=== PATIENT | female | born 1965 | race Caucasian/White ===

== ENCOUNTER 2017-05-04 21:43 | Emergency (ER) | payer OTHER ==
[~2017-05-04] VITALS: Ht 160 cm; Wt 85.3 kg
--- OUTSIDE RECORDS SUMMARY | ~2017-05-04 | XMS | Encounter Summary ---
Demographics + + + | Address | [address] | | | [place] [address] | + + + | Home Phone | | + + + | Preferred Language | Unknown | + + + | Marital Status | | + + + | Quaker Affiliation | NON | + + + | Race | White | + + + | Ethnic Group | Not or | + + + Author + + + | Author | [facility] | + + + | Organization | [facility] | + + + | Address | Unknown | + + + | Phone | Unavailable | + + + Support +------+ +---------+ + | Name | Relationship | Address | Phone | +------+ +---------+ + ECON | Unknown | | +------+ +---------+ + ECON | Unknown | | +------+ +---------+ + ECON | Unknown | | +------+ +---------+ + Care Team Providers + +------+-------+ | Care Home Security Professional Name | Role | Phone | + +------+-------+ | Saurav De Los Santos NP | PCP | tel | + +------+-------+ Reason for Visit + + + | Reason | Comments | + + + | Prior Authorization | | | Request | | + + + Encounter Details +--------+ + + + + | Date | Type | Department | Care Team | Description | +--------+ + + + + | 03/06/ | Telephone | Outpatient [facility] | [facility] | Prior Authorization | | 2017 | | [facility] | [address] | Request | | | | [address] | [facility], | | | | | [facility] | [place] [address] | | | | | [place], [place] | | | | | | [address] | | | +--------+ + + + [...]
--- OUTSIDE RECORDS SUMMARY | ~2017-05-04 | XMS | Encounter Summary ---
Demographics + + + | Address | [address] | | | [place] [address] | + + + | Home Phone | | + + + | Preferred Language | Unknown | + + + | Marital Status | | + + + | Evangelical Affiliation | NON | + + + | Race | White | + + + | Ethnic Group | Not or | + + + Author + + + | Author | [facility] | + + + | Organization | [facility] | + + + | Address | [...] Care Team Providers + +------+-------+ | Care Electro Mechanical Assembler Name | Role | Phone | + +------+-------+ | Saurav De Los Santos NP | PCP | tel | + +------+-------+ Reason for Visit + + + | Reason | Comments | + + + | AML - Acute myeloid | | | leukemia | | + + + AUTH/CERT +--------+--------+ + + + + | Status | Reason | Specialty | Diagnoses / | Referred By | Referred To | | | | | Procedures | Contact | Contact | +--------+--------+ + + + + | | | | | | | +--------+--------+ + + + + Encounter Details +--------+ + + + + | Date | Type | Department | Care Team | Description | +--------+ + + + + | 03/02/ | Hospital | [facility] [address] | Danie Parra V, | | | 2017 - | Encounter | [address] | Angela Johnson, | | | | | Road Mailcode: | MD Quinn Higgins | | | 04/01/ | | [id number] | [address] | | | 2017 | | [place], | [place], [place] | | | | | [place] [address] | [address] | | | | | [phone] | [phone] | | | | | | | | | | | | Kay Duarte MD | | | | | | [address] | | | | | | [address] [place], | | | | | | [place] [address] | | | | | | [phone] | | | | | | | | | | | | Naresh Moe, | | | | | | MD [address] | | | | | | [address] | | | | | | [place], [place] | | | | | | [address] | | | | | | [phone] | | | | | | | | | | | | Renea Bell MD | | | | | | Kar Aggarwal, | | | | | | [address] | | | | | | [place], [place] | | | | | | [address] | | | | | | [phone] | | | | | | | | +--------+ + + + [...] + + + as of this encounter Last Filed Vital Signs + + + + | Vital Sign | Reading | Time Taken | + + + + | Blood Pressure | 154/93 | 04/01/2017 2:36 PM PST | + + + + | Pulse | 91 | 04/01/2017 2:36 PM PST | + + + + | Temperature | 36.7 C (98.1 F) | 04/01/2017 2:36 PM PST | + + + + | Respiratory Rate | 16 | 04/01/2017 2:36 PM PST | + + + + | Oxygen Saturation | 95% | 04/01/2017 2:36 PM PST | + + + + | Inhaled Oxygen | - | - | | Concentration | | | + + + + | Weight | 84.2 kg (185 lb 10 | 04/01/2017 4:17 AM PST | | | oz) | | + + + + | Height | 160 cm (5' 3") | 03/02/2017 6:38 PM PDT | + + + + | Body Mass Index | 32.88 | 04/01/2017 4:17 AM PST | + + + + in this encounter Functional Status + + + [...] + + + as of this encounter Discharge Summaries Clarke Aguirre FNP - 04/01/2017 3:08 PM PSTFormatting of this note may be different fro m the original. 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 difficile colitis COPD (chronic obstructive pulmonary disease) Anxiety and depression SUMMARY OF PATIENT'S HOSPITALIZATION Hospital Course: Rhea Hutchison is a 51 yo F with relapsed AML, admitted for FLAG-Arlette + Midostaurin re-inductio n chemotherapy. Her hospital course was complicated by: pancytopenia, fever with pneumonia noted on ID work up, cellulitis, and mild chemotherapy induced nausea. Her counts are recov ering from recent chemotherapy, with an ANC of 490 of day of DC. She will continue daily Fi lgrastim through 04/02/17 and has been scheduled for a recovery BM Bx under sedation on and follow up visit with Dr. Goldberg on 04/09/17. 24 Hour Events/Current Daily Plan: -Relapsed AML: adm for FLAG-Arlette + Midostaurin re-induction, currently day 28. -Pancytopenia d/t chemo: WBC/ANC are recovering. Continue daily Filgrastim through 04/02 (p t to self administer at home). Standard transfusion parameters. Transfused 1 unit ppH today . -Non-Neutropenic Fever/Pneumonia: febrile on 03/02-03/04. Bld cxs negative, but CT chest 03/04 notable for extensive PNA. Received broadsectrum abx, last dose of Zosyn was 03/31. -SWAPNIL: mostly occurs in the morning. Conts Compazine qam. Other antiemetics available PRN -Lytes: standard repletion parameters. HypoK replacements required today. History of Present Illness: Rhea Hutchison is a 51 year old woman with history of COPD, depression, bladder spasms, hypoth yroidism and AML s/p induction 7+3+dasatinib and MiDAC consolidation (Apr 2016) who present s with AML recurrence. She is here with her and reports that she has had increasing diffuse body pains for approximately the past month. She was seen in her oncology clinic on 03/01 where she was noted to have a WBC 103K, up from her previously normal 5K in November. She reports that she has had increasing fatigue, nausea, vomiting, headache and now a sore at t he base of her inferior incisors in her mouth that occasionally bleed. She has also develop ed petechiae across her abdomen. She was admitted to [facility] where CXR was consistent with pulmonary leukostasis. Per Ca reEverywhere he labs were: WBC of 103,6000 (92% blasts) hgb 13.8 Hct 41.8%, Platelet count o f 10,000, Ldh 4427 U/L (ULN 215 U/L), Bun 14 mg/dL, Scr 0.82 mg/dL. She received fluids,hydroxyurea 2g q4hrs, 3L O2 per minute and a platelet transfusion prior to transfer. She reported no fevers but was febrile upon arrival at [facility]. Oncology History (adapted from prior heme/onc notes) Last seen at [facility] Apr 2016 for consolidation therapy but per OSH notes, she has had the fol lowing events: Jan 2016 emergent bone marrow bx: bone marrow biopsy and aspiration at [facility] on February 15, 2016 confirmed acute myelogenous leukemia, diploid, positive for FLT-3 tyrosine kinase domai n mutation (also positive for NPM1, DNMT3A, NRAS, NPM1 and TET2 mutations). Induction chemotherapy with conventional 7+3 cytarabine/idarubicin February 16, 2016 with co ntinuous daily dasatinib (Sprycel) complicated by fungal pneumonia, neutropenic fever, hidra denitis suppurativa, and Clostridium Difficile colitis. Repeat bone marrow biopsy on 2015 (day 28); First complete remission. 1. Cycle#3 MiDaC (1200 mg/m Cytarabine) consolidation at [facility] on May 28, 2016. 2. Cycle#4 MiDaC (1000 mg/m Cytarabine ) consolidation at [facility] on June 25, 2016. 3. Bone Marrow Biopsy and Aspiration July 23, 2016 at the [facility] in [place], [place] specimen # [id number] demonstrated ongoing complete remissio n. Molecular analysis was negative for any residual NPM1 mutation positive cells and negativ e for any FLT-3 mutation positive cells (sensitivity is 1 in 20,000). 4. CBC on December 25, 2016; WBC 5,000, Hgb 14.6 gm/dl, Hct 42.7, Platelet 138,000. 5. MRI of right hip on January 25, 2017 in anticipation of right hip replacement; numerou s subcentimeter round marrow repacing lesions within the visualized lower lumbar spine, pelv is, and femurs. 6. CT Chest/Abdomen/Pelvis on February 06, 2017; 3 cm left thyroid mass, no other suggestion of primary neoplasm. 7. Bone scan February 08, 2017; Normal. 8. PET/CT scan on February 27, 2017; diffuse uptake about the spleen and bone marrow. 9. CBC on March 01, 2017; WBC 103,5000 (92% blasts) Hgb 13.8, Hct 41.8%, Platelet count 1 0,000. [id number] U/L, BUN 14 mg/dL, Scr 0.82 mg/dL. Hospitalization History: Hematology: #Relapsed AML Pertinent Diagnostics: -BM Bx: no BM Bx done on admission as she had many peripheral blasts and requires sedation for biopsies -Peripheral blood flow sent 03/03/17: WBC>100K with ~90% blasts on presentation -Results: Acute myeloid leukemia, see comment -Immunophenotype: variable CD7, CD13, CD33, partial CD34, CD38, CD58, CD117, CD123 and HLA- DR -Leukocytosis with 78% blasts, normocytic anemia, and thrombocytopenia -Comment: Immunophenotypic shift is noted from the prior leukemic blast population. -Cytogenetics: 46,X,t(X;7)(q21;q32)[20] -Genetrails: FLT3 ITD 90%, DNMT3A 46%, and NPM1 44% -Scheduled for a recovery BM Bx under sedation on 04/04/17 Treatment: -Hydrea (03/02-03/05) for leukocytosis -Chemotherapy regimen: received , Flag-Arlette + Midostaurin, started 03/05/17 -Fludarabine 30mg/m2 (60mg) Daily, Days 1-5 -Idarubicin 8mg/m2 (16mg) Daily, Days 1-3 -Cytarabine 2000mg/m2 (4200mg) Daily, Days 1-5 -Midostaurin 50mg twice daily on Days 8-21 -Chemo Day: 28 Transplant: Indicated for transplant with diagnosis of relapsed AML however there may be psychosocial barriers to stem cell transplant. Plan to type sibs in meantime. #Pancytopenia d/t chemo -Antimicrobials as below -See supportive care #Bleeding: epistaxis and bleeding from LUE PICC insertion site (noted on 03/04), likely d/t profound thrombocytopenia: Resolved 03/07 with platelet transfusions, Vit K, and Tranexamic A rocky #Supportive Care: Growth factor: Daily Filgrastim as above per FLAG-Arlette protocol, last dose scheduled for 04/02/17 (pt to self administer) Labs: Continue to check CBC with diff 1-2 times a week Transfusion parameters: -Transfuse PRBCs for HCT <21% if asymptomatic -Transfuse PPH for platelet count <10,000 or sooner PRN s/s active bleeding Cardiovascular: TTE completed 03/04 with EF=70%. #HTN -Norvasc 10 mg daily -Lisinopril 5 mg daily, started 03/21 -Hydralazine PRN #Prolonged QTc: 563 on 03/02/17 -Monitor electrolytes and QTc prolonging medications closely Pulmonary: #Extensive PNA: see ID section below for details #COPD -Spiriva 18 mcg daily -Albuterol PRN GI: #SWAPNIL: mostly in AM -Compazine 5 mg qam #Hemorrhoid Pain -Hydrocortisone 2.5% cream TID PRN #GERD -Prilosec 20 mg qam : #Overactive Bladder: -Oxybutynin CR 15 mg daily Derm: #Rash: diffuse maculopapular rash noted ~03/21, likely d/t Cefepime. Resolved 03/30 after C efepime stopped and Hydrocortisone, Kenalog cream administered Neuro/Psych: #Depression/Anxiety -Cymbalta 30 mg BID, decreased d/t prolonged QTc -Lorazepam PRN for anxiety Endocrine: #Hypothyroidism: TSH 03/27 = 0.38, Free T4 = 1.4 -Synthroid 37.5 mcg daily, decreased 03/27 -Will need repeat TSH with reflex free T4 ~06/19/17 Infectious Disease: #Non-Neutropenic Fever/Pneumonia: febrile on 03/02-03/04. Bld cxs negative, but CT chest 03/04 notable for extensive PNA. Received broadsectrum abx, last dose of Zosyn was 03/31. -Cefepime (03/02-03/21), switched to Zosyn due to drug rash -Zosyn (03/21-03/31) #LUE PICC Cellulitis: (noted ~03/10): Resolved. Received Doxycycline (03/10-03/12) -> Vanco (03/12-03/22). PICC pulled 03/14 #Prophylaxis: Bacterial: As above Fungal: Posaconazole; (03/14/17) trough adequate @ 1.3 Viral: Acyclovir PCP: Pentamidine, last given 03/09/17 Fluid/Nutrition/Lytes: #Nutrition: Regular diet, No Madeline's yogurt or Kefir #Fluid: 1L NS bolus O/N for po intake <2L/day #Lytes: Continue to check chemistries 1-2 times a week. Replace per supportive care protoco l. DAY OF DISCHARGE Subjective: Continues to feel very well overall, ready for discharge. Objective: Last Vitals: BP 154/93 | Pulse 91 | Temp 36.7 C (98.1 F) | RR 16 | Ht 1.6 m (5' 3") | W t 84.2 kg (185 lb 10 oz) | SpO2 95% | BMI 32.88 kg/(m^2) 24 Hour Vital Min/Max: Systolic (24hrs), Av , Min:109 , Max:154 Diastolic (24hrs), Av, Min:65, Max:93 Pulse Min: 84 Max: 101 Temp Min: 36.5 C (97.7 F) Max: 37.9 C (100.2 F) Resp Min: 16 Max: 17 SpO2 Min: 92 % Max: 98 % Intake/Output Summary (Last 24 hours) at 04/01/17 1508 Last data filed at 04/01/17 1436 Gross per 24 hour Intake 1469 ml Output 3900 ml Net -2431 ml Physical Exam: General: This is a female in NAD. Ambulating in room. HEENT: PERRL. Mucosa pink and moist without erythema or exudate. Skin: No rash noted. Chest: Lungs clear to auscultation bilaterally. CV: RRR, no murmurs. Abdomen: S/NT/ND with NABS. No HSM appreciated. Extremities: Pulses strong and equal bilaterally. No c/c/e. Neuro/Psych: Alert and oriented x 3. Grossly nonfocal exam. CVC: Central line is a PICC catheter w/o induration or inflammation. Laboratory Results: Recent Labs 03/29/17235203/30/17233803/31/17 2301 NA 141 141 139 K 3.7 3.5 3.4 CL 105 106 103 BICARB 27 27 29 BUN 13 9 11 CR 0.65 0.76 0.74 GLU 106* 107* 113* CA 8.4* 8.3* 8.9 AST 20 24 21 ALT 40 45 47 AP 164* 160* 162* TBILI 0.4 0.5 0.5 TP 6.5 6.4 6.5 ALB 3.2* 3.1* 3.3* Recent Labs 03/06/17219903/29/17235203/30/17233803/31/17 2301 WBC 0.54* < > 0.29* 0.40* 0.59* RBC 2.21* < > 2.49* 2.44* 2.70* HB 7.1* < > 7.6* 7.4* 8.1* HCT 21.1* < > 21.4* 20.9* 22.7* PLT 23* < > 20* 13* 11* NEUTROPERC 38.7* -- -- 86.1* 83.3* LYMPHPERC 12.6* -- -- 7.8* 13.1* MONOPERC 1.8* -- -- 5.2 3.6 BASOPERC 0.0 -- -- 0.0 0.0 EOSPERC 0.0* -- -- 0.0* 0.0* < > = values in this interval not displayed. Discharge Medications: Medication List START taking these medications amLODIPine 10 mg Tab Commonly known as: NORVASC Take 1 tablet by mouth once daily. Indications: hypertension filgrastim-sndz 300 mcg/0.5 mL Syrg Commonly known as: ZARXIO Inject 0.5mL under the skin (SUBC) once for 1 dose. Inject once subcutaneously on 04/02/17 Indications: Neutropenia Secondary to AML Treatment lisinopril 5 mg Tab Commonly known as: PRINIVIL Take 1 tablet by mouth once daily. Indications: hypertension NOXAFIL 100 mg Tbec Generic drug: posaconazole DR DO NOT START UNTIL AFTER YOUR NEXT CYCLE OF CHEMO. When instructed, take 3 tablets by mouth twice a day for 2 doses. Then take 3 tablets once daily thereafter. Indications: Prevention of fungal infection while neutropenic prochlorperazine 5 mg Tab Commonly known as: COMPAZINE Take 1-2 tablets by mouth four times daily as needed for nausea/vomiting. Max dose 40 mg/da y. Indications: Cancer Chemotherapy-Induced Nausea and Vomiting PROCTOSOL HC 2.5 % Crpe Generic drug: hydrocortisone Apply to affected area three times daily as needed (hemorrhoid pain) Wash and dry the recta l area, gently massage a small amount into the affected area. Replaces: hydrocortisone 1 % Crpe RYDAPT 25 mg Cap Generic drug: midostaurin Take 2 capsules (50 mg) by mouth twice daily with meals. HOLD UNTIL YOUR NEXT CYCLE OF CHEM O. Take only on days 8-21 of each chemo cycle. Indications: acute myeloid leukemia with FLT3 mutation CHANGE how you take these medications acyclovir 800 mg Tab Commonly known as: ZOVIRAX Take 1 tablet by mouth once daily. Indications: viral infection prevention What changed: how much to take when to take this DULoxetine 30 mg Cpdr Commonly known as: CYMBALTA Take 1 capsule by mouth two times daily Indications: major depressive disorder What changed: how much to take when to take this levothyroxine 75 mcg Tab Take 0.5 tablets by mouth before breakfast. Indications: hypothyroidism What changed: medication strength how much to take when to take this oxybutynin CR 15 mg Tr24 Commonly known as: DITROPAN-XL What changed: how much to take how to take this when to take this Another medication with the same name was removed. Continue taking this medication, and follow the directions you see here. oxyCODONE (immediate release) 5 mg Tab Commonly known as: ROXICODONE Take 1 to 2 tablets by mouth every six hours as needed for moderate pain. What changed: how much to take traZODone 50 mg Tab Commonly known as: DESYREL Take 0.5-1 tablets by mouth once daily at bedtime as needed. Indications: insomnia associat ed with depression What changed: medication strength how much to take when to take this reasons to take this CONTINUE taking these medications LORazepam 0.5 mg Tab Commonly known as: ATIVAN Take 1 tablet by mouth every eight hours as needed for Nausea/Vomiting. omeprazole 20 mg Cpdr Commonly known as: PRILOSEC ondansetron 4 mg Tab Commonly known as: ZOFRAN Take 1 to 2 tablets by mouth every twelve hours as needed for nausea/vomiting. tiotropium 18 mcg Cpdv Commonly known as: SPIRIVA VENTOLIN HFA 90 mcg/actuation Hfaa Generic drug: albuterol Inhale 1 puff by mouth every six hours as needed (shortness of breath, wheezing). Indicatio ns: ACUTE ASTHMA ATTACK STOP taking these medications CALCIUM ANTACID 200 mg elemental (500 mg total salt) Chew Generic drug: calcium carbonate chewable dronabinol 10 mg Cap Commonly known as: MARINOL hydrocortisone 1 % Crpe Commonly known as: PROCTOCORT Replaced by: PROCTOSOL HC 2.5 % Crpe nystatin 100,000 unit/mL Susp Commonly known as: MYCOSTATIN prednisoLONE acetate 1 % Drps Commonly known as: PRED FORTE salmeterol 50 mcg/dose Dsdv Commonly known as: SEREVENT Allergies: Allergies Allergen Reactions Morphine Rash and Facial Swelling Rash and facial swelling Opioids - Morphine Analogues Confusion Cefepime Rash Code Status: Full POLST completed: no Additional Instructions: Activity Activity restrictions: - Avoid large crowds and people that are obviously ill. - Practice good hand washing hygiene. - Wear a mask when you are coming in and out of clinic or in a crowded or poorly ventilated place. You do not need to wear a mask around family/friends, in a well-ventilated public ar ea or outside unless you are in a construction area that may have dust/dirt particles in the air. - No driving when using narcotics or sedating medications. - Careful with physical activity when your platelets are low to prevent bleeding.Toothbrush is okay to use when Neutrophils are >1500 and platelets are >50,000. Flossing is okay with neutrophils are greater than 1500 and platelets are > 100,000. - Contact with pets (but not feces) is safe with the exception of reptiles, amphibians, and birds. - Skin Care: Sun block with >15 SPF should be worn at all times of sun exposure. Skin is more sensitive to sun exposure after radiation or chemotherapy. OTHER DISCHARGE ORDERS & INSTRUCTIONS Call the BMT clinic ([phone]) or BMT person on-call ([phone]) for: Any temp > 100.4 Nausea/vomiting unresponsive to anti-nausea medications Significant diarrhea despite Imodium Inability to drink at least 2 liters of fluid daily You develop a rash Bleeding Over the counter Medication- use as needed: __ Benadryl (Diphenhydramine) 25 mg by mouth every 6 hours as needed for sleep, itching, na usea or restlessness. __ Antacids - One ounce or one tablet every 2-4 hours as needed for heartburn. Call your d octor if heartburn persists or isn't relieved with this medication. __ Anusol Cream - Apply a small amount to external rectal area as needed for hemorrhoidal d iscomfort. Do not apply internally. Call your doctor for persistent discomfort, bleeding o r pain. __ Lubriderm lotion - apply to skin twice a day as needed to treat dry skin __ Eucerin Cream - apply to skin twice a day as needed to treat dry skin. __ Sunscreen - as needed SPF 15 or greater. Apply to sun-exposed skin before exposure to direct sunlight or outside activities. Follow Up: Future Appointments Provider Department Dept Phone Center 04/04/2017 9:00 AM [facility] FAST TRACK Center for H[facility]ologic Malignancies at [facility] [phone] C enter for H 04/04/2017 10:00 AM PCU ROOM 08 Procedural Care Unit at [facility] [phone] PC 04/04/2017 11:00 AM Monica Flor [facility] at [facility] [phone] Center for H 04/09/2017 1:00 PM [facility] INFUSION NURSE; [facility] INFUSION Center for H[facility]ologic Malignancies at [facility] [phone] Center for H 04/09/2017 3:05 PM Angela Goldberg; [facility] MA SUPPORT Center for Hematologic Malignancies at [facility] [phone] Center for H ISIDRO Root [facility] Mailcode: [id number] [place] [address] I spent >30 minutes in discharge planning, meds, and follow-up in this encounter Discharge Instructions Reji Daugherty RN - 04/01/2017Check your oral temperature twice a day and whenever you feel like you may have chills or a fever. Drink at least 2 Liters of fluids per day to prevent dehydration. Create a food and fluids journal to track your intake and bring it with you to your clinic appointments. Shower daily and WASH YOUR HANDS frequently. Avoid the use of potentially irritating skin products (perfume, cologne, scented lotions, e tc.) Rinse out your mouth with normal saline or salt water at least 4x/day. Make sure to brush your teeth at least 2x/day and as needed after meals (if your platelets are <50K, use a soft toothbrush and do not floss). Cover your central line when showering/bathing (avoid swimming pools, hot tubs, saunas, and whirlpools until your CVC is removed). Refrain from prolonged periods of time in the sun and make sure you ALWAYS wear sunscreen w hen outdoors. Clean surfaces with antibacterial wipes. No plants or cavazos until approved by provider. Wear a mask when around large groups of people. NO SICK CONTACTS! If this cannot be avoided and you suspect someone may be even mildly ill, have them wear a mask or wear one yourself. Stay active! Perform short periods of activity, then make sure to take time for rest. Call if you have any questions! [facility] ([facility]) during clinic hours (M-F 8:30-4:30): [phone] [facility] CL[facility]IC ([facility]) at all other times: [phone] 14KPV: [phone] How was your stay with us? Is there anything we could have done differently to improve your time here on 14K?in this e ncounter Medications at Time of Discharge + + + +---------+ + + | Medication | Sig. | Disp. | Refills | Start | End Date | | | | | | Date | | + + + +---------+ + + | filgrastim-sndz | Inject 0.5mL under | 0.5 mL | 0 | 04/01/20 | | | (ZARXIO) 300 mcg/0.5 | the skin (SUBC) once | | | 17 | 7 | | mL injection | for 1 dose. Inject | | | | | | syringeIndications: | once subcutaneously | | | | | | Neutropenia | on 04/02/17 | | | | | | Secondary to AML | Indications: | | | | | | Treatment | Neutropenia | | | | | | | Secondary to AML | | | | | | | Treatment | | | | | + + + +---------+ + + as of this encounter Progress Notes Kar Aggarwal MD - 04/01/2017 10:07 AM PSTFormatting of this note may be different fro m the original. Hematologic Malignancies/Blood and marrow Transplant Attending Note I have personally seen and examined Mrs. Gotti with the NICOLE today and I agree with the findi ngs and plans as outlined in her note today. Patients Hospital Problem List: Active Hospital Problems 1) *Acute myeloid leukemia not having achieved remission (HCC) 2) COPD (chronic obstructive pulmonary disease) (HCC) 3) Anxiety and depression 4) Learning disability 5) Neutropenic fever (HCC) 6) Abnormal CXR 7) Local infection due to PICC (peripherally inserted central catheter) 8) poor dentition 9) Hypoalbuminemia 10) immunocompromised host Subjective: Feels great Objective: Last Vitals: BP 145/92 | Pulse 99 | Temp 37.9 C (100.2 F) | RR 16 | Ht 1.6 m (5' 3") | Wt 84.2 kg (185 lb 10 oz) | SpO2 94% | BMI 32.88 kg/(m^2) 24 Hour Vital Min/Max: Systolic (24hrs), Av , Min:109 , Max:157 Diastolic (24hrs), Av, Min:65, Max:92 Pulse Min: 86 Max: 101 Temp Min: 36.5 C (97.7 F) Max: 37.9 C (100.2 F) Resp Min: 16 Max: 17 SpO2 Min: 92 % Max: 98 % Intake/Output Summary (Last 24 hours) at 04/01/17 1007 Last data filed at 04/01/17 0922 Gross per 24 hour Intake 905 ml Output 3400 ml Net -2495 ml ANC 490 plt 11 Brief assessment/plan: The major issues that I am directly managing that require continued hospital admission incl ude: Relapsed AML: s/p FLAG-ARLETTE + Mido (through day 21) Counts recovering nicely. Is stable for DC home. Has follow up marrow planned for . I spent < 30 minutes on the DC of this patient. KAR AGGARWAL MD mechanical systems design engineer [facility] Center for Hematologic Malignancies [facility] [place] [email or web address] [phone] Kar Aggarwal MD - 03/31/2017 11:02 AM PSTFormatting of this note may be different fro m the original. Hematologic Malignancies/Blood and marrow Transplant Attending Note I have personally seen and examined Mrs. Gotti with the NICOLE today and I agree with the findi ngs and plans as outlined in her note today. Patients Hospital Problem List: Active Hospital Problems 1) *Acute myeloid leukemia not having achieved remission (HCC) 2) COPD (chronic obstructive pulmonary disease) (HCC) 3) Anxiety and depression 4) Learning disability 5) Neutropenic fever (HCC) 6) Abnormal CXR 7) Local infection due to PICC (peripherally inserted central catheter) 8) poor dentition 9) Hypoalbuminemia 10) immunocompromised host Subjective: doing well. Mild nausea. Objective: Last Vitals: BP 133/88 | Pulse 94 | Temp 36.6 C (97.9 F) | RR 16 | Ht 1.6 m (5' 3") | W t 85.5 kg (188 lb 7.9 oz) | SpO2 95% | BMI 33.39 kg/(m^2) 24 Hour Vital Min/Max: Systolic (24hrs), Av , Min:129 , Max:154 Diastolic (24hrs), Av, Min:65, Max:94 Pulse Min: 84 Max: 100 Temp Min: 36.5 C (97.7 F) Max: 36.7 C (98.1 F) Resp Min: 16 Max: 16 SpO2 Min: 93 % Max: 97 % Intake/Output Summary (Last 24 hours) at 03/31/17 1103 Last data filed at 03/31/17 0900 Gross per 24 hour Intake 3440 ml Output 3400 ml Net 40 ml Brief assessment/plan: The major issues that I am directly managing that require continued hospital admission incl ude: 1. Relapsed AML: s/p FLAG-ARLETTE + Mido (through day 21) -Day 27. ANC in 300s contiues on neupogen 2. Neutropenic fever : DC Zosyn as ANC recovering -prophylactic antimicrobials 3. Multifocal pna-improved 4. Nausea: well controlled-Continue anti-emetics. 5. Possible D/C tomorrow continue supportive Care as outlined in our orders and NICOLE note KAR AGGARWAL MD mechanical systems design engineer [facility] Center for Hematologic Malignancies [facility] [place] [email or web address] [phone] Leah Villareal [facility] - 03/31/2017 10:43 AM PSTFormatting of this note may be differe nt from the original. Daily NICOLE Note - Hematologic Malignancies/Chemo Admit [facility]ign[facility] Attending: Kar Aggarwal MD [facility] [place] MD: Angela Goldberg MD Local Oncologist: Dr. Patterson PCP: Saurav De Los Santos NP Date of Admission: 03/02/17 Hematologic Malignancy: AML ID: 51yo woman with relapsed AML admitted for treatment. PMH includes COPD, depression/anxi ety, learning disability, bladder spasms and hypothyroidism. 24 Hour Events/Current Daily Plan: -Relapsed AML: Adm for FLAG-Arlette + Midostaurin reinduction. Now awaiting count recovery. -Pancytopenia d/t chemo: ANC 340 today. Standard transfusion parameters. Transfused 1 unit PRBCs today -Non-Neutropenic Fever (noted 03/02-03/04), possibly d/t disease vs Extensive PNA (confirmed on 03/04 CT): OK to STOP Zosyn today as pt received Cefepime + Zosyn for PNA and counts recov ering. -SWAPNIL: Mostly occurs in the morning. Conts Compazine qam. Haldol, Ativan, Zofran, Compazine PRN -Lytes: standard repletion parameters. No replacements today -Dispo: Plan to DC home tomorrow (may need PPH prior to DC as next infusion appt not until , 04/04). Will need to touch base with SW re: getting a ride to her car at Dr. Yony weber's office. -Scheduled for recovery BMBx under conscious sedation on 04/04 -F/U with Dr. Goldberg on 04/09 Subjective: Feeling well overall but continues to have occasional nausea. Excited about dis charge tomorrow. Objective: Last Vitals: BP 133/88 | Pulse 94 | Temp 36.6 C (97.9 F) | RR 16 | Ht 1.6 m (5' 3") | W t 85.5 kg (188 lb 7.9 oz) | SpO2 95% | BMI 33.39 kg/(m^2) 24 Hour Vital Min/Max: Systolic (24hrs), Av , Min:129 , Max:154 Diastolic (24hrs), Av, Min:65, Max:94 Pulse Min: 84 Max: 100 Temp Min: 36.5 C (97.7 F) Max: 36.7 C (98.1 F) Resp Min: 16 Max: 16 SpO2 Min: 93 % Max: 97 % Intake/Output Summary (Last 24 hours) at 03/31/17 1043 Last data filed at 03/31/17 0900 Gross per 24 hour Intake 3440 ml Output 3400 ml Net 40 ml Physical Exam: General: This is a female in [place]. HEENT: PERRL. Scleral hemorrhages bilaterally. Mucosa pink and moist without erythema or exudate. Skin: No rash noted. Round, erythematous patches x2 on LLE (first noted ~03/28/17) Chest: CTA bilaterally CV: RRR, no murmurs. Abdomen: S/NT/ND with NABS. No HSM appreciated. Extremities: Pulses strong and equal bilaterally. No c/c/e. NeuroPsych: Alert and oriented x 3. Grossly nonfocal exam. CVC: Left arm erythema with firm nodule at prior PICC insertion site. Right PICC CDI Recent Labs 03/28/17232703/29/17235203/30/17 2339 NA 140 141 141 K 3.7 3.7 3.5 CL 105 105 106 BICARB 27 27 27 BUN 13 13 9 CR 0.70 0.65 0.76 GLU 109* 106* 107* CA 8.8 8.4* 8.3* AST 21 20 24 ALT 41 40 45 AP 159* 164* 160* TBILI 0.5 0.4 0.5 TP 6.6 6.5 6.4 ALB 3.3* 3.2* 3.1* Recent Labs 03/06/1722603/06/17219903/28/17232703/29/17235203/30/17 2339 WBC 3.38* < > 0.54* < > 0.27* 0.29* 0.40* RBC 2.66* < > 2.21* < > 2.62* 2.49* 2.44* HB 8.6* < > 7.1* < > 8.0* 7.6* 7.4* HCT 25.0* < > 21.1* < > 22.4* 21.4* 20.9* PLT 26* < > 23* < > 7* 20* 13* NEUTROPERC 36.2* -- 38.7* -- -- -- 86.1* LYMPHPERC 18.4 -- 12.6* -- -- -- 7.8* MONOPERC 3.3* -- 1.8* -- -- -- 5.2 BASOPERC 0.0 -- 0.0 -- -- -- 0.0 EOSPERC 0.0* -- 0.0* -- -- -- 0.0* < > = values in this interval not displayed. Meds: Reviewed on rounds, see current MAR for medication list SUMMARY OF PATIENT'S HOSPITALIZATION Past Medical History: Rhea Hutchison is a 50 year old woman with history of COPD, depression, bladder spasms, hypoth yroidism and AML s/p induction 7+3+dasatinib and MiDAC consolidation (Apr 2016) who present s with AML recurrence. She is here with her and reports that she has had increasing diffuse body pains for approximately the past month. She was seen in her oncology clinic on 03/01 where she was noted to have a WBC 103K, up from her previously normal 5K in November. She reports that she has had increasing fatigue, nausea, vomiting, headache and now a sore at t he base of her inferior incisors in her mouth that occasionally bleed. She has also develop ed petechiae across her abdomen. She was admitted to [facility] where CXR was consistent with pulmonary leukostasis. Per Ca reEverywhere he labs were: WBC of 103,6000 (92% blasts) hgb 13.8 Hct 41.8%, Platelet count o f 10,000, Ldh 4427 U/L (ULN 215 U/L), Bun 14 mg/dL, Scr 0.82 mg/dL. She received fluids,hydroxyurea 2g q4hrs, 3L O2 per minute and a platelet transfusion prior to transfer. She reported no fevers but was febrile upon arrival at [facility]. Review of Systems: Positive for fatigue, night sweats, intermittent non-productive cough, d ecreased appetite, constipation, rash on abdomen, bleeding in mouth Oncology History (adapted from prior heme/onc notes) Last seen at [facility] Apr 2016 for consolidation therapy but per OSH notes, she has had the fol lowing events: Jan 2016 emergent bone marrow bx: bone marrow biopsy and aspiration at [facility] on February 15, 2016 confirmed acute myelogenous leukemia, diploid, positive for FLT-3 tyrosine kinase domai n mutation (also positive for NPM1, DNMT3A, NRAS, NPM1 and TET2 mutations). Induction chemotherapy with conventional 7+3 cytarabine/idarubicin February 16, 2016 with co ntinuous daily dasatinib (Sprycel) complicated by fungal pneumonia, neutropenic fever, hidra denitis suppurativa, and Clostridium Difficile colitis. Repeat bone marrow biopsy on 2015 (day 28); First complete remission. 1. Cycle#3 MiDaC (1200 mg/m Cytarabine) consolidation at [facility] on May 28, 2016. 2. Cycle#4 MiDaC (1000 mg/m Cytarabine ) consolidation at [facility] on June 25, 2016. 3. Bone Marrow Biopsy and Aspiration July 23, 2016 at the [facility] in [place], [place] specimen # [id number] demonstrated ongoing complete remissio n. Molecular analysis was negative for any residual NPM1 mutation positive cells and negativ e for any FLT-3 mutation positive cells (sensitivity is 1 in 20,000). 4. CBC on December 25, 2016; WBC 5,000, Hgb 14.6 gm/dl, Hct 42.7, Platelet 138,000. 5. MRI of right hip on January 25, 2017 in anticipation of right hip replacement; numerou s subcentimeter round marrow repacing lesions within the visualized lower lumbar spine, pelv is, and femurs. 6. CT Chest/Abdomen/Pelvis on February 06, 2017; 3 cm left thyroid mass, no other suggestion of primary neoplasm. 7. Bone scan February 08, 2017; Normal. 8. PET/CT scan on February 27, 2017; diffuse uptake about the spleen and bone marrow. 9. CBC on March 01, 2017; WBC 103,5000 (92% blasts) Hgb 13.8, Hct 41.8%, Platelet count 1 0,000. [id number] U/L, BUN 14 mg/dL, Scr 0.82 mg/dL. Hospitalization History: Hematology: #Relapsed AML Pertinent Diagnostics: BM Bx: No BMBx done on admission as she has many peripheral blasts and requires gener al anesthesia for biopsies Peripheral blood flow: sent 03/03/17, WBC>100K with ~90% blasts on presentation -Results: Acute myeloid leukemia, see comment -Immunophenotype: variable CD7, CD13, CD33, partial CD34, CD38, CD58, CD117, CD123 and H LA-DR -Leukocytosis with 78% blasts, normocytic anemia, and thrombocytopenia -Comment: Immunophenotypic shift is noted from the prior leukemic blast population. -Cytogenetics: 46,X,t(X;7)(q21;q32)[20] -Genetrails: FLT3 ITD 90%, DNMT3A 46%, and NPM1 44% Treatment: -Hydrea (03/02-03/05) for leukocytosis -Chemotherapy regimen: received , Flag-Arlette + Midostaurin, started 03/05/17 -Fludarabine 30mg/m2 (60mg) Daily, Days 1-5 -Idarubicin 8mg/m2 (16mg) Daily, Days 1-3 -Cytarabine 2000mg/m2 (4200mg) Daily, Days 1-5 -Midostaurin 50mg twice daily on Days 8-21 Chemo Day: 27 Transplant: Indicated for transplant with diagnosis of relapsed AML however there may be psychosocial barriers to stem cell transplant. Plan to type sibs in meantime. #Pancytopenia d/t chemo -Antimicrobials as below -See supportive care #Supportive Care: Growth factor: Daily Filgrastim as above per FLAG-Arlette protocol Labs: Continue to check CBC with diff daily Transfusion parameters: -Transfuse PRBCs for HCT <21% if asymptomatic -Transfuse PPH for platelet count <10,000 or sooner PRN s/s active bleeding #Epistaxis, Bleeding from LUE PICC insertion site (noted on 03/04), likely d/t Profound Thro mbocytopenia: Resolved 03/07 with PPH, Vit K, and Tranexamic Acid Cardiovascular: TTE completed 03/04 with EF=70%. #HTN -Norvasc 10 mg daily -Lisinopril 5 mg daily, started 03/21 -Hydralazine PRN #Prolonged QTc (563 on 03/02/17) -Will monitor electrolytes and QTc prolonging medications closely Pulmonary: #Extensive PNA (confirmed on 03/04 CT): See ID section #COPD -Spiriva 18 mcg daily -Albuterol PRN GI: #SWAPNIL: Mostly in AM -Compazine 5 mg qam #Hemorrhoid Pain -Hydrocortisone 2.5% cream TID PRN #GERD -Prilosec 20 mg qam : #OAB -Oxybutynin CR 15 mg daily Derm: #Diffuse Maculopapular Rash (noted ~03/21), likely d/t Cefepime: Resolved 03/30 after Cefepi me stopped and Hydrocortisone, Kenalog cream administered Neuro/Psych: #Depression/Anxiety -Cymbalta 30 mg BID, decreased d/t prolonged QTc -Social work following -Lorazepam PRN anxiety Endocrine: #Hypothyroidism: (03/27) TSH = 0.38, Free T4 = 1.4 -Synthroid 37.5 mcg daily, decreased 03/27 -Will need repeat TSH with reflex free T4 ~06/19/17 Infectious Disease: #Non-Neutropenic Fever (noted 03/02-03/04), possibly d/t disease vs Extensive PNA (confirmed on 03/04 CT): Resolved. Received Cefepime (03/02-03/21; switched to Zosyn d/t drug rash) -> Zo syn (03/21-03/31) #LUE PICC Cellulitis (noted ~03/10): Resolved. Received Doxycycline (03/10-03/12) -> Vanco (03/12-03/22). PICC pulled 03/14 #Prophylaxis: Bacterial: As above Fungal: Posaconazole; (03/14/17) trough adequate @ 1.3 Viral: Acyclovir PCP: Pentamidine given 03/09/17 Fluid/Nutrition/Lytes: #Nutrition: Regular diet, No Madeline's yogurt or Kefir #Fluid: 1L NS bolus O/N for po intake <2L/day #Lytes: Continue to check chemistries daily. Replace per supportive care protocol. ISIDRO Davies [address] Mailcode: [place] [address] Leah Villareal FNP - 03/30/2017 2:56 PM PSTFormatting of this note may be differe nt from the original. Daily NICOLE Note - Hematologic Malignancies/Chemo Admit Center for Hematologic Malignancies Attending: Kar Aggarwal MD [facility] [place] MD: Angela Goldberg MD PCP: Saurav De Los Santos NP Date of Admission: 03/02/17 Hematologic Malignancy: AML ID: 51yo woman with relapsed AML admitted for treatment. PMH includes COPD, depression/anxi ety, learning disability, bladder spasms and hypothyroidism. 24 Hour Events/Current Daily Plan: -Relapsed AML: Adm for FLAG-Arlette + Midostaurin reinduction. Now awaiting count recovery. -Pancytopenia d/t chemo: Standard transfusion parameters. No transfusions indicated today. -Non-Neutropenic Fever (noted 03/02-03/04), possibly d/t disease vs Extensive PNA (confirmed on 03/04 CT): Conts Zosyn (03/21- ) -Skin Rash, likely d/t Cefepime: Resolved. DC Hydrocortisone 1% cream and switch Kenalog cr eam to PRN. -Hemorrhoid Pain: Will make Hydrocortisone 2.5% cream available PRN -SWAPNIL: Mostly occurs in the morning. Conts Compazine qam. Haldol, Ativan, Zofran, Compazine PRN -Lytes: standard repletion parameters. No replacements today Subjective: Feeling well overall but continues to have morning nausea, no longer with a jose miguel h. Objective: Last Vitals: BP 144/94 | Pulse 84 | Temp 36.5 C (97.7 F) | RR 16 | Ht 1.6 m (5' 3") | W t 84.6 kg (186 lb 8.2 oz) | SpO2 97% | BMI 33.04 kg/(m^2) 24 Hour Vital Min/Max: Systolic (24hrs), Av , Min:127 , Max:161 Diastolic (24hrs), Av, Min:67, Max:94 Pulse Min: 84 Max: 92 Temp Min: 36.5 C (97.7 F) Max: 36.8 C (98.2 F) Resp Min: 16 Max: 16 SpO2 Min: 91 % Max: 97 % Intake/Output Summary (Last 24 hours) at 03/30/17 1456 Last data filed at 03/30/17 1000 Gross per 24 hour Intake 4650 ml Output 2425 ml Net 2225 ml Physical Exam: General: This is a female in [facility]. HEENT: PERRL. Scleral hemorrhages bilaterally. Mucosa pink and moist without erythema or exudate. Skin: No rash noted. Round, erythematous patches x2 on LLE (first noted ~03/28/17) Chest: CTA bilaterally CV: RRR, no murmurs. Abdomen: S/NT/ND with NABS. No HSM appreciated. Extremities: Pulses strong and equal bilaterally. No c/c/e. NeuroPsych: Alert and oriented x 3. Grossly nonfocal exam. CVC: Left arm erythema with firm nodule at prior PICC insertion site. Right PICC CDI Recent Labs 03/27/17 2314 03/28/17 2328 03/29/17 2353 NA 141 140 141 K 3.9 3.7 3.7 CL 105 105 105 BICARB 28 27 27 BUN 12 13 13 CR 0.68 0.70 0.65 GLU 103* 109* 106* CA 8.9 8.8 8.4* AST 21 21 20 ALT 41 41 40 AP 159* 159* 164* TBILI 0.6 0.5 0.4 TP 6.7 6.6 6.5 ALB 3.4* 3.3* 3.2* Recent Labs 03/04/17 2330 03/06/17 0227 03/06/17 2200 03/27/17 2314 03/28/17 2328 03/29/17 2353 WBC 7.66 < > 3.38* < > 0.54* < > 0.16* 0.27* 0.29* RBC 2.72* < > 2.66* < > 2.21* < > 2.64* 2.62* 2.49* HB 8.5* < > 8.6* < > 7.1* < > 8.2* 8.0* 7.6* HCT 25.6* < > 25.0* < > 21.1* < > 22.9* 22.4* 21.4* PLT 5* < > 26* < > 23* < > 12* 7* 20* NEUTROPERC 10.5* -- 36.2* -- 38.7* -- -- -- -- LYMPHPERC 14.9* -- 18.4 -- 12.6* -- -- -- -- MONOPERC 7.0 -- 3.3* -- 1.8* -- -- -- -- BASOPERC 0.0 -- 0.0 -- 0.0 -- -- -- -- EOSPERC 0.0* -- 0.0* -- 0.0* -- -- -- -- < > = values in this interval not displayed. Meds: Reviewed on rounds, see current MAR for medication list SUMMARY OF PATIENT'S HOSPITALIZATION Past Medical History: Rhea Hutchison is a 50 year old woman with history of COPD, depression, bladder spasms, hypoth yroidism and AML s/p induction 7+3+dasatinib and MiDAC consolidation (Apr 2016) who present s with AML recurrence. She is here with her and reports that she has had increasing diffuse body pains for approximately the past month. She was seen in her oncology clinic on 03/01 where she was noted to have a WBC 103K, up from her previously normal 5K in November. She reports that she has had increasing fatigue, nausea, vomiting, headache and now a sore at t he base of her inferior incisors in her mouth that occasionally bleed. She has also develop ed petechiae across her abdomen. She was admitted to [facility] where CXR was consistent with pulmonary leukostasis. Per Ca reEverywhere he labs were: WBC of 103,6000 (92% blasts) hgb 13.8 Hct 41.8%, Platelet count o f 10,000, Ldh 4427 U/L (ULN 215 U/L), Bun 14 mg/dL, Scr 0.82 mg/dL. She received fluids,hydroxyurea 2g q4hrs, 3L O2 per minute and a platelet transfusion prior to transfer. She reported no fevers but was febrile upon arrival at [facility]. Review of Systems: Positive for fatigue, night sweats, intermittent non-productive cough, d ecreased appetite, constipation, rash on abdomen, bleeding in mouth Oncology History (adapted from prior heme/onc notes) Last seen at [facility] Apr 2016 for consolidation therapy but per OSH notes, she has had the fol lowing events: Jan 2016 emergent bone marrow bx: bone marrow biopsy and aspiration at [facility] on February 15, 2016 confirmed acute myelogenous leukemia, diploid, positive for FLT-3 tyrosine kinase domai n mutation (also positive for NPM1, DNMT3A, NRAS, NPM1 and TET2 mutations). Induction chemotherapy with conventional 7+3 cytarabine/idarubicin February 16, 2016 with co ntinuous daily dasatinib (Sprycel) complicated by fungal pneumonia, neutropenic fever, hidra denitis suppurativa, and Clostridium Difficile colitis. Repeat bone marrow biopsy on 2015 (day 28); First complete remission. 1. Cycle#3 MiDaC (1200 mg/m Cytarabine) consolidation at [facility] on May 28, 2016. 2. Cycle#4 MiDaC (1000 mg/m Cytarabine ) consolidation at [facility] on June 25, 2016. 3. Bone Marrow Biopsy and Aspiration July 23, 2016 at the [facility] in [place], [place] specimen # [id number] demonstrated ongoing complete remissio n. Molecular analysis was negative for any residual NPM1 mutation positive cells and negativ e for any FLT-3 mutation positive cells (sensitivity is 1 in 20,000). 4. CBC on December 25, 2016; WBC 5,000, Hgb 14.6 gm/dl, Hct 42.7, Platelet 138,000. 5. MRI of right hip on January 25, 2017 in anticipation of right hip replacement; numerou s subcentimeter round marrow repacing lesions within the visualized lower lumbar spine, pelv is, and femurs. 6. CT Chest/Abdomen/Pelvis on February 06, 2017; 3 cm left thyroid mass, no other suggestion of primary neoplasm. 7. Bone scan February 08, 2017; Normal. 8. PET/CT scan on February 27, 2017; diffuse uptake about the spleen and bone marrow. 9. CBC on March 01, 2017; WBC 103,5000 (92% blasts) Hgb 13.8, Hct 41.8%, Platelet count 1 0,000. [id number] U/L, BUN 14 mg/dL, Scr 0.82 mg/dL. Hospitalization History: Hematology: #Relapsed AML Pertinent Diagnostics: BM Bx: No BMBx done on admission as she has many peripheral blasts and requires gener al anesthesia for biopsies Peripheral blood flow: sent 03/03/17, WBC>100K with ~90% blasts on presentation -Results: Acute myeloid leukemia, see comment -Immunophenotype: variable CD7, CD13, CD33, partial CD34, CD38, CD58, CD117, CD123 and H LA-DR -Leukocytosis with 78% blasts, normocytic anemia, and thrombocytopenia -Comment: Immunophenotypic shift is noted from the prior leukemic blast population. -Cytogenetics: 46,X,t(X;7)(q21;q32)[20] -Genetrails: FLT3 ITD 90%, DNMT3A 46%, and NPM1 44% Treatment: -Hydrea (03/02-03/05) for leukocytosis -Chemotherapy regimen: received , Flag-Arlette + Midostaurin, started 03/05/17 -Fludarabine 30mg/m2 (60mg) Daily, Days 1-5 -Idarubicin 8mg/m2 (16mg) Daily, Days 1-3 -Cytarabine 2000mg/m2 (4200mg) Daily, Days 1-5 -Midostaurin 50mg twice daily on Days 8-21 Chemo Day: 26 Transplant: Indicated for transplant with diagnosis of relapsed AML however there may be psychosocial barriers to stem cell transplant. Plan to type sibs in meantime. #Pancytopenia d/t chemo -Antimicrobials as below -See supportive care #Supportive Care: Growth factor: Daily Filgrastim as above per FLAG-Arlette protocol Labs: Continue to check CBC with diff daily Transfusion parameters: -Transfuse PRBCs for HCT <21% if asymptomatic -Transfuse PPH for platelet count <10,000 or sooner PRN s/s active bleeding #Epistaxis, Bleeding from LUE PICC insertion site (noted on 03/04), likely d/t Profound Thro mbocytopenia: Resolved 03/07 with PPH, Vit K, and Tranexamic Acid Cardiovascular: TTE completed 03/04 with EF=70%. #HTN -Norvasc 10 mg daily -Lisinopril 5 mg daily, started 03/21 -Hydralazine PRN #Prolonged QTc (563 on 03/02/17) -Will monitor electrolytes and QTc prolonging medications closely Pulmonary: #Extensive PNA (confirmed on 03/04 CT): See ID section #COPD -Spiriva 18 mcg daily -Albuterol PRN GI: #SWAPNIL: Mostly in AM -Compazine 5 mg qam #Hemorrhoid Pain -Hydrocortisone 2.5% cream TID PRN #GERD -Prilosec 20 mg qam : #OAB -Oxybutynin CR 15 mg daily Derm: #Diffuse Maculopapular Rash (noted ~03/21), likely d/t Cefepime: Resolved 03/30 after Cefepi me stopped and Hydrocortisone, Kenalog cream administered Neuro/Psych: #Depression/Anxiety -Cymbalta 30 mg BID -Social work following -Lorazepam PRN anxiety Endocrine: #Hypothyroidism: (03/27) TSH = 0.38, Free T4 = 1.4 -Synthroid 37.5 mcg daily, decreased 03/27 -Will need repeat TSH with reflex free T4 ~06/19/17 Infectious Disease: #Non-Neutropenic Fever (noted 03/02-03/04), possibly d/t disease vs Extensive PNA (confirmed on 03/04 CT): -Zosyn (03/21- ) -Cefepime (03/02-03/21), switched to Zosyn d/t drug rash #LUE PICC Cellulitis (noted ~03/10): Resolved. Received Doxycycline (03/10-03/12) -> Vanco (03/12-03/22). PICC pulled 03/14 #Prophylaxis: Bacterial: As above Fungal: Posaconazole; (03/14/17) trough adequate @ 1.3 Viral: Acyclovir PCP: Pentamidine given 03/09/17 Fluid/Nutrition/Lytes: #Nutrition: Regular diet, No Madeline's yogurt or Kefir #Fluid: 1L NS bolus O/N for po intake <2L/day #Lytes: Continue to check chemistries daily. Replace per supportive care protocol. Disposition: Admitted for further work-up and treatment for relapsed AML. Anticipate 3-[address] [facility] admission. Requested recovery BMBx for 04/[address] Goldberg on 04/09. Leah Villareal, [address] [facility] Mailcode: [id number] [place] [address] Kar Aggarwal MD - 03/30/2017 9:39 AM PSTFormatting of this note may be different fro m the original. Hematologic Malignancies/Blood and marrow Transplant Attending Note I have personally seen and examined Mrs. Gotti with the NICOLE today and I agree with the findi ngs and plans as outlined in her note today. Patients Hospital Problem List: Active Hospital Problems 1) *Acute myeloid leukemia not having achieved remission (HCC) 2) COPD (chronic obstructive pulmonary disease) (HCC) 3) Anxiety and depression 4) Learning disability 5) Neutropenic fever (HCC) 6) Abnormal CXR 7) Local infection due to PICC (peripherally inserted central catheter) 8) poor dentition 9) Hypoalbuminemia 10) immunocompromised host Subjective: No complaints. Had mild nausea yesterday. Walking the halls and in good spirits . Objective: Last Vitals: BP 143/81 | Pulse 86 | Temp 36.6 C (97.9 F) | RR 16 | Ht 1.6 m (5' 3") | W t 84.6 kg (186 lb 8.2 oz) | SpO2 95% | BMI 33.04 kg/(m^2) 24 Hour Vital Min/Max: Systolic (24hrs), Av , Min:127 , Max:161 Diastolic (24hrs), Av, Min:67, Max:91 Pulse Min: 85 Max: 93 Temp Min: 36.5 C (97.7 F) Max: 36.8 C (98.2 F) Resp Min: 16 Max: 16 SpO2 Min: 91 % Max: 97 % Intake/Output Summary (Last 24 hours) at 03/30/17 0933 Last data filed at 03/30/17 0803 Gross per 24 hour Intake 4750 ml Output 2175 ml Net 2575 ml Plaque on left العلي unchanged Remainder of exam unremarkable CBC with diff last 72 hours (or 3 results) Recent Labs 03/27/17 2314 03/28/17 2328 03/29/17 2353 WBC 0.16* 0.27* 0.29* HB 8.2* 8.0* 7.6* HCT 22.9* 22.4* 21.4* PLT 12* 7* 20* Brief assessment/plan: The major issues that I am directly managing that require continued hospital admission incl ude: 1. Relapsed AML: s/p FLAG-ARLETTE + Mido-Day 26. Counts showing slow signs of recovery. Continu e G-CSF 2. Neutropenic fever : Continue Zosyn until ANC recovering -prophylactic antimicrobials 3. Nausea: well controlled-Continue anti-emetics. 4. Possible D/C next week-will need transportation assistance and BM bx under sedation as o utpt. continue supportive Care as outlined in our orders and NICOLE note KAR AGGARWAL MD mechanical systems design engineer [facility] Center for Hematologic Malignancies [facility] [place] [email or web address] [phone] Kay Duarte MD - 03/29/2017 10:27 PM PSTFormatting of this note may be different from th olivia original. 03/29/2017 Hematologic Malignancies/Blood and marrow Transplant Attending Note I have reviewed and agree with the previously summarized HPI, PMH, FH, and SH as documented in the admission note I also performed a history and physical examination of the patient myself Subjective: Overall the patient is doing well. Objective: On exam, I note + erythematous patch on L العلي, patient is in no distress, RRR, lungs are c lear, abdomen is benign, and neuro is unremarkable. Brief assessment/plan: The major issues that I am directly managing that require continued hospital admission incl ude: 1. Relapsed AML: s/p FLAG-ARLETTE + Mido-Day 25. Counts show s/s of recovery. Continue G-CSF an d F/U. 2. Neutropenic fever : Continue Zosyn until ANC >500. 3. Nausea: Continue anti-emetics. 4. Possible D/C next week-will need transportation assistance and BM bx under sedation as o utpt. Today, we will continue the current level of support. Kay Duarte MD M.S. [facility] Attending physician s total time is 35 minutes, >50% spent counseling and coordination of care. [facility] DEPARTMENT: [id number] - [facility] [place] [facility] Place of Service: - Inpatient Date of Service: 03/29/2017 Modifiers: None Suggested CPT: 38597 - Subsequent, Detailed/High complex 35 min ######################################################### Vitals: Systolic (24hrs), Av , Min:127 , Max:161 Diastolic (24hrs), Av, Min:67, Max:91 Pulse Av.3 Min: 86 Max: 97 Temp Av.7 C (98.1 F) Min: 36.5 C (97.7 F) Max: 36.9 C (98.4 F) Resp Av Min: 16 Max: 16 SpO2 Av.5 % Min: 92 % Max: 97 % Intake/Output Summary (Last 24 hours) at 03/29/179 Last data filed at 03/29/172014 Gross per 24 hour Intake 3448 ml Output 1725 ml Net 1723 ml Current medications: Current Facility-Administered Medications Medication Dose Route Frequency Last Rate acyclovir (ZOVIRAX) tablet 800 mg 800 mg oral DAILY amLODIPine (NORVASC) tablet 10 mg 10 mg oral DAILY DULoxetine (CYMBALTA) capsule 30 mg 30 mg oral BID filgrastim-sndz (ZARXIO) injection 300 mcg 300 mcg subcutaneous QPM AT 1700 hydrocortisone 1 % cream topical BID levothyroxine tablet 37.5 mcg 37.5 mcg oral BEFORE BREAKFAST lisinopril (PRINIVIL) tablet 5 mg 5 mg oral DAILY omeprazole (PRILOSEC) capsule 20 mg 20 mg oral BEFORE BREAKFAST oxybutynin CR (DITROPAN-XL) tablet 15 mg 15 mg oral DAILY pentamidine (PENTAM) IV 300 mg 300 mg intravenous Q4W Stopped (03/09/17 1230) piperacillin-tazobactam (ZOSYN) IV (minibag+) 4.5 g 4.5 g intravenous Q6H posaconazole DR (NOXAFIL) tablet 300 mg 300 mg oral DAILY prochlorperazine (COMPAZINE) tablet 5-10 mg 5-10 mg oral DAILY tiotropium (SPIRIVA) inhalation 18 mcg 18 mcg inhalation DAILY triamcinolone acetonide (KENALOG) 0.1 % ointment topical BID Allergies: Allergies Allergen Reactions Morphine Rash and Facial Swelling Rash and facial swelling Opioids - Morphine Analogues Confusion Cefepime Rash Laboratory or other studies: Recent Labs 03/26/17230503/27/17 2314 03/28/17 2328 WBC 0.11* 0.16* 0.27* HB 7.2* 8.2* 8.0* HCT 20.4* 22.9* 22.4* PLT 8* 12* 7* Recent Labs 03/26/17 23003/27/17 2314 03/28/17 2328 NA 139 141 140 K 3.3* 3.9 3.7 CL 105 105 105 BICARB 29 28 27 BUN 10 12 13 CR 0.66 0.68 0.70 CA 8.8 8.9 8.8 MG 2.0 2.2 2.3 PO4 3.4 3.4 3.5 AST 18 21 21 ALT 38 41 41 TBILI 0.5 0.6 0.5 AP 158* 159* 159* ALB 3.2* 3.4* 3.3* TP 6.4 6.7 6.6 URINE CULTURE [facility] (no units) Date Value 03/05/2016 No growth (<1000 cfu/mL) after 24 hours CULTURE RESULT (no units) Date Value 03/12/2017 Final Report:No Bacteria or Yeast isolated at 5 days. Lab Results Component Value Date APTT 32.0 03/28/2017 FIBRINOGEN 488 (H) 03/28/2017 Emily Galdamez PA-C - 03/28/2017 12:11 PM PSTFormatting of this note may be different from the original. Daily NICOLE Note - Hematologic Malignancies/Chemo Admit [facility] Attending: MD KALA Ulrich MD: Angela Goldberg MD PCP: Saurav De Los Santos NP Date of Admission: 03/02/17 Hematologic Malignancy: AML ID: 51yo woman with relapsed AML admitted for treatment. PMH includes COPD, depression/anxi ety, learning disability, bladder spasms and hypothyroidism. 24 Hour Events/Current Daily Plan: -AML, relapsed: Currently Day 24 of reinduction with Flag-Arlette + Midostaurin (days 8-21) -Pancytopenia due to disease: standard transfusion protocol. One unit of PRBCs and one unit of platelets today -Non-neutropenic fever: present on admission and continued x3 days. Disease vs PNA (initial CXray consistent with possible PNA). Cultures NGTD. Zosyn (03/21- ) -CINV: PRN antiemetics -HTN: continue with amlodipine and lisinopril with PRN hydralazine -Hypothyroidism: 03/27 TSH 0.38 with free T4 1.4. Decreased levothyroxine to 37.5mcg -Hx MDD: teary with difficulty coping with relapsed disease and being away from family. Soc ial work following. Continue Cymbalta 30 mg BID. -Lytes: standard repletion parameters. No replacements today Subjective: Patient walking the halls prior to rounds. States she is feeling well today. Objective: Last Vitals: BP 146/90 | Pulse 83 | Temp 36.6 C (97.9 F) | RR 16 | Ht 1.6 m (5' 3") | W t 82.3 kg (181 lb 7 oz) | SpO2 96% | BMI 32.14 kg/(m^2) 24 Hour Vital Min/Max: Systolic (24hrs), Av , Min:134 , Max:154 Diastolic (24hrs), Av, Min:77, Max:90 Pulse Min: 83 Max: 97 Temp Min: 36.6 C (97.9 F) Max: 37 C (98.6 F) Resp Min: 16 Max: 16 SpO2 Min: 92 % Max: 99 % Intake/Output Summary (Last 24 hours) at 03/28/17 1211 Last data filed at 03/28/17 1109 Gross per 24 hour Intake 3310 ml Output 4400 ml Net -1090 ml Physical Exam: General: This is a female in NAD. Sitting upright in chair. at bedside. HEENT: PERRL. Scleral hemorrhages bilaterally. Mucosa pink and moist without erythema or exudate. Skin: Erythematous maculopapular rash to back and arms-improving Chest: CTA bilaterally CV: RRR, no murmurs. Abdomen: S/NT/ND with NABS. No HSM appreciated. Extremities: Pulses strong and equal bilaterally. No c/c/e. NeuroPsych: Alert and oriented x 3. Grossly nonfocal exam. CVC: Left arm erythema improved, but stamping mill tender and firm. Right PICC CDI Recent Labs 03/26/17203/26/17230503/27/17 2314 NA 140 139 141 K 3.5 3.3* 3.9 CL 104 105 105 BICARB 30 29 28 BUN 10 10 12 CR 0.62 0.66 0.68 GLU 105* 122* 103* CA 8.6 8.8 8.9 AST 20 18 21 ALT 35 38 41 AP 157* 158* 159* TBILI 0.5 0.5 0.6 TP 6.4 6.4 6.7 ALB 3.2* 3.2* 3.4* Recent Labs 03/04/17 2330 03/06/17 0227 03/06/17 22003/26/17203/26/17 2306 03/27/17 2314 WBC 7.66 < > 3.38* < > 0.54* < > 0.10* 0.11* 0.16* RBC 2.72* < > 2.66* < > 2.21* < > 2.52* 2.39* 2.64* HB 8.5* < > 8.6* < > 7.1* < > 7.6* 7.2* 8.2* HCT 25.6* < > 25.0* < > 21.1* < > 21.7* 20.4* 22.9* PLT 5* < > 26* < > 23* < > 12* 8* 12* NEUTROPERC 10.5* -- 36.2* -- 38.7* -- -- -- -- LYMPHPERC 14.9* -- 18.4 -- 12.6* -- -- -- -- MONOPERC 7.0 -- 3.3* -- 1.8* -- -- -- -- BASOPERC 0.0 -- 0.0 -- 0.0 -- -- -- -- EOSPERC 0.0* -- 0.0* -- 0.0* -- -- -- -- < > = values in this interval not displayed. Meds: Reviewed on rounds, see current MAR for medication list SUMMARY OF PATIENT'S HOSPITALIZATION Past Medical History: Rhea Hutchison is a 50 year old woman with history of COPD, depression, bladder spasms, hypoth yroidism and AML s/p induction 7+3+dasatinib and MiDAC consolidation (Apr 2016) who present s with AML recurrence. She is here with her and reports that she has had increasing diffuse body pains for approximately the past month. She was seen in her oncology clinic on 03/01 where she was noted to have a WBC 103K, up from her previously normal 5K in November. She reports that she has had increasing fatigue, nausea, vomiting, headache and now a sore at t he base of her inferior incisors in her mouth that occasionally bleed. She has also develop ed petechiae across her abdomen. She was admitted to [facility] where CXR was consistent with pulmonary leukostasis. Per Ca reEverywhere he labs were: WBC of 103,6000 (92% blasts) hgb 13.8 Hct 41.8%, Platelet count o f 10,000, Ldh 4427 U/L (ULN 215 U/L), Bun 14 mg/dL, Scr 0.82 mg/dL. She received fluids,hydroxyurea 2g q4hrs, 3L O2 per minute and a platelet transfusion prior to transfer. She reported no fevers but was febrile upon arrival at [facility]. Review of Systems: Positive for fatigue, night sweats, intermittent non-productive cough, d ecreased appetite, constipation, rash on abdomen, bleeding in mouth Oncology History (adapted from prior heme/onc notes) Last seen at [facility] Apr 2016 for consolidation therapy but per OSH notes, she has had the fol lowing events: Jan 2016 emergent bone marrow bx: bone marrow biopsy and aspiration at [facility] on February 15, 2016 confirmed acute myelogenous leukemia, diploid, positive for FLT-3 tyrosine kinase domai n mutation (also positive for NPM1, DNMT3A, NRAS, NPM1 and TET2 mutations). Induction chemotherapy with conventional 7+3 cytarabine/idarubicin February 16, 2016 with co ntinuous daily dasatinib (Sprycel) complicated by fungal pneumonia, neutropenic fever, hidra denitis suppurativa, and Clostridium Difficile colitis. Repeat bone marrow biopsy on 2015 (day 28); First complete remission. 1. Cycle#3 MiDaC (1200 mg/m Cytarabine) consolidation at [facility] on May 28, 2016. 2. Cycle#4 MiDaC (1000 mg/m Cytarabine ) consolidation at [facility] on June 25, 2016. 3. Bone Marrow Biopsy and Aspiration July 23, 2016 at the [facility] in [place], [place] specimen # [id number] demonstrated ongoing complete remissio n. Molecular analysis was negative for any residual NPM1 mutation positive cells and negativ e for any FLT-3 mutation positive cells (sensitivity is 1 in 20,000). 4. CBC on December 25, 2016; WBC 5,000, Hgb 14.6 gm/dl, Hct 42.7, Platelet 138,000. 5. MRI of right hip on January 25, 2017 in anticipation of right hip replacement; numerou s subcentimeter round marrow repacing lesions within the visualized lower lumbar spine, pelv is, and femurs. 6. CT Chest/Abdomen/Pelvis on February 06, 2017; 3 cm left thyroid mass, no other suggestion of primary neoplasm. 7. Bone scan February 08, 2017; Normal. 8. PET/CT scan on February 27, 2017; diffuse uptake about the spleen and bone marrow. 9. CBC on March 01, 2017; WBC 103,5000 (92% blasts) Hgb 13.8, Hct 41.8%, Platelet count 1 0,000. [id number] U/L, BUN 14 mg/dL, Scr 0.82 mg/dL. 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 -Cytogenetics: 46,X,t(X;7)(q21;q32)[20] -Genetrails: FLT3 ITD 90%, DNMT3A 46%, and NPM1 44% Treatment: Chemotherapy regimen: received hydrea 03/02-or leukocytosis, then started Flag-Alrette + Midostaurin (Day 1= 03/05/17) -Fludarabine 30mg/m2 (60mg) Daily, Days 1-5 -Idarubicin 8mg/m2 (16mg) Daily, Days 1-3 -Cytarabine 2000mg/m2 (4200mg) Daily, Days 1-5 -Midostaurin 50mg twice daily on Days 8-21 Chemo Day: 24 Transplant: Indicated for transplant with diagnosis of relapsed AML however there may be psychosocial barriers to stem cell transplant. Plan to type sibs in meantime #Pancytopenia secondary to relapsed disease and chemo: -See supportive care #Supportive Care: Growth factor: daily filgrastim per FLAG-Arlette protocol Labs: Continue to check CBC with diff daily Transfusion parameters: -Transfuse PRBCs for HCT <21% if asymptomatic -Transfuse PPH for platelet count <10,000 #Bleeding, noted epistaxis and bleeding from PICC site, noted 03/04. Likely due to decreased platelet production and not DIC. Required enhanced platelet transfusions and tranexamic aci d TID stopped 03/07 with improved bleeding and corrected INR. Received Vitamin K x3 days. RES OLVED Cardiovascular: TTE completed 03/04 with EF=70%. #HTN: -Continue amlodipine -Lisinopril 5 mg daily, started 03/21 -Hydralazine PRN #Prolonged QTc: QTc 563 on EKG, was not prolonged on previous admissions -Will monitor electrolytes and QTc prolonging medications closely Derm: #Rash: likely drug rash d/t cefepime. Cefepime dc'd on 03/21 with improvement noted. Resol luis -Cefepime added to allergies -Continue triamcinolone cream BID Pulmonary: #Ground glass opacity: noted on CXR (03/05) and CT Chest (03/05) show extensive bilateral jorge und glass and consolidative opacities are new compared to 03/02/2017, possibly r/t leukostasi s vs. DAH vs. infection. Lactate 03/04= 0.8. -Treat leukemia as above -Antibiotics as above -Supplemental O2 PRN #COPD: Home inhalers ordered GI: #Hemorrhoidal pain: -PRN proctocort -Stool softereners Neuro/Psych: #Diffuse pain: Likely due to hematologic malignancy. Morphine allergy but per patient other opioids OK. RESOLVED - Tylenol - Oxycodone PRN #Depression/Anxiety: -Continue home duloxetine, dose reduced as above -Social work following -Lorazepam PRN for anxiety Endocrine: #Hypothyroidism: -03/27 TSH 0.38 with free T4 1.4 -03/27 decreased levothyroxine to 37.5mcg -Will need repeat TSH with reflex free T4 around 06/19 Infectious Disease: #Non-neutropenic fever: present on admission and continued x 3 days, possibly disease vs PN A as CXR consistent with possible PNA. Initial work up negative now with possible line infec tion. Initially on cefepime (03/02-03/21) stopped due to possible drug rash. -Zosyn (03/21- ) #Possible line infection: resolved. PICC pulled 03/14 -S/p vanco (03/12-03/22) and doxycycline (03/10-03/12) #Prophylaxis: Bacterial: As above Fungal: Posaconazole, level on 03/14 therapeutic at 1.3 Viral: Acyclovir PCP: Pentam given 03/09/17 Fluid/Nutrition/Lytes: #Nutrition: Regular diet, No Madeline's yogurt or Kefir #Fluid: 1L NS bolus O/N for po intake <2L/day #Lytes: Continue to check chemistries daily. Replace per supportive care protocol. Disposition: Admitted for further work-up and treatment for relapsed AML. Anticipate 3-[address] [facility] admission. Requested recovery BMBx for 04/[address] Goldberg on 04/09 Emily Galdamez PA-C [facility] [id number] [facility] Mailcode: [email or web address] [place] [address] Kay Duarte MD - 03/28/2017 10:42 AM PSTFormatting of this note may be different from [facility] original. 03/28/2017 Hematologic Malignancies/Blood and marrow Transplant Attending Note I have reviewed and agree with the previously summarized HPI, PMH, FH, SH, and ROS as docum ented in the detailed note of NICOLE provider. I also performed a history and physical examination of the patient myself and agree with [facility] documented findings and plan of care. Subjective: Overall the patients is doing well. Continues to walk laps frequently. Rest of ROS negative . Objective: VSS. PE: +resolving sub conjunctival hemorrhage, +L UE erythema improving. Rest of exam non-foca l. Labs were reviewed and discussed with the patient. Brief assessment/plan: The major issues that I am directly managing that require continued hospital admission incl ude: 1. Relapsed AML: s/p FLAG-ARLETTE + midostaurin, day 24. Counts recovering slowly. Anticipate d ischarge later next week and recovery marrow as outpatient. 2. Pancytopenia 2/2 chemotherapy: Continue supportive care with transfusions. 3. Neutropenic fever: Continue Zosyn until count recovery. Today, we will continue the current level of support. Please refer to the NICOLE's note dated today for additional details on the specific plan and orders for today. Kay Duarte MD, MS [facility] Mal[facility] Attending physician s total time is 35 minutes, >50% spent counseling and coordination of care. [facility] DEPARTMENT: [id number] - [facility] [place] [facility] Place of Service: - Inpatient Date of Service: 03/28/2017 Modifiers: None Suggested CPT: 32623 - Subsequent, Detailed/High complex 35 min ######################################################### Vitals: Systolic (24hrs), Av , Min:134 , Max:154 Diastolic (24hrs), Av, Min:77, Max:88 Pulse Av.6 Min: 79 Max: 97 Temp Av.7 C (98 F) Min: 36.6 C (97.9 F) Max: 37 C (98.6 F) Resp Av Min: 16 Max: 16 SpO2 Av.8 % Min: 92 % Max: 99 % Intake/Output Summary (Last 24 hours) at 03/28/17 1043 Last data filed at 03/28/17 0900 Gross per 24 hour Intake 3780 ml Output 4950 ml Net -1170 ml Current medications: Current Facility-Administered Medications Medication Dose Route Frequency Last Rate acyclovir (ZOVIRAX) tablet 800 mg 800 mg oral DAILY amLODIPine (NORVASC) tablet 10 mg 10 mg oral DAILY DULoxetine (CYMBALTA) capsule 30 mg 30 mg oral BID filgrastim-sndz (ZARXIO) injection 300 mcg 300 mcg subcutaneous QPM AT 1700 hydrocortisone 1 % cream topical BID levothyroxine tablet 37.5 mcg 37.5 mcg oral BEFORE BREAKFAST lisinopril (PRINIVIL) tablet 5 mg 5 mg oral DAILY omeprazole (PRILOSEC) capsule 20 mg 20 mg oral BEFORE BREAKFAST oxybutynin CR (DITROPAN-XL) tablet 15 mg 15 mg oral DAILY pentamidine (PENTAM) IV 300 mg 300 mg intravenous Q4W Stopped (03/09/17 1230) piperacillin-tazobactam (ZOSYN) IV (minibag+) 4.5 g 4.5 g intravenous Q6H posaconazole DR (NOXAFIL) tablet 300 mg 300 mg oral DAILY prochlorperazine (COMPAZINE) tablet 5-10 mg 5-10 mg oral DAILY tiotropium (SPIRIVA) inhalation 18 mcg 18 mcg inhalation DAILY triamcinolone acetonide (KENALOG) 0.1 % ointment topical BID Allergies: Allergies Allergen Reactions Morphine Rash and Facial Swelling Rash and facial swelling Opioids - Morphine Analogues Confusion Cefepime Rash Laboratory or other studies: Recent Labs 03/26/17 0003 03/26/17 2306 03/27/17 2314 WBC 0.10* 0.11* 0.16* HB 7.6* 7.2* 8.2* HCT 21.7* 20.4* 22.9* PLT 12* 8* 12* Recent Labs 03/26/17 0003 03/26/17 2306 03/27/17 2314 NA 140 139 141 K 3.5 3.3* 3.9 CL 104 105 105 BICARB 30 29 28 BUN 10 10 12 CR 0.62 0.66 0.68 CA 8.6 8.8 8.9 MG 2.0 2.0 2.2 PO4 4.0 3.4 3.4 AST 20 18 21 ALT 35 38 41 TBILI 0.5 0.5 0.6 AP 157* 158* 159* ALB 3.2* 3.2* 3.4* TP 6.4 6.4 6.7 URINE CULTURE [facility] (no units) Date Value 03/05/2016 No growth (<1000 cfu/mL) after 24 hours CULTURE RESULT (no units) Date Value 03/12/2017 Final Report:No Bacteria or Yeast isolated at 5 days. Lab Results Component Value Date APTT 31.4 03/27/2017 FIBRINOGEN 505 (H) 03/27/2017 Emily Galdamez PA-C - 03/27/2017 4:15 PM PSTFormatting of this note may be different from the original. Daily NICOLE Note - Hematologic Malignancies/Chemo Admit Center for Hematologic Malignancies Attending: Kay Duarte MD [facility] MD: Angela Goldberg MD PCP: Saurav De Los Santos NP Date of Admission: 03/02/17 Hematologic Malignancy: AML ID: 51yo woman with relapsed AML admitted for treatment. PMH includes COPD, depression/anxi ety, learning disability, bladder spasms and hypothyroidism. 24 Hour Events/Current Daily Plan: -AML, relapsed: Currently Day 23 of reinduction with Flag-Arlette + Midostaurin (days 8-21) -Pancytopenia due to disease: standard transfusion protocol. One unit of PRBCs and one unit of platelets today -Non-neutropenic fever: present on admission and continued x3 days. Disease vs PNA (initial CXray consistent with possible PNA). Cultures NGTD. Zosyn (03/21- ) -CINV: PRN antiemetics -HTN: continue with amlodipine and lisinopril with PRN hydralazine -Hypothyroidism 03/27 TSH 0.38 with free T4 1.4. Decreased levothyroxine 37.5mcg -Hx MDD: teary with difficulty coping with relapsed disease and being away from family. Soc ial work following. Continue Cymbalta 30 mg BID. -Lytes: standard repletion parameters. No replacements today Subjective: States she is feeling better today. Objective: Last Vitals: BP 144/80 | Pulse 87 | Temp 36.7 C (98.1 F) | RR 16 | Ht 1.6 m (5' 3") | W t 83.5 kg (184 lb 1.4 oz) | SpO2 95% | BMI 32.61 kg/(m^2) 24 Hour Vital Min/Max: Systolic (24hrs), Av , Min:115 , Max:144 Diastolic (24hrs), Av, Min:63, Max:88 Pulse Min: 69 Max: 90 Temp Min: 36.3 C (97.3 F) Max: 36.8 C (98.2 F) Resp Min: 16 Max: 20 SpO2 Min: 94 % Max: 98 % Intake/Output Summary (Last 24 hours) at 03/27/17 1615 Last data filed at 03/27/17 1214 Gross per 24 hour Intake 3241 ml Output 3175 ml Net 66 ml Physical Exam: General: This is a female in NAD. Sitting upright in chair. at bedside. HEENT: PERRL. Scleral hemorrhages bilaterally. Mucosa pink and moist without erythema or exudate. Skin: Erythematous maculopapular rash to back and arms-improving Chest: CTA bilaterally CV: RRR, no murmurs. Abdomen: S/NT/ND with NABS. No HSM appreciated. Extremities: Pulses strong and equal bilaterally. No c/c/e. NeuroPsych: Alert and oriented x 3. Grossly nonfocal exam. CVC: Left arm erythema improved, but stamping mill tender and firm. Right PICC CDI Recent Labs 03/24/17 2312 03/26/17 0003 03/26/17 2306 NA 142 140 139 K 3.6 3.5 3.3* CL 105 104 105 BICARB 30 30 29 BUN 11 10 10 CR 0.60 0.62 0.66 GLU 108* 105* 122* CA 8.7 8.6 8.8 AST 18 20 18 ALT 33 35 38 AP 153* 157* 158* TBILI 0.6 0.5 0.5 TP 6.5 6.4 6.4 ALB 3.1* 3.2* 3.2* Recent Labs 03/04/17 2330 03/06/17 0227 03/06/17 2200 03/24/17 2312 03/26/17 0003 03/26/17 2306 WBC 7.66 < > 3.38* < > 0.54* < > <0.10* 0.10* 0.11* RBC 2.72* < > 2.66* < > 2.21* < > 2.59* 2.52* 2.39* HB 8.5* < > 8.6* < > 7.1* < > 7.9* 7.6* 7.2* HCT 25.6* < > 25.0* < > 21.1* < > 22.3* 21.7* 20.4* PLT 5* < > 26* < > 23* < > 9* 12* 8* NEUTROPERC 10.5* -- 36.2* -- 38.7* -- -- -- -- LYMPHPERC 14.9* -- 18.4 -- 12.6* -- -- -- -- MONOPERC 7.0 -- 3.3* -- 1.8* -- -- -- -- BASOPERC 0.0 -- 0.0 -- 0.0 -- -- -- -- EOSPERC 0.0* -- 0.0* -- 0.0* -- -- -- -- < > = values in this interval not displayed. Meds: Reviewed on rounds, see current MAR for medication list SUMMARY OF PATIENT'S HOSPITALIZATION Past Medical History: Rhea Hutchison is a 50 year old woman with history of COPD, depression, bladder spasms, hypoth yroidism and AML s/p induction 7+3+dasatinib and MiDAC consolidation (Apr 2016) who present s with AML recurrence. She is here with her and reports that she has had increasing diffuse body pains for approximately the past month. She was seen in her oncology clinic on 11/3 where she was noted to have a WBC 103K, up from her previously normal 5K in November. She reports that she has had increasing fatigue, nausea, vomiting, headache and now a sore at t he base of her inferior incisors in her mouth that occasionally bleed. She has also develop ed petechiae across her abdomen. She was admitted to [facility] where CXR was consistent with pulmonary leukostasis. Per Ca reEverywhere he labs were: WBC of 103,6000 (92% blasts) hgb 13.8 Hct 41.8%, Platelet count o f 10,000, Ldh 4427 U/L (ULN 215 U/L), Bun 14 mg/dL, Scr 0.82 mg/dL. She received fluids,hydroxyurea 2g q4hrs, 3L O2 per minute and a platelet transfusion prior to transfer. She reported no fevers but was febrile upon arrival at [facility]. Review of Systems: Positive for fatigue, night sweats, intermittent non-productive cough, d ecreased appetite, constipation, rash on abdomen, bleeding in mouth Oncology History (adapted from prior heme/onc notes) Last seen at [facility] Apr 2016 for consolidation therapy but per OSH notes, she has had the fol lowing events: Jan 2016 emergent bone marrow bx: bone marrow biopsy and aspiration at [facility] on February 15, 2016 confirmed acute myelogenous leukemia, diploid, positive for FLT-3 tyrosine kinase domai n mutation (also positive for NPM1, DNMT3A, NRAS, NPM1 and TET2 mutations). Induction chemotherapy with conventional 7+3 cytarabine/idarubicin February 16, 2016 with co ntinuous daily dasatinib (Sprycel) complicated by fungal pneumonia, neutropenic fever, hidra denitis suppurativa, and Clostridium Difficile colitis. Repeat bone marrow biopsy on 2015 (day 28); First complete remission. 1. Cycle#3 MiDaC (1200 mg/m Cytarabine) consolidation at [facility] on May 28, 2016. 2. Cycle#4 MiDaC (1000 mg/m Cytarabine ) consolidation at [facility] on June 25, 2016. 3. Bone Marrow Biopsy and Aspiration July 23, 2016 at the [facility] in [place], [place] specimen # [id number] demonstrated ongoing complete remissio n. Molecular analysis was negative for any residual NPM1 mutation positive cells and negativ e for any FLT-3 mutation positive cells (sensitivity is 1 in 20,000). 4. CBC on December 25, 2016; WBC 5,000, Hgb 14.6 gm/dl, Hct 42.7, Platelet 138,000. 5. MRI of right hip on January 25, 2017 in anticipation of right hip replacement; numerou s subcentimeter round marrow repacing lesions within the visualized lower lumbar spine, pelv is, and femurs. 6. CT Chest/Abdomen/Pelvis on February 06, 2017; 3 cm left thyroid mass, no other suggestion of primary neoplasm. 7. Bone scan February 08, 2017; Normal. 8. PET/CT scan on February 27, 2017; diffuse uptake about the spleen and bone marrow. 9. CBC on March 01, 2017; WBC 103,5000 (92% blasts) Hgb 13.8, Hct 41.8%, Platelet count 1 0,000. [id number] U/L, BUN 14 mg/dL, Scr 0.82 mg/dL. 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 -Cytogenetics: 46,X,t(X;7)(q21;q32)[20] -Genetrails: FLT3 ITD 90%, DNMT3A 46%, and NPM1 44% Treatment: Chemotherapy regimen: received hydrea 03/02-or leukocytosis, then started Flag-Arlette + Midostaurin (Day 1= 03/05/17) -Fludarabine 30mg/m2 (60mg) Daily, Days 1-5 -Idarubicin 8mg/m2 (16mg) Daily, Days 1-3 -Cytarabine 2000mg/m2 (4200mg) Daily, Days 1-5 -Midostaurin 50mg twice daily on Days 8-21 Chemo Day: 23 Transplant: Indicated for transplant with diagnosis of relapsed AML however there may be psychosocial barriers to stem cell transplant. Plan to type sibs in meantime #Pancytopenia secondary to relapsed disease and chemo: -See supportive care #Supportive Care: Growth factor: daily filgrastim per FLAG-Arlette protocol Labs: Continue to check CBC with diff daily Transfusion parameters: -Transfuse PRBCs for HCT <21% if asymptomatic -Transfuse PPH for platelet count <10,000 #Bleeding, noted epistaxis and bleeding from PICC site, noted 03/04. Likely due to decreased platelet production and not DIC. Required enhanced platelet transfusions and tranexamic aci d TID stopped 03/07 with improved bleeding and corrected INR. Received Vitamin K x3 days. RES OLVED Cardiovascular: TTE completed 03/04 with EF=70%. #HTN: -Continue amlodipine -Lisinopril 5 mg daily, started 03/21 -Hydralazine PRN #Prolonged QTc: QTc 563 on EKG, was not prolonged on previous admissions -Will monitor electrolytes and QTc prolonging medications closely Derm: #Rash: likely drug rash d/t cefepime. Cefepime dc'd on 03/21 with improvement noted. Resol luis -Cefepime added to allergies -Continue triamcinolone cream BID Pulmonary: #Ground glass opacity: noted on CXR (03/05) and CT Chest (03/05) show extensive bilateral jorge und glass and consolidative opacities are new compared to 03/02/2017, possibly r/t leukostasi s vs. DAH vs. infection. Lactate 03/04= 0.8. -Treat leukemia as above -Antibiotics as above -Supplemental O2 PRN #COPD: Home inhalers ordered GI: #Hemorrhoidal pain: -PRN proctocort -Stool softereners Neuro/Psych: #Diffuse pain: Likely due to hematologic malignancy. Morphine allergy but per patient other opioids OK. RESOLVED - Tylenol - Oxycodone PRN #Depression/Anxiety: -Continue home duloxetine, dose reduced as above -Social work following -Lorazepam PRN for anxiety Endocrine: #Hypothyroidism: -Continue home synthroid Infectious Disease: #Non-neutropenic fever: present on admission and continued x 3 days, possibly disease vs PN A as CXR consistent with possible PNA. Initial work up negative now with possible line infec tion. Initially on cefepime (03/02-03/21) stopped due to possible drug rash. -Zosyn (03/21-) #Possible line infection: resolved. PICC pulled 03/14 -S/p vanco (03/12-03/22) and doxycycline (03/10-03/12) #Prophylaxis: Bacterial: As above Fungal: Posaconazole, level on 03/14 therapeutic at 1.3 Viral: Acyclovir PCP: Pentam given 03/09/17 Fluid/Nutrition/Lytes: #Nutrition: Regular diet, No Madeline's yogurt or Kefir #Fluid: 1L NS bolus O/N for po intake <2L/day #Lytes: Continue to check chemistries daily. Replace per supportive care protocol. Disposition: Admitted for further work-up and treatment for relapsed AML. Anticipate 3-[address] [facility] admission. Emily Galdamez PA-C [facility] [id number] [facility] Mailcode: [id number] [place] [address] Kay Duarte MD - 03/27/2017 11:16 AM PSTFormatting of this note may be different from [facility] original. 03/27/2017 Hematologic Malignancies/Blood and marrow Transplant Attending Note I have reviewed and agree with the previously summarized HPI, PMH, FH, SH, and ROS as docum ented in the detailed note of NICOLE provider. I also performed a history and physical examination of the patient myself and agree with [facility] documented findings and plan of care. Subjective: Feels good today, slept great. Rest of ROS negative. Objective: VSS. PE: +facial petechia, +resolving sub conjunctival hemorrhage. Rest of exam non-focal. Labs were reviewed and discussed with the patient. Brief assessment/plan: The major issues that I am directly managing that require continued hospital admission incl ude: 1. Relapsed AML: s/p FLAG-ARLETTE + midostaurin, day 23. Beginning of count recovery. 2. Pancytopenia 2/2 chemotherapy: Continue supportive care with transfusions. 3. Neutropenic fever: Continue Zosyn until count recovery. 4. CINV: Controlled with antiemetics prn. Today, we will continue the current level of support. Please refer to the NICOLE's note dated today for additional details on the specific plan and orders for today. Kay Duarte MD, MS [facility] Attending physician s total time is 35 minutes, >50% spent counseling and coordination of care. [facility] DEPARTMENT: [id number] - [facility] [place] [facility] Place of Service: - Inpatient Date of Service: 03/27/2017 Modifiers: None Suggested CPT: 95613 - Subsequent, Detailed/High complex 35 min ######################################################### Vitals: Systolic (24hrs), Av , Min:115 , Max:138 Diastolic (24hrs), Av, Min:63, Max:88 Pulse Av.7 Min: 69 Max: 90 Temp Av.4 C (97.6 F) Min: 36.3 C (97.3 F) Max: 36.8 C (98.2 F) Resp Av.4 Min: 16 Max: 20 SpO2 Av.8 % Min: 94 % Max: 97 % Intake/Output Summary (Last 24 hours) at 03/27/17 1116 Last data filed at 03/27/17 0900 Gross per 24 hour Intake 3181 ml Output 4175 ml Net -994 ml Current medications: Current Facility-Administered Medications Medication Dose Route Frequency Last Rate acyclovir (ZOVIRAX) tablet 800 mg 800 mg oral DAILY amLODIPine (NORVASC) tablet 10 mg 10 mg oral DAILY DULoxetine (CYMBALTA) capsule 30 mg 30 mg oral BID filgrastim-sndz (ZARXIO) injection 300 mcg 300 mcg subcutaneous QPM AT 1700 hydrocortisone (PROCTOCORT) 1 % rectal cream rectal TID hydrocortisone 1 % cream topical BID levothyroxine tablet 50 mcg 50 mcg oral DAILY lisinopril (PRINIVIL) tablet 5 mg 5 mg oral DAILY omeprazole (PRILOSEC) capsule 20 mg 20 mg oral BEFORE BREAKFAST oxybutynin CR (DITROPAN-XL) tablet 15 mg 15 mg oral DAILY pentamidine (PENTAM) IV 300 mg 300 mg intravenous Q4W Stopped (03/09/17 1230) piperacillin-tazobactam (ZOSYN) IV (minibag+) 4.5 g 4.5 g intravenous Q6H posaconazole DR (NOXAFIL) tablet 300 mg 300 mg oral DAILY prochlorperazine (COMPAZINE) tablet 5-10 mg 5-10 mg oral DAILY tiotropium (SPIRIVA) inhalation 18 mcg 18 mcg inhalation DAILY triamcinolone acetonide (KENALOG) 0.1 % ointment topical BID Allergies: Allergies Allergen Reactions Morphine Rash and Facial Swelling Rash and facial swelling Opioids - Morphine Analogues Confusion Cefepime Rash Laboratory or other studies: Recent Labs 03/24/17231103/26/17203/26/172305 WBC <0.10* 0.10* 0.11* HB 7.9* 7.6* 7.2* HCT 22.3* 21.7* 20.4* PLT 9* 12* 8* Recent Labs 03/24/17231103/26/17203/26/172305 NA 142 140 139 K 3.6 3.5 3.3* CL 105 104 105 BICARB 30 30 29 BUN 11 10 10 CR 0.60 0.62 0.66 CA 8.7 8.6 8.8 MG 2.1 2.0 2.0 PO4 3.6 4.0 3.4 AST 18 20 18 ALT 33 35 38 TBILI 0.6 0.5 0.5 AP 153* 157* 158* ALB 3.1* 3.2* 3.2* TP 6.5 6.4 6.4 URINE CULTURE [facility] (no units) Date Value 03/05/2016 No growth (<1000 cfu/mL) after 24 hours CULTURE RESULT (no units) Date Value 03/12/2017 Final Report:No Bacteria or Yeast isolated at 5 days. Lab Results Component Value Date APTT 31.3 03/26/2017 FIBRINOGEN 472 (H) 03/26/2017 Kay Duarte MD - 03/26/2017 11:44 AM PSTFormatting of this note may be different from th e original. 03/26/2017 Hematologic Malignancies/Blood and marrow Transplant Attending Note I have reviewed and agree with the previously summarized HPI, PMH, FH, SH, and ROS as docum ented in the detailed note of the NICOLE provider. I also performed a history and physical examination of the patient myself and agree with th e documented findings and plan of care. Subjective: Lots of vomiting after eating a large meal last night. Feeling better today. Rest of ROS ne gative. Objective: VSS. Pe: +subconjunctival hemorrhages and facial petechia. Rest of exam non-focal. Labs were reviewed and discussed with the patient. Brief assessment/plan: The major issues that I am directly managing that require continued hospital admission incl ude: 1. Relapsed AML: s/p FLAG-ARLETTE + midostaurin, day 22. WBCc detectable at 0.10. 2. Pancytopenia 2/2 chemotherapy: Continue supportive care with transfusions. 3. Neutropenic fever: Continue Zosyn until count recovery. 4. CINV: Control with prn antiemetics. Today, we will continue the current level of support. Please refer to the NICOLE's note dated today for additional details on the specific plan and orders for today. Kay Duarte MD, [facility] Attending physician s total time is 35 minutes, >50% spent counseling and coordination of care. [facility] DEPARTMENT: [id number] - [facility] [place] [facility] Place of Service: - Inpatient Date of Service: 03/26/2017 Modifiers: None Suggested CPT: 27140 - Subsequent, Detailed/High complex 35 min ######################################################### Vitals: Systolic (24hrs), Av , Min:128 , Max:150 Diastolic (24hrs), Av, Min:76, Max:95 Pulse Av.4 Min: 83 Max: 92 Temp Av.6 C (97.8 F) Min: 36.5 C (97.7 F) Max: 36.7 C (98.1 F) Resp Av.2 Min: 16 Max: 17 SpO2 Av.2 % Min: 92 % Max: 96 % Intake/Output Summary (Last 24 hours) at 03/26/17 1144 Last data filed at 03/26/17 0850 Gross per 24 hour Intake 3375 ml Output 3025 ml Net 350 ml Current medications: Current Facility-Administered Medications Medication Dose Route Frequency Last Rate acyclovir (ZOVIRAX) tablet 800 mg 800 mg oral DAILY amLODIPine (NORVASC) tablet 10 mg 10 mg oral DAILY DULoxetine (CYMBALTA) capsule 30 mg 30 mg oral BID filgrastim-sndz (ZARXIO) injection 300 mcg 300 mcg subcutaneous QPM AT 1700 hydrocortisone (PROCTOCORT) 1 % rectal cream rectal TID hydrocortisone 1 % cream topical BID levothyroxine tablet 50 mcg 50 mcg oral DAILY lisinopril (PRINIVIL) tablet 5 mg 5 mg oral DAILY omeprazole (PRILOSEC) capsule 20 mg 20 mg oral BEFORE BREAKFAST oxybutynin CR (DITROPAN-XL) tablet 15 mg 15 mg oral DAILY pentamidine (PENTAM) IV 300 mg 300 mg intravenous Q4W Stopped (03/09/17 1230) piperacillin-tazobactam (ZOSYN) IV (minibag+) 4.5 g 4.5 g intravenous Q6H posaconazole DR (NOXAFIL) tablet 300 mg 300 mg oral DAILY prochlorperazine (COMPAZINE) tablet 5-10 mg 5-10 mg oral DAILY tiotropium (SPIRIVA) inhalation 18 mcg 18 mcg inhalation DAILY triamcinolone acetonide (KENALOG) 0.1 % ointment topical BID Allergies: Allergies Allergen Reactions Morphine Rash and Facial Swelling Rash and facial swelling Opioids - Morphine Analogues Confusion Cefepime Rash Laboratory or other studies: Recent Labs 03/23/17230703/24/17231103/26/17 0003 WBC <0.10* <0.10* 0.10* HB 8.0* 7.9* 7.6* HCT 23.3* 22.3* 21.7* PLT 14* 9* 12* Recent Labs 03/23/17230703/24/17231103/26/17 0003 NA 141 142 140 K 3.6 3.6 3.5 CL 103 105 104 BICARB 32 30 30 BUN 11 11 10 CR 0.62 0.60 0.62 CA 9.1 8.7 8.6 MG 2.1 2.1 2.0 PO4 3.7 3.6 4.0 AST 21 18 20 ALT 33 33 35 TBILI 0.5 0.6 0.5 AP 160* 153* 157* ALB 3.2* 3.1* 3.2* TP 6.5 6.5 6.4 URINE CULTURE [facility] (no units) Date Value 03/05/2016 No growth (<1000 cfu/mL) after 24 hours CULTURE RESULT (no units) Date Value 03/12/2017 Final Report:No Bacteria or Yeast isolated at 5 days. Lab Results Component Value Date APTT 31.7 03/26/2017 FIBRINOGEN 472 (H) 03/26/2017 Raghavendra Bone, JOSEFA,MPAS - 03/26/2017 9:28 AM PSTFormatting of this note may be different f rom the original. Daily NPP Note - Hematologic Malignancies/[facility] Attending: MD KALA Huffman MD: Angela Goldberg MD PCP: Saurav De Los Santos NP Date of Admission: 03/02/17 Hematologic Malignancy: AML ID: 51yo woman with relapsed AML admitted for treatment. PMH includes COPD, depression/anxi ety, learning disability, bladder spasms and hypothyroidism. 24 Hour Events/Current Daily Plan: -AML, relapsed: Currently Day 22 of reinduction with Flag-Arlette + Midostaurin (days 8-21) -Pancytopenia: r/t relapsed disease. Standard transfusion protocol. None today. -Non-neutropenic fever: present on admission and continued x 3 days, possibly disease vs PN A (initial CXray consistent with possible PNA). CX NGTD. Then line became erythematous/painf ul 03/10 with possible line infection and received course of vancomycin. Continue Zosyn. -Possible line infection: Added Doxycycline 03/10 d/t PICC erythema/tenderness. Line site w orsened so changed to Vanco 03/12 and left PICC pulled 03/14, replaced 03/15. Vanco dc'd wit h in 03/22 with improvement noted. -CINV: significant vomiting overnight 03/25; resolved with PRN meds - thinks it might have been a migraine headache -developed subconjunctival hemorrhages and facial petechia from vomiting. monitor -HTN: despite antihypertensives. Continue amlodipine, added lisinopril on 03/21 and continu e hydralazine PRN -Rash: likely drug rash d/t cefepime. Cefepime dc'd on 03/21 with improvement noted. Now on zosyn. Continue triamcinolone cream BID. -Hx MDD: Teary with difficulty coping with relapsed disease and being away from family. Soc ial work following. Continue Cymbalta 30 mg BID. -Lytes; Standard repletion parameters. None needed today. Subjective: had a rough night - severe vomiting overnight after eating dinner Objective: Last Vitals: BP 128/79 | Pulse 84 | Temp 36.5 C (97.7 F) | RR 16 | Ht 1.6 m (5' 3") | W t 83.2 kg (183 lb 6.8 oz) | SpO2 96% | BMI 32.49 kg/(m^2) 24 Hour Vital Min/Max: Systolic (24hrs), Av , Min:128 , Max:150 Diastolic (24hrs), Av, Min:76, Max:95 Pulse Min: 83 Max: 92 Temp Min: 36.5 C (97.7 F) Max: 36.7 C (98.1 F) Resp Min: 16 Max: 17 SpO2 Min: 92 % Max: 96 % Intake/Output Summary (Last 24 hours) at 03/26/17 0928 Last data filed at 03/26/17 0629 Gross per 24 hour Intake 2885 ml Output 3025 ml Net -140 ml Physical Exam: General: This is a female in NAD. Sitting upright in chair. at bedside. HEENT: PERRL. Scleral hemorrhages bilaterally. Mucosa pink and moist without erythema or exudate. Skin: Erythematous maculopapular rash to back and arms-improving Chest: CTA bilaterally CV: RRR, no murmurs. Abdomen: S/NT/ND with NABS. No HSM appreciated. Extremities: Pulses strong and equal bilaterally. No c/c/e. NeuroPsych: Alert and oriented x 3. Grossly nonfocal exam. CVC: Left arm erythema improved, but stamping mill tender and firm. Right PICC CDI Recent Labs 03/23/17 2308 03/24/17 2312 03/26/17 0003 NA 141 142 140 K 3.6 3.6 3.5 CL 103 105 104 BICARB 32 30 30 BUN 11 11 10 CR 0.62 0.60 0.62 GLU 98 108* 105* CA 9.1 8.7 8.6 AST 21 18 20 ALT 33 33 35 AP 160* 153* 157* TBILI 0.5 0.6 0.5 TP 6.5 6.5 6.4 ALB 3.2* 3.1* 3.2* Recent Labs 03/04/17 2330 03/06/17 0227 03/06/17 2200 03/23/17 2308 03/24/17 2312 03/26/17 0003 WBC 7.66 < > 3.38* < > 0.54* < > <0.10* <0.10* 0.10* RBC 2.72* < > 2.66* < > 2.21* < > 2.64* 2.59* 2.52* HB 8.5* < > 8.6* < > 7.1* < > 8.0* 7.9* 7.6* HCT 25.6* < > 25.0* < > 21.1* < > 23.3* 22.3* 21.7* PLT 5* < > 26* < > 23* < > 14* 9* 12* NEUTROPERC 10.5* -- 36.2* -- 38.7* -- -- -- -- LYMPHPERC 14.9* -- 18.4 -- 12.6* -- -- -- -- MONOPERC 7.0 -- 3.3* -- 1.8* -- -- -- -- BASOPERC 0.0 -- 0.0 -- 0.0 -- -- -- -- EOSPERC 0.0* -- 0.0* -- 0.0* -- -- -- -- < > = values in this interval not displayed. Meds: Reviewed on rounds, see current MAR for medication list SUMMARY OF PATIENT'S HOSPITALIZATION Past Medical History: Rhea Hutchison is a 50 year old woman with history of COPD, depression, bladder spasms, hypoth yroidism and AML s/p induction 7+3+dasatinib and MiDAC consolidation (Apr 2016) who present s with AML recurrence. She is here with her and reports that she has had increasing diffuse body pains for approximately the past month. She was seen in her oncology clinic on 03/01 where she was noted to have a WBC 103K, up from her previously normal 5K in November. She reports that she has had increasing fatigue, nausea, vomiting, headache and now a sore at t he base of her inferior incisors in her mouth that occasionally bleed. She has also develop ed petechiae across her abdomen. She was admitted to [facility] where CXR was consistent with pulmonary leukostasis. Per Ca reEverywhere he labs were: WBC of 103,6000 (92% blasts) hgb 13.8 Hct 41.8%, Platelet count o f 10,000, Ldh 4427 U/L (ULN 215 U/L), Bun 14 mg/dL, Scr 0.82 mg/dL. She received fluids,hydroxyurea 2g q4hrs, 3L O2 per minute and a platelet transfusion prior to transfer. She reported no fevers but was febrile upon arrival at [facility]. Review of Systems: Positive for fatigue, night sweats, intermittent non-productive cough, d ecreased appetite, constipation, rash on abdomen, bleeding in mouth Oncology History (adapted from prior heme/onc notes) Last seen at [facility] Apr 2016 for consolidation therapy but per OSH notes, she has had the fol lowing events: Jan 2016 emergent bone marrow bx: bone marrow biopsy and aspiration at [facility] on February 15, 2016 confirmed acute myelogenous leukemia, diploid, positive for FLT-3 tyrosine kinase domai n mutation (also positive for NPM1, DNMT3A, NRAS, NPM1 and TET2 mutations). Induction chemotherapy with conventional 7+3 cytarabine/idarubicin February 16, 2016 with co ntinuous daily dasatinib (Sprycel) complicated by fungal pneumonia, neutropenic fever, hidra denitis suppurativa, and Clostridium Difficile colitis. Repeat bone marrow biopsy on 2015 (day 28); First complete remission. 1. Cycle#3 MiDaC (1200 mg/m Cytarabine) consolidation at [facility] on May 28, 2016. 2. Cycle#4 MiDaC (1000 mg/m Cytarabine ) consolidation at [facility] on June 25, 2016. 3. Bone Marrow Biopsy and Aspiration July 23, 2016 at the [facility] in [place], [place] specimen # [id number] demonstrated ongoing complete remissio n. Molecular analysis was negative for any residual NPM1 mutation positive cells and negativ e for any FLT-3 mutation positive cells (sensitivity is 1 in 20,000). 4. CBC on December 25, 2016; WBC 5,000, Hgb 14.6 gm/dl, Hct 42.7, Platelet 138,000. 5. MRI of right hip on January 25, 2017 in anticipation of right hip replacement; numerou s subcentimeter round marrow repacing lesions within the visualized lower lumbar spine, pelv is, and femurs. 6. CT Chest/Abdomen/Pelvis on February 06, 2017; 3 cm left thyroid mass, no other suggestion of primary neoplasm. 7. Bone scan February 08, 2017; Normal. 8. PET/CT scan on February 27, 2017; diffuse uptake about the spleen and bone marrow. 9. CBC on March 01, 2017; WBC 103,5000 (92% blasts) Hgb 13.8, Hct 41.8%, Platelet count 1 0,000. [id number] U/L, BUN 14 mg/dL, Scr 0.82 mg/dL. 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 -Cytogenetics: 46,X,t(X;7)(q21;q32)[20] -Genetrails: PENDING, preliminary report + FLT3 ITD at 90% allele frequency Treatment: Chemotherapy regimen: received hydrea 03/02-or leukocytosis, then started Flag-Arlette + Midostaurin (Day 1= 03/05/17) -Fludarabine 30mg/m2 (60mg) Daily, Days 1-5 -Idarubicin 8mg/m2 (16mg) Daily, Days 1-3 -Cytarabine 2000mg/m2 (4200mg) Daily, Days 1-5 -Midostaurin 50mg twice daily on Days 8-21 Chemo Day: 22 Transplant: Indicated for transplant with diagnosis of relapsed AML however there may be psychosocial barriers to stem cell transplant. Plan to type sibs in meantime #Pancytopenia d/t relapsed disease and chemo: -See supportive care #Supportive Care: Growth factor: daily filgrastim per FLAG-Arlette protocol. Labs: Continue to check CBC with diff daily Transfusion parameters: -Transfuse PRBCs for HCT <21% if asymptomatic -Transfuse PPH for platelet count <10,000 #Bleeding, noted epistaxis and bleeding from PICC site, noted 03/04. Likely due to decreased platelet production and not DIC. Required enhanced platelet transfusions and tranexamic aci d TID stopped 03/07 with improved bleeding and corrected INR. Received Vitamin K x3 days. RES OLVED Cardiovascular: TTE completed 03/04 with EF=70%. #HTN: despite antihypertensives. -Continue amlodipine -lisinopril 5 mg daily, started 03/21 -hydralazine PRN #Prolonged QTc: QTc 563 on EKG, was not prolonged on previous admissions. -Will monitor electrolytes and QTc prolonging medications closely. Derm: #Rash: likely drug rash d/t cefepime. Cefepime dc'd on 03/21 with improvement noted. Now on zosyn. -Cefepime added to allergies -Continue triamcinolone cream BID. Pulmonary: #GGO; noted on CXR (03/05) and CT Chest (03/05) show extensive bilateral ground glass and con solidative opacities are new compared to 03/02/2017, possibly r/t leukostasis vs. DAH vs. inf ection. Lactate 03/04= 0.8. -Treat leukemia as above -Abx as above -Keep platelets >20K -Supplemental O2 PRN #COPD: Home inhalers ordered #FVO r/t MIVF: -Decreased MIVF -Diurese PRN GI: #Hemorrhoidal pain: -prn proctocort -Stool softereners Neuro/Psych: #Diffuse pain: Likely due to hematologic malignancy. Morphine allergy but per patient other opioids OK. RESOLVED - Tylenol - Oxycodone PRN #Depression/Anxiety: -Continue home duloxetine, dose reduced as above -Social work following -Lorazepam PRN for anxiety Endocrine: #Hypothyroidism: -Continue home synthroid Infectious Disease: #Non-neutropenic fever: present on admission and continued x 3 days, possibly disease vs PN A as CXra consistent wit possible PNA. Initial work up negative now with possible line infec tion. Initially on cefepime (03/02-03/21) stopped due to possible drug rash. -Zosyn (03/21-) #Possible line infection: Added Doxycycline 03/10 d/t PICC erythema/tenderness. Changed to Vanco on 03/12 as site worsened despite doxy and left PICC pulled 03/14, replaced 03/15. -Vancomycin (03/12-03/22), dc'd with resolution of infection #Prophylaxis: Bacterial: As above Fungal: Posaconazole, level on 03/14 therapeutic at 1.3 Viral: Acyclovir PCP: Pentam given 03/09/17 Fluid/Nutrition/Lytes: #Nutrition: Regular diet, No Madeline's yogurt or Kefir #Fluid: 1L NS bolus O/N for po intake <2L/day #Lytes; Continue to check chemistries daily. Replace per supportive care protocol. Disposition: Admitted for further work-up and treatment for relapsed AML. Anticipate 3-[address] [facility] admission. Raghavendra Bone PA-C, [facility] [address] [facility] Mailcode: [id number] [place] [address] Kay Duarte MD - 03/25/2017 12:01 PM PSTFormatting of this note may be different from jl baker original. 03/25/2017 Hematologic Malignancies/Blood and marrow Transplant Attending Note I have reviewed and agree with the previously summarized HPI, PMH, FH, SH, and ROS as docum ented in the detailed note of NICOLE provider. I also performed a history and physical examination of the patient myself and agree with jl baker documented findings and plan of care. Subjective: Pt is tired today. Still able to walk laps this morning. Rest of ROS negative. Objective: VSS. PE: sub conjunctival hemorrhage improving, rest of exam non-focal. Labs reviewed and discussed with patient. Brief assessment/plan: The major issues that I am directly managing that require continued hospital admission incl ude: 1. Relapsed AML: s/p FLAG-ARLETTE + midostaurin, day 21. Counts at [facility]. 2. Pancytopenia 2/2 chemotherapy: Continue supportive care with transfusions. 3. Neutropenic fever: Continue Zosyn until count recovery. Today, we will continue the current level of support. Please refer to the NICOLE's note dated today for additional details on the specific plan and orders for today. Kay Duarte MD, MS [facility] Attending physician s total time is 35 minutes, >50% spent counseling and coordination of care. [facility] DEPARTMENT: [id number] - [facility] [place] [facility] Place of Service: - Inpatient Date of Service: 03/25/2017 Modifiers: None Suggested CPT: 09356 - Subsequent, Detailed/High complex 35 min ######################################################### Vitals: Systolic (24hrs), Av , Min:134 , Max:168 Diastolic (24hrs), Av, Min:62, Max:95 Pulse Av.3 Min: 83 Max: 100 Temp Av.7 C (98 F) Min: 36.5 C (97.7 F) Max: 36.8 C (98.2 F) Resp Av Min: 16 Max: 16 SpO2 Av.9 % Min: 90 % Max: 96 % Intake/Output Summary (Last 24 hours) at 03/25/17 1201 Last data filed at 03/25/17 1137 Gross per 24 hour Intake 2581 ml Output 4300 ml Net -1719 ml Current medications: Current Facility-Administered Medications Medication Dose Route Frequency Last Rate acyclovir (ZOVIRAX) tablet 800 mg 800 mg oral DAILY amLODIPine (NORVASC) tablet 10 mg 10 mg oral DAILY DULoxetine (CYMBALTA) capsule 30 mg 30 mg oral BID filgrastim-sndz (ZARXIO) injection 300 mcg 300 mcg subcutaneous QPM AT 1700 hydrocortisone (PROCTOCORT) 1 % rectal cream rectal TID hydrocortisone 1 % cream topical BID levothyroxine tablet 50 mcg 50 mcg oral DAILY lisinopril (PRINIVIL) tablet 5 mg 5 mg oral DAILY midostaurin (RYDAPT) cap 50 mg 50 mg oral QLUNCH omeprazole (PRILOSEC) capsule 20 mg 20 mg oral BEFORE BREAKFAST oxybutynin CR (DITROPAN-XL) tablet 15 mg 15 mg oral DAILY pentamidine (PENTAM) IV 300 mg 300 mg intravenous Q4W Stopped (03/09/17 1230) piperacillin-tazobactam (ZOSYN) IV (minibag+) 4.5 g 4.5 g intravenous Q6H posaconazole DR (NOXAFIL) tablet 300 mg 300 mg oral DAILY prochlorperazine (COMPAZINE) tablet 5-10 mg 5-10 mg oral DAILY tiotropium (SPIRIVA) inhalation 18 mcg 18 mcg inhalation DAILY triamcinolone acetonide (KENALOG) 0.1 % ointment topical BID Allergies: Allergies Allergen Reactions Morphine Rash and Facial Swelling Rash and facial swelling Opioids - Morphine Analogues Confusion Cefepime Rash Laboratory or other studies: Recent Labs 03/22/17233803/23/17230703/24/17 2312 WBC <0.10* <0.10* <0.10* HB 6.8* 8.0* 7.9* HCT 19.6* 23.3* 22.3* PLT 5* 14* 9* Recent Labs 03/22/17233803/23/17230703/24/17 2312 NA 144 141 142 K 3.7 3.6 3.6 CL 105 103 105 BICARB 31 32 30 BUN 10 11 11 CR 0.69 0.62 0.60 CA 8.6 9.1 8.7 MG 2.2 2.1 2.1 PO4 4.1 3.7 3.6 AST 18 21 18 ALT 30 33 33 TBILI 0.5 0.5 0.6 AP 146* 160* 153* ALB 3.0* 3.2* 3.1* TP 6.2* 6.5 6.5 URINE CULTURE [facility] (no units) Date Value 03/05/2016 No growth (<1000 cfu/mL) after 24 hours CULTURE RESULT (no units) Date Value 03/12/2017 Final Report:No Bacteria or Yeast isolated at 5 days. Lab Results Component Value Date APTT 31.7 03/24/2017 FIBRINOGEN 480 (H) 03/24/2017 Raghavendra Bone PA-C,MPAS - 03/25/2017 9:22 AM PSTFormatting of this note may be different f rom the original. Daily NPP Note - Hematologic Malignancies/[facility] Attending: MD KALA Huffman MD: Angela Goldberg MD PCP: Saurav De Los Santos NP Date of Admission: 03/02/17 Hematologic Malignancy: AML ID: 51yo woman with relapsed AML admitted for treatment. PMH includes COPD, depression/anxi ety, learning disability, bladder spasms and hypothyroidism. 24 Hour Events/Current Daily Plan: -AML, relapsed: Currently Day 21 of reinduction with Flag-Arlette + Midostaurin (days 8-21) -Pancytopenia: r/t relapsed disease. Standard transfusion protocol. PPH x 1. -Non-neutropenic fever: present on admission and continued x 3 days, possibly disease vs PN A (initial CXray consistent with possible PNA). CX NGTD. Then line became erythematous/painf ul 03/10 with possible line infection and received course of vancomycin. Continue Zosyn. -Possible line infection: Added Doxycycline 03/10 d/t PICC erythema/tenderness. Line site w orsened so changed to Vanco 03/12 and left PICC pulled 03/14, replaced 03/15. Vanco dc'd wit h in 03/22 with improvement noted. -HTN: despite antihypertensives. Continue amlodipine, added lisinopril on 03/21 and continu e hydralazine PRN -Rash: likely drug rash d/t cefepime. Cefepime dc'd on 03/21 with improvement noted. Now on zosyn. Continue triamcinolone cream BID. -Hx MDD: Teary with difficulty coping with relapsed disease and being away from family. Soc ial work following. Continue Cymbalta 30 mg BID. -Lytes; Standard repletion parameters. None needed today. Subjective: doing well - no major changes -feeling fatigued today Objective: Last Vitals: BP 159/93 | Pulse 100 | Temp 36.6 C (97.9 F) | RR 16 | Ht 1.6 m (5' 3") | Wt 84.7 kg (186 lb 11.7 oz) | SpO2 93% | BMI 33.08 kg/(m^2) 24 Hour Vital Min/Max: Systolic (24hrs), Av , Min:134 , Max:168 Diastolic (24hrs), Av, Min:62, Max:95 Pulse Min: 83 Max: 100 Temp Min: 36.5 C (97.7 F) Max: 36.8 C (98.2 F) Resp Min: 16 Max: 16 SpO2 Min: 90 % Max: 96 % Intake/Output Summary (Last 24 hours) at 03/25/17 0987 Last data filed at 03/25/17 0640 Gross per 24 hour Intake 2851 ml Output 3500 ml Net -649 ml Physical Exam: General: This is a female in NAD. Sitting upright in chair. at bedside. HEENT: PERRL. Scleral hemorrhages bilaterally. Mucosa pink and moist without erythema or exudate. Skin: Erythematous maculopapular rash to back and arms-improving Chest: CTA bilaterally CV: RRR, no murmurs. Abdomen: S/NT/ND with NABS. No HSM appreciated. Extremities: Pulses strong and equal bilaterally. No c/c/e. NeuroPsych: Alert and oriented x 3. Grossly nonfocal exam. CVC: Left arm erythema improved, but stamping mill tender and firm. Right PICC CDI Recent Labs 03/22/17233803/23/17230703/24/17 2312 NA 144 141 142 K 3.7 3.6 3.6 CL 105 103 105 BICARB 31 32 30 BUN 10 11 11 CR 0.69 0.62 0.60 GLU 101* 98 108* CA 8.6 9.1 8.7 AST 18 21 18 ALT 30 33 33 AP 146* 160* 153* TBILI 0.5 0.5 0.6 TP 6.2* 6.5 6.5 ALB 3.0* 3.2* 3.1* Recent Labs 03/04/17 23303/06/1722603/06/17219903/22/17233803/23/17230703/24/17 2312 WBC 7.66 < > 3.38* < > 0.54* < > <0.10* <0.10* <0.10* RBC 2.72* < > 2.66* < > 2.21* < > 2.21* 2.64* 2.59* HB 8.5* < > 8.6* < > 7.1* < > 6.8* 8.0* 7.9* HCT 25.6* < > 25.0* < > 21.1* < > 19.6* 23.3* 22.3* PLT 5* < > 26* < > 23* < > 5* 14* 9* NEUTROPERC 10.5* -- 36.2* -- 38.7* -- -- -- -- LYMPHPERC 14.9* -- 18.4 -- 12.6* -- -- -- -- MONOPERC 7.0 -- 3.3* -- 1.8* -- -- -- -- BASOPERC 0.0 -- 0.0 -- 0.0 -- -- -- -- EOSPERC 0.0* -- 0.0* -- 0.0* -- -- -- -- < > = values in this interval not displayed. Meds: Reviewed on rounds, see current MAR for medication list SUMMARY OF PATIENT'S HOSPITALIZATION Past Medical History: Rhea Hutchison is a 50 year old woman with history of COPD, depression, bladder spasms, hypoth yroidism and AML s/p induction 7+3+dasatinib and MiDAC consolidation (Apr 2016) who present s with AML recurrence. She is here with her and reports that she has had increasing diffuse body pains for approximately the past month. She was seen in her oncology clinic on 03/01 where she was noted to have a WBC 103K, up from her previously normal 5K in November. She reports that she has had increasing fatigue, nausea, vomiting, headache and now a sore at t he base of her inferior incisors in her mouth that occasionally bleed. She has also develop ed petechiae across her abdomen. She was admitted to [facility] where CXR was consistent with pulmonary leukostasis. Per Ca reEverywhere he labs were: WBC of 103,6000 (92% blasts) hgb 13.8 Hct 41.8%, Platelet count o f 10,000, Ldh 4427 U/L (ULN 215 U/L), Bun 14 mg/dL, Scr 0.82 mg/dL. She received fluids,hydroxyurea 2g q4hrs, 3L O2 per minute and a platelet transfusion prior to transfer. She reported no fevers but was febrile upon arrival at [facility]. Review of Systems: Positive for fatigue, night sweats, intermittent non-productive cough, d ecreased appetite, constipation, rash on abdomen, bleeding in mouth Oncology History (adapted from prior heme/onc notes) Last seen at [facility] Apr 2016 for consolidation therapy but per OSH notes, she has had the fol lowing events: Jan 2016 emergent bone marrow bx: bone marrow biopsy and aspiration at [facility] on February 15, 2016 confirmed acute myelogenous leukemia, diploid, positive for FLT-3 tyrosine kinase domai n mutation (also positive for NPM1, DNMT3A, NRAS, NPM1 and TET2 mutations). Induction chemotherapy with conventional 7+3 cytarabine/idarubicin February 16, 2016 with co ntinuous daily dasatinib (Sprycel) complicated by fungal pneumonia, neutropenic fever, hidra denitis suppurativa, and Clostridium Difficile colitis. Repeat bone marrow biopsy on 2015 (day 28); First complete remission. 1. Cycle#3 MiDaC (1200 mg/m Cytarabine) consolidation at [facility] on May 28, 2016. 2. Cycle#4 MiDaC (1000 mg/m Cytarabine ) consolidation at [facility] on June 25, 2016. 3. Bone Marrow Biopsy and Aspiration July 23, 2016 at the [facility] in [place], [place] specimen # [id number] demonstrated ongoing complete remissio n. Molecular analysis was negative for any residual NPM1 mutation positive cells and negativ e for any FLT-3 mutation positive cells (sensitivity is 1 in 20,000). 4. CBC on December 25, 2016; WBC 5,000, Hgb 14.6 gm/dl, Hct 42.7, Platelet 138,000. 5. MRI of right hip on January 25, 2017 in anticipation of right hip replacement; numerou s subcentimeter round marrow repacing lesions within the visualized lower lumbar spine, pelv is, and femurs. 6. CT Chest/Abdomen/Pelvis on February 06, 2017; 3 cm left thyroid mass, no other suggestion of primary neoplasm. 7. Bone scan February 08, 2017; Normal. 8. PET/CT scan on February 27, 2017; diffuse uptake about the spleen and bone marrow. 9. CBC on March 01, 2017; WBC 103,5000 (92% blasts) Hgb 13.8, Hct 41.8%, Platelet count 1 0,000. [id number] U/L, BUN 14 mg/dL, Scr 0.82 mg/dL. 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 -Cytogenetics: 46,X,t(X;7)(q21;q32)[20] -Genetrails: PENDING, preliminary report + FLT3 ITD at 90% allele frequency Treatment: Chemotherapy regimen: received hydrea 03/02-or leukocytosis, then started Flag-Arlette + Midostaurin (Day 1= 03/05/17) -Fludarabine 30mg/m2 (60mg) Daily, Days 1-5 -Idarubicin 8mg/m2 (16mg) Daily, Days 1-3 -Cytarabine 2000mg/m2 (4200mg) Daily, Days 1-5 -Midostaurin 50mg twice daily on Days 8-21 Chemo Day: 21 Transplant: Indicated for transplant with diagnosis of relapsed AML however there may be psychosocial barriers to stem cell transplant. Plan to type sibs in meantime #Pancytopenia d/t relapsed disease and chemo: -See supportive care #Supportive Care: Growth factor: daily filgrastim per FLAG-Arlette protocol. Labs: Continue to check CBC with diff daily Transfusion parameters: -Transfuse PRBCs for HCT <21% if asymptomatic -Transfuse PPH for platelet count <10,000 #Bleeding, noted epistaxis and bleeding from PICC site, noted 03/04. Likely due to decreased platelet production and not DIC. Required enhanced platelet transfusions and tranexamic aci d TID stopped 03/07 with improved bleeding and corrected INR. Received Vitamin K x3 days. RES OLVED Cardiovascular: TTE completed 03/04 with EF=70%. #HTN: despite antihypertensives. -Continue amlodipine -lisinopril 5 mg daily, started 03/21 -hydralazine PRN #Prolonged QTc: QTc 563 on EKG, was not prolonged on previous admissions. -Will monitor electrolytes and QTc prolonging medications closely. Derm: #Rash: likely drug rash d/t cefepime. Cefepime dc'd on 03/21 with improvement noted. Now on zosyn. -Cefepime added to allergies -Continue triamcinolone cream BID. Pulmonary: #GGO; noted on CXR (03/05) and CT Chest (03/05) show extensive bilateral ground glass and con solidative opacities are new compared to 03/02/2017, possibly r/t leukostasis vs. DAH vs. inf ection. Lactate 03/04= 0.8. -Treat leukemia as above -Abx as above -Keep platelets >20K -Supplemental O2 PRN #COPD: Home inhalers ordered #FVO r/t MIVF: -Decreased MIVF -Diurese PRN GI: #Hemorrhoidal pain: -prn proctocort -Stool softereners Neuro/Psych: #Diffuse pain: Likely due to hematologic malignancy. Morphine allergy but per patient other opioids OK. RESOLVED - Tylenol - Oxycodone PRN #Depression/Anxiety: -Continue home duloxetine, dose reduced as above -Social work following -Lorazepam PRN for anxiety Endocrine: #Hypothyroidism: -Continue home synthroid Infectious Disease: #Non-neutropenic fever: present on admission and continued x 3 days, possibly disease vs PN A as CXra consistent wit possible PNA. Initial work up negative now with possible line infec tion. Initially on cefepime (03/02-03/21) stopped due to possible drug rash. -Zosyn (03/21-) #Possible line infection: Added Doxycycline 03/10 d/t PICC erythema/tenderness. Changed to Vanco on 03/12 as site worsened despite doxy and left PICC pulled 03/14, replaced 03/15. -Vancomycin (03/12-03/22), dc'd with resolution of infection #Prophylaxis: Bacterial: As above Fungal: Posaconazole, level on 03/14 therapeutic at 1.3 Viral: Acyclovir PCP: Pentam given 03/09/17 Fluid/Nutrition/Lytes: #Nutrition: Regular diet, No Madeline's yogurt or Kefir #Fluid: 1L NS bolus O/N for po intake <2L/day #Lytes; Continue to check chemistries daily. Replace per supportive care protocol. Disposition: Admitted for further work-up and treatment for relapsed AML. Anticipate 3-[address] [facility] admission. Raghavendra Bone PA-C, NA[facility] [address] [facility] Mailcode: [facility] [place] [address] Raghavendra Bone PA-C,NAOMY - 03/24/2017 9:27 AM PSTFormatting of this note may be different f rom the original. Daily NPP Note - Hematologic Malignancies/Chemo Admit [facility] for Hematologic Malignancies Attending: MD KALA Huffman MD: Angela Goldberg MD PCP: Saurav De Los Santos NP Date of Admission: 03/02/17 Hematologic Malignancy: AML ID: 51yo woman with relapsed AML admitted for treatment. PMH includes COPD, depression/anxi ety, learning disability, bladder spasms and hypothyroidism. 24 Hour Events/Current Daily Plan: -AML, relapsed: Currently Day 20 of reinduction with Flag-Arlette + Midostaurin (days 8-21) -Pancytopenia: r/t relapsed disease. Standard transfusion protocol. None today. -Non-neutropenic fever: present on admission and continued x 3 days, possibly disease vs PN A (initial CXray consistent with possible PNA). CX NGTD. Then line became erythematous/painf ul 03/10 with possible line infection and received course of vancomycin. Continue Zosyn. -Possible line infection: Added Doxycycline 03/10 d/t PICC erythema/tenderness. Line site w orsened so changed to Vanco 03/12 and left PICC pulled 03/14, replaced 03/15. Vanco dc'd wit h in 03/22 with improvement noted. -HTN: despite antihypertensives. Continue amlodipine, added lisinopril on 03/21 and continu e hydralazine PRN -Rash: likely drug rash d/t cefepime. Cefepime dc'd on 03/21 with improvement noted. Now on zosyn. Continue triamcinolone cream BID. -Hx MDD: Teary with difficulty coping with relapsed disease and being away from family. Soc ial work following. Continue Cymbalta 30 mg BID. -Lytes; Standard repletion parameters. None needed today. Subjective: doing well - no major changes - walking frequently Objective: Last Vitals: BP 144/88 | Pulse 81 | Temp 36.5 C (97.7 F) | RR 16 | Ht 1.6 m (5' 3") | W t 83.9 kg (185 lb) | SpO2 97% | BMI 32.77 kg/(m^2) 24 Hour Vital Min/Max: Systolic (24hrs), Av , Min:130 , Max:153 Diastolic (24hrs), Av, Min:69, Max:91 Pulse Min: 79 Max: 102 Temp Min: 36.5 C (97.7 F) Max: 36.8 C (98.2 F) Resp Min: 15 Max: 16 SpO2 Min: 90 % Max: 98 % Intake/Output Summary (Last 24 hours) at 03/24/17 0927 Last data filed at 03/24/17 0756 Gross per 24 hour Intake 4360 ml Output 4525 ml Net -165 ml Physical Exam: General: This is a female in NAD. Sitting upright in chair. at bedside. HEENT: PERRL. Scleral hemorrhages bilaterally. Mucosa pink and moist without erythema or exudate. Skin: Erythematous maculopapular rash to back and arms-improving Chest: CTA bilaterally CV: RRR, no murmurs. Abdomen: S/NT/ND with NABS. No HSM appreciated. Extremities: Pulses strong and equal bilaterally. No c/c/e. NeuroPsych: Alert and oriented x 3. Grossly nonfocal exam. CVC: Left arm erythema improved, but stamping mill tender and firm. Right PICC CDI Recent Labs 03/21/17 2308 03/22/17 2339 03/23/17 2308 NA 139 144 141 K 3.5 3.7 3.6 CL 103 105 103 BICARB 29 31 32 BUN 11 10 11 CR 0.66 0.69 0.62 GLU 116* 101* 98 CA 8.6 8.6 9.1 AST 15 18 21 ALT 32 30 33 AP 156* 146* 160* TBILI 0.6 0.5 0.5 TP 6.4 6.2* 6.5 ALB 3.1* 3.0* 3.2* Recent Labs 03/04/17 2330 03/06/1722603/06/17219903/21/17230703/22/17233803/23/172307 WBC 7.66 < > 3.38* < > 0.54* < > <0.10* <0.10* <0.10* RBC 2.72* < > 2.66* < > 2.21* < > 2.40* 2.21* 2.64* HB 8.5* < > 8.6* < > 7.1* < > 7.3* 6.8* 8.0* HCT 25.6* < > 25.0* < > 21.1* < > 21.6* 19.6* 23.3* PLT 5* < > 26* < > 23* < > 12* 5* 14* NEUTROPERC 10.5* -- 36.2* -- 38.7* -- -- -- -- LYMPHPERC 14.9* -- 18.4 -- 12.6* -- -- -- -- MONOPERC 7.0 -- 3.3* -- 1.8* -- -- -- -- BASOPERC 0.0 -- 0.0 -- 0.0 -- -- -- -- EOSPERC 0.0* -- 0.0* -- 0.0* -- -- -- -- < > = values in this interval not displayed. Meds: Reviewed on rounds, see current MAR for medication list SUMMARY OF PATIENT'S HOSPITALIZATION Past Medical History: Rhea Hutchison is a 50 year old woman with history of COPD, depression, bladder spasms, hypoth yroidism and AML s/p induction 7+3+dasatinib and MiDAC consolidation (Apr 2016) who present s with AML recurrence. She is here with her and reports that she has had increasing diffuse body pains for approximately the past month. She was seen in her oncology clinic on 03/01 where she was noted to have a WBC 103K, up from her previously normal 5K in November. She reports that she has had increasing fatigue, nausea, vomiting, headache and now a sore at t he base of her inferior incisors in her mouth that occasionally bleed. She has also develop ed petechiae across her abdomen. She was admitted to [facility] where CXR was consistent with pulmonary leukostasis. Per Ca reEverywhere he labs were: WBC of 103,6000 (92% blasts) hgb 13.8 Hct 41.8%, Platelet count o f 10,000, Ldh 4427 U/L (ULN 215 U/L), Bun 14 mg/dL, Scr 0.82 mg/dL. She received fluids,hydroxyurea 2g q4hrs, 3L O2 per minute and a platelet transfusion prior to transfer. She reported no fevers but was febrile upon arrival at [facility]. Review of Systems: Positive for fatigue, night sweats, intermittent non-productive cough, d ecreased appetite, constipation, rash on abdomen, bleeding in mouth Oncology History (adapted from prior heme/onc notes) Last seen at [facility] Apr 2016 for consolidation therapy but per OSH notes, she has had the fol lowing events: Jan 2016 emergent bone marrow bx: bone marrow biopsy and aspiration at [facility] on February 15, 2016 confirmed acute myelogenous leukemia, diploid, positive for FLT-3 tyrosine kinase domai n mutation (also positive for NPM1, DNMT3A, NRAS, NPM1 and TET2 mutations). Induction chemotherapy with conventional 7+3 cytarabine/idarubicin February 16, 2016 with co ntinuous daily dasatinib (Sprycel) complicated by fungal pneumonia, neutropenic fever, hidra denitis suppurativa, and Clostridium Difficile colitis. Repeat bone marrow biopsy on 2015 (day 28); First complete remission. 1. Cycle#3 MiDaC (1200 mg/m Cytarabine) consolidation at [facility] on May 28, 2016. 2. Cycle#4 MiDaC (1000 mg/m Cytarabine ) consolidation at [facility] on June 25, 2016. 3. Bone Marrow Biopsy and Aspiration July 23, 2016 at the [facility] in [place], [place] specimen # [id number] demonstrated ongoing complete remissio n. Molecular analysis was negative for any residual NPM1 mutation positive cells and negativ e for any FLT-3 mutation positive cells (sensitivity is 1 in 20,000). 4. CBC on December 25, 2016; WBC 5,000, Hgb 14.6 gm/dl, Hct 42.7, Platelet 138,000. 5. MRI of right hip on January 25, 2017 in anticipation of right hip replacement; numerou s subcentimeter round marrow repacing lesions within the visualized lower lumbar spine, pelv is, and femurs. 6. CT Chest/Abdomen/Pelvis on February 06, 2017; 3 cm left thyroid mass, no other suggestion of primary neoplasm. 7. Bone scan February 08, 2017; Normal. 8. PET/CT scan on February 27, 2017; diffuse uptake about the spleen and bone marrow. 9. CBC on March 01, 2017; WBC 103,5000 (92% blasts) Hgb 13.8, Hct 41.8%, Platelet count 1 0,000. [id number] U/L, BUN 14 mg/dL, Scr 0.82 mg/dL. 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 -Cytogenetics: 46,X,t(X;7)(q21;q32)[20] -Genetrails: PENDING, preliminary report + FLT3 ITD at 90% allele frequency Treatment: Chemotherapy regimen: received hydrea 03/02-or leukocytosis, then started Flag-Arlette + Midostaurin (Day 1= 03/05/17) -Fludarabine 30mg/m2 (60mg) Daily, Days 1-5 -Idarubicin 8mg/m2 (16mg) Daily, Days 1-3 -Cytarabine 2000mg/m2 (4200mg) Daily, Days 1-5 -Midostaurin 50mg twice daily on Days 8-21 Chemo Day: 20 Transplant: Indicated for transplant with diagnosis of relapsed AML however there may be psychosocial barriers to stem cell transplant. Plan to type sibs in meantime #Pancytopenia d/t relapsed disease and chemo: -See supportive care #Supportive Care: Growth factor: daily filgrastim per FLAG-Arlette protocol. Labs: Continue to check CBC with diff daily Transfusion parameters: -Transfuse PRBCs for HCT <21% if asymptomatic -Transfuse PPH for platelet count <10,000 #Bleeding, noted epistaxis and bleeding from PICC site, noted 03/04. Likely due to decreased platelet production and not DIC. Required enhanced platelet transfusions and tranexamic aci d TID stopped 03/07 with improved bleeding and corrected INR. Received Vitamin K x3 days. RES OLVED Cardiovascular: TTE completed 03/04 with EF=70%. #HTN: despite antihypertensives. -Continue amlodipine -lisinopril 5 mg daily, started 03/21 -hydralazine PRN #Prolonged QTc: QTc 563 on EKG, was not prolonged on previous admissions. -Will monitor electrolytes and QTc prolonging medications closely. Derm: #Rash: likely drug rash d/t cefepime. Cefepime dc'd on 03/21 with improvement noted. Now on zosyn. -Cefepime added to allergies -Continue triamcinolone cream BID. Pulmonary: #GGO; noted on CXR (03/05) and CT Chest (03/05) show extensive bilateral ground glass and con solidative opacities are new compared to 03/02/2017, possibly r/t leukostasis vs. DAH vs. inf ection. Lactate 03/04= 0.8. -Treat leukemia as above -Abx as above -Keep platelets >20K -Supplemental O2 PRN #COPD: Home inhalers ordered #FVO r/t MIVF: -Decreased MIVF -Diurese PRN GI: #Hemorrhoidal pain: -prn proctocort -Stool softereners Neuro/Psych: #Diffuse pain: Likely due to hematologic malignancy. Morphine allergy but per patient other opioids OK. RESOLVED - Tylenol - Oxycodone PRN #Depression/Anxiety: -Continue home duloxetine, dose reduced as above -Social work following -Lorazepam PRN for anxiety Endocrine: #Hypothyroidism: -Continue home synthroid Infectious Disease: #Non-neutropenic fever: present on admission and continued x 3 days, possibly disease vs PN A as CXra consistent wit possible PNA. Initial work up negative now with possible line infec tion. Initially on cefepime (03/02-03/21) stopped due to possible drug rash. -Zosyn (03/21-) #Possible line infection: Added Doxycycline 03/10 d/t PICC erythema/tenderness. Changed to Vanco on 03/12 as site worsened despite doxy and left PICC pulled 03/14, replaced 03/15. -Vancomycin (03/12-03/22), dc'd with resolution of infection #Prophylaxis: Bacterial: As above Fungal: Posaconazole, level on 03/14 therapeutic at 1.3 Viral: Acyclovir PCP: Pentam given 03/09/17 Fluid/Nutrition/Lytes: #Nutrition: Regular diet, No Madeline's yogurt or Kefir #Fluid: 1L NS bolus O/N for po intake <2L/day #Lytes; Continue to check chemistries daily. Replace per supportive care protocol. Disposition: Admitted for further work-up and treatment for relapsed AML. Anticipate 3-[address] [facility] admission. Raghavendra Bone PA-C, MPAS [facility] [address] [facility] Mailcode: [facility] [place] [address] Associated attestation - Kay Duarte MD - 03/24/2017 12:34 PM PSTFormatting of this note may be different from the original. 03/24/2017 Hematologic Malignancies/Blood and marrow Transplant Attending Note I have reviewed and agree with the previously summarized HPI, PMH, FH, SH, and ROS as docum ented in the detailed note of NICOLE provider . I also performed a history and physical examination of the patient myself and agree with jl baker documented findings and plan of care. Pt says she feels better. Rest of ROS is negative. VSS PE: Resolving sub conjunctival hemorrhage, rest of exam no-focal. Ext: No edema, no CT. Labs reviewed and discussed with pt. Brief assessment/plan: The major issues that I am directly managing that require continued hospital admission incl ude: 1. Relapsed AML: s/p FLAG-ARLETTE -counts at [place]. 2. Pancytopenia sec chemotherapy: Continue supportive transfusions. 3. Neutropenic fever: Continue IV antibiotics until WBC recovery Today, we will continue the current level of support. Please refer to the NICOLE's note dated today for additional details on the specific plan and orders for today. Kay Duarte MD, M.S. [facility] Attending physician s total time is 35 minutes, >50% spent counseling and coordination of care. [facility] DEPARTMENT: [id number] - [facility] [place] [facility] Place of Service: - Inpatient Date of Service: 03/24/2017 Modifiers: None Suggested CPT: 30887 - Subsequent, Detailed/High complex 35 min ######################################################### Vitals: Systolic (24hrs), Av , Min:130 , Max:153 Diastolic (24hrs), Av, Min:69, Max:91 Pulse Av.4 Min: 81 Max: 102 Temp Av.6 C (97.9 F) Min: 36.5 C (97.7 F) Max: 36.8 C (98.2 F) Resp Av.7 Min: 15 Max: 16 SpO2 Av.7 % Min: 90 % Max: 97 % Intake/Output Summary (Last 24 hours) at 03/24/17 1222 Last data filed at 03/24/17 1203 Gross per 24 hour Intake 4450 ml Output 3725 ml Net 725 ml Current medications: Current Facility-Administered Medications Medication Dose Route Frequency Last Rate acyclovir (ZOVIRAX) tablet 800 mg 800 mg oral DAILY amLODIPine (NORVASC) tablet 10 mg 10 mg oral DAILY DULoxetine (CYMBALTA) capsule 30 mg 30 mg oral BID filgrastim-sndz (ZARXIO) injection 300 mcg 300 mcg subcutaneous QPM AT 1700 hydrocortisone (PROCTOCORT) 1 % rectal cream rectal TID hydrocortisone 1 % cream topical BID levothyroxine tablet 50 mcg 50 mcg oral DAILY lisinopril (PRINIVIL) tablet 5 mg 5 mg oral DAILY midostaurin (RYDAPT) cap 50 mg 50 mg oral QLUNCH omeprazole (PRILOSEC) capsule 20 mg 20 mg oral BEFORE BREAKFAST oxybutynin CR (DITROPAN-XL) tablet 15 mg 15 mg oral DAILY pentamidine (PENTAM) IV 300 mg 300 mg intravenous Q4W Stopped (03/09/17 1230) piperacillin-tazobactam (ZOSYN) IV (minibag+) 4.5 g 4.5 g intravenous Q6H posaconazole DR (NOXAFIL) tablet 300 mg 300 mg oral DAILY prochlorperazine (COMPAZINE) tablet 5-10 mg 5-10 mg oral DAILY tiotropium (SPIRIVA) inhalation 18 mcg 18 mcg inhalation DAILY triamcinolone acetonide (KENALOG) 0.1 % ointment topical BID Allergies: Allergies Allergen Reactions Morphine Rash and Facial Swelling Rash and facial swelling Opioids - Morphine Analogues Confusion Cefepime Rash Laboratory or other studies: Recent Labs 03/21/17230703/22/17233803/23/172307 WBC <0.10* <0.10* <0.10* HB 7.3* 6.8* 8.0* HCT 21.6* 19.6* 23.3* PLT 12* 5* 14* Recent Labs 03/21/17230703/22/17233803/23/172307 NA 139 144 141 K 3.5 3.7 3.6 CL 103 105 103 BICARB 29 31 32 BUN 11 10 11 CR 0.66 0.69 0.62 CA 8.6 8.6 9.1 MG 1.9 2.2 2.1 PO4 4.1 4.1 3.7 AST 15 18 21 ALT 32 30 33 TBILI 0.6 0.5 0.5 AP 156* 146* 160* ALB 3.1* 3.0* 3.2* TP 6.4 6.2* 6.5 URINE CULTURE [facility] (no units) Date Value 03/05/2016 No growth (<1000 cfu/mL) after 24 hours CULTURE RESULT (no units) Date Value 03/12/2017 Final Report:No Bacteria or Yeast isolated at 5 days. Lab Results Component Value Date APTT 30.3 03/23/2017 FIBRINOGEN 450 03/23/2017 Conor Carreon, LUANA - 03/23/2017 11:01 PM PSTI have relinquished care of this patient.Sukhwinder Bone PA-C,RUSTS - 03/23/2017 9:20 AM PSTFormatting of this note may be different from the o riginal. Daily NPP Note - Hematologic Malignancies/[facility] Attending: MD KALA Huffman MD: Angela Goldberg MD PCP: Saurav De Los Santos NP Date of Admission: 03/02/17 Hematologic Malignancy: AML ID: 51yo woman with relapsed AML admitted for treatment. PMH includes COPD, depression/anxi ety, learning disability, bladder spasms and hypothyroidism. 24 Hour Events/Current Daily Plan: -AML, relapsed: Currently Day 19 of reinduction with Flag-Arlette + Midostaurin (days 8-21) -Pancytopenia: r/t relapsed disease. Standard transfusion protocol. PRBCs and PPH x 1. -Non-neutropenic fever: present on admission and continued x 3 days, possibly disease vs PN A (initial CXray consistent with possible PNA). CX NGTD. Then line became erythematous/painf ul 03/10 with possible line infection and received course of vancomycin. Continue Zosyn. -Possible line infection: Added Doxycycline 03/10 d/t PICC erythema/tenderness. Line site w orsened so changed to Vanco 03/12 and left PICC pulled 03/14, replaced 03/15. Vanco dc'd wit h in 03/22 with improvement noted. -HTN: despite antihypertensives. Continue amlodipine, added lisinopril on 03/21 and continu e hydralazine PRN -Rash: likely drug rash d/t cefepime. Cefepime dc'd on 03/21 with improvement noted. Now on zosyn. Continue triamcinolone cream BID. -Hx MDD: Teary with difficulty coping with relapsed disease and being away from family. Soc ial work following. Continue Cymbalta 30 mg BID. -Lytes; Standard repletion parameters. None needed today. Subjective: Rash improved - overall feeling well - nursing reports tearful and having troub le coping with details of possible transplant Objective: Last Vitals: BP 138/81 | Pulse 99 | Temp 36.8 C (98.2 F) | RR 16 | Ht 1.6 m (5' 3") | W t 87.1 kg (192 lb 0.3 oz) | SpO2 90% | BMI 34.01 kg/(m^2) 24 Hour Vital Min/Max: Systolic (24hrs), Av , Min:129 , Max:148 Diastolic (24hrs), Av, Min:63, Max:85 Pulse Min: 83 Max: 99 Temp Min: 36.5 C (97.7 F) Max: 36.9 C (98.4 F) Resp Min: 16 Max: 18 SpO2 Min: 90 % Max: 96 % Intake/Output Summary (Last 24 hours) at 03/23/17 0920 Last data filed at 03/23/17 0700 Gross per 24 hour Intake 4266 ml Output 3025 ml Net 1241 ml Physical Exam: General: This is a female in NAD. Sitting upright in chair. at bedside. HEENT: PERRL. Scleral hemorrhages bilaterally. Mucosa pink and moist without erythema or exudate. Skin: Erythematous maculopapular rash to back and arms-improving Chest: CTA bilaterally CV: RRR, no murmurs. Abdomen: S/NT/ND with NABS. No HSM appreciated. Extremities: Pulses strong and equal bilaterally. No c/c/e. NeuroPsych: Alert and oriented x 3. Grossly nonfocal exam. CVC: Left arm erythema improved, but stamping mill tender and firm. Right PICC CDI Recent Labs 03/21/173303/21/17230703/22/17 2339 NA 140 139 144 K 3.5 3.5 3.7 CL 101 103 105 BICARB 31 29 31 BUN 12 11 10 CR 0.51* 0.66 0.69 GLU 94 116* 101* CA 8.8 8.6 8.6 AST 14 15 18 ALT 33 32 30 AP 161* 156* 146* TBILI 0.5 0.6 0.5 TP 6.4 6.4 6.2* ALB 3.2* 3.1* 3.0* Recent Labs 03/04/17 2330 03/06/17 0227 03/06/17 2200 03/21/17 0034 03/21/17 2308 03/22/17 2339 WBC 7.66 < > 3.38* < > 0.54* < > <0.10* <0.10* <0.10* RBC 2.72* < > 2.66* < > 2.21* < > 2.38* 2.40* 2.21* HB 8.5* < > 8.6* < > 7.1* < > 7.5* 7.3* 6.8* HCT 25.6* < > 25.0* < > 21.1* < > 21.4* 21.6* 19.6* PLT 5* < > 26* < > 23* < > 16* 12* 5* NEUTROPERC 10.5* -- 36.2* -- 38.7* -- -- -- -- LYMPHPERC 14.9* -- 18.4 -- 12.6* -- -- -- -- MONOPERC 7.0 -- 3.3* -- 1.8* -- -- -- -- BASOPERC 0.0 -- 0.0 -- 0.0 -- -- -- -- EOSPERC 0.0* -- 0.0* -- 0.0* -- -- -- -- < > = values in this interval not displayed. Meds: Reviewed on rounds, see current MAR for medication list SUMMARY OF PATIENT'S HOSPITALIZATION Past Medical History: Rhea Hutchison is a 50 year old woman with history of COPD, depression, bladder spasms, hypoth yroidism and AML s/p induction 7+3+dasatinib and MiDAC consolidation (Apr 2016) who present s with AML recurrence. She is here with her and reports that she has had increasing diffuse body pains for approximately the past month. She was seen in her oncology clinic on 03/01 where she was noted to have a WBC 103K, up from her previously normal 5K in November. She reports that she has had increasing fatigue, nausea, vomiting, headache and now a sore at t he base of her inferior incisors in her mouth that occasionally bleed. She has also develop ed petechiae across her abdomen. She was admitted to [facility] where CXR was consistent with pulmonary leukostasis. Per Ca reEverywhere he labs were: WBC of 103,6000 (92% blasts) hgb 13.8 Hct 41.8%, Platelet count o f 10,000, Ldh 4427 U/L (ULN 215 U/L), Bun 14 mg/dL, Scr 0.82 mg/dL. She received fluids,hydroxyurea 2g q4hrs, 3L O2 per minute and a platelet transfusion prior to transfer. She reported no fevers but was febrile upon arrival at [facility]. Review of Systems: Positive for fatigue, night sweats, intermittent non-productive cough, d ecreased appetite, constipation, rash on abdomen, bleeding in mouth Oncology History (adapted from prior heme/onc notes) Last seen at [facility] Apr 2016 for consolidation therapy but per OSH notes, she has had the fol lowing events: Jan 2016 emergent bone marrow bx: bone marrow biopsy and aspiration at [facility] on February 15, 2016 confirmed acute myelogenous leukemia, diploid, positive for FLT-3 tyrosine kinase domai n mutation (also positive for NPM1, DNMT3A, NRAS, NPM1 and TET2 mutations). Induction chemotherapy with conventional 7+3 cytarabine/idarubicin February 16, 2016 with co ntinuous daily dasatinib (Sprycel) complicated by fungal pneumonia, neutropenic fever, hidra denitis suppurativa, and Clostridium Difficile colitis. Repeat bone marrow biopsy on 2015 (day 28); First complete remission. 1. Cycle#3 MiDaC (1200 mg/m Cytarabine) consolidation at [facility] on May 28, 2016. 2. Cycle#4 MiDaC (1000 mg/m Cytarabine ) consolidation at [facility] on June 25, 2016. 3. Bone Marrow Biopsy and Aspiration July 23, 2016 at the [facility] in [place], [place] specimen # [id number] demonstrated ongoing complete remissio n. Molecular analysis was negative for any residual NPM1 mutation positive cells and negativ e for any FLT-3 mutation positive cells (sensitivity is 1 in 20,000). 4. CBC on December 25, 2016; WBC 5,000, Hgb 14.6 gm/dl, Hct 42.7, Platelet 138,000. 5. MRI of right hip on January 25, 2017 in anticipation of right hip replacement; numerou s subcentimeter round marrow repacing lesions within the visualized lower lumbar spine, pelv is, and femurs. 6. CT Chest/Abdomen/Pelvis on February 06, 2017; 3 cm left thyroid mass, no other suggestion of primary neoplasm. 7. Bone scan February 08, 2017; Normal. 8. PET/CT scan on February 27, 2017; diffuse uptake about the spleen and bone marrow. 9. CBC on March 01, 2017; WBC 103,5000 (92% blasts) Hgb 13.8, Hct 41.8%, Platelet count 1 0,000. [id number] U/L, BUN 14 mg/dL, Scr 0.82 mg/dL. 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 -Cytogenetics: 46,X,t(X;7)(q21;q32)[20] -Genetrails: PENDING, preliminary report + FLT3 ITD at 90% allele frequency Treatment: Chemotherapy regimen: received hydrea 03/02-or leukocytosis, then started Flag-Arlette + Midostaurin (Day 1= 03/05/17) -Fludarabine 30mg/m2 (60mg) Daily, Days 1-5 -Idarubicin 8mg/m2 (16mg) Daily, Days 1-3 -Cytarabine 2000mg/m2 (4200mg) Daily, Days 1-5 -Midostaurin 50mg twice daily on Days 8-21 Chemo Day: 19 Transplant: Indicated for transplant with diagnosis of relapsed AML however there may be psychosocial barriers to stem cell transplant. Plan to type sibs in meantime #Pancytopenia d/t relapsed disease and chemo: -See supportive care #Supportive Care: Growth factor: daily filgrastim per FLAG-Arlette protocol. Labs: Continue to check CBC with diff daily Transfusion parameters: -Transfuse PRBCs for HCT <21% if asymptomatic -Transfuse PPH for platelet count <10,000 #Bleeding, noted epistaxis and bleeding from PICC site, noted 03/04. Likely due to decreased platelet production and not DIC. Required enhanced platelet transfusions and tranexamic aci d TID stopped 03/07 with improved bleeding and corrected INR. Received Vitamin K x3 days. RES OLVED Cardiovascular: TTE completed 03/04 with EF=70%. #HTN: despite antihypertensives. -Continue amlodipine -lisinopril 5 mg daily, started 03/21 -hydralazine PRN #Prolonged QTc: QTc 563 on EKG, was not prolonged on previous admissions. -Will monitor electrolytes and QTc prolonging medications closely. Derm: #Rash: likely drug rash d/t cefepime. Cefepime dc'd on 03/21 with improvement noted. Now on zosyn. -Cefepime added to allergies -Continue triamcinolone cream BID. Pulmonary: #GGO; noted on CXR (03/05) and CT Chest (03/05) show extensive bilateral ground glass and con solidative opacities are new compared to 03/02/2017, possibly r/t leukostasis vs. DAH vs. inf ection. Lactate 03/04= 0.8. -Treat leukemia as above -Abx as above -Keep platelets >20K -Supplemental O2 PRN #COPD: Home inhalers ordered #FVO r/t MIVF: -Decreased MIVF -Diurese PRN GI: #Hemorrhoidal pain: -prn proctocort -Stool softereners Neuro/Psych: #Diffuse pain: Likely due to hematologic malignancy. Morphine allergy but per patient other opioids OK. RESOLVED - Tylenol - Oxycodone PRN #Depression/Anxiety: -Continue home duloxetine, dose reduced as above -Social work following -Lorazepam PRN for anxiety Endocrine: #Hypothyroidism: -Continue home synthroid Infectious Disease: #Non-neutropenic fever: present on admission and continued x 3 days, possibly disease vs PN A as CXra consistent wit possible PNA. Initial work up negative now with possible line infec tion. Initially on cefepime (03/02-03/21) stopped due to possible drug rash. -Zosyn (03/21-) #Possible line infection: Added Doxycycline 03/10 d/t PICC erythema/tenderness. Changed to Vanco on 03/12 as site worsened despite doxy and left PICC pulled 03/14, replaced 03/15. -Vancomycin (03/12-03/22), dc'd with resolution of infection #Prophylaxis: Bacterial: As above Fungal: Posaconazole, level on 03/14 therapeutic at 1.3 Viral: Acyclovir PCP: Pentam given 03/09/17 Fluid/Nutrition/Lytes: #Nutrition: Regular diet, No Madeline's yogurt or Kefir #Fluid: 1L NS bolus O/N for po intake <2L/day #Lytes; Continue to check chemistries daily. Replace per supportive care protocol. Disposition: Admitted for further work-up and treatment for relapsed AML. Anticipate 3-[address] [facility] admission. Raghavendra Bone PA-C, MPAS [facility] [address] [facility] Mailcode: [facility] [place] [address] Associated attestation - Kay Duarte MD - 03/23/2017 12:17 PM PSTFormatting of this note may be different from the original. 03/23/2017 Hematologic Malignancies/Blood and marrow Transplant Attending Note I have reviewed and agree with the previously summarized HPI, PMH, FH, SH, and ROS as docum ented in the detailed note of NICOLE provider . I also performed a history and physical examination of the patient myself and agree with th e documented findings and plan of care. Pt has a slight headache. Rest of ROS is negative. VSS PE : + resolving sub conjunctival hemorrhages, rest of exam non-focal. Labs reviewed with pt. A and P: 1.Relapsed AML: s/p FLAG-ARLETTE/Mido for FLT3 pos disease. Continue to F/U counts 2. Neutropenic fever: Continue IV antibiotics until count recovery. 3. Pancytopenia sec chemotherapy: Continue supportive transfusions. Today, we will continue the current level of support. Please refer to the NICOLE's note dated today for additional details on the specific plan and orders for today. Kay Duarte MD, M.S. [facility] Attending physician s total time is 35 minutes, >50% spent counseling and coordination of care. [facility] DEPARTMENT: [id number] - [facility] [place] Place of Service: - Inpatient Date of Service: 03/23/2017 Modifiers: None Suggested CPT: 79018 - Subsequent, Detailed/High complex 35 min ######################################################### Vitals: Systolic (24hrs), Av , Min:129 , Max:148 Diastolic (24hrs), Av, Min:63, Max:85 Pulse Av Min: 83 Max: 99 Temp Av.7 C (98.1 F) Min: 36.5 C (97.7 F) Max: 36.9 C (98.4 F) Resp Av.3 Min: 16 Max: 18 SpO2 Av.9 % Min: 90 % Max: 96 % Intake/Output Summary (Last 24 hours) at 03/23/17 1213 Last data filed at 03/23/17 0700 Gross per 24 hour Intake 3646 ml Output 2575 ml Net 1071 ml Current medications: Current Facility-Administered Medications Medication Dose Route Frequency Last Rate acyclovir (ZOVIRAX) tablet 800 mg 800 mg oral DAILY amLODIPine (NORVASC) tablet 10 mg 10 mg oral DAILY DULoxetine (CYMBALTA) capsule 30 mg 30 mg oral BID filgrastim-sndz (ZARXIO) injection 300 mcg 300 mcg subcutaneous QPM AT 1700 hydrocortisone (PROCTOCORT) 1 % rectal cream rectal TID hydrocortisone 1 % cream topical BID levothyroxine tablet 50 mcg 50 mcg oral DAILY lisinopril (PRINIVIL) tablet 5 mg 5 mg oral DAILY midostaurin (RYDAPT) cap 50 mg 50 mg oral QLUNCH omeprazole (PRILOSEC) capsule 20 mg 20 mg oral BEFORE BREAKFAST oxybutynin CR (DITROPAN-XL) tablet 15 mg 15 mg oral DAILY pentamidine (PENTAM) IV 300 mg 300 mg intravenous Q4W Stopped (03/09/17 1230) piperacillin-tazobactam (ZOSYN) IV (minibag+) 4.5 g 4.5 g intravenous Q6H posaconazole DR (NOXAFIL) tablet 300 mg 300 mg oral DAILY prochlorperazine (COMPAZINE) tablet 5-10 mg 5-10 mg oral DAILY tiotropium (SPIRIVA) inhalation 18 mcg 18 mcg inhalation DAILY triamcinolone acetonide (KENALOG) 0.1 % ointment topical BID Allergies: Allergies Allergen Reactions Morphine Rash and Facial Swelling Rash and facial swelling Opioids - Morphine Analogues Confusion Cefepime Rash Laboratory or other studies: Recent Labs 03/21/173303/21/17230703/22/17 2339 WBC <0.10* <0.10* <0.10* HB 7.5* 7.3* 6.8* HCT 21.4* 21.6* 19.6* PLT 16* 12* 5* Recent Labs 03/21/173303/21/17230703/22/17 2339 NA 140 139 144 K 3.5 3.5 3.7 CL 101 103 105 BICARB 31 29 31 BUN 12 11 10 CR 0.51* 0.66 0.69 CA 8.8 8.6 8.6 MG 1.9 1.9 2.2 PO4 3.8 4.1 4.1 AST 14 15 18 ALT 33 32 30 TBILI 0.5 0.6 0.5 AP 161* 156* 146* ALB 3.2* 3.1* 3.0* TP 6.4 6.4 6.2* URINE CULTURE [facility] (no units) Date Value 03/05/2016 No growth (<1000 cfu/mL) after 24 hours CULTURE RESULT (no units) Date Value 03/12/2017 Final Report:No Bacteria or Yeast isolated at 5 days. Lab Results Component Value Date APTT 32.2 03/22/2017 FIBRINOGEN 457 (H) 03/22/2017 Renea Bell MD - 03/22/2017 8:34 PM PSTFormatting of this note may be different from t kelly original. 03/22/2017 Hematologic Malignancies/Blood and marrow Transplant Attending Note I have reviewed and agree with the previously summarized HPI, PMH, FH, SH, and ROS as docum ented in the detailed note of NICOLE provider Shayna Gardiner. I also performed a history and physical examination of the patient myself and agree with jl baker documented findings and plan of care. Identification: Pt is a 51 year old female with relapsed AML, FLT3-ITD+ admitted for FLAG-Arlette reinduction, currently day 18. Subjective/24 hour events: Feeling ok today - no nausea/vomiting. Feeling distressed about discussions around SCT and whether this is something that she can/should do. No fevers/chills. Objective: On exam, well appearing, non-toxic. Oral cavity without lesions. Heart regular without mu rmurs. Lungs clear throughout. Abdomen soft, NT, ND, NABS. Extremities without swelling. Skin without rashes or lesions. Line site without erythema or induration. Brief assessment/plan: The major issues that I am directly managing that require continued hospital admission incl ude: Relapsed AML -day 18 FLAG-Arlette + Midostaurin (days 8-21) -continue GCSF -repeat marrow with count recovery -HLA typing of pt and sibs in process, unclear whether there is adequate social support to consider SCT at this time. Evaluations are ongoing. Reviewed transplant process, risks for complications, that this is not a mandatory procedur e, it is another approach with higher cure rate, but higher risks and requires a significant family/financial commitment (relocating to [place], complicated medication management, ful l time caregiver, etc) in addition to medical risks. Will proceed with typing and plan for further discussion in outpatient setting next month. FEN -replete electrolytes per protocol -eating well Immunocompromised host -acyclovir -cefepime/vancomycin for NF and line site infection -posaconazole for fungal prophy -will need pentam prior to d/c for PJP prophy HTN -amlodipine increased to 10 mg -prn hydralazine Disposition -anticipate appx 7-10 days further hospitalization Today, we will continue the current level of support. Please refer to the NICOLE's note dated today for additional details on the specific plan and orders for today. Patients Hospital Problem List: Active Hospital Problems 1) *Acute myeloid leukemia not having achieved remission (HCC) 2) COPD (chronic obstructive pulmonary disease) (HCC) 3) Anxiety and depression 4) Learning disability 5) Neutropenic fever (HCC) 6) Abnormal CXR 7) Local infection due to PICC (peripherally inserted central catheter) Renea Bell MD, M.S. [facility] Attending physician s total time is 35 minutes, >50% spent counseling and coordination of care. Today, as part of my counseling and coordination of care, I reviewed data, reviewed today's plan, and discussed role of transplant in FLT-3 ITD+ AML, time to count recovery and discharge to home. [facility] DEPARTMENT: [id number] - [facility] [place] [facility] Place of Service: [id number] - Inpatient Date of Service: 03/22/2017 Modifiers: None Suggested CPT: 68797 - Subsequent, Detailed/High complex 35 min ######################################################### Vitals: Systolic (24hrs), Av , Min:98 , Max:161 Diastolic (24hrs), Av, Min:63, Max:83 Pulse Av.1 Min: 81 Max: 102 Temp Av.6 C (97.9 F) Min: 36.5 C (97.7 F) Max: 36.8 C (98.2 F) Resp Av.6 Min: 16 Max: 18 SpO2 Av.6 % Min: 94 % Max: 97 % Intake/Output Summary (Last 24 hours) at 03/22/172033 Last data filed at 03/22/172017 Gross per 24 hour Intake 4690 ml Output 3375 ml Net 1315 ml Current medications: Current Facility-Administered Medications Medication Dose Route Frequency Last Rate acyclovir (ZOVIRAX) tablet 800 mg 800 mg oral DAILY amLODIPine (NORVASC) tablet 10 mg 10 mg oral DAILY DULoxetine (CYMBALTA) capsule 30 mg 30 mg oral BID filgrastim-sndz (ZARXIO) injection 300 mcg 300 mcg subcutaneous QPM AT 1700 hydrocortisone (PROCTOCORT) 1 % rectal cream rectal TID hydrocortisone 1 % cream topical BID levothyroxine tablet 50 mcg 50 mcg oral DAILY lisinopril (PRINIVIL) tablet 5 mg 5 mg oral DAILY midostaurin (RYDAPT) cap 50 mg 50 mg oral QLUNCH omeprazole (PRILOSEC) capsule 20 mg 20 mg oral BEFORE BREAKFAST oxybutynin CR (DITROPAN-XL) tablet 15 mg 15 mg oral DAILY pentamidine (PENTAM) IV 300 mg 300 mg intravenous Q4W Stopped (03/09/17 1230) piperacillin-tazobactam (ZOSYN) IV (minibag+) 4.5 g 4.5 g intravenous Q6H posaconazole DR (NOXAFIL) tablet 300 mg 300 mg oral DAILY prochlorperazine (COMPAZINE) tablet 5-10 mg 5-10 mg oral DAILY tiotropium (SPIRIVA) inhalation 18 mcg 18 mcg inhalation DAILY triamcinolone acetonide (KENALOG) 0.1 % ointment topical BID Allergies: Allergies Allergen Reactions Morphine Rash and Facial Swelling Rash and facial swelling Opioids - Morphine Analogues Confusion Cefepime Rash Laboratory or other studies: Recent Labs 03/20/173 03/21/17 0034 03/21/17 2308 WBC <0.10* <0.10* <0.10* HB 7.4* 7.5* 7.3* HCT 21.6* 21.4* 21.6* PLT 22* 16* 12* Recent Labs 03/20/174203/21/173303/21/17 2308 NA 142 140 139 K 3.8 3.5 3.5 CL 105 101 103 BICARB 31 31 29 BUN 10 12 11 CR 0.41* 0.51* 0.66 CA 8.6 8.8 8.6 MG 2.1 1.9 1.9 PO4 4.4 3.8 4.1 AST 16 14 15 ALT 34 33 32 TBILI 0.5 0.5 0.6 AP 152* 161* 156* ALB 2.9* 3.2* 3.1* TP 6.2* 6.4 6.4 URINE CULTURE [facility] (no units) Date Value 03/05/2016 No growth (<1000 cfu/mL) after 24 hours CULTURE RESULT (no units) Date Value 03/12/2017 Final Report:No Bacteria or Yeast isolated at 5 days. Lab Results Component Value Date APTT 31.7 03/21/2017 FIBRINOGEN 472 (H) 03/21/2017 Shayna Gardiner, PA - 03/22/2017 1:52 PM PSTFormatting of this note may be different fro m the original. Daily NPP Note - Hematologic Malignancies/[facility] Attending: Renea ARMENDARIZ MD: Angela Goldberg MD PCP: Saurav De Los Santos NP Date of Admission: 03/02/17 Hematologic Malignancy: AML ID: 51yo woman with relapsed AML admitted for treatment. PMH includes COPD, depression/anxi ety, learning disability, bladder spasms and hypothyroidism. 24 Hour Events/Current Daily Plan: -AML, relapsed: Currently Day 18 of reinduction with Flag-Arlette + Midostaurin (days 8-21) -Pancytopenia: r/t relapsed disease. Standard transfusion protocol. None today. -Non-neutropenic fever: present on admission and continued x 3 days, possibly disease vs PN A (initial CXray consistent with possible PNA). CX NGTD. Then line became erythematous/painf ul 03/10 with possible line infection and received course of vancomycin. Continue Zosyn. -Possible line infection: Added Doxycycline 03/10 d/t PICC erythema/tenderness. Line site w orsened so changed to Vanco 03/12 and left PICC pulled 03/14, replaced 03/15. Vanco dc'd wit h in 03/22 with improvement noted. -HTN: despite antihypertensives. Continue amlodipine, added lisinopril on 03/21 and continu e hydralazine PRN -Rash: likely drug rash d/t cefepime. Cefepime dc'd on 03/21 with improvement noted. Now on zosyn. Continue triamcinolone cream BID. -Hx MDD: Teary with difficulty coping with relapsed disease and being away from family. Soc ial work following. Continue Cymbalta 30 mg BID. -Lytes; Standard repletion parameters. None needed today. Subjective: Rash improving. Had some vaginal itching last now, now resolved. Otherwise do ing well. Objective: Last Vitals: BP 149/83 | Pulse 81 | Temp 36.6 C (97.9 F) | RR 18 | Ht 1.6 m (5' 3") | W t 86.9 kg (191 lb 9.3 oz) | SpO2 97% | BMI 33.94 kg/(m^2) 24 Hour Vital Min/Max: Systolic (24hrs), Av , Min:98 , Max:161 Diastolic (24hrs), Av, Min:71, Max:95 Pulse Min: 81 Max: 102 Temp Min: 36.6 C (97.9 F) Max: 36.9 C (98.4 F) Resp Min: 17 Max: 18 SpO2 Min: 94 % Max: 97 % Intake/Output Summary (Last 24 hours) at 11/24/17 1352 Last data filed at 03/22/17 1100 Gross per 24 hour Intake 4415 ml Output 3900 ml Net 515 ml Physical Exam: General: This is a female in NAD. Sitting upright in chair. at bedside. HEENT: PERRL. Scleral hemorrhages bilaterally. Mucosa pink and moist without erythema or exudate. Skin: Erythematous maculopapular rash to back and arms-improving Chest: CTA bilaterally CV: RRR, no murmurs. Abdomen: S/NT/ND with NABS. No HSM appreciated. Extremities: Pulses strong and equal bilaterally. No c/c/e. NeuroPsych: Alert and oriented x 3. Grossly nonfocal exam. CVC: Left arm erythema improved, but stamping mill tender and firm. Right PICC CDI Recent Labs 03/20/17 0043 03/21/17 0034 03/21/17 2308 NA 142 140 139 K 3.8 3.5 3.5 CL 105 101 103 BICARB 31 31 29 BUN 10 12 11 CR 0.41* 0.51* 0.66 GLU 102* 94 116* CA 8.6 8.8 8.6 AST 16 14 15 ALT 34 33 32 AP 152* 161* 156* TBILI 0.5 0.5 0.6 TP 6.2* 6.4 6.4 ALB 2.9* 3.2* 3.1* Recent Labs 03/04/17 2330 03/06/17 0227 03/06/17 2200 03/20/17 0043 03/21/17 0034 03/21/17 2308 WBC 7.66 < > 3.38* < > 0.54* < > <0.10* <0.10* <0.10* RBC 2.72* < > 2.66* < > 2.21* < > 2.39* 2.38* 2.40* HB 8.5* < > 8.6* < > 7.1* < > 7.4* 7.5* 7.3* HCT 25.6* < > 25.0* < > 21.1* < > 21.6* 21.4* 21.6* PLT 5* < > 26* < > 23* < > 22* 16* 12* NEUTROPERC 10.5* -- 36.2* -- 38.7* -- -- -- -- LYMPHPERC 14.9* -- 18.4 -- 12.6* -- -- -- -- MONOPERC 7.0 -- 3.3* -- 1.8* -- -- -- -- BASOPERC 0.0 -- 0.0 -- 0.0 -- -- -- -- EOSPERC 0.0* -- 0.0* -- 0.0* -- -- -- -- < > = values in this interval not displayed. Meds: Reviewed on rounds, see current MAR for medication list SUMMARY OF PATIENT'S HOSPITALIZATION Past Medical History: Rhea Hutchison is a 50 year old woman with history of COPD, depression, bladder spasms, hypoth yroidism and AML s/p induction 7+3+dasatinib and MiDAC consolidation (Apr 2016) who present s with AML recurrence. She is here with her and reports that she has had increasing diffuse body pains for approximately the past month. She was seen in her oncology clinic on 03/01 where she was noted to have a WBC 103K, up from her previously normal 5K in November. She reports that she has had increasing fatigue, nausea, vomiting, headache and now a sore at t he base of her inferior incisors in her mouth that occasionally bleed. She has also develop ed petechiae across her abdomen. She was admitted to [facility] where CXR was consistent with pulmonary leukostasis. Per Ca reEverywhere he labs were: WBC of 103,6000 (92% blasts) hgb 13.8 Hct 41.8%, Platelet count o f 10,000, Ldh 4427 U/L (ULN 215 U/L), Bun 14 mg/dL, Scr 0.82 mg/dL. She received fluids,hydroxyurea 2g q4hrs, 3L O2 per minute and a platelet transfusion prior to transfer. She reported no fevers but was febrile upon arrival at [facility]. Review of Systems: Positive for fatigue, night sweats, intermittent non-productive cough, d ecreased appetite, constipation, rash on abdomen, bleeding in mouth Oncology History (adapted from prior heme/onc notes) Last seen at [facility] Apr 2016 for consolidation therapy but per OSH notes, she has had the fol lowing events: Jan 2016 emergent bone marrow bx: bone marrow biopsy and aspiration at [facility] on February 15, 2016 confirmed acute myelogenous leukemia, diploid, positive for FLT-3 tyrosine kinase domai n mutation (also positive for NPM1, DNMT3A, NRAS, NPM1 and TET2 mutations). Induction chemotherapy with conventional 7+3 cytarabine/idarubicin February 16, 2016 with co ntinuous daily dasatinib (Sprycel) complicated by fungal pneumonia, neutropenic fever, hidra denitis suppurativa, and Clostridium Difficile colitis. Repeat bone marrow biopsy on 2015 (day 28); First complete remission. 1. Cycle#3 MiDaC (1200 mg/m Cytarabine) consolidation at [facility] on May 28, 2016. 2. Cycle#4 MiDaC (1000 mg/m Cytarabine ) consolidation at [facility] on June 25, 2016. 3. Bone Marrow Biopsy and Aspiration July 23, 2016 at the [facility] in [place], [place] specimen # [id number] demonstrated ongoing complete remissio n. Molecular analysis was negative for any residual NPM1 mutation positive cells and negativ e for any FLT-3 mutation positive cells (sensitivity is 1 in 20,000). 4. CBC on December 25, 2016; WBC 5,000, Hgb 14.6 gm/dl, Hct 42.7, Platelet 138,000. 5. MRI of right hip on January 25, 2017 in anticipation of right hip replacement; numerou s subcentimeter round marrow repacing lesions within the visualized lower lumbar spine, pelv is, and femurs. 6. CT Chest/Abdomen/Pelvis on February 06, 2017; 3 cm left thyroid mass, no other suggestion of primary neoplasm. 7. Bone scan February 08, 2017; Normal. 8. PET/CT scan on February 27, 2017; diffuse uptake about the spleen and bone marrow. 9. CBC on March 01, 2017; WBC 103,5000 (92% blasts) Hgb 13.8, Hct 41.8%, Platelet count 1 0,000. [id number] U/L, BUN 14 mg/dL, Scr 0.82 mg/dL. 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 -Cytogenetics: 46,X,t(X;7)(q21;q32)[20] -Genetrails: PENDING, preliminary report + FLT3 ITD at 90% allele frequency Treatment: Chemotherapy regimen: received hydrea 03/02-or leukocytosis, then started Flag-Arlette + Midostaurin (Day 1= 03/05/17) -Fludarabine 30mg/m2 (60mg) Daily, Days 1-5 -Idarubicin 8mg/m2 (16mg) Daily, Days 1-3 -Cytarabine 2000mg/m2 (4200mg) Daily, Days 1-5 -Midostaurin 50mg twice daily on Days 8-21 Chemo Day: 18 Transplant: Indicated for transplant with diagnosis of relapsed AML however there may be psychosocial barriers to stem cell transplant. Plan to type sibs in meantime #Pancytopenia d/t relapsed disease and chemo: -See supportive care #Supportive Care: Growth factor: daily filgrastim per FLAG-Arlette protocol. Labs: Continue to check CBC with diff daily Transfusion parameters: -Transfuse PRBCs for HCT <21% if asymptomatic -Transfuse PPH for platelet count <10,000 #Bleeding, noted epistaxis and bleeding from PICC site, noted 03/04. Likely due to decreased platelet production and not DIC. Required enhanced platelet transfusions and tranexamic aci d TID stopped 03/07 with improved bleeding and corrected INR. Received Vitamin K x3 days. RES OLVED Cardiovascular: TTE completed 03/04 with EF=70%. #HTN: despite antihypertensives. -Continue amlodipine -lisinopril 5 mg daily, started 03/21 -hydralazine PRN #Prolonged QTc: QTc 563 on EKG, was not prolonged on previous admissions. -Will monitor electrolytes and QTc prolonging medications closely. Derm: #Rash: likely drug rash d/t cefepime. Cefepime dc'd on 03/21 with improvement noted. Now on zosyn. -Cefepime added to allergies -Continue triamcinolone cream BID. Pulmonary: #GGO; noted on CXR (03/05) and CT Chest (03/05) show extensive bilateral ground glass and con solidative opacities are new compared to 03/02/2017, possibly r/t leukostasis vs. DAH vs. inf ection. Lactate 03/04= 0.8. -Treat leukemia as above -Abx as above -Keep platelets >20K -Supplemental O2 PRN #COPD: Home inhalers ordered #FVO r/t MIVF: -Decreased MIVF -Diurese PRN GI: #Hemorrhoidal pain: -prn proctocort -Stool softereners Neuro/Psych: #Diffuse pain: Likely due to hematologic malignancy. Morphine allergy but per patient other opioids OK. RESOLVED - Tylenol - Oxycodone PRN #Depression/Anxiety: -Continue home duloxetine, dose reduced as above -Social work following -Lorazepam PRN for anxiety Endocrine: #Hypothyroidism: -Continue home synthroid Infectious Disease: #Non-neutropenic fever: present on admission and continued x 3 days, possibly disease vs PN A as CXra consistent wit possible PNA. Initial work up negative now with possible line infec tion. Initially on cefepime (03/02-03/21) stopped due to possible drug rash. -Zosyn (03/21-) #Possible line infection: Added Doxycycline 03/10 d/t PICC erythema/tenderness. Changed to Vanco on 03/12 as site worsened despite doxy and left PICC pulled 03/14, replaced 03/15. -Vancomycin (03/12-03/22), dc'd with resolution of infection #Prophylaxis: Bacterial: As above Fungal: Posaconazole, level on 03/14 therapeutic at 1.3 Viral: Acyclovir PCP: Pentam given 03/09/17 Fluid/Nutrition/Lytes: #Nutrition: Regular diet, No Madeline's yogurt or Kefir #Fluid: 1L NS bolus O/N for po intake <2L/day #Lytes; Continue to check chemistries daily. Replace per supportive care protocol. Disposition: Admitted for further work-up and treatment for relapsed AML. Anticipate 3-[address] [facility] admission. LUKASZ Montalvo [facility] [address] [facility] Mailcode: [id number] [place] [address] Malean FosterVESTA - 03/21/2017 10:25 AM PSTFormatting of this note may be different from the original. Daily NPP Note - Hematologic Malignancies/Chemo Admit [facility] Attending: Renea ARMENDARIZ MD: Angela Goldberg MD PCP: Saurav De Los Santos NP Date of Admission: 03/02/17 Hematologic Malignancy: AML ID: 51yo woman with relapsed AML admitted for treatment. PMH includes COPD, depression/anxi ety, learning disability, bladder spasms and hypothyroidism. 24 Hour Events/Current Daily Plan: -AML, relapsed: Currently Day 17 of reinduction with Flag-Arlette + Midostaurin (days 8-21) -Pancytopenia: r/t relapsed disease. Standard transfusion protocol. None today. -Non-neutropenic fever: present on admission and continued x 3 days, possibly disease vs PN A (initial CXray consistent with possible PNA). CX NGTD. Then line became erythematous/painf ul 03/10 with possible line infection. Continue Zosyn and Vancomycin. -Possible line infection: Added Doxycycline 03/10 d/t PICC erythema/tenderness. Line site w orsened so changed to Vanco 03/12 and left PICC pulled 03/14, replaced 03/15. Continue vanco , consider DC vanco when left arm erythema is improved possibly tomorrow. -HTN: despite antihypertensives. Continue amlodipine, added lisinopril today and continue h ydralazine PRN -Rash; erythematous macules noted to chest, abdomen and lower back looks consistent with dr rodríguez rash. Changed cefepime to zosyn 03/21 and started triam ointment. -Hx MDD: Teary with difficulty coping with relapsed disease and being away from family. Soc ial work following. Continue Cymbalta 30 mg BID. -Lytes; Standard repletions Subjective: Teary today because she misses her family. Itchy rash noted to chest, back. Objective: Last Vitals: BP 153/88 | Pulse 97 | Temp 37 C (98.6 F) | RR 16 | Ht 1.6 m (5' 3") | Wt 86.9 kg (191 lb 9.3 oz) | SpO2 96% | BMI 33.94 kg/(m^2) 24 Hour Vital Min/Max: Systolic (24hrs), Av , Min:127 , Max:164 Diastolic (24hrs), Av, Min:77, Max:94 Pulse Min: 85 Max: 101 Temp Min: 36.6 C (97.9 F) Max: 37 C (98.6 F) Resp Min: 16 Max: 17 SpO2 Min: 91 % Max: 98 % Intake/Output Summary (Last 24 hours) at 03/21/17 1025 Last data filed at 03/21/17 0800 Gross per 24 hour Intake 5370 ml Output 6100 ml Net -730 ml Physical Exam: General: This is a female in NAD. Sitting upright in chair. at bedside. HEENT: PERRL. Scleral hemorrhages bilaterally. Mucosa pink and moist without erythema or exudate. Skin: Erythematous macules to chest and papules to back and lower abd. Chest: CTA bilaterally CV: RRR, no murmurs. Abdomen: S/NT/ND with NABS. No HSM appreciated. Extremities: Pulses strong and equal bilaterally. No c/c/e. NeuroPsych: Alert and oriented x 3. Grossly nonfocal exam. CVC: Left arm erythema improved, but stamping mill tender and firm. Right PICC CDI Recent Labs 03/19/17 0033 03/20/17 0043 03/21/17 0034 NA 141 142 140 K 3.8 3.8 3.5 CL 104 105 101 BICARB 30 31 31 BUN 11 10 12 CR 0.49* 0.41* 0.51* GLU 106* 102* 94 CA 8.5* 8.6 8.8 AST 16 16 14 ALT 33 34 33 AP 156* 152* 161* TBILI 0.5 0.5 0.5 TP 5.9* 6.2* 6.4 ALB 2.8* 2.9* 3.2* Recent Labs 03/04/17 2330 03/06/17 0227 03/06/17 2200 03/19/17 0033 03/20/17 0043 03/21/17 0034 WBC 7.66 < > 3.38* < > 0.54* < > <0.10* <0.10* <0.10* RBC 2.72* < > 2.66* < > 2.21* < > 2.45* 2.39* 2.38* HB 8.5* < > 8.6* < > 7.1* < > 7.7* 7.4* 7.5* HCT 25.6* < > 25.0* < > 21.1* < > 21.9* 21.6* 21.4* PLT 5* < > 26* < > 23* < > 8* 22* 16* NEUTROPERC 10.5* -- 36.2* -- 38.7* -- -- -- -- LYMPHPERC 14.9* -- 18.4 -- 12.6* -- -- -- -- MONOPERC 7.0 -- 3.3* -- 1.8* -- -- -- -- BASOPERC 0.0 -- 0.0 -- 0.0 -- -- -- -- EOSPERC 0.0* -- 0.0* -- 0.0* -- -- -- -- < > = values in this interval not displayed. Meds: Reviewed on rounds, see current MAR for medication list SUMMARY OF PATIENT'S HOSPITALIZATION Past Medical History: Rhea Hutchison is a 50 year old woman with history of COPD, depression, bladder spasms, hypoth yroidism and AML s/p induction 7+3+dasatinib and MiDAC consolidation (Apr 2016) who present s with AML recurrence. She is here with her and reports that she has had increasing diffuse body pains for approximately the past month. She was seen in her oncology clinic on 03/01 where she was noted to have a WBC 103K, up from her previously normal 5K in November. She reports that she has had increasing fatigue, nausea, vomiting, headache and now a sore at t he base of her inferior incisors in her mouth that occasionally bleed. She has also develop ed petechiae across her abdomen. She was admitted to [facility] where CXR was consistent with pulmonary leukostasis. Per Ca reEverywhere he labs were: WBC of 103,6000 (92% blasts) hgb 13.8 Hct 41.8%, Platelet count o f 10,000, Ldh 4427 U/L (ULN 215 U/L), Bun 14 mg/dL, Scr 0.82 mg/dL. She received fluids,hydroxyurea 2g q4hrs, 3L O2 per minute and a platelet transfusion prior to transfer. She reported no fevers but was febrile upon arrival at [facility]. Review of Systems: Positive for fatigue, night sweats, intermittent non-productive cough, d ecreased appetite, constipation, rash on abdomen, bleeding in mouth Oncology History (adapted from prior heme/onc notes) Last seen at [facility] Apr 2016 for consolidation therapy but per OSH notes, she has had the fol lowing events: Jan 2016 emergent bone marrow bx: bone marrow biopsy and aspiration at [facility] on February 15, 2016 confirmed acute myelogenous leukemia, diploid, positive for FLT-3 tyrosine kinase domai n mutation (also positive for NPM1, DNMT3A, NRAS, NPM1 and TET2 mutations). Induction chemotherapy with conventional 7+3 cytarabine/idarubicin February 16, 2016 with co ntinuous daily dasatinib (Sprycel) complicated by fungal pneumonia, neutropenic fever, hidra denitis suppurativa, and Clostridium Difficile colitis. Repeat bone marrow biopsy on 2015 (day 28); First complete remission. 1. Cycle#3 MiDaC (1200 mg/m Cytarabine) consolidation at [facility] on May 28, 2016. 2. Cycle#4 MiDaC (1000 mg/m Cytarabine ) consolidation at [facility] on June 25, 2016. 3. Bone Marrow Biopsy and Aspiration July 23, 2016 at the [facility] in [place], [place] specimen # [id number] demonstrated ongoing complete remissio n. Molecular analysis was negative for any residual NPM1 mutation positive cells and negativ e for any FLT-3 mutation positive cells (sensitivity is 1 in 20,000). 4. CBC on December 25, 2016; WBC 5,000, Hgb 14.6 gm/dl, Hct 42.7, Platelet 138,000. 5. MRI of right hip on January 25, 2017 in anticipation of right hip replacement; numerou s subcentimeter round marrow repacing lesions within the visualized lower lumbar spine, pelv is, and femurs. 6. CT Chest/Abdomen/Pelvis on February 06, 2017; 3 cm left thyroid mass, no other suggestion of primary neoplasm. 7. Bone scan February 08, 2017; Normal. 8. PET/CT scan on February 27, 2017; diffuse uptake about the spleen and bone marrow. 9. CBC on March 01, 2017; WBC 103,5000 (92% blasts) Hgb 13.8, Hct 41.8%, Platelet count 1 0,000. [id number] U/L, BUN 14 mg/dL, Scr 0.82 mg/dL. 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 -Cytogenetics: 46,X,t(X;7)(q21;q32)[20] -Genetrails: PENDING, preliminary report + FLT3 ITD at 90% allele frequency Treatment: Chemotherapy regimen: received hydrea 03/02-or leukocytosis, then started Flag-Arlette + Midostaurin (Day 1= 03/05/17) -Fludarabine 30mg/m2 (60mg) Daily, Days 1-5 -Idarubicin 8mg/m2 (16mg) Daily, Days 1-3 -Cytarabine 2000mg/m2 (4200mg) Daily, Days 1-5 -Midostaurin 50mg twice daily on Days 8-21 Chemo Day: 17 Transplant: Indicated for transplant with diagnosis of relapsed AML however there may be psychosocial barriers to stem cell transplant. Plan to type sibs in meantime #Pancytopenia d/t relapsed disease and chemo: -See supportive care #Supportive Care: Growth factor: daily filgrastim per FLAG-Arlette protocol. Labs: Continue to check CBC with diff daily Transfusion parameters: -Transfuse PRBCs for HCT <21% if asymptomatic -Transfuse PPH for platelet count <10,000 #Bleeding, noted epistaxis and bleeding from PICC site, noted 03/04. Likely due to decreased platelet production and not DIC. Required enhanced platelet transfusions and tranexamic aci d TID stopped 03/07 with improved bleeding and corrected INR. Received Vitamin K x3 days. RES OLVED Cardiovascular: TTE completed 03/04 with EF=70%. #HTN: despite antihypertensives. -Continue amlodipine -lisinopril -hydralazine PRN #Prolonged QTc: QTc 563 on EKG, was not prolonged on previous admissions. -Will monitor electrolytes and QTc prolonging medications closely. Derm: #Rash; erythematous macules noted to chest, abdomen and lower back looks consistent with dr anne hylton. Changed cefepime to zosyn 03/21 -Continue triam ointment. Pulmonary: #GGO; noted on CXR (03/05) and CT Chest (03/05) show extensive bilateral ground glass and con solidative opacities are new compared to 03/02/2017, possibly r/t leukostasis vs. DAH vs. inf ection. Lactate 03/04= 0.8. -Treat leukemia as above -Abx as above -Keep platelets >20K -Supplemental O2 PRN #COPD: Home inhalers ordered #FVO r/t MIVF: -Decreased MIVF -Diurese PRN GI: #Hemorrhoidal pain: -prn proctocort -Stool softereners Neuro/Psych: #Diffuse pain: Likely due to hematologic malignancy. Morphine allergy but per patient other opioids OK. RESOLVED - Tylenol - Oxycodone PRN #Depression/Anxiety: -Continue home duloxetine, dose reduced as above -Social work following -Lorazepam PRN for anxiety Endocrine: #Hypothyroidism: -Continue home synthroid Infectious Disease: #Non-neutropenic fever: present on admission and continued x 3 days, possibly disease vs PN A as CXra consistent wit possible PNA. Initial work up negative now with possible line infec tion. Initially on cefepime (03/02-03/21) stopped due to possible drug rash. -Continue Zosyn (03/21-) #Possible line infection: Added Doxycycline 03/10 d/t PICC erythema/tenderness. Changed to Vanco on 03/12 as site worsened despite doxy and left PICC pulled 03/14, replaced 03/15. -C ontinue vanco, consider DC vanco when left arm erythema is improved. #Prophylaxis: Bacterial: As above Fungal: Posaconazole Viral: Acyclovir PCP: Pentam given 03/09/17 Fluid/Nutrition/Lytes: #Nutrition: Regular diet, No Madeline's yogurt or Kefir #Fluid: 1L NS bolus O/N for po intake <2L/day #Lytes; Continue to check chemistries daily. Replace per supportive care protocol. Disposition: Admitted for further work-up and treatment for relapsed AML. Anticipate 3-[address] [facility] admission. Malena Foster, VESTA Foster, VESTA WAARMANDO [address] [facility] Mailcode: [id number] [place] [address] Renea Bell MD - 03/20/2017 6:36 PM PSTFormatting of this note may be different from t kelly original. 03/20/2017 Hematologic Malignancies/Blood and marrow Transplant Attending Note I have reviewed and agree with the previously summarized HPI, PMH, FH, SH, and ROS as docum ented in the detailed note of NICOLE provider Raghavendra Bone. I also performed a history and physical examination of the patient myself and agree with th olivia documented findings and plan of care. Identification: Pt is a 51 year old female with relapsed AML, FLT3-ITD+ admitted for FLAG-Arletet reinduction, currently day 16. Subjective/24 hour events: Feeling well overall, no real complaints to speak of. Eating and drinking well, walking la ps. Minimal nausea. No rashes/skin issues. No diarrhea. Objective: On exam, well appearing, non-toxic. Oral cavity without lesions. Heart regular without mu rmurs. Lungs clear throughout. Abdomen soft, NT, ND, NABS. Extremities without swelling. Skin without rashes or lesions. Line site without erythema or induration. Brief assessment/plan: The major issues that I am directly managing that require continued hospital admission incl ude: Relapsed AML -day 16 FLAG-Arlette + Midostaurin (days 8-21) -continue GCSF -repeat marrow with count recovery -HLA typing of pt and sibs in process, unclear whether there is adequate social support to consider SCT at this time. Evaluations are ongoing. FEN -replete electrolytes per protocol -eating well Immunocompromised host -acyclovir -cefepime/vancomycin for NF and line site infection -posaconazole for fungal prophy -will need pentam prior to d/c for PJP prophy HTN -amlodipine increased to 10 mg -prn hydralazine Disposition -anticipate appx 7-10 days further hospitalization Today, we will continue the current level of support. Please refer to the NICOLE's note dated today for additional details on the specific plan and orders for today. Patients Hospital Problem List: Active Hospital Problems 1) *Acute myeloid leukemia not having achieved remission (HCC) 2) COPD (chronic obstructive pulmonary disease) (HCC) 3) Anxiety and depression 4) Learning disability 5) Neutropenic fever (HCC) 6) Abnormal CXR 7) Local infection due to PICC (peripherally inserted central catheter) Renea Bell MD, M.S. [facility] Attending physician s total time is 35 minutes, >50% spent counseling and coordination of care. Today, as part of my counseling and coordination of care, I reviewed data, reviewed today's plan, and discussed management of blood pressure, cytopenias, and midostaurin to pre vent leukemic recurrence. [facility] DEPARTMENT: [id number] - [facility] [place] FACULTY M[facility] Place of Service: - Inpatient Date of Service: 03/20/2017 Modifiers: None Suggested CPT: 61453 - Subsequent, Detailed/High complex 35 min ######################################################### Vitals: Systolic (24hrs), Av , Min:138 , Max:164 Diastolic (24hrs), Av, Min:76, Max:98 Pulse Av.7 Min: 81 Max: 101 Temp Av.6 C (97.9 F) Min: 36.4 C (97.5 F) Max: 36.7 C (98.1 F) Resp Av Min: 16 Max: 16 SpO2 Av.5 % Min: 89 % Max: 98 % Intake/Output Summary (Last 24 hours) at 03/20/17 1836 Last data filed at 03/20/17 1633 Gross per 24 hour Intake 2860 ml Output 4455 ml Net -1595 ml Current medications: Current Facility-Administered Medications Medication Dose Route Frequency Last Rate acyclovir (ZOVIRAX) tablet 800 mg 800 mg oral DAILY amLODIPine (NORVASC) tablet 10 mg 10 mg oral DAILY ceFEPIme (MAXIPIME) injection 2 g 2 g intravenous Q8H DULoxetine (CYMBALTA) capsule 30 mg 30 mg oral BID filgrastim-sndz (ZARXIO) injection 300 mcg 300 mcg subcutaneous QPM AT 1700 hydrocortisone (PROCTOCORT) 1 % rectal cream rectal TID hydrocortisone 1 % cream topical BID levothyroxine tablet 50 mcg 50 mcg oral DAILY midostaurin (RYDAPT) cap 50 mg 50 mg oral QLUNCH omeprazole (PRILOSEC) capsule 20 mg 20 mg oral BEFORE BREAKFAST ondansetron (ZOFRAN) tablet 8 mg 8 mg oral BID oxybutynin CR (DITROPAN-XL) tablet 15 mg 15 mg oral DAILY pentamidine (PENTAM) IV 300 mg 300 mg intravenous Q4W Stopped (03/09/17 1230) posaconazole DR (NOXAFIL) tablet 300 mg 300 mg oral DAILY prochlorperazine (COMPAZINE) tablet 5-10 mg 5-10 mg oral DAILY tiotropium (SPIRIVA) inhalation 18 mcg 18 mcg inhalation DAILY vancomycin (VANCOCIN) IV 1,500 mg 1,500 mg intravenous Q12H Stopped (03/20/17 1833) Allergies: Allergies Allergen Reactions Morphine Rash and Facial Swelling Rash and facial swelling Opioids - Morphine Analogues Confusion Laboratory or other studies: Recent Labs 03/17/17233803/19/173 03/20/17 0043 WBC <0.10* <0.10* <0.10* HB 7.5* 7.7* 7.4* HCT 21.4* 21.9* 21.6* PLT 16* 8* 22* Recent Labs 03/17/17233803/19/173 03/20/17 0043 NA 141 141 142 K 3.5 3.8 3.8 CL 104 104 105 BICARB 30 30 31 BUN 10 11 10 CR 0.46* 0.49* 0.41* CA 8.4* 8.5* 8.6 MG 1.8 2.0 2.1 PO4 3.4 4.1 4.4 AST 17 16 16 ALT 33 33 34 TBILI 0.6 0.5 0.5 AP 150* 156* 152* ALB 2.8* 2.8* 2.9* TP 5.7* 5.9* 6.2* URINE CULTURE [facility] (no units) Date Value 03/05/2016 No growth (<1000 cfu/mL) after 24 hours CULTURE RESULT (no units) Date Value 03/12/2017 Final Report:No Bacteria or Yeast isolated at 5 days. Lab Results Component Value Date APTT 30.6 03/20/2017 FIBRINOGEN 444 03/20/2017 Raghavendra Bone, JOSEFA,MPAS - 03/20/2017 12:20 PM PSTFormatting of this note may be different f rom the original. Daily NPP Note - Hematologic Malignancies/Chemo Admit [facility] Attending: Krzysztof Fernández MD [facility] [place] MD: Angela Goldberg MD PCP: Saurav De Los Santos NP Date of Admission: 03/02/17 Hematologic Malignancy: AML Reason for admission: Relapsed AML, admitted for w/u and treatment ID: 51yo woman with relapsed AML admitted for treatment. PMH includes COPD, depression/anxi ety, learning disability, bladder spasms and hypothyroidism. 24 Hour Events/Current Daily Plan: -AML, relapsed post induction and consolidation for favorable risk AML (+NPM1, +FLT3-TKD) a dmitted with WBC >100K. -Day 16 of reinduction with Flag-Arlette + Midostaurin (days 8-21) -Pancytopenia r/t relapsed disease: Standard transfusion protocol. PPH x 1. -Non-neutropenic fever: present on admission and continued x 3 days, possibly disease relat ed fevers vs PNA. Blood cx 03/03 negative. UA clear. CXR as below. -Continue Cefepime (03/02- ) -Added Doxycycline 03/10 d/t PICC erythema/tenderness. Erythema/tenderness worsened 03/12- - stopped doxycycline changed to Vanco on 03/12. -Blood cultures drawn prior to initiation of vancomycin NGTD. -Left arm picc pulled 03/14 due to erythema and tenderness; PICC replaced in right arm -consider DC vanco when left arm erythema is improved. -HTN: amlodipine 5mg daily started 03/13; increased to 10mg starting 03/19 -N/V: primarily in the morning. Scheduled zofran BID and compazine every morning before shelby akfast. -Diarrhea: improved. C.diff negative 03/14. -Psychosocial: Hx MDD. Continue Cymbalta 30 mg BID. Difficulty coping with relapsed disease . Social work following. Subjective: Feeling well today - no acute changes - no new symptoms Objective: Last Vitals: BP 163/98 | Pulse 92 | Temp 36.6 C (97.9 F) | RR 16 | Ht 1.6 m (5' 3") | W t 88.5 kg (195 lb 1.7 oz) | SpO2 98% | BMI 34.56 kg/(m^2) 24 Hour Vital Min/Max: Systolic (24hrs), Av , Min:138 , Max:163 Diastolic (24hrs), Av, Min:76, Max:98 Pulse Min: 81 Max: 98 Temp Min: 36.2 C (97.2 F) Max: 36.7 C (98.1 F) Resp Min: 16 Max: 16 SpO2 Min: 89 % Max: 98 % Intake/Output Summary (Last 24 hours) at 03/20/17 1220 Last data filed at 03/20/17 1200 Gross per 24 hour Intake 3260 ml Output 2730 ml Net 530 ml Physical Exam: General: This is a female in NAD. Sitting upright in chair. at bedside. HEENT: PERRL. Scleral hemorrhages bilaterally. Mucosa pink and moist without erythema or exudate. Skin: No rash, lesions noted. Scattered ecchymoses on BUE & petechiae on BLE. Chest: Lungs mildly diminished to auscultation bilat. Normal work of breath on room air. CV: RRR, no murmurs. Abdomen: S/NT/ND with NABS. No HSM appreciated. Extremities: Pulses strong and equal bilaterally. No c/c/e. NeuroPsych: Alert and oriented x 3. Grossly nonfocal exam. CVC: Left arm erythema improved, but stamping mill tender and firm. Recent Labs 03/17/17 2339 03/19/17 0033 03/20/17 0043 NA 141 141 142 K 3.5 3.8 3.8 CL 104 104 105 BICARB 30 30 31 BUN 10 11 10 CR 0.46* 0.49* 0.41* GLU 97 106* 102* CA 8.4* 8.5* 8.6 AST 17 16 16 ALT 33 33 34 AP 150* 156* 152* TBILI 0.6 0.5 0.5 TP 5.7* 5.9* 6.2* ALB 2.8* 2.8* 2.9* Recent Labs 03/04/17 2330 03/06/17 0227 03/06/17 2200 03/17/17 2339 03/19/17 0033 03/20/17 0043 WBC 7.66 < > 3.38* < > 0.54* < > <0.10* <0.10* <0.10* RBC 2.72* < > 2.66* < > 2.21* < > 2.40* 2.45* 2.39* HB 8.5* < > 8.6* < > 7.1* < > 7.5* 7.7* 7.4* HCT 25.6* < > 25.0* < > 21.1* < > 21.4* 21.9* 21.6* PLT 5* < > 26* < > 23* < > 16* 8* 22* NEUTROPERC 10.5* -- 36.2* -- 38.7* -- -- -- -- LYMPHPERC 14.9* -- 18.4 -- 12.6* -- -- -- -- MONOPERC 7.0 -- 3.3* -- 1.8* -- -- -- -- BASOPERC 0.0 -- 0.0 -- 0.0 -- -- -- -- EOSPERC 0.0* -- 0.0* -- 0.0* -- -- -- -- < > = values in this interval not displayed. Meds: Reviewed on rounds, see current MAR for medication list SUMMARY OF PATIENT'S HOSPITALIZATION Past Medical History: Rhea Hutchison is a 50 year old woman with history of COPD, depression, bladder spasms, hypoth yroidism and AML s/p induction 7+3+dasatinib and MiDAC consolidation (Apr 2016) who present s with AML recurrence. She is here with her and reports that she has had increasing diffuse body pains for approximately the past month. She was seen in her oncology clinic on 03/01 where she was noted to have a WBC 103K, up from her previously normal 5K in November. She reports that she has had increasing fatigue, nausea, vomiting, headache and now a sore at t he base of her inferior incisors in her mouth that occasionally bleed. She has also develop ed petechiae across her abdomen. She was admitted to [facility] where CXR was consistent with pulmonary leukostasis. Per Ca reEverywhere he labs were: WBC of 103,6000 (92% blasts) hgb 13.8 Hct 41.8%, Platelet count o f 10,000, Ldh 4427 U/L (ULN 215 U/L), Bun 14 mg/dL, Scr 0.82 mg/dL. She received fluids,hydroxyurea 2g q4hrs, 3L O2 per minute and a platelet transfusion prior to transfer. She reported no fevers but was febrile upon arrival at [facility]. Review of Systems: Positive for fatigue, night sweats, intermittent non-productive cough, d ecreased appetite, constipation, rash on abdomen, bleeding in mouth Oncology History (adapted from prior heme/onc notes) Last seen at [facility] Apr 2016 for consolidation therapy but per OSH notes, she has had the fol lowing events: Jan 2016 emergent bone marrow bx: bone marrow biopsy and aspiration at [facility] on February 15, 2016 confirmed acute myelogenous leukemia, diploid, positive for FLT-3 tyrosine kinase domai n mutation (also positive for NPM1, DNMT3A, NRAS, NPM1 and TET2 mutations). Induction chemotherapy with conventional 7+3 cytarabine/idarubicin February 16, 2016 with co ntinuous daily dasatinib (Sprycel) complicated by fungal pneumonia, neutropenic fever, hidra denitis suppurativa, and Clostridium Difficile colitis. Repeat bone marrow biopsy on 2015 (day 28); First complete remission. 1. Cycle#3 MiDaC (1200 mg/m Cytarabine) consolidation at [facility] on May 28, 2016. 2. Cycle#4 MiDaC (1000 mg/m Cytarabine ) consolidation at [facility] on June 25, 2016. 3. Bone Marrow Biopsy and Aspiration July 23, 2016 at the [facility] in [place], [place] specimen # [id number] demonstrated ongoing complete remissio n. Molecular analysis was negative for any residual NPM1 mutation positive cells and negativ e for any FLT-3 mutation positive cells (sensitivity is 1 in 20,000). 4. CBC on December 25, 2016; WBC 5,000, Hgb 14.6 gm/dl, Hct 42.7, Platelet 138,000. 5. MRI of right hip on January 25, 2017 in anticipation of right hip replacement; numerou s subcentimeter round marrow repacing lesions within the visualized lower lumbar spine, pelv is, and femurs. 6. CT Chest/Abdomen/Pelvis on February 06, 2017; 3 cm left thyroid mass, no other suggestion of primary neoplasm. 7. Bone scan February 08, 2017; Normal. 8. PET/CT scan on February 27, 2017; diffuse uptake about the spleen and bone marrow. 9. CBC on March 01, 2017; WBC 103,5000 (92% blasts) Hgb 13.8, Hct 41.8%, Platelet count 1 0,000. [id number] U/L, BUN 14 mg/dL, Scr 0.82 mg/dL. 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 -Cytogenetics: 46,X,t(X;7)(q21;q32)[20] -Genetrails: PENDING, preliminary report + FLT3 ITD at 90% allele frequency Treatment: -Chemotherapy regimen: received hydrea 03/02-or leukocytosis, then started Flag-Arlette + Midostaurin (Day 1= 03/05/17) -Fludarabine 30mg/m2 (60mg) Daily, Days 1-5 -Idarubicin 8mg/m2 (16mg) Daily, Days 1-3 -Cytarabine 2000mg/m2 (4200mg) Daily, Days 1-5 -Midostaurin 50mg twice daily on Days 8-21 -Chemo Day: 16 -Pt is indicated for transplant with diagnosis of relapsed AML. They may be psychosocial b arriers to stem cell transplant, however will type sibs in meantime while plan is determined . #Pancytopenia d/t relapsed disease and chemo: -See supportive care #Supportive Care: Growth factor: daily filgrastim per FLAG-Arlette protocol. Labs: Continue to check CBC with diff daily Transfusion parameters: -Transfuse PRBCs for HCT <21% if asymptomatic OR <24% if symptomatic -Transfuse PPH for platelet count <10,000 #Bleeding, likely due to decreased platelet production and not DIC: Epistaxis and bleeding from PICC site, noted 03/04. -Kept platelets >20K until 03/14 back to 10K with improvement. -Tranexamic acid TID- stopped 03/07 with improved bleeding and corrected INR. -received Vitamin K x3 days Cardiovascular: TTE completed 03/04 with EF=70%. #Sinus tachycardia with hypertension: -Likely multifactorial: tumor lysis, fever, pain, volume depletion, ? Sepsis. No evidence of cardiac ischemia -Not on rate control medications. May be needed if no improvement. #Prolonged QTc: QTc 563 on EKG, was not prolonged on previous admissions. -Will monitor electrolytes and QTc prolonging medications closely. Pulmonary: #Abnormal CXR (03/05) bilateral groundglass opacities predominantly in the perihilar regions , Follow up CT Chest (03/05) with extensive bilateral ground glass and consolidative opacitie s are new compared to 03/02/2017, possibly r/t leukostasis vs. DAH vs. infection. Lactate 03/04= 0.8. -Treat leukemia as above -Abx as above -Keep platelets >20K -Supplemental O2 PRN #COPD: Home inhalers ordered #FVO r/t MIVF: -Decreased MIVF -Diurese PRN, last given 40mg Lasix 03/11. GI: #Hemorrhoidal pain: -prn proctocort -Stool softereners Renal: #Risk for TLS, no signs of TLS at this time: -TLS labs daily. -Allopurinol daily stopped 03/08 with leukopenia . -MIVF Neuro/Psych: #Diffuse pain: Likely due to hematologic malignancy. Morphine allergy but per patient other opioids OK. - Tylenol - Oxycodone PRN #Depression/Anxiety: -Continue home duloxetine, dose reduced as above -Social work following -Lorazepam PRN for anxiety Endocrine: #Hypothyroidism: -Continue home synthroid Infectious Disease: #Non-neutropenic fevers, possibly disease related fevers. BCx 03/03 NGTD, UA clear. CXR with consolidation (see pulm section) possibly from leukostasis vs infection vs DAH. -Continue Cefepime (03/02- ) -Added Doxycycline 03/10 d/t PICC site redness. Plan had been for 5 day course, but stopped 03/12 d/t worsening erythema and tenderness. PICC pulled 03/14. -Vancomycin (03/12 - ) -03/12 cultures negative. -left arm picc removed 03/14 and replaced in right arm 03/15. #Prophylaxis: Bacterial: As above Fungal: Posaconazole Viral: Acyclovir PCP: Pentam given 03/09/17 Fluid/Nutrition/Lytes: #Nutrition: Regular diet, No Madeline's yogurt or Kefir #Fluid: 1L NS bolus O/N for po intake <2L/day #Lytes; Continue to check chemistries daily. Replace per supportive care protocol. Disposition: Admitted for further work-up and treatment for relapsed AML. Anticipate 3-[address] [facility] admission. Raghavendra Bone PA-C, NAOMY [facility] [address] [facility] Mailcode: [facility] [place] [address] Raghavendra Bone PA-C,NAOMY - 03/19/2017 4:58 PM PSTFormatting of this note may be different f rom the original. Daily NPP Note - Hematologic Malignancies/Chemo Admit [facility] Attending: Krzysztof Fernández MD [facility] [place] MD: Angela Goldberg MD PCP: Saurav De Los Santos NP Date of Admission: 03/02/17 Hematologic Malignancy: AML Reason for admission: Relapsed AML, admitted for w/u and treatment ID: 51yo woman with relapsed AML admitted for treatment. PMH includes COPD, depression/anxi ety, learning disability, bladder spasms and hypothyroidism. 24 Hour Events/Current Daily Plan: -AML, relapsed post induction and consolidation for favorable risk AML (+NPM1, +FLT3-TKD) a dmitted with WBC >100K. -Day 15 of reinduction with Flag-Arlette + Midostaurin (days 8-21) -Pancytopenia r/t relapsed disease: Standard transfusion protocol. PPH x 1. -Non-neutropenic fever: present on admission and continued x 3 days, possibly disease relat ed fevers vs PNA. Blood cx 03/03 negative. UA clear. CXR as below. -Continue Cefepime (03/02- ) -Added Doxycycline 03/10 d/t PICC erythema/tenderness. Erythema/tenderness worsened 03/12- - stopped doxycycline changed to Vanco on 03/12. -Blood cultures drawn prior to initiation of vancomycin NGTD. -Left arm picc pulled 03/14 due to erythema and tenderness; PICC replaced in right arm -consider DC vanco when left arm erythema is improved. -HTN: amlodipine 5mg daily started 03/13; increased to 10mg starting 03/19 -N/V: primarily in the morning. Scheduled zofran BID and compazine every morning before shelby akfast. -Diarrhea: improved. C.diff negative 03/14. -Psychosocial: Hx MDD. Continue Cymbalta 30 mg BID. Difficulty coping with relapsed disease . Social work following. Subjective: Feeling well today - no acute changes - no new symptoms Objective: Last Vitals: BP 142/76 | Pulse 95 | Temp 36.2 C (97.2 F) | RR 16 | Ht 1.6 m (5' 3") | W t 88.5 kg (195 lb 1.7 oz) | SpO2 92% | BMI 34.56 kg/(m^2) 24 Hour Vital Min/Max: Systolic (24hrs), Av , Min:142 , Max:157 Diastolic (24hrs), Av, Min:71, Max:94 Pulse Min: 84 Max: 103 Temp Min: 36.2 C (97.2 F) Max: 37.1 C (98.8 F) Resp Min: 16 Max: 17 SpO2 Min: 90 % Max: 95 % Intake/Output Summary (Last 24 hours) at 03/19/17 1658 Last data filed at 03/19/17 1600 Gross per 24 hour Intake 1895 ml Output 1861 ml Net 34 ml Physical Exam: General: This is a female in NAD. Sitting upright in chair. at bedside. HEENT: PERRL. Scleral hemorrhages bilaterally. Mucosa pink and moist without erythema or exudate. Skin: No rash, lesions noted. Scattered ecchymoses on BUE & petechiae on BLE. Chest: Lungs mildly diminished to auscultation bilat. Normal work of breath on room air. CV: RRR, no murmurs. Abdomen: S/NT/ND with NABS. No HSM appreciated. Extremities: Pulses strong and equal bilaterally. No c/c/e. NeuroPsych: Alert and oriented x 3. Grossly nonfocal exam. CVC: Left arm erythema improved, but stamping mill tender and firm. Recent Labs 03/16/17230303/17/17233803/19/17 0033 NA 141 141 141 K 3.3* 3.5 3.8 CL 105 104 104 BICARB 30 30 30 BUN 8 10 11 CR 0.45* 0.46* 0.49* GLU 107* 97 106* CA 8.2* 8.4* 8.5* AST 18 17 16 ALT 33 33 33 AP 158* 150* 156* TBILI 0.6 0.6 0.5 TP 5.8* 5.7* 5.9* ALB 2.8* 2.8* 2.8* Recent Labs 03/04/17 2330 03/06/1722603/06/17219903/16/17 23003/17/17233803/19/17 0033 WBC 7.66 < > 3.38* < > 0.54* < > <0.10* <0.10* <0.10* RBC 2.72* < > 2.66* < > 2.21* < > 2.37* 2.40* 2.45* HB 8.5* < > 8.6* < > 7.1* < > 7.5* 7.5* 7.7* HCT 25.6* < > 25.0* < > 21.1* < > 20.9* 21.4* 21.9* PLT 5* < > 26* < > 23* < > 8* 16* 8* NEUTROPERC 10.5* -- 36.2* -- 38.7* -- -- -- -- LYMPHPERC 14.9* -- 18.4 -- 12.6* -- -- -- -- MONOPERC 7.0 -- 3.3* -- 1.8* -- -- -- -- BASOPERC 0.0 -- 0.0 -- 0.0 -- -- -- -- EOSPERC 0.0* -- 0.0* -- 0.0* -- -- -- -- < > = values in this interval not displayed. Meds: Reviewed on rounds, see current MAR for medication list SUMMARY OF PATIENT'S HOSPITALIZATION Past Medical History: Rhea Hutchison is a 50 year old woman with history of COPD, depression, bladder spasms, hypoth yroidism and AML s/p induction 7+3+dasatinib and MiDAC consolidation (Apr 2016) who present s with AML recurrence. She is here with her and reports that she has had increasing diffuse body pains for approximately the past month. She was seen in her oncology clinic on 03/01 where she was noted to have a WBC 103K, up from her previously normal 5K in November. She reports that she has had increasing fatigue, nausea, vomiting, headache and now a sore at t he base of her inferior incisors in her mouth that occasionally bleed. She has also develop ed petechiae across her abdomen. She was admitted to [facility] where CXR was consistent with pulmonary leukostasis. Per Ca reEverywhere he labs were: WBC of 103,6000 (92% blasts) hgb 13.8 Hct 41.8%, Platelet count o f 10,000, Ldh 4427 U/L (ULN 215 U/L), Bun 14 mg/dL, Scr 0.82 mg/dL. She received fluids,hydroxyurea 2g q4hrs, 3L O2 per minute and a platelet transfusion prior to transfer. She reported no fevers but was febrile upon arrival at [facility]. Review of Systems: Positive for fatigue, night sweats, intermittent non-productive cough, d ecreased appetite, constipation, rash on abdomen, bleeding in mouth Oncology History (adapted from prior heme/onc notes) Last seen at [facility] Apr 2016 for consolidation therapy but per OSH notes, she has had the fol lowing events: Jan 2016 emergent bone marrow bx: bone marrow biopsy and aspiration at [facility] on February 15, 2016 confirmed acute myelogenous leukemia, diploid, positive for FLT-3 tyrosine kinase domai n mutation (also positive for NPM1, DNMT3A, NRAS, NPM1 and TET2 mutations). Induction chemotherapy with conventional 7+3 cytarabine/idarubicin February 16, 2016 with co ntinuous daily dasatinib (Sprycel) complicated by fungal pneumonia, neutropenic fever, hidra denitis suppurativa, and Clostridium Difficile colitis. Repeat bone marrow biopsy on 2015 (day 28); First complete remission. 1. Cycle#3 MiDaC (1200 mg/m Cytarabine) consolidation at [facility] on May 28, 2016. 2. Cycle#4 MiDaC (1000 mg/m Cytarabine ) consolidation at [facility] on June 25, 2016. 3. Bone Marrow Biopsy and Aspiration July 23, 2016 at the [facility] in [place], [place] specimen # [id number] demonstrated ongoing complete remissio n. Molecular analysis was negative for any residual NPM1 mutation positive cells and negativ e for any FLT-3 mutation positive cells (sensitivity is 1 in 20,000). 4. CBC on December 25, 2016; WBC 5,000, Hgb 14.6 gm/dl, Hct 42.7, Platelet 138,000. 5. MRI of right hip on January 25, 2017 in anticipation of right hip replacement; numerou s subcentimeter round marrow repacing lesions within the visualized lower lumbar spine, pelv is, and femurs. 6. CT Chest/Abdomen/Pelvis on February 06, 2017; 3 cm left thyroid mass, no other suggestion of primary neoplasm. 7. Bone scan February 08, 2017; Normal. 8. PET/CT scan on February 27, 2017; diffuse uptake about the spleen and bone marrow. 9. CBC on March 01, 2017; WBC 103,5000 (92% blasts) Hgb 13.8, Hct 41.8%, Platelet count 1 0,000. [id number] U/L, BUN 14 mg/dL, Scr 0.82 mg/dL. 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 -Cytogenetics: 46,X,t(X;7)(q21;q32)[20] -Genetrails: PENDING, preliminary report + FLT3 ITD at 90% allele frequency Treatment: -Chemotherapy regimen: received hydrea 03/02-or leukocytosis, then started Flag-Arlette + Midostaurin (Day 1= 03/05/17) -Fludarabine 30mg/m2 (60mg) Daily, Days 1-5 -Idarubicin 8mg/m2 (16mg) Daily, Days 1-3 -Cytarabine 2000mg/m2 (4200mg) Daily, Days 1-5 -Midostaurin 50mg twice daily on Days 8-21 -Chemo Day: 15 -Pt is indicated for transplant with diagnosis of relapsed AML. They may be psychosocial b arriers to stem cell transplant, however will type sibs in meantime while plan is determined . #Pancytopenia d/t relapsed disease and chemo: -See supportive care #Supportive Care: Growth factor: daily filgrastim per FLAG-Arlette protocol. Labs: Continue to check CBC with diff daily Transfusion parameters: -Transfuse PRBCs for HCT <21% if asymptomatic OR <24% if symptomatic -Transfuse PPH for platelet count <10,000 #Bleeding, likely due to decreased platelet production and not DIC: Epistaxis and bleeding from PICC site, noted 03/04. -Kept platelets >20K until 03/14 back to 10K with improvement. -Tranexamic acid TID- stopped 03/07 with improved bleeding and corrected INR. -received Vitamin K x3 days Cardiovascular: TTE completed 03/04 with EF=70%. #Sinus tachycardia with hypertension: -Likely multifactorial: tumor lysis, fever, pain, volume depletion, ? Sepsis. No evidence of cardiac ischemia -Not on rate control medications. May be needed if no improvement. #Prolonged QTc: QTc 563 on EKG, was not prolonged on previous admissions. -Will monitor electrolytes and QTc prolonging medications closely. Pulmonary: #Abnormal CXR (03/05) bilateral groundglass opacities predominantly in the perihilar regions , Follow up CT Chest (03/05) with extensive bilateral ground glass and consolidative opacitie s are new compared to 03/02/2017, possibly r/t leukostasis vs. DAH vs. infection. Lactate 03/04= 0.8. -Treat leukemia as above -Abx as above -Keep platelets >20K -Supplemental O2 PRN #COPD: Home inhalers ordered #FVO r/t MIVF: -Decreased MIVF -Diurese PRN, last given 40mg Lasix 03/11. GI: #Hemorrhoidal pain: -prn proctocort -Stool softereners Renal: #Risk for TLS, no signs of TLS at this time: -TLS labs daily. -Allopurinol daily stopped 03/08 with leukopenia . -MIVF Neuro/Psych: #Diffuse pain: Likely due to hematologic malignancy. Morphine allergy but per patient other opioids OK. - Tylenol - Oxycodone PRN #Depression/Anxiety: -Continue home duloxetine, dose reduced as above -Social work following -Lorazepam PRN for anxiety Endocrine: #Hypothyroidism: -Continue home synthroid Infectious Disease: #Non-neutropenic fevers, possibly disease related fevers. BCx 03/03 NGTD, UA clear. CXR with consolidation (see pulm section) possibly from leukostasis vs infection vs DAH. -Continue Cefepime (03/02- ) -Added Doxycycline 03/10 d/t PICC site redness. Plan had been for 5 day course, but stopped 03/12 d/t worsening erythema and tenderness. PICC pulled 03/14. -Vancomycin (03/12 - ) -03/12 cultures negative. -left arm picc removed 03/14 and replaced in right arm 03/15. #Prophylaxis: Bacterial: As above Fungal: Posaconazole Viral: Acyclovir PCP: Pentam given 03/09/17 Fluid/Nutrition/Lytes: #Nutrition: Regular diet, No Madeline's yogurt or Kefir #Fluid: 1L NS bolus O/N for po intake <2L/day #Lytes; Continue to check chemistries daily. Replace per supportive care protocol. Disposition: Admitted for further work-up and treatment for relapsed AML. Anticipate 3-[address] [facility] admission. Raghavendra Bone PA-C, NAOMY [facility] [id number] [facility] Mailcode: [id number] [place] [address] Raghavendra Bone PA-C,NAOMY - 03/18/2017 12:03 PM PSTFormatting of this note may be different f rom the original. Daily NPP Note - Hematologic Malignancies/Chemo [facility] Attending: MD KALA Torres MD: Angela Goldberg MD PCP: Saurav De Los Santos NP Date of Admission: 03/02/17 Hematologic Malignancy: AML Reason for admission: Relapsed AML, admitted for w/u and treatment ID: 51yo woman with relapsed AML admitted for treatment. PMH includes COPD, depression/anxi ety, learning disability, bladder spasms and hypothyroidism. 24 Hour Events/Current Daily Plan: -AML, relapsed post induction and consolidation for favorable risk AML (+NPM1, +FLT3-TKD) a dmitted with WBC >100K. -Day 14 of reinduction with Flag-Arlette + Midostaurin (days 8-21) -Pancytopenia r/t relapsed disease: Standard transfusion protocol -Non-neutropenic fever: present on admission and continued x 3 days, possibly disease relat ed fevers vs PNA. Blood cx 03/03 negative. UA clear. CXR as below. -Continue Cefepime (03/02- ) -Added Doxycycline 03/10 d/t PICC erythema/tenderness. Erythema/tenderness worsened 03/12- - stopped doxycycline changed to Vanco on 03/12. -Blood cultures drawn prior to initiation of vancomycin NGTD. -Left arm picc pulled 03/14 due to erythema and tenderness; PICC replaced in right arm -consider DC vanco when left arm erythema is improved. -HTN: amlodipine 5mg daily started 03/13 -N/V: primarily in the morning. Scheduled zofran BID and compazine every morning before shelby akfast. -Diarrhea: improved. C.diff negative 03/14. -Psychosocial: Hx MDD. Continue Cymbalta 30 mg BID. Difficulty coping with relapsed disease . Social work following. Subjective: Feeling well today - no acute changes - no new symptoms Objective: Last Vitals: BP 153/87 | Pulse 94 | Temp 36.8 C (98.2 F) | RR 16 | Ht 1.6 m (5' 3") | W t 88.9 kg (195 lb 15.8 oz) | SpO2 92% | BMI 34.72 kg/(m^2) 24 Hour Vital Min/Max: Systolic (24hrs), Av , Min:139 , Max:176 Diastolic (24hrs), Av, Min:76, Max:88 Pulse Min: 84 Max: 112 Temp Min: 36.4 C (97.5 F) Max: 36.8 C (98.2 F) Resp Min: 16 Max: 16 SpO2 Min: 91 % Max: 95 % Intake/Output Summary (Last 24 hours) at 03/18/17 1203 Last data filed at 03/18/17 1000 Gross per 24 hour Intake 1643 ml Output 2450 ml Net -807 ml Physical Exam: General: This is a female in NAD. Sitting upright in chair. at bedside. HEENT: PERRL. Scleral hemorrhages bilaterally. Mucosa pink and moist without erythema or exudate. Skin: No rash, lesions noted. Scattered ecchymoses on BUE & petechiae on BLE. Chest: Lungs mildly diminished to auscultation bilat. Normal work of breath on room air. CV: RRR, no murmurs. Abdomen: S/NT/ND with NABS. No HSM appreciated. Extremities: Pulses strong and equal bilaterally. No c/c/e. NeuroPsych: Alert and oriented x 3. Grossly nonfocal exam. CVC: Left arm erythema improved, but stamping mill tender and firm. Recent Labs 03/15/17 2349 03/16/17 2304 03/17/17 2339 NA 139 141 141 K 3.3* 3.3* 3.5 CL 104 105 104 BICARB 28 30 30 BUN 10 8 10 CR 0.47* 0.45* 0.46* GLU 107* 107* 97 CA 8.2* 8.2* 8.4* AST 20 18 17 ALT 35 33 33 AP 156* 158* 150* TBILI 0.7 0.6 0.6 TP 5.8* 5.8* 5.7* ALB 2.8* 2.8* 2.8* Recent Labs 03/04/17 2330 03/06/17 0227 03/06/17 2200 03/15/17 2349 03/16/17 2304 03/17/17 2339 WBC 7.66 < > 3.38* < > 0.54* < > <0.10* <0.10* <0.10* RBC 2.72* < > 2.66* < > 2.21* < > 2.54* 2.37* 2.40* HB 8.5* < > 8.6* < > 7.1* < > 8.0* 7.5* 7.5* HCT 25.6* < > 25.0* < > 21.1* < > 22.2* 20.9* 21.4* PLT 5* < > 26* < > 23* < > 14* 8* 16* NEUTROPERC 10.5* -- 36.2* -- 38.7* -- -- -- -- LYMPHPERC 14.9* -- 18.4 -- 12.6* -- -- -- -- MONOPERC 7.0 -- 3.3* -- 1.8* -- -- -- -- BASOPERC 0.0 -- 0.0 -- 0.0 -- -- -- -- EOSPERC 0.0* -- 0.0* -- 0.0* -- -- -- -- < > = values in this interval not displayed. Meds: Reviewed on rounds, see current MAR for medication list SUMMARY OF PATIENT'S HOSPITALIZATION Past Medical History: Rhea Hutchison is a 50 year old woman with history of COPD, depression, bladder spasms, hypoth yroidism and AML s/p induction 7+3+dasatinib and MiDAC consolidation (Apr 2016) who present s with AML recurrence. She is here with her and reports that she has had increasing diffuse body pains for approximately the past month. She was seen in her oncology clinic on 03/01 where she was noted to have a WBC 103K, up from her previously normal 5K in November. She reports that she has had increasing fatigue, nausea, vomiting, headache and now a sore at t he base of her inferior incisors in her mouth that occasionally bleed. She has also develop ed petechiae across her abdomen. She was admitted to [facility] where CXR was consistent with pulmonary leukostasis. Per Ca reEverywhere he labs were: WBC of 103,6000 (92% blasts) hgb 13.8 Hct 41.8%, Platelet count o f 10,000, Ldh 4427 U/L (ULN 215 U/L), Bun 14 mg/dL, Scr 0.82 mg/dL. She received fluids,hydroxyurea 2g q4hrs, 3L O2 per minute and a platelet transfusion prior to transfer. She reported no fevers but was febrile upon arrival at [facility]. Review of Systems: Positive for fatigue, night sweats, intermittent non-productive cough, d ecreased appetite, constipation, rash on abdomen, bleeding in mouth Oncology History (adapted from prior heme/onc notes) Last seen at [facility] Apr 2016 for consolidation therapy but per OSH notes, she has had the fol lowing events: Jan 2016 emergent bone marrow bx: bone marrow biopsy and aspiration at [facility] on February 15, 2016 confirmed acute myelogenous leukemia, diploid, positive for FLT-3 tyrosine kinase domai n mutation (also positive for NPM1, DNMT3A, NRAS, NPM1 and TET2 mutations). Induction chemotherapy with conventional 7+3 cytarabine/idarubicin February 16, 2016 with co ntinuous daily dasatinib (Sprycel) complicated by fungal pneumonia, neutropenic fever, hidra denitis suppurativa, and Clostridium Difficile colitis. Repeat bone marrow biopsy on 2015 (day 28); First complete remission. 1. Cycle#3 MiDaC (1200 mg/m Cytarabine) consolidation at [facility] on May 28, 2016. 2. Cycle#4 MiDaC (1000 mg/m Cytarabine ) consolidation at [facility] on June 25, 2016. 3. Bone Marrow Biopsy and Aspiration July 23, 2016 at the [facility] in [place], [place] specimen # [id number] demonstrated ongoing complete remissio n. Molecular analysis was negative for any residual NPM1 mutation positive cells and negativ e for any FLT-3 mutation positive cells (sensitivity is 1 in 20,000). 4. CBC on December 25, 2016; WBC 5,000, Hgb 14.6 gm/dl, Hct 42.7, Platelet 138,000. 5. MRI of right hip on January 25, 2017 in anticipation of right hip replacement; numerou s subcentimeter round marrow repacing lesions within the visualized lower lumbar spine, pelv is, and femurs. 6. CT Chest/Abdomen/Pelvis on February 06, 2017; 3 cm left thyroid mass, no other suggestion of primary neoplasm. 7. Bone scan February 08, 2017; Normal. 8. PET/CT scan on February 27, 2017; diffuse uptake about the spleen and bone marrow. 9. CBC on March 01, 2017; WBC 103,5000 (92% blasts) Hgb 13.8, Hct 41.8%, Platelet count 1 0,000. [id number] U/L, BUN 14 mg/dL, Scr 0.82 mg/dL. 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 -Cytogenetics: 46,X,t(X;7)(q21;q32)[20] -Genetrails: PENDING, preliminary report + FLT3 ITD at 90% allele frequency Treatment: -Chemotherapy regimen: received hydrea 03/02-or leukocytosis, then started Flag-Arlette + Midostaurin (Day 1= 03/05/17) -Fludarabine 30mg/m2 (60mg) Daily, Days 1-5 -Idarubicin 8mg/m2 (16mg) Daily, Days 1-3 -Cytarabine 2000mg/m2 (4200mg) Daily, Days 1-5 -Midostaurin 50mg twice daily on Days 8-21 -Chemo Day: 14 -Pt is indicated for transplant with diagnosis of relapsed AML. They may be psychosocial b arriers to stem cell transplant, however will type sibs in meantime while plan is determined . #Pancytopenia d/t relapsed disease and chemo: -See supportive care #Supportive Care: Growth factor: daily filgrastim per FLAG-Arlette protocol. Labs: Continue to check CBC with diff daily Transfusion parameters: -Transfuse PRBCs for HCT <21% if asymptomatic OR <24% if symptomatic -Transfuse PPH for platelet count <10,000 #Bleeding, likely due to decreased platelet production and not DIC: Epistaxis and bleeding from PICC site, noted 03/04. -Kept platelets >20K until 03/14 back to 10K with improvement. -Tranexamic acid TID- stopped 03/07 with improved bleeding and corrected INR. -received Vitamin K x3 days Cardiovascular: TTE completed 03/04 with EF=70%. #Sinus tachycardia with hypertension: -Likely multifactorial: tumor lysis, fever, pain, volume depletion, ? Sepsis. No evidence of cardiac ischemia -Not on rate control medications. May be needed if no improvement. #Prolonged QTc: QTc 563 on EKG, was not prolonged on previous admissions. -Will monitor electrolytes and QTc prolonging medications closely. Pulmonary: #Abnormal CXR (03/05) bilateral groundglass opacities predominantly in the perihilar regions , Follow up CT Chest (03/05) with extensive bilateral ground glass and consolidative opacitie s are new compared to 03/02/2017, possibly r/t leukostasis vs. DAH vs. infection. Lactate 03/04= 0.8. -Treat leukemia as above -Abx as above -Keep platelets >20K -Supplemental O2 PRN #COPD: Home inhalers ordered #FVO r/t MIVF: -Decreased MIVF -Diurese PRN, last given 40mg Lasix 03/11. GI: #Hemorrhoidal pain: -prn proctocort -Stool softereners Renal: #Risk for TLS, no signs of TLS at this time: -TLS labs daily. -Allopurinol daily stopped 03/08 with leukopenia . -MIVF Neuro/Psych: #Diffuse pain: Likely due to hematologic malignancy. Morphine allergy but per patient other opioids OK. - Tylenol - Oxycodone PRN #Depression/Anxiety: -Continue home duloxetine, dose reduced as above -Social work following -Lorazepam PRN for anxiety Endocrine: #Hypothyroidism: -Continue home synthroid Infectious Disease: #Non-neutropenic fevers, possibly disease related fevers. BCx 03/03 NGTD, UA clear. CXR with consolidation (see pulm section) possibly from leukostasis vs infection vs DAH. -Continue Cefepime (03/02- ) -Added Doxycycline 03/10 d/t PICC site redness. Plan had been for 5 day course, but stopped 03/12 d/t worsening erythema and tenderness. PICC pulled 03/14. -Vancomycin (03/12 - ) -03/12 cultures negative. -left arm picc removed 03/14 and replaced in right arm 03/15. #Prophylaxis: Bacterial: As above Fungal: Posaconazole Viral: Acyclovir PCP: Pentam given 03/09/17 Fluid/Nutrition/Lytes: #Nutrition: Regular diet, No Madeline's yogurt or Kefir #Fluid: 1L NS bolus O/N for po intake <2L/day #Lytes; Continue to check chemistries daily. Replace per supportive care protocol. Disposition: Admitted for further work-up and treatment for relapsed AML. Anticipate 3-[address] [facility] [facility] admission. Raghavendra Bone PA-C, [facility] [address] [facility] Mailcode: [id number] [place] [address] Krzysztof Gallagher MD - 03/18/2017 10:33 AM PSTHematologic Malignancies/Bone Marrow Tra nsplant Inpatient Attending Progress Note: 03/18/2017 I rounded today in conjunction with the Advanced Practice Provider. I saw the patient, reviewed the history and relevant studies, and developed an assessment a nd plan. Subjective: No complaints. Walked 10 laps. Objective: Scleral hemorrhages. Poor dentition. Please see the Advanced Practice Provider documentation from today for the details regardin g assessment and plan. The patient is Day 14, FLAG-Arlette + midostaurin re-induction Rhea Hutchison is a 51 y.o. female with the following hospitalization problem list: Patients Hospital Problem List: Active Hospital Problems 1) *Acute myeloid leukemia not having achieved remission (HCC) 2) COPD (chronic obstructive pulmonary disease) (HCC) 3) Anxiety and depression 4) Learning disability 5) Neutropenic fever (HCC) 6) Abnormal CXR 7) Local infection due to PICC (peripherally inserted central catheter) Plans today include: -G-CSF -transfusion supports -empiric cefepime 03/02- -vancomycin 03/12- -antiemetics Krzysztof Moe MD [facility] [address] [facility] Mailcode: [id number] [place] [address] Raghavendra Bone PA-C,[facility] - 03/17/2017 2:56 PM PSTFormatting of this note may be different f rom the original. Daily NPP Note - Hematologic Malignancies/Chemo Admit [facility] Attending: Krzysztof Fernández MD [facility] [place] MD: Angela Goldberg MD PCP: Saurav De Los Santos NP Date of Admission: 03/02/17 Hematologic Malignancy: AML Reason for admission: Relapsed AML, admitted for w/u and treatment ID: 51yo woman with relapsed AML admitted for treatment. PMH includes COPD, depression/anxi ety, learning disability, bladder spasms and hypothyroidism. 24 Hour Events/Current Daily Plan: -AML, relapsed post induction and consolidation for favorable risk AML (+NPM1, +FLT3-TKD) a dmitted with WBC >100K. -Day 13 of reinduction with Flag-Arlette + Midostaurin (days 8-21) -Pancytopenia r/t relapsed disease: Standard transfusion protocol -Non-neutropenic fever: present on admission and continued x 3 days, possibly disease relat ed fevers vs PNA. Blood cx 03/03 negative. UA clear. CXR as below. -Continue Cefepime (03/02- ) -Added Doxycycline 03/10 d/t PICC erythema/tenderness. Erythema/tenderness worsened 03/12- - stopped doxycycline changed to Vanco on 03/12. -Blood cultures drawn prior to initiation of vancomycin NGTD. -Left arm picc pulled 03/14 due to erythema and tenderness; PICC replaced in right arm -consider DC vanco when left arm erythema is improved. -HTN: amlodipine 5mg daily started 03/13 -N/V: primarily in the morning. Scheduled zofran BID and compazine every morning before shel[place] akfast. -Diarrhea: improved. C.diff negative 03/14. -Psychosocial: Hx MDD. Continue Cymbalta 30 mg BID. Difficulty coping with relapsed disease . Social work following. Subjective: Feeling well today - no acute changes - walking laps and playing cards Objective: Last Vitals: BP 160/86 | Pulse 84 | Temp 36.6 C (97.9 F) | RR 16 | Ht 1.6 m (5' 3") | W t 86.6 kg (191 lb) | SpO2 95% | BMI 33.83 kg/(m^2) 24 Hour Vital Min/Max: Systolic (24hrs), Av , Min:139 , Max:177 Diastolic (24hrs), Av, Min:72, Max:98 Pulse Min: 75 Max: 101 Temp Min: 36.4 C (97.5 F) Max: 36.8 C (98.2 F) Resp Min: 16 Max: 18 SpO2 Min: 92 % Max: 97 % Intake/Output Summary (Last 24 hours) at 03/17/17 1456 Last data filed at 03/17/17 1330 Gross per 24 hour Intake 3415 ml Output 2875 ml Net 540 ml Physical Exam: General: This is a female in NAD. Sitting upright in chair. at bedside. HEENT: PERRL. Scleral hemorrhages bilaterally. Mucosa pink and moist without erythema or exudate. Skin: No rash, lesions noted. Scattered ecchymoses on BUE & petechiae on BLE. Chest: Lungs mildly diminished to auscultation bilat. Normal work of breath on room air. CV: RRR, no murmurs. Abdomen: S/NT/ND with NABS. No HSM appreciated. Extremities: Pulses strong and equal bilaterally. No c/c/e. NeuroPsych: Alert and oriented x 3. Grossly nonfocal exam. CVC: Left arm erythema improved, but stamping mill tender and firm. Recent Labs 03/14/17 2325 03/15/17 1243 03/15/17 2349 03/16/17 2304 NA 141 138 139 141 K 2.8* 3.1* 3.3* 3.3* CL 103 103 104 105 BICARB 28 27 28 30 BUN 7 8 10 8 CR 0.40* 0.38* 0.47* 0.45* GLU 115* 113* 107* 107* CA 7.6* 8.2* 8.2* 8.2* AST 19 -- 20 18 ALT 35 -- 35 33 AP 145* -- 156* 158* TBILI 0.5 -- 0.7 0.6 TP 5.2* -- 5.8* 5.8* ALB 2.4* -- 2.8* 2.8* Recent Labs 03/04/17 2330 03/06/17 0227 03/06/17 2200 03/14/17 2325 03/15/17 2349 03/16/17 2304 WBC 7.66 < > 3.38* < > 0.54* < > <0.10* <0.10* <0.10* RBC 2.72* < > 2.66* < > 2.21* < > 2.26* 2.54* 2.37* HB 8.5* < > 8.6* < > 7.1* < > 7.1* 8.0* 7.5* HCT 25.6* < > 25.0* < > 21.1* < > 19.9* 22.2* 20.9* PLT 5* < > 26* < > 23* < > 20* 14* 8* NEUTROPERC 10.5* -- 36.2* -- 38.7* -- -- -- -- LYMPHPERC 14.9* -- 18.4 -- 12.6* -- -- -- -- MONOPERC 7.0 -- 3.3* -- 1.8* -- -- -- -- BASOPERC 0.0 -- 0.0 -- 0.0 -- -- -- -- EOSPERC 0.0* -- 0.0* -- 0.0* -- -- -- -- < > = values in this interval not displayed. Meds: Reviewed on rounds, see current MAR for medication list SUMMARY OF PATIENT'S HOSPITALIZATION Past Medical History: Rhea Hutchison is a 50 year old woman with history of COPD, depression, bladder spasms, hypoth yroidism and AML s/p induction 7+3+dasatinib and MiDAC consolidation (Apr 2016) who present s with AML recurrence. She is here with her and reports that she has had increasing diffuse body pains for approximately the past month. She was seen in her oncology clinic on 03/01 where she was noted to have a WBC 103K, up from her previously normal 5K in November. She reports that she has had increasing fatigue, nausea, vomiting, headache and now a sore at t he base of her inferior incisors in her mouth that occasionally bleed. She has also develop ed petechiae across her abdomen. She was admitted to [facility] where CXR was consistent with pulmonary leukostasis. Per Ca reEverywhere he labs were: WBC of 103,6000 (92% blasts) hgb 13.8 Hct 41.8%, Platelet count o f 10,000, Ldh 4427 U/L (ULN 215 U/L), Bun 14 mg/dL, Scr 0.82 mg/dL. She received fluids,hydroxyurea 2g q4hrs, 3L O2 per minute and a platelet transfusion prior to transfer. She reported no fevers but was febrile upon arrival at [facility]. Review of Systems: Positive for fatigue, night sweats, intermittent non-productive cough, d ecreased appetite, constipation, rash on abdomen, bleeding in mouth Oncology History (adapted from prior heme/onc notes) Last seen at [facility] Apr 2016 for consolidation therapy but per OSH notes, she has had the fol lowing events: Jan 2016 emergent bone marrow bx: bone marrow biopsy and aspiration at [facility] on February 15, 2016 confirmed acute myelogenous leukemia, diploid, positive for FLT-3 tyrosine kinase domai n mutation (also positive for NPM1, DNMT3A, NRAS, NPM1 and TET2 mutations). Induction chemotherapy with conventional 7+3 cytarabine/idarubicin February 16, 2016 with co ntinuous daily dasatinib (Sprycel) complicated by fungal pneumonia, neutropenic fever, hidra denitis suppurativa, and Clostridium Difficile colitis. Repeat bone marrow biopsy on 2015 (day 28); First complete remission. 1. Cycle#3 MiDaC (1200 mg/m Cytarabine) consolidation at [facility] on May 28, 2016. 2. Cycle#4 MiDaC (1000 mg/m Cytarabine ) consolidation at [facility] on June 25, 2016. 3. Bone Marrow Biopsy and Aspiration July 23, 2016 at the [facility] in [place], [place] specimen # [id number] demonstrated ongoing complete remissio n. Molecular analysis was negative for any residual NPM1 mutation positive cells and negativ e for any FLT-3 mutation positive cells (sensitivity is 1 in 20,000). 4. CBC on December 25, 2016; WBC 5,000, Hgb 14.6 gm/dl, Hct 42.7, Platelet 138,000. 5. MRI of right hip on January 25, 2017 in anticipation of right hip replacement; numerou s subcentimeter round marrow repacing lesions within the visualized lower lumbar spine, pelv is, and femurs. 6. CT Chest/Abdomen/Pelvis on February 06, 2017; 3 cm left thyroid mass, no other suggestion of primary neoplasm. 7. Bone scan February 08, 2017; Normal. 8. PET/CT scan on February 27, 2017; diffuse uptake about the spleen and bone marrow. 9. CBC on March 01, 2017; WBC 103,5000 (92% blasts) Hgb 13.8, Hct 41.8%, Platelet count 1 0,000. [id number] U/L, BUN 14 mg/dL, Scr 0.82 mg/dL. 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 -Cytogenetics: 46,X,t(X;7)(q21;q32)[20] -Genetrails: PENDING, preliminary report + FLT3 ITD at 90% allele frequency Treatment: -Chemotherapy regimen: received hydrea 03/02-or leukocytosis, then started Flag-Arlette + Midostaurin (Day 1= 03/05/17) -Fludarabine 30mg/m2 (60mg) Daily, Days 1-5 -Idarubicin 8mg/m2 (16mg) Daily, Days 1-3 -Cytarabine 2000mg/m2 (4200mg) Daily, Days 1-5 -Midostaurin 50mg twice daily on Days 8-21 -Chemo Day: 13 -Pt is indicated for transplant with diagnosis of relapsed AML. They may be psychosocial b arriers to stem cell transplant, however will type sibs in meantime while plan is determined . #Pancytopenia d/t relapsed disease and chemo: -See supportive care #Supportive Care: Growth factor: daily filgrastim per FLAG-Arlette protocol. Labs: Continue to check CBC with diff daily Transfusion parameters: -Transfuse PRBCs for HCT <21% if asymptomatic OR <24% if symptomatic -Transfuse PPH for platelet count <10,000 #Bleeding, likely due to decreased platelet production and not DIC: Epistaxis and bleeding from PICC site, noted 03/04. -Kept platelets >20K until 03/14 back to 10K with improvement. -Tranexamic acid TID- stopped 03/07 with improved bleeding and corrected INR. -received Vitamin K x3 days Cardiovascular: TTE completed 03/04 with EF=70%. #Sinus tachycardia with hypertension: -Likely multifactorial: tumor lysis, fever, pain, volume depletion, ? Sepsis. No evidence of cardiac ischemia -Not on rate control medications. May be needed if no improvement. #Prolonged QTc: QTc 563 on EKG, was not prolonged on previous admissions. -Will monitor electrolytes and QTc prolonging medications closely. Pulmonary: #Abnormal CXR (03/05) bilateral groundglass opacities predominantly in the perihilar regions , Follow up CT Chest (03/05) with extensive bilateral ground glass and consolidative opacitie s are new compared to 03/02/2017, possibly r/t leukostasis vs. DAH vs. infection. Lactate 03/04= 0.8. -Treat leukemia as above -Abx as above -Keep platelets >20K -Supplemental O2 PRN #COPD: Home inhalers ordered #FVO r/t MIVF: -Decreased MIVF -Diurese PRN, last given 40mg Lasix 03/11. GI: #Hemorrhoidal pain: -prn proctocort -Stool softereners Renal: #Risk for TLS, no signs of TLS at this time: -TLS labs daily. -Allopurinol daily stopped 03/08 with leukopenia . -MIVF Neuro/Psych: #Diffuse pain: Likely due to hematologic malignancy. Morphine allergy but per patient other opioids OK. - Tylenol - Oxycodone PRN #Depression/Anxiety: -Continue home duloxetine, dose reduced as above -Social work following -Lorazepam PRN for anxiety Endocrine: #Hypothyroidism: -Continue home synthroid Infectious Disease: #Non-neutropenic fevers, possibly disease related fevers. BCx 03/03 NGTD, UA clear. CXR with consolidation (see pulm section) possibly from leukostasis vs infection vs DAH. -Continue Cefepime (03/02- ) -Added Doxycycline 03/10 d/t PICC site redness. Plan had been for 5 day course, but stopped 03/12 d/t worsening erythema and tenderness. PICC pulled 03/14. -Vancomycin (03/12 - ) -03/12 cultures negative. -left arm picc removed 03/14 and replaced in right arm 03/15. #Prophylaxis: Bacterial: As above Fungal: Posaconazole Viral: Acyclovir PCP: Pentam given 03/09/17 Fluid/Nutrition/Lytes: #Nutrition: Regular diet, No Madeline's yogurt or Kefir #Fluid: 1L NS bolus O/N for po intake <2L/day #Lytes; Continue to check chemistries daily. Replace per supportive care protocol. Disposition: Admitted for further work-up and treatment for relapsed AML. Anticipate 3-[address] [facility] admission. Raghavendra Bone PA-C, RUSTS [facility] [address] [facility] Mailcode: [id number] [place] [address] Krzysztof Gallagher MD - 03/17/2017 11:20 AM PSTHematologic Malignancies/Bone Marrow Tra nsplant Inpatient Attending Progress Note: 03/17/2017 I rounded today in conjunction with the Advanced Practice Provider. I saw the patient, reviewed the history and relevant studies, and developed an assessment a nd plan. Subjective: Feeling well. Walking. Objective: Scleral hemorrhages. Poor dentition. Please see the Advanced Practice Provider documentation from today for the details regardin g assessment and plan. The patient is Day 13, FLAG-Arlette + midostaurin re-induction Rhea Hutchison is a 51 y.o. female with the following hospitalization problem list: Patients Hospital Problem List: Active Hospital Problems 1) *Acute myeloid leukemia not having achieved remission (HCC) 2) COPD (chronic obstructive pulmonary disease) (HCC) 3) Anxiety and depression 4) Learning disability 5) Neutropenic fever (HCC) 6) Abnormal CXR 7) Local infection due to PICC (peripherally inserted central catheter) Plans today include: -G-CSF -transfusion supports -empiric cefepime 03/02- -vancomycin 03/12- -antiemetics Krzysztof Moe MD [facility] [address] [facility] Mailcode: [id number] [place] [address] Raghavendra Bone PA-C,RUSTS - 03/16/2017 11:24 AM PSTFormatting of this note may be different f rom the original. Daily NPP Note - Hematologic Malignancies/Chemo Admit [facility] Attending: Krzysztof Fernández MD [facility] [place] MD: Angela Goldberg MD PCP: Saurav De Los Santos NP Date of Admission: 03/02/17 Hematologic Malignancy: AML Reason for admission: Relapsed AML, admitted for w/u and treatment ID: 51yo woman with relapsed AML admitted for treatment. PMH includes COPD, depression/anxi ety, learning disability, bladder spasms and hypothyroidism. 24 Hour Events/Current Daily Plan: -AML, relapsed post induction and consolidation for favorable risk AML (+NPM1, +FLT3-TKD) a dmitted with WBC >100K. -Day 12 of reinduction with Flag-Arlette + Midostaurin (days 8-21) -Pancytopenia r/t relapsed disease: Standard transfusion protocol -Non-neutropenic fever: present on admission and continued x 3 days, possibly disease relat ed fevers vs PNA. Blood cx 03/03 negative. UA clear. CXR as below. -Continue Cefepime (03/02- ) -Added Doxycycline 03/10 d/t PICC erythema/tenderness. Erythema and tenderness worsened -- stopped doxycycline changed to Vanco on 03/12. -Blood cultures drawn prior to initia tion of vancomycin NGTD. -Left arm picc pulled 03/14 due to erythema and tenderness; PICC replaced in right arm -consider DC vanco when left arm erythema is improved. -HTN: amlodipine 5mg daily started 03/13 -N/V: primarily in the morning. Scheduled zofran BID and compazine every morning before shelby akfast. -Diarrhea: improved. C.diff negative 03/14. -Psychosocial: Hx MDD. Continue Cymbalta 30 mg BID. Difficulty coping with relapsed disease . Social work following. Subjective: Feeling well today - no acute changes Objective: Last Vitals: BP 155/88 | Pulse 94 | Temp 36.7 C (98.1 F) | RR 16 | Ht 1.6 m (5' 3") | W t 91.2 kg (201 lb 1 oz) | SpO2 94% | BMI 35.62 kg/(m^2) 24 Hour Vital Min/Max: Systolic (24hrs), Av , Min:155 , Max:167 Diastolic (24hrs), Av, Min:82, Max:89 Pulse Min: 80 Max: 94 Temp Min: 36.6 C (97.9 F) Max: 36.7 C (98.1 F) Resp Min: 16 Max: 16 SpO2 Min: 94 % Max: 96 % Intake/Output Summary (Last 24 hours) at 03/16/17 1124 Last data filed at 03/16/17 0841 Gross per 24 hour Intake 3030 ml Output 1975 ml Net 1055 ml Physical Exam: General: This is a female in NAD. Sitting upright in chair. at bedside. HEENT: PERRL. Scleral hemorrhages bilaterally. Mucosa pink and moist without erythema or exudate. Skin: No rash, lesions noted. Scattered ecchymoses on BUE & petechiae on BLE. Chest: Lungs mildly diminished to auscultation bilat. Normal work of breath on room air. CV: RRR, no murmurs. Abdomen: S/NT/ND with NABS. No HSM appreciated. Extremities: Pulses strong and equal bilaterally. No c/c/e. NeuroPsych: Alert and oriented x 3. Grossly nonfocal exam. CVC: Left arm erythema improved, but stamping mill tender and firm. Recent Labs 03/13/17 2355 03/14/17 2325 03/15/17 1243 03/15/17 2349 NA 139 141 138 139 K 3.3* 2.8* 3.1* 3.3* CL 104 103 103 104 BICARB 27 28 27 28 BUN 10 7 8 10 CR 0.34* 0.40* 0.38* 0.47* GLU 103* 115* 113* 107* CA 7.6* 7.6* 8.2* 8.2* AST 20 19 -- 20 ALT 35 35 -- 35 AP 136* 145* -- 156* TBILI 0.6 0.5 -- 0.7 TP 5.2* 5.2* -- 5.8* ALB 2.5* 2.4* -- 2.8* Recent Labs 03/04/17 2330 03/06/17 0227 03/06/17 2200 03/13/17 2355 03/14/17 2325 03/15/17 2349 WBC 7.66 < > 3.38* < > 0.54* < > <0.10* <0.10* <0.10* RBC 2.72* < > 2.66* < > 2.21* < > 2.38* 2.26* 2.54* HB 8.5* < > 8.6* < > 7.1* < > 7.4* 7.1* 8.0* HCT 25.6* < > 25.0* < > 21.1* < > 21.3* 19.9* 22.2* PLT 5* < > 26* < > 23* < > 18* 20* 14* NEUTROPERC 10.5* -- 36.2* -- 38.7* -- -- -- -- LYMPHPERC 14.9* -- 18.4 -- 12.6* -- -- -- -- MONOPERC 7.0 -- 3.3* -- 1.8* -- -- -- -- BASOPERC 0.0 -- 0.0 -- 0.0 -- -- -- -- EOSPERC 0.0* -- 0.0* -- 0.0* -- -- -- -- < > = values in this interval not displayed. Meds: Reviewed on rounds, see current MAR for medication list SUMMARY OF PATIENT'S HOSPITALIZATION Past Medical History: Rhea Hutchison is a 50 year old woman with history of COPD, depression, bladder spasms, hypoth yroidism and AML s/p induction 7+3+dasatinib and MiDAC consolidation (Apr 2016) who present s with AML recurrence. She is here with her and reports that she has had increasing diffuse body pains for approximately the past month. She was seen in her oncology clinic on 03/01 where she was noted to have a WBC 103K, up from her previously normal 5K in November. She reports that she has had increasing fatigue, nausea, vomiting, headache and now a sore at t he base of her inferior incisors in her mouth that occasionally bleed. She has also develop ed petechiae across her abdomen. She was admitted to [facility] where CXR was consistent with pulmonary leukostasis. Per Ca reEverywhere he labs were: WBC of 103,6000 (92% blasts) hgb 13.8 Hct 41.8%, Platelet count o f 10,000, Ldh 4427 U/L (ULN 215 U/L), Bun 14 mg/dL, Scr 0.82 mg/dL. She received fluids,hydroxyurea 2g q4hrs, 3L O2 per minute and a platelet transfusion prior to transfer. She reported no fevers but was febrile upon arrival at [facility]. Review of Systems: Positive for fatigue, night sweats, intermittent non-productive cough, d ecreased appetite, constipation, rash on abdomen, bleeding in mouth Oncology History (adapted from prior heme/onc notes) Last seen at [facility] Apr 2016 for consolidation therapy but per OSH notes, she has had the fol lowing events: Jan 2016 emergent bone marrow bx: bone marrow biopsy and aspiration at [facility] on February 15, 2016 confirmed acute myelogenous leukemia, diploid, positive for FLT-3 tyrosine kinase domai n mutation (also positive for NPM1, DNMT3A, NRAS, NPM1 and TET2 mutations). Induction chemotherapy with conventional 7+3 cytarabine/idarubicin February 16, 2016 with co ntinuous daily dasatinib (Sprycel) complicated by fungal pneumonia, neutropenic fever, hidra denitis suppurativa, and Clostridium Difficile colitis. Repeat bone marrow biopsy on 2015 (day 28); First complete remission. 1. Cycle#3 MiDaC (1200 mg/m Cytarabine) consolidation at [facility] on May 28, 2016. 2. Cycle#4 MiDaC (1000 mg/m Cytarabine ) consolidation at [facility] on June 25, 2016. 3. Bone Marrow Biopsy and Aspiration July 23, 2016 at the [facility] in [place], [place] specimen # [id number] demonstrated ongoing complete remissio n. Molecular analysis was negative for any residual NPM1 mutation positive cells and negativ e for any FLT-3 mutation positive cells (sensitivity is 1 in 20,000). 4. CBC on December 25, 2016; WBC 5,000, Hgb 14.6 gm/dl, Hct 42.7, Platelet 138,000. 5. MRI of right hip on January 25, 2017 in anticipation of right hip replacement; numerou s subcentimeter round marrow repacing lesions within the visualized lower lumbar spine, pelv is, and femurs. 6. CT Chest/Abdomen/Pelvis on February 06, 2017; 3 cm left thyroid mass, no other suggestion of primary neoplasm. 7. Bone scan February 08, 2017; Normal. 8. PET/CT scan on February 27, 2017; diffuse uptake about the spleen and bone marrow. 9. CBC on March 01, 2017; WBC 103,5000 (92% blasts) Hgb 13.8, Hct 41.8%, Platelet count 1 0,000. [id number] U/L, BUN 14 mg/dL, Scr 0.82 mg/dL. 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 -Cytogenetics: 46,X,t(X;7)(q21;q32)[20] -Genetrails: PENDING, preliminary report + FLT3 ITD at 90% allele frequency Treatment: -Chemotherapy regimen: received hydrea 03/02-or leukocytosis, then started Flag-Arlette + Midostaurin (Day 1= 03/05/17) -Fludarabine 30mg/m2 (60mg) Daily, Days 1-5 -Idarubicin 8mg/m2 (16mg) Daily, Days 1-3 -Cytarabine 2000mg/m2 (4200mg) Daily, Days 1-5 -Midostaurin 50mg twice daily on Days 8-21 -Chemo Day: 12 -Pt is indicated for transplant with diagnosis of relapsed AML. They may be psychosocial b arriers to stem cell transplant, however will type sibs in meantime while plan is determined . #Pancytopenia d/t relapsed disease and chemo: -See supportive care #Supportive Care: Growth factor: daily filgrastim per FLAG-Arlette protocol. Labs: Continue to check CBC with diff daily Transfusion parameters: -Transfuse PRBCs for HCT <21% if asymptomatic OR <24% if symptomatic -Transfuse PPH for platelet count <10,000 #Bleeding, likely due to decreased platelet production and not DIC: Epistaxis and bleeding from PICC site, noted 03/04. -Kept platelets >20K until 03/14 back to 10K with improvement. -Tranexamic acid TID- stopped 03/07 with improved bleeding and corrected INR. -received Vitamin K x3 days Cardiovascular: TTE completed 03/04 with EF=70%. #Sinus tachycardia with hypertension: -Likely multifactorial: tumor lysis, fever, pain, volume depletion, ? Sepsis. No evidence of cardiac ischemia -Not on rate control medications. May be needed if no improvement. #Prolonged QTc: QTc 563 on EKG, was not prolonged on previous admissions. -Will monitor electrolytes and QTc prolonging medications closely. Pulmonary: #Abnormal CXR (03/05) bilateral groundglass opacities predominantly in the perihilar regions , Follow up CT Chest (03/05) with extensive bilateral ground glass and consolidative opacitie s are new compared to 03/02/2017, possibly r/t leukostasis vs. DAH vs. infection. Lactate 03/04= 0.8. -Treat leukemia as above -Abx as above -Keep platelets >20K -Supplemental O2 PRN #COPD: Home inhalers ordered #FVO r/t MIVF: -Decreased MIVF -Diurese PRN, last given 40mg Lasix 03/11. GI: #Hemorrhoidal pain: -prn proctocort -Stool softereners Renal: #Risk for TLS, no signs of TLS at this time: -TLS labs daily. -Allopurinol daily stopped 03/08 with leukopenia . -MIVF Neuro/Psych: #Diffuse pain: Likely due to hematologic malignancy. Morphine allergy but per patient other opioids OK. - Tylenol - Oxycodone PRN #Depression/Anxiety: -Continue home duloxetine, dose reduced as above -Social work following -Lorazepam PRN for anxiety Endocrine: #Hypothyroidism: -Continue home synthroid Infectious Disease: #Non-neutropenic fevers, possibly disease related fevers. BCx 03/03 NGTD, UA clear. CXR with consolidation (see pulm section) possibly from leukostasis vs infection vs DAH. -Continue Cefepime (03/02- ) -Added Doxycycline 03/10 d/t PICC site redness. Plan had been for 5 day course, but stopped 03/12 d/t worsening erythema and tenderness. PICC pulled 03/14. -Vancomycin (03/12 - ) -03/12 cultures negative. -left arm picc removed 03/14 and replaced in right arm 03/15. #Prophylaxis: Bacterial: As above Fungal: Posaconazole Viral: Acyclovir PCP: Pentam given 03/09/17 Fluid/Nutrition/Lytes: #Nutrition: Regular diet, No Madeline's yogurt or Kefir #Fluid: 1L NS bolus O/N for po intake <2L/day #Lytes; Continue to check chemistries daily. Replace per supportive care protocol. Disposition: Admitted for further work-up and treatment for relapsed AML. Anticipate 3-[address] [facility] admission. Raghavendra Bone PA-C, R[facility] [address] [facility] Mailcode: [facility] [place] [address] Krzysztof Gallagher MD - 03/16/2017 9:00 AM PSTHematologic Malignancies/Bone Marrow Tra nsplant Inpatient Attending Progress Note: 03/16/2017 I rounded today in conjunction with the Advanced Practice Provider. I saw the patient, reviewed the history and relevant studies, and developed an assessment a nd plan. Subjective: Feeling well Objective: Scleral hemorrhages. Poor dentition. Please see the Advanced Practice Provider documentation from today for the details regardin g assessment and plan. The patient is Day 12, FLAG-Arlette + midostaurin re-induction Rhea Hutchison is a 51 y.o. female with the following hospitalization problem list: Patients Hospital Problem List: Active Hospital Problems 1) *Acute myeloid leukemia not having achieved remission (HCC) 2) COPD (chronic obstructive pulmonary disease) (HCC) 3) Anxiety and depression 4) Learning disability 5) Neutropenic fever (HCC) 6) Abnormal CXR 7) Local infection due to PICC (peripherally inserted central catheter) Plans today include: -G-CSF -transfusion supports -empiric cefepime 03/02- -vancomycin 03/12- -antiemetics Krzysztof Moe MD [address] Mailcode: [id number] [place] [address] Krzysztof Gallagher MD - 03/15/2017 7:57 PM PSTHematologic Malignancies/Bone Marrow Tra nsplant Inpatient Attending Progress Note: 03/15/2017 I rounded today in conjunction with the Advanced Practice Provider. I saw the patient, reviewed the history and relevant studies, and developed an assessment a nd plan. Subjective: No complaints. Found walking in fu with her . Objective: New PICC in place. Poor dentition. Please see the Advanced Practice Provider documentation from today for the details regardin g assessment and plan. The patient is Day 11, FLAG-Arlette + midostaurin re-induction Rhea Hutchison is a 51 y.o. female with the following hospitalization problem list: Patients Hospital Problem List: Active Hospital Problems 1) COPD (chronic obstructive pulmonary disease) (HCC) 2) Anxiety and depression 3) AML (acute myeloid leukemia) (HCC) 4) Learning disability 5) Neutropenic fever (HCC) 6) Abnormal CXR 7) Local infection due to PICC (peripherally inserted central catheter) Plans today include: -G-CSF -transfusion supports -empiric cefepime 03/02- -vancomycin 03/12- -PICC replaced today -antiemetics Krzysztof Moe MD [address] Mailcode: [id number] [place] [address] Cierra Flowers PA - 03/15/2017 4:43 PM PSTFormatting of this note may be differen t from the original. Daily NPP Note - Hematologic Malignancies/Chemo Admit [facility] for Hematologic Malignancies Attending: MD KALA Ulrich MD: Angela Goldberg MD PCP: Saurav De Los Santos NP Date of Admission: 03/02/17 Hematologic Malignancy: AML Reason for admission: Relapsed AML, admitted for w/u and treatment ID: 51yo woman with relapsed AML admitted for treatment. PMH includes COPD, depression/anxi ety, learning disability, bladder spasms and hypothyroidism. 24 Hour Events/Current Daily Plan: -AML, relapsed post induction and consolidation for favorable risk AML (+NPM1, +FLT3-TKD) a dmitted with WBC >100K. -Day 11 of reinduction with Flag-Arlette + Midostaurin (days 8-21) -Pancytopenia r/t relapsed disease: Standard transfusion protocol -Non-neutropenic fever: present on admission and continued x 3 days, possibly disease relat ed fevers vs PNA. Blood cx 03/03 negative. UA clear. CXR as below. -Continue Cefepime (03/02- ) -Added Doxycycline 03/10 d/t PICC erythema/tenderness. Erythema and tenderness worsened -- stopped doxycycline and started Vanco on 03/12. Blood cultures drawn prior to initiati on of vancomycin NGTD. -Left arm picc pulled 03/14 due to erythema and tenderness. -consider DC vanco when left arm erythema is improved. -PICC replaced in right arm today. -HTN: amlodipine 5mg daily started 03/13 -N/V: primarily in the morning. Scheduled zofran BID and compazine every morning before shelby akfast. -Diarrhea: improved. C.diff negative 03/14. -Psychosocial: Hx MDD. Continue Cymbalta 30 mg BID. Difficulty coping with relapsed disease . Social work following. Subjective: Feels better today. No complaints. Objective: Last Vitals: BP 160/84 | Pulse 83 | Temp 36.7 C (98.1 F) | RR 16 | Ht 1.6 m (5' 3") | W t 91.5 kg (201 lb 11.5 oz) | SpO2 96% | BMI 35.73 kg/(m^2) 24 Hour Vital Min/Max: Systolic (24hrs), Av , Min:136 , Max:167 Diastolic (24hrs), Av, Min:61, Max:89 Pulse Min: 77 Max: 105 Temp Min: 36.6 C (97.9 F) Max: 36.8 C (98.2 F) Resp Min: 16 Max: 18 SpO2 Min: 91 % Max: 96 % Intake/Output Summary (Last 24 hours) at 03/15/17 1643 Last data filed at 03/15/17 1538 Gross per 24 hour Intake 2930 ml Output 4525 ml Net -1595 ml Physical Exam: General: This is a female in NAD. Sitting upright in chair. at bedside. HEENT: PERRL. Scleral hemorrhages bilaterally. Mucosa pink and moist without erythema or exudate. Skin: No rash, lesions noted. Scattered ecchymoses on BUE & petechiae on BLE. Chest: Lungs mildly diminished to auscultation bilat. Normal work of breath on room air. CV: RRR, no murmurs. Abdomen: S/NT/ND with NABS. No HSM appreciated. Extremities: Pulses strong and equal bilaterally. No c/c/e. NeuroPsych: Alert and oriented x 3. Grossly nonfocal exam. CVC: Left arm erythema improved, but stamping mill tender and firm. Recent Labs 03/12/17232003/13/17235403/14/17232403/15/17 1243 NA 141 139 141 138 K 3.6 3.3* 2.8* 3.1* CL 107 104 103 103 BICARB 27 27 28 27 BUN 15 10 7 8 CR 0.47* 0.34* 0.40* 0.38* GLU 100* 103* 115* 113* CA 7.8* 7.6* 7.6* 8.2* AST 26 20 19 -- ALT 40 35 35 -- AP 145* 136* 145* -- TBILI 0.7 0.6 0.5 -- TP 5.5* 5.2* 5.2* -- ALB 2.6* 2.5* 2.4* -- Recent Labs 03/04/17 2330 03/06/177 03/06/17 22003/12/17232003/13/17235403/14/172324 WBC 7.66 < > 3.38* < > 0.54* < > <0.10* <0.10* <0.10* RBC 2.72* < > 2.66* < > 2.21* < > 2.56* 2.38* 2.26* HB 8.5* < > 8.6* < > 7.1* < > 7.9* 7.4* 7.1* HCT 25.6* < > 25.0* < > 21.1* < > 23.1* 21.3* 19.9* PLT 5* < > 26* < > 23* < > 13* 18* 20* NEUTROPERC 10.5* -- 36.2* -- 38.7* -- -- -- -- LYMPHPERC 14.9* -- 18.4 -- 12.6* -- -- -- -- MONOPERC 7.0 -- 3.3* -- 1.8* -- -- -- -- BASOPERC 0.0 -- 0.0 -- 0.0 -- -- -- -- EOSPERC 0.0* -- 0.0* -- 0.0* -- -- -- -- < > = values in this interval not displayed. Meds: Reviewed on rounds, see current MAR for medication list SUMMARY OF PATIENT'S HOSPITALIZATION Past Medical History: Rhea Hutchison is a 50 year old woman with history of COPD, depression, bladder spasms, hypoth yroidism and AML s/p induction 7+3+dasatinib and MiDAC consolidation (Apr 2016) who present s with AML recurrence. She is here with her and reports that she has had increasing diffuse body pains for approximately the past month. She was seen in her oncology clinic on 03/01 where she was noted to have a WBC 103K, up from her previously normal 5K in November. She reports that she has had increasing fatigue, nausea, vomiting, headache and now a sore at t he base of her inferior incisors in her mouth that occasionally bleed. She has also develop ed petechiae across her abdomen. She was admitted to [facility] where CXR was consistent with pulmonary leukostasis. Per Ca reEverywhere he labs were: WBC of 103,6000 (92% blasts) hgb 13.8 Hct 41.8%, Platelet count o f 10,000, Ldh 4427 U/L (ULN 215 U/L), Bun 14 mg/dL, Scr 0.82 mg/dL. She received fluids,hydroxyurea 2g q4hrs, 3L O2 per minute and a platelet transfusion prior to transfer. She reported no fevers but was febrile upon arrival at [facility]. Review of Systems: Positive for fatigue, night sweats, intermittent non-productive cough, d ecreased appetite, constipation, rash on abdomen, bleeding in mouth Oncology History (adapted from prior heme/onc notes) Last seen at [facility] Apr 2016 for consolidation therapy but per OSH notes, she has had the fol lowing events: Jan 2016 emergent bone marrow bx: bone marrow biopsy and aspiration at [facility] on February 15, 2016 confirmed acute myelogenous leukemia, diploid, positive for FLT-3 tyrosine kinase domai n mutation (also positive for NPM1, DNMT3A, NRAS, NPM1 and TET2 mutations). Induction chemotherapy with conventional 7+3 cytarabine/idarubicin February 16, 2016 with co ntinuous daily dasatinib (Sprycel) complicated by fungal pneumonia, neutropenic fever, hidra denitis suppurativa, and Clostridium Difficile colitis. Repeat bone marrow biopsy on 2015 (day 28); First complete remission. 1. Cycle#3 MiDaC (1200 mg/m Cytarabine) consolidation at [facility] on May 28, 2016. 2. Cycle#4 MiDaC (1000 mg/m Cytarabine ) consolidation at [facility] on June 25, 2016. 3. Bone Marrow Biopsy and Aspiration July 23, 2016 at the [facility] in [place], [place] specimen # [id number] demonstrated ongoing complete remissio n. Molecular analysis was negative for any residual NPM1 mutation positive cells and negativ e for any FLT-3 mutation positive cells (sensitivity is 1 in 20,000). 4. CBC on December 25, 2016; WBC 5,000, Hgb 14.6 gm/dl, Hct 42.7, Platelet 138,000. 5. MRI of right hip on January 25, 2017 in anticipation of right hip replacement; numerou s subcentimeter round marrow repacing lesions within the visualized lower lumbar spine, pelv is, and femurs. 6. CT Chest/Abdomen/Pelvis on February 06, 2017; 3 cm left thyroid mass, no other suggestion of primary neoplasm. 7. Bone scan February 08, 2017; Normal. 8. PET/CT scan on February 27, 2017; diffuse uptake about the spleen and bone marrow. 9. CBC on March 01, 2017; WBC 103,5000 (92% blasts) Hgb 13.8, Hct 41.8%, Platelet count 1 0,000. [id number] U/L, BUN 14 mg/dL, Scr 0.82 mg/dL. 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 -Cytogenetics: 46,X,t(X;7)(q21;q32)[20] -Genetrails: PENDING, preliminary report + FLT3 ITD at 90% allele frequency Treatment: -Chemotherapy regimen: received hydrea 03/02-or leukocytosis, then started Flag-Arlette + Midostaurin (Day 1= 03/05/17) -Fludarabine 30mg/m2 (60mg) Daily, Days 1-5 -Idarubicin 8mg/m2 (16mg) Daily, Days 1-3 -Cytarabine 2000mg/m2 (4200mg) Daily, Days 1-5 -Midostaurin 50mg twice daily on Days 8-21 -Chemo Day: 11 -Pt is indicated for transplant with diagnosis of relapsed AML. They may be psychosocial b arriers to stem cell transplant, however will type sibs in meantime while plan is determined . #Pancytopenia d/t relapsed disease and chemo: -See supportive care #Supportive Care: Growth factor: daily filgrastim per FLAG-Arlette protocol. Labs: Continue to check CBC with diff daily Transfusion parameters: -Transfuse PRBCs for HCT <21% if asymptomatic OR <24% if symptomatic -Transfuse PPH for platelet count <10,000 #Bleeding, likely due to decreased platelet production and not DIC: Epistaxis and bleeding from PICC site, noted 03/04. -Kept platelets >20K until 03/14 back to 10K with improvement. -Tranexamic acid TID- stopped 03/07 with improved bleeding and corrected INR. -received Vitamin K x3 days Cardiovascular: TTE completed 03/04 with EF=70%. #Sinus tachycardia with hypertension: -Likely multifactorial: tumor lysis, fever, pain, volume depletion, ? Sepsis. No evidence of cardiac ischemia -Not on rate control medications. May be needed if no improvement. #Prolonged QTc: QTc 563 on EKG, was not prolonged on previous admissions. -Will monitor electrolytes and QTc prolonging medications closely. Pulmonary: #Abnormal CXR (03/05) bilateral groundglass opacities predominantly in the perihilar regions , Follow up CT Chest (03/05) with extensive bilateral ground glass and consolidative opacitie s are new compared to 03/02/2017, possibly r/t leukostasis vs. DAH vs. infection. Lactate 03/04= 0.8. -Treat leukemia as above -Abx as above -Keep platelets >20K -Supplemental O2 PRN #COPD: Home inhalers ordered #FVO r/t MIVF: -Decreased MIVF -Diurese PRN, last given 40mg Lasix 03/11. GI: #Hemorrhoidal pain: -prn proctocort -Stool softereners Renal: #Risk for TLS, no signs of TLS at this time: -TLS labs daily. -Allopurinol daily stopped 03/08 with leukopenia . -MIVF Neuro/Psych: #Diffuse pain: Likely due to hematologic malignancy. Morphine allergy but per patient other opioids OK. - Tylenol - Oxycodone PRN #Depression/Anxiety: -Continue home duloxetine, dose reduced as above -Social work following -Lorazepam PRN for anxiety Endocrine: #Hypothyroidism: -Continue home synthroid Infectious Disease: #Non-neutropenic fevers, possibly disease related fevers. BCx 03/03 NGTD, UA clear. CXR with consolidation (see pulm section) possibly from leukostasis vs infection vs DAH. -Continue Cefepime (03/02- ) -Added Doxycycline 03/10 d/t PICC site redness. Plan had been for 5 day course, but stopped 03/12 d/t worsening erythema and tenderness. PICC pulled 03/14. -Vancomycin (03/12 - ) -03/12 cultures negative. -left arm picc removed 03/14 and replaced in right arm 03/15. #Prophylaxis: Bacterial: As above Fungal: Posaconazole Viral: Acyclovir PCP: Pentam given 03/09/17 Fluid/Nutrition/Lytes: #Nutrition: Regular diet, No Madeline's yogurt or Kefir #Fluid: 1L NS bolus O/N for po intake <2L/day #Lytes; Continue to check chemistries daily. Replace per supportive care protocol. Disposition: Admitted for further work-up and treatment for relapsed AML. Anticipate 3-[address] [facility] admission. Cierra Flowers PA-C [facility] [id number] [facility] Mailcode: [id number] [facility] [id number] Kay Duarte MD - 03/14/2017 1:42 PM PSTFormatting of this note may be different from th e original. 03/14/2017 Hematologic Malignancies Attending Inpatient Progress Note: I was present and rounded today in conjunction with the PA, Cierra Flowers. I examined the patient, reviewed the relevant history and studies, and formulated a plan. Please see the NICOLE documentation from today for details. It is noted that patient reports: Threw up after breakfast again today. Pain is better afte r PICC removal. Denies nausea/vomiting/diarrhea/constipation. Vitals: Systolic (24hrs), Av , Min:132 , Max:167 Diastolic (24hrs), Av, Min:64, Max:83 Pulse Av Min: 83 Max: 103 Temp Av.7 C (98.1 F) Min: 36.6 C (97.9 F) Max: 37 C (98.6 F) Resp Av.4 Min: 16 Max: 20 SpO2 Av % Min: 90 % Max: 95 % Intake/Output Summary (Last 24 hours) at 03/14/17 1342 Last data filed at 03/14/17 1138 Gross per 24 hour Intake 2905 ml Output 2685 ml Net 220 ml Current medications: Current Facility-Administered Medications Medication Dose Route Frequency Last Rate acyclovir (ZOVIRAX) tablet 800 mg 800 mg oral DAILY amLODIPine (NORVASC) tablet 5 mg 5 mg oral DAILY ceFEPIme (MAXIPIME) injection 2 g 2 g intravenous Q8H DULoxetine (CYMBALTA) capsule 30 mg 30 mg oral BID filgrastim-sndz (ZARXIO) injection 300 mcg 300 mcg subcutaneous QPM AT 1700 hydrocortisone (PROCTOCORT) 1 % rectal cream rectal TID levothyroxine tablet 50 mcg 50 mcg oral DAILY midostaurin (RYDAPT) cap 50 mg 50 mg oral QLUNCH omeprazole (PRILOSEC) capsule 20 mg 20 mg oral BEFORE BREAKFAST ondansetron (ZOFRAN) tablet 8 mg 8 mg oral BID oxybutynin CR (DITROPAN-XL) tablet 15 mg 15 mg oral DAILY pentamidine (PENTAM) IV 300 mg 300 mg intravenous Q4W Stopped (03/09/17 1230) posaconazole DR (NOXAFIL) tablet 300 mg 300 mg oral DAILY [START ON 03/15/2017] prochlorperazine (COMPAZINE) tablet 5-10 mg 5-10 mg oral DAILY tiotropium (SPIRIVA) inhalation 18 mcg 18 mcg inhalation DAILY vancomycin (VANCOCIN) IV 1,500 mg 1,500 mg intravenous Q12H Allergies: Allergies Allergen Reactions Morphine Rash and Facial Swelling Rash and facial swelling Opioids - Morphine Analogues Confusion Laboratory or other studies: Recent Labs 03/11/17230103/12/17232003/13/17 2355 WBC <0.10* <0.10* <0.10* HB 8.4* 7.9* 7.4* HCT 24.1* 23.1* 21.3* PLT 17* 13* 18* Recent Labs 03/11/17230103/12/17232003/13/17 2355 NA 137 141 139 K 3.7 3.6 3.3* CL 103 107 104 BICARB 28 27 27 BUN 19 15 10 CR 0.48* 0.47* 0.34* CA 7.6* 7.8* 7.6* MG 2.2 2.4 2.1 PO4 1.7* 2.5 2.1* AST 36 26 20 ALT 47 40 35 TBILI 0.7 0.7 0.6 AP 164* 145* 136* ALB 3.0* 2.6* 2.5* TP 6.0* 5.5* 5.2* URINE CULTURE [facility] (no units) Date Value 03/05/2016 No growth (<1000 cfu/mL) after 24 hours CULTURE RESULT (no units) Date Value 03/12/2017 No growth to date. 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 B/L scleral hemorrhages. No oral lesions or mucositis. Lungs clear to auscultation . RRR, no murmurs. Abdomen is benign. Extremities are normal. Localized erythema at site of LUE PICC and bruising on R forearm. Otherwise skin is without suspicious lesions or rash. Rhea Hutchison is a 51 y.o. female with the following hospitalization problem list: The patient is Day 10of FLAG-Arlette + midostaurin (days 8-21) for relapsed AML Plans include: 1. 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 Relapsed s/p induction and consolidation. Admitted for FLAG-Arlette + midostaurin given on days 8-21. Now day 10 of FLAG-Arlette and day 3 of midostaurin. -Pancytopenia r/t treatment: counts remain at jacquelin. Continue standard transfusion paramete rs. 2. Non-neutropenic fevers: present at admit and continued for 3 days after. Blood cx and UA on 03/03 negative. Continues on Cefepime. 3. LUE PICC: +erythema and tenderness. US neg for DVT, concern for possible localized cellu litis. Blood cx drawn on 03/12 prior to starting vancomycin negative. -PICC pulled today d/t continued concern for possible infection. Continue vancomycin. 4. CINV: noted and occurring after AM meals. Continue scheduled compazine qAM. Andreeaan ramos ed to BID. 5. Loose stools: likely r/t treatment. Improved. C Diff on 03/14 neg. 6. HTN: likely r/t treatment. Continue amlodipine 5mg daily. Kay Duarte MD, MS [facility] [id number] [facility] Mailcode: [id number] [place], [place] [id number] [facility] DEPARTMENT: [id number]- [facility] M[facility] Place of Service:- Inpatient Date of Service: 03/14/2017 Cierra Flowers PA - 03/14/2017 1:22 PM PSTFormatting of this note may be differen t from the original. Daily NPP Note - Hematologic Malignancies/Chemo Admit [facility] Attending: Kay Duarte MD [facility] MD: Angela Goldberg MD PCP: Saurav De Los Santos NP Date of Admission: 03/02/17 Hematologic Malignancy: AML Reason for admission: Relapsed AML, admitted for w/u and treatment ID: 51yo woman with relapsed AML admitted for treatment. PMH includes COPD, depression/anxi ety, learning disability, bladder spasms and hypothyroidism. 24 Hour Events/Current Daily Plan: -AML, relapsed post induction and consolidation for favorable risk AML (+NPM1, +FLT3-TKD) a dmitted with WBC >100K. -Day 10 of reinduction with Flag-Arlette + Midostaurin (days 8-21) -Pancytopenia r/t relapsed disease: Standard transfusion protocol -Non-neutropenic fever: present on admission and continued x 3 days, possibly disease relat ed fevers vs PNA. Blood cx 03/03 negative. UA clear. CXR as below. -Continue Cefepime (03/02- ) -Added Doxycycline 03/10 d/t PICC erythema/tenderness. Erythema and tenderness worsened -- stopped doxycycline and started Vanco on 03/12. Blood cultures drawn prior to initiati on of vancomycin NGTD. -picc pulled 03/14 due to erythema and tenderness. -HTN: amlodipine 5mg daily started 03/13 -N/V: primarily in the morning. Scheduled zofran BID and compazine every morning before shelby akfast. -Diarrhea: improved today. C.diff negative 03/14. -Psychosocial: Hx MDD. Continue Cymbalta 30 mg BID. Difficulty coping with relapsed disease . Social work following. Subjective: had nausea and vomited breakfast again today, diarrhea is better. PICC site is sore. Objective: Last Vitals: BP 132/64 | Pulse 83 | Temp 36.6 C (97.9 F) | RR 16 | Ht 1.6 m (5' 3") | W t 93.7 kg (206 lb 9.1 oz) | SpO2 95% | BMI 36.59 kg/(m^2) 24 Hour Vital Min/Max: Systolic (24hrs), Av , Min:132 , Max:167 Diastolic (24hrs), Av, Min:64, Max:83 Pulse Min: 83 Max: 103 Temp Min: 36.6 C (97.9 F) Max: 37 C (98.6 F) Resp Min: 16 Max: 20 SpO2 Min: 90 % Max: 95 % Intake/Output Summary (Last 24 hours) at 03/14/17 1322 Last data filed at 03/14/17 1138 Gross per 24 hour Intake 2905 ml Output 2835 ml Net 70 ml Physical Exam: General: This is a female in NAD. Sitting upright in chair. at bedside. HEENT: PERRL. Scleral hemorrhages bilaterally. Mucosa pink and moist without erythema or exudate. Skin: No rash, lesions noted. Scattered ecchymoses on BUE & petechiae on BLE. Chest: Lungs mildly diminished to auscultation bilat. Normal work of breath on room air. CV: RRR, no murmurs. Abdomen: S/NT/ND with NABS. No HSM appreciated. Extremities: Pulses strong and equal bilaterally. No c/c/e. NeuroPsych: Alert and oriented x 3. Grossly nonfocal exam. CVC: PICC line with erythema around insertion site. Recent Labs 03/11/17230103/12/17232003/13/17 2355 NA 137 141 139 K 3.7 3.6 3.3* CL 103 107 104 BICARB 28 27 27 BUN 19 15 10 CR 0.48* 0.47* 0.34* GLU 127* 100* 103* CA 7.6* 7.8* 7.6* AST 36 26 20 ALT 47 40 35 AP 164* 145* 136* TBILI 0.7 0.7 0.6 TP 6.0* 5.5* 5.2* ALB 3.0* 2.6* 2.5* Recent Labs 03/04/17 2330 03/06/17 0227 03/06/17 2200 03/11/17 23003/12/17232003/13/17 2355 WBC 7.66 < > 3.38* < > 0.54* < > <0.10* <0.10* <0.10* RBC 2.72* < > 2.66* < > 2.21* < > 2.71* 2.56* 2.38* HB 8.5* < > 8.6* < > 7.1* < > 8.4* 7.9* 7.4* HCT 25.6* < > 25.0* < > 21.1* < > 24.1* 23.1* 21.3* PLT 5* < > 26* < > 23* < > 17* 13* 18* NEUTROPERC 10.5* -- 36.2* -- 38.7* -- -- -- -- LYMPHPERC 14.9* -- 18.4 -- 12.6* -- -- -- -- MONOPERC 7.0 -- 3.3* -- 1.8* -- -- -- -- BASOPERC 0.0 -- 0.0 -- 0.0 -- -- -- -- EOSPERC 0.0* -- 0.0* -- 0.0* -- -- -- -- < > = values in this interval not displayed. Meds: Reviewed on rounds, see current MAR for medication list SUMMARY OF PATIENT'S HOSPITALIZATION Past Medical History: Rhea Hutchison is a 50 year old woman with history of COPD, depression, bladder spasms, hypoth yroidism and AML s/p induction 7+3+dasatinib and MiDAC consolidation (Apr 2016) who present s with AML recurrence. She is here with her and reports that she has had increasing diffuse body pains for approximately the past month. She was seen in her oncology clinic on 03/01 where she was noted to have a WBC 103K, up from her previously normal 5K in November. She reports that she has had increasing fatigue, nausea, vomiting, headache and now a sore at t he base of her inferior incisors in her mouth that occasionally bleed. She has also develop ed petechiae across her abdomen. She was admitted to [facility] where CXR was consistent with pulmonary leukostasis. Per Ca reEverywhere he labs were: WBC of 103,6000 (92% blasts) hgb 13.8 Hct 41.8%, Platelet count o f 10,000, Ldh 4427 U/L (ULN 215 U/L), Bun 14 mg/dL, Scr 0.82 mg/dL. She received fluids,hydroxyurea 2g q4hrs, 3L O2 per minute and a platelet transfusion prior to transfer. She reported no fevers but was febrile upon arrival at [facility]. Review of Systems: Positive for fatigue, night sweats, intermittent non-productive cough, d ecreased appetite, constipation, rash on abdomen, bleeding in mouth Oncology History (adapted from prior heme/onc notes) Last seen at [facility] Apr 2016 for consolidation therapy but per OSH notes, she has had the fol lowing events: Jan 2016 emergent bone marrow bx: bone marrow biopsy and aspiration at [facility] on February 15, 2016 confirmed acute myelogenous leukemia, diploid, positive for FLT-3 tyrosine kinase domai n mutation (also positive for NPM1, DNMT3A, NRAS, NPM1 and TET2 mutations). Induction chemotherapy with conventional 7+3 cytarabine/idarubicin February 16, 2016 with co ntinuous daily dasatinib (Sprycel) complicated by fungal pneumonia, neutropenic fever, hidra denitis suppurativa, and Clostridium Difficile colitis. Repeat bone marrow biopsy on 2015 (day 28); First complete remission. 1. Cycle#3 MiDaC (1200 mg/m Cytarabine) consolidation at [facility] on May 28, 2016. 2. Cycle#4 MiDaC (1000 mg/m Cytarabine ) consolidation at [facility] on June 25, 2016. 3. Bone Marrow Biopsy and Aspiration July 23, 2016 at the [facility] in [place], [place] specimen # [id number] demonstrated ongoing complete remissio n. Molecular analysis was negative for any residual NPM1 mutation positive cells and negativ e for any FLT-3 mutation positive cells (sensitivity is 1 in 20,000). 4. CBC on December 25, 2016; WBC 5,000, Hgb 14.6 gm/dl, Hct 42.7, Platelet 138,000. 5. MRI of right hip on January 25, 2017 in anticipation of right hip replacement; numerou s subcentimeter round marrow repacing lesions within the visualized lower lumbar spine, pelv is, and femurs. 6. CT Chest/Abdomen/Pelvis on February 06, 2017; 3 cm left thyroid mass, no other suggestion of primary neoplasm. 7. Bone scan February 08, 2017; Normal. 8. PET/CT scan on February 27, 2017; diffuse uptake about the spleen and bone marrow. 9. CBC on March 01, 2017; WBC 103,5000 (92% blasts) Hgb 13.8, Hct 41.8%, Platelet count 1 0,000. [id number] U/L, BUN 14 mg/dL, Scr 0.82 mg/dL. 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 -Cytogenetics: PENDING -Genetrails: PENDING, preliminary report + FLT3 ITD at 90% allele frequency Treatment: -Chemotherapy regimen: received hydrea 03/02-or leukocytosis, then started Flag-Arlette + Midostaurin (Day 1= 03/05/17) -Fludarabine 30mg/m2 (60mg) Daily, Days 1-5 -Idarubicin 8mg/m2 (16mg) Daily, Days 1-3 -Cytarabine 2000mg/m2 (4200mg) Daily, Days 1-5 -Midostaurin 50mg twice daily on Days 8-21 -Chemo Day: 10 -Pt is indicated for transplant with diagnosis of relapsed AML. They may be psychosocial b arriers to stem cell transplant, however will type sibs in meantime while plan is determined . #Pancytopenia d/t relapsed disease and chemo: -See supportive care #Supportive Care: Growth factor: daily filgrastim per FLAG-Arlette protocol. Labs: Continue to check CBC with diff daily Transfusion parameters: -Transfuse PRBCs for HCT <21% if asymptomatic OR <24% if symptomatic -Transfuse PPH for platelet count <10,000 #Bleeding, likely due to decreased platelet production and not DIC: Epistaxis and bleeding from PICC site, noted 03/04. -Kept platelets >20K until 03/14 back to 10K with improvement. -Tranexamic acid TID- stopped 03/07 with improved bleeding and corrected INR. -received Vitamin K x3 days Cardiovascular: TTE completed 03/04 with EF=70%. #Sinus tachycardia with hypertension: -Likely multifactorial: tumor lysis, fever, pain, volume depletion, ? Sepsis. No evidence of cardiac ischemia -Not on rate control medications. May be needed if no improvement. #Prolonged QTc: QTc 563 on EKG, was not prolonged on previous admissions. -Will monitor electrolytes and QTc prolonging medications closely. Pulmonary: #Abnormal CXR (03/05) bilateral groundglass opacities predominantly in the perihilar regions , Follow up CT Chest (03/05) with extensive bilateral ground glass and consolidative opacitie s are new compared to 03/02/2017, possibly r/t leukostasis vs. DAH vs. infection. Lactate 03/04= 0.8. -Treat leukemia as above -Abx as above -Keep platelets >20K -Supplemental O2 PRN #COPD: Home inhalers ordered #FVO r/t MIVF: -Decreased MIVF -Diurese PRN, last given 40mg Lasix 03/11. GI: #Hemorrhoidal pain: -prn proctocort -Stool softereners Renal: #Risk for TLS, no signs of TLS at this time: -TLS labs daily. -Allopurinol daily stopped 03/08 with leukopenia . -MIVF Neuro/Psych: #Diffuse pain: Likely due to hematologic malignancy. Morphine allergy but per patient other opioids OK. - Tylenol - Oxycodone PRN #Depression/Anxiety: -Continue home duloxetine, dose reduced as above -Social work following -Lorazepam PRN for anxiety Endocrine: #Hypothyroidism: -Continue home synthroid Infectious Disease: #Non-neutropenic fevers, possibly disease related fevers. BCx 03/03 NGTD, UA clear. CXR with consolidation (see pulm section) possibly from leukostasis vs infection vs DAH. -Continue Cefepime (03/02- ) -Added Doxycycline 03/10 d/t PICC site redness. Plan had been for 5 day course, but stopped 03/12 d/t worsening erythema and tenderness. PICC pulled 03/14. -Vancomycin (03/12 - ) -F/u repeat cx, drawn prior to initiation vanco #Prophylaxis: Bacterial: As above Fungal: Posaconazole Viral: Acyclovir PCP: Pentam given 03/09/17 Fluid/Nutrition/Lytes: #Nutrition: Regular diet, No Madeline's yogurt or Kefir #Fluid: 1L NS bolus O/N for po intake <2L/day #Lytes; Continue to check chemistries daily. Replace per supportive care protocol. Disposition: Admitted for further work-up and treatment for relapsed AML. Anticipate 3-[address] [facility] admission. Cierra Flowers PA-C [facility] [facility] Mailcode: [id number] [facility] [id number] Cierra Flowers PA - 03/13/2017 4:51 PM PSTFormatting of this note may be differen t from the original. Daily NPP Note - Hematologic Malignancies/Chemo Admit [facility] Attending: Kay Duarte MD [facility] [place] MD: Angela Glodberg MD PCP: Saurav De Los Santos NP Date of Admission: 03/02/17 Hematologic Malignancy: AML Reason for admission: Relapsed AML, admitted for w/u and treatment ID: 51yo woman with relapsed AML admitted for treatment. PMH includes COPD, depression/anxi ety, learning disability, bladder spasms and hypothyroidism. 24 Hour Events/Current Daily Plan: -AML, relapsed post induction and consolidation for favorable risk AML (+NPM1, +FLT3-TKD) a dmitted with WBC >100K. -Day 9 of reinduction with Flag-Arlette + Midostaurin (days 8-21) -Pancytopenia r/t relapsed disease: Standard Hct transfusion protocol. Keep platelets >20K d/t epistaxis, scleral hemarrohage and PICC site bleeding. Received platelets today. -Non-neutropenic fever: present on admission and continued x 3 days, possibly disease relat ed fevers vs PNA. Blood cx 03/03 negative. UA clear. CXR as below. -Continue Cefepime (03/02- ) -Added Doxycycline 03/10 d/t PICC erythema/tenderness. Erythema and tenderness worsened -- stopped doxycycline and started Vanco on 03/12. Blood cultures drawn prior to initiati on of vancomycin pending. -GGO and consolidative opacities in lungs: Abnormal CXR (03/05) bilateral GGO predominantly in the perihilar regions, Follow up CT Chest (03/05) with extensive bilateral GG and consolid ative opacities new compared to 03/02/2017, possibly r/t leukostasis vs. DAH vs. infection. L actate 03/04= 0.8. -Treating leukemia as above -Abx as above -HTN: start amlodipine today. -Diarrhea; with cramping today. Send C.diff today. -Psychosocial: Hx MDD. Continue Cymbalta, dose reduced d/t bleeding (30 mg BID, home dose 9 0 mg daily). Difficulty coping with relapsed disease. Social work following. Subjective: Feeling okay. Having some diarrhea with cramping. Objective: Last Vitals: BP 147/67 | Pulse 84 | Temp 36.6 C (97.9 F) | RR 18 | Ht 1.6 m (5' 3") | W t 94.3 kg (207 lb 14.3 oz) | SpO2 95% | BMI 36.83 kg/(m^2) 24 Hour Vital Min/Max: Systolic (24hrs), Av , Min:138 , Max:171 Diastolic (24hrs), Av, Min:67, Max:86 Pulse Min: 79 Max: 93 Temp Min: 36.3 C (97.3 F) Max: 36.8 C (98.2 F) Resp Min: 15 Max: 18 SpO2 Min: 90 % Max: 95 % Intake/Output Summary (Last 24 hours) at 03/13/17 1652 Last data filed at 03/13/17 1324 Gross per 24 hour Intake 1275 ml Output 1706 ml Net -431 ml Physical Exam: General: This is a female in NAD. Sitting upright in chair. at bedside. HEENT: PERRL. Scleral hemorrhages bilaterally. Mucosa pink and moist without erythema or exudate. Skin: No rash, lesions noted. Scattered ecchymoses on BUE & petechiae on BLE. Chest: Lungs mildly diminished to auscultation bilat. Normal work of breath on room air. CV: RRR, no murmurs. Abdomen: S/NT/ND with NABS. No HSM appreciated. Extremities: Pulses strong and equal bilaterally. No c/c/e. NeuroPsych: Alert and oriented x 3. Grossly nonfocal exam. CVC: PICC line with erythema around insertion site. Tenderness to palpation improved. Recent Labs 03/10/17232903/11/17230103/12/171 NA 138 137 141 K 3.5 3.7 3.6 CL 102 103 107 BICARB 28 28 27 BUN 19 19 15 CR 0.46* 0.48* 0.47* GLU 171* 127* 100* CA 7.5* 7.6* 7.8* AST 44* 36 26 ALT 47 47 40 AP 177* 164* 145* TBILI 0.8 0.7 0.7 TP 5.9* 6.0* 5.5* ALB 2.9* 3.0* 2.6* Recent Labs 03/04/17232903/06/1722603/06/17219903/10/17232903/11/17230103/12/17 2321 WBC 7.66 < > 3.38* < > 0.54* < > <0.10* <0.10* <0.10* RBC 2.72* < > 2.66* < > 2.21* < > 2.65* 2.71* 2.56* HB 8.5* < > 8.6* < > 7.1* < > 8.3* 8.4* 7.9* HCT 25.6* < > 25.0* < > 21.1* < > 23.4* 24.1* 23.1* PLT 5* < > 26* < > 23* < > 15* 17* 13* NEUTROPERC 10.5* -- 36.2* -- 38.7* -- -- -- -- LYMPHPERC 14.9* -- 18.4 -- 12.6* -- -- -- -- MONOPERC 7.0 -- 3.3* -- 1.8* -- -- -- -- BASOPERC 0.0 -- 0.0 -- 0.0 -- -- -- -- EOSPERC 0.0* -- 0.0* -- 0.0* -- -- -- -- < > = values in this interval not displayed. Meds: Reviewed on rounds, see current MAR for medication list SUMMARY OF PATIENT'S HOSPITALIZATION Past Medical History: Rhea Hutchison is a 50 year old woman with history of COPD, depression, bladder spasms, hypoth yroidism and AML s/p induction 7+3+dasatinib and MiDAC consolidation (Apr 2016) who present s with AML recurrence. She is here with her and reports that she has had increasing diffuse body pains for approximately the past month. She was seen in her oncology clinic on 03/01 where she was noted to have a WBC 103K, up from her previously normal 5K in November. She reports that she has had increasing fatigue, nausea, vomiting, headache and now a sore at t he base of her inferior incisors in her mouth that occasionally bleed. She has also develop ed petechiae across her abdomen. She was admitted to [facility] where CXR was consistent with pulmonary leukostasis. Per Ca reEverywhere he labs were: WBC of 103,6000 (92% blasts) hgb 13.8 Hct 41.8%, Platelet count o f 10,000, Ldh 4427 U/L (ULN 215 U/L), Bun 14 mg/dL, Scr 0.82 mg/dL. She received fluids,hydroxyurea 2g q4hrs, 3L O2 per minute and a platelet transfusion prior to transfer. She reported no fevers but was febrile upon arrival at [facility]. Review of Systems: Positive for fatigue, night sweats, intermittent non-productive cough, d ecreased appetite, constipation, rash on abdomen, bleeding in mouth Oncology History (adapted from prior heme/onc notes) Last seen at [facility] Apr 2016 for consolidation therapy but per OSH notes, she has had the fol lowing events: Jan 2016 emergent bone marrow bx: bone marrow biopsy and aspiration at [facility] on February 15, 2016 confirmed acute myelogenous leukemia, diploid, positive for FLT-3 tyrosine kinase domai n mutation (also positive for NPM1, DNMT3A, NRAS, NPM1 and TET2 mutations). Induction chemotherapy with conventional 7+3 cytarabine/idarubicin February 16, 2016 with co ntinuous daily dasatinib (Sprycel) complicated by fungal pneumonia, neutropenic fever, hidra denitis suppurativa, and Clostridium Difficile colitis. Repeat bone marrow biopsy on 2015 (day 28); First complete remission. 1. Cycle#3 MiDaC (1200 mg/m Cytarabine) consolidation at [facility] on May 28, 2016. 2. Cycle#4 MiDaC (1000 mg/m Cytarabine ) consolidation at [facility] on June 25, 2016. 3. Bone Marrow Biopsy and Aspiration July 23, 2016 at the [facility] in [place], [place] specimen # [id number] demonstrated ongoing complete remissio n. Molecular analysis was negative for any residual NPM1 mutation positive cells and negativ e for any FLT-3 mutation positive cells (sensitivity is 1 in 20,000). 4. CBC on December 25, 2016; WBC 5,000, Hgb 14.6 gm/dl, Hct 42.7, Platelet 138,000. 5. MRI of right hip on January 25, 2017 in anticipation of right hip replacement; numerou s subcentimeter round marrow repacing lesions within the visualized lower lumbar spine, pelv is, and femurs. 6. CT Chest/Abdomen/Pelvis on February 06, 2017; 3 cm left thyroid mass, no other suggestion of primary neoplasm. 7. Bone scan February 08, 2017; Normal. 8. PET/CT scan on February 27, 2017; diffuse uptake about the spleen and bone marrow. 9. CBC on March 01, 2017; WBC 103,5000 (92% blasts) Hgb 13.8, Hct 41.8%, Platelet count 1 0,000. UTX3123 U/L, BUN 14 mg/dL, Scr 0.82 mg/dL. 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 -Cytogenetics: PENDING -Genetrails: PENDING, preliminary report + FLT3 ITD at 90% allele frequency Treatment: -Chemotherapy regimen: received hydrea 03/02-7for leukocytosis, then started Flag-Arlette + Midostaurin (Day 1= 03/05/17) -Fludarabine 30mg/m2 (60mg) Daily, Days 1-5 -Idarubicin 8mg/m2 (16mg) Daily, Days 1-3 -Cytarabine 2000mg/m2 (4200mg) Daily, Days 1-5 -Midostaurin 50mg twice daily on Days 8-21 -Chemo Day: 9 -Pt is indicated for transplant with diagnosis of relapsed AML. They may be psychosocial b arriers to stem cell transplant, however will type sibs in meantime while plan is to be dete rmined. #Pancytopenia d/t relapsed disease and chemo: -See supportive care #Supportive Care: Growth factor: daily filgrastim per FLAG-Arlette protocol. Labs: Continue to check CBC with diff daily Transfusion parameters: -Transfuse PRBCs for HCT <21% if asymptomatic OR <24% if symptomatic -Transfuse PPH for platelet count <20,000 d/t epistaxis and CVC site bleeding #Bleeding, likely due to decreased platelet production and not DIC: Epistaxis and bleeding from PICC site, noted 03/04. -Keep platelets >20K -Tranexamic acid TID- stopped 03/07 with improved bleeding and corrected INR. -Vitamin K x3 days -Monitor Coags daily Cardiovascular: TTE completed 03/04 with EF=70%. #Sinus tachycardia with hypertension: -Likely multifactorial: tumor lysis, fever, pain, volume depletion, ? Sepsis. No evidence of cardiac ischemia -Not on rate control medications. May be needed if no improvement. #Prolonged QTc: QTc 563 on EKG, was not prolonged on previous admissions. -Will monitor electrolytes and QTc prolonging medications closely. Pulmonary: #Abnormal CXR (03/05) bilateral groundglass opacities predominantly in the perihilar regions , Follow up CT Chest (03/05) with extensive bilateral ground glass and consolidative opacitie s are new compared to 03/02/2017, possibly r/t leukostasis vs. DAH vs. infection. Lactate 03/04= 0.8. -Treat leukemia as above -Abx as above -Keep platelets >20K -Supplemental O2 PRN #COPD: Home inhalers ordered #FVO r/t MIVF: -Decreased MIVF -Diurese PRN, last given 40mg Lasix 03/11. GI: #Hemorrhoidal pain: -prn proctocort -Stool softereners Renal: #Risk for TLS, no signs of TLS at this time: -TLS labs daily. -Allopurinol daily stopped 03/08 with leukopenia . -MIVF Neuro/Psych: #Diffuse pain: Likely due to hematologic malignancy. Morphine allergy but per patient other opioids OK. - Tylenol - Oxycodone PRN #Depression/Anxiety: -Continue home duloxetine, dose reduced as above -Social work following -Lorazepam PRN for anxiety Endocrine: #Hypothyroidism: -Continue home synthroid Infectious Disease: #Non-neutropenic fevers, possibly disease related fevers. BCx 03/03 NGTD, UA clear. CXR with consolidation (see pulm section) possibly from leukostasis vs infection vs DAH. -Continue Cefepime (03/02- ) -Added Doxycycline 03/10 d/t PICC site redness. Plan had been for 5 day course, but stopped 03/12 d/t worsening erythema and tenderness -Vancomycin (03/12 - ) -F/u repeat cx, drawn prior to initiation vanco #Prophylaxis: Bacterial: As above Fungal: Posaconazole Viral: Acyclovir PCP: Pentam given 03/09/17 Fluid/Nutrition/Lytes: #Nutrition: Regular diet, No Madeline's yogurt or Kefir #Fluid: 1L NS bolus O/N for po intake <2L/day #Lytes; Continue to check chemistries daily. Replace per supportive care protocol. Disposition: Admitted for further work-up and treatment for relapsed AML. Anticipate 3-[address] [facility] admission. LAURA LaiC [facility] [address] [facility] Mailcode: [id number] [facility] [id number] Kay Duarte MD - 03/13/2017 12:12 PM PSTFormatting of this note may be different from jl baker original. 03/13/2017 Hematologic Malignancies Attending Inpatient Progress Note: I was present and rounded today in conjunction with the PA, Cierra Flowers. I examined the patient, reviewed the relevant history and studies, and formulated a plan. Please see the PA documentation from today for details. It is noted that patient reports: Feeling weaker today. Vomited after eating breakfast this morning and having loose stools. PICC pain slightly improved. Denies nausea/vomiting/abdomi nal pain/diarrhea/constipation. Vitals: Systolic (24hrs), Av , Min:138 , Max:171 Diastolic (24hrs), Av, Min:72, Max:90 Pulse Av.5 Min: 79 Max: 93 Temp Av.6 C (97.8 F) Min: 36.3 C (97.3 F) Max: 36.8 C (98.2 F) Resp Av.4 Min: 15 Max: 18 SpO2 Av.3 % Min: 90 % Max: 96 % Intake/Output Summary (Last 24 hours) at 03/13/17 1212 Last data filed at 03/13/17 1016 Gross per 24 hour Intake 1610 ml Output 1556 ml Net 54 ml Current medications: Current Facility-Administered Medications Medication Dose Route Frequency Last Rate acyclovir (ZOVIRAX) tablet 800 mg 800 mg oral DAILY amLODIPine (NORVASC) tablet 5 mg 5 mg oral DAILY ceFEPIme (MAXIPIME) injection 2 g 2 g intravenous Q8H DULoxetine (CYMBALTA) capsule 30 mg 30 mg oral BID filgrastim-sndz (ZARXIO) injection 300 mcg 300 mcg subcutaneous QPM AT 1700 hydrocortisone (PROCTOCORT) 1 % rectal cream rectal TID levothyroxine tablet 50 mcg 50 mcg oral DAILY midostaurin (RYDAPT) cap 50 mg 50 mg oral QLUNCH omeprazole (PRILOSEC) capsule 20 mg 20 mg oral BEFORE BREAKFAST ondansetron (ZOFRAN) tablet 4 mg 4 mg oral Q24H oxybutynin CR (DITROPAN-XL) tablet 15 mg 15 mg oral DAILY pentamidine (PENTAM) IV 300 mg 300 mg intravenous Q4W Stopped (03/09/17 1230) posaconazole DR (NOXAFIL) tablet 300 mg 300 mg oral DAILY prednisoLONE acetate (PRED FORTE) 1 % ophthalmic drops, suspension 2 drop 2 drop Both Eyes Q6H [START ON 03/14/2017] prochlorperazine (COMPAZINE) tablet 5-10 mg 5-10 mg oral QAM tiotropium (SPIRIVA) inhalation 18 mcg 18 mcg inhalation DAILY vancomycin (VANCOCIN) IV 1,500 mg 15 mg/kg intravenous Q12H Stopped (03/13/17 0430) Allergies: Allergies Allergen Reactions Morphine Rash and Facial Swelling Rash and facial swelling Opioids - Morphine Analogues Confusion Laboratory or other studies: Recent Labs 03/10/170 03/11/172 03/12/17 2321 WBC <0.10* <0.10* <0.10* HB 8.3* 8.4* 7.9* HCT 23.4* 24.1* 23.1* PLT 15* 17* 13* Recent Labs 03/10/17 2330 03/11/17 2302 03/12/17 2321 NA 138 137 141 K 3.5 3.7 3.6 CL 102 103 107 BICARB 28 28 27 BUN 19 19 15 CR 0.46* 0.48* 0.47* CA 7.5* 7.6* 7.8* MG 2.2 2.2 2.4 PO4 2.2* 1.7* 2.5 AST 44* 36 26 ALT 47 47 40 TBILI 0.8 0.7 0.7 AP 177* 164* 145* ALB 2.9* 3.0* 2.6* TP 5.9* 6.0* 5.5* URINE CULTURE [facility] (no units) Date Value 03/05/2016 No growth (<1000 cfu/mL) after 24 hours CULTURE RESULT (no units) Date Value 03/04/2017 Final Report:No Bacteria or Yeast isolated at 5 days. 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 B/L scleral hemorrhages. Erythema without oral lesions or mucositis. Chest clear t o auscultation. RRR, no murmurs. Abdomen is benign. Extremities are normal. Localized erythe ma and tenderness at site of LUE PICC - improving. Otherwise skin is without suspicious lesi ons or rash. Rhea Hutchison is a 51 y.o. female with the following hospitalization problem list: The patient is Day 9 of FLAG-Arlette + midostaurin (days 8-21) for relapsed AML Plans include: 1. 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 Relapsed s/p induction and consolidation. Admitted for FLAG-Arlette + midostaurin given on days 8-21. Now day 9 of FLAG-Arlette and day 2 of midostaurin. -Pancytopenia r/t treatment: counts are at jacquelin. Continue standard transfusion parameters. 2. Non-neutropenic fevers: present at admit and continued for 3 days after. Blood cx and UA on 03/03 negative. Continues on Cefepime. 3. LUE PICC: +erythema and tenderness. US neg for DVT, now with concern for possible locali zed cellulitis. Improved after starting vanco. Continue vancomycin. Continue Cefepime as abo ve and prophylactic abx. 4. CINV: noted and occurring after AM meals. Will schedule Compazine qAM. Continue Zofran d aily. 5. Loose stools: likely r/t treatment. Reports cramping as well. Plan for C Diff testing to day. 6. HTN: likely r/t treatment. Denies previously having been on high BP meds. Start amlodipi ne 5mg daily. Kay Duarte MD, MS [facility] [id number] [facility] Mailcode: [id number] [place] [address] [facility] DEPARTMENT: [id number]- [facility] [place] [facility]AC[facility] M[facility] Place of Service:- Inpatient Date of Service: 03/13/2017 Katie Combs, VESTA - 03/12/2017 5:51 PM PSTFormatting of this note may be different fro m the original. Daily NPP Note - Hematologic Malignancies/Chemo Admit [facility] Attending: aKy Duarte MD [facility] [place] MD: Angela Goldberg MD PCP: Saurav De Los Santos NP Date of Admission: 03/02/17 Hematologic Malignancy: AML Reason for admission: Relapsed AML, admitted for w/u and treatment ID: 51yo woman with relapsed AML admitted for treatment. PMH includes COPD, depression/anxi ety, learning disability, bladder spasms and hypothyroidism. 24 Hour Events/Current Daily Plan: -AML, relapsed post induction and consolidation for favorable risk AML (+NPM1, +FLT3-TKD) a dmitted with WBC >100K. -Day 8 of reinduction with Flag-Arlette + Midostaurin (days 8-21) -Pancytopenia r/t relapsed disease: Standard Hct transfusion protocol. Keep platelets >20K d/t epistaxis, scleral hemarrohage and PICC site bleeding. Received platelets today. -Non-neutropenic fever: present on admission and continued x 3 days, possibly disease relat ed fevers vs PNA. Blood cx 03/03 negative. UA clear. CXR as below. -Continue Cefepime (03/02- ) -Added Doxycycline 03/10 d/t PICC erythema/tenderness. Erythema and tenderness worsening t mayra -- stop doxycycline and start Vanco. Blood cultures drawn prior to initiation of vancom ycin. -GGO and consolidative opacities in lungs: Abnormal CXR (03/05) bilateral GGO predominantly in the perihilar regions, Follow up CT Chest (03/05) with extensive bilateral GG and consolid ative opacities new compared to 03/02/2017, possibly r/t leukostasis vs. DAH vs. infection. L actate 03/04= 0.8. -Treating leukemia as above -Abx as above -HTN: Likely 2/2 FVO, diurese prn, last given lasix 40mg IV x 1 on 03/11. Repeat PRN as ind icated. -Psychosocial: Hx MDD. Continue Cymbalta, dose reduced d/t bleeding (30 mg BID, home dose 9 0 mg daily). Difficulty coping with relapsed disease. Social work following. Subjective: Overall, feeling well today, more energy and walking in the halls. However, inc reased tenderness to PICC site. Objective: Last Vitals: BP 150/77 | Pulse 84 | Temp 36.5 C (97.7 F) | RR 18 | Ht 1.6 m (5' 3") | W t 94.3 kg (207 lb 14.3 oz) | SpO2 93% | BMI 36.83 kg/(m^2) 24 Hour Vital Min/Max: Systolic (24hrs), Av , Min:136 , Max:165 Diastolic (24hrs), Av, Min:69, Max:90 Pulse Min: 77 Max: 88 Temp Min: 36.3 C (97.3 F) Max: 36.7 C (98.1 F) Resp Min: 16 Max: 18 SpO2 Min: 93 % Max: 96 % Intake/Output Summary (Last 24 hours) at 03/12/17 1751 Last data filed at 03/12/17 1520 Gross per 24 hour Intake 2533 ml Output 1700 ml Net 833 ml Physical Exam: General: This is a female in NAD. Sitting upright in chair. at bedside. HEENT: PERRL. Scleral hemorrhages bilaterally. Mucosa pink and moist without erythema or exudate. Skin: No rash, lesions noted. Scattered ecchymoses on BUE & petechiae on BLE. Chest: Lungs mildly diminished to auscultation bilat. Normal work of breath on room air. CV: RRR, no murmurs. Abdomen: S/NT/ND with NABS. No HSM appreciated. Extremities: Pulses strong and equal bilaterally. No c/c/e. NeuroPsych: Alert and oriented x 3. Grossly nonfocal exam. CVC: PICC line with erythema around insertion site. Tenderness to palpation improved. Recent Labs 03/09/17232903/10/17232903/11/17 2302 NA 140 138 137 K 4.3 3.5 3.7 CL 105 102 103 BICARB 25 28 28 BUN 19 19 19 CR 0.44* 0.46* 0.48* GLU 149* 171* 127* CA 7.8* 7.5* 7.6* AST 43* 44* 36 ALT 45 47 47 AP 184* 177* 164* TBILI 0.9 0.8 0.7 TP 5.8* 5.9* 6.0* ALB 2.9* 2.9* 3.0* Recent Labs 03/04/17 23303/06/177 03/06/17219903/09/17232903/10/17232903/11/17 2302 WBC 7.66 < > 3.38* < > 0.54* < > <0.10* <0.10* <0.10* RBC 2.72* < > 2.66* < > 2.21* < > 2.25* 2.65* 2.71* HB 8.5* < > 8.6* < > 7.1* < > 7.1* 8.3* 8.4* HCT 25.6* < > 25.0* < > 21.1* < > 20.6* 23.4* 24.1* PLT 5* < > 26* < > 23* < > 16* 15* 17* NEUTROPERC 10.5* -- 36.2* -- 38.7* -- -- -- -- LYMPHPERC 14.9* -- 18.4 -- 12.6* -- -- -- -- MONOPERC 7.0 -- 3.3* -- 1.8* -- -- -- -- BASOPERC 0.0 -- 0.0 -- 0.0 -- -- -- -- EOSPERC 0.0* -- 0.0* -- 0.0* -- -- -- -- < > = values in this interval not displayed. Meds: Reviewed on rounds, see current MAR for medication list SUMMARY OF PATIENT'S HOSPITALIZATION Past Medical History: Rhea Hutchison is a 50 year old woman with history of COPD, depression, bladder spasms, hypoth yroidism and AML s/p induction 7+3+dasatinib and MiDAC consolidation (Apr 2016) who present s with AML recurrence. She is here with her and reports that she has had increasing diffuse body pains for approximately the past month. She was seen in her oncology clinic on 03/01 where she was noted to have a WBC 103K, up from her previously normal 5K in November. She reports that she has had increasing fatigue, nausea, vomiting, headache and now a sore at t he base of her inferior incisors in her mouth that occasionally bleed. She has also develop ed petechiae across her abdomen. She was admitted to [facility] where CXR was consistent with pulmonary leukostasis. Per Ca reEverywhere he labs were: WBC of 103,6000 (92% blasts) hgb 13.8 Hct 41.8%, Platelet count o f 10,000, Ldh 4427 U/L (ULN 215 U/L), Bun 14 mg/dL, Scr 0.82 mg/dL. She received fluids,hydroxyurea 2g q4hrs, 3L O2 per minute and a platelet transfusion prior to transfer. She reported no fevers but was febrile upon arrival at [facility]. Review of Systems: Positive for fatigue, night sweats, intermittent non-productive cough, d ecreased appetite, constipation, rash on abdomen, bleeding in mouth Oncology History (adapted from prior heme/onc notes) Last seen at [facility] Apr 2016 for consolidation therapy but per OSH notes, she has had the fol lowing events: Jan 2016 emergent bone marrow bx: bone marrow biopsy and aspiration at [facility] on February 15, 2016 confirmed acute myelogenous leukemia, diploid, positive for FLT-3 tyrosine kinase domai n mutation (also positive for NPM1, DNMT3A, NRAS, NPM1 and TET2 mutations). Induction chemotherapy with conventional 7+3 cytarabine/idarubicin February 16, 2016 with co ntinuous daily dasatinib (Sprycel) complicated by fungal pneumonia, neutropenic fever, hidra denitis suppurativa, and Clostridium Difficile colitis. Repeat bone marrow biopsy on 2015 (day 28); First complete remission. 1. Cycle#3 MiDaC (1200 mg/m Cytarabine) consolidation at [facility] on May 28, 2016. 2. Cycle#4 MiDaC (1000 mg/m Cytarabine ) consolidation at [facility] on June 25, 2016. 3. Bone Marrow Biopsy and Aspiration July 23, 2016 at the [facility] in [place], [place] specimen # [id number] demonstrated ongoing complete remissio n. Molecular analysis was negative for any residual NPM1 mutation positive cells and negativ e for any FLT-3 mutation positive cells (sensitivity is 1 in 20,000). 4. CBC on December 25, 2016; WBC 5,000, Hgb 14.6 gm/dl, Hct 42.7, Platelet 138,000. 5. MRI of right hip on January 25, 2017 in anticipation of right hip replacement; numerou s subcentimeter round marrow repacing lesions within the visualized lower lumbar spine, pelv is, and femurs. 6. CT Chest/Abdomen/Pelvis on February 06, 2017; 3 cm left thyroid mass, no other suggestion of primary neoplasm. 7. Bone scan February 08, 2017; Normal. 8. PET/CT scan on February 27, 2017; diffuse uptake about the spleen and bone marrow. 9. CBC on March 01, 2017; WBC 103,5000 (92% blasts) Hgb 13.8, Hct 41.8%, Platelet count 1 0,000. [id number] U/L, BUN 14 mg/dL, Scr 0.82 mg/dL. 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 -Cytogenetics: PENDING -Genetrails: PENDING, preliminary report + FLT3 ITD at 90% allele frequency Treatment: -Chemotherapy regimen: received hydrea 03/02-or leukocytosis, then started Flag-Arlette + Midostaurin (Day 1= 03/05/17) -Fludarabine 30mg/m2 (60mg) Daily, Days 1-5 -Idarubicin 8mg/m2 (16mg) Daily, Days 1-3 -Cytarabine 2000mg/m2 (4200mg) Daily, Days 1-5 -Midostaurin 50mg twice daily on Days 8-21 -Chemo Day: 8 -Pt is indicated for transplant with diagnosis of relapsed AML. They may be psychosocial b arriers to stem cell transplant, however will type sibs in meantime while plan is to be dete rmined. #Pancytopenia d/t relapsed disease and chemo: -See supportive care #Supportive Care: Growth factor: daily filgrastim per FLAG-Arlette protocol. Labs: Continue to check CBC with diff daily Transfusion parameters: -Transfuse PRBCs for HCT <21% if asymptomatic OR <24% if symptomatic -Transfuse PPH for platelet count <20,000 d/t epistaxis and CVC site bleeding #Bleeding, likely due to decreased platelet production and not DIC: Epistaxis and bleeding from PICC site, noted 03/04. -Keep platelets >20K -Tranexamic acid TID- stopped 03/07 with improved bleeding and corrected INR. -Vitamin K x3 days -Monitor Coags daily Cardiovascular: TTE completed 03/04 with EF=70%. #Sinus tachycardia with hypertension: -Likely multifactorial: tumor lysis, fever, pain, volume depletion, ? Sepsis. No evidence of cardiac ischemia -Not on rate control medications. May be needed if no improvement. #Prolonged QTc: QTc 563 on EKG, was not prolonged on previous admissions. -Will monitor electrolytes and QTc prolonging medications closely. Pulmonary: #Abnormal CXR (03/05) bilateral groundglass opacities predominantly in the perihilar regions , Follow up CT Chest (03/05) with extensive bilateral ground glass and consolidative opacitie s are new compared to 03/02/2017, possibly r/t leukostasis vs. DAH vs. infection. Lactate 03/04= 0.8. -Treat leukemia as above -Abx as above -Keep platelets >20K -Supplemental O2 PRN #COPD: Home inhalers ordered #FVO r/t MIVF: -Decreased MIVF -Diurese PRN, last given 40mg Lasix 03/11. GI: #Hemorrhoidal pain: -prn proctocort -Stool softereners Renal: #Risk for TLS, no signs of TLS at this time: -TLS labs daily. -Allopurinol daily stopped 03/08 with leukopenia . -MIVF Neuro/Psych: #Diffuse pain: Likely due to hematologic malignancy. Morphine allergy but per patient other opioids OK. - Tylenol - Oxycodone PRN #Depression/Anxiety: -Continue home duloxetine, dose reduced as above -Social work following -Lorazepam PRN for anxiety Endocrine: #Hypothyroidism: -Continue home synthroid Infectious Disease: #Non-neutropenic fevers, possibly disease related fevers. BCx 03/03 NGTD, UA clear. CXR with consolidation (see pulm section) possibly from leukostasis vs infection vs DAH. -Continue Cefepime (03/02- ) -Added Doxycycline 03/10 d/t PICC site redness. Plan had been for 5 day course, but stopped 03/12 d/t worsening erythema and tenderness -Vancomycin (03/12 - ) -F/u repeat cx, drawn prior to initiation vanco #Prophylaxis: Bacterial: As above Fungal: Posaconazole Viral: Acyclovir PCP: Pentam given 03/09/17 Fluid/Nutrition/Lytes: #Nutrition: Regular diet, No Madeline's yogurt or Kefir #Fluid: 1L NS bolus O/N for po intake <2L/day #Lytes; Continue to check chemistries daily. Replace per supportive care protocol. Disposition: Admitted for further work-up and treatment for relapsed AML. Anticipate 3-[address] [facility] admission. VESTA Delgado [facility] [address] [facility] Mailcode: [id number] [place] [address] Kay Duarte MD - 03/12/2017 1:45 PM PSTFormatting of this note may be different from jl baker original. 03/12/2017 Hematologic Malignancies Attending Inpatient Progress Note: I was present and rounded today in conjunction with the ANP, Katie Combs. I examined the patient, reviewed the relevant history and studies, and formulated a plan. Please see the ANP documentation from today for details. It is noted that patient reports: Vomited this morning after eating and is having increased soft stools. Left PICC continues to be painful. Is enjoying walking the halls. Denies light headedness/dizziness/diarrhea/constipation. Vitals: Systolic (24hrs), Av , Min:136 , Max:165 Diastolic (24hrs), Av, Min:69, Max:84 Pulse Av.9 Min: 76 Max: 88 Temp Av.5 C (97.7 F) Min: 36.4 C (97.5 F) Max: 36.7 C (98.1 F) Resp Av.7 Min: 16 Max: 18 SpO2 Av.8 % Min: 94 % Max: 96 % Intake/Output Summary (Last 24 hours) at 03/12/17 1345 Last data filed at 03/12/17 1210 Gross per 24 hour Intake 1868 ml Output 1900 ml Net -32 ml Current medications: Current Facility-Administered Medications Medication Dose Route Frequency Last Rate acyclovir (ZOVIRAX) tablet 800 mg 800 mg oral DAILY ceFEPIme (MAXIPIME) injection 2 g 2 g intravenous Q8H DULoxetine (CYMBALTA) capsule 30 mg 30 mg oral BID filgrastim-sndz (ZARXIO) injection 300 mcg 300 mcg subcutaneous QPM AT 1700 hydrocortisone (PROCTOCORT) 1 % rectal cream rectal TID levothyroxine tablet 50 mcg 50 mcg oral DAILY midostaurin (RYDAPT) cap 50 mg 50 mg oral QLUNCH omeprazole (PRILOSEC) capsule 20 mg 20 mg oral BEFORE BREAKFAST ondansetron (ZOFRAN) tablet 4 mg 4 mg oral Q24H oxybutynin CR (DITROPAN-XL) tablet 15 mg 15 mg oral DAILY pentamidine (PENTAM) IV 300 mg 300 mg intravenous Q4W Stopped (03/09/17 1230) posaconazole DR (NOXAFIL) tablet 300 mg 300 mg oral DAILY prednisoLONE acetate (PRED FORTE) 1 % ophthalmic drops, suspension 2 drop 2 drop Both Eyes Q6H tiotropium (SPIRIVA) inhalation 18 mcg 18 mcg inhalation DAILY vancomycin (VANCOCIN) IV 1,500 mg 15 mg/kg intravenous Q12H Allergies: Allergies Allergen Reactions Morphine Rash and Facial Swelling Rash and facial swelling Opioids - Morphine Analogues Confusion Laboratory or other studies: Recent Labs 03/09/17 23303/10/17 23303/11/17 2302 WBC <0.10* <0.10* <0.10* HB 7.1* 8.3* 8.4* HCT 20.6* 23.4* 24.1* PLT 16* 15* 17* Recent Labs 03/09/17 23303/10/17 2330 03/11/17 2302 NA 140 138 137 K 4.3 3.5 3.7 CL 105 102 103 BICARB 25 28 28 BUN 19 19 19 CR 0.44* 0.46* 0.48* CA 7.8* 7.5* 7.6* MG 2.3 2.2 2.2 PO4 2.8 2.2* 1.7* AST 43* 44* 36 ALT 45 47 47 TBILI 0.9 0.8 0.7 AP 184* 177* 164* ALB 2.9* 2.9* 3.0* TP 5.8* 5.9* 6.0* URINE CULTURE [facility] (no units) Date Value 03/05/2016 No growth (<1000 cfu/mL) after 24 hours CULTURE RESULT (no units) Date Value 03/04/2017 Final Report:No Bacteria or Yeast isolated at 5 days. Lab Results Component Value Date APTT 24.5 (L) 03/11/2017 FIBRINOGEN 258 03/11/2017 The physical exam is notable for: Alert and oriented x 3 - sitting in chair. B/L scleral he morrhages. No oral lesions or mucositis. Chest clear to auscultation. RRR, no murmurs. Abdom en is benign. Extremities are normal. Localized erythema and tenderness at site of LUE PICC - worse today. Otherwise, skin is without suspicious lesions. Rhea Hutchison is a 51 y.o. female with the following hospitalization problem list: The patient is Day 8 of FLAG-Arlette + midostaurin (days 8-21) for relapsed AML Plans include: 1. 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 Relapsed s/p induction and consolidation. Admitted for FLAG-Arlette + midostaurin given on days 8-21. Will st art PO midostaurin today. -Pancytopenia r/t treatment: counts are at jacquelin. Continue standard transfusion parameters. -Patient is a transplant candidate and will consider HLA-typing. 2. Non-neutropenic fevers: present at admit and continued for 3 days after. Blood cx and UA on 03/03 negative. Continues on Cefepime. 3. LUE PICC: +erythema and tenderness, worse today. US neg for DVT, now with concern for po ssible localized cellulitis. Remains on Cefepime + abx prophylaxis. Discontinue doxycycline. Plan for repeat blood cx and consider staringt IV vancomycin today. 4. CINV: noted. Continue prn antiemetics. -schedule around meals. Kay Duarte MD, MS [facility] [address] [facility] Mailcode: [id number] [place] [address] [facility] DEPARTMENT: [phone]- [facility] FACULTY [facility] Place of Service:- Inpatient Date of Service: 03/12/2017 Oralia Perry RN - 03/12/2017 1:16 PM PSTVAT: 1300: Was Called to assess Left Ar m Double lumen Power PICC Line. Hematoma on the PICC site noted . Java warm to touch and lukasz lama complained of soreness on the site. Advised to elevate left arm above heart with two p illows when laying down. Apply hot and cold compress alternatingly. Patient verbalized unde rstanding and bedside also at the bedside and made a comment that team is aware of it. Oralia Perry RN,BSN,VATBoyle, Madeline Castaneda, COURT INTERPRETER - 03/11/2017 4:21 PM PSTName:Rhea Hutchison Date: td : 1965 Problem Identified: Social security Met with Rhea and her today and discussed the above problems. Rhea was due to have a hearing for an appeal on her Social Security Disability this Saturday. 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 Contacted Ms. Rodriguez and left her a message inquiring as to the specifics needed for this letter. Plan/Intervention: Coordination of resources Social work will plan to be available for support and assistance as needed. Madelineadilene Castillo, COURT INTERPRETER, [facility] [address] [facility] Mailcode: [address] [place], [place] [phone] Kay Duarte MD - 03/11/2017 1:47 PM PSTFormatting of this note may be different from th e original. 03/11/2017 Hematologic Malignancies Attending Inpatient Progress Note: I was present and rounded today in conjunction with the ANP, Katie Combs. I examined the patient, reviewed the relevant history and studies, and formulated a plan. Please see the ANP documentation from today for details. It is noted that patient reports: Slept very well last night and feels she is in better spi rits. Pain at site of PICC has not worsened. Denies nausea/vomiting/diarrhea/constipation. Vitals: Systolic (24hrs), Av , Min:134 , Max:149 Diastolic (24hrs), Av, Min:67, Max:106 Pulse Av.9 Min: 76 Max: 89 Temp Av.5 C (97.7 F) Min: 36.4 C (97.5 F) Max: 36.6 C (97.9 F) Resp Av Min: 18 Max: 18 SpO2 Av.4 % Min: 93 % Max: 97 % Intake/Output Summary (Last 24 hours) at 03/11/17 1347 Last data filed at 03/11/17 1219 Gross per 24 hour Intake 2445 ml Output 3000 ml Net -555 ml Current medications: Current Facility-Administered Medications Medication Dose Route Frequency Last Rate acyclovir (ZOVIRAX) tablet 800 mg 800 mg oral DAILY ceFEPIme (MAXIPIME) injection 2 g 2 g intravenous Q8H doxycycline monohydrate (MONODOX) capsule 100 mg 100 mg oral BID DULoxetine (CYMBALTA) capsule 30 mg 30 mg oral BID filgrastim-sndz (ZARXIO) injection 300 mcg 300 mcg subcutaneous QPM AT 1700 hydrocortisone (PROCTOCORT) 1 % rectal cream rectal TID levothyroxine tablet 50 mcg 50 mcg oral DAILY omeprazole (PRILOSEC) capsule 20 mg 20 mg oral BEFORE BREAKFAST oxybutynin CR (DITROPAN-XL) tablet 15 mg 15 mg oral DAILY pentamidine (PENTAM) IV 300 mg 300 mg intravenous Q4W Stopped (03/09/17 1230) posaconazole DR (NOXAFIL) tablet 300 mg 300 mg oral DAILY prednisoLONE acetate (PRED FORTE) 1 % ophthalmic drops, suspension 2 drop 2 drop Both Eyes Q6H senna-docusate (SENOKOT S) 8.6-50 mg 1-2 tablet 1-2 tablet oral BID tiotropium (SPIRIVA) inhalation 18 mcg 18 mcg inhalation DAILY Allergies: Allergies Allergen Reactions Morphine Rash and Facial Swelling Rash and facial swelling Opioids - Morphine Analogues Confusion Laboratory or other studies: Recent Labs 03/08/17235503/09/17232903/10/172329 WBC <0.10* <0.10* <0.10* HB 7.6* 7.1* 8.3* HCT 21.6* 20.6* 23.4* PLT 20* 16* 15* Recent Labs 03/08/17235503/09/17232903/10/17 233 NA 141 140 138 K 4.1 4.3 3.5 CL 106 105 102 BICARB 26 25 28 BUN 21* 19 19 CR 0.43* 0.44* 0.46* CA 7.8* 7.8* 7.5* MG 2.4 2.3 2.2 PO4 2.8 2.8 2.2* AST 51* 43* 44* ALT 47 45 47 TBILI 1.0 0.9 0.8 AP 207* 184* 177* ALB 2.8* 2.9* 2.9* TP 5.9* 5.8* 5.9* URINE CULTURE [facility] (no units) Date Value 03/05/2016 No growth (<1000 cfu/mL) after 24 hours CULTURE RESULT (no units) Date Value 03/04/2017 Final Report:No Bacteria or Yeast isolated at 5 days. Lab Results Component Value Date APTT 25.6 (L) 03/10/2017 FIBRINOGEN 241 03/10/2017 The physical exam is notable for: Alert and oriented x 3 - sitting in chair. B/L scleral he morrhages. No oral lesions or mucositis. Chest clear to auscultation. RRR, no murmurs. Abdom en is benign. Mild B/L LE edema. Localized erythema and tenderness at site of LUE PICC. Othe rwise, skin is without suspicious lesions. Rhea Hutchison is a 51 y.o. female with the following hospitalization problem list: The patient is Day 7 of FLAG-Arlette + midostaurin (days 8-21) for relapsed AML Plans include: 1. 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 Relapsed s/p induction and consolidation. Admitted for FLAG-Arlette + midostaurin given on days 8-21. -Pancytopenia r/t treatment: counts are at jacquelin. Continue standard transfusion parameters. -Patient is a transplant candidate and will consider HLA-typing. 2. Non-neutropenic fevers: present at admit and continued for 3 days after. Blood cx and UA on 03/03 negative. Continues on Cefepime. 3. LUE PICC: +erythema and tenderness. US neg for DVT, now with concern for possible locali zed cellulitis. Added doxycycline 100 mg BID x 5 days (03/10- ). Remains on Cefepime + abx p rophylaxis. Will consider adding vancomycin if worsens. 4: HTN: likely secondary to FVO. Continue Lasix prn. Kay Duarte MD, MS [facility] [address] [facility] Mailcode: [address] [place] [address] [facility] DEPARTMENT: [phone]- [facility] Place of Service:- Inpatient Date of Service: 03/11/2017 Katie Combs, ANP - 03/11/2017 1:15 PM PSTFormatting of this note may be different fro m the original. Daily NPP Note - Hematologic Malignancies/Chemo Admit [facility] Attending: Kay Duarte MD [facility] MD: Angela Goldberg MD PCP: Saurav De Los Santos NP Date of Admission: 03/02/17 Hematologic Malignancy: AML Reason for admission: Relapsed AML, admitted for w/u and treatment ID: 51yo woman with relapsed AML admitted for treatment. PMH includes COPD, depression/anxi ety, learning disability, bladder spasms and hypothyroidism. 24 Hour Events/Current Daily Plan: -AML, relapsed post induction and consolidation for favorable risk AML (+NPM1, +FLT3-TKD) a dmitted with WBC >100K. -Day 7 of reinduction with Flag-Arlette + Midostaurin (days 8-21) -Pancytopenia r/t relapsed disease: Standard Hct transfusion protocol. Keep platelets >20K d/t epistaxis, scleral hemarrohage and PICC site bleeding. Received platelets today. -Non-neutropenic fever: present on admission and continued x 3 days, possibly disease relat ed fevers vs PNA. Blood cx 03/03 negative. UA clear. CXR as below. -Continue Cefepime (03/02- ) -Added Doxycycline 100 mg PO BID x 5 days (03/10- ) d/t PICC site erythema/tenderness. Er ythema stable, tenderness improved. If worsening, consider adding Vanco. -GGO and consolidative opacities in lungs: Abnormal CXR (03/05) bilateral GGO predominantly in the perihilar regions, Follow up CT Chest (03/05) with extensive bilateral GG and consolid ative opacities new compared to 03/02/2017, possibly r/t leukostasis vs. DAH vs. infection. L actate 03/04= 0.8. -Treating leukemia as above -Abx as above -HTN: Likely 2/2 FVO, diurese prn, last given lasix 40mg IV x 1 on 03/11. Repeat PRN as ind icated. -Psychosocial: Hx MDD. Continue Cymbalta, dose reduced d/t bleeding (30 mg BID, home dose 9 0 mg daily). Difficulty coping with relapsed disease. Social work following. Subjective: Feels well today after getting good sleep last night. Tenderness to PICC site has improved. Objective: Last Vitals: BP 149/89 | Pulse 85 | Temp 36.4 C (97.52 F) | RR 18 | Ht 1.6 m (5' 3") | Wt 97.5 kg (214 lb 15.2 oz) | SpO2 94% | BMI 38.08 kg/(m^2) 24 Hour Vital Min/Max: Systolic (24hrs), Av , Min:134 , Max:149 Diastolic (24hrs), Av, Min:67, Max:106 Pulse Min: 76 Max: 89 Temp Min: 36.4 C (97.5 F) Max: 36.6 C (97.9 F) Resp Min: 18 Max: 18 SpO2 Min: 93 % Max: 97 % Intake/Output Summary (Last 24 hours) at 03/11/17 1315 Last data filed at 03/11/17 1219 Gross per 24 hour Intake 2445 ml Output 3000 ml Net -555 ml Physical Exam: General: This is a female in NAD. Sitting upright in chair. HEENT: PERRL. Scleral hemorrhages bilaterally. Mucosa pink and moist without erythema or exudate. Skin: No rash, lesions noted. Scattered ecchymoses on BUE & petechiae on BLE. Chest: Lungs mildly diminished to auscultation bilat. Normal work of breath on room air. CV: RRR, no murmurs. Abdomen: S/NT/ND with NABS. No HSM appreciated. Extremities: Pulses strong and equal bilaterally. No c/c/e. NeuroPsych: Alert and oriented x 3. Grossly nonfocal exam. CVC: PICC line with mild erythema around insertion site. Tenderness to palpation improved. Recent Labs 03/08/17 2356 03/09/17 2330 03/10/17 2330 NA 141 140 138 K 4.1 4.3 3.5 CL 106 105 102 BICARB 26 25 28 BUN 21* 19 19 CR 0.43* 0.44* 0.46* GLU 143* 149* 171* CA 7.8* 7.8* 7.5* AST 51* 43* 44* ALT 47 45 47 AP 207* 184* 177* TBILI 1.0 0.9 0.8 TP 5.9* 5.8* 5.9* ALB 2.8* 2.9* 2.9* Recent Labs 03/04/17 2330 03/06/17 0227 03/06/17 2200 03/08/17 2356 03/09/17 2330 03/10/17 2330 WBC 7.66 < > 3.38* < > 0.54* < > <0.10* <0.10* <0.10* RBC 2.72* < > 2.66* < > 2.21* < > 2.36* 2.25* 2.65* HB 8.5* < > 8.6* < > 7.1* < > 7.6* 7.1* 8.3* HCT 25.6* < > 25.0* < > 21.1* < > 21.6* 20.6* 23.4* PLT 5* < > 26* < > 23* < > 20* 16* 15* NEUTROPERC 10.5* -- 36.2* -- 38.7* -- -- -- -- LYMPHPERC 14.9* -- 18.4 -- 12.6* -- -- -- -- MONOPERC 7.0 -- 3.3* -- 1.8* -- -- -- -- BASOPERC 0.0 -- 0.0 -- 0.0 -- -- -- -- EOSPERC 0.0* -- 0.0* -- 0.0* -- -- -- -- < > = values in this interval not displayed. Meds: Reviewed on rounds, see current MAR for medication list SUMMARY OF PATIENT'S HOSPITALIZATION Past Medical History: Rhea Hutchison is a 50 year old woman with history of COPD, depression, bladder spasms, hypoth yroidism and AML s/p induction 7+3+dasatinib and MiDAC consolidation (Apr 2016) who present s with AML recurrence. She is here with her and reports that she has had increasing diffuse body pains for approximately the past month. She was seen in her oncology clinic on 03/01 where she was noted to have a WBC 103K, up from her previously normal 5K in November. She reports that she has had increasing fatigue, nausea, vomiting, headache and now a sore at t he base of her inferior incisors in her mouth that occasionally bleed. She has also develop ed petechiae across her abdomen. She was admitted to [facility] where CXR was consistent with pulmonary leukostasis. Per Ca reEverywhere he labs were: WBC of 103,6000 (92% blasts) hgb 13.8 Hct 41.8%, Platelet count o f 10,000, Ldh 4427 U/L (ULN 215 U/L), Bun 14 mg/dL, Scr 0.82 mg/dL. She received fluids,hydroxyurea 2g q4hrs, 3L O2 per minute and a platelet transfusion prior to transfer. She reported no fevers but was febrile upon arrival at [facility]. Review of Systems: Positive for fatigue, night sweats, intermittent non-productive cough, d ecreased appetite, constipation, rash on abdomen, bleeding in mouth Oncology History (adapted from prior heme/onc notes) Last seen at [facility] Apr 2016 for consolidation therapy but per OSH notes, she has had the fol lowing events: Jan 2016 emergent bone marrow bx: bone marrow biopsy and aspiration at [facility] on February 15, 2016 confirmed acute myelogenous leukemia, diploid, positive for FLT-3 tyrosine kinase domai n mutation (also positive for NPM1, DNMT3A, NRAS, NPM1 and TET2 mutations). Induction chemotherapy with conventional 7+3 cytarabine/idarubicin February 16, 2016 with co ntinuous daily dasatinib (Sprycel) complicated by fungal pneumonia, neutropenic fever, hidra denitis suppurativa, and Clostridium Difficile colitis. Repeat bone marrow biopsy on 2015 (day 28); First complete remission. 1. Cycle#3 MiDaC (1200 mg/m Cytarabine) consolidation at [facility] on May 28, 2016. 2. Cycle#4 MiDaC (1000 mg/m Cytarabine ) consolidation at [facility] on June 25, 2016. 3. Bone Marrow Biopsy and Aspiration July 23, 2016 at the [facility] in [place], [place] specimen # [id number] demonstrated ongoing complete remissio n. Molecular analysis was negative for any residual NPM1 mutation positive cells and negativ e for any FLT-3 mutation positive cells (sensitivity is 1 in 20,000). 4. CBC on December 25, 2016; WBC 5,000, Hgb 14.6 gm/dl, Hct 42.7, Platelet 138,000. 5. MRI of right hip on January 25, 2017 in anticipation of right hip replacement; numerou s subcentimeter round marrow repacing lesions within the visualized lower lumbar spine, pelv is, and femurs. 6. CT Chest/Abdomen/Pelvis on February 06, 2017; 3 cm left thyroid mass, no other suggestion of primary neoplasm. 7. Bone scan February 08, 2017; Normal. 8. PET/CT scan on February 27, 2017; diffuse uptake about the spleen and bone marrow. 9. CBC on March 01, 2017; WBC 103,5000 (92% blasts) Hgb 13.8, Hct 41.8%, Platelet count 1 0,000. [id number] U/L, BUN 14 mg/dL, Scr 0.82 mg/dL. 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 -Cytogenetics: PENDING -Genetrails: PENDING, preliminary report + FLT3 ITD at 90% allele frequency Treatment: -Chemotherapy regimen: received hydrea 03/02-or leukocytosis, then started Flag-Arlette + Midostaurin (Day 1= 03/05/17) -Fludarabine 30mg/m2 (60mg) Daily, Days 1-5 -Idarubicin 8mg/m2 (16mg) Daily, Days 1-3 -Cytarabine 2000mg/m2 (4200mg) Daily, Days 1-5 -Midostaurin 50mg twice daily on Days 8-21 -Chemo Day: 7 -Pt is indicated for transplant with diagnosis of relapsed AML. They may be psychosocial b arriers to stem cell transplant, however will type sibs in meantime while plan is to be dete rmined. #Pancytopenia d/t relapsed disease and chemo: -See supportive care #Supportive Care: Growth factor: daily filgrastim per FLAG-Arlette protocol. Labs: Continue to check CBC with diff daily Transfusion parameters: -Transfuse PRBCs for HCT <21% if asymptomatic OR <24% if symptomatic -Transfuse PPH for platelet count <20,000 d/t epistaxis and CVC site bleeding #Bleeding, likely due to decreased platelet production and not DIC: Epistaxis and bleeding from PICC site, noted 03/04. -Keep platelets >20K -Tranexamic acid TID- stopped 03/07 with improved bleeding and corrected INR. -Vitamin K x3 days -Monitor Coags daily Cardiovascular: TTE completed 03/04 with EF=70%. #Sinus tachycardia with hypertension: -Likely multifactorial: tumor lysis, fever, pain, volume depletion, ? Sepsis. No evidence of cardiac ischemia -Not on rate control medications. May be needed if no improvement. #Prolonged QTc: QTc 563 on EKG, was not prolonged on previous admissions. -Will monitor electrolytes and QTc prolonging medications closely. Pulmonary: #Abnormal CXR (03/05) bilateral groundglass opacities predominantly in the perihilar regions , Follow up CT Chest (03/05) with extensive bilateral ground glass and consolidative opacitie s are new compared to 03/02/2017, possibly r/t leukostasis vs. DAH vs. infection. Lactate 03/04= 0.8. -Treat leukemia as above -Abx as above -Keep platelets >20K -Supplemental O2 PRN #COPD: Home inhalers ordered #FVO r/t MIVF: -Decreased MIVF -Diurese PRN, last given 40mg Lasix 03/11. GI: #Hemorrhoidal pain: -prn proctocort -Stool softereners Renal: #Risk for TLS, no signs of TLS at this time: -TLS labs daily. -Allopurinol daily stopped 03/08 with leukopenia . -MIVF Neuro/Psych: #Diffuse pain: Likely due to hematologic malignancy. Morphine allergy but per patient other opioids OK. - Tylenol - Oxycodone PRN #Depression/Anxiety: -Continue home duloxetine, dose reduced as above -Social work following -Lorazepam PRN for anxiety Endocrine: #Hypothyroidism: -Continue home synthroid Infectious Disease: #Non-neutropenic fevers, possibly disease related fevers. BCx 03/03 NGTD, UA clear. CXR with consolidation (see pulm section) possibly from leukostasis vs infection vs DAH. -Continue Cefepime (03/02- ) -Added Doxycycline (03/10- ) for PICC site redness, plan to continue through 03/14 to comp lete 5 day course. Consider adding vancomycin if site worsens #Prophylaxis: Bacterial: As above Fungal: Posaconazole Viral: Acyclovir PCP: Pentam given 03/09/17 Fluid/Nutrition/Lytes: #Nutrition: Regular diet, No Madeline's yogurt or Kefir #Fluid: 1L NS bolus O/N for po intake <2L/day #Lytes; Continue to check chemistries daily. Replace per supportive care protocol. Disposition: Admitted for further work-up and treatment for relapsed AML. Anticipate 3-[address] [facility] admission. Katie Combs, VESTA [address] [facility] Mailcode: [facility] [place] [address] Sarah Katz, [facility] - 03/10/2017 1:47 PM PSTFormatting of this note may be different from the original. Daily NPP Note - Hematologic Malignancies/Chemo [facility]mit [facility] Attending: Kay Duarte MD [facility] [place] MD: Angela Goldberg MD PCP: Saurav De Los Santos NP Date of Admission: 03/02/17 Hematologic Malignancy: AML Reason for admission: Relapsed AML, admitted for w/u and treatment ID: 51yo woman with relapsed AML admitted for treatment. PMH includes COPD, depression/anxi ety, learning disability, bladder spasms and hypothyroidism. 24 Hour Events/Current Daily Plan: -AML, relapsed post induction and consolidation for favorable risk AML (+NPM1, +FLT3-TKD) a dmitted with WBC >100K. -Day 6 of reinduction with Flag-Arlette + Midostaurin (days 8-21) -Pancytopenia r/t relapsed disease: Standard Hct transfusion protocol. Keep platelets >20K d/t epistaxis, scleral hemarrohage and PICC site bleeding. 1 unit PRBCs & PPH today. -Bleeding (epistaxis and PICC oozing) likely due to decreased platelet production and likel y DIC: IMPROVED. Stopped tranexamic acid 03/07. INR improved s/p vitamin K, Keep platelets >2 0K -Non-neutropenic fever: present on admission and continued x 3 days, possibly disease relat ed fevers vs PNA. Blood cx 03/03 negative. UA clear. CXR as below. -Continue Cefepime (03/02- ) -Added Doxycycline 100 mg PO BID x 5 days (03/10- ) d/t PICC site erythema/tenderness. -GGO and consolidative opacities in lungs: Abnormal CXR (03/05) bilateral GGO predominantly in the perihilar regions, Follow up CT Chest (03/05) with extensive bilateral GG and consolid ative opacities new compared to 03/02/2017, possibly r/t leukostasis vs. DAH vs. infection. L actate 03/04= 0.8. -Treating leukemia as above -Abx as above -HTN: Likely 2/2 FVO, diurese prn, last given lasix 40mg IV x 1 on 03/10. MIVF switched to prn. -Psychosocial: Hx MDD. Continue Cymbalta, dose reduced d/t bleeding (30 mg BID, home dose 9 0 mg daily). Difficulty coping with relapsed disease. Social work following. Subjective: Feels well today. Sitting up in chair. Pain at PICC site stable. Also has some hemorrhoidal pain. Denies constipation or diarrhea. Has been walking the hallways. Objective: Last Vitals: BP 154/87 | Pulse 74 | Temp 36.7 C (98.1 F) | RR 18 | Ht 1.6 m (5' 3") | W t 97.2 kg (214 lb 4.6 oz) | SpO2 94% | BMI 37.96 kg/(m^2) 24 Hour Vital Min/Max: Systolic (24hrs), Av , Min:143 , Max:172 Diastolic (24hrs), Av, Min:73, Max:99 Pulse Min: 72 Max: 121 Temp Min: 36.4 C (97.5 F) Max: 36.8 C (98.2 F) Resp Min: 18 Max: 21 SpO2 Min: 92 % Max: 100 % Intake/Output Summary (Last 24 hours) at 03/10/17 1347 Last data filed at 03/10/17 1200 Gross per 24 hour Intake 2568.57 ml Output 4650 ml Net -2081.43 ml Physical Exam: General: This is a female in NAD. Sitting up in recliner. Good eye contact. HEENT: PERRL. Scleral hemorrhages bilaterally. Mucosa pink and moist without erythema or exudate. Skin: No rash, lesions noted. Scattered ecchymoses on BUE & petechiae on BLE Chest: Lungs mildly diminished to auscultation bilat. CV: RRR, no murmurs. Abdomen: S/NT/ND with NABS. No HSM appreciated. Extremities: Pulses strong and equal bilaterally. No c/c/e. NeuroPsych: Alert and oriented x 3. Grossly nonfocal exam. CVC: PICC line with mild erythema around insertion site. Tenderness noted. Recent Labs 03/07/17231403/08/17235503/09/17 2330 NA 140 141 140 K 4.1 4.1 4.3 CL 107 106 105 BICARB 26 26 25 BUN 22* 21* 19 CR 0.43* 0.43* 0.44* GLU 166* 143* 149* CA 7.4* 7.8* 7.8* AST 42* 51* 43* ALT 38 47 45 AP 221* 207* 184* TBILI 0.7 1.0 0.9 TP 5.5* 5.9* 5.8* ALB 2.6* 2.8* 2.9* Recent Labs 03/04/17 2330 03/06/17 0227 03/06/17 22003/07/17231403/08/17 23503/09/17 2330 WBC 7.66 < > 3.38* < > 0.54* < > 0.16* <0.10* <0.10* RBC 2.72* < > 2.66* < > 2.21* < > 2.15* 2.36* 2.25* HB 8.5* < > 8.6* < > 7.1* < > 6.8* 7.6* 7.1* HCT 25.6* < > 25.0* < > 21.1* < > 19.8* 21.6* 20.6* PLT 5* < > 26* < > 23* < > 17* 20* 16* NEUTROPERC 10.5* -- 36.2* -- 38.7* -- -- -- -- LYMPHPERC 14.9* -- 18.4 -- 12.6* -- -- -- -- MONOPERC 7.0 -- 3.3* -- 1.8* -- -- -- -- BASOPERC 0.0 -- 0.0 -- 0.0 -- -- -- -- EOSPERC 0.0* -- 0.0* -- 0.0* -- -- -- -- < > = values in this interval not displayed. Meds: Reviewed on rounds, see current MAR for medication list SUMMARY OF PATIENT'S HOSPITALIZATION Past Medical History: Rhea Hutchison is a 50 year old woman with history of COPD, depression, bladder spasms, hypoth yroidism and AML s/p induction 7+3+dasatinib and MiDAC consolidation (Apr 2016) who present s with AML recurrence. She is here with her and reports that she has had increasing diffuse body pains for approximately the past month. She was seen in her oncology clinic on 03/01 where she was noted to have a WBC 103K, up from her previously normal 5K in November. She reports that she has had increasing fatigue, nausea, vomiting, headache and now a sore at t he base of her inferior incisors in her mouth that occasionally bleed. She has also develop ed petechiae across her abdomen. She was admitted to [facility] where CXR was consistent with pulmonary leukostasis. Per Ca reEverywhere he labs were: WBC of 103,6000 (92% blasts) hgb 13.8 Hct 41.8%, Platelet count o f 10,000, Ldh 4427 U/L (ULN 215 U/L), Bun 14 mg/dL, Scr 0.82 mg/dL. She received fluids,hydroxyurea 2g q4hrs, 3L O2 per minute and a platelet transfusion prior to transfer. She reported no fevers but was febrile upon arrival at [facility]. Review of Systems: Positive for fatigue, night sweats, intermittent non-productive cough, d ecreased appetite, constipation, rash on abdomen, bleeding in mouth Oncology History (adapted from prior heme/onc notes) Last seen at [facility] Apr 2016 for consolidation therapy but per OSH notes, she has had the fol lowing events: Jan 2016 emergent bone marrow bx: bone marrow biopsy and aspiration at [facility] on February 15, 2016 confirmed acute myelogenous leukemia, diploid, positive for FLT-3 tyrosine kinase domai n mutation (also positive for NPM1, DNMT3A, NRAS, NPM1 and TET2 mutations). Induction chemotherapy with conventional 7+3 cytarabine/idarubicin February 16, 2016 with co ntinuous daily dasatinib (Sprycel) complicated by fungal pneumonia, neutropenic fever, hidra denitis suppurativa, and Clostridium Difficile colitis. Repeat bone marrow biopsy on 2015 (day 28); First complete remission. 1. Cycle#3 MiDaC (1200 mg/m Cytarabine) consolidation at [facility] on May 28, 2016. 2. Cycle#4 MiDaC (1000 mg/m Cytarabine ) consolidation at [facility] on June 25, 2016. 3. Bone Marrow Biopsy and Aspiration July 23, 2016 at the [facility] in [place], [place] specimen # [id number] demonstrated ongoing complete remissio n. Molecular analysis was negative for any residual NPM1 mutation positive cells and negativ e for any FLT-3 mutation positive cells (sensitivity is 1 in 20,000). 4. CBC on December 25, 2016; WBC 5,000, Hgb 14.6 gm/dl, Hct 42.7, Platelet 138,000. 5. MRI of right hip on January 25, 2017 in anticipation of right hip replacement; numerou s subcentimeter round marrow repacing lesions within the visualized lower lumbar spine, pelv is, and femurs. 6. CT Chest/Abdomen/Pelvis on February 06, 2017; 3 cm left thyroid mass, no other suggestion of primary neoplasm. 7. Bone scan February 08, 2017; Normal. 8. PET/CT scan on February 27, 2017; diffuse uptake about the spleen and bone marrow. 9. CBC on March 01, 2017; WBC 103,5000 (92% blasts) Hgb 13.8, Hct 41.8%, Platelet count 1 0,000. [id number] U/L, BUN 14 mg/dL, Scr 0.82 mg/dL. 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 -Cytogenetics: PENDING -Genetrails: PENDING, preliminary report + FLT3 ITD at 90% allele frequency Treatment: -Chemotherapy regimen: received hydrea 03/02-or leukocytosis, then started Flag-Alrette + Midostaurin (Day 1= 03/05/17) -Fludarabine 30mg/m2 (60mg) Daily, Days 1-5 -Idarubicin 8mg/m2 (16mg) Daily, Days 1-3 -Cytarabine 2000mg/m2 (4200mg) Daily, Days 1-5 -Midostaurin 50mg twice daily on Days 8-21 -Chemo Day: 6 -Pt is indicated for transplant with diagnosis of relapsed AML. They may be psychosocial b arriers to stem cell transplant, however will type sibs in meantime while plan is to be dete rmined. #Pancytopenia d/t relapsed disease and chemo: -See supportive care #Supportive Care: Growth factor: daily filgrastim per FLAG-Arlette protocol. Labs: Continue to check CBC with diff daily Transfusion parameters: -Transfuse PRBCs for HCT <21% if asymptomatic OR <24% if symptomatic -Transfuse PPH for platelet count <20,000 d/t epistaxis and CVC site bleeding #Bleeding, likely due to decreased platelet production and not DIC: Epistaxis and bleeding from PICC site, noted 03/04. -Keep platelets >20K -Tranexamic acid TID- stopped 03/07 with improved bleeding and corrected INR. -Vitamin K x3 days -Monitor Coags daily Cardiovascular: TTE completed 03/04 with EF=70%. #Sinus tachycardia with hypertension: -Likely multifactorial: tumor lysis, fever, pain, volume depletion, ? Sepsis. No evidence of cardiac ischemia -Not on rate control medications. May be needed if no improvement. #Prolonged QTc: QTc 563 on EKG, was not prolonged on previous admissions. -Will monitor electrolytes and QTc prolonging medications closely. Pulmonary: #Abnormal CXR (03/05) bilateral groundglass opacities predominantly in the perihilar regions , Follow up CT Chest (03/05) with extensive bilateral ground glass and consolidative opacitie s are new compared to 03/02/2017, possibly r/t leukostasis vs. DAH vs. infection. Lactate 03/04= 0.8. -Treat leukemia as above -Abx as above -Keep platelets >20K -Supplemental O2 PRN #COPD: Home inhalers ordered #FVO r/t MIVF: -Decreased MIVF -Diurese PRN, last given 40mg Lasix 03/10. GI: #Hemorrhoidal pain: -prn proctocort -Stool softereners Renal: #Risk for TLS, no signs of TLS at this time: -TLS labs daily. -Allopurinol daily stopped 03/08 with leukopenia . -MIVF Neuro/Psych: #Diffuse pain: Likely due to hematologic malignancy. Morphine allergy but per patient other opioids OK. - Tylenol - Oxycodone PRN #Depression/Anxiety: -Continue home duloxetine, dose reduced as above -Social work following -Lorazepam PRN for anxiety Endocrine: #Hypothyroidism: -Continue home synthroid Infectious Disease: #Non-neutropenic fevers, possibly disease related fevers. BCx 03/03 NGTD, UA clear. CXR with consolidation (see pulm section) possibly from leukostasis vs infection vs DAH. -Continue Cefepime (03/02- ) -Added Doxycycline (03/10- ) for PICC site redness, plan to continue through 03/14 to comp lete 5 day course #Prophylaxis: Bacterial: As above Fungal: Posaconazole Viral: Acyclovir PCP: Pentam given 03/09/17 Fluid/Nutrition/Lytes: #Nutrition: Regular diet, No Madeline's yogurt or Kefir #Fluid: 1L NS bolus O/N for po intake <2L/day #Lytes; Continue to check chemistries daily. Replace per supportive care protocol. Disposition: Admitted for further work-up and treatment for relapsed AML. Anticipate 3-[address] [facility] admission. Sarah Katz, ISIDRO [facility] [id number] [facility] Mailcode: [email or web address] [place] [address] Kay Duarte MD - 03/10/2017 7:24 AM PSTFormatting of this note may be different from jl baker original. 03/10/2017 Hematologic Malignancies Attending Inpatient Progress Note: I was present and rounded today in conjunction with the CERTIFIED OPHTHALMIC TECHNOLOGIST, Sarah Katz. I examined the patient, reviewed the relevant history and studies, and formulated a plan. Please see the CERTIFIED OPHTHALMIC TECHNOLOGIST documentation from today for details. It is noted that patient reports: Feels well. Pain at site of L PICC is stable. Denies naus ea/vomiting/diarrhea/constipation. Vitals: Systolic (24hrs), Av , Min:138 , Max:150 Diastolic (24hrs), Av, Min:72, Max:90 Pulse Av.3 Min: 79 Max: 93 Temp Av.6 C (97.8 F) Min: 36.3 C (97.3 F) Max: 36.8 C (98.2 F) Resp Av.5 Min: 15 Max: 18 SpO2 Av % Min: 90 % Max: 96 % Intake/Output Summary (Last 24 hours) at 03/13/17 0724 Last data filed at 03/13/17 0433 Gross per 24 hour Intake 1890 ml Output 1106 ml Net 784 ml Current medications: Current Facility-Administered Medications Medication Dose Route Frequency Last Rate acyclovir (ZOVIRAX) tablet 800 mg 800 mg oral DAILY ceFEPIme (MAXIPIME) injection 2 g 2 g intravenous Q8H DULoxetine (CYMBALTA) capsule 30 mg 30 mg oral BID filgrastim-sndz (ZARXIO) injection 300 mcg 300 mcg subcutaneous QPM AT 1700 hydrocortisone (PROCTOCORT) 1 % rectal cream rectal TID levothyroxine tablet 50 mcg 50 mcg oral DAILY midostaurin (RYDAPT) cap 50 mg 50 mg oral QLUNCH omeprazole (PRILOSEC) capsule 20 mg 20 mg oral BEFORE BREAKFAST ondansetron (ZOFRAN) tablet 4 mg 4 mg oral Q24H oxybutynin CR (DITROPAN-XL) tablet 15 mg 15 mg oral DAILY pentamidine (PENTAM) IV 300 mg 300 mg intravenous Q4W Stopped (03/09/17 1230) posaconazole DR (NOXAFIL) tablet 300 mg 300 mg oral DAILY prednisoLONE acetate (PRED FORTE) 1 % ophthalmic drops, suspension 2 drop 2 drop Both Eyes Q6H tiotropium (SPIRIVA) inhalation 18 mcg 18 mcg inhalation DAILY vancomycin (VANCOCIN) IV 1,500 mg 15 mg/kg intravenous Q12H Stopped (03/13/17 0430) Allergies: Allergies Allergen Reactions Morphine Rash and Facial Swelling Rash and facial swelling Opioids - Morphine Analogues Confusion Laboratory or other studies: Recent Labs 03/10/17232903/11/17 23003/12/17 2321 WBC <0.10* <0.10* <0.10* HB 8.3* 8.4* 7.9* HCT 23.4* 24.1* 23.1* PLT 15* 17* 13* Recent Labs 03/10/17232903/11/17230103/12/17 2321 NA 138 137 141 K 3.5 3.7 3.6 CL 102 103 107 BICARB 28 28 27 BUN 19 19 15 CR 0.46* 0.48* 0.47* CA 7.5* 7.6* 7.8* MG 2.2 2.2 2.4 PO4 2.2* 1.7* 2.5 AST 44* 36 26 ALT 47 47 40 TBILI 0.8 0.7 0.7 AP 177* 164* 145* ALB 2.9* 3.0* 2.6* TP 5.9* 6.0* 5.5* URINE CULTURE [facility] (no units) Date Value 03/05/2016 No growth (<1000 cfu/mL) after 24 hours CULTURE RESULT (no units) Date Value 03/04/2017 Final Report:No Bacteria or Yeast isolated at 5 days. Lab Results Component Value Date APTT 25.9 (L) 03/12/2017 FIBRINOGEN 267 03/12/2017 The physical exam is notable for: Alert and oriented x 3 -sitting in chair. B/L scleral hem orrhages. No oral lesions or mucositis. Lungs mildly diminished to auscultation, improving. RRR, no murmurs. Abdomen is benign. Extremities normal. +erythema around L PICC site. Otherw ise skin is normal without suspicious lesions or rash. Rhea Hutchison is a 51 y.o. female with the following hospitalization problem list: The patient is Day 6 of FLAG-Arlette + midostaurin (days 8-21) re-induction Plans include: 1. 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 Relapsed s/p induction and consolidation. Admitted for FLAG-Arlette + midostaurin given on days 8-21. -Pancytopenia r/t chemotherapy: Keep plts>20k d/t hx of bleeding. Standard Hct transfusion parameters. 2. Bleeding: epistaxis and PICC oozing r/t decreased plt production. Improved. 3. Non-neutropenic fevers: present at admit and continued for 3 days after. Blood cx and UA on 03/03 negative. Continue Cefepime. Doxycycline x 5 days added today for PICC erythema/te nderness - US to r/o DVT pending. Kay Duarte MD, MS [facility] [id number] [facility] Mailcode: [email or web address] [place] [address] [facility] DEPARTMENT: [id number]- [facility] [place] [facility]ACULT[facility] Place of Service:- Inpatient Date of Service: 03/10/2017 Sarha Katz, [facility] - 03/09/2017 1:37 PM PSTFormatting of this note may be different from the original. Daily NPP Note - Hematologic Malignancies/Chemo Admit [facility] Attending: Angela Goldberg MD PCP: Saurav De Los Santos NP Date of Admission: 03/02/17 Hematologic Malignancy: AML Reason for admission: Relapsed AML, admitted for w/u and treatment ID: 51yo woman with relapsed AML admitted for treatment. PMH includes COPD, depression/anxi ety, learning disability, bladder spasms and hypothyroidism. 24 Hour Events/Current Daily Plan: -AML, relapsed post induction and consolidation for favorable risk AML (+NPM1, +FLT3-TKD) a dmitted with WBC >100K. -Day 5 of reinduction with Flag-Arlette + Midostaurin (days 8-21) -Pancytopenia r/t relapsed disease: Standard Hct transfusion protocol. Keep platelets >20K d/t epistaxis, scleral hemarrohage and PICC site bleeding. 1 unit PPH today. -Bleeding (epistaxis and PICC oozing) likely due to decreased platelet production and likel y DIC: now improved. Stopped tranexamic acid 03/07. INR improved s/p vitamin K, Keep platelet s >20K -Non-neutropenic fever: present on admission and continued x 3 days, possibly disease relat ed fevers vs PNA. Blood cx 03/03 negative. UA clear. CXR as below. -Continue Cefepime (03/02- ) -GGO and consolidative opacities in lungs: Abnormal CXR (03/05) bilateral GGO predominantly in the perihilar regions, Follow up CT Chest (03/05) with extensive bilateral GG and consolid ative opacities new compared to 03/02/2017, possibly r/t leukostasis vs. DAH vs. infection. L actate 03/04= 0.8. -Treating leukemia as above -Abx as above -Risk for TLS, no signs of TLS at this time. Stop allopurinol today. MIVF at 50ml/hr. Labs now daily only. -FVO r/t MIVF: decreased IVF today, last given lasix 40mg IV x 1 on 03/08. -Psychosocial: Difficulty coping with relapsed disease. Social work following. Subjective: Sitting up in chair, feels overwhelmed about disease/treatment plans. Has pain at PICC site improving with ice packs. Objective: Last Vitals: BP 160/86 | Pulse 80 | Temp 36.6 C (97.9 F) | RR 18 | Ht 1.6 m (5' 3") | W t 97.2 kg (214 lb 4.6 oz) | SpO2 96% | BMI 37.96 kg/(m^2) 24 Hour Vital Min/Max: Systolic (24hrs), Av , Min:129 , Max:160 Diastolic (24hrs), Av, Min:59, Max:86 Pulse Min: 73 Max: 91 Temp Min: 36.3 C (97.3 F) Max: 36.9 C (98.4 F) Resp Min: 15 Max: 18 SpO2 Min: 92 % Max: 96 % Intake/Output Summary (Last 24 hours) at 03/09/17 1337 Last data filed at 03/09/17 1127 Gross per 24 hour Intake 3665.23 ml Output 4075 ml Net -409.77 ml Physical Exam: General: This is a female in NAD. Sitting up in recliner. HEENT: PERRL. Scleral hemorrhages bilaterally. Mucosa pink and moist without erythema or exudate. Skin: No rash, lesions noted. Scattered ecchymoses on BUE & petechiae on BLE Chest: Lungs mildly diminished to auscultation bilat. CV: RRR, no murmurs. Abdomen: S/NT/ND with NABS. No HSM appreciated. Extremities: Pulses strong and equal bilaterally. No c/c/e. NeuroPsych: Alert and oriented x 3. Grossly nonfocal exam. CVC: PICC line with bruising around insertion site. Tenderness noted. Recent Labs 03/06/17219903/07/17 0600 03/07/175 03/08/17 2356 NA 141 | 141 142 140 141 K 3.7 | 3.7 4.1 4.1 4.1 CL 109* | 109* 109* 107 106 BICARB 26 | 26 25 26 26 BUN 20 | 20 20 22* 21* CR 0.49* | 0.49* 0.54* 0.43* 0.43* GLU 153* | 153* 171* 166* 143* CA 6.9* | 6.9* 7.6* 7.4* 7.8* AST 65* -- 42* 51* ALT 33 -- 38 47 AP 238* -- 221* 207* TBILI 0.6 -- 0.7 1.0 TP 5.2* -- 5.5* 5.9* ALB 2.2* -- 2.6* 2.8* Recent Labs 03/04/17 2330 03/06/17 0227 03/06/17 2200 03/07/17 0600 03/07/17 2315 03/08/17 2356 WBC 7.66 < > 3.38* < > 0.54* 0.36* 0.16* <0.10* RBC 2.72* < > 2.66* < > 2.21* 2.34* 2.15* 2.36* HB 8.5* < > 8.6* < > 7.1* 7.3* 6.8* 7.6* HCT 25.6* < > 25.0* < > 21.1* 22.4* 19.8* 21.6* PLT 5* < > 26* < > 23* 16* 17* 20* NEUTROPERC 10.5* -- 36.2* -- 38.7* -- -- -- LYMPHPERC 14.9* -- 18.4 -- 12.6* -- -- -- MONOPERC 7.0 -- 3.3* -- 1.8* -- -- -- BASOPERC 0.0 -- 0.0 -- 0.0 -- -- -- EOSPERC 0.0* -- 0.0* -- 0.0* -- -- -- < > = values in this interval not displayed. Meds: Reviewed on rounds, see current MAR for medication list SUMMARY OF PATIENT'S HOSPITALIZATION Past Medical History: Rhea Hutchison is a 50 year old woman with history of COPD, depression, bladder spasms, hypoth yroidism and AML s/p induction 7+3+dasatinib and MiDAC consolidation (Apr 2016) who present s with AML recurrence. She is here with her and reports that she has had increasing diffuse body pains for approximately the past month. She was seen in her oncology clinic on 03/01 where she was noted to have a WBC 103K, up from her previously normal 5K in November. She reports that she has had increasing fatigue, nausea, vomiting, headache and now a sore at t he base of her inferior incisors in her mouth that occasionally bleed. She has also develop ed petechiae across her abdomen. She was admitted to [facility] where CXR was consistent with pulmonary leukostasis. Per Ca reEverywhere he labs were: WBC of 103,6000 (92% blasts) hgb 13.8 Hct 41.8%, Platelet count o f 10,000, Ldh 4427 U/L (ULN 215 U/L), Bun 14 mg/dL, Scr 0.82 mg/dL. She received fluids,hydroxyurea 2g q4hrs, 3L O2 per minute and a platelet transfusion prior to transfer. She reported no fevers but was febrile upon arrival at [facility]. Review of Systems: Positive for fatigue, night sweats, intermittent non-productive cough, d ecreased appetite, constipation, rash on abdomen, bleeding in mouth Oncology History (adapted from prior heme/onc notes) Last seen at [facility] Apr 2016 for consolidation therapy but per OSH notes, she has had the fol lowing events: Jan 2016 emergent bone marrow bx: bone marrow biopsy and aspiration at [facility] on February 15, 2016 confirmed acute myelogenous leukemia, diploid, positive for FLT-3 tyrosine kinase domai n mutation (also positive for NPM1, DNMT3A, NRAS, NPM1 and TET2 mutations). Induction chemotherapy with conventional 7+3 cytarabine/idarubicin February 16, 2016 with co ntinuous daily dasatinib (Sprycel) complicated by fungal pneumonia, neutropenic fever, hidra denitis suppurativa, and Clostridium Difficile colitis. Repeat bone marrow biopsy on 2015 (day 28); First complete remission. 1. Cycle#3 MiDaC (1200 mg/m Cytarabine) consolidation at [facility] on May 28, 2016. 2. Cycle#4 MiDaC (1000 mg/m Cytarabine ) consolidation at [facility] on June 25, 2016. 3. Bone Marrow Biopsy and Aspiration July 23, 2016 at the [facility] in [place], [place] specimen # [id number] demonstrated ongoing complete remissio n. Molecular analysis was negative for any residual NPM1 mutation positive cells and negativ e for any FLT-3 mutation positive cells (sensitivity is 1 in 20,000). 4. CBC on December 25, 2016; WBC 5,000, Hgb 14.6 gm/dl, Hct 42.7, Platelet 138,000. 5. MRI of right hip on January 25, 2017 in anticipation of right hip replacement; numerou s subcentimeter round marrow repacing lesions within the visualized lower lumbar spine, pelv is, and femurs. 6. CT Chest/Abdomen/Pelvis on February 06, 2017; 3 cm left thyroid mass, no other suggestion of primary neoplasm. 7. Bone scan February 08, 2017; Normal. 8. PET/CT scan on February 27, 2017; diffuse uptake about the spleen and bone marrow. 9. CBC on March 01, 2017; WBC 103,5000 (92% blasts) Hgb 13.8, Hct 41.8%, Platelet count 1 0,000. [id number] U/L, BUN 14 mg/dL, Scr 0.82 mg/dL. 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 -Cytogenetics: PENDING -Genetrails: PENDING, preliminary report + FLT3 ITD at 90% allele frequency Treatment: -Chemotherapy regimen: received hydrea 03/02-or leukocytosis, then started Flag-Arlette + Midostaurin (Day 1= 03/05/17) -Fludarabine 30mg/m2 (60mg) Daily, Days 1-5 -Idarubicin 8mg/m2 (16mg) Daily, Days 1-3 -Cytarabine 2000mg/m2 (4200mg) Daily, Days 1-5 -Midostaurin 50mg twice daily on Days 8-21 -Chemo Day: 5 -Pt is indicated for transplant with diagnosis of relapsed AML. They may be psychosocial b arriers to stem cell transplant, however will type sibs in meantime while plan is to be dete rmined. #Pancytopenia d/t relapsed disease and chemo: -See supportive care #Supportive Care: Growth factor: daily filgrastim per FLAG-Arlette protocol. Labs: Continue to check CBC with diff daily Transfusion parameters: -Transfuse PRBCs for HCT <21% if asymptomatic OR <24% if symptomatic -Transfuse PPH for platelet count <20,000 d/t epistaxis and CVC site bleeding #Bleeding, likely due to decreased platelet production and not DIC: Epistaxis and bleeding from PICC site, noted 03/04. -Keep platelets >20K -Tranexamic acid TID- stopped 03/07 with improved bleeding and corrected INR. -Vitamin K x3 days -Monitor Coags daily Cardiovascular: TTE completed 03/04 with EF=70%. #Sinus tachycardia with hypertension: -Likely multifactorial: tumor lysis, fever, pain, volume depletion, ? Sepsis. No evidence of cardiac ischemia -Not on rate control medications. May be needed if no improvement. #Prolonged QTc: QTc 563 on EKG, was not prolonged on previous admissions. -Will monitor electrolytes and QTc prolonging medications closely. Pulmonary: #Abnormal CXR (03/05) bilateral groundglass opacities predominantly in the perihilar regions , Follow up CT Chest (03/05) with extensive bilateral ground glass and consolidative opacitie s are new compared to 03/02/2017, possibly r/t leukostasis vs. DAH vs. infection. Lactate 03/04= 0.8. -Treat leukemia as above -Abx as above -Keep platelets >20K -Supplemental O2 PRN #COPD: Home inhalers ordered #FVO r/t MIVF: -Decreased MIVF -Diurese PRN, last given 40mg Lasix 03/08. GI: No acute issues Renal: #Risk for TLS, no signs of TLS at this time: -TLS labs daily. -Allopurinol daily stopped 03/08 with leukopenia . -MIVF Neuro/Psych: #Diffuse pain: Likely due to hematologic malignancy. Morphine allergy but per patient other opioids OK. - Tylenol - Oxycodone PRN #Depression/Anxiety: -Continue home duloxetine -Social work following -Lorazepam PRN for anxiety Endocrine: #Hypothyroidism: -Continue home synthroid Infectious Disease: #Non-neutropenic fevers, possibly disease related fevers. BCx 03/03 NGTD, UA clear. CXR with consolidation (see pulm section) possibly from leukostasis vs infection vs DAH. -Continue Cefepime (03/02- ) #Prophylaxis: Bacterial: As above Fungal: Posaconazole Viral: Acyclovir PCP: Pentam 03/09/17 Fluid/Nutrition/Lytes: #Nutrition: Regular diet, No Madeline's yogurt or Kefir #Fluid: NS at 50 mL/hr #Lytes; Continue to check chemistries daily. Replace per supportive care protocol. Disposition: Admitted for further work-up and treatment for relapsed AML. Anticipate 3-[address] [facility] [facility] admission. Cierra Flowers PA-C [facility] [id number] [facility] Mailcode: [id number] [place] [id number] Kay Duarte MD - 03/09/2017 12:33 PM PSTFormatting of this note may be different from jl baker original. 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 Starting FLAG-Arlette on 03/05/17 I rounded today, 03/08/17, in conjunction with the Advanced Practice Provider. I saw the patient, reviewed the history and relevant studies and developed an assessment an d plan. Subjective/Objective: Feeling better with chemo. Very anxious and scared. Has a lot of pain around PICC line site waylon at night ROS otherwise negative -bleeding has stopped Summary of day's events and plan: day 5 of FLAG-Arlette - breathing improved - afebrile on cefepime - bleeding resolved, slowly reduce plt parameters - previous FLT3 TKD and now ITD -> add midostaurin days 8-21 - acyclovir and posa ppx - monitor closely at jacquelin - US of UE with PICC to R/O DVT. Please see the Advanced Practice Provider documentation from today for the details regardin g the assessment and plan. Active Problems: Patients Hospital Problem List: Active Hospital Problems 1) COPD (chronic obstructive pulmonary disease) (HCC) 2) Anxiety and depression 3) AML (acute myeloid leukemia) (HCC) 4) Learning disability 5) Neutropenic fever (HCC) 6) Abnormal CXR Ht 1.6 m (5' 3"), Wt 97.2 kg (214 lb 4.6 oz), BP 160/86, Pulse 80, Temperature 36.6 C (97 .9 F), RR 18, SpO2 96%, BMI 37.96 kg/(m^2). Focused Exam: NAD, + B/L conjunctival hemorrhages, op clear, cta b, rrr no m/r/g, soft abd, 1+ edema , + PICC line site bruising /erythema Intake/Output Summary (Last 24 hours) at 03/08/17 0933 Last data filed at 03/08/17 0800 Gross per 24 hour Intake 3787.17 ml Output 3350 ml Net 437.17 ml Recent Labs 03/06/17219903/07/17 0603/07/17231403/08/17 2356 NA 141 | 141 142 140 141 K 3.7 | 3.7 4.1 4.1 4.1 CL 109* | 109* 109* 107 106 BICARB 26 | 26 25 26 26 BUN 20 | 20 20 22* 21* CR 0.49* | 0.49* 0.54* 0.43* 0.43* GLU 153* | 153* 171* 166* 143* CA 6.9* | 6.9* 7.6* 7.4* 7.8* AST 65* -- 42* 51* ALT 33 -- 38 47 AP 238* -- 221* 207* TBILI 0.6 -- 0.7 1.0 TP 5.2* -- 5.5* 5.9* ALB 2.2* -- 2.6* 2.8* Recent Labs 03/04/17 2330 03/06/1722603/06/17219903/07/17 0603/07/17231403/08/17 2356 WBC 7.66 < > 3.38* < > 0.54* 0.36* 0.16* <0.10* RBC 2.72* < > 2.66* < > 2.21* 2.34* 2.15* 2.36* HB 8.5* < > 8.6* < > 7.1* 7.3* 6.8* 7.6* HCT 25.6* < > 25.0* < > 21.1* 22.4* 19.8* 21.6* PLT 5* < > 26* < > 23* 16* 17* 20* NEUTROPERC 10.5* -- 36.2* -- 38.7* -- -- -- LYMPHPERC 14.9* -- 18.4 -- 12.6* -- -- -- MONOPERC 7.0 -- 3.3* -- 1.8* -- -- -- BASOPERC 0.0 -- 0.0 -- 0.0 -- -- -- EOSPERC 0.0* -- 0.0* -- 0.0* -- -- -- < > = values in this interval not displayed. I spent 35 minutes including chart review and discussion with the NICOLE. Greater than >50% of time spent in direct counseling and coordination of care including discussion of chemo, juan a e effects, infx risk, fluids, bleeding and monitoring. Madeline Kevin MD, MSW - 03/08/2017 4:03 PM PSTName:Rhea Hutchison Date: td : 1965 Problem Identified: Anxiety/depression and financial issues Met with Rhea today and discussed the above problems. Rhea is experiencing difficulty in this area due to relapse and a limited income. Patient states that she got up and walked today and this helps her feel better and less anxious. Provided a cafeteria card and an appl ication for the [employer] Travel Aid Program. Plan/Intervention: Coordination of resources and emotional support. Social work will plan to be available for support and assistance as needed. Madeline Castillo, COURT INTERPRETER,IT APPLICATION ADMINISTRATOR [place] [id number] [facility] Mailcode: [id number] [place] [address] Cierra Flowers PA - 03/08/2017 2:26 PM PSTFormatting of this note may be differen t from the original. Daily NPP Note - Hematologic Malignancies/Chemo Admit [facility] Attending: Angela Goldberg MD PCP: Saurav De Los Santos NP Date of Admission: 03/02/17 Hematologic Malignancy: AML Reason for admission: Relapsed AML, admitted for w/u and treatment ID: 51yo woman with relapsed AML admitted for treatment. PMH includes COPD, depression/anxi ety, learning disability, bladder spasms and hypothyroidism. 24 Hour Events/Current Daily Plan: -AML, relapsed post induction and consolidation for favorable risk AML (+NPM1, +FLT3-TKD) a dmitted with WBC >100K. -Day 4 of reinduction with Flag-Arlette + Midostaurin (days 8-21) -Pancytopenia r/t relapsed disease: Standard Hct transfusion protocol. Keep platelets >20K d/t epistaxis, scleral hemarrohage and PICC site bleeding. -Bleeding (epistaxis and PICC oozing) likely due to decreased platelet production and likel y DIC: now improved. Stopped tranexamic acid 03/07. INR improved s/p vitamin K, Keep platelet s >20K -Non-neutropenic fever: present on admission and continued x 3 days, possibly disease relat ed fevers vs PNA. Blood cx 03/03 negative. UA clear. CXR as below. -Continue Cefepime (03/02- ) -GGO and consolidative opacities in lungs: Abnormal CXR (03/05) bilateral GGO predominantly in the perihilar regions, Follow up CT Chest (03/05) with extensive bilateral GG and consolid ative opacities new compared to 03/02/2017, possibly r/t leukostasis vs. DAH vs. infection. L actate 03/04= 0.8. -Treating leukemia as above -Abx as above -Risk for TLS, no signs of TLS at this time. Stop allopurinol today. MIVF at 50ml/hr. Labs now daily only. -FVO r/t MIVF: decreased IVF today and give lasix 20mg IV x 1 today. -Psychosocial: Difficulty coping with relapsed disease. Social work following. Subjective: Feeling more energetic today. Sitting up in chair and feels like she can walk i n the fu today. Objective: Last Vitals: BP 158/75 | Pulse 68 | Temp 36.5 C (97.7 F) | RR 16 | Ht 1.6 m (5' 3") | W t 97.2 kg (214 lb 4.6 oz) | SpO2 98% | BMI 37.96 kg/(m^2) 24 Hour Vital Min/Max: Systolic (24hrs), Av , Min:129 , Max:173 Diastolic (24hrs), Av, Min:69, Max:89 Pulse Min: 68 Max: 83 Temp Min: 36.2 C (97.2 F) Max: 36.6 C (97.9 F) Resp Min: 16 Max: 16 SpO2 Min: 89 % Max: 99 % Intake/Output Summary (Last 24 hours) at 03/08/17 1426 Last data filed at 03/08/17 1400 Gross per 24 hour Intake 4073 ml Output 3500 ml Net 573 ml Physical Exam: General: This is a female in NAD. Lying in bed. HEENT: PERRL. Lateral scleral hemorrhages bilaterally. Mucosa pink and moist without eryt kita or exudate. Skin: No rash, lesions noted. Scattered ecchymoses on BUE & petechiae on BLE Chest: Lungs mildly diminished with rhonchi to auscultation bilat. CV: RRR, no murmurs. Abdomen: S/NT/ND with NABS. No HSM appreciated. Extremities: Pulses strong and equal bilaterally. No c/c/e. NeuroPsych: Alert and oriented x 3. Grossly nonfocal exam. CVC: PICC line with pressure dressing on due to bleeding at site. Gauze wrap around dressi ng with scant dry blood Recent Labs 03/06/1722603/06/17219903/07/1759903/07/17 2315 NA 139 | 139 < > 141 | 141 142 140 K 4.6 | 4.6 < > 3.7 | 3.7 4.1 4.1 CL 102 | 102 < > 109* | 109* 109* 107 BICARB 29 | 29 < > 26 | 26 25 26 BUN 14 | 14 < > 20 | 20 20 22* CR 0.49* | 0.49* < > 0.49* | 0.49* 0.54* 0.43* GLU 150* | 150* < > 153* | 153* 171* 166* CA 8.0* | 8.0* < > 6.9* | 6.9* 7.6* 7.4* AST 82* -- 65* -- 42* ALT 41 -- 33 -- 38 AP 301* -- 238* -- 221* TBILI 0.6 -- 0.6 -- 0.7 TP 5.9* -- 5.2* -- 5.5* ALB 2.5* -- 2.2* -- 2.6* < > = values in this interval not displayed. Recent Labs 03/04/17 2330 03/06/1722603/06/17219903/07/17 0603/07/17 2315 WBC 7.66 < > 3.38* < > 0.54* 0.36* 0.16* RBC 2.72* < > 2.66* < > 2.21* 2.34* 2.15* HB 8.5* < > 8.6* < > 7.1* 7.3* 6.8* HCT 25.6* < > 25.0* < > 21.1* 22.4* 19.8* PLT 5* < > 26* < > 23* 16* 17* NEUTROPERC 10.5* -- 36.2* -- 38.7* -- -- LYMPHPERC 14.9* -- 18.4 -- 12.6* -- -- MONOPERC 7.0 -- 3.3* -- 1.8* -- -- BASOPERC 0.0 -- 0.0 -- 0.0 -- -- EOSPERC 0.0* -- 0.0* -- 0.0* -- -- < > = values in this interval not displayed. Meds: Reviewed on rounds, see current MAR for medication list SUMMARY OF PATIENT'S HOSPITALIZATION Past Medical History: Rhea Hutchison is a 50 year old woman with history of COPD, depression, bladder spasms, hypoth yroidism and AML s/p induction 7+3+dasatinib and MiDAC consolidation (Apr 2016) who present s with AML recurrence. She is here with her and reports that she has had increasing diffuse body pains for approximately the past month. She was seen in her oncology clinic on 03/01 where she was noted to have a WBC 103K, up from her previously normal 5K in November. She reports that she has had increasing fatigue, nausea, vomiting, headache and now a sore at t he base of her inferior incisors in her mouth that occasionally bleed. She has also develop ed petechiae across her abdomen. She was admitted to [facility] where CXR was consistent with pulmonary leukostasis. Per Ca reEverywhere he labs were: WBC of 103,6000 (92% blasts) hgb 13.8 Hct 41.8%, Platelet count o f 10,000, Ldh 4427 U/L (ULN 215 U/L), Bun 14 mg/dL, Scr 0.82 mg/dL. She received fluids,hydroxyurea 2g q4hrs, 3L O2 per minute and a platelet transfusion prior to transfer. She reported no fevers but was febrile upon arrival at [facility]. Review of Systems: Positive for fatigue, night sweats, intermittent non-productive cough, d ecreased appetite, constipation, rash on abdomen, bleeding in mouth Oncology History (adapted from prior heme/onc notes) Last seen at [facility] Apr 2016 for consolidation therapy but per OSH notes, she has had the fol lowing events: Jan 2016 emergent bone marrow bx: bone marrow biopsy and aspiration at [facility] on February 15, 2016 confirmed acute myelogenous leukemia, diploid, positive for FLT-3 tyrosine kinase domai n mutation (also positive for NPM1, DNMT3A, NRAS, NPM1 and TET2 mutations). Induction chemotherapy with conventional 7+3 cytarabine/idarubicin February 16, 2016 with co ntinuous daily dasatinib (Sprycel) complicated by fungal pneumonia, neutropenic fever, hidra denitis suppurativa, and Clostridium Difficile colitis. Repeat bone marrow biopsy on 2015 (day 28); First complete remission. 1. Cycle#3 MiDaC (1200 mg/m Cytarabine) consolidation at [facility] on May 28, 2016. 2. Cycle#4 MiDaC (1000 mg/m Cytarabine ) consolidation at [facility] on June 25, 2016. 3. Bone Marrow Biopsy and Aspiration July 23, 2016 at the [facility] in [place], [place] specimen # [id number] demonstrated ongoing complete remissio n. Molecular analysis was negative for any residual NPM1 mutation positive cells and negativ e for any FLT-3 mutation positive cells (sensitivity is 1 in 20,000). 4. CBC on December 25, 2016; WBC 5,000, Hgb 14.6 gm/dl, Hct 42.7, Platelet 138,000. 5. MRI of right hip on January 25, 2017 in anticipation of right hip replacement; numerou s subcentimeter round marrow repacing lesions within the visualized lower lumbar spine, pelv is, and femurs. 6. CT Chest/Abdomen/Pelvis on February 06, 2017; 3 cm left thyroid mass, no other suggestion of primary neoplasm. 7. Bone scan February 08, 2017; Normal. 8. PET/CT scan on February 27, 2017; diffuse uptake about the spleen and bone marrow. 9. CBC on March 01, 2017; WBC 103,5000 (92% blasts) Hgb 13.8, Hct 41.8%, Platelet count 1 0,000. [id number] U/L, BUN 14 mg/dL, Scr 0.82 mg/dL. 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 -Cytogenetics: PENDING -Genetrails: PENDING, preliminary report + FLT3 ITD at 90% allele frequency Treatment: -Chemotherapy regimen: received hydrea 03/02-or leukocytosis, then started Flag-Arlette + Midostaurin (Day 1= 03/05/17) -Fludarabine 30mg/m2 (60mg) Daily, Days 1-5 -Idarubicin 8mg/m2 (16mg) Daily, Days 1-3 -Cytarabine 2000mg/m2 (4200mg) Daily, Days 1-5 -Midostaurin 50mg twice daily on Days 8-21 -Chemo Day: 4 -Pt is indicated for transplant with diagnosis of relapsed AML. They may be psychosocial b arriers to stem cell transplant, however will type sibs in meantime while plan is to be dete rmined. #Leukopenia, Anemia, Thrombocytopenia d/t relapsed disease and chemo: -See supportive care #Supportive Care: Growth factor: daily filgrastim per FLAG-Arlette protocol. Labs: Continue to check CBC with diff daily Transfusion parameters: -Transfuse PRBCs for HCT <21% if asymptomatic OR <24% if symptomatic -Transfuse PPH for platelet count <30,000 d/t epistaxis and CVC site bleeding #Bleeding, likely due to decreased platelet production and not DIC: Epistaxis and bleeding from PICC site, noted 03/04. -Keep platelets >30K -Tranexamic acid TID- stopped 03/07 with improved bleeding and corrected INR. -Vitamin K x3 days -Monitor Coags daily Cardiovascular: TTE completed 03/04 with EF=70%. #Sinus tachycardia with hypertension: -Likely multifactorial: tumor lysis, fever, pain, volume depletion, ? Sepsis. No evidence of cardiac ischemia -Not on rate control medications. May be needed if no improvement. #Prolonged QTc: QTc 563 on EKG, was not prolonged on previous admissions. -Will monitor electrolytes and QTc prolonging medications closely. Pulmonary: #Abnormal CXR (03/05) bilateral groundglass opacities predominantly in the perihilar regions , Follow up CT Chest (03/05) with extensive bilateral ground glass and consolidative opacitie s are new compared to 03/02/2017, possibly r/t leukostasis vs. DAH vs. infection. Lactate 03/04= 0.8. -Treat leukemia as above -Abx as above -Keep platelets >20K -Supplemental O2 PRN #COPD: Home inhalers ordered #FVO r/t MIVF: -Decreased MIVF -Diurese PRN, last given 20mg Lasix 03/07. GI: No acute issues Renal: #Risk for TLS, no signs of TLS at this time: -TLS labs daily. -Allopurinol daily stopped 03/08 with leukopenia . -MIVF Neuro/Psych: #Diffuse pain: Likely due to hematologic malignancy. Morphine allergy but per patient other opioids OK. - Tylenol - Oxycodone PRN #Depression/Anxiety: -Continue home duloxetine -Social work following -Lorazepam PRN for anxiety Endocrine: #Hypothyroidism: -Continue home synthroid Infectious Disease: #Non-neutropenic fevers, possibly disease related fevers. BCx 03/03 NGTD, UA clear. CXR with consolidation (see pulm section) possibly from leukostasis vs infection vs DAH. -Continue Cefepime (03/02- ) #Prophylaxis: Bacterial: As above Fungal: Posaconazole Viral: Acyclovir PCP: Not indicated at this time Fluid/Nutrition/Lytes: #Nutrition: Regular diet, No Madeline's yogurt or Kefir #Fluid: NS at 50 mL/hr #Lytes; Continue to check chemistries daily. Replace per supportive care protocol. Disposition: Admitted for further work-up and treatment for relapsed AML. Anticipate 3-[address] [facility] admission. Cierra Flowers PA-C [facility] [address] [facility] Mailcode: [id number] [facility] [place] [id number] Angela Goldberg MD - 03/08/2017 9:33 AM PSTFormatting of this note may be different from th e original. 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 Starting FLAG-Arlette on 03/05/17 I rounded today, 03/08/17, in conjunction with the Advanced Practice Provider. I saw the patient, reviewed the history and relevant studies and developed an assessment an d plan. Subjective/Objective: feeling better with chemo. Appetite increased and wants to walk more ROS otherwise negative Summary of day's events and plan: day 4 of FLAG-Arlette - fluids at 50 -> lasix today and monitor - breathing improved - afebrile on cefepime - bleeding resolved, slowly reduce plt parameters - previous FLT3 TKD and now ITD -> add midostaurin days 8-21 - acyclovir and posa ppx - monitor closely at jacquelin Please see the Advanced Practice Provider documentation from today for the details regardin g the assessment and plan. Active Problems: Patients Hospital Problem List: Active Hospital Problems 1) COPD (chronic obstructive pulmonary disease) ([facility]) 2) Anxiety and depression 3) AML (acute myeloid leukemia) ([facility]) 4) Learning disability 5) Neutropenic fever ([facility]) 6) Abnormal CXR Ht 1.6 m (5' 3"), Wt 97.2 kg (214 lb 4.6 oz), BP 158/75, Pulse 68, Temperature 36.5 C (97 .7 F), RR 16, SpO2 98%, BMI 37.96 kg/(m^2). Focused Exam: nad, conjunctival hemorrhage, op clear, cta b, rrr no m/r/g, soft abd, 1+ joselyn ma Intake/Output Summary (Last 24 hours) at 03/08/17 0933 Last data filed at 03/08/17 0800 Gross per 24 hour Intake 3787.17 ml Output 3350 ml Net 437.17 ml Recent Labs 03/06/17 0227 03/06/17 2200 03/07/17 0600 03/07/17 2315 NA 139 | 139 < > 141 | 141 142 140 K 4.6 | 4.6 < > 3.7 | 3.7 4.1 4.1 CL 102 | 102 < > 109* | 109* 109* 107 BICARB 29 | 29 < > 26 | 26 25 26 BUN 14 | 14 < > 20 | 20 20 22* CR 0.49* | 0.49* < > 0.49* | 0.49* 0.54* 0.43* GLU 150* | 150* < > 153* | 153* 171* 166* CA 8.0* | 8.0* < > 6.9* | 6.9* 7.6* 7.4* AST 82* -- 65* -- 42* ALT 41 -- 33 -- 38 AP 301* -- 238* -- 221* TBILI 0.6 -- 0.6 -- 0.7 TP 5.9* -- 5.2* -- 5.5* ALB 2.5* -- 2.2* -- 2.6* < > = values in this interval not displayed. Recent Labs 03/04/17 2330 03/06/17 0227 03/06/17 2200 03/07/17 0600 03/07/17 2315 WBC 7.66 < > 3.38* < > 0.54* 0.36* 0.16* RBC 2.72* < > 2.66* < > 2.21* 2.34* 2.15* HB 8.5* < > 8.6* < > 7.1* 7.3* 6.8* HCT 25.6* < > 25.0* < > 21.1* 22.4* 19.8* PLT 5* < > 26* < > 23* 16* 17* NEUTROPERC 10.5* -- 36.2* -- 38.7* -- -- LYMPHPERC 14.9* -- 18.4 -- 12.6* -- -- MONOPERC 7.0 -- 3.3* -- 1.8* -- -- BASOPERC 0.0 -- 0.0 -- 0.0 -- -- EOSPERC 0.0* -- 0.0* -- 0.0* -- -- < > = values in this interval not displayed. I spent 35 minutes including chart review and discussion with the NICOLE. Greater than >50% of time spent in direct counseling and coordination of care including discussion of chemo, juan a e effects, infx risk, fluids, bleeding and monitoring. Cierra Flowers PA - 03/07/2017 2:24 PM PSTFormatting of this note may be differen t from the original. Daily NPP Note - Hematologic Malignancies/[facility]o [facility] Attending: Angela Goldberg MD PCP: Saurav De Los Santos NP Date of Admission: 03/02/17 Hematologic Malignancy: AML Reason for admission: Relapsed AML, admitted for w/u and treatment ID: 51yo woman with relapsed AML admitted for treatment. PMH includes COPD, depression/anxi ety, learning disability, bladder spasms and hypothyroidism. 24 Hour Events/Current Daily Plan: -AML, relapsed post induction and consolidation for favorable risk AML (+NPM1, +FLT3-TKD) a dmitted with WBC >100K. -Day 3 of reinduction with Flag-Arlette + Midostaurin (days 8-21) -Pancytopenia r/t relapsed disease: Standard Hct transfusion protocol. Keep platelets >30K d/t epistaxis, scleral hemarrohage and PICC site bleeding. -Bleeding (epistaxis and PICC oozing) likely due to decreased platelet production and likel y DIC: improved as of today. Stop tranexamic acid. INR improved s/p vitamin K. -Keep platelets >30K -Non-neutropenic fever: present on admission and continued x 3 days, possibly disease relat ed fevers vs PNA. Blood cx 03/03 negative. UA clear. CXR as below. -Continue Cefepime (03/02- ) -GGO and consolidative opacities in lungs: Abnormal CXR (03/05) bilateral GGO predominantly in the perihilar regions, Follow up CT Chest (03/05) with extensive bilateral GG and consolid ative opacities new compared to 03/02/2017, possibly r/t leukostasis vs. DAH vs. infection. L actate 03/04= 0.8. -Treat leukemia as above -Abx as above -Supplemental O2 PRN -Risk for TLS, no signs of TLS at this time. Continue allopurinol daily. MIVF at 75ml/hr. L abs now daily only. -FVO r/t MIVF: decreased IVF today and give lasix 20mg IV x 1 today. -Psychosocial: Difficulty coping with relapsed disease. Social work following. Subjective: no further nose bleeding. Feels very wiped out and tired but better since yeste rday. Objective: Last Vitals: BP 139/77 | Pulse 76 | Temp 36.3 C (97.3 F) | RR 16 | Ht 1.6 m (5' 3") | W t 97.2 kg (214 lb 4.6 oz) | SpO2 97% | BMI 37.96 kg/(m^2) 24 Hour Vital Min/Max: Systolic (24hrs), Av , Min:128 , Max:139 Diastolic (24hrs), Av, Min:68, Max:86 Pulse Min: 72 Max: 93 Temp Min: 36.3 C (97.3 F) Max: 36.7 C (98.1 F) Resp Min: 16 Max: 18 SpO2 Min: 94 % Max: 98 % Intake/Output Summary (Last 24 hours) at 03/07/17 1424 Last data filed at 03/07/17 1300 Gross per 24 hour Intake 4611.75 ml Output 1050 ml Net 3561.75 ml Physical Exam: General: This is a female in NAD. Lying in bed. HEENT: PERRL. Lateral scleral hemorrhages bilaterally. Mucosa pink and moist without eryt kita or exudate. Skin: No rash, lesions noted. Scattered ecchymoses on BUE & petechiae on BLE Chest: Lungs mildly diminished to auscultation bilat. CV: RRR, no murmurs. Abdomen: S/NT/ND with NABS. No HSM appreciated. Extremities: Pulses strong and equal bilaterally. No c/c/e. NeuroPsych: Alert and oriented x 3. Grossly nonfocal exam. CVC: PICC line with pressure dressing on due to bleeding at site. Gauze wrap around dressi ng with scant dry blood Recent Labs 03/04/17 2330 03/05/17 0635 03/06/17 0227 03/06/17 1431 03/06/17 2200 03/07/17 0600 NA 136 | 136 138 < > 139 | 139 < > 139 141 | 141 142 K 3.7 | 3.7 3.6 < > 4.6 | 4.6 < > 3.6 3.7 | 3.7 4.1 CL 100 | 100 103 < > 102 | 102 < > 105 109* | 109* 109* BICARB 26 | 26 27 < > 29 | 29 < > 26 26 | 26 25 BUN 9 | 9 8 < > 14 | 14 < > 21* 20 | 20 20 CR 0.43* | 0.43* 0.47* < > 0.49* | 0.49* < > 0.48* 0.49* | 0.49* 0.54* GLU 117* | 117* 120* < > 150* | 150* < > 159* 153* | 153* 171* CA 7.6* | 7.6* 8.2* < > 8.0* | 8.0* < > 7.8* 6.9* | 6.9* 7.6* AST 99* -- -- 82* -- -- 65* -- ALT 40 -- -- 41 -- -- 33 -- AP 335* -- -- 301* -- -- 238* -- TBILI 0.8 -- -- 0.6 -- -- 0.6 -- TP 5.5* -- -- 5.9* -- -- 5.2* -- ALB 2.3* | 2.3* 2.5* -- 2.5* -- -- 2.2* -- < > = values in this interval not displayed. Recent Labs 03/04/17 2330 03/06/17 0227 03/06/17 1127 03/06/17 2200 03/07/17 0600 WBC 7.66 < > 3.38* < > 1.49* 0.54* 0.36* RBC 2.72* < > 2.66* < > 2.55* 2.21* 2.34* HB 8.5* < > 8.6* < > 8.0* 7.1* 7.3* HCT 25.6* < > 25.0* < > 23.6* 21.1* 22.4* PLT 5* < > 26* < > 31* 23* 16* NEUTROPERC 10.5* -- 36.2* -- -- 38.7* -- LYMPHPERC 14.9* -- 18.4 -- -- 12.6* -- MONOPERC 7.0 -- 3.3* -- -- 1.8* -- BASOPERC 0.0 -- 0.0 -- -- 0.0 -- EOSPERC 0.0* -- 0.0* -- -- 0.0* -- < > = values in this interval not displayed. Meds: Reviewed on rounds, see current MAR for medication list SUMMARY OF PATIENT'S HOSPITALIZATION Past Medical History: Rhea Hutchison is a 50 year old woman with history of COPD, depression, bladder spasms, hypoth yroidism and AML s/p induction 7+3+dasatinib and MiDAC consolidation (Apr 2016) who present s with AML recurrence. She is here with her and reports that she has had increasing diffuse body pains for approximately the past month. She was seen in her oncology clinic on 03/01 where she was noted to have a WBC 103K, up from her previously normal 5K in November. She reports that she has had increasing fatigue, nausea, vomiting, headache and now a sore at t he base of her inferior incisors in her mouth that occasionally bleed. She has also develop ed petechiae across her abdomen. She was admitted to [facility] where CXR was consistent with pulmonary leukostasis. Per Ca reEverywhere he labs were: WBC of 103,6000 (92% blasts) hgb 13.8 Hct 41.8%, Platelet count o f 10,000, Ldh 4427 U/L (ULN 215 U/L), Bun 14 mg/dL, Scr 0.82 mg/dL. She received fluids,hydroxyurea 2g q4hrs, 3L O2 per minute and a platelet transfusion prior to transfer. She reported no fevers but was febrile upon arrival at [facility]. Review of Systems: Positive for fatigue, night sweats, intermittent non-productive cough, d ecreased appetite, constipation, rash on abdomen, bleeding in mouth Oncology History (adapted from prior heme/onc notes) Last seen at [facility] Apr 2016 for consolidation therapy but per OSH notes, she has had the fol lowing events: Jan 2016 emergent bone marrow bx: bone marrow biopsy and aspiration at [facility] on February 15, 2016 confirmed acute myelogenous leukemia, diploid, positive for FLT-3 tyrosine kinase domai n mutation (also positive for NPM1, DNMT3A, NRAS, NPM1 and TET2 mutations). Induction chemotherapy with conventional 7+3 cytarabine/idarubicin February 16, 2016 with co ntinuous daily dasatinib (Sprycel) complicated by fungal pneumonia, neutropenic fever, hidra denitis suppurativa, and Clostridium Difficile colitis. Repeat bone marrow biopsy on 2015 (day 28); First complete remission. 1. Cycle#3 MiDaC (1200 mg/m Cytarabine) consolidation at [facility] on May 28, 2016. 2. Cycle#4 MiDaC (1000 mg/m Cytarabine ) consolidation at [facility] on June 25, 2016. 3. Bone Marrow Biopsy and Aspiration July 23, 2016 at the [facility] in [place], [place] specimen # [id number] demonstrated ongoing complete remissio n. Molecular analysis was negative for any residual NPM1 mutation positive cells and negativ e for any FLT-3 mutation positive cells (sensitivity is 1 in 20,000). 4. CBC on December 25, 2016; WBC 5,000, Hgb 14.6 gm/dl, Hct 42.7, Platelet 138,000. 5. MRI of right hip on January 25, 2017 in anticipation of right hip replacement; numerou s subcentimeter round marrow repacing lesions within the visualized lower lumbar spine, pelv is, and femurs. 6. CT Chest/Abdomen/Pelvis on February 06, 2017; 3 cm left thyroid mass, no other suggestion of primary neoplasm. 7. Bone scan February 08, 2017; Normal. 8. PET/CT scan on February 27, 2017; diffuse uptake about the spleen and bone marrow. 9. CBC on March 01, 2017; WBC 103,5000 (92% blasts) Hgb 13.8, Hct 41.8%, Platelet count 1 0,000. [id number] U/L, BUN 14 mg/dL, Scr 0.82 mg/dL. 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 -Cytogenetics: PENDING -Genetrails: PENDING Treatment: -Chemotherapy regimen: received hydrea 03/02-or leukocytosis, then started Flag-Arlette + Midostaurin (Day 1= 03/05/17) -Fludarabine 30mg/m2 (60mg) Daily, Days 1-5 -Idarubicin 8mg/m2 (16mg) Daily, Days 1-3 -Cytarabine 2000mg/m2 (4200mg) Daily, Days 1-5 -Midostaurin 50mg twice daily on Days 8-21 -Chemo Day: 3 #Leukopenia, Anemia, Thrombocytopenia d/t relapsed disease and chemo: -See supportive care #Supportive Care: Growth factor: daily filgrasti per FLAG-Arlette protocol. Labs: Continue to check CBC with diff daily Transfusion parameters: -Transfuse PRBCs for HCT <21% if asymptomatic OR <24% if symptomatic -Transfuse PPH for platelet count <30,000 d/t epistaxis and CVC site bleeding #Bleeding, likely due to decreased platelet production and not DIC: Epistaxis and bleeding from PICC site, noted 03/04. -Keep platelets >30K -Tranexamic acid TID- stopped 03/07 with improved bleeding and corrected INR. -Vitamin K x3 days -Monitor Coags daily Cardiovascular: TTE completed 03/04 with EF=70%. #Sinus tachycardia with hypertension: -Likely multifactorial: tumor lysis, fever, pain, volume depletion, ? Sepsis. No evidence of cardiac ischemia -Not on rate control medications. May be needed if no improvement. #Prolonged QTc: QTc 563 on EKG, was not prolonged on previous admissions. -Will monitor electrolytes and QTc prolonging medications closely. Pulmonary: #Abnormal CXR (03/05) bilateral groundglass opacities predominantly in the perihilar regions , Follow up CT Chest (03/05) with extensive bilateral ground glass and consolidative opacitie s are new compared to 03/02/2017, possibly r/t leukostasis vs. DAH vs. infection. Lactate 03/04= 0.8. -Treat leukemia as above -Abx as above -Keep platelets >30K -Supplemental O2 PRN #COPD: Home inhalers ordered #FVO r/t MIVF: -Decreased MIVF -Diurese PRN, last given 20mg Lasix 03/07. GI: No acute issues Renal: #Risk for TLS, no signs of TLS at this time: -TLS labs daily. -Allopurinol daily -MIVF Neuro/Psych: #Diffuse pain: Likely due to hematologic malignancy. Morphine allergy but per patient other opioids OK. - Tylenol - Oxycodone PRN #Depression/Anxiety: -Continue home duloxetine -Social work following -Lorazepam PRN for anxiety Endocrine: #Hypothyroidism: -Continue home synthroid Infectious Disease: #Non-neutropenic fevers, possibly disease related fevers. BCx 03/03 NGTD, UA clear. CXR with consolidation (see pulm section) -Continue Cefepime (03/02- ) #Prophylaxis: Bacterial: As above Fungal: Not indicated at this time Viral: Acyclovir PCP: Not indicated at this time Fluid/Nutrition/Lytes: #Nutrition: Regular diet, No Madeline's yogurt or Kefir #Fluid: NS at 50 mL/hr #Lytes; Continue to check chemistries daily. Replace per supportive care protocol. Disposition: Admitted for further work-up and treatment for relapsed AML. Anticipate 3-[address] [facility] admission. Cierra Flowers PA-C [facility] [facility] Mailcode: [id number] [facility] [id number] Angela Goldberg MD - 03/07/2017 10:40 AM PSTFormatting of this note may be different from th e original. 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 Starting FLAG-Arlette on 03/05/17 I rounded today, 03/07/17, in conjunction with the Advanced Practice Provider. I saw the patient, reviewed the history and relevant studies and developed an assessment an d plan. Subjective/Objective: feeling better. Appetite improving. Breathing improved. No further ep istaxis. PICC line okay. ROS otherwise negative Summary of day's events and plan: day 3 of FLAG-Arlette - WBC coming down - bleeding appears to be resolving -> stop tranexamic acid -> cont platelets - PT/INR improving on vit K - previous FLT3 TKD -> will add midostaurin on days 8-21 - lungs improving -> monitor oxygen - cefepime for fevers - acylovir and posa (once Arlette complete) ppx - monitor fluids - cont to monitor closely Please see the Advanced Practice Provider documentation from today for the details regardin g the assessment and plan. Active Problems: Patients Hospital Problem List: Active Hospital Problems 1) COPD (chronic obstructive pulmonary disease) ([facility]) 2) Anxiety and depression 3) AML (acute myeloid leukemia) ([facility]) 4) Learning disability 5) Neutropenic fever ([facility]) 6) Abnormal CXR Ht 1.6 m (5' 3"), Wt 97.2 kg (214 lb 4.6 oz), BP 135/79, Pulse 79, Temperature 36.4 C (97 .5 F), RR 16, SpO2 95%, BMI 37.96 kg/(m^2). Focused Exam: appears improved, conjunctival hemorrhage, OP clear, no epistaxis, crackles a t bases B improved, RRR no M/R/G, abd soft, tr edema Intake/Output Summary (Last 24 hours) at 03/07/17 1041 Last data filed at 03/07/17 0900 Gross per 24 hour Intake 4942.75 ml Output 1400 ml Net 3542.75 ml Recent Labs 03/04/17 2330 03/05/17 0635 03/06/17 0227 03/06/17 1431 03/06/17 2200 03/07/17 0600 NA 136 | 136 138 < > 139 | 139 < > 139 141 | 141 142 K 3.7 | 3.7 3.6 < > 4.6 | 4.6 < > 3.6 3.7 | 3.7 4.1 CL 100 | 100 103 < > 102 | 102 < > 105 109* | 109* 109* BICARB 26 | 26 27 < > 29 | 29 < > 26 26 | 26 25 BUN 9 | 9 8 < > 14 | 14 < > 21* 20 | 20 20 CR 0.43* | 0.43* 0.47* < > 0.49* | 0.49* < > 0.48* 0.49* | 0.49* 0.54* GLU 117* | 117* 120* < > 150* | 150* < > 159* 153* | 153* 171* CA 7.6* | 7.6* 8.2* < > 8.0* | 8.0* < > 7.8* 6.9* | 6.9* 7.6* AST 99* -- -- 82* -- -- 65* -- ALT 40 -- -- 41 -- -- 33 -- AP 335* -- -- 301* -- -- 238* -- TBILI 0.8 -- -- 0.6 -- -- 0.6 -- TP 5.5* -- -- 5.9* -- -- 5.2* -- ALB 2.3* | 2.3* 2.5* -- 2.5* -- -- 2.2* -- < > = values in this interval not displayed. Recent Labs 03/04/17 2330 03/06/17 0227 03/06/17 1127 03/06/17 2200 03/07/17 0600 WBC 7.66 < > 3.38* < > 1.49* 0.54* 0.36* RBC 2.72* < > 2.66* < > 2.55* 2.21* 2.34* HB 8.5* < > 8.6* < > 8.0* 7.1* 7.3* HCT 25.6* < > 25.0* < > 23.6* 21.1* 22.4* PLT 5* < > 26* < > 31* 23* 16* NEUTROPERC 10.5* -- 36.2* -- -- 38.7* -- LYMPHPERC 14.9* -- 18.4 -- -- 12.6* -- MONOPERC 7.0 -- 3.3* -- -- 1.8* -- BASOPERC 0.0 -- 0.0 -- -- 0.0 -- EOSPERC 0.0* -- 0.0* -- -- 0.0* -- < > = values in this interval not displayed. I spent 35 minutes including chart review and discussion with the NICOLE. Greater than >50% of time spent in direct counseling and coordination of care including discussion of chemo, juan a e effects, fluids, fevers, abx, midostaurin and plan. Sarah Katz, CERTIFIED OPHTHALMIC TECHNOLOGIST - 03/06/2017 1:11 PM PSTFormatting of this note may be different from the original. Daily NPP Note - Hematologic Malignancies/Chemo Admit [facility] Attending: Angela Goldberg MD PCP: Saurav De Los Santos NP Date of Admission: 03/02/17 Hematologic Malignancy: AML Reason for admission: Relapsed AML, admitted for w/u and treatment ID: 51yo woman with relapsed AML and PMH includes COPD, depression/anxiety, learning disabi lity, bladder spasms and hypothyroidism. 24 Hour Events/Current Daily Plan: -AML, relapsed post induction and consolidation for favorable risk AML (+NPM1, +FLT3-TKD) A dmitted for work-up and treatment. -PB flow, cytogenetics, genetrails (03/03) PENDING. -Hold on BMBx at this time as she has peripheral blasts and requires general anesthesia fo r biopsies -Flag-Arlette + Midostaurin (days 8-21) currently Day 2 -Leukocytosis, with WBC >100K on presentation: s/p Hydrea (03/02-03/05) discontinued as WBC < 10K and initiated chemotherapy -Pancytopenia r/t relapsed disease: Standard Hct transfusion protocol. Keep platelets >30K d/t epistaxis, scleral hemarrohage and PICC site bleeding. -Bleeding, likely due to decreased platelet production and likely DIC: Epistaxis and bleedi ng from PICC site, noted 03/04. -Keep platelets >30K -Tranexamic acid TID -Vitamin K x3 days, switched to IV 03/06 d/t coagulopathy. -Monitor Coags q8h -Non-neutropenic fevers, possibly disease related fevers. BCx NGTD/PENDING, UA clear. CXR a s below. -Continue Cefepime (03/02- ) -Abnormal CXR (03/05) bilateral GGO predominantly in the perihilar regions, Follow up CT [place] [address] (03/05) with extensive bilateral ground glass and consolidative opacities which are new co mpared to 03/02/2017, possibly r/t leukostasis vs. DAH vs. infection. Lactate 03/04= 0.8. -Treat leukemia as above -Abx as above -Keep platelets >30K -Supplemental O2 PRN -Risk for TLS, no signs of TLS at this time. Continue allopurinol daily. MIVF at 75ml/hr. L abs every 8 hours -FVO r/t MIVF: decreased IVF and diurese PRN, last given Lasix 20 mg IV on 03/05. -Psychosocial: Difficulty coping with relapsed disease. Social work following. Subjective: Less tearful today. Feels better about the support from her family. States she will eat more & walk the hallways today. Discussed about ongoing treatment, plan of care. Objective: Last Vitals: BP 141/82 | Pulse 91 | Temp 36.5 C (97.7 F) | RR 18 | Ht 1.6 m (5' 3") | W t 94.3 kg (207 lb 14.3 oz) | SpO2 96% | BMI 36.83 kg/(m^2) 24 Hour Vital Min/Max: Systolic (24hrs), Av , Min:138 , Max:152 Diastolic (24hrs), Av, Min:79, Max:92 Pulse Min: 91 Max: 113 Temp Min: 36.1 C (97 F) Max: 36.8 C (98.2 F) Resp Min: 18 Max: 28 SpO2 Min: 89 % Max: 98 % Intake/Output Summary (Last 24 hours) at 03/06/17 1311 Last data filed at 03/06/17 1232 Gross per 24 hour Intake 4689.65 ml Output 3900 ml Net 789.65 ml Physical Exam: General: This is a female in NAD. Lying in bed. HEENT: PERRL. Lateral scleral hemorrhages bilaterally. Mucosa pink and moist without eryt kita or exudate. Skin: No rash, lesions noted. Scattered ecchymoses on BUE & petechiae on BLE Chest: Lungs mildly diminished to auscultation bilat. CV: RRR, no murmurs. Abdomen: S/NT/ND with NABS. No HSM appreciated. Extremities: Pulses strong and equal bilaterally. No c/c/e. NeuroPsych: Alert and oriented x 3. Grossly nonfocal exam. CVC: PICC line with pressure dressing on due to bleeding at site. Gauze wrap around dressi ng with scant dry blood Recent Labs 03/03/17221603/04/17 2330 03/05/17 0635 03/05/17 1805 03/06/17 0227 03/06/17 0655 NA 135* | 135* < > 136 | 136 138 < > 137 139 | 139 137 K 3.6 | 3.6 < > 3.7 | 3.7 3.6 < > 3.6 4.6 | 4.6 4.3 CL 101 | 101 < > 100 | 100 103 < > 98 102 | 102 103 BICARB 29 | 29 < > 26 | 26 27 < > 30 29 | 29 28 BUN 12 | 12 < > 9 | 9 8 < > 8 14 | 14 18 CR 0.62 | 0.62 < > 0.43* | 0.43* 0.47* < > 0.43* 0.49* | 0.49* 0.50* GLU 99 | 99 < > 117* | 117* 120* < > 110* 150* | 150* 142* CA 7.4* | 7.4* < > 7.6* | 7.6* 8.2* < > 8.4* 8.0* | 8.0* 8.0* AST 146* -- 99* -- -- -- 82* -- ALT 43 -- 40 -- -- -- 41 -- AP 295* -- 335* -- -- -- 301* -- TBILI 0.8 -- 0.8 -- -- -- 0.6 -- TP 5.3* -- 5.5* -- -- -- 5.9* -- ALB 2.4* | 2.4* < > 2.3* | 2.3* 2.5* -- -- 2.5* -- < > = values in this interval not displayed. Recent Labs 03/03/17221603/04/17 2330 03/06/17 0227 03/06/17 0655 03/06/17 1127 WBC 26.27* < > 7.66 < > 3.38* 2.76* 1.49* RBC 2.88* < > 2.72* < > 2.66* 2.53* 2.55* HB 9.2* < > 8.5* < > 8.6* 7.9* 8.0* HCT 27.2* < > 25.6* < > 25.0* 23.8* 23.6* PLT 12* < > 5* < > 26* 22* 31* NEUTROPERC 7.8* -- 10.5* -- 36.2* -- -- LYMPHPERC 8.7* -- 14.9* -- 18.4 -- -- MONOPERC 11.3* -- 7.0 -- 3.3* -- -- BASOPERC 0.0 -- 0.0 -- 0.0 -- -- EOSPERC 0.0* -- 0.0* -- 0.0* -- -- < > = values in this interval not displayed. Meds: Reviewed on rounds, see current MAR for medication list SUMMARY OF PATIENT'S HOSPITALIZATION Past Medical History: Rhea Hutchison is a 50 year old woman with history of COPD, depression, bladder spasms, hypot hyroidism and AML s/p induction 7+3+dasatinib and MiDAC consolidation (Apr 2016) who presen ts with AML recurrence. She is here with her and reports that she has had increasing diffuse body pains for approximately the past month. She was seen in her oncology clinic on 03/01 where she was noted to have a WBC 103K, up from her previously normal 5K in November. e reports that she has had increasing fatigue, nausea, vomiting, headache and now a sore at the base of her inferior incisors in her mouth that occasionally bleed. She has also develo ped petechiae across her abdomen. She was admitted to [facility] where CXR was consistent with pulmonary leukostasis. Per Ca reEverywhere he labs were: WBC of 103,6000 (92% blasts) hgb 13.8 Hct 41.8%, Platelet count o f 10,000, Ldh 4427 U/L (ULN 215 U/L), Bun 14 mg/dL, Scr 0.82 mg/dL. She received fluids,hydroxyurea 2g q4hrs, 3L O2 per minute and a platelet transfusion prior to transfer. She reported no fevers but was febrile upon arrival at [facility]. Review of Systems: Gen: Positive for fatigue, night sweats CV: No chest pain or history of [place] Resp: Positive for intermittent non-productive cough GI: Positive for decreased appetite. No blood in stools. POsitive for const ipation. : No dysuria Skin: Positive for rash on abdomen Heme: Positive for bleeding in mouth Msk: No recent trauma Endo: No history of diabetes. Positive history of hypothyroidism with known goi ter. All other systems negative. Oncology History (adapted from prior heme/onc notes) Last seen at [facility] Apr 2016 for consolidation therapy but per OSH notes, she has had the fol lowing events: Jan 2016 emergent bone marrow bx: bone marrow biopsy and aspiration at [facility] on February 15, 2016 confirmed acute myelogenous leukemia, diploid, positive for FLT-3 tyrosine kinase domai n mutation (also positive for NPM1, DNMT3A, NRAS, NPM1 and TET2 mutations). Induction chemotherapy with conventional 7+3 cytarabine/idarubicin February 16, 2016 with co ntinuous daily dasatinib (Sprycel) complicated by fungal pneumonia, neutropenic fever, hidra denitis suppurativa, and Clostridium Difficile colitis. Repeat bone marrow biopsy on 2015 (day 28); First complete remission. 1. Cycle#3 MiDaC (1200 mg/m Cytarabine) consolidation at [facility] on May 28, 2016. 2. Cycle#4 MiDaC (1000 mg/m Cytarabine ) consolidation at [facility] on June 25, 2016. 3. Bone Marrow Biopsy and Aspiration July 23, 2016 at the [facility] in [place], [place] specimen # [id number] demonstrated ongoing complete remissio n. Molecular analysis was negative for any residual NPM1 mutation positive cells and negativ e for any FLT-3 mutation positive cells (sensitivity is 1 in 20,000). 4. CBC on December 25, 2016; WBC 5,000, Hgb 14.6 gm/dl, Hct 42.7, Platelet 138,000. 5. MRI of right hip on January 25, 2017 in anticipation of right hip replacement; numerou s subcentimeter round marrow repacing lesions within the visualized lower lumbar spine, pelv is, and femurs. 6. CT Chest/Abdomen/Pelvis on February 06, 2017; 3 cm left thyroid mass, no other suggestion of primary neoplasm. 7. Bone scan February 08, 2017; Normal. 8. PET/CT scan on February 27, 2017; diffuse uptake about the spleen and bone marrow. 9. CBC on March 01, 2017; WBC 103,5000 (92% blasts) Hgb 13.8, Hct 41.8%, Platelet count 1 0,000. [id number] U/L, BUN 14 mg/dL, Scr 0.82 mg/dL. 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) Pertinent Diagnostics: -Peripheral blood flow 03/03/17, WBC>100K with ~90% blasts on presentation -Results: PENDING -Cytogenetics: PENDING -Genetrails: PENDING Treatment: -Chemotherapy regimen: Flag-Arlette + Midostaurin (Day 1= 03/05/17) -Fludarabine 30mg/m2 (60mg) Daily, Days 1-5 -Idarubicin 8mg/m2 (16mg) Daily, Days 1-3 -Cytarabine 2000mg/m2 (4200mg) Daily, Days 1-5 -Midostaurin 50mg twice daily on Days 8-21 -Chemo Day: 2 #Leukocytosis r/t relapsed disease: -s/p Hydroxyurea (03/02-03/05) #Anemia, Thrombocytopenia d/t relapsed disease: -See supportive care #Supportive Care: Growth factor: no growth factors required at this time Labs: Continue to check CBC with diff daily Transfusion parameters: -Transfuse PRBCs for HCT <21% if asymptomatic OR <24% if symptomatic -Transfuse PPH for platelet count <30,000 d/t epistaxis and CVC site bleeding #Bleeding, likely due to decreased platelet production and not DIC: Epistaxis and bleeding from PICC site, noted 03/04. -Keep platelets >30K -Tranexamic acid TID -Vitamin K x3 days -Monitor Coags daily Cardiovascular: TTE completed 03/04 with EF=70%. #Sinus tachycardia with hypertension: -Likely multifactorial: tumor lysis, fever, pain, volume depletion, ? Sepsis. No evidence of cardiac ischemia -Not on rate control medications. May be needed if no improvement. #Prolonged QTc: QTc 563 on EKG, was not prolonged on previous admissions. -Will monitor electrolytes and QTc prolonging medications closely. Pulmonary: #Abnormal CXR (03/05) bilateral groundglass opacities predominantly in the perihilar regions , Follow up CT Chest (03/05) with extensive bilateral ground glass and consolidative opacitie s are new compared to 03/02/2017, possibly r/t leukostasis vs. DAH vs. infection. Lactate 03/04= 0.8. -Treat leukemia as above -Abx as above -Keep platelets >30K -Supplemental O2 PRN #COPD: -Home inhalers ordered #FVO r/t MIVF: -Decreased MIVF -Diurese PRN, last given 20mg Lasix 03/05. GI: No acute issues Renal: #Risk for TLS, no signs of TLS at this time: -TLS labs q8h -Allopurinol daily -MIVF Neuro/Psych: #Diffuse pain: Likely due to hematologic malignancy. Morphine allergy but per patient other opioids OK. - Tylenol - Oxycodone PRN #Depression/Anxiety: -Continue home duloxetine -Social work following -Lorazepam PRN for anxiety Endocrine: #Hypothyroidism: -Continue home synthroid Infectious Disease: #Non-neutropenic fevers, possibly disease related fevers. BCx PENDING, UA clear. CXR with c onsolidation (see pulm section) -Continue Cefepime (03/02- ) #Prophylaxis: Bacterial: As above Fungal: Not indicated at this time Viral: Acyclovir PCP: Not indicated at this time Fluid/Nutrition/Lytes: #Nutrition: Regular diet, No Madeline's yogurt or Kefir #Fluid: NS at 75 mL/hr #Lytes: -Continue to check chemistries daily -Replace per supportive care protocol. Disposition: Admitted for further work-up and treatment for relapsed AML. Anticipate 3-[address] [facility] admission. ISIDRO Rod [facility] [id number] [facility] Mailcode: [facility] [place] [address] Angela Goldberg MD - 03/06/2017 9:55 AM PSTFormatting of this note may be different from th e original. 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 Starting FLAG-Arlette on 03/05/17 I rounded today, 03/06/17, in conjunction with the Advanced Practice Provider. I saw the patient, reviewed the history and relevant studies and developed an assessment an d plan. Subjective/Objective: feeling a little better today. Less tearful. Breathing better. Bleedi ng seems to be better ROS otherwise negative Summary of day's events and plan: day 2 of FLAG-Arlette - responding to increase plt transfusions -> plts>30 - PT/INR rising -> IV vit K - tranexamic acid given oozing - tolerated first dose chemo okay - flow cytometry c/w relapsed AML - previous FLT3 TKD -> will add midostaurin on days 8-21 - lungs improving -> monitor oxygen - reduce cymbalta since may have effect on plts (serotonin) Please see the Advanced Practice Provider documentation from today for the details regardin g the assessment and plan. Active Problems: Patients Hospital Problem List: Active Hospital Problems 1) COPD (chronic obstructive pulmonary disease) (HCC) 2) Anxiety and depression 3) AML (acute myeloid leukemia) (HCC) 4) Learning disability 5) Neutropenic fever (HCC) 6) Abnormal CXR Ht 1.6 m (5' 3"), Wt 94.3 kg (207 lb 14.3 oz), BP 145/80, Pulse 96, Temperature 36.3 C (9 7.3 F), RR 18, SpO2 98%, BMI 36.83 kg/(m^2). Focused Exam: less tearful today, OP clear, no epistaxis, few crackles at base of lungs, RR R no M/r/g, abd soft, 1+ edema Intake/Output Summary (Last 24 hours) at 03/06/17 0955 Last data filed at 03/06/17 0744 Gross per 24 hour Intake 4283.15 ml Output 3850 ml Net 433.15 ml Recent Labs 03/03/17 2217 03/04/17 2330 03/05/17 0635 03/05/17180403/06/1722603/06/1755 NA 135* | 135* < > 136 | 136 138 < > 137 139 | 139 137 K 3.6 | 3.6 < > 3.7 | 3.7 3.6 < > 3.6 4.6 | 4.6 4.3 CL 101 | 101 < > 100 | 100 103 < > 98 102 | 102 103 BICARB 29 | 29 < > 26 | 26 27 < > 30 29 | 29 28 BUN 12 | 12 < > 9 | 9 8 < > 8 14 | 14 18 CR 0.62 | 0.62 < > 0.43* | 0.43* 0.47* < > 0.43* 0.49* | 0.49* 0.50* GLU 99 | 99 < > 117* | 117* 120* < > 110* 150* | 150* 142* CA 7.4* | 7.4* < > 7.6* | 7.6* 8.2* < > 8.4* 8.0* | 8.0* 8.0* AST 146* -- 99* -- -- -- 82* -- ALT 43 -- 40 -- -- -- 41 -- AP 295* -- 335* -- -- -- 301* -- TBILI 0.8 -- 0.8 -- -- -- 0.6 -- TP 5.3* -- 5.5* -- -- -- 5.9* -- ALB 2.4* | 2.4* < > 2.3* | 2.3* 2.5* -- -- 2.5* -- < > = values in this interval not displayed. Recent Labs 03/03/17221603/04/17 2330 03/05/17 18003/06/1722603/06/1755 WBC 26.27* < > 7.66 < > 4.41 3.38* 2.76* RBC 2.88* < > 2.72* < > 2.74* 2.66* 2.53* HB 9.2* < > 8.5* < > 8.6* 8.6* 7.9* HCT 27.2* < > 25.6* < > 25.5* 25.0* 23.8* PLT 12* < > 5* < > 26* 26* 22* NEUTROPERC 7.8* -- 10.5* -- -- 36.2* -- LYMPHPERC 8.7* -- 14.9* -- -- 18.4 -- MONOPERC 11.3* -- 7.0 -- -- 3.3* -- BASOPERC 0.0 -- 0.0 -- -- 0.0 -- EOSPERC 0.0* -- 0.0* -- -- 0.0* -- < > = values in this interval not displayed. I spent 35 minutes including chart review and discussion with the NICOLE. Greater than >50% of time spent in direct counseling and coordination of care including discussion of chemo, WBC , plts, bleeding, and plan. Angela Goldberg MD - 03/05/2017 9:11 PM PSTFormatting of this note may be different from jl cary. 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 Starting FLAG-Arlette on 03/05/17 I rounded today, 03/05/17, in conjunction with the Advanced Practice Provider. I saw the patient, reviewed the history and relevant studies and developed an assessment an d plan. Subjective/Objective: still very upset. Worried about what kids will think. ROS otherwise negative Summary of day's events and plan: relapsed AML -> starting FLAG-Arlette today - increased bleeding overnight -> plts today, oral vit K - TTE with EF 70-75% - PICC line placed - WBC down -> stopped hydrea - flow cytometry c/w relapsed AML per verbal report - genetics and flow from peripheral blood pending (difficult to aspirate) - start FLAG-Arlette today - add midostauring for FLT3 TKD - lungs stable -> suspect leukostasis vs infx -> cont to monitor - monitor closely Please see the Advanced Practice Provider documentation from today for the details regardin g the assessment and plan. Active Problems: Patients Hospital Problem List: Active Hospital Problems 1) COPD (chronic obstructive pulmonary disease) (HCC) 2) Anxiety and depression 3) AML (acute myeloid leukemia) (HCC) 4) Learning disability 5) Neutropenic fever (HCC) 6) Abnormal CXR Ht 1.6 m (5' 3"), Wt 94.3 kg (207 lb 14.3 oz), BP 138/83, Pulse 109, Temperature 36.8 C ( 98.2 F), RR 28, SpO2 94%, BMI 36.83 kg/(m^2). Focused Exam: NAD, OP with blood, CTA with few crackles at bases, RRR no M/R/G, abd soft, b ruises, 1+ edema Intake/Output Summary (Last 24 hours) at 03/05/17 2111 Last data filed at 03/05/17 1800 Gross per 24 hour Intake 4835.9 ml Output 2950 ml Net 1885.9 ml Recent Labs 03/03/17 0029 03/03/17 2217 03/04/17 1441 03/04/17 2330 03/05/17 0635 03/05/17 1305 03/05/17 1805 NA 137 | 137 < > 135* | 135* < > 139 136 | 136 138 137 137 K 3.6 | 3.6 < > 3.6 | 3.6 < > 3.6 3.7 | 3.7 3.6 3.7 3.6 CL 101 | 101 < > 101 | 101 < > 106 100 | 100 103 101 98 BICARB 27 | 27 < > 29 | 29 < > 26 26 | 26 27 30 30 BUN 12 | 12 < > 12 | 12 < > 11 9 | 9 8 7 8 CR 0.58* | 0.58* < > 0.62 | 0.62 < > 0.41* 0.43* | 0.43* 0.47* 0.45* 0.43* GLU 112* | 112* < > 99 | 99 < > 94 117* | 117* 120* 95 110* CA 7.6* | 7.6* < > 7.4* | 7.4* < > 7.4* 7.6* | 7.6* 8.2* 8.1* 8.4* AST 132* -- 146* -- -- 99* -- -- -- ALT 45 -- 43 -- -- 40 -- -- -- AP 272* -- 295* -- -- 335* -- -- -- TBILI 0.5 -- 0.8 -- -- 0.8 -- -- -- TP 5.4* -- 5.3* -- -- 5.5* -- -- -- ALB 2.5* | 2.5* < > 2.4* | 2.4* < > 2.2* 2.3* | 2.3* 2.5* -- -- < > = values in this interval not displayed. Recent Labs 03/03/17 0029 03/03/17 2217 03/04/17 2330 03/05/17 0635 03/05/17 1305 03/05/17 1805 WBC 56.58* < > 26.27* < > 7.66 7.47 6.32 4.41 RBC 3.41* < > 2.88* < > 2.72* 2.88* 2.57* 2.74* HB 10.7* < > 9.2* < > 8.5* 9.2* 8.1* 8.6* HCT 32.0* < > 27.2* < > 25.6* 27.2* 24.0* 25.5* PLT 8* < > 12* < > 5* 14* 13* 26* NEUTROPERC 1.9* -- 7.8* -- 10.5* -- -- -- LYMPHPERC 2.9* -- 8.7* -- 14.9* -- -- -- MONOPERC 10.5* -- 11.3* -- 7.0 -- -- -- BASOPERC 0.0 -- 0.0 -- 0.0 -- -- -- EOSPERC 0.0* -- 0.0* -- 0.0* -- -- -- < > = values in this interval not displayed. I spent 35 minutes including chart review and discussion with the NICOLE. Greater than >50% of time spent in direct counseling and coordination of care including discussion of chemo, juan a e effects, bleeding, fluids, infx, abx, plts, monitoring and plan. Leatha Gilmore [employer] - 03/05/2017 3:49 PM PSTFormatting of this note may be different f rom the original. Daily NPP Note - Hematologic Malignancies/Chemo [facility] Attending: Angela Goldberg MD PCP: Saurav De Los Santos NP Date of Admission: 03/02/17 Hematologic Malignancy: AML Reason for admission: Relapsed AML, admitted for w/u and treatment ID: 51yo woman with relapsed AML and PMH includes COPD, depression/anxiety, learning disabi lity, bladder spasms and hypothyroidism. 24 Hour Events/Current Daily Plan: -AML, relapsed post induction and consolidation for favorable risk AML (+NPM1, +FLT3-TKD) A dmitted for work-up and treatment. -PB flow, cytogenetics, genetrails (03/03) PENDING. -Hold on BMBx at this time as she has peripheral blasts and requires general anesthesia fo r biopsies -Flag-Arlette + Midostaurin (days 8-21) currently Day 1 -Leukocytosis, with WBC >100K on presentation: s/p Hydrea (03/02-03/05) discontinued as WBC < 10K and initiating chemotherapy today -Anemia, thrombocytopenia r/t relapsed disease: Standard Hct transfusion protocol. Keep joaquín telets >30K d/t epistaxis and PICC site bleeding. -Bleeding, likely due to decreased platelet production and not DIC: Epistaxis and bleeding from PICC site, noted 03/04. -Keep platelets >30K -Tranexamic acid TID -Vitamin K x3 days -Monitor Coags daily -Non-neutropenic fevers, possibly disease related fevers. BCx PENDING, UA clear. CXR as bel ow. -Continue Cefepime (03/02- ) -Abnormal CXR (03/05) bilateral groundglass opacities predominantly in the perihilar regions , Follow up CT Chest (03/05) with extensive bilateral ground glass and consolidative opacitie s are new compared to 03/02/2017, possibly r/t leukostasis vs. DAH vs. infection. Lactate 03/04= 0.8. -Treat leukemia as above -Abx as above -Keep platelets >30K -Supplemental O2 PRN -Risk for TLS, no signs of TLS at this time. Continue allopurinol daily. MIVF at 75ml/hr. L abs every 8 hours -FVO r/t MIVF: decreased IVF and diurese PRN, last given 20mg Lasix 03/05. -Psychosocial: Difficulty coping with relapsed disease. Social work following. Subjective: Very tearful again this morning. Nervous about her treatment and being in the h ospital. Asked for the team to contact her brother. Objective: Last Vitals: BP 151/92 | Pulse 113 | Temp 36.3 C (97.3 F) | RR 32 | Ht 1.6 m (5' 3") | Wt 94.3 kg (207 lb 14.3 oz) | SpO2 95% | BMI 36.83 kg/(m^2) 24 Hour Vital Min/Max: Systolic (24hrs), Av , Min:120 , Max:157 Diastolic (24hrs), Av, Min:67, Max:102 Pulse Min: 107 Max: 128 Temp Min: 36.3 C (97.3 F) Max: 39.1 C (102.4 F) Resp Min: 16 Max: 38 SpO2 Min: 94 % Max: 98 % Intake/Output Summary (Last 24 hours) at 03/05/17 1549 Last data filed at 03/05/17 1526 Gross per 24 hour Intake 4361.25 ml Output 1600 ml Net 2761.25 ml Physical Exam: General: This is a female, tearful and dyspneic. Sitting up in recliner. HEENT: PERRL. Scleral hemorrhages. Mucosa pink and moist without erythema or exudate. Skin: No rash, lesions noted. Generalized patchy erythema. Chest: Lungs clear to auscultation bilat. CV: RRR, no murmurs. Abdomen: S/NT/ND with NABS. No HSM appreciated. Extremities: Pulses strong and equal bilaterally. No c/c/e. NeuroPsych: Alert and oriented x 3. Grossly nonfocal exam. CVC: PICC line with pressure dressing on due to bleeding at site. Recent Labs 03/03/17 0029 03/03/17 2217 03/04/17 1441 03/04/17 2330 03/05/17 0635 03/05/17 1305 NA 137 | 137 < > 135* | 135* < > 139 136 | 136 138 137 K 3.6 | 3.6 < > 3.6 | 3.6 < > 3.6 3.7 | 3.7 3.6 3.7 CL 101 | 101 < > 101 | 101 < > 106 100 | 100 103 101 BICARB 27 | 27 < > 29 | 29 < > 26 26 | 26 27 30 BUN 12 | 12 < > 12 | 12 < > 11 9 | 9 8 7 CR 0.58* | 0.58* < > 0.62 | 0.62 < > 0.41* 0.43* | 0.43* 0.47* 0.45* GLU 112* | 112* < > 99 | 99 < > 94 117* | 117* 120* 95 CA 7.6* | 7.6* < > 7.4* | 7.4* < > 7.4* 7.6* | 7.6* 8.2* 8.1* AST 132* -- 146* -- -- 99* -- -- ALT 45 -- 43 -- -- 40 -- -- AP 272* -- 295* -- -- 335* -- -- TBILI 0.5 -- 0.8 -- -- 0.8 -- -- TP 5.4* -- 5.3* -- -- 5.5* -- -- ALB 2.5* | 2.5* < > 2.4* | 2.4* < > 2.2* 2.3* | 2.3* 2.5* -- < > = values in this interval not displayed. Recent Labs 03/03/17 0029 03/03/17 2217 03/04/17 2330 03/05/17 0635 03/05/17 1305 WBC 56.58* < > 26.27* < > 7.66 7.47 6.32 RBC 3.41* < > 2.88* < > 2.72* 2.88* 2.57* HB 10.7* < > 9.2* < > 8.5* 9.2* 8.1* HCT 32.0* < > 27.2* < > 25.6* 27.2* 24.0* PLT 8* < > 12* < > 5* 14* 13* NEUTROPERC 1.9* -- 7.8* -- 10.5* -- -- LYMPHPERC 2.9* -- 8.7* -- 14.9* -- -- MONOPERC 10.5* -- 11.3* -- 7.0 -- -- BASOPERC 0.0 -- 0.0 -- 0.0 -- -- EOSPERC 0.0* -- 0.0* -- 0.0* -- -- < > = values in this interval not displayed. Meds: Reviewed on rounds, see current MAR for medication list SUMMARY OF PATIENT'S HOSPITALIZATION Past Medical History: Rhea Hutchison is a 50 year old woman with history of COPD, depression, bladder spasms, hypot hyroidism and AML s/p induction 7+3+dasatinib and MiDAC consolidation (Apr 2016) who presen with AML recurrence. She is here with her and reports that she has had increasing diffuse body pains for approximately the past month. She was seen in her oncology clinic on 03/01 where she was noted to have a WBC 103K, up from her previously normal 5K in November. e reports that she has had increasing fatigue, nausea, vomiting, headache and now a sore at the base of her inferior incisors in her mouth that occasionally bleed. She has also develo ped petechiae across her abdomen. She was admitted to [facility] where CXR was consistent with pulmonary leukostasis. Per Ca reEverywhere he labs were: WBC of 103,6000 (92% blasts) hgb 13.8 Hct 41.8%, Platelet count o f 10,000, Ldh 4427 U/L (ULN 215 U/L), Bun 14 mg/dL, Scr 0.82 mg/dL. She received fluids,hydroxyurea 2g q4hrs, 3L O2 per minute and a platelet transfusion prior to transfer. She reported no fevers but was febrile upon arrival at [facility]. Review of Systems: Gen: Positive for fatigue, night sweats CV: No chest pain or history of [place] Resp: Positive for intermittent non-productive cough GI: Positive for decreased appetite. No blood in stools. POsitive for const ipation. : No dysuria Skin: Positive for rash on abdomen Heme: Positive for bleeding in mouth Msk: No recent trauma Endo: No history of diabetes. Positive history of hypothyroidism with known goi ter. All other systems negative. Oncology History (adapted from prior heme/onc notes) Last seen at [facility] Apr 2016 for consolidation therapy but per OSH notes, she has had the fol lowing events: Jan 2016 emergent bone marrow bx: bone marrow biopsy and aspiration at [facility] on February 15, 2016 confirmed acute myelogenous leukemia, diploid, positive for FLT-3 tyrosine kinase domai n mutation (also positive for NPM1, DNMT3A, NRAS, NPM1 and TET2 mutations). Induction chemotherapy with conventional 7+3 cytarabine/idarubicin February 16, 2016 with co ntinuous daily dasatinib (Sprycel) complicated by fungal pneumonia, neutropenic fever, hidra denitis suppurativa, and Clostridium Difficile colitis. Repeat bone marrow biopsy on 2015 (day 28); First complete remission. 1. Cycle#3 MiDaC (1200 mg/m Cytarabine) consolidation at [facility] on May 28, 2016. 2. Cycle#4 MiDaC (1000 mg/m Cytarabine ) consolidation at [facility] on June 25, 2016. 3. Bone Marrow Biopsy and Aspiration July 23, 2016 at the [facility] in [place], [place] specimen # [id number] demonstrated ongoing complete remissio n. Molecular analysis was negative for any residual NPM1 mutation positive cells and negativ e for any FLT-3 mutation positive cells (sensitivity is 1 in 20,000). 4. CBC on December 25, 2016; WBC 5,000, Hgb 14.6 gm/dl, Hct 42.7, Platelet 138,000. 5. MRI of right hip on January 25, 2017 in anticipation of right hip replacement; numerou s subcentimeter round marrow repacing lesions within the visualized lower lumbar spine, pelv is, and femurs. 6. CT Chest/Abdomen/Pelvis on February 06, 2017; 3 cm left thyroid mass, no other suggestion of primary neoplasm. 7. Bone scan February 08, 2017; Normal. 8. PET/CT scan on February 27, 2017; diffuse uptake about the spleen and bone marrow. 9. CBC on March 01, 2017; WBC 103,5000 (92% blasts) Hgb 13.8, Hct 41.8%, Platelet count 1 0,000. [id number] U/L, BUN 14 mg/dL, Scr 0.82 mg/dL. 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) Pertinent Diagnostics: -Peripheral blood flow 03/03/17, WBC>100K with ~90% blasts on presentation -Results: PENDING -Cytogenetics: PENDING -Genetrails: PENDING Treatment: -Chemotherapy regimen: Flag-Arlette + Midostaurin (Day 1= 03/05/17) -Fludarabine 30mg/m2 (60mg) Daily, Days 1-5 -Idarubicin 8mg/m2 (16mg) Daily, Days 1-3 -Cytarabine 2000mg/m2 (4200mg) Daily, Days 1-5 -Midostaurin 50mg twice daily on Days 8-21 -Chemo Day: 1 #Leukocytosis r/t relapsed disease: -s/p Hydroxyurea (03/02-03/05) #Anemia, Thrombocytopenia d/t relapsed disease: -See supportive care #Supportive Care: Growth factor: no growth factors required at this time Labs: Continue to check CBC with diff daily Transfusion parameters: -Transfuse PRBCs for HCT <21% if asymptomatic OR <24% if symptomatic -Transfuse PPH for platelet count <30,000 d/t epistaxis and CVC site bleeding #Bleeding, likely due to decreased platelet production and not DIC: Epistaxis and bleeding from PICC site, noted 03/04. -Keep platelets >30K -Tranexamic acid TID -Vitamin K x3 days -Monitor Coags daily Cardiovascular: TTE completed 03/04 with EF=70%. #Sinus tachycardia with hypertension: -Likely multifactorial: tumor lysis, fever, pain, volume depletion, ? Sepsis. No evidence of cardiac ischemia -Not on rate control medications. May be needed if no improvement. #Prolonged QTc: QTc 563 on EKG, was not prolonged on previous admissions. -Will monitor electrolytes and QTc prolonging medications closely. Pulmonary: #Abnormal CXR (03/05) bilateral groundglass opacities predominantly in the perihilar regions , Follow up CT Chest (03/05) with extensive bilateral ground glass and consolidative opacitie s are new compared to 03/02/2017, possibly r/t leukostasis vs. DAH vs. infection. Lactate 03/04= 0.8. -Treat leukemia as above -Abx as above -Keep platelets >30K -Supplemental O2 PRN #COPD: -Home inhalers ordered #FVO r/t MIVF: -Decreased MIVF -Diurese PRN, last given 20mg Lasix 03/05. GI: No acute issues Renal: #Risk for TLS, no signs of TLS at this time: -TLS labs every 8 hours -Allopurinol daily -MIVF Neuro/Psych: #Diffuse pain: Likely due to hematologic malignancy. Morphine allergy but per patient other opioids OK. - Tylenol - Oxycodone PRN #Depression/Anxiety: -Continue home duloxetine -Social work following -Lorazepam PRN for anxiety Endocrine: #Hypothyroidism: -Continue home synthroid Infectious Disease: #Non-neutropenic fevers, possibly disease related fevers. BCx PENDING, UA clear. CXR with c onsolidation (see pulm section) -Continue Cefepime (03/02- ) #Prophylaxis: Bacterial: As above Fungal: Not indicated at this time Viral: Acyclovir PCP: Not indicated at this time Fluid/Nutrition/Lytes: #Nutrition: Regular diet, No Madeline's yogurt or Kefir #Fluid: NS at 75 mL/hr #Lytes: -Continue to check chemistries daily -Replace per supportive care protocol. Disposition: Admitted for further work-up and treatment for relapsed AML. Anticipate 3-[address] [facility] admission. Leatha Gilmore NP [address] Mailcode: [place] [address] Madeline Castillo, [facility] [place] 03/05/2017 3:00 PM PSTName:Rhea Hutchison Date: td : 1965 Reason for Referral: Relapsed leukemia, referral from RN on 13k, as pt was crying today in the room and wanted emotional support. Current Living Situation: Resides in [place] with , Charles, of 9 years. Current Social Supports: Supports include pt's , 2 adult children (daughter, Magalis , who is 26 yo, and son 21yo) who live in [place] and her 3 grandchildren (ages 3, 4, and 6 yo). Patient's is staying with her, but is not in the room during our visit. Mental Health History: Pt has a diagnosis previously of anxiety and depression per her repo rt. She has been taken off the Cymbalta due to a adverse affect on her counts. She sees her counselor and psychiatrist every two weeks. She finds counseling and support very helpful. T mayra she is very teary with her primary concerns of dying and not being able to see her danny cabral. Spirituality: Patient states that she has a strong jensen, however she is questioning God du e to her relapse. She is agreeable to a Supervisor Felling Bucking visit. Plan/Intervention: Counseling Social work will plan to be available for support and assistance as needed. Madeline Castillo, COURT INTERPRETER, IT APPLICATION ADMINISTRATOR [facility] [address] [facility] Mailcode: [address] [place] [address] Angela Goldberg MD - 03/04/2017 4:06 PM PSTFormatting of this note may be different from jl baker original. 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 I rounded today, 03/04/17, in conjunction with the Advanced Practice Provider. I saw the patient, reviewed the history and relevant studies and developed an assessment an d plan. Subjective/Objective: tearful today, not feeling good. Doesn't want to be in hospital. ROS otherwise negative Summary of day's events and plan: relapsed AML - PICC line today - fevers -> cefepime - hydrea 2gm Q12 -> WBC down and stable - TTE today - anticipate starting FLAG-Arlette -> G tonight - sending flow and genetics on peripheral blood due to very difficult marrows - add midostaurin after chemo for FLT3 TKD - review results and anticipate chemo tomorrow if pt still willing to receive - CT chest given opacities on CXR Please see the Advanced Practice Provider documentation from today for the details regardin g the assessment and plan. Ht 1.6 m (5' 3"), Wt 94.1 kg (207 lb 6.4 oz), BP 133/76, Pulse 105, Temperature 36.9 C (9 8.4 F), RR 24, SpO2 98%, BMI 36.74 kg/(m^2). Focused Exam: tearful, NAD, OP clear, few crackles at bases, RRR no M//r/g, abd soft, tr ed penny Intake/Output Summary (Last 24 hours) at 03/04/17 1606 Last data filed at 03/04/17 1517 Gross per 24 hour Intake 5150.93 ml Output 3675 ml Net 1475.93 ml Recent Labs 03/02/17 18003/03/172803/03/17221603/04/17 0836 03/04/17 1441 NA 134* 137 | 137 < > 135* | 135* 134* 139 K 3.9 3.6 | 3.6 < > 3.6 | 3.6 4.1 3.6 CL 96* 101 | 101 < > 101 | 101 101 106 BICARB 30 27 | 27 < > 29 | 29 25 26 BUN 13 12 | 12 < > 12 | 12 12 11 CR 0.63 0.58* | 0.58* < > 0.62 | 0.62 0.43* 0.41* GLU 108* 112* | 112* < > 99 | 99 92 94 CA 7.5* 7.6* | 7.6* < > 7.4* | 7.4* 7.6* 7.4* AST 158* 132* -- 146* -- -- ALT 47 45 -- 43 -- -- AP 289* 272* -- 295* -- -- TBILI 0.6 0.5 -- 0.8 -- -- TP 5.8* 5.4* -- 5.3* -- -- ALB 2.7* 2.5* | 2.5* < > 2.4* | 2.4* 2.3* 2.2* < > = values in this interval not displayed. Recent Labs 03/02/17180103/03/172803/03/17221603/04/17 0836 03/04/17 1441 WBC 85.72* 56.58* < > 26.27* 15.36* 10.59 RBC 3.59* 3.41* < > 2.88* 2.89* 2.57* HB 11.3* 10.7* < > 9.2* 9.3* 8.2* HCT 33.5* 32.0* < > 27.2* 27.1* 24.6* PLT 11* 8* < > 12* 4* 11* NEUTROPERC 2.6* 1.9* -- 7.8* -- -- LYMPHPERC 5.2* 2.9* -- 8.7* -- -- MONOPERC 12.2* 10.5* -- 11.3* -- -- BASOPERC 0.0 0.0 -- 0.0 -- -- EOSPERC 0.0* 0.0* -- 0.0* -- -- < > = values in this interval not displayed. I spent 35 minutes including chart review and discussion with the NICOLE. Greater than >50% of time spent in direct counseling and coordination of care including discussion of AML, chemo , PICC, treatment options and plan. Edy Peter - 03/04/2017 10:34 AM PSTTransthoracic echocardiogram completed. Final report to follow. Leatha Gilmore NP - 03/04/2017 8:13 AM PSTFormatting of this note may be different f rom the original. Daily NPP Note - Hematologic Malignancies/Chemo [facility] Attending: Angela Goldberg MD PCP: Saurav De Los Santos NP Date of Admission: 03/02/17 Hematologic Malignancy: AML Reason for admission: Relapsed AML, admitted for w/u and treatment ID: 51yo woman with relapsed AML and PMH includes COPD, depression/anxiety, learning disabi lity, bladder spasms and hypothyroidism. 24 Hour Events/Current Daily Plan: -AML, relapsed post induction and consolidation for favorable risk AML (+NPM1, +FLT3-TKD) A dmitted for work-up and treatment. PB flow, cytogenetics, genetrails (03/03) PENDING. -Hold on BMBx at this time as she has peripheral blasts and requires general anesthesia fo r biopsies -Treatment TBD, likely re-induction (Flag-Arlette + Midostaurin) chemotherapy followed by allo transplant vs palliative chemotherapy -Leukocytosis, with WBC >100K on presentation: Continue Hydrea 2g [id number]. -Anemia, thrombocytopenia r/t relapsed disease: Standard transfusion protocol. -Non-neutropenic fevers, possibly disease related fevers. BCx PENDING, UA clear. CXR with i ncreased extensive bilateral groundglass opacities predominantly in the perihilar regions (c oncern for infection vs. DAH vs. Pulmonary leukostasis) -Chest CT 03/04 PENDING -Continue Cefepime (03/02- ) -Risk for TLS, no signs of TLS at this time. Continue allopurinol daily. MIVF at 75ml/hr. L abs every 8 hours -Psychosocial: Difficulty coping with relapsed disease. Social work following. Subjective: Very upset and afraid this morning. She is unsure if she wants to continue wit h chemotherapy. Very tearful and states, "I was doing so well". Objective: Last Vitals: BP 122/59 | Pulse 116 | Temp 37.1 C (98.8 F) | RR 22 | Ht 1.6 m (5' 3") | Wt 94.1 kg (207 lb 6.4 oz) | SpO2 94% | BMI 36.74 kg/(m^2) 24 Hour Vital Min/Max: Systolic (24hrs), Av , Min:116 , Max:165 Diastolic (24hrs), Av, Min:59, Max:81 Pulse Min: 110 Max: 130 Temp Min: 36.3 C (97.3 F) Max: 38.9 C (102 F) Resp Min: 20 Max: 28 SpO2 Min: 94 % Max: 96 % Intake/Output Summary (Last 24 hours) at 03/04/17 0814 Last data filed at 03/04/17 0806 Gross per 24 hour Intake 5391.68 ml Output 3475 ml Net 1916.68 ml Physical Exam: General: This is a female, tearful and dyspneic. Lying in bed. HEENT: PERRL. Sclerae anicteric. Mucosa pink and moist without erythema or exudate. Skin: No rash, lesions noted. Chest: Lungs clear to auscultation bilat. CV: RRR, no murmurs. Abdomen: S/NT/ND with NABS. No HSM appreciated. Extremities: Pulses strong and equal bilaterally. No c/c/e. NeuroPsych: Alert and oriented x 3. Grossly nonfocal exam. CVC: PIVs in place. Recent Labs 03/02/17 1802 03/03/17 0029 03/03/17 1016 03/03/17 1518 03/03/17 2217 NA 134* 137 | 137 < > 136 132* 135* | 135* K 3.9 3.6 | 3.6 < > 3.7 4.3 3.6 | 3.6 CL 96* 101 | 101 < > 101 99 101 | 101 BICARB 30 27 | 27 < > 29 28 29 | 29 BUN 13 12 | 12 < > 15 14 12 | 12 CR 0.63 0.58* | 0.58* < > 0.60 0.62 0.62 | 0.62 GLU 108* 112* | 112* < > 114* 105* 99 | 99 CA 7.5* 7.6* | 7.6* < > 7.3* 7.3* 7.4* | 7.4* AST 158* 132* -- -- -- 146* ALT 47 45 -- -- -- 43 AP 289* 272* -- -- -- 295* TBILI 0.6 0.5 -- -- -- 0.8 TP 5.8* 5.4* -- -- -- 5.3* ALB 2.7* 2.5* | 2.5* < > 2.4* 2.4* 2.4* | 2.4* < > = values in this interval not displayed. Recent Labs 03/02/17 1802 03/03/17 0029 03/03/17 1016 03/03/17 1518 03/03/17 2217 WBC 85.72* 56.58* 35.04* 32.93* 26.27* RBC 3.59* 3.41* 3.04* 3.07* 2.88* HB 11.3* 10.7* 9.7* 9.7* 9.2* HCT 33.5* 32.0* 28.6* 28.9* 27.2* PLT 11* 8* 75* 12* 12* NEUTROPERC 2.6* 1.9* -- -- 7.8* LYMPHPERC 5.2* 2.9* -- -- 8.7* MONOPERC 12.2* 10.5* -- -- 11.3* BASOPERC 0.0 0.0 -- -- 0.0 EOSPERC 0.0* 0.0* -- -- 0.0* Meds: Reviewed on rounds, see current MAR for medication list SUMMARY OF PATIENT'S HOSPITALIZATION Past Medical History: Rhea Hutchison is a 50 year old woman with history of COPD, depression, bladder spasms, hypot hyroidism and AML s/p induction 7+3+dasatinib and MiDAC consolidation (Apr 2016) who presen ts with AML recurrence. She is here with her and reports that she has had increasing diffuse body pains for approximately the past month. She was seen in her oncology clinic on 03/01 where she was noted to have a WBC 103K, up from her previously normal 5K in November. e reports that she has had increasing fatigue, nausea, vomiting, headache and now a sore at the base of her inferior incisors in her mouth that occasionally bleed. She has also develo ped petechiae across her abdomen. She was admitted to [facility] where CXR was consistent with pulmonary leukostasis. Per Ca reEverywhere he labs were: WBC of 103,6000 (92% blasts) hgb 13.8 Hct 41.8%, Platelet count o f 10,000, Ldh 4427 U/L (ULN 215 U/L), Bun 14 mg/dL, Scr 0.82 mg/dL. She received fluids,hydroxyurea 2g q4hrs, 3L O2 per minute and a platelet transfusion prior to transfer. She reported no fevers but was febrile upon arrival at [facility]. Review of Systems: Gen: Positive for fatigue, night sweats CV: No chest pain or history of [place] Resp: Positive for intermittent non-productive cough GI: Positive for decreased appetite. No blood in stools. POsitive for const ipation. : No dysuria Skin: Positive for rash on abdomen Heme: Positive for bleeding in mouth Msk: No recent trauma Endo: No history of diabetes. Positive history of hypothyroidism with known goi ter. All other systems negative. Oncology History (adapted from prior heme/onc notes) Last seen at [facility] Apr 2016 for consolidation therapy but per OSH notes, she has had the fol lowing events: Jan 2016 emergent bone marrow bx: bone marrow biopsy and aspiration at [facility] on February 15, 2016 confirmed acute myelogenous leukemia, diploid, positive for FLT-3 tyrosine kinase domai n mutation (also positive for NPM1, DNMT3A, NRAS, NPM1 and TET2 mutations). Induction chemotherapy with conventional 7+3 cytarabine/idarubicin February 16, 2016 with co ntinuous daily dasatinib (Sprycel) complicated by fungal pneumonia, neutropenic fever, hidra denitis suppurativa, and Clostridium Difficile colitis. Repeat bone marrow biopsy on 2015 (day 28); First complete remission. 1. Cycle#3 MiDaC (1200 mg/m Cytarabine) consolidation at [facility] on May 28, 2016. 2. Cycle#4 MiDaC (1000 mg/m Cytarabine ) consolidation at [facility] on June 25, 2016. 3. Bone Marrow Biopsy and Aspiration July 23, 2016 at the [facility] in [place], [place] specimen # [id number] demonstrated ongoing complete remissio n. Molecular analysis was negative for any residual NPM1 mutation positive cells and negativ e for any FLT-3 mutation positive cells (sensitivity is 1 in 20,000). 4. CBC on December 25, 2016; WBC 5,000, Hgb 14.6 gm/dl, Hct 42.7, Platelet 138,000. 5. MRI of right hip on January 25, 2017 in anticipation of right hip replacement; numerou s subcentimeter round marrow repacing lesions within the visualized lower lumbar spine, pelv is, and femurs. 6. CT Chest/Abdomen/Pelvis on February 06, 2017; 3 cm left thyroid mass, no other suggestion of primary neoplasm. 7. Bone scan February 08, 2017; Normal. 8. PET/CT scan on February 27, 2017; diffuse uptake about the spleen and bone marrow. 9. CBC on March 01, 2017; WBC 103,5000 (92% blasts) Hgb 13.8, Hct 41.8%, Platelet count 1 0,000. [id number] U/L, BUN 14 mg/dL, Scr 0.82 mg/dL. 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) Pertinent Diagnostics: -Peripheral blood flow 03/03/17, WBC>100K with ~90% blasts on presentation -Results: PENDING -Cytogenetics: PENDING -Genetrails: PENDING Treatment: -Chemotherapy regimen: TBD, likely re-induction (Flag-Areltte + Midostaurin) chemotherapy foll owed by allo transplant vs palliative chemotherapy -Chemo Day: TBD #Leukocytosis r/t relapsed disease: -Hydroxyurea 2g BID (03/02- ) #Anemia, Thrombocytopenia: -See supportive care #Supportive Care: Growth factor: no growth factors required at this time Labs: Continue to check CBC with diff daily Transfusion parameters: -Transfuse PRBCs for HCT <21% if asymptomatic OR <24% if symptomatic -Transfuse PPH for platelet count <10,000 or sooner PRN s/s bleeding. Cardiovascular: #Sinus tachycardia with hypertension: -Likely multifactorial: tumor lysis, fever, pain, volume depletion, ? Sepsis. No evidence of cardiac ischemia -Not on rate control medications. May be needed if no improvement. #Prolonged QTc: QTc 563 on EKG, was not prolonged on previous admissions. -Will monitor electrolytes and QTc prolonging medications closely. -Discussed with pharmacy and holding zofran and home trazodone although risk is low. Pulmonary: #Pulmonary Leukostasis: CXR with increased extensive bilateral groundglass opacities predom inantly in the perihilar regions (concern for infection vs. DAH) -O2 PRN to maintain SpO2 >88 -CT Chest 03/04 PENDING #COPD: -Home inhalers ordered GI: No acute issues Renal: #Risk for TLS, no signs of TLS at this time: -TLS labs every 8 hours -Allopurinol daily -MIVF Neuro/Psych: #Diffuse pain: Likely due to hematologic malignancy. Morphine allergy but per patient other opioids OK. - Tylenol - Oxycodone PRN #Depression/Anxiety: -Continue home duloxetine -Social work following -Lorazepam PRN for anxiety Endocrine: #Hypothyroidism: -Continue home synthroid Infectious Disease: #Non-neutropenic fevers, possibly disease related fevers. BCx PENDING, UA clear. CXR with i ncreased extensive bilateral groundglass opacities predominantly in the perihilar regions (c oncern for infection vs. DAH vs. Pulmonary leukostasis) -Chest CT 03/04 PENDING -Continue Cefepime (03/02- ) #Prophylaxis: Bacterial: As above Fungal: Not indicated at this time Viral: Acyclovir PCP: Not indicated at this time Fluid/Nutrition/Lytes: #Nutrition: Regular diet, No Madeline's yogurt or Kefir #Fluid: NS at 75 mL/hr #Lytes: -Continue to check chemistries daily -Replace per supportive care protocol. Disposition: Admitted for further work-up and treatment for relapsed AML. Anticipate 3-[address] [facility] admission. Leatha Darline BILLY Gilmore [facility] [address] [facility] Mailcode: [id number] [place] [phone] in this encounter Plan of Treatment Not on fileas of this encounter Results PRODUCT - PLATELET PHERESIS LEUKOREDUCED (04/01/2017 8:04 AM) + + + + | Component | Value | Ref Range | + + + + | PRODUCT DESCRIPTION | PLATELETS PHERESIS, LEUKOCYTES | | | | REDUCED,IRRADIATED | | + + + + | PRODUCT UNIT # | [id number] | | + + + + | UNIT ABO | O | | + + + + | UNIT RH | POS | | + + + + | STATUS OF UNIT | Presumed Transfused | | + + + + | EXPIRATION DATE | [id number] | | + + + + | BLOOD TYPE BARCODE | 5100 | | + + + + | BLOOD PRODUCT CODE | [id number] | | + + + + + + + | Specimen | Performing Laboratory | + + + | | [facility], TRANSFUSION MEDICINE [address] [facility] | | | [place] [address] | + + + RBC MORPHOLOGY (03/31/2017 11:01 PM) + +---------+ + | Component | Value | Ref Range | + +---------+ + | DOHLE BODIES | Present | | + +---------+ + | TOXIC GRANULATION | Present | | + +---------+ + | MICKEY MCDONNELL | Present | | | NEUTROPHILS | | | + +---------+ + + + + | Specimen | Performing Laboratory | + + + | Blood | [facility], [address] [facility] | | | [place], [place] [address] | + + + MANUAL DIFFERENTIAL (03/31/2017 11:01 PM) + + + + | Component | Value | Ref Range | + + + + | NEUTROPHIL % | 83.3 (H) | 50.0 - 70.0 % | + + + + | LYMPHOCYTE % | 13.1 (L) | 18.0 - 42.0 % | + + + + | MONOCYTE % | 3.6 | 3.5 - 9.0 % | + + + + | EOSINOPHIL % | 0.0 (L) | 1.0 - 3.0 % | + + + + | BASOPHIL % | 0.0 | 0.0 - 2.0 % | + + + + | IMMATURE | 0.0Comment: Immature Granulocytes (IG) | 0.0 - 0.6 % | | GRANULOCYTE% | include metamyelocytes, myelocytes and | | | | promyelocytes. Bands are not included in | | | | the IG count. Bands are included in the | | | | neutrophil count. | | + + + + | NEUTROPHIL # | 0.49 (L) | 1.80 - 7.70 K/cu mm | + + + + | LYMPHOCYTE # | 0.08 (L) | 1.00 - 4.80 K/cu mm | + + + + | MONOCYTE # | 0.02 (L) | 0.10 - 0.90 K/cu mm | + + + + | EOSINOPHIL # | 0.00 | 0.00 - 0.50 K/cu mm | + + + + | BASOPHIL # | 0.00 | 0.00 - 0.10 K/cu mm | + + + + | IMMATURE | 0.00 | 0.00 - 0.03 K/cu mm | | GRANULOCYTE# | | | + + + + + + + | Specimen | Performing Laboratory | + + + | Blood | [facility], [address] [facility] | | | [place] [address] | + + + + + | Narrative | + + | Immature Granulocytes (IG) include metamyelocytes, myelocytes and | | promyelocytes. Bands are not included in the IG count. Bands are included in the | | neutrophil count. | + + CBC AND AUTO DIFF (03/31/2017 11:01 PM) + + + + | Component | Value | Ref Range | + + + + | WHITE CELL COUNT | 0.59 (L) | 3.50 - 10.80 K/cu mm | + + + + | RED CELL COUNT | 2.70 (L) | 4.00 - 5.20 M/cu mm | + + + + | HEMOGLOBIN | 8.1 (L) | 12.0 - 16.0 g/dL | + + + + | HEMATOCRIT | 22.7 (L) | 36.0 - 46.0 % | + + + + | MCV | 84.1 | 80.0 - 96.0 fL | + + + + | MCHC | 35.7 | 33.0 - 35.5 g/dL | + + + + | RDW SD | 41.1 | 35.1 - 46.3 fL | + + + + | PLATELET COUNT | 11 (L) | 150 - 400 K/cu mm | + + + + | MPV | 10.2 | 9.7 - 12.3 fL | + + + + | NRBC% | 0.0 | 0.0 - 0.3 % | + + + + | NRBC# | 0.00 | 0.00 - 0.02 K/cu mm | + + + + + + + | Specimen | Performing Laboratory | + + + | Blood | [facility], [address] [facility] | | | [place] [address] | + + + PHOSPHORUS, PLASMA (03/31/2017 11:01 PM) + +-------+ + | Component | Value | Ref Range | + +-------+ + | PHOSPHORUS, PLASMA | 3.0 | 2.4 - 4.7 mg/dL | | (LAB) | | | + +-------+ + + + + | Specimen | Performing Laboratory | + + + | Blood | [facility], [address] [place] [address] | | | [place] [address] | + + + LDH TOTAL, PLASMA (03/31/2017 11:01 PM) + +---------+ + | Component | Value | Ref Range | + +---------+ + | LD TOTAL, PLASMA | 186 | <=250 U/L | + +---------+ + | LD CMNT | No Hemo | | + +---------+ + + + + | Specimen | Performing Laboratory | + + + | Blood | [facility], [address] [facility] | | | [place] [address] | + + + MAGNESIUM, PLASMA (03/31/2017 11:01 PM) + +-------+ + | Component | Value | Ref Range | + +-------+ + | MAGNESIUM,PLASMA | 2.0 | 1.6 - 2.6 mg/dL | + +-------+ + + + + | Specimen | Performing Laboratory | + + + | Blood | [facility], [address] [facility] | | | [place] [address] | + + + + + | Narrative | + + | Reference range change effective 15/17. | + + COMPLETE METABOLIC SET (NA,K,CL,CO2,BUN,CREAT,GLUC,CA,AST,ALT,BILI TOTAL,ALK PHOS,ALB,PROT TOTAL) (03/31/2017 11:01 PM) + +---------+ + | Component | Value | Ref Range | + +---------+ + | GLUCOSE, PLASMA | 113 (H) | 70 - 99 mg/dL | | (LAB) | | | + +---------+ + | BUN, PLASMA (LAB) | 11 | 6 - 20 mg/dL | + +---------+ + | CREATININE PLASMA | 0.74 | 0.60 - 1.10 mg/dL | | (LAB) | | | + +---------+ + | EGFR - | >60 | >60 mL/min | | UKRAINIAN | | | + +---------+ + | EGFR NON | >60 | >60 mL/min | | -UKRAINIAN | | | + +---------+ + | SODIUM, PLASMA (LAB) | 139 | 136 - 145 mmol/L | + +---------+ + | POTASSIUM, PLASMA | 3.4 | 3.4 - 5.0 mmol/L | | (LAB) | | | + +---------+ + | CHLORIDE, PLASMA | 103 | 97 - 108 mmol/L | | (LAB) | | | + +---------+ + | TOTAL CO2, PLASMA | 29 | 21 - 32 mmol/L | | (LAB) | | | + +---------+ + | CALCIUM, PLASMA | 8.9 | 8.6 - 10.2 mg/dL | | (LAB) | | | + +---------+ + | CALCIUM(ALB | 9.5 | 8.6 - 10.2 mg/dL | | CORRECTED) | | | + +---------+ + | BILIRUBIN TOTAL | 0.5 | 0.3 - 1.2 mg/dL | + +---------+ + | TOTAL PROTEIN, | 6.5 | 6.4 - 8.2 g/dL | | PLASMA (LAB) | | | + +---------+ + | ALBUMIN, PLASMA | 3.3 (L) | 3.5 - 4.7 g/dL | | (LAB) | | | + +---------+ + | ALK PHOS | 162 (H) | 42 - 98 U/L | + +---------+ + | AST(SGOT) | 21 | <=41 U/L | + +---------+ + | ALT (SGPT) | 47 | <=60 U/L | + +---------+ + | ANION GAP | 7 | mmol/L | + +---------+ + | ANION GAP(ALB | 8 | 4 - 11 mmol/L | | CORRECTED) | | | + +---------+ + | POTASSIUM CMNT | No Hemo | | + +---------+ + | BILI T CMNT | No Hemo | | + +---------+ + | AST CMNT | No Hemo | | + +---------+ + + + + | Specimen | Performing Laboratory | + + + | Blood | [facility] [place] [address] | | | [place] [address] | + + + + + | Narrative | + + | Adult glucose reference range change effective 7-17. GFR is estimated using the | | MDRD equation recommended by the National Kidney Disease Education Program. | | Estimated GFR Interpretive Information: <60 mL/min/1.73 sq | | m Chronic Kidney Disease <15 mL/min/1.73 sq | | m Kidney Failure Estimated GFR greater that 60 mL/min/1.73 | | sq m is of limited clinical value. The MDRD equation is not valid in the following | | situations: - Patients under 18 years of age - Severe malnutrition or obesity - | | Vegetarian diet - Rapidly changing kidney function | + + COAGULOPATHY PANEL (INR,APTT,FIBRINOGEN) (03/31/2017 11:01 PM) + +---------+ + | Component | Value | Ref Range | + +---------+ + | INR | 1.03 | 0.90 - 1.20 INR | + +---------+ + | APTT | 31.5 | 26.0 - 36.0 seconds | + +---------+ + | FIBRINOGEN LEVEL | 496 (H) | 200 - 450 mg/dL | + +---------+ + + + + | Specimen | Performing Laboratory | + + + | Blood | [facility], [address] [address] [facility] | | | [place] [address] | + + + + + | Narrative | + + | INR Therapeutic ranges for full anticoagulation: INR for Venous | | Thromboembolism (2.0 - 3.0) INR INR for most patients with | | mech. valves (2.5 - 3.5) INR APTT Therapeutic | | Range: (75 - 120) sec Heparin levels | | of 0.35 - 0.7 U/mL | + + CBC, WITH DIFFERENTIAL (03/31/2017 11:01 PM) + + + | Specimen | Performing Laboratory | + + + | Blood | | + + + + + | Narrative | + + | The following orders were created for panel order CBC, WITH DIFFERENTIAL. | | Procedure | | Abnormality Status | | --------- | | ------ CBC AND AUTO | | DIFF[[id number]] Abnormal Final | | result MANUAL | | DIFFERENTIAL[[id number]] Abnormal Final | | result RBC MORPHOLOGY[[id number]] | | Normal Final result Please view | | results for these tests on the individual orders. | + + ANTIBODY SCREEN (03/31/2017 1:12 AM) + + + + | Component | Value | Ref Range | + + + + | Antibody Screen | Negative | | + + + + + + + | Specimen | Performing Laboratory | + + + | Blood | [facility], TRANSFUSION MEDICINE [address] [place] [address] | | | [place] [address] | + + + ABO & RH TYPE (03/31/2017 1:12 AM) + + + + | Component | Value | Ref Range | + + + + | ABO Group | O | | + + + + | Rh Type | Positive | | + + + + + + + | Specimen | Performing Laboratory | + + + | Blood | [facility], TRANSF[facility]ION MEDICINE [address] [place] [address] | | | [place] [address] | + + + TYPE AND SCREEN (03/31/2017 1:12 AM) + + + | Specimen | Performing Laboratory | + + + | Blood | | + + + + + | Narrative | + + | The following orders were created for panel order TYPE AND SCREEN. | | Procedure | | Abnormality Status | | --------- | | ------ ABO & RH | | TYPE[[id number]] F | | inal result ANTIBODY | | SCREEN[[id number]] Fin | | al result Please view results for these tests on the | | individual orders. | + + PRODUCT - RED CELLS LEUKOREDUCED (03/31/2017 1:11 AM) + + + + | Component | Value | Ref Range | + + + + | PRODUCT DESCRIPTION | -1 RED BLOOD CELLS ADENINE-SALINE ADDED | | | | LEUKOCYT | | + + + + | PRODUCT UNIT # | [id number] | | + + + + | UNIT ABO | O | | + + + + | UNIT RH | POS | | + + + + | STATUS OF UNIT | Presumed Transfused | | + + + + | EXPIRATION DATE | [id number] | | + + + + | BLOOD TYPE BARCODE | 5100 | | + + + + | BLOOD PRODUCT CODE | [id number] | | + + + + + + + | Specimen | Performing Laboratory | + + + | | [facility], TRANSFUSION MEDICINE [address] [facility] | | | [place] [address] | + + + RBC MORPHOLOGY (03/30/2017 11:39 PM) + + + + | Component | Value | Ref Range | + + + + | DOHLE BODIES | Present | | + + + + | TOXIC GRANULATION | Present | | + + + + | VACUOLATED NEUTS | Present | | + + + + | ANISOCYTOSIS | 1+(10-25cells/HPF) | | + + + + | MICROCYTOSIS | 1+(10-25cells/HPF) | | + + + + | OVALOCYTES | 1+(10-25cells/HPF) | | + + + + | TEAR DROP CELLS | 1+ (<1-2cells/HPF) | | + + + + + + + | Specimen | Performing Laboratory | + + + | Blood | [facility], CORE [address] [place] [address] | | | [place] [address] | + + + MANUAL DIFFERENTIAL (03/30/2017 11:39 PM) + + + + | Component | Value | Ref Range | + + + + | NEUTROPHIL % | 86.1 (H) | 50.0 - 70.0 % | + + + + | LYMPHOCYTE % | 7.8 (L) | 18.0 - 42.0 % | + + + + | MONOCYTE % | 5.2 | 3.5 - 9.0 % | + + + + | EOSINOPHIL % | 0.0 (L) | 1.0 - 3.0 % | + + + + | BASOPHIL % | 0.0 | 0.0 - 2.0 % | + + + + | IMMATURE | 0.9 (H)Comment: Immature Granulocytes (IG) | 0.0 - 0.6 % | | GRANULOCYTE% | include metamyelocytes, myelocytes and | | | | promyelocytes. Bands are not included in | | | | the IG count. Bands are included in the | | | | neutrophil count. | | + + + + | NEUTROPHIL # | 0.34 (L) | 1.80 - 7.70 K/cu mm | + + + + | LYMPHOCYTE # | 0.03 (L) | 1.00 - 4.80 K/cu mm | + + + + | MONOCYTE # | 0.02 (L) | 0.10 - 0.90 K/cu mm | + + + + | EOSINOPHIL # | 0.00 | 0.00 - 0.50 K/cu mm | + + + + | BASOPHIL # | 0.00 | 0.00 - 0.10 K/cu mm | + + + + | IMMATURE | 0.00 | 0.00 - 0.03 K/cu mm | | GRANULOCYTE# | | | + + + + + + + | Specimen | Performing Laboratory | + + + | Blood | [facility], CORE [address] [facility] | | | [place] [address] | + + + + + | Narrative | + + | Immature Granulocytes (IG) include metamyelocytes, myelocytes and | | promyelocytes. Bands are not included in the IG count. Bands are included in the | | neutrophil count. | + + CBC AND AUTO DIFF (03/30/2017 11:39 PM) + + + + | Component | Value | Ref Range | + + + + | WHITE CELL COUNT | 0.40 (L) | 3.50 - 10.80 K/cu mm | + + + + | RED CELL COUNT | 2.44 (L) | 4.00 - 5.20 M/cu mm | + + + + | HEMOGLOBIN | 7.4 (L) | 12.0 - 16.0 g/dL | + + + + | HEMATOCRIT | 20.9 (L) | 36.0 - 46.0 % | + + + + | MCV | 85.7 | 80.0 - 96.0 fL | + + + + | MCHC | 35.4 | 33.0 - 35.5 g/dL | + + + + | RDW SD | 38.2 | 35.1 - 46.3 fL | + + + + | PLATELET COUNT | 13 (L)Comment: Macro platelets present. | 150 - 400 K/cu mm | + + + + | MPV | 10.2 | 9.7 - 12.3 fL | + + + + | NRBC% | 0.0 | 0.0 - 0.3 % | + + + + | NRBC# | 0.00 | 0.00 - 0.02 K/cu mm | + + + + + + + | Specimen | Performing Laboratory | + + + | Blood | [facility], CORE [address] [facility] | | | [place] [address] | + + + PHOSPHORUS, PLASMA (03/30/2017 11:39 PM) + +-------+ + | Component | Value | Ref Range | + +-------+ + | PHOSPHORUS, PLASMA | 3.2 | 2.4 - 4.7 mg/dL | | (LAB) | | | + +-------+ + + + + | Specimen | Performing Laboratory | + + + | Blood | [facility], [facility]ORE [address] | | | [place] [address] | + + + MAGNESIUM, PLASMA (03/30/2017 11:39 PM) + +-------+ + | Component | Value | Ref Range | + +-------+ + | MAGNESIUM,PLASMA | 2.1 | 1.6 - 2.6 mg/dL | + +-------+ + + + + | Specimen | Performing Laboratory | + + + | Blood | [facility], [address] [facility] | | | [place] [address] | + + + + + | Narrative | + + | Reference range change effective 12/11/16. | + + COMPLETE METABOLIC SET (NA,K,CL,CO2,BUN,CREAT,GLUC,CA,AST,ALT,BILI TOTAL,ALK PHOS,ALB,PROT TOTAL) (03/30/2017 11:39 PM) + +---------+ + | Component | Value | Ref Range | + +---------+ + | GLUCOSE, PLASMA | 107 (H) | 70 - 99 mg/dL | | (LAB) | | | + +---------+ + | BUN, PLASMA (LAB) | 9 | 6 - 20 mg/dL | + +---------+ + | CREATININE PLASMA | 0.76 | 0.60 - 1.10 mg/dL | | (LAB) | | | + +---------+ + | EGFR - | >60 | >60 mL/min | | UKRAINIAN | | | + +---------+ + | EGFR NON | >60 | >60 mL/min | | -UKRAINIAN | | | + +---------+ + | SODIUM, PLASMA (LAB) | 141 | 136 - 145 mmol/L | + +---------+ + | POTASSIUM, PLASMA | 3.5 | 3.4 - 5.0 mmol/L | | (LAB) | | | + +---------+ + | CHLORIDE, PLASMA | 106 | 97 - 108 mmol/L | | (LAB) | | | + +---------+ + | TOTAL CO2, PLASMA | 27 | 21 - 32 mmol/L | | (LAB) | | | + +---------+ + | CALCIUM, PLASMA | 8.3 (L) | 8.6 - 10.2 mg/dL | | (LAB) | | | + +---------+ + | CALCIUM(ALB | 9.0 | 8.6 - 10.2 mg/dL | | CORRECTED) | | | + +---------+ + | BILIRUBIN TOTAL | 0.5 | 0.3 - 1.2 mg/dL | + +---------+ + | TOTAL PROTEIN, | 6.4 | 6.4 - 8.2 g/dL | | PLASMA (LAB) | | | + +---------+ + | ALBUMIN, PLASMA | 3.1 (L) | 3.5 - 4.7 g/dL | | (LAB) | | | + +---------+ + | ALK PHOS | 160 (H) | 42 - 98 U/L | + +---------+ + | AST(SGOT) | 24 | <=41 U/L | + +---------+ + | ALT (SGPT) | 45 | <=60 U/L | + +---------+ + | ANION GAP | 8 | mmol/L | + +---------+ + | ANION GAP(ALB | 10 | 4 - 11 mmol/L | | CORRECTED) | | | + +---------+ + | POTASSIUM CMNT | No Hemo | | + +---------+ + | BILI T CMNT | No Hemo | | + +---------+ + | AST CMNT | No Hemo | | + +---------+ + + + + | Specimen | Performing Laboratory | + + + | Blood | [facility], [address]ORE [address] [facility] | | | [place] [address] | + + + + + | Narrative | + + | Adult glucose reference range change effective 7-12-17. GFR is estimated using the | | MDRD equation recommended by the National Kidney Disease Education Program. | | Estimated GFR Interpretive Information: <60 mL/min/1.73 sq | | m Chronic Kidney Disease <15 mL/min/1.73 sq | | m Kidney Failure Estimated GFR greater that 60 mL/min/1.73 | | sq m is of limited clinical value. The MDRD equation is not valid in the following | | situations: - Patients under 18 years of age - Severe malnutrition or obesity - | | Vegetarian diet - Rapidly changing kidney function | + + COAGULOPATHY PANEL (INR,APTT,FIBRINOGEN) (03/30/2017 11:39 PM) + +---------+ + | Component | Value | Ref Range | + +---------+ + | INR | 1.03 | 0.90 - 1.20 INR | + +---------+ + | APTT | 30.0 | 26.0 - 36.0 seconds | + +---------+ + | FIBRINOGEN LEVEL | 480 (H) | 200 - 450 mg/dL | + +---------+ + + + + | Specimen | Performing Laboratory | + + + | Blood | [facility], CORE [address] [facility] | | | [place] [address] | + + + + + | Narrative | + + | INR Therapeutic ranges for full anticoagulation: INR for Venous | | Thromboembolism (2.0 - 3.0) INR INR for most patients with | | mech. valves (2.5 - 3.5) INR APTT Therapeutic | | Range: (75 - 120) sec Heparin levels | | of 0.35 - 0.7 U/mL | + + CBC, WITH DIFFERENTIAL (03/30/2017 11:39 PM) + + + | Specimen | Performing Laboratory | + + + | Blood | | + + + + + | Narrative | + + | The following orders were created for panel order CBC, WITH DIFFERENTIAL. | | Procedure | | Abnormality Status | | --------- | | ------ CBC AND AUTO | | DIFF[[id number]] Abnormal Final | | result MANUAL | | DIFFERENTIAL[[id number]] Abnormal Final | | result RBC MORPHOLOGY[[id number]] | | Normal Final result Please view | | results for these tests on the individual orders. | + + CBC AND AUTO DIFF (03/29/2017 11:53 PM) + + + + | Component | Value | Ref Range | + + + + | WHITE CELL COUNT | 0.29 (L) | 3.50 - 10.80 K/cu mm | + + + + | RED CELL COUNT | 2.49 (L) | 4.00 - 5.20 M/cu mm | + + + + | HEMOGLOBIN | 7.6 (L) | 12.0 - 16.0 g/dL | + + + + | HEMATOCRIT | 21.4 (L) | 36.0 - 46.0 % | + + + + | MCV | 85.9 | 80.0 - 96.0 fL | + + + + | MCHC | 35.5 | 33.0 - 35.5 g/dL | + + + + | RDW SD | 37.8 | 35.1 - 46.3 fL | + + + + | PLATELET COUNT | 20 (L) | 150 - 400 K/cu mm | + + + + | MPV | 8.7 (L) | 9.7 - 12.3 fL | + + + + | NRBC% | 0.0 | 0.0 - 0.3 % | + + + + | NRBC# | 0.00 | 0.00 - 0.02 K/cu mm | + + + + | NEUTROPHIL % | Comment: WBC <300; differential not | 50.0 - 70.0 % | | | performed. | | + + + + | LYMPHOCYTE % | Comment: WBC <300; differential not | 18.0 - 42.0 % | | | performed. | | + + + + | MONOCYTE % | Comment: WBC <300; differential not | 3.5 - 9.0 % | | | performed. | | + + + + | EOS % | Comment: WBC <300; differential not | 1.0 - 3.0 % | | | performed. | | + + + + | BASO % | Comment: WBC <300; differential not | 0.0 - 2.0 % | | | performed. | | + + + + | IMMATURE | Comment: WBC <300; differential not | 0.0 - 0.6 % | | GRANULOCYTE% | performed. | | + + + + | NEUTROPHIL # | Comment: WBC <300; differential not | 1.80 - 7.70 K/cu mm | | | performed. | | + + + + | LYMPHOCYTE # | Comment: WBC <300; differential not | 1.00 - 4.80 K/cu mm | | | performed. | | + + + + | MONOCYTE # | Comment: WBC <300; differential not | 0.10 - 0.90 K/cu mm | | | performed. | | + + + + | EOS # | Comment: WBC <300; differential not | 0.00 - 0.50 K/cu mm | | | performed. | | + + + + | BASO # | Comment: WBC <300; differential not | 0.00 - 0.10 K/cu mm | | | performed. | | + + + + | IMMATURE | Comment: WBC <300; differential not | 0.00 - 0.03 K/cu mm | | GRANULOCYTE# | performed. | | + + + + + + + | Specimen | Performing Laboratory | + + + | Blood | [facility], CORE [address] | | | [place] [address] | + + + + + | Narrative | + + | Immature Granulocytes (IG) include metamyelocytes, myelocytes and | | promyelocytes. Bands are not included in the IG count. Bands are included in the | | neutrophil count. | + + PHOSPHORUS, PLASMA (03/29/2017 11:53 PM) + +-------+ + | Component | Value | Ref Range | + +-------+ + | PHOSPHORUS, PLASMA | 3.4 | 2.4 - 4.7 mg/dL | | (LAB) | | | + +-------+ + + + + | Specimen | Performing Laboratory | + + + | Blood | [facility], CORE [address] [facility] | | | [place] [address] | + + + MAGNESIUM, PLASMA (03/29/2017 11:53 PM) + +-------+ + | Component | Value | Ref Range | + +-------+ + | MAGNESIUM,PLASMA | 2.1 | 1.6 - 2.6 mg/dL | + +-------+ + + + + | Specimen | Performing Laboratory | + + + | Blood | [facility], CORE [address] [facility] | | | [place] [address] | + + + + + | Narrative | + + | Reference range change effective 12/11/16. | + + COMPLETE METABOLIC SET (NA,K,CL,CO2,BUN,CREAT,GLUC,CA,AST,ALT,BILI TOTAL,ALK PHOS,ALB,PROT TOTAL) (03/29/2017 11:53 PM) + +---------+ + | Component | Value | Ref Range | + +---------+ + | GLUCOSE, PLASMA | 106 (H) | 70 - 99 mg/dL | | (LAB) | | | + +---------+ + | BUN, PLASMA (LAB) | 13 | 6 - 20 mg/dL | + +---------+ + | CREATININE PLASMA | 0.65 | 0.60 - 1.10 mg/dL | | (LAB) | | | + +---------+ + | EGFR - | >60 | >60 mL/min | | UKRAINIAN | | | + +---------+ + | EGFR NON | >60 | >60 mL/min | | -UKRAINIAN | | | + +---------+ + | SODIUM, PLASMA (LAB) | 141 | 136 - 145 mmol/L | + +---------+ + | POTASSIUM, PLASMA | 3.7 | 3.4 - 5.0 mmol/L | | (LAB) | | | + +---------+ + | CHLORIDE, PLASMA | 105 | 97 - 108 mmol/L | | (LAB) | | | + +---------+ + | TOTAL CO2, PLASMA | 27 | 21 - 32 mmol/L | | (LAB) | | | + +---------+ + | CALCIUM, PLASMA | 8.4 (L) | 8.6 - 10.2 mg/dL | | (LAB) | | | + +---------+ + | CALCIUM(ALB | 9.0 | 8.6 - 10.2 mg/dL | | CORRECTED) | | | + +---------+ + | BILIRUBIN TOTAL | 0.4 | 0.3 - 1.2 mg/dL | + +---------+ + | TOTAL PROTEIN, | 6.5 | 6.4 - 8.2 g/dL | | PLASMA (LAB) | | | + +---------+ + | ALBUMIN, PLASMA | 3.2 (L) | 3.5 - 4.7 g/dL | | (LAB) | | | + +---------+ + | ALK PHOS | 164 (H) | 42 - 98 U/L | + +---------+ + | AST(SGOT) | 20 | <=41 U/L | + +---------+ + | ALT (SGPT) | 40 | <=60 U/L | + +---------+ + | ANION GAP | 9 | mmol/L | + +---------+ + | ANION GAP(ALB | 11 | 4 - 11 mmol/L | | CORRECTED) | | | + +---------+ + | POTASSIUM CMNT | No Hemo | | + +---------+ + | BILI T CMNT | No Hemo | | + +---------+ + | AST CMNT | No Hemo | | + +---------+ + + + + | Specimen | Performing Laboratory | + + + | Blood | [facility] [address] [facility] | | | [place] [address] | + + + + + | Narrative | + + | Adult glucose reference range change effective 7-17. GFR is estimated using the | | MDRD equation recommended by the National Kidney Disease Education Program. | | Estimated GFR Interpretive Information: <60 mL/min/1.73 sq | | m Chronic Kidney Disease <15 mL/min/1.73 sq | | m Kidney Failure Estimated GFR greater that 60 mL/min/1.73 | | sq m is of limited clinical value. The MDRD equation is not valid in the following | | situations: - Patients under 18 years of age - Severe malnutrition or obesity - | | Vegetarian diet - Rapidly changing kidney function | + + COAGULOPATHY PANEL (INR,APTT,FIBRINOGEN) (03/29/2017 11:53 PM) + +---------+ + | Component | Value | Ref Range | + +---------+ + | INR | 0.98 | 0.90 - 1.20 INR | + +---------+ + | APTT | 31.3 | 26.0 - 36.0 seconds | + +---------+ + | FIBRINOGEN LEVEL | 488 (H) | 200 - 450 mg/dL | + +---------+ + + + + | Specimen | Performing Laboratory | + + + | Blood | [facility], CORE [address] [facility] [address] | | | [place] [address] | + + + + + | Narrative | + + | INR Therapeutic ranges for full anticoagulation: INR for Venous | | Thromboembolism (2.0 - 3.0) INR INR for most patients with | | mech. valves (2.5 - 3.5) INR APTT Therapeutic | | Range: (75 - 120) sec Heparin levels | | of 0.35 - 0.7 U/mL | + + CBC, WITH DIFFERENTIAL (03/29/2017 11:53 PM) + + + | Specimen | Performing Laboratory | + + + | Blood | | + + + + + | Narrative | + + | The following orders were created for panel order CBC, WITH DIFFERENTIAL. | | Procedure | | Abnormality Status | | --------- | | ------ CBC AND AUTO | | DIFF[[id number]] Abnormal Final | | result Please view results for these tests on the | | individual orders. | + + PRODUCT - PLATELET PHERESIS LEUKOREDUCED (03/29/2017 2:13 AM) + + + + | Component | Value | Ref Range | + + + + | PRODUCT DESCRIPTION | PLATELETS PHERESIS, LEUKOCYTE REDUCED, | | | | IRRADIATED | | + + + + | PRODUCT UNIT # | [id number] | | + + + + | UNIT ABO | O | | + + + + | UNIT RH | POS | | + + + + | STATUS OF UNIT | Presumed Transfused | | + + + + | EXPIRATION DATE | [id number] | | + + + + | BLOOD TYPE BARCODE | 5100 | | + + + + | BLOOD PRODUCT CODE | [id number] | | + + + + + + + | Specimen | Performing Laboratory | + + + | | [facility], TRANSFUSION MEDICINE [address] | | | [place] [address] | + + + CBC AND AUTO DIFF (03/28/2017 11:28 PM) + + + + | Component | Value | Ref Range | + + + + | WHITE CELL COUNT | 0.27 (L) | 3.50 - 10.80 K/cu mm | + + + + | RED CELL COUNT | 2.62 (L) | 4.00 - 5.20 M/cu mm | + + + + | HEMOGLOBIN | 8.0 (L) | 12.0 - 16.0 g/dL | + + + + | HEMATOCRIT | 22.4 (L) | 36.0 - 46.0 % | + + + + | MCV | 85.5 | 80.0 - 96.0 fL | + + + + | MCHC | 35.7 | 33.0 - 35.5 g/dL | + + + + | RDW SD | 38.1 | 35.1 - 46.3 fL | + + + + | PLATELET COUNT | 7 (LL) | 150 - 400 K/cu mm | + + + + | MPV | 10.0 | 9.7 - 12.3 fL | + + + + | NRBC% | 0.0 | 0.0 - 0.3 % | + + + + | NRBC# | 0.00 | 0.00 - 0.02 K/cu mm | + + + + | NEUTROPHIL % | Comment: WBC <300; differential not | 50.0 - 70.0 % | | | performed. | | + + + + | LYMPHOCYTE % | Comment: WBC <300; differential not | 18.0 - 42.0 % | | | performed. | | + + + + | MONOCYTE % | Comment: WBC <300; differential not | 3.5 - 9.0 % | | | performed. | | + + + + | EOS % | Comment: WBC <300; differential not | 1.0 - 3.0 % | | | performed. | | + + + + | BASO % | Comment: WBC <300; differential not | 0.0 - 2.0 % | | | performed. | | + + + + | IMMATURE | Comment: WBC <300; differential not | 0.0 - 0.6 % | | GRANULOCYTE% | performed. | | + + + + | NEUTROPHIL # | Comment: WBC <300; differential not | 1.80 - 7.70 K/cu mm | | | performed. | | + + + + | LYMPHOCYTE # | Comment: WBC <300; differential not | 1.00 - 4.80 K/cu mm | | | performed. | | + + + + | MONOCYTE # | Comment: WBC <300; differential not | 0.10 - 0.90 K/cu mm | | | performed. | | + + + + | EOS # | Comment: WBC <300; differential not | 0.00 - 0.50 K/cu mm | | | performed. | | + + + + | BASO # | Comment: WBC <300; differential not | 0.00 - 0.10 K/cu mm | | | performed. | | + + + + | IMMATURE | Comment: WBC <300; differential not | 0.00 - 0.03 K/cu mm | | GRANULOCYTE# | performed. | | + + + + + + + | Specimen | Performing Laboratory | + + + | Blood | [facility] [address] [facility] | | | [place] [address] | + + + + + | Narrative | + + | Immature Granulocytes (IG) include metamyelocytes, myelocytes and | | promyelocytes. Bands are not included in the IG count. Bands are included in the | | neutrophil count. | + + PHOSPHORUS, PLASMA (03/28/2017 11:28 PM) + +-------+ + | Component | Value | Ref Range | + +-------+ + | PHOSPHORUS, PLASMA | 3.5 | 2.4 - 4.7 mg/dL | | (LAB) | | | + +-------+ + + + + | Specimen | Performing Laboratory | + + + | Blood | [facility], CORE [address] | | | [place] [address] | + + + MAGNESIUM, PLASMA (03/28/2017 11:28 PM) + +-------+ + | Component | Value | Ref Range | + +-------+ + | MAGNESIUM,PLASMA | 2.3 | 1.6 - 2.6 mg/dL | + +-------+ + + + + | Specimen | Performing Laboratory | + + + | Blood | [facility], CORE [address] | | | [place] [address] | + + + + + | Narrative | + + | Reference range change effective 12/11/16. | + + COMPLETE METABOLIC SET (NA,K,CL,CO2,BUN,CREAT,GLUC,CA,AST,ALT,BILI TOTAL,ALK PHOS,ALB,PROT TOTAL) (03/28/2017 11:28 PM) + +---------+ + | Component | Value | Ref Range | + +---------+ + | GLUCOSE, PLASMA | 109 (H) | 70 - 99 mg/dL | | (LAB) | | | + +---------+ + | BUN, PLASMA (LAB) | 13 | 6 - 20 mg/dL | + +---------+ + | CREATININE PLASMA | 0.70 | 0.60 - 1.10 mg/dL | | (LAB) | | | + +---------+ + | EGFR - | >60 | >60 mL/min | | UKRAINIAN | | | + +---------+ + | EGFR NON | >60 | >60 mL/min | | -UKRAINIAN | | | + +---------+ + | SODIUM, PLASMA (LAB) | 140 | 136 - 145 mmol/L | + +---------+ + | POTASSIUM, PLASMA | 3.7 | 3.4 - 5.0 mmol/L | | (LAB) | | | + +---------+ + | CHLORIDE, PLASMA | 105 | 97 - 108 mmol/L | | (LAB) | | | + +---------+ + | TOTAL CO2, PLASMA | 27 | 21 - 32 mmol/L | | (LAB) | | | + +---------+ + | CALCIUM, PLASMA | 8.8 | 8.6 - 10.2 mg/dL | | (LAB) | | | + +---------+ + | CALCIUM(ALB | 9.4 | 8.6 - 10.2 mg/dL | | CORRECTED) | | | + +---------+ + | BILIRUBIN TOTAL | 0.5 | 0.3 - 1.2 mg/dL | + +---------+ + | TOTAL PROTEIN, | 6.6 | 6.4 - 8.2 g/dL | | PLASMA (LAB) | | | + +---------+ + | ALBUMIN, PLASMA | 3.3 (L) | 3.5 - 4.7 g/dL | | (LAB) | | | + +---------+ + | ALK PHOS | 159 (H) | 42 - 98 U/L | + +---------+ + | AST(SGOT) | 21 | <=41 U/L | + +---------+ + | ALT (SGPT) | 41 | <=60 U/L | + +---------+ + | ANION GAP | 8 | mmol/L | + +---------+ + | ANION GAP(ALB | 9 | 4 - 11 mmol/L | | CORRECTED) | | | + +---------+ + | POTASSIUM CMNT | No Hemo | | + +---------+ + | BILI T CMNT | No Hemo | | + +---------+ + | AST CMNT | No Hemo | | + +---------+ + + + + | Specimen | Performing Laboratory | + + + | Blood | [facility], CORE [address] [facility] | | | [place] [address] | + + + + + | Narrative | + + | Adult glucose reference range change effective 712-17. GFR is estimated using the | | MDRD equation recommended by the National Kidney Disease Education Program. | | Estimated GFR Interpretive Information: <60 mL/min/1.73 sq | | m Chronic Kidney Disease <15 mL/min/1.73 sq | | m Kidney Failure Estimated GFR greater that 60 mL/min/1.73 | | sq m is of limited clinical value. The MDRD equation is not valid in the following | | situations: - Patients under 18 years of age - Severe malnutrition or obesity - | | Vegetarian diet - Rapidly changing kidney function | + + COAGULOPATHY PANEL (INR,APTT,FIBRINOGEN) (03/28/2017 11:28 PM) + +---------+ + | Component | Value | Ref Range | + +---------+ + | INR | 1.02 | 0.90 - 1.20 INR | + +---------+ + | APTT | 32.0 | 26.0 - 36.0 seconds | + +---------+ + | FIBRINOGEN LEVEL | 488 (H) | 200 - 450 mg/dL | + +---------+ + + + + | Specimen | Performing Laboratory | + + + | Blood | [facility], [facility] [address] | | | [place] [address] | + + + + + | Narrative | + + | INR Therapeutic ranges for full anticoagulation: INR for Venous | | Thromboembolism (2.0 - 3.0) INR INR for most patients with | | mech. valves (2.5 - 3.5) INR APTT Therapeutic | | Range: (75 - 120) sec Heparin levels | | of 0.35 - 0.7 U/mL | + + CBC, WITH DIFFERENTIAL (03/28/2017 11:28 PM) + + + | Specimen | Performing Laboratory | + + + | Blood | | + + + + + | Narrative | + + | The following orders were created for panel order CBC, WITH DIFFERENTIAL. | | Procedure | | Abnormality Status | | --------- | | ------ CBC AND AUTO | | DIFF[[id number]] Abnormal Final | | result Please view results for these tests on the | | individual orders. | + + CBC AND AUTO DIFF (03/27/2017 11:14 PM) + + + + | Component | Value | Ref Range | + + + + | WHITE CELL COUNT | 0.16 (L) | 3.50 - 10.80 K/cu mm | + + + + | RED CELL COUNT | 2.64 (L) | 4.00 - 5.20 M/cu mm | + + + + | HEMOGLOBIN | 8.2 (L) | 12.0 - 16.0 g/dL | + + + + | HEMATOCRIT | 22.9 (L) | 36.0 - 46.0 % | + + + + | MCV | 86.7 | 80.0 - 96.0 fL | + + + + | MCHC | 35.8 | 33.0 - 35.5 g/dL | + + + + | RDW SD | 38.5 | 35.1 - 46.3 fL | + + + + | PLATELET COUNT | 12 (L) | 150 - 400 K/cu mm | + + + + | MPV | 11.8 | 9.7 - 12.3 fL | + + + + | NRBC% | 0.0 | 0.0 - 0.3 % | + + + + | NRBC# | 0.00 | 0.00 - 0.02 K/cu mm | + + + + | NEUTROPHIL % | Comment: WBC <300; differential not | 50.0 - 70.0 % | | | performed. | | + + + + | LYMPHOCYTE % | Comment: WBC <300; differential not | 18.0 - 42.0 % | | | performed. | | + + + + | MONOCYTE % | Comment: WBC <300; differential not | 3.5 - 9.0 % | | | performed. | | + + + + | EOS % | Comment: WBC <300; differential not | 1.0 - 3.0 % | | | performed. | | + + + + | BASO % | Comment: WBC <300; differential not | 0.0 - 2.0 % | | | performed. | | + + + + | IMMATURE | Comment: WBC <300; differential not | 0.0 - 0.6 % | | GRANULOCYTE% | performed. | | + + + + | NEUTROPHIL # | Comment: WBC <300; differential not | 1.80 - 7.70 K/cu mm | | | performed. | | + + + + | LYMPHOCYTE # | Comment: WBC <300; differential not | 1.00 - 4.80 K/cu mm | | | performed. | | + + + + | MONOCYTE # | Comment: WBC <300; differential not | 0.10 - 0.90 K/cu mm | | | performed. | | + + + + | EOS # | Comment: WBC <300; differential not | 0.00 - 0.50 K/cu mm | | | performed. | | + + + + | BASO # | Comment: WBC <300; differential not | 0.00 - 0.10 K/cu mm | | | performed. | | + + + + | IMMATURE | Comment: WBC <300; differential not | 0.00 - 0.03 K/cu mm | | GRANULOCYTE# | performed. | | + + + + + + + | Specimen | Performing Laboratory | + + + | Blood | [facility], [facility] [address] | | | [place] [address] | + + + + + | Narrative | + + | Immature Granulocytes (IG) include metamyelocytes, myelocytes and | | promyelocytes. Bands are not included in the IG count. Bands are included in the | | neutrophil count. | + + PHOSPHORUS, PLASMA (03/27/2017 11:14 PM) + +-------+ + | Component | Value | Ref Range | + +-------+ + | PHOSPHORUS, PLASMA | 3.4 | 2.4 - 4.7 mg/dL | | (LAB) | | | + +-------+ + + + + | Specimen | Performing Laboratory | + + + | Blood | [facility], [facility] [address] [facility] | | | [place] [address] | + + + LDH TOTAL, PLASMA (03/27/2017 11:14 PM) + +---------+ + | Component | Value | Ref Range | + +---------+ + | LD TOTAL, PLASMA | 202 | <=250 U/L | + +---------+ + | LD CMNT | No Hemo | | + +---------+ + + + + | Specimen | Performing Laboratory | + + + | Blood | [facility], CORE [address] [facility] | | | [place] [address] | + + + MAGNESIUM, PLASMA (03/27/2017 11:14 PM) + +-------+ + | Component | Value | Ref Range | + +-------+ + | MAGNESIUM,PLASMA | 2.2 | 1.6 - 2.6 mg/dL | + +-------+ + + + + | Specimen | Performing Laboratory | + + + | Blood | [facility], CORE [address] [facility] | | | [place] [address] | + + + + + | Narrative | + + | Reference range change effective 12/11/16. | + + COMPLETE METABOLIC SET (NA,K,CL,CO2,BUN,CREAT,GLUC,CA,AST,ALT,BILI TOTAL,ALK PHOS,ALB,PROT TOTAL) (03/27/2017 11:14 PM) + +---------+ + | Component | Value | Ref Range | + +---------+ + | GLUCOSE, PLASMA | 103 (H) | 70 - 99 mg/dL | | (LAB) | | | + +---------+ + | BUN, PLASMA (LAB) | 12 | 6 - 20 mg/dL | + +---------+ + | CREATININE PLASMA | 0.68 | 0.60 - 1.10 mg/dL | | (LAB) | | | + +---------+ + | EGFR - | >60 | >60 mL/min | | UKRAINIAN | | | + +---------+ + | EGFR NON | >60 | >60 mL/min | | -UKRAINIAN | | | + +---------+ + | SODIUM, PLASMA (LAB) | 141 | 136 - 145 mmol/L | + +---------+ + | POTASSIUM, PLASMA | 3.9 | 3.4 - 5.0 mmol/L | | (LAB) | | | + +---------+ + | CHLORIDE, PLASMA | 105 | 97 - 108 mmol/L | | (LAB) | | | + +---------+ + | TOTAL CO2, PLASMA | 28 | 21 - 32 mmol/L | | (LAB) | | | + +---------+ + | CALCIUM, PLASMA | 8.9 | 8.6 - 10.2 mg/dL | | (LAB) | | | + +---------+ + | CALCIUM(ALB | 9.4 | 8.6 - 10.2 mg/dL | | CORRECTED) | | | + +---------+ + | BILIRUBIN TOTAL | 0.6 | 0.3 - 1.2 mg/dL | + +---------+ + | TOTAL PROTEIN, | 6.7 | 6.4 - 8.2 g/dL | | PLASMA (LAB) | | | + +---------+ + | ALBUMIN, PLASMA | 3.4 (L) | 3.5 - 4.7 g/dL | | (LAB) | | | + +---------+ + | ALK PHOS | 159 (H) | 42 - 98 U/L | + +---------+ + | AST(SGOT) | 21 | <=41 U/L | + +---------+ + | ALT (SGPT) | 41 | <=60 U/L | + +---------+ + | ANION GAP | 8 | mmol/L | + +---------+ + | ANION GAP(ALB | 9 | 4 - 11 mmol/L | | CORRECTED) | | | + +---------+ + | POTASSIUM CMNT | No Hemo | | + +---------+ + | BILI T CMNT | No Hemo | | + +---------+ + | AST CMNT | No Hemo | | + +---------+ + + + + | Specimen | Performing Laboratory | + + + | Blood | [facility] [address] | | | [place] [address] | + + + + + | Narrative | + + | Adult glucose reference range change effective 7-17. GFR is estimated using the | | MDRD equation recommended by the National Kidney Disease Education Program. | | Estimated GFR Interpretive Information: <60 mL/min/1.73 sq | | m Chronic Kidney Disease <15 mL/min/1.73 sq | | m Kidney Failure Estimated GFR greater that 60 mL/min/1.73 | | sq m is of limited clinical value. The MDRD equation is not valid in the following | | situations: - Patients under 18 years of age - Severe malnutrition or obesity - | | Vegetarian diet - Rapidly changing kidney function | + + COAGULOPATHY PANEL (INR,APTT,FIBRINOGEN) (03/27/2017 11:14 PM) + +---------+ + | Component | Value | Ref Range | + +---------+ + | INR | 1.01 | 0.90 - 1.20 INR | + +---------+ + | APTT | 31.4 | 26.0 - 36.0 seconds | + +---------+ + | FIBRINOGEN LEVEL | 505 (H) | 200 - 450 mg/dL | + +---------+ + + + + | Specimen | Performing Laboratory | + + + | Blood | [facility], CORE [address] [facility] | | | [place] [address] | + + + + + | Narrative | + + | INR Therapeutic ranges for full anticoagulation: INR for Venous | | Thromboembolism (2.0 - 3.0) INR INR for most patients with | | mech. valves (2.5 - 3.5) INR APTT Therapeutic | | Range: (75 - 120) sec Heparin levels | | of 0.35 - 0.7 U/mL | + + CBC, WITH DIFFERENTIAL (03/27/2017 11:14 PM) + + + | Specimen | Performing Laboratory | + + + | Blood | | + + + + + | Narrative | + + | The following orders were created for panel order CBC, WITH DIFFERENTIAL. | | Procedure | | Abnormality Status | | --------- | | ------ CBC AND AUTO | | DIFF[[id number]] Abnormal Final | | result Please view results for these tests on the | | individual orders. | + + PRODUCT - PLATELET PHERESIS LEUKOREDUCED (03/27/2017 1:59 AM) + + + + | Component | Value | Ref Range | + + + + | PRODUCT DESCRIPTION | PLATELETS PHERESIS, LEUKOCYTE REDUCED, | | | | IRRADIATED | | + + + + | PRODUCT UNIT # | [id number] | | + + + + | UNIT ABO | O | | + + + + | UNIT RH | POS | | + + + + | STATUS OF UNIT | Presumed Transfused | | + + + + | EXPIRATION DATE | [id number] | | + + + + | BLOOD TYPE BARCODE | 5100 | | + + + + | BLOOD PRODUCT CODE | [id number] | | + + + + + + + | Specimen | Performing Laboratory | + + + | | [facility], [facility] MEDICINE [address] [facility] | | | [place] [address] | + + + PRODUCT - RED CELLS LEUKOREDUCED (03/27/2017 1:59 AM) + + + + | Component | Value | Ref Range | + + + + | PRODUCT DESCRIPTION | -1 RED BLOOD CELLS ADENINE-SALINE ADDED | | | | LEUKOCYT | | + + + + | PRODUCT UNIT # | [id number] | | + + + + | UNIT ABO | O | | + + + + | UNIT RH | POS | | + + + + | STATUS OF UNIT | Presumed Transfused | | + + + + | EXPIRATION DATE | [id number] | | + + + + | BLOOD TYPE BARCODE | 5100 | | + + + + | BLOOD PRODUCT CODE | [id number] | | + + + + + + + | Specimen | Performing Laboratory | + + + | | [facility], [facility]SF[facility]ICINE [address] [facility] | | | [place] [address] | + + + ANTIBODY SCREEN (03/27/2017 1:59 AM) + + + + | Component | Value | Ref Range | + + + + | Antibody Screen | Negative | | + + + + + + + | Specimen | Performing Laboratory | + + + | Blood | [facility], [facility]SF[facility]ION MEDICINE [address] | | | [place] [address] | + + + ABO & RH TYPE (03/27/2017 1:59 AM) + + + + | Component | Value | Ref Range | + + + + | ABO Group | O | | + + + + | Rh Type | Positive | | + + + + + + + | Specimen | Performing Laboratory | + + + | Blood | [facility], [facility]SF[facility]ION MEDICINE [address] | | | [place] [address] | + + + TYPE AND SCREEN (03/27/2017 1:59 AM) + + + | Specimen | Performing Laboratory | + + + | Blood | | + + + + + | Narrative | + + | The following orders were created for panel order TYPE AND SCREEN. | | Procedure | | Abnormality Status | | --------- | | ------ ABO & RH | | TYPE[[id number]] F | | inal result ANTIBODY | | SCREEN[[id number]] Fin | | al result Please view results for these tests on the | | individual orders. | + + FREE T4 (03/26/2017 11:06 PM) + +---------+ + | Component | Value | Ref Range | + +---------+ + | FREE T4 | 1.4 (H) | 0.6 - 1.2 ng/dL | + +---------+ + + + + | Specimen | Performing Laboratory | + + + | Blood | [facility], CORE [address] [place] [address] | | [facility] [address] | + + + TSH W/REFLEX TO FREE T4(IF ABNORMAL) (03/26/2017 11:06 PM) + + + + | Component | Value | Ref Range | + + + + | TSH | 0.38 (L) | 0.50 - 5.07 mIU/L | + + + + + + + | Specimen | Performing Laboratory | + + + | Blood | [facility], [facility] [address] | | | [place] [address] | + + + + + | Narrative | + + | TSH reference ranges are influenced by a variety of environmental influences, age, | | gender and ethnicity. The supplied reference limits are based on published values | | utilizing a similar TSH assay, and should be interpreted with caution. | + + CBC AND AUTO DIFF (03/26/2017 11:06 PM) + + + + | Component | Value | Ref Range | + + + + | WHITE CELL COUNT | 0.11 (L) | 3.50 - 10.80 K/cu mm | + + + + | RED CELL COUNT | 2.39 (L) | 4.00 - 5.20 M/cu mm | + + + + | HEMOGLOBIN | 7.2 (L) | 12.0 - 16.0 g/dL | + + + + | HEMATOCRIT | 20.4 (L) | 36.0 - 46.0 % | + + + + | MCV | 85.4 | 80.0 - 96.0 fL | + + + + | MCHC | 35.3 | 33.0 - 35.5 g/dL | + + + + | RDW SD | 37.2 | 35.1 - 46.3 fL | + + + + | PLATELET COUNT | 8 (LL) | 150 - 400 K/cu mm | + + + + | MPV | 8.6 (L) | 9.7 - 12.3 fL | + + + + | NRBC% | 0.0 | 0.0 - 0.3 % | + + + + | NRBC# | 0.00 | 0.00 - 0.02 K/cu mm | + + + + | NEUTROPHIL % | Comment: WBC <300; differential not | 50.0 - 70.0 % | | | performed. | | + + + + | LYMPHOCYTE % | Comment: WBC <300; differential not | 18.0 - 42.0 % | | | performed. | | + + + + | MONOCYTE % | Comment: WBC <300; differential not | 3.5 - 9.0 % | | | performed. | | + + + + | EOS % | Comment: WBC <300; differential not | 1.0 - 3.0 % | | | performed. | | + + + + | BASO % | Comment: WBC <300; differential not | 0.0 - 2.0 % | | | performed. | | + + + + | IMMATURE | Comment: WBC <300; differential not | 0.0 - 0.6 % | | GRANULOCYTE% | performed. | | + + + + | NEUTROPHIL # | Comment: WBC <300; differential not | 1.80 - 7.70 K/cu mm | | | performed. | | + + + + | LYMPHOCYTE # | Comment: WBC <300; differential not | 1.00 - 4.80 K/cu mm | | | performed. | | + + + + | MONOCYTE # | Comment: WBC <300; differential not | 0.10 - 0.90 K/cu mm | | | performed. | | + + + + | EOS # | Comment: WBC <300; differential not | 0.00 - 0.50 K/cu mm | | | performed. | | + + + + | BASO # | Comment: WBC <300; differential not | 0.00 - 0.10 K/cu mm | | | performed. | | + + + + | IMMATURE | Comment: WBC <300; differential not | 0.00 - 0.03 K/cu mm | | GRANULOCYTE# | performed. | | + + + + + + + | Specimen | Performing Laboratory | + + + | Blood | [facility], CORE [address] | | | [place] [address] | + + + + + | Narrative | + + | Immature Granulocytes (IG) include metamyelocytes, myelocytes and | | promyelocytes. Bands are not included in the IG count. Bands are included in the | | neutrophil count. | + + PHOSPHORUS, PLASMA (03/26/2017 11:06 PM) + +-------+ + | Component | Value | Ref Range | + +-------+ + | PHOSPHORUS, PLASMA | 3.4 | 2.4 - 4.7 mg/dL | | (LAB) | | | + +-------+ + + + + | Specimen | Performing Laboratory | + + + | Blood | [facility], CORE [address] [facility] | | | [place] [address] | + + + MAGNESIUM, PLASMA (03/26/2017 11:06 PM) + +-------+ + | Component | Value | Ref Range | + +-------+ + | MAGNESIUM,PLASMA | 2.0 | 1.6 - 2.6 mg/dL | + +-------+ + + + + | Specimen | Performing Laboratory | + + + | Blood | [facility], CORE [address] [facility] | | | [place], [place] [address] | + + + + + | Narrative | + + | Reference range change effective 12/11/16. | + + COMPLETE METABOLIC SET (NA,K,CL,CO2,BUN,CREAT,GLUC,CA,AST,ALT,BILI TOTAL,ALK PHOS,ALB,PROT TOTAL) (03/26/2017 11:06 PM) + +---------+ + | Component | Value | Ref Range | + +---------+ + | GLUCOSE, PLASMA | 122 (H) | 70 - 99 mg/dL | | (LAB) | | | + +---------+ + | BUN, PLASMA (LAB) | 10 | 6 - 20 mg/dL | + +---------+ + | CREATININE PLASMA | 0.66 | 0.60 - 1.10 mg/dL | | (LAB) | | | + +---------+ + | EGFR - | >60 | >60 mL/min | | UKRAINIAN | | | + +---------+ + | EGFR NON | >60 | >60 mL/min | | -UKRAINIAN | | | + +---------+ + | SODIUM, PLASMA (LAB) | 139 | 136 - 145 mmol/L | + +---------+ + | POTASSIUM, PLASMA | 3.3 (L) | 3.4 - 5.0 mmol/L | | (LAB) | | | + +---------+ + | CHLORIDE, PLASMA | 105 | 97 - 108 mmol/L | | (LAB) | | | + +---------+ + | TOTAL CO2, PLASMA | 29 | 21 - 32 mmol/L | | (LAB) | | | + +---------+ + | CALCIUM, PLASMA | 8.8 | 8.6 - 10.2 mg/dL | | (LAB) | | | + +---------+ + | CALCIUM(ALB | 9.4 | 8.6 - 10.2 mg/dL | | CORRECTED) | | | + +---------+ + | BILIRUBIN TOTAL | 0.5 | 0.3 - 1.2 mg/dL | + +---------+ + | TOTAL PROTEIN, | 6.4 | 6.4 - 8.2 g/dL | | PLASMA (LAB) | | | + +---------+ + | ALBUMIN, PLASMA | 3.2 (L) | 3.5 - 4.7 g/dL | | (LAB) | | | + +---------+ + | ALK PHOS | 158 (H) | 42 - 98 U/L | + +---------+ + | AST(SGOT) | 18 | <=41 U/L | + +---------+ + | ALT (SGPT) | 38 | <=60 U/L | + +---------+ + | ANION GAP | 5 | mmol/L | + +---------+ + | ANION GAP(ALB | 7 | 4 - 11 mmol/L | | CORRECTED) | | | + +---------+ + | POTASSIUM CMNT | No Hemo | | + +---------+ + | BILI T CMNT | No Hemo | | + +---------+ + | AST CMNT | No Hemo | | + +---------+ + + + + | Specimen | Performing Laboratory | + + + | Blood | [facility], CORE [address] [facility] [address] | | | [place] [address] | + + + + + | Narrative | + + | Adult glucose reference range change effective 7-12-17. GFR is estimated using the | | MDRD equation recommended by the National Kidney Disease Education Program. | | Estimated GFR Interpretive Information: <60 mL/min/1.73 sq | | m Chronic Kidney Disease <15 mL/min/1.73 sq | | m Kidney Failure Estimated GFR greater that 60 mL/min/1.73 | | sq m is of limited clinical value. The MDRD equation is not valid in the following | | situations: - Patients under 18 years of age - Severe malnutrition or obesity - | | Vegetarian diet - Rapidly changing kidney function | + + COAGULOPATHY PANEL (INR,APTT,FIBRINOGEN) (03/26/2017 11:06 PM) + +---------+ + | Component | Value | Ref Range | + +---------+ + | INR | 1.05 | 0.90 - 1.20 INR | + +---------+ + | APTT | 31.3 | 26.0 - 36.0 seconds | + +---------+ + | FIBRINOGEN LEVEL | 472 (H) | 200 - 450 mg/dL | + +---------+ + + + + | Specimen | Performing Laboratory | + + + | Blood | [facility], [facility] [address] [place] [address] | | | [place] [address] | + + + + + | Narrative | + + | INR Therapeutic ranges for full anticoagulation: INR for Venous | | Thromboembolism (2.0 - 3.0) INR INR for most patients with | | mech. valves (2.5 - 3.5) INR APTT Therapeutic | | Range: (75 - 120) sec Heparin levels | | of 0.35 - 0.7 U/mL | + + CBC, WITH DIFFERENTIAL (03/26/2017 11:06 PM) + + + | Specimen | Performing Laboratory | + + + | Blood | | + + + + + | Narrative | + + | The following orders were created for panel order CBC, WITH DIFFERENTIAL. | | Procedure | | Abnormality Status | | --------- | | ------ CBC AND AUTO | | DIFF[[id number]] Abnormal Final | | result Please view results for these tests on the | | individual orders. | + + CBC AND AUTO DIFF (03/26/2017 12:03 AM) + + + + | Component | Value | Ref Range | + + + + | WHITE CELL COUNT | 0.10 (L) | 3.50 - 10.80 K/cu mm | + + + + | RED CELL COUNT | 2.52 (L) | 4.00 - 5.20 M/cu mm | + + + + | HEMOGLOBIN | 7.6 (L) | 12.0 - 16.0 g/dL | + + + + | HEMATOCRIT | 21.7 (L) | 36.0 - 46.0 % | + + + + | MCV | 86.1 | 80.0 - 96.0 fL | + + + + | MCHC | 35.0 | 33.0 - 35.5 g/dL | + + + + | RDW SD | 38.5 | 35.1 - 46.3 fL | + + + + | PLATELET COUNT | 12 (L) | 150 - 400 K/cu mm | + + + + | MPV | 8.9 (L) | 9.7 - 12.3 fL | + + + + | NRBC% | 20.0 (H) | 0.0 - 0.3 % | + + + + | NRBC# | 0.02 | 0.00 - 0.02 K/cu mm | + + + + | NEUTROPHIL % | Comment: WBC <300; differential not | 50.0 - 70.0 % | | | performed. | | + + + + | LYMPHOCYTE % | Comment: WBC <300; differential not | 18.0 - 42.0 % | | | performed. | | + + + + | MONOCYTE % | Comment: WBC <300; differential not | 3.5 - 9.0 % | | | performed. | | + + + + | EOS % | Comment: WBC <300; differential not | 1.0 - 3.0 % | | | performed. | | + + + + | BASO % | Comment: WBC <300; differential not | 0.0 - 2.0 % | | | performed. | | + + + + | IMMATURE | Comment: WBC <300; differential not | 0.0 - 0.6 % | | GRANULOCYTE% | performed. | | + + + + | NEUTROPHIL # | Comment: WBC <300; differential not | 1.80 - 7.70 K/cu mm | | | performed. | | + + + + | LYMPHOCYTE # | Comment: WBC <300; differential not | 1.00 - 4.80 K/cu mm | | | performed. | | + + + + | MONOCYTE # | Comment: WBC <300; differential not | 0.10 - 0.90 K/cu mm | | | performed. | | + + + + | EOS # | Comment: WBC <300; differential not | 0.00 - 0.50 K/cu mm | | | performed. | | + + + + | BASO # | Comment: WBC <300; differential not | 0.00 - 0.10 K/cu mm | | | performed. | | + + + + | IMMATURE | Comment: WBC <300; differential not | 0.00 - 0.03 K/cu mm | | GRANULOCYTE# | performed. | | + + + + + + + | Specimen | Performing Laboratory | + + + | Blood | [facility], CORE [address] [facility] | | | [place] [address] | + + + PHOSPHORUS, PLASMA (03/26/2017 12:03 AM) + +-------+ + | Component | Value | Ref Range | + +-------+ + | PHOSPHORUS, PLASMA | 4.0 | 2.4 - 4.7 mg/dL | | (LAB) | | | + +-------+ + + + + | Specimen | Performing Laboratory | + + + | Blood | [facility], CORE [address] [facility] | | | [place] [address] | + + + MAGNESIUM, PLASMA (03/26/2017 12:03 AM) + +-------+ + | Component | Value | Ref Range | + +-------+ + | MAGNESIUM,PLASMA | 2.0 | 1.6 - 2.6 mg/dL | + +-------+ + + + + | Specimen | Performing Laboratory | + + + | Blood | [facility], CORE [address] [facility] | | | [place] [address] | + + + + + | Narrative | + + | Reference range change effective 12/11/16. | + + COMPLETE METABOLIC SET (NA,K,CL,CO2,BUN,CREAT,GLUC,CA,AST,ALT,BILI TOTAL,ALK PHOS,ALB,PROT TOTAL) (03/26/2017 12:03 AM) + +---------+ + | Component | Value | Ref Range | + +---------+ + | GLUCOSE, PLASMA | 105 (H) | 70 - 99 mg/dL | | (LAB) | | | + +---------+ + | BUN, PLASMA (LAB) | 10 | 6 - 20 mg/dL | + +---------+ + | CREATININE PLASMA | 0.62 | 0.60 - 1.10 mg/dL | | (LAB) | | | + +---------+ + | EGFR - | >60 | >60 mL/min | | UKRAINIAN | | | + +---------+ + | EGFR NON | >60 | >60 mL/min | | -UKRAINIAN | | | + +---------+ + | SODIUM, PLASMA (LAB) | 140 | 136 - 145 mmol/L | + +---------+ + | POTASSIUM, PLASMA | 3.5 | 3.4 - 5.0 mmol/L | | (LAB) | | | + +---------+ + | CHLORIDE, PLASMA | 104 | 97 - 108 mmol/L | | (LAB) | | | + +---------+ + | TOTAL CO2, PLASMA | 30 | 21 - 32 mmol/L | | (LAB) | | | + +---------+ + | CALCIUM, PLASMA | 8.6 | 8.6 - 10.2 mg/dL | | (LAB) | | | + +---------+ + | CALCIUM(ALB | 9.2 | 8.6 - 10.2 mg/dL | | CORRECTED) | | | + +---------+ + | BILIRUBIN TOTAL | 0.5 | 0.3 - 1.2 mg/dL | + +---------+ + | TOTAL PROTEIN, | 6.4 | 6.4 - 8.2 g/dL | | PLASMA (LAB) | | | + +---------+ + | ALBUMIN, PLASMA | 3.2 (L) | 3.5 - 4.7 g/dL | | (LAB) | | | + +---------+ + | ALK PHOS | 157 (H) | 42 - 98 U/L | + +---------+ + | AST(SGOT) | 20 | <=41 U/L | + +---------+ + | ALT (SGPT) | 35 | <=60 U/L | + +---------+ + | ANION GAP | 6 | mmol/L | + +---------+ + | ANION GAP(ALB | 8 | 4 - 11 mmol/L | | CORRECTED) | | | + +---------+ + | POTASSIUM CMNT | No Hemo | | + +---------+ + | BILI T CMNT | No Hemo | | + +---------+ + | AST CMNT | No Hemo | | + +---------+ + + + + | Specimen | Performing Laboratory | + + + | Blood | [facility], [facility] [address] [facility] [address] | | | [place] [address] | + + + + + | Narrative | + + | Adult glucose reference range change effective 7-17. GFR is estimated using the | | MDRD equation recommended by the National Kidney Disease Education Program. | | Estimated GFR Interpretive Information: <60 mL/min/1.73 sq | | m Chronic Kidney Disease <15 mL/min/1.73 sq | | m Kidney Failure Estimated GFR greater that 60 mL/min/1.73 | | sq m is of limited clinical value. The MDRD equation is not valid in the following | | situations: - Patients under 18 years of age - Severe malnutrition or obesity - | | Vegetarian diet - Rapidly changing kidney function | + + COAGULOPATHY PANEL (INR,APTT,FIBRINOGEN) (03/26/2017 12:03 AM) + +---------+ + | Component | Value | Ref Range | + +---------+ + | INR | 1.02 | 0.90 - 1.20 INR | + +---------+ + | APTT | 31.7 | 26.0 - 36.0 seconds | + +---------+ + | FIBRINOGEN LEVEL | 472 (H) | 200 - 450 mg/dL | + +---------+ + + + + | Specimen | Performing Laboratory | + + + | Blood | [facility], CORE [address] [facility] [address] | | | [place] [address] | + + + + + | Narrative | + + | INR Therapeutic ranges for full anticoagulation: INR for Venous | | Thromboembolism (2.0 - 3.0) INR INR for most patients with | | mech. valves (2.5 - 3.5) INR APTT Therapeutic | | Range: (75 - 120) sec Heparin levels | | of 0.35 - 0.7 U/mL | + + CBC, WITH DIFFERENTIAL (03/26/2017 12:03 AM) + + + | Specimen | Performing Laboratory | + + + | Blood | | + + + + + | Narrative | + + | The following orders were created for panel order CBC, WITH DIFFERENTIAL. | | Procedure | | Abnormality Status | | --------- | | ------ CBC AND AUTO | | DIFF[[id number]] Abnormal Final | | result Please view results for these tests on the | | individual orders. | + + PRODUCT - PLATELET PHERESIS LEUKOREDUCED (03/25/2017 3:32 AM) + + + + | Component | Value | Ref Range | + + + + | PRODUCT DESCRIPTION | PLATELETS PHERESIS, LEUKOCYTE REDUCED, | | | | IRRADIATED | | + + + + | PRODUCT UNIT # | [id number] | | + + + + | UNIT ABO | O | | + + + + | UNIT RH | POS | | + + + + | STATUS OF UNIT | Presumed Transfused | | + + + + | EXPIRATION DATE | [id number] | | + + + + | BLOOD TYPE BARCODE | 5100 | | + + + + | BLOOD PRODUCT CODE | [id number] | | + + + + + + + | Specimen | Performing Laboratory | + + + | | [facility], TRANSFUSION MEDICINE [address] | | | [place] [address] | + + + PRODUCT - PLATELET PHERESIS LEUKOREDUCED (03/25/2017 2:04 AM) + + + + | Component | Value | Ref Range | + + + + | PRODUCT DESCRIPTION | PLATELETS PHERESIS, LEUKOCYTE REDUCED, | | | | IRRADIATED | | + + + + | PRODUCT UNIT # | [id number] | | + + + + | UNIT ABO | O | | + + + + | UNIT RH | POS | | + + + + | STATUS OF UNIT | Returned to Blood Bank | | + + + + | EXPIRATION DATE | [id number] | | + + + + | BLOOD TYPE BARCODE | 5100 | | + + + + | BLOOD PRODUCT CODE | [id number] | | + + + + + + + | Specimen | Performing Laboratory | + + + | | [facility], TRANSFUSION MEDICINE [address] [facility] | | | [place] [address] | + + + CBC AND AUTO DIFF (03/24/2017 11:12 PM) + + + + | Component | Value | Ref Range | + + + + | WHITE CELL COUNT | <0.10 (L) | 3.50 - 10.80 K/cu mm | + + + + | RED CELL COUNT | 2.59 (L) | 4.00 - 5.20 M/cu mm | + + + + | HEMOGLOBIN | 7.9 (L) | 12.0 - 16.0 g/dL | + + + + | HEMATOCRIT | 22.3 (L) | 36.0 - 46.0 % | + + + + | MCV | 86.1 | 80.0 - 96.0 fL | + + + + | MCHC | 35.4 | 33.0 - 35.5 g/dL | + + + + | RDW SD | 38.8 | 35.1 - 46.3 fL | + + + + | PLATELET COUNT | 9 (LL) | 150 - 400 K/cu mm | + + + + | MPV | 10.2 | 9.7 - 12.3 fL | + + + + | NRBC% | 0.0 | 0.0 - 0.3 % | + + + + | NRBC# | 0.00 | 0.00 - 0.02 K/cu mm | + + + + | NEUTROPHIL % | Comment: WBC <300; differential not | 50.0 - 70.0 % | | | performed. | | + + + + | LYMPHOCYTE % | Comment: WBC <300; differential not | 18.0 - 42.0 % | | | performed. | | + + + + | MONOCYTE % | Comment: WBC <300; differential not | 3.5 - 9.0 % | | | performed. | | + + + + | EOS % | Comment: WBC <300; differential not | 1.0 - 3.0 % | | | performed. | | + + + + | BASO % | Comment: WBC <300; differential not | 0.0 - 2.0 % | | | performed. | | + + + + | IMMATURE | Comment: WBC <300; differential not | 0.0 - 0.6 % | | GRANULOCYTE% | performed. | | + + + + | NEUTROPHIL # | Comment: WBC <300; differential not | 1.80 - 7.70 K/cu mm | | | performed. | | + + + + | LYMPHOCYTE # | Comment: WBC <300; differential not | 1.00 - 4.80 K/cu mm | | | performed. | | + + + + | MONOCYTE # | Comment: WBC <300; differential not | 0.10 - 0.90 K/cu mm | | | performed. | | + + + + | EOS # | Comment: WBC <300; differential not | 0.00 - 0.50 K/cu mm | | | performed. | | + + + + | BASO # | Comment: WBC <300; differential not | 0.00 - 0.10 K/cu mm | | | performed. | | + + + + | IMMATURE | Comment: WBC <300; differential not | 0.00 - 0.03 K/cu mm | | GRANULOCYTE# | performed. | | + + + + + + + | Specimen | Performing Laboratory | + + + | Blood | [facility], [facility] [address] | | | [place] [address] | + + + PHOSPHORUS, PLASMA (03/24/2017 11:12 PM) + +-------+ + | Component | Value | Ref Range | + +-------+ + | PHOSPHORUS, PLASMA | 3.6 | 2.4 - 4.7 mg/dL | | (LAB) | | | + +-------+ + + + + | Specimen | Performing Laboratory | + + + | Blood | [facility], [facility] [address] | | | [place] [address] | + + + LDH TOTAL, PLASMA (03/24/2017 11:12 PM) + +---------+ + | Component | Value | Ref Range | + +---------+ + | LD TOTAL, PLASMA | 200 | <=250 U/L | + +---------+ + | LD CMNT | No Hemo | | + +---------+ + + + + | Specimen | Performing Laboratory | + + + | Blood | [facility], [facility] [address] [facility] | | | [place] [address] | + + + MAGNESIUM, PLASMA (03/24/2017 11:12 PM) + +-------+ + | Component | Value | Ref Range | + +-------+ + | MAGNESIUM,PLASMA | 2.1 | 1.6 - 2.6 mg/dL | + +-------+ + + + + | Specimen | Performing Laboratory | + + + | Blood | [facility], [facility] [address] | | | [place] [address] | + + + + + | Narrative | + + | Reference range change effective 12/11/16. | + + COMPLETE METABOLIC SET (NA,K,CL,CO2,BUN,CREAT,GLUC,CA,AST,ALT,BILI TOTAL,ALK PHOS,ALB,PROT TOTAL) (03/24/2017 11:12 PM) + +---------+ + | Component | Value | Ref Range | + +---------+ + | GLUCOSE, PLASMA | 108 (H) | 70 - 99 mg/dL | | (LAB) | | | + +---------+ + | BUN, PLASMA (LAB) | 11 | 6 - 20 mg/dL | + +---------+ + | CREATININE PLASMA | 0.60 | 0.60 - 1.10 mg/dL | | (LAB) | | | + +---------+ + | EGFR - | >60 | >60 mL/min | | UKRAINIAN | | | + +---------+ + | EGFR NON | >60 | >60 mL/min | | -UKRAINIAN | | | + +---------+ + | SODIUM, PLASMA (LAB) | 142 | 136 - 145 mmol/L | + +---------+ + | POTASSIUM, PLASMA | 3.6 | 3.4 - 5.0 mmol/L | | (LAB) | | | + +---------+ + | CHLORIDE, PLASMA | 105 | 97 - 108 mmol/L | | (LAB) | | | + +---------+ + | TOTAL CO2, PLASMA | 30 | 21 - 32 mmol/L | | (LAB) | | | + +---------+ + | CALCIUM, PLASMA | 8.7 | 8.6 - 10.2 mg/dL | | (LAB) | | | + +---------+ + | CALCIUM(ALB | 9.4 | 8.6 - 10.2 mg/dL | | CORRECTED) | | | + +---------+ + | BILIRUBIN TOTAL | 0.6 | 0.3 - 1.2 mg/dL | + +---------+ + | TOTAL PROTEIN, | 6.5 | 6.4 - 8.2 g/dL | | PLASMA (LAB) | | | + +---------+ + | ALBUMIN, PLASMA | 3.1 (L) | 3.5 - 4.7 g/dL | | (LAB) | | | + +---------+ + | ALK PHOS | 153 (H) | 42 - 98 U/L | + +---------+ + | AST(SGOT) | 18 | <=41 U/L | + +---------+ + | ALT (SGPT) | 33 | <=60 U/L | + +---------+ + | ANION GAP | 7 | mmol/L | + +---------+ + | ANION GAP(ALB | 9 | 4 - 11 mmol/L | | CORRECTED) | | | + +---------+ + | POTASSIUM CMNT | No Hemo | | + +---------+ + | BILI T CMNT | No Hemo | | + +---------+ + | AST CMNT | No Hemo | | + +---------+ + + + + | Specimen | Performing Laboratory | + + + | Blood | [facility], [facility] [address] [facility] | | | [place] [address] | + + + + + | Narrative | + + | Adult glucose reference range change effective 7-12-17. GFR is estimated using the | | MDRD equation recommended by the National Kidney Disease Education Program. | | Estimated GFR Interpretive Information: <60 mL/min/1.73 sq | | m Chronic Kidney Disease <15 mL/min/1.73 sq | | m Kidney Failure Estimated GFR greater that 60 mL/min/1.73 | | sq m is of limited clinical value. The MDRD equation is not valid in the following | | situations: - Patients under 18 years of age - Severe malnutrition or obesity - | | Vegetarian diet - Rapidly changing kidney function | + + COAGULOPATHY PANEL (INR,APTT,FIBRINOGEN) (03/24/2017 11:12 PM) + +---------+ + | Component | Value | Ref Range | + +---------+ + | INR | 1.02 | 0.90 - 1.20 INR | + +---------+ + | APTT | 31.7 | 26.0 - 36.0 seconds | + +---------+ + | FIBRINOGEN LEVEL | 480 (H) | 200 - 450 mg/dL | + +---------+ + + + + | Specimen | Performing Laboratory | + + + | Blood | [facility], C[facility] [address] | | | [place] [address] | + + + + + | Narrative | + + | INR Therapeutic ranges for full anticoagulation: INR for Venous | | Thromboembolism (2.0 - 3.0) INR INR for most patients with | | mech. valves (2.5 - 3.5) INR APTT Therapeutic | | Range: (75 - 120) sec Heparin levels | | of 0.35 - 0.7 U/mL | + + CBC, WITH DIFFERENTIAL (03/24/2017 11:12 PM) + + + | Specimen | Performing Laboratory | + + + | Blood | | + + + + + | Narrative | + + | The following orders were created for panel order CBC, WITH DIFFERENTIAL. | | Procedure | | Abnormality Status | | --------- | | ------ CBC AND AUTO | | DIFF[[id number]] Abnormal Final | | result Please view results for these tests on the | | individual orders. | + + VRE (FRANCISCO) BY PCR (03/24/2017 4:15 PM) + + + + | Component | Value | Ref Range | + + + + | VRE BY PCR | Negative for van A gene | Negative for van A | | | | gene | + + + + + + + | Specimen | Performing Laboratory | + + + | Swab - Rectum | [facility], [facility] [address] | | | [place] [address] | + + + CBC AND AUTO DIFF (03/23/2017 11:08 PM) + + + + | Component | Value | Ref Range | + + + + | WHITE CELL COUNT | <0.10 (L) | 3.50 - 10.80 K/cu mm | + + + + | RED CELL COUNT | 2.64 (L) | 4.00 - 5.20 M/cu mm | + + + + | HEMOGLOBIN | 8.0 (L) | 12.0 - 16.0 g/dL | + + + + | HEMATOCRIT | 23.3 (L) | 36.0 - 46.0 % | + + + + | MCV | 88.3 | 80.0 - 96.0 fL | + + + + | MCHC | 34.3 | 33.0 - 35.5 g/dL | + + + + | RDW SD | 41.1 | 35.1 - 46.3 fL | + + + + | PLATELET COUNT | 14 (L) | 150 - 400 K/cu mm | + + + + | MPV | 10.2 | 9.7 - 12.3 fL | + + + + | NRBC% | 0.0 | 0.0 - 0.3 % | + + + + | NRBC# | 0.00 | 0.00 - 0.02 K/cu mm | + + + + | NEUTROPHIL % | Comment: WBC <300; differential not | 50.0 - 70.0 % | | | performed. | | + + + + | LYMPHOCYTE % | Comment: WBC <300; differential not | 18.0 - 42.0 % | | | performed. | | + + + + | MONOCYTE % | Comment: WBC <300; differential not | 3.5 - 9.0 % | | | performed. | | + + + + | EOS % | Comment: WBC <300; differential not | 1.0 - 3.0 % | | | performed. | | + + + + | BASO % | Comment: WBC <300; differential not | 0.0 - 2.0 % | | | performed. | | + + + + | IMMATURE | Comment: WBC <300; differential not | 0.0 - 0.6 % | | GRANULOCYTE% | performed. | | + + + + | NEUTROPHIL # | Comment: WBC <300; differential not | 1.80 - 7.70 K/cu mm | | | performed. | | + + + + | LYMPHOCYTE # | Comment: WBC <300; differential not | 1.00 - 4.80 K/cu mm | | | performed. | | + + + + | MONOCYTE # | Comment: WBC <300; differential not | 0.10 - 0.90 K/cu mm | | | performed. | | + + + + | EOS # | Comment: WBC <300; differential not | 0.00 - 0.50 K/cu mm | | | performed. | | + + + + | BASO # | Comment: WBC <300; differential not | 0.00 - 0.10 K/cu mm | | | performed. | | + + + + | IMMATURE | Comment: WBC <300; differential not | 0.00 - 0.03 K/cu mm | | GRANULOCYTE# | performed. | | + + + + + + + | Specimen | Performing Laboratory | + + + | Blood | [facility], [facility] [address] [facility] [address] | | | [place] [address] | + + + PHOSPHORUS, PLASMA (03/23/2017 11:08 PM) + +-------+ + | Component | Value | Ref Range | + +-------+ + | PHOSPHORUS, PLASMA | 3.7 | 2.4 - 4.7 mg/dL | | (LAB) | | | + +-------+ + + + + | Specimen | Performing Laboratory | + + + | Blood | [facility], [facility] [address] [facility] | | | [place] [address] | + + + MAGNESIUM, PLASMA (03/23/2017 11:08 PM) + +-------+ + | Component | Value | Ref Range | + +-------+ + | MAGNESIUM,PLASMA | 2.1 | 1.6 - 2.6 mg/dL | + +-------+ + + + + | Specimen | Performing Laboratory | + + + | Blood | [facility], [facility] [address] [facility] | | | [place], [place] [address] | + + + + + | Narrative | + + | Reference range change effective 8/15/17. | + + COMPLETE METABOLIC SET (NA,K,CL,CO2,BUN,CREAT,GLUC,CA,AST,ALT,BILI TOTAL,ALK PHOS,ALB,PROT TOTAL) (03/23/2017 11:08 PM) + +---------+ + | Component | Value | Ref Range | + +---------+ + | GLUCOSE, PLASMA | 98 | 70 - 99 mg/dL | | (LAB) | | | + +---------+ + | BUN, PLASMA (LAB) | 11 | 6 - 20 mg/dL | + +---------+ + | CREATININE PLASMA | 0.62 | 0.60 - 1.10 mg/dL | | (LAB) | | | + +---------+ + | EGFR - | >60 | >60 mL/min | | UKRAINIAN | | | + +---------+ + | EGFR NON | >60 | >60 mL/min | | -UKRAINIAN | | | + +---------+ + | SODIUM, PLASMA (LAB) | 141 | 136 - 145 mmol/L | + +---------+ + | POTASSIUM, PLASMA | 3.6 | 3.4 - 5.0 mmol/L | | (LAB) | | | + +---------+ + | CHLORIDE, PLASMA | 103 | 97 - 108 mmol/L | | (LAB) | | | + +---------+ + | TOTAL CO2, PLASMA | 32 | 21 - 32 mmol/L | | (LAB) | | | + +---------+ + | CALCIUM, PLASMA | 9.1 | 8.6 - 10.2 mg/dL | | (LAB) | | | + +---------+ + | CALCIUM(ALB | 9.7 | 8.6 - 10.2 mg/dL | | CORRECTED) | | | + +---------+ + | BILIRUBIN TOTAL | 0.5 | 0.3 - 1.2 mg/dL | + +---------+ + | TOTAL PROTEIN, | 6.5 | 6.4 - 8.2 g/dL | | PLASMA (LAB) | | | + +---------+ + | ALBUMIN, PLASMA | 3.2 (L) | 3.5 - 4.7 g/dL | | (LAB) | | | + +---------+ + | ALK PHOS | 160 (H) | 42 - 98 U/L | + +---------+ + | AST(SGOT) | 21 | <=41 U/L | + +---------+ + | ALT (SGPT) | 33 | <=60 U/L | + +---------+ + | ANION GAP | 6 | mmol/L | + +---------+ + | ANION GAP(ALB | 8 | 4 - 11 mmol/L | | CORRECTED) | | | + +---------+ + | POTASSIUM CMNT | No Hemo | | + +---------+ + | BILI T CMNT | No Hemo | | + +---------+ + | AST CMNT | No Hemo | | + +---------+ + + + + | Specimen | Performing Laboratory | + + + | Blood | [facility], [facility] [address] | | | [place] [address] | + + + + + | Narrative | + + | Adult glucose reference range change effective 712-17. GFR is estimated using the | | MDRD equation recommended by the National Kidney Disease Education Program. | | Estimated GFR Interpretive Information: <60 mL/min/1.73 sq | | m Chronic Kidney Disease <15 mL/min/1.73 sq | | m Kidney Failure Estimated GFR greater that 60 mL/min/1.73 | | sq m is of limited clinical value. The MDRD equation is not valid in the following | | situations: - Patients under 18 years of age - Severe malnutrition or obesity - | | Vegetarian diet - Rapidly changing kidney function | + + COAGULOPATHY PANEL (INR,APTT,FIBRINOGEN) (03/23/2017 11:08 PM) + +-------+ + | Component | Value | Ref Range | + +-------+ + | INR | 1.01 | 0.90 - 1.20 INR | + +-------+ + | APTT | 30.3 | 26.0 - 36.0 seconds | + +-------+ + | FIBRINOGEN LEVEL | 450 | 200 - 450 mg/dL | + +-------+ + + + + | Specimen | Performing Laboratory | + + + | Blood | [facility], [facility] [address] [facility] | | | [place] [address] | + + + + + | Narrative | + + | INR Therapeutic ranges for full anticoagulation: INR for Venous | | Thromboembolism (2.0 - 3.0) INR INR for most patients with | | mech. valves (2.5 - 3.5) INR APTT Therapeutic | | Range: (75 - 120) sec Heparin levels | | of 0.35 - 0.7 U/mL | + + CBC, WITH DIFFERENTIAL (03/23/2017 11:08 PM) + + + | Specimen | Performing Laboratory | + + + | Blood | | + + + + + | Narrative | + + | The following orders were created for panel order CBC, WITH DIFFERENTIAL. | | Procedure | | Abnormality Status | | --------- | | ------ CBC AND AUTO | | DIFF[[id number]] Abnormal Final | | result Please view results for these tests on the | | individual orders. | + + PRODUCT - PLATELET PHERESIS LEUKOREDUCED (03/23/2017 12:45 AM) + + + + | Component | Value | Ref Range | + + + + | PRODUCT DESCRIPTION | APHERESIS | | | | PLATELETS,PAS,LEUKOREDUCED,IRRADIATED | | + + + + | PRODUCT UNIT # | [id number] | | + + + + | UNIT ABO | O | | + + + + | UNIT RH | POS | | + + + + | STATUS OF UNIT | Presumed Transfused | | + + + + | EXPIRATION DATE | [id number] | | + + + + | BLOOD TYPE BARCODE | 5100 | | + + + + | BLOOD PRODUCT CODE | [id number] | | + + + + + + + | Specimen | Performing Laboratory | + + + | | [facility], [facility] [address] | | | [place] [address] | + + + PRODUCT - RED CELLS LEUKOREDUCED (03/23/2017 12:45 AM) + + + + | Component | Value | Ref Range | + + + + | PRODUCT DESCRIPTION | -1 RED BLOOD CELLS ADENINE-SALINE ADDED | | | | LEUKOCYT | | + + + + | PRODUCT UNIT # | [id number] | | + + + + | UNIT ABO | O | | + + + + | UNIT RH | POS | | + + + + | STATUS OF UNIT | Presumed Transfused | | + + + + | EXPIRATION DATE | [id number] | | + + + + | BLOOD TYPE BARCODE | 5100 | | + + + + | BLOOD PRODUCT CODE | [id number] | | + + + + + + + | Specimen | Performing Laboratory | + + + | | [facility], [facility] [address] [place] [address] | | | [place] [address] | + + + ANTIBODY SCREEN (03/23/2017 12:45 AM) + + + + | Component | Value | Ref Range | + + + + | Antibody Screen | Negative | | + + + + + + + | Specimen | Performing Laboratory | + + + | Blood | [facility], [facility] [address] [facility] | | | [place] [address] | + + + ABO & RH TYPE (03/23/2017 12:45 AM) + + + + | Component | Value | Ref Range | + + + + | ABO Group | O | | + + + + | Rh Type | Positive | | + + + + + + + | Specimen | Performing Laboratory | + + + | Blood | [facility], [facility] [address] [facility] | | | [place] [address] | + + + TYPE AND SCREEN (03/23/2017 12:45 AM) + + + | Specimen | Performing Laboratory | + + + | Blood | | + + + + + | Narrative | + + | The following orders were created for panel order TYPE AND SCREEN. | | Procedure | | Abnormality Status | | --------- | | ------ ABO & RH | | TYPE[[id number]] F | | inal result ANTIBODY | | SCREEN[[id number]] Fin | | al result Please view results for these tests on the | | individual orders. | + + CBC AND AUTO DIFF (03/22/2017 11:39 PM) + + + + | Component | Value | Ref Range | + + + + | WHITE CELL COUNT | <0.10 (L) | 3.50 - 10.80 K/cu mm | + + + + | RED CELL COUNT | 2.21 (L) | 4.00 - 5.20 M/cu mm | + + + + | HEMOGLOBIN | 6.8 (L) | 12.0 - 16.0 g/dL | + + + + | HEMATOCRIT | 19.6 (L) | 36.0 - 46.0 % | + + + + | MCV | 88.7 | 80.0 - 96.0 fL | + + + + | MCHC | 34.7 | 33.0 - 35.5 g/dL | + + + + | RDW SD | 38.2 | 35.1 - 46.3 fL | + + + + | PLATELET COUNT | 5 (LL) | 150 - 400 K/cu mm | + + + + | MPV | 8.2 (L) | 9.7 - 12.3 fL | + + + + | NRBC% | 0.0 | 0.0 - 0.3 % | + + + + | NRBC# | 0.00 | 0.00 - 0.02 K/cu mm | + + + + | NEUTROPHIL % | Comment: WBC <300; differential not | 50.0 - 70.0 % | | | performed. | | + + + + | LYMPHOCYTE % | Comment: WBC <300; differential not | 18.0 - 42.0 % | | | performed. | | + + + + | MONOCYTE % | Comment: WBC <300; differential not | 3.5 - 9.0 % | | | performed. | | + + + + | EOS % | Comment: WBC <300; differential not | 1.0 - 3.0 % | | | performed. | | + + + + | BASO % | Comment: WBC <300; differential not | 0.0 - 2.0 % | | | performed. | | + + + + | IMMATURE | Comment: WBC <300; differential not | 0.0 - 0.6 % | | GRANULOCYTE% | performed. | | + + + + | NEUTROPHIL # | Comment: WBC <300; differential not | 1.80 - 7.70 K/cu mm | | | performed. | | + + + + | LYMPHOCYTE # | Comment: WBC <300; differential not | 1.00 - 4.80 K/cu mm | | | performed. | | + + + + | MONOCYTE # | Comment: WBC <300; differential not | 0.10 - 0.90 K/cu mm | | | performed. | | + + + + | EOS # | Comment: WBC <300; differential not | 0.00 - 0.50 K/cu mm | | | performed. | | + + + + | BASO # | Comment: WBC <300; differential not | 0.00 - 0.10 K/cu mm | | | performed. | | + + + + | IMMATURE | Comment: WBC <300; differential not | 0.00 - 0.03 K/cu mm | | GRANULOCYTE# | performed. | | + + + + + + + | Specimen | Performing Laboratory | + + + | Blood | [facility], [facility] [address] | | | [place] [address] | + + + PHOSPHORUS, PLASMA (03/22/2017 11:39 PM) + +-------+ + | Component | Value | Ref Range | + +-------+ + | PHOSPHORUS, PLASMA | 4.1 | 2.4 - 4.7 mg/dL | | (LAB) | | | + +-------+ + + + + | Specimen | Performing Laboratory | + + + | Blood | [facility], [facility] [address] [facility] | | | [place] [address] | + + + MAGNESIUM, PLASMA (03/22/2017 11:39 PM) + +-------+ + | Component | Value | Ref Range | + +-------+ + | MAGNESIUM,PLASMA | 2.2 | 1.6 - 2.6 mg/dL | + +-------+ + + + + | Specimen | Performing Laboratory | + + + | Blood | [facility], [facility] [address] [facility] [address] | | | [place] [address] | + + + + + | Narrative | + + | Reference range change effective 12/11/16. | + + COMPLETE METABOLIC SET (NA,K,CL,CO2,BUN,CREAT,GLUC,CA,AST,ALT,BILI TOTAL,ALK PHOS,ALB,PROT TOTAL) (03/22/2017 11:39 PM) + +---------+ + | Component | Value | Ref Range | + +---------+ + | GLUCOSE, PLASMA | 101 (H) | 70 - 99 mg/dL | | (LAB) | | | + +---------+ + | BUN, PLASMA (LAB) | 10 | 6 - 20 mg/dL | + +---------+ + | CREATININE PLASMA | 0.69 | 0.60 - 1.10 mg/dL | | (LAB) | | | + +---------+ + | EGFR - | >60 | >60 mL/min | | UKRAINIAN | | | + +---------+ + | EGFR NON | >60 | >60 mL/min | | -UKRAINIAN | | | + +---------+ + | SODIUM, PLASMA (LAB) | 144 | 136 - 145 mmol/L | + +---------+ + | POTASSIUM, PLASMA | 3.7 | 3.4 - 5.0 mmol/L | | (LAB) | | | + +---------+ + | CHLORIDE, PLASMA | 105 | 97 - 108 mmol/L | | (LAB) | | | + +---------+ + | TOTAL CO2, PLASMA | 31 | 21 - 32 mmol/L | | (LAB) | | | + +---------+ + | CALCIUM, PLASMA | 8.6 | 8.6 - 10.2 mg/dL | | (LAB) | | | + +---------+ + | CALCIUM(ALB | 9.4 | 8.6 - 10.2 mg/dL | | CORRECTED) | | | + +---------+ + | BILIRUBIN TOTAL | 0.5 | 0.3 - 1.2 mg/dL | + +---------+ + | TOTAL PROTEIN, | 6.2 (L) | 6.4 - 8.2 g/dL | | PLASMA (LAB) | | | + +---------+ + | ALBUMIN, PLASMA | 3.0 (L) | 3.5 - 4.7 g/dL | | (LAB) | | | + +---------+ + | ALK PHOS | 146 (H) | 42 - 98 U/L | + +---------+ + | AST(SGOT) | 18 | <=41 U/L | + +---------+ + | ALT (SGPT) | 30 | <=60 U/L | + +---------+ + | ANION GAP | 8 | mmol/L | + +---------+ + | ANION GAP(ALB | 10 | 4 - 11 mmol/L | | CORRECTED) | | | + +---------+ + | POTASSIUM CMNT | No Hemo | | + +---------+ + | BILI T CMNT | No Hemo | | + +---------+ + | AST CMNT | No Hemo | | + +---------+ + + + + | Specimen | Performing Laboratory | + + + | Blood | [facility], [facility] [address] [facility] | | | [place] [address] | + + + + + | Narrative | + + | Adult glucose reference range change effective 7-12-17. GFR is estimated using the | | MDRD equation recommended by the National Kidney Disease Education Program. | | Estimated GFR Interpretive Information: <60 mL/min/1.73 sq | | m Chronic Kidney Disease <15 mL/min/1.73 sq | | m Kidney Failure Estimated GFR greater that 60 mL/min/1.73 | | sq m is of limited clinical value. The MDRD equation is not valid in the following | | situations: - Patients under 18 years of age - Severe malnutrition or obesity - | | Vegetarian diet - Rapidly changing kidney function | + + COAGULOPATHY PANEL (INR,APTT,FIBRINOGEN) (03/22/2017 11:39 PM) + +---------+ + | Component | Value | Ref Range | + +---------+ + | INR | 1.02 | 0.90 - 1.20 INR | + +---------+ + | APTT | 32.2 | 26.0 - 36.0 seconds | + +---------+ + | FIBRINOGEN LEVEL | 457 (H) | 200 - 450 mg/dL | + +---------+ + + + + | Specimen | Performing Laboratory | + + + | Blood | [facility], C[facility] [address] | | | [place] [address] | + + + + + | Narrative | + + | INR Therapeutic ranges for full anticoagulation: INR for Venous | | Thromboembolism (2.0 - 3.0) INR INR for most patients with | | mech. valves (2.5 - 3.5) INR APTT Therapeutic | | Range: (75 - 120) sec Heparin levels | | of 0.35 - 0.7 U/mL | + + CBC, WITH DIFFERENTIAL (03/22/2017 11:39 PM) + + + | Specimen | Performing Laboratory | + + + | Blood | | + + + + + | Narrative | + + | The following orders were created for panel order CBC, WITH DIFFERENTIAL. | | Procedure | | Abnormality Status | | --------- | | ------ CBC AND AUTO | | DIFF[[id number]] Abnormal Final | | result Please view results for these tests on the | | individual orders. | + + VANCOMYCIN, TROUGH (03/22/2017 4:37 AM) + +-------+ + | Component | Value | Ref Range | + +-------+ + | VANCOMYCIN, TROUGH | 17.2 | 10.0 - 20.0 ug/mL | + +-------+ + + + + | Specimen | Performing Laboratory | + + + | Blood | [facility], [facility] [address] [facility] [address] | | | [place] [address] | + + + + + | Narrative | + + | Draw prior to AM dose Reference range change effective 01/21/2017. | + + CBC AND AUTO DIFF (03/21/2017 11:08 PM) + + + + | Component | Value | Ref Range | + + + + | WHITE CELL COUNT | <0.10 (L) | 3.50 - 10.80 K/cu mm | + + + + | RED CELL COUNT | 2.40 (L) | 4.00 - 5.20 M/cu mm | + + + + | HEMOGLOBIN | 7.3 (L) | 12.0 - 16.0 g/dL | + + + + | HEMATOCRIT | 21.6 (L) | 36.0 - 46.0 % | + + + + | MCV | 90.0 | 80.0 - 96.0 fL | + + + + | MCHC | 33.8 | 33.0 - 35.5 g/dL | + + + + | RDW SD | 38.8 | 35.1 - 46.3 fL | + + + + | PLATELET COUNT | 12 (L) | 150 - 400 K/cu mm | + + + + | MPV | 9.6 (L) | 9.7 - 12.3 fL | + + + + | NRBC% | 0.0 | 0.0 - 0.3 % | + + + + | NRBC# | 0.00 | 0.00 - 0.02 K/cu mm | + + + + | NEUTROPHIL % | Comment: WBC <300; differential not | 50.0 - 70.0 % | | | performed. | | + + + + | LYMPHOCYTE % | Comment: WBC <300; differential not | 18.0 - 42.0 % | | | performed. | | + + + + | MONOCYTE % | Comment: WBC <300; differential not | 3.5 - 9.0 % | | | performed. | | + + + + | EOS % | Comment: WBC <300; differential not | 1.0 - 3.0 % | | | performed. | | + + + + | BASO % | Comment: WBC <300; differential not | 0.0 - 2.0 % | | | performed. | | + + + + | IMMATURE | Comment: WBC <300; differential not | 0.0 - 0.6 % | | GRANULOCYTE% | performed. | | + + + + | NEUTROPHIL # | Comment: WBC <300; differential not | 1.80 - 7.70 K/cu mm | | | performed. | | + + + + | LYMPHOCYTE # | Comment: WBC <300; differential not | 1.00 - 4.80 K/cu mm | | | performed. | | + + + + | MONOCYTE # | Comment: WBC <300; differential not | 0.10 - 0.90 K/cu mm | | | performed. | | + + + + | EOS # | Comment: WBC <300; differential not | 0.00 - 0.50 K/cu mm | | | performed. | | + + + + | BASO # | Comment: WBC <300; differential not | 0.00 - 0.10 K/cu mm | | | performed. | | + + + + | IMMATURE | Comment: WBC <300; differential not | 0.00 - 0.03 K/cu mm | | GRANULOCYTE# | performed. | | + + + + + + + | Specimen | Performing Laboratory | + + + | Blood | [facility], [facility] [address] | | | [facility] [address] | + + + PHOSPHORUS, PLASMA (03/21/2017 11:08 PM) + +-------+ + | Component | Value | Ref Range | + +-------+ + | PHOSPHORUS, PLASMA | 4.1 | 2.4 - 4.7 mg/dL | | (LAB) | | | + +-------+ + + + + | Specimen | Performing Laboratory | + + + | Blood | [facility], [place] [address] | | | [place] [address] | + + + MAGNESIUM, PLASMA (03/21/2017 11:08 PM) + +-------+ + | Component | Value | Ref Range | + +-------+ + | MAGNESIUM,PLASMA | 1.9 | 1.6 - 2.6 mg/dL | + +-------+ + + + + | Specimen | Performing Laboratory | + + + | Blood | [facility], [facility] [address] [facility] [address] | | | [place] [address] | + + + + + | Narrative | + + | Reference range change effective 12/11/16. | + + COMPLETE METABOLIC SET (NA,K,CL,CO2,BUN,CREAT,GLUC,CA,AST,ALT,BILI TOTAL,ALK PHOS,ALB,PROT TOTAL) (03/21/2017 11:08 PM) + +---------+ + | Component | Value | Ref Range | + +---------+ + | GLUCOSE, PLASMA | 116 (H) | 70 - 99 mg/dL | | (LAB) | | | + +---------+ + | BUN, PLASMA (LAB) | 11 | 6 - 20 mg/dL | + +---------+ + | CREATININE PLASMA | 0.66 | 0.60 - 1.10 mg/dL | | (LAB) | | | + +---------+ + | EGFR - | >60 | >60 mL/min | | UKRAINIAN | | | + +---------+ + | EGFR NON | >60 | >60 mL/min | | -UKRAINIAN | | | + +---------+ + | SODIUM, PLASMA (LAB) | 139 | 136 - 145 mmol/L | + +---------+ + | POTASSIUM, PLASMA | 3.5 | 3.4 - 5.0 mmol/L | | (LAB) | | | + +---------+ + | CHLORIDE, PLASMA | 103 | 97 - 108 mmol/L | | (LAB) | | | + +---------+ + | TOTAL CO2, PLASMA | 29 | 21 - 32 mmol/L | | (LAB) | | | + +---------+ + | CALCIUM, PLASMA | 8.6 | 8.6 - 10.2 mg/dL | | (LAB) | | | + +---------+ + | CALCIUM(ALB | 9.3 | 8.6 - 10.2 mg/dL | | CORRECTED) | | | + +---------+ + | BILIRUBIN TOTAL | 0.6 | 0.3 - 1.2 mg/dL | + +---------+ + | TOTAL PROTEIN, | 6.4 | 6.4 - 8.2 g/dL | | PLASMA (LAB) | | | + +---------+ + | ALBUMIN, PLASMA | 3.1 (L) | 3.5 - 4.7 g/dL | | (LAB) | | | + +---------+ + | ALK PHOS | 156 (H) | 42 - 98 U/L | + +---------+ + | AST(SGOT) | 15 | <=41 U/L | + +---------+ + | ALT (SGPT) | 32 | <=60 U/L | + +---------+ + | ANION GAP | 7 | mmol/L | + +---------+ + | ANION GAP(ALB | 9 | 4 - 11 mmol/L | | CORRECTED) | | | + +---------+ + | POTASSIUM CMNT | No Hemo | | + +---------+ + | BILI T CMNT | No Hemo | | + +---------+ + | AST CMNT | No Hemo | | + +---------+ + + + + | Specimen | Performing Laboratory | + + + | Blood | [facility], [address] [facility] | | | [place], [place] [address] | + + + + + | Narrative | + + | Adult glucose reference range change effective 7--17. GFR is estimated using the | | MDRD equation recommended by the National Kidney Disease Education Program. | | Estimated GFR Interpretive Information: <60 mL/min/1.73 sq | | m Chronic Kidney Disease <15 mL/min/1.73 sq | | m Kidney Failure Estimated GFR greater that 60 mL/min/1.73 | | sq m is of limited clinical value. The MDRD equation is not valid in the following | | situations: - Patients under 18 years of age - Severe malnutrition or obesity - | | Vegetarian diet - Rapidly changing kidney function | + + COAGULOPATHY PANEL (INR,APTT,FIBRINOGEN) (03/21/2017 11:08 PM) + +---------+ + | Component | Value | Ref Range | + +---------+ + | INR | 1.08 | 0.90 - 1.20 INR | + +---------+ + | APTT | 31.7 | 26.0 - 36.0 seconds | + +---------+ + | FIBRINOGEN LEVEL | 472 (H) | 200 - 450 mg/dL | + +---------+ + + + + | Specimen | Performing Laboratory | + + + | Blood | [facility], [address] [facility] | | | [place] [address] | + + + + + | Narrative | + + | INR Therapeutic ranges for full anticoagulation: INR for Venous | | Thromboembolism (2.0 - 3.0) INR INR for most patients with | | mech. valves (2.5 - 3.5) INR APTT Therapeutic | | Range: (75 - 120) sec Heparin levels | | of 0.35 - 0.7 U/mL | + + CBC, WITH DIFFERENTIAL (03/21/2017 11:08 PM) + + + | Specimen | Performing Laboratory | + + + | Blood | | + + + + + | Narrative | + + | The following orders were created for panel order CBC, WITH DIFFERENTIAL. | | Procedure | | Abnormality Status | | --------- | | ------ CBC AND AUTO | | DIFF[[id number]] Abnormal Final | | result Please view results for these tests on the | | individual orders. | + + CBC AND AUTO DIFF (03/21/2017 12:34 AM) + + + + | Component | Value | Ref Range | + + + + | WHITE CELL COUNT | <0.10 (L) | 3.50 - 10.80 K/cu mm | + + + + | RED CELL COUNT | 2.38 (L) | 4.00 - 5.20 M/cu mm | + + + + | HEMOGLOBIN | 7.5 (L) | 12.0 - 16.0 g/dL | + + + + | HEMATOCRIT | 21.4 (L) | 36.0 - 46.0 % | + + + + | MCV | 89.9 | 80.0 - 96.0 fL | + + + + | MCHC | 35.0 | 33.0 - 35.5 g/dL | + + + + | RDW SD | 39.8 | 35.1 - 46.3 fL | + + + + | PLATELET COUNT | 16 (L) | 150 - 400 K/cu mm | + + + + | MPV | 8.6 (L) | 9.7 - 12.3 fL | + + + + | NRBC% | 0.0 | 0.0 - 0.3 % | + + + + | NRBC# | 0.00 | 0.00 - 0.02 K/cu mm | + + + + | NEUTROPHIL % | Comment: WBC <300; differential not | 50.0 - 70.0 % | | | performed. | | + + + + | LYMPHOCYTE % | Comment: WBC <300; differential not | 18.0 - 42.0 % | | | performed. | | + + + + | MONOCYTE % | Comment: WBC <300; differential not | 3.5 - 9.0 % | | | performed. | | + + + + | EOS % | Comment: WBC <300; differential not | 1.0 - 3.0 % | | | performed. | | + + + + | BASO % | Comment: WBC <300; differential not | 0.0 - 2.0 % | | | performed. | | + + + + | IMMATURE | Comment: WBC <300; differential not | 0.0 - 0.6 % | | GRANULOCYTE% | performed. | | + + + + | NEUTROPHIL # | Comment: WBC <300; differential not | 1.80 - 7.70 K/cu mm | | | performed. | | + + + + | LYMPHOCYTE # | Comment: WBC <300; differential not | 1.00 - 4.80 K/cu mm | | | performed. | | + + + + | MONOCYTE # | Comment: WBC <300; differential not | 0.10 - 0.90 K/cu mm | | | performed. | | + + + + | EOS # | Comment: WBC <300; differential not | 0.00 - 0.50 K/cu mm | | | performed. | | + + + + | BASO # | Comment: WBC <300; differential not | 0.00 - 0.10 K/cu mm | | | performed. | | + + + + | IMMATURE | Comment: WBC <300; differential not | 0.00 - 0.03 K/cu mm | | GRANULOCYTE# | performed. | | + + + + + + + | Specimen | Performing Laboratory | + + + | Blood | [facility], [address] [facility] | | | [place] [address] | + + + PHOSPHORUS, PLASMA (03/21/2017 12:34 AM) + +-------+ + | Component | Value | Ref Range | + +-------+ + | PHOSPHORUS, PLASMA | 3.8 | 2.4 - 4.7 mg/dL | | (LAB) | | | + +-------+ + + + + | Specimen | Performing Laboratory | + + + | Blood | [facility], [facility] [address] [facility] | | | [place] [address] | + + + LDH TOTAL, PLASMA (03/21/2017 12:34 AM) + +---------+ + | Component | Value | Ref Range | + +---------+ + | LD TOTAL, PLASMA | 268 (H) | <=250 U/L | + +---------+ + | LD CMNT | No Hemo | | + +---------+ + + + + | Specimen | Performing Laboratory | + + + | Blood | [facility], [address] [facility] [address] | | | [place] [address] | + + + MAGNESIUM, PLASMA (03/21/2017 12:34 AM) + +-------+ + | Component | Value | Ref Range | + +-------+ + | MAGNESIUM,PLASMA | 1.9 | 1.6 - 2.6 mg/dL | + +-------+ + + + + | Specimen | Performing Laboratory | + + + | Blood | [facility], [address] [facility] | | | [place] [address] | + + + + + | Narrative | + + | Reference range change effective 12/11/16. | + + COMPLETE METABOLIC SET (NA,K,CL,CO2,BUN,CREAT,GLUC,CA,AST,ALT,BILI TOTAL,ALK PHOS,ALB,PROT TOTAL) (03/21/2017 12:34 AM) + + + + | Component | Value | Ref Range | + + + + | GLUCOSE, PLASMA | 94 | 70 - 99 mg/dL | | (LAB) | | | + + + + | BUN, PLASMA (LAB) | 12 | 6 - 20 mg/dL | + + + + | CREATININE PLASMA | 0.51 (L) | 0.60 - 1.10 mg/dL | | (LAB) | | | + + + + | EGFR - | >60 | >60 mL/min | | UKRAINIAN | | | + + + + | EGFR NON | >60 | >60 mL/min | | -UKRAINIAN | | | + + + + | SODIUM, PLASMA (LAB) | 140 | 136 - 145 mmol/L | + + + + | POTASSIUM, PLASMA | 3.5 | 3.4 - 5.0 mmol/L | | (LAB) | | | + + + + | CHLORIDE, PLASMA | 101 | 97 - 108 mmol/L | | (LAB) | | | + + + + | TOTAL CO2, PLASMA | 31 | 21 - 32 mmol/L | | (LAB) | | | + + + + | CALCIUM, PLASMA | 8.8 | 8.6 - 10.2 mg/dL | | (LAB) | | | + + + + | CALCIUM(ALB | 9.4 | 8.6 - 10.2 mg/dL | | CORRECTED) | | | + + + + | BILIRUBIN TOTAL | 0.5 | 0.3 - 1.2 mg/dL | + + + + | TOTAL PROTEIN, | 6.4 | 6.4 - 8.2 g/dL | | PLASMA (LAB) | | | + + + + | ALBUMIN, PLASMA | 3.2 (L) | 3.5 - 4.7 g/dL | | (LAB) | | | + + + + | ALK PHOS | 161 (H) | 42 - 98 U/L | + + + + | AST(SGOT) | 14 | <=41 U/L | + + + + | ALT (SGPT) | 33 | <=60 U/L | + + + + | ANION GAP | 8 | mmol/L | + + + + | ANION GAP(ALB | 10 | 4 - 11 mmol/L | | CORRECTED) | | | + + + + | POTASSIUM CMNT | No Hemo | | + + + + | BILI T CMNT | No Hemo | | + + + + | AST CMNT | No Hemo | | + + + + + + + | Specimen | Performing Laboratory | + + + | Blood | [facility], [address] | | | [place] [address] | + + + + + | Narrative | + + | Adult glucose reference range change effective 7-12-17. GFR is estimated using the | | MDRD equation recommended by the National Kidney Disease Education Program. | | Estimated GFR Interpretive Information: <60 mL/min/1.73 sq | | m Chronic Kidney Disease <15 mL/min/1.73 sq | | m Kidney Failure Estimated GFR greater that 60 mL/min/1.73 | | sq m is of limited clinical value. The MDRD equation is not valid in the following | | situations: - Patients under 18 years of age - Severe malnutrition or obesity - | | Vegetarian diet - Rapidly changing kidney function | + + COAGULOPATHY PANEL (INR,APTT,FIBRINOGEN) (03/21/2017 12:34 AM) + +---------+ + | Component | Value | Ref Range | + +---------+ + | INR | 1.07 | 0.90 - 1.20 INR | + +---------+ + | APTT | 33.0 | 26.0 - 36.0 seconds | + +---------+ + | FIBRINOGEN LEVEL | 505 (H) | 200 - 450 mg/dL | + +---------+ + + + + | Specimen | Performing Laboratory | + + + | Blood | [facility], [address] [facility] | | | [place] [address] | + + + + + | Narrative | + + | INR Therapeutic ranges for full anticoagulation: INR for Venous | | Thromboembolism (2.0 - 3.0) INR INR for most patients with | | mech. valves (2.5 - 3.5) INR APTT Therapeutic | | Range: (75 - 120) sec Heparin levels | | of 0.35 - 0.7 U/mL | + + CBC, WITH DIFFERENTIAL (03/21/2017 12:34 AM) + + + | Specimen | Performing Laboratory | + + + | Blood | | + + + + + | Narrative | + + | The following orders were created for panel order CBC, WITH DIFFERENTIAL. | | Procedure | | Abnormality Status | | --------- | | ------ CBC AND AUTO | | DIFF[[id number]] Abnormal Final | | result Please view results for these tests on the | | individual orders. | + + CBC AND AUTO DIFF (03/20/2017 12:43 AM) + + + + | Component | Value | Ref Range | + + + + | WHITE CELL COUNT | <0.10 (L) | 3.50 - 10.80 K/cu mm | + + + + | RED CELL COUNT | 2.39 (L) | 4.00 - 5.20 M/cu mm | + + + + | HEMOGLOBIN | 7.4 (L) | 12.0 - 16.0 g/dL | + + + + | HEMATOCRIT | 21.6 (L) | 36.0 - 46.0 % | + + + + | MCV | 90.4 | 80.0 - 96.0 fL | + + + + | MCHC | 34.3 | 33.0 - 35.5 g/dL | + + + + | RDW SD | 40.5 | 35.1 - 46.3 fL | + + + + | PLATELET COUNT | 22 (L) | 150 - 400 K/cu mm | + + + + | MPV | 9.1 (L) | 9.7 - 12.3 fL | + + + + | NRBC% | 0.0 | 0.0 - 0.3 % | + + + + | NRBC# | 0.00 | 0.00 - 0.02 K/cu mm | + + + + | NEUTROPHIL % | Comment: WBC <300; differential not | 50.0 - 70.0 % | | | performed. | | + + + + | LYMPHOCYTE % | Comment: WBC <300; differential not | 18.0 - 42.0 % | | | performed. | | + + + + | MONOCYTE % | Comment: WBC <300; differential not | 3.5 - 9.0 % | | | performed. | | + + + + | EOS % | Comment: WBC <300; differential not | 1.0 - 3.0 % | | | performed. | | + + + + | BASO % | Comment: WBC <300; differential not | 0.0 - 2.0 % | | | performed. | | + + + + | IMMATURE | Comment: WBC <300; differential not | 0.0 - 0.6 % | | GRANULOCYTE% | performed. | | + + + + | NEUTROPHIL # | Comment: WBC <300; differential not | 1.80 - 7.70 K/cu mm | | | performed. | | + + + + | LYMPHOCYTE # | Comment: WBC <300; differential not | 1.00 - 4.80 K/cu mm | | | performed. | | + + + + | MONOCYTE # | Comment: WBC <300; differential not | 0.10 - 0.90 K/cu mm | | | performed. | | + + + + | EOS # | Comment: WBC <300; differential not | 0.00 - 0.50 K/cu mm | | | performed. | | + + + + | BASO # | Comment: WBC <300; differential not | 0.00 - 0.10 K/cu mm | | | performed. | | + + + + | IMMATURE | Comment: WBC <300; differential not | 0.00 - 0.03 K/cu mm | | GRANULOCYTE# | performed. | | + + + + + + + | Specimen | Performing Laboratory | + + + | Blood | [facility], [address] [facility] | | | [place] [address] | + + + PHOSPHORUS, PLASMA (03/20/2017 12:43 AM) + +-------+ + | Component | Value | Ref Range | + +-------+ + | PHOSPHORUS, PLASMA | 4.4 | 2.4 - 4.7 mg/dL | | (LAB) | | | + +-------+ + + + + | Specimen | Performing Laboratory | + + + | Blood | [facility], [address] [place] [address] | | | [place] [address] | + + + MAGNESIUM, PLASMA (03/20/2017 12:43 AM) + +-------+ + | Component | Value | Ref Range | + +-------+ + | MAGNESIUM,PLASMA | 2.1 | 1.6 - 2.6 mg/dL | + +-------+ + + + + | Specimen | Performing Laboratory | + + + | Blood | [facility], [address] [place] [address] | | | [place] [address] | + + + + + | Narrative | + + | Reference range change effective 15/17. | + + COMPLETE METABOLIC SET (NA,K,CL,CO2,BUN,CREAT,GLUC,CA,AST,ALT,BILI TOTAL,ALK PHOS,ALB,PROT TOTAL) (03/20/2017 12:43 AM) + + + + | Component | Value | Ref Range | + + + + | GLUCOSE, PLASMA | 102 (H) | 70 - 99 mg/dL | | (LAB) | | | + + + + | BUN, PLASMA (LAB) | 10 | 6 - 20 mg/dL | + + + + | CREATININE PLASMA | 0.41 (L) | 0.60 - 1.10 mg/dL | | (LAB) | | | + + + + | EGFR - | >60 | >60 mL/min | | UKRAINIAN | | | + + + + | EGFR NON | >60 | >60 mL/min | | -UKRAINIAN | | | + + + + | SODIUM, PLASMA (LAB) | 142 | 136 - 145 mmol/L | + + + + | POTASSIUM, PLASMA | 3.8 | 3.4 - 5.0 mmol/L | | (LAB) | | | + + + + | CHLORIDE, PLASMA | 105 | 97 - 108 mmol/L | | (LAB) | | | + + + + | TOTAL CO2, PLASMA | 31 | 21 - 32 mmol/L | | (LAB) | | | + + + + | CALCIUM, PLASMA | 8.6 | 8.6 - 10.2 mg/dL | | (LAB) | | | + + + + | CALCIUM(ALB | 9.5 | 8.6 - 10.2 mg/dL | | CORRECTED) | | | + + + + | BILIRUBIN TOTAL | 0.5 | 0.3 - 1.2 mg/dL | + + + + | TOTAL PROTEIN, | 6.2 (L) | 6.4 - 8.2 g/dL | | PLASMA (LAB) | | | + + + + | ALBUMIN, PLASMA | 2.9 (L) | 3.5 - 4.7 g/dL | | (LAB) | | | + + + + | ALK PHOS | 152 (H) | 42 - 98 U/L | + + + + | AST(SGOT) | 16 | <=41 U/L | + + + + | ALT (SGPT) | 34 | <=60 U/L | + + + + | ANION GAP | 6 | mmol/L | + + + + | ANION GAP(ALB | 8 | 4 - 11 mmol/L | | CORRECTED) | | | + + + + | POTASSIUM CMNT | No Hemo | | + + + + | BILI T CMNT | No Hemo | | + + + + | AST CMNT | No Hemo | | + + + + + + + | Specimen | Performing Laboratory | + + + | Blood | [facility], [address] | | | [place] [address] | + + + + + | Narrative | + + | Adult glucose reference range change effective 7-12-17. GFR is estimated using the | | MDRD equation recommended by the National Kidney Disease Education Program. | | Estimated GFR Interpretive Information: <60 mL/min/1.73 sq | | m Chronic Kidney Disease <15 mL/min/1.73 sq | | m Kidney Failure Estimated GFR greater that 60 mL/min/1.73 | | sq m is of limited clinical value. The MDRD equation is not valid in the following | | situations: - Patients under 18 years of age - Severe malnutrition or obesity - | | Vegetarian diet - Rapidly changing kidney function | + + COAGULOPATHY PANEL (INR,APTT,FIBRINOGEN) (03/20/2017 12:43 AM) + +-------+ + | Component | Value | Ref Range | + +-------+ + | INR | 1.05 | 0.90 - 1.20 INR | + +-------+ + | APTT | 30.6 | 26.0 - 36.0 seconds | + +-------+ + | FIBRINOGEN LEVEL | 444 | 200 - 450 mg/dL | + +-------+ + + + + | Specimen | Performing Laboratory | + + + | Blood | [facility], [facility] [address] [place] [address] | | | [place] [address] | + + + + + | Narrative | + + | INR Therapeutic ranges for full anticoagulation: INR for Venous | | Thromboembolism (2.0 - 3.0) INR INR for most patients with | | mech. valves (2.5 - 3.5) INR APTT Therapeutic | | Range: (75 - 120) sec Heparin levels | | of 0.35 - 0.7 U/mL | + + CBC, WITH DIFFERENTIAL (03/20/2017 12:43 AM) + + + | Specimen | Performing Laboratory | + + + | Blood | | + + + + + | Narrative | + + | The following orders were created for panel order CBC, WITH DIFFERENTIAL. | | Procedure | | Abnormality Status | | --------- | | ------ CBC AND AUTO | | DIFF[[id number]] Abnormal Final | | result Please view results for these tests on the | | individual orders. | + + VANCOMYCIN, TROUGH (03/19/2017 3:44 AM) + +-------+ + | Component | Value | Ref Range | + +-------+ + | VANCOMYCIN, TROUGH | 13.0 | 10.0 - 20.0 ug/mL | + +-------+ + + + + | Specimen | Performing Laboratory | + + + | Blood | [facility], [address] [facility] | | | [place] [address] | + + + + + | Narrative | + + | Please draw a vancomycin trough prior to the 0500 dose on 03/18/17. Thank you | | Reference range change effective 01/21/2017. | + + PRODUCT - PLATELET PHERESIS LEUKOREDUCED (03/19/2017 1:34 AM) + + + + | Component | Value | Ref Range | + + + + | PRODUCT DESCRIPTION | PLATELETS PHERESIS, LEUKOCYTE REDUCED, | | | | IRRADIATED | | + + + + | PRODUCT UNIT # | [id number] | | + + + + | UNIT ABO | O | | + + + + | UNIT RH | POS | | + + + + | STATUS OF UNIT | Presumed Transfused | | + + + + | EXPIRATION DATE | [id number] | | + + + + | BLOOD TYPE BARCODE | 5100 | | + + + + | BLOOD PRODUCT CODE | [id number] | | + + + + + + + | Specimen | Performing Laboratory | + + + | | [facility], [facility] [address] [place] [address] | | | [place] [address] | + + + CBC AND AUTO DIFF (03/19/2017 12:33 AM) + + + + | Component | Value | Ref Range | + + + + | WHITE CELL COUNT | <0.10 (L) | 3.50 - 10.80 K/cu mm | + + + + | RED CELL COUNT | 2.45 (L) | 4.00 - 5.20 M/cu mm | + + + + | HEMOGLOBIN | 7.7 (L) | 12.0 - 16.0 g/dL | + + + + | HEMATOCRIT | 21.9 (L) | 36.0 - 46.0 % | + + + + | MCV | 89.4 | 80.0 - 96.0 fL | + + + + | MCHC | 35.2 | 33.0 - 35.5 g/dL | + + + + | RDW SD | 41.0 | 35.1 - 46.3 fL | + + + + | PLATELET COUNT | 8 (LL) | 150 - 400 K/cu mm | + + + + | MPV | 8.5 (L) | 9.7 - 12.3 fL | + + + + | NRBC% | 0.0 | 0.0 - 0.3 % | + + + + | NRBC# | 0.00 | 0.00 - 0.02 K/cu mm | + + + + | NEUTROPHIL % | Comment: WBC <300; differential not | 50.0 - 70.0 % | | | performed. | | + + + + | LYMPHOCYTE % | Comment: WBC <300; differential not | 18.0 - 42.0 % | | | performed. | | + + + + | MONOCYTE % | Comment: WBC <300; differential not | 3.5 - 9.0 % | | | performed. | | + + + + | EOS % | Comment: WBC <300; differential not | 1.0 - 3.0 % | | | performed. | | + + + + | BASO % | Comment: WBC <300; differential not | 0.0 - 2.0 % | | | performed. | | + + + + | IMMATURE | Comment: WBC <300; differential not | 0.0 - 0.6 % | | GRANULOCYTE% | performed. | | + + + + | NEUTROPHIL # | Comment: WBC <300; differential not | 1.80 - 7.70 K/cu mm | | | performed. | | + + + + | LYMPHOCYTE # | Comment: WBC <300; differential not | 1.00 - 4.80 K/cu mm | | | performed. | | + + + + | MONOCYTE # | Comment: WBC <300; differential not | 0.10 - 0.90 K/cu mm | | | performed. | | + + + + | EOS # | Comment: WBC <300; differential not | 0.00 - 0.50 K/cu mm | | | performed. | | + + + + | BASO # | Comment: WBC <300; differential not | 0.00 - 0.10 K/cu mm | | | performed. | | + + + + | IMMATURE | Comment: WBC <300; differential not | 0.00 - 0.03 K/cu mm | | GRANULOCYTE# | performed. | | + + + + + + + | Specimen | Performing Laboratory | + + + | Blood | [facility], [address] [facility] | | | [place] [address] | + + + PHOSPHORUS, PLASMA (03/19/2017 12:33 AM) + +-------+ + | Component | Value | Ref Range | + +-------+ + | PHOSPHORUS, PLASMA | 4.1 | 2.4 - 4.7 mg/dL | | (LAB) | | | + +-------+ + + + + | Specimen | Performing Laboratory | + + + | Blood | [facility], [address] [place] [address] | | | [place] [address] | + + + MAGNESIUM, PLASMA (03/19/2017 12:33 AM) + +-------+ + | Component | Value | Ref Range | + +-------+ + | MAGNESIUM,PLASMA | 2.0 | 1.6 - 2.6 mg/dL | + +-------+ + + + + | Specimen | Performing Laboratory | + + + | Blood | [facility], [address] [facility] | | | [place] [address] | + + + + + | Narrative | + + | Reference range change effective 12/11/16. | + + COMPLETE METABOLIC SET (NA,K,CL,CO2,BUN,CREAT,GLUC,CA,AST,ALT,BILI TOTAL,ALK PHOS,ALB,PROT TOTAL) (03/19/2017 12:33 AM) + + + + | Component | Value | Ref Range | + + + + | GLUCOSE, PLASMA | 106 (H) | 70 - 99 mg/dL | | (LAB) | | | + + + + | BUN, PLASMA (LAB) | 11 | 6 - 20 mg/dL | + + + + | CREATININE PLASMA | 0.49 (L) | 0.60 - 1.10 mg/dL | | (LAB) | | | + + + + | EGFR - | >60 | >60 mL/min | | UKRAINIAN | | | + + + + | EGFR NON | >60 | >60 mL/min | | -UKRAINIAN | | | + + + + | SODIUM, PLASMA (LAB) | 141 | 136 - 145 mmol/L | + + + + | POTASSIUM, PLASMA | 3.8 | 3.4 - 5.0 mmol/L | | (LAB) | | | + + + + | CHLORIDE, PLASMA | 104 | 97 - 108 mmol/L | | (LAB) | | | + + + + | TOTAL CO2, PLASMA | 30 | 21 - 32 mmol/L | | (LAB) | | | + + + + | CALCIUM, PLASMA | 8.5 (L) | 8.6 - 10.2 mg/dL | | (LAB) | | | + + + + | CALCIUM(ALB | 9.5 | 8.6 - 10.2 mg/dL | | CORRECTED) | | | + + + + | BILIRUBIN TOTAL | 0.5 | 0.3 - 1.2 mg/dL | + + + + | TOTAL PROTEIN, | 5.9 (L) | 6.4 - 8.2 g/dL | | PLASMA (LAB) | | | + + + + | ALBUMIN, PLASMA | 2.8 (L) | 3.5 - 4.7 g/dL | | (LAB) | | | + + + + | ALK PHOS | 156 (H) | 42 - 98 U/L | + + + + | AST(SGOT) | 16 | <=41 U/L | + + + + | ALT (SGPT) | 33 | <=60 U/L | + + + + | ANION GAP | 7 | mmol/L | + + + + | ANION GAP(ALB | 10 | 4 - 11 mmol/L | | CORRECTED) | | | + + + + | POTASSIUM CMNT | No Hemo | | + + + + | BILI T CMNT | No Hemo | | + + + + | AST CMNT | No Hemo | | + + + + + + + | Specimen | Performing Laboratory | + + + | Blood | [facility], [address] | | | [place] [id number] | + + + + + | Narrative | + + | Adult glucose reference range change effective 7-12-17. GFR is estimated using the | | MDRD equation recommended by the National Kidney Disease Education Program. | | Estimated GFR Interpretive Information: <60 mL/min/1.73 sq | | m Chronic Kidney Disease <15 mL/min/1.73 sq | | m Kidney Failure Estimated GFR greater that 60 mL/min/1.73 | | sq m is of limited clinical value. The MDRD equation is not valid in the following | | situations: - Patients under 18 years of age - Severe malnutrition or obesity - | | Vegetarian diet - Rapidly changing kidney function | + + COAGULOPATHY PANEL (INR,APTT,FIBRINOGEN) (03/19/2017 12:33 AM) + +-------+ + | Component | Value | Ref Range | + +-------+ + | INR | 1.06 | 0.90 - 1.20 INR | + +-------+ + | APTT | 31.7 | 26.0 - 36.0 seconds | + +-------+ + | FIBRINOGEN LEVEL | 450 | 200 - 450 mg/dL | + +-------+ + + + + | Specimen | Performing Laboratory | + + + | Blood | [facility], [address] [facility] [address] | | | [place] [id number] | + + + + + | Narrative | + + | INR Therapeutic ranges for full anticoagulation: INR for Venous | | Thromboembolism (2.0 - 3.0) INR INR for most patients with | | mech. valves (2.5 - 3.5) INR APTT Therapeutic | | Range: (75 - 120) sec Heparin levels | | of 0.35 - 0.7 U/mL | + + CBC, WITH DIFFERENTIAL (03/19/2017 12:33 AM) + + + | Specimen | Performing Laboratory | + + + | Blood | | + + + + + | Narrative | + + | The following orders were created for panel order CBC, WITH DIFFERENTIAL. | | Procedure | | Abnormality Status | | --------- | | ------ CBC AND AUTO | | DIFF[[id number]] Abnormal Final | | result Please view results for these tests on the | | individual orders. | + + VRE (FRANCISCO) BY PCR (03/18/2017 12:42 PM) + + + + | Component | Value | Ref Range | + + + + | VRE BY PCR | Negative for van A gene | Negative for van A | | | | gene | + + + + + + + | Specimen | Performing Laboratory | + + + | Swab - Rectum | [facility], [address] | | | [place] [id number] | + + + CBC AND AUTO DIFF (03/17/2017 11:39 PM) + + + + | Component | Value | Ref Range | + + + + | WHITE CELL COUNT | <0.10 (L) | 3.50 - 10.80 K/cu mm | + + + + | RED CELL COUNT | 2.40 (L) | 4.00 - 5.20 M/cu mm | + + + + | HEMOGLOBIN | 7.5 (L) | 12.0 - 16.0 g/dL | + + + + | HEMATOCRIT | 21.4 (L) | 36.0 - 46.0 % | + + + + | MCV | 89.2 | 80.0 - 96.0 fL | + + + + | MCHC | 35.0 | 33.0 - 35.5 g/dL | + + + + | RDW SD | 41.6 | 35.1 - 46.3 fL | + + + + | PLATELET COUNT | 16 (L) | 150 - 400 K/cu mm | + + + + | MPV | 9.3 (L) | 9.7 - 12.3 fL | + + + + | NRBC% | 0.0 | 0.0 - 0.3 % | + + + + | NRBC# | 0.00 | 0.00 - 0.02 K/cu mm | + + + + | NEUTROPHIL % | Comment: WBC <300; differential not | 50.0 - 70.0 % | | | performed. | | + + + + | LYMPHOCYTE % | Comment: WBC <300; differential not | 18.0 - 42.0 % | | | performed. | | + + + + | MONOCYTE % | Comment: WBC <300; differential not | 3.5 - 9.0 % | | | performed. | | + + + + | EOS % | Comment: WBC <300; differential not | 1.0 - 3.0 % | | | performed. | | + + + + | BASO % | Comment: WBC <300; differential not | 0.0 - 2.0 % | | | performed. | | + + + + | IMMATURE | Comment: WBC <300; differential not | 0.0 - 0.6 % | | GRANULOCYTE% | performed. | | + + + + | NEUTROPHIL # | Comment: WBC <300; differential not | 1.80 - 7.70 K/cu mm | | | performed. | | + + + + | LYMPHOCYTE # | Comment: WBC <300; differential not | 1.00 - 4.80 K/cu mm | | | performed. | | + + + + | MONOCYTE # | Comment: WBC <300; differential not | 0.10 - 0.90 K/cu mm | | | performed. | | + + + + | EOS # | Comment: WBC <300; differential not | 0.00 - 0.50 K/cu mm | | | performed. | | + + + + | BASO # | Comment: WBC <300; differential not | 0.00 - 0.10 K/cu mm | | | performed. | | + + + + | IMMATURE | Comment: WBC <300; differential not | 0.00 - 0.03 K/cu mm | | GRANULOCYTE# | performed. | | + + + + + + + | Specimen | Performing Laboratory | + + + | Blood | [facility], [address] [facility] | | | [place] [address] | + + + PHOSPHORUS, PLASMA (03/17/2017 11:39 PM) + +-------+ + | Component | Value | Ref Range | + +-------+ + | PHOSPHORUS, PLASMA | 3.4 | 2.4 - 4.7 mg/dL | | (LAB) | | | + +-------+ + + + + | Specimen | Performing Laboratory | + + + | Blood | [facility], [address] [address] | | | [place] [address] | + + + LDH TOTAL, PLASMA (03/17/2017 11:39 PM) + +---------+ + | Component | Value | Ref Range | + +---------+ + | LD TOTAL, PLASMA | 328 (H) | <=250 U/L | + +---------+ + | LD CMNT | No Hemo | | + +---------+ + + + + | Specimen | Performing Laboratory | + + + | Blood | [facility], [address] | | | [place] [address] | + + + MAGNESIUM, PLASMA (03/17/2017 11:39 PM) + +-------+ + | Component | Value | Ref Range | + +-------+ + | MAGNESIUM,PLASMA | 1.8 | 1.6 - 2.6 mg/dL | + +-------+ + + + + | Specimen | Performing Laboratory | + + + | Blood | [facility], [address] | | | [place] [address] | + + + + + | Narrative | + + | Reference range change effective 12/11/16. | + + COMPLETE METABOLIC SET (NA,K,CL,CO2,BUN,CREAT,GLUC,CA,AST,ALT,BILI TOTAL,ALK PHOS,ALB,PROT TOTAL) (03/17/2017 11:39 PM) + + + + | Component | Value | Ref Range | + + + + | GLUCOSE, PLASMA | 97 | 70 - 99 mg/dL | | (LAB) | | | + + + + | BUN, PLASMA (LAB) | 10 | 6 - 20 mg/dL | + + + + | CREATININE PLASMA | 0.46 (L) | 0.60 - 1.10 mg/dL | | (LAB) | | | + + + + | EGFR - | >60 | >60 mL/min | | UKRAINIAN | | | + + + + | EGFR NON | >60 | >60 mL/min | | -UKRAINIAN | | | + + + + | SODIUM, PLASMA (LAB) | 141 | 136 - 145 mmol/L | + + + + | POTASSIUM, PLASMA | 3.5 | 3.4 - 5.0 mmol/L | | (LAB) | | | + + + + | CHLORIDE, PLASMA | 104 | 97 - 108 mmol/L | | (LAB) | | | + + + + | TOTAL CO2, PLASMA | 30 | 21 - 32 mmol/L | | (LAB) | | | + + + + | CALCIUM, PLASMA | 8.4 (L) | 8.6 - 10.2 mg/dL | | (LAB) | | | + + + + | CALCIUM(ALB | 9.4 | 8.6 - 10.2 mg/dL | | CORRECTED) | | | + + + + | BILIRUBIN TOTAL | 0.6 | 0.3 - 1.2 mg/dL | + + + + | TOTAL PROTEIN, | 5.7 (L) | 6.4 - 8.2 g/dL | | PLASMA (LAB) | | | + + + + | ALBUMIN, PLASMA | 2.8 (L) | 3.5 - 4.7 g/dL | | (LAB) | | | + + + + | ALK PHOS | 150 (H) | 42 - 98 U/L | + + + + | AST(SGOT) | 17 | <=41 U/L | + + + + | ALT (SGPT) | 33 | <=60 U/L | + + + + | ANION GAP | 7 | mmol/L | + + + + | ANION GAP(ALB | 10 | 4 - 11 mmol/L | | CORRECTED) | | | + + + + | POTASSIUM CMNT | No Hemo | | + + + + | BILI T CMNT | No Hemo | | + + + + | AST CMNT | No Hemo | | + + + + + + + | Specimen | Performing Laboratory | + + + | Blood | [facility] [address] [facility] [address] | | | [place] [address] | + + + + + | Narrative | + + | Adult glucose reference range change effective 712-17. GFR is estimated using the | | MDRD equation recommended by the National Kidney Disease Education Program. | | Estimated GFR Interpretive Information: <60 mL/min/1.73 sq | | m Chronic Kidney Disease <15 mL/min/1.73 sq | | m Kidney Failure Estimated GFR greater that 60 mL/min/1.73 | | sq m is of limited clinical value. The MDRD equation is not valid in the following | | situations: - Patients under 18 years of age - Severe malnutrition or obesity - | | Vegetarian diet - Rapidly changing kidney function | + + COAGULOPATHY PANEL (INR,APTT,FIBRINOGEN) (03/17/2017 11:39 PM) + +-------+ + | Component | Value | Ref Range | + +-------+ + | INR | 1.03 | 0.90 - 1.20 INR | + +-------+ + | APTT | 31.2 | 26.0 - 36.0 seconds | + +-------+ + | FIBRINOGEN LEVEL | 407 | 200 - 450 mg/dL | + +-------+ + + + + | Specimen | Performing Laboratory | + + + | Blood | [facility], [facility] [address] [facility] [address] | | | [facility] [address] | + + + + + | Narrative | + + | INR Therapeutic ranges for full anticoagulation: INR for Venous | | Thromboembolism (2.0 - 3.0) INR INR for most patients with | | mech. valves (2.5 - 3.5) INR APTT Therapeutic | | Range: (75 - 120) sec Heparin levels | | of 0.35 - 0.7 U/mL | + + CBC, WITH DIFFERENTIAL (03/17/2017 11:39 PM) + + + | Specimen | Performing Laboratory | + + + | Blood | | + + + + + | Narrative | + + | The following orders were created for panel order CBC, WITH DIFFERENTIAL. | | Procedure | | Abnormality Status | | --------- | | ------ CBC AND AUTO | | DIFF[[id number]] Abnormal Final | | result Please view results for these tests on the | | individual orders. | + + PRODUCT - PLATELET PHERESIS LEUKOREDUCED (03/17/2017 12:43 AM) + + + + | Component | Value | Ref Range | + + + + | PRODUCT DESCRIPTION | PLATELETS PHERESIS, LEUKOCYTE REDUCED, | | | | IRRADIATED | | + + + + | PRODUCT UNIT # | [id number] | | + + + + | UNIT ABO | O | | + + + + | UNIT RH | POS | | + + + + | STATUS OF UNIT | Presumed Transfused | | + + + + | EXPIRATION DATE | [id number] | | + + + + | BLOOD TYPE BARCODE | 5100 | | + + + + | BLOOD PRODUCT CODE | [id number] | | + + + + + + + | Specimen | Performing Laboratory | + + + | | [facility] [address] [facility] | | | [place] [address] | + + + PRODUCT - RED CELLS LEUKOREDUCED (03/17/2017 12:43 AM) + + + + | Component | Value | Ref Range | + + + + | PRODUCT DESCRIPTION | -1 RED BLOOD CELLS ADENINE-SALINE ADDED | | | | LEUKOCYT | | + + + + | PRODUCT UNIT # | [id number] | | + + + + | UNIT ABO | O | | + + + + | UNIT RH | POS | | + + + + | STATUS OF UNIT | Presumed Transfused | | + + + + | EXPIRATION DATE | [id number] | | + + + + | BLOOD TYPE BARCODE | 5100 | | + + + + | BLOOD PRODUCT CODE | [id number] | | + + + + + + + | Specimen | Performing Laboratory | + + + | | [facility], [facility] [address] | | | [address] [place] [address] | + + + CBC AND AUTO DIFF (03/16/2017 11:04 PM) + + + + | Component | Value | Ref Range | + + + + | WHITE CELL COUNT | <0.10 (L) | 3.50 - 10.80 K/cu mm | + + + + | RED CELL COUNT | 2.37 (L) | 4.00 - 5.20 M/cu mm | + + + + | HEMOGLOBIN | 7.5 (L) | 12.0 - 16.0 g/dL | + + + + | HEMATOCRIT | 20.9 (L) | 36.0 - 46.0 % | + + + + | MCV | 88.2 | 80.0 - 96.0 fL | + + + + | MCHC | 35.9 | 33.0 - 35.5 g/dL | + + + + | RDW SD | 40.3 | 35.1 - 46.3 fL | + + + + | PLATELET COUNT | 8 (LL) | 150 - 400 K/cu mm | + + + + | MPV | 8.2 (L) | 9.7 - 12.3 fL | + + + + | NRBC% | 0.0 | 0.0 - 0.3 % | + + + + | NRBC# | 0.00 | 0.00 - 0.02 K/cu mm | + + + + | NEUTROPHIL % | Comment: WBC <300; differential not | 50.0 - 70.0 % | | | performed. | | + + + + | LYMPHOCYTE % | Comment: WBC <300; differential not | 18.0 - 42.0 % | | | performed. | | + + + + | MONOCYTE % | Comment: WBC <300; differential not | 3.5 - 9.0 % | | | performed. | | + + + + | EOS % | Comment: WBC <300; differential not | 1.0 - 3.0 % | | | performed. | | + + + + | BASO % | Comment: WBC <300; differential not | 0.0 - 2.0 % | | | performed. | | + + + + | IMMATURE | Comment: WBC <300; differential not | 0.0 - 0.6 % | | GRANULOCYTE% | performed. | | + + + + | NEUTROPHIL # | Comment: WBC <300; differential not | 1.80 - 7.70 K/cu mm | | | performed. | | + + + + | LYMPHOCYTE # | Comment: WBC <300; differential not | 1.00 - 4.80 K/cu mm | | | performed. | | + + + + | MONOCYTE # | Comment: WBC <300; differential not | 0.10 - 0.90 K/cu mm | | | performed. | | + + + + | EOS # | Comment: WBC <300; differential not | 0.00 - 0.50 K/cu mm | | | performed. | | + + + + | BASO # | Comment: WBC <300; differential not | 0.00 - 0.10 K/cu mm | | | performed. | | + + + + | IMMATURE | Comment: WBC <300; differential not | 0.00 - 0.03 K/cu mm | | GRANULOCYTE# | performed. | | + + + + + + + | Specimen | Performing Laboratory | + + + | Blood | [facility], [address] [address] [facility] | | | [place] [address] | + + + PHOSPHORUS, PLASMA (03/16/2017 11:04 PM) + +-------+ + | Component | Value | Ref Range | + +-------+ + | PHOSPHORUS, PLASMA | 2.8 | 2.4 - 4.7 mg/dL | | (LAB) | | | + +-------+ + + + + | Specimen | Performing Laboratory | + + + | Blood | [facility], [address] [place] [address] | | | [place] [address] | + + + MAGNESIUM, PLASMA (03/16/2017 11:04 PM) + +-------+ + | Component | Value | Ref Range | + +-------+ + | MAGNESIUM,PLASMA | 1.8 | 1.6 - 2.6 mg/dL | + +-------+ + + + + | Specimen | Performing Laboratory | + + + | Blood | [facility], [address] [address] [place] [address] | | | [place] [address] | + + + + + | Narrative | + + | Reference range change effective 15/17. | + + COMPLETE METABOLIC SET (NA,K,CL,CO2,BUN,CREAT,GLUC,CA,AST,ALT,BILI TOTAL,ALK PHOS,ALB,PROT TOTAL) (03/16/2017 11:04 PM) + + + + | Component | Value | Ref Range | + + + + | GLUCOSE, PLASMA | 107 (H) | 70 - 99 mg/dL | | (LAB) | | | + + + + | BUN, PLASMA (LAB) | 8 | 6 - 20 mg/dL | + + + + | CREATININE PLASMA | 0.45 (L) | 0.60 - 1.10 mg/dL | | (LAB) | | | + + + + | EGFR - | >60 | >60 mL/min | | UKRAINIAN | | | + + + + | EGFR NON | >60 | >60 mL/min | | -UKRAINIAN | | | + + + + | SODIUM, PLASMA (LAB) | 141 | 136 - 145 mmol/L | + + + + | POTASSIUM, PLASMA | 3.3 (L) | 3.4 - 5.0 mmol/L | | (LAB) | | | + + + + | CHLORIDE, PLASMA | 105 | 97 - 108 mmol/L | | (LAB) | | | + + + + | TOTAL CO2, PLASMA | 30 | 21 - 32 mmol/L | | (LAB) | | | + + + + | CALCIUM, PLASMA | 8.2 (L) | 8.6 - 10.2 mg/dL | | (LAB) | | | + + + + | CALCIUM(ALB | 9.2 | 8.6 - 10.2 mg/dL | | CORRECTED) | | | + + + + | BILIRUBIN TOTAL | 0.6 | 0.3 - 1.2 mg/dL | + + + + | TOTAL PROTEIN, | 5.8 (L) | 6.4 - 8.2 g/dL | | PLASMA (LAB) | | | + + + + | ALBUMIN, PLASMA | 2.8 (L) | 3.5 - 4.7 g/dL | | (LAB) | | | + + + + | ALK PHOS | 158 (H) | 42 - 98 U/L | + + + + | AST(SGOT) | 18 | <=41 U/L | + + + + | ALT (SGPT) | 33 | <=60 U/L | + + + + | ANION GAP | 6 | mmol/L | + + + + | ANION GAP(ALB | 9 | 4 - 11 mmol/L | | CORRECTED) | | | + + + + | POTASSIUM CMNT | No Hemo | | + + + + | BILI T CMNT | No Hemo | | + + + + | AST CMNT | No Hemo | | + + + + + + + | Specimen | Performing Laboratory | + + + | Blood | [facility], [facility] [address] [facility] | | | [place] [address] | + + + + + | Narrative | + + | Adult glucose reference range change effective 7-17. GFR is estimated using the | | MDRD equation recommended by the National Kidney Disease Education Program. | | Estimated GFR Interpretive Information: <60 mL/min/1.73 sq | | m Chronic Kidney Disease <15 mL/min/1.73 sq | | m Kidney Failure Estimated GFR greater that 60 mL/min/1.73 | | sq m is of limited clinical value. The MDRD equation is not valid in the following | | situations: - Patients under 18 years of age - Severe malnutrition or obesity - | | Vegetarian diet - Rapidly changing kidney function | + + COAGULOPATHY PANEL (INR,APTT,FIBRINOGEN) (03/16/2017 11:04 PM) + +-------+ + | Component | Value | Ref Range | + +-------+ + | INR | 1.06 | 0.90 - 1.20 INR | + +-------+ + | APTT | 30.8 | 26.0 - 36.0 seconds | + +-------+ + | FIBRINOGEN LEVEL | 437 | 200 - 450 mg/dL | + +-------+ + + + + | Specimen | Performing Laboratory | + + + | Blood | [facility], [address] | | | [place] [address] | + + + + + | Narrative | + + | INR Therapeutic ranges for full anticoagulation: INR for Venous | | Thromboembolism (2.0 - 3.0) INR INR for most patients with | | mech. valves (2.5 - 3.5) INR APTT Therapeutic | | Range: (75 - 120) sec Heparin levels | | of 0.35 - 0.7 U/mL | + + CBC, WITH DIFFERENTIAL (03/16/2017 11:04 PM) + + + | Specimen | Performing Laboratory | + + + | Blood | | + + + + + | Narrative | + + | The following orders were created for panel order CBC, WITH DIFFERENTIAL. | | Procedure | | Abnormality Status | | --------- | | ------ CBC AND AUTO | | DIFF[[id number]] Abnormal Final | | result Please view results for these tests on the | | individual orders. | + + CBC AND AUTO DIFF (03/15/2017 11:49 PM) + + + + | Component | Value | Ref Range | + + + + | WHITE CELL COUNT | <0.10 (L) | 3.50 - 10.80 K/cu mm | + + + + | RED CELL COUNT | 2.54 (L) | 4.00 - 5.20 M/cu mm | + + + + | HEMOGLOBIN | 8.0 (L) | 12.0 - 16.0 g/dL | + + + + | HEMATOCRIT | 22.2 (L) | 36.0 - 46.0 % | + + + + | MCV | 87.4 | 80.0 - 96.0 fL | + + + + | MCHC | 36.0 | 33.0 - 35.5 g/dL | + + + + | RDW SD | 40.0 | 35.1 - 46.3 fL | + + + + | PLATELET COUNT | 14 (L) | 150 - 400 K/cu mm | + + + + | MPV | 9.5 (L) | 9.7 - 12.3 fL | + + + + | NRBC% | 0.0 | 0.0 - 0.3 % | + + + + | NRBC# | 0.00 | 0.00 - 0.02 K/cu mm | + + + + | NEUTROPHIL % | Comment: WBC <300; differential not | 50.0 - 70.0 % | | | performed. | | + + + + | LYMPHOCYTE % | Comment: WBC <300; differential not | 18.0 - 42.0 % | | | performed. | | + + + + | MONOCYTE % | Comment: WBC <300; differential not | 3.5 - 9.0 % | | | performed. | | + + + + | EOS % | Comment: WBC <300; differential not | 1.0 - 3.0 % | | | performed. | | + + + + | BASO % | Comment: WBC <300; differential not | 0.0 - 2.0 % | | | performed. | | + + + + | IMMATURE | Comment: WBC <300; differential not | 0.0 - 0.6 % | | GRANULOCYTE% | performed. | | + + + + | NEUTROPHIL # | Comment: WBC <300; differential not | 1.80 - 7.70 K/cu mm | | | performed. | | + + + + | LYMPHOCYTE # | Comment: WBC <300; differential not | 1.00 - 4.80 K/cu mm | | | performed. | | + + + + | MONOCYTE # | Comment: WBC <300; differential not | 0.10 - 0.90 K/cu mm | | | performed. | | + + + + | EOS # | Comment: WBC <300; differential not | 0.00 - 0.50 K/cu mm | | | performed. | | + + + + | BASO # | Comment: WBC <300; differential not | 0.00 - 0.10 K/cu mm | | | performed. | | + + + + | IMMATURE | Comment: WBC <300; differential not | 0.00 - 0.03 K/cu mm | | GRANULOCYTE# | performed. | | + + + + + + + | Specimen | Performing Laboratory | + + + | Blood | [facility], [address] [address] [facility] | | | [place] [address] | + + + PHOSPHORUS, PLASMA (03/15/2017 11:49 PM) + +---------+ + | Component | Value | Ref Range | + +---------+ + | PHOSPHORUS, PLASMA | 2.3 (L) | 2.4 - 4.7 mg/dL | | (LAB) | | | + +---------+ + + + + | Specimen | Performing Laboratory | + + + | Blood | [facility], [address] [place] [address] | | | [place] [address] | + + + MAGNESIUM, PLASMA (03/15/2017 11:49 PM) + +-------+ + | Component | Value | Ref Range | + +-------+ + | MAGNESIUM,PLASMA | 1.9 | 1.6 - 2.6 mg/dL | + +-------+ + + + + | Specimen | Performing Laboratory | + + + | Blood | [facility], [address] [address] [facility] | | | [place] [address] | + + + + + | Narrative | + + | Reference range change effective 12/11/16. | + + COMPLETE METABOLIC SET (NA,K,CL,CO2,BUN,CREAT,GLUC,CA,AST,ALT,BILI TOTAL,ALK PHOS,ALB,PROT TOTAL) (03/15/2017 11:49 PM) + + + + | Component | Value | Ref Range | + + + + | GLUCOSE, PLASMA | 107 (H) | 70 - 99 mg/dL | | (LAB) | | | + + + + | BUN, PLASMA (LAB) | 10 | 6 - 20 mg/dL | + + + + | CREATININE PLASMA | 0.47 (L) | 0.60 - 1.10 mg/dL | | (LAB) | | | + + + + | EGFR - | >60 | >60 mL/min | | UKRAINIAN | | | + + + + | EGFR NON | >60 | >60 mL/min | | -UKRAINIAN | | | + + + + | SODIUM, PLASMA (LAB) | 139 | 136 - 145 mmol/L | + + + + | POTASSIUM, PLASMA | 3.3 (L) | 3.4 - 5.0 mmol/L | | (LAB) | | | + + + + | CHLORIDE, PLASMA | 104 | 97 - 108 mmol/L | | (LAB) | | | + + + + | TOTAL CO2, PLASMA | 28 | 21 - 32 mmol/L | | (LAB) | | | + + + + | CALCIUM, PLASMA | 8.2 (L) | 8.6 - 10.2 mg/dL | | (LAB) | | | + + + + | CALCIUM(ALB | 9.2 | 8.6 - 10.2 mg/dL | | CORRECTED) | | | + + + + | BILIRUBIN TOTAL | 0.7 | 0.3 - 1.2 mg/dL | + + + + | TOTAL PROTEIN, | 5.8 (L) | 6.4 - 8.2 g/dL | | PLASMA (LAB) | | | + + + + | ALBUMIN, PLASMA | 2.8 (L) | 3.5 - 4.7 g/dL | | (LAB) | | | + + + + | ALK PHOS | 156 (H) | 42 - 98 U/L | + + + + | AST(SGOT) | 20 | <=41 U/L | + + + + | ALT (SGPT) | 35 | <=60 U/L | + + + + | ANION GAP | 7 | mmol/L | + + + + | ANION GAP(ALB | 10 | 4 - 11 mmol/L | | CORRECTED) | | | + + + + | POTASSIUM CMNT | No Hemo | | + + + + | BILI T CMNT | No Hemo | | + + + + | AST CMNT | No Hemo | | + + + + + + + | Specimen | Performing Laboratory | + + + | Blood | [facility], [place] [address] | | | [place] [address] | + + + + + | Narrative | + + | Adult glucose reference range change effective 7-17. GFR is estimated using the | | MDRD equation recommended by the National Kidney Disease Education Program. | | Estimated GFR Interpretive Information: <60 mL/min/1.73 sq | | m Chronic Kidney Disease <15 mL/min/1.73 sq | | m Kidney Failure Estimated GFR greater that 60 mL/min/1.73 | | sq m is of limited clinical value. The MDRD equation is not valid in the following | | situations: - Patients under 18 years of age - Severe malnutrition or obesity - | | Vegetarian diet - Rapidly changing kidney function | + + COAGULOPATHY PANEL (INR,APTT,FIBRINOGEN) (03/15/2017 11:49 PM) + +-------+ + | Component | Value | Ref Range | + +-------+ + | INR | 1.05 | 0.90 - 1.20 INR | + +-------+ + | APTT | 28.1 | 26.0 - 36.0 seconds | + +-------+ + | FIBRINOGEN LEVEL | 418 | 200 - 450 mg/dL | + +-------+ + + + + | Specimen | Performing Laboratory | + + + | Blood | [facility], [address] | | | [place] [address] | + + + + + | Narrative | + + | INR Therapeutic ranges for full anticoagulation: INR for Venous | | Thromboembolism (2.0 - 3.0) INR INR for most patients with | | mech. valves (2.5 - 3.5) INR APTT Therapeutic | | Range: (75 - 120) sec Heparin levels | | of 0.35 - 0.7 U/mL | + + CBC, WITH DIFFERENTIAL (03/15/2017 11:49 PM) + + + | Specimen | Performing Laboratory | + + + | Blood | | + + + + + | Narrative | + + | The following orders were created for panel order CBC, WITH DIFFERENTIAL. | | Procedure | | Abnormality Status | | --------- | | ------ CBC AND AUTO | | DIFF[[id number]] Abnormal Final | | result Please view results for these tests on the | | individual orders. | + + TROY PEREZ (03/15/2017 2:48 PM) + + | Narrative | + + | Taylor Shankar RN 03/15/2017 2:51 PM PICC LINE Performed by: TAYLOR SHANKAR | | Authorized by: KRZYSZTOF GALLAGHER PICC/Midline Insertion Procedure Note | | Indications:Chemo Procedure location: Unit:14k Room: Providers: Attending name: | | Attending physically present: No PICC Nurse name: Taylor Shankar RN Assisted by Alexandra Collins | | RN Pre-Procedure Consent: written consent obtained Consent given by: Patient | | Patient identity confirmed per protocol: Yes Team Pause: Immediatly prior to the | | procedure a pause per protocol was called. A pause verifies correct patient, | | procedure, equipment, geophysical support specialist and site/side marked as required. CLABSI | | Prevention Bundle: Skin preparation: Chloraprep Protective barrier: | | Cap, Mask, Hand scrub, Gown, Gloves and Full body drape. Cap and mask worn by | | assistive personnel.Sterile Ultrasound techniques (sterile gel, and sterile probe | | cover) used Dressing: Dressing applied prior of | | removal of full barrier drape and hemostatic agent applied Procedure Details | | Patient was placed in appropriate position The vascular anatomy was identified by | | Ultrasound Guidance.wire through the needle, introducer over the wire, then catheter | | through the introducer Tip was placed using TLS (Tip Locating System) and TPS (Tip | | Positioning System). . A non-tunneled PICC Double lumen 4 Fr was placed in the | | Right Arm area Basilic vein. Catheter lot number: [id number] with a length of 55 cm | | was selected and trimmed 10 to a remaining length of 45 flushed with saline | | Power-injectable line: yes Attempts 1 attempt(s) were made Complications None | | PICC catheter tip location Chest radiograph ordered to verify placement and Line | | verified by radiograph Adjustments made after chest film obtained: no External | | measurement of catheter exposed: 5 cm. PICC catheter tip location: Cavo-Atrial | | Junction Estimated blood loss: <10mL | + + X-RAY PORTABLE CHEST 1 VIEW (03/15/2017 2:47 PM) + + + | Specimen | Performing Laboratory | + + + | | [facility] RADIOLOGY VOICE RECOGNITION | + + + + + | Narrative | + + | STUDY: NE CHEST 1 VIEW 04/29/99 00:00:00 HISTORY: Line placement COMPARISON: | | 03/02/17 FINDINGS: Right sided PICC line has been introduced with its tip in the | | distal SVC at the cavoatrial junction. There is no pleural effusion, pneumothorax, | | focal consolidation or pulmonary edema. The cardiac and mediastinal borders are normal. | | No osseous abnormality is seen. IMPRESSION: Right PICC line with tip in distal | | superior vena cava. Clear lungs. I have personally reviewed the images and, | | if necessary, edited the report. I agree with the report as now presented. | + + + + | Procedure Note | + + | Service Account, Avegant Res In Interface - 03/15/2017 2:48 PM PST STUDY: NE CHEST 1 | | VIEW 04/29/99 00:00:00HISTORY: Line placementCOMPARISON: 03/02/17FINDINGS: Right sided | | PICC line has been introduced with its tip in the distal SVC at the cavoatrial junction. | | There is no pleural effusion, pneumothorax, focal consolidation or pulmonary edema. The | | cardiac and mediastinal borders are normal. No osseous abnormality is seen.IMPRESSION: | | Right PICC line with tip in distal superior vena cava.Clear lungs.I have personally | | reviewed the images and, if necessary, edited the report. I agree with the report as | | now presented. | |Right sided PICC line has been introduced with its tip in the distal SVC at the cavoatrial junction. There is no pleural effusion, pneumothorax, focal consolidation or pulmonary edema . The cardiac and mediastinal | |borders are normal. No osseous abnormality is seen. | | | |IMPRESSION: | | | |Right PICC line with tip in distal superior vena cava. | | | |Clear lungs. | | | | | |I have personally reviewed the images and, if necessary, edited the report. I agree with t he report as now presented. | + + VAT: PICC INSERTION W/US (03/15/2017 1:43 PM) + + | Narrative | + + | See procedure note. | + + BASIC METABOLIC SET (NA, K, CL, TCO2, BUN, CR, GLU, CA) (03/15/2017 12:43 PM) + + + + | Component | Value | Ref Range | + + + + | GLUCOSE, PLASMA | 113 (H) | 70 - 99 mg/dL | | (LAB) | | | + + + + | BUN, PLASMA (LAB) | 8 | 6 - 20 mg/dL | + + + + | CREATININE PLASMA | 0.38 (L) | 0.60 - 1.10 mg/dL | | (LAB) | | | + + + + | EGFR - | >60 | >60 mL/min | | [place]RA[place]IAN | | | + + + + | EGFR NON | >60 | >60 mL/min | | -[place]RA[place] | | | + + + + | SODIUM, PLASMA (LAB) | 138 | 136 - 145 mmol/L | + + + + | POTASSIUM, PLASMA | 3.1 (L) | 3.4 - 5.0 mmol/L | | (LAB) | | | + + + + | CHLORIDE, PLASMA | 103 | 97 - 108 mmol/L | | (LAB) | | | + + + + | TOTAL CO2, PLASMA | 27 | 21 - 32 mmol/L | | (LAB) | | | + + + + | CALCIUM, PLASMA | 8.2 (L) | 8.6 - 10.2 mg/dL | | (LAB) | | | + + + + | ANION GAP | 8 | mmol/L | + + + + | POTASSIUM CMNT | No Hemo | | + + + + + + + | Specimen | Performing Laboratory | + + + | Blood | [facility], CORE [address] [facility] | | | [place] [address] | + + + + + | Narrative | + + | Adult glucose reference range change effective 11-07-. GFR is estimated using the | | MDRD equation recommended by the National Kidney Disease Education Program. | | Estimated GFR Interpretive Information: <60 mL/min/1.73 sq | | m Chronic Kidney Disease <15 mL/min/1.73 sq | | m Kidney Failure Estimated GFR greater that 60 mL/min/1.73 | | sq m is of limited clinical value. The MDRD equation is not valid in the following | | situations: - Patients under 18 years of age - Severe malnutrition or obesity - | | Vegetarian diet - Rapidly changing kidney function | + + ANTIBODY SCREEN (03/15/2017 4:06 AM) + + + + | Component | Value | Ref Range | + + + + | Antibody Screen | Negative | | + + + + + + + | Specimen | Performing Laboratory | + + + | Blood | [facility], TRANSFUSION MEDICINE [address] [facility] | | | [place] [address] | + + + ABO & RH TYPE (03/15/2017 4:06 AM) + + + + | Component | Value | Ref Range | + + + + | ABO Group | O | | + + + + | Rh Type | Positive | | + + + + + + + | Specimen | Performing Laboratory | + + + | Blood | [facility], [facility]SF[facility]ION MEDICINE [address] [facility] | | | [place] [address] | + + + TYPE AND SCREEN (03/15/2017 4:06 AM) + + + | Specimen | Performing Laboratory | + + + | Blood | | + + + + + | Narrative | + + | The following orders were created for panel order TYPE AND SCREEN. | | Procedure | | Abnormality Status | | --------- | | ------ ABO & RH | | TYPE[[id number]] F | | inal result ANTIBODY | | SCREEN[[id number]] Fin | | al result Please view results for these tests on the | | individual orders. | + + PRODUCT - RED CELLS LEUKOREDUCED (03/15/2017 4:05 AM) + + + + | Component | Value | Ref Range | + + + + | PRODUCT DESCRIPTION | -1 RED BLOOD CELLS ADENINE-SALINE ADDED | | | | LEUKOCYT | | + + + + | PRODUCT UNIT # | [id number] | | + + + + | UNIT ABO | O | | + + + + | UNIT RH | POS | | + + + + | STATUS OF UNIT | Presumed Transfused | | + + + + | EXPIRATION DATE | [id number] | | + + + + | BLOOD TYPE BARCODE | 5100 | | + + + + | BLOOD PRODUCT CODE | [id number] | | + + + + + + + | Specimen | Performing Laboratory | + + + | | [facility], TRANSFUSION MEDICINE [address] | | | [place] [address] | + + + CBC AND AUTO DIFF (03/14/2017 11:25 PM) + + + + | Component | Value | Ref Range | + + + + | WHITE CELL COUNT | <0.10 (L) | 3.50 - 10.80 K/cu mm | + + + + | RED CELL COUNT | 2.26 (L) | 4.00 - 5.20 M/cu mm | + + + + | HEMOGLOBIN | 7.1 (L) | 12.0 - 16.0 g/dL | + + + + | HEMATOCRIT | 19.9 (L) | 36.0 - 46.0 % | + + + + | MCV | 88.1 | 80.0 - 96.0 fL | + + + + | MCHC | 35.7 | 33.0 - 35.5 g/dL | + + + + | RDW SD | 40.0 | 35.1 - 46.3 fL | + + + + | PLATELET COUNT | 20 (L) | 150 - 400 K/cu mm | + + + + | MPV | 9.9 | 9.7 - 12.3 fL | + + + + | NRBC% | 0.0 | 0.0 - 0.3 % | + + + + | NRBC# | 0.00 | 0.00 - 0.02 K/cu mm | + + + + | NEUTROPHIL % | Comment: WBC <300; differential not | 50.0 - 70.0 % | | | performed. | | + + + + | LYMPHOCYTE % | Comment: WBC <300; differential not | 18.0 - 42.0 % | | | performed. | | + + + + | MONOCYTE % | Comment: WBC <300; differential not | 3.5 - 9.0 % | | | performed. | | + + + + | EOS % | Comment: WBC <300; differential not | 1.0 - 3.0 % | | | performed. | | + + + + | BASO % | Comment: WBC <300; differential not | 0.0 - 2.0 % | | | performed. | | + + + + | IMMATURE | Comment: WBC <300; differential not | 0.0 - 0.6 % | | GRANULOCYTE% | performed. | | + + + + | NEUTROPHIL # | Comment: WBC <300; differential not | 1.80 - 7.70 K/cu mm | | | performed. | | + + + + | LYMPHOCYTE # | Comment: WBC <300; differential not | 1.00 - 4.80 K/cu mm | | | performed. | | + + + + | MONOCYTE # | Comment: WBC <300; differential not | 0.10 - 0.90 K/cu mm | | | performed. | | + + + + | EOS # | Comment: WBC <300; differential not | 0.00 - 0.50 K/cu mm | | | performed. | | + + + + | BASO # | Comment: WBC <300; differential not | 0.00 - 0.10 K/cu mm | | | performed. | | + + + + | IMMATURE | Comment: WBC <300; differential not | 0.00 - 0.03 K/cu mm | | GRANULOCYTE# | performed. | | + + + + + + + | Specimen | Performing Laboratory | + + + | Blood | [facility], CORE [address] [facility] | | | [place], [place] [address] | + + + PHOSPHORUS, PLASMA (03/14/2017 11:25 PM) + +---------+ + | Component | Value | Ref Range | + +---------+ + | PHOSPHORUS, PLASMA | 2.3 (L) | 2.4 - 4.7 mg/dL | | (LAB) | | | + +---------+ + + + + | Specimen | Performing Laboratory | + + + | Blood | [facility], CORE [address] [place] [address] | | | [place] [address] | + + + MAGNESIUM, PLASMA (03/14/2017 11:25 PM) + +-------+ + | Component | Value | Ref Range | + +-------+ + | MAGNESIUM,PLASMA | 2.0 | 1.6 - 2.6 mg/dL | + +-------+ + + + + | Specimen | Performing Laboratory | + + + | Blood | [facility], CORE [address] [place] [address] | | | [place] [address] | + + + + + | Narrative | + + | Reference range change effective 12/11/16. | + + COMPLETE METABOLIC SET (NA,K,CL,CO2,BUN,CREAT,GLUC,CA,AST,ALT,BILI TOTAL,ALK PHOS,ALB,PROT TOTAL) (03/14/2017 11:25 PM) + + + + | Component | Value | Ref Range | + + + + | GLUCOSE, PLASMA | 115 (H) | 70 - 99 mg/dL | | (LAB) | | | + + + + | BUN, PLASMA (LAB) | 7 | 6 - 20 mg/dL | + + + + | CREATININE PLASMA | 0.40 (L) | 0.60 - 1.10 mg/dL | | (LAB) | | | + + + + | EGFR - | >60 | >60 mL/min | | UKRAINIAN | | | + + + + | EGFR NON | >60 | >60 mL/min | | -UKRAINIAN | | | + + + + | SODIUM, PLASMA (LAB) | 141 | 136 - 145 mmol/L | + + + + | POTASSIUM, PLASMA | 2.8 (L) | 3.4 - 5.0 mmol/L | | (LAB) | | | + + + + | CHLORIDE, PLASMA | 103 | 97 - 108 mmol/L | | (LAB) | | | + + + + | TOTAL CO2, PLASMA | 28 | 21 - 32 mmol/L | | (LAB) | | | + + + + | CALCIUM, PLASMA | 7.6 (L) | 8.6 - 10.2 mg/dL | | (LAB) | | | + + + + | CALCIUM(ALB | 8.9 | 8.6 - 10.2 mg/dL | | CORRECTED) | | | + + + + | BILIRUBIN TOTAL | 0.5 | 0.3 - 1.2 mg/dL | + + + + | TOTAL PROTEIN, | 5.2 (L) | 6.4 - 8.2 g/dL | | PLASMA (LAB) | | | + + + + | ALBUMIN, PLASMA | 2.4 (L) | 3.5 - 4.7 g/dL | | (LAB) | | | + + + + | ALK PHOS | 145 (H) | 42 - 98 U/L | + + + + | AST(SGOT) | 19 | <=41 U/L | + + + + | ALT (SGPT) | 35 | <=60 U/L | + + + + | ANION GAP | 10 | mmol/L | + + + + | ANION GAP(ALB | 14 (H) | 4 - 11 mmol/L | | CORRECTED) | | | + + + + | POTASSIUM CMNT | No Hemo | | + + + + | BILI T CMNT | No Hemo | | + + + + | AST CMNT | No Hemo | | + + + + + + + | Specimen | Performing Laboratory | + + + | Blood | [facility], [place] [address] [facility] [address] | | | [place] [facility] | + + + + + | Narrative | + + | Adult glucose reference range change effective 7-12-17. GFR is estimated using the | | MDRD equation recommended by the National Kidney Disease Education Program. | | Estimated GFR Interpretive Information: <60 mL/min/1.73 sq | | m Chronic Kidney Disease <15 mL/min/1.73 sq | | m Kidney Failure Estimated GFR greater that 60 mL/min/1.73 | | sq m is of limited clinical value. The MDRD equation is not valid in the following | | situations: - Patients under 18 years of age - Severe malnutrition or obesity - | | Vegetarian diet - Rapidly changing kidney function | + + COAGULOPATHY PANEL (INR,APTT,FIBRINOGEN) (03/14/2017 11:25 PM) + + + + | Component | Value | Ref Range | + + + + | INR | 1.10 | 0.90 - 1.20 INR | + + + + | APTT | 22.4 (L) | 26.0 - 36.0 seconds | + + + + | FIBRINOGEN LEVEL | 92 (L) | 200 - 450 mg/dL | + + + + + + + | Specimen | Performing Laboratory | + + + | Blood | [facility], CORE [address] | | | [place], [place] [address] | + + + + + | Narrative | + + | INR Therapeutic ranges for full anticoagulation: INR for Venous | | Thromboembolism (2.0 - 3.0) INR INR for most patients with | | mech. valves (2.5 - 3.5) INR APTT Therapeutic | | Range: (75 - 120) sec Heparin levels | | of 0.35 - 0.7 U/mL | + + CBC, WITH DIFFERENTIAL (03/14/2017 11:25 PM) + + + | Specimen | Performing Laboratory | + + + | Blood | | + + + + + | Narrative | + + | The following orders were created for panel order CBC, WITH DIFFERENTIAL. | | Procedure | | Abnormality Status | | --------- | | ------ CBC AND AUTO | | DIFF[[id number]] Abnormal Final | | result Please view results for these tests on the | | individual orders. | + + VANCOMYCIN, TROUGH (03/14/2017 12:33 PM) + +-------+ + | Component | Value | Ref Range | + +-------+ + | VANCOMYCIN, TROUGH | 10.2 | 10.0 - 20.0 ug/mL | + +-------+ + + + + | Specimen | Performing Laboratory | + + + | Blood | [facility], CORE [address] [facility] | | | [place] [address] | + + + + + | Narrative | + + | Draw trough prior to 1300 dose on 03/14 Reference range change effective | | 01/21/2017. | + + POSACONAZOLE, QUANT (03/14/2017 8:05 AM) + + + + | Component | Value | Ref Range | + + + + | POSACONAZOLE, | 1.3Comment: INTERPRETIVE INFORMATION: | >=0.8 ug/mL | | QUANTITATION | Posaconazole, Quantitative | | | | | | | | by LC-MS/MS Therapeutic Range | | | | (trough): Greater than 0.7 ug/mL Adverse | | | | effects may include fever, nausea, | | | | vomiting, diarrhea, cardiac arrhythmias and | | | | liver toxicity. Test developed and | | | | characteristics determined by [facility] | | | | Laboratories. See Compliance Statement B: | | | | [employer]/CSP[facility]formed by [facility] | | | | [facility],[address] [place], [place] [address]sam [place]án[place] [address] | | | | [phone].[employer], Kelton Banks, | | | | Olive ANTUNEZ. Director | | | |[email or web address].[employer], Kelton Banks MD, Lab. Director | | + + + + + + + | Specimen | Performing Laboratory | + + + | Blood | [facility] [address] [facility] | | | [place] [address] | + + + PRODUCT - PLATELET PHERESIS LEUKOREDUCED (03/14/2017 1:28 AM) + + + + | Component | Value | Ref Range | + + + + | PRODUCT DESCRIPTION | APHERESIS | | | | PLATELETS,PAS,LEUKOREDUCED,IRRADIATED | | + + + + | PRODUCT UNIT # | [id number] | | + + + + | UNIT ABO | O | | + + + + | UNIT RH | POS | | + + + + | STATUS OF UNIT | Presumed Transfused | | + + + + | EXPIRATION DATE | [id number] | | + + + + | BLOOD TYPE BARCODE | 5100 | | + + + + | BLOOD PRODUCT CODE | [id number] | | + + + + + + + | Specimen | Performing Laboratory | + + + | | [facility], TRANSFUSION MEDICINE [address] [facility] | | | [place] [address] [id number] | + + + CBC AND AUTO DIFF (03/13/2017 11:55 PM) + + + + | Component | Value | Ref Range | + + + + | WHITE CELL COUNT | <0.10 (L) | 3.50 - 10.80 K/cu mm | + + + + | RED CELL COUNT | 2.38 (L) | 4.00 - 5.20 M/cu mm | + + + + | HEMOGLOBIN | 7.4 (L) | 12.0 - 16.0 g/dL | + + + + | HEMATOCRIT | 21.3 (L) | 36.0 - 46.0 % | + + + + | MCV | 89.5 | 80.0 - 96.0 fL | + + + + | MCHC | 34.7 | 33.0 - 35.5 g/dL | + + + + | RDW SD | 40.2 | 35.1 - 46.3 fL | + + + + | PLATELET COUNT | 18 (L) | 150 - 400 K/cu mm | + + + + | MPV | 9.9 | 9.7 - 12.3 fL | + + + + | NRBC% | 0.0 | 0.0 - 0.3 % | + + + + | NRBC# | 0.00 | 0.00 - 0.02 K/cu mm | + + + + | NEUTROPHIL % | Comment: WBC <300; differential not | 50.0 - 70.0 % | | | performed. | | + + + + | LYMPHOCYTE % | Comment: WBC <300; differential not | 18.0 - 42.0 % | | | performed. | | + + + + | MONOCYTE % | Comment: WBC <300; differential not | 3.5 - 9.0 % | | | performed. | | + + + + | EOS % | Comment: WBC <300; differential not | 1.0 - 3.0 % | | | performed. | | + + + + | BASO % | Comment: WBC <300; differential not | 0.0 - 2.0 % | | | performed. | | + + + + | IMMATURE | Comment: WBC <300; differential not | 0.0 - 0.6 % | | GRANULOCYTE% | performed. | | + + + + | NEUTROPHIL # | Comment: WBC <300; differential not | 1.80 - 7.70 K/cu mm | | | performed. | | + + + + | LYMPHOCYTE # | Comment: WBC <300; differential not | 1.00 - 4.80 K/cu mm | | | performed. | | + + + + | MONOCYTE # | Comment: WBC <300; differential not | 0.10 - 0.90 K/cu mm | | | performed. | | + + + + | EOS # | Comment: WBC <300; differential not | 0.00 - 0.50 K/cu mm | | | performed. | | + + + + | BASO # | Comment: WBC <300; differential not | 0.00 - 0.10 K/cu mm | | | performed. | | + + + + | IMMATURE | Comment: WBC <300; differential not | 0.00 - 0.03 K/cu mm | | GRANULOCYTE# | performed. | | + + + + + + + | Specimen | Performing Laboratory | + + + | Blood | [facility], CORE [address] [facility] [address] | | | [place] [address] | + + + PHOSPHORUS, PLASMA (03/13/2017 11:55 PM) + +---------+ + | Component | Value | Ref Range | + +---------+ + | PHOSPHORUS, PLASMA | 2.1 (L) | 2.4 - 4.7 mg/dL | | (LAB) | | | + +---------+ + + + + | Specimen | Performing Laboratory | + + + | Blood | [facility], CORE [address] [facility] | | | [place] [address] | + + + LDH TOTAL, PLASMA (03/13/2017 11:55 PM) + +---------+ + | Component | Value | Ref Range | + +---------+ + | LD TOTAL, PLASMA | 508 (H) | <=250 U/L | + +---------+ + | LD CMNT | No Hemo | | + +---------+ + + + + | Specimen | Performing Laboratory | + + + | Blood | [facility], CORE [address] [facility] | | | [place], [place] [address] | + + + MAGNESIUM, PLASMA (03/13/2017 11:55 PM) + +-------+ + | Component | Value | Ref Range | + +-------+ + | MAGNESIUM,PLASMA | 2.1 | 1.6 - 2.6 mg/dL | + +-------+ + + + + | Specimen | Performing Laboratory | + + + | Blood | [facility], CORE [address] [facility] | | | [place] [address] | + + + + + | Narrative | + + | Reference range change effective 12/11/16. | + + COMPLETE METABOLIC SET (NA,K,CL,CO2,BUN,CREAT,GLUC,CA,AST,ALT,BILI TOTAL,ALK PHOS,ALB,PROT TOTAL) (03/13/2017 11:55 PM) + + + + | Component | Value | Ref Range | + + + + | GLUCOSE, PLASMA | 103 (H) | 70 - 99 mg/dL | | (LAB) | | | + + + + | BUN, PLASMA (LAB) | 10 | 6 - 20 mg/dL | + + + + | CREATININE PLASMA | 0.34 (L) | 0.60 - 1.10 mg/dL | | (LAB) | | | + + + + | EGFR - | >60 | >60 mL/min | | UKRAINIAN | | | + + + + | EGFR NON | >60 | >60 mL/min | | -UKRAINIAN | | | + + + + | SODIUM, PLASMA (LAB) | 139 | 136 - 145 mmol/L | + + + + | POTASSIUM, PLASMA | 3.3 (L) | 3.4 - 5.0 mmol/L | | (LAB) | | | + + + + | CHLORIDE, PLASMA | 104 | 97 - 108 mmol/L | | (LAB) | | | + + + + | TOTAL CO2, PLASMA | 27 | 21 - 32 mmol/L | | (LAB) | | | + + + + | CALCIUM, PLASMA | 7.6 (L) | 8.6 - 10.2 mg/dL | | (LAB) | | | + + + + | CALCIUM(ALB | 8.8 | 8.6 - 10.2 mg/dL | | CORRECTED) | | | + + + + | BILIRUBIN TOTAL | 0.6 | 0.3 - 1.2 mg/dL | + + + + | TOTAL PROTEIN, | 5.2 (L) | 6.4 - 8.2 g/dL | | PLASMA (LAB) | | | + + + + | ALBUMIN, PLASMA | 2.5 (L) | 3.5 - 4.7 g/dL | | (LAB) | | | + + + + | ALK PHOS | 136 (H) | 42 - 98 U/L | + + + + | AST(SGOT) | 20 | <=41 U/L | + + + + | ALT (SGPT) | 35 | <=60 U/L | + + + + | ANION GAP | 8 | mmol/L | + + + + | ANION GAP(ALB | 11 | 4 - 11 mmol/L | | CORRECTED) | | | + + + + | POTASSIUM CMNT | No Hemo | | + + + + | BILI T CMNT | No Hemo | | + + + + | AST CMNT | No Hemo | | + + + + + + + | Specimen | Performing Laboratory | + + + | Blood | [facility], CORE [address] [facility] | | | [place] [address] | + + + + + | Narrative | + + | Adult glucose reference range change effective 11-07-17. GFR is estimated using the | | MDRD equation recommended by the National Kidney Disease Education Program. | | Estimated GFR Interpretive Information: <60 mL/min/1.73 sq | | m Chronic Kidney Disease <15 mL/min/1.73 sq | | m Kidney Failure Estimated GFR greater that 60 mL/min/1.73 | | sq m is of limited clinical value. The MDRD equation is not valid in the following | | situations: - Patients under 18 years of age - Severe malnutrition or obesity - | | Vegetarian diet - Rapidly changing kidney function | + + COAGULOPATHY PANEL (INR,APTT,FIBRINOGEN) (03/13/2017 11:55 PM) + +-------+ + | Component | Value | Ref Range | + +-------+ + | INR | 1.08 | 0.90 - 1.20 INR | + +-------+ + | APTT | 28.4 | 26.0 - 36.0 seconds | + +-------+ + | FIBRINOGEN LEVEL | 337 | 200 - 450 mg/dL | + +-------+ + + + + | Specimen | Performing Laboratory | + + + | Blood | [facility], CORE [address] [facility] | | | [place] [address] | + + + + + | Narrative | + + | INR Therapeutic ranges for full anticoagulation: INR for Venous | | Thromboembolism (2.0 - 3.0) INR INR for most patients with | | mech. valves (2.5 - 3.5) INR APTT Therapeutic | | Range: (75 - 120) sec Heparin levels | | of 0.35 - 0.7 U/mL | + + CBC, WITH DIFFERENTIAL (03/13/2017 11:55 PM) + + + | Specimen | Performing Laboratory | + + + | Blood | | + + + + + | Narrative | + + | The following orders were created for panel order CBC, WITH DIFFERENTIAL. | | Procedure | | Abnormality Status | | --------- | | ------ CBC AND AUTO | | DIFF[[id number]] Abnormal Final | | result Please view results for these tests on the | | individual orders. | + + C. DIFFICILE TOXIN, W/REFLEX CONFIRMATION IF INDETERMINATE RESULTS (03/13/2017 1:09 PM) + + + + | Component | Value | Ref Range | + + + + | C.DIFFICILE TOXIN | Negative | Negative | + + + + + + + | Specimen | Performing Laboratory | + + + | Stool - Rectum | [facility], CORE [address] [place] [address] | | | [place] [address] | + + + PRODUCT - PLATELET PHERESIS LEUKOREDUCED (03/13/2017 3:35 AM) + + + + | Component | Value | Ref Range | + + + + | PRODUCT DESCRIPTION | PLATELETS PHERESIS, LEUKOCYTE REDUCED, | | | | IRRADIATED | | + + + + | PRODUCT UNIT # | [id number] | | + + + + | UNIT ABO | O | | + + + + | UNIT RH | POS | | + + + + | STATUS OF UNIT | Presumed Transfused | | + + + + | EXPIRATION DATE | [id number] | | + + + + | BLOOD TYPE BARCODE | 5100 | | + + + + | BLOOD PRODUCT CODE | [id number] | | + + + + + + + | Specimen | Performing Laboratory | + + + | | [facility], TRANSFUSION MEDICINE [address] [facility] | | | [place] [address] | + + + CBC AND AUTO DIFF (03/12/2017 11:21 PM) + + + + | Component | Value | Ref Range | + + + + | WHITE CELL COUNT | <0.10 (L) | 3.50 - 10.80 K/cu mm | + + + + | RED CELL COUNT | 2.56 (L) | 4.00 - 5.20 M/cu mm | + + + + | HEMOGLOBIN | 7.9 (L) | 12.0 - 16.0 g/dL | + + + + | HEMATOCRIT | 23.1 (L) | 36.0 - 46.0 % | + + + + | MCV | 90.2 | 80.0 - 96.0 fL | + + + + | MCHC | 34.2 | 33.0 - 35.5 g/dL | + + + + | RDW SD | 41.1 | 35.1 - 46.3 fL | + + + + | PLATELET COUNT | 13 (L) | 150 - 400 K/cu mm | + + + + | MPV | 10.3 | 9.7 - 12.3 fL | + + + + | NRBC% | 0.0 | 0.0 - 0.3 % | + + + + | NRBC# | 0.00 | 0.00 - 0.02 K/cu mm | + + + + | NEUTROPHIL % | Comment: WBC <300; differential not | 50.0 - 70.0 % | | | performed. | | + + + + | LYMPHOCYTE % | Comment: WBC <300; differential not | 18.0 - 42.0 % | | | performed. | | + + + + | MONOCYTE % | Comment: WBC <300; differential not | 3.5 - 9.0 % | | | performed. | | + + + + | EOS % | Comment: WBC <300; differential not | 1.0 - 3.0 % | | | performed. | | + + + + | BASO % | Comment: WBC <300; differential not | 0.0 - 2.0 % | | | performed. | | + + + + | IMMATURE | Comment: WBC <300; differential not | 0.0 - 0.6 % | | GRANULOCYTE% | performed. | | + + + + | NEUTROPHIL # | Comment: WBC <300; differential not | 1.80 - 7.70 K/cu mm | | | performed. | | + + + + | LYMPHOCYTE # | Comment: WBC <300; differential not | 1.00 - 4.80 K/cu mm | | | performed. | | + + + + | MONOCYTE # | Comment: WBC <300; differential not | 0.10 - 0.90 K/cu mm | | | performed. | | + + + + | EOS # | Comment: WBC <300; differential not | 0.00 - 0.50 K/cu mm | | | performed. | | + + + + | BASO # | Comment: WBC <300; differential not | 0.00 - 0.10 K/cu mm | | | performed. | | + + + + | IMMATURE | Comment: WBC <300; differential not | 0.00 - 0.03 K/cu mm | | GRANULOCYTE# | performed. | | + + + + + + + | Specimen | Performing Laboratory | + + + | Blood | [facility], [address] | | | [place] [address] | + + + PHOSPHORUS, PLASMA (03/12/2017 11:21 PM) + +-------+ + | Component | Value | Ref Range | + +-------+ + | PHOSPHORUS, PLASMA | 2.5 | 2.4 - 4.7 mg/dL | | (LAB) | | | + +-------+ + + + + | Specimen | Performing Laboratory | + + + | Blood | [facility], [address] | | | [place] [address] | + + + MAGNESIUM, PLASMA (03/12/2017 11:21 PM) + +-------+ + | Component | Value | Ref Range | + +-------+ + | MAGNESIUM,PLASMA | 2.4 | 1.6 - 2.6 mg/dL | + +-------+ + + + + | Specimen | Performing Laboratory | + + + | Blood | [facility], [address] | | | [place] [address] | + + + + + | Narrative | + + | Reference range change effective 12/11/16. | + + COMPLETE METABOLIC SET (NA,K,CL,CO2,BUN,CREAT,GLUC,CA,AST,ALT,BILI TOTAL,ALK PHOS,ALB,PROT TOTAL) (03/12/2017 11:21 PM) + + + + | Component | Value | Ref Range | + + + + | GLUCOSE, PLASMA | 100 (H) | 70 - 99 mg/dL | | (LAB) | | | + + + + | BUN, PLASMA (LAB) | 15 | 6 - 20 mg/dL | + + + + | CREATININE PLASMA | 0.47 (L) | 0.60 - 1.10 mg/dL | | (LAB) | | | + + + + | EGFR - | >60 | >60 mL/min | | UKRAINIAN | | | + + + + | EGFR NON | >60 | >60 mL/min | | -UKRAINIAN | | | + + + + | SODIUM, PLASMA (LAB) | 141 | 136 - 145 mmol/L | + + + + | POTASSIUM, PLASMA | 3.6 | 3.4 - 5.0 mmol/L | | (LAB) | | | + + + + | CHLORIDE, PLASMA | 107 | 97 - 108 mmol/L | | (LAB) | | | + + + + | TOTAL CO2, PLASMA | 27 | 21 - 32 mmol/L | | (LAB) | | | + + + + | CALCIUM, PLASMA | 7.8 (L) | 8.6 - 10.2 mg/dL | | (LAB) | | | + + + + | CALCIUM(ALB | 8.9 | 8.6 - 10.2 mg/dL | | CORRECTED) | | | + + + + | BILIRUBIN TOTAL | 0.7 | 0.3 - 1.2 mg/dL | + + + + | TOTAL PROTEIN, | 5.5 (L) | 6.4 - 8.2 g/dL | | PLASMA (LAB) | | | + + + + | ALBUMIN, PLASMA | 2.6 (L) | 3.5 - 4.7 g/dL | | (LAB) | | | + + + + | ALK PHOS | 145 (H) | 42 - 98 U/L | + + + + | AST(SGOT) | 26 | <=41 U/L | + + + + | ALT (SGPT) | 40 | <=60 U/L | + + + + | ANION GAP | 7 | mmol/L | + + + + | ANION GAP(ALB | 10 | 4 - 11 mmol/L | | CORRECTED) | | | + + + + | POTASSIUM CMNT | No Hemo | | + + + + | LYSSAI T CMNT | No Hemo | | + + + + | AST CMNT | No Hemo | | + + + + + + + | Specimen | Performing Laboratory | + + + | Blood | [facility], [address] | | | [place] [address] | + + + + + | Narrative | + + | Adult glucose reference range change effective 7-17. GFR is estimated using the | | MDRD equation recommended by the National Kidney Disease Education Program. | | Estimated GFR Interpretive Information: <60 mL/min/1.73 sq | | m Chronic Kidney Disease <15 mL/min/1.73 sq | | m Kidney Failure Estimated GFR greater that 60 mL/min/1.73 | | sq m is of limited clinical value. The MDRD equation is not valid in the following | | situations: - Patients under 18 years of age - Severe malnutrition or obesity - | | Vegetarian diet - Rapidly changing kidney function | + + COAGULOPATHY PANEL (INR,APTT,FIBRINOGEN) (03/12/2017 11:21 PM) + + + + | Component | Value | Ref Range | + + + + | INR | 1.13 | 0.90 - 1.20 INR | + + + + | APTT | 25.9 (L) | 26.0 - 36.0 seconds | + + + + | FIBRINOGEN LEVEL | 267 | 200 - 450 mg/dL | + + + + + + + | Specimen | Performing Laboratory | + + + | Blood | [facility], [place] [address] [place] [address] | | | [place] [address] | + + + + + | Narrative | + + | INR Therapeutic ranges for full anticoagulation: INR for Venous | | Thromboembolism (2.0 - 3.0) INR INR for most patients with | | mech. valves (2.5 - 3.5) INR APTT Therapeutic | | Range: (75 - 120) sec Heparin levels | | of 0.35 - 0.7 U/mL | + + CBC, WITH DIFFERENTIAL (03/12/2017 11:21 PM) + + + | Specimen | Performing Laboratory | + + + | Blood | | + + + + + | Narrative | + + | The following orders were created for panel order CBC, WITH DIFFERENTIAL. | | Procedure | | Abnormality Status | | --------- | | ------ CBC AND AUTO | | DIFF[[id number]] Abnormal Final | | result Please view results for these tests on the | | individual orders. | + + CULTURE, BLOOD BACTI & YEAST [place] (03/12/2017 11:22 AM) + + + + | Component | Value | Ref Range | + + + + | CULTURE RESULT | Final Report:No Bacteria or Yeast isolated | | | | at 5 days. | | + + + + + + + | Specimen | Performing Laboratory | + + + | Blood - Red port | [facility], [address] | | lumen | [place] [address] | + + + CULTURE, BLOOD BACTI & YEAST (03/12/2017 11:22 AM) + + + | Specimen | Performing Laboratory | + + + | Blood - Red port | | | lumen | | + + + + + | Narrative | + + | The following orders were created for panel order CULTURE, BLOOD BACTI & YEAST. | | Procedure | | Abnormality Status | | --------- | | ------ CULTURE, BLOOD | | BACTI & Y...[[id number]] Final | | result Please view results for these tests on the | | individual orders. | + + PRODUCT - PLATELET PHERESIS LEUKOREDUCED (03/12/2017 1:34 AM) + + + + | Component | Value | Ref Range | + + + + | PRODUCT DESCRIPTION | PLATELETS PHERESIS, LEUKOCYTE REDUCED, | | | | IRRADIATED | | + + + + | PRODUCT UNIT # | [id number] | | + + + + | UNIT ABO | O | | + + + + | UNIT RH | POS | | + + + + | STATUS OF UNIT | Presumed Transfused | | + + + + | EXPIRATION DATE | [id number] | | + + + + | BLOOD TYPE BARCODE | 5100 | | + + + + | BLOOD PRODUCT CODE | [id number] | | + + + + + + + | Specimen | Performing Laboratory | + + + | | [facility], TRANSFUSION MEDICINE [address] [facility] | | | [place] [address] | + + + CBC AND AUTO DIFF (03/11/2017 11:02 PM) + + + + | Component | Value | Ref Range | + + + + | WHITE CELL COUNT | <0.10 (L) | 3.50 - 10.80 K/cu mm | + + + + | RED CELL COUNT | 2.71 (L) | 4.00 - 5.20 M/cu mm | + + + + | HEMOGLOBIN | 8.4 (L) | 12.0 - 16.0 g/dL | + + + + | HEMATOCRIT | 24.1 (L) | 36.0 - 46.0 % | + + + + | MCV | 88.9 | 80.0 - 96.0 fL | + + + + | MCHC | 34.9 | 33.0 - 35.5 g/dL | + + + + | RDW SD | 40.4 | 35.1 - 46.3 fL | + + + + | PLATELET COUNT | 17 (L) | 150 - 400 K/cu mm | + + + + | MPV | 10.7 | 9.7 - 12.3 fL | + + + + | NRBC% | 0.0 | 0.0 - 0.3 % | + + + + | NRBC# | 0.00 | 0.00 - 0.02 K/cu mm | + + + + | NEUTROPHIL % | Comment: WBC <300; differential not | 50.0 - 70.0 % | | | performed. | | + + + + | LYMPHOCYTE % | Comment: WBC <300; differential not | 18.0 - 42.0 % | | | performed. | | + + + + | MONOCYTE % | Comment: WBC <300; differential not | 3.5 - 9.0 % | | | performed. | | + + + + | EOS % | Comment: WBC <300; differential not | 1.0 - 3.0 % | | | performed. | | + + + + | BASO % | Comment: WBC <300; differential not | 0.0 - 2.0 % | | | performed. | | + + + + | IMMATURE | Comment: WBC <300; differential not | 0.0 - 0.6 % | | GRANULOCYTE% | performed. | | + + + + | NEUTROPHIL # | Comment: WBC <300; differential not | 1.80 - 7.70 K/cu mm | | | performed. | | + + + + | LYMPHOCYTE # | Comment: WBC <300; differential not | 1.00 - 4.80 K/cu mm | | | performed. | | + + + + | MONOCYTE # | Comment: WBC <300; differential not | 0.10 - 0.90 K/cu mm | | | performed. | | + + + + | EOS # | Comment: WBC <300; differential not | 0.00 - 0.50 K/cu mm | | | performed. | | + + + + | BASO # | Comment: WBC <300; differential not | 0.00 - 0.10 K/cu mm | | | performed. | | + + + + | IMMATURE | Comment: WBC <300; differential not | 0.00 - 0.03 K/cu mm | | GRANULOCYTE# | performed. | | + + + + + + + | Specimen | Performing Laboratory | + + + | Blood | [facility], [address] [address] [facility] | | | [place] [address] | + + + PHOSPHORUS, PLASMA (03/11/2017 11:02 PM) + +---------+ + | Component | Value | Ref Range | + +---------+ + | PHOSPHORUS, PLASMA | 1.7 (L) | 2.4 - 4.7 mg/dL | | (LAB) | | | + +---------+ + + + + | Specimen | Performing Laboratory | + + + | Blood | [facility], [address] [place] [address] | | | [place] [address] | + + + COAGULOPATHY PANEL (INR,APTT,FIBRINOGEN) (03/11/2017 11:02 PM) + + + + | Component | Value | Ref Range | + + + + | INR | 1.14 | 0.90 - 1.20 INR | + + + + | APTT | 24.5 (L) | 26.0 - 36.0 seconds | + + + + | FIBRINOGEN LEVEL | 258 | 200 - 450 mg/dL | + + + + + + + | Specimen | Performing Laboratory | + + + | Blood | [facility], [address] [facility] | | | [place] [address] | + + + + + | Narrative | + + | INR Therapeutic ranges for full anticoagulation: INR for Venous | | Thromboembolism (2.0 - 3.0) INR INR for most patients with | | mech. valves (2.5 - 3.5) INR APTT Therapeutic | | Range: (75 - 120) sec Heparin levels | | of 0.35 - 0.7 U/mL | + + CBC, WITH DIFFERENTIAL (03/11/2017 11:02 PM) + + + | Specimen | Performing Laboratory | + + + | Blood | | + + + + + | Narrative | + + | The following orders were created for panel order CBC, WITH DIFFERENTIAL. | | Procedure | | Abnormality Status | | --------- | | ------ CBC AND AUTO | | DIFF[[id number]] Abnormal Final | | result Please view results for these tests on the | | individual orders. | + + MAGNESIUM, PLASMA (03/11/2017 11:02 PM) + +-------+ + | Component | Value | Ref Range | + +-------+ + | MAGNESIUM,PLASMA | 2.2 | 1.6 - 2.6 mg/dL | + +-------+ + + + + | Specimen | Performing Laboratory | + + + | Blood | [facility], [address] [facility] | | | [place] [address] | + + + + + | Narrative | + + | Reference range change effective 12/11/16. | + + COMPLETE METABOLIC SET (NA,K,CL,CO2,BUN,CREAT,GLUC,CA,AST,ALT,BILI TOTAL,ALK PHOS,ALB,PROT TOTAL) (03/11/2017 11:02 PM) + + + + | Component | Value | Ref Range | + + + + | GLUCOSE, PLASMA | 127 (H) | 70 - 99 mg/dL | | (LAB) | | | + + + + | BUN, PLASMA (LAB) | 19 | 6 - 20 mg/dL | + + + + | CREATININE PLASMA | 0.48 (L) | 0.60 - 1.10 mg/dL | | (LAB) | | | + + + + | EGFR - | >60 | >60 mL/min | | UKRAINIAN | | | + + + + | EGFR NON | >60 | >60 mL/min | | -UKRAINIAN | | | + + + + | SODIUM, PLASMA (LAB) | 137 | 136 - 145 mmol/L | + + + + | POTASSIUM, PLASMA | 3.7 | 3.4 - 5.0 mmol/L | | (LAB) | | | + + + + | CHLORIDE, PLASMA | 103 | 97 - 108 mmol/L | | (LAB) | | | + + + + | TOTAL CO2, PLASMA | 28 | 21 - 32 mmol/L | | (LAB) | | | + + + + | CALCIUM, PLASMA | 7.6 (L) | 8.6 - 10.2 mg/dL | | (LAB) | | | + + + + | CALCIUM(ALB | 8.4 (L) | 8.6 - 10.2 mg/dL | | CORRECTED) | | | + + + + | BILIRUBIN TOTAL | 0.7 | 0.3 - 1.2 mg/dL | + + + + | TOTAL PROTEIN, | 6.0 (L) | 6.4 - 8.2 g/dL | | PLASMA (LAB) | | | + + + + | ALBUMIN, PLASMA | 3.0 (L) | 3.5 - 4.7 g/dL | | (LAB) | | | + + + + | ALK PHOS | 164 (H) | 42 - 98 U/L | + + + + | AST(SGOT) | 36 | <=41 U/L | + + + + | ALT (SGPT) | 47 | <=60 U/L | + + + + | ANION GAP | 6 | mmol/L | + + + + | ANION GAP(ALB | 8 | 4 - 11 mmol/L | | CORRECTED) | | | + + + + | POTASSIUM CMNT | No Hemo | | + + + + | BILI T CMNT | No Hemo | | + + + + | AST CMNT | No Hemo | | + + + + + + + | Specimen | Performing Laboratory | + + + | Blood | [facility], [address] [address] [facility] [address] | | | [place] [address] | + + + + + | Narrative | + + | Adult glucose reference range change effective 7-17. GFR is estimated using the | | MDRD equation recommended by the National Kidney Disease Education Program. | | Estimated GFR Interpretive Information: <60 mL/min/1.73 sq | | m Chronic Kidney Disease <15 mL/min/1.73 sq | | m Kidney Failure Estimated GFR greater that 60 mL/min/1.73 | | sq m is of limited clinical value. The MDRD equation is not valid in the following | | situations: - Patients under 18 years of age - Severe malnutrition or obesity - | | Vegetarian diet - Rapidly changing kidney function | + + PRODUCT - PLATELET PHERESIS LEUKOREDUCED (03/11/2017 1:17 AM) + + + + | Component | Value | Ref Range | + + + + | PRODUCT DESCRIPTION | PLATELETS PHERESIS, LEUKOCYTE REDUCED, | | | | IRRADIATED | | + + + + | PRODUCT UNIT # | [id number] | | + + + + | UNIT ABO | O | | + + + + | UNIT RH | POS | | + + + + | STATUS OF UNIT | Presumed Transfused | | + + + + | EXPIRATION DATE | [id number] | | + + + + | BLOOD TYPE BARCODE | 5100 | | + + + + | BLOOD PRODUCT CODE | [id number] | | + + + + + + + | Specimen | Performing Laboratory | + + + | | [facility], TRANSFUSION MEDICINE [address] | | | [place] [address] | + + + LDH TOTAL, PLASMA (03/10/2017 11:30 PM) + +---------+ + | Component | Value | Ref Range | + +---------+ + | LD TOTAL, PLASMA | 960 (H) | <=250 U/L | + +---------+ + + + + | Specimen | Performing Laboratory | + + + | Blood | [facility], [address] [facility] | | | [place] [address] | + + + CBC AND AUTO DIFF (03/10/2017 11:30 PM) + + + + | Component | Value | Ref Range | + + + + | WHITE CELL COUNT | <0.10 (L) | 3.50 - 10.80 K/cu mm | + + + + | RED CELL COUNT | 2.65 (L) | 4.00 - 5.20 M/cu mm | + + + + | HEMOGLOBIN | 8.3 (L) | 12.0 - 16.0 g/dL | + + + + | HEMATOCRIT | 23.4 (L) | 36.0 - 46.0 % | + + + + | MCV | 88.3 | 80.0 - 96.0 fL | + + + + | MCHC | 35.5 | 33.0 - 35.5 g/dL | + + + + | RDW SD | 40.9 | 35.1 - 46.3 fL | + + + + | PLATELET COUNT | 15 (L) | 150 - 400 K/cu mm | + + + + | MPV | 9.5 (L) | 9.7 - 12.3 fL | + + + + | NRBC% | 0.0 | 0.0 - 0.3 % | + + + + | NRBC# | 0.00 | 0.00 - 0.02 K/cu mm | + + + + | NEUTROPHIL % | Comment: WBC <300; differential not | 50.0 - 70.0 % | | | performed. | | + + + + | LYMPHOCYTE % | Comment: WBC <300; differential not | 18.0 - 42.0 % | | | performed. | | + + + + | MONOCYTE % | Comment: WBC <300; differential not | 3.5 - 9.0 % | | | performed. | | + + + + | EOS % | Comment: WBC <300; differential not | 1.0 - 3.0 % | | | performed. | | + + + + | BASO % | Comment: WBC <300; differential not | 0.0 - 2.0 % | | | performed. | | + + + + | IMMATURE | Comment: WBC <300; differential not | 0.0 - 0.6 % | | GRANULOCYTE% | performed. | | + + + + | NEUTROPHIL # | Comment: WBC <300; differential not | 1.80 - 7.70 K/cu mm | | | performed. | | + + + + | LYMPHOCYTE # | Comment: WBC <300; differential not | 1.00 - 4.80 K/cu mm | | | performed. | | + + + + | MONOCYTE # | Comment: WBC <300; differential not | 0.10 - 0.90 K/cu mm | | | performed. | | + + + + | EOS # | Comment: WBC <300; differential not | 0.00 - 0.50 K/cu mm | | | performed. | | + + + + | BASO # | Comment: WBC <300; differential not | 0.00 - 0.10 K/cu mm | | | performed. | | + + + + | IMMATURE | Comment: WBC <300; differential not | 0.00 - 0.03 K/cu mm | | GRANULOCYTE# | performed. | | + + + + + + + | Specimen | Performing Laboratory | + + + | Blood | [facility], [address] [place] [address] | | | [place] [address] | + + + PHOSPHORUS, PLASMA (03/10/2017 11:30 PM) + +---------+ + | Component | Value | Ref Range | + +---------+ + | PHOSPHORUS, PLASMA | 2.2 (L) | 2.4 - 4.7 mg/dL | | (LAB) | | | + +---------+ + + + + | Specimen | Performing Laboratory | + + + | Blood | [facility], [address] [place] [address] | | | [place] [address] | + + + COAGULOPATHY PANEL (INR,APTT,FIBRINOGEN) (03/10/2017 11:30 PM) + + + + | Component | Value | Ref Range | + + + + | INR | 1.11 | 0.90 - 1.20 INR | + + + + | APTT | 25.6 (L) | 26.0 - 36.0 seconds | + + + + | FIBRINOGEN LEVEL | 241 | 200 - 450 mg/dL | + + + + + + + | Specimen | Performing Laboratory | + + + | Blood | [facility], [address] [address] [facility] | | | [facility] [address] | + + + + + | Narrative | + + | INR Therapeutic ranges for full anticoagulation: INR for Venous | | Thromboembolism (2.0 - 3.0) INR INR for most patients with | | mech. valves (2.5 - 3.5) INR APTT Therapeutic | | Range: (75 - 120) sec Heparin levels | | of 0.35 - 0.7 U/mL | + + CBC, WITH DIFFERENTIAL (03/10/2017 11:30 PM) + + + | Specimen | Performing Laboratory | + + + | Blood | | + + + + + | Narrative | + + | The following orders were created for panel order CBC, WITH DIFFERENTIAL. | | Procedure | | Abnormality Status | | --------- | | ------ CBC AND AUTO | | DIFF[[id number]] Abnormal Final | | result Please view results for these tests on the | | individual orders. | + + MAGNESIUM, PLASMA (03/10/2017 11:30 PM) + +-------+ + | Component | Value | Ref Range | + +-------+ + | MAGNESIUM,PLASMA | 2.2 | 1.6 - 2.6 mg/dL | + +-------+ + + + + | Specimen | Performing Laboratory | + + + | Blood | [facility], [address] | | | [place] [address] | + + + + + | Narrative | + + | Reference range change effective 12/11/16. | + + COMPLETE METABOLIC SET (NA,K,CL,CO2,BUN,CREAT,GLUC,CA,AST,ALT,BILI TOTAL,ALK PHOS,ALB,PROT TOTAL) (03/10/2017 11:30 PM) + + + + | Component | Value | Ref Range | + + + + | GLUCOSE, PLASMA | 171 (H) | 70 - 99 mg/dL | | (LAB) | | | + + + + | BUN, PLASMA (LAB) | 19 | 6 - 20 mg/dL | + + + + | CREATININE PLASMA | 0.46 (L) | 0.60 - 1.10 mg/dL | | (LAB) | | | + + + + | EGFR - | >60 | >60 mL/min | | UKRAINIAN | | | + + + + | EGFR NON | >60 | >60 mL/min | | -UKRAINIAN | | | + + + + | SODIUM, PLASMA (LAB) | 138 | 136 - 145 mmol/L | + + + + | POTASSIUM, PLASMA | 3.5 | 3.4 - 5.0 mmol/L | | (LAB) | | | + + + + | CHLORIDE, PLASMA | 102 | 97 - 108 mmol/L | | (LAB) | | | + + + + | TOTAL CO2, PLASMA | 28 | 21 - 32 mmol/L | | (LAB) | | | + + + + | CALCIUM, PLASMA | 7.5 (L) | 8.6 - 10.2 mg/dL | | (LAB) | | | + + + + | CALCIUM(ALB | 8.4 (L) | 8.6 - 10.2 mg/dL | | CORRECTED) | | | + + + + | BILIRUBIN TOTAL | 0.8 | 0.3 - 1.2 mg/dL | + + + + | TOTAL PROTEIN, | 5.9 (L) | 6.4 - 8.2 g/dL | | PLASMA (LAB) | | | + + + + | ALBUMIN, PLASMA | 2.9 (L) | 3.5 - 4.7 g/dL | | (LAB) | | | + + + + | ALK PHOS | 177 (H) | 42 - 98 U/L | + + + + | AST(SGOT) | 44 (H) | <=41 U/L | + + + + | ALT (SGPT) | 47 | <=60 U/L | + + + + | ANION GAP | 8 | mmol/L | + + + + | ANION GAP(ALB | 10 | 4 - 11 mmol/L | | CORRECTED) | | | + + + + | POTASSIUM CMNT | No Hemo | | + + + + | BILI T CMNT | No Hemo | | + + + + | AST CMNT | No Hemo | | + + + + + + + | Specimen | Performing Laboratory | + + + | Blood | [facility], [address] [facility] | | | [place] [address] | + + + + + | Narrative | + + | Adult glucose reference range change effective 7-12-17. GFR is estimated using the | | MDRD equation recommended by the National Kidney Disease Education Program. | | Estimated GFR Interpretive Information: <60 mL/min/1.73 sq | | m Chronic Kidney Disease <15 mL/min/1.73 sq | | m Kidney Failure Estimated GFR greater that 60 mL/min/1.73 | | sq m is of limited clinical value. The MDRD equation is not valid in the following | | situations: - Patients under 18 years of age - Severe malnutrition or obesity - | | Vegetarian diet - Rapidly changing kidney function | + + VRE (FRANCISCO) BY PCR (03/10/2017 6:00 PM) + + + + | Component | Value | Ref Range | + + + + | VRE BY PCR | Negative for van A gene | Negative for van A | | | | gene | + + + + + + + | Specimen | Performing Laboratory | + + + | Swab - Rectum | [facility], [address] [facility] | | | [place] [address] | + + + PRODUCT - PLATELET PHERESIS LEUKOREDUCED (03/10/2017 12:10 AM) + + + + | Component | Value | Ref Range | + + + + | PRODUCT DESCRIPTION | APHERESIS | | | | PLATELETS,PAS,LEUKOREDUCED,IRRADIATED | | + + + + | PRODUCT UNIT # | [id number] | | + + + + | UNIT ABO | O | | + + + + | UNIT RH | POS | | + + + + | STATUS OF UNIT | Presumed Transfused | | + + + + | EXPIRATION DATE | [id number] | | + + + + | BLOOD TYPE BARCODE | 5100 | | + + + + | BLOOD PRODUCT CODE | [id number] | | + + + + + + + | Specimen | Performing Laboratory | + + + | | [facility], TRANSFUSION MEDICINE [address] [facility] | | | [place] [address] | + + + PRODUCT - RED CELLS LEUKOREDUCED (03/10/2017 12:10 AM) + + + + | Component | Value | Ref Range | + + + + | PRODUCT DESCRIPTION | -1 RED BLOOD CELLS ADENINE-SALINE ADDED | | | | LEUKOCYT | | + + + + | PRODUCT UNIT # | [id number] | | + + + + | UNIT ABO | O | | + + + + | UNIT RH | POS | | + + + + | STATUS OF UNIT | Presumed Transfused | | + + + + | EXPIRATION DATE | [id number] | | + + + + | BLOOD TYPE BARCODE | 5100 | | + + + + | BLOOD PRODUCT CODE | [id number] | | + + + + + + + | Specimen | Performing Laboratory | + + + | | [facility], TRANSFUSION MEDICINE [address] [facility] | | | [place] [address] | + + + ANTIBODY SCREEN (03/10/2017 12:06 AM) + + + + | Component | Value | Ref Range | + + + + | Antibody Screen | Negative | | + + + + + + + | Specimen | Performing Laboratory | + + + | Blood | [facility], TRANSFUSION MEDICINE [address] | | | [facility] [place] [address] | + + + ABO & RH TYPE (03/10/2017 12:06 AM) + + + + | Component | Value | Ref Range | + + + + | ABO Group | O | | + + + + | Rh Type | Positive | | + + + + + + + | Specimen | Performing Laboratory | + + + | Blood | [facility], TRANSFUSION MEDICINE [address] | | | [place] [address] | + + + TYPE AND SCREEN (03/10/2017 12:06 AM) + + + | Specimen | Performing Laboratory | + + + | Blood | | + + + + + | Narrative | + + | The following orders were created for panel order TYPE AND SCREEN. | | Procedure | | Abnormality Status | | --------- | | ------ ABO & RH | | TYPE[[id number]] F | | inal result ANTIBODY | | SCREEN[[id number]] Fin | | al result Please view results for these tests on the | | individual orders. | + + CBC AND AUTO DIFF (03/09/2017 11:30 PM) + + + + | Component | Value | Ref Range | + + + + | WHITE CELL COUNT | <0.10 (L) | 3.50 - 10.80 K/cu mm | + + + + | RED CELL COUNT | 2.25 (L) | 4.00 - 5.20 M/cu mm | + + + + | HEMOGLOBIN | 7.1 (L) | 12.0 - 16.0 g/dL | + + + + | HEMATOCRIT | 20.6 (L) | 36.0 - 46.0 % | + + + + | MCV | 91.6 | 80.0 - 96.0 fL | + + + + | MCHC | 34.5 | 33.0 - 35.5 g/dL | + + + + | RDW SD | 41.1 | 35.1 - 46.3 fL | + + + + | PLATELET COUNT | 16 (L) | 150 - 400 K/cu mm | + + + + | MPV | 8.7 (L) | 9.7 - 12.3 fL | + + + + | NRBC% | 0.0 | 0.0 - 0.3 % | + + + + | NRBC# | 0.00 | 0.00 - 0.02 K/cu mm | + + + + | NEUTROPHIL % | Comment: WBC <300; differential not | 50.0 - 70.0 % | | | performed. | | + + + + | LYMPHOCYTE % | Comment: WBC <300; differential not | 18.0 - 42.0 % | | | performed. | | + + + + | MONOCYTE % | Comment: WBC <300; differential not | 3.5 - 9.0 % | | | performed. | | + + + + | EOS % | Comment: WBC <300; differential not | 1.0 - 3.0 % | | | performed. | | + + + + | BASO % | Comment: WBC <300; differential not | 0.0 - 2.0 % | | | performed. | | + + + + | IMMATURE | Comment: WBC <300; differential not | 0.0 - 0.6 % | | GRANULOCYTE% | performed. | | + + + + | NEUTROPHIL # | Comment: WBC <300; differential not | 1.80 - 7.70 K/cu mm | | | performed. | | + + + + | LYMPHOCYTE # | Comment: WBC <300; differential not | 1.00 - 4.80 K/cu mm | | | performed. | | + + + + | MONOCYTE # | Comment: WBC <300; differential not | 0.10 - 0.90 K/cu mm | | | performed. | | + + + + | EOS # | Comment: WBC <300; differential not | 0.00 - 0.50 K/cu mm | | | performed. | | + + + + | BASO # | Comment: WBC <300; differential not | 0.00 - 0.10 K/cu mm | | | performed. | | + + + + | IMMATURE | Comment: WBC <300; differential not | 0.00 - 0.03 K/cu mm | | GRANULOCYTE# | performed. | | + + + + + + + | Specimen | Performing Laboratory | + + + | Blood | [facility], [address] [facility] | | | [place] [address] | + + + PHOSPHORUS, PLASMA (03/09/2017 11:30 PM) + +-------+ + | Component | Value | Ref Range | + +-------+ + | PHOSPHORUS, PLASMA | 2.8 | 2.4 - 4.7 mg/dL | | (LAB) | | | + +-------+ + + + + | Specimen | Performing Laboratory | + + + | Blood | [facility], [address] [place] [address] | | | [place] [address] | + + + COAGULOPATHY PANEL (INR,APTT,FIBRINOGEN) (03/09/2017 11:30 PM) + + + + | Component | Value | Ref Range | + + + + | INR | 1.23 (H) | 0.90 - 1.20 INR | + + + + | APTT | 25.1 (L) | 26.0 - 36.0 seconds | + + + + | FIBRINOGEN LEVEL | 175 (L) | 200 - 450 mg/dL | + + + + + + + | Specimen | Performing Laboratory | + + + | Blood | [facility], [address] [facility] [place] | | | [place] [address] | + + + + + | Narrative | + + | INR Therapeutic ranges for full anticoagulation: INR for Venous | | Thromboembolism (2.0 - 3.0) INR INR for most patients with | | mech. valves (2.5 - 3.5) INR APTT Therapeutic | | Range: (75 - 120) sec Heparin levels | | of 0.35 - 0.7 U/mL | + + CBC, WITH DIFFERENTIAL (03/09/2017 11:30 PM) + + + | Specimen | Performing Laboratory | + + + | Blood | | + + + + + | Narrative | + + | The following orders were created for panel order CBC, WITH DIFFERENTIAL. | | Procedure | | Abnormality Status | | --------- | | ------ CBC AND AUTO | | DIFF[[id number]] Abnormal Final | | result Please view results for these tests on the | | individual orders. | + + MAGNESIUM, PLASMA (03/09/2017 11:30 PM) + +-------+ + | Component | Value | Ref Range | + +-------+ + | MAGNESIUM,PLASMA | 2.3 | 1.6 - 2.6 mg/dL | + +-------+ + + + + | Specimen | Performing Laboratory | + + + | Blood | [facility], [address] [facility] | | | [place] [address] | + + + + + | Narrative | + + | Reference range change effective 12/11/16. | + + COMPLETE METABOLIC SET (NA,K,CL,CO2,BUN,CREAT,GLUC,CA,AST,ALT,BILI TOTAL,ALK PHOS,ALB,PROT TOTAL) (03/09/2017 11:30 PM) + + + + | Component | Value | Ref Range | + + + + | GLUCOSE, PLASMA | 149 (H) | 70 - 99 mg/dL | | (LAB) | | | + + + + | BUN, PLASMA (LAB) | 19 | 6 - 20 mg/dL | + + + + | CREATININE PLASMA | 0.44 (L) | 0.60 - 1.10 mg/dL | | (LAB) | | | + + + + | EGFR - | >60 | >60 mL/min | | UKRAINIAN | | | + + + + | EGFR NON | >60 | >60 mL/min | | -UKRAINIAN | | | + + + + | SODIUM, PLASMA (LAB) | 140 | 136 - 145 mmol/L | + + + + | POTASSIUM, PLASMA | 4.3 | 3.4 - 5.0 mmol/L | | (LAB) | | | + + + + | CHLORIDE, PLASMA | 105 | 97 - 108 mmol/L | | (LAB) | | | + + + + | TOTAL CO2, PLASMA | 25 | 21 - 32 mmol/L | | (LAB) | | | + + + + | CALCIUM, PLASMA | 7.8 (L) | 8.6 - 10.2 mg/dL | | (LAB) | | | + + + + | CALCIUM(ALB | 8.7 | 8.6 - 10.2 mg/dL | | CORRECTED) | | | + + + + | BILIRUBIN TOTAL | 0.9 | 0.3 - 1.2 mg/dL | + + + + | TOTAL PROTEIN, | 5.8 (L) | 6.4 - 8.2 g/dL | | PLASMA (LAB) | | | + + + + | ALBUMIN, PLASMA | 2.9 (L) | 3.5 - 4.7 g/dL | | (LAB) | | | + + + + | ALK PHOS | 184 (H) | 42 - 98 U/L | + + + + | AST(SGOT) | 43 (H) | <=41 U/L | + + + + | ALT (SGPT) | 45 | <=60 U/L | + + + + | ANION GAP | 10 | mmol/L | + + + + | ANION GAP(ALB | 12 (H) | 4 - 11 mmol/L | | CORRECTED) | | | + + + + | POTASSIUM CMNT | No Hemo | | + + + + | BILI T CMNT | No Hemo | | + + + + | AST CMNT | No Hemo | | + + + + + + + | Specimen | Performing Laboratory | + + + | Blood | [facility], [facility] [address] [facility] | | | [place] [address] | + + + + + | Narrative | + + | Adult glucose reference range change effective 7-12-17. GFR is estimated using the | | MDRD equation recommended by the National Kidney Disease Education Program. | | Estimated GFR Interpretive Information: <60 mL/min/1.73 sq | | m Chronic Kidney Disease <15 mL/min/1.73 sq | | m Kidney Failure Estimated GFR greater that 60 mL/min/1.73 | | sq m is of limited clinical value. The MDRD equation is not valid in the following | | situations: - Patients under 18 years of age - Severe malnutrition or obesity - | | Vegetarian diet - Rapidly changing kidney function | + + VASC LAB VENOUS DUPLEX UPPER EXTREMITY LT (03/09/2017 11:52 AM) + + + | Specimen | Performing Laboratory | + + + | | [facility] | + + + + + | Narrative | + + | Left: The duplex scanner was used to examine the internal jugular, subclavian, | | axillary, brachial, cephalic and basilic veins on the left side. Left: The | | distal brachial, basilic and cephalic veins were not visualized due to the presence of a | | PICC line and overlying bandages. All other veins are patent with normal flow and | | responses to augmentation and compression maneuvers and there is no thrombus noted. The | | right subclavian vein has normal flow. Conclusions: A venous examination of | | the left upper extremity with no venous thrombosis detected. The right arm was not | | examined. I have personally reviewed the images and, if necessary, edited | | the report. I agree with the report as now presented. | + + + + | Procedure Note | + + | Service Account, Third Age In Interface - 03/09/2017 12:07 PM PST Left: The duplex | | scanner was used to examine the internal jugular, subclavian, axillary, brachial, | | cephalic and basilic veins on the left side. Left: The distal brachial, basilic and | | cephalic veins were not visualized due to the presence of a PICC line and overlying | | bandages. All other veins are patent with normal flow and responses to augmentation and | | compression maneuvers and there is no thrombus noted.The right subclavian vein has | | normal flow. Conclusions: A venous examination of the left upper extremity with no | | venous thrombosis detected. The right arm was not examined.I have personally reviewed | | the images and, if necessary, edited the report. I agree with the report as now | | presented. | | | | | |I have personally reviewed the images and, if necessary, edited the report. I agree with t he report as now presented. | + + PRODUCT - PLATELET PHERESIS LEUKOREDUCED (03/09/2017 1:11 AM) + + + + | Component | Value | Ref Range | + + + + | PRODUCT DESCRIPTION | PLATELETS PHERESIS, LEUKOCYTES | | | | REDUCED,IRRADIATED | | + + + + | PRODUCT UNIT # | [id number] | | + + + + | UNIT ABO | O | | + + + + | UNIT RH | POS | | + + + + | STATUS OF UNIT | Presumed Transfused | | + + + + | EXPIRATION DATE | [id number] | | + + + + | BLOOD TYPE BARCODE | 5100 | | + + + + | BLOOD PRODUCT CODE | [id number] | | + + + + + + + | Specimen | Performing Laboratory | + + + | | [facility], [facility] [address] [place] [address] | | | [place] [address] | + + + CBC AND AUTO DIFF (03/08/2017 11:56 PM) + + + + | Component | Value | Ref Range | + + + + | WHITE CELL COUNT | <0.10 (L) | 3.50 - 10.80 K/cu mm | + + + + | RED CELL COUNT | 2.36 (L) | 4.00 - 5.20 M/cu mm | + + + + | HEMOGLOBIN | 7.6 (L) | 12.0 - 16.0 g/dL | + + + + | HEMATOCRIT | 21.6 (L) | 36.0 - 46.0 % | + + + + | MCV | 91.5 | 80.0 - 96.0 fL | + + + + | MCHC | 35.2 | 33.0 - 35.5 g/dL | + + + + | RDW SD | 42.8 | 35.1 - 46.3 fL | + + + + | PLATELET COUNT | 20 (L) | 150 - 400 K/cu mm | + + + + | MPV | 9.9 | 9.7 - 12.3 fL | + + + + | NRBC% | 0.0 | 0.0 - 0.3 % | + + + + | NRBC# | 0.00 | 0.00 - 0.02 K/cu mm | + + + + | NEUTROPHIL % | Comment: WBC <300; differential not | 50.0 - 70.0 % | | | performed. | | + + + + | LYMPHOCYTE % | Comment: WBC <300; differential not | 18.0 - 42.0 % | | | performed. | | + + + + | MONOCYTE % | Comment: WBC <300; differential not | 3.5 - 9.0 % | | | performed. | | + + + + | EOS % | Comment: WBC <300; differential not | 1.0 - 3.0 % | | | performed. | | + + + + | BASO % | Comment: WBC <300; differential not | 0.0 - 2.0 % | | | performed. | | + + + + | IMMATURE | Comment: WBC <300; differential not | 0.0 - 0.6 % | | GRANULOCYTE% | performed. | | + + + + | NEUTROPHIL # | Comment: WBC <300; differential not | 1.80 - 7.70 K/cu mm | | | performed. | | + + + + | LYMPHOCYTE # | Comment: WBC <300; differential not | 1.00 - 4.80 K/cu mm | | | performed. | | + + + + | MONOCYTE # | Comment: WBC <300; differential not | 0.10 - 0.90 K/cu mm | | | performed. | | + + + + | EOS # | Comment: WBC <300; differential not | 0.00 - 0.50 K/cu mm | | | performed. | | + + + + | BASO # | Comment: WBC <300; differential not | 0.00 - 0.10 K/cu mm | | | performed. | | + + + + | IMMATURE | Comment: WBC <300; differential not | 0.00 - 0.03 K/cu mm | | GRANULOCYTE# | performed. | | + + + + + + + | Specimen | Performing Laboratory | + + + | Blood | [facility], [facility] [address] | | | [place] [address] | + + + PHOSPHORUS, PLASMA (03/08/2017 11:56 PM) + +-------+ + | Component | Value | Ref Range | + +-------+ + | PHOSPHORUS, PLASMA | 2.8 | 2.4 - 4.7 mg/dL | | (LAB) | | | + +-------+ + + + + | Specimen | Performing Laboratory | + + + | Blood | [facility], [facility] [address] | | | [place] [address] | + + + COAGULOPATHY PANEL (INR,APTT,FIBRINOGEN) (03/08/2017 11:56 PM) + +---------+ + | Component | Value | Ref Range | + +---------+ + | INR | 1.19 | 0.90 - 1.20 INR | + +---------+ + | APTT | 26.2 | 26.0 - 36.0 seconds | + +---------+ + | FIBRINOGEN LEVEL | 167 (L) | 200 - 450 mg/dL | + +---------+ + + + + | Specimen | Performing Laboratory | + + + | Blood | [facility], [address]ORE [address] | | | [place] [address] | + + + + + | Narrative | + + | INR Therapeutic ranges for full anticoagulation: INR for Venous | | Thromboembolism (2.0 - 3.0) INR INR for most patients with | | mech. valves (2.5 - 3.5) INR APTT Therapeutic | | Range: (75 - 120) sec Heparin levels | | of 0.35 - 0.7 U/mL | + + CBC, WITH DIFFERENTIAL (03/08/2017 11:56 PM) + + + | Specimen | Performing Laboratory | + + + | Blood | | + + + + + | Narrative | + + | The following orders were created for panel order CBC, WITH DIFFERENTIAL. | | Procedure | | Abnormality Status | | --------- | | ------ CBC AND AUTO | | DIFF[[id number]] Abnormal Final | | result Please view results for these tests on the | | individual orders. | + + MAGNESIUM, PLASMA (03/08/2017 11:56 PM) + +-------+ + | Component | Value | Ref Range | + +-------+ + | MAGNESIUM,PLASMA | 2.4 | 1.6 - 2.6 mg/dL | + +-------+ + + + + | Specimen | Performing Laboratory | + + + | Blood | [facility], [address] [place] [address] [place] | | | [place] [address] | + + + + + | Narrative | + + | Reference range change effective 12/11/16. | + + COMPLETE METABOLIC SET (NA,K,CL,CO2,BUN,CREAT,GLUC,CA,AST,ALT,BILI TOTAL,ALK PHOS,ALB,PROT TOTAL) (03/08/2017 11:56 PM) + + + + | Component | Value | Ref Range | + + + + | GLUCOSE, PLASMA | 143 (H) | 70 - 99 mg/dL | | (LAB) | | | + + + + | BUN, PLASMA (LAB) | 21 (H) | 6 - 20 mg/dL | + + + + | CREATININE PLASMA | 0.43 (L) | 0.60 - 1.10 mg/dL | | (LAB) | | | + + + + | EGFR - | >60 | >60 mL/min | | UKRAINIAN | | | + + + + | EGFR NON | >60 | >60 mL/min | | -UKRAINIAN | | | + + + + | SODIUM, PLASMA (LAB) | 141 | 136 - 145 mmol/L | + + + + | POTASSIUM, PLASMA | 4.1 | 3.4 - 5.0 mmol/L | | (LAB) | | | + + + + | CHLORIDE, PLASMA | 106 | 97 - 108 mmol/L | | (LAB) | | | + + + + | TOTAL CO2, PLASMA | 26 | 21 - 32 mmol/L | | (LAB) | | | + + + + | CALCIUM, PLASMA | 7.8 (L) | 8.6 - 10.2 mg/dL | | (LAB) | | | + + + + | CALCIUM(ALB | 8.8 | 8.6 - 10.2 mg/dL | | CORRECTED) | | | + + + + | BILIRUBIN TOTAL | 1.0 | 0.3 - 1.2 mg/dL | + + + + | TOTAL PROTEIN, | 5.9 (L) | 6.4 - 8.2 g/dL | | PLASMA (LAB) | | | + + + + | ALBUMIN, PLASMA | 2.8 (L) | 3.5 - 4.7 g/dL | | (LAB) | | | + + + + | ALK PHOS | 207 (H) | 42 - 98 U/L | + + + + | AST(SGOT) | 51 (H) | <=41 U/L | + + + + | ALT (SGPT) | 47 | <=60 U/L | + + + + | ANION GAP | 9 | mmol/L | + + + + | ANION GAP(ALB | 12 (H) | 4 - 11 mmol/L | | CORRECTED) | | | + + + + | POTASSIUM CMNT | No Hemo | | + + + + | BILI T CMNT | No Hemo | | + + + + | AST CMNT | No Hemo | | + + + + + + + | Specimen | Performing Laboratory | + + + | Blood | [facility], [address] [place] [address] | | | [place] [address] | + + + + + | Narrative | + + | Adult glucose reference range change effective 7-12-17. GFR is estimated using the | | MDRD equation recommended by the National Kidney Disease Education Program. | | Estimated GFR Interpretive Information: <60 mL/min/1.73 sq | | m Chronic Kidney Disease <15 mL/min/1.73 sq | | m Kidney Failure Estimated GFR greater that 60 mL/min/1.73 | | sq m is of limited clinical value. The MDRD equation is not valid in the following | | situations: - Patients under 18 years of age - Severe malnutrition or obesity - | | Vegetarian diet - Rapidly changing kidney function | + + PRODUCT - PLATELET PHERESIS LEUKOREDUCED (03/08/2017 1:15 AM) + + + + | Component | Value | Ref Range | + + + + | PRODUCT DESCRIPTION | PLATELETS PHERESIS, LEUKOCYTE REDUCED, | | | | IRRADIATED | | + + + + | PRODUCT UNIT # | [id number] | | + + + + | UNIT ABO | O | | + + + + | UNIT RH | POS | | + + + + | STATUS OF UNIT | Presumed Transfused | | + + + + | EXPIRATION DATE | [id number] | | + + + + | BLOOD TYPE BARCODE | 5100 | | + + + + | BLOOD PRODUCT CODE | [id number] | | + + + + + + + | Specimen | Performing Laboratory | + + + | | [facility], [facility] [address] [facility] | | | [place] [address] | + + + PRODUCT - RED CELLS LEUKOREDUCED (03/08/2017 1:14 AM) + + + + | Component | Value | Ref Range | + + + + | PRODUCT DESCRIPTION | -1 RED BLOOD CELLS ADENINE-SALINE ADDED | | | | LEUKOCYT | | + + + + | PRODUCT UNIT # | [id number] | | + + + + | UNIT ABO | O | | + + + + | UNIT RH | POS | | + + + + | STATUS OF UNIT | Presumed Transfused | | + + + + | EXPIRATION DATE | [id number] | | + + + + | BLOOD TYPE BARCODE | 5100 | | + + + + | BLOOD PRODUCT CODE | [id number] | | + + + + + + + | Specimen | Performing Laboratory | + + + | | [facility], [facility] [address] [facility] | | | [place] [address] | + + + CBC AND AUTO DIFF (03/07/2017 11:15 PM) + + + + | Component | Value | Ref Range | + + + + | WHITE CELL COUNT | 0.16 (L) | 3.50 - 10.80 K/cu mm | + + + + | RED CELL COUNT | 2.15 (L) | 4.00 - 5.20 M/cu mm | + + + + | HEMOGLOBIN | 6.8 (L) | 12.0 - 16.0 g/dL | + + + + | HEMATOCRIT | 19.8 (L) | 36.0 - 46.0 % | + + + + | MCV | 92.1 | 80.0 - 96.0 fL | + + + + | MCHC | 34.3 | 33.0 - 35.5 g/dL | + + + + | RDW SD | 43.2 | 35.1 - 46.3 fL | + + + + | PLATELET COUNT | 17 (L) | 150 - 400 K/cu mm | + + + + | MPV | 10.3 | 9.7 - 12.3 fL | + + + + | NRBC% | 0.0 | 0.0 - 0.3 % | + + + + | NRBC# | 0.00 | 0.00 - 0.02 K/cu mm | + + + + | NEUTROPHIL % | Comment: WBC <300; differential not | 50.0 - 70.0 % | | | performed. | | + + + + | LYMPHOCYTE % | Comment: WBC <300; differential not | 18.0 - 42.0 % | | | performed. | | + + + + | MONOCYTE % | Comment: WBC <300; differential not | 3.5 - 9.0 % | | | performed. | | + + + + | EOS % | Comment: WBC <300; differential not | 1.0 - 3.0 % | | | performed. | | + + + + | BASO % | Comment: WBC <300; differential not | 0.0 - 2.0 % | | | performed. | | + + + + | IMMATURE | Comment: WBC <300; differential not | 0.0 - 0.6 % | | GRANULOCYTE% | performed. | | + + + + | NEUTROPHIL # | Comment: WBC <300; differential not | 1.80 - 7.70 K/cu mm | | | performed. | | + + + + | LYMPHOCYTE # | Comment: WBC <300; differential not | 1.00 - 4.80 K/cu mm | | | performed. | | + + + + | MONOCYTE # | Comment: WBC <300; differential not | 0.10 - 0.90 K/cu mm | | | performed. | | + + + + | EOS # | Comment: WBC <300; differential not | 0.00 - 0.50 K/cu mm | | | performed. | | + + + + | BASO # | Comment: WBC <300; differential not | 0.00 - 0.10 K/cu mm | | | performed. | | + + + + | IMMATURE | Comment: WBC <300; differential not | 0.00 - 0.03 K/cu mm | | GRANULOCYTE# | performed. | | + + + + + + + | Specimen | Performing Laboratory | + + + | Blood | [facility], [facility] [address] [facility] [address] | | | [place] [address] | + + + + + | Narrative | + + | Immature Granulocytes (IG) include metamyelocytes, myelocytes and | | promyelocytes. Bands are not included in the IG count. Bands are included in the | | neutrophil count. | + + PHOSPHORUS, PLASMA (03/07/2017 11:15 PM) + +-------+ + | Component | Value | Ref Range | + +-------+ + | PHOSPHORUS, PLASMA | 3.3 | 2.4 - 4.7 mg/dL | | (LAB) | | | + +-------+ + + + + | Specimen | Performing Laboratory | + + + | Blood | [facility], [facility] [address] [facility] | | | [place] [address] | + + + COAGULOPATHY PANEL (INR,APTT,FIBRINOGEN) (03/07/2017 11:15 PM) + + + + | Component | Value | Ref Range | + + + + | INR | 1.24 (H) | 0.90 - 1.20 INR | + + + + | APTT | 28.3 | 26.0 - 36.0 seconds | + + + + | FIBRINOGEN LEVEL | 190 (L) | 200 - 450 mg/dL | + + + + + + + | Specimen | Performing Laboratory | + + + | Blood | [facility], [address] [address] [facility] | | | [place] [address] | + + + + + | Narrative | + + | INR Therapeutic ranges for full anticoagulation: INR for Venous | | Thromboembolism (2.0 - 3.0) INR INR for most patients with | | mech. valves (2.5 - 3.5) INR APTT Therapeutic | | Range: (75 - 120) sec Heparin levels | | of 0.35 - 0.7 U/mL | + + CBC, WITH DIFFERENTIAL (03/07/2017 11:15 PM) + + + | Specimen | Performing Laboratory | + + + | Blood | | + + + + + | Narrative | + + | The following orders were created for panel order CBC, WITH DIFFERENTIAL. | | Procedure | | Abnormality Status | | --------- | | ------ CBC AND AUTO | | DIFF[[id number]] Abnormal Final | | result Please view results for these tests on the | | individual orders. | + + MAGNESIUM, PLASMA (03/07/2017 11:15 PM) + +-------+ + | Component | Value | Ref Range | + +-------+ + | MAGNESIUM,PLASMA | 2.6 | 1.6 - 2.6 mg/dL | + +-------+ + + + + | Specimen | Performing Laboratory | + + + | Blood | [facility], [facility] [address] [facility] | | | [place] [address] | + + + + + | Narrative | + + | Reference range change effective 12/11/16. | + + COMPLETE METABOLIC SET (NA,K,CL,CO2,BUN,CREAT,GLUC,CA,AST,ALT,BILI TOTAL,ALK PHOS,ALB,PROT TOTAL) (03/07/2017 11:15 PM) + + + + | Component | Value | Ref Range | + + + + | GLUCOSE, PLASMA | 166 (H) | 70 - 99 mg/dL | | (LAB) | | | + + + + | BUN, PLASMA (LAB) | 22 (H) | 6 - 20 mg/dL | + + + + | CREATININE PLASMA | 0.43 (L) | 0.60 - 1.10 mg/dL | | (LAB) | | | + + + + | EGFR - | >60 | >60 mL/min | | UKRAINIAN | | | + + + + | EGFR NON | >60 | >60 mL/min | | -UKRAINIAN | | | + + + + | SODIUM, PLASMA (LAB) | 140 | 136 - 145 mmol/L | + + + + | POTASSIUM, PLASMA | 4.1 | 3.4 - 5.0 mmol/L | | (LAB) | | | + + + + | CHLORIDE, PLASMA | 107 | 97 - 108 mmol/L | | (LAB) | | | + + + + | TOTAL CO2, PLASMA | 26 | 21 - 32 mmol/L | | (LAB) | | | + + + + | CALCIUM, PLASMA | 7.4 (L) | 8.6 - 10.2 mg/dL | | (LAB) | | | + + + + | CALCIUM(ALB | 8.5 (L) | 8.6 - 10.2 mg/dL | | CORRECTED) | | | + + + + | BILIRUBIN TOTAL | 0.7 | 0.3 - 1.2 mg/dL | + + + + | TOTAL PROTEIN, | 5.5 (L) | 6.4 - 8.2 g/dL | | PLASMA (LAB) | | | + + + + | ALBUMIN, PLASMA | 2.6 (L) | 3.5 - 4.7 g/dL | | (LAB) | | | + + + + | ALK PHOS | 221 (H) | 42 - 98 U/L | + + + + | AST(SGOT) | 42 (H) | <=41 U/L | + + + + | ALT (SGPT) | 38 | <=60 U/L | + + + + | ANION GAP | 7 | mmol/L | + + + + | ANION GAP(ALB | 10 | 4 - 11 mmol/L | | CORRECTED) | | | + + + + | POTASSIUM CMNT | No Hemo | | + + + + | BILI T CMNT | No Hemo | | + + + + | AST CMNT | No Hemo | | + + + + + + + | Specimen | Performing Laboratory | + + + | Blood | [facility], [facility] [address] [facility] | | | [place] [address] | + + + + + | Narrative | + + | Adult glucose reference range change effective 7-12-17. GFR is estimated using the | | MDRD equation recommended by the National Kidney Disease Education Program. | | Estimated GFR Interpretive Information: <60 mL/min/1.73 sq | | m Chronic Kidney Disease <15 mL/min/1.73 sq | | m Kidney Failure Estimated GFR greater that 60 mL/min/1.73 | | sq m is of limited clinical value. The MDRD equation is not valid in the following | | situations: - Patients under 18 years of age - Severe malnutrition or obesity - | | Vegetarian diet - Rapidly changing kidney function | + + CBC (HEMOGRAM) ONLY (03/07/2017 6:00 AM) + + + + | Component | Value | Ref Range | + + + + | WHITE CELL COUNT | 0.36 (L) | 3.50 - 10.80 K/cu mm | + + + + | RED CELL COUNT | 2.34 (L) | 4.00 - 5.20 M/cu mm | + + + + | HEMOGLOBIN | 7.3 (L) | 12.0 - 16.0 g/dL | + + + + | HEMATOCRIT | 22.4 (L) | 36.0 - 46.0 % | + + + + | MCV | 95.7 | 80.0 - 96.0 fL | + + + + | MCHC | 32.6 | 33.0 - 35.5 g/dL | + + + + | RDW SD | 46.2 | 35.1 - 46.3 fL | + + + + | PLATELET COUNT | 16 (L) | 150 - 400 K/cu mm | + + + + | MPV | 9.8 | 9.7 - 12.3 fL | + + + + | NRBC% | 0.0 | 0.0 - 0.3 % | + + + + | NRBC# | 0.00 | 0.00 - 0.02 K/cu mm | + + + + + + + | Specimen | Performing Laboratory | + + + | Blood | [facility], [facility] [address] [facility] | | | [place] [address] | + + + LDH TOTAL, PLASMA (03/07/2017 6:00 AM) + + + + | Component | Value | Ref Range | + + + + | LD TOTAL, PLASMA | 2,266 (H) | <=250 U/L | + + + + | LD CMNT | No Hemo | | + + + + + + + | Specimen | Performing Laboratory | + + + | Blood | [facility], [facility] [address] | | | [place] [address] | + + + BASIC METABOLIC SET (NA, K, CL, TCO2, BUN, CR, GLU, CA) (03/07/2017 6:00 AM) + + + + | Component | Value | Ref Range | + + + + | GLUCOSE, PLASMA | 171 (H) | 70 - 99 mg/dL | | (LAB) | | | + + + + | BUN, PLASMA (LAB) | 20 | 6 - 20 mg/dL | + + + + | CREATININE PLASMA | 0.54 (L) | 0.60 - 1.10 mg/dL | | (LAB) | | | + + + + | EGFR - | >60 | >60 mL/min | | UKRAINIAN | | | + + + + | EGFR NON | >60 | >60 mL/min | | -UKRAINIAN | | | + + + + | SODIUM, PLASMA (LAB) | 142 | 136 - 145 mmol/L | + + + + | POTASSIUM, PLASMA | 4.1 | 3.4 - 5.0 mmol/L | | (LAB) | | | + + + + | CHLORIDE, PLASMA | 109 (H) | 97 - 108 mmol/L | | (LAB) | | | + + + + | TOTAL CO2, PLASMA | 25 | 21 - 32 mmol/L | | (LAB) | | | + + + + | CALCIUM, PLASMA | 7.6 (L) | 8.6 - 10.2 mg/dL | | (LAB) | | | + + + + | ANION GAP | 8 | mmol/L | + + + + | POTASSIUM CMNT | No Hemo | | + + + + + + + | Specimen | Performing Laboratory | + + + | Blood | [facility], [facility] [address] [facility] | | | [place] [address] | + + + + + | Narrative | + + | Adult glucose reference range change effective 7-12-17. GFR is estimated using the | | MDRD equation recommended by the National Kidney Disease Education Program. | | Estimated GFR Interpretive Information: <60 mL/min/1.73 sq | | m Chronic Kidney Disease <15 mL/min/1.73 sq | | m Kidney Failure Estimated GFR greater that 60 mL/min/1.73 | | sq m is of limited clinical value. The MDRD equation is not valid in the following | | situations: - Patients under 18 years of age - Severe malnutrition or obesity - | | Vegetarian diet - Rapidly changing kidney function | + + URIC ACID, PLASMA (03/07/2017 6:00 AM) + +-------+ + | Component | Value | Ref Range | + +-------+ + | URIC ACID, PLASMA | 4.4 | 2.5 - 6.2 mg/dL | | (LAB) | | | + +-------+ + + + + | Specimen | Performing Laboratory | + + + | Blood | [facility], CORE [address] | | | [place] [address] | + + + PHOSPHORUS, PLASMA (03/07/2017 6:00 AM) + +-------+ + | Component | Value | Ref Range | + +-------+ + | PHOSPHORUS, PLASMA | 4.0 | 2.4 - 4.7 mg/dL | | (LAB) | | | + +-------+ + + + + | Specimen | Performing Laboratory | + + + | Blood | [facility], [facility] [address] | | | [place] [address] | + + + CBC ONLY (03/07/2017 6:00 AM) + + + | Specimen | Performing Laboratory | + + + | Blood | | + + + + + | Narrative | + + | The following orders were created for panel order CBC ONLY. | | Procedure | | Abnormality Status | | --------- | | ------ CBC (HEMOGRAM) | | ONLY[[id number]] Abnormal Final | | result Please view results for these tests on the | | individual orders. | + + COAGULOPATHY PANEL (INR,APTT,FIBRINOGEN) (03/07/2017 6:00 AM) + + + + | Component | Value | Ref Range | + + + + | INR | 1.26 (H) | 0.90 - 1.20 INR | + + + + | APTT | 35.1 | 26.0 - 36.0 seconds | + + + + | FIBRINOGEN LEVEL | 239 | 200 - 450 mg/dL | + + + + + + + | Specimen | Performing Laboratory | + + + | Blood | [facility], [address] [facility] | | | [place] [address] | + + + + + | Narrative | + + | INR Therapeutic ranges for full anticoagulation: INR for Venous | | Thromboembolism (2.0 - 3.0) INR INR for most patients with | | mech. valves (2.5 - 3.5) INR APTT Therapeutic | | Range: (75 - 120) sec Heparin levels | | of 0.35 - 0.7 U/mL | + + PRODUCT - PLATELET PHERESIS LEUKOREDUCED (03/06/2017 11:45 PM) + + + + | Component | Value | Ref Range | + + + + | PRODUCT DESCRIPTION | PLATELETS PHERESIS, LEUKOCYTE REDUCED, | | | | IRRADIATED | | + + + + | PRODUCT UNIT # | [id number] | | + + + + | UNIT ABO | O | | + + + + | UNIT RH | POS | | + + + + | STATUS OF UNIT | Presumed Transfused | | + + + + | EXPIRATION DATE | [id number] | | + + + + | BLOOD TYPE BARCODE | 5100 | | + + + + | BLOOD PRODUCT CODE | [id number] | | + + + + + + + | Specimen | Performing Laboratory | + + + | | [facility] [address] [facility] | | | [place] [address] | + + + MANUAL DIFFERENTIAL (03/06/2017 10:00 PM) + + + + | Component | Value | Ref Range | + + + + | NEUTROPHIL % | 38.7 (L) | 50.0 - 70.0 % | + + + + | LYMPHOCYTE % | 12.6 (L) | 18.0 - 42.0 % | + + + + | MONOCYTE % | 1.8 (L) | 3.5 - 9.0 % | + + + + | EOSINOPHIL % | 0.0 (L) | 1.0 - 3.0 % | + + + + | BASOPHIL % | 0.0 | 0.0 - 2.0 % | + + + + | ATYPICAL CELL % | 46.9 (HH)Comment: Atypical cells with fine | 0.0 % | | | chromatin, high N/C ratio, prominent | | | | nucleoli; | | + + + + | NEUTROPHIL # | 0.21 (L) | 1.80 - 7.70 K/cu mm | + + + + | LYMPHOCYTE # | 0.07 (L) | 1.00 - 4.80 K/cu mm | + + + + | MONOCYTE # | 0.01 (L) | 0.10 - 0.90 K/cu mm | + + + + | EOSINOPHIL # | 0.00 | 0.00 - 0.50 K/cu mm | + + + + | BASOPHIL # | 0.00 | 0.00 - 0.10 K/cu mm | + + + + | ATYPICAL CELLS # | 0.25 | K/cu mm | + + + + + + + | Specimen | Performing Laboratory | + + + | Blood | [facility], [address] [facility] | | | [place] [address] | + + + CBC AND AUTO DIFF (03/06/2017 10:00 PM) + + + + | Component | Value | Ref Range | + + + + | WHITE CELL COUNT | 0.54 (L) | 3.50 - 10.80 K/cu mm | + + + + | RED CELL COUNT | 2.21 (L) | 4.00 - 5.20 M/cu mm | + + + + | HEMOGLOBIN | 7.1 (L) | 12.0 - 16.0 g/dL | + + + + | HEMATOCRIT | 21.1 (L) | 36.0 - 46.0 % | + + + + | MCV | 95.5 | 80.0 - 96.0 fL | + + + + | MCHC | 33.6 | 33.0 - 35.5 g/dL | + + + + | RDW SD | 46.3 | 35.1 - 46.3 fL | + + + + | PLATELET COUNT | 23 (L) | 150 - 400 K/cu mm | + + + + | MPV | 10.7 | 9.7 - 12.3 fL | + + + + | NRBC% | 0.0 | 0.0 - 0.3 % | + + + + | NRBC# | 0.00 | 0.00 - 0.02 K/cu mm | + + + + + + + | Specimen | Performing Laboratory | + + + | Blood | [facility], [address] [facility] | | | [facility] [address] | + + + BASIC METABOLIC SET (NA, K, CL, TCO2, BUN, CR, GLU, CA) (03/06/2017 10:00 PM) + + + + | Component | Value | Ref Range | + + + + | GLUCOSE, PLASMA | 153 (H) | 70 - 99 mg/dL | | (LAB) | | | + + + + | BUN, PLASMA (LAB) | 20 | 6 - 20 mg/dL | + + + + | CREATININE PLASMA | 0.49 (L) | 0.60 - 1.10 mg/dL | | (LAB) | | | + + + + | EGFR - | >60 | >60 mL/min | | UKRAINIAN | | | + + + + | EGFR NON | >60 | >60 mL/min | | -UKRAINIAN | | | + + + + | SODIUM, PLASMA (LAB) | 141 | 136 - 145 mmol/L | + + + + | POTASSIUM, PLASMA | 3.7 | 3.4 - 5.0 mmol/L | | (LAB) | | | + + + + | CHLORIDE, PLASMA | 109 (H) | 97 - 108 mmol/L | | (LAB) | | | + + + + | TOTAL CO2, PLASMA | 26 | 21 - 32 mmol/L | | (LAB) | | | + + + + | CALCIUM, PLASMA | 6.9 (L) | 8.6 - 10.2 mg/dL | | (LAB) | | | + + + + | ANION GAP | 6 | mmol/L | + + + + | POTASSIUM CMNT | No Hemo | | + + + + + + + | Specimen | Performing Laboratory | + + + | Blood | [facility], [address] | | | [place] [address] | + + + + + | Narrative | + + | Adult glucose reference range change effective 7--17. GFR is estimated using the | | MDRD equation recommended by the National Kidney Disease Education Program. | | Estimated GFR Interpretive Information: <60 mL/min/1.73 sq | | m Chronic Kidney Disease <15 mL/min/1.73 sq | | m Kidney Failure Estimated GFR greater that 60 mL/min/1.73 | | sq m is of limited clinical value. The MDRD equation is not valid in the following | | situations: - Patients under 18 years of age - Severe malnutrition or obesity - | | Vegetarian diet - Rapidly changing kidney function | + + URIC ACID, PLASMA (03/06/2017 10:00 PM) + +-------+ + | Component | Value | Ref Range | + +-------+ + | URIC ACID, PLASMA | 3.8 | 2.5 - 6.2 mg/dL | | (LAB) | | | + +-------+ + + + + | Specimen | Performing Laboratory | + + + | Blood | [facility], [place] [address] [place] [address] | | | [place] [address] | + + + PHOSPHORUS, PLASMA (03/06/2017 10:00 PM) + +-------+ + | Component | Value | Ref Range | + +-------+ + | PHOSPHORUS, PLASMA | 3.2 | 2.4 - 4.7 mg/dL | | (LAB) | | | + +-------+ + + + + | Specimen | Performing Laboratory | + + + | Blood | [facility], [place] [place] [address] | | | [place] [address] | + + + COAGULOPATHY PANEL (INR,APTT,FIBRINOGEN) (03/06/2017 10:00 PM) + + + + | Component | Value | Ref Range | + + + + | INR | 1.33 (H) | 0.90 - 1.20 INR | + + + + | APTT | 38.3 (H) | 26.0 - 36.0 seconds | + + + + | FIBRINOGEN LEVEL | 277 | 200 - 450 mg/dL | + + + + + + + | Specimen | Performing Laboratory | + + + | Blood | [facility], [address] | | | [place] [address] | + + + + + | Narrative | + + | INR Therapeutic ranges for full anticoagulation: INR for Venous | | Thromboembolism (2.0 - 3.0) INR INR for most patients with | | mech. valves (2.5 - 3.5) INR APTT Therapeutic | | Range: (75 - 120) sec Heparin levels | | of 0.35 - 0.7 U/mL | + + CBC, WITH DIFFERENTIAL (03/06/2017 10:00 PM) + + + | Specimen | Performing Laboratory | + + + | Blood | | + + + + + | Narrative | + + | The following orders were created for panel order CBC, WITH DIFFERENTIAL. | | Procedure | | Abnormality Status | | --------- | | ------ CBC AND AUTO | | DIFF[[id number]] Abnormal Final | | result MANUAL | | DIFFERENTIAL[[id number]] Abnormal Final | | result Please view results for these tests on the | | individual orders. | + + MAGNESIUM, PLASMA (03/06/2017 10:00 PM) + +-------+ + | Component | Value | Ref Range | + +-------+ + | MAGNESIUM,PLASMA | 2.5 | 1.6 - 2.6 mg/dL | + +-------+ + + + + | Specimen | Performing Laboratory | + + + | Blood | [facility], [address] [facility] | | | [place] [address] | + + + + + | Narrative | + + | Reference range change effective 12/11/16. | + + COMPLETE METABOLIC SET (NA,K,CL,CO2,BUN,CREAT,GLUC,CA,AST,ALT,BILI TOTAL,ALK PHOS,ALB,PROT TOTAL) (03/06/2017 10:00 PM) + + + + | Component | Value | Ref Range | + + + + | GLUCOSE, PLASMA | 153 (H) | 70 - 99 mg/dL | | (LAB) | | | + + + + | BUN, PLASMA (LAB) | 20 | 6 - 20 mg/dL | + + + + | CREATININE PLASMA | 0.49 (L) | 0.60 - 1.10 mg/dL | | (LAB) | | | + + + + | EGFR - | >60 | >60 mL/min | | UKRAINIAN | | | + + + + | EGFR NON | >60 | >60 mL/min | | -UKRAINIAN | | | + + + + | SODIUM, PLASMA (LAB) | 141 | 136 - 145 mmol/L | + + + + | POTASSIUM, PLASMA | 3.7 | 3.4 - 5.0 mmol/L | | (LAB) | | | + + + + | CHLORIDE, PLASMA | 109 (H) | 97 - 108 mmol/L | | (LAB) | | | + + + + | TOTAL CO2, PLASMA | 26 | 21 - 32 mmol/L | | (LAB) | | | + + + + | CALCIUM, PLASMA | 6.9 (L) | 8.6 - 10.2 mg/dL | | (LAB) | | | + + + + | CALCIUM(ALB | 8.3 (L) | 8.6 - 10.2 mg/dL | | CORRECTED) | | | + + + + | BILIRUBIN TOTAL | 0.6 | 0.3 - 1.2 mg/dL | + + + + | TOTAL PROTEIN, | 5.2 (L) | 6.4 - 8.2 g/dL | | PLASMA (LAB) | | | + + + + | ALBUMIN, PLASMA | 2.2 (L) | 3.5 - 4.7 g/dL | | (LAB) | | | + + + + | ALK PHOS | 238 (H) | 42 - 98 U/L | + + + + | AST(SGOT) | 65 (H) | <=41 U/L | + + + + | ALT (SGPT) | 33 | <=60 U/L | + + + + | ANION GAP | 6 | mmol/L | + + + + | ANION GAP(ALB | 10 | 4 - 11 mmol/L | | CORRECTED) | | | + + + + | POTASSIUM CMNT | No Hemo | | + + + + | LYSSAI T CMNT | No Hemo | | + + + + | AST CMNT | No Hemo | | + + + + + + + | Specimen | Performing Laboratory | + + + | Blood | [facility], [place] [address] | | | [place] [address] | + + + + + | Narrative | + + | Adult glucose reference range change effective 7-12-17. GFR is estimated using the | | MDRD equation recommended by the National Kidney Disease Education Program. | | Estimated GFR Interpretive Information: <60 mL/min/1.73 sq | | m Chronic Kidney Disease <15 mL/min/1.73 sq | | m Kidney Failure Estimated GFR greater that 60 mL/min/1.73 | | sq m is of limited clinical value. The MDRD equation is not valid in the following | | situations: - Patients under 18 years of age - Severe malnutrition or obesity - | | Vegetarian diet - Rapidly changing kidney function | + + D-DIMER, (PE OR DIC) (03/06/2017 10:00 PM) + + + + | Component | Value | Ref Range | + + + + | D-DIMER (PE OR DIC) | >4.00 (H) | <0.50 ug/mLFEU | + + + + + + + | Specimen | Performing Laboratory | + + + | Blood | [facility], [address] [facility] | | | [place] [address] | + + + + + | Narrative | + + | D-Dimer Interpretation: <0.5 PE very unlikely 0.50-4.0 Seen in | | ill patients but not diagnostic of thrombosis. >4.0 Compatible with DIC but | | not diagnostic. If clinically indicated request titration of | | d-dimer. Values >8.0 are strongly suggestive of DIC. | + + BASIC METABOLIC SET (NA, K, CL, TCO2, BUN, CR, GLU, CA) (03/06/2017 2:31 PM) + + + + | Component | Value | Ref Range | + + + + | GLUCOSE, PLASMA | 159 (H) | 70 - 99 mg/dL | | (LAB) | | | + + + + | BUN, PLASMA (LAB) | 21 (H) | 6 - 20 mg/dL | + + + + | CREATININE PLASMA | 0.48 (L) | 0.60 - 1.10 mg/dL | | (LAB) | | | + + + + | EGFR - | >60 | >60 mL/min | | UKRAINIAN | | | + + + + | EGFR NON | >60 | >60 mL/min | | -UKRAINIAN | | | + + + + | SODIUM, PLASMA (LAB) | 139 | 136 - 145 mmol/L | + + + + | POTASSIUM, PLASMA | 3.6 | 3.4 - 5.0 mmol/L | | (LAB) | | | + + + + | CHLORIDE, PLASMA | 105 | 97 - 108 mmol/L | | (LAB) | | | + + + + | TOTAL CO2, PLASMA | 26 | 21 - 32 mmol/L | | (LAB) | | | + + + + | CALCIUM, PLASMA | 7.8 (L) | 8.6 - 10.2 mg/dL | | (LAB) | | | + + + + | ANION GAP | 8 | mmol/L | + + + + | POTASSIUM CMNT | No Hemo | | + + + + + + + | Specimen | Performing Laboratory | + + + | Blood | [facility], [address] [facility] | | | [place] [address] | + + + + + | Narrative | + + | Adult glucose reference range change effective 11-07-17. GFR is estimated using the | | MDRD equation recommended by the National Kidney Disease Education Program. | | Estimated GFR Interpretive Information: <60 mL/min/1.73 sq | | m Chronic Kidney Disease <15 mL/min/1.73 sq | | m Kidney Failure Estimated GFR greater that 60 mL/min/1.73 | | sq m is of limited clinical value. The MDRD equation is not valid in the following | | situations: - Patients under 18 years of age - Severe malnutrition or obesity - | | Vegetarian diet - Rapidly changing kidney function | + + PHOSPHORUS, PLASMA (03/06/2017 2:31 PM) + +-------+ + | Component | Value | Ref Range | + +-------+ + | PHOSPHORUS, PLASMA | 3.1 | 2.4 - 4.7 mg/dL | | (LAB) | | | + +-------+ + + + + | Specimen | Performing Laboratory | + + + | Blood | [facility], [address] [facility] | | | [facility] [place] [address] | + + + URIC ACID, PLASMA (03/06/2017 2:31 PM) + +-------+ + | Component | Value | Ref Range | + +-------+ + | URIC ACID, PLASMA | 5.5 | 2.5 - 6.2 mg/dL | | (LAB) | | | + +-------+ + + + + | Specimen | Performing Laboratory | + + + | Blood | [facility], [address] [place] [address] | | | [place] [address] | + + + COAGULOPATHY PANEL (INR,APTT,FIBRINOGEN) (03/06/2017 2:31 PM) + + + + | Component | Value | Ref Range | + + + + | INR | 1.36 (H) | 0.90 - 1.20 INR | + + + + | APTT | 37.9 (H) | 26.0 - 36.0 seconds | + + + + | FIBRINOGEN LEVEL | 353 | 200 - 450 mg/dL | + + + + + + + | Specimen | Performing Laboratory | + + + | Blood | [facility], [address] [address] | | | [place] [address] | + + + + + | Narrative | + + | INR Therapeutic ranges for full anticoagulation: INR for Venous | | Thromboembolism (2.0 - 3.0) INR INR for most patients with | | mech. valves (2.5 - 3.5) INR APTT Therapeutic | | Range: (75 - 120) sec Heparin levels | | of 0.35 - 0.7 U/mL | + + D-DIMER, (PE OR DIC) (03/06/2017 2:29 PM) + + + + | Component | Value | Ref Range | + + + + | D-DIMER (PE OR DIC) | >4.00 (H) | <0.50 ug/mLFEU | + + + + + + + | Specimen | Performing Laboratory | + + + | Blood | [facility], [address] [facility] | | | [place] [address] | + + + + + | Narrative | + + | D-Dimer Interpretation: <0.5 PE very unlikely 0.50-4.0 Seen in | | ill patients but not diagnostic of thrombosis. >4.0 Compatible with DIC but | | not diagnostic. If clinically indicated request titration of | | d-dimer. Values >8.0 are strongly suggestive of DIC. | + + CBC (HEMOGRAM) ONLY (03/06/2017 11:27 AM) + + + + | Component | Value | Ref Range | + + + + | WHITE CELL COUNT | 1.49 (L) | 3.50 - 10.80 K/cu mm | + + + + | RED CELL COUNT | 2.55 (L) | 4.00 - 5.20 M/cu mm | + + + + | HEMOGLOBIN | 8.0 (L) | 12.0 - 16.0 g/dL | + + + + | HEMATOCRIT | 23.6 (L) | 36.0 - 46.0 % | + + + + | MCV | 92.5 | 80.0 - 96.0 fL | + + + + | MCHC | 33.9 | 33.0 - 35.5 g/dL | + + + + | RDW SD | 45.0 | 35.1 - 46.3 fL | + + + + | PLATELET COUNT | 31 (L) | 150 - 400 K/cu mm | + + + + | MPV | 9.2 (L) | 9.7 - 12.3 fL | + + + + | NRBC% | 0.0 | 0.0 - 0.3 % | + + + + | NRBC# | 0.00 | 0.00 - 0.02 K/cu mm | + + + + + + + | Specimen | Performing Laboratory | + + + | Blood | [facility], [address] [place] [address] | | | [place] [address] | + + + CBC ONLY (03/06/2017 11:27 AM) + + + | Specimen | Performing Laboratory | + + + | Blood | | + + + + + | Narrative | + + | The following orders were created for panel order CBC ONLY. | | Procedure | | Abnormality Status | | --------- | | ------ CBC (HEMOGRAM) | | ONLY[[id number]] Abnormal Final | | result Please view results for these tests on the | | individual orders. | + + PRODUCT - PLATELET PHERESIS LEUKOREDUCED (03/06/2017 10:09 AM) + + + + | Component | Value | Ref Range | + + + + | PRODUCT DESCRIPTION | PLATELETS PHERESIS, LEUKOCYTE REDUCED, | | | | IRRADIATED | | + + + + | PRODUCT UNIT # | [id number] | | + + + + | UNIT ABO | A | | + + + + | UNIT RH | POS | | + + + + | STATUS OF UNIT | Returned to Blood Bank | | + + + + | EXPIRATION DATE | [id number] | | + + + + | BLOOD TYPE BARCODE | 6200 | | + + + + | BLOOD PRODUCT CODE | [id number] | | + + + + + + + | Specimen | Performing Laboratory | + + + | | [facility], [facility]SF[facility]ION MEDICINE [address] | | | [place] [address] | + + + CBC (HEMOGRAM) ONLY (03/06/2017 6:55 AM) + + + + | Component | Value | Ref Range | + + + + | WHITE CELL COUNT | 2.76 (L) | 3.50 - 10.80 K/cu mm | + + + + | RED CELL COUNT | 2.53 (L) | 4.00 - 5.20 M/cu mm | + + + + | HEMOGLOBIN | 7.9 (L) | 12.0 - 16.0 g/dL | + + + + | HEMATOCRIT | 23.8 (L) | 36.0 - 46.0 % | + + + + | MCV | 94.1 | 80.0 - 96.0 fL | + + + + | MCHC | 33.2 | 33.0 - 35.5 g/dL | + + + + | RDW SD | 46.3 | 35.1 - 46.3 fL | + + + + | PLATELET COUNT | 22 (L) | 150 - 400 K/cu mm | + + + + | MPV | 10.7 | 9.7 - 12.3 fL | + + + + | NRBC% | 0.0 | 0.0 - 0.3 % | + + + + | NRBC# | 0.00 | 0.00 - 0.02 K/cu mm | + + + + + + + | Specimen | Performing Laboratory | + + + | Blood | [facility], [address] [facility] | | | [place] [address] | + + + CBC ONLY (03/06/2017 6:55 AM) + + + | Specimen | Performing Laboratory | + + + | Blood | | + + + + + | Narrative | + + | The following orders were created for panel order CBC ONLY. | | Procedure | | Abnormality Status | | --------- | | ------ CBC (HEMOGRAM) | | ONLY[[id number]] Abnormal Final | | result Please view results for these tests on the | | individual orders. | + + COAGULOPATHY PANEL (INR,APTT,FIBRINOGEN) (03/06/2017 6:55 AM) + + + + | Component | Value | Ref Range | + + + + | INR | 1.49 (H) | 0.90 - 1.20 INR | + + + + | APTT | 44.5 (H) | 26.0 - 36.0 seconds | + + + + | FIBRINOGEN LEVEL | 407 | 200 - 450 mg/dL | + + + + + + + | Specimen | Performing Laboratory | + + + | Blood | [facility], [address] [facility] | | | [place] [address] | + + + + + | Narrative | + + | INR Therapeutic ranges for full anticoagulation: INR for Venous | | Thromboembolism (2.0 - 3.0) INR INR for most patients with | | mech. valves (2.5 - 3.5) INR APTT Therapeutic | | Range: (75 - 120) sec Heparin levels | | of 0.35 - 0.7 U/mL | + + PHOSPHORUS, PLASMA (03/06/2017 6:55 AM) + +-------+ + | Component | Value | Ref Range | + +-------+ + | PHOSPHORUS, PLASMA | 4.3 | 2.4 - 4.7 mg/dL | | (LAB) | | | + +-------+ + + + + | Specimen | Performing Laboratory | + + + | Blood | [facility], [address] | | | [place] [address] | + + + URIC ACID, PLASMA (03/06/2017 6:55 AM) + +-------+ + | Component | Value | Ref Range | + +-------+ + | URIC ACID, PLASMA | 5.1 | 2.5 - 6.2 mg/dL | | (LAB) | | | + +-------+ + + + + | Specimen | Performing Laboratory | + + + | Blood | [facility], [address] | | | [place] [address] | + + + BASIC METABOLIC SET (NA, K, CL, TCO2, BUN, CR, GLU, CA) (03/06/2017 6:55 AM) + + + + | Component | Value | Ref Range | + + + + | GLUCOSE, PLASMA | 142 (H) | 70 - 99 mg/dL | | (LAB) | | | + + + + | BUN, PLASMA (LAB) | 18 | 6 - 20 mg/dL | + + + + | CREATININE PLASMA | 0.50 (L) | 0.60 - 1.10 mg/dL | | (LAB) | | | + + + + | EGFR - | >60 | >60 mL/min | | UKRAINIAN | | | + + + + | EGFR NON | >60 | >60 mL/min | | -UKRAINIAN | | | + + + + | SODIUM, PLASMA (LAB) | 137 | 136 - 145 mmol/L | + + + + | POTASSIUM, PLASMA | 4.3 | 3.4 - 5.0 mmol/L | | (LAB) | | | + + + + | CHLORIDE, PLASMA | 103 | 97 - 108 mmol/L | | (LAB) | | | + + + + | TOTAL CO2, PLASMA | 28 | 21 - 32 mmol/L | | (LAB) | | | + + + + | CALCIUM, PLASMA | 8.0 (L) | 8.6 - 10.2 mg/dL | | (LAB) | | | + + + + | ANION GAP | 6 | mmol/L | + + + + | POTASSIUM CMNT | No Hemo | | + + + + + + + | Specimen | Performing Laboratory | + + + | Blood | [facility] [address] | | | [place] [address] | + + + + + | Narrative | + + | Adult glucose reference range change effective 7-12-17. GFR is estimated using the | | MDRD equation recommended by the National Kidney Disease Education Program. | | Estimated GFR Interpretive Information: <60 mL/min/1.73 sq | | m Chronic Kidney Disease <15 mL/min/1.73 sq | | m Kidney Failure Estimated GFR greater that 60 mL/min/1.73 | | sq m is of limited clinical value. The MDRD equation is not valid in the following | | situations: - Patients under 18 years of age - Severe malnutrition or obesity - | | Vegetarian diet - Rapidly changing kidney function | + + PRODUCT - PLATELET PHERESIS LEUKOREDUCED (03/06/2017 4:02 AM) + + + + | Component | Value | Ref Range | + + + + | PRODUCT DESCRIPTION | APHERESIS | | | | PLATELETS,PAS,LEUKOREDUCED,IRRADIATED | | + + + + | PRODUCT UNIT # | [id number] | | + + + + | UNIT ABO | O | | + + + + | UNIT RH | POS | | + + + + | STATUS OF UNIT | Returned to Blood Bank | | + + + + | EXPIRATION DATE | [id number] | | + + + + | BLOOD TYPE BARCODE | 5100 | | + + + + | BLOOD PRODUCT CODE | [id number] | | + + + + + + + | Specimen | Performing Laboratory | + + + | | [facility], [facility]ICINE [address] | | | [address] [facility] [place] [address] | + + + PRODUCT - PLATELET PHERESIS LEUKOREDUCED (03/06/2017 4:02 AM) + + + + | Component | Value | Ref Range | + + + + | PRODUCT DESCRIPTION | APHERESIS | | | | PLATELETS,PAS,LEUKOREDUCED,IRRADIATED | | + + + + | PRODUCT UNIT # | [id number] | | + + + + | UNIT ABO | O | | + + + + | UNIT RH | POS | | + + + + | STATUS OF UNIT | Presumed Transfused | | + + + + | EXPIRATION DATE | [id number] | | + + + + | BLOOD TYPE BARCODE | 5100 | | + + + + | BLOOD PRODUCT CODE | [id number] | | + + + + + + + | Specimen | Performing Laboratory | + + + | | [facility], [facility]ICINE [address] [facility] | | | [place] [address] | + + + ANTIBODY SCREEN (03/06/2017 2:28 AM) + + + + | Component | Value | Ref Range | + + + + | Antibody Screen | Negative | | + + + + + + + | Specimen | Performing Laboratory | + + + | Blood | [facility], [facility] [address] | | | [place] [address] | + + + ABO & RH TYPE (03/06/2017 2:28 AM) + + + + | Component | Value | Ref Range | + + + + | ABO Group | O | | + + + + | Rh Type | Positive | | + + + + + + + | Specimen | Performing Laboratory | + + + | Blood | [facility], [facility]ICINE [address] | | | [address] [place] [address] | + + + TYPE AND SCREEN (03/06/2017 2:28 AM) + + + | Specimen | Performing Laboratory | + + + | Blood | | + + + + + | Narrative | + + | The following orders were created for panel order TYPE AND SCREEN. | | Procedure | | Abnormality Status | | --------- | | ------ ABO & RH | | TYPE[[id number]] F | | inal result ANTIBODY | | SCREEN[[id number]] Fin | | al result Please view results for these tests on the | | individual orders. | + + RBC MORPHOLOGY (03/06/2017 2:27 AM) + + + | Specimen | Performing Laboratory | + + + | Blood | [facility], [place] [address] [place] [address] | | | [place] [address] | + + + MANUAL DIFFERENTIAL (03/06/2017 2:27 AM) + + + + | Component | Value | Ref Range | + + + + | NEUTROPHIL % | 36.2 (L) | 50.0 - 70.0 % | + + + + | LYMPHOCYTE % | 18.4 | 18.0 - 42.0 % | + + + + | MONOCYTE % | 3.3 (L) | 3.5 - 9.0 % | + + + + | EOSINOPHIL % | 0.0 (L) | 1.0 - 3.0 % | + + + + | BASOPHIL % | 0.0 | 0.0 - 2.0 % | + + + + | IMMATURE | 0.0Comment: Immature Granulocytes (IG) | 0.0 - 0.6 % | | GRANULOCYTE% | include metamyelocytes, myelocytes and | | | | promyelocytes. Bands are not included in | | | | the IG count. Bands are included in the | | | | neutrophil count. | | + + + + | ATYPICAL CELL % | 42.1 ()Comment: Atypical Cells with fine | 0.0 % | | | chromatin, high N-C ratio, prominent | | | | nucleoli and dark blue cytoplasm., Some | | | | Monocytes appear immature on scan., | | | | Atypical Cells with fine chromatin, high | | | | N-C ratio, prominent nucleoli and dark blue | | | | cytoplasm., Some Monocytes appear immature | | | | on scan. | | + + + + | NEUTROPHIL # | 1.22 (L) | 1.80 - 7.70 K/cu mm | + + + + | LYMPHOCYTE # | 0.62 (L) | 1.00 - 4.80 K/cu mm | + + + + | MONOCYTE # | 0.11 | 0.10 - 0.90 K/cu mm | + + + + | EOSINOPHIL # | 0.00 | 0.00 - 0.50 K/cu mm | + + + + | BASOPHIL # | 0.00 | 0.00 - 0.10 K/cu mm | + + + + | IMMATURE | 0.00 | 0.00 - 0.03 K/cu mm | | GRANULOCYTE# | | | + + + + | ATYPICAL CELLS # | 1.42 | K/cu mm | + + + + + + + | Specimen | Performing Laboratory | + + + | Blood | [facility], [address] [facility] | | | [place] [address] | + + + + + | Narrative | + + | Immature Granulocytes (IG) include metamyelocytes, myelocytes and | | promyelocytes. Bands are not included in the IG count. Bands are included in the | | neutrophil count. | + + CBC AND AUTO DIFF (03/06/2017 2:27 AM) + + + + | Component | Value | Ref Range | + + + + | WHITE CELL COUNT | 3.38 (L) | 3.50 - 10.80 K/cu mm | + + + + | RED CELL COUNT | 2.66 (L) | 4.00 - 5.20 M/cu mm | + + + + | HEMOGLOBIN | 8.6 (L) | 12.0 - 16.0 g/dL | + + + + | HEMATOCRIT | 25.0 (L) | 36.0 - 46.0 % | + + + + | MCV | 94.0 | 80.0 - 96.0 fL | + + + + | MCHC | 34.4 | 33.0 - 35.5 g/dL | + + + + | RDW SD | 46.6 (H) | 35.1 - 46.3 fL | + + + + | PLATELET COUNT | 26 (L) | 150 - 400 K/cu mm | + + + + | MPV | 10.4 | 9.7 - 12.3 fL | + + + + | NRBC% | 0.0 | 0.0 - 0.3 % | + + + + | NRBC# | 0.00 | 0.00 - 0.02 K/cu mm | + + + + + + + | Specimen | Performing Laboratory | + + + | Blood | [facility], [address] [facility] | | | [place] [address] | + + + COAGULOPATHY PANEL (INR,APTT,FIBRINOGEN) (03/06/2017 2:27 AM) + + + + | Component | Value | Ref Range | + + + + | INR | 1.46 (H) | 0.90 - 1.20 INR | + + + + | APTT | 43.0 (H) | 26.0 - 36.0 seconds | + + + + | FIBRINOGEN LEVEL | 480 (H) | 200 - 450 mg/dL | + + + + + + + | Specimen | Performing Laboratory | + + + | Blood | [facility], [facility] [address] [place] [address] | | | [place] [address] | + + + + + | Narrative | + + | INR Therapeutic ranges for full anticoagulation: INR for Venous | | Thromboembolism (2.0 - 3.0) INR INR for most patients with | | mech. valves (2.5 - 3.5) INR APTT Therapeutic | | Range: (75 - 120) sec Heparin levels | | of 0.35 - 0.7 U/mL | + + URIC ACID, PLASMA (03/06/2017 2:27 AM) + +-------+ + | Component | Value | Ref Range | + +-------+ + | URIC ACID, PLASMA | 3.7 | 2.5 - 6.2 mg/dL | | (LAB) | | | + +-------+ + + + + | Specimen | Performing Laboratory | + + + | Blood | [facility], [address] [place] [address] | | | [place] [address] | + + + BASIC METABOLIC SET (NA, K, CL, TCO2, BUN, CR, GLU, CA) (03/06/2017 2:27 AM) + + + + | Component | Value | Ref Range | + + + + | GLUCOSE, PLASMA | 150 (H) | 70 - 99 mg/dL | | (LAB) | | | + + + + | BUN, PLASMA (LAB) | 14 | 6 - 20 mg/dL | + + + + | CREATININE PLASMA | 0.49 (L) | 0.60 - 1.10 mg/dL | | (LAB) | | | + + + + | EGFR - | >60 | >60 mL/min | | UKRA[place]IAN | | | + + + + | EGFR NON | >60 | >60 mL/min | | -UKRAINIAN | | | + + + + | SODIUM, PLASMA (LAB) | 139 | 136 - 145 mmol/L | + + + + | POTASSIUM, PLASMA | 4.6 | 3.4 - 5.0 mmol/L | | (LAB) | | | + + + + | CHLORIDE, PLASMA | 102 | 97 - 108 mmol/L | | (LAB) | | | + + + + | TOTAL CO2, PLASMA | 29 | 21 - 32 mmol/L | | (LAB) | | | + + + + | CALCIUM, PLASMA | 8.0 (L) | 8.6 - 10.2 mg/dL | | (LAB) | | | + + + + | ANION GAP | 8 | mmol/L | + + + + | POTASSIUM CMNT | No Hemo | | + + + + + + + | Specimen | Performing Laboratory | + + + | Blood | [facility], [address] [facility] | | | [place] [address] | + + + + + | Narrative | + + | Adult glucose reference range change effective 7-12-17. GFR is estimated using the | | MDRD equation recommended by the National Kidney Disease Education Program. | | Estimated GFR Interpretive Information: <60 mL/min/1.73 sq | | m Chronic Kidney Disease <15 mL/min/1.73 sq | | m Kidney Failure Estimated GFR greater that 60 mL/min/1.73 | | sq m is of limited clinical value. The MDRD equation is not valid in the following | | situations: - Patients under 18 years of age - Severe malnutrition or obesity - | | Vegetarian diet - Rapidly changing kidney function | + + CBC, WITH DIFFERENTIAL (03/06/2017 2:27 AM) + + + | Specimen | Performing Laboratory | + + + | Blood | | + + + + + | Narrative | + + | The following orders were created for panel order CBC, WITH DIFFERENTIAL. | | Procedure | | Abnormality Status | | --------- | | ------ CBC AND AUTO | | DIFF[[id number]] Abnormal Final | | result MANUAL | | DIFFERENTIAL[[id number]] Abnormal Final | | result RBC | | MORPHOLOGY[[id number]] | | Final result Please view results for these tests on the | | individual orders. | + + PHOSPHORUS, PLASMA (03/06/2017 2:27 AM) + +-------+ + | Component | Value | Ref Range | + +-------+ + | PHOSPHORUS, PLASMA | 4.2 | 2.4 - 4.7 mg/dL | | (LAB) | | | + +-------+ + + + + | Specimen | Performing Laboratory | + + + | Blood | [facility], [address] [address] [facility] | | | [place] [address] | + + + MAGNESIUM, PLASMA (03/06/2017 2:27 AM) + +-------+ + | Component | Value | Ref Range | + +-------+ + | MAGNESIUM,PLASMA | 2.3 | 1.6 - 2.6 mg/dL | + +-------+ + + + + | Specimen | Performing Laboratory | + + + | Blood | [facility], [address] | | | [place] [address] | + + + + + | Narrative | + + | Reference range change effective 12/11/16. | + + COMPLETE METABOLIC SET (NA,K,CL,CO2,BUN,CREAT,GLUC,CA,AST,ALT,BILI TOTAL,ALK PHOS,ALB,PROT TOTAL) (03/06/2017 2:27 AM) + + + + | Component | Value | Ref Range | + + + + | GLUCOSE, PLASMA | 150 (H) | 70 - 99 mg/dL | | (LAB) | | | + + + + | BUN, PLASMA (LAB) | 14 | 6 - 20 mg/dL | + + + + | CREATININE PLASMA | 0.49 (L) | 0.60 - 1.10 mg/dL | | (LAB) | | | + + + + | EGFR - | >60 | >60 mL/min | | UKRAINIAN | | | + + + + | EGFR NON | >60 | >60 mL/min | | -UKRAINIAN | | | + + + + | SODIUM, PLASMA (LAB) | 139 | 136 - 145 mmol/L | + + + + | POTASSIUM, PLASMA | 4.6 | 3.4 - 5.0 mmol/L | | (LAB) | | | + + + + | CHLORIDE, PLASMA | 102 | 97 - 108 mmol/L | | (LAB) | | | + + + + | TOTAL CO2, PLASMA | 29 | 21 - 32 mmol/L | | (LAB) | | | + + + + | CALCIUM, PLASMA | 8.0 (L) | 8.6 - 10.2 mg/dL | | (LAB) | | | + + + + | CALCIUM(ALB | 9.2 | 8.6 - 10.2 mg/dL | | CORRECTED) | | | + + + + | BILIRUBIN TOTAL | 0.6 | 0.3 - 1.2 mg/dL | + + + + | TOTAL PROTEIN, | 5.9 (L) | 6.4 - 8.2 g/dL | | PLASMA (LAB) | | | + + + + | ALBUMIN, PLASMA | 2.5 (L) | 3.5 - 4.7 g/dL | | (LAB) | | | + + + + | ALK PHOS | 301 (H) | 42 - 98 U/L | + + + + | AST(SGOT) | 82 (H) | <=41 U/L | + + + + | ALT (SGPT) | 41 | <=60 U/L | + + + + | ANION GAP | 8 | mmol/L | + + + + | ANION GAP(ALB | 11 | 4 - 11 mmol/L | | CORRECTED) | | | + + + + | POTASSIUM CMNT | No Hemo | | + + + + | BILI T CMNT | No Hemo | | + + + + | AST CMNT | No Hemo | | + + + + + + + | Specimen | Performing Laboratory | + + + | Blood | [facility], [address] [address] [facility] | | | [place] [address] | + + + + + | Narrative | + + | Adult glucose reference range change effective 11-07-. GFR is estimated using the | | MDRD equation recommended by the National Kidney Disease Education Program. | | Estimated GFR Interpretive Information: <60 mL/min/1.73 sq | | m Chronic Kidney Disease <15 mL/min/1.73 sq | | m Kidney Failure Estimated GFR greater that 60 mL/min/1.73 | | sq m is of limited clinical value. The MDRD equation is not valid in the following | | situations: - Patients under 18 years of age - Severe malnutrition or obesity - | | Vegetarian diet - Rapidly changing kidney function | + + D-DIMER, (PE OR DIC) (03/06/2017 2:27 AM) + + + + | Component | Value | Ref Range | + + + + | D-DIMER (PE OR DIC) | >4.00 (H) | <0.50 ug/mLFEU | + + + + + + + | Specimen | Performing Laboratory | + + + | Blood | [facility], [address] [address] [facility] | | | [place] [address] | + + + + + | Narrative | + + | D-Dimer Interpretation: <0.5 PE very unlikely 0.50-4.0 Seen in | | ill patients but not diagnostic of thrombosis. >4.0 Compatible with DIC but | | not diagnostic. If clinically indicated request titration of | | d-dimer. Values >8.0 are strongly suggestive of DIC. | + + PRODUCT - PLATELET PHERESIS LEUKOREDUCED (03/05/2017 6:41 PM) + + + + | Component | Value | Ref Range | + + + + | PRODUCT DESCRIPTION | APHERESIS | | | | PLATELETS,PAS,LEUKOREDUCED,IRRADIATED | | + + + + | PRODUCT UNIT # | [id number] | | + + + + | UNIT ABO | O | | + + + + | UNIT RH | POS | | + + + + | STATUS OF UNIT | Presumed Transfused | | + + + + | EXPIRATION DATE | [id number] | | + + + + | BLOOD TYPE BARCODE | 5100 | | + + + + | BLOOD PRODUCT CODE | [id number] | | + + + + + + + | Specimen | Performing Laboratory | + + + | | [facility], TRANSFUSION MEDICINE [address] [facility] | | | [place] [address] | + + + CBC (HEMOGRAM) ONLY (03/05/2017 6:05 PM) + + + + | Component | Value | Ref Range | + + + + | WHITE CELL COUNT | 4.41 | 3.50 - 10.80 K/cu mm | + + + + | RED CELL COUNT | 2.74 (L) | 4.00 - 5.20 M/cu mm | + + + + | HEMOGLOBIN | 8.6 (L) | 12.0 - 16.0 g/dL | + + + + | HEMATOCRIT | 25.5 (L) | 36.0 - 46.0 % | + + + + | MCV | 93.1 | 80.0 - 96.0 fL | + + + + | MCHC | 33.7 | 33.0 - 35.5 g/dL | + + + + | RDW SD | 46.5 (H) | 35.1 - 46.3 fL | + + + + | PLATELET COUNT | 26 (L) | 150 - 400 K/cu mm | + + + + | MPV | 10.4 | 9.7 - 12.3 fL | + + + + | NRBC% | 0.0 | 0.0 - 0.3 % | + + + + | NRBC# | 0.00 | 0.00 - 0.02 K/cu mm | + + + + + + + | Specimen | Performing Laboratory | + + + | Blood | [facility] [address] [place] [address] | | | [place] [address] | + + + CBC ONLY (03/05/2017 6:05 PM) + + + | Specimen | Performing Laboratory | + + + | Blood | | + + + + + | Narrative | + + | The following orders were created for panel order CBC ONLY. | | Procedure | | Abnormality Status | | --------- | | ------ CBC (HEMOGRAM) | | ONLY[[id number]] Abnormal Final | | result Please view results for these tests on the | | individual orders. | + + COAGULOPATHY PANEL (INR,APTT,FIBRINOGEN) (03/05/2017 6:05 PM) + + + + | Component | Value | Ref Range | + + + + | INR | 1.11 | 0.90 - 1.20 INR | + + + + | APTT | 38.6 (H) | 26.0 - 36.0 seconds | + + + + | FIBRINOGEN LEVEL | 574 (H) | 200 - 450 mg/dL | + + + + + + + | Specimen | Performing Laboratory | + + + | Blood | [facility], [address] | | | [place] [address] | + + + + + | Narrative | + + | INR Therapeutic ranges for full anticoagulation: INR for Venous | | Thromboembolism (2.0 - 3.0) INR INR for most patients with | | mech. valves (2.5 - 3.5) INR APTT Therapeutic | | Range: (75 - 120) sec Heparin levels | | of 0.35 - 0.7 U/mL | + + PHOSPHORUS, PLASMA (03/05/2017 6:05 PM) + +-------+ + | Component | Value | Ref Range | + +-------+ + | PHOSPHORUS, PLASMA | 2.4 | 2.4 - 4.7 mg/dL | | (LAB) | | | + +-------+ + + + + | Specimen | Performing Laboratory | + + + | Blood | [facility], [address] [address] [place] [address] | | | [place] [address] | + + + URIC ACID, PLASMA (03/05/2017 6:05 PM) + +-------+ + | Component | Value | Ref Range | + +-------+ + | URIC ACID, PLASMA | 2.9 | 2.5 - 6.2 mg/dL | | (LAB) | | | + +-------+ + + + + | Specimen | Performing Laboratory | + + + | Blood | [facility], [address] [place] [address] | | | [place] [address] | + + + BASIC METABOLIC SET (NA, K, CL, TCO2, BUN, CR, GLU, CA) (03/05/2017 6:05 PM) + + + + | Component | Value | Ref Range | + + + + | GLUCOSE, PLASMA | 110 (H) | 70 - 99 mg/dL | | (LAB) | | | + + + + | BUN, PLASMA (LAB) | 8 | 6 - 20 mg/dL | + + + + | CREATININE PLASMA | 0.43 (L) | 0.60 - 1.10 mg/dL | | (LAB) | | | + + + + | EGFR - | >60 | >60 mL/min | | UKRAINIAN | | | + + + + | EGFR NON | >60 | >60 mL/min | | -UKRAINIAN | | | + + + + | SODIUM, PLASMA (LAB) | 137 | 136 - 145 mmol/L | + + + + | POTASSIUM, PLASMA | 3.6 | 3.4 - 5.0 mmol/L | | (LAB) | | | + + + + | CHLORIDE, PLASMA | 98 | 97 - 108 mmol/L | | (LAB) | | | + + + + | TOTAL CO2, PLASMA | 30 | 21 - 32 mmol/L | | (LAB) | | | + + + + | CALCIUM, PLASMA | 8.4 (L) | 8.6 - 10.2 mg/dL | | (LAB) | | | + + + + | ANION GAP | 9 | mmol/L | + + + + | POTASSIUM CMNT | No Hemo | | + + + + + + + | Specimen | Performing Laboratory | + + + | Blood | [facility], [facility] [address] [facility] | | | [place] [address] | + + + + + | Narrative | + + | Adult glucose reference range change effective 7-12-17. GFR is estimated using the | | MDRD equation recommended by the National Kidney Disease Education Program. | | Estimated GFR Interpretive Information: <60 mL/min/1.73 sq | | m Chronic Kidney Disease <15 mL/min/1.73 sq | | m Kidney Failure Estimated GFR greater that 60 mL/min/1.73 | | sq m is of limited clinical value. The MDRD equation is not valid in the following | | situations: - Patients under 18 years of age - Severe malnutrition or obesity - | | Vegetarian diet - Rapidly changing kidney function | + + PRODUCT - PLATELET PHERESIS LEUKOREDUCED (03/05/2017 3:01 PM) + + + + | Component | Value | Ref Range | + + + + | PRODUCT DESCRIPTION | PLATELETS PHERESIS,LEUKOCYTES REDUCED, | | | | IRRADIATED | | + + + + | PRODUCT UNIT # | [id number] | | + + + + | UNIT ABO | O | | + + + + | UNIT RH | POS | | + + + + | STATUS OF UNIT | Presumed Transfused | | + + + + | EXPIRATION DATE | [id number] | | + + + + | BLOOD TYPE BARCODE | 5100 | | + + + + | BLOOD PRODUCT CODE | [id number] | | + + + + + + + | Specimen | Performing Laboratory | + + + | | [facility], TRANSF[facility]ION MEDICINE [address] [facility] | | | [place] [address] | + + + COAGULOPATHY PANEL (INR,APTT,FIBRINOGEN) (03/05/2017 1:05 PM) + + + + | Component | Value | Ref Range | + + + + | INR | 1.15 | 0.90 - 1.20 INR | + + + + | APTT | 40.5 (H) | 26.0 - 36.0 seconds | + + + + | FIBRINOGEN LEVEL | 542 (H) | 200 - 450 mg/dL | + + + + + + + | Specimen | Performing Laboratory | + + + | Blood | [facility], [address] [address] [place] [address] | | | [place] [address] | + + + + + | Narrative | + + | INR Therapeutic ranges for full anticoagulation: INR for Venous | | Thromboembolism (2.0 - 3.0) INR INR for most patients with | | mech. valves (2.5 - 3.5) INR APTT Therapeutic | | Range: (75 - 120) sec Heparin levels | | of 0.35 - 0.7 U/mL | + + PHOSPHORUS, PLASMA (03/05/2017 1:05 PM) + +-------+ + | Component | Value | Ref Range | + +-------+ + | PHOSPHORUS, PLASMA | 2.4 | 2.4 - 4.7 mg/dL | | (LAB) | | | + +-------+ + + + + | Specimen | Performing Laboratory | + + + | Blood | [facility], [facility] [address] | | | [place] [address] | + + + URIC ACID, PLASMA (03/05/2017 1:05 PM) + +-------+ + | Component | Value | Ref Range | + +-------+ + | URIC ACID, PLASMA | 2.6 | 2.5 - 6.2 mg/dL | | (LAB) | | | + +-------+ + + + + | Specimen | Performing Laboratory | + + + | Blood | [facility], [address] [address] [facility] | | | [place] [address] | + + + BASIC METABOLIC SET (NA, K, CL, TCO2, BUN, CR, GLU, CA) (03/05/2017 1:05 PM) + + + + | Component | Value | Ref Range | + + + + | GLUCOSE, PLASMA | 95 | 70 - 99 mg/dL | | (LAB) | | | + + + + | BUN, PLASMA (LAB) | 7 | 6 - 20 mg/dL | + + + + | CREATININE PLASMA | 0.45 (L) | 0.60 - 1.10 mg/dL | | (LAB) | | | + + + + | EGFR - | >60 | >60 mL/min | | UKRAINIAN | | | + + + + | EGFR NON | >60 | >60 mL/min | | -UKRAINIAN | | | + + + + | SODIUM, PLASMA (LAB) | 137 | 136 - 145 mmol/L | + + + + | POTASSIUM, PLASMA | 3.7 | 3.4 - 5.0 mmol/L | | (LAB) | | | + + + + | CHLORIDE, PLASMA | 101 | 97 - 108 mmol/L | | (LAB) | | | + + + + | TOTAL CO2, PLASMA | 30 | 21 - 32 mmol/L | | (LAB) | | | + + + + | CALCIUM, PLASMA | 8.1 (L) | 8.6 - 10.2 mg/dL | | (LAB) | | | + + + + | ANION GAP | 6 | mmol/L | + + + + | POTASSIUM CMNT | No Hemo | | + + + + + + + | Specimen | Performing Laboratory | + + + | Blood | [facility], [address] [address] | | | [place] [address] | + + + + + | Narrative | + + | Adult glucose reference range change effective 7-17. GFR is estimated using the | | MDRD equation recommended by the National Kidney Disease Education Program. | | Estimated GFR Interpretive Information: <60 mL/min/1.73 sq | | m Chronic Kidney Disease <15 mL/min/1.73 sq | | m Kidney Failure Estimated GFR greater that 60 mL/min/1.73 | | sq m is of limited clinical value. The MDRD equation is not valid in the following | | situations: - Patients under 18 years of age - Severe malnutrition or obesity - | | Vegetarian diet - Rapidly changing kidney function | + + D-DIMER, (PE OR DIC) (03/05/2017 1:05 PM) + + + + | Component | Value | Ref Range | + + + + | D-DIMER (PE OR DIC) | >4.00 (H) | <0.50 ug/mLFEU | + + + + + + + | Specimen | Performing Laboratory | + + + | Blood | [facility], [address] [place] [address] | | | [place] [address] | + + + + + | Narrative | + + | D-Dimer Interpretation: <0.5 PE very unlikely 0.50-4.0 Seen in | | ill patients but not diagnostic of thrombosis. >4.0 Compatible with DIC but | | not diagnostic. If clinically indicated request titration of | | d-dimer. Values >8.0 are strongly suggestive of DIC. | + + CBC (HEMOGRAM) ONLY (03/05/2017 1:05 PM) + + + + | Component | Value | Ref Range | + + + + | WHITE CELL COUNT | 6.32 | 3.50 - 10.80 K/cu mm | + + + + | RED CELL COUNT | 2.57 (L) | 4.00 - 5.20 M/cu mm | + + + + | HEMOGLOBIN | 8.1 (L) | 12.0 - 16.0 g/dL | + + + + | HEMATOCRIT | 24.0 (L) | 36.0 - 46.0 % | + + + + | MCV | 93.4 | 80.0 - 96.0 fL | + + + + | MCHC | 33.8 | 33.0 - 35.5 g/dL | + + + + | RDW SD | 47.2 (H) | 35.1 - 46.3 fL | + + + + | PLATELET COUNT | 13 (L) | 150 - 400 K/cu mm | + + + + | MPV | 10.6 | 9.7 - 12.3 fL | + + + + | NRBC% | 0.0 | 0.0 - 0.3 % | + + + + | NRBC# | 0.00 | 0.00 - 0.02 K/cu mm | + + + + + + + | Specimen | Performing Laboratory | + + + | Blood | [facility], [address] [address] [facility] | | | [place] [address] | + + + CBC ONLY (03/05/2017 1:05 PM) + + + | Specimen | Performing Laboratory | + + + | Blood | | + + + + + | Narrative | + + | The following orders were created for panel order CBC ONLY. | | Procedure | | Abnormality Status | | --------- | | ------ CBC (HEMOGRAM) | | ONLY[[id number]] Abnormal Edited Result - | | FINAL Please view results for these tests on the individual orders. | + + PRODUCT - PLATELET PHERESIS LEUKOREDUCED (03/05/2017 7:39 AM) + + + + | Component | Value | Ref Range | + + + + | PRODUCT DESCRIPTION | PLATELETS PHERESIS, LEUKOCYTE REDUCED, | | | | IRRADIATED | | + + + + | PRODUCT UNIT # | [id number] | | + + + + | UNIT ABO | B | | + + + + | UNIT RH | POS | | + + + + | STATUS OF UNIT | Presumed Transfused | | + + + + | EXPIRATION DATE | [id number] | | + + + + | BLOOD TYPE BARCODE | 7300 | | + + + + | BLOOD PRODUCT CODE | [id number] | | + + + + + + + | Specimen | Performing Laboratory | + + + | | [facility], TRANSF[facility]ION MEDICINE [address] [facility] | | | [place] [address] | + + + COAGULOPATHY PANEL (INR,APTT,FIBRINOGEN) (03/05/2017 6:59 AM) + + + + | Component | Value | Ref Range | + + + + | INR | 1.12 | 0.90 - 1.20 INR | + + + + | APTT | 39.4 (H) | 26.0 - 36.0 seconds | + + + + | FIBRINOGEN LEVEL | 542 (H) | 200 - 450 mg/dL | + + + + + + + | Specimen | Performing Laboratory | + + + | Blood | [facility], [address] | | | [place] [address] | + + + + + | Narrative | + + | INR Therapeutic ranges for full anticoagulation: INR for Venous | | Thromboembolism (2.0 - 3.0) INR INR for most patients with | | mech. valves (2.5 - 3.5) INR APTT Therapeutic | | Range: (75 - 120) sec Heparin levels | | of 0.35 - 0.7 U/mL | + + CBC (HEMOGRAM) ONLY (03/05/2017 6:35 AM) + + + + | Component | Value | Ref Range | + + + + | WHITE CELL COUNT | 7.47 | 3.50 - 10.80 K/cu mm | + + + + | RED CELL COUNT | 2.88 (L) | 4.00 - 5.20 M/cu mm | + + + + | HEMOGLOBIN | 9.2 (L) | 12.0 - 16.0 g/dL | + + + + | HEMATOCRIT | 27.2 (L) | 36.0 - 46.0 % | + + + + | MCV | 94.4 | 80.0 - 96.0 fL | + + + + | MCHC | 33.8 | 33.0 - 35.5 g/dL | + + + + | RDW SD | 47.8 (H) | 35.1 - 46.3 fL | + + + + | PLATELET COUNT | 14 (L) | 150 - 400 K/cu mm | + + + + | MPV | 9.8 | 9.7 - 12.3 fL | + + + + | NRBC% | 0.0 | 0.0 - 0.3 % | + + + + | NRBC# | 0.00 | 0.00 - 0.02 K/cu mm | + + + + + + + | Specimen | Performing Laboratory | + + + | Blood | [facility], [address] [place] [address] RD | | | [place] [address] | + + + URIC ACID, PLASMA (03/05/2017 6:35 AM) + +-------+ + | Component | Value | Ref Range | + +-------+ + | URIC ACID, PLASMA | 3.2 | 2.5 - 6.2 mg/dL | | (LAB) | | | + +-------+ + + + + | Specimen | Performing Laboratory | + + + | Blood | [facility], [facility] [address] | | | [place] [address] | + + + RENAL FUNCTION SET (NA,K,CL,CO2,BUN,CREAT,GLUC,CA,PHOS,ALB ) (03/05/2017 6:35 AM) + + + + | Component | Value | Ref Range | + + + + | GLUCOSE, PLASMA | 120 (H) | 70 - 99 mg/dL | | (LAB) | | | + + + + | BUN, PLASMA (LAB) | 8 | 6 - 20 mg/dL | + + + + | CREATININE PLASMA | 0.47 (L) | 0.60 - 1.10 mg/dL | | (LAB) | | | + + + + | EGFR - | >60 | >60 mL/min | | UKRAINIAN | | | + + + + | EGFR NON | >60 | >60 mL/min | | -UKRAINIAN | | | + + + + | SODIUM, PLASMA (LAB) | 138 | 136 - 145 mmol/L | + + + + | POTASSIUM, PLASMA | 3.6 | 3.4 - 5.0 mmol/L | | (LAB) | | | + + + + | CHLORIDE, PLASMA | 103 | 97 - 108 mmol/L | | (LAB) | | | + + + + | TOTAL CO2, PLASMA | 27 | 21 - 32 mmol/L | | (LAB) | | | + + + + | CALCIUM, PLASMA | 8.2 (L) | 8.6 - 10.2 mg/dL | | (LAB) | | | + + + + | CALCIUM(ALB | 9.4 | 8.6 - 10.2 mg/dL | | CORRECTED) | | | + + + + | ALBUMIN, PLASMA | 2.5 (L) | 3.5 - 4.7 g/dL | | (LAB) | | | + + + + | PHOSPHORUS, PLASMA | 2.5 | 2.4 - 4.7 mg/dL | | (LAB) | | | + + + + | POTASSIUM CMNT | No Hemo | | + + + + | ANION GAP | 8 | mmol/L | + + + + | ANION GAP(ALB | 11 | 4 - 11 mmol/L | | CORRECTED) | | | + + + + + + + | Specimen | Performing Laboratory | + + + | Blood | [facility], [address] [address] [facility] | | | [place] [address] | + + + + + | Narrative | + + | Adult glucose reference range change effective 7-12-17. GFR is estimated using the | | MDRD equation recommended by the National Kidney Disease Education Program. | | Estimated GFR Interpretive Information: <60 mL/min/1.73 sq | | m Chronic Kidney Disease <15 mL/min/1.73 sq | | m Kidney Failure Estimated GFR greater that 60 mL/min/1.73 | | sq m is of limited clinical value. The MDRD equation is not valid in the following | | situations: - Patients under 18 years of age - Severe malnutrition or obesity - | | Vegetarian diet - Rapidly changing kidney function | + + CBC ONLY (03/05/2017 6:35 AM) + + + | Specimen | Performing Laboratory | + + + | Blood | | + + + + + | Narrative | + + | The following orders were created for panel order CBC ONLY. | | Procedure | | Abnormality Status | | --------- | | ------ CBC (HEMOGRAM) | | ONLY[[id number]] Abnormal Final | | result Please view results for these tests on the | | individual orders. | + + PRODUCT - PLATELET PHERESIS LEUKOREDUCED (03/05/2017 1:43 AM) + + + + | Component | Value | Ref Range | + + + + | PRODUCT DESCRIPTION | PLATELETS PHERESIS, LEUKOCYTE REDUCED, | | | | IRRADIATED | | + + + + | PRODUCT UNIT # | [id number] | | + + + + | UNIT ABO | O | | + + + + | UNIT RH | POS | | + + + + | STATUS OF UNIT | Presumed Transfused | | + + + + | EXPIRATION DATE | [id number] | | + + + + | BLOOD TYPE BARCODE | 5100 | | + + + + | BLOOD PRODUCT CODE | [id number] | | + + + + + + + | Specimen | Performing Laboratory | + + + | | [facility] TRANSF[facility] MEDICINE [address] [place] [address] | | | [place] [address] | + + + MANUAL DIFFERENTIAL (03/04/2017 11:30 PM) + + + + | Component | Value | Ref Range | + + + + | NEUTROPHIL % | 10.5 (L) | 50.0 - 70.0 % | + + + + | LYMPHOCYTE % | 14.9 (L) | 18.0 - 42.0 % | + + + + | MONOCYTE % | 7.0 | 3.5 - 9.0 % | + + + + | EOSINOPHIL % | 0.0 (L) | 1.0 - 3.0 % | + + + + | BASOPHIL % | 0.0 | 0.0 - 2.0 % | + + + + | IMMATURE | 0.0Comment: Immature Granulocytes (IG) | 0.0 - 0.6 % | | GRANULOCYTE% | include metamyelocytes, myelocytes and | | | | promyelocytes. Bands are not included in | | | | the IG count. Bands are included in the | | | | neutrophil count. | | + + + + | ATYPICAL CELL % | 67.6 ()Comment: Atypical Cells with fine | 0.0 % | | | chromatin, high N-C ratio, prominent | | | | nucleoli and dark blue cytoplasm. | | + + + + | NEUTROPHIL # | 0.80 (L) | 1.80 - 7.70 K/cu mm | + + + + | LYMPHOCYTE # | 1.14 | 1.00 - 4.80 K/cu mm | + + + + | MONOCYTE # | 0.54 | 0.10 - 0.90 K/cu mm | + + + + | EOSINOPHIL # | 0.00 | 0.00 - 0.50 K/cu mm | + + + + | BASOPHIL # | 0.00 | 0.00 - 0.10 K/cu mm | + + + + | IMMATURE | 0.00 | 0.00 - 0.03 K/cu mm | | GRANULOCYTE# | | | + + + + | ATYPICAL CELLS # | 5.18 | K/cu mm | + + + + + + + | Specimen | Performing Laboratory | + + + | Blood | [facility], [address] [address] [place] [address] | | | [place] [address] | + + + + + | Narrative | + + | Immature Granulocytes (IG) include metamyelocytes, myelocytes and | | promyelocytes. Bands are not included in the IG count. Bands are included in the | | neutrophil count. | + + CBC AND AUTO DIFF (03/04/2017 11:30 PM) + + + + | Component | Value | Ref Range | + + + + | WHITE CELL COUNT | 7.66 | 3.50 - 10.80 K/cu mm | + + + + | RED CELL COUNT | 2.72 (L) | 4.00 - 5.20 M/cu mm | + + + + | HEMOGLOBIN | 8.5 (L) | 12.0 - 16.0 g/dL | + + + + | HEMATOCRIT | 25.6 (L) | 36.0 - 46.0 % | + + + + | MCV | 94.1 | 80.0 - 96.0 fL | + + + + | MCHC | 33.2 | 33.0 - 35.5 g/dL | + + + + | RDW SD | 44.7 | 35.1 - 46.3 fL | + + + + | PLATELET COUNT | 5 (LL) | 150 - 400 K/cu mm | + + + + | MPV | Comment: Not Measured | 9.7 - 12.3 fL | + + + + | NRBC% | 0.0 | 0.0 - 0.3 % | + + + + | NRBC# | 0.00 | 0.00 - 0.02 K/cu mm | + + + + + + + | Specimen | Performing Laboratory | + + + | Blood | [facility], [address] | | | [place] [address] | + + + URIC ACID, PLASMA (03/04/2017 11:30 PM) + +-------+ + | Component | Value | Ref Range | + +-------+ + | URIC ACID, PLASMA | 3.4 | 2.5 - 6.2 mg/dL | | (LAB) | | | + +-------+ + + + + | Specimen | Performing Laboratory | + + + | Blood | [facility], [address] [address] [facility] | | | [place] [address] | + + + RENAL FUNCTION SET (NA,K,CL,CO2,BUN,CREAT,GLUC,CA,PHOS,ALB ) (03/04/2017 11:30 PM) + + + + | Component | Value | Ref Range | + + + + | GLUCOSE, PLASMA | 117 (H) | 70 - 99 mg/dL | | (LAB) | | | + + + + | BUN, PLASMA (LAB) | 9 | 6 - 20 mg/dL | + + + + | CREATININE PLASMA | 0.43 (L) | 0.60 - 1.10 mg/dL | | (LAB) | | | + + + + | EGFR - | >60 | >60 mL/min | | UKRAINIAN | | | + + + + | EGFR NON | >60 | >60 mL/min | | -UKRAINIAN | | | + + + + | SODIUM, PLASMA (LAB) | 136 | 136 - 145 mmol/L | + + + + | POTASSIUM, PLASMA | 3.7 | 3.4 - 5.0 mmol/L | | (LAB) | | | + + + + | CHLORIDE, PLASMA | 100 | 97 - 108 mmol/L | | (LAB) | | | + + + + | TOTAL CO2, PLASMA | 26 | 21 - 32 mmol/L | | (LAB) | | | + + + + | CALCIUM, PLASMA | 7.6 (L) | 8.6 - 10.2 mg/dL | | (LAB) | | | + + + + | CALCIUM(ALB | 9.0 | 8.6 - 10.2 mg/dL | | CORRECTED) | | | + + + + | ALBUMIN, PLASMA | 2.3 (L) | 3.5 - 4.7 g/dL | | (LAB) | | | + + + + | PHOSPHORUS, PLASMA | 2.6 | 2.4 - 4.7 mg/dL | | (LAB) | | | + + + + | POTASSIUM CMNT | No Hemo | | + + + + | ANION GAP | 10 | mmol/L | + + + + | ANION GAP(ALB | 14 (H) | 4 - 11 mmol/L | | CORRECTED) | | | + + + + + + + | Specimen | Performing Laboratory | + + + | Blood | [facility], [address] [address] [facility] | | | [place] [address] | + + + + + | Narrative | + + | Adult glucose reference range change effective 712-17. GFR is estimated using the | | MDRD equation recommended by the National Kidney Disease Education Program. | | Estimated GFR Interpretive Information: <60 mL/min/1.73 sq | | m Chronic Kidney Disease <15 mL/min/1.73 sq | | m Kidney Failure Estimated GFR greater that 60 mL/min/1.73 | | sq m is of limited clinical value. The MDRD equation is not valid in the following | | situations: - Patients under 18 years of age - Severe malnutrition or obesity - | | Vegetarian diet - Rapidly changing kidney function | + + CBC, WITH DIFFERENTIAL (03/04/2017 11:30 PM) + + + | Specimen | Performing Laboratory | + + + | Blood | | + + + + + | Narrative | + + | The following orders were created for panel order CBC, WITH DIFFERENTIAL. | | Procedure | | Abnormality Status | | --------- | | ------ CBC AND AUTO | | DIFF[[id number]] Abnormal Final | | result MANUAL | | DIFFERENTIAL[[id number]] Abnormal Final | | result Please view results for these tests on the | | individual orders. | + + PHOSPHORUS, PLASMA (03/04/2017 11:30 PM) + +-------+ + | Component | Value | Ref Range | + +-------+ + | PHOSPHORUS, PLASMA | 2.6 | 2.4 - 4.7 mg/dL | | (LAB) | | | + +-------+ + + + + | Specimen | Performing Laboratory | + + + | Blood | [facility], [address] [facility] | | | [place] [address] | + + + MAGNESIUM, PLASMA (03/04/2017 11:30 PM) + +-------+ + | Component | Value | Ref Range | + +-------+ + | MAGNESIUM,PLASMA | 2.2 | 1.6 - 2.6 mg/dL | + +-------+ + + + + | Specimen | Performing Laboratory | + + + | Blood | [facility], [facility] [address] [facility] [address] | | | [place] [address] | + + + + + | Narrative | + + | Reference range change effective 12/11/16. | + + COMPLETE METABOLIC SET (NA,K,CL,CO2,BUN,CREAT,GLUC,CA,AST,ALT,BILI TOTAL,ALK PHOS,ALB,PROT TOTAL) (03/04/2017 11:30 PM) + + + + | Component | Value | Ref Range | + + + + | GLUCOSE, PLASMA | 117 (H) | 70 - 99 mg/dL | | (LAB) | | | + + + + | BUN, PLASMA (LAB) | 9 | 6 - 20 mg/dL | + + + + | CREATININE PLASMA | 0.43 (L) | 0.60 - 1.10 mg/dL | | (LAB) | | | + + + + | EGFR - | >60 | >60 mL/min | | UKRAINIAN | | | + + + + | EGFR NON | >60 | >60 mL/min | | -UKRAINIAN | | | + + + + | SODIUM, PLASMA (LAB) | 136 | 136 - 145 mmol/L | + + + + | POTASSIUM, PLASMA | 3.7 | 3.4 - 5.0 mmol/L | | (LAB) | | | + + + + | CHLORIDE, PLASMA | 100 | 97 - 108 mmol/L | | (LAB) | | | + + + + | TOTAL CO2, PLASMA | 26 | 21 - 32 mmol/L | | (LAB) | | | + + + + | CALCIUM, PLASMA | 7.6 (L) | 8.6 - 10.2 mg/dL | | (LAB) | | | + + + + | CALCIUM(ALB | 9.0 | 8.6 - 10.2 mg/dL | | CORRECTED) | | | + + + + | BILIRUBIN TOTAL | 0.8 | 0.3 - 1.2 mg/dL | + + + + | TOTAL PROTEIN, | 5.5 (L) | 6.4 - 8.2 g/dL | | PLASMA (LAB) | | | + + + + | ALBUMIN, PLASMA | 2.3 (L) | 3.5 - 4.7 g/dL | | (LAB) | | | + + + + | ALK PHOS | 335 (H) | 42 - 98 U/L | + + + + | AST(SGOT) | 99 (H) | <=41 U/L | + + + + | ALT (SGPT) | 40 | <=60 U/L | + + + + | ANION GAP | 10 | mmol/L | + + + + | ANION GAP(ALB | 14 (H) | 4 - 11 mmol/L | | CORRECTED) | | | + + + + | POTASSIUM CMNT | No Hemo | | + + + + | BILI T CMNT | No Hemo | | + + + + | AST CMNT | No Hemo | | + + + + + + + | Specimen | Performing Laboratory | + + + | Blood | [facility], [address] | | | [place] [address] | + + + + + | Narrative | + + | Adult glucose reference range change effective 7-12-17. GFR is estimated using the | | MDRD equation recommended by the National Kidney Disease Education Program. | | Estimated GFR Interpretive Information: <60 mL/min/1.73 sq | | m Chronic Kidney Disease <15 mL/min/1.73 sq | | m Kidney Failure Estimated GFR greater that 60 mL/min/1.73 | | sq m is of limited clinical value. The MDRD equation is not valid in the following | | situations: - Patients under 18 years of age - Severe malnutrition or obesity - | | Vegetarian diet - Rapidly changing kidney function | + + CULTURE, BLOOD BACTI & YEAST [place] (03/04/2017 9:56 PM) + + + + | Component | Value | Ref Range | + + + + | CULTURE RESULT | Final Report:No Bacteria or Yeast isolated | | | | at 5 days. | | + + + + + + + | Specimen | Performing Laboratory | + + + | Blood - PICC line | [facility], [address] [place] [address] | | | [place] [address] | + + + CULTURE, BLOOD BACTI & YEAST (03/04/2017 9:56 PM) + + + | Specimen | Performing Laboratory | + + + | Blood - PICC line | | + + + + + | Narrative | + + | The following orders were created for panel order CULTURE, BLOOD BACTI & YEAST. | | Procedure | | Abnormality Status | | --------- | | ------ CULTURE, BLOOD | | BACTI & Y...[[id number]] Final | | result Please view results for these tests on the | | individual orders. | + + LACTATE (03/04/2017 9:55 PM) + +-------+ + | Component | Value | Ref Range | + +-------+ + | LACTATE | 0.8 | mmol/L | + +-------+ + + + + | Specimen | Performing Laboratory | + + + | Blood | [facility], [address] [address] [facility] | | | [place] [address] | + + + + + | Narrative | + + | Reference Range: Venous blood:0.5 - 2.2 mmol/L Critical >= 4.0 mmol/L | | Arterial blood:0.5 - 1.6 mmol/L Critical >= 4.0 mmol/L | + + BLOOD GASES, VENOUS - LAB (03/04/2017 9:55 PM) + + + + | Component | Value | Ref Range | + + + + | PH VENOUS | 7.46 (H) | 7.35 - 7.45 | + + + + | PCO2 VENOUS | 38 | 35 - 50 mmHg | + + + + | PO2 VENOUS | 44 | 30 - 55 mmHg | + + + + | HCO3 VENOUS | 27 | 22 - 28 mmol/L | + + + + | BASE EXCESS VENOUS | 3.3 | mmol/L | + + + + | O2 SAT, VENOUS | 82.7 | No range has been | | | | established % | + + + + | TOTAL CO2 VENOUS | 28 | 23 - 29 mmol/L | + + + + + + + | Specimen | Performing Laboratory | + + + | Blood | [facility], [address] [address] [facility] | | | [place] [address] | + + + CT CHEST WO CONTRAST (03/04/2017 3:42 PM) + + + | Specimen | Performing Laboratory | + + + | | [facility] VOICE RECOGNITION | + + + + + | Narrative | + + | EXAM: CT CHEST WO CONTRAST HISTORY: Evaluate new bilateral groundglass | | opacities. AML. Past history of presumed fungal pneumonia | | COMPARISON:03/04/2017, 03/02/2017 radiographs, 05/02/2016, 02/24/[address] | | TECHNIQUE: Helical scanning was obtained of the chest without intravenous contrast and | | reviewed in soft tissue and lung algorithm. Coronal and sagittal images were also | | generated. FINDINGS: Left upper extremity PICC terminates in the lower SVC. | | Stable heterogeneous enlargement of the left thyroid lobe is again noted. The heart | | and great vessels are unremarkable. No pericardial effusion. Scattered mediastinal | | lymph nodes are again seen, likely reactive. There are diffuse bilateral | | groundglass opacities with relative sparing of the lung periphery. There is mild | | confluent consolidation in the lower lobes, again with peripheral sparing. These | | findings are new compared with 03/02/2017. A trace left pleural effusion is | | present. No pneumothorax. The spleen is mildly enlarged with posterior peripheral | | wedge hypodensity likely representing prior infarct. The remainder of the visualized | | upper abdomen is unremarkable. No acute fracture or suspicious osseous lesion. | | IMPRESSION: Extensive bilateral ground glass and consolidative opacities are new | | compared to 03/02/2017. Primary differential considerations include opportunistic | | infection such as viral or pneumocystis, diffuse alveolar hemorrhage and acute pulmonary | | drug toxicity. I have personally reviewed the images and, if necessary, edited | | the report. I agree with the report as now presented. | + + + + | Procedure Note | + + | Service Account, Radiant Res In Interface - 03/04/2017 4:42 PM PST EXAM: CT CHEST WO | | CONTRAST HISTORY: Evaluate new bilateral groundglass opacities. AML. Past history of | | presumed fungal pneumoniaCOMPARISON:03/04/2017, 03/02/2017 radiographs, 05/02/2016, | | 02/24/2016 chest CTTECHNIQUE: Helical scanning was obtained of the chest without | | intravenous contrast and reviewed in soft tissue and lung algorithm. Coronal and | | sagittal images were also generated.FINDINGS:Left upper extremity PICC terminates in the | | lower SVC.Stable heterogeneous enlargement of the left thyroid lobe is again noted. | | The heart and great vessels are unremarkable. No pericardial effusion. Scattered | | mediastinal lymph nodes are again seen, likely reactive.There are diffuse bilateral | | groundglass opacities with relative sparing of the lung periphery. There is mild | | confluent consolidation in the lower lobes, again with peripheral sparing. These | | findings are new compared with 03/02/2017. A trace left pleural effusion is present. No | | pneumothorax.The spleen is mildly enlarged with posterior peripheral wedge hypodensity | | likely representing prior infarct. The remainder of the visualized upper abdomen is | | unremarkable.No acute fracture or suspicious osseous lesion.IMPRESSION:Extensive | | bilateral ground glass and consolidative opacities are new compared to 03/02/2017. | | Primary differential considerations include opportunistic infection such as viral or | | pneumocystis, diffuse alveolar hemorrhage and acute pulmonary drug toxicity.I have | | personally reviewed the images and, if necessary, edited the report. I agree with the | | report as now presented. | | | |IMPRESSION: | | | |Extensive bilateral ground glass and consolidative opacities are new compared to 03/02/2017. Primary differential considerations include opportunistic infection such as viral or pneum ocystis, diffuse alveolar | |hemorrhage and acute pulmonary drug toxicity. | | | | | |I have personally reviewed the images and, if necessary, edited the report. I agree with t he report as now presented. | + + CBC (HEMOGRAM) ONLY (03/04/2017 2:41 PM) + + + + | Component | Value | Ref Range | + + + + | WHITE CELL COUNT | 10.59 | 3.50 - 10.80 K/cu mm | + + + + | RED CELL COUNT | 2.57 (L) | 4.00 - 5.20 M/cu mm | + + + + | HEMOGLOBIN | 8.2 (L) | 12.0 - 16.0 g/dL | + + + + | HEMATOCRIT | 24.6 (L) | 36.0 - 46.0 % | + + + + | MCV | 95.7 | 80.0 - 96.0 fL | + + + + | MCHC | 33.3 | 33.0 - 35.5 g/dL | + + + + | RDW SD | 49.0 (H) | 35.1 - 46.3 fL | + + + + | PLATELET COUNT | 11 (L) | 150 - 400 K/cu mm | + + + + | MPV | 10.1 | 9.7 - 12.3 fL | + + + + | NRBC% | 0.0 | 0.0 - 0.3 % | + + + + | NRBC# | 0.00 | 0.00 - 0.02 K/cu mm | + + + + + + + | Specimen | Performing Laboratory | + + + | Blood | [facility], [address] [place] [address] | | | [place] [address] | + + + URIC ACID, PLASMA (03/04/2017 2:41 PM) + +-------+ + | Component | Value | Ref Range | + +-------+ + | URIC ACID, PLASMA | 3.2 | 2.5 - 6.2 mg/dL | | (LAB) | | | + +-------+ + + + + | Specimen | Performing Laboratory | + + + | Blood | [facility], [address] [address] [facility] | | | [place] [address] | + + + RENAL FUNCTION SET (NA,K,CL,CO2,BUN,CREAT,GLUC,CA,PHOS,ALB ) (03/04/2017 2:41 PM) + + + + | Component | Value | Ref Range | + + + + | GLUCOSE, PLASMA | 94 | 70 - 99 mg/dL | | (LAB) | | | + + + + | BUN, PLASMA (LAB) | 11 | 6 - 20 mg/dL | + + + + | CREATININE PLASMA | 0.41 (L) | 0.60 - 1.10 mg/dL | | (LAB) | | | + + + + | EGFR - | >60 | >60 mL/min | | UKRAINIAN | | | + + + + | EGFR NON | >60 | >60 mL/min | | -UKRAINIAN | | | + + + + | SODIUM, PLASMA (LAB) | 139 | 136 - 145 mmol/L | + + + + | POTASSIUM, PLASMA | 3.6 | 3.4 - 5.0 mmol/L | | (LAB) | | | + + + + | CHLORIDE, PLASMA | 106 | 97 - 108 mmol/L | | (LAB) | | | + + + + | TOTAL CO2, PLASMA | 26 | 21 - 32 mmol/L | | (LAB) | | | + + + + | CALCIUM, PLASMA | 7.4 (L) | 8.6 - 10.2 mg/dL | | (LAB) | | | + + + + | CALCIUM(ALB | 8.8 | 8.6 - 10.2 mg/dL | | CORRECTED) | | | + + + + | ALBUMIN, PLASMA | 2.2 (L) | 3.5 - 4.7 g/dL | | (LAB) | | | + + + + | PHOSPHORUS, PLASMA | 3.1 | 2.4 - 4.7 mg/dL | | (LAB) | | | + + + + | POTASSIUM CMNT | No Hemo | | + + + + | ANION GAP | 7 | mmol/L | + + + + | ANION GAP(ALB | 11 | 4 - 11 mmol/L | | CORRECTED) | | | + + + + + + + | Specimen | Performing Laboratory | + + + | Blood | [facility], [address] | | | [place] [address] | + + + + + | Narrative | + + | Adult glucose reference range change effective 712-17. GFR is estimated using the | | MDRD equation recommended by the National Kidney Disease Education Program. | | Estimated GFR Interpretive Information: <60 mL/min/1.73 sq | | m Chronic Kidney Disease <15 mL/min/1.73 sq | | m Kidney Failure Estimated GFR greater that 60 mL/min/1.73 | | sq m is of limited clinical value. The MDRD equation is not valid in the following | | situations: - Patients under 18 years of age - Severe malnutrition or obesity - | | Vegetarian diet - Rapidly changing kidney function | + + CBC ONLY (03/04/2017 2:41 PM) + + + | Specimen | Performing Laboratory | + + + | Blood | | + + + + + | Narrative | + + | The following orders were created for panel order CBC ONLY. | | Procedure | | Abnormality Status | | --------- | | ------ CBC (HEMOGRAM) | | ONLY[[id number]] Abnormal Final | | result Please view results for these tests on the | | individual orders. | + + TROY LINE (03/04/2017 12:13 PM) + + | Narrative | + + | Khris Whipple RN 03/04/2017 12:13 PM PICC LINE Performed by: KHRIS WHIPPLE | | Authorized by: ANGELA GOLDBERG PICC/Midline Insertion Procedure Note | | Indications:Chemo Procedure location: Unit:13 Room: 19 Providers: Attending name: | | Attending physically present: No PICC Nurse name: Tamela Whipple RN Assisted by Alexandra | | Dennis Pre-Procedure Consent: written consent obtained Consent given by: Patient | | Patient identity confirmed per protocol: Yes Team Pause: Immediatly prior to the | | procedure a pause per protocol was called. A pause verifies correct patient, | | procedure, equipment, geophysical support specialist and site/side marked as required. CLABSI | | Prevention Bundle: Skin preparation: Chloraprep Protective barrier: | | Cap, Mask, Hand scrub, Gown, Gloves and Full body drape. Cap and mask worn by | | assistive personnel.Sterile Ultrasound techniques (sterile gel, and sterile probe | | cover) used Dressing: Dressing applied prior of | | removal of full barrier drape and hemostatic agent applied Procedure Details | | Patient was placed in appropriate position The vascular anatomy was identified by | | Ultrasound Guidance.wire through the needle, introducer over the wire, then catheter | | through the introducer Tip was placed using TLS (Tip Locating System) and TPS (Tip | | Positioning System). . A non-tunneled PICC Double lumen 5 Fr was placed in the | | Left Arm area Basilic vein. Catheter lot number: [id number] with a length of 55 cm | | was selected and trimmed 6 to a remaining length of 49 cm All ports aspirated | | for blood and flushed with saline Power-injectable line: yes Attempts 1 | | attempt(s) were made Complications None PICC catheter tip location Chest | | radiograph ordered to verify placement and Line verified by radiograph Adjustments | | made after chest film obtained: none External measurement of catheter exposed: 1 cm. | | PICC catheter tip location: Distal SVC Estimated blood loss: <10mL | + + X-RAY PORTABLE CHEST 1 VIEW (03/04/2017 11:47 AM) + + + | Specimen | Performing Laboratory | + + + | | [facility] VOICE RECOGNITION | + + + + + | Narrative | + + | EXAM: NE CHEST 1 VIEW HISTORY: Evaluate PICC placement. AML. COMPARISON: | | 03/02/17 FINDINGS: Left sided PICC tip terminates in the lower superior vena cava | | approximately 1 cm above the cavoatrial junction. There are extensive bilateral | | ground glass opacities predominantly within the perihilar regions. Cardiomediastinal | | silhouette is stable. There is no pneumothorax. No definite pleural effusion. | | IMPRESSION: Left upper extremity PICC tip in the lower superior vena cava, | | approximately 1 cm above the cavoatrial junction. Increased extensive bilateral | | groundglass opacities predominantly in the perihilar regions. Given the significant | | change from prior, pulmonary edema should be considered. Opportunistic infection or | | diffuse alveolar hemorrhage could be considered in the appropriate clinical setting. | | I have personally reviewed the images and, if necessary, edited the report. I | | agree with the report as now presented. | + + + + | Procedure Note | + + | Service Account, Third Age In Interface - 03/04/2017 12:06 PM PST EXAM: NE CHEST 1 | | VIEW HISTORY: Evaluate PICC placement. AML.COMPARISON: 03/02/17FINDINGS: Left sided | | PICC tip terminates in the lower superior vena cava approximately 1 cm above the | | cavoatrial junction.There are extensive bilateral ground glass opacities predominantly | | within the perihilar regions. Cardiomediastinal silhouette is stable. There is no | | pneumothorax. No definite pleural effusion.IMPRESSION: Left upper extremity PICC tip in | | the lower superior vena cava, approximately 1 cm above the cavoatrial | | junction.Increased extensive bilateral groundglass opacities predominantly in the | | perihilar regions. Given the significant change from prior, pulmonary edema should be | | considered. Opportunistic infection or diffuse alveolar hemorrhage could be considered | | in the appropriate clinical setting.I have personally reviewed the images and, if | | necessary, edited the report. I agree with the report as now presented. | |IMPRESSION: | | | |Left upper extremity PICC tip in the lower superior vena cava, approximately 1 cm above the cavoatrial junction. | | | |Increased extensive bilateral groundglass opacities predominantly in the perihilar regions. Given the significant change from prior, pulmonary edema should be considered. Opportunis tic infection or diffuse alveolar | |hemorrhage could be considered in the appropriate clinical setting. | | | | | |I have personally reviewed the images and, if necessary, edited the report. I agree with t kelly report as now presented. | + + PRODUCT - PLATELET PHERESIS LEUKOREDUCED (03/04/2017 10:39 AM) + + + + | Component | Value | Ref Range | + + + + | PRODUCT DESCRIPTION | PLATELETS PHERESIS, LEUKOCYTE REDUCED, | | | | IRRADIATED | | + + + + | PRODUCT UNIT # | [id number] | | + + + + | UNIT ABO | O | | + + + + | UNIT RH | POS | | + + + + | STATUS OF UNIT | Presumed Transfused | | + + + + | EXPIRATION DATE | [id number] | | + + + + | BLOOD TYPE BARCODE | 5100 | | + + + + | BLOOD PRODUCT CODE | [id number] | | + + + + + + + | Specimen | Performing Laboratory | + + + | | [facility], TRANSF[facility]ION MEDICINE [address] [facility] | | | [place] [address] | + + + PRODUCT - PLATELET PHERESIS LEUKOREDUCED (03/04/2017 10:18 AM) + + + + | Component | Value | Ref Range | + + + + | PRODUCT DESCRIPTION | PLATELETS PHERESIS, LEUKOCYTE REDUCED, | | | | IRRADIATED | | + + + + | PRODUCT UNIT # | [id number] | | + + + + | UNIT ABO | AB | | + + + + | UNIT RH | POS | | + + + + | STATUS OF UNIT | Returned to Blood Bank | | + + + + | EXPIRATION DATE | [id number] | | + + + + | BLOOD TYPE BARCODE | 8400 | | + + + + | BLOOD PRODUCT CODE | [id number] | | + + + + + + + | Specimen | Performing Laboratory | + + + | | [facility], TRANSFUSION MEDICINE [address] | | | [place] [address] | + + + TRANSTHORACIC ECHOCARDIOGRAM WITH STRAIN - CARDIO MECHANICS, ADULT (03/04/2017 10:07 AM) + + + + | Component | Value | Ref Range | + + + + | BIPLANE, EF | 71 | | + + + + | EJECTION FRACTION | 70 to 75 | | + + + + | LVIDD | 4.6 | | + + + + | MV A VMAX | 1.4 | | + + + + | MV E? | 0.1 | | + + + + | MV E VMAX | 1.0 | | + + + + | RVSP | 25 | | + + + + | RV TAPSE | 2.8 | | + + + + | RV TDI S? | 17.0 | | + + + + | EJECTION FRACTION | 72.5 | % | | RANGE MEAN VALUE | | | + + + + + + + | Specimen | Performing Laboratory | + + + | | [facility] [address] [place] [address] | | | [place] [address] | + + + + + | Narrative | + + | [facility] Adult Echocardiography [facility] | | [facility] [place], [place] [address] Ph: | | Pt Name: RHEA HUTCHISON Study | | Date/Time 03/04/2017 / 10:07:17 AM | | Most recent prior: 02/16/2016 Acc #: [id number] No. previous | | echos: 1 : 1965 51 years Heart Rate: 117 bpm | | Height: 63.0 in Blood Pressure: 116/77 mm/Hg | | Weight: 203.0 lb Gender: F | | BSA: 1.95 m2 Order ID: [id number] | | Scale Clerk: Dago Peter RUST Referring Provider: Cierra Flowers Patient | | Location: 13K Modalities Performed: 2D, Color flow, Spectral Doppler. Study Quality: | | Good. 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 The left | | ventricular cavity size is | | normal. 2. The ejection | | fraction is | | normal. | | 3. Right ventricular size, thickness and function are | | normal. 4. Compared to the most recent exam dated, | | 02/16/2016, there are no significant | | changes. | | | | | | | | + + | | LV Function & Strain Data Table: + + +-------+ Study Date:LVEF | | (Biplane) GLS + + +-------+ 03/04/2017 70.6 | | % -19.3 % + + +-------+ + +------+-------+ | | 02/16/201674.8 %-24.0 % + +------+-------+ Description of Findings: | | Cardiac Rhythm: Tachycardia. Left Ventricle: The left ventricular cavity size is | | normal. Visually estimated left ventricular ejection fraction is 70 - 75%. The global | | longitudinal strain is -19.3 %. The ejection fraction is 70.6 % as measured by | | Delacruz's biplane method. The ejection fraction is normal. Left Ventricular Wall | | Motion: Left ventricular systolic thickening is normal in all segments. Atria: Left | | atrial size is mildly dilated. Normal right atrium. Right Ventricle: Right ventricular | | size, thickness and function are normal. TAPSE measures 2.8cm. The RV TDI s' velocity | | is 17cm/sec. Aortic Valve: The aortic valve is trileaflet and normal in structure and | | function. No indication of aortic valve regurgitation. Mitral Valve: The mitral valve | | is structurally normal. No evidence of mitral valve regurgitation. Tricuspid Valve: | | The tricuspid valve is structurally normal. Trace tricuspid regurgitation. The | | tricuspid regurgitant velocity is 2.37 m/s, and with an assumed right atrial pressure | | of 3 mmHg, the estimated right ventricular systolic pressure is normal at 25.5 mmHg. | | Pulmonic Valve: The pulmonic valve is structurally normal. Venous: Inferior vena cava | | is normal with normal inspiratory collapse. Pericardium: No pericardial effusion is | | seen. 2D Measurements Doppler | | Measurements 2D NL Values | | Aortic Mitral LVID(d) 4.59 | | cm (3.5-5.7cm) Max Duglas 2.25 m/s Peak E 1.00 m/s | | IVS(d) 1.14 cm (0.6-1.1cm) Mean grad 9.4 mmHg Peak A | | 1.38 m/s LVPW(d) 1.09 cm (0.6-1.1cm) LVOT Duglas 1.87 m/s E/A | | Ratio 0.72 LA vol A/L BP 70.7 | | ml (40-73ml) TDI (E/e') 9.1 LA vol | | A/L index 36.3 ml/m2 (16-34) LVOT Diam 2.00 cm MV mn gd LA vol MOD | | BP 67.9 ml (40-73ml) Tricuspid Pulmonic LA vol MOD | | index 34.9 ml/m2 (16-34) TR Vmax 2.37 m/s PV Vmax | | RA | | Press 3 mmHg RVOT VTI Biplane EF 70.6 | | % RVSP 25 mmHg PV mn gd GLS | | % -19.3 % | | Aorta: | | Index: Evaluation of chamber size and | | geometry is accomplished through the incorporation of linear, volumetric, and indexed | | values Report electronically signed by: [id number] Kar Connell MD (03/04/2017, | | 11:59:51 AM) Final (Updated) | + + + + | Procedure Note | + + | Interface, Ecg Results - 03/04/2017 12:00 PM [facility] | | [facility] Echocardiography Laboratory [address] [place] [address] | | [place], [place] [address] Pt Name: RHEA HUTCHISON | | Study Date/Time 03/04/2017 / 10:07:17 AMMRN: [id number] [facility] | | recent prior: 02/16/2016Acc #: [id number] No. previous echos: 1DOB: | | 1965 51 years Heart Rate: 117 bpmHeight: 63.0 in Blood | | Pressure: 116/77 mm/HgWeight: 203.0 lb Gender: FBSA: | | 1.95 m2 Order ID: [id number] Scale Clerk: Dago Peter RDCSReferring | | Provider: Cierra Moore Location: [id number] Performed: 2D, Color | | flow, Spectral Doppler.Study Quality: Good.Exam Indication: Cardiotoxic | | therapiesHistory: 50 year old woman with history of COPD, depression, bladder spasms, | | hypothyroidism and AML s/p induction 7+3+dasatinib and MiDAC consolidation (Apr 2016) | | who presents with AML recurrence Patient history has been obtained from the EHR | | Transthoracic Echocardiographic | | Report+ +Fi | | nal Impressions: | | | | 1. The left ventricular cavity | | size is normal. 2. The ejection fraction is normal. | | 3. Right ventricular size, thickness and function | | are normal. 4. Compared to the most recent exam dated, 02/16/2016, there | | are no significant changes. | | | | + + LV | | Function & Strain Data Table:+ + +-------+Study Date:LVEF | | (Biplane) GLS + + +-------+03/04/2017 70.6 % -19.3 | | %+ + +-------++ +------+-------+02/16/201674.8 %-24.0 | | %+ +------+-------+ Description of Findings: Cardiac Rhythm: Tachycardia.Left | | Ventricle: The left ventricular cavity size is normal. Visually estimated left | | ventricular ejection fraction is 70 - 75%. The global longitudinal strain is -19.3 %. | | The ejection fraction is 70.6 % as measured by Delacruz's biplane method. The ejection | | fraction is normal.Left Ventricular Wall Motion: Left ventricular systolic thickening is | | normal in all segments.Atria: Left atrial size is mildly dilated. Normal right | | atrium.Right Ventricle: Right ventricular size, thickness and function are normal. TAPSE | | measures 2.8cm. The RV TDI s' velocity is 17cm/sec.Aortic Valve: The aortic valve is | | trileaflet and normal in structure and function. No indication of aortic valve | | regurgitation.Mitral Valve: The mitral valve is structurally normal. No evidence of | | mitral valve regurgitation.Tricuspid Valve: The tricuspid valve is structurally normal. | | Trace tricuspid regurgitation. The tricuspid regurgitant velocity is 2.37 m/s, and with | | an assumed right atrial pressure of 3 mmHg, the estimated right ventricular systolic | | pressure is normal at 25.5 mmHg.Pulmonic Valve: The pulmonic valve is structurally | | normal.Venous: Inferior vena cava is normal with normal inspiratory | | collapse.Pericardium: No pericardial effusion is seen.2D Measurements | | Doppler Measurements 2D NL Values Aortic | | MitralLVID(d) 4.59 cm (3.5-5.7cm) Max Duglas 2.25 m/s Peak E 1.00 | | m/sIVS(d) 1.14 cm (0.6-1.1cm) Mean grad 9.4 mmHg Peak A 1.38 m/sLVPW(d) | | 1.09 cm (0.6-1.1cm) LVOT Duglas 1.87 m/s E/A Ratio 0.72LA vol A/L BP 70.7 | | ml (40-73ml) TDI (E/e') 9.1LA vol A/L index 36.3 ml/m2 (16-34) | | LVOT Diam 2.00 cm MV mn gdLA vol MOD BP 67.9 ml (40-73ml) Tricuspid | | PulmonicLA vol MOD index 34.9 ml/m2 (16-34) TR Vmax 2.37 m/s PV Vmax | | RA Press 3 mmHg RVOT VTIBiplane EF 70.6 % | | RVSP 25 mmHg PV mn gdGLS % -19.3 % | | Aorta: Index:Evaluation of chamber size and geometry is | | accomplished through the incorporation of linear, volumetric, and indexed values Report | | electronically signed by: [id number] Kar Connell MD (03/04/2017, 11:59:51 AM) | | Final (Updated) | |Left Ventricle: The left ventricular cavity size is normal. Visually estimated left | |ventricular ejection fraction is 70 - 75%. The global longitudinal strain is -19.3 %. | | The ejection fraction is 70.6 % as measured by Delacruz's biplane method. The | |ejection fraction is normal. | |Left Ventricular Wall Motion: Left ventricular systolic thickening is normal in all | |segments. | |Atria: Left atrial size is mildly dilated. Normal right atrium. | |Right Ventricle: Right ventricular size, thickness and function are normal. TAPSE | |measures 2.8cm. The RV TDI s' velocity is 17cm/sec. | |Aortic Valve: The aortic valve is trileaflet and normal in structure and function. No | | indication of aortic valve regurgitation. | |Mitral Valve: The mitral valve is structurally normal. No evidence of mitral valve | |regurgitation. | |Tricuspid Valve: The tricuspid valve is structurally normal. Trace tricuspid | |regurgitation. The tricuspid regurgitant velocity is 2.37 m/s, and with an assumed | |right atrial pressure of 3 mmHg, the estimated right ventricular systolic pressure is | | normal at 25.5 mmHg. | |Pulmonic Valve: The pulmonic valve is structurally normal. | |Venous: Inferior vena cava is normal with normal inspiratory collapse. | |Pericardium: No pericardial effusion is seen. | |2D Measurements Doppler Measurements | | | | 2D NL Values Aortic Mitral | |LVID(d) 4.59 cm (3.5-5.7cm) Max Duglas 2.25 m/s Peak E 1.00 m/s | |IVS(d) 1.14 cm (0.6-1.1cm) Mean grad 9.4 mmHg Peak A 1.38 m/s | |LVPW(d) 1.09 cm (0.6-1.1cm) LVOT Duglas 1.87 m/s E/A Ratio 0.72 | |LA vol A/L BP 70.7 ml (40-73ml) TDI (E/e') 9.1 | |LA vol A/L index 36.3 ml/m2 (16-34) LVOT Diam 2.00 cm MV mn gd | |LA vol MOD BP 67.9 ml (40-73ml) Tricuspid Pulmonic | |LA vol MOD index 34.9 ml/m2 (16-34) TR Vmax 2.37 m/s PV Vmax | | RA Press 3 mmHg RVOT VTI | |Biplane EF 70.6 % RVSP 25 mmHg PV mn gd | |GLS % -19.3 % | | Aorta: Index: | |Evaluation of chamber size and geometry is accomplished through the incorporation of | |linear, volumetric, and indexed values | | | |Report electronically signed by: [id number] Kar Connell MD (03/04/2017, 11:59:51 | |AM) | | | | | | | | Final (Updated) | + + VAT: PICC INSERTION W/US (03/04/2017 8:44 AM) + + | Narrative | + + | See procedure note. | + + CBC (HEMOGRAM) ONLY (03/04/2017 8:36 AM) + + + + | Component | Value | Ref Range | + + + + | WHITE CELL COUNT | 15.36 (H) | 3.50 - 10.80 K/cu mm | + + + + | RED CELL COUNT | 2.89 (L) | 4.00 - 5.20 M/cu mm | + + + + | HEMOGLOBIN | 9.3 (L) | 12.0 - 16.0 g/dL | + + + + | HEMATOCRIT | 27.1 (L) | 36.0 - 46.0 % | + + + + | MCV | 93.8 | 80.0 - 96.0 fL | + + + + | MCHC | 34.3 | 33.0 - 35.5 g/dL | + + + + | RDW SD | 48.1 (H) | 35.1 - 46.3 fL | + + + + | PLATELET COUNT | 4 (LL) | 150 - 400 K/cu mm | + + + + | MPV | 9.8 | 9.7 - 12.3 fL | + + + + | NRBC% | 0.0 | 0.0 - 0.3 % | + + + + | NRBC# | 0.00 | 0.00 - 0.02 K/cu mm | + + + + + + + | Specimen | Performing Laboratory | + + + | Blood | [facility], [place] [address] [place] [address] | | | [place] [address] | + + + URIC ACID, PLASMA (03/04/2017 8:36 AM) + +-------+ + | Component | Value | Ref Range | + +-------+ + | URIC ACID, PLASMA | 3.8 | 2.5 - 6.2 mg/dL | | (LAB) | | | + +-------+ + + + + | Specimen | Performing Laboratory | + + + | Blood | [facility], [place] [address] [place] [address] | | | [place] [address] | + + + RENAL FUNCTION SET (NA,K,CL,CO2,BUN,CREAT,GLUC,CA,PHOS,ALB ) (03/04/2017 8:36 AM) + + + + | Component | Value | Ref Range | + + + + | GLUCOSE, PLASMA | 92 | 70 - 99 mg/dL | | (LAB) | | | + + + + | BUN, PLASMA (LAB) | 12 | 6 - 20 mg/dL | + + + + | CREATININE PLASMA | 0.43 (L) | 0.60 - 1.10 mg/dL | | (LAB) | | | + + + + | EGFR - | >60 | >60 mL/min | | UKRAINIAN | | | + + + + | EGFR NON | >60 | >60 mL/min | | -UKRAINIAN | | | + + + + | SODIUM, PLASMA (LAB) | 134 (L) | 136 - 145 mmol/L | + + + + | POTASSIUM, PLASMA | 4.1 | 3.4 - 5.0 mmol/L | | (LAB) | | | + + + + | CHLORIDE, PLASMA | 101 | 97 - 108 mmol/L | | (LAB) | | | + + + + | TOTAL CO2, PLASMA | 25 | 21 - 32 mmol/L | | (LAB) | | | + + + + | CALCIUM, PLASMA | 7.6 (L) | 8.6 - 10.2 mg/dL | | (LAB) | | | + + + + | CALCIUM(ALB | 9.0 | 8.6 - 10.2 mg/dL | | CORRECTED) | | | + + + + | ALBUMIN, PLASMA | 2.3 (L) | 3.5 - 4.7 g/dL | | (LAB) | | | + + + + | PHOSPHORUS, PLASMA | 3.1 | 2.4 - 4.7 mg/dL | | (LAB) | | | + + + + | POTASSIUM CMNT | No Hemo | | + + + + | ANION GAP | 8 | mmol/L | + + + + | ANION GAP(ALB | 12 (H) | 4 - 11 mmol/L | | CORRECTED) | | | + + + + + + + | Specimen | Performing Laboratory | + + + | Blood | [facility], [address] [facility] | | | [place] [address] | + + + + + | Narrative | + + | Adult glucose reference range change effective 7-12-17. GFR is estimated using the | | MDRD equation recommended by the National Kidney Disease Education Program. | | Estimated GFR Interpretive Information: <60 mL/min/1.73 sq | | m Chronic Kidney Disease <15 mL/min/1.73 sq | | m Kidney Failure Estimated GFR greater that 60 mL/min/1.73 | | sq m is of limited clinical value. The MDRD equation is not valid in the following | | situations: - Patients under 18 years of age - Severe malnutrition or obesity - | | Vegetarian diet - Rapidly changing kidney function | + + CBC ONLY (03/04/2017 8:36 AM) + + + | Specimen | Performing Laboratory | + + + | Blood | | + + + + + | Narrative | + + | The following orders were created for panel order CBC ONLY. | | Procedure | | Abnormality Status | | --------- | | ------ CBC (HEMOGRAM) | | ONLY[[id number]] Abnormal Final | | result Please view results for these tests on the | | individual orders. | + + LDH TOTAL, PLASMA (03/04/2017 4:42 AM) + + + + | Component | Value | Ref Range | + + + + | LD TOTAL, PLASMA | 4,670 (H) | <=250 U/L | + + + + | LD CMNT | No Hemo | | + + + + + + + | Specimen | Performing Laboratory | + + + | Blood | [facility] [address] [place] [address] | | | [place] [address] | + + + URIC ACID, PLASMA (03/04/2017 4:42 AM) + +-------+ + | Component | Value | Ref Range | + +-------+ + | URIC ACID, PLASMA | 3.6 | 2.5 - 6.2 mg/dL | | (LAB) | | | + +-------+ + + + + | Specimen | Performing Laboratory | + + + | Blood | [facility], [place] [address] [facility] | | | [place], [place] [address] | + + + RBC MORPHOLOGY (03/03/2017 10:17 PM) + + + + | Component | Value | Ref Range | + + + + | SCHISTOCYTES | 1+ (<1-2cells/HPF) | | + + + + + + + | Specimen | Performing Laboratory | + + + | Blood | [facility], [place] [address] [place] [address] | | | [place] [address] | + + + MANUAL DIFFERENTIAL (03/03/2017 10:17 PM) + + + + | Component | Value | Ref Range | + + + + | NEUTROPHIL % | 7.8 (L) | 50.0 - 70.0 % | + + + + | LYMPHOCYTE % | 8.7 (L) | 18.0 - 42.0 % | + + + + | MONOCYTE % | 11.3 (H) | 3.5 - 9.0 % | + + + + | EOSINOPHIL % | 0.0 (L) | 1.0 - 3.0 % | + + + + | BASOPHIL % | 0.0 | 0.0 - 2.0 % | + + + + | IMMATURE | 0.9 (H)Comment: Immature Granulocytes (IG) | 0.0 - 0.6 % | | GRANULOCYTE% | include metamyelocytes, myelocytes and | | | | promyelocytes. Bands are not included in | | | | the IG count. Bands are included in the | | | | neutrophil count. | | + + + + | ATYPICAL CELL % | 71.3 ()Comment: Atypical Cells with fine | 0.0 % | | | chromatin, high N-C ratio, prominent | | | | nucleoli and dark blue cytoplasm. | | + + + + | NEUTROPHIL # | 2.05 | 1.80 - 7.70 K/cu mm | + + + + | LYMPHOCYTE # | 2.29 | 1.00 - 4.80 K/cu mm | + + + + | MONOCYTE # | 2.97 (H) | 0.10 - 0.90 K/cu mm | + + + + | EOSINOPHIL # | 0.00 | 0.00 - 0.50 K/cu mm | + + + + | BASOPHIL # | 0.00 | 0.00 - 0.10 K/cu mm | + + + + | IMMATURE | 0.24 (H) | 0.00 - 0.03 K/cu mm | | GRANULOCYTE# | | | + + + + | ATYPICAL CELLS # | 18.73 | K/cu mm | + + + + + + + | Specimen | Performing Laboratory | + + + | Blood | [facility], [address] [facility] | | | [place] [address] | + + + + + | Narrative | + + | Immature Granulocytes (IG) include metamyelocytes, myelocytes and | | promyelocytes. Bands are not included in the IG count. Bands are included in the | | neutrophil count. | + + CBC AND AUTO DIFF (03/03/2017 10:17 PM) + + + + | Component | Value | Ref Range | + + + + | WHITE CELL COUNT | 26.27 (H) | 3.50 - 10.80 K/cu mm | + + + + | RED CELL COUNT | 2.88 (L) | 4.00 - 5.20 M/cu mm | + + + + | HEMOGLOBIN | 9.2 (L) | 12.0 - 16.0 g/dL | + + + + | HEMATOCRIT | 27.2 (L) | 36.0 - 46.0 % | + + + + | MCV | 94.4 | 80.0 - 96.0 fL | + + + + | MCHC | 33.8 | 33.0 - 35.5 g/dL | + + + + | RDW SD | 47.8 (H) | 35.1 - 46.3 fL | + + + + | PLATELET COUNT | 12 (L) | 150 - 400 K/cu mm | + + + + | MPV | 13.4 (H) | 9.7 - 12.3 fL | + + + + | NRBC% | 0.1 | 0.0 - 0.3 % | + + + + | NRBC# | 0.02 | 0.00 - 0.02 K/cu mm | + + + + + + + | Specimen | Performing Laboratory | + + + | Blood | [facility], [address] [address] [facility] | | | [place] [address] | + + + CULTURE, BLOOD BACTI & YEAST [facility] (03/03/2017 10:17 PM) + + + + | Component | Value | Ref Range | + + + + | CULTURE RESULT | Final Report:No Bacteria or Yeast isolated | | | | at 5 days. | | + + + + + + + | Specimen | Performing Laboratory | + + + | Blood - Antecubital | [facility], [address] [facility] | | - left | [place] [address] | + + + URIC ACID, PLASMA (03/03/2017 10:17 PM) + +-------+ + | Component | Value | Ref Range | + +-------+ + | URIC ACID, PLASMA | 3.3 | 2.5 - 6.2 mg/dL | | (LAB) | | | + +-------+ + + + + | Specimen | Performing Laboratory | + + + | Blood | [facility], [address] [address] [place] [address] | | | [place] [address] | + + + RENAL FUNCTION SET (NA,K,CL,CO2,BUN,CREAT,GLUC,CA,PHOS,ALB ) (03/03/2017 10:17 PM) + +---------+ + | Component | Value | Ref Range | + +---------+ + | GLUCOSE, PLASMA | 99 | 70 - 99 mg/dL | | (LAB) | | | + +---------+ + | BUN, PLASMA (LAB) | 12 | 6 - 20 mg/dL | + +---------+ + | CREATININE PLASMA | 0.62 | 0.60 - 1.10 mg/dL | | (LAB) | | | + +---------+ + | EGFR - | >60 | >60 mL/min | | UKRAINIAN | | | + +---------+ + | EGFR NON | >60 | >60 mL/min | | -UKRAINIAN | | | + +---------+ + | SODIUM, PLASMA (LAB) | 135 (L) | 136 - 145 mmol/L | + +---------+ + | POTASSIUM, PLASMA | 3.6 | 3.4 - 5.0 mmol/L | | (LAB) | | | + +---------+ + | CHLORIDE, PLASMA | 101 | 97 - 108 mmol/L | | (LAB) | | | + +---------+ + | TOTAL CO2, PLASMA | 29 | 21 - 32 mmol/L | | (LAB) | | | + +---------+ + | CALCIUM, PLASMA | 7.4 (L) | 8.6 - 10.2 mg/dL | | (LAB) | | | + +---------+ + | CALCIUM(ALB | 8.7 | 8.6 - 10.2 mg/dL | | CORRECTED) | | | + +---------+ + | ALBUMIN, PLASMA | 2.4 (L) | 3.5 - 4.7 g/dL | | (LAB) | | | + +---------+ + | PHOSPHORUS, PLASMA | 3.2 | 2.4 - 4.7 mg/dL | | (LAB) | | | + +---------+ + | POTASSIUM CMNT | No Hemo | | + +---------+ + | ANION GAP | 5 | mmol/L | + +---------+ + | ANION GAP(ALB | 9 | 4 - 11 mmol/L | | CORRECTED) | | | + +---------+ + + + + | Specimen | Performing Laboratory | + + + | Blood | [facility], [address] | | | [place] [address] | + + + + + | Narrative | + + | Adult glucose reference range change effective 712-17. GFR is estimated using the | | MDRD equation recommended by the National Kidney Disease Education Program. | | Estimated GFR Interpretive Information: <60 mL/min/1.73 sq | | m Chronic Kidney Disease <15 mL/min/1.73 sq | | m Kidney Failure Estimated GFR greater that 60 mL/min/1.73 | | sq m is of limited clinical value. The MDRD equation is not valid in the following | | situations: - Patients under 18 years of age - Severe malnutrition or obesity - | | Vegetarian diet - Rapidly changing kidney function | + + CBC, WITH DIFFERENTIAL (03/03/2017 10:17 PM) + + + | Specimen | Performing Laboratory | + + + | Blood | | + + + + + | Narrative | + + | The following orders were created for panel order CBC, WITH DIFFERENTIAL. | | Procedure | | Abnormality Status | | --------- | | ------ CBC AND AUTO | | DIFF[[id number]] Abnormal Final | | result MANUAL | | DIFFERENTIAL[[id number]] Abnormal Final | | result RBC | | MORPHOLOGY[[id number]] | | Final result Please view results for these tests on the | | individual orders. | + + PHOSPHORUS, PLASMA (03/03/2017 10:17 PM) + +-------+ + | Component | Value | Ref Range | + +-------+ + | PHOSPHORUS, PLASMA | 3.2 | 2.4 - 4.7 mg/dL | | (LAB) | | | + +-------+ + + + + | Specimen | Performing Laboratory | + + + | Blood | [facility], [place] [address] [place] [address] | | | [place] [address] | + + + MAGNESIUM, PLASMA (03/03/2017 10:17 PM) + +-------+ + | Component | Value | Ref Range | + +-------+ + | MAGNESIUM,PLASMA | 2.4 | 1.6 - 2.6 mg/dL | + +-------+ + + + + | Specimen | Performing Laboratory | + + + | Blood | [facility], [address] [facility] | | | [place] [address] | + + + + + | Narrative | + + | Reference range change effective 12/11/16. | + + COMPLETE METABOLIC SET (NA,K,CL,CO2,BUN,CREAT,GLUC,CA,AST,ALT,BILI TOTAL,ALK PHOS,ALB,PROT TOTAL) (03/03/2017 10:17 PM) + +---------+ + | Component | Value | Ref Range | + +---------+ + | GLUCOSE, PLASMA | 99 | 70 - 99 mg/dL | | (LAB) | | | + +---------+ + | BUN, PLASMA (LAB) | 12 | 6 - 20 mg/dL | + +---------+ + | CREATININE PLASMA | 0.62 | 0.60 - 1.10 mg/dL | | (LAB) | | | + +---------+ + | EGFR - | >60 | >60 mL/min | | UKRAINIAN | | | + +---------+ + | EGFR NON | >60 | >60 mL/min | | -UKRAINIAN | | | + +---------+ + | SODIUM, PLASMA (LAB) | 135 (L) | 136 - 145 mmol/L | + +---------+ + | POTASSIUM, PLASMA | 3.6 | 3.4 - 5.0 mmol/L | | (LAB) | | | + +---------+ + | CHLORIDE, PLASMA | 101 | 97 - 108 mmol/L | | (LAB) | | | + +---------+ + | TOTAL CO2, PLASMA | 29 | 21 - 32 mmol/L | | (LAB) | | | + +---------+ + | CALCIUM, PLASMA | 7.4 (L) | 8.6 - 10.2 mg/dL | | (LAB) | | | + +---------+ + | CALCIUM(ALB | 8.7 | 8.6 - 10.2 mg/dL | | CORRECTED) | | | + +---------+ + | BILIRUBIN TOTAL | 0.8 | 0.3 - 1.2 mg/dL | + +---------+ + | TOTAL PROTEIN, | 5.3 (L) | 6.4 - 8.2 g/dL | | PLASMA (LAB) | | | + +---------+ + | ALBUMIN, PLASMA | 2.4 (L) | 3.5 - 4.7 g/dL | | (LAB) | | | + +---------+ + | ALK PHOS | 295 (H) | 42 - 98 U/L | + +---------+ + | AST(SGOT) | 146 (H) | <=41 U/L | + +---------+ + | ALT (SGPT) | 43 | <=60 U/L | + +---------+ + | ANION GAP | 5 | mmol/L | + +---------+ + | ANION GAP(ALB | 9 | 4 - 11 mmol/L | | CORRECTED) | | | + +---------+ + | POTASSIUM CMNT | No Hemo | | + +---------+ + | BILI T CMNT | No Hemo | | + +---------+ + | AST CMNT | No Hemo | | + +---------+ + + + + | Specimen | Performing Laboratory | + + + | Blood | [facility], [place] [address] | | | [place] [address] | + + + + + | Narrative | + + | Adult glucose reference range change effective 7-12-17. GFR is estimated using the | | MDRD equation recommended by the National Kidney Disease Education Program. | | Estimated GFR Interpretive Information: <60 mL/min/1.73 sq | | m Chronic Kidney Disease <15 mL/min/1.73 sq | | m Kidney Failure Estimated GFR greater that 60 mL/min/1.73 | | sq m is of limited clinical value. The MDRD equation is not valid in the following | | situations: - Patients under 18 years of age - Severe malnutrition or obesity - | | Vegetarian diet - Rapidly changing kidney function | + + CULTURE, BLOOD BACTI & YEAST (03/03/2017 10:17 PM) + + + | Specimen | Performing Laboratory | + + + | Blood | | + + + + + | Narrative | + + | The following orders were created for panel order CULTURE, BLOOD BACTI & YEAST. | | Procedure | | Abnormality Status | | --------- | | ------ CULTURE, BLOOD | | BACTI & Y...[[id number]] Final | | result Please view results for these tests on the | | individual orders. | + + URINE, MICROSCOPIC EXAM (03/03/2017 10:01 PM) + +---------+ + | Component | Value | Ref Range | + +---------+ + | RED CELLS | 2 | 0 - 3 /hpf | + +---------+ + | WHITE CELLS | <1 | 0 - 5 /hpf | + +---------+ + | BACTERIA | None | None /hpf | + +---------+ + | YEAST (LAB) | None | None /hpf | + +---------+ + | SQUAMOUS EPITHELIAL | Few (A) | None /hpf | + +---------+ + | MUCOUS | None | None /hpf | + +---------+ + | TRICHOMONAS | None | None /hpf | + +---------+ + | NON-SQUAMOUS EPITH | None | None /hpf | + +---------+ + | HYALINE CASTS | 0 | 0 - 2 /lpf | + +---------+ + | GRANULAR CASTS | 0 | 0 - 2 /lpf | + +---------+ + | CELLULAR CASTS | 0 | <=0 /lpf | + +---------+ + | TRIPLE P04 CRYSTALS | None | None /hpf | + +---------+ + | CALCIUM OXALATE REJI | None | None /hpf | + +---------+ + | URIC ACID CRYSTALS | None | None /hpf | + +---------+ + | AMORPHOUS CRYSTALS | None | None /hpf | + +---------+ + + + + | Specimen | Performing Laboratory | + + + | Urine | [facility], [address] [place] [address] RD | | | [place] [address] | + + + CBC (HEMOGRAM) ONLY (03/03/2017 3:18 PM) + + + + | Component | Value | Ref Range | + + + + | WHITE CELL COUNT | 32.93 (H) | 3.50 - 10.80 K/cu mm | + + + + | RED CELL COUNT | 3.07 (L) | 4.00 - 5.20 M/cu mm | + + + + | HEMOGLOBIN | 9.7 (L) | 12.0 - 16.0 g/dL | + + + + | HEMATOCRIT | 28.9 (L) | 36.0 - 46.0 % | + + + + | MCV | 94.1 | 80.0 - 96.0 fL | + + + + | MCHC | 33.6 | 33.0 - 35.5 g/dL | + + + + | RDW SD | 47.7 (H) | 35.1 - 46.3 fL | + + + + | PLATELET COUNT | 12 (L) | 150 - 400 K/cu mm | + + + + | MPV | 11.9 | 9.7 - 12.3 fL | + + + + | NRBC% | 0.1 | 0.0 - 0.3 % | + + + + | NRBC# | 0.02 | 0.00 - 0.02 K/cu mm | + + + + + + + | Specimen | Performing Laboratory | + + + | Blood | [facility], [address] [facility] | | | [place] [address] | + + + LEUKEMIA/LYMPHOMA MARKER - BLOOD (LABEL) (03/03/2017 3:18 PM) + + + | Specimen | Performing Laboratory | + + + | Blood | [facility], [facility] [address] [facility] | | | [place] [address] | + + + GENETRAILS AML/MDS GENE MUTATION PANEL, BLOOD (LABEL) (03/03/2017 3:18 PM) + + + + | Component | Value | Ref Range | + + + + | LABEL ONLY - [facility] | Please see lab report for result. | | + + + + + + + | Specimen | Performing Laboratory | + + + | Blood | [facility] [place] [address] | | | [address] [place] [address] | + + + CYTOGENETICS HEM/ONC BLOOD CHROMOSOME ANALYSIS (W/FISH) (LABEL) (03/03/2017 3:18 PM) + + + + | Component | Value | Ref Range | + + + + | LABEL ONLY - [facility] | Please see lab report for result. | | + + + + + + + | Specimen | Performing Laboratory | + + + | Blood | [facility] [employer] [facility] [address] | | | [address] [place] [address] | + + + URIC ACID, PLASMA (03/03/2017 3:18 PM) + +-------+ + | Component | Value | Ref Range | + +-------+ + | URIC ACID, PLASMA | 3.2 | 2.5 - 6.2 mg/dL | | (LAB) | | | + +-------+ + + + + | Specimen | Performing Laboratory | + + + | Blood | [facility], [address] [place] [address] | | | [place] [address] | + + + RENAL FUNCTION SET (NA,K,CL,CO2,BUN,CREAT,GLUC,CA,PHOS,ALB ) (03/03/2017 3:18 PM) + +---------+ + | Component | Value | Ref Range | + +---------+ + | GLUCOSE, PLASMA | 105 (H) | 70 - 99 mg/dL | | (LAB) | | | + +---------+ + | BUN, PLASMA (LAB) | 14 | 6 - 20 mg/dL | + +---------+ + | CREATININE PLASMA | 0.62 | 0.60 - 1.10 mg/dL | | (LAB) | | | + +---------+ + | EGFR - | >60 | >60 mL/min | | UKRAINIAN | | | + +---------+ + | EGFR NON | >60 | >60 mL/min | | -UKRAINIAN | | | + +---------+ + | SODIUM, PLASMA (LAB) | 132 (L) | 136 - 145 mmol/L | + +---------+ + | POTASSIUM, PLASMA | 4.3 | 3.4 - 5.0 mmol/L | | (LAB) | | | + +---------+ + | CHLORIDE, PLASMA | 99 | 97 - 108 mmol/L | | (LAB) | | | + +---------+ + | TOTAL CO2, PLASMA | 28 | 21 - 32 mmol/L | | (LAB) | | | + +---------+ + | CALCIUM, PLASMA | 7.3 (L) | 8.6 - 10.2 mg/dL | | (LAB) | | | + +---------+ + | CALCIUM(ALB | 8.6 | 8.6 - 10.2 mg/dL | | CORRECTED) | | | + +---------+ + | ALBUMIN, PLASMA | 2.4 (L) | 3.5 - 4.7 g/dL | | (LAB) | | | + +---------+ + | PHOSPHORUS, PLASMA | 3.6 | 2.4 - 4.7 mg/dL | | (LAB) | | | + +---------+ + | POTASSIUM CMNT | No Hemo | | + +---------+ + | ANION GAP | 5 | mmol/L | + +---------+ + | ANION GAP(ALB | 9 | 4 - 11 mmol/L | | CORRECTED) | | | + +---------+ + + + + | Specimen | Performing Laboratory | + + + | Blood | [facility], [address] [facility] | | | [place] [address] | + + + + + | Narrative | + + | Adult glucose reference range change effective 7-12-17. GFR is estimated using the | | MDRD equation recommended by the National Kidney Disease Education Program. | | Estimated GFR Interpretive Information: <60 mL/min/1.73 sq | | m Chronic Kidney Disease <15 mL/min/1.73 sq | | m Kidney Failure Estimated GFR greater that 60 mL/min/1.73 | | sq m is of limited clinical value. The MDRD equation is not valid in the following | | situations: - Patients under 18 years of age - Severe malnutrition or obesity - | | Vegetarian diet - Rapidly changing kidney function | + + CBC ONLY (03/03/2017 3:18 PM) + + + | Specimen | Performing Laboratory | + + + | Blood | | + + + + + | Narrative | + + | The following orders were created for panel order CBC ONLY. | | Procedure | | Abnormality Status | | --------- | | ------ CBC (HEMOGRAM) | | ONLY[[id number]] Abnormal Final | | result Please view results for these tests on the | | individual orders. | + + CBC (HEMOGRAM) ONLY (03/03/2017 10:16 AM) + + + + | Component | Value | Ref Range | + + + + | WHITE CELL COUNT | 35.04 (H) | 3.50 - 10.80 K/cu mm | + + + + | RED CELL COUNT | 3.04 (L) | 4.00 - 5.20 M/cu mm | + + + + | HEMOGLOBIN | 9.7 (L) | 12.0 - 16.0 g/dL | + + + + | HEMATOCRIT | 28.6 (L) | 36.0 - 46.0 % | + + + + | MCV | 94.1 | 80.0 - 96.0 fL | + + + + | MCHC | 33.9 | 33.0 - 35.5 g/dL | + + + + | RDW SD | 47.5 (H) | 35.1 - 46.3 fL | + + + + | PLATELET COUNT | 75 (L) | 150 - 400 K/cu mm | + + + + | MPV | 11.5 | 9.7 - 12.3 fL | + + + + | NRBC% | 0.1 | 0.0 - 0.3 % | + + + + | NRBC# | 0.02 | 0.00 - 0.02 K/cu mm | + + + + + + + | Specimen | Performing Laboratory | + + + | Blood | [facility], [facility] [address] | | | [place] [address] | + + + URIC ACID, PLASMA (03/03/2017 10:16 AM) + +-------+ + | Component | Value | Ref Range | + +-------+ + | URIC ACID, PLASMA | 4.1 | 2.5 - 6.2 mg/dL | | (LAB) | | | + +-------+ + + + + | Specimen | Performing Laboratory | + + + | Blood | [facility], [facility] [address] [facility] | | | [place] [address] | + + + RENAL FUNCTION SET (NA,K,CL,CO2,BUN,CREAT,GLUC,CA,PHOS,ALB ) (03/03/2017 10:16 AM) + +---------+ + | Component | Value | Ref Range | + +---------+ + | GLUCOSE, PLASMA | 114 (H) | 70 - 99 mg/dL | | (LAB) | | | + +---------+ + | BUN, PLASMA (LAB) | 15 | 6 - 20 mg/dL | + +---------+ + | CREATININE PLASMA | 0.60 | 0.60 - 1.10 mg/dL | | (LAB) | | | + +---------+ + | EGFR - | >60 | >60 mL/min | | UKRAINIAN | | | + +---------+ + | EGFR NON | >60 | >60 mL/min | | -UKRAINIAN | | | + +---------+ + | SODIUM, PLASMA (LAB) | 136 | 136 - 145 mmol/L | + +---------+ + | POTASSIUM, PLASMA | 3.7 | 3.4 - 5.0 mmol/L | | (LAB) | | | + +---------+ + | CHLORIDE, PLASMA | 101 | 97 - 108 mmol/L | | (LAB) | | | + +---------+ + | TOTAL CO2, PLASMA | 29 | 21 - 32 mmol/L | | (LAB) | | | + +---------+ + | CALCIUM, PLASMA | 7.3 (L) | 8.6 - 10.2 mg/dL | | (LAB) | | | + +---------+ + | CALCIUM(ALB | 8.6 | 8.6 - 10.2 mg/dL | | CORRECTED) | | | + +---------+ + | ALBUMIN, PLASMA | 2.4 (L) | 3.5 - 4.7 g/dL | | (LAB) | | | + +---------+ + | PHOSPHORUS, PLASMA | 4.1 | 2.4 - 4.7 mg/dL | | (LAB) | | | + +---------+ + | POTASSIUM CMNT | No Hemo | | + +---------+ + | ANION GAP | 6 | mmol/L | + +---------+ + | ANION GAP(ALB | 10 | 4 - 11 mmol/L | | CORRECTED) | | | + +---------+ + + + + | Specimen | Performing Laboratory | + + + | Blood | [facility], [address] [address] [facility] | | | [place] [address] | + + + + + | Narrative | + + | Adult glucose reference range change effective 11-07-17. GFR is estimated using the | | MDRD equation recommended by the National Kidney Disease Education Program. | | Estimated GFR Interpretive Information: <60 mL/min/1.73 sq | | m Chronic Kidney Disease <15 mL/min/1.73 sq | | m Kidney Failure Estimated GFR greater that 60 mL/min/1.73 | | sq m is of limited clinical value. The MDRD equation is not valid in the following | | situations: - Patients under 18 years of age - Severe malnutrition or obesity - | | Vegetarian diet - Rapidly changing kidney function | + + CBC ONLY (03/03/2017 10:16 AM) + + + | Specimen | Performing Laboratory | + + + | Blood | | + + + + + | Narrative | + + | The following orders were created for panel order CBC ONLY. | | Procedure | | Abnormality Status | | --------- | | ------ CBC (HEMOGRAM) | | ONLY[[id number]] Abnormal Final | | result Please view results for these tests on the | | individual orders. | + + VRE (FRANCISCO) BY PCR (03/03/2017 8:16 AM) + + + + | Component | Value | Ref Range | + + + + | VRE BY PCR | Negative for van A gene | Negative for van A | | | | gene | + + + + + + + | Specimen | Performing Laboratory | + + + | Swab - Rectum | [facility], [address] | | | [place] [address] | + + + URIC ACID, PLASMA (03/03/2017 5:18 AM) + +-------+ + | Component | Value | Ref Range | + +-------+ + | URIC ACID, PLASMA | 3.9 | 2.5 - 6.2 mg/dL | | (LAB) | | | + +-------+ + + + + | Specimen | Performing Laboratory | + + + | Blood | [facility], [address] [place] [address] | | | [place] [address] | + + + RENAL FUNCTION SET (NA,K,CL,CO2,BUN,CREAT,GLUC,CA,PHOS,ALB ) (03/03/2017 5:18 AM) + +---------+ + | Component | Value | Ref Range | + +---------+ + | GLUCOSE, PLASMA | 116 (H) | 70 - 99 mg/dL | | (LAB) | | | + +---------+ + | BUN, PLASMA (LAB) | 14 | 6 - 20 mg/dL | + +---------+ + | CREATININE PLASMA | 0.60 | 0.60 - 1.10 mg/dL | | (LAB) | | | + +---------+ + | EGFR - | >60 | >60 mL/min | | UKRAINIAN | | | + +---------+ + | EGFR NON | >60 | >60 mL/min | | -UKRAINIAN | | | + +---------+ + | SODIUM, PLASMA (LAB) | 136 | 136 - 145 mmol/L | + +---------+ + | POTASSIUM, PLASMA | 4.3 | 3.4 - 5.0 mmol/L | | (LAB) | | | + +---------+ + | CHLORIDE, PLASMA | 101 | 97 - 108 mmol/L | | (LAB) | | | + +---------+ + | TOTAL CO2, PLASMA | 28 | 21 - 32 mmol/L | | (LAB) | | | + +---------+ + | CALCIUM, PLASMA | 7.4 (L) | 8.6 - 10.2 mg/dL | | (LAB) | | | + +---------+ + | CALCIUM(ALB | 8.7 | 8.6 - 10.2 mg/dL | | CORRECTED) | | | + +---------+ + | ALBUMIN, PLASMA | 2.4 (L) | 3.5 - 4.7 g/dL | | (LAB) | | | + +---------+ + | PHOSPHORUS, PLASMA | 4.2 | 2.4 - 4.7 mg/dL | | (LAB) | | | + +---------+ + | POTASSIUM CMNT | No Hemo | | + +---------+ + | ANION GAP | 7 | mmol/L | + +---------+ + | ANION GAP(ALB | 11 | 4 - 11 mmol/L | | CORRECTED) | | | + +---------+ + + + + | Specimen | Performing Laboratory | + + + | Blood | [facility], [address] [address] [facility] | | | [place] [address] | + + + + + | Narrative | + + | Adult glucose reference range change effective 7-17. GFR is estimated using the | | MDRD equation recommended by the National Kidney Disease Education Program. | | Estimated GFR Interpretive Information: <60 mL/min/1.73 sq | | m Chronic Kidney Disease <15 mL/min/1.73 sq | | m Kidney Failure Estimated GFR greater that 60 mL/min/1.73 | | sq m is of limited clinical value. The MDRD equation is not valid in the following | | situations: - Patients under 18 years of age - Severe malnutrition or obesity - | | Vegetarian diet - Rapidly changing kidney function | + + PRODUCT - PLATELET PHERESIS LEUKOREDUCED (03/03/2017 1:01 AM) + + + + | Component | Value | Ref Range | + + + + | PRODUCT DESCRIPTION | PLATELETS PHERESIS, LEUKOCYTE REDUCED, | | | | IRRADIATED | | + + + + | PRODUCT UNIT # | [id number] | | + + + + | UNIT ABO | O | | + + + + | UNIT RH | POS | | + + + + | STATUS OF UNIT | Presumed Transfused | | + + + + | EXPIRATION DATE | [id number] | | + + + + | BLOOD TYPE BARCODE | 5100 | | + + + + | BLOOD PRODUCT CODE | [id number] | | + + + + + + + | Specimen | Performing Laboratory | + + + | | [facility], [facility] [address] [place] [address] | | | [address] [place] [address] | + + + RBC MORPHOLOGY (03/03/2017 12:29 AM) + + + | Specimen | Performing Laboratory | + + + | Blood | [facility], [facility] [address] [facility] [address] | | | [facility] [address] | + + + MANUAL DIFFERENTIAL (03/03/2017 12:29 AM) + + + + | Component | Value | Ref Range | + + + + | NEUTROPHIL % | 1.9 (L) | 50.0 - 70.0 % | + + + + | LYMPHOCYTE % | 2.9 (L) | 18.0 - 42.0 % | + + + + | MONOCYTE % | 10.5 (H) | 3.5 - 9.0 % | + + + + | EOSINOPHIL % | 0.0 (L) | 1.0 - 3.0 % | + + + + | BASOPHIL % | 0.0 | 0.0 - 2.0 % | + + + + | IMMATURE | 0.9 (H) | 0.0 - 0.6 % | | GRANULOCYTE% | | | + + + + | ATYPICAL CELL % | 83.8 ()Comment: Atypical Cells with fine | 0.0 % | | | chromatin, high N-C ratio, prominent | | | | nucleoli and dark blue cytoplasm. | | + + + + | NEUTROPHIL # | 1.08 (L) | 1.80 - 7.70 K/cu mm | + + + + | LYMPHOCYTE # | 1.64 | 1.00 - 4.80 K/cu mm | + + + + | MONOCYTE # | 5.94 (H) | 0.10 - 0.90 K/cu mm | + + + + | EOSINOPHIL # | 0.00 | 0.00 - 0.50 K/cu mm | + + + + | BASOPHIL # | 0.00 | 0.00 - 0.10 K/cu mm | + + + + | IMMATURE | 0.51 (H) | 0.00 - 0.03 K/cu mm | | GRANULOCYTE# | | | + + + + | ATYPICAL CELLS # | 47.41 | K/cu mm | + + + + + + + | Specimen | Performing Laboratory | + + + | Blood | [facility], [address] | | | [place] [address] | + + + + + | Narrative | + + | Immature Granulocytes (IG) include metamyelocytes, myelocytes and | | promyelocytes. Bands are not included in the IG count. Bands are included in the | | neutrophil count. | + + CBC AND AUTO DIFF (03/03/2017 12:29 AM) + + + + | Component | Value | Ref Range | + + + + | WHITE CELL COUNT | 56.58 (H) | 3.50 - 10.80 K/cu mm | + + + + | RED CELL COUNT | 3.41 (L) | 4.00 - 5.20 M/cu mm | + + + + | HEMOGLOBIN | 10.7 (L) | 12.0 - 16.0 g/dL | + + + + | HEMATOCRIT | 32.0 (L) | 36.0 - 46.0 % | + + + + | MCV | 93.8 | 80.0 - 96.0 fL | + + + + | MCHC | 33.4 | 33.0 - 35.5 g/dL | + + + + | RDW SD | 47.7 (H) | 35.1 - 46.3 fL | + + + + | PLATELET COUNT | 8 (LL) | 150 - 400 K/cu mm | + + + + | MPV | Comment: Not Measured | 9.7 - 12.3 fL | + + + + | NRBC% | 0.0 | 0.0 - 0.3 % | + + + + | NRBC# | 0.02 | 0.00 - 0.02 K/cu mm | + + + + + + + | Specimen | Performing Laboratory | + + + | Blood | [facility], [address] [facility] | | | [place] [address] | + + + CBC, WITH DIFFERENTIAL (03/03/2017 12:29 AM) + + + | Specimen | Performing Laboratory | + + + | Blood | | + + + + + | Narrative | + + | The following orders were created for panel order CBC, WITH DIFFERENTIAL. | | Procedure | | Abnormality Status | | --------- | | ------ CBC AND AUTO | | DIFF[[id number]] Abnormal Final | | result MANUAL | | DIFFERENTIAL[[id number]] Abnormal Final | | result RBC | | MORPHOLOGY[[id number]] | | Final result Please view results for these tests on the | | individual orders. | + + MAGNESIUM, PLASMA (03/03/2017 12:29 AM) + +-------+ + | Component | Value | Ref Range | + +-------+ + | MAGNESIUM,PLASMA | 2.3 | 1.6 - 2.6 mg/dL | + +-------+ + + + + | Specimen | Performing Laboratory | + + + | Blood | [facility], [facility] [address] [facility] | | | [facility] [address] | + + + + + | Narrative | + + | Reference range change effective 12/11/16. | + + COMPLETE METABOLIC SET (NA,K,CL,CO2,BUN,CREAT,GLUC,CA,AST,ALT,BILI TOTAL,ALK PHOS,ALB,PROT TOTAL) (03/03/2017 12:29 AM) + + + + | Component | Value | Ref Range | + + + + | GLUCOSE, PLASMA | 112 (H) | 70 - 99 mg/dL | | (LAB) | | | + + + + | BUN, PLASMA (LAB) | 12 | 6 - 20 mg/dL | + + + + | CREATININE PLASMA | 0.58 (L) | 0.60 - 1.10 mg/dL | | (LAB) | | | + + + + | EGFR - | >60 | >60 mL/min | | UKRAINIAN | | | + + + + | EGFR NON | >60 | >60 mL/min | | -UKRAINIAN | | | + + + + | SODIUM, PLASMA (LAB) | 137 | 136 - 145 mmol/L | + + + + | POTASSIUM, PLASMA | 3.6 | 3.4 - 5.0 mmol/L | | (LAB) | | | + + + + | CHLORIDE, PLASMA | 101 | 97 - 108 mmol/L | | (LAB) | | | + + + + | TOTAL CO2, PLASMA | 27 | 21 - 32 mmol/L | | (LAB) | | | + + + + | CALCIUM, PLASMA | 7.6 (L) | 8.6 - 10.2 mg/dL | | (LAB) | | | + + + + | CALCIUM(ALB | 8.8 | 8.6 - 10.2 mg/dL | | CORRECTED) | | | + + + + | BILIRUBIN TOTAL | 0.5 | 0.3 - 1.2 mg/dL | + + + + | TOTAL PROTEIN, | 5.4 (L) | 6.4 - 8.2 g/dL | | PLASMA (LAB) | | | + + + + | ALBUMIN, PLASMA | 2.5 (L) | 3.5 - 4.7 g/dL | | (LAB) | | | + + + + | ALK PHOS | 272 (H) | 42 - 98 U/L | + + + + | AST(SGOT) | 132 (H) | <=41 U/L | + + + + | ALT (SGPT) | 45 | <=60 U/L | + + + + | ANION GAP | 9 | mmol/L | + + + + | ANION GAP(ALB | 12 (H) | 4 - 11 mmol/L | | CORRECTED) | | | + + + + | POTASSIUM CMNT | No Hemo | | + + + + | BILI T CMNT | No Hemo | | + + + + | AST CMNT | No Hemo | | + + + + + + + | Specimen | Performing Laboratory | + + + | Blood | [facility] [address] [facility] | | | [place] [address] | + + + + + | Narrative | + + | Adult glucose reference range change effective 7-17. GFR is estimated using the | | MDRD equation recommended by the National Kidney Disease Education Program. | | Estimated GFR Interpretive Information: <60 mL/min/1.73 sq | | m Chronic Kidney Disease <15 mL/min/1.73 sq | | m Kidney Failure Estimated GFR greater that 60 mL/min/1.73 | | sq m is of limited clinical value. The MDRD equation is not valid in the following | | situations: - Patients under 18 years of age - Severe malnutrition or obesity - | | Vegetarian diet - Rapidly changing kidney function | + + URIC ACID, PLASMA (03/03/2017 12:29 AM) + +-------+ + | Component | Value | Ref Range | + +-------+ + | URIC ACID, PLASMA | 4.8 | 2.5 - 6.2 mg/dL | | (LAB) | | | + +-------+ + + + + | Specimen | Performing Laboratory | + + + | Blood | [facility], [address] [place] [address] | | | [place] [address] | + + + RENAL FUNCTION SET (NA,K,CL,CO2,BUN,CREAT,GLUC,CA,PHOS,ALB ) (03/03/2017 12:29 AM) + + + + | Component | Value | Ref Range | + + + + | GLUCOSE, PLASMA | 112 (H) | 70 - 99 mg/dL | | (LAB) | | | + + + + | BUN, PLASMA (LAB) | 12 | 6 - 20 mg/dL | + + + + | CREATININE PLASMA | 0.58 (L) | 0.60 - 1.10 mg/dL | | (LAB) | | | + + + + | EGFR - | >60 | >60 mL/min | | UKRAINIAN | | | + + + + | EGFR NON | >60 | >60 mL/min | | -UKRAINIAN | | | + + + + | SODIUM, PLASMA (LAB) | 137 | 136 - 145 mmol/L | + + + + | POTASSIUM, PLASMA | 3.6 | 3.4 - 5.0 mmol/L | | (LAB) | | | + + + + | CHLORIDE, PLASMA | 101 | 97 - 108 mmol/L | | (LAB) | | | + + + + | TOTAL CO2, PLASMA | 27 | 21 - 32 mmol/L | | (LAB) | | | + + + + | CALCIUM, PLASMA | 7.6 (L) | 8.6 - 10.2 mg/dL | | (LAB) | | | + + + + | CALCIUM(ALB | 8.8 | 8.6 - 10.2 mg/dL | | CORRECTED) | | | + + + + | ALBUMIN, PLASMA | 2.5 (L) | 3.5 - 4.7 g/dL | | (LAB) | | | + + + + | PHOSPHORUS, PLASMA | 4.1 | 2.4 - 4.7 mg/dL | | (LAB) | | | + + + + | POTASSIUM CMNT | No Hemo | | + + + + | ANION GAP | 9 | mmol/L | + + + + | ANION GAP(ALB | 12 (H) | 4 - 11 mmol/L | | CORRECTED) | | | + + + + + + + | Specimen | Performing Laboratory | + + + | Blood | [facility], [facility] [address] [facility] | | | [place] [address] | + + + + + | Narrative | + + | Adult glucose reference range change effective 7-12-17. GFR is estimated using the | | MDRD equation recommended by the National Kidney Disease Education Program. | | Estimated GFR Interpretive Information: <60 mL/min/1.73 sq | | m Chronic Kidney Disease <15 mL/min/1.73 sq | | m Kidney Failure Estimated GFR greater that 60 mL/min/1.73 | | sq m is of limited clinical value. 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 Final Pathologic | | | | Diagnosis:Peripheral blood: - Acute | | | | myeloid leukemia, see comment- | | | | Immunophenotype: variable CD7, CD13, CD33, | | | | partial CD34, CD38, CD58,CD117, CD123 and | | | | HLA-DR - Leukocytosis | | | | with 78% blasts, normocytic anemia, | | | | andthrombocytopenia Comment: | | | | Immunophenotypic shift is noted from the | | | | prior leukemic | | | | blastpopulation. Correlation with | | | | concurrent cytogenetic/FISH and | | | | molecularstudies is recommended. | | | | Case seen by:Reina Donald, | | | | M.D./Hematopathology FellowDaniel Sebastian, | | | | M.D., Ph.D./Hematopathologist [place] | | | | Description:A Alarcon-stained peripheral | | | | blood smear and a cytospin of the | | | | cellsuspension were prepared for | | | | morphologic correlation with the | | | | flowcytometry results. PERIPHERAL | | | | BLOOD MORPHOLOGY:WBC: Increased blasts that | | | | are large in size with moderate blue | | | | cytoplasmwith occasional granules and | | | | vacuoles, round to convoluted nuclei, | | | | finechromatin and multiple prominent | | | | nucleoli. Neutrophils show normal | | | | nuclearlobation and cytoplasmic | | | | granularity. Monocytes are mature. The | | | | lymphocytesare heterogeneous.RBC: Mild | | | | anisopoikilocytosis. Nucleated red blood | | | | cells | | | | present.Platelets: Sophie | | | | l granularity with occasional large forms | | | | seen. FLOW CYTOMETRIC | | | | ANALYSIS:Blasts: 78% of | | | | total CD45+ cellsMonocytes: 4% | | | | of total CD45+ cellsLymphocytes: 3% of | | | | total CD45+ cellsB-cells: 19% | | | | of lymphocytes, | | | | polyclonalT-cells: 68% of | | | | lymphocytes, no aberrant antigen expression | | | | (CD4:[id number] | | | | 1.2:1)NK-cells: 13% of | | | | lymphocytesSummary: Increased | | | | myeloid blast population (78% of total | | | | white bloodcells) with the following | | | | immunophenotype: variable CD7, CD13, | | | | CD33,partial CD34, CD38, CD58, CD117, CD123 | | | | and HLA-DR positive. ANTIBODIES | | | | TESTED: CD2 sCD3 | | | | CD4 CD5 CD7 CD8 CD10 [id number] | | | | CD14 CD15 CD16 CD19 CD20 CD33 [id number] CD45 | | | | CD56 CD58 CD64 CD71 CD117 | | | | [id number] sLambda | | | | HLA-DR (Analyte specific reagents | | | | are used in many laboratory tests necessary | | | | [facility]. This test was | | | | developed and its | | | | performancecharacteristics determined by | | | | [facility] [employer]. It has not been | | | | clearedor approved by the US Food and Drug | | | | Administration (FDA). FDA does | | | | notrequire this test to go through | | | | premarket FDA review. This test is | | | | usedfor clinical purposes. It should not | | | | be regarded as investigational or | | | | forresearch. This laboratory is | | | | certified under the Clinical | | | | LaboratoryImprovement Amendments (CLIA) as | | | | qualified to perform high | | | | complexityclinical laboratory | | | | testing.) Laboratory Data:03/03/17 | | | | 10:17 PM | | | | Ref Range & Units Value WHITE | | | | CELL COUNT 3.50 - 10.80 K/cu | | | | mm 26.27 (H)RED CELL COUNT 4.00 - | | | | 5.20 M/cu mm 2.88 (L)HEMOGLOBIN | | | | 12.0 - 16.0 g/dL 9.2 | | | | (L)HEMATOCRIT 36.0 - 46.0 % 27.2 | | | | (L)MCV 80.0 - 96.0 fL 94.4MCHC 33.0 - | | | | 35.5 g/dL 33.8RDW SD 35.1 - | | | | 46.3 fL 47.8 (H)PLATELET COUNT 150 - 400 | | | | K/cu mm 12 (L)MPV 9.7 - 12.3 | | | | fL 13.4 (H)NRBC% 0.0 - 0.3 | | | | % 0.1NRBC# 0.00 - 0.02 K/cu | | | | mm 0.02NEUTROPHIL % 50.0 - 70.0 | | | | % 7.8 (L)LYMPHOCYTE % 18.0 - 42.0 | | | | % 8.7 (L)MONOCYTE % 3.5 - 9.0 | | | | % 11.3 (H)EOSINOPHIL % 1.0 - 3.0 | | | | % 0.0 (L)BASOPHIL % 0.0 - | | | | 2.0 % 0.0IMMATURE | | | | GRANULOCYTE% 0.0 - 0.6 % 0.9 | | | | (H) ATYPICAL CELL % 0.0 | | | | % 71.3 (HH) NEUTROPHIL | | | | # 1.80 - 7.70 K/cu mm 2.05LYMPHOCYTE | | | | # 1.00 - 4.80 K/cu mm 2.29MONOCYTE | | | | # 0.10 - 0.90 K/cu mm 2.97 | | | | (H)EOSINOPHIL # 0.00 - 0.50 K/cu mm | | | | 0.00BASOPHIL # 0.00 - 0.10 K/cu mm | | | | 0.00IMMATURE GRANULOCYTE# 0.00 - | | | | 0.03 K/cu mm 0.24 (H)ATYPICAL CELLS | | | | # K/cu mm 18.73 My | | | | electronic signature indicates that I have | | | | personally reviewed alldiagnostic slides, | | | | the gross and/or microscopic portion of | | | | thisreport and formulated the final | | | | diagnosis. Electronically signed | | | | by: Daniel Sebastian M.D., | | | | Ph.D.PathologistDate Completed: | | | | 03/06/2017 4:57PM | | + + + + + + + | Specimen | Performing Laboratory | + + + | Blood | [facility] DEPARTMENT OF PATHOLOGY [address] [place] [address] RD | | | [place] Wu [address] | + + + [facility] AML/MDS GENE MUTATION PANEL, BLOOD (PP) (03/03/2017) + + + + | Component | Value | Ref Range | + + + + | [facility] AML/MDS | THIS IS AN AMENDED REPORT A [facility] | | | GENE MUTATION PANEL, | AML/MDS Gene Mutation Panel BloodSpecimen | | | BLOOD | Type: EDTA BloodSupplemental indications: | | | | Relapsed acute myeloid leukemia | | | | Patient Results: This report was | | | | amended on 03/18/17 to include the results | | | | of nextgeneration sequencing of the entire | | | | panel. Those results are | | | | reportedbelow. Sample tested: | | | | Blood [facility] AML/ MDS | | | | Panel: Mutation Screening by | | | | Next-GenerationSequencing: The | | | | previously detected DNMT3A and NPM1 gene | | | | mutations are present in thecurrent | | | | sample. 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 The previously detected | | | | TET2, NRAS, FLT3 N841K and FLT3 [id number] | | | | mutations arenot detected in the current | | | | sample (limit of detection ~0.5%). | | | | | | | | Gene: [id number]: | | | | internal tandem duplication (ITD) in FLT3 | | | | juxtamembranedomain (~42 bp | | | | insertion)Mutant Allele | | | | frequency: ~90% Common mutations | | | | in FLT3 map to the juxtamembrane domain | | | | (ITD's in 20-30%of normal karyotype AML's) | | | | or tyrosine kinase domain (at codons 835 or | | | | 836;seen in ~7% of normal karyotype | | | | AML's). Approximately 20-30% of AMLpatients | | | | carry an internal tandem duplication | | | | mutation in the juxtamembranedomain of | | | | FLT3. AML patients with normal cytogenetics | | | | and with a FLT3 ITDmutation have a | | | | significantly poorer prognosis with | | | | increased relapse riskand decreased overall | | | | survival. More aggressive therapy is thus | | | | oftenconsidered in these high-risk | | | | patients. Recently the completion of | | | | theRATIFY clinical trial (CALGB 91159) has | | | | led to the FDA approval in July2016 of the | | | | multitargeted kinase inhibitor midostaurin | | | | for the treatment ofadult patients with | | | | newly diagnosed AML harboring either the | | | | FLT3-ITD orFLT3-TKD mutation (Shade Prado, | | | | Blood, 2017, 129:7922-2182). The FLT3 | | | | kinaseis also a specific target of several | | | | other tyrosine kinase inhibitors thatmay be | | | | recruiting patients for clinical | | | | trials. | | | | Gene: [id number]: | | | | p.R882C (Pathogenic)Mutant Allele | | | | frequency: 46% (Detected at 14% on | | | | 03/14/16)Variant ID: [id number], | | | | [id number] | | | | Gene: OVD4Mfrbdmhz: | | | | p.W288fs*12 (Pathogenic)Mutant Allele | | | | frequency: 44% (Undetected on | | | | 03/14/16)Variant ID: | | | | [id number] Average# of DNA | | | | sequence reads (ie, depth of coverage) for | | | | each of thefollowing | | | | genes: 1503 Each of | | | | the genes listed below contained no | | | | detectable mutation, unlessotherwise stated | | | | above. Gene % | | | | ObservedCoverage Gene % | | | | ObservedCoverage* Gene % | | | | ObservedCoverageABL1 100% GATA2 | | | | 100% NPM1 100%ASXL1 100% HRAS 100% | | | | NRAS 100%BCOR 100% IDH1 100% PAX5 | | | | 100%CBL 100% IDH2 100% | | | | PTPN11 100%CBLB 85% IKZF1 | | | | 100% RUNX1 94%CEBPA | | | | 86% IL7R 100% SF3B1 | | | | 100%CREBBP 100% JAK1 100% | | | | SRSF2 100%CSF3R 100% JAK2 | | | | 100% STAT3 | | | | 100%DNMT3A 98% JAK3 | | | | 90% SUZ12 93%ETV6 100% | | | | KDM6A 97% TET2 (exon3) | | | | 100%EZH2 96% KIT 100% TP53 | | | | 100%FBXW7 96% KRAS 100% | | | | U2AF1 100%FLT3 100% MPL 100% | | | | WT1 81%GATA1 100% | | | | NOTCH1 93% ZRSR2 | | | | 100% *Percent of gene covered by a | | | | minimum of 100 sequence reads, as | | | | comparedwith expected coverage based on | | | | data from 10 normal DNA samples. A list | | | | ofgene segments with less than 100 sequence | | | | reads in this sample is availableupon | | | | request. Assay Information: This | | | | test is designed to detect alterations in | | | | theabove panel of genes, many of which are | | | | known to play a role in | | | | leukemiapathogenesis, prognosis or response | | | | to therapy. Genomic DNA is extractedand | | | | purified from blood or bone marrow. | | | | Mutations are screened by massivelyparallel | | | | sequencing (next-generation sequencing) | | | | using a combination ofmultiplexed PCR | | | | (AmpliSeq primers) and emulsion PCR, | | | | followed bysemiconductor-based sequencing | | | | on an [employer] PGM. The panel | | | | targets selected exons (with reported | | | | hotspot mutations) of thegenes listed | | | | above. The actual sequence coverage varies | | | | for each sample andis summarized (by gene) | | | | in the table above. The gene segments that | | | | are notconsistently well-covered by | | | | massively parallel sequencing have | | | | beenalternatively sequenced by routine | | | | Bates dideoxy sequencing methods. Alist of | | | | the gene segments that are incompletely | | | | covered by the combinationof massively | | | | parallel and Bates sequencing are | | | | available upon request. For this | | | | assay, the minimum detectable mutant allele | | | | ratio ranges between5% and 15%, depending | | | | on the sequence read depth. The minimum | | | | requiredsequencing coverage is 100 reads | | | | per gene segment (to yield a 15% | | | | alleleburden sensitivity). Gene segments | | | | with less than 100 reads could | | | | harbormutations that were missed by this | | | | analysis. Low read counts may | | | | reflectchanges in gene copy number or | | | | technical issues with the sample. | | | | With regard to insertions and deletions, | | | | this test is known to be biasedtoward | | | | detecting shorter alterations. Therefore, a | | | | supplementary usc-adcdoibmhu-fbexo assay | | | | is concomitantly run to ensure that | | | | internal tandemduplication insertions in | | | | FLT3 exon 14 are not missed. | | | | Additional details on mutations identified | | | | in this specimen: Gene | | | | Transcript cDNA | | | | [facility] Genome Chrom | | | | Start End Ref Jesica | | | | FLT3 | | | | [id number].[id number]T | | | | AATGAGTACTTCTACGTTGATTTC hg19 | | | | [id number] T TGAAA | | | | TCAACGTAGAAGTACTCATTATCTGAGGAGCCGGTCACDNMT3 | | | | A WSOR25633.1 c.2644C>T hg19 | | | | chr2 | | | | [id number] [id number] G A | | | | NPM1 ZWGG7905.1 | | | | c.859_860insTCTG hg19 chr5 [id number] | | | | [id number] CCTCTG Case | | | | reviewed by:Mckenna Friedman/Molecular | | | | TechnologistDaniel Sebastian MD, | | | | PhD/Hematopathologist (Analyte | | | | specific reagents are used in many | | | | laboratory tests necessary forstandard | | | | medical care and generally do not require | | | | FDA approval. This testwas developed and | | | | its performance characteristics determined | | | | [facility]; CLIA | | | | # [id number]. It has not been cleared | | | | orapproved by the U.S. Food and Drug | | | | Administration.): PRELIMINARY mutation | | | | analysis of FLT3-ITD: | | | | Gene: JEY2Bfstuzkb: | | | | internal tandem duplication (ITD) in | | | | FLT3 juxtamembranedomain (~42 bp | | | | insertion)Mutant Allele | | | | frequency: ~90% FLT3 is a | | | | receptor tyrosine kinase with important | | | | roles in hematopoieticstem cell | | | | proliferation and survival. Common | | | | mutations in FLT3 map to thejuxtamembrane | | | | domain (ITD's in 20-30% of normal karyotype | | | | AML's) ortyrosine kinase domain (at codons | | | | 835 or 836; seen in ~7% of normalkaryotype | | | | AML's). Approximately 20-30% of AML | | | | patients carry an internaltandem | | | | duplication mutation in the juxtamembrane | | | | domain of FLT3. AMLpatients with normal | | | | cytogenetics and with a FLT3 ITD mutation | | | | have asignificantly poorer prognosis with | | | | increased relapse risk and decreasedoverall | | | | survival. More aggressive therapy is thus | | | | often considered in thesehigh-risk | | | | patients. Recently the completion of the | | | | RATIY clinical trial(CALGB 40854) has led | | | | to the FDA approval in July 2016 of | | | | themultitargeted kinase inhibitor | | | | midostaurin for the treatment of | | | | adultpatients with newly diagnosed AML | | | | harboring either the FLT3-ITD or | | | | FLT3-TKDmutation (Shdae Prado, Blood, 2017, | | | | 129:7064-0345). The FLT3 kinase is alsoa | | | | specific target of several other tyrosine | | | | kinase inhibitors that may berecruiting | | | | patients for clinical trials. | | | | Comment: For the purposes of improved | | | | patient care, the findings forFLT3-ITD gene | | | | mutation analysis are issued in this | | | | preliminary report. Nextgeneration | | | | sequencing analysis is pending. A | | | | comprehensive interpretationof all 42 genes | | | | analyzed in this case will be reported as | | | | an amendment uponcompletion of the | | | | remaining tests. Case | | | | reviewed by:Dora Church/Molecular | | | | TechnologistLibra Randhawa MD, | | | | PhD/Hematopathologist This test was | | | | developed and its performance | | | | characteristics determined bythe [facility] | | | | [facility] | | | | [facility]. Ithas not been | | | | cleared or approved by the Food and Drug | | | | Administration. FDAapproval is not | | | | required for the clinical use of the test, | | | | and thereforevalidation was done as | | | | required under the requirements of the | | | | ClinicalLaboratory Improvement Act of | | | | 1987. The [facility] | | | | DiagnosticsLaboratories are fully licensed | | | | by the [facility] under CLIA and | | | | areaccredited by [employer] | | | | Pathologists (CAP). | | | | Electronically signed by: Libra Randhawa | | | | Go,Ph.D.HematopathologistDate Completed: | | | | 03/07/2017 5:26PMElectronically signed | | | | by: Daniel Sebastian M.D., | | | | Ph.D.PathologistDate Completed: | | | | 03/18/2017 9:08AM | | + + + + + + + | Specimen | Performing Laboratory | + + + | Blood | [facility] [place] [address] | | [address] [place] [address] | + + + CYTOGENETICS HEM/ONC BLOOD CHROMOSOME ANALYSIS (W/FISH) (PP) (03/03/2017) + + + + | Component | Value | Ref Range | + + + + | CHROMOSOME REPORT | Hem/Onc Blood: Full Study/FISHSupplemental | | | | indications: Relapsed acute myeloid | | | | leukemia FISH | | | | Results:Normal Chromosome Results: | | | | AbnormalKARYOTYPE RESULTS: | | | | 46,X,t(X;7)(q21;q32)[20] | | | | IMPRESSIONS AND RECOMMENDATIONS:All twenty | | | | metaphase cells analyzed 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 Theclinical significance of | | | | this rearrangement is unclear as it has not | | | | beenreported as a recurring aberration in | | | | AML. Please interpret within thecontext | | | | of other clinical, molecular and | | | | pathological findings. Fluorescent | | | | in situ hybridization (FISH) was performed | | | | with an AML probepanel. Probe sets and | | | | number of cells scored are listed | | | | below. Allresults were within the | | | | normal limits established by our | | | | laboratory. Thank you very much for | | | | your referral. If you have any | | | | questions regardingthis report or future | | | | cytogenetic testing issues, please feel | | | | free tocontact us. CYTOGENETIC | | | | ANALYSIS SUMMARY:Number of Cells | | | | Analyzed: 20 Banding | | | | Level: ?550Number of Cells | | | | Counted: N/A Banding Method: | | | | GTWNumber of Cells Karyotyped: | | | | 3 FISH ANALYSIS SUMMARY: | | | | Cells Scored: 200 Probe(s): | | | | Metasystems PML (15q24) (SO) / | | | | MAURA(17q21.1-21.2) (SG)Cells | | | | Scored: 200 Probe(s): Rodriguez | | | | 5q EGR1 (5q31) (SO) / D5S23,F9X307 | | | | (5p15.2) (SG)Cells Scored: | | | | 200 Probe(s): Rodriguez J6H754 (7q31) (SO) | | | | / CEP 7 (SG) Cells | | | | Scored: 200 Probe(s): | | | | Metasystems BCR (22q11.2) (SG) / ABL(9q34) | | | | (SO) + ASS (9q34) (SA)Cells | | | | Scored: 200 Probe(s): Rodriguez | | | | AOAM3H6 (8q21.3) (SO) / RUNX1(21q22) (SG) | | | | t(8;21)Cells Scored: | | | | 200 Probe(s): Rodriguez CBFB inv(16) | | | | (16q22) break-apart Cells | | | | Scored: 200 Probe(s): | | | | Biocare MLL (11q23) break-apartCells | | | | Scored: 200 Probe(s): Rodriguez | | | | MECOM (3q26.2) (SO) / RPN1(3q21.3) (SG) | | | | dual fusionCells Scored: | | | | 200 Probe(s): MetaSystems DEK (6p22) | | | | (SG) / NUP 214(9q34) (SO) t(6;9) | | | | This test was developed and its performance | | | | determined by the [facility] | | | | Laboratory as required by the CLIA '88 | | | | regulations. It hasnot been cleared or | | | | approved for specific uses by the U.S. Food | | | | and DrugAdministration. The | | | | clinical interpretation was made by the | | | | clinical reverberatory skimmer. | | | | Electronically signed by: Monica Ko | | | | PhD, [facility] [place] [facility]TOONAClinical CytogeneticistDate | | | | Completed: | | | | 03/13/2017 1:48PMElectronically signed | | | | by: Monica Parrish MD, [facility] [place] | | | [facility] OF ALTOONAClinical GeneticistDate Completed: | | | | 03/13/2017 4:32PM | | + + + + + + + | Specimen | Performing Laboratory | + + + | Blood | [facility] [place] [address] | | [address] [place] [address] | + + + GENETRAILS AML/MDS GENE MUTATION PANEL, BLOOD (03/03/2017) + + + | Specimen | Performing Laboratory | + + + | Blood | | + + + + + | Narrative | + + | The following orders were created for panel order GENETRAILS AML/MDS GENE MUTATION | | PANEL, BLOOD. Procedure | | Abnormality Status | | --------- | | ------ GENETRAILS | | AML/MDS GENE ...[[id number]] Final | | result GENETRAILS AML/MDS GENE | | ...[[id number]] In | | process Please view results for these tests on the | | individual orders. | + + CYTOGENETICS HEM/ONC BLOOD CHROMOSOME ANALYSIS (W/FISH) (03/03/2017) + + + | Specimen | Performing Laboratory | + + + | Blood | | + + + + + | Narrative | + + | The following orders were created for panel order CYTOGENETICS HEM/ONC BLOOD | | CHROMOSOME ANALYSIS (W/FISH). | | Procedure | | Abnormality Status | | --------- | | ------ CYTOGENETICS | | HEM/ONC | | BLO...[[id number]] | | CYTOGENETICS HEM/ONC | | BLO...[[id number]] Final | | result Please view results for these tests on the | | individual orders. | + + LEUKEMIA/LYMPHOMA MARKER - BLOOD (03/03/2017) + + + | Specimen | Performing Laboratory | + + + | Blood | | + + + + + | Narrative | + + | The following orders were created for panel order LEUKEMIA/LYMPHOMA MARKER - BLOOD. | | Procedure | | Abnormality Status | | --------- | | ------ | | LEUKEMIA/LYMPHOMA MARKER...[[id number]] In | | process LEUKEMIA/LYMPHOMA | | MARKER...[[id number]] Final | | result Please view results for these tests on the | | individual orders. | + + LACTATE (03/02/2017 9:17 PM) + +-------+ + | Component | Value | Ref Range | + +-------+ + | LACTATE | 0.9 | mmol/L | + +-------+ + + + + | Specimen | Performing Laboratory | + + + | Blood | [facility] [place] [address] [facility] | | | [place] [address] | + + + + + | Narrative | + + | Reference Range: Venous blood:0.5 - 2.2 mmol/L Critical >= 4.0 mmol/L | | Arterial blood:0.5 - 1.6 mmol/L Critical >= 4.0 mmol/L | + + 12 LEAD ECG (03/02/2017 8:27 PM) + + + + | Component | Value | Ref Range | + + + + | VENTRICULAR RATE | 125 | bpm | + + + + | ATRIAL RATE | 125 | ms | + + + + | P-R INTERVAL | 50 | ms | + + + + | P AXIS | 38 | deg | + + + + | QRS DURATION | 91 | ms | + + + + | QT | 390 | ms | + + + + | QTCB | 563 | ms | + + + + | R AXIS | -66 | deg | + + + + | T AXIS | -46 | deg | + + + + | ECG IMPRESSION | Sinus tachycardia | | + + + + | ECG IMPRESSION | Borderline T wave abnormalities | | + + + + | ECG IMPRESSION | Prolonged QT interval- ABNORMAL ECG - | | + + + + | ECG IMPRESSION | Electronically signed by: VALDO RYAN | | | | 03-02-2017 20:51:59 | | + + + + + + + | Specimen | Performing Laboratory | + + + | | [facility] [address] [place] [address] | | | [place] [address] | + + + X-RAY CHEST 2 VIEW (03/02/2017 8:05 PM) + + + | Specimen | Performing Laboratory | + + + | | [facility] RADIOLOGY VOICE RECOGNITION | + + + + + | Narrative | + + | EXAM: CHEST 2 VIEWS HISTORY: Recurrence of AML. Evaluate for shortness of breath. | | COMPARISON: Chest radiograph 05/01/2016. Chest CT 03/27/2016. FINDINGS: The | | cardiomediastinal silhouette is stable. Perihilar and bibasilar subsegmental atelectasis | | noted. There is a trace left pleural effusion. No pulmonary edema. No pneumothorax. | | Calcific tendinosis of the right supraspinatus as before. The bones are intact. | | IMPRESSION: Perihilar and bibasilar atelectasis with trace left pleural effusion. | | I have personally reviewed the images and, if necessary, edited the report. I | | agree with the report as now presented. | + + + + | Procedure Note | + + | Service Account, Radiant Res In Interface - 03/03/2017 8:31 AM PST EXAM: CHEST 2 | | VIEWS HISTORY: Recurrence of AML. Evaluate for shortness of breath.COMPARISON: Chest | | radiograph 05/01/2016. Chest CT 03/27/2016.FINDINGS: The cardiomediastinal silhouette is | | stable. Perihilar and bibasilar subsegmental atelectasis noted. There is a trace left | | pleural effusion. No pulmonary edema. No pneumothorax. Calcific tendinosis of the right | | supraspinatus as before. The bones are intact.IMPRESSION: Perihilar and bibasilar | | atelectasis with trace left pleural effusion.I have personally reviewed the images and, | | if necessary, edited the report. I agree with the report as now presented. | |The cardiomediastinal silhouette is stable. Perihilar and bibasilar subsegmental atelectasi s noted. There is a trace left pleural effusion. No pulmonary edema. No pneumothorax. Calcif ic tendinosis of the right | |supraspinatus as before. The bones are intact. | | | |IMPRESSION: | | | |Perihilar and bibasilar atelectasis with trace left pleural effusion. | | | | | |I have personally reviewed the images and, if necessary, edited the report. I agree with t he report as now presented. | + + CULTURE, BLOOD BACTI & YEAST CARARMANDO (03/02/2017 7:51 PM) + + + + | Component | Value | Ref Range | + + + + | CULTURE RESULT | Final Report:No Bacteria or Yeast isolated | | | | at 5 days. | | + + + + + + + | Specimen | Performing Laboratory | + + + | Blood - Antecubital | [facility], [place] [address] [place] [address] | | - right | [place] [address] | + + + CULTURE, BLOOD BACTI & YEAST (03/02/2017 7:51 PM) + + + | Specimen | Performing Laboratory | + + + | Blood | | + + + + + | Narrative | + + | The following orders were created for panel order CULTURE, BLOOD BACTI & YEAST. | | Procedure | | Abnormality Status | | --------- | | ------ CULTURE, BLOOD | | BACTI & Y...[[id number]] Final | | result Please view results for these tests on the | | individual orders. | + + ANTIBODY SCREEN (03/02/2017 6:41 PM) + + + + | Component | Value | Ref Range | + + + + | Antibody Screen | Negative | | + + + + + + + | Specimen | Performing Laboratory | + + + | Blood | [facility], [facility] [address] [place] [address] | | | [place] [address] | + + + ABO & RH TYPE (03/02/2017 6:41 PM) + + + + | Component | Value | Ref Range | + + + + | ABO Group | O | | + + + + | Rh Type | Positive | | + + + + + + + | Specimen | Performing Laboratory | + + + | Blood | [facility], [facility] [address] [facility] | | | [place] [address] | + + + TYPE AND SCREEN (03/02/2017 6:41 PM) + + + | Specimen | Performing Laboratory | + + + | Blood | | + + + + + | Narrative | + + | The following orders were created for panel order TYPE AND SCREEN. | | Procedure | | Abnormality Status | | --------- | | ------ ABO & RH | | TYPE[[id number]] F | | inal result ANTIBODY | | SCREEN[[id number]] Fin | | al result Please view results for these tests on the | | individual orders. | + + MANUAL DIFFERENTIAL (03/02/2017 6:02 PM) + + + + | Component | Value | Ref Range | + + + + | NEUTROPHIL % | 2.6 (L) | 50.0 - 70.0 % | + + + + | LYMPHOCYTE % | 5.2 (L) | 18.0 - 42.0 % | + + + + | MONOCYTE % | 12.2 (H) | 3.5 - 9.0 % | + + + + | EOSINOPHIL % | 0.0 (L) | 1.0 - 3.0 % | + + + + | BASOPHIL % | 0.0 | 0.0 - 2.0 % | + + + + | IMMATURE | 0.0 | 0.0 - 0.6 % | | GRANULOCYTE% | | | + + + + | ATYPICAL CELL % | 80.0 (HH) | 0.0 % | + + + + | NEUTROPHIL # | 2.23 | 1.80 - 7.70 K/cu mm | + + + + | LYMPHOCYTE # | 4.46 | 1.00 - 4.80 K/cu mm | + + + + | MONOCYTE # | 10.46 (H) | 0.10 - 0.90 K/cu mm | + + + + | EOSINOPHIL # | 0.00 | 0.00 - 0.50 K/cu mm | + + + + | BASOPHIL # | 0.00 | 0.00 - 0.10 K/cu mm | + + + + | IMMATURE | 0.00 | 0.00 - 0.03 K/cu mm | | GRANULOCYTE# | | | + + + + | ATYPICAL CELLS # | 68.58 | K/cu mm | + + + + + + + | Specimen | Performing Laboratory | + + + | Blood | [facility], [place] [address] [facility] | | | [place] [address] | + + + + + | Narrative | + + | Immature Granulocytes (IG) include metamyelocytes, myelocytes and | | promyelocytes. Bands are not included in the IG count. Bands are included in the | | neutrophil count. | + + TROPONIN I, PLASMA (03/02/2017 6:02 PM) + +-------+ + | Component | Value | Ref Range | + +-------+ + | TROPONIN I | <0.02 | <0.80 ng/mL | + +-------+ + + + + | Specimen | Performing Laboratory | + + + | Blood | [facility] [place] [address] [facility] | | | [place] [address] | + + + CBC AND AUTO DIFF (03/02/2017 6:02 PM) + + + + | Component | Value | Ref Range | + + + + | WHITE CELL COUNT | 85.72 (H) | 3.50 - 10.80 K/cu mm | + + + + | RED CELL COUNT | 3.59 (L) | 4.00 - 5.20 M/cu mm | + + + + | HEMOGLOBIN | 11.3 (L) | 12.0 - 16.0 g/dL | + + + + | HEMATOCRIT | 33.5 (L) | 36.0 - 46.0 % | + + + + | MCV | 93.3 | 80.0 - 96.0 fL | + + + + | MCHC | 33.7 | 33.0 - 35.5 g/dL | + + + + | RDW SD | 46.4 (H) | 35.1 - 46.3 fL | + + + + | PLATELET COUNT | 11 (L) | 150 - 400 K/cu mm | + + + + | MPV | Comment: Not Measured | 9.7 - 12.3 fL | + + + + | NRBC% | 0.1 | 0.0 - 0.3 % | + + + + | NRBC# | 0.05 (H) | 0.00 - 0.02 K/cu mm | + + + + + + + | Specimen | Performing Laboratory | + + + | Blood | [facility], [place] [address] | | | [place] [address] | + + + INR (03/02/2017 6:02 PM) + +-------+ + | Component | Value | Ref Range | + +-------+ + | INR | 1.17 | 0.90 - 1.20 INR | + +-------+ + + + + | Specimen | Performing Laboratory | + + + | Blood | [facility], [place] [address] [facility] | | | [place] [address] | + + + + + | Narrative | + + | INR Therapeutic ranges for full anticoagulation: INR for Venous | | Thromboembolism (2.0 - 3.0) INR INR for most patients with | | mech. valves (2.5 - 3.5) INR | + + CBC, WITH DIFFERENTIAL (03/02/2017 6:02 PM) + + + | Specimen | Performing Laboratory | + + + | Blood | | + + + + + | Narrative | + + | The following orders were created for panel order CBC, WITH DIFFERENTIAL. | | Procedure | | Abnormality Status | | --------- | | ------ CBC AND AUTO | | DIFF[[id number]] Abnormal Final | | result MANUAL | | DIFFERENTIAL[[id number]] Abnormal Final | | result Please view results for these tests on the | | individual orders. | + + LDH TOTAL, PLASMA (03/02/2017 6:02 PM) + + + + | Component | Value | Ref Range | + + + + | LD TOTAL, PLASMA | 6,238 (H) | <=250 U/L | + + + + | LD CMNT | No Hemo | | + + + + + + + | Specimen | Performing Laboratory | + + + | Blood | [facility], [place] [address] [facility] | | | [place] [address] | + + + BILIRUBIN DIRECT (03/02/2017 6:02 PM) + +---------+ + | Component | Value | Ref Range | + +---------+ + | BILIRUBIN DIRECT | 0.3 | 0.0 - 0.3 mg/dL | + +---------+ + | BILI D CMNT | No Hemo | | + +---------+ + + + + | Specimen | Performing Laboratory | + + + | Blood | [facility], [place] [address] [facility] | | | [place], [place] [address] | + + + URIC ACID, PLASMA (03/02/2017 6:02 PM) + +-------+ + | Component | Value | Ref Range | + +-------+ + | URIC ACID, PLASMA | 5.4 | 2.5 - 6.2 mg/dL | | (LAB) | | | + +-------+ + + + + | Specimen | Performing Laboratory | + + + | Blood | [facility], [place] [address] [place] [id number] | | | [place] [address] | + + + PHOSPHORUS, PLASMA (03/02/2017 6:02 PM) + +-------+ + | Component | Value | Ref Range | + +-------+ + | PHOSPHORUS, PLASMA | 4.2 | 2.4 - 4.7 mg/dL | | (LAB) | | | + +-------+ + + + + | Specimen | Performing Laboratory | + + + | Blood | [facility], [place] [address] [place] [address] | | | [place] [address] | + + + MAGNESIUM, PLASMA (03/02/2017 6:02 PM) + +-------+ + | Component | Value | Ref Range | + +-------+ + | MAGNESIUM,PLASMA | 2.3 | 1.6 - 2.6 mg/dL | + +-------+ + + + + | Specimen | Performing Laboratory | + + + | Blood | [facility], [facility] [address] [facility] | | | [facility] [address] | + + + + + | Narrative | + + | Reference range change effective 12/11/16. | + + COMPLETE METABOLIC SET (NA,K,CL,CO2,BUN,CREAT,GLUC,CA,AST,ALT,BILI TOTAL,ALK PHOS,ALB,PROT TOTAL) (03/02/2017 6:02 PM) + +---------+ + | Component | Value | Ref Range | + +---------+ + | GLUCOSE, PLASMA | 108 (H) | 70 - 99 mg/dL | | (LAB) | | | + +---------+ + | BUN, PLASMA (LAB) | 13 | 6 - 20 mg/dL | + +---------+ + | CREATININE PLASMA | 0.63 | 0.60 - 1.10 mg/dL | | (LAB) | | | + +---------+ + | EGFR - | >60 | >60 mL/min | | UKRAINIAN | | | + +---------+ + | EGFR NON | >60 | >60 mL/min | | -UKRAINIAN | | | + +---------+ + | SODIUM, PLASMA (LAB) | 134 (L) | 136 - 145 mmol/L | + +---------+ + | POTASSIUM, PLASMA | 3.9 | 3.4 - 5.0 mmol/L | | (LAB) | | | + +---------+ + | CHLORIDE, PLASMA | 96 (L) | 97 - 108 mmol/L | | (LAB) | | | + +---------+ + | TOTAL CO2, PLASMA | 30 | 21 - 32 mmol/L | | (LAB) | | | + +---------+ + | CALCIUM, PLASMA | 7.5 (L) | 8.6 - 10.2 mg/dL | | (LAB) | | | + +---------+ + | CALCIUM(ALB | 8.5 (L) | 8.6 - 10.2 mg/dL | | CORRECTED) | | | + +---------+ + | BILIRUBIN TOTAL | 0.6 | 0.3 - 1.2 mg/dL | + +---------+ + | TOTAL PROTEIN, | 5.8 (L) | 6.4 - 8.2 g/dL | | PLASMA (LAB) | | | + +---------+ + | ALBUMIN, PLASMA | 2.7 (L) | 3.5 - 4.7 g/dL | | (LAB) | | | + +---------+ + | ALK PHOS | 289 (H) | 42 - 98 U/L | + +---------+ + | AST(SGOT) | 158 (H) | <=41 U/L | + +---------+ + | ALT (SGPT) | 47 | <=60 U/L | + +---------+ + | ANION GAP | 8 | mmol/L | + +---------+ + | ANION GAP(ALB | 11 | 4 - 11 mmol/L | | CORRECTED) | | | + +---------+ + | POTASSIUM CMNT | No Hemo | | + +---------+ + | BILI T CMNT | No Hemo | | + +---------+ + | AST CMNT | No Hemo | | + +---------+ + + + + | Specimen | Performing Laboratory | + + + | Blood | [facility], [place] [address] | | | [place] [address] | + + + + + | Narrative | + + | Adult glucose reference range change effective 712-17. GFR is estimated using the | | MDRD equation recommended by the National Kidney Disease Education Program. | | Estimated GFR Interpretive Information: <60 mL/min/1.73 sq | | m Chronic Kidney Disease <15 mL/min/1.73 sq | | m Kidney Failure Estimated GFR greater that 60 mL/min/1.73 | | sq m is of limited clinical value. 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) | + + | Acute myeloid leukemia, in relapse | + + | Anxiety and depression | + + | Dysthymic disorder | + + | Learning disability | + + | Other specific developmental learning difficulties | + + | Neutropenic fever (HCC) | + + | Neutropenia, unspecified | + + | Abnormal CXR | + + | Other nonspecific abnormal finding of lung field | + + | Local infection due to PICC (peripherally inserted central catheter) | + + | Local infection due to central venous catheter | + + Admitting Diagnoses + + | Diagnosis | + + | AML (acute myeloblastic leukemia) (HCC) [C92.00] | + + Administered Medications + +--------+ +--------+------+------+ | Medication Order | MAR | Action | Dose | Rate | Site | | | Action | Date | | | | + +--------+ +--------+------+------+ | acetaminophen (TYLENOL) tablet | Given | 03/26/20 | 325 mg | | | | 325-650 mg 325-650 mg, oral, | | 17 02:10 | | | | | EVERY 4 HOURS NEEDED, Starting | | PST | | | | | 03/02/17 at 1733, Until Mon | | | | | | | 04/01/17 at 2218, mild pain, | | | | | | | fever, blood product | | | | | | | premedication | | | | | | + +--------+ +--------+------+------+ +-------+ +--------+---+---+ | Given | | 650 mg | | | | | 7 17:09 | | | | | | PST | | | | +-------+ +--------+---+---+ | Given | | 650 mg | | | | | 7 15:39 | | | | | | PST | | | | +-------+ +--------+---+---+ +---+---+ | | | +---+---+ + +-------+ +--------+---+---+ | acyclovir (ZOVIRAX) tablet 800 | Given | | 800 mg | | | | mg 800 mg, oral, DAILY, First | | 7 08:51 | | | | | dose on 03/02/17 at 2000, | | PST | | | | | Until Discontinued | | | | | | + +-------+ +--------+---+---+ +-------+ +--------+---+---+ | Given | | 800 mg | | | | | 7 08:45 | | | | | | PST | | | | +-------+ +--------+---+---+ | Given | | 800 mg | | | | | 7 09:21 | | | | | | PST | | | | +-------+ +--------+---+---+ +---+---+ | | | +---+---+ + +-------+ +--------+---+---+ | albuterol (PROVENTIL, VENTOLIN) | Given | | 1 puff | | | | 90 mcg/actuation inhaler 1 puff | | 7 15:32 | | | | | 1 puff, inhalation, EVERY 6 | | PST | | | | | HOURS NEEDED, Starting Sat | | | | | | | 03/02/17 at 1808, Until Mon | | | | | | | 04/01/17 at 2218, shortness of | | | | | | | breath, wheezing | | | | | | + +-------+ +--------+---+---+ +-------+ +--------+---+---+ | Given | 03/08/20 | 1 puff | | | | | 17 13:05 | | | | | | PST | | | | +-------+ +--------+---+---+ +---+---+ | | | +---+---+ + +-------+ +--------+---+---+ | allopurinol (ZYLOPRIM) tablet | Given | | 300 mg | | | | 300 mg 300 mg, oral, DAILY, | | 7 08:51 | | | | | First dose on 03/02/17 at | | PST | | | | | 1930, Until Discontinued | | | | | | + +-------+ +--------+---+---+ +-------+ +--------+---+---+ | Given | | 300 mg | | | | | 7 12:21 | | | | | | PST | | | | +-------+ +--------+---+---+ | Given | | 300 mg | | | | | 7 10:35 | | | | | | PST | | | | +-------+ +--------+---+---+ +---+---+ | | | +---+---+ + + + +------+---+---+ | alteplase (CATHFLO ACTIVASE) | Line | 03/22/20 | 2 mg | | | | injection 2 mg 2 mg, | Lock | 17 04:32 | | | | | Intracatheter, NEEDED, | Instille | PST | | | | | Starting 03/02/17 at 1733, | d | | | | | | Until 04/01/17 at 2218, | | | | | | | central catheter sluggishness | | | | | | + + + +------+---+---+ + + +------+---+---+ | Line Lock Instilled | 03/27/20 | 2 mg | | | | | 17 02:13 | | | | | | PST | | | | + + +------+---+---+ | Line Lock Instilled | 03/27/20 | 2 mg | | | | | 17 02:14 | | | | | | PST | | | | + + +------+---+---+ +---+---+ | | | +---+---+ + +-------+ +-------+---+---+ | aluminum-magnesium | Given | 03/12/20 | 30 mL | | | | hydroxide-simethicone (MAALOX; | | 17 13:26 | | | | | MYLANTA) 200-200-20 mg/5 mL | | PST | | | | | suspension 30 mL 30 mL, oral, | | | | | | | EVERY 3 HOURS NEEDED, Starting | | | | | | | 03/02/17 at 1733, Until Mon | | | | | | | 04/01/17 at 2218, gastrointestinal | | | | | | | upset | | | | | | + +-------+ +-------+---+---+ +-------+ +-------+---+---+ | Given | 11/14/20 | 30 mL | | | | | 17 22:06 | | | | | | PST | | | | +-------+ +-------+---+---+ | Given | 03/26/20 | 30 mL | | | | | 17 16:26 | | | | | | PST | | | | +-------+ +-------+---+---+ +---+---+ | | | +---+---+ + +-------+ +-------+---+---+ | amLODIPine (NORVASC) tablet 10 | Given | | 10 mg | | | | mg 10 mg, oral, DAILY, First | | 7 08:51 | | | | | dose on Sat03/20/17 at 0900, | | PST | | | | | Until Discontinued | | | | | | + +-------+ +-------+---+---+ +-------+ +-------+---+---+ | Given | | 10 mg | | | | | 7 08:45 | | | | | | PST | | | | +-------+ +-------+---+---+ | Given | | 10 mg | | | | | 7 09:21 | | | | | | PST | | | | +-------+ +-------+---+---+ +---+---+ | | | +---+---+ + +-------+ +------+---+---+ | amLODIPine (NORVASC) tablet 5 | Given | 03/17/20 | 5 mg | | | | mg 5 mg, oral, DAILY, First dose | | 17 07:58 | | | | | on Sat03/13/17 at 1115, Until | | PST | | | | | Discontinued | | | | | | + +-------+ +------+---+---+ +-------+ +------+---+---+ | Given | 03/18/20 | 5 mg | | | | | 17 08:56 | | | | | | PST | | | | +-------+ +------+---+---+ | Given | 03/19/20 | 5 mg | | | | | 17 09:33 | | | | | | PST | | | | +-------+ +------+---+---+ +---+---+ | | | +---+---+ + +-------+ +------+---+---+ | amLODIPine (NORVASC) tablet 5 | Given | 03/19/20 | 5 mg | | | | mg 5 mg, oral, ONCE, 1 dose, Tue | | 17 12:10 | | | | | 03/19/17 at 1145 | | PST | | | | + +-------+ +------+---+---+ +---+---+ | | | +---+---+ + +-------+ +-----+---+---+ | ceFEPIme (MAXIPIME) injection 2 | Given | 03/20/20 | 2 g | | | | g 2 g, intravenous, EVERY 8 | | 17 20:14 | | | | | HOURS, First dose on 03/02/17 | | PST | | | | | at 1945, Until Discontinued | | | | | | + +-------+ +-----+---+---+ +-------+ +-----+---+---+ | Given | 03/21/20 | 2 g | | | | | 17 04:33 | | | | | | PST | | | | +-------+ +-----+---+---+ | Given | 03/21/20 | 2 g | | | | | 17 12:23 | | | | | | PST | | | | +-------+ +-----+---+---+ +---+---+ | | | +---+---+ + +---------+ + +-------+---+ | cytarabine (CYTOSAR) 4,200 mg | New Bag | | 4,200 mg | 271 | | | in NaCl 0.9 % IV 4,200 mg | | 7 18:52 | | mL/hr | | | (rounded from 4,100 mg = 2,000 | | PST | | | | | mg/m2 | | | | | | | 2.05 m2 Treatment plan recorded | | | | | | | BSA), intravenous, Administer | | | | | | | over 2 Hours, EVERY 24 HOURS, 5 | | | | | | | doses, First dose on Sat03/05/17 | | | | | | | at 2000, Last dose on Sat | | | | | | | 03/09/17 at 1800, HIGH RISK | | | | | | | MEDICATION-CHEMOTHERAPY Start | | | | | | | infusion 4 hours after start of | | | | | | | Fludarabine each day. | | | | | | + +---------+ + +-------+---+ +---------+ + +-------+---+ | New Bag | 03/08/20 | 4,200 mg | 271 | | | | 17 18:35 | | mL/hr | | | | PST | | | | +---------+ + +-------+---+ | New Bag | 03/09/20 | 4,200 mg | 271 | | | | 17 18:20 | | mL/hr | | | | PST | | | | +---------+ + +-------+---+ +---+---+ | | | +---+---+ + +-------+ +-------+---+---+ | dexamethasone (DECADRON) tablet | Given | | 20 mg | | | | 20 mg 20 mg, oral, EVERY 24 | | 7 12:55 | | | | | HOURS, 5 doses, First dose on Sat | | PST | | | | | 03/05/17 at 1430, Last dose on | | | | | | | 03/09/17 at 1300 | | | | | | + +-------+ +-------+---+---+ +-------+ +-------+---+---+ | Given | 03/08/20 | 20 mg | | | | | 17 12:56 | | | | | | PST | | | | +-------+ +-------+---+---+ | Given | 03/09/20 | 20 mg | | | | | 17 14:08 | | | | | | PST | | | | +-------+ +-------+---+---+ +---+---+ | | | +---+---+ + +-------+ +-------+---+---+ | diphenhydrAMINE (BENADRYL) | Given | 03/23/20 | 25 mg | | | | capsule 25-50 mg 25-50 mg, oral, | | 17 12:15 | | | | | EVERY 4 HOURS NEEDED, | | PST | | | | | Starting 03/02/17 at 1741, | | | | | | | Until [place] 03/28/17 at 1042, blood | | | | | | | product premedication | | | | | | + +-------+ +-------+---+---+ +-------+ +-------+---+---+ | Given | 03/26/20 | 25 mg | | | | | 17 12:03 | | | | | | PST | | | | +-------+ +-------+---+---+ | Given | 03/27/20 | 25 mg | | | | | 17 21:41 | | | | | | PST | | | | +-------+ +-------+---+---+ +---+---+ | | | +---+---+ + +-------+ +-------+---+---+ | diphenhydrAMINE (BENADRYL) | Given | 03/28/20 | 25 mg | | | | capsule 25-50 mg 25-50 mg, oral, | | 17 22:05 | | | | | EVERY 4 HOURS NEEDED, | | PST | | | | | Starting [facility] 03/28/17 at 1042, | | | | | | | Until 04/01/17 at 2218, blood | | | | | | | product premedication or insomnia | | | | | | + +-------+ +-------+---+---+ +---+---+ | | | +---+---+ + +-------+ +-------+---+---+ | | Given | | 15 mL | | | | [id number]-qcxybdryf-NPIUTL | | 7 08:05 | | | | | (SPECIAL MOUTHWASH) suspension | | PST | | | | | (compound) 10-15 mL 10-15 mL, | | | | | | | oral, EVERY 1 HOUR NEEDED, | | | | | | | Starting 03/02/17 at 1733, | | | | | | | Until 04/01/17 at 2218, | | | | | | | oral/esophageal pain | | | | | | + +-------+ +-------+---+---+ +-------+ +-------+---+---+ | Given | | 15 mL | | | | | 7 14:10 | | | | | | PST | | | | +-------+ +-------+---+---+ | Given | | 15 mL | | | | | 7 19:42 | | | | | | PST | | | | +-------+ +-------+---+---+ +---+---+ | | | +---+---+ + +-------+ +--------+---+---+ | doxycycline monohydrate | Given | 03/11/20 | 100 mg | | | | (MONODOX) capsule 100 mg 100 mg, | | 17 08:18 | | | | | oral, TWICE DAILY, 10 doses, | | PST | | | | | First dose on 03/10/17 at | | | | | | | 1330, Last dose on [place] 03/14/17 | | | | | | | at 2100 | | | | | | + +-------+ +--------+---+---+ +-------+ +--------+---+---+ | Given | 03/11/20 | 100 mg | | | | | 17 20:26 | | | | | | PST | | | | +-------+ +--------+---+---+ | Given | 03/12/20 | 100 mg | | | | | 17 09:04 | | | | | | PST | | | | +-------+ +--------+---+---+ +---+---+ | | | +---+---+ + +-------+ +-------+---+---+ | DULoxetine (CYMBALTA) capsule | Given | | 30 mg | | | | 30 mg 30 mg, oral, TWICE DAILY, | | 7 08:45 | | | | | First dose on 03/10/17 at | | PST | | | | | 0900, Until Discontinued | | | | | | + +-------+ +-------+---+---+ +-------+ +-------+---+---+ | Given | | 30 mg | | | | | 7 21:13 | | | | | | PST | | | | +-------+ +-------+---+---+ | Given | | 30 mg | | | | | 7 09:21 | | | | | | PST | | | | +-------+ +-------+---+---+ +---+---+ | | | +---+---+ + +-------+ +-------+---+---+ | DULoxetine (CYMBALTA) capsule | Given | | 60 mg | | | | 60 mg 60 mg, oral, TWICE DAILY, | | 7 21:31 | | | | | First dose on 03/02/17 at | | PST | | | | | 2100, Until Discontinued | | | | | | + +-------+ +-------+---+---+ +-------+ +-------+---+---+ | Given | | 60 mg | | | | | 7 08:51 | | | | | | PST | | | | +-------+ +-------+---+---+ | Given | | 60 mg | | | | | 7 20:54 | | | | | | PST | | | | +-------+ +-------+---+---+ +---+---+ | | | +---+---+ + +-------+ +-------+---+---+ | DULoxetine (CYMBALTA) capsule | Given | | 60 mg | | | | 60 mg 60 mg, oral, DAILY, First | | 7 10:35 | | | | | dose on 03/06/17 at 1000, | | PST | | | | | Until Discontinued | | | | | | + +-------+ +-------+---+---+ +-------+ +-------+---+---+ | Given | 03/08/20 | 60 mg | | | | | 17 09:49 | | | | | | PST | | | | +-------+ +-------+---+---+ | Given | 03/09/20 | 60 mg | | | | | 17 08:36 | | | | | | PST | | | | +-------+ +-------+---+---+ +---+---+ | | | +---+---+ + +-------+ +-------+---+---+ | DULoxetine (CYMBALTA) capsule | Given | 03/09/20 | 60 mg | | | | 60 mg 60 mg, oral, TWICE DAILY, | | 17 21:24 | | | | | First dose on 03/09/17 at | | PST | | | | | 2100, Until Discontinued | | | | | | + +-------+ +-------+---+---+ +---+---+ | | | +---+---+ + +-------+ +---------+---+---------+ | filgrastim-sndz (OSMANYXIO) | Given | | 300 mcg | | Abdomen | | injection 300 mcg 300 mcg, | | 7 16:46 | | | | | subcutaneous, ONCE, 1 dose, Mon | | PST | | | | | 03/04/17 at 1500 | | | | | | + +-------+ +---------+---+---------+ +---+---+ | | | +---+---+ + +-------+ +---------+---+---------+ | filgrastim-dchristopher (VIOLETTA) | Given | | 300 mcg | | Abdomen | | injection 300 mcg 300 mcg, | | 7 17:24 | | | | | subcutaneous, EVERY EVENING AT | | PST | | | | | 1700, First dose on Sat03/05/17 | | | | | | | at 1700, Until Discontinued | | | | | | + +-------+ +---------+---+---------+ +-------+ +---------+---+---------+ | Given | | 300 mcg | | Abdomen | | | 7 17:04 | | | | | | PST | | | | +-------+ +---------+---+---------+ | Given | | 300 mcg | | Abdomen | | | 7 15:39 | | | | | | PST | | | | +-------+ +---------+---+---------+ +---+---+ | | | +---+---+ + +-------+ +---------+---+---------+ | filgrastim-sndz (ERICHO) | Given | | 300 mcg | | Abdomen | | injection 300 mcg 300 mcg, | | 7 13:50 | | | | | subcutaneous, ONCE, 1 dose, Mon | | PST | | | | | 04/01/17 at 1100 | | | | | | + +-------+ +---------+---+---------+ +---+---+ | | | +---+---+ + +---------+ +-------+--------+---+ | fludarabine (FLUDARA) 60 mg in | New Bag | | 60 mg | 204.8 | | | NaCl 0.9 % IV 60 mg (rounded | | 7 15:00 | | mL/hr | | | from 61.5 mg = 30 mg/m2 | | PST | | | | | 2.05 m2 Treatment plan recorded | | | | | | | BSA), intravenous, Administer | | | | | | | over 30 Minutes, EVERY 24 HOURS, | | | | | | | 5 doses, First dose on Tue | | | | | | | 03/05/17 at 1600, Last dose on Sat | | | | | | | 03/09/17 at 1400, Administer on | | | | | | | days 1 through 5 HIGH ALERT | | | | | | | MEDICATION-CHEMOTHERAPY | | | | | | + +---------+ +-------+--------+---+ +---------+ +-------+--------+---+ | New Bag | 03/08/20 | 60 mg | 204.8 | | | | 17 14:28 | | mL/hr | | | | PST | | | | +---------+ +-------+--------+---+ | New Bag | 03/09/20 | 60 mg | 204.8 | | | | 17 14:17 | | mL/hr | | | | PST | | | | +---------+ +-------+--------+---+ +---+---+ | | | +---+---+ + +-------+ +-------+---+---+ | furosemide (LASIX) injection 20 | Given | | 20 mg | | | | mg 20 mg, intravenous, ONCE, 1 | | 7 16:28 | | | | | dose, 03/05/17 at 1630 | | PST | | | | + +-------+ +-------+---+---+ +---+---+ | | | +---+---+ + +-------+ +-------+---+---+ | furosemide (LASIX) injection 20 | Given | | 20 mg | | | | mg 20 mg, intravenous, ONCE, 1 | | 7 12:56 | | | | | dose, [facility] 03/07/17 at 1230 | | PST | | | | + +-------+ +-------+---+---+ +---+---+ | | | +---+---+ + +-------+ +-------+---+---+ | furosemide (LASIX) injection 40 | Given | 03/08/20 | 40 mg | | | | mg 40 mg, intravenous, ONCE, | | 17 16:27 | | | | | dose, [place] 03/08/17 at 1445 | | PST | | | | + +-------+ +-------+---+---+ +---+---+ | | | +---+---+ + +-------+ +-------+---+---+ | furosemide (LASIX) injection 40 | Given | 03/10/20 | 40 mg | | | | mg 40 mg, intravenous, ONCE, 09:59 | | | | | dose, [place] 03/10/17 at 0815 | | PST | | | | + +-------+ +-------+---+---+ +---+---+ | | | +---+---+ + +-------+ +-------+---+---+ | furosemide (LASIX) injection 40 | Given | 03/11/20 | 40 mg | | | | mg 40 mg, intravenous, ONCE, 11:19 | | | | | dose, [facility] 03/11/17 at 1030 | | PST | | | | + +-------+ +-------+---+---+ +---+---+ | | | +---+---+ + +-------+ +-------+---+---+ | furosemide (LASIX) injection 40 | Given | 03/20/20 | 40 mg | | | | mg 40 mg, intravenous, ONCE, 1 | | 17 14:32 | | | | | dose, 03/20/17 at 1415 | | PST | | | | + +-------+ +-------+---+---+ +---+---+ | | | +---+---+ + +-------+ +-------+---+---+ | hydrALAZINE (APRESOLINE) tablet | Given | 03/17/20 | 25 mg | | | | 25 mg 25 mg, oral, THREE TIMES | | 17 10:42 | | | | | DAILY NEEDED, Starting Sun | | PST | | | | | 03/17/17 at 1021, Until Sun | | | | | | | 03/17/17 at 1552, For SBP>160 or | | | | | | | DBP>100 | | | | | | + +-------+ +-------+---+---+ +---+---+ | | | +---+---+ + +-------+ +-------+---+---+ | hydrALAZINE (APRESOLINE) tablet | Given | 03/17/20 | 50 mg | | | | 50 mg 50 mg, oral, THREE TIMES | | 17 16:57 | | | | | DAILY NEEDED, Starting Sun | | PST | | | | | 03/17/17 at 1552, Until Mon | | | | | | | 04/01/17 at 2218, For SBP>160 or | | | | | | | DBP>100 | | | | | | + +-------+ +-------+---+---+ +-------+ +-------+---+---+ | Given | 03/20/20 | 50 mg | | | | | 17 08:21 | | | | | | PST | | | | +-------+ +-------+---+---+ | Given | 03/20/20 | 50 mg | | | | | 17 14:09 | | | | | | PST | | | | +-------+ +-------+---+---+ +---+---+ | | | +---+---+ + + + +---+---+---+ | hydrocortisone (PROCTOCORT) 1 % | Pt | 03/26/20 | | | | | rectal cream rectal, THREE | Administ | 17 11:00 | | | | | TIMES DAILY, First dose on Sun | ered | PST | | | | | 03/10/17 at 1600, Until | | | | | | | Discontinued | | | | | | + + + +---+---+---+ + + +---+---+---+ | Pt Administered | 03/26/20 | | | | | | 17 16:27 | | | | | | PST | | | | + + +---+---+---+ | Pt Administered | 03/27/20 | | | | | | 17 09:10 | | | | | | PST | | | | + + +---+---+---+ +---+---+ | | | +---+---+ + +-------+ +---+---+---+ | hydrocortisone 1 % cream | Given | 03/28/20 | | | | | topical, TWICE DAILY, First dose | | 17 21:48 | | | | | on 03/17/17 at 2100, Until | | PST | | | | | Discontinued | | | | | | + +-------+ +---+---+---+ +-------+ +---+---+---+ | Given | | | | | | | 7 08:26 | | | | | | PST | | | | +-------+ +---+---+---+ | Given | | | | | | | 7 08:52 | | | | | | PST | | | | +-------+ +---+---+---+ +---+---+ | | | +---+---+ + +-------+ +--------+---+---+ | HYDROmorphone (DILAUDID) | Given | 03/26/20 | 0.2 mg | | | | injection 0.2-0.6 mg 0.2-0.6 mg, | | 17 02:28 | | | | | intravenous, EVERY 2 HOURS | | PST | | | | | NEEDED, Starting 03/02/17 at | | | | | | | 1744, Until 04/01/17 at 2218, | | | | | | | severe pain | | | | | | + +-------+ +--------+---+---+ +---+---+ | | | +---+---+ + +-------+ + +---+---+ | hydroxyurea (HYDREA) capsule | Given | | 1,000 mg | | | | 1,000 mg 1,000 mg, oral, EVERY | | 7 21:30 | | | | | 12 HOURS, First dose on Mon | | PST | | | | | 03/04/17 at 2100, Until | | | | | | | Discontinued | | | | | | + +-------+ + +---+---+ +-------+ + +---+---+ | Given | | 1,000 mg | | | | | 7 08:52 | | | | | | PST | | | | +-------+ + +---+---+ +---+---+ | | | +---+---+ + +-------+ + +---+---+ | hydroxyurea (HYDREA) capsule | Given | | 2,000 mg | | | | 2,000 mg 2,000 mg, oral, EVERY 4 | | 7 21:56 | | | | | HOURS, First dose on 03/02/17 | | PDT | | | | | at 2130, Until Discontinued | | | | | | + +-------+ + +---+---+ +-------+ + +---+---+ | Given | | 2,000 mg | | | | | 7 00:03 | | | | | | PDT | | | | +-------+ + +---+---+ | Given | | 2,000 mg | | | | | 7 03:55 | | | | | | PST | | | | +-------+ + +---+---+ +---+---+ | | | +---+---+ + +-------+ + +---+---+ | hydroxyurea (HYDREA) capsule | Given | | 2,000 mg | | | | 2,000 mg 2,000 mg, oral, EVERY 6 | | 7 09:44 | | | | | HOURS, First dose on 03/03/17 | | PST | | | | | at 1000, Until Discontinued | | | | | | + +-------+ + +---+---+ +---+---+ | | | +---+---+ + +-------+ + +---+---+ | hydroxyurea (HYDREA) capsule | Given | | 2,000 mg | | | | 2,000 mg 2,000 mg, oral, EVERY | | 7 20:49 | | | | | 12 HOURS, First dose on Sun | | PST | | | | | 03/03/17 at 2100, Until | | | | | | | Discontinued | | | | | | + +-------+ + +---+---+ +-------+ + +---+---+ | Given | | 2,000 mg | | | | | 7 08:16 | | | | | | PST | | | | +-------+ + +---+---+ +---+---+ | | | +---+---+ + +---------+ +-------+-------+---+ | IDArubicin (IDAMYCIN) 16 mg in | New Bag | | 16 mg | 232 | | | dextrose 5 % IV 16 mg (rounded | | 7 17:00 | | mL/hr | | | from 16.4 mg = 8 mg/m2 | | PST | | | | | 2.05 m2 Treatment plan recorded | | | | | | | BSA), intravenous, Administer | | | | | | | over 30 Minutes, EVERY 24 HOURS, | | | | | | | 3 doses, First dose on Sat | | | | | | | 03/05/17 at 1700, Last dose on Sat | | | | | | | 03/07/17 at 1500, Days 1, 2 and | | | | | | | 3. HIGH ALERT | | | | | | | MEDICATION-CHEMOTHERAPY | | | | | | | Vesicant. Administer through | | | | | | | running IV line. Stop infusing if | | | | | | | pain at injection site. Protect | | | | | | | from light. | | | | | | + +---------+ +-------+-------+---+ +---------+ +-------+-------+---+ | New Bag | | 16 mg | 232 | | | | 7 16:04 | | mL/hr | | | | PST | | | | +---------+ +-------+-------+---+ | New Bag | | 16 mg | 232 | | | | 7 16:00 | | mL/hr | | | | PST | | | | +---------+ +-------+-------+---+ +---+---+ | | | +---+---+ + +---------+ +-------+-------+---+ | lactated Ringers IV 125 mL/hr, | New Bag | | 125 | 125 | | | intravenous, CONTINUOUS, | | 7 18:14 | mL/hr | mL/hr | | | Starting 03/02/17 at 1815, | | PDT | | | | | Until 03/03/17 at 0708 | | | | | | + +---------+ +-------+-------+---+ + + +-------+-------+---+ | New Bag | | 125 | 125 | | | | 7 20:31 | mL/hr | mL/hr | | | | PDT | | | | + + +-------+-------+---+ | Rate/Dose Verify | | 125 | 125 | | | | 7 00:00 | mL/hr | mL/hr | | | | PDT | | | | + + +-------+-------+---+ +---+---+ | | | +---+---+ + +---------+ + +---+---+ | lactated Ringers IV 1,000 mL, | New Bag | | 1,000 mL | | | | intravenous, ONCE, 1 dose, Sat | | 7 20:38 | | | | | 03/02/17 at 2015 | | PDT | | | | + +---------+ + +---+---+ +---+---+ | | | +---+---+ + +-------+ + +---+---+ | levothyroxine tablet 37.5 mcg | Given | | 37.5 mcg | | | | 37.5 mcg, oral, BEFORE BREAKFAST, | | 7 06:05 | | | | | First dose on [facility] 03/28/17 at | | PST | | | | | 0630, Until Discontinued | | | | | | + +-------+ + +---+---+ +-------+ + +---+---+ | Given | | 37.5 mcg | | | | | 7 06:54 | | | | | | PST | | | | +-------+ + +---+---+ | Given | | 37.5 mcg | | | | | 7 04:20 | | | | | | PST | | | | +-------+ + +---+---+ +---+---+ | | | +---+---+ + +-------+ +--------+---+---+ | levothyroxine tablet 50 mcg 50 | Given | 03/25/20 | 50 mcg | | | | mcg, oral, DAILY, First dose on | | 17 05:00 | | | | | 03/02/17 at 2000, Until | | PST | | | | | Discontinued | | | | | | + +-------+ +--------+---+---+ +-------+ +--------+---+---+ | Given | 03/26/20 | 50 mcg | | | | | 17 06:30 | | | | | | PST | | | | +-------+ +--------+---+---+ | Given | 03/27/20 | 50 mcg | | | | | 17 06:13 | | | | | | PST | | | | +-------+ +--------+---+---+ +---+---+ | | | +---+---+ + +-------+ +------+---+---+ | lisinopril (PRINIVIL) tablet 5 | Given | | 5 mg | | | | mg 5 mg, oral, DAILY, First dose | | 7 08:51 | | | | | on Sat03/21/17 at 1530, Until | | PST | | | | | Discontinued | | | | | | + +-------+ +------+---+---+ +-------+ +------+---+---+ | Given | | 5 mg | | | | | 7 08:45 | | | | | | PST | | | | +-------+ +------+---+---+ | Given | | 5 mg | | | | | 7 09:21 | | | | | | PST | | | | +-------+ +------+---+---+ +---+---+ | | | +---+---+ + +-------+ +------+---+---+ | loperamide (IMODIUM) capsule 2 | Given | 03/15/20 | 2 mg | | | | mg 2 mg, oral, NEEDED, | | 17 09:19 | | | | | Starting 03/02/17 at 1733, | | PST | | | | | Until 04/01/17 at 2218, after | | | | | | | each loose stool | | | | | | + +-------+ +------+---+---+ +-------+ +------+---+---+ | Given | 03/15/20 | 2 mg | | | | | 17 20:17 | | | | | | PST | | | | +-------+ +------+---+---+ | Given | 03/16/20 | 2 mg | | | | | 17 14:51 | | | | | | PST | | | | +-------+ +------+---+---+ +---+---+ | | | +---+---+ + +-------+ +--------+---+---+ | LORazepam (ATIVAN) tablet 0.5 | Given | | 0.5 mg | | | | mg 0.5 mg, oral, EVERY 8 HOURS | | 7 03:48 | | | | | NEEDED, Starting 03/02/17 | | PST | | | | | at 1807, Until 03/04/17 at | | | | | | | 0839, Nausea/Vomiting | | | | | | + +-------+ +--------+---+---+ +-------+ +--------+---+---+ | Given | | 0.5 mg | | | | | 7 05:01 | | | | | | PST | | | | +-------+ +--------+---+---+ +---+---+ | | | +---+---+ + +-------+ +--------+---+---+ | LORazepam (ATIVAN) tablet 0.5 | Given | 03/26/20 | 0.5 mg | | | | mg 0.5 mg, oral, EVERY 6 HOURS | | 17 23:08 | | | | | NEEDED, Starting 03/04/17 | | PST | | | | | at 0845, Until 04/01/17 at | | | | | | | 2218, anxiety, Nausea/Vomiting | | | | | | + +-------+ +--------+---+---+ +-------+ +--------+---+---+ | Given | | 0.5 mg | | | | | 7 21:13 | | | | | | PST | | | | +-------+ +--------+---+---+ | Given | | 0.5 mg | | | | | 7 06:47 | | | | | | PST | | | | +-------+ +--------+---+---+ +---+---+ | | | +---+---+ + +-------+ +-------+---+---+ | midostaurin (RYDAPT) cap 50 mg | Given | 03/23/20 | 50 mg | | | | 50 mg, oral, EVERY , 14 | | 17 12:14 | | | | | doses, First dose on Sat03/12/17 | | PST | | | | | at 1200, Last dose on Sat | | | | | | | 03/25/17 at 1200 | | | | | | + +-------+ +-------+---+---+ +-------+ +-------+---+---+ | Given | 03/24/20 | 50 mg | | | | | 17 12:03 | | | | | | PST | | | | +-------+ +-------+---+---+ | Given | 03/25/20 | 50 mg | | | | | 17 13:24 | | | | | | PST | | | | +-------+ +-------+---+---+ +---+---+ | | | +---+---+ + +-------+ +-------+---+---+ | omeprazole (PRILOSEC) capsule | Given | | 20 mg | | | | 20 mg 20 mg, oral, BEFORE | | 7 05:58 | | | | | BREAKFAST, First dose on Sun | | PST | | | | | 03/03/17 at 0630, Until | | | | | | | Discontinued | | | | | | + +-------+ +-------+---+---+ +-------+ +-------+---+---+ | Given | | 20 mg | | | | | 7 05:29 | | | | | | PST | | | | +-------+ +-------+---+---+ | Given | | 20 mg | | | | | 7 04:14 | | | | | | PST | | | | +-------+ +-------+---+---+ +---+---+ | | | +---+---+ + +-------+ +-------+---+---+ | ondansetron (ZOFRAN) tablet 24 | Given | | 24 mg | | | | mg 24 mg, oral, EVERY 24 HOURS, | | 7 12:55 | | | | | 5 doses, First dose on Tue | | PST | | | | | 03/05/17 at 1430, Last dose on Sat | | | | | | | 03/09/17 at 1300 | | | | | | + +-------+ +-------+---+---+ +-------+ +-------+---+---+ | Given | 03/08/20 | 24 mg | | | | | 17 12:56 | | | | | | PST | | | | +-------+ +-------+---+---+ | Given | 03/09/20 | 24 mg | | | | | 17 14:08 | | | | | | PST | | | | +-------+ +-------+---+---+ +---+---+ | | | +---+---+ + +-------+ +------+---+---+ | ondansetron (ZOFRAN) tablet 4 | Given | 03/12/20 | 4 mg | | | | mg 4 mg, oral, EVERY 24 HOURS, | | 17 11:03 | | | | | 14 doses, First dose on Sat | | PST | | | | | 03/12/17 at 1100, Last dose on | | | | | | | 03/25/17 at 1100 | | | | | | + +-------+ +------+---+---+ +-------+ +------+---+---+ | Given | 03/13/20 | 4 mg | | | | | 17 11:17 | | | | | | PST | | | | +-------+ +------+---+---+ +---+---+ | | | +---+---+ + +-------+ +------+---+---+ | ondansetron (ZOFRAN) tablet 8 | Given | 03/21/20 | 8 mg | | | | mg 8 mg, oral, TWICE DAILY, | | 17 08:24 | | | | | First dose on [facility] 03/14/17 at | | PST | | | | | 2100, Until Discontinued | | | | | | + +-------+ +------+---+---+ +-------+ +------+---+---+ | Given | 03/21/20 | 8 mg | | | | | 17 20:20 | | | | | | PST | | | | +-------+ +------+---+---+ | Given | 03/22/20 | 8 mg | | | | | 17 09:25 | | | | | | PST | | | | +-------+ +------+---+---+ +---+---+ | | | +---+---+ + +-------+ +------+---+---+ | ondansetron (ZOFRAN) tablet 8 | Given | | 8 mg | | | | mg 8 mg, oral, EVERY 12 HOURS | | 7 17:09 | | | | | NEEDED, Starting Sat03/22/17 at | | PST | | | | | 1000, Until Sat04/01/17 at 2218, | | | | | | | nausea/vomiting, first line | | | | | | + +-------+ +------+---+---+ +-------+ +------+---+---+ | Given | | 8 mg | | | | | 7 15:39 | | | | | | PST | | | | +-------+ +------+---+---+ +---+---+ | | | +---+---+ + +-------+ +-------+---+---+ | oxybutynin CR (DITROPAN-XL) | Given | | 15 mg | | | | tablet 15 mg 15 mg, oral, DAILY, | | 7 08:51 | | | | | First dose on 03/02/17 at | | PST | | | | | 2000, Until Discontinued | | | | | | + +-------+ +-------+---+---+ +-------+ +-------+---+---+ | Given | | 15 mg | | | | | 7 08:45 | | | | | | PST | | | | +-------+ +-------+---+---+ | Given | | 15 mg | | | | | 7 09:21 | | | | | | PST | | | | +-------+ +-------+---+---+ +---+---+ | | | +---+---+ + +-------+ +------+---+---+ | oxyCODONE (immediate release) | Given | | 5 mg | | | | (ROXICODONE) tablet 5-10 mg 5-10 | | 7 21:32 | | | | | mg, oral, EVERY 4 HOURS | | PST | | | | | NEEDED, Starting 03/02/17 at | | | | | | | 1741, Until 04/01/17 at 2218, | | | | | | | moderate pain | | | | | | + +-------+ +------+---+---+ +-------+ +-------+---+---+ | Given | | 5 mg | | | | | 7 05:30 | | | | | | PST | | | | +-------+ +-------+---+---+ | Given | | 10 mg | | | | | 7 06:12 | | | | | | PST | | | | +-------+ +-------+---+---+ +---+---+ | | | +---+---+ + +-------+ + +---+---+ | oxymetazoline (AFRIN) 0.05 % | Given | | 2 sprays | | | | nasal spray 2 spray 2 spray, | | 7 11:47 | | | | | both nostrils, TWICE DAILY, 2 | | PST | | | | | doses, First dose on Sat03/05/17 | | | | | | | at 0900, Last dose on Sat03/05/17 | | | | | | | at 2100 | | | | | | + +-------+ + +---+---+ +-------+ + +---+---+ | Given | | 2 sprays | | | | | 7 21:15 | | | | | | PST | | | | +-------+ + +---+---+ +---+---+ | | | +---+---+ + +---------+ +--------+---+---+ | pentamidine (PENTAM) IV 300 mg | New Bag | 03/09/20 | 300 mg | | | | 300 mg, intravenous, EVERY 4 | | 17 11:27 | | | | | WEEKS, First dose on Sat03/09/17 | | PST | | | | | at 0900, Until Discontinued | | | | | | + +---------+ +--------+---+---+ +---+---+ | | | +---+---+ + +---------+ +-------+---+---+ | phytonadione (vitamin K1) | New Bag | | 10 mg | | | | (VITAMIN K, MEPHYTON) IV 10 mg | | 7 12:32 | | | | | 10 mg, intravenous, DAILY, 3 | | PST | | | | | doses, First dose on Sat03/06/17 | | | | | | | at 1130, Last dose on Sat | | | | | | | 03/08/17 at 0900 | | | | | | + +---------+ +-------+---+---+ +---------+ +-------+ +---+ | New Bag | | 10 mg | 50 mL/hr | | | | 7 10:26 | | | | | | PST | | | | +---------+ +-------+ +---+ | New Bag | 03/08/20 | 10 mg | | | | | 17 09:49 | | | | | | PST | | | | +---------+ +-------+ +---+ +---+---+ | | | +---+---+ + +-------+ +-------+---+---+ | phytonadione (vitamin K1) | Given | | 10 mg | | | | (VITAMIN K, MEPHYTON) tablet 10 | | 7 14:34 | | | | | mg 10 mg, oral, DAILY, 3 doses, | | PST | | | | | First dose on Sat03/05/17 at | | | | | | | 1345, Last dose on Sat03/07/17 at | | | | | | | 0900 | | | | | | + +-------+ +-------+---+---+ +---+---+ | | | +---+---+ + +-------+ +-------+---+---+ | piperacillin-tazobactam (ZOSYN) | Given | | 4.5 g | | | | IV (minibag+) 4.5 g 4.5 g, | | 7 17:04 | | | | | intravenous, EVERY 6 HOURS, First | | PST | | | | | dose on Sat03/21/17 at 1415, | | | | | | | Until Discontinued | | | | | | + +-------+ +-------+---+---+ +-------+ +-------+---+---+ | Given | | 4.5 g | | | | | 7 23:54 | | | | | | PST | | | | +-------+ +-------+---+---+ | Given | | 4.5 g | | | | | 7 05:29 | | | | | | PST | | | | +-------+ +-------+---+---+ +---+---+ | | | +---+---+ + +-------+ +------+---+---+ | polyethylene glycol (MIRALAX) | Given | | 17 g | | | | packet 17 g 17 g, oral, DAILY | | 7 20:15 | | | | | NEEDED, Starting 03/03/17 at | | PST | | | | | 1207, Until 04/01/17 at 2218, | | | | | | | constipation refractory to senna | | | | | | + +-------+ +------+---+---+ +---+---+ | | | +---+---+ + +-------+ +--------+---+---+ | posaconazole DR (NOXAFIL) | Given | 03/08/20 | 300 mg | | | | tablet 300 mg 300 mg, oral, | | 17 09:57 | | | | | TWICE DAILY, 2 doses, First dose | | PST | | | | | on Sat03/08/17 at 1130, Last | | | | | | | dose on Sat03/08/17 at 2100 | | | | | | + +-------+ +--------+---+---+ +-------+ +--------+---+---+ | Given | 03/08/20 | 300 mg | | | | | 17 20:30 | | | | | | PST | | | | +-------+ +--------+---+---+ +---+---+ | | | +---+---+ + +-------+ +--------+---+---+ | posaconazole DR (NOXAFIL) | Given | 12/2/201 | 300 mg | | | | tablet 300 mg 300 mg, oral, | | 7 08:51 | | | | | DAILY, First dose on 03/09/17 | | PST | | | | | at 0900, Until Discontinued | | | | | | + +-------+ +--------+---+---+ +-------+ +--------+---+---+ | Given | | 300 mg | | | | | 7 08:45 | | | | | | PST | | | | +-------+ +--------+---+---+ | Given | | 300 mg | | | | | 7 09:20 | | | | | | PST | | | | +-------+ +--------+---+---+ +---+---+ | | | +---+---+ + +---------+ +--------+---+---+ | potassium chloride IV (central | New Bag | 03/16/20 | 40 mEq | | | | line) 40 mEq 40 mEq, | | 17 03:22 | | | | | intravenous, NEEDED, Starting | | PST | | | | | 03/15/17 at 2105, Until Mon | | | | | | | 04/01/17 at 2218, potassium level | | | | | | | of 3-3.4 mmol/L. Administer if | | | | | | | patient intolerant of oral | | | | | | | medications. | | | | | | + +---------+ +--------+---+---+ +---------+ +--------+---+---+ | New Bag | 03/27/20 | 40 mEq | | | | | 17 04:18 | | | | | | PST | | | | +---------+ +--------+---+---+ | New Bag | | 40 mEq | | | | | 7 04:14 | | | | | | PST | | | | +---------+ +--------+---+---+ +---+---+ | | | +---+---+ + +-------+ +--------+---+---+ | potassium chloride SR (K-DUR) | Given | 03/15/20 | 40 mEq | | | | tablet 40 mEq 40 mEq, oral, | | 17 04:59 | | | | | NEEDED, Starting 03/02/17 at | | PST | | | | | 1733, Until 04/01/17 at 2218, | | | | | | | potassium level 3-3.4 mmol/L | | | | | | + +-------+ +--------+---+---+ +-------+ +--------+---+---+ | Given | 03/15/20 | 40 mEq | | | | | 17 18:02 | | | | | | PST | | | | +-------+ +--------+---+---+ | Given | 03/17/20 | 40 mEq | | | | | 17 07:59 | | | | | | PST | | | | +-------+ +--------+---+---+ +---+---+ | | | +---+---+ + +-------+ +--------+---+---+ | potassium chloride SR (K-DUR) | Given | 03/11/20 | 40 mEq | | | | tablet 40 mEq 40 mEq, oral, | | 17 11:19 | | | | | ONCE, 1 dose, 03/11/17 at | | PST | | | | | 1145 | | | | | | + +-------+ +--------+---+---+ +---+---+ | | | +---+---+ + +-------+ +--------+---+---+ | potassium chloride SR (K-DUR) | Given | 03/15/20 | 40 mEq | | | | tablet 40 mEq 40 mEq, oral, | | 17 09:19 | | | | | ONCE, 1 dose, Sat03/15/17 at | | PST | | | | | 0845 | | | | | | + +-------+ +--------+---+---+ +---+---+ | | | +---+---+ + +-------+ +---------+---+---+ | prednisoLONE acetate (PRED | Given | 03/13/20 | 2 drops | | | | FORTE) 1 % ophthalmic drops, | | 17 04:21 | | | | | suspension 2 drop 2 drop, Both | | PST | | | | | Eyes, EVERY 6 HOURS, 32 doses, | | | | | | | First dose on Sat03/05/17 at | | | | | | | 1930, Last dose on Sat03/13/17 | | | | | | | at 1600 | | | | | | + +-------+ +---------+---+---+ +-------+ +---------+---+---+ | Given | 03/13/20 | 2 drops | | | | | 17 12:10 | | | | | | PST | | | | +-------+ +---------+---+---+ | Given | 03/13/20 | 2 drops | | | | | 17 18:21 | | | | | | PST | | | | +-------+ +---------+---+---+ +---+---+ | | | +---+---+ + +-------+ +-------+---+---+ | prochlorperazine (COMPAZINE) | Given | 03/18/20 | 10 mg | | | | injection 5-10 mg 5-10 mg, | | 17 15:43 | | | | | intravenous, EVERY 4 HOURS | | PST | | | | | NEEDED, Starting Sat03/05/17 at | | | | | | | 1303, Until Sat04/01/17 at 2218, | | | | | | | give as first line agent for | | | | | | | acute or delayed nausea/vomiting | | | | | | + +-------+ +-------+---+---+ +-------+ +-------+---+---+ | Given | 03/19/20 | 5 mg | | | | | 17 15:30 | | | | | | PST | | | | +-------+ +-------+---+---+ | Given | 03/26/20 | 10 mg | | | | | 17 02:32 | | | | | | PST | | | | +-------+ +-------+---+---+ +---+---+ | | | +---+---+ + +-------+ +------+---+---+ | prochlorperazine (COMPAZINE) | Given | | 5 mg | | | | tablet 5 mg 5 mg, oral, DAILY, | | 7 12:04 | | | | | First dose on 03/31/17 at | | PST | | | | | 1100, Until Discontinued | | | | | | + +-------+ +------+---+---+ +-------+ +------+---+---+ | Given | | 5 mg | | | | | 7 09:21 | | | | | | PST | | | | +-------+ +------+---+---+ +---+---+ | | | +---+---+ + +-------+ +------+---+---+ | prochlorperazine (COMPAZINE) | Given | | 5 mg | | | | tablet 5-10 mg 5-10 mg, oral, | | 7 09:08 | | | | | EVERY 4 HOURS NEEDED, Starting | | PST | | | | | 03/05/17 at 1303, Until Mon | | | | | | | 04/01/17 at 2218, give as first | | | | | | | line agent for acute or delayed | | | | | | | nausea/vomiting | | | | | | + +-------+ +------+---+---+ +-------+ +------+---+---+ | Given | | 5 mg | | | | | 7 14:05 | | | | | | PST | | | | +-------+ +------+---+---+ | Given | | 5 mg | | | | | 7 06:44 | | | | | | PST | | | | +-------+ +------+---+---+ +---+---+ | | | +---+---+ + +-------+ +------+---+---+ | prochlorperazine (COMPAZINE) | Given | 03/14/20 | 5 mg | | | | tablet 5-10 mg 5-10 mg, oral, | | 17 08:25 | | | | | EVERY MORNING, First dose on Sat | | PST | | | | | 03/14/17 at 0900, Until | | | | | | | Discontinued | | | | | | + +-------+ +------+---+---+ +---+---+ | | | +---+---+ + +-------+ +------+---+---+ | prochlorperazine (COMPAZINE) | Given | 03/17/20 | 5 mg | | | | tablet 5-10 mg 5-10 mg, oral, | | 17 07:58 | | | | | DAILY, First dose on Sat03/15/17 | | PST | | | | | at 0600, Until Discontinued | | | | | | + +-------+ +------+---+---+ +-------+ +------+---+---+ | Given | 03/18/20 | 5 mg | | | | | 17 09:05 | | | | | | PST | | | | +-------+ +------+---+---+ | Given | 03/19/20 | 5 mg | | | | | 17 05:42 | | | | | | PST | | | | +-------+ +------+---+---+ +---+---+ | | | +---+---+ + +-------+ +------+---+---+ | prochlorperazine (COMPAZINE) | Given | 03/27/20 | 5 mg | | | | tablet 5-10 mg 5-10 mg, oral, | | 17 12:18 | | | | | DAILY, First dose on Sat03/20/17 | | PST | | | | | at 1100, Until Discontinued | | | | | | + +-------+ +------+---+---+ +-------+ +------+---+---+ | Given | 03/28/20 | 5 mg | | | | | 17 11:09 | | | | | | PST | | | | +-------+ +------+---+---+ | Given | | 5 mg | | | | | 7 11:36 | | | | | | PST | | | | +-------+ +------+---+---+ +---+---+ | | | +---+---+ + +-------+ +------+---+---+ | ramelteon (ROZEREM) tablet 8 mg | Given | | 8 mg | | | | 8 mg, oral, AT BEDTIME | | 7 02:54 | | | | | NEEDED, Starting 03/06/17 at | | PST | | | | | 2315, Until Maribel 03/07/17 at 1210, | | | | | | | insomnia | | | | | | + +-------+ +------+---+---+ +---+---+ | | | +---+---+ + +-------+ + +---+---+ | senna-docusate (SENOKOT S) | Given | | 1 tablet | | | | 8.6-50 mg 1-2 tablet 1-2 tablet, | | 7 08:51 | | | | | oral, TWICE DAILY, First dose on | | PST | | | | | 03/03/17 at 1400, Until | | | | | | | Discontinued | | | | | | + +-------+ + +---+---+ +-------+ + +---+---+ | Given | | 2 | | | | | 7 20:56 | tablets | | | | | PST | | | | +-------+ + +---+---+ | Given | 03/08/20 | 1 tablet | | | | | 17 20:30 | | | | | | PST | | | | +-------+ + +---+---+ +---+---+ | | | +---+---+ + +-------+ +-------+---+---+ | simethicone chew (MYLICON) | Given | 03/08/20 | 80 mg | | | | tablet 80 mg 80 mg, oral, THREE | | 17 22:07 | | | | | TIMES DAILY NEEDED, Starting | | PST | | | | | 03/08/17 at 2149, Until Mon | | | | | | | 04/01/17 at 2218, bloating | | | | | | + +-------+ +-------+---+---+ +-------+ +-------+---+---+ | Given | 03/09/20 | 80 mg | | | | | 17 19:33 | | | | | | PST | | | | +-------+ +-------+---+---+ | Given | 03/10/20 | 80 mg | | | | | 17 23:24 | | | | | | PST | | | | +-------+ +-------+---+---+ +---+---+ | | | +---+---+ + +-------+ + +---+---+ | sodium chloride (OCEAN) 0.65 % | Given | 03/21/20 | 2 sprays | | | | nasal spray 2 spray 2 spray, | | 17 08:24 | | | | | both nostrils, NEEDED, | | PST | | | | | Starting Sat03/04/17 at 1119, | | | | | | | Until Sat04/01/17 at 2218, dry | | | | | | | nose | | | | | | + +-------+ + +---+---+ +---+---+ | | | +---+---+ + + + + + +---+ | sodium chloride 0.9% IV | Rate/Dos | | 75 mL/hr | 75 mL/hr | | | infusion 75 mL/hr, intravenous, | e Verify | 7 07:40 | | | | | CONTINUOUS, Starting 03/03/17 | | PST | | | | | at 0745, Until Tu03/05/17 at | | | | | | | 1307 | | | | | | + + + + + +---+ + + + + +---+ | Rate/Dose Verify | | 75 mL/hr | 75 mL/hr | | | | 7 09:00 | | | | | | PST | | | | + + + + +---+ | Rate/Dose Verify | | 75 mL/hr | 75 mL/hr | | | | 7 13:26 | | | | | | PST | | | | + + + + +---+ +---+---+ | | | +---+---+ + + + + + +---+ | sodium chloride 0.9% IV | Rate/Dos | 03/09/20 | 50 mL/hr | 50 mL/hr | | | infusion 50 mL/hr, intravenous, | e Verify | 17 05:49 | | | | | CONTINUOUS, Starting 03/05/17 | | PST | | | | | at 1315, Until 03/10/17 at | | | | | | | 0801 | | | | | | + + + + + +---+ + + + + +---+ | Restarted | 03/09/20 | 50 mL/hr | 50 mL/hr | | | | 17 11:25 | | | | | | PST | | | | + + + + +---+ | Restarted | 03/09/20 | 50 mL/hr | 50 mL/hr | | | | 17 17:30 | | | | | | PST | | | | + + + + +---+ +---+---+ | | | +---+---+ + + + + +-------+---+ | sodium chloride 0.9% IV | Rate/Dos | 03/14/20 | 1,000 mL | 125 | | | infusion 1,000 mL, intravenous, | e Verify | 17 06:00 | | mL/hr | | | NEEDED, Starting 03/10/17 | | PST | | | | | at 0815, Until 04/01/17 at | | | | | | | 2218, 1L NS bolus O/N for po | | | | | | | intake <2L/day | | | | | | + + + + +-------+---+ + + + +-------+---+ | New Bag | 03/15/20 | 1,000 mL | 125 | | | | 17 00:13 | | mL/hr | | | | PST | | | | + + + +-------+---+ | Rate/Dose Verify | 03/15/20 | 1,000 mL | | | | | 17 02:00 | | | | | | PST | | | | + + + +-------+---+ +---+---+ | | | +---+---+ + +---------+ +---------+---+---+ | sodium phosphate IV 30 mmol 30 | New Bag | 03/12/20 | 30 mmol | | | | mmol, intravenous, NEEDED, | | 17 04:03 | | | | | Starting 03/02/17 at 1733, | | PST | | | | | Until 04/01/17 at 2218, | | | | | | | phosphate level 1.6-2 mg/dL | | | | | | + +---------+ +---------+---+---+ +---+---+ | | | +---+---+ + +-------+ +--------+---+---+ | tiotropium (SPIRIVA) inhalation | Given | | 18 mcg | | | | 18 mcg 18 mcg, inhalation, | | 7 08:52 | | | | | DAILY, First dose on 03/02/17 | | PST | | | | | at 2000, Until Discontinued | | | | | | + +-------+ +--------+---+---+ +-------+ +--------+---+---+ | Given | | 18 mcg | | | | | 7 08:46 | | | | | | PST | | | | +-------+ +--------+---+---+ | Given | | 18 mcg | | | | | 7 09:21 | | | | | | PST | | | | +-------+ +--------+---+---+ +---+---+ | | | +---+---+ + +---------+ + +---+---+ | tranexamic acid (CYCLOKAPRON) | New Bag | | 1,000 mg | | | | IV 1,000 mg 1,000 mg, | | 7 15:14 | | | | | intravenous, EVERY 8 HOURS, First | | PST | | | | | dose on Sat03/05/17 at 0830, | | | | | | | Until Discontinued | | | | | | + +---------+ + +---+---+ +---------+ + +---+---+ | New Bag | | 1,000 mg | | | | | 7 22:04 | | | | | | PST | | | | +---------+ + +---+---+ | New Bag | | 1,000 mg | | | | | 7 06:35 | | | | | | PST | | | | +---------+ + +---+---+ +---+---+ | | | +---+---+ + +-------+ +-------+---+---+ | traZODone (DESYREL) dose 25-50 | Given | | 25 mg | | | | mg 25-50 mg, oral, AT BEDTIME | | 7 00:48 | | | | | NEEDED, Starting Maribel 03/07/17 at | | PST | | | | | 1630, Until 04/01/17 at 2218, | | | | | | | insomnia | | | | | | + +-------+ +-------+---+---+ +-------+ +-------+---+---+ | Given | | 25 mg | | | | | 7 21:32 | | | | | | PST | | | | +-------+ +-------+---+---+ | Given | | 25 mg | | | | | 7 21:38 | | | | | | PST | | | | +-------+ +-------+---+---+ +---+---+ | | | +---+---+ + +-------+ +---+---+---+ | triamcinolone acetonide | Given | 03/26/20 | | | | | (KENALOG) 0.1 % ointment | | 17 19:52 | | | | | topical, TWICE DAILY, First dose | | PST | | | | | on Maribel 03/21/17 at 2100, Until | | | | | | | Discontinued | | | | | | + +-------+ +---+---+---+ +-------+ +---+---+------+ | Given | 03/27/20 | | | | | | 17 09:10 | | | | | | PST | | | | +-------+ +---+---+------+ | Given | 03/27/20 | | | Back | | | 17 21:18 | | | | | | PST | | | | +-------+ +---+---+------+ +---+---+ | | | +---+---+ + +---------+ + +---------+---+ | vancomycin (VANCOCIN) IV 1,500 | New Bag | 03/13/20 | 1,500 mg | 5 mL/hr | | | mg 1,500 mg (rounded from | | 17 02:15 | | | | | 1,414.5 mg = 15 mg/kg | | PST | | | | | 94.3 kg), intravenous, EVERY 12 | | | | | | | HOURS, First dose on Sat03/12/17 | | | | | | | at 1300, Until Discontinued | | | | | | + +---------+ + +---------+---+ +---------+ + + +---+ | New Bag | 03/13/20 | 1,500 mg | | | | | 17 13:21 | | | | | | PST | | | | +---------+ + + +---+ | New Bag | 03/14/20 | 1,500 mg | 75 mL/hr | | | | 17 00:58 | | | | | | PST | | | | +---------+ + + +---+ +---+---+ | | | +---+---+ + +---------+ + +---+---+ | vancomycin (VANCOCIN) IV 1,500 | New Bag | 03/14/20 | 1,500 mg | | | | mg 1,500 mg, intravenous, EVERY | | 17 14:01 | | | | | 12 HOURS, First dose on Maribel | | PST | | | | | 03/14/17 at 1300, Until | | | | | | | Discontinued | | | | | | + +---------+ + +---+---+ +---------+ + +-------+---+ | New Bag | 03/15/20 | 1,500 mg | 150 | | | | 17 01:26 | | mL/hr | | | | PST | | | | +---------+ + +-------+---+ | New Bag | 03/15/20 | 1,500 mg | | | | | 17 14:00 | | | | | | PST | | | | +---------+ + +-------+---+ +---+---+ | | | +---+---+ + +---------+ + +---+---+ | vancomycin (VANCOCIN) IV 1,500 | New Bag | 03/21/20 | 1,500 mg | | | | mg 1,500 mg, intravenous, EVERY | | 17 04:33 | | | | | 12 HOURS, First dose on Sat | | PST | | | | | 03/16/17 at 0200, Until | | | | | | | Discontinued | | | | | | + +---------+ + +---+---+ +---------+ + +---+---+ | New Bag | 03/21/20 | 1,500 mg | | | | | 17 17:38 | | | | | | PST | | | | +---------+ + +---+---+ | New Bag | 03/22/20 | 1,500 mg | | | | | 17 04:39 | | | | | | PST | | | | +---------+ + +---+---+ +---+---+ | | | +---+---+ in this encounter
--- OUTSIDE RECORDS SUMMARY | ~2017-05-04 | XMS | Encounter Summary ---
Demographics + + + | Address | [address] | | | [place] [address] | + + + | Home Phone | | + + + | Preferred Language | Unknown | + + + | Marital Status | | + + + | Jainism Affiliation | NON | + + + | Race | White | + + + | Ethnic Group | Not or | + + + Author + + + | Author | [facility] | + + + | Organization | [facility] | + + + | [...] Care Team Providers + +------+-------+ | Care Power Transformer Repairer Name | Role | Phone | + +------+-------+ | Saurav De Los Santos NP | PCP | tel | + +------+-------+ Encounter Details +--------+ + + + + | Date | Type | Department | Care Team | Description | +--------+ + + + + | 04/01/ | Pharmacy | Specialty Pharmacy | | | | 2016 | Visit | Services [address] | | | | | [address] | | | | | | [place], [place] | | | | | | [address] | | | | | | [phone] | | | +--------+ + + + [...]
--- OUTSIDE RECORDS SUMMARY | ~2017-05-04 | XMS | Encounter Summary ---
Demographics + + + | Address | [address] | | | [place] [address] | + + + | Home Phone | | + + + | Preferred Language | Unknown | + + + | Marital Status | | + + + | Yarsani Affiliation | NON | + + + | Race | White | + + + | Ethnic Group | Not or | + + + Author + + + | Author | [facility] | + + + | Organization | [facility] | + + + | Address [...] Care Team Providers + +------+-------+ | Care Cosmetology Teacher Name | Role | Phone | + +------+-------+ | Saurav De Los Santos NP | PCP | tel | + +------+-------+ Reason for Visit Office Visit - E/M Services (Routine) + +--------+ + + + + | Status | Reason | Specialty | Diagnoses / | Referred By | Referred To | | | | | Procedures | Contact | Contact | + +--------+ + + + + | Authorized | | Hematology | Diagnoses | Partha, | Pepe Chavis | | | | Malignancy | Acute | Pepe Vail MD | MD [address] | | | | | myeloblastic | [address] [facility] | [facility] | | | | | leukemia, | [facility] | [facility] | | | | | not having | Rd | Rd [address], | | | | | achieved | [facility], [place] | [place] | | | | | remission | [address] | | | | | | Procedures | Phone: | Phone: | | | | | CT EST | [phone] | [phone] | | | | | PATIENT | Fax: | Fax: | | | | | LEVEL V | [phone] | [phone] | + +--------+ + + + + Encounter Details +--------+---------+ + + + | Date | Type | Department | Care Team | Description | +--------+---------+ + + + | 04/09/ | Office | Center for | Pepe Chavis MD | Acute myeloid | | 2017 | Visit | Hematologic | [address] | leukemia not having | | | | Malignancies at | [address] [facility], | achieved remission | | | | [place] | [place] | (HCC) | | | | [address] | [phone] | | | | | [address] | | | | | | Mailcode: [id number] | | | | | | [facility] | | | | | | [place], [place] | | | | | | [address] | | | | | | [phone] | | | +--------+---------+ + + + [...] + + + | Blood Pressure | 151/79 | 04/09/2017 1:51 PM PST | + + + + | Pulse | 83 | 04/09/2017 1:51 PM PST | + + + + | Temperature | 36.8 C (98.3 F) | 04/09/2017 1:51 PM PST | + + + + | Respiratory Rate | 16 | 04/09/2017 1:51 PM PST | + + + + | Oxygen Saturation | 97% | 04/09/2017 1:51 PM PST | + + + + | Inhaled Oxygen | - | - | | Concentration | | | + + + + | Weight | 86.9 kg (191 lb 9.3 | 04/09/2017 1:51 PM PST | | | oz) | | + + + + | Height | - | - | + + + + | Body Mass Index | 33.94 | 04/09/2017 1:51 PM PST | + + + + in [...] + + + as of this encounter Instructions Patient Instructions - Gloria Ramirez RN - 04/09/2017 3:05 PM PSTIt was nice to see you today. These are the things that were discussed in your appointment today: 1) Your blood counts are coming up and look good. Your platelets and red blood cells are st ill low, but should recover in the next week or so. 2) Your bone marrow biopsy results from 04/04/17 show no evidence of leukemia, however you w ill still need to continue treatment. We are working on setting up treatment with Dr. Osmani stahl. Dr. Chavis recommends that you start receiving Vidaza chemotherapy and continue with th e midostaurin at home. You do not need to start the next round of midostaurin until after th e completion of the 7 days of Vidaza that you will receive with Dr. Alarcon. You will lik shukri start this treatment after , dependent on the schedule that Dr. Alarcon dete rmines. 3) We will continue to look for potential stem cell donors for you. We will keep you posted about this and may set up another visit with one of our transplant doctors if appropriate i n the future. 4) We are giving you some hydration fluid and also changing your PICC dressing today. You w ill need to have your PICC dressing changed again next week on Saturday, 04/16. 5) We will get your medications switched over to be re-filled at the [facility] near your hous e. Gloria Ramirez, RN is Dr. Chavis's Nurse Coordinator. My direct line is [phone] or yo u may contact me through email via [employer]. Please note that I am off on Wednesdays. If you develop any symptoms or have any urgent medical questions, please call the Triage Nu rse at [phone] or [phone] (Saturday - Saturday 8:30-4:30). During after pino rs, please call [phone] and ask to have the BMT Person [employer]acker paged. If you have any questions about appointments or need to call to make a follow up appointmen t, please call the front office representative at [phone]. FOR PRESCRIPTIONS: please allow 48-72 hours for prescription refills. Please make sure no r efills remain prior to calling. If refills remain, please call the pharmacy for a refill. As your Oncology care team, we will care for your oncology specific health concerns. Other non-oncology health concerns will continue to be managed by your Primary Care Provider or ot her specialists involved in your care. Feedback: We value and appreciate your opinion and would like to learn from your experience at [facility]. Please complete the surveys that [facility] sends. Thank you! in this encounter Progress Notes Pepe Chavis MD - 04/09/2017 3:05 PM PSTFormatting of this note may be different from e original. 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 Her CBC showed WBC 78.8, then 117 the following day. She was admitted to [facility] on . 02/14/17 BMBx: - 90% cellularity with 51% blasts+promonocytes - Normal karyotype - GeneTrails showing NPM1, DNMT3A, NRAS, TET2, FLT3 TKD mutations Given genetics this was considered favorable risk with NPM1 mutation. Britton, FLT3 point mutat ions, and DNMT3A do not affect prognosis in NPM1, less data for TET2 but would not change ri sk due to this. She was enrolled on clinical protocol and started on 7+3+Dasatinib induction (day 1 = 02/16/2016). Day 14 BMBx - 5% cellularity, <1.5% blasts. Induction course was complicated by neutropenic fevers, C difficile infection, and new nodu lar LLL>RLL consolidations with surrounding GGO worrisome for invasive fungal infection v s other opportunistic infection emergent while on micafungin. Received empiric Ceftazidime ( 02/22-03/09) d/t Cefepime shortage + Vancomycin (03/06- 03/09) given for persistent fevers -- > Cefepime (02/27-03/12) and DC'd once ANC adequate Serum galactomannan was negative. Pulmono logy deferred bronchoscopy. Ultimately was treated with isavuconazole, and switched to voric onazole on discharge (to continue for ~12 weeks). Dasatinib was continued through day 28 (). Since discharge, had recovery BMBx on 03/14 which showed 60% cellularity with trilineage he matopoiesis, with no morphologic evidence of persistent acute monocytic leukemia. 03/14/2016 Bone Marrow Biopsy - Hypercellular marrow (60%) with trilineage hematopoiesis - No increase in blasts or promonocytes (see Comment) Comment: The original leukemic blast population showed phenotypic overlap with normal monocytes. There is no morphologic evidence of persistent acute monocytic leukemia and the flow cytometric analysis shows 11% CD14+ monocytic cells that are phenotypically within the normal spectrum. Butyrate esterase stains highlight <5% of total marrow cells and the majority of the BE+ cells are morphologically mature monocytes. However, there are occasional BE + cells that are larger and look less mature, so we cannot completely exclude low level persistent disease. Correlation with pending molecular and cytogenetic studies is recommended for final Interpretation. Cytogenetics normal GeneTrails : The previously reported DNMT3A mutation has been found in this bone marrow sample from a patient with a history of AML. The previously reported mutations in NPM1, FLT3, TET2 and NRAS are no longer detectable (to a limit of detection of 0.5%). Gene: DNMT3A Mutation: p.R882C (pathogenic) She admitted for cycle #1 on 03/27/16 with reduction in cytarabine dose to 1500mg/m2. She c ontinued voriconazole and CT scan appeared clear. The rest of her cytarabine cycles were giv en in [place] with Dr. Patterson. She completed consolidation and entered into remissi on. Her CBC was stable until February 2017 when she presented to local hospital with increasing diffuse body pains. She was seen in her oncology clinic on 03/01 where she was noted to have a WBC 103K, up from her previously normal 5K in November. She reports that she has had increa sing fatigue, nausea, vomiting, headache and now a sore at the base of her inferior incisors in her mouth that occasionally bleed. She had petechiae across her abdomen. She was admitted to [place] where CXR was consistent with pulmonary leukostasis. Per Ca reEverywhere he labs were: WBC of 103,6000 (92% blasts) hgb 13.8 Hct 41.8%, Platelet count o f 10,000, Ldh 4427 U/L (ULN 215 U/L), Bun 14 mg/dL, Scr 0.82 mg/dL. She received fluids,hydr oxyurea 2g q4hrs, 3L O2 per minute and a platelet transfusion prior to transfer. She reporte d no fevers but was febrile upon arrival at [facility]. 03/03/17 peripheral blood: -Immunophenotype: variable CD7, CD13, CD33, partial CD34, CD38, CD58, CD117, CD123 and HLA- DR -Leukocytosis with 78% blasts, normocytic anemia, and thrombocytopenia -Comment: Immunophenotypic shift is noted from the prior leukemic blast population. -Cytogenetics: 46,X,t(X;7)(q21;q32)[20] -Genetrails: FLT3 ITD 90%, DNMT3A 46%, and NPM1 44% She was started on FLAG-Arlette for relapsed disease and midostaurin added at day 8 with discov genie of FLT3 ITD. She had significant petechiae, bruising and oozing from lines during initia l chemo but this improved after a few days of chemotherapy and with drop in WBC. Induction w as also complicated by Pneumonia: febrile on 03/02-03/04. Bld cxs negative, but CT chest 03/04 notable for extensive PNA. Received broadsectrum abx, last dose of Zosyn was 03/31. She had BM biopsy scheduled under full anesthesia. CBC was not fully recovered but given th e difficulty with scheduling and travel, went ahead with BM biopsy. 04/04/17 BM biopsy after FLAG-Arlette salvage: - Hypocellular (10%) marrow with trilineage hematopoiesis - No evidence of acute myeloid leukemia Comment: Please correlate findings with concurrent cytogenetics/FISH and molecular studies. She presents to review results and discuss further therapy. S: Feeling pretty well. Starting to get more energy this past week and less fatigued. Was v genie happy to see her family and grandkids again. Getting ready to celebrate holidays. Not a great appetite however and still having a hard time eating. Trying to get up and walk during day. Not very active since weather is very cold. Denies fevers, chills, night sweats, dyspnea, cough, bruising, bleeding, lightheadedness, d izziness. ROS: 13 point ROS negative except as per HPI. Past Medical History: Diagnosis Date Bladder spasm Constipation COPD (chronic obstructive pulmonary disease) (HCC) Depression Disorder of thyroid Essential hypertension Insomnia Malignant neoplasm (HCC) PTSD (post-traumatic stress disorder) Allergies Allergen Reactions Morphine Rash and Facial Swelling Rash and facial swelling Opioids - Morphine Analogues Confusion Cefepime Rash Current Outpatient Prescriptions: acyclovir 800 mg oral tablet, Take 1 tablet by mouth once daily. Indications: viral infection prevention, Disp: 30 tablet, Rfl: 11 amLODIPine 10 mg oral tablet, Take 1 tablet by mouth once daily. Indications: hypertension, Disp: 30 tablet, Rfl: 5 DULoxetine 30 mg oral capsule,delayed release(DR/EC), Take 1 capsule by mouth two times nelsy ly. Indications: major depressive disorder, Disp: 60 capsule, Rfl: 5 hydrocortisone 2.5 % topical cream with perineal applicator, Apply topically 3x/day to the affected area. Wash and dry the rectal area first., Disp: 28.35 g, Rfl: 2 levothyroxine 75 mcg oral tablet, Take 0.5 tablets by mouth before breakfast. Indications: hypothyroidism, Disp: 15 tablet, Rfl: 2 lisinopril 5 mg oral tablet, Take 1 tablet by mouth once daily. Indications: hypertension, Disp: 30 tablet, Rfl: 3 LORazepam 0.5 mg oral tablet, Take 1 tablet by mouth every eight hours as needed for Nausea /Vomiting., Disp: 30 tablet, Rfl: 0 midostaurin 25 mg oral capsule, Take 50 mg by mouth 2x/day with meals.Take only on days 8-2 1 of each chemo cycle. Indications: acute myeloid leukemia with FLT3 mutation, Disp: 56 caps ule, Rfl: 3 omeprazole 20 mg oral capsule,delayed release(DR/EC), Take 1 capsule by mouth before breakf ast. Indications: gastroesophageal reflux disease, Disp: 30 capsule, Rfl: 2 ondansetron 4 mg oral tablet, Take 1 to 2 tablets by mouth every twelve hours as needed for nausea/vomiting., Disp: 30 tablet, Rfl: 5 oxybutynin CR 15 mg oral tablet extended release 24hr, Take 1 tablet by mouth once daily. I ndications: Bladder Hyperactivity, Disp: 30 tablet, Rfl: 2 oxyCODONE (immediate release) 5 mg oral tablet, Take 1 to 2 tablets by mouth every six hour s as needed for moderate pain., Disp: 60 tablet, Rfl: [address] 100 mg oral tablet,delayed release (DR/EC), When instructed, take 3 tabs by mouth 2x/day for 2 doses. Then take 3 tabs 1x/day., Disp: 93 tablet, Rfl: 5 prochlorperazine 5 mg oral tablet, Take 1-2 tablets by mouth four times daily as needed for nausea/vomiting. Max dose 40 mg/day. Indications: Cancer Chemotherapy-Induced Nausea and Vo miting, Disp: 60 tablet, Rfl: 3 tiotropium 18 mcg inhalation capsule, w/inhalation device, Inhale 1 capsule once daily. Ind ications: Bronchospasm Prevention with COPD, Disp: 30 capsule, Rfl: 5 traZODone 50 mg oral tablet, Take 0.5-1 tablets by mouth once daily at bedtime as needed. I ndications: insomnia associated with depression, Disp: 30 tablet, Rfl: 0 VENTOLIN HFA 90 mcg/actuation inhalation HFA aerosol inhaler, Inhale 1 puff by mouth every six hours as needed (shortness of breath, wheezing). Indications: Acute Asthma Attack, Disp: 1 Inhaler, Rfl: 5 Social History Social History Marital status: Spouse name: N/A Number of children: N/A Years of education: N/A Occupational History Not on file. Social History Main Topics Smoking status: Former Smoker Packs/day: 1.00 Years: 32.00 Types: Cigarettes Quit date: 02/08/2016 Smokeless tobacco: Never Used Alcohol use No Drug use: Comment: Marijuana Sexual activity: Not on file Other Topics Concern Not on file Social History Narrative No narrative on file Family History Problem Relation Colon Cancer Mother Physical Exam: Wt 86.9 kg (191 lb 9.3 oz), BP 151/79, Pulse 83, Temperature 36.8 C (98.3 F), Temperatu re source Oral, RR 16, SpO2 97%, BMI 33.94 kg/(m^2). ECO-2 General: Awake and alert, in no acute distress. HEENT: Edentulous in superior oropharynx. Oropharynx with moist mucus membranes without vis ible lesions, ulcerations, thrush, or petechiae. Lungs: Clear to auscultation bilaterally. Normal inspiratory effort. Heart: Normal rate and rhythm. No m/g/r appreciated Abdominal: Soft, non-distended. Normoactive bowel sounds. Non-tender to palpation. Extremities: no LAD and tr edema Neuro: a/o, fluent language, Moves all extremities spontaneously. Skin: No visible rashes or skin lesions. Psych: Normal affect. Data: Recent Labs 03/29/17 2353 03/30/17 2339 03/31/17 2301 04/04/17 0954 04/09/17 1405 NA 141 141 139 140 136 K 3.7 3.5 3.4 4.1 3.8 CL 105 106 103 103 100 BICARB 27 27 29 30* 30* BUN 13 9 11 8 8 CR 0.65 0.76 0.74 0.5* 0.6 GLU 106* 107* 113* 116* 103* CA 8.4* 8.3* 8.9 9.4 9.4 AST 20 24 21 -- -- ALT 40 45 47 -- -- AP 164* 160* 162* -- -- TBILI 0.4 0.5 0.5 -- -- TP 6.5 6.4 6.5 -- -- ALB 3.2* 3.1* 3.3* -- -- Recent Labs 03/30/17 2339 03/31/17 2301 04/04/17 0934 04/09/17 1404 WBC 0.40* 0.59* 0.75* 2.1* RBC 2.44* 2.70* 2.60* 2.73* HB 7.4* 8.1* 7.8* 8.2* HCT 20.9* 22.7* 22.5* 23.9* PLT 13* 11* 20* 39* NEUTROPERC 86.1* 83.3* 90.9* -- LYMPHPERC 7.8* 13.1* 3.8* -- MONOPERC 5.2 3.6 3.0* 8.5 BASOPERC 0.0 0.0 0.8 0.5 EOSPERC 0.0* 0.0* 0.0* 0.5* Lab Results Component Value Date APTT 31.5 03/31/2017 FIBRINOGEN 496 (H) 03/31/2017 Diagnostic GeneTrails Gene: NPM1 Mutation: p.W288fs*12 (Pathogenic) Mutant Allele frequency: 46% Variant ID: [id number] This NPM1 gene encodes a phosphoprotein which moves between the nucleus and the cytoplasm and is involved in diverse cellular processes such as ribosome biogenesis, centrosome duplication, protein chaperoning, histone assembly, and cell proliferation. The W288fs*12 NPM1 mutation is a very common frameshift mutation (insertion of 4 nucleotides) at the C-terminus of the nucleophosmin protein that creates a cytoplasmic (not nuclear) NPM1 protein. This type of NPM1 mutation is very common in AML (~10-20%) and in the absence of a concomitant FLT3 ITD conveys a relatively good prognosis. Currently, there are no targeted therapies for NPM1 mutations Gene: DNMT3A Mutation: p.R882C (Pathogenic) Mutant Allele frequency: 45% Variant ID: [id number], [id number] The DNMT3A gene encodes a DNA methyltransferase that functions as a catalyst in de rachel DNA methylation. DNMT3A mutations are seen in ~ 20% of AML cases and are associated with a relatively worse overall prognosis (Cristiana et al. N Engl J Med 363: 2424-33, 2010), particularly in the intermediate risk cytogenetic group. The R882 codon is overwhelmingly the most common site for DNMT3A mutations and is frequently reported in the COSMIC database in association with AML and MDS. These R882 mutants were reported to reduce DNA methylation activity of DNMT3A (Cordell et al., 2011). No specific targeted therapy has yet been reported for DNMT3A mutations. However, DNMT3A mutations may predict a better response to hypomethylating agents in MDS. Gene: NRAS Mutation: p.G12D (Pathogenic) Mutant Allele frequency: 17% Variant ID: [id number] The NRAS oncogene encodes a signaling protein with intrinsic GTP-ase activity that transmits signals between the cell membrane and the nucleus for a number of different pathways. NRAS activating mutations are very common in a variety of cancers, including 10% of AML. In some (but not all) studies, NRAS mutations have been found to confer a poor prognosis in newly diagnosed AML patients. Codons 12 and 13 are very common mutation hotspots for activating mutations in NRAS and would be predicted to constitutively activate downstream XMF-UIL-WPS-ERK signaling pathways. Several experimental and approved drugs currently exist that modulate the WJP-PSY-FUF-ERK signaling pathway. There is currently a pharmaceutical clinical trial that is recruiting adult patients with AML or highrisk MDS with documented BRITTON mutations ([id number]). Gene: FLT3 Mutation: p.D835A (Pathogenic; But low allele frequency) Mutant Allele frequency: 4% Variant ID: [id number] Mutation: p.N841K (Likely pathogenic; But low allele frequency) Mutant Allele frequency: 7% Variant ID: [id number] FLT 3 is a receptor tyrosine kinase with important roles in hematopoietic stem cell proliferation and survival. Common mutations in FLT3 map to the juxtamembrane domain (ITD's in 20-30% of normal karyotype AML's) or tyrosine kinase domain (at codons 835 or 836; seen in ~7% of normal karyotype AML's). The N841K missense mutation, which also maps to the tyrosine kinase domain, to-date has been reported only once in the COSMIC database in association with a case of AML. These two mutations are biallelic or less likely biclonal. The prognostic significance of FLT3 tyrosine kinase domain mutations is controversial in different papers. The FLT3 kinase is a specific target of several different tyrosine kinase inhibitors that may be recruiting patients for clinical trials. A phase III RATIY clinical trial (CALGB 42718) has recently shown that adding the FLT3 inhibitor midostaurin to standard chemotherapy improved survival compared with standard chemotherapy alone in newly diagnosed AML patients harboring FLT3 mutations (Romeo et al. 2015 [employer] Annual Meeting). Gene: TET2 Mutation: p.Q8466K (Likely pathogenic) Mutant Allele frequency: 31% Variant ID: [id number], [id number] TET2 encodes a methylcytosine dioxygenase protein that plays a role in DNA methylation and regulation of wagon driller. TET2 is involved in myelopoiesis, and loss of function mutations in this gene are commonly found in a diverse array of myeloid malignancies [AML (7-23%), MDS (20-25%), MPN (4-13%) and CMML (50-60%)]. Some reports seem to suggest that AMLs with a TET2 mutation may have a poorer prognosis than thosewith a wild type TET2 (Weissmann et al. Leukemia 2012), although other reports have not consistently validated this finding. The Z0169I missense mutation has been reported in the COSMIC database in association with myeloid neoplasms. Targeted therapy has not been reported for TET2 mutations. However, TET2 mutations may predict a better response to hypomethylating agents in MDS. Assessment: 50 yo woman with PMH of COPD, depression, and developmental delay who presented with favorable risk AML, NPM1+ without FLT3 ITD (other mutations do not change prognosis), and is now s/p induction with 7+3 with dasatinib. The dasatinib was added as part of a janell col which tested for in vitro sensitivity to kinase inhibitors. She tolerated induction well and achieved remission. She then received 4 cycles of cytarabine consolidation with curativ e intent. 3 cycles were completed with Dr. Patterson in [place]. She presented again in early Feb 2017 with fatigue and elevated WBC. Transferred to [facility] wi th WBC around 100K and started on salvage FLAG-Arlette. She was found to have FLT3 ITD at relaps e (not at diagnosis) and midostaurin was added to chemotherapy. She tolerated chemotherapy relatively well but had slow recovery of her CBC. She had repeat marrow on day 31 of FLAG-Arlette + midostaurin and although low CBC, there was no detectable di sease. We reviewed that allo SCT is only curative option and she was seen by transplant physician Dr. Bell during induction to discuss. Thus far, two of her sibs are not matches and we are a waiting further typing results. Transplant would be difficult since it would require moving to [place] for 3 months with a constant caregiver. Our social workers have been working wit h the family on this. In the interim, she will need more therapy for her AML. Given the slow recovery of her CBC after FLAG-Arlette and no clear donor option at this time, we discussed azacitidine + midostauri n in [place] with Dr. Patterson. I anticipate she could start in a couple of weeks to allow more time for marrow recovery. Plan was reviewed with pt and Dr. Patterson. Plan: 1. AML - relapsed with FLT3 ITD. S/p salvage with FLAG-Arlette + midostaurin - azacitidine + midostaurin as consolidation starting after [facility] - aza 75mg/m2 for 7 days - midostaurin 50mg BID days 8-21 (pt already has pills) - will review donor options in early Apr and need for further cycles 2. Heme - CBC recovering but WBC and plts still low - labs next week in [place] - transfuse for Hct>21 and plts>10 after aza if needed 3. ID - presumed fungal infx and treated with vori during induciton and clear by CT. PNA du ring salvage FLAG-Arlette chemo but completed IV abx course. No longer neutropenic - acyclovir ppx - off levaquin and posa ppx 4. CV - repeat TTE completed 03/04/17 with EF=70%. 5. Pulm - H/o COPD and on inhalers 6. GI - h/o C diff. Test if diarrhea or nausea increases 7. Renal - DIONI during induction but resolved - Cr and lytes stable 8. - oxybutinin for bladder spasms 9. Endo - Thyroid Dysfunction/Goiter: TSH 0.24 in setting of acute illness -Synthroid 50 mcg qAM 10. Neuro/Psych - developmental delay and depression - stable, continue medications - supportive family I spent 45 minutes with the patient and her . Greater than 50% of the time was spent in counseling and coordination of care including discussion of slavage chemo, midostaurin, infx risk with chemo, aza + mido, anticipated neutropenia, neutropenic fever risk, donor [facility], local follow up and plan. Pepe Chavis MD PhD [facility] [address] [facility] [address] in this encounter Plan of Treatment Not on fileas of this encounter Visit Diagnoses + + | Diagnosis | + + | Acute myeloid leukemia not having achieved remission (HCC) | + +"
--- OUTSIDE RECORDS SUMMARY | ~2017-05-04 | XMS | Encounter Summary ---
Demographics + + + | Address | [address] | | | [place] [address] | + + + | Home Phone | | + + + | Preferred Language | Unknown | + + + | Marital Status | | + + + | Orthodox Affiliation | NON | + + + | Race | White | + + + | Ethnic Group | Not or | + + + Author + + + | Author | [facility] | + + + | Organization | [facility] | + + + | Address [...] Care Team Providers + +------+-------+ | Care Managing Consultant Clinical Professor Name | Role | Phone | + +------+-------+ | Saurav De Los Santos NP | PCP | tel | + +------+-------+ Encounter Details +--------+ + + + + | Date | Type | Department | Care Team | Description | +--------+ + + + + | 03/15/ | Document-Sc | UNKNOWN DEPARTMENT | Unknown . | | | 2017 | anned | [address] [facility] | | | | | | [facility] | | | | | | [place], [place] | | | | | | [address] | | | +--------+ + + + [...]
--- OUTSIDE RECORDS SUMMARY | ~2017-05-04 | XMS | Encounter Summary ---
Demographics + + + | Address | [address] | | | [place] [address] | + + + | Home Phone [...] + + + | Author | [facility] | + + + | Organization | [facility] | + + + | [...] Care Team Providers + +------+-------+ | Care Hat Forming Machine Operator Name | Role | Phone | + +------+-------+ | Saurav De Los Santos NP | PCP | tel | + +------+-------+ Reason for Visit AUTH/CERT +--------+--------+ + + [...] | +--------+ + + + + | 04/04/ | Anesthesia | [facility] | [place]ued[place], | | | 2017 | | Hematologic | [address] | | | | | [facility] michael | Antione Gardner | | | | | [place] | [place], [place] | | | | | [address] | [address] | | | | | [facility] | [phone] | | | | | Mailcode: [id number] | | | | | | [place] | | | | | | [place], [place] | | | | | | [address] | | | | | | [phone] | | | +--------+ + + + + Anesthesia Record + + + + + | Procedure Name | Responsible | Anesthesia Start | Anesthesia Stop Time | | | Anesthesiologist | Time | | + + + + + | CHM BONE MARROW | | | | | BIOPSY | | | | + + + + + +----+---+ + + | Da | T | Event | Comment | | te | i | | | | | m | | | | | e | | | +----+---+ + + | 12 | 1 | Pt. Check | Prior to anesthesia start, pt. Identified, examined, chart | | /0 | 1 | | reviewed, PARQ held, anesthetic plan made or approved by | | 7/ | 2 | | attending anesthesiologist. NPO status confirmed as appropriate | | 20 | 1 | | for procedure Preoperative evaluation: unchanged | | 17 | | | | +----+---+ + + | | 1 | PACU Rpt | | | | 1 | Given | | | | 5 | | | | | 0 | | | +----+---+ + + +------+ | Meds | +------+ [...] +--------+ + +---------+ | PICC - | 03/15/17; 1400; Piero Mcguire RN; | 03/15/17 1400 by | | | | Valved; Right; Arm; Basilic; 5 | Alexandra Collins RN | | | Double | Fr; 1:Red; 2:Purple; Yes; | | | | Lumen | [id number] | | | +--------+ + +---------+ in [...]
--- OUTSIDE RECORDS SUMMARY | ~2017-05-04 | XMS | Encounter Summary ---
Demographics + + + | Address | [address] | | | [place] [address] | + + + | Home Phone | | + + + | Preferred Language | Unknown | + + + | Marital Status | | + + + | Yazdanism Affiliation | NON | + + + | Race | White | + + + | Ethnic Group | Not or | + + + Author + + + | Author | [facility] | + + + | Organization | [facility] | + + + | [...] Care Team Providers + +------+-------+ | Care Straightening Machine Feeder Name | Role | Phone | + +------+-------+ | Saurav De Los Santos ELECTRONICS TECHNOLOGY DEPARTMENT CHAIR | PCP | tel | + +------+-------+ Encounter Details +--------+ + + + + | Date | Type | Department | Care Team | Description | +--------+ + + + + | 04/01/ | Chair Inspector And Leveler | [facility] for | Clarke Aguirre, | Acute myeloid | | 2017 | | Hematologic | WOOD MILLING MACHINE TENDER [address] | leukemia not having | | | | Malignancies at | [facility] [facility] [address] | achieved remission | | | | [place] | [place], [place] | (HCC) (Primary Dx) | | | | [address] | [address] | | | | | [address]ra [address] | [phone] | | | | | Mailcode: [id number] | | | | | | [place] | | | | | | [place], [place] | | | | | | [address] | | | | | | [phone] | | | +--------+ + + + [...] Not on fileas of this encounter Results [facility], WITH DIFFERENTIAL (04/04/2017 9:34 AM) + + + | Specimen | Performing Laboratory | + + + | Blood | | + + + + + | Narrative | + + | The following orders were created for panel order CBC, WITH DIFFERENTIAL. | | Procedure | | Abnormality Status | | --------- | | ------ CBC AND AUTO | | DIFF[[id number]] Abnormal Final | | result MANUAL | | DIFFERENTIAL[[id number]] Abnormal Final | | result RBC MORPHOLOGY[[id number]] | | Normal Final result Please view | | results for these tests on the individual orders. | + + [facility] AML/MDS GENE MUTATION PANEL, BM (04/04/2017) + + + | Specimen | Performing Laboratory | + + + | Bone marrow | | + + + + + | Narrative | + + | The following orders were created for panel order [facility] AML/MDS GENE MUTATION | | PANEL, BM. Procedure | | Abnormality Status | | --------- | | ------ [facility] | | AML/MDS GENE ...[[id number]] Final | | result [facility] AML/MDS GENE | | ...[[id number]] In | | process Please view results for these tests on the | | individual orders. | + + CYTOGENETICS BONE MARROW CHROMOSOME ANALYSIS (W/FISH) (04/04/2017) + + + | Specimen | Performing Laboratory | + + + | Bone marrow | | + + + + + | Narrative | + + | The following orders were created for panel order CYTOGENETICS BONE MARROW CHROMOSOME | | ANALYSIS (W/FISH). | | Procedure | | Abnormality Status | | --------- | | ------ CYTOGENETICS | | BONE MARROW...[[id number]] In | | process CYTOGENETICS BONE | | MARROW...[[id number]] Final | | result Please view results for these tests on the | | individual orders. | + + LEUKEMIA/LYMPHOMA MARKERS - BONE MARROW (04/04/2017) + + + | Specimen | Performing Laboratory | + + + | Bone marrow | | + + + + + | Narrative | + + | The following orders were created for panel order LEUKEMIA/LYMPHOMA MARKERS - BONE | | MARROW. Procedure | | Abnormality Status | | --------- | | ------ | | LEUKEMIA/LYMPHOMA MARKER...[[id number]] In | | process LEUKEMIA/LYMPHOMA | | MARKER...[[id number]] Final | | result Please view results for these tests on the | | individual orders. | + + in this encounter Visit Diagnoses + + | Diagnosis | + + | Acute myeloid leukemia not having achieved remission (HCC) - Primary | + +"
--- OUTSIDE RECORDS SUMMARY | ~2017-05-04 | XMS | Encounter Summary ---
Demographics + + + | Address | [address] | | | [place] [address] | + + + | Home Phone | | + + + | Preferred Language | Unknown | + + + | Marital Status | | + + + | Evangelical Affiliation | NON | + + + | Race | White | + + + | Ethnic Group | Not or | + + + Author + + + | Author | [facility] | + + + | Organization | [facility] | + + + | Address [...] Care Team Providers + +------+-------+ | Care Shellfish Bed Worker Name | Role | Phone | + +------+-------+ | Saurav De Los Santos NP | PCP | tel | + +------+-------+ Encounter Details +--------+ + + + + | Date | Type | Department | Care Team | Description | +--------+ + + + + | 04/04/ | Production Boring Machine Operator | Center for | Gloria Ramirez | Acute myeloid | | 2017 | | Hematologic | Yared, RN [address] | leukemia not having | | | | Malignancies at | [facility] [address] | achieved remission | | | | [place] | [place], [place] | (HCC) (Primary Dx) | | | | [address] | [address] | | | | | [facility] | [phone] | | | | | Mailcode: [id number] | | | | | | [address] | | | | | | [place], [place] | | | | | | [address] | | | | | | [phone] | | | +--------+ + + + [...]
--- OUTSIDE RECORDS SUMMARY | ~2017-05-04 | XMS | Encounter Summary ---
Demographics + + + | Address | [address] | | | [place] [address] | + + + | Home Phone | | + + + | Preferred Language | Unknown | + + + | Marital Status | | + + + | Congregational Affiliation | NON | + + + | Race | White | + + + | Ethnic Group | Not or | + + + Author + + + | Author | [facility] | + + + | Organization | [facility] | + + + | [...] Care Team Providers + +------+-------+ | Care Adviser Sales Name | Role | Phone | + +------+-------+ | Saurav De Los Santos NP | PCP | tel | + +------+-------+ Reason for Visit + + + | Reason | Comments | + + + | Bone Marrow Biopsy | | + + + AUTH/CERT +--------+--------+ [...] Description | +--------+---------+ + + + | 04/04/ | Office | Center for | Monica Flor FNP | Acute myeloid | | 2017 | Visit | Hematologic | [address] [facility] | leukemia not having | | | | Malignancies at | [facility] | achieved remission | | | | [place] | [place], [place] | ([facility]) | | | | [address] [facility] [address] | [address] | | | | | [facility] | [phone] | | | | | Mailcode: [id number] | | | | | | [place] | Diego Rueda MD | | | | | [place], [place] | [address] [facility] [address] | | | | | [address] | [facility], | | | | | [phone] | [place] [address] | | | | | | [phone] | | | | | | | | | | | | Ti Rueda MD | | | | | | [address] | | | | | | [address] | | | | | | [place], [place] | | | | | | [address] | | | | | | [phone] | | | | | | | [...] + + + | Blood Pressure | 117/74 | 04/04/2017 11:49 AM PST | + + + + | Pulse | 88 | 04/04/2017 11:49 AM PST | + + + + | Temperature | 36.7 C (98.1 F) | 04/04/2017 11:49 AM PST | + + + + | Respiratory Rate | 20 | 04/04/2017 11:49 AM PST | + + + + | Oxygen Saturation | 100% | 04/04/2017 11:49 AM PST | + + + + | Inhaled Oxygen | - | - | | Concentration | | | + + + + | Weight | - | - | + + + + | Height | - | - | + + + + | Body Mass Index | - | - | + + + + in this [...] + as of this encounter Progress Notes Monica Flor FNP - 04/04/2017 11:00 AM PST04/04/2017 [facility] Procedure Note Procedure: Bone marrow aspirate and biopsy. 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 Currently day 31 of reinduction; evaluate disease status. Team Pause: At 1130, prior to the beginning of the procedure the team paused to verify the patient's identity, as well as the procedure to be performed and the correct side/site. Al l equipment required was ready and available. The patient was positioned appropriately. The following team members were present during the team pause: Ti Rueda MD; ISIDRO Bruce. Description: Written consent for bone marrow aspirate and biopsy was obtained from the precious ent following a brief discussion regarding the risks and benefits of the procedure. She was then placed in the prone position and conscious sedation was administered by anesthesiology. The skin over her right posterior iliac crest was cleansed with betadine and draped in a st erile manner. Lidocaine was used for local anesthesia. A scalpel was used to enlarge the ins ertion site and a Jamshidi was inserted. The first aspirate yielded sufficient spicules per Emilio Black; 1 mL was submitted for morphology studies. A second aspirate was obtained in a heparinized syringe and submitted for flow cytometry, cytogenetics, and FISH for prior abnl. A third aspirate was obtained in an unheparinized syringe and submitted for GeneTrails. A total of 10 mL of marrow was aspirated. The Jamshidi needle was then repositioned. A core biopsy measuring > 1 cm was obtained and submitted for morphology studies. Hemostasis was achieved and a pressure dressing was applied. The patient was placed in the supine position. She was observed post-procedure for signs of bleeding and discharged home into the care of her and medical transport once fully awake and able to tolerate po intake. Pt tolerated the procedure well without complications. The results of this procedure will take approximately 7 to 10 days for full analysis. Fraire waleska, preliminary results should be available within the next 24 to 48 hours. Monica Flor [facility] AT [address] Mailcode: [id number] [phone] in this encounter Plan of Treatment Not on fileas of this encounter Procedures + +--------+ + + + | Procedure Name | Priori | Date/Time | Associated Diagnosis | Comments | | | ty | | | | + +--------+ + + + | MA BONE MARROW ASP | Routin | 04/04/2017 | Acute myeloid | | | SAME DAY BIOPSY | e | 12:02 PM | leukemia not having | | | | | PST | achieved remission | | | | | | (HCC) | | + +--------+ + + + | MA BONE MARROW BX, | Routin | 04/04/2017 | Acute myeloid | | | NEEDLE/TROCAR | e | 12:02 PM | leukemia not having | | | | | PST | achieved remission | | | | | | (HCC) | | + +--------+ + + + | ANESTHESIA/SEDATION | | 04/04/2017 | | Results for this | | | | 12:00 AM | | procedure are in the | | | | PST | | results section. | + +--------+ + + + in this encounter Results [facility] AML/MDS GENE MUTATION PANEL, BM (LABEL) (04/04/2017 10:32 AM) + + + + | Component | Value | Ref Range | + + + + | LABEL ONLY - KDL | Please see lab report for result. | | + + + + + + + | Specimen | Performing Laboratory | + + + | Bone marrow | [facility] [address] | | | [address] [place] [address] | + + + CYTOGENETICS BONE MARROW CHROMOSOME ANALYSIS (W/FISH) (LABEL) (04/04/2017 10:32 AM) + + + + | Component | Value | Ref Range | + + + + | LABEL ONLY - KDL | Please see lab report for result. | | + + + + + + + | Specimen | Performing Laboratory | + + + | Bone marrow | [facility] [address] | | [address] [place] [address] | + + + LEUKEMIA/LYMPHOMA MARKERS - BONE MARROW (LABEL) (04/04/2017 10:32 AM) + + + | Specimen | Performing Laboratory | + + + | Bone marrow | [facility] [address] [facility] | | | [place] [address] | + + + ANESTHESIA/SEDATION (04/04/2017)GENETJENNIFER AML/MDS GENE MUTATION PANEL, BM (PP) (04/04/2017 ) + + + + | Component | Value | Ref Range | + + + + | GENETRAILS AML/MDS | A GeneTrails AML/MDS Gene Mutation Panel | | | GENE MUTATION PANEL, | Bone MarrowSpecimen Type: Bone Marrow | | | BM | (EDTA)Supplemental indications: Acute | | | | myeloid leukemia Patient | | | | Results: Sample tested: Bone Marrow | | | | Aspirate GeneTrailsTM AML/ MDS | | | | Panel: Mutation Screening by | | | | Next-GenerationSequencing: The | | | | following DNMT3A gene mutation persists in | | | | this post-treatment bonemarrow sample from | | | | a patient with a history of AML. The | | | | previouslydetected mutations [FLT3-ITD, | | | | FLT3 point mutations, NRAS, NPM1, and | | | | TET2]are not detected in this current | | | | sample (limit of detection 5% for FLT3 | | | | ITDand 0.5% for all others). | | | | | | | | Gene: DDYR8LDcdbhnsd: | | | | p.R882C (pathogenic)Mutant Allele | | | | frequency: 19%Variant ID: | | | | [id number], [id number] | | | | Average# of DNA sequence reads (ie, depth | | | | of coverage) for each of thefollowing | | | | genes: 1294 Each of | | | | the [...] IKZF1 | | | | 100% RUNX1 100%CEBPA | | | | 57% IL7R 100% SF3B1 | | | | 100%CREBBP 99% JAK1 100% | | | | SRSF2 84%CSF3R 100% JAK2 | | | | 100% STAT3 | | | | 100%DNMT3A 98% JAK3 | | | | 90% SUZ12 91%ETV6 100% | | | | KDM6A 97% TET2 (exon3) | | | | 100%EZH2 96% KIT 100% TP53 | | | | 100%FBXW7 96% KRAS 100% | | | | U2AF1 100%FLT3 100% | | | | MPL 75% WT1 81%GATA1 100% | | | | NOTCH1 80% ZRSR2 | | | | 100% *Percent [...] sequencing | | | | on an [employer] PGM. The panel | | | | [...] sequenced by routine | | | | [place] dideoxy sequencing methods. Alist of | | | | the gene segments that are incompletely | | | | covered by the combinationof massively | | | | parallel and [place] sequencing are | | | | available [...] Therefore, a | | | | supplementary pkd-tzaolxmyho-midoh assay | | | | is concomitantly [...] End Ref Jesica | | | | DNMT3A [id number] c.2644C>T | | | | hg19 chr2 | | | | [id number] G A | | | | Case reviewed by:Dora | | | | Ranjit/Molecular TechnologistDaniel Sebastian | | | | M.DDaniel, Ph.D./Hematopathologist | | | | (Analyte specific reagents are used in many | | | | laboratory tests necessary forstandard | | | | medical care and generally do not require | | | | FDA approval. This testwas developed and | | | | its performance characteristics determined | | | | by [facility]; CLIA | | | | # [id number]. It has not been cleared | | | | orapproved by the U.S. Food and Drug | | | | Administration.) This test was | | | | developed and its performance | | | | characteristics determined bythe [facility] | | | | [facility] | | | | [facility]. [...] Improvement Act of | | | | 1988. The [facility] | | | | DiagnosticsLaboratories are fully licensed | | | | by the [facility] under CLIA and | | | | areaccredited by [employer] | | | | Path[employer] (CAP). | | | | Electronically signed by: Daniel Aponte | | | | Romulo Stiles, Ph.D.PathologistDate Completed: | | | | 04/19/2017 10:58AM | | + + + + + + + | Specimen | Performing Laboratory | + + + | Bone marrow | [facility] [address] | | [address] [place] [address] | + + + CYTOGENETICS BONE MARROW CHROMOSOME ANALYSIS (W/FISH) (PP) (04/04/2017) + + + + | Component | Value | Ref Range | + + + + | CHROMOSOME REPORT | Bone Marrow: Full StudyReasons for | | | | Referral: Acute Myelogenous | | | | Leukemia Chromosome | | | | Results:NormalKARYOTYPE RESULTS: | | | | 46,XX[20] IMPRESSIONS AND | | | | RECOMMENDATIONS:All twenty metaphase cells | | | | analyzed appeared normal female. | | | | Thank you very much for your | | | | referral. If you have any questions | | | | regardingthis report or future cytogenetic | | | | testing issues, please feel free tocontact | | | | us. CYTOGENETIC ANALYSIS | | | | SUMMARY:Number of Cells Analyzed: | | | | 20 Banding | | | | Level: 450-500Number of Cells | | | | Counted: N/A Banding Method: | | | | GTWNumber of Cells Karyotyped: | | | | 3 The clinical interpretation was | | | | made by the clinical instrumentation fitter. | | | | Electronically signed by: Monica | | | | Stefani PhD, [facility] | | | | CytogeneticistDate Completed: | | | | 04/10/2017 1:01PMElectronically signed | | | | by: Monica Parrish MD, [facility] | | | | FACClinical GeneticistDate Completed: | | | | 04/10/2017 5:55PM | | | | | | + + + + + + + | Specimen | Performing Laboratory | + + + | Bone marrow | [facility] 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 Per [facility], the patient is | | | | Day31+ status post reduction with FLAG-SAL | | | | + Mido. Final Pathologic | | | | Diagnosis:Peripheral blood: - | | | | Pancytopenia Bone marrow aspirate, | | | | biopsy and clot: - Hypocellular | | | | (10%) marrow with trilineage | | | | hematopoiesis - No evidence of | | | | acute myeloid leukemia Comment: | | | | Please correlate findings with concurrent | | | | cytogenetics/FISH andmolecular | | | | studies. Case seen by:Reina Donald, | | | | M.D./Hematopathology FellowJacob Kaminski, | | | | M.D./Hematopathologist Gross | | | | Description:Peripheral blood, bone marrow | | | | aspirate, biopsy, touch preparation, and | | | | clotwere received and processed. Both clot | | | | and the core biopsy were fixed informalin | | | | and the core biopsy was decalcified. | | | | Alarcon-stained bone marrowaspirate and | | | | peripheral blood smears were prepared for | | | | morphologic review.Fresh bone marrow | | | | aspirate was lysed for flow cytometric | | | | analysis and aWright-stained cytoprep was | | | | prepared for morphologic correlation with | | | | theflow results.B: Bone marrow clot | | | | | | | | 1.7 x 0.8 x 0.2 cmC: Bone marrow biopsy | | | | | | | | 2.2 x 0.3 cm(AMJ) PERIPHERAL BLOOD | | | | MORPHOLOGY:WBC: Neutrophils show toxic | | | | granulation. There are occasional | | | | myeloidprecursors. Monocytes are mature. | | | | The lymphocytes are heterogeneous. Noblasts | | | | are identified.RBC: Mild | | | | anisocytosis.Platelets: | | | | Normal granularity with occasional large | | | | forms. BONE MARROW ASPIRATE | | | | SMEARS:Quality: Adequate | | | | particles; good | | | | quality.Blasts: Not | | | | increased.Myeloids: Left | | | | maturation. No dysplastic | | | | features.Erythroids: | | | | Complete maturation. Mild | | | | megaloblastic/dysplasticfeatures.Megakaryoc | | | | ytes: Present. No dysplastic | | | | features.Lymphocytes: Not | | | | increased.Plasma cells: Not | | | | increased. BONE MARROW | | | | DIFFERENTIAL:Preparation: As | | | | pirate | | | | smears.Myeloids: 60.5%Erythroids | | | | : | | | | 35.0%Blasts: 0.5%Lymphoc | | | | ytes: 4.0%Plasma | | | | cells: 0.0%M:E | | | | Ratio: 1.7:1Total cells | | | | counted: 200 BONE MARROW | | | | BIOPSY/CLOT SECTION:Quality: | | | | Adequate. 1.8 cm of evaluable marrow. Clot | | | | section | | | | containsparticles.Cellularity: | | | | Patchy, averages | | | | 10%.Myeloids: Decreased.Erythroi | | | | ds: | | | | Decreased.Megakaryocytes: | | | | Decreased.Infiltrate: No | | | | atypical lymphoid aggregates or sheets of | | | | blasts. FLOW CYTOMETRIC | | | | ANALYSIS:Blasts: | | | | <0.5% of total CD45+ | | | | cellsMonocytes: 1.5% | | | | of total CD45+ | | | | cellsLymphocytes: 2.0% | | | | of total CD45+ | | | | cellsB-cells: Essent | | | | ially absent.T-cells: 73.0% of | | | | lymphocytes, no aberrant antigen | | | | expression(CD4:CD8 ratio | | | | 3.5:1)NK-cells: 23.0% | | | | of lymphocytesSummary: No increase in | | | | blasts. No monoclonal B cell population. | | | | Normalpattern of myelomonocytic antigen | | | | expression. ANTIBODIES | | | | TESTED: CD2 sCD3 | | | | CD4 CD5 CD7 CD8 CD10 [id number] | | | | CD14 CD15 CD16 CD19 CD20 CD33 [id number] CD45 | | | | CD56 CD58 CD64 CD71 CD117 | | | | [id number] sLambda | | | | HLA-DR IMMUNOHISTOCHEMICAL | | | | STAINS: IHC stains were performed on the | | | | core biopsy.CD34 and CD117 are positive in | | | | rare scattered blasts that account for | | | | lessthan 1% of total cellularity. CD117 is | | | | also present in scatterednon-spindled mast | | | | cells. (Immunohistochemical | | | | analysis (IHC) allows assessment | | | | ofimmunoarchitecture, which is not supplied | | | | by flow cytometry, whereas flowcytometry | | | | enables better assessment of clonality and | | | | antigen aberrancy thanIHC). | | | | CYTOGENETIC AND FISH STUDIES: Performed, | | | | see separate report #[id number]. | | | | MOLECULAR STUDIES: Performed, see | | | | separate report #[id number]. | | | | Analyte specific reagents are used in many | | | | laboratory tests necessary forstandard | | | | medical care. This test was developed | | | | and its performancecharacteristics | | | | determined by [facility]. It has | | | | not been clearedor approved by the US Food | | | | and Drug Administration (FDA). FDA does | | | | notrequire this test to go through | | | | premarket FDA review. This test is used | | | | forclinical purposes. It should not be | | | | regarded as investigational or | | | | forresearch. This laboratory is | | | | certified under the Clinical | | | | LaboratoryImprovement Amendments (CLIA) as | | | | qualified to perform high | | | | complexityclinical laboratory | | | | testing. Laboratory Data:04/04/2017 | | | | 09:34AM Ref | | | | Range & Units ValueWHITE CELL | | | | COUNT 3.50 - 10.80 K/cu mm | | | | 0.75RED CELL COUNT 4.00 - 5.20 M/cu mm | | | | 2.60HEMOGLOBIN 12.0 - 16.0 | | | | g/dL 7.8HEMATOCRIT 36.0 - | | | | 46.0 % 22.5MCV 80.0 - 96.0 fL | | | | 86.5MCHC 33.0 - 35.5 g/dL 34.7RDW | | | | SD 35.1 - 46.3 fL 41.4PLATELET COUNT | | | | 150 - 400 K/cu mm 20MPV 9.7 - 12.3 | | | | fL NRBC% 0.0 - 0.3 | | | | % 0.0NRBC# 0.00 - 0.02 K/cu | | | | mm 0.00NEUTROPHIL % 50.0 - 70.0 | | | | % 90.9LYMPHOCYTE % 18.0 - 42.0 | | | | % 3.8MONOCYTE % 3.5 - 9.0 | | | | % 3.0EOSINOPHIL % 1.0 - 3.0 | | | | % 0.0BASOPHIL % 0.0 - 2.0 | | | | % 0.8IMMATURE | | | | GRANULOCYTE% 0.0 - 0.6 | | | | % 1.5 NEUTROPHIL # 1.80 | | | | - 7.70 K/cu mm 0.68LYMPHOCYTE # 1.00 - | | | | 4.80 K/cu mm 0.03MONOCYTE # 0.10 - | | | | 0.90 K/cu mm 0.02EOSINOPHIL # 0.00 - | | | | 0.50 K/cu mm 0.00BASOPHIL # 0.00 - | | | | 0.10 K/cu mm 0.01IMMATURE | | | | GRANULOCYTE# 0.00 - 0.03 K/cu mm | | | | 0.01 ValueTOXIC GRANULATION | | | | Present My electronic signature | | | | indicates that I have personally reviewed | | | | alldiagnostic slides, the gross and/or | | | | microscopic portion of thisreport and | | | | formulated the final diagnosis. | | | | Electronically signed by: Jacob Kaminski | | | | GoPathologistDate Completed: | | | | 04/05/2017 4:24PM | | + + + + + + + | Specimen | Performing Laboratory | + + + | Bone marrow | [facility] [address] | | | [place] [address] | + + + GENETRAILS AML/MDS GENE [...] | ------ GENETRAILS | | AML/MDS GENE ...[[id number]] Final | | result GENETRAILS AML/MDS GENE | | ...[[id number]] In | | process Please view results [...] | | ------ CYTOGENETICS | | BONE MARROW...[[id number]] In | | process CYTOGENETICS BONE | | MARROW...[[id number]] Final | | result Please view results [...] --------- | | ------ | | LEUKEMIA/LYMPHOMA MARKER...[[id number]] In | | process LEUKEMIA/LYMPHOMA | | MARKER...[[id number]] Final | | result Please view results for these tests on the | | individual orders. | + + in this encounter Visit Diagnoses + + | Diagnosis | + + | Acute myeloid leukemia not having achieved remission (HCC) | + +"
--- OUTSIDE RECORDS SUMMARY | ~2017-05-04 | XMS | Encounter Summary ---
Demographics + + + | Address | [address] | | | [place] [address] | + + + | Home Phone [...] Care Team Providers + +------+-------+ | Care Gm Video Name | Role | Phone | + +------+-------+ | Saurav De Los Santos NP | PCP | tel | + +------+-------+ Reason for Visit + + + | Reason | Comments | + + + | Refill Request | | + + + Encounter Details +--------+--------+ + + + | Date | Type | Department | Care Team | Description | +--------+--------+ + + + | 04/23/ | Refill | Center for | Pepe Chavis MD | Refill Request | | 2016 | | Hematologic | [address] | | | | | Malignancies at | [address] [place], | | | | | [place] | [place] [address] | | | | | [address] | [phone] | | | | | [address] | | | | | | Mailcode: [id number] | | | | | | [facility] | | | | | | [place], [place] | | | | | | [address] | | | | | | [phone] | | | +--------+--------+ + + + Social History + + [...]
--- OUTSIDE RECORDS SUMMARY | ~2017-05-04 | XMS | Encounter Summary ---
Demographics + + + | Address | [address] | | | [place] [address] | + + + | Home Phone | | + + + | Preferred Language | Unknown | + + + | Marital Status | | + + + | Hoahaoism Affiliation | NON | + + + [...] Care Team Providers + +------+-------+ | Care Framing Mill Supervisor Name | Role | Phone | + +------+-------+ | Saurav De [place] NP | PCP | tel | + +------+-------+ Encounter Details +--------+ + + + + | Date | Type | Department | Care Team | Description | +--------+ + + + + | 03/01/ | Emergency | [facility] Emergency | | | | 2017 - | | Department [address] | | | | | [address] | | | | 03/02/ | | [facility] | | | | 2017 | | [place] [address] | | | | | | [phone] | | | +--------+ + + + [...] +---------+ + + as of this encounter Plan of Treatment Not on fileas of this encounter Visit Diagnoses Not on filein this encounter"
--- OUTSIDE RECORDS SUMMARY | ~2017-05-04 | XMS | Encounter Summary ---
Demographics + + + | Address | [address] | | | [place] [address] | + + + | Home Phone | | + + + | Preferred Language | Unknown | + + + | Marital Status | | + + + | Mandaeism Affiliation | NON | + + + [...] Care Team Providers + +------+-------+ | Care Climate Change Risk Assessor Name | Role | Phone | + +------+-------+ | Saurav De [place] NP | PCP | tel | + +------+-------+ Encounter Details +--------+ + + + + | Date | Type | Department | Care Team | Description | +--------+ + + + + | 03/07/ | Pharmacy | Specialty Pharmacy | | | | 2016 | Visit | Services [address] | | | | [address] | | | | | | [place], [place] | | | | | | [address] | | | | | | [phone] | | | +--------+ + + + [...]
--- OUTSIDE RECORDS SUMMARY | ~2017-05-04 | XMS | Encounter Summary ---
Demographics + + + | Address | [address] | | | [place] [address] | + + + | Home Phone [...] Care Team Providers + +------+-------+ | Care Manager Employee Relations Name | Role | Phone | + +------+-------+ | Saurav De Los Santos NP | PCP | tel | + +------+-------+ Encounter Details +--------+ + + + + | Date | Type | Department | Care Team | Description | +--------+ + + + + | 03/31/ | Pharmacy | Outpatient Retail | | | | 2016 | Visit | [facility] | | | | | | [address] | | | | | | [employer] [facility] | | | | | | [place], [place] | | | | | | [address] | | | +--------+ + + + [...]
[~2017-05-04 21:43] MED LIST: 12 HOUR NASAL R15 ML NAS; ACYCLOVIR800 MG PO; AMOX TR-K CLV1 EAC1 PO; ANTACID ULTRA400 MG PO; ATIVAN0.5 MG PO; BENADRYL25 MG PO; BUPROPION XL150 MG PO; CALCIUM ANTACI200 MG PO; CHLORHEXIDINE473 ML PO; CYMBALTA20 MG PO; DICLOFENAC SODI75 MG PO; DITROPAN XL10 MG PO; DRONABINOL10 MG PO; DULOXETINE HCL30 MG PO; GABAPENTIN300 MG PO; HYDROCORTISONE1.5 GM TOP; HYDROMORPHONE HC4 MG PO; IBUPROFEN400 MG PO; LEVOFLOXACIN500 MG PO; LIDODERM700 MG TOP; LISINOPRIL5 MG PO; MELOXICAM15 MG PO; MIRALAX17 GM PO; NORCO 10-325 T1 EACH PO; NORCO 5-325 TA1 EACH PO; NORVASC10 MG PO; NOXAFIL100 MG PO; NYSTATIN1 EAC1 PO; NYSTATIN15 GM TOP; OMEPRAZOLE20 MG PO; ONDANSETRON ODT4 MG PO; OXYCODONE HCL5 MG PO; PROAIR RESPICL90 MCG; PROCHLORPERAZINE5 MG PO; PROCTOCORT28.35 GM PR; SEREVENT DISKU1 PUFF INH; SPIRIVA18 MCG INH; SYNTHROID75 MCG PO; TRAZODONE HCL100 MG PO; TRAZODONE HCL50 MG PO; VANCOMYCIN HCL125 MG PO; VENTOLIN HFA18 GM INH; VORICONAZOLE200 MG PO; XARELTO10 MG PO; ZANAFLEX4 M1 PO; ZANTAC150 MG PO; ZOFRAN ODT4 MG PO; ZOFRAN ODT8 MG SL; ZONEGRAN25 MG PO
[2017-05-04] MEDS ORDERED: [UNRECOGNIZED DRUG - OTHER] PO (22:13)
[2017-05-05] MEDS ORDERED: GENTAMICIN SULFA5 ML OD (00:06)
[2017-06-05] MEDS ORDERED: MULTI VITAMIN1 EACH PO (11:43)
[2017-08-14] MEDS ORDERED: LEVAQUIN500 MG PO (15:08)
[2017-08-14] MEDS ORDERED: CLARITIN10 M2 PO (15:10)
[2017-08-14] MEDS ORDERED: NEXAVAR200 MG PO (15:12)
[2017-08-14] MEDS ORDERED: KLOR-CON 1010 MEQ PO (15:12)
[2017-08-21] MEDS ORDERED: MEGACE ES625 MG/5 M PO (09:25)
== END 2017-05-05 00:10 | disposition home or self-care (01) ==
LOC: EDBD 21:43 → ED 21:43
DX: H10.9 Unspecified conjunctivitis (principal); E03.9 Hypothyroidism, unspecified; F32.9 Major depressive disorder, single episode, unspecified; J44.9 Chronic obstructive pulmonary disease, unspecified; F43.10 Post-traumatic stress disorder, unspecified; Z90.710 Acquired absence of both cervix and uterus; Z98.890 Other specified postprocedural states; Z96.651 Presence of right artificial knee joint; Z88.5 Allergy status to narcotic agent; Z79.899 Other long term (current) drug therapy
CPT/HCPCS: 99283

== ENCOUNTER 2017-06-21 10:33 | Day surgery (SDC) | payer OTHER ==
[~2017-06-21] VITALS: Ht 160 cm; Wt 88.0 kg
[~2017-06-21 10:33] MED LIST changes: +GENTAMICIN SULFA5 ML OD; +MULTI VITAMIN1 EACH PO; +[UNRECOGNIZED DRUG - OTHER] PO
--- NOTE | 2017-06-21 11:05 | NUR ---
ARRIVES AMB WITH USE OF CANES. HAS PICC IN R ARM, THIS USED FOR BLOOD DRAW AND IV FLUID.
--- NOTE | 2017-06-21 12:24 | NUR ---
06/21/17 1224 Bridgett Tadeo 1217-PATIENT ARRIVED TO PACU ON 3L NC O2 SAT 100% PATIENTS FACE REDDENED. LAYING LEFT LATERAL. BANDAID CDI.
[2017-08-14] MEDS ORDERED: LEVAQUIN500 MG PO (15:08)
[2017-08-14] MEDS ORDERED: CLARITIN10 M2 PO (15:10)
[2017-08-14] MEDS ORDERED: KLOR-CON 1010 MEQ PO (15:12)
[2017-08-14] MEDS ORDERED: NEXAVAR200 MG PO (15:12)
[2017-08-21] MEDS ORDERED: MEGACE ES625 MG/5 M PO (09:25)
== END 2017-06-21 13:00 | disposition home or self-care (01) ==
LOC: DS 10:33 → EDBD 10:33 → DS 12:00
PROVIDERS: Specialist
PROC: 07DR3ZX Extraction of Iliac Bone Marrow, Percutaneous Approach, Diagnostic (ICD-10-PCS; principal; 2017-06-21 12:00)
DX: C92.02 Acute myeloblastic leukemia, in relapse (principal); J44.9 Chronic obstructive pulmonary disease, unspecified; I10 Essential (primary) hypertension; F32.9 Major depressive disorder, single episode, unspecified; F41.9 Anxiety disorder, unspecified; F43.10 Post-traumatic stress disorder, unspecified; K52.9 Noninfective gastroenteritis and colitis, unspecified; G47.00 Insomnia, unspecified; D69.6 Thrombocytopenia, unspecified; D70.9 Neutropenia, unspecified; R50.81 Fever presenting with conditions classified elsewhere; G89.3 Neoplasm related pain (acute) (chronic); Z90.49 Acquired absence of other specified parts of digestive tract; Z96.651 Presence of right artificial knee joint; Z90.711 Acquired absence of uterus with remaining cervical stump; Z98.890 Other specified postprocedural states; Z87.891 Personal history of nicotine dependence; Z79.899 Other long term (current) drug therapy; Z88.5 Allergy status to narcotic agent
CPT/HCPCS: 80053; 83615; 85025; 99152; 99153; J2250; J3010

== ENCOUNTER 2017-08-27 00:55 | Observation (INO) | payer OTHER ==
[~2017-08-27] VITALS: Ht 160 cm; Wt 83.0 kg
--- OUTSIDE RECORDS SUMMARY | ~2017-08-27 | XMS | Encounter Summary ---
Demographics + + + | Address | [address] | | | [place] [address] | + + + | Home Phone | | + + + | Preferred Language | Unknown | + + + | Marital Status | | + + + | Orthodox Affiliation | NON | + + + | Race | White | + + + | Ethnic Group | Not or | + + + Author + + + | Author | [facility] | + + + | Organization | [facility] | + + + | Address | Unknown | + + + | Phone | Unavailable | + + + Support + + +---------+ + | Name | Relationship | Address | Phone | + + +---------+ + | Jhony Hutchison | ECON | Unknown | | + + +---------+ + | Magalis Bellamy | ECON | Unknown | | + + +---------+ + | Elmer Renee | ECON | Unknown | | + + +---------+ + | David | ECON | Unknown | | + + +---------+ + | Florin Pantoja | ECON | Unknown | | + + +---------+ + Care Team Providers + +------+ + | Care Truck Driver Supervisor Name | Role | Phone | + +------+ + | Saurav De Los Santos NP | PCP | | + +------+ + Encounter Details +--------+ + + + + | Date | Type | Department | Care Team | Description | +--------+ + + + + | 08/07/ | Pharmacy | Outpatient Retail | | | | 2017 | Visit | [facility]acy | | | | | | [address] | | | | | | [facility] | | | | | | [place], [place] | | | | | | [address] | | | +--------+ + + + + Social History + + + +--------+ + | Tobacco Use | Types | Packs/Day | Years | Date | | | | | Used | | + + + +--------+ + | Former Smoker | Cigarettes | 1 | 32 | Quit: 02/08/2016 | + + + +--------+ + + +---+---+---+ | Smokeless Tobacco: | | | | | Never Used | | | | + +---+---+---+ + + +---------+ + | Alcohol Use | Drinks/We | oz/Week | Comments | | | ek | | | + + +---------+ + | No | | | | + + +---------+ + + + + | Sex Assigned at | Date Recorded | | | | + + + | Not on file | | + + + as of this encounter Functional Status + + + + | Functional Status | Response | Date of Assessment | + + + + | Because of a physical, mental, or emotional | No | 07/09/2017 | | condition, do you have serious difficulty | | | | doing errands alone such as visiting the | | | | doctor? | | | + + + + + + + + | Cognitive Status | Response | Date of Assessment | + + + + | Because of a physical, mental, or emotional | No | 07/09/2017 | | condition, do you have serious difficulty | | | | concentrating, remembering, or making | | | | decisions? (5 years old or older) | | | + + + + as of this encounter Plan of Treatment Not on fileas of this encounter Visit Diagnoses Not on filein this encounter"
--- OUTSIDE RECORDS SUMMARY | ~2017-08-27 | XMS | Encounter Summary ---
Demographics + + + | Address | [address] | | | [place] [address] | + + + | Home Phone | | + + + | Preferred Language | Unknown | + + + | Marital Status | | + + + | Jainism Affiliation | NON | + + + | Race | White | + + + | Ethnic Group | Not or | + + + Author + + + | Author | [facility] | + + + | Organization | [facility] | + + + | Address | [...] Team Providers + +------+ + | Care Icing Maker Name | Role | Phone | + +------+ + | Saurav De Los Santos NP | PCP | | + +------+ + Encounter Details +--------+ + + + + | Date | Type | Department | Care Team | Description | +--------+ + + + + | 06/10/ | Hospital | UNLRELATED BMT | | | | 2017 | Encounter | PROGRAM [address] | | | | | | [address] [place], [place] | | | | | | [address] | | | +--------+ + + + [...] physical, mental, or emotional | No | 03/28/2017 | | condition, do you have serious difficulty | | | | doing errands alone such as visiting the | | | | doctor? | | | + + + + + + + + | Cognitive Status | Response | Date of Assessment | + + + + | Because of a physical, mental, or emotional | No | 03/28/2017 | | condition, do you have serious difficulty | | | | concentrating, remembering, or making | | | | decisions? (5 years old or older) | | | + + + + as of this encounter Medications at Time of Discharge + + +---------+---------+ + + | Medication | Sig. | Disp. | Refills | Start | End Date | | | | | | Date | | + + +---------+---------+ + + | acyclovir 800 mg | Take 1 tablet by | 30 | 11 | 04/09/20 | | | oral | mouth once daily. | tablet | | 17 | | | tabletIndications: | Indications: viral | | | | | | HSV, prophylaxis | infection prevention | | | | | + + +---------+---------+ + + | amLODIPine 10 mg | Take 1 tablet by | 30 | 5 | 04/09/20 | | | oral | mouth once daily. | tablet | | 17 | | | tabletIndications: | Indications: | | | | | | hypertension | hypertension | | | | | + + +---------+---------+ + + | levothyroxine 75 | Take 0.5 tablets by | 15 | 2 | 04/09/20 | | | mcg oral | mouth before | tablet | | 17 | | | tabletIndications: | breakfast. | | | | | | hypothyroidism | Indications: | | | | | | | hypothyroidism | | | | | + + +---------+---------+ + + | lisinopril 5 mg | Take 1 tablet by | 30 | 3 | 04/09/20 | | | oral | mouth once daily. | tablet | | 17 | | | tabletIndications: | Indications: | | | | | | hypertension | hypertension | | | | | + + +---------+---------+ + + | LORazepam 0.5 mg | Take 1 tablet by | 30 | 0 | 04/09/20 | | | oral | mouth every eight | tablet | | 17 | | | tabletIndications: | hours as needed for | | | | | | Acute myeloid | Nausea/Vomiting. | | | | | | leukemia not having | | | | | | | achieved remission | | | | | | | (HCC) | | | | | | + + +---------+---------+ + + | omeprazole 20 mg | Take 1 capsule by | 30 | 2 | 04/09/20 | | | oral capsule,delayed | mouth before | capsule | | 17 | | | | breakfast. | | | | | | release(DR/EC)Indica | Indications: | | | | | | tions: | gastroesophageal | | | | | | gastroesophageal | reflux disease | | | | | | reflux disease | | | | | | + + +---------+---------+ + + | ondansetron 4 mg | Take 1 to 2 tablets | 30 | 5 | 04/09/20 | | | oral tablet | by mouth every | tablet | | 17 | | | | twelve hours as | | | | | | | needed for | | | | | | | nausea/vomiting. | | | | | + + +---------+---------+ + + | oxybutynin CR 15 | Take 1 tablet by | 30 | 2 | 04/09/20 | | | mg oral tablet | mouth once daily. | tablet | | 17 | | | extended release | Indications: Bladder | | | | | | 24hrIndications: | Hyperactivity | | | | | | Bladder | | | | | | | Hyperactivity | | | | | | + + +---------+---------+ + + | oxyCODONE | Take 1 to 2 tablets | 60 | 0 | 04/09/20 | | | (immediate release) | by mouth every six | tablet | | 17 | | | 5 mg oral tablet | hours as needed for | | | | | | | moderate pain. | | | | | + + +---------+---------+ + + | prochlorperazine 5 | Take 1-2 tablets by | 60 | 3 | 04/09/20 | | | mg oral | mouth four times | tablet | | 17 | | | tabletIndications: | daily as needed for | | | | | | Cancer | nausea/vomiting. Max | | | | | | Chemotherapy-Induced | dose 40 mg/day. | | | | | | Nausea and Vomiting | Indications: Cancer | | | | | | | Chemotherapy-Induced | | | | | | | Nausea and Vomiting | | | | | + + +---------+---------+ + + | tiotropium 18 mcg | Inhale 1 capsule | 30 | 5 | 04/09/20 | | | inhalation capsule, | once daily. | capsule | | 17 | | | w/inhalation | Indications: | | | | | | deviceIndications: | Bronchospasm | | | | | | Bronchospasm | Prevention with COPD | | | | | | Prevention with COPD | | | | | | + + +---------+---------+ + + | traZODone 50 mg | Take 0.5-1 tablets | 30 | 0 | 04/09/20 | | | oral | by mouth once daily | tablet | | 17 | | | tabletIndications: | at bedtime as | | | | | | insomnia associated | needed. Indications: | | | | | | with depression | insomnia associated | | | | | | | with depression | | | | | + + +---------+---------+ + + | VENTOLIN HFA 90 | Inhale 1 puff by | 1 | 5 | 04/09/20 | | | mcg/actuation | mouth every six | Inhaler | | 17 | | | inhalation HFA | hours as needed | | | | | | aerosol | (shortness of | | | | | | inhalerIndications: | breath, wheezing). | | | | | | Acute Asthma Attack | Indications: Acute | | | | | | | Asthma Attack | | | | | + + +---------+---------+ + + as of this encounter Plan of Treatment Not on fileas of this encounter Visit Diagnoses Not on filein this encounter Admitting Diagnoses + + | Diagnosis | + + | Acute myeloblastic leukemia, not having achieved remission | + +"
--- OUTSIDE RECORDS SUMMARY | ~2017-08-27 | XMS | Encounter Summary ---
Demographics + + + | Address | [address] | | | [place] [address] | + + + | Home Phone | | + + + | Preferred Language | Unknown | + + + | Marital Status | | + + + | Evangelical Affiliation | NON | + + + | Race | White | + + + | Ethnic Group | Not or | + + + Author + + + | Author | [facility] | + + + | Organization | [facility] | + + + | Address [...] Team Providers + +------+ + | Care Business Functional Analyst Name | Role | Phone | + +------+ + | Saurav De Los Santos NP | PCP | | + +------+ + Reason for Visit + + + | Reason | Comments | + + + | Treatment Planning | | + + + Encounter Details +--------+ + + + + | Date | Type | Department | Care Team | Description | +--------+ + + + + | 06/25/ | Telephone | Center for | Gloria Ramirez | Treatment Planning | | 2017 | | Hematologic | Yared RN [address] | | | | | Malignancies at | [address] | | | | | [address] | [place], [place] | | | | | [address] | [address] | | | | | [facility] | [phone] | | | | | Mailcode: [id number] | | | | | | [address] | | | | | | [place], [place] | | | | | | [address] | | | | | | [phone] | | | +--------+ + + + [...]
--- OUTSIDE RECORDS SUMMARY | ~2017-08-27 | XMS | Encounter Summary ---
Demographics + + + | Address | [address] | | | [place] [address] | + + + | Home Phone | | + + + | Preferred Language | Unknown | + + + | Marital Status | | + + + | Jewish Affiliation | NON | + + + | Race | White | + + + | Ethnic Group | Not or | + + + Author + + + | Author | [facility] | + + + | Organization | [facility] | + + + | [...] Team Providers + +------+ + | Care Steel Post Installer Supervisor Name | Role | Phone | + +------+ + | Saurav De Los Santos NP | PCP | | + +------+ + Reason for Visit AUTH/CERT +--------+--------+ + + + + | Status | Reason | Specialty | Diagnoses / | Referred By | Referred To | | | | | Procedures | Contact | Contact | +--------+--------+ + + + + | | | | | | | +--------+--------+ + + + + Encounter Details +--------+---------+ + + + | Date | Type | Department | Care Team | Description | +--------+---------+ + + + | 08/01/ | Office | Center for | Leatha Gilmore | Acute myeloid | | 2018 | Visit | Hematologic | M, PARER [address] [facility] | leukemia not having | | | | Malignancies at | [facility] | achieved remission | | | | [facility] | [place], [place] | (HCC) (Primary Dx) | | | | [address] [facility] | [address] | | | | | [address] | [phone] | | | | | Mailcode: [id number] | | | | | | [facility] | Adrián Singer MD | | | | | [place], [place] | [address] [facility] | | | | | [address] | [address] [place], | | | | | [phone] | [place] [address] | | | | | | [phone] | | | | | | | | | | | | Glenna Shah, | | | | | | POLYETHYLENE COMBINER [address] [facility] | | | | | | [facility] | | | | | | [place], [place] | | | | | | [address] | | | | | | [phone] | | | | | | | | +--------+---------+ + + + Social History + + [...] + + + as of this encounter Progress Notes Leatha Gilmore NP - 08/01/2017 2:30 PM PDTSee procedure note for LUKASZ Oliver in th is encounter Plan of Treatment Not on fileas of this encounter Visit Diagnoses + + | Diagnosis | + + | Acute myeloid leukemia not having achieved remission (HCC) - Primary | + +"
--- OUTSIDE RECORDS SUMMARY | ~2017-08-27 | XMS | Encounter Summary ---
Demographics + + + | Address | [address] | | | [place] [address] | + + + | Home Phone | | + + + | Preferred Language | Unknown | + + + | Marital Status | | + + + | Zoroastrianism Affiliation | NON | + + + | Race | White | + + + | Ethnic Group | Not or | + + + Author + + + | Author | [facility] | + + + | Organization | [facility] | + + + | Address | [...] Team Providers + +------+ + | Care Electroneurodiagnostic Technician Name | Role | Phone | + +------+ + | Saurav De Los Santos NP | PCP | | + +------+ + Reason for Visit + + + | Reason | Comments | + + + | Transplant | LIT HLA Typing - Family Results | + + + Encounter Details +--------+ + + + + | Date | Type | Department | Care Team | Description | +--------+ + + + + | 06/14/ | Documentati | Kidney Transplant | Alexx Aguirre, | Transplant (LIT HLA | | 2018 | on | at [facility] [address] | [address] | Typing - Family | | | | [facility] | [facility] [address] | Results ) | | | | Mailcode: [id number] | [place], [place] | | | | | [facility] | [address] | | | | | [address] [place], | [phone] | | | | | [place] [address] | | | | | | [phone] | | | +--------+ + + + [...]
--- OUTSIDE RECORDS SUMMARY | ~2017-08-27 | XMS | Encounter Summary ---
Demographics + + + | Address | [address] | | | [place] [address] | + + + | Home Phone | | + + + | Preferred Language | Unknown | + + + | Marital Status | | + + + | Adventist Affiliation | NON | + + + [...] Team Providers + +------+ + | Care Bait Painter Name | Role | Phone | + +------+ + | Saurav De Los Santos NP | PCP | | + +------+ + Encounter Details +--------+ + + + + | Date | Type | Department | Care Team | Description | +--------+ + + + + | 08/06/ | Pharmacy | Specialty Pharmacy | | | | 2017 | Visit | Services [address] | | | | | | [address] | | | | | | [place], [place] | | | | | | [address] | | | | | | [phone] | | | +--------+ + + + [...]
--- OUTSIDE RECORDS SUMMARY | ~2017-08-27 | XMS | Encounter Summary ---
Demographics + + + | Address | [address] | | | [place] [address] | + + + | Home Phone | | + + + | Preferred Language | Unknown | + + + | Marital Status | | + + + | Temple Affiliation | NON | + + + | Race | White | + + + | Ethnic Group | Not or | + + + Author + + + | Author | [facility] | + + + | Organization | [facility] | + + + | Address [...] Team Providers + +------+ + | Care Incident Response Specialist Name | Role | Phone | + [...] [address] | | | | | | [facility] | | | | | | [place], [place] | | | | | | [address] | | | +--------+ + + + [...]
--- OUTSIDE RECORDS SUMMARY | ~2017-08-27 | XMS | Encounter Summary ---
Demographics + + + | Address | [address] | | | [place] [address] | + + + | Home Phone | | + + + | Preferred Language | Unknown | + + + | Marital Status | | + + + | Christian Affiliation | NON | + + + | Race | White | + + + | Ethnic Group | Not or | + + + Author + + + | Author | [facility] | + + + | Organization | [facility] | + + + | Address | [...] Team Providers + +------+ + | Care Ornithology Teacher Name | Role | Phone | + [...] | | | | Malignancies at | [address] | | | | | [address] | [place], [place] | | | | | [address] | [address] | | | | | [facility] | [phone] | | | | | Mailcode: [id number] | | | | | | [address] | | | | | | [place], [place] | | | | | | [address] | | | | | | [phone] | | | +--------+ + + + [...]
--- OUTSIDE RECORDS SUMMARY | ~2017-08-27 | XMS | Encounter Summary ---
Demographics + + + | Address | [address] | | | [place] [address] | + + + | Home Phone | | + + + | Preferred Language | Unknown | + + + | Marital Status | | + + + | Protestant Affiliation | NON | + + + | Race | White | + + + | Ethnic Group | Not or | + + + Author + + + | Author | [facility] | + + + | Organization | [facility] | + + + | Address | [...] Team Providers + +------+ + | Care Residential Housekeeper Name | Role | Phone | + +------+ + | Saurav De Los Santos NP | PCP | | + +------+ + Encounter Details +--------+ + + + + | Date | Type | Department | Care Team | Description | +--------+ + + + + | 08/06/ | Commercial Credit Officer | Center for | Shayna Gardiner, | Acute myeloid | | 2018 | | Hematologic | [place] [address] | leukemia not having | | | | Malignancies at | [address] | achieved remission | | | | [facility] | [place], [place] | (HCC) (Primary Dx) | | | | [address] | [address] | | | | | [facility] | [phone] | | | | | Mailcode: [id number] | | | | | | [facility] | | | | | | [place], [place] | | | | | | [address] | | | | | | [phone] | | | +--------+ + + + [...]
--- OUTSIDE RECORDS SUMMARY | ~2017-08-27 | XMS | Encounter Summary ---
Demographics + + + | Address | [address] | | | [place] [address] | + + + | Home Phone | | + + + | Preferred Language | Unknown | + + + | Marital Status | | + + + | Cheondoism Affiliation | Unknown | + + + | Race | Unknown | + + + | Ethnic Group | Unknown | + + + Author + + + | Author | [facility] | | | and [place] | + + + | Organization | [facility] | | | and [place] | + + + | Address | Unknown | + + + | Phone | Unavailable | + + + Support + + + + + | Name | Relationship | Address | Phone | + + + + + | Jhony Hutchison | ECON | [address] | | | | | [address] [place] | | | | | [address] | | + + + + + | Florin Pantoja | ECON | Unknown | | + + + + + Care Team Providers + +------+ + | Care Track Service Worker Name | Role | Phone | + +------+ + | Saurav De Los Santos NP | PCP | | + +------+ + Reason for Visit + + + | Reason | Comments | + + + | Medication Refill | | + + + Encounter Details +--------+--------+ + + + | Date | Type | Department | Care Team | Description | +--------+--------+ + + + | 06/03/ | Refill | [facility] | Leonardo, | Medication Refill | | 2018 | | [facility] | Daniel French MD [address] | | | | [address] | [facility] | | | | | [address] [facility] | [place] [address] | | | | | [place] [address] | [phone] | | | | | [phone] | | | +--------+--------+ + + + Social History + +-------+ +--------+ + | Tobacco Use | Types | Packs/Day | Years | Date | | | | | Used | | + +-------+ +--------+ + | Former Smoker | | 1.5 | 33 | 04/29/1980 - | | | | | | 01/28/2016 | + +-------+ +--------+ + + +---+---+---+ | Smokeless Tobacco: | | | | | Never Used | | | | + +---+---+---+ + + +---------+ + | Alcohol Use | Drinks/We | oz/Week | Comments | | | ek | | | + + +---------+ + | Yes | | | Social | + + +---------+ + + + + | Sex Assigned at | Date Recorded | | | | + + + | Not on file | | + + + as of this encounter Functional Status + + + + | Functional Status | Response | Date of Assessment | + + + + | Are you deaf or do you have serious | No | 06/25/2016 | | difficulty hearing? | | | + + + + | Are you blind or do you have serious | No | 06/25/2016 | | difficulty seeing, even when wearing | | | | glasses? | | | + + + + | Do you have serious difficulty walking or | Yes | 06/25/2016 | | climbing stairs? (5 years old or older) | | | + + + + | Do you have difficulty dressing or bathing? | No | 06/25/2016 | | (5 years old or older) | | | + + + + | Because of a physical, mental, or emotional | No | 06/25/2016 | | condition, do you have difficulty doing | | | | errands alone such as visiting a doctor's | | | | office or shopping? [15 years old or | | | | older)] | | | + + + + + + + + | Cognitive Status | Response | Date of Assessment | + + + + | Because of a physical, mental, or emotional | No | 06/25/2016 | | condition, do you have serious difficulty | | | | concentrating, remembering, or making | | | | decisions? (5 years old or older) | | | + + + + as of this encounter Plan of Treatment Not on fileas of this encounter Visit Diagnoses + + | Diagnosis | + + | Nausea | + + | Nausea alone | + +"
--- OUTSIDE RECORDS SUMMARY | ~2017-08-27 | XMS ---
Demographics + + + | Address | [address] | | | [address] | | | [place] [address] | + + + | Preferred Language | Unknown | + + + | Marital Status | Unknown | + + + | Mandaeism Affiliation | Unknown | + + + | Race | Unknown | + + + | Ethnic Group | Unknown | + + + Author + + + | Author | [facility] | + + + | Organization | [facility] | + + + | Address | [address] | | | [place] [address] | + + + | Phone | | + + + Care Team Providers + + + + | Care Head Tennis Professional Name | Role | Phone | + + + + Unavailable | Unavailable | + + + + PROBLEMS +---------+ + + +--------+ + + | Type | Condition | ICD9-CM | [id number] | Onset | Condition | SNOMED | | | | Code | Code | Dates | Status | Code | +---------+ + + +--------+ + + | Problem | Acute | C92.00 | | | Active | [id number] | | | myeloid | | | | | | | | leukemia | | | | | | +---------+ + + +--------+ + + | Problem | Weakness | | R53.1 | | Active | 61345697 | +---------+ + + +--------+ + + | Problem | Fall | | W19.XXXA | | Active | 5828672 | +---------+ + + +--------+ + + | Problem | SUICIDAL | V62.84 | | | Active | 0295090 | | | IDEATION | | | | | | +---------+ + + +--------+ + + | Problem | History of | V13.89 | | | Active | | | | lump of | | | | | | | | left | | | | | | | | breast | | | | | | +---------+ + + +--------+ + + | Problem | Acalculous | 575.10 | | | Active | 55551883 | | | | | | | | | | | cholecysti | | | | | | | | tis | | | | | | +---------+ + + +--------+ + + | Problem | Radiculopa | | M54.17 | | Active | 4154597 | | | thy, | | | | | | | | lumbosacra | | | | | | | | l region | | | | | | +---------+ + + +--------+ + + | Problem | Tobacco | V65.42 | | | Active | 439191736 | | | abuse | | | | | | | | counseling | | | | | | +---------+ + + +--------+ + + | Problem | 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 | | | | | | | | hip | | | | | | +---------+ + + +--------+ + + | Problem | Family | V16.0 | | | Active | [id number] | | | history of | | | | | | | | colon | | | | | | | | cancer | | | | | | | | requiring | | | | | | | | screening | | | | | | | | colonoscop | | | | | | | | y | | | | | | +---------+ + + +--------+ + + | Problem | Stress | | N39.3 | | Active | 49347022 | | | incontinen | | | | | | | | ce | | | | | | | | (female) | | | | | | | | (male) | | | | | | +---------+ + + +--------+ + + | Problem | Facet | M46.96 | | | Active | 036048769 | | | arthropath | | | | | | | | y, lumbar | | | | | | +---------+ + + +--------+ + + | Problem | Radiculopa | | M54.12 | | Active | 73535477 | | | thy, | | | | | | | | cervical | | | | | | | | region | | | | | | +---------+ + + +--------+ + + | Problem | At high | Z91.81 | | | Active | 940314085 | | | risk for | | | | | | | | falls | | | | | | +---------+ + + +--------+ + + | Problem | Mobility | Z74.09 | | | Active | 03715246 | | | impaired | | | | | | +---------+ + + +--------+ + + | Problem | 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 | | | | | | +---------+ + + +--------+ + + | Problem | Lump of | 611.72 | | | Active | 95289169 | | | left | | | | | | | | breast | | | | | | +---------+ + + +--------+ + + | Problem | History of | V12.29 | | | Active | 9370174 | | | goiter | | | | | | +---------+ + + +--------+ + + | Problem | Obesity | | E66.9 | | Active | 512174851 | +---------+ + + +--------+ + + | Problem | Tobacco | | Z72.0 | | Active | 451919814 | | | use | | | | | | +---------+ + + +--------+ + + | Problem | Status | Z96.651 | | | Active | 4493321697 | | | post total | | | | | 02 | | | knee | | | | | | | | replacemen | | | | | | | | t, right | | | | | | +---------+ + + +--------+ + + | Problem | Elevated | | D72.829 | | Active | 258821556 | | | white | | | | | | | | blood cell | | | | | | | | count, | | | | | | | | unspecifie | | | | | | | | d | | | | | | +---------+ + + +--------+ + + | Problem | Major | F33.9 | | | Active | 65291713 | | | depressive | | | | | | | | disorder, | | | | | | | | recurrent | | | | | | | | episode, | | | | | | | | unspecifie | | | | | | | | d severity | | | | | | +---------+ + + +--------+ + + | Problem | Other | G89.29 | | | Active | 70227978 | | | chronic | | | | | | | | pain | | | | | | +---------+ + + +--------+ + + | Problem | Radiculopa | | M54.16 | | Active | 914982506 | | | thy, | | | | | | | | lumbar | | | | | | | | region | | | | | | +---------+ + + +--------+ + + | Problem | COPD | | J44.9 | | Active | 01889183 | | | (chronic | | | | | | | | obstructiv | | | | | | | | e | | | | | | | | pulmonary | | | | | | | | disease) | | | | | | +---------+ + + +--------+ + + | Problem | Hypothyroi | | E03.9 | | Active | 05349161 | | | dism | | | | | | +---------+ + + +--------+ + + | Problem | Stress | N39.3 | | | Active | 32127282 | | | incontinen | | | | | | | | ce | | | | | | +---------+ + + +--------+ + + | Problem | Pain in | | M25.551 | | Active | 058003605 | | | right hip | | | | | | +---------+ + + +--------+ + + | Problem | Degenerati | M47.816 | | | Active | 75465656 | | | ve | | | | | | | | arthritis | | | | | | | | of lumbar | | | | | | | | spine | | | | | | +---------+ + + +--------+ + + ALLERGIES Unknown Allergies SOCIAL HISTORY No smoking Hx information available PLAN OF CARE VITAL SIGNS MEDICATIONS Unknown Medications RESULTS No Results PROCEDURES No Known procedures IMMUNIZATIONS No Known Immunizations"
--- OUTSIDE RECORDS SUMMARY | ~2017-08-27 | XMS | Encounter Summary ---
Demographics + + + | Address | [address] | | | [place] [address] | + + + | Home Phone | | + + + | Preferred Language | Unknown | + + + | Marital Status | | + + + | Temple Affiliation | NON | + + + | Race | White | + + + | Ethnic Group | Not or | + + + Author + + + | Author | [facility] | + + + | Organization | [facility] | + + + | Address [...] | + + +---------+ + | Florin Patnoja | ECON | Unknown | | + + +---------+ + Care Team Providers + +------+ + | Care Truckload Owner Operator Name | Role | Phone | + [...] | | | | | | Road [place], [place] | | | | | | [address] | | | +--------+ + + + [...]
--- OUTSIDE RECORDS SUMMARY | ~2017-08-27 | XMS | Encounter Summary ---
Demographics + + + | Address | [address] | | | [place] [address] | + + + | Home Phone | | + + + | Preferred Language | Unknown | + + + | Marital Status | | + + + | Presybeterian Affiliation | NON | + + + [...] Team Providers + +------+ + | Care Dip Unit Operator Name | Role | Phone | + +------+ + | Saurav De Los Santos NP | PCP | | + +------+ + Encounter Details +--------+ + + + + | Date | Type | Department | Care Team | Description | +--------+ + + + + | 05/31/ | Hospital | [facility] | | | | 2017 | Encounter | PROGRAM [id number] | | | | | [address] | | | | | | Road [place], [place] | | | | | | [address] | | | +--------+ + + + [...]
--- OUTSIDE RECORDS SUMMARY | ~2017-08-27 | XMS ---
Demographics + + + | Address | [address] | | | [address] | | | [place] [address] | + + + | Preferred Language | Unknown | + + + | Marital Status | Unknown | + + + | Jewish Affiliation | Unknown | + + + | Race | Unknown | + + + | Ethnic Group | Unknown | + + + Author + + + | Author | [facility] | + + + | Organization | [facility] | + + + | Address | [address] | | | [place] [address] | + + + | Phone | | + + + Care Team Providers + + + + | Care Bearing Press Machine Operator Name | Role | Phone | + + + + Unavailable | Unavailable | + + + + PROBLEMS +---------+ + + +--------+ + + | Type | Condition | ICD9-CM | [id number] | Onset | Condition | SNOMED | | | | Code | Code | Dates | Status | Code | +---------+ + + +--------+ + + | 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 | | | | | | +---------+ + + +--------+ + + | Problem | Weakness | | R53.1 | | Active | 34447261 | +---------+ + + +--------+ + + | Problem | Fall | | W19.XXXA | | Active | 1784205 | +---------+ + + +--------+ + + | Problem | SUICIDAL | V62.84 | | | Active | 4909188 | | | IDEATION | | | [...] | 575.10 | | | Active | 32468062 | | | | | | | | | | | cholecysti | | | | | | | | tis | | | | | | +---------+ + + +--------+ + + | Problem | Radiculopa | | M54.17 | | Active | 5310208 | | | thy, | | | | | | | | lumbosacra | | | | | | | | l region | | | | | | +---------+ + + +--------+ + + | Problem | Tobacco | V65.42 | | | Active | 790191613 | | | abuse | | | | | | | | counseling | | | | | | +---------+ + + +--------+ + + | 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 | | | | | | | | hip | | | | | | +---------+ + + +--------+ + + | Problem | Family | V16.0 | | | Active | 104635173 | | | history of | | [...] | | N39.3 | | Active | 20768558 | | | incontinen | | | | | | | | ce | | | | | | | | (female) | | | | | | | | (male) | | | | | | +---------+ + + +--------+ + + | Problem | Facet | M46.96 | | | Active | 678216694 | | | arthropath | | | | | | | | y, lumbar | | | | | | +---------+ + + +--------+ + + | Problem | Radiculopa | | M54.12 | | Active | 02210799 | | | thy, | | | | | | | | cervical | | | | | | | | region | | | | | | +---------+ + + +--------+ + + | Problem | At high | Z91.81 | | | Active | 921869154 | | | risk for | | | | | | | | falls | | | | | | +---------+ + + +--------+ + + | Problem | Mobility | Z74.09 | | | Active | 17150724 | | | impaired | | | | | | +---------+ + + +--------+ + + | Problem | 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 | | | | | | +---------+ + + +--------+ + + | Problem | Lump of | 611.72 | | | Active | 39731727 | | | left | | | | | | | | breast | | | | | | +---------+ + + +--------+ + + | Problem | History of | V12.29 | | | Active | 1624210227 | | | goiter | | | | | [address]97 | +---------+ + + +--------+ + + | Problem | Obesity | | E66.9 | | Active | 403744363 | +---------+ + + +--------+ + + | Problem | Tobacco | | Z72.0 | | Active | 855679413 | | | use | | | | | | +---------+ + + +--------+ + + | Problem | Status | Z96.651 | | | Active | 9904448230 | | | post total | | | | | 02 | | | knee | | | | | | | | replacemen | | | | | | | | t, right | | | | | | +---------+ + + +--------+ + + | Problem | Elevated | | D72.829 | | Active | 940580049 | | | white | | | [...] | F33.9 | | | Active | 04626958 | | | depressive | | | [...] | G89.29 | | | Active | 15487153 | | | chronic | | | | | | | | pain | | | | | | +---------+ + + +--------+ + + | Problem | Radiculopa | | M54.16 | | Active | 992560895 | | | thy, | | | | | | | | lumbar | | | | | | | | region | | | | | | +---------+ + + +--------+ + + | Problem | COPD | | J44.9 | | Active | 76019645 | | | (chronic | | | | | | | | obstructiv | | | | | | | | e | | | | | | | | pulmonary | | | | | | | | disease) | | | | | | +---------+ + + +--------+ + + | Problem | Hypothyroi | | E03.9 | | Active | 36613064 | | | dism | | | | | | +---------+ + + +--------+ + + | Problem | Stress | N39.3 | | | Active | 36302954 | | | incontinen | | | | | | | | ce | | | | | | +---------+ + + +--------+ + + | Problem | Pain in | | M25.551 | | Active | 500014984 | | | right hip | | | | | | +---------+ + + +--------+ + + | Problem | Degenerati | M47.816 | | | Active | 79302311 | | | ve | | | | | | | | arthritis | | | | | | | | of lumbar | | | | | | | | spine | | | | | | +---------+ + + +--------+ + + ALLERGIES + + + + +--------+ | Substance | Reaction | Event Type | Date | Status | + + + + +--------+ | Morphine | rash | Drug Allergy | 27 Oct, 2016 | Active | + + + + +--------+ SOCIAL HISTORY No smoking Hx information available PLAN OF CARE + +---------+ | Activity | Details | + +---------+ +---+ | | +---+ + + + | Follow Up | 3 Months Reason:null | + + + | Pending Test | Aerobic Bacterial Culture | + + + VITAL SIGNS + + + + | Height | 63 in | 2016-11-22 | + + + + | Weight | 193 lbs | 2016-11-22 | + + + + | BMI | 34.18 kg/m2 | 2016-11-22 | + + + + | Temperature | 97.8 degrees Fahrenheit | 2016-11-22 | + + + + | Heart Rate | 96 /min | 2016-11-22 | + + + + | Blood pressure systolic | 133 mm Hg | 2016-11-22 | + + + + | Blood pressure diastolic | 84 mm Hg | 2016-11-22 | + + + + MEDICATIONS + + + + + + + +--------+ | Medicati | Instruct | Dosage | Frequenc | Start | End Date | Duration | Status | | on | ions | | y | Date | | | | + + + + + + + +--------+ | Oxybutyn | Orally | 1 tablet | 24h | 14 Feb, | | 30 | Active | | in | Once a | | | 2017 | | | | | Chloride | day | | | | | | | | ER 10 | | | | | | | | | MG | | | | | | | | + + + + + + + +--------+ | Ondanset | Orally | 1 tablet | 12h | | | | Active | | ayesha 4 mg | every 12 | on the | | | | | | | | hrs | tongue | | | | | | | | | and | | | | | | | | | allow to | | | | | | | | | | | | | | | | | | dissolve | | | | | | + + + + + + + +--------+ | Tizanidi | Orally | 1 tablet | 8h | | | | Active | | ne HCl 4 | every 8 | as | | | | | | | MG | hrs | needed | | | | | | + + + + + + + +--------+ | Trazodon | Orally | 1-2 | 24h | | | | Active | | e 100 mg | Once a | tablet | | | | | | | | day | at | | | | | | | | | bedtime | | | | | | + + + + + + + +--------+ | Antacid | Orally | 1 tablet | 8h | | | | Active | | Calcium | Three | | | | | | | | 500 mg | times a | | | | | | | | | day | | | | | | | + + + + + + + +--------+ | Crutch | | as | | 08 Apr, | | | Active | | Strong | | directed | | 2016 | | | | | Arm type | | | | | | | | + + + + + + + +--------+ | Benadryl | Orally | 1 tablet | 8h | | | | Active | | Allergy | every 8 | as | | | | | | | 25 MG | hrs | needed | | | | | | + + + + + + + +--------+ | Acyclovi | Orally | 1 tablet | 24h | | | | Active | | r 800 MG | daily | | | | | | | + + + + + + + +--------+ | Lorazepa | Orally | 1 tablet | 8h | | | | Active | | m 0.5 MG | every 8 | as | | | | | | | | hrs | needed | | | | | | + + + + + + + +--------+ | Spiriva | | | | | | | Active | | HandiHal | | | | | | | | | er 18 | | | | | | | | | MCG | | | | | | | | + + + + + + + +--------+ | Spacer/A | | as | | 10 Jun, | | | Active | | ero | | directed | | 2014 | | | | | Chamber | | -to use | | | | | | | Mouthpie | | with | | | | | | | ce | | ventolin | | | | | | + + + + + + + +--------+ | Cymbalta | Orally | 1 | 24h | | | | Active | | 90 mg | Once a | capsule | | | | | | | | day | | | | | | | + + + + + + + +--------+ | Bactrim | Orally | 1 tablet | 12h | 27 Oct, | 10 Aug, | 14 days | Active | | DS | Twice a | | | 2016 | 2016 | | | | 800-160 | day | | | | | | | | MG | | | | | | | | + + + + + + + +--------+ | Docusate | Orally | 1 | 24h | | | | Active | | Sodium | Once a | capsule | | | | | | | 100 MG | day | as | | | | | | | | | needed | | | | | | + + + + + + + +--------+ | Support | | Full | | Feb, | Fe, | 99 | Active | | Stocking | | Length | | 2014 | 2023 | months | | | s | | Support | | | | | | | | | Hose to | | | | | | | | | fit | | | | | | + + + + + + + +--------+ RESULTS No Results PROCEDURES + + + + + | Procedure | Date Ordered | Related Diagnosis | Body Site | + + + + + | Est Level III | November 22, 2016 | | | | Intermediate | | | | + + + + + | DSCHRG MED/CURRENT | November 22, 2016 | | | | MED MERGE | | | | + + + + + | DOC MEDS VERIFIED | November 22, 2016 | | | | W/PT OR RE | | | | + + + + + IMMUNIZATIONS No Known Immunizations"
--- OUTSIDE RECORDS SUMMARY | ~2017-08-27 | XMS | Encounter Summary ---
Demographics + + + | Address | [address] | | | [place] [address] | + + + | Home Phone | | + + + | Preferred Language | Unknown | + + + | Marital Status | | + + + | Sabianism Affiliation | Unknown | + + + | Race | Unknown | + + + | Ethnic Group | Unknown | + + + Author + + + | Author | [facility] | | | and [place] | + + + | Organization | [facility] | | | and [place] | + + + | Address | Unknown | + + + | Phone | Unavailable | + + + Support + + + + + | Name | Relationship | Address | Phone | + + + + + | Jhony Hutchison | ECON | [address] [place] | | | | | [address] [place] | | | | | [address] | | + + + + + | Florin Pantoja | ECON | Unknown | | + + + + + Care Team Providers + +------+ + | Care Wire Bound Box Machine Operator Name | Role | Phone | + +------+ + | Saurav De Los Santos NP | PCP | | + +------+ + Encounter Details +--------+ + + + + | Date | Type | Department | Care Team | Description | +--------+ + + + + | 06/28/ | Telephone | [facility] | [place], | | | 2017 | | [facility] | Daniel French MD [address] | | | | [facility] [address] | | | | | [address] | [place] [address] | | | | | [place] [address] | [phone] | | | | | [phone] | | | +--------+ + + + + Social History + +-------+ [...]
--- OUTSIDE RECORDS SUMMARY | ~2017-08-27 | XMS | Encounter Summary ---
Demographics + + + | Address | [address] | | | [place] [address] | + + + | Home Phone | | + + + | Preferred Language | Unknown | + + + | Marital Status | | + + + | Buddhism Affiliation | NON | + + + | Race | White | + + + | Ethnic Group | Not or | + + + Author + + + | Author | [facility] | + + + | Organization | [facility] | + + + | Address [...] Team Providers + +------+ + | Care Town Marshal Name | Role | Phone | + +------+ + | Saurav Small NP | PCP | | + +------+ + Reason for Visit + + + | Reason | Comments | + + + | Leukemia | | + + + AUTH/CERT +--------+--------+ [...] + + + + | 06/28/ | Hospital | [facility] [address] [address] | [place], | | | 2018 - | Encounter | [address] | [address] | | | | | Road Mailcode: | Ave [place], [place] | | | 08/08/ | | [id number] | [address] | | | 2018 | | [facility] [place], | [phone] | | | | | [place] [address] | | | | | | [phone] | Pepe Chavis MD | | | | | | [address] | | | | | | [place], | | | | | | [place] [address] | | | | | | [phone] | | | | | | | | | | | | Kay Duarte MD | | | | | | [address] | | | | | | [place], | | | | | | [place] [address] | | | | | | [phone] | | | | | | | | | | | | Angelia Thompson, | | | | | | [address] | | | | | | [address] | | | | | | [place], [place] | | | | | | [address] | | | | | | [phone] | | | | | | | [...] + + + | Blood Pressure | 124/69 | 08/08/2017 9:07 AM PDT | + + + + | Pulse | 100 | 08/08/2017 9:07 AM PDT | + + + + | Temperature | 36.6 C (97.9 F) | 08/08/2017 9:07 AM PDT | + + + + | Respiratory Rate | 20 | 08/08/2017 9:07 AM PDT | + + + + | Oxygen Saturation | 94% | 08/08/2017 9:07 AM PDT | + + + + | Inhaled Oxygen | - | - | | Concentration | | | + + + + | Weight | 83.2 kg (183 lb 6.4 | 08/05/2017 12:24 PM PDT | | | oz) | | + + + + | Height | 159 cm (5' 2.6") | 06/28/2017 10:23 PM PST | + + + + | Body Mass Index | 32.91 | 08/05/2017 12:24 PM PDT | + + + + in this [...] + as of this encounter Discharge Summaries Noris Banegas ACNP - 08/08/2017 12:30 PM PDTFormatting of this note may be different from the original. [facility] Discharge Summary Discharging Provider: KIMMIE BOSE Discharging Attending Physician: Pepe Chavis MD Hospital Stay: 41 day(s) PCP: Saurav Small NP Admission Date: 06/28/2017 Discharge Date: 08/08/2017 Hospital Stay: 41 day(s) Reason for Admission: Admitted fr eval and treatment of relapsed AML Principal Final Diagnosis: AML refractory Additional Diagnoses: COPD (chronic obstructive pulmonary disease) Anxiety and depression Acute myeloid leukemia not having achieved remission Learning disability Rash of face Neutropenic fever Pancytopenia due to antineoplastic chemotherapy Transaminitis Hepatosplenomegaly Pleural effusion Proctitis Protein-calorie malnutrition, mild Immunocompromised state Chemotherapy induced diarrhea Procedures: Hospital Course: [facility] Physician: Pepe Chavis MD Local Oncologist: Daniel Patterson MD PCP: Saurav Small NP Brief hospital synopsis: Ms Hutchison is a 51 yo woman with second relapse AML, FLT3 ITD admitte d for reinduction therapy. She has an extensive history of several regimens tried in past, see H/P for complete details and her clinic notes. Was given Arlette + modified Maurizio-C. Unfortun ately she did not recovery counts at 4 weeks, so a bone marrow was done that showed poor ramiro lularity but 80% blasts. Lengthy discussions with patient and her family. We are trying to get Sorafanib approval from her [facility], but so far they have denied all appeals. The p urpose of the Sorafanib would be to try to extend her life. She understands that she no santiago pro has any other treatment options and is going home for follow up with Dr. Patterson. Toy baker wants to continue receiving blood product support until she no longer feels well and then will change to hospice. Her family is aware of the plan, and Dr. Chavis did speak with Dr. Rory allen immediately before discharge. Of note, she did have fevers within 24 hours of leaving. [place] to be most c/w disease fevers . Pt was asymptomatic. Cultures were drawn, will notify Dr. Patterson if positive results returned. Will dc on levaquin. COMPLETE SUMMARY OF PATIENT'S HOSPITALIZATION History of Present Illness: (from H&P) Rhea Hutchison is a 51-year-old woman with a history of COPD, depression, hypothyroidism, and AML diagnosed in late 2015 after she presented with pleuritic chest pain and shortness of br eath in addition to profound leukocytosis. Her disease was initially managed with 7+3+ Dasa tinib, course gated by neutropenic fevers, C. difficile, nodular groundglass opacities sudeep rning for invasive fungal infection (although galactomannan negative), treated with Isavucon azole -> Voriconazole. She was reinduced with Cytarabine and entered CR1. She subsequently relapsed in February 2017 started on FLAG-Arlette salvage-->CR2. Her course was subsequently c omplicated by bacterial pneumonia, otherwise recovered well Patient presents as a transfer from outside hospital ([facility]) where she pres ented with body aches and profound fatigue, anemic with new leukocytosis. Repeat bone marro w biopsy concerning for relapsed AML (blasts positive for CD 117, CD33). In the interim sin ce her initial admission, the patient endorses development of new new acute onset pleuritic left-sided chest pain. She states that this chest pain is stabbing, 5-6 out of 10 in intens ity. It is accompanied by a degree of resting dyspnea. Patient also endorses nagging cough productive of white/yellow sputum of approximately 1 week's duration. She denies constitut ional symptoms including fevers, chills, night sweats. She denies new palpitations. She de nies new oral lesions or odynophagia. She does endorse a degree of ongoing nausea but state s that that is baseline for her. She denies emesis. Endorses a degree of constipation. De nies deep new complaints. She does endorse a developing petechial rash over bilateral lo wer extremities, as well as her upper back. She denies new adenopathy. Hospitalization History: Hematology: #Relapsed Flt3 AML: Had salvage FLAG-Arlette + Midostaurin and Azacitidine bridge while awaitin g SCT now with relapse. Pertinent Diagnostics: -BM Bx 06/21/17 ([facility] [id number]): -Results: 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 myelogenous leukemia (60%); Blasts positive for CD117 and CD 33, negative for CD34, CD71, CD61, CD3 and PAX-5. -Cytogenetics: Normal -Genetrails: NPM1, DNMT3A, NRAS, TET2, FLT3 TKD mutations -06/30 peripheral blood flow: Recurrent acute myeloid leukemia (87% blasts) -08/01/17 BMBx: -Results: hypocellular marrow (5%) with 80% blasts -Cytogenetics: PENDING -Genetrails: PENDING Treatment -Chemotherapy regimen: Arlette + Maurizio-C, started 07/01/17 -Idarubicin 12 mg/m2 daily x 3 days -Cytarabine 1500 mg/m2 CI IV daily x 4 days. -Sorafenib authorization was denied, consider mylotarg for subsequent chemo cycles. -Chemo Day: 39 Patient is currently not a transplant candidate, but if it were to change, brother is a match Pt understands that without adequate control of her leukemia, that we cannot transpl ant her. Control of disease is critical for successful transplant course. #Pancytopenia secondary to chemotherapy: -See supportive care #Supportive Care: Growth factor: no growth factors required at this time Labs: Continue to check CBC daily- while in hospital Follow up CBC checks by Dr. Kemi ortega Transfusion parameters: -Transfuse PRBCs for HCT <21% if asymptomatic -Transfuse PPH for platelet count <10,000 sooner PRN s/s bleeding Cardiovascular: Prechemo TTE on 06/29/17 shows EF of 65-70% #Hx of Hypertension: continues on home anti-hypertensives -Amlodipine 10mg daily -Lisinopril 5mg daily Pulmonary: #COPD: continues on home inhalers -Spiriva 18mcg daily -Albuterol PRN #Multifocal PNA (see ID section) GI: #Abdominal pain: multifactorial, likely secondary to constipation, uncomplicated proctitis, and HSM. 06/29 CT AP showed uncomplicated proctitis, hepatosplenomegaly, and stool in rectum. Resolved. #Transaminitis with hyperbilirubinemia, possibly d/t idarubicin, AML with liver infiltrates or Zosyn. Monitor. #SWAPNIL, no emesis: controlled -Antiemetics PRN #GERD: worse on 07/23 -Maalox PRN -Omeprazole to 40mg daily #Diarrhea, likely due to chemotherapy: resolving. -Imodium PRN /Renal: #Overactive bladder: chronic issue -Oxybutynin CR 15mg daily Neuro/Psych: #Depression/anxiety -Cymbalta 90mg daily -Lorazepam PRN anxiety Endocrine: #Hypothyroidism: -Synthroid 37.5mcg daily Derm: #Rash: most consistent with drug rash. Derm consulted on 07/16 and diagnosed her with neutro philic eccrine hidradenitis most likely / to cytarabine. Rash resolved. -On face: triamcinolone 0.1% ointment BID x 3 days only. Then switch to hydrocortisone 2.5 % ointment BID, 07/17-07/23, 08/05- -On body: triamcinolone 0.1% ointment BID, 07/17-07/23 Infectious Disease: #Non-neutropenic fever, with septic picture 06/29 with tachycardia, tachypnea. Afebrile at th e time, however spiked a fever on 07/01. Localizing symptoms include pleuritic pain and abdomi nal pain. Bld cx NGTD. 06/29 CTA showed left pleural effusion and adjacent atelectasis, no PE or consolidations. 06/29 CT AP showed uncomplicated proctitis, HSM with scattered areas of li maria m AML infiltration, extramedullary hematopoiesis or microabscesses -s/p zosyn (06/29- 07/17) -s/p Levofloxacin (07/17-07/21) switched with neutropenic fevers/pseudomonas bacteremia #Neutropenic fever: noted on 07/20. Bld x 1 positive for pseudomonas. CXR neg. Replaced PI CC 07/25 -Zosyn (07/21- ), continue through discharge then transition back to levaquin #Pseudomonas bacteremia: bld cx x 1 from 07/20 positive. Resistant to cipro and meropenem b ut sensitive to zosyn. Repeat cx from 07/21 shows NGTD. PICC pulled 07/22 -ID following. -Has received full 14 day course of zosyn for bacteremia. #Multifocal PNA: With intermittent hypoxia, obtained CXR and then CT which shows ANGELLA and R LL PNA which has progressed rapidly compared to CXR on 07/25. Serum galactomannan negative. -Consulted ID and pulmonary and will have BAL on 07/31. -Continue zosyn and posaconazole funtiil time of dc, then changed to levaquin and posacona zole #Prophylaxis: Bacterial: as above Fungal: Posaconazole, level /=2.6 Viral: Acyclovir PCP: not indicated Fluid/Nutrition/Lytes: #Nutrition: Current diet -- Regular No Felisha's yogurt or Kefir. #Fluid: none with FVO and adequate PO intake #Lytes: -Continue to check chemistries daily- while in hospital -Replace per supportive care protocol Physical exam on day of discharge: Subjective: Happy she is getting to go home. Very appreciative of her care, appropriately sad. Objective: Last Vitals: BP 124/69 | Pulse 100 | Temp 36.6 C (97.9 F) | RR 20 | Ht 1.59 m (5' 2.6") | Wt 83.2 kg (183 lb 6.4 oz) | SpO2 94% | BMI 32.91 kg/(m^2) 24 Hour Vital Min/Max: Systolic (24hrs), Av , Min:111 , Max:127 Diastolic (24hrs), Av, Min:63, Max:74 Pulse Min: 89 Max: 111 Temp Min: 36.6 C (97.9 F) Max: 38.6 C (101.5 F) Resp Min: 14 Max: 26 SpO2 Min: 87 % Max: 96 % Intake/Output Summary (Last 24 hours) at 08/08/17 1434 Last data filed at 08/08/17 1133 Gross per 24 hour Intake 2571 ml Output 1205 ml Net 1366 ml Physical Exam: General: This is a female in no acute distress. Sitting up in chair. HEENT: PERRL. Sclerae anicteric. No lesions noted in mouth Skin: Erythema noted to face with edema. Chest: Clear to auscultation bilaterally. CV: RRR, no murmurs. Abdomen: S/NT/ND with NABS. No HSM appreciated. Extremities: Pulses strong and equal bilaterally. No c/c/2+ BLE edema NeuroPsych: Alert and oriented x 3. Grossly nonfocal exam. CVC: LUE PICC site without inflammation or induration. C/D/I Laboratory Results: Recent Labs 08/05/17235808/06/17232908/07/172356 NA 135* 135* 136 K 3.2* 3.4 3.7 CL 98 99 101 BICARB 30 30 25 BUN 4* 5* 5* CR 0.51* 0.54* 0.50* GLU 108* 100* 97 CA 8.2* 8.1* 8.1* AST 9 10 13 ALT 11 8 12 AP 145* 152* 162* TBILI 0.9 0.9 0.8 TP 5.6* 5.5* 5.5* ALB 2.1* 2.1* 2.1* Recent Labs 07/01/178 07/02/17233507/04/170 08/05/17235808/06/17232908/07/172356 WBC 17.35* < > 3.52 < > 0.55* < > <0.10* 0.13* 0.14* RBC 2.47* < > 2.09* < > 2.23* < > 2.60* 2.36* 2.85* HB 7.4* < > 6.4* < > 6.7* < > 7.4* 6.7* 8.3* HCT 22.8* < > 19.2* < > 19.9* < > 21.5* 19.6* 24.0* PLT 12* < > 16* < > 7* < > 27* 20* 12* NEUTROPERC 13.2* -- 25.7* -- 32.5* -- -- -- -- LYMPHPERC 6.1* -- 5.3* -- 5.0* -- -- -- -- MONOPERC 0.9* -- 0.9* -- 10.0* -- -- -- -- BASOPERC 0.0 -- 0.0 -- 0.0 -- -- -- -- EOSPERC 0.0* -- 0.0* -- 0.0* -- -- -- -- < > = values in this interval not displayed. Discharge Medications: Medication List START taking these medications hydrocortisone 2.5 % Oint Apply to rash on face two times daily. Replaces: hydrocortisone 2.5 % Crpe KLOR-CON M10 10 mEq Tbtq Generic drug: potassium chloride SR Take 2 tablets by mouth two times daily. levoFLOXacin 500 mg Tab Commonly known as: LEVAQUIN Take 1 tablet by mouth once daily. Indications: infection prevention NON-DROWSY ALLERGY 10 mg Tab Generic drug: loratadine Take 1 tablet by mouth once daily. posaconazole DR 100 mg Tbec Commonly known as: NOXAFIL Take 3 tablets by mouth once daily. Indications: ANTIFUNGAL PROPHY SORAfenib 200 mg Tab Commonly known as: NEXAVAR Take 2 tablets by mouth two times daily. CHANGE how you take these medications DULoxetine 30 mg Cpdr Commonly known as: CYMBALTA Take 3 capsules by mouth once daily. Indications: major depressive disorder What changed: how much to take when to take this CONTINUE taking these medications acyclovir 800 mg Tab Commonly known as: ZOVIRAX Take 1 tablet by mouth once daily. Indications: viral infection prevention amLODIPine 10 mg Tab Commonly known as: NORVASC Take 1 tablet by mouth once daily. Indications: hypertension levothyroxine 75 mcg Tab Take 0.5 tablets by mouth before breakfast. Indications: hypothyroidism lisinopril 5 mg Tab Commonly known as: PRINIVIL Take 1 tablet by mouth once daily. Indications: hypertension LORazepam 0.5 mg Tab Commonly known as: ATIVAN Take 1 tablet by mouth every eight hours as needed for Nausea/Vomiting. omeprazole 20 mg Cpdr Commonly known as: PRILOSEC Take 1 capsule by mouth before breakfast. Indications: gastroesophageal reflux disease ondansetron 4 mg Tab Commonly known as: ZOFRAN Take 1 to 2 tablets by mouth every twelve hours as needed for nausea/vomiting. oxybutynin CR 15 mg Tr24 Commonly known as: DITROPAN-XL Take 1 tablet by mouth once daily. Indications: Bladder Hyperactivity oxyCODONE (immediate release) 5 mg Tab Commonly known as: ROXICODONE Take 1 to 2 tablets by mouth every six hours as needed for moderate pain. prochlorperazine 5 mg Tab Commonly known as: COMPAZINE Take 1-2 tablets by mouth four times daily as needed for nausea/vomiting. Max dose 40 mg/da y. Indications: Cancer Chemotherapy-Induced Nausea and Vomiting tiotropium 18 mcg Cpdv Commonly known as: SPIRIVA Inhale 1 capsule once daily. Indications: Bronchospasm Prevention with COPD traZODone 50 mg Tab Commonly known as: DESYREL Take 0.5-1 tablets by mouth once daily at bedtime as needed. Indications: insomnia associat ed with depression VENTOLIN HFA 90 mcg/actuation Hfaa Generic drug: albuterol Inhale 1 puff by mouth every six hours as needed (shortness of breath, wheezing). Indicatio ns: Acute Asthma Attack STOP taking these medications hydrocortisone 2.5 % Crpe Commonly known as: PROCTOZONE Replaced by: hydrocortisone 2.5 % Oint midostaurin 25 mg Cap Commonly known as: RYDAPT Allergies: Allergies Allergen Reactions Morphine Rash and Facial Swelling Rash and facial swelling Opioids - Morphine Analogues Confusion Cefepime Rash Code Status: Full- pt wishes this until she feels poorly, but will need to be addressed aga in in future. POLST completed: no Additional Instructions: Condition on Discharge Stable Diet Regular Regular diet- There are no restrictions to your diet. You may eat or drink whatever you pr efer, though healthy food choices are recommended. Activity No activity restrictions Home Health Referral after Hospitalization Comments: I certify that this patient is under my care and that I, or Nurse Practitioner or Physician Counter Supply Worker working with me, had a face to face encounter with this patient on 08/06/2017 On behalf of Attending Physician: Pepe Chavis MD I am ordering and certify that the following services are medically necessary [facility] Evaluate and Treat I am ordering and certify that the following services are medically necessary [facility] Evaluate and Treat I certify that the patient is homebound based on the following clinical findings Post-hospi tyler weakness, decreased strength and endurance, and tires easily with minimal exertion Follow Up: Schedule the following appointment(s) when you get home Daniel Patterson MD. Go on 08/12/2017. Specialty: Hematology & Oncology Why: You have an appointment at 10:30am to see Dr. Patterson at [facility] . Further appointments will be arranged by you as necessary Contact information [facility] [address] [place] [address] SAURAV SMALL NP . Specialty: Nurse Practitioner Adult Health Contact information [facility] [address] [place] [address] Daniel Patterson MD . Specialty: Hematology & Oncology Contact information [facility] [address] [place] [address] Greater than 35 minutes spent arranging discharge, medications and follow up NORIS BANEGAS [address] [facility] Mailcode: [id number] [place], [place] [id number] in this encounter Discharge Instructions Cierra Adair RN - 08/05/2017in this encounter Medications at Time of Discharge [...] | + + +---------+---------+ + + | DULoxetine 30 mg | Take 3 capsules by | 90 | 2 | 08/07/19 | | | oral capsule,delayed | mouth once daily. | capsule | | 18 | | | | Indications: major | | | | | | release(DR/EC)Indica | depressive disorder | | | | | | tions: major | | | | | | | depressive disorder | | | | | | + + +---------+---------+ + + | hydrocortisone 2.5 | Apply to rash on | 20 g | 1 | 08/07/19 | | | % topical ointment | face two times | | | 18 | | | | daily. | | | | | + + +---------+---------+ + + | levoFLOXacin | Take 1 tablet by | 30 | 2 | 08/07/19 | | | (LEVAQUIN) 500 mg | mouth once daily. | tablet | | 18 | | | oral | Indications: | | | | | | tabletIndications: | infection prevention | | | | | | medical/surgical, | | | | | | | prophylaxis | | | | | | + [...] | + + +---------+---------+ + + | loratadine 10 mg | Take 1 tablet by | 30 | 2 | 08/07/19 | | | oral tablet | mouth once daily. | tablet | | 18 | | + + +---------+---------+ + + [...] | | | | | | | ([facility]) | | | | | | + [...] 2 tablets | 30 | 5 | 12/12/20 | | | oral tablet | by mouth every | tablet | | 17 | | | | twelve hours as | | | | | | | needed for | | | | | | | nausea/vomiting. | | | | | + + +---------+---------+ + + | oxybutynin CR 15 | Take 1 tablet by | 30 | 2 | 20 | | | mg oral tablet | [...] 2 tablets | 60 | 0 | //20 | | | (immediate release) | by mouth every six | tablet | | 17 | | | 5 mg oral tablet | hours as needed for | | | | | | | moderate pain. | | | | | + + +---------+---------+ + + | posaconazole DR | Take 3 tablets by | 90 | 0 | 08/07/19 | | | 100 mg oral | mouth once daily. | tablet | | 18 | | | tablet,delayed | Indications: | | | | | | release | ANTIFUNGAL PROPHY | | | | | | (DR/EC)Indications: | | | | | | | ANTIFUNGAL PROPHY | | | | | | + + +---------+---------+ + + | potassium chloride | Take 2 tablets by | 120 | 0 | 08/07/19 | | | SR 10 mEq oral | mouth two times | tablet | | 18 | | | tablet,ER | daily. | | | | | | particles/crystals | | | | | | + [...] | + + +---------+---------+ + + | SORAfenib 200 mg | Take 2 tablets by | 120 | 3 | 06/30/19 | | | oral tablet | mouth two times | tablet | | 18 | | | | daily. | | | | | + + [...] +---------+---------+ + + as of this encounter Progress Notes Pepe Chavis MD - 08/08/2017 12:30 PM PDTFormatting of this note may be different from jl cary. Hematologic Malignancies/Bone Marrow Transplant Inpatient Attending Progress Note: Hospital course summary: 51 yo woman with relapsed FLT3 ITD AML s/p arlette + cytarabine (intention to add sorafenib but denied). Course has been complicated by proctitis, high WBC, pseudomonas infx. Had BM biopsy after therapy. 08/01/17 Bone marrow aspirate, clot, core biopsy and peripheral blood: - Residual acute myeloid leukemia (80% blasts) involving a hypocell ular (5%) marrow - Pancytopenia We reviewed lack of response and inability to move to transplant with disease. Discussedw [place] SW and plan is to send home with home health and then have her transition to hospice so she can remain at home. I rounded today, 08/08/17, in conjunction with the Advanced Practice Provider. I saw the patient, reviewed the history and relevant studies and developed an assessment an d plan. Subjective/Objective: feeling pretty well. Had fevers last night but didn't know it. Was un deonna a number of blankets. Feels fine today. Ready to go home with brother. ROS otherwise negative Summary of day's events and plan: day 39 of arlette + cytarabine (intention to add sorafenib bu t denied) - Pseudomonas blood culture ->resistant to cipro and heber ->on zosyn x 2 weeks -ID feels Pseudomonas has been treated and can d/c on levaquin - BAL results negative for other etiology - WBC increased slightly - low grade fevers but clinically appears well - no further cytotoxic chemo for disease - tried to obtain palliative sorafenib but not approved - cont acyclovir and posa ppx at discharge - plan to send home with home healthand then transition to hospice - reviewed plan with local oncologist Dr. Patterson - d/c home today Please see the Advanced Practice Provider documentation from today for the details regardin g the assessment and plan. Active Problems: Patients Hospital Problem List: Active Hospital Problems 1) COPD (chronic obstructive pulmonary disease) (HCC) 2) Anxiety and depression 3) Acute myeloid leukemia not having achieved remission (HCC) 4) Learning disability 5) Rash of face 6) Neutropenic fever (HCC) 7) Pancytopenia due to antineoplastic chemotherapy (HCC) 8) Transaminitis 9) Hepatosplenomegaly 10) Pleural effusion 11) Proctitis 12) Protein-calorie malnutrition, mild (HCC) 13) Immunocompromised state (HCC) 14) Chemotherapy induced diarrhea Ht 1.59 m (5' 2.6"), Wt 83.2 kg (183 lb 6.4 oz), BP 124/69, Pulse 100, Temperature 36.6 C (97.9 F), RR 20, SpO2 94%, BMI 32.91 kg/(m^2). Focused Exam: nad, facial erythema at baseline, op clear, cta b, rrr no m/r/g, soft abd, tr edema Intake/Output Summary (Last 24 hours) at 08/08/17 1521 Last data filed at 08/08/17 1133 Gross per 24 hour Intake 2571 ml Output 1205 ml Net 1366 ml Recent Labs 08/05/17 2359 08/06/17 2330 08/07/17 2357 NA 135* 135* 136 K 3.2* 3.4 3.7 CL 98 99 101 BICARB 30 30 25 BUN 4* 5* 5* CR 0.51* 0.54* 0.50* GLU 108* 100* 97 CA 8.2* 8.1* 8.1* AST 9 10 13 ALT 11 8 12 AP 145* 152* 162* TBILI 0.9 0.9 0.8 TP 5.6* 5.5* 5.5* ALB 2.1* 2.1* 2.1* Recent Labs 07/01/17 2318 07/02/17 2336 07/04/17 0040 08/05/17235808/06/17232908/07/172356 WBC 17.35* < > 3.52 < > 0.55* < > <0.10* 0.13* 0.14* RBC 2.47* < > 2.09* < > 2.23* < > 2.60* 2.36* 2.85* HB 7.4* < > 6.4* < > 6.7* < > 7.4* 6.7* 8.3* HCT 22.8* < > 19.2* < > 19.9* < > 21.5* 19.6* 24.0* PLT 12* < > 16* < > 7* < > 27* 20* 12* NEUTROPERC 13.2* -- 25.7* -- 32.5* -- -- -- -- LYMPHPERC 6.1* -- 5.3* -- 5.0* -- -- -- -- MONOPERC 0.9* -- 0.9* -- 10.0* -- -- -- -- BASOPERC 0.0 -- 0.0 -- 0.0 -- -- -- -- EOSPERC 0.0* -- 0.0* -- 0.0* -- -- -- -- < > = values in this interval not displayed. I spent 35 minutes including chart review and discussion with the NICOLE. Greater than >50% of time spent in direct counseling and coordination of care including discussion of discharge, fevers, abx, monitoring, home health, and follow up locally. Noris Banegas ACNP - 08/07/2017 5:44 PM PDTFormatting of this note may be different from the original. Daily NICOLE Note - Chemotherapy Admit [facility] for Hematologic Malignancies Attending: Pepe Chavis MD [facility] Physician: Pepe Chavis MD Local Oncologist: Daniel Patterson MD PCP: Saurav Small NP Date of Admission: 06/28/17 Hematologic Malignancy: AML ID: 51 yo woman with second relapse AML, FLT3 ITD admitted for evaluation and treatment. Hx COPD, Depression/PTSD, Disorder of Thyroid, HTN, Insomnia 24 Hour Events/Current Daily Plan: -Relapsed AML, Flt3: currently Arlette + modified Maurizio-C, currently day 38. BMBX on 08/01 shows hy pocellular marrow (5%) with 80% blasts. -Not a candidate for additional aggressive chemo. -Compassionate use sorafenib application submitted on 08/05. -Plan to discharge home with HH and supportive care including transfusion support locally through Dr. Patterson's office in [place]. Dr. Chavis spoke with Dr. Patterson 08/07. -Pancytopenia secondary to chemotherapy: standard transfusion parameters. tx 1 PRBC today. -Neutropenic fever: noted on 07/20, restarted zosyn. Bld cx x 1 07/20 positive for pseudomon as (see below). -Pseudomonas bacteremia: bld cx x 1 from 07/20 positive. Cleared as of 07/21. Resistant to ci pro and meropenem. PICC pulled 07/22, replaced 07/25 with negative cultures. ID following. -Completed 14 day course of zosyn on 08/04 but plan to continue zosyn until discharge on 07/28 2 then plan to restart levaquin. -Multifocal PNA with ANGELLA and RML large consolidations: developing opacitis on CXR 07/25 and has since evolved. Serum galacto negative. Underwent BAL on 07/31, results neg with the except ion of broad range PCR which is pending. -Continue zosyn through discharge. -Supplemental O2 PRN, currently off oxygen most of the time. Will ambulate and see is sat drops. -Rash, facial: worsening, previously rash felt to be related to rosacea. Restarted hydroco rtisone cream BID. -FVO: face and leg edema noted. Slowly improving -Hypokalemia: Requires potassium repletion today. Continue KDur 20 mEq BID, increased on . Subjective: ready to leave tomorrow. Brother coming into town to take her home. Objective: Last Vitals: BP 126/67 | Pulse 93 | Temp 36.7 C (98.1 F) | RR 14 | Ht 1.59 m (5' 2.6") | Wt 83.2 kg (183 lb 6.4 oz) | SpO2 94% | BMI 32.91 kg/(m^2) 24 Hour Vital Min/Max: Systolic (24hrs), Av , Min:94 , Max:127 Diastolic (24hrs), Av, Min:50, Max:88 Pulse Min: 93 Max: 111 Temp Min: 36.7 C (98.1 F) Max: 37 C (98.6 F) Resp Min: 14 Max: 16 SpO2 Min: 89 % Max: 98 % Intake/Output Summary (Last 24 hours) at 08/07/17 1744 Last data filed at 08/07/17 1700 Gross per 24 hour Intake 2473.33 ml Output 1200 ml Net 1273.33 ml Physical Exam: General: This is a female in no acute distress. Sitting up in chair. HEENT: PERRL. Sclerae anicteric. No lesions noted in mouth Skin: Erythema noted to face with edema. Chest: Clear to auscultation bilaterally. CV: RRR, no murmurs. Abdomen: S/NT/ND with NABS. No HSM appreciated. Extremities: Pulses strong and equal bilaterally. No c/c/2+ BLE edema NeuroPsych: Alert and oriented x 3. Grossly nonfocal exam. CVC: LUE PICC site without inflammation or induration. C/D/I Laboratory Results: Recent Labs 08/04/17 2330 08/05/17 0655 08/05/17 2359 08/06/17 2330 NA 137 -- 135* 135* K 3.3* 3.7 3.2* 3.4 CL 100 -- 98 99 BICARB 29 -- 30 30 BUN 3* -- 4* 5* CR 0.47* -- 0.51* 0.54* GLU 103* -- 108* 100* CA 7.7* -- 8.2* 8.1* AST 10 -- 9 10 ALT 8 -- 11 8 AP 139* -- 145* 152* TBILI 0.9 -- 0.9 0.9 TP 5.3* -- 5.6* 5.5* ALB 2.0* -- 2.1* 2.1* Recent Labs 07/01/17 2318 07/02/17 2336 07/04/17 0040 08/04/17 2330 08/05/17 2359 08/06/17 2330 WBC 17.35* < > 3.52 < > 0.55* < > <0.10* <0.10* 0.13* RBC 2.47* < > 2.09* < > 2.23* < > 2.80* 2.60* 2.36* HB 7.4* < > 6.4* < > 6.7* < > 8.2* 7.4* 6.7* HCT 22.8* < > 19.2* < > 19.9* < > 23.0* 21.5* 19.6* PLT 12* < > 16* < > 7* < > 19* 27* 20* NEUTROPERC 13.2* -- 25.7* -- 32.5* -- -- -- -- LYMPHPERC 6.1* -- 5.3* -- 5.0* -- -- -- -- MONOPERC 0.9* -- 0.9* -- 10.0* -- -- -- -- BASOPERC 0.0 -- 0.0 -- 0.0 -- -- -- -- EOSPERC 0.0* -- 0.0* -- 0.0* -- -- -- -- < > = values in this interval not displayed. Meds: Reviewed on rounds, see current MAR for medication list SUMMARY OF PATIENT'S HOSPITALIZATION History of Present Illness: (from H&P) Rhea Hutchison is a 51-year-old woman with a history of COPD, depression, hypothyroidism, and AML diagnosed in late 2015 after she presented with pleuritic chest pain and shortness of br eath in addition to profound leukocytosis. Her disease was initially managed with 7+3+ Dasa tinib, course gated by neutropenic fevers, C. difficile, nodular groundglass opacities sudeep rning for invasive fungal infection (although galactomannan negative), treated with Isavucon azole -> Voriconazole. She was reinduced with Cytarabine and entered CR1. She subsequently relapsed in February 2017 started on FLAG-Arlette salvage-->CR2. Her course was subsequently c omplicated by bacterial pneumonia, otherwise recovered well Patient presents as a transfer from outside hospital ([facility]) where she pres ented with body aches and profound fatigue, anemic with new leukocytosis. Repeat bone marro w biopsy concerning for relapsed AML (blasts positive for CD 117, CD33). In the interim sin ce her initial admission, the patient endorses development of new new acute onset pleuritic left-sided chest pain. She states that this chest pain is stabbing, 5-6 out of 10 in intens ity. It is accompanied by a degree of resting dyspnea. Patient also endorses nagging cough productive of white/yellow sputum of approximately 1 week's duration. She denies constitut ional symptoms including fevers, chills, night sweats. She denies new palpitations. She de nies new oral lesions or odynophagia. She does endorse a degree of ongoing nausea but state s that that is baseline for her. She denies emesis. Endorses a degree of constipation. De nies deep new complaints. She does endorse a developing petechial rash over bilateral lo wer extremities, as well as her upper back. She denies new adenopathy. Hospitalization History: Hematology: #Relapsed Flt3 AML: Had salvage FLAG-Arlette + Midostaurin and Azacitidine bridge while awaitin g SCT now with relapse. Pertinent Diagnostics: -BM Bx 06/21/17 ([facility] [id number]): -Results: 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 myelogenous leukemia (60%); Blasts positive for CD117 and CD 33, negative for CD34, CD71, CD61, CD3 and PAX-5. -Cytogenetics: Normal -Genetrails: NPM1, DNMT3A, NRAS, TET2, FLT3 TKD mutations -06/30 peripheral blood flow: Recurrent acute myeloid leukemia (87% blasts) -08/01/17 BMBx: -Results: hypocellular marrow (5%) with 80% blasts -Cytogenetics: PENDING -Genetrails: PENDING Treatment -Chemotherapy regimen: Arlette + Maurizio-C, started 07/01/17 -Idarubicin 12 mg/m2 daily x 3 days -Cytarabine 1500 mg/m2 CI IV daily x 4 days. -Sorafenib authorization was denied, consider mylotarg for subsequent chemo cycles. -Chemo Day: 38 Patient is currently not a transplant candidate, but if it were to change, brother is a match #Pancytopenia secondary to chemotherapy: -See supportive care #Supportive Care: Growth factor: no growth factors required at this time Labs: Continue to check CBC daily Transfusion parameters: -Transfuse PRBCs for HCT <21% if asymptomatic -Transfuse PPH for platelet count <10,000 sooner PRN s/s bleeding Cardiovascular: Prechemo TTE on 06/29/17 shows EF of 65-70% #Hx of Hypertension: continues on home anti-hypertensives -Amlodipine 10mg daily -Lisinopril 5mg daily Pulmonary: #COPD: continues on home inhalers -Spiriva 18mcg daily -Albuterol PRN #Multifocal PNA (see ID section) GI: #Abdominal pain: multifactorial, likely secondary to constipation, uncomplicated proctitis, and HSM. 06/29 CT AP showed uncomplicated proctitis, hepatosplenomegaly, and stool in rectum. Resolved. #Transaminitis with hyperbilirubinemia, possibly d/t idarubicin, AML with liver infiltrates or Zosyn. Monitor. #SWAPNIL, no emesis: controlled -Antiemetics PRN #GERD: worse on 07/23 -Maalox PRN -Omeprazole to 40mg daily #Diarrhea, likely due to chemotherapy: resolving. -Imodium PRN /Renal: #Overactive bladder: chronic issue -Oxybutynin CR 15mg daily Neuro/Psych: #Depression/anxiety -Cymbalta 90mg daily -Lorazepam PRN anxiety Endocrine: #Hypothyroidism: -Synthroid 37.5mcg daily Derm: #Rash: most consistent with drug rash. 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 Rash resolved. -On face: triamcinolone 0.1% ointment BID x 3 days only. Then switch to hydrocortisone 2.5 % ointment BID, 07/17-07/23, 08/05- -On body: triamcinolone 0.1% ointment BID, 07/17-07/23 Infectious Disease: #Non-neutropenic fever, with septic picture 06/29 with tachycardia, tachypnea. Afebrile at th e time, however spiked a fever on 07/01. Localizing symptoms include pleuritic pain and abdomi nal pain. Bld cx NGTD. 06/29 CTA showed left pleural effusion and adjacent atelectasis, no PE or consolidations. 06/29 CT AP showed uncomplicated proctitis, HSM with scattered areas of li maria m AML infiltration, extramedullary hematopoiesis or microabscesses -s/p zosyn (06/29- 07/17) -s/p Levofloxacin (07/17-07/21) switched with neutropenic fevers/pseudomonas bacteremia #Neutropenic fever: noted on 07/20. Bld x 1 positive for pseudomonas. CXR neg. Replaced PI CC 07/25 -Zosyn (07/21- ), continue through discharge then transition back to levaquin -Plan to switch Zosyn to Zerbaxa + Ambisome, given lung lesions, if decompensates #Pseudomonas bacteremia: bld cx x 1 from 07/20 positive. Resistant to cipro and meropenem b ut sensitive to zosyn. Repeat cx from 07/21 shows NGTD. PICC pulled 07/22 -ID following. -Has received full 14 day course of zosyn for bacteremia. #Multifocal PNA: With intermittent hypoxia, obtained CXR and then CT which shows ANGELLA and R LL PNA which has progressed rapidly compared to CXR on 07/25. Serum galactomannan negative. -Consulted ID and pulmonary and will have BAL on 07/31. -Continue zosyn and posaconazole for now. #Prophylaxis: Bacterial: as above Fungal: Posaconazole, level 07/30=2.6 Viral: Acyclovir PCP: not indicated Fluid/Nutrition/Lytes: #Nutrition: Current diet -- Regular No Felisha's yogurt or Kefir. #Fluid: none with FVO and adequate PO intake #Lytes: -Continue to check chemistries daily -Replace per supportive care protocol Disposition: Anticipate discharge on Maribel 08/08 with supportive management locally. No furt her aggressive chemo will be offered. [facility] [id number] [facility] Mailcode: [email or web address] [place] [address] Pepe Chavis MD - 08/07/2017 12:57 PM PDTFormatting of this note may be different from e original. Hematologic Malignancies/Bone Marrow Transplant Inpatient Attending Progress Note: Hospital course summary: 51 yo woman with relapsed FLT3 ITD AML s/p arlette + cytarabine (intention to add sorafenib but denied). Course has been complicated by proctitis, high WBC, pseudomonas infx. Had BM biopsy after therapy. 08/01/17 Bone marrow aspirate, clot, core biopsy and peripheral blood: - Residual acute myeloid leukemia (80% blasts) involving a hypocell ular (5%) marrow - Pancytopenia We reviewed lack of response and inability to move to transplant with disease. Discussed wi and plan is to send home with home health and then have her transition to hospice so s he can remain at home. I rounded today, 08/07/17, in conjunction with the Advanced Practice Provider. I saw the patient, reviewed the history and relevant studies and developed an assessment an d plan. Subjective/Objective: feeling good today. No problems breathing. Legs less puffy today. ROS otherwise negative Summary of day's events and plan: day 38 of arlette + cytarabine (intention to add sorafenib bu t denied) - Pseudomonas from blood culture ->resistant to cipro and heber ->on zosyn ->ID feels this has been treated and can d/c on levaquin - concern for possible fungal PNA but no further fevers or issues -> BAL negative thus far -> PCR results negative as well - WBC increased slightly - no further cytotoxic chemo for disease - trying to obtain palliative sorafenib - cont acyclovir and posa ppx at discharge - plan to send home with home health and then transition to hospice - tentative discharge on Please see the Advanced Practice Provider documentation from today for the details regardin g the assessment and plan. Active Problems: Patients Hospital Problem List: Active Hospital Problems 1) COPD (chronic obstructive pulmonary disease) (HCC) 2) Anxiety and depression 3) Acute myeloid leukemia not having achieved remission (HCC) 4) Learning disability 5) Rash of face 6) Neutropenic fever (HCC) 7) Pancytopenia due to antineoplastic chemotherapy (HCC) 8) Transaminitis 9) Hepatosplenomegaly 10) Pleural effusion 11) Proctitis 12) Protein-calorie malnutrition, mild (HCC) 13) Immunocompromised state (HCC) 14) Chemotherapy induced diarrhea Ht 1.59 m (5' 2.6"), Wt 83.2 kg (183 lb 6.4 oz), BP 127/63, Pulse 102, Temperature 36.9 C (98.4 F), RR 16, SpO2 95%, BMI 32.91 kg/(m^2). Focused Exam: appears well, op clear, cta b, rrr no m/r/g, soft abd, tr edema Intake/Output Summary (Last 24 hours) at 08/07/17 1257 Last data filed at 08/07/17 0655 Gross per 24 hour Intake 1630 ml Output 2400 ml Net -770 ml Recent Labs 08/04/17232908/05/17 0655 08/05/17235808/06/172329 NA 137 -- 135* 135* K 3.3* 3.7 3.2* 3.4 CL 100 -- 98 99 BICARB 29 -- 30 30 BUN 3* -- 4* 5* CR 0.47* -- 0.51* 0.54* GLU 103* -- 108* 100* CA 7.7* -- 8.2* 8.1* AST 10 -- 9 10 ALT 8 -- 11 8 AP 139* -- 145* 152* TBILI 0.9 -- 0.9 0.9 TP 5.3* -- 5.6* 5.5* ALB 2.0* -- 2.1* 2.1* Recent Labs 07/01/17 2318 07/02/176 07/04/17 0040 08/04/17 23308/05/17235808/06/17 233 WBC 17.35* < > 3.52 < > 0.55* < > <0.10* <0.10* 0.13* RBC 2.47* < > 2.09* < > 2.23* < > 2.80* 2.60* 2.36* HB 7.4* < > 6.4* < > 6.7* < > 8.2* 7.4* 6.7* HCT 22.8* < > 19.2* < > 19.9* < > 23.0* 21.5* 19.6* PLT 12* < > 16* < > 7* < > 19* 27* 20* NEUTROPERC 13.2* -- 25.7* -- 32.5* -- -- -- -- LYMPHPERC 6.1* -- 5.3* -- 5.0* -- -- -- -- MONOPERC 0.9* -- 0.9* -- 10.0* -- -- -- -- BASOPERC 0.0 -- 0.0 -- 0.0 -- -- -- -- EOSPERC 0.0* -- 0.0* -- 0.0* -- -- -- -- < > = values in this interval not displayed. I spent 35 minutes including chart review and discussion with the NICOLE. Greater than >50% of time spent in direct counseling and coordination of care including discussion of chemo, joaquín telets, infx, abx, oxygen, walking, and discharge plan. Pepe Chavis MD - 08/06/2017 5:03 PM PDTFormatting of this note may be different from jl cary. Hematologic Malignancies/Bone Marrow Transplant Inpatient Attending Progress Note: Hospital course summary: 51 yo woman with relapsed FLT3 ITD AML s/p arlette + cytarabine (intention to add sorafenib but denied). Course has been complicated by proctitis, high WBC, pseudomonas infx. Had BM biopsy after therapy. 08/01/17 Bone marrow aspirate, clot, core biopsy and peripheral blood: - Residual acute myeloid leukemia (80% blasts) involving a hypocell ular (5%) marrow - Pancytopenia We reviewed lack of response and inability to move to transplant with disease. Discussed wi MARKUS and plan is to send home with home health and then have her transition to hospice so s he can remain at home. I rounded today, 08/06/17, in conjunction with the Advanced Practice Provider. I saw the patient, reviewed the history and relevant studies and developed an assessment an d plan. Subjective/Objective: feeling pretty good. No issues with breathing. Appetite pretty good. ROS otherwise negative Summary of day's events and plan: day 37 of arlette + cytarabine (intention to add sorafenib bu t denied) - Pseudomonas from blood culture ->resistant to cipro and heber ->on zosyn ->ID feels this has been treated and can d/c on levaquin - concern for possible fungal PNA but no further fevers or issues -> BAL negative thus far -> PCR results pending - no further chemo for disease - trying to obtain palliative sorafenib - acyclovir and posa ppx - edema -> more lasix today - plan to send home with home health and then transition to hospice - tentative discharge on Please see the Advanced Practice Provider documentation from today for the details regardin g the assessment and plan. Active Problems: Patients Hospital Problem List: Active Hospital Problems 1) COPD (chronic obstructive pulmonary disease) (HCC) 2) Anxiety and depression 3) Acute myeloid leukemia not having achieved remission (HCC) 4) Learning disability 5) Rash of face 6) Neutropenic fever (HCC) 7) Pancytopenia due to antineoplastic chemotherapy (HCC) 8) Transaminitis 9) Hepatosplenomegaly 10) Pleural effusion 11) Proctitis 12) Protein-calorie malnutrition, mild (HCC) 13) Immunocompromised state (HCC) 14) Chemotherapy induced diarrhea Ht 1.59 m (5' 2.6"), Wt 83.2 kg (183 lb 6.4 oz), BP 121/62, Pulse 94, Temperature 36.6 C (97.9 F), RR 16, SpO2 96%, BMI 32.91 kg/(m^2). Focused Exam: NAD, facial erythema at baseline, op clear, cta b, rrr no m/r/g, soft abd, 1+ LE edema Intake/Output Summary (Last 24 hours) at 08/06/17 1703 Last data filed at 08/06/17 1600 Gross per 24 hour Intake 2680 ml Output 1638 ml Net 1042 ml Recent Labs 08/03/17 2346 08/04/17 2330 08/05/17 0655 08/05/17 2359 NA 136 -- 137 -- 135* K 2.8* < > 3.3* 3.7 3.2* CL 97 -- 100 -- 98 BICARB 30 -- 29 -- 30 BUN 3* -- 3* -- 4* CR 0.48* -- 0.47* -- 0.51* GLU 113* -- 103* -- 108* CA 7.6* -- 7.7* -- 8.2* AST 9 -- 10 -- 9 ALT 9 -- 8 -- 11 AP 130* -- 139* -- 145* TBILI 0.8 -- 0.9 -- 0.9 TP 5.3* -- 5.3* -- 5.6* ALB 2.0* -- 2.0* -- 2.1* < > = values in this interval not displayed. Recent Labs 07/01/17 2318 07/02/17 2336 07/04/17 0040 08/03/17 2346 08/04/17 2330 08/05/17 2359 WBC 17.35* < > 3.52 < > 0.55* < > <0.10* <0.10* <0.10* RBC 2.47* < > 2.09* < > 2.23* < > 2.53* 2.80* 2.60* HB 7.4* < > 6.4* < > 6.7* < > 7.3* 8.2* 7.4* HCT 22.8* < > 19.2* < > 19.9* < > 20.4* 23.0* 21.5* PLT 12* < > 16* < > 7* < > 14* 19* 27* NEUTROPERC 13.2* -- 25.7* -- 32.5* -- -- -- -- LYMPHPERC 6.1* -- 5.3* -- 5.0* -- -- -- -- MONOPERC 0.9* -- 0.9* -- 10.0* -- -- -- -- BASOPERC 0.0 -- 0.0 -- 0.0 -- -- -- -- EOSPERC 0.0* -- 0.0* -- 0.0* -- -- -- -- < > = values in this interval not displayed. I spent 35 minutes including chart review and discussion with the NICOLE. Greater than >50% of time spent in direct counseling and coordination of care including discussion of home healt h, transfusions, plan for discharge, infx, abx, coordinating with family and plan. Shayna Gardiner PA - 08/06/2017 3:07 PM PDTFormatting of this note may be different fro m the original. Daily NICOLE Note - Chemotherapy Admit Center for Hematologic Malignancies Attending: Pepe Chavis MD [facility] Physician: Pepe Chavis MD Local Oncologist: Daniel Patterson MD PCP: Saurav Small NP Date of Admission: 06/28/17 Hematologic Malignancy: AML ID: 51 yo woman with second relapse AML, FLT3 ITD admitted for evaluation and treatment. Hx COPD, Depression/PTSD, Disorder of Thyroid, HTN, Insomnia 24 Hour Events/Current Daily Plan: -Relapsed AML, Flt3: currently Arlette + modified Maurizio-C, currently day 37. BMBX on 08/01 shows hy pocellular marrow (5%) with 80% blasts. -Not a candidate for additional aggressive chemo. -Compassionate use sorafenib application submitted on 08/05. -Plan to discharge home with HH and supportive care including transfusion support locally through Dr. Patterson's office in [place]. -Pancytopenia secondary to chemotherapy: standard transfusion parameters. There is no bloo d product support required at this time. -Neutropenic fever: noted on 07/20, restarted zosyn. Bld cx x 1 07/20 positive for pseudomon as (see below). -Pseudomonas bacteremia: bld cx x 1 from 07/20 positive. Cleared as of 07/21. Resistant to ci pro and meropenem. PICC pulled 07/22, replaced 07/25 with negative cultures. ID following. -Completed 14 day course of zosyn on 08/04 but plan to continue zosyn until discharge on 07/28 2 then plan to restart levaquin. -Multifocal PNA with ANGELLA and RML large consolidations: developing opacitis on CXR 07/25 and has since evolved. Serum galacto negative. Underwent BAL on 07/31, results neg with the except ion of broad range PCR which is pending. -Continue zosyn through discharge. -Supplemental O2 PRN, currently using 1.5L NC -Rash, facial: worsening, previously rash felt to be related to rosacea. Restarted hydroco rtisone cream BID. -FVO: face and leg edema noted. Give lasix 40 mg IV x 1 today (20 mg has been ineffective) . -Hypokalemia: Requires potassium repletion today. Continue KDur 20 mEq BID, increased on . Subjective: Feeling ok today. Would like more lasix today. Objective: Last Vitals: BP 124/64 | Pulse 100 | Temp 37 C (98.6 F) | RR 16 | Ht 1.59 m (5' 2.6") | Wt 83.2 kg (183 lb 6.4 oz) | SpO2 94% | BMI 32.91 kg/(m^2) 24 Hour Vital Min/Max: Systolic (24hrs), Av , Min:115 , Max:140 Diastolic (24hrs), Av, Min:54, Max:72 Pulse Min: 93 Max: 108 Temp Min: 36.7 C (98.1 F) Max: 37.1 C (98.8 F) Resp Min: 16 Max: 16 SpO2 Min: 90 % Max: 94 % Intake/Output Summary (Last 24 hours) at 08/06/17 1507 Last data filed at 08/06/17 1000 Gross per 24 hour Intake 1420 ml Output 630 ml Net 790 ml Physical Exam: General: This is a female in no acute distress. Sitting up in chair. HEENT: PERRL. Sclerae anicteric. No lesions noted in mouth Skin: Erythema noted to face with edema. Chest: Clear to auscultation bilaterally. CV: RRR, no murmurs. Abdomen: S/NT/ND with NABS. No HSM appreciated. Extremities: Pulses strong and equal bilaterally. No c/c/2+ BLE edema NeuroPsych: Alert and oriented x 3. Grossly nonfocal exam. CVC: LUE PICC site without inflammation or induration. C/D/I Laboratory Results: Recent Labs 08/03/17 2346 08/04/17 2330 08/05/17 0655 08/05/17 2359 NA 136 -- 137 -- 135* K 2.8* < > 3.3* 3.7 3.2* CL 97 -- 100 -- 98 BICARB 30 -- 29 -- 30 BUN 3* -- 3* -- 4* CR 0.48* -- 0.47* -- 0.51* GLU 113* -- 103* -- 108* CA 7.6* -- 7.7* -- 8.2* AST 9 -- 10 -- 9 ALT 9 -- 8 -- 11 AP 130* -- 139* -- 145* TBILI 0.8 -- 0.9 -- 0.9 TP 5.3* -- 5.3* -- 5.6* ALB 2.0* -- 2.0* -- 2.1* < > = values in this interval not displayed. Recent Labs 07/01/17 2318 07/02/17 2336 07/04/17 0040 08/03/17 2346 08/04/17 2330 08/05/17 2359 WBC 17.35* < > 3.52 < > 0.55* < > <0.10* <0.10* <0.10* RBC 2.47* < > 2.09* < > 2.23* < > 2.53* 2.80* 2.60* HB 7.4* < > 6.4* < > 6.7* < > 7.3* 8.2* 7.4* HCT 22.8* < > 19.2* < > 19.9* < > 20.4* 23.0* 21.5* PLT 12* < > 16* < > 7* < > 14* 19* 27* NEUTROPERC 13.2* -- 25.7* -- 32.5* -- -- -- -- LYMPHPERC 6.1* -- 5.3* -- 5.0* -- -- -- -- MONOPERC 0.9* -- 0.9* -- 10.0* -- -- -- -- BASOPERC 0.0 -- 0.0 -- 0.0 -- -- -- -- EOSPERC 0.0* -- 0.0* -- 0.0* -- -- -- -- < > = values in this interval not displayed. Meds: Reviewed on rounds, see current MAR for medication list SUMMARY OF PATIENT'S HOSPITALIZATION History of Present Illness: (from H&P) Rhea Hutchison is a 51-year-old woman with a history of COPD, depression, hypothyroidism, and AML diagnosed in late 2015 after she presented with pleuritic chest pain and shortness of br eath in addition to profound leukocytosis. Her disease was initially managed with 7+3+ Dasa tinib, course gated by neutropenic fevers, C. difficile, nodular groundglass opacities sudeep rning for invasive fungal infection (although galactomannan negative), treated with Isavucon azole -> Voriconazole. She was reinduced with Cytarabine and entered CR1. She subsequently relapsed in February 2017 started on FLAG-Arlette salvage-->CR2. Her course was subsequently c omplicated by bacterial pneumonia, otherwise recovered well Patient presents as a transfer from outside hospital ([facility]) where she pres ented with body aches and profound fatigue, anemic with new leukocytosis. Repeat bone marro w biopsy concerning for relapsed AML (blasts positive for CD 117, CD33). In the interim sin ce her initial admission, the patient endorses development of new new acute onset pleuritic left-sided chest pain. She states that this chest pain is stabbing, 5-6 out of 10 in intens ity. It is accompanied by a degree of resting dyspnea. Patient also endorses nagging cough productive of white/yellow sputum of approximately 1 week's duration. She denies constitut ional symptoms including fevers, chills, night sweats. She denies new palpitations. She de nies new oral lesions or odynophagia. She does endorse a degree of ongoing nausea but state s that that is baseline for her. She denies emesis. Endorses a degree of constipation. De nies deep new complaints. She does endorse a developing petechial rash over bilateral lo wer extremities, as well as her upper back. She denies new adenopathy. Hospitalization History: Hematology: #Relapsed Flt3 AML: Had salvage FLAG-Arlette + Midostaurin and Azacitidine bridge while awaitin g SCT now with relapse. Pertinent Diagnostics: -BM Bx 06/21/17 ([facility] [id number]): -Results: 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 myelogenous leukemia (60%); Blasts positive for CD117 and CD 33, negative for CD34, CD71, CD61, CD3 and PAX-5. -Cytogenetics: Normal -Genetrails: NPM1, DNMT3A, NRAS, TET2, FLT3 TKD mutations -06/30 peripheral blood flow: Recurrent acute myeloid leukemia (87% blasts) -08/01/17 BMBx: -Results: hypocellular marrow (5%) with 80% blasts -Cytogenetics: PENDING -Genetrails: PENDING Treatment -Chemotherapy regimen: Arlette + Maurizio-C, started 07/01/17 -Idarubicin 12 mg/m2 daily x 3 days -Cytarabine 1500 mg/m2 CI IV daily x 4 days. -Sorafenib authorization was denied, consider mylotarg for subsequent chemo cycles. -Chemo Day: 37 Patient is currently not a transplant candidate, but if it were to change, brother is a match #Pancytopenia secondary to chemotherapy: -See supportive care #Supportive Care: Growth factor: no growth factors required at this time Labs: Continue to check CBC daily Transfusion parameters: -Transfuse PRBCs for HCT <21% if asymptomatic -Transfuse PPH for platelet count <10,000 sooner PRN s/s bleeding Cardiovascular: Prechemo TTE on 06/29/17 shows EF of 65-70% #Hx of Hypertension: continues on home anti-hypertensives -Amlodipine 10mg daily -Lisinopril 5mg daily Pulmonary: #COPD: continues on home inhalers -Spiriva 18mcg daily -Albuterol PRN #Multifocal PNA (see ID section) GI: #Abdominal pain: multifactorial, likely secondary to constipation, uncomplicated proctitis, and HSM. 06/29 CT AP showed uncomplicated proctitis, hepatosplenomegaly, and stool in rectum. Resolved. #Transaminitis with hyperbilirubinemia, possibly d/t idarubicin, AML with liver infiltrates or Zosyn. Monitor. #SWAPNIL, no emesis: controlled -Antiemetics PRN #GERD: worse on 07/23 -Maalox PRN -Omeprazole to 40mg daily #Diarrhea, likely due to chemotherapy: resolving. -Imodium PRN /Renal: #Overactive bladder: chronic issue -Oxybutynin CR 15mg daily Neuro/Psych: #Depression/anxiety -Cymbalta 90mg daily -Lorazepam PRN anxiety Endocrine: #Hypothyroidism: -Synthroid 37.5mcg daily Derm: #Rash: most consistent with drug rash. 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 Rash resolved. -On face: triamcinolone 0.1% ointment BID x 3 days only. Then switch to hydrocortisone 2.5 % ointment BID, 07/17-07/23, 08/05- -On body: triamcinolone 0.1% ointment BID, 07/17-07/23 Infectious Disease: #Non-neutropenic fever, with septic picture 06/29 with tachycardia, tachypnea. Afebrile at th e time, however spiked a fever on 07/01. Localizing symptoms include pleuritic pain and abdomi nal pain. Bld cx NGTD. 06/29 CTA showed left pleural effusion and adjacent atelectasis, no PE or consolidations. 06/29 CT AP showed uncomplicated proctitis, HSM with scattered areas of li maria m AML infiltration, extramedullary hematopoiesis or microabscesses -s/p zosyn (06/29- 07/17) -s/p Levofloxacin (07/17-07/21) switched with neutropenic fevers/pseudomonas bacteremia #Neutropenic fever: noted on 07/20. Bld x 1 positive for pseudomonas. CXR neg. Replaced PI CC 07/25 -Zosyn (07/21- ), continue through discharge then transition back to levaquin -Plan to switch Zosyn to Zerbaxa + Ambisome, given lung lesions, if decompensates #Pseudomonas bacteremia: bld cx x 1 from 07/20 positive. Resistant to cipro and meropenem b ut sensitive to zosyn. Repeat cx from 07/21 shows NGTD. PICC pulled 07/22 -ID following. -Has received full 14 day course of zosyn for bacteremia. #Multifocal PNA: With intermittent hypoxia, obtained CXR and then CT which shows ANGELLA and R LL PNA which has progressed rapidly compared to CXR on 07/25. Serum galactomannan negative. -Consulted ID and pulmonary and will have BAL on 07/31. -Continue zosyn and posaconazole for now. #Prophylaxis: Bacterial: as above Fungal: Posaconazole, level 07/30=2.6 Viral: Acyclovir PCP: not indicated Fluid/Nutrition/Lytes: #Nutrition: Current diet -- Regular No Felisha's yogurt or Kefir. #Fluid: none with FVO and adequate PO intake #Lytes: -Continue to check chemistries daily -Replace per supportive care protocol Disposition: Anticipate discharge on Maribel 08/08 with supportive management locally. No furt her aggressive chemo will be offered. [facility] [id number] [id number] [facility] Mailcode: [email or web address] [place] [address] Pepe Chavis MD - 08/05/2017 10:04 PM PDTFormatting of this note may be different from jl cary. Hematologic Malignancies/Bone Marrow Transplant Inpatient Attending Progress Note: Hospital course summary: 51 yo woman with relapsed FLT3 ITD AML s/p arlette + cytarabine (intention to add sorafenib but denied). Course has been complicated by proctitis, high WBC, pseudomonas infx. Had BM biopsy after therapy. 08/01/17 Bone marrow aspirate, clot, core biopsy and peripheral blood: - Residual acute myeloid leukemia (80% blasts) involving a hypocell ular (5%) marrow - Pancytopenia We reviewed lack of response and inability to move to transplant with disease. Will discuss with palliative and SW next week how we can get her home. I rounded today, 08/05/17, in conjunction with the Advanced Practice Provider. I saw the patient, reviewed the history and relevant studies and developed an assessment an d plan. Subjective/Objective: feeling pretty good today. Swelling in legs about the same. No pain. Walking more. ROS otherwise negative Summary of day's events and plan: day 36 of arlette + cytarabine (intention to add sorafenib bu t denied) - Pseudomonas from blood culture ->resistant to cipro and heber ->on zosyn ->add zerba xa if further fevers - also concern for possible fungal PNA initially -> BAL and following cultures, anticipate PCR results soon - no further chemo for disease - trying to obtain palliative sorafenib - acyclovir and posa ppx - hemodynamically stable - still feels puffy and would like more lasix - will work on trying to get home with palliative care and then hope to transition to hospi ce - pt would like to at home Please see the Advanced Practice Provider documentation from today for the details regardin g the assessment and plan. Active Problems: Patients Hospital Problem List: Active Hospital Problems 1) COPD (chronic obstructive pulmonary disease) (HCC) 2) Anxiety and depression 3) Acute myeloid leukemia not having achieved remission (HCC) 4) Learning disability 5) Rash of face 6) Neutropenic fever (HCC) 7) Pancytopenia due to antineoplastic chemotherapy (HCC) 8) Transaminitis 9) Hepatosplenomegaly 10) Pleural effusion 11) Proctitis 12) Protein-calorie malnutrition, mild (HCC) 13) Immunocompromised state (HCC) 14) Chemotherapy induced diarrhea Ht 1.59 m (5' 2.6"), Wt 83.2 kg (183 lb 6.4 oz), BP 140/72, Pulse 108, Temperature 37 C ( 98.6 F), RR 16, SpO2 92%, BMI 32.91 kg/(m^2). Focused Exam: nad, op clear, cta b, rrr no m/r/g, soft abd, 1+ edema Intake/Output Summary (Last 24 hours) at 08/05/172203 Last data filed at 08/05/172054 Gross per 24 hour Intake 2679 ml Output 2436 ml Net 243 ml Recent Labs 08/03/17 0155 08/03/17 2346 08/04/17 1110 08/04/17 2330 08/05/17 0655 NA 135* 136 -- 137 -- K 3.2* 2.8* 3.4 3.3* 3.7 CL 99 97 -- 100 -- BICARB 28 30 -- 29 -- BUN 3* 3* -- 3* -- CR 0.46* 0.48* -- 0.47* -- GLU 117* 113* -- 103* -- CA 8.2* 7.6* -- 7.7* -- AST 10 9 -- 10 -- ALT 12 9 -- 8 -- AP 140* 130* -- 139* -- TBILI 1.0 0.8 -- 0.9 -- TP 5.5* 5.3* -- 5.3* -- ALB 2.1* 2.0* -- 2.0* -- Recent Labs 07/01/17 2318 07/02/17 2336 07/04/17 0040 08/03/17 0130 08/03/17 2346 08/04/17 233 WBC 17.35* < > 3.52 < > 0.55* < > <0.10* <0.10* <0.10* RBC 2.47* < > 2.09* < > 2.23* < > 2.78* 2.53* 2.80* HB 7.4* < > 6.4* < > 6.7* < > 8.1* 7.3* 8.2* HCT 22.8* < > 19.2* < > 19.9* < > 22.7* 20.4* 23.0* PLT 12* < > 16* < > 7* < > 22* 14* 19* NEUTROPERC 13.2* -- 25.7* -- 32.5* -- -- -- -- LYMPHPERC 6.1* -- 5.3* -- 5.0* -- -- -- -- MONOPERC 0.9* -- 0.9* -- 10.0* -- -- -- -- BASOPERC 0.0 -- 0.0 -- 0.0 -- -- -- -- EOSPERC 0.0* -- 0.0* -- 0.0* -- -- -- -- < > = values in this interval not displayed. I spent 35 minutes including chart review and discussion with the NICOLE. Greater than >50% of time spent in direct counseling and coordination of care including discussion of palliative care, hospice, transfusions, abx, infx, and plan. Shayna Gardiner, PA - 08/05/2017 2:52 PM PDTFormatting of this note may be different fro m the original. Daily NICOLE Note - Chemotherapy Ad[facility] Attending: Pepe Chavis MD [facility] Physician: Pepe Chavis MD Local Oncologist: Daniel Patterson MD PCP: Saurav Small NP Date of Admission: 06/28/17 Hematologic Malignancy: AML ID: 51 yo woman with second relapse AML, FLT3 ITD admitted for evaluation and treatment. Hx COPD, Depression/PTSD, Disorder of Thyroid, HTN, Insomnia 24 Hour Events/Current Daily Plan: -Relapsed AML, Flt3: currently Arlette + modified Maurizio-C, currently day 36. BMBX on 08/01 shows hy pocellular marrow (5%) with 80% blasts. -Not a candidate for additional aggressive chemo. -Will possibly pursue FLT3 inhibitors including sorafenib (previously denied by insurance in setting of concurrent use with chemo). -Plan to discuss hospice vs supportive care in coming days. -Pancytopenia secondary to chemotherapy: standard transfusion parameters. There is no bloo d product support required at this time. -Neutropenic fever: noted on 07/20, restarted zosyn. Bld cx x 1 07/20 positive for pseudomon as (see below). -Pseudomonas bacteremia: bld cx x 1 from 07/20 positive. Cleared as of 07/21. Resistant to ci pro and meropenem. PICC pulled 07/22, replaced 07/25 with negative cultures. ID following. -Continue zosyn as above and continue for 14 day course and until ANC recovery. -If decompensates, switch Zosyn to Zerbaxa + Ambisome (given lung lesions) if decompensate s -Multifocal PNA with ANGELLA and RML large consolidations: developing opacitis on CXR 07/25 and has since evolved. Serum galacto negative. Underwent BAL on 07/31, results neg with the except ion of broad range PCR which is pending. -Supplemental O2 PRN, currently using 1.5L NC -Rash, facial: worsening. Restart hydrocortisone cream BID.. -FVO: face and leg edema noted. Give lasix 20 mg IV x 1 again today. -Hypokalemia: Requires potassium repletion today. Started KDur 10 mEq TID on 08/04. Subjective: Feeling ok today. Still with swelling in legs. Objective: Last Vitals: BP 115/66 | Pulse 93 | Temp 36.6 C (97.9 F) | RR 16 | Ht 1.59 m (5' 2.6") | Wt 83.2 kg (183 lb 6.4 oz) | SpO2 90% | BMI 32.91 kg/(m^2) 24 Hour Vital Min/Max: Systolic (24hrs), Av , Min:110 , Max:138 Diastolic (24hrs), Av, Min:59, Max:69 Pulse Min: 88 Max: 106 Temp Min: 36.6 C (97.9 F) Max: 37.5 C (99.5 F) Resp Min: 14 Max: 18 SpO2 Min: 90 % Max: 97 % Intake/Output Summary (Last 24 hours) at 08/05/17 1452 Last data filed at 08/05/17 1439 Gross per 24 hour Intake 3434 ml Output 3386 ml Net 48 ml Physical Exam: General: This is a female in no acute distress. Sitting up in chair. HEENT: PERRL. Sclerae anicteric. No lesions noted in mouth Skin: Erythema noted to face with edema. Chest: Clear to auscultation bilaterally. CV: RRR, no murmurs. Abdomen: S/NT/ND with NABS. No HSM appreciated. Extremities: Pulses strong and equal bilaterally. No c/c/1+ BLE edema NeuroPsych: Alert and oriented x 3. Grossly nonfocal exam. CVC: LUE PICC site without inflammation or induration. C/D/I Laboratory Results: Recent Labs 08/03/17 0155 08/03/17 2346 08/04/17 1110 08/04/17 2330 08/05/17 0655 NA 135* 136 -- 137 -- K 3.2* 2.8* 3.4 3.3* 3.7 CL 99 97 -- 100 -- BICARB 28 30 -- 29 -- BUN 3* 3* -- 3* -- CR 0.46* 0.48* -- 0.47* -- GLU 117* 113* -- 103* -- CA 8.2* 7.6* -- 7.7* -- AST 10 9 -- 10 -- ALT 12 9 -- 8 -- AP 140* 130* -- 139* -- TBILI 1.0 0.8 -- 0.9 -- TP 5.5* 5.3* -- 5.3* -- ALB 2.1* 2.0* -- 2.0* -- Recent Labs 07/01/17 2318 07/02/17 2336 07/04/17 0040 08/03/17 0130 08/03/17 2346 08/04/17 2330 WBC 17.35* < > 3.52 < > 0.55* < > <0.10* <0.10* <0.10* RBC 2.47* < > 2.09* < > 2.23* < > 2.78* 2.53* 2.80* HB 7.4* < > 6.4* < > 6.7* < > 8.1* 7.3* 8.2* HCT 22.8* < > 19.2* < > 19.9* < > 22.7* 20.4* 23.0* PLT 12* < > 16* < > 7* < > 22* 14* 19* NEUTROPERC 13.2* -- 25.7* -- 32.5* -- -- -- -- LYMPHPERC 6.1* -- 5.3* -- 5.0* -- -- -- -- MONOPERC 0.9* -- 0.9* -- 10.0* -- -- -- -- BASOPERC 0.0 -- 0.0 -- 0.0 -- -- -- -- EOSPERC 0.0* -- 0.0* -- 0.0* -- -- -- -- < > = values in this interval not displayed. Meds: Reviewed on rounds, see current MAR for medication list SUMMARY OF PATIENT'S HOSPITALIZATION History of Present Illness: (from H&P) Rhea Hutchison is a 51-year-old woman with a history of COPD, depression, hypothyroidism, and AML diagnosed in late 2015 after she presented with pleuritic chest pain and shortness of br eath in addition to profound leukocytosis. Her disease was initially managed with 7+3+ Dasa tinib, course gated by neutropenic fevers, C. difficile, nodular groundglass opacities sudeep rning for invasive fungal infection (although galactomannan negative), treated with Isavucon azole -> Voriconazole. She was reinduced with Cytarabine and entered CR1. She subsequently relapsed in February 2017 started on FLAG-Arlette salvage-->CR2. Her course was subsequently c omplicated by bacterial pneumonia, otherwise recovered well Patient presents as a transfer from outside hospital ([facility]) where she pres ented with body aches and profound fatigue, anemic with new leukocytosis. Repeat bone marro w biopsy concerning for relapsed AML (blasts positive for CD 117, CD33). In the interim sin ce her initial admission, the patient endorses development of new new acute onset pleuritic left-sided chest pain. She states that this chest pain is stabbing, 5-6 out of 10 in intens ity. It is accompanied by a degree of resting dyspnea. Patient also endorses nagging cough productive of white/yellow sputum of approximately 1 week's duration. She denies constitut ional symptoms including fevers, chills, night sweats. She denies new palpitations. She de nies new oral lesions or odynophagia. She does endorse a degree of ongoing nausea but state s that that is baseline for her. She denies emesis. Endorses a degree of constipation. De nies deep new complaints. She does endorse a developing petechial rash over bilateral lo wer extremities, as well as her upper back. She denies new adenopathy. Hospitalization History: Hematology: #Relapsed Flt3 AML: Had salvage FLAG-Arlette + Midostaurin and Azacitidine bridge while awaitin g SCT now with relapse. Pertinent Diagnostics: -BM Bx 06/21/17 ([facility] [id number]): -Results: 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 myelogenous leukemia (60%); Blasts positive for CD117 and CD 33, negative for CD34, CD71, CD61, CD3 and PAX-5. -Cytogenetics: Normal -Genetrails: NPM1, DNMT3A, NRAS, TET2, FLT3 TKD mutations -06/30 peripheral blood flow: Recurrent acute myeloid leukemia (87% blasts) -08/01/17 BMBx: -Results: hypocellular marrow (5%) with 80% blasts -Cytogenetics: PENDING -Genetrails: PENDING Treatment -Chemotherapy regimen: Arlette + Maurizio-C, started 07/01/17 -Idarubicin 12 mg/m2 daily x 3 days -Cytarabine 1500 mg/m2 CI IV daily x 4 days. -Sorafenib authorization was denied, consider mylotarg for subsequent chemo cycles. -Chemo Day: 36 Patient is currently not a transplant candidate, but if it were to change, brother is a match #Pancytopenia secondary to chemotherapy: -See supportive care #Supportive Care: Growth factor: no growth factors required at this time Labs: Continue to check CBC daily Transfusion parameters: -Transfuse PRBCs for HCT <21% if asymptomatic -Transfuse PPH for platelet count <10,000 sooner PRN s/s bleeding Cardiovascular: Prechemo TTE on 06/29/17 shows EF of 65-70% #Hx of Hypertension: continues on home anti-hypertensives -Amlodipine 10mg daily -Lisinopril 5mg daily Pulmonary: #COPD: continues on home inhalers -Spiriva 18mcg daily -Albuterol PRN #Multifocal PNA (see ID section) GI: #Abdominal pain: multifactorial, likely secondary to constipation, uncomplicated proctitis, and HSM. 06/29 CT AP showed uncomplicated proctitis, hepatosplenomegaly, and stool in rectum. Resolved. #Transaminitis with hyperbilirubinemia, possibly d/t idarubicin, AML with liver infiltrates or Zosyn. Monitor. #SWAPNIL, no emesis: controlled -Antiemetics PRN #GERD: worse on 07/23 -Maalox PRN -Omeprazole to 40mg daily #Diarrhea, likely due to chemotherapy: resolving. -Imodium PRN /Renal: #Overactive bladder: chronic issue -Oxybutynin CR 15mg daily Neuro/Psych: #Depression/anxiety -Cymbalta 90mg daily -Lorazepam PRN anxiety Endocrine: #Hypothyroidism: -Synthroid 37.5mcg daily Derm: #Rash: most consistent with drug rash. Derm consulted on 07/16 and diagnosed her with neutro philic eccrine hidradenitis most likely / to cytarabine. Rash resolved. -On face: triamcinolone 0.1% ointment BID x 3 days only. Then switch to hydrocortisone 2.5 % ointment BID, 07/17-07/23 -On body: triamcinolone 0.1% ointment BID, 07/17-07/23 Infectious Disease: #Non-neutropenic fever, with septic picture 06/29 with tachycardia, tachypnea. Afebrile at th e time, however spiked a fever on 07/01. Localizing symptoms include pleuritic pain and abdomi nal pain. Bld cx NGTD. 06/29 CTA showed left pleural effusion and adjacent atelectasis, no PE or consolidations. 06/29 CT AP showed uncomplicated proctitis, HSM with scattered areas of li maria m AML infiltration, extramedullary hematopoiesis or microabscesses -s/p zosyn (06/29- 07/17) -s/p Levofloxacin (07/17-07/21) switched with neutropenic fevers/pseudomonas bacteremia #Neutropenic fever: noted on 07/20. Bld x 1 positive for pseudomonas. CXR neg. Replaced PI CC 07/25 -Zosyn (07/21- ) continue for 14 day course (08/03) and until ANC recovery -Plan to switch Zosyn to Zerbaxa + Ambisome, given lung lesions, if decompensates #Pseudomonas bacteremia: bld cx x 1 from 07/20 positive. Resistant to cipro and meropenem b ut sensitive to zosyn. Repeat cx from 07/21 shows NGTD. PICC pulled 07/22 -ID following. -Continue zosyn as above #Multifocal PNA: With intermittent hypoxia, obtained CXR and then CT which shows ANGELLA and R LL PNA which has progressed rapidly compared to CXR on 07/25. Serum galactomannan negative. -Consulted ID and pulmonary and will have BAL on 07/31. -Continue zosyn and posaconazole for now. #Prophylaxis: Bacterial: as above Fungal: Posaconazole, level 07/30=2.6 Viral: Acyclovir PCP: not indicated Fluid/Nutrition/Lytes: #Nutrition: Current diet -- Regular No Felisha's yogurt or Kefir. #Fluid: none with FVO #Lytes: -Continue to check chemistries daily -Replace per supportive care protocol Disposition: Anticipate discharge on Maribel 08/08 with supportive management locally. No furt her aggressive chemo will be offered. [facility] [id number] [facility] Mailcode: [email or web address] [place] [address] Pepe Chavis MD - 08/04/2017 12:26 PM PDTFormatting of this note may be different from e original. Hematologic Malignancies/Bone Marrow Transplant Inpatient Attending Progress Note: Hospital course summary: 51 yo woman with relapsed FLT3 ITD AML s/p arlette + cytarabine (intention to add sorafenib but denied). Course has been complicated by proctitis, high WBC, pseudomonas infx. Had BM biopsy after therapy. 08/01/17 Bone marrow aspirate, clot, core biopsy and peripheral blood: - Residual acute myeloid leukemia (80% blasts) involving a hypocell ular (5%) marrow - Pancytopenia We reviewed lack of response and inability to move to transplant with disease. Will discuss with palliative and SW next week how we can get her home. I rounded today, 08/04/17, in conjunction with the Advanced Practice Provider. I saw the patient, reviewed the history and relevant studies and developed an assessment an d plan. Subjective/Objective: had some heartburn and emesis yesterday after eating pizza and drinki ng orange juice. Improved after emesis. Now feels okay and had breakfast this AM. Slept well . ROS otherwise negative Summary of day's events and plan: day 35 of arlette + cytarabine (intention to add sorafenib bu t denied) - Pseudomonas from blood culture -> resistant to cipro and heber -> on zosyn -> add zerbaxa if further fevers - also concern for possible fungal PNA initially -> BAL and following cultures - reviewed presence of residual disease in marrow -> no further therapy given multiple rela pses - acyclovir and posa ppx - hemodynamically stable - remains pancytopenic -> may have some recovery soon but also with residual AML - try to find FLT3 inhibitor for palliative control of disease to allow her to go home - feels puffy and would like lasix Please see the Advanced Practice Provider documentation from today for the details regardin g the assessment and plan. Active Problems: Patients Hospital Problem List: Active Hospital Problems 1) COPD (chronic obstructive pulmonary disease) (HCC) 2) Anxiety and depression 3) Acute myeloid leukemia not having achieved remission (HCC) 4) Learning disability 5) Rash of face 6) Neutropenic fever (HCC) 7) Pancytopenia due to antineoplastic chemotherapy (HCC) 8) Transaminitis 9) Hepatosplenomegaly 10) Pleural effusion 11) Proctitis 12) Protein-calorie malnutrition, mild (HCC) 13) Immunocompromised state (HCC) 14) Chemotherapy induced diarrhea Ht 1.59 m (5' 2.6"), Wt 81.3 kg (179 lb 3.2 oz), BP 104/69, Pulse 90, Temperature 36.8 C (98.2 F), RR 16, SpO2 96%, BMI 32.15 kg/(m^2). Focused Exam: nad, facial erythema (baseline), op clear, cta b, rrr no m/r/g, soft abd, 1+ edema Intake/Output Summary (Last 24 hours) at 08/04/17 1226 Last data filed at 08/04/17 1100 Gross per 24 hour Intake 2981 ml Output 1450 ml Net 1531 ml Recent Labs 08/01/17 2355 08/03/17 0155 08/03/17 2346 08/04/17 1110 NA 136 -- 135* 136 -- K 2.6* < > 3.2* 2.8* 3.4 CL 98 -- 99 97 -- BICARB 27 -- 28 30 -- BUN 3* -- 3* 3* -- CR 0.41* -- 0.46* 0.48* -- GLU 92 -- 117* 113* -- CA 8.0* -- 8.2* 7.6* -- AST 13 -- 10 9 -- ALT 15 -- 12 9 -- AP 159* -- 140* 130* -- TBILI 0.8 -- 1.0 0.8 -- TP 5.5* -- 5.5* 5.3* -- ALB 2.2* -- 2.1* 2.0* -- < > = values in this interval not displayed. Recent Labs 07/01/17 23107/02/17233507/04/17 0040 08/01/17 2346 08/03/170 08/03/172345 WBC 17.35* < > 3.52 < > 0.55* < > <0.10* <0.10* <0.10* RBC 2.47* < > 2.09* < > 2.23* < > 2.63* 2.78* 2.53* HB 7.4* < > 6.4* < > 6.7* < > 7.6* 8.1* 7.3* HCT 22.8* < > 19.2* < > 19.9* < > 21.0* 22.7* 20.4* PLT 12* < > 16* < > 7* < > 15* 22* 14* NEUTROPERC 13.2* -- 25.7* -- 32.5* -- -- -- -- LYMPHPERC 6.1* -- 5.3* -- 5.0* -- -- -- -- MONOPERC 0.9* -- 0.9* -- 10.0* -- -- -- -- BASOPERC 0.0 -- 0.0 -- 0.0 -- -- -- -- EOSPERC 0.0* -- 0.0* -- 0.0* -- -- -- -- < > = values in this interval not displayed. I spent 35 minutes including chart review and discussion with the NICOLE. Greater than >50% of time spent in direct counseling and coordination of care including discussion of marrow, in fx, fluids, GERD, palliative care, and plan for next week. Shayna Gardiner PA - 08/04/2017 12:07 PM PDTFormatting of this note may be different fro m the original. Daily NICOLE Note - [facility]otherapy [facility] Attending: Pepe Chavis MD [facility] Physician: Pepe Chavis MD Local Oncologist: Daniel Patterson MD PCP: Saurav Small NP Date of Admission: 06/28/17 Hematologic Malignancy: AML ID: 51 yo woman with second relapse AML, FLT3 ITD admitted for evaluation and treatment. Hx COPD, Depression/PTSD, Disorder of Thyroid, HTN, Insomnia 24 Hour Events/Current Daily Plan: -Relapsed AML, Flt3: currently Arlette + modified Maurizio-C, currently day 35. BMBX on 08/01 shows hy pocellular marrow (5%) with 80% blasts. -Not a candidate for additional aggressive chemo. -Will possibly pursue FLT3 inhibitors including sorafenib (previously denied by insurance in setting of concurrent use with chemo). -Plan to discuss hospice vs supportive care in coming days. -Pancytopenia secondary to chemotherapy: standard transfusion parameters. 1U PRBCs today. -Neutropenic fever: noted on 07/20, restarted zosyn. Bld cx x 1 07/20 positive for pseudomon as (see below). -Pseudomonas bacteremia: bld cx x 1 from 07/20 positive. Cleared as of 07/21. Resistant to ci pro and meropenem. PICC pulled 07/22, replaced 07/25 with negative cultures. ID following. -Continue zosyn as above and continue for 14 day course and until ANC recovery. -If decompensates, switch Zosyn to Zerbaxa + Ambisome (given lung lesions) if decompensate s -Multifocal PNA with ANGELLA and RML large consolidations: developing opacitis on CXR 07/25 and has since evolved. Serum galacto negative. Underwent BAL on 07/31, results neg with the except ion of broad range PCR which is pending. -Supplemental O2 PRN, currently using 1.5L NC -FVO: face and leg edema noted. Give lasix 20 mg IV x 1 today. -Hypokalemia: Replace potassium today and recheck this afternoon. Subjective: Continues to have cough with sputum production which triggers emesis. Also wit h heartburn yesterday after eating pizza and drinking OJ. Feels very swollen in her feet. Objective: Last Vitals: BP 104/69 | Pulse 90 | Temp 36.8 C (98.2 F) | RR 16 | Ht 1.59 m (5' 2.6") | Wt 81.3 kg (179 lb 3.2 oz) | SpO2 96% | BMI 32.15 kg/(m^2) 24 Hour Vital Min/Max: Systolic (24hrs), Av , Min:101 , Max:138 Diastolic (24hrs), Av, Min:60, Max:88 Pulse Min: 50 Max: 105 Temp Min: 36.7 C (98.1 F) Max: 37.6 C (99.7 F) Resp Min: 16 Max: 20 SpO2 Min: 92 % Max: 98 % Intake/Output Summary (Last 24 hours) at 08/04/17 1207 Last data filed at 08/04/17 1100 Gross per 24 hour Intake 2981 ml Output 1450 ml Net 1531 ml Physical Exam: General: This is a female in no acute distress. Sitting up in chair. HEENT: PERRL. Sclerae anicteric. No lesions noted in mouth Skin: Faint erythema noted to face with edema. Chest: Clear to auscultation bilaterally. CV: RRR, no murmurs. Abdomen: S/NT/ND with NABS. No HSM appreciated. Extremities: Pulses strong and equal bilaterally. No c/c/1+ BLE edema NeuroPsych: Alert and oriented x 3. Grossly nonfocal exam. CVC: LUE PICC site without inflammation or induration. C/D/I Laboratory Results: Recent Labs 08/01/17 2355 08/03/17 0155 08/03/17 2346 08/04/17 1110 NA 136 -- 135* 136 -- K 2.6* < > 3.2* 2.8* 3.4 CL 98 -- 99 97 -- BICARB 27 -- 28 30 -- BUN 3* -- 3* 3* -- CR 0.41* -- 0.46* 0.48* -- GLU 92 -- 117* 113* -- CA 8.0* -- 8.2* 7.6* -- AST 13 -- 10 9 -- ALT 15 -- 12 9 -- AP 159* -- 140* 130* -- TBILI 0.8 -- 1.0 0.8 -- TP 5.5* -- 5.5* 5.3* -- ALB 2.2* -- 2.1* 2.0* -- < > = values in this interval not displayed. Recent Labs 07/01/17 2318 07/02/17 2336 07/04/17 0040 08/01/17 2346 08/03/17 0130 08/03/172345 WBC 17.35* < > 3.52 < > 0.55* < > <0.10* <0.10* <0.10* RBC 2.47* < > 2.09* < > 2.23* < > 2.63* 2.78* 2.53* HB 7.4* < > 6.4* < > 6.7* < > 7.6* 8.1* 7.3* HCT 22.8* < > 19.2* < > 19.9* < > 21.0* 22.7* 20.4* PLT 12* < > 16* < > 7* < > 15* 22* 14* NEUTROPERC 13.2* -- 25.7* -- 32.5* -- -- -- -- LYMPHPERC 6.1* -- 5.3* -- 5.0* -- -- -- -- MONOPERC 0.9* -- 0.9* -- 10.0* -- -- -- -- BASOPERC 0.0 -- 0.0 -- 0.0 -- -- -- -- EOSPERC 0.0* -- 0.0* -- 0.0* -- -- -- -- < > = values in this interval not displayed. Meds: Reviewed on rounds, see current MAR for medication list SUMMARY OF PATIENT'S HOSPITALIZATION History of Present Illness: (from H&P) Rhea Hutchison is a 51-year-old woman with a history of COPD, depression, hypothyroidism, and AML diagnosed in late 2015 after she presented with pleuritic chest pain and shortness of br eath in addition to profound leukocytosis. Her disease was initially managed with 7+3+ Dasa tinib, course gated by neutropenic fevers, C. difficile, nodular groundglass opacities sudeep rning for invasive fungal infection (although galactomannan negative), treated with Isavucon azole -> Voriconazole. She was reinduced with Cytarabine and entered CR1. She subsequently relapsed in February 2017 started on FLAG-Arlette salvage-->CR2. Her course was subsequently c omplicated by bacterial pneumonia, otherwise recovered well Patient presents as a transfer from outside hospital ([facility]) where she pres ented with body aches and profound fatigue, anemic with new leukocytosis. Repeat bone marro w biopsy concerning for relapsed AML (blasts positive for CD 117, CD33). In the interim sin ce her initial admission, the patient endorses development of new new acute onset pleuritic left-sided chest pain. She states that this chest pain is stabbing, 5-6 out of 10 in intens ity. It is accompanied by a degree of resting dyspnea. Patient also endorses nagging cough productive of white/yellow sputum of approximately 1 week's duration. She denies constitut ional symptoms including fevers, chills, night sweats. She denies new palpitations. She de nies new oral lesions or odynophagia. She does endorse a degree of ongoing nausea but state s that that is baseline for her. She denies emesis. Endorses a degree of constipation. De nies deep new complaints. She does endorse a developing petechial rash over bilateral lo wer extremities, as well as her upper back. She denies new adenopathy. Hospitalization History: Hematology: #Relapsed Flt3 AML: Had salvage FLAG-Arlette + Midostaurin and Azacitidine bridge while awaitin g SCT now with relapse. Pertinent Diagnostics: -BM Bx 06/21/17 ([id number]): -Results: 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 myelogenous leukemia (60%); Blasts positive for CD117 and CD 33, negative for CD34, CD71, CD61, CD3 and PAX-5. -Cytogenetics: Normal -Genetrails: NPM1, DNMT3A, NRAS, TET2, FLT3 TKD mutations -06/30 peripheral blood flow: Recurrent acute myeloid leukemia (87% blasts) -08/01/17 BMBx: -Results: hypocellular marrow (5%) with 80% blasts -Cytogenetics: PENDING -Genetrails: PENDING Treatment -Chemotherapy regimen: Arlette + Maurizio-C, started 07/01/17 -Idarubicin 12 mg/m2 daily x 3 days -Cytarabine 1500 mg/m2 CI IV daily x 4 days. -Sorafenib authorization was denied, consider mylotarg for subsequent chemo cycles. -Chemo Day: 35 Patient is currently not a transplant candidate, but if it were to change, brother is a match #Pancytopenia secondary to chemotherapy: -See supportive care #Supportive Care: Growth factor: no growth factors required at this time Labs: Continue to check CBC daily Transfusion parameters: -Transfuse PRBCs for HCT <21% if asymptomatic -Transfuse PPH for platelet count <10,000 sooner PRN s/s bleeding Cardiovascular: Prechemo TTE on 06/29/17 shows EF of 65-70% #Hx of Hypertension: continues on home anti-hypertensives -Amlodipine 10mg daily -Lisinopril 5mg daily Pulmonary: #COPD: continues on home inhalers -Spiriva 18mcg daily -Albuterol PRN #Multifocal PNA (see ID section) GI: #Abdominal pain: multifactorial, likely secondary to constipation, uncomplicated proctitis, and HSM. 06/29 CT AP showed uncomplicated proctitis, hepatosplenomegaly, and stool in rectum. Resolved. #Transaminitis with hyperbilirubinemia, possibly d/t idarubicin, AML with liver infiltrates or Zosyn. Monitor. #SWAPNIL, no emesis: controlled -Antiemetics PRN #GERD: worse on 07/23 -Maalox PRN -Omeprazole to 40mg daily #Diarrhea, likely due to chemotherapy: resolving. -Imodium PRN /Renal: #Overactive bladder: chronic issue -Oxybutynin CR 15mg daily Neuro/Psych: #Depression/anxiety -Cymbalta 90mg daily -Lorazepam PRN anxiety Endocrine: #Hypothyroidism: -Synthroid 37.5mcg daily Derm: #Rash: most consistent with drug rash. 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 Rash resolved. -On face: triamcinolone 0.1% ointment BID x 3 days only. Then switch to hydrocortisone 2.5 % ointment BID, 07/17-07/23 -On body: triamcinolone 0.1% ointment BID, 07/17-07/23 Infectious Disease: #Non-neutropenic fever, with septic picture 06/29 with tachycardia, tachypnea. Afebrile at th e time, however spiked a fever on 07/01. Localizing symptoms include pleuritic pain and abdomi nal pain. Bld cx NGTD. 06/29 CTA showed left pleural effusion and adjacent atelectasis, no PE or consolidations. 06/29 CT AP showed uncomplicated proctitis, HSM with scattered areas of li maria m AML infiltration, extramedullary hematopoiesis or microabscesses -s/p zosyn (06/29- 07/17) -s/p Levofloxacin (07/17-07/21) switched with neutropenic fevers/pseudomonas bacteremia #Neutropenic fever: noted on 07/20. Bld x 1 positive for pseudomonas. CXR neg. Replaced PI CC 07/25 -Zosyn (07/21- ) continue for 14 day course (08/03) and until ANC recovery -Plan to switch Zosyn to Zerbaxa + Ambisome, given lung lesions, if decompensates #Pseudomonas bacteremia: bld cx x 1 from 07/20 positive. Resistant to cipro and meropenem b ut sensitive to zosyn. Repeat cx from 07/21 shows NGTD. PICC pulled 07/22 -ID following. -Continue zosyn as above #Multifocal PNA: With intermittent hypoxia, obtained CXR and then CT which shows ANGELLA and R LL PNA which has progressed rapidly compared to CXR on 07/25. Serum galactomannan negative. -Consulted ID and pulmonary and will have BAL on 07/31. -Continue zosyn and posaconazole for now. #Prophylaxis: Bacterial: as above Fungal: Posaconazole, level 07/30=2.6 Viral: Acyclovir PCP: not indicated Fluid/Nutrition/Lytes: #Nutrition: Current diet -- Regular No Felisha's yogurt or Kefir. #Fluid: none with FVO #Lytes: -Continue to check chemistries daily -Replace per supportive care protocol Disposition: Anticipate discharge this week, either with hospice or ongoing supportive man agement locally. No further aggressive chemo will be offered. [facility] [address] [facility] Mailcode: [email or web address] [place], [place] [id number] Pepe Chavis MD - 08/03/2017 11:59 AM PDTFormatting of this note may be different from th e original. Hematologic Malignancies/Bone Marrow Transplant Inpatient Attending Progress Note: Hospital course summary: 51 yo woman with relapsed FLT3 ITD AML s/p arlette + cytarabine (intention to add sorafenib but denied). Course has been complicated by proctitis, high WBC, pseudomonas infx. Had BM biopsy after therapy. 08/01/17 Bone marrow aspirate, clot, core biopsy and peripheral blood: - Residual acute myeloid leukemia (80% blasts) involving a hypocellular (5%) ma rrow - Pancytopenia I rounded today, 08/03/17, in conjunction with the Advanced Practice Provider. I saw the patient, reviewed the history and relevant studies and developed an assessment an d plan. Subjective/Objective: feeling okay. Breathing stable. No further fevers. No pain. Eating/dr inking okay. ROS otherwise negative Summary of day's events and plan: day 34 of arlette + cytarabine (intention to add sorafenib bu t denied) - Pseudomonas from blood culture -> resistant to cipro and heber -> on zosyn -> add zerbaxa for further fevers - concern for possible fungal PNA initially -> BAL and following cultures - reviewed presence of residual disease in marrow -> no further therapy given multiple rela pses - acyclovir and posa ppx - hemodynamically stable - remains pancytopenic - try to find FLT3 inhibitor for palliative control of disease to allow her to go home Rhea was devastated with news about her marrow. We discussed that she does not have good treatment options at this point and can not go to transplant. She would like to go home and try to spend time with her family. Please see the Advanced Practice Provider documentation from today for the details regardin g the assessment and plan. Active Problems: Patients Hospital Problem List: Active Hospital Problems 1) COPD (chronic obstructive pulmonary disease) (HCC) 2) Anxiety and depression 3) Acute myeloid leukemia not having achieved remission (HCC) 4) Learning disability 5) Rash of face 6) Neutropenic fever (HCC) 7) Pancytopenia due to antineoplastic chemotherapy (HCC) 8) Transaminitis 9) Hepatosplenomegaly 10) Pleural effusion 11) Proctitis 12) Protein-calorie malnutrition, mild (HCC) 13) Immunocompromised state (HCC) 14) Chemotherapy induced diarrhea Ht 1.59 m (5' 2.6"), Wt 81.3 kg (179 lb 3.2 oz), BP 126/66, Pulse 106, Temperature 37.8 C (100 F), RR 24, SpO2 94%, BMI 32.15 kg/(m^2). Focused Exam: nad, op clear, soft abd and no pain, no edema, no rash, few petechiae Intake/Output Summary (Last 24 hours) at 08/03/17 1159 Last data filed at 08/03/17 0656 Gross per 24 hour Intake 2505 ml Output 3010 ml Net -505 ml Recent Labs 08/01/17 0015 08/01/17 2355 08/02/17 1400 08/03/17 0155 NA 137 136 -- 135* K 3.0* 2.6* 2.9* 3.2* CL 101 98 -- 99 BICARB 24 27 -- 28 BUN 4* 3* -- 3* CR 0.42* 0.41* -- 0.46* GLU 75 92 -- 117* CA 8.0* 8.0* -- 8.2* AST 12 13 -- 10 ALT 15 15 -- 12 AP 142* 159* -- 140* TBILI 1.0 0.8 -- 1.0 TP 5.4* 5.5* -- 5.5* ALB 2.1* 2.2* -- 2.1* Recent Labs 07/01/17 2318 07/02/17 2336 07/04/17 0040 08/01/17 0015 08/01/17 2346 08/03/17 0130 WBC 17.35* < > 3.52 < > 0.55* < > <0.10* <0.10* <0.10* RBC 2.47* < > 2.09* < > 2.23* < > 2.65* 2.63* 2.78* HB 7.4* < > 6.4* < > 6.7* < > 7.6* 7.6* 8.1* HCT 22.8* < > 19.2* < > 19.9* < > 21.6* 21.0* 22.7* PLT 12* < > 16* < > 7* < > 23* 15* 22* NEUTROPERC 13.2* -- 25.7* -- 32.5* -- -- -- -- LYMPHPERC 6.1* -- 5.3* -- 5.0* -- -- -- -- MONOPERC 0.9* -- 0.9* -- 10.0* -- -- -- -- BASOPERC 0.0 -- 0.0 -- 0.0 -- -- -- -- EOSPERC 0.0* -- 0.0* -- 0.0* -- -- -- -- < > = values in this interval not displayed. I spent 35 minutes including chart review and discussion with the NICOLE. Greater than >50% of time spent in direct counseling and coordination of care including discussion of marrow res ults, lack of good treatment options, infx, abx, palliative measures, trying to get her home , and plan. Shayna Gardiner PA - 08/03/2017 11:58 AM PDTFormatting of this note may be different fro m the original. Daily NICOLE Note - Chemotherapy Admit [facility] for Hematologic Malignancies Attending: Pepe Chavis MD [facility] Physician: Pepe Chavis MD Local Oncologist: Daniel Patterson MD PCP: Saurav Small NP Date of Admission: 06/28/17 Hematologic Malignancy: AML ID: 51 yo woman with second relapse AML, FLT3 ITD admitted for evaluation and treatment. Hx COPD, Depression/PTSD, Disorder of Thyroid, HTN, Insomnia 24 Hour Events/Current Daily Plan: -Relapsed AML, Flt3: currently Arlette + modified Maurizio-C, currently day 34. BMBX on 08/01 shows hy pocellular marrow (5%) with 80% blasts. -Not a candidate for additional aggressive chemo. -Will possibly pursue FLT3 inhibitors including sorafenib (previously denied by insurance in setting of concurrent use with chemo). -Plan to discuss hospice vs supportive care in coming days. -Pancytopenia secondary to chemotherapy: standard transfusion parameters. There is no bloo d product support required at this time. -Neutropenic fever: noted on 07/20, restarted zosyn. Bld cx x 1 07/20 positive for pseudomon as (see below). -Pseudomonas bacteremia: bld cx x 1 from 07/20 positive. Cleared as of 07/21. Resistant to ci pro and meropenem. PICC pulled 07/22, replaced 07/25 with negative cultures. ID following. -Continue zosyn as above and continue for 14 day course and until ANC recovery. -If decompensates, switch Zosyn to Zerbaxa + Ambisome (given lung lesions) if decompensate s -Multifocal PNA with ANGELLA and RML large consolidations: developing opacitis on CXR 07/25 and has since evolved. Serum galacto negative. Underwent BAL on 07/31, results neg or pending. -Supplemental O2 PRN, currently using 1.5L NC -Hypokalemia: Replace potassium today. -Hypophosphatemia: Replace phosphorus today. Subjective: Feeling well. Denies new complaints. Objective: Last Vitals: BP 126/66 | Pulse 106 | Temp 37.8 C (100 F) | RR 24 | Ht 1.59 m (5' 2.6") | Wt 81.3 kg (179 lb 3.2 oz) | SpO2 94% | BMI 32.15 kg/(m^2) 24 Hour Vital Min/Max: Systolic (24hrs), Av , Min:123 , Max:133 Diastolic (24hrs), Av, Min:66, Max:77 Pulse Min: 101 Max: 112 Temp Min: 37 C (98.6 F) Max: 37.8 C (100 F) Resp Min: 16 Max: 28 SpO2 Min: 90 % Max: 95 % Intake/Output Summary (Last 24 hours) at 08/03/17 1158 Last data filed at 08/03/17 0656 Gross per 24 hour Intake 2505 ml Output 3010 ml Net -505 ml Physical Exam: General: This is a female in no acute distress. Sitting up in chair. HEENT: PERRL. Sclerae anicteric. No lesions noted in mouth Skin: Faint erythema noted to face. Chest: Clear to auscultation bilaterally. CV: RRR, no murmurs. Abdomen: S/NT/ND with NABS. No HSM appreciated. Extremities: Pulses strong and equal bilaterally. No c/c/e NeuroPsych: Alert and oriented x 3. Grossly nonfocal exam. CVC: LUE PICC site without inflammation or induration. C/D/I Laboratory Results: Recent Labs 08/01/17 0015 08/01/17 2355 08/02/17 1400 08/03/17 0155 NA 137 136 -- 135* K 3.0* 2.6* 2.9* 3.2* CL 101 98 -- 99 BICARB 24 27 -- 28 BUN 4* 3* -- 3* CR 0.42* 0.41* -- 0.46* GLU 75 92 -- 117* CA 8.0* 8.0* -- 8.2* AST 12 13 -- 10 ALT 15 15 -- 12 AP 142* 159* -- 140* TBILI 1.0 0.8 -- 1.0 TP 5.4* 5.5* -- 5.5* ALB 2.1* 2.2* -- 2.1* Recent Labs 07/01/17 2318 07/02/17 2336 07/04/17 0040 08/01/17 0015 08/01/17 2346 08/03/17 0130 WBC 17.35* < > 3.52 < > 0.55* < > <0.10* <0.10* <0.10* RBC 2.47* < > 2.09* < > 2.23* < > 2.65* 2.63* 2.78* HB 7.4* < > 6.4* < > 6.7* < > 7.6* 7.6* 8.1* HCT 22.8* < > 19.2* < > 19.9* < > 21.6* 21.0* 22.7* PLT 12* < > 16* < > 7* < > 23* 15* 22* NEUTROPERC 13.2* -- 25.7* -- 32.5* -- -- -- -- LYMPHPERC 6.1* -- 5.3* -- 5.0* -- -- -- -- MONOPERC 0.9* -- 0.9* -- 10.0* -- -- -- -- BASOPERC 0.0 -- 0.0 -- 0.0 -- -- -- -- EOSPERC 0.0* -- 0.0* -- 0.0* -- -- -- -- < > = values in this interval not displayed. Meds: Reviewed on rounds, see current MAR for medication list SUMMARY OF PATIENT'S HOSPITALIZATION History of Present Illness: (from H&P) Rhea Hutchison is a 51-year-old woman with a history of COPD, depression, hypothyroidism, and AML diagnosed in late 2015 after she presented with pleuritic chest pain and shortness of br eath in addition to profound leukocytosis. Her disease was initially managed with 7+3+ Dasa tinib, course gated by neutropenic fevers, C. difficile, nodular groundglass opacities sudeep rning for invasive fungal infection (although galactomannan negative), treated with Isavucon azole -> Voriconazole. She was reinduced with Cytarabine and entered CR1. She subsequently relapsed in February 2017 started on FLAG-Arlette salvage-->CR2. Her course was subsequently c omplicated by bacterial pneumonia, otherwise recovered well Patient presents as a transfer from outside hospital ([facility]) where she pres ented with body aches and profound fatigue, anemic with new leukocytosis. Repeat bone marro w biopsy concerning for relapsed AML (blasts positive for CD 117, CD33). In the interim sin ce her initial admission, the patient endorses development of new new acute onset pleuritic left-sided chest pain. She states that this chest pain is stabbing, 5-6 out of 10 in intens ity. It is accompanied by a degree of resting dyspnea. Patient also endorses nagging cough productive of white/yellow sputum of approximately 1 week's duration. She denies constitut ional symptoms including fevers, chills, night sweats. She denies new palpitations. She de nies new oral lesions or odynophagia. She does endorse a degree of ongoing nausea but state s that that is baseline for her. She denies emesis. Endorses a degree of constipation. De nies deep new complaints. She does endorse a developing petechial rash over bilateral lo wer extremities, as well as her upper back. She denies new adenopathy. Hospitalization History: Hematology: #Relapsed Flt3 AML: Had salvage FLAG-Arlette + Midostaurin and Azacitidine bridge while awaitin g SCT now with relapse. Pertinent Diagnostics: -BM Bx 06/21/17 ([facility] [id number]): -Results: 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 myelogenous leukemia (60%); Blasts positive for CD117 and CD 33, negative for CD34, CD71, CD61, CD3 and PAX-5. -Cytogenetics: Normal -Genetrails: NPM1, DNMT3A, NRAS, TET2, FLT3 TKD mutations -06/30 peripheral blood flow: Recurrent acute myeloid leukemia (87% blasts) -08/01/17 BMBx: -Results: hypocellular marrow (5%) with 80% blasts -Cytogenetics: PENDING -Genetrails: PENDING Treatment -Chemotherapy regimen: Arlette + Maurizio-C, started 07/01/17 -Idarubicin 12 mg/m2 daily x 3 days -Cytarabine 1500 mg/m2 CI IV daily x 4 days. -Sorafenib authorization was denied, consider mylotarg for subsequent chemo cycles. -Chemo Day: 34 Patient is currently not a transplant candidate, but if it were to change, brother is a match #Pancytopenia secondary to chemotherapy: -See supportive care #Supportive Care: Growth factor: no growth factors required at this time Labs: Continue to check CBC daily Transfusion parameters: -Transfuse PRBCs for HCT <21% if asymptomatic -Transfuse PPH for platelet count <10,000 sooner PRN s/s bleeding Cardiovascular: Prechemo TTE on 06/29/17 shows EF of 65-70% #Hx of Hypertension: continues on home anti-hypertensives -Amlodipine 10mg daily -Lisinopril 5mg daily Pulmonary: #COPD: continues on home inhalers -Spiriva 18mcg daily -Albuterol PRN #Multifocal PNA (see ID section) GI: #Abdominal pain: multifactorial, likely secondary to constipation, uncomplicated proctitis, and HSM. 06/29 CT AP showed uncomplicated proctitis, hepatosplenomegaly, and stool in rectum. Resolved. #Transaminitis with hyperbilirubinemia, possibly d/t idarubicin, AML with liver infiltrates or Zosyn. Monitor. #SWAPNIL, no emesis: controlled -Antiemetics PRN #GERD: worse on 07/23 -Maalox PRN -Omeprazole to 40mg daily #Diarrhea, likely due to chemotherapy: resolving. -Imodium PRN /Renal: #Overactive bladder: chronic issue -Oxybutynin CR 15mg daily Neuro/Psych: #Depression/anxiety -Cymbalta 90mg daily -Lorazepam PRN anxiety Endocrine: #Hypothyroidism: -Synthroid 37.5mcg daily Derm: #Rash: most consistent with drug rash. Derm consulted on 07/16 and diagnosed her with neutro philic eccrine hidradenitis most likely 05/31 to cytarabine. Rash resolved. -On face: triamcinolone 0.1% ointment BID x 3 days only. Then switch to hydrocortisone 2.5 % ointment BID, 07/17-07/23 -On body: triamcinolone 0.1% ointment BID, 07/17-07/23 Infectious Disease: #Non-neutropenic fever, with septic picture 06/29 with tachycardia, tachypnea. Afebrile at th e time, however spiked a fever on 07/01. Localizing symptoms include pleuritic pain and abdomi nal pain. Bld cx NGTD. 06/29 CTA showed left pleural effusion and adjacent atelectasis, no PE or consolidations. 06/29 CT AP showed uncomplicated proctitis, HSM with scattered areas of li maria m AML infiltration, extramedullary hematopoiesis or microabscesses -s/p zosyn (06/29- 07/17) -s/p Levofloxacin (07/17-07/21) switched with neutropenic fevers/pseudomonas bacteremia #Neutropenic fever: noted on 07/20. Bld x 1 positive for pseudomonas. CXR neg. Replaced PI CC 07/25 -Zosyn (07/21- ) continue for 14 day course (08/03) and until ANC recovery -Plan to switch Zosyn to Zerbaxa + Ambisome, given lung lesions, if decompensates #Pseudomonas bacteremia: bld cx x 1 from 07/20 positive. Resistant to cipro and meropenem b ut sensitive to zosyn. Repeat cx from 07/21 shows NGTD. PICC pulled 07/22 -ID following. -Continue zosyn as above #Multifocal PNA: With intermittent hypoxia, obtained CXR and then CT which shows ANGELLA and R LL PNA which has progressed rapidly compared to CXR on 07/25. Serum galactomannan negative. -Consulted ID and pulmonary and will have BAL on 07/31. -Continue zosyn and posaconazole for now. #Prophylaxis: Bacterial: as above Fungal: Posaconazole, level 07/30=2.6 Viral: Acyclovir PCP: not indicated Fluid/Nutrition/Lytes: #Nutrition: Current diet -- Regular No Felihsa's yogurt or Kefir. #Fluid: 1L IVF PRN for PO intake <2L/day #Lytes: -Continue to check chemistries daily -Replace per supportive care protocol Disposition: Anticipate 4-6 week hospitalization. LUKASZ HOOD [facility] [id number] [facility] Mailcode: [email or web address] [place] [address] Kay Duarte MD - 08/02/2017 2:36 PM PDTFormatting of this note may be different from [facility] [place] original. Hematologic Malignancies/Blood and marrow Transplant Attending Note I have reviewed and agree with the previously summarized HPI, PMH, FH, SH, and ROS as docum ented in the detailed note of the NICOLE provider. I also performed a history and physical examination of the patient myself and agree with [facility] documented findings and plan of care. Subjective: Feels better today. Sitting up in bed-ate well, denies SOB or cough.Denies naus ea/vomiting/diarrhea/constipation. Objective: VSS On exam, I note no acute findings, patient is in no distress, tired but interactive, no ora l lesions or mucositis, RRR, +crackles at bilateral lower lobes, abdomen is benign, neuro is unremarkable, and +faint erythema on face, +small raised macular papular areas on bilateral LE. Labs and imaging reviewed and discussed with pt. Brief assessment/plan: The major issues that I am directly managing that require continued hospital admission incl ude: 1. Relapsed AML, FLT3+ : Day 33of modified Maurizio-C + Idarubicin. Still without count recove ry and BMBx planned for today. Will pursue possibility of appeal for sorafenib through [facility] a s palliative chemo option if residual disease in marrow. 2. Pancytopenia sec to chemotherapy: Standard transfusion parameters. Continue as needed. 3. Neutropenic fever secondary to Multifocal pneumonia: noted on 07/20, blood cx x1 pos for pseudomonas - cleared on 07/21. Remains afebrile. Continue Zosyn. If decompensation noted, sw itch to Zerbaxa + Ambisome given lung lesions (see below). Repeat CT imaging on 07/29 showing subpleural ANGELLA and RLL consolidations "rapidly progressed" since 07/25, with bilateral nodul es. Suspect fungal versus bacterial origin. ID and Pulm consulted. BAL performed 07/31 TRISTIN Sousa.Pt on posaconazole-level is therapeutic. Continue unless decompensation as mentioned above . 4. Goals of care: Discussed our concerns regarding infection and lack of count recovery on 07/30. Pt was tearful and expressed fear of dying. SW is following. Discussed today that we w ill know results of BM in 2-3 days. Today, we will continue the current level of support. Please refer to the NICOLE's note dated today for additional details on the specific plan and orders for today. Kay Duarte MD, MS [facility] Attending physician s total time is 35 minutes, >50% spent counseling and coordination of care. [facility] DEPARTMENT: [phone] - [facility]AC[facility] MPV Place of Service: [id number] - Inpatient Date of Service: 08/02/2017 Modifiers: None Suggested CPT: 73309 - Subsequent, Detailed/High complex 35 min ######################################################### Vitals: Systolic (24hrs), Av , Min:110 , Max:136 Diastolic (24hrs), Av, Min:60, Max:76 Pulse Av Min: 96 Max: 106 Temp Av.9 C (98.5 F) Min: 36.3 C (97.3 F) Max: 37.6 C (99.7 F) Resp Av.9 Min: 16 Max: 29 SpO2 Av.1 % Min: 85 % Max: 96 % Intake/Output Summary (Last 24 hours) at 08/01/17 1425 Last data filed at 08/01/17 1400 Gross per 24 hour Intake 1151.67 ml Output 1860 ml Net -708.33 ml Current medications: Current Facility-Administered Medications Medication Dose Route Frequency Last Rate acyclovir (ZOVIRAX) tablet 800 mg 800 mg oral DAILY amLODIPine (NORVASC) tablet 10 mg 10 mg oral DAILY DULoxetine (CYMBALTA) capsule 90 mg 90 mg oral DAILY levothyroxine tablet 37.5 mcg 37.5 mcg oral BEFORE BREAKFAST lisinopril (PRINIVIL) tablet 5 mg 5 mg oral DAILY loratadine (CLARITIN) tablet 10 mg 10 mg oral DAILY omeprazole (PRILOSEC) capsule 40 mg 40 mg oral BEFORE BREAKFAST oxybutynin CR (DITROPAN-XL) tablet 15 mg 15 mg oral DAILY piperacillin-tazobactam (ZOSYN) IV 4.5 g 4.5 g intravenous Q6H Stopped (08/02/17 1134) posaconazole DR (NOXAFIL) tablet 300 mg 300 mg oral DAILY tiotropium (SPIRIVA) inhalation 18 mcg 18 mcg inhalation DAILY Allergies: Allergies Allergen Reactions Morphine Rash and Facial Swelling Rash and facial swelling Opioids - Morphine Analogues Confusion Cefepime Rash Laboratory or other studies: Recent Labs 07/31/17 0014 07/31/17 0820 08/01/17 0015 WBC <0.10* <0.10* <0.10* HB 7.2* 9.1* 7.6* HCT 20.4* 25.8* 21.6* PLT 11* 38* 23* Recent Labs 07/30/17 0025 07/31/17 0014 08/01/17 0015 NA 136 134* 137 K 3.4 3.3* 3.0* CL 99 98 101 BICARB 30 28 24 BUN 5* 5* 4* CR 0.49* 0.45* 0.42* CA 8.4* 8.1* 8.0* MG 1.8 1.7 1.7 PO4 3.1 2.9 2.9 AST 15 11 12 ALT 19 18 15 TBILI 0.9 0.7 1.0 AP 157* 154* 142* ALB 2.4* 2.2* 2.1* TP 5.7* 5.5* 5.4* URINE CULTURE [facility] (no units) Date Value 07/01/2017 No growth (<1000 cfu/mL) after 24 hours CULTURE RESULT (no units) Date Value 07/30/2017 No growth to date. Lab Results Component Value Date APTT 38.2 (H) 08/01/2017 FIBRINOGEN 593 (H) 08/01/2017 Leatha Tapia NP - 08/02/2017 11:54 AM PDTFormatting of this note may be different f rom the original. Daily NICOLE Note - Chemotherapy Admit [facility] Attending: Kay Duarte MD [facility] Physician: Pepe Chavis MD Local Oncologist: Daniel Patterson MD PCP: Saurav Small NP Date of Admission: 06/28/17 Hematologic Malignancy: AML ID: 51 yo woman with second relapse AML, FLT3 ITD admitted for evaluation and treatment. Hx COPD, Depression/PTSD, Disorder of Thyroid, HTN, Insomnia 24 Hour Events/Current Daily Plan: -Relapsed AML, Flt3: currently Arlette + modified Maurizio-C, currently day 33. No Day 14 BMBx done as not a transplant candidate. -s/p BMBX on 08/01 in PCU, results PENDING -Sorafenib insurance authorization/appeal rejected. Consider mylotarg for subsequent chemo cycles. Currently not a transplant candidate. -Pancytopenia secondary to chemotherapy: standard transfusion parameters.Above transfusion threshold. -Neutropenic fever: noted on 07/20, restarted zosyn. Bld cx x 1 07/20 positive for pseudomon as (see below) -Pseudomonas bacteremia: bld cx x 1 from 07/20 positive. Cleared as of 07/21. Resistant to ci pro and meropenem. PICC pulled 07/22, replaced 07/25 with negative cultures. ID following. -Continue zosyn as above and continue for 14 day course and until ANC recovery. -If decompensates, switch Zosyn to Zerbaxa + Ambisome (given lung lesions) if decompensate s -Multifocal PNA with ANGELLA and RML large consolidations: developing opacitis on CXR 07/25 and has since evolved. Serum galacto negative. -Consulted ID and pulmonary, s/p BAL on 07/31, results PENDING -Supplemental O2 PRN, currently using 1.5L NC -Hypokalemia: Replace potassium today. Subjective: Feeling well this morning. Appetite is low. No new symptoms overnight. Objective: Last Vitals: BP 127/69 | Pulse 98 | Temp 37 C (98.6 F) | RR 18 | Ht 1.59 m (5' 2.6") | Wt 81.3 kg (179 lb 3.2 oz) | SpO2 92% | BMI 32.15 kg/(m^2) 24 Hour Vital Min/Max: Systolic (24hrs), Av , Min:110 , Max:136 Diastolic (24hrs), Av, Min:60, Max:85 Pulse Min: 91 Max: 111 Temp Min: 36.3 C (97.3 F) Max: 37.7 C (99.9 F) Resp Min: 16 Max: 29 SpO2 Min: 91 % Max: 99 % Intake/Output Summary (Last 24 hours) at 08/02/17 1154 Last data filed at 08/02/17 0946 Gross per 24 hour Intake 3381.67 ml Output 1983 ml Net 1398.67 ml Physical Exam: General: This is a female in no acute distress. Sitting upright in bed. HEENT: PERRL. Sclerae anicteric. No lesions noted in mouth Skin: Faint erythema noted to face. Chest: Lungs with fine crackles bilateral bases CV: RRR, no murmurs. Abdomen: S/NT/ND with NABS. No HSM appreciated. Extremities: Pulses strong and equal bilaterally. No c/c/e NeuroPsych: Alert and oriented x 3. Grossly nonfocal exam. CVC: LUE PICC site without inflammation or induration. C/D/I Laboratory Results: Recent Labs 07/31/17 0014 08/01/17 0015 08/01/17 2355 NA 134* 137 136 K 3.3* 3.0* 2.6* CL 98 101 98 BICARB 28 24 27 BUN 5* 4* 3* CR 0.45* 0.42* 0.41* GLU 114* 75 92 CA 8.1* 8.0* 8.0* AST 11 12 13 ALT 18 15 15 AP 154* 142* 159* TBILI 0.7 1.0 0.8 TP 5.5* 5.4* 5.5* ALB 2.2* 2.1* 2.2* Recent Labs 07/01/17 2318 07/02/17 2336 07/04/17 0040 07/31/17 0820 08/01/17 0015 08/01/17 2346 WBC 17.35* < > 3.52 < > 0.55* < > <0.10* <0.10* <0.10* RBC 2.47* < > 2.09* < > 2.23* < > 3.15* 2.65* 2.63* HB 7.4* < > 6.4* < > 6.7* < > 9.1* 7.6* 7.6* HCT 22.8* < > 19.2* < > 19.9* < > 25.8* 21.6* 21.0* PLT 12* < > 16* < > 7* < > 38* 23* 15* NEUTROPERC 13.2* -- 25.7* -- 32.5* -- -- -- -- LYMPHPERC 6.1* -- 5.3* -- 5.0* -- -- -- -- MONOPERC 0.9* -- 0.9* -- 10.0* -- -- -- -- BASOPERC 0.0 -- 0.0 -- 0.0 -- -- -- -- EOSPERC 0.0* -- 0.0* -- 0.0* -- -- -- -- < > = values in this interval not displayed. Meds: Reviewed on rounds, see current MAR for medication list SUMMARY OF PATIENT'S HOSPITALIZATION History of Present Illness: (from H&P) Rhea Hutchison is a 51-year-old woman with a history of COPD, depression, hypothyroidism, and AML diagnosed in late 2015 after she presented with pleuritic chest pain and shortness of br eath in addition to profound leukocytosis. Her disease was initially managed with 7+3+ Dasa tinib, course gated by neutropenic fevers, C. difficile, nodular groundglass opacities sudeep rning for invasive fungal infection (although galactomannan negative), treated with Isavucon azole -> Voriconazole. She was reinduced with Cytarabine and entered CR1. She subsequently relapsed in February 2017 started on FLAG-Arlette salvage-->CR2. Her course was subsequently c omplicated by bacterial pneumonia, otherwise recovered well Patient presents as a transfer from outside hospital ([facility]) where she pres ented with body aches and profound fatigue, anemic with new leukocytosis. Repeat bone marro w biopsy concerning for relapsed AML (blasts positive for CD 117, CD33). In the interim sin ce her initial admission, the patient endorses development of new new acute onset pleuritic left-sided chest pain. She states that this chest pain is stabbing, 5-6 out of 10 in intens ity. It is accompanied by a degree of resting dyspnea. Patient also endorses nagging cough productive of white/yellow sputum of approximately 1 week's duration. She denies constitut ional symptoms including fevers, chills, night sweats. She denies new palpitations. She de nies new oral lesions or odynophagia. She does endorse a degree of ongoing nausea but state s that that is baseline for her. She denies emesis. Endorses a degree of constipation. De nies deep new complaints. She does endorse a developing petechial rash over bilateral lo wer extremities, as well as her upper back. She denies new adenopathy. Hospitalization History: Hematology: #Relapsed Flt3 AML: Had salvage FLAG-Arlette + Midostaurin and Azacitidine bridge while awaitin g SCT now with relapse. Pertinent Diagnostics: -BM Bx 06/21/17 ([facility] [id number]): -Results: 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 myelogenous leukemia (60%); Blasts positive for CD117 and CD 33, negative for CD34, CD71, CD61, CD3 and PAX-5. -Cytogenetics: Normal -Genetrails: NPM1, DNMT3A, NRAS, TET2, FLT3 TKD mutations -06/30 peripheral blood flow: Recurrent acute myeloid leukemia (87% blasts) -08/01/17 BMBx: -Results: PENDING -Cytogenetics: PENDING -Genetrails: PENDING Treatment -Chemotherapy regimen: Arlette + Maurizio-C, started 07/01/17 -Idarubicin 12 mg/m2 daily x 3 days -Cytarabine 1500 mg/m2 CI IV daily x 4 days. -Sorafenib authorization was denied, consider mylotarg for subsequent chemo cycles. -Chemo Day: 33 Patient is currently not a transplant candidate, but if it were to change, brother is a match #Pancytopenia secondary to chemotherapy: -See supportive care #Supportive Care: Growth factor: no growth factors required at this time Labs: Continue to check CBC daily Transfusion parameters: -Transfuse PRBCs for HCT <21% if asymptomatic -Transfuse PPH for platelet count <10,000 sooner PRN s/s bleeding Cardiovascular: Prechemo TTE on 06/29/17 shows EF of 65-70% #Hx of Hypertension: continues on home anti-hypertensives -Amlodipine 10mg daily -Lisinopril 5mg daily Pulmonary: #COPD: continues on home inhalers -Spiriva 18mcg daily -Albuterol PRN #Multifocal PNA (see ID section) GI: #Abdominal pain: multifactorial, likely secondary to constipation, uncomplicated proctitis, and HSM. 06/29 CT AP showed uncomplicated proctitis, hepatosplenomegaly, and stool in rectum. Resolved. #Transaminitis with hyperbilirubinemia, possibly d/t idarubicin, AML with liver infiltrates or Zosyn. Monitor. #SWAPNIL, no emesis: controlled -Antiemetics PRN #GERD: worse on 07/23 -Maalox PRN -Omeprazole to 40mg daily #Diarrhea, likely due to chemotherapy: resolving. -Imodium PRN /Renal: #Overactive bladder: chronic issue -Oxybutynin CR 15mg daily Neuro/Psych: #Depression/anxiety -Cymbalta 90mg daily -Lorazepam PRN anxiety Endocrine: #Hypothyroidism: -Synthroid 37.5mcg daily Derm: #Rash: most consistent with drug rash. 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 Rash resolved. -On face: triamcinolone 0.1% ointment BID x 3 days only. Then switch to hydrocortisone 2.5 % ointment BID, 07/17-07/23 -On body: triamcinolone 0.1% ointment BID, 07/17-07/23 Infectious Disease: #Non-neutropenic fever, with septic picture 06/29 with tachycardia, tachypnea. Afebrile at th e time, however spiked a fever on 07/01. Localizing symptoms include pleuritic pain and abdomi nal pain. Bld cx NGTD. 3/3 CTA showed left pleural effusion and adjacent atelectasis, no PE or consolidations. 06/29 CT AP showed uncomplicated proctitis, HSM with scattered areas of li maria m AML infiltration, extramedullary hematopoiesis or microabscesses -s/p zosyn (06/29- 07/17) -s/p Levofloxacin (07/17-07/21) switched with neutropenic fevers/pseudomonas bacteremia #Neutropenic fever: noted on 07/20. Bld x 1 positive for pseudomonas. CXR neg. Replaced PI CC 07/25 -Zosyn (07/21- ) continue for 14 day course (08/03) and until ANC recovery -Plan to switch Zosyn to Zerbaxa + Ambisome, given lung lesions, if decompensates #Pseudomonas bacteremia: bld cx x 1 from 07/20 positive. Resistant to cipro and meropenem b ut sensitive to zosyn. Repeat cx from 07/21 shows NGTD. PICC pulled 07/22 -ID following. -Continue zosyn as above #Multifocal PNA: With intermittent hypoxia, obtained CXR and then CT which shows ANGELLA and R LL PNA which has progressed rapidly compared to CXR on 07/25. Serum galactomannan negative. -Consulted ID and pulmonary and will have BAL on 07/31. -Continue zosyn and posaconazole for now. #Prophylaxis: Bacterial: as above Fungal: Posaconazole, level 07/30=2.6 Viral: Acyclovir PCP: not indicated Fluid/Nutrition/Lytes: #Nutrition: Current diet -- Regular No Felisha's yogurt or Kefir. #Fluid: 1L IVF PRN for PO intake <2L/day #Lytes: -Continue to check chemistries daily -Replace per supportive care protocol Disposition: Anticipate 4-6 week hospitalization. LEATHA TAPIA NP [facility] [address] Mailcode: [email or web address] [place] [address] Kay Duarte MD - 08/01/2017 2:25 PM PDTFormatting of this note may be different from th e original. 08/01/2017 Hematologic Malignancies/Blood and marrow Transplant Attending Note I have reviewed and agree with the previously summarized HPI, PMH, FH, SH, and ROS as docum ented in the detailed note of the NICOLE provider. I also performed a history and physical examination of the patient myself and agree with th e documented findings and plan of care. Subjective: Very tired this AM. Coughing and feeling weak. Denies nausea/vomiting/diarrhea/ constipation. Objective: VSS On exam, I note no acute findings, patient is in no distress, tired but interactive, no ora l lesions or mucositis, RRR, +crackles at bilateral lower lobes, abdomen is benign, neuro is unremarkable, and +faint erythema on face, +small raised macular papular areas on bilateral LE. Labs reviewed and discussed with pt. Brief assessment/plan: The major issues that I am directly managing that require continued hospital admission incl ude: 1. Relapsed AML, FLT3+ : Day 32of modified Maurizio-C + Idarubicin. Still without count recove ry and BMBx planned for today. Will pursue possibility of appeal for sorafenib through [facility] a s palliative chemo option if residual disease in marrow. 2. Pancytopenia sec to chemotherapy: Standard transfusion parameters. Continue as needed. 3. Neutropenic fever: noted on 07/20, blood cx x1 pos for pseudomonas - cleared on 07/21. Rem ains afebrile. Continue Zosyn. If decompensation noted, switch to Zerbaxa + Ambisome given l jessika lesions (see below). 4. Multifocal pneumonia: Repeat CT imaging on 07/29 showing subpleural ANGELLA and RLL consolida tions "rapidly progressed" since 07/25, with bilateral nodules. Suspect fungal versus bacteri al origin. ID and Pulm consulted. BAL performed 07/31 PENDING.Pt on posaconazole-level is the rapeutic. Continue unless decompensation as mentioned above. 5. Goals of care: Discussed our concerns regarding infection and lack of count recovery on 07/30. Pt tearful and expressed fear of dying. SW is following. Today, we will continue the current level of support. Please refer to the NICOLE's note dated today for additional details on the specific plan and orders for today. Kay Duarte MD, MS [facility] Attending physician s total time is 35 minutes, >50% spent counseling and coordination of care. [facility] DEPARTMENT: [id number] - [facility] Place of Service: - Inpatient Date of Service: 08/01/2017 Modifiers: None Suggested CPT: 55040 - Subsequent, Detailed/High complex 35 min ######################################################### Vitals: Systolic (24hrs), Av , Min:117 , Max:142 Diastolic (24hrs), Av, Min:63, Max:85 Pulse Av Min: 96 Max: 106 Temp Av.9 C (98.5 F) Min: 36.3 C (97.3 F) Max: 37.6 C (99.7 F) Resp Av.9 Min: 16 Max: 29 SpO2 Av.1 % Min: 85 % Max: 96 % Intake/Output Summary (Last 24 hours) at 08/01/17 1425 Last data filed at 08/01/17 1400 Gross per 24 hour Intake 1151.67 ml Output 1860 ml Net -708.33 ml Current medications: Current Facility-Administered Medications Medication Dose Route Frequency Last Rate acyclovir (ZOVIRAX) tablet 800 mg 800 mg oral DAILY amLODIPine (NORVASC) tablet 10 mg 10 mg oral DAILY DULoxetine (CYMBALTA) capsule 90 mg 90 mg oral DAILY levothyroxine tablet 37.5 mcg 37.5 mcg oral BEFORE BREAKFAST lidocaine (XYLOCAINE) 4 % (40 mg/mL) mucosal solution 20 mL 20 mL Mouth/Throat INTRAPR OCEDURE ONCE lidocaine PF (XYLOCAINE MPF) 10 mg/mL (1 %) injection infiltration ONCE lisinopril (PRINIVIL) tablet 5 mg 5 mg oral DAILY loratadine (CLARITIN) tablet 10 mg 10 mg oral DAILY omeprazole (PRILOSEC) capsule 40 mg 40 mg oral BEFORE BREAKFAST oxybutynin CR (DITROPAN-XL) tablet 15 mg 15 mg oral DAILY piperacillin-tazobactam (ZOSYN) IV 4.5 g 4.5 g intravenous Q6H Stopped (08/01/17 1127) posaconazole DR (NOXAFIL) tablet 300 mg 300 mg oral DAILY tiotropium (SPIRIVA) inhalation 18 mcg 18 mcg inhalation DAILY Allergies: Allergies Allergen Reactions Morphine Rash and Facial Swelling Rash and facial swelling Opioids - Morphine Analogues Confusion Cefepime Rash Laboratory or other studies: Recent Labs 07/31/17 0014 07/31/17 0820 08/01/17 0015 WBC <0.10* <0.10* <0.10* HB 7.2* 9.1* 7.6* HCT 20.4* 25.8* 21.6* PLT 11* 38* 23* Recent Labs 07/30/17 0025 07/31/17 0014 08/01/17 0015 NA 136 134* 137 K 3.4 3.3* 3.0* CL 99 98 101 BICARB 30 28 24 BUN 5* 5* 4* CR 0.49* 0.45* 0.42* CA 8.4* 8.1* 8.0* MG 1.8 1.7 1.7 PO4 3.1 2.9 2.9 AST 15 11 12 ALT 19 18 15 TBILI 0.9 0.7 1.0 AP 157* 154* 142* ALB 2.4* 2.2* 2.1* TP 5.7* 5.5* 5.4* URINE CULTURE [facility] (no units) Date Value 07/01/2017 No growth (<1000 cfu/mL) after 24 hours CULTURE RESULT (no units) Date Value 07/30/2017 No growth to date. Lab Results Component Value Date APTT 38.2 (H) 08/01/2017 FIBRINOGEN 593 (H) 08/01/2017 Leatha Tapia NP - 08/01/2017 2:21 PM PDTFormatting of this note may be different f rom the original. Daily NICOLE Note - Chemotherapy Admit [facility] Attending: Kay Duarte MD [facility] Physician: Pepe Chavis MD Local Oncologist: Daniel Patterson MD PCP: Saurav Small NP Date of Admission: 06/28/17 Hematologic Malignancy: AML ID: 51 yo woman with second relapse AML, FLT3 ITD admitted for evaluation and treatment. Hx COPD, Depression/PTSD, Disorder of Thyroid, HTN, Insomnia 24 Hour Events/Current Daily Plan: -Relapsed AML, Flt3: currently Arlette + modified Maurizio-C, currently day 32. No Day 14 BMBx done as not a transplant candidate. -Given no count recovery and new infection, s/p BMBX on 08/01 in PCU, results PENDING -Sorafenib insurance authorization/appeal rejected. Consider ryderarg for subsequent chemo cycles. Currently not a transplant candidate. -Pancytopenia secondary to chemotherapy: standard transfusion parameters.Above transfusion threshold. -Neutropenic fever: noted on 07/20, restarted zosyn. Bld cx x 1 07/20 positive for pseudomon as (see below) -Pseudomonas bacteremia: bld cx x 1 from 07/20 positive. Cleared as of 07/21. Resistant to ci pro and meropenem. PICC pulled 07/22, replaced 07/25 with negative cultures. ID following. -Continue zosyn as above and continue for 14 day course and until ANC recovery. -If decompensates, switch Zosyn to Zerbaxa + Ambisome (given lung lesions) if decompensate s -Multifocal PNA: With intermittent hypoxia on 07/29, obtained CXR and then CT which shows ANJU L and RLL PNA which has progressed rapidly compared to CXR on 07/25. -Consulted ID and pulmonary, s/p BAL on 07/31, results PENDING -Serum galactomannan and posa level PENDING. -Supplemental O2 PRN, currently using 1.5L NC -Hypokalemia: Replace potassium today. Subjective: Feeling tired again today. Upset she is not able to eat until after the procedu re. Objective: Last Vitals: BP 130/70 | Pulse 97 | Temp 36.3 C (97.3 F) | RR 16 | Ht 1.59 m (5' 2.6") | Wt 81.3 kg (179 lb 3.2 oz) | SpO2 95% | BMI 32.15 kg/(m^2) 24 Hour Vital Min/Max: Systolic (24hrs), Av , Min:117 , Max:142 Diastolic (24hrs), Av, Min:63, Max:74 Pulse Min: 97 Max: 106 Temp Min: 36.3 C (97.3 F) Max: 37.6 C (99.7 F) Resp Min: 16 Max: 18 SpO2 Min: 85 % Max: 95 % Intake/Output Summary (Last 24 hours) at 08/01/17 1421 Last data filed at 08/01/17 1400 Gross per 24 hour Intake 1151.67 ml Output 1860 ml Net -708.33 ml Physical Exam: General: This is a female in no acute distress. Resting in bed. HEENT: PERRL. Sclerae anicteric. No lesions noted in mouth Skin: Faint erythema noted to face. Chest: Lungs with fine crackles bilateral bases CV: RRR, no murmurs. Abdomen: S/NT/ND with NABS. No HSM appreciated. Extremities: Pulses strong and equal bilaterally. No c/c/e NeuroPsych: Alert and oriented x 3. Grossly nonfocal exam. CVC: LUE PICC site without inflammation or induration. C/D/I Laboratory Results: Recent Labs 07/30/17 0025 07/31/17 0014 08/01/17 0015 NA 136 134* 137 K 3.4 3.3* 3.0* CL 99 98 101 BICARB 30 28 24 BUN 5* 5* 4* CR 0.49* 0.45* 0.42* GLU 105* 114* 75 CA 8.4* 8.1* 8.0* AST 15 11 12 ALT 19 18 15 AP 157* 154* 142* TBILI 0.9 0.7 1.0 TP 5.7* 5.5* 5.4* ALB 2.4* 2.2* 2.1* Recent Labs 07/01/17 2318 07/02/17 2336 07/04/17 0040 07/31/17 0014 07/31/17 0820 08/01/17 0015 WBC 17.35* < > 3.52 < > 0.55* < > <0.10* <0.10* <0.10* RBC 2.47* < > 2.09* < > 2.23* < > 2.48* 3.15* 2.65* HB 7.4* < > 6.4* < > 6.7* < > 7.2* 9.1* 7.6* HCT 22.8* < > 19.2* < > 19.9* < > 20.4* 25.8* 21.6* PLT 12* < > 16* < > 7* < > 11* 38* 23* NEUTROPERC 13.2* -- 25.7* -- 32.5* -- -- -- -- LYMPHPERC 6.1* -- 5.3* -- 5.0* -- -- -- -- MONOPERC 0.9* -- 0.9* -- 10.0* -- -- -- -- BASOPERC 0.0 -- 0.0 -- 0.0 -- -- -- -- EOSPERC 0.0* -- 0.0* -- 0.0* -- -- -- -- < > = values in this interval not displayed. Meds: Reviewed on rounds, see current MAR for medication list SUMMARY OF PATIENT'S HOSPITALIZATION History of Present Illness: (from H&P) Rhea Hutchison is a 51-year-old woman with a history of COPD, depression, hypothyroidism, and AML diagnosed in late 2015 after she presented with pleuritic chest pain and shortness of br eath in addition to profound leukocytosis. Her disease was initially managed with 7+3+ Dasa tinib, course gated by neutropenic fevers, C. difficile, nodular groundglass opacities sudeep rning for invasive fungal infection (although galactomannan negative), treated with Isavucon azole -> Voriconazole. She was reinduced with Cytarabine and entered CR1. She subsequently relapsed in February 2017 started on FLAG-Arlette salvage-->CR2. Her course was subsequently c omplicated by bacterial pneumonia, otherwise recovered well Patient presents as a transfer from outside hospital ([facility]) where she pres ented with body aches and profound fatigue, anemic with new leukocytosis. Repeat bone marro w biopsy concerning for relapsed AML (blasts positive for CD 117, CD33). In the interim sin ce her initial admission, the patient endorses development of new new acute onset pleuritic left-sided chest pain. She states that this chest pain is stabbing, 5-6 out of 10 in intens ity. It is accompanied by a degree of resting dyspnea. Patient also endorses nagging cough productive of white/yellow sputum of approximately 1 week's duration. She denies constitut ional symptoms including fevers, chills, night sweats. She denies new palpitations. She de nies new oral lesions or odynophagia. She does endorse a degree of ongoing nausea but state s that that is baseline for her. She denies emesis. Endorses a degree of constipation. De nies deep new complaints. She does endorse a developing petechial rash over bilateral lo wer extremities, as well as her upper back. She denies new adenopathy. Hospitalization History: Hematology: #Relapsed Flt3 AML: Had salvage FLAG-Arlette + Midostaurin and Azacitidine bridge while awaitin g SCT now with relapse. Pertinent Diagnostics: -BM Bx 06/21/17 ([facility] [id number]): -Results: 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 myelogenous leukemia (60%); Blasts positive for CD117 and CD 33, negative for CD34, CD71, CD61, CD3 and PAX-5. -Cytogenetics: Normal -Genetrails: NPM1, DNMT3A, NRAS, TET2, FLT3 TKD mutations -06/30 peripheral blood flow: Recurrent acute myeloid leukemia (87% blasts) -08/01/17 BMBx: -Results: PENDING -Cytogenetics: PENDING -Genetrails: PENDING Treatment -Chemotherapy regimen: Arlette + Maurizio-C, started 07/01/17 -Idarubicin 12 mg/m2 daily x 3 days -Cytarabine 1500 mg/m2 CI IV daily x 4 days. -Sorafenib authorization was denied, consider mylotarg for subsequent chemo cycles. -Chemo Day: 32 Patient is currently not a transplant candidate, but if it were to change, brother is a match #Pancytopenia secondary to chemotherapy: -See supportive care #Supportive Care: Growth factor: no growth factors required at this time Labs: Continue to check CBC daily Transfusion parameters: -Transfuse PRBCs for HCT <21% if asymptomatic -Transfuse PPH for platelet count <10,000 sooner PRN s/s bleeding Cardiovascular: Prechemo TTE on 06/29/17 shows EF of 65-70% #Hx of Hypertension: continues on home anti-hypertensives -Amlodipine 10mg daily -Lisinopril 5mg daily Pulmonary: #COPD: continues on home inhalers -Spiriva 18mcg daily -Albuterol PRN #Multifocal PNA: With intermittent hypoxia on 07/29, obtained CXR and then CT which shows ANJU L and RLL PNA which has progressed rapidly compared to CXR on 07/25. -Consulted ID and pulmonary and s/p BAL on 07/31, results PENDING -Serum galactomannan and posa level PENDING. -See ID section for abx management GI: #Abdominal pain: multifactorial, likely secondary to constipation, uncomplicated proctitis, and HSM. 06/29 CT AP showed uncomplicated proctitis, hepatosplenomegaly, and stool in rectum -Continue bowel regimen senna BID; MOM, Miralax, and Lactulose PRN -Fentanyl IV and oxycodone PO PRN pain #Transaminitis with hyperbilirubinemia, possibly d/t idarubicin, AML with liver infiltrates or Zosyn. Monitor. #SWAPNIL, no emesis: controlled -Antiemetics PRN #GERD: worse on 07/23 -Maalox PRN -Omeprazole to 40mg daily -Consider restarting carafate if heartburn persists #Diarrhea, likely due to chemotherapy: resolving. -Imodium PRN /Renal: #Overactive bladder: chronic issue -Oxybutynin CR 15mg daily Neuro/Psych: #Depression/anxiety -Cymbalta 90mg daily -Lorazepam PRN anxiety Endocrine: #Hypothyroidism: -Synthroid 37.5mcg daily Derm: #Rash: most consistent with drug rash. Derm consulted on 07/16 and diagnosed her with neutro philic eccrine hidradenitis most likely / to cytarabine. Rash resolved. -On face: triamcinolone 0.1% ointment BID x 3 days only. Then switch to hydrocortisone 2.5 % ointment BID, 07/17-07/23 -On body: triamcinolone 0.1% ointment BID, 07/17-07/23 Infectious Disease: #Non-neutropenic fever, with septic picture 06/29 with tachycardia, tachypnea. Afebrile at th e time, however spiked a fever on 07/01. Localizing symptoms include pleuritic pain and abdomi nal pain. Bld cx NGTD. 06/29 CTA showed left pleural effusion and adjacent atelectasis, no PE or consolidations. 06/29 CT AP showed uncomplicated proctitis, HSM with scattered areas of li maria m AML infiltration, extramedullary hematopoiesis or microabscesses -s/p zosyn (06/29- 07/17) -s/p Levofloxacin (07/17-07/21) switched with neutropenic fevers/pseudomonas bacteremia #Neutropenic fever: noted on 07/20. Bld x 1 positive for pseudomonas. CXR neg. Replaced PI CC 07/25 -Zosyn (07/21- ) continue for 14 day course (08/03) and until ANC recovery -Plan to switch Zosyn to Zerbaxa + Ambisome, given lung lesions, if decompensates #Pseudomonas bacteremia: bld cx x 1 from 07/20 positive. Resistant to cipro and meropenem b ut sensitive to zosyn. Repeat cx from 07/21 shows NGTD. PICC pulled 07/22 -ID following. -Continue zosyn as above #Multifocal PNA: With intermittent hypoxia, obtained CXR and then CT which shows ANGELLA and R LL PNA which has progressed rapidly compared to CXR on 07/25. -Consulted ID and pulmonary and will have BAL on 07/31. -Serum galactomannan and posa level PENDING. -Continue zosyn and posaconazole for now. #Prophylaxis: Bacterial: as above Fungal: Posaconazole, level 07/30=2.6 Viral: Acyclovir PCP: not indicated Fluid/Nutrition/Lytes: #Nutrition: Current diet -- Regular No Felisha's yogurt or Kefir. #Fluid: 1L IVF PRN for PO intake <2L/day #Lytes: -Continue to check chemistries daily -Replace per supportive care protocol Disposition: Anticipate 4-6 week hospitalization. LEATHA TAPIA NP [place] [id number] [place] [address] Mailcode: v13 [place] [address] Kay Duarte MD - 07/31/2017 2:40 PM PDTFormatting of this note may be different from [facility] original. 07/31/2017 Hematologic Malignancies/Blood and marrow Transplant Attending Note I have reviewed and agree with the previously summarized HPI, PMH, FH, SH, and ROS as docum ented in the detailed note of the NICOLE provider. I also performed a history and physical examination of the patient myself and agree with [facility] documented findings and plan of care. Subjective: Very tired after bronch early this AM. No new complaints. Objective: VSS On exam, I note no acute findings, patient is in no distress, sleeping but easily arousable , no oral lesions or mucositis, RRR, +crackles at bilateral lower lobes, abdomen is benign, neuro is unremarkable, and +faint erythema on face. Labs reviewed and discussed with pt. Brief assessment/plan: The major issues that I am directly managing that require continued hospital admission incl ude: 1. Relapsed AML, FLT3+ : Day 31of modified Maurizio-C + Idarubicin. Still without count recove ry. Will have BMBx tomorrow in PCU - NPO after midnight. 2. Pancytopenia sec to chemotherapy: Standard transfusion parameters. Continue as needed. 3. Neutropenic fever: noted on 07/20, blood cx x1 pos for pseudomonas - cleared on 07/21. Rem ains afebrile. Continue Zosyn. If decompensation noted, switch to Zerbaxa + Ambisome given l jessika lesions (see below). 4. Multifocal pneumonia: Repeat CT imaging on 07/29 showing subpleural ANGELLA and RLL consolida tions "rapidly progressed" since 07/25, with bilateral nodules. Suspect fungal versus bacteri al origin. ID and Pulm consulted. BAL performed 07/31 PENDING. 5. Goals of care: Discussed our concerns regarding infection and lack of count recovery on 07/30. Pt tearful and expressed fear of dying. SW is following. Today, we will continue the current level of support. Please refer to the NICOLE's note dated today for additional details on the specific plan and orders for today. Kay Duarte MD, [facility] for Hematologic Malignancies Attending physician s total time is 35 minutes, >50% spent counseling and coordination of care. [facility] DEPARTMENT: [id number] - [facility] FACULTY MPR[address] Place of Service: - Inpatient Date of Service: 07/31/2017 Modifiers: None Suggested CPT: 08042 - Subsequent, Detailed/High complex 35 min ######################################################### Vitals: Systolic (24hrs), Av , Min:107 , Max:135 Diastolic (24hrs), Av, Min:65, Max:81 Pulse Av.6 Min: 95 Max: 102 Temp Av.1 C (98.8 F) Min: 36.7 C (98.1 F) Max: 37.5 C (99.5 F) Resp Av.6 Min: 16 Max: 18 SpO2 Av.8 % Min: 90 % Max: 96 % Intake/Output Summary (Last 24 hours) at 07/31/17 1440 Last data filed at 07/31/17 0800 Gross per 24 hour Intake 1681 ml Output 830 ml Net 851 ml Current medications: Current Facility-Administered Medications Medication Dose Route Frequency Last Rate acyclovir (ZOVIRAX) tablet 800 mg 800 mg oral DAILY amLODIPine (NORVASC) tablet 10 mg 10 mg oral DAILY DULoxetine (CYMBALTA) capsule 90 mg 90 mg oral DAILY levothyroxine tablet 37.5 mcg 37.5 mcg oral BEFORE BREAKFAST lidocaine (XYLOCAINE) 4 % (40 mg/mL) mucosal solution 20 mL 20 mL Mouth/Throat INTRAPR OCEDURE ONCE lisinopril (PRINIVIL) tablet 5 mg 5 mg oral DAILY loratadine (CLARITIN) tablet 10 mg 10 mg oral DAILY omeprazole (PRILOSEC) capsule 40 mg 40 mg oral BEFORE BREAKFAST oxybutynin CR (DITROPAN-XL) tablet 15 mg 15 mg oral DAILY piperacillin-tazobactam (ZOSYN) IV 4.5 g 4.5 g intravenous Q6H Stopped (07/31/17 1140) posaconazole DR (NOXAFIL) tablet 300 mg 300 mg oral DAILY tiotropium (SPIRIVA) inhalation 18 mcg 18 mcg inhalation DAILY Allergies: Allergies Allergen Reactions Morphine Rash and Facial Swelling Rash and facial swelling Opioids - Morphine Analogues Confusion Cefepime Rash Laboratory or other studies: Recent Labs 07/30/17 0026 07/31/17 0014 07/31/17 0820 WBC <0.10* <0.10* <0.10* HB 7.9* 7.2* 9.1* HCT 22.3* 20.4* 25.8* PLT 20* 11* 38* Recent Labs 07/29/17 0110 07/30/17 0025 07/31/17 0014 NA 136 136 134* K 3.2* 3.4 3.3* CL 99 99 98 BICARB 30 30 28 BUN 5* 5* 5* CR 0.43* 0.49* 0.45* CA 8.4* 8.4* 8.1* MG 1.8 1.8 1.7 PO4 3.3 3.1 2.9 AST 14 15 11 ALT 20 19 18 TBILI 0.8 0.9 0.7 AP 150* 157* 154* ALB 2.3* 2.4* 2.2* TP 5.7* 5.7* 5.5* URINE CULTURE [facility] (no units) Date Value 07/01/2017 No growth (<1000 cfu/mL) after 24 hours CULTURE RESULT (no units) Date Value 07/21/2017 Final Report:No Bacteria or Yeast isolated at 5 days. Lab Results Component Value Date APTT 41.9 (H) 07/29/2017 FIBRINOGEN 631 (H) 07/29/2017 Leatha Tapia, EMPLOYEE RELATIONS ASSISTANT - 07/31/2017 12:28 PM PDTFormatting of this note may be different f rom the original. Daily NICOLE Note - Chemotherapy Admit Center for Hematologic Malignancies Attending: Kay Duarte MD [facility] Physician: Pepe Chavis MD Local Oncologist: Daniel Patterson MD PCP: Saurav Small NP Date of Admission: 06/28/17 Hematologic Malignancy: AML ID: 51 yo woman with second relapse AML, FLT3 ITD admitted for evaluation and treatment. Hx COPD, Depression/PTSD, Disorder of Thyroid, HTN, Insomnia 24 Hour Events/Current Daily Plan: -Relapsed AML, Flt3: currently Arlette + modified Maurizio-C, currently day 31. No Day 14 BMBx done as not a transplant candidate. -Given no count recovery and new infection, plan for BMBX on 08/01 in PCU at 2 PM, NPO after midnight. -Sorafenib insurance authorization/appeal rejected. Consider mylotarg for subsequent chemo cycles. Currently not a transplant candidate. -Pancytopenia secondary to chemotherapy: standard transfusion parameters. PRBCs transfused today. -Neutropenic fever: noted on 07/20, restarted zosyn. Bld cx x 1 07/20 positive for pseudomon as (see below) -Pseudomonas bacteremia: bld cx x 1 from 07/20 positive. Cleared as of 07/21. Resistant to ci pro and meropenem. PICC pulled 07/22, replaced 07/25 with negative cultures. ID following. -Continue zosyn as above and continue for 14 day course and until ANC recovery. -If decompensate switch Zosyn to Zerbaxa + Ambisome (given lung lesions) if decompensates -Multifocal PNA: With intermittent hypoxia on 07/29, obtained CXR and then CT which shows ANJU L and RLL PNA which has progressed rapidly compared to CXR on 07/25. -Consulted ID and pulmonary, s/p BAL on 07/31, results PENDING -Serum galactomannan and posa level PENDING. -Supplemental O2 PRN, currently using 1.5L NC -Hypokalemia: Replace potassium today. Subjective: Tired after bronch. Objective: Last Vitals: BP 118/65 | Pulse 98 | Temp 36.7 C (98.1 F) | RR 16 | Ht 1.59 m (5' 2.6") | Wt 81.6 kg (180 lb) | SpO2 95% | BMI 32.3 kg/(m^2) 24 Hour Vital Min/Max: Systolic (24hrs), Av , Min:107 , Max:135 Diastolic (24hrs), Av, Min:65, Max:81 Pulse Min: 95 Max: 102 Temp Min: 36.7 C (98.1 F) Max: 37.5 C (99.5 F) Resp Min: 16 Max: 18 SpO2 Min: 90 % Max: 96 % Intake/Output Summary (Last 24 hours) at 07/31/17 1228 Last data filed at 07/31/17 0800 Gross per 24 hour Intake 2661 ml Output 1010 ml Net 1651 ml Physical Exam: General: This is a female in no acute distress. Lying in bed. HEENT: PERRL. Sclerae anicteric. No lesions noted in mouth Skin: Faint erythema noted to face. Chest: Crackles at bilateral bases and faint crackles at RUL. CV: RRR, no murmurs. Abdomen: S/NT/ND with NABS. No HSM appreciated. Extremities: Pulses strong and equal bilaterally. No c/c/e NeuroPsych: Alert and oriented x 3. Grossly nonfocal exam. CVC: LUE PICC site without inflammation or induration. C/D/I Laboratory Results: Recent Labs 07/29/17 0110 07/30/17 0025 07/31/17 0014 NA 136 136 134* K 3.2* 3.4 3.3* CL 99 99 98 BICARB 30 30 28 BUN 5* 5* 5* CR 0.43* 0.49* 0.45* GLU 107* 105* 114* CA 8.4* 8.4* 8.1* AST 14 15 11 ALT 20 19 18 AP 150* 157* 154* TBILI 0.8 0.9 0.7 TP 5.7* 5.7* 5.5* ALB 2.3* 2.4* 2.2* Recent Labs 07/01/17 2318 07/02/17 2336 07/04/17 0040 07/30/17 0026 07/31/17 0014 07/31/17 0820 WBC 17.35* < > 3.52 < > 0.55* < > <0.10* <0.10* <0.10* RBC 2.47* < > 2.09* < > 2.23* < > 2.75* 2.48* 3.15* HB 7.4* < > 6.4* < > 6.7* < > 7.9* 7.2* 9.1* HCT 22.8* < > 19.2* < > 19.9* < > 22.3* 20.4* 25.8* PLT 12* < > 16* < > 7* < > 20* 11* 38* NEUTROPERC 13.2* -- 25.7* -- 32.5* -- -- -- -- LYMPHPERC 6.1* -- 5.3* -- 5.0* -- -- -- -- MONOPERC 0.9* -- 0.9* -- 10.0* -- -- -- -- BASOPERC 0.0 -- 0.0 -- 0.0 -- -- -- -- EOSPERC 0.0* -- 0.0* -- 0.0* -- -- -- -- < > = values in this interval not displayed. Meds: Reviewed on rounds, see current MAR for medication list SUMMARY OF PATIENT'S HOSPITALIZATION History of Present Illness: (from H&P) Rhea Hutchison is a 51-year-old woman with a history of COPD, depression, hypothyroidism, and AML diagnosed in late 2015 after she presented with pleuritic chest pain and shortness of br eath in addition to profound leukocytosis. Her disease was initially managed with 7+3+ Dasa tinib, course gated by neutropenic fevers, C. difficile, nodular groundglass opacities sudeep rning for invasive fungal infection (although galactomannan negative), treated with Isavucon azole -> Voriconazole. She was reinduced with Cytarabine and entered CR1. She subsequently relapsed in February 2017 started on FLAG-Arlette salvage-->CR2. Her course was subsequently c omplicated by bacterial pneumonia, otherwise recovered well Patient presents as a transfer from outside hospital ([facility]) where she pres ented with body aches and profound fatigue, anemic with new leukocytosis. Repeat bone marro w biopsy concerning for relapsed AML (blasts positive for CD 117, CD33). In the interim sin ce her initial admission, the patient endorses development of new new acute onset pleuritic left-sided chest pain. She states that this chest pain is stabbing, 5-6 out of 10 in intens ity. It is accompanied by a degree of resting dyspnea. Patient also endorses nagging cough productive of white/yellow sputum of approximately 1 week's duration. She denies constitut ional symptoms including fevers, chills, night sweats. She denies new palpitations. She de nies new oral lesions or odynophagia. She does endorse a degree of ongoing nausea but state s that that is baseline for her. She denies emesis. Endorses a degree of constipation. De nies deep new complaints. She does endorse a developing petechial rash over bilateral lo wer extremities, as well as her upper back. She denies new adenopathy. Hospitalization History: Hematology: #Relapsed Flt3 AML: Had salvage FLAG-Arlette + Midostaurin and Azacitidine bridge while awaitin g SCT now with relapse. Pertinent Diagnostics: -BM Bx 06/21/17 ([facility] [id number]): -Results: 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 myelogenous leukemia (60%); Blasts positive for CD117 and CD 33, negative for CD34, CD71, CD61, CD3 and PAX-5. -Cytogenetics: Normal -Genetrails: NPM1, DNMT3A, NRAS, TET2, FLT3 TKD mutations -06/30 peripheral blood flow and GeneTrails: -Flow: Recurrent acute myeloid leukemia (87% blasts) -GeneTrails not drawn Treatment -Chemotherapy regimen: Arlette + Maurizio-C, started 07/01/17 -Idarubicin 12 mg/m2 daily x 3 days -Cytarabine 1500 mg/m2 CI IV daily x 4 days. -Sorafenib authorization was denied, consider mylotarg for subsequent chemo cycles. -Chemo Day: 31 Patient is currently not a transplant candidate, but if it were to change, brother is a match #Pancytopenia secondary to chemotherapy: -See supportive care #Supportive Care: Growth factor: no growth factors required at this time Labs: Continue to check CBC daily Transfusion parameters: -Transfuse PRBCs for HCT <21% if asymptomatic -Transfuse PPH for platelet count <10,000 sooner PRN s/s bleeding Cardiovascular: Prechemo TTE on 06/29/17 shows EF of 65-70% #Hx of Hypertension: continues on home anti-hypertensives -Amlodipine 10mg daily -Lisinopril 5mg daily Pulmonary: #COPD: continues on home inhalers -Spiriva 18mcg daily -Albuterol PRN #Multifocal PNA: With intermittent hypoxia on 07/29, obtained CXR and then CT which shows ANJU L and RLL PNA which has progressed rapidly compared to CXR on 07/25. -Consulted ID and pulmonary and s/p BAL on 07/31, results PENDING -Serum galactomannan and posa level PENDING. -See ID section for abx management GI: #Abdominal pain: multifactorial, likely secondary to constipation, uncomplicated proctitis, and HSM. 06/29 CT AP showed uncomplicated proctitis, hepatosplenomegaly, and stool in rectum -Continue bowel regimen senna BID; MOM, Miralax, and Lactulose PRN -Fentanyl IV and oxycodone PO PRN pain #Transaminitis with hyperbilirubinemia, possibly d/t idarubicin, AML with liver infiltrates or Zosyn. Monitor. #SWAPNIL, no emesis: controlled -Antiemetics PRN #GERD: worse on 07/23 -Maalox PRN -Omeprazole to 40mg daily -Consider restarting carafate if heartburn persists #Diarrhea, likely due to chemotherapy: resolving. -Imodium PRN /Renal: #Overactive bladder: chronic issue -Oxybutynin CR 15mg daily Neuro/Psych: #Depression/anxiety -Cymbalta 90mg daily -Lorazepam PRN anxiety Endocrine: #Hypothyroidism: -Synthroid 37.5mcg daily Derm: #Rash: most consistent with drug rash. Derm consulted on 07/16 and diagnosed her with neutro philic eccrine hidradenitis most likely / to cytarabine. Rash resolved. -On face: triamcinolone 0.1% ointment BID x 3 days only. Then switch to hydrocortisone 2.5 % ointment BID, 07/17-07/23 -On body: triamcinolone 0.1% ointment BID, 07/17-07/23 Infectious Disease: #Non-neutropenic fever, with septic picture 06/29 with tachycardia, tachypnea. Afebrile at th e time, however spiked a fever on 07/01. Localizing symptoms include pleuritic pain and abdomi nal pain. Bld cx NGTD. 06/29 CTA showed left pleural effusion and adjacent atelectasis, no PE or consolidations. 06/29 CT AP showed uncomplicated proctitis, HSM with scattered areas of li maria m AML infiltration, extramedullary hematopoiesis or microabscesses -s/p zosyn (06/29- 07/17) -s/p Levofloxacin (07/17-07/21) switched with neutropenic fevers/pseudomonas bacteremia #Neutropenic fever: noted on 07/20. Bld x 1 positive for pseudomonas. CXR neg. Replaced PI CC 07/25 -Zosyn (07/21- ) continue for 14 day course (08/03) and until ANC recovery -Plan to switch Zosyn to Zerbaxa + Ambisome, given lung lesions, if decompensates #Pseudomonas bacteremia: bld cx x 1 from 07/20 positive. Resistant to cipro and meropenem b ut sensitive to zosyn. Repeat cx from 07/21 shows NGTD. PICC pulled 07/22 -ID following. -Continue zosyn as above #Multifocal PNA: With intermittent hypoxia, obtained CXR and then CT which shows ANGELLA and R LL PNA which has progressed rapidly compared to CXR on 07/25. -Consulted ID and pulmonary and will have BAL on 07/31. -Serum galactomannan and posa level PENDING. -Continue zosyn and posaconazole for now. #Prophylaxis: Bacterial: as above Fungal: Posaconazole, level 07/30-PENDING Viral: Acyclovir PCP: not indicated Fluid/Nutrition/Lytes: #Nutrition: Current diet -- Regular No Felisha's yogurt or Kefir. #Fluid: 1L IVF PRN for PO intake <2L/day #Lytes: -Continue to check chemistries daily -Replace per supportive care protocol Disposition: TBD. Anticipate 4-6 week hospitalization. LEATHA TAPIA NP [facility] [id number] [facility] Mailcode: [facility] [place] [address] Shayna Gardiner PA - 07/30/2017 3:59 PM PDTFormatting of this note may be different fro m the original. Daily NICOLE Note - Chemotherapy Admit Center for Hematologic Malignancies Attending: Kay Duarte MD [facility] Physician: Pepe Chavis MD Local Oncologist: Daniel Patterson MD PCP: Saurav Small NP Date of Admission: 06/28/17 Hematologic Malignancy: AML ID: 51 yo woman with second relapse AML, FLT3 ITD admitted for evaluation and treatment. Hx COPD, Depression/PTSD, Disorder of Thyroid, HTN, Insomnia 24 Hour Events/Current Daily Plan: -Relapsed AML, Flt3: currently Arlette + modified Maurizio-C, currently day 30. No Day 14 BMBx done as not a transplant candidate. Given no count recovery and new infection, plan for BMBX on 08/01 in PCU at 2 PM. -Sorafenib insurance authorization/appeal rejected. Consider mylotarg for subsequent chemo cycles. Currently not a transplant candidate. -Pancytopenia secondary to chemotherapy: standard transfusion parameters. There is no blood product support required at this time. -Neutropenic fever: noted on 07/20, restarted zosyn. Bld cx x 1 07/20 positive for pseudomon as. -Pseudomonas bacteremia: bld cx x 1 from 07/20 positive. Cleared as of 07/21. Resistant to ci pro and meropenem. PICC pulled 07/22, replaced 07/25 with negative cultures. ID following. Continue zosyn as above and continue for 14 day course and until ANC recovery. -Multifocal PNA: With intermittent hypoxia on 07/29, obtained CXR and then CT which shows ANJU L and RLL PNA which has progressed rapidly compared to CXR on 07/25. Consulted ID and pulmon yakelin and will have BAL on 07/31. Serum galactomannan and posa level PENDING. -Hypokalemia: Replace potassium today. Subjective: Feeling well but does have a cough which seems to be getting worse with some sp utum production overnight. Very upset that she has a new pneumonia. Objective: Last Vitals: BP 107/81 | Pulse 96 | Temp 36.7 C (98.1 F) | RR 18 | Ht 1.59 m (5' 2.6") | Wt 81.6 kg (180 lb) | SpO2 91% | BMI 32.3 kg/(m^2) 24 Hour Vital Min/Max: Systolic (24hrs), Av , Min:107 , Max:134 Diastolic (24hrs), Av, Min:69, Max:81 Pulse Min: 87 Max: 96 Temp Min: 36.4 C (97.5 F) Max: 37.1 C (98.8 F) Resp Min: 15 Max: 18 SpO2 Min: 89 % Max: 96 % Intake/Output Summary (Last 24 hours) at 07/30/17 1559 Last data filed at 07/30/17 1525 Gross per 24 hour Intake 2861 ml Output 1455 ml Net 1406 ml Physical Exam: General: This is a female in no acute distress. Sitting on edge of bed. HEENT: PERRL. Sclerae anicteric. No lesions noted in mouth Skin: Faint erythema noted to face. Chest: Crackles at R base, otherwise clear. CV: RRR, no murmurs. Abdomen: S/NT/ND with NABS. No HSM appreciated. Extremities: Pulses strong and equal bilaterally. No c/c/e NeuroPsych: Alert and oriented x 3. Grossly nonfocal exam. CVC: LUE PICC site without inflammation or induration. C/D/I Laboratory Results: Recent Labs 07/28/17 0014 07/29/17 0110 07/30/17 0025 NA 138 136 136 K 2.9* 3.2* 3.4 CL 100 99 99 BICARB 28 30 30 BUN 5* 5* 5* CR 0.46* 0.43* 0.49* GLU 103* 107* 105* CA 8.6 8.4* 8.4* AST 15 14 15 ALT 21 20 19 AP 150* 150* 157* TBILI 0.9 0.8 0.9 TP 5.8* 5.7* 5.7* ALB 2.4* 2.3* 2.4* Recent Labs 07/01/17 2318 07/02/17 2336 07/04/17 0040 07/28/17 0014 07/29/17 0110 07/30/17 0026 WBC 17.35* < > 3.52 < > 0.55* < > <0.10* <0.10* <0.10* RBC 2.47* < > 2.09* < > 2.23* < > 2.69* 2.43* 2.75* HB 7.4* < > 6.4* < > 6.7* < > 7.7* 7.1* 7.9* HCT 22.8* < > 19.2* < > 19.9* < > 21.5* 19.5* 22.3* PLT 12* < > 16* < > 7* < > 15* 7* 20* NEUTROPERC 13.2* -- 25.7* -- 32.5* -- -- -- -- LYMPHPERC 6.1* -- 5.3* -- 5.0* -- -- -- -- MONOPERC 0.9* -- 0.9* -- 10.0* -- -- -- -- BASOPERC 0.0 -- 0.0 -- 0.0 -- -- -- -- EOSPERC 0.0* -- 0.0* -- 0.0* -- -- -- -- < > = values in this interval not displayed. Meds: Reviewed on rounds, see current MAR for medication list SUMMARY OF PATIENT'S HOSPITALIZATION History of Present Illness: (from H&P) Rhea Hutchison is a 51-year-old woman with a history of COPD, depression, hypothyroidism, and AML diagnosed in late 2015 after she presented with pleuritic chest pain and shortness of br eath in addition to profound leukocytosis. Her disease was initially managed with 7+3+ Dasa tinib, course gated by neutropenic fevers, C. difficile, nodular groundglass opacities sudeep rning for invasive fungal infection (although galactomannan negative), treated with Isavucon azole -> Voriconazole. She was reinduced with Cytarabine and entered CR1. She subsequently relapsed in February 2017 started on FLAG-Arlette salvage-->CR2. Her course was subsequently c omplicated by bacterial pneumonia, otherwise recovered well Patient presents as a transfer from outside hospital ([facility]) where she pres ented with body aches and profound fatigue, anemic with new leukocytosis. Repeat bone marro w biopsy concerning for relapsed AML (blasts positive for CD 117, CD33). In the interim sin ce her initial admission, the patient endorses development of new new acute onset pleuritic left-sided chest pain. She states that this chest pain is stabbing, 5-6 out of 10 in intens ity. It is accompanied by a degree of resting dyspnea. Patient also endorses nagging cough productive of white/yellow sputum of approximately 1 week's duration. She denies constitut ional symptoms including fevers, chills, night sweats. She denies new palpitations. She de nies new oral lesions or odynophagia. She does endorse a degree of ongoing nausea but state s that that is baseline for her. She denies emesis. Endorses a degree of constipation. De nies deep new complaints. She does endorse a developing petechial rash over bilateral lo wer extremities, as well as her upper back. She denies new adenopathy. Hospitalization History: Hematology: #Relapsed Flt3 AML: Had salvage FLAG-Arlette + Midostaurin and Azacitidine bridge while awaitin g SCT now with relapse. Pertinent Diagnostics: -BM Bx 06/21/17 ([facility] [id number]): -Results: 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 myelogenous leukemia (60%); Blasts positive for CD117 and CD 33, negative for CD34, CD71, CD61, CD3 and PAX-5. -Cytogenetics: Normal -Genetrails: NPM1, DNMT3A, NRAS, TET2, FLT3 TKD mutations -3/4 peripheral blood flow and GeneTrails: -Flow: Recurrent acute myeloid leukemia (87% blasts) -GeneTrails not drawn Treatment -Chemotherapy regimen: Arlette + Maurizio-C, started 07/01/17 -Idarubicin 12 mg/m2 daily x 3 days -Cytarabine 1500 mg/m2 CI IV daily x 4 days. -Sorafenib authorization was denied -Chemo Day: 30 Patient is currently not a transplant candidate, but if it were to change, brother is a match #Pancytopenia secondary to chemotherapy: -See supportive care #Supportive Care: Growth factor: no growth factors required at this time Labs: Continue to check CBC daily Transfusion parameters: -Transfuse PRBCs for HCT <21% if asymptomatic -Transfuse PPH for platelet count <10,000 sooner PRN s/s bleeding Cardiovascular: Prechemo TTE on 06/29/17 shows EF of 65-70% #Hx of Hypertension: continues on home anti-hypertensives -Amlodipine 10mg daily -Lisinopril 5mg daily Pulmonary: #COPD: continues on home inhalers -Spiriva 18mcg daily -Albuterol PRN #Multifocal PNA: With intermittent hypoxia on 07/29, obtained CXR and then CT which shows ANJU L and RLL PNA which has progressed rapidly compared to CXR on 07/25. -Consulted ID and pulmonary and will have BAL on 07/31. -Serum galactomannan and posa leve l PENDING. -See ID section for abx management GI: #Abdominal pain: multifactorial, likely secondary to constipation, uncomplicated proctitis, and HSM. 06/29 CT AP showed uncomplicated proctitis, hepatosplenomegaly, and stool in rectum -Continue bowel regimen senna BID; MOM, Miralax, and Lactulose PRN -Fentanyl IV and oxycodone PO PRN pain #Transaminitis with hyperbilirubinemia, possibly d/t idarubicin, AML with liver infiltrates or Zosyn. Monitor. #SWAPNIL, no emesis: controlled -Antiemetics PRN #GERD: worse on 07/23 -Maalox PRN -Omeprazole to 40mg daily -Consider restarting carafate if heartburn persists #Diarrhea, likely due to chemotherapy: resolving. -Imodium PRN /Renal: #Overactive bladder: chronic issue -Oxybutynin CR 15mg daily Neuro/Psych: #Depression/anxiety -Cymbalta 90mg daily -Lorazepam PRN anxiety Endocrine: #Hypothyroidism: -Synthroid 37.5mcg daily Derm: #Rash: most consistent with drug rash. Derm consulted on 07/16 and diagnosed her with neutro philic eccrine hidradenitis most likely /2 to cytarabine. Rash resolved. -On face: triamcinolone 0.1% ointment BID x 3 days only. Then switch to hydrocortisone 2.5 % ointment BID, 07/17-07/23 -On body: triamcinolone 0.1% ointment BID, 07/17-07/23 Infectious Disease: #Non-neutropenic fever, with septic picture 06/29 with tachycardia, tachypnea. Afebrile at th e time, however spiked a fever on 07/01. Localizing symptoms include pleuritic pain and abdomi nal pain. Bld cx NGTD. 06/29 CTA showed left pleural effusion and adjacent atelectasis, no PE or consolidations. 06/29 CT AP showed uncomplicated proctitis, HSM with scattered areas of li maria m AML infiltration, extramedullary hematopoiesis or microabscesses -s/p zosyn (06/29- 07/17) -s/p Levofloxacin (07/17-07/21) switched with neutropenic fevers/pseudomonas bacteremia #Neutropenic fever: noted on 07/20. Bld x 1 positive for pseudomonas. CXR neg. Replaced PI CC 07/25 -Zosyn (07/21- ) continue for 14 day course (08/03) and until ANC recovery #Pseudomonas bacteremia: bld cx x 1 from 07/20 positive. Resistant to cipro and meropenem b ut sensitive to zosyn. Repeat cx from 07/21 shows NGTD. PICC pulled 07/22 -ID following. -Continue zosyn as above #Multifocal PNA: With intermittent hypoxia, obtained CXR and then CT which shows ANGELLA and R LL PNA which has progressed rapidly compared to CXR on 07/25. -Consulted ID and pulmonary and will have BAL on 07/31. -Serum galactomannan and posa level PENDING. -Continue zosyn and posaconazole for now. #Prophylaxis: Bacterial: as above Fungal: Posaconazole, level 07/30-PENDING Viral: Acyclovir PCP: not indicated Fluid/Nutrition/Lytes: #Nutrition: Current diet -- Regular No Felisha's yogurt or Kefir. #Fluid: 1L IVF PRN for PO intake <2L/day #Lytes: -Continue to check chemistries daily -Replace per supportive care protocol Disposition: TBD. Anticipate 4-6 week hospitalization. [facility] [id number] [facility] Mailcode: [email or web address] [place] [address] Kay Duarte MD - 07/30/2017 1:01 PM PDTFormatting of this note may be different from e original. 07/30/2017 Hematologic Malignancies/Blood and marrow Transplant Attending Note I have reviewed and agree with the previously summarized HPI, PMH, FH, SH, and ROS as docum ented in the detailed note of the NICOLE provider. I also performed a history and physical examination of the patient myself and agree with [facility] documented findings and plan of care. Subjective: Feeling okay today - didn't sleep very well. Now will productive cough overnight. Denies na usea/vomiting/diarrhea/constipation. Objective: VSS On exam, I note no acute findings, patient is in no distress, no oral lesions or mucositis, RRR, +crackles in LLL, abdomen is benign, neuro is unremarkable and faint erythema on face otherwise skin unremarkable. Labs reviewed and discussed with pt. Brief assessment/plan: The major issues that I am directly managing that require continued hospital admission incl ude: 1. Relapsed AML, FLT3+ : Day 30 of modified Maurizio-C + Idarubicin. Still without count recover y - tentative plan is for BMBx later this week. 2. Pancytopenia sec to chemotherapy: Standard transfusion parameters. Continue as needed. 3. Neutropenic fever: noted on 07/20, blood cx x1 pos for pseudomonas - cleared on 07/21. Rem ains afebrile. Continue Zosyn. 4. Pneumonia: Repeat CT imaging on 07/29 showing subpleural ANGELLA and RLL consolidations "rapi dly progressive" since 07/25, with bilateral nodules. Suspect fungal versus bacterial origin. Plan is for Pulm consult w/ BAL today or tomorrow - pt NPO. Will consult ID. Goals of care: Discussed with Rhea that we are very concerned about infection and her lac k of count recovery. She cried and said she was worried about dying.Offered support and merline ntact with MARKUS Britton to process her feelings. Today, we will continue the current level of support. Please refer to the NICOLE's note dated today for additional details on the specific plan and orders for today. Kay Duarte MD, MS [facility] Attending physician s total time is 35 minutes, >50% spent counseling and coordination of care. [facility] DEPARTMENT: [id number] - [facility]ACULT[facility] MPV Place of Service: - Inpatient Date of Service: 07/30/2017 Modifiers: None Suggested CPT: 12035 - Subsequent, Detailed/High complex 35 min ######################################################### Vitals: Systolic (24hrs), Av , Min:116 , Max:134 Diastolic (24hrs), Av, Min:69, Max:82 Pulse Av.5 Min: 91 Max: 97 Temp Av.9 C (98.4 F) Min: 36.8 C (98.2 F) Max: 37.1 C (98.8 F) Resp Av.2 Min: 15 Max: 18 SpO2 Av.3 % Min: 89 % Max: 97 % Intake/Output Summary (Last 24 hours) at 07/30/17 1301 Last data filed at 07/30/17 1000 Gross per 24 hour Intake 2871 ml Output 1480 ml Net 1391 ml Current medications: Current Facility-Administered Medications Medication Dose Route Frequency Last Rate acyclovir (ZOVIRAX) tablet 800 mg 800 mg oral DAILY amLODIPine (NORVASC) tablet 10 mg 10 mg oral DAILY DULoxetine (CYMBALTA) capsule 90 mg 90 mg oral DAILY levothyroxine tablet 37.5 mcg 37.5 mcg oral BEFORE BREAKFAST lisinopril (PRINIVIL) tablet 5 mg 5 mg oral DAILY loratadine (CLARITIN) tablet 10 mg 10 mg oral DAILY omeprazole (PRILOSEC) capsule 40 mg 40 mg oral BEFORE BREAKFAST oxybutynin CR (DITROPAN-XL) tablet 15 mg 15 mg oral DAILY piperacillin-tazobactam (ZOSYN) IV 4.5 g 4.5 g intravenous Q6H Stopped (07/30/17 0900) posaconazole DR (NOXAFIL) tablet 300 mg 300 mg oral DAILY tiotropium (SPIRIVA) inhalation 18 mcg 18 mcg inhalation DAILY Allergies: Allergies Allergen Reactions Morphine Rash and Facial Swelling Rash and facial swelling Opioids - Morphine Analogues Confusion Cefepime Rash Laboratory or other studies: Recent Labs 07/28/17 0014 07/29/17 0110 07/30/17 0026 WBC <0.10* <0.10* <0.10* HB 7.7* 7.1* 7.9* HCT 21.5* 19.5* 22.3* PLT 15* 7* 20* Recent Labs 07/28/17 0014 07/29/17 0110 07/30/17 0025 NA 138 136 136 K 2.9* 3.2* 3.4 CL 100 99 99 BICARB 28 30 30 BUN 5* 5* 5* CR 0.46* 0.43* 0.49* CA 8.6 8.4* 8.4* MG 1.8 1.8 1.8 PO4 3.4 3.3 3.1 AST 15 14 15 ALT 21 20 19 TBILI 0.9 0.8 0.9 AP 150* 150* 157* ALB 2.4* 2.3* 2.4* TP 5.8* 5.7* 5.7* URINE CULTURE [facility] (no units) Date Value 07/01/2017 No growth (<1000 cfu/mL) after 24 hours CULTURE RESULT (no units) Date Value 07/21/2017 Final Report:No Bacteria or Yeast isolated at 5 days. Lab Results Component Value Date APTT 41.9 (H) 07/29/2017 FIBRINOGEN 631 (H) 07/29/2017 Kay Duarte MD - 07/29/2017 12:51 PM PDTFormatting of this note may be different from th e original. 07/29/2017 Hematologic Malignancies/Blood and marrow Transplant Attending Note I have reviewed and agree with the previously summarized HPI, PMH, FH, SH, and ROS as docum ented in the detailed note of the NICOLE provider. I also performed a history and physical examination of the patient myself and agree with th e documented findings and plan of care. Subjective: Overall the patients is doing well. No new complaints. Denies nausea/vomiting/diarrhea/cons tipation. Objective: VSS On exam, I note no acute findings, patient is in no distress, no oral lesions or mucositis, RRR, lungs are clear, abdomen is benign, neuro is unremarkable and faint erythema on face o therwise skin unremarkable. Labs reviewed and discussed with pt. Brief assessment/plan: The major issues that I am directly managing that require continued hospital admission incl ude: 1. Relapsed AML, FLT3+ : Day 29 of modified Maurizio-C + Idarubicin. Still without count recover y, will discuss with Dr. Chavis with possible BMBx later this week. 2. Pancytopenia sec to chemotherapy: Standard transfusion parameters. Continue as needed. 3. Neutropenic fever: noted on 07/20, blood cx x1 pos for pseudomonas - cleared on 07/21. CXR neg. Continue Zosyn. Today, we will continue the current level of support. Please refer to the NICOLE's note dated today for additional details on the specific plan and orders for today. Kay Duarte MD, MS [facility] Attending physician s total time is 35 minutes, >50% spent counseling and coordination of care. [facility] DEPARTMENT: [phone] - [facility] M[facility] Place of Service: - Inpatient Date of Service: 07/29/2017 Modifiers: None Suggested CPT: 62285 - Subsequent, Detailed/High complex 35 min ######################################################### Vitals: Systolic (24hrs), Av , Min:112 , Max:130 Diastolic (24hrs), Av, Min:64, Max:82 Pulse Av.3 Min: 84 Max: 101 Temp Av.9 C (98.4 F) Min: 36.3 C (97.3 F) Max: 37.3 C (99.1 F) Resp Av.3 Min: 15 Max: 17 SpO2 Av.6 % Min: 84 % Max: 90 % Intake/Output Summary (Last 24 hours) at 07/29/17 1251 Last data filed at 07/29/17 1000 Gross per 24 hour Intake 2878 ml Output 3080 ml Net -202 ml Current medications: Current Facility-Administered Medications Medication Dose Route Frequency Last Rate acyclovir (ZOVIRAX) tablet 800 mg 800 mg oral DAILY amLODIPine (NORVASC) tablet 10 mg 10 mg oral DAILY DULoxetine (CYMBALTA) capsule 90 mg 90 mg oral DAILY levothyroxine tablet 37.5 mcg 37.5 mcg oral BEFORE BREAKFAST lisinopril (PRINIVIL) tablet 5 mg 5 mg oral DAILY loratadine (CLARITIN) tablet 10 mg 10 mg oral DAILY omeprazole (PRILOSEC) capsule 40 mg 40 mg oral BEFORE BREAKFAST oxybutynin CR (DITROPAN-XL) tablet 15 mg 15 mg oral DAILY piperacillin-tazobactam (ZOSYN) IV 4.5 g 4.5 g intravenous Q6H Stopped (07/29/17 0912) posaconazole DR (NOXAFIL) tablet 300 mg 300 mg oral DAILY tiotropium (SPIRIVA) inhalation 18 mcg 18 mcg inhalation DAILY Allergies: Allergies Allergen Reactions Morphine Rash and Facial Swelling Rash and facial swelling Opioids - Morphine Analogues Confusion Cefepime Rash Laboratory or other studies: Recent Labs 07/27/17 0019 07/28/17 0014 07/29/17 0110 WBC <0.10* <0.10* <0.10* HB 8.1* 7.7* 7.1* HCT 22.2* 21.5* 19.5* PLT 26* 15* 7* Recent Labs 07/27/17 0019 07/28/17 0014 07/29/17 0110 NA 141 138 136 K 3.2* 2.9* 3.2* CL 103 100 99 BICARB 30 28 30 BUN 6 5* 5* CR 0.46* 0.46* 0.43* CA 8.5* 8.6 8.4* MG 1.8 1.8 1.8 PO4 3.1 3.4 3.3 AST 16 15 14 ALT 20 21 20 TBILI 0.9 0.9 0.8 AP 148* 150* 150* ALB 2.4* 2.4* 2.3* TP 5.7* 5.8* 5.7* URINE CULTURE [facility] (no units) Date Value 07/01/2017 No growth (<1000 cfu/mL) after 24 hours CULTURE RESULT (no units) Date Value 07/21/2017 Final Report:No Bacteria or Yeast isolated at 5 days. Lab Results Component Value Date APTT 41.9 (H) 07/29/2017 FIBRINOGEN 631 (H) 07/29/2017 Shayna Gardiner PA - 07/29/2017 10:05 AM PDTFormatting of this note may be different fro m the original. Daily NICOLE Note - Chemotherapy Admit [facility] Attending: Kar Aggarwal MD [facility] Physician: Pepe Chavis MD Local Oncologist: Daniel Patterson MD PCP: Saurav Small NP Date of Admission: 06/28/17 Hematologic Malignancy: AML ID: 51 yo woman with second relapse AML, FLT3 ITD admitted for evaluation and treatment. Hx COPD, Depression/PTSD, Disorder of Thyroid, HTN, Insomnia 24 Hour Events/Current Daily Plan: -Relapsed AML, Flt3: currently Arlette + modified Maurizio-C, currently day 29. No Day 14 BMBx done as not a transplant candidate. -Sorafenib insurance authorization/appeal rejected. Consider mylotarg for subsequent chemo cycles. Currently not a transplant candidate. -Pancytopenia secondary to chemotherapy: standard transfusion parameters. 1U PRBCs and 1U P PH today. -Neutropenic fever: noted on 07/20, restarted zosyn. Bld cx x 1 07/20 positive for pseudomon as. CXR neg for consolidation. -Pseudomonas bacteremia: bld cx x 1 from 07/20 positive. Cleared as of 07/21. Resistant to ci pro and meropenem. PICC pulled 07/22, replaced 07/25 with negative cultures. ID following. Continue zosyn as above and continue for 14 day course and until ANC recovery -Nocturnal hypoxia noted 07/26, likely r/t COPD: Improved with deep breathing. CXR 07/25 with out abnormality. Continues on room air, monitor. -Hypokalemia: Replace potassium today. Subjective: Feeling well this morning. Denies new complaints. Objective: Last Vitals: BP 121/72 | Pulse 101 | Temp 37.3 C (99.1 F) | RR 17 | Ht 1.59 m (5' 2.6") | Wt 81.6 kg (180 lb) | SpO2 86% | BMI 32.3 kg/(m^2) 24 Hour Vital Min/Max: Systolic (24hrs), Av , Min:112 , Max:130 Diastolic (24hrs), Av, Min:64, Max:82 Pulse Min: 84 Max: 101 Temp Min: 36.3 C (97.3 F) Max: 37.3 C (99.1 F) Resp Min: 15 Max: 18 SpO2 Min: 84 % Max: 92 % Intake/Output Summary (Last 24 hours) at 07/29/17 1005 Last data filed at 07/29/17 0912 Gross per 24 hour Intake 3158 ml Output 2430 ml Net 728 ml Physical Exam: General: This is a female in no acute distress. Sitting on edge of bed. HEENT: PERRL. Sclerae anicteric. No lesions noted in mouth Skin: Faint erythema noted to face. Chest: Lungs clear to auscultation bilat. CV: RRR, no murmurs. Abdomen: S/NT/ND with NABS. No HSM appreciated. Extremities: Pulses strong and equal bilaterally. No c/c/e NeuroPsych: Alert and oriented x 3. Grossly nonfocal exam. CVC: RUE PICC site without inflammation or induration. C/D/I Laboratory Results: Recent Labs 07/27/17 0019 07/28/17 0014 07/29/17 0110 NA 141 138 136 K 3.2* 2.9* 3.2* CL 103 100 99 BICARB 30 28 30 BUN 6 5* 5* CR 0.46* 0.46* 0.43* GLU 110* 103* 107* CA 8.5* 8.6 8.4* AST 16 15 14 ALT 20 21 20 AP 148* 150* 150* TBILI 0.9 0.9 0.8 TP 5.7* 5.8* 5.7* ALB 2.4* 2.4* 2.3* Recent Labs 07/01/17 2318 07/02/17 2336 07/04/17 0040 07/27/17 0019 07/28/17 0014 07/29/17 0110 WBC 17.35* < > 3.52 < > 0.55* < > <0.10* <0.10* <0.10* RBC 2.47* < > 2.09* < > 2.23* < > 2.75* 2.69* 2.43* HB 7.4* < > 6.4* < > 6.7* < > 8.1* 7.7* 7.1* HCT 22.8* < > 19.2* < > 19.9* < > 22.2* 21.5* 19.5* PLT 12* < > 16* < > 7* < > 26* 15* 7* NEUTROPERC 13.2* -- 25.7* -- 32.5* -- -- -- -- LYMPHPERC 6.1* -- 5.3* -- 5.0* -- -- -- -- MONOPERC 0.9* -- 0.9* -- 10.0* -- -- -- -- BASOPERC 0.0 -- 0.0 -- 0.0 -- -- -- -- EOSPERC 0.0* -- 0.0* -- 0.0* -- -- -- -- < > = values in this interval not displayed. Meds: Reviewed on rounds, see current MAR for medication list SUMMARY OF PATIENT'S HOSPITALIZATION History of Present Illness: (from H&P) Rhea Hutchison is a 51-year-old woman with a history of COPD, depression, hypothyroidism, and AML diagnosed in late 2015 after she presented with pleuritic chest pain and shortness of br eath in addition to profound leukocytosis. Her disease was initially managed with 7+3+ Dasa tinib, course gated by neutropenic fevers, C. difficile, nodular groundglass opacities sudeep rning for invasive fungal infection (although galactomannan negative), treated with Isavucon azole -> Voriconazole. She was reinduced with Cytarabine and entered CR1. She subsequently relapsed in February 2017 started on FLAG-Arlette salvage-->CR2. Her course was subsequently c omplicated by bacterial pneumonia, otherwise recovered well Patient presents as a transfer from outside hospital ([facility]) where she pres ented with body aches and profound fatigue, anemic with new leukocytosis. Repeat bone marro w biopsy concerning for relapsed AML (blasts positive for CD 117, CD33). In the interim sin ce her initial admission, the patient endorses development of new new acute onset pleuritic left-sided chest pain. She states that this chest pain is stabbing, 5-6 out of 10 in intens ity. It is accompanied by a degree of resting dyspnea. Patient also endorses nagging cough productive of white/yellow sputum of approximately 1 week's duration. She denies constitut ional symptoms including fevers, chills, night sweats. She denies new palpitations. She de nies new oral lesions or odynophagia. She does endorse a degree of ongoing nausea but state s that that is baseline for her. She denies emesis. Endorses a degree of constipation. De nies deep new complaints. She does endorse a developing petechial rash over bilateral lo wer extremities, as well as her upper back. She denies new adenopathy. Hospitalization History: Hematology: #Relapsed Flt3 AML: Had salvage FLAG-Arlette + Midostaurin and Azacitidine bridge while awaitin g SCT now with relapse. Pertinent Diagnostics: -BM Bx 06/21/17 ([facility] [id number]): -Results: 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 myelogenous leukemia (60%); Blasts positive for CD117 and CD 33, negative for CD34, CD71, CD61, CD3 and PAX-5. -Cytogenetics: Normal -Genetrails: NPM1, DNMT3A, NRAS, TET2, FLT3 TKD mutations -3/ peripheral blood flow and GeneTrails: -Flow: Recurrent acute myeloid leukemia (87% blasts) -GeneTrails not drawn Treatment -Chemotherapy regimen: Arlette + Maurizio-C, started 07/01/17 -Idarubicin 12 mg/m2 daily x 3 days -Cytarabine 1500 mg/m2 CI IV daily x 4 days. -Sorafenib authorization was denied -Chemo Day: 29 Patient is currently not a transplant candidate, but if it were to change, brother is a match #Pancytopenia secondary to chemotherapy: -See supportive care #Supportive Care: Growth factor: no growth factors required at this time Labs: Continue to check CBC daily Transfusion parameters: -Transfuse PRBCs for HCT <21% if asymptomatic -Transfuse PPH for platelet count <10,000 sooner PRN s/s bleeding Cardiovascular: Prechemo TTE on 06/29/17 shows EF of 65-70% #Hx of Hypertension: continues on home anti-hypertensives -Amlodipine 10mg daily -Lisinopril 5mg daily Pulmonary: #COPD: continues on home inhalers -Spiriva 18mcg daily -Albuterol PRN GI: #Abdominal pain: multifactorial, likely secondary to constipation, uncomplicated proctitis, and HSM. 06/29 CT AP showed uncomplicated proctitis, hepatosplenomegaly, and stool in rectum -Continue bowel regimen senna BID; MOM, Miralax, and Lactulose PRN -Fentanyl IV and oxycodone PO PRN pain #Transaminitis with hyperbilirubinemia, possibly d/t idarubicin, AML with liver infiltrates or Zosyn. Monitor. #SWAPNIL, no emesis: controlled -Antiemetics PRN #GERD: worse on 07/23 -Maalox PRN -Omeprazole to 40mg daily -Consider restarting carafate if heartburn persists #Diarrhea, likely due to chemotherapy: resolving. -Imodium PRN /Renal: #Overactive bladder: chronic issue -Oxybutynin CR 15mg daily Neuro/Psych: #Depression/anxiety -Cymbalta 90mg daily -Lorazepam PRN anxiety Endocrine: #Hypothyroidism: -Synthroid 37.5mcg daily Derm: #Rash: most consistent with drug rash. 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 Rash resolved. -On face: triamcinolone 0.1% ointment BID x 3 days only. Then switch to hydrocortisone 2.5 % ointment BID, 07/17-07/23 -On body: triamcinolone 0.1% ointment BID, 07/17-07/23 Infectious Disease: #Non-neutropenic fever, with septic picture 06/29 with tachycardia, tachypnea. Afebrile at th e time, however spiked a fever on 07/01. Localizing symptoms include pleuritic pain and abdomi nal pain. Bld cx NGTD. 06/29 CTA showed left pleural effusion and adjacent atelectasis, no PE or consolidations. 06/29 CT AP showed uncomplicated proctitis, HSM with scattered areas of li maria m AML infiltration, extramedullary hematopoiesis or microabscesses -s/p zosyn (06/29- 07/17) -s/p Levofloxacin (07/17-07/21) switched with neutropenic fevers/pseudomonas bacteremia #Neutropenic fever: noted on 07/20. Bld x 1 positive for pseudomonas. CXR neg. Replaced PI CC 07/25 -Zosyn (07/21- ) continue for 14 day course (08/03) and until ANC recovery #Pseudomonas bacteremia: bld cx x 1 from 07/20 positive. Resistant to cipro and meropenem b ut sensitive to zosyn. Repeat cx from 07/21 shows NGTD. PICC pulled 07/22 -ID following. -Continue zosyn as above #Prophylaxis: Bacterial: as above Fungal: Posaconazole Viral: Acyclovir PCP: not indicated Fluid/Nutrition/Lytes: #Nutrition: Current diet -- Regular No Felisha's yogurt or Kefir. #Fluid: 1L IVF PRN for PO intake <2L/day #Lytes: -Continue to check chemistries daily -Replace per supportive care protocol Disposition: TBD. Anticipate 4-6 week hospitalization LUKASZ HOOD [facility] [id number] [facility] Mailcode: [email or web address] [place] [address] Leatha Tapia NP - 07/28/2017 2:45 PM PDTFormatting of this note may be different f rom the original. Daily NICOLE Note - Chemotherapy Admit [facility] Attending: Kar Aggarwal MD [facility] Physician: Pepe Chavis MD Local Oncologist: Daniel Patterson MD PCP: Saurav Small NP Date of Admission: 06/28/17 Hematologic Malignancy: AML ID: 51 yo woman with second relapse AML, FLT3 ITD admitted for evaluation and treatment. Hx COPD, Depression/PTSD, Disorder of Thyroid, HTN, Insomnia 24 Hour Events/Current Daily Plan: -Relapsed AML, Flt3: currently Arlette + modified Maurizio-C, currently day 28. No Day 14 BMBx done as not a transplant candidate -Sorafenib insurance authorization/appeal rejected. Consider mylotarg for subsequent chemo cycles. Currently not a transplant candidate. -Pancytopenia secondary to chemotherapy: standard transfusion parameters. No transfusions i ndicated today -Neutropenic fever: noted on 07/20, restarted zosyn. Bld cx x 1 07/20 positive for pseudomon as. CXR neg for consolidation. -Pseudomonas bacteremia: bld cx x 1 from 07/20 positive. Cleared as of 07/21. Resistant to ci pro and meropenem. PICC pulled 07/22, replaced 07/25 with negative cultures. ID following. Continue zosyn as above and continue for 14 day course and until ANC recovery -Nocturnal hypoxia noted 07/26, likely r/t COPD: Improved with deep breathing. CXR 07/25 with out abnormality. Continues on room air, monitor. -Hypokalemia: Replace potassium today. Subjective: Feeling well this morning. States yesterday she felt depressed, but her mood is improved today and she plans to stay active today. Objective: Last Vitals: BP 120/72 | Pulse 90 | Temp 36.8 C (98.2 F) | RR 18 | Ht 1.59 m (5' 2.6") | Wt 81.6 kg (180 lb) | SpO2 92% | BMI 32.3 kg/(m^2) 24 Hour Vital Min/Max: Systolic (24hrs), Av , Min:120 , Max:137 Diastolic (24hrs), Av, Min:65, Max:84 Pulse Min: 88 Max: 95 Temp Min: 36.7 C (98.1 F) Max: 37.1 C (98.8 F) Resp Min: 15 Max: 18 SpO2 Min: 89 % Max: 98 % Intake/Output Summary (Last 24 hours) at 07/28/17 1445 Last data filed at 07/28/17 1423 Gross per 24 hour Intake 3750 ml Output 1730 ml Net 2020 ml Physical Exam: General: This is a female in no acute distress. Sitting on edge of bed. HEENT: PERRL. Sclerae anicteric. No lesions noted in mouth Skin: Faint erythema noted to face. Chest: Lungs clear to auscultation bilat. CV: RRR, no murmurs. Abdomen: S/NT/ND with NABS. No HSM appreciated. Extremities: Pulses strong and equal bilaterally. No c/c/e NeuroPsych: Alert and oriented x 3. Grossly nonfocal exam. CVC: RUE PICC site without inflammation or induration. C/D/I Laboratory Results: Recent Labs 07/26/17 0040 07/27/17 0019 07/28/17 0014 NA 139 141 138 K 3.1* 3.2* 2.9* CL 101 103 100 BICARB 29 30 28 BUN 8 6 5* CR 0.49* 0.46* 0.46* GLU 119* 110* 103* CA 8.5* 8.5* 8.6 AST 13 16 15 ALT 18 20 21 AP 148* 148* 150* TBILI 0.7 0.9 0.9 TP 5.9* 5.7* 5.8* ALB 2.5* 2.4* 2.4* Recent Labs 07/01/17 2318 07/02/17 2336 07/04/17 0040 07/26/17 0040 07/27/17 0019 07/28/17 0014 WBC 17.35* < > 3.52 < > 0.55* < > <0.10* <0.10* <0.10* RBC 2.47* < > 2.09* < > 2.23* < > 2.53* 2.75* 2.69* HB 7.4* < > 6.4* < > 6.7* < > 7.3* 8.1* 7.7* HCT 22.8* < > 19.2* < > 19.9* < > 20.2* 22.2* 21.5* PLT 12* < > 16* < > 7* < > 3* 26* 15* NEUTROPERC 13.2* -- 25.7* -- 32.5* -- -- -- -- LYMPHPERC 6.1* -- 5.3* -- 5.0* -- -- -- -- MONOPERC 0.9* -- 0.9* -- 10.0* -- -- -- -- BASOPERC 0.0 -- 0.0 -- 0.0 -- -- -- -- EOSPERC 0.0* -- 0.0* -- 0.0* -- -- -- -- < > = values in this interval not displayed. Meds: Reviewed on rounds, see current MAR for medication list SUMMARY OF PATIENT'S HOSPITALIZATION History of Present Illness: (from H&P) Rhea Hutchison is a 51-year-old woman with a history of COPD, depression, hypothyroidism, and AML diagnosed in late 2015 after she presented with pleuritic chest pain and shortness of br eath in addition to profound leukocytosis. Her disease was initially managed with 7+3+ Dasa tinib, course gated by neutropenic fevers, C. difficile, nodular groundglass opacities sudeep rning for invasive fungal infection (although galactomannan negative), treated with Isavucon azole -> Voriconazole. She was reinduced with Cytarabine and entered CR1. She subsequently relapsed in February 2017 started on FLAG-Arlette salvage-->CR2. Her course was subsequently c omplicated by bacterial pneumonia, otherwise recovered well Patient presents as a transfer from outside hospital ([facility]) where she pres ented with body aches and profound fatigue, anemic with new leukocytosis. Repeat bone marro w biopsy concerning for relapsed AML (blasts positive for CD 117, CD33). In the interim sin ce her initial admission, the patient endorses development of new new acute onset pleuritic left-sided chest pain. She states that this chest pain is stabbing, 5-6 out of 10 in intens ity. It is accompanied by a degree of resting dyspnea. Patient also endorses nagging cough productive of white/yellow sputum of approximately 1 week's duration. She denies constitut ional symptoms including fevers, chills, night sweats. She denies new palpitations. She de nies new oral lesions or odynophagia. She does endorse a degree of ongoing nausea but state s that that is baseline for her. She denies emesis. Endorses a degree of constipation. De nies deep new complaints. She does endorse a developing petechial rash over bilateral lo wer extremities, as well as her upper back. She denies new adenopathy. Hospitalization History: Hematology: #Relapsed Flt3 AML: Had salvage FLAG-Arlette + Midostaurin and Azacitidine bridge while awaitin g SCT now with relapse. Pertinent Diagnostics: -BM Bx 06/21/17 ([facility] [id number]): -Results: 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 myelogenous leukemia (60%); Blasts positive for CD117 and CD 33, negative for CD34, CD71, CD61, CD3 and PAX-5. -Cytogenetics: Normal -Genetrails: NPM1, DNMT3A, NRAS, TET2, FLT3 TKD mutations -06/30 peripheral blood flow and GeneTrails: -Flow: Recurrent acute myeloid leukemia (87% blasts) -GeneTrails not drawn Treatment -Chemotherapy regimen: Arlette + Maurizio-C, started 07/01/17 -Idarubicin 12 mg/m2 daily x 3 days -Cytarabine 1500 mg/m2 CI IV daily x 4 days. -Sorafenib authorization was denied -Chemo Day: 28 Patient is currently not a transplant candidate, but if it were to change, brother is a match #Pancytopenia secondary to chemotherapy: -See supportive care #Supportive Care: Growth factor: no growth factors required at this time Labs: Continue to check CBC daily Transfusion parameters: -Transfuse PRBCs for HCT <21% if asymptomatic -Transfuse PPH for platelet count <10,000 sooner PRN s/s bleeding Cardiovascular: Prechemo TTE on 06/29/17 shows EF of 65-70% #Hx of Hypertension: continues on home anti-hypertensives -Amlodipine 10mg daily -Lisinopril 5mg daily Pulmonary: #COPD: continues on home inhalers -Spiriva 18mcg daily -Albuterol PRN GI: #Abdominal pain: multifactorial, likely secondary to constipation, uncomplicated proctitis, and HSM. 06/29 CT AP showed uncomplicated proctitis, hepatosplenomegaly, and stool in rectum -Continue bowel regimen senna BID; MOM, Miralax, and Lactulose PRN -Fentanyl IV and oxycodone PO PRN pain #Transaminitis with hyperbilirubinemia, possibly d/t idarubicin, AML with liver infiltrates or Zosyn. Monitor. #SWAPNIL, no emesis: controlled -Antiemetics PRN #GERD: worse on 07/23 -Maalox PRN -Omeprazole to 40mg daily -Consider restarting carafate if heartburn persists #Diarrhea, likely due to chemotherapy: resolving. -Imodium PRN /Renal: #Overactive bladder: chronic issue -Oxybutynin CR 15mg daily Neuro/Psych: #Depression/anxiety -Cymbalta 90mg daily -Lorazepam PRN anxiety Endocrine: #Hypothyroidism: -Synthroid 37.5mcg daily Derm: #Rash: most consistent with drug rash. Derm consulted on 07/16 and diagnosed her with neutro philic eccrine hidradenitis most likely / to cytarabine. Rash resolved. -On face: triamcinolone 0.1% ointment BID x 3 days only. Then switch to hydrocortisone 2.5 % ointment BID, 07/17-07/23 -On body: triamcinolone 0.1% ointment BID, 07/17-07/23 Infectious Disease: #Non-neutropenic fever, with septic picture 06/29 with tachycardia, tachypnea. Afebrile at th e time, however spiked a fever on 07/01. Localizing symptoms include pleuritic pain and abdomi nal pain. Bld cx NGTD. 06/29 CTA showed left pleural effusion and adjacent atelectasis, no PE or consolidations. 06/29 CT AP showed uncomplicated proctitis, HSM with scattered areas of li maria m AML infiltration, extramedullary hematopoiesis or microabscesses -s/p zosyn (06/29- 07/17) -s/p Levofloxacin (07/17-07/21) switched with neutropenic fevers/pseudomonas bacteremia #Neutropenic fever: noted on 07/20. Bld x 1 positive for pseudomonas. CXR neg. Replaced PI CC 07/25 -Zosyn (07/21- ) continue for 14 day course (08/03) and until ANC recovery #Pseudomonas bacteremia: bld cx x 1 from 07/20 positive. Resistant to cipro and meropenem b ut sensitive to zosyn. Repeat cx from 07/21 shows NGTD. PICC pulled 07/22 -ID following. -Continue zosyn as above #Prophylaxis: Bacterial: as above Fungal: Posaconazole Viral: Acyclovir PCP: not indicated Fluid/Nutrition/Lytes: #Nutrition: Current diet -- Regular No Felisha's yogurt or Kefir. #Fluid: 1L IVF PRN for PO intake <2L/day #Lytes: -Continue to check chemistries daily -Replace per supportive care protocol Disposition: TBD. Anticipate 4-6 week hospitalization LEATHA TAPIA NP [facility] [id number] Mailcode: [email or web address] [place] [address] Kar Aggarwal MD - 07/28/2017 10:00 AM PDTFormatting of this note may be different fro m the original. Leukemia/Lymphoma Inpatient Attending Progress Date: 07/28/2017 I have personally seen, examined, and discussed Rhea Hutchison with the NICOLE and I agree with t he findings and recommendations as documented in the NICOLE note today. I have also personally reviewed all relevant clinical hx and data and formulated the management plan. See NICOLE note for details. Hospital course summary: Rhea Hutchison is a 51 year old female with relapsed FLT3+ AML, admitted currently for re-briana ction with Idarubacin + Maurizio-C. She was diagnosed initially in January 2016 with favorable risk NPM1+ AML. A BMBx obtained 02/14/17 showed a hypercellular marrow with 51% blasts + p romonocytes. Cytogenetics 46 XX and genetrails with mutations in NPM1, DNMT3A, NRAS, TET2, and a FLT3 TKD mutation. She was enrolled on a clinical trial (7+3 PLUS) and underwent in duction with 7 + 3+ dasatinib. Her course was complicated by pneumonia concerning for inva sive fungal infection vs atypical pneumonia, received treatment with isavuconazole and then fluconazole for a total of 12 weeks. A post-induction BMBx was consistent with CR1, and sh olivia then completed consolidation with cytarabine given at 1500 mg/m2. She was well until Feb, when she presented with fevers and body pains. A CBC showed a WBC count of 103 k, hct 13.8 and plts 10k. 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 She underwent re-induction with FLAG-Arlette; midostaurin added at day +8. A BMBx obt ained after induction on 04/04/17 was consistent with CR2. She then begain maintenance ther apy with azacitadine + midostaurin, however in June of 2017 she presented with body aches a nd was found to again have relapsed disease. She is admitted now for re-induction with arlette rubacin + modofoed Maurizio-C. Course thus far complicated by proctitis, carbapenem resistant p seudomonal bacteremia and rash. S/Interval events: Doing fine. Awaiting count recovery. O Last Vitals: BP 137/84 | Pulse 94 | Temp 37 C (98.6 F) | RR 18 | Ht 1.59 m (5' 2.6") | Wt 82.7 kg (182 lb 5.1 oz) | SpO2 92% | BMI 32.71 kg/(m^2) 24 Hour Vital Min/Max: Systolic (24hrs), Av , Min:121 , Max:138 Diastolic (24hrs), Av, Min:76, Max:84 Pulse Min: 88 Max: 102 Temp Min: 36.7 C (98.1 F) Max: 37.1 C (98.8 F) Resp Min: 15 Max: 18 SpO2 Min: 89 % Max: 98 % Intake/Output Summary (Last 24 hours) at 07/28/17 1001 Last data filed at 07/28/17 0626 Gross per 24 hour Intake 3136 ml Output 2255 ml Net 881 ml Exam per nicole Lab Results Component Value Date WBC <0.10 (L) 07/28/2017 RBC 2.69 (L) 07/28/2017 HCT 21.5 (L) 07/28/2017 HB 7.7 (L) 07/28/2017 MCV 79.9 (L) 07/28/2017 MCH 30.0 04/09/2017 MCHC 35.8 07/28/2017 PLT 15 (L) 07/28/2017 NEUTROPERC 07/28/2017 Comment: WBC <300; differential not performed. LYMPHPERC 07/28/2017 Comment: WBC <300; differential not performed. MONOPERC 07/28/2017 Comment: WBC <300; differential not performed. EOSPERC 07/28/2017 Comment: WBC <300; differential not performed. BASOPERC 07/28/2017 Comment: WBC <300; differential not performed. NEUTROPHILCO 07/28/2017 Comment: WBC <300; differential not performed. GLU 103 (H) 07/28/2017 BUN 5 (L) 07/28/2017 CR 0.46 (L) 07/28/2017 TP 5.8 (L) 07/28/2017 ALB 2.4 (L) 07/28/2017 CA 8.6 07/28/2017 TBILI 0.9 07/28/2017 AP 150 (H) 07/28/2017 AST 15 07/28/2017 NA 138 07/28/2017 K 2.9 (L) 07/28/2017 CL 100 07/28/2017 BICARB 28 07/28/2017 ALT 21 07/28/2017 URINE CULTURE OH (no units) Date Value 07/01/2017 No growth (<1000 cfu/mL) after 24 hours CULTURE RESULT (no units) Date Value 07/21/2017 Final Report:No Bacteria or Yeast isolated at 5 days. A/P: Rhea Hutchison is a 51 y.o. With relapsed AML s/p arlette plus modified maurizio-C. Course complicated by pseudomonas bacteremia. I am actively managing the following: Patients Hospital Problem List: Active Hospital Problems 1) COPD (chronic obstructive pulmonary disease) (HCC) 2) Anxiety and depression 3) Acute myeloid leukemia not having achieved remission (HCC) 4) Learning disability 5) Rash of face 6) Neutropenic fever (HCC) 7) Pancytopenia due to antineoplastic chemotherapy (HCC) 8) Transaminitis 9) Hepatosplenomegaly 10) Pleural effusion 11) Proctitis 12) Protein-calorie malnutrition, mild (HCC) 13) Immunocompromised state (HCC) 14) Chemotherapy induced diarrhea 15) hypokalemia Now doing well and awaiting count recovery. No significant changes to plan today. Continues on Zosyn. See NICOLE documentation from today for complete details. Supportive care as outlined in NPP note and our orders from today including: -antiemetics -transfusion support- none needed -electrolyte replacement-potassium -prophylactic antimicrobials CODE: FULL KAR AGGARWAL MD hydraulic technician [facility] for [facility]ologic Malignancies [facility] [place] [email or web address] [phone] Kar Aggarwal MD - 07/27/2017 4:22 PM PDTLeukemia/Lymphoma Inpatient Attending Roly shelley Date: 07/27/17 I have personally seen, examined, and discussed Rhea Hutchison with the NICOLE and I agree with t he findings and recommendations as documented in the NICOLE note today. I have also personally reviewed all relevant clinical hx and data and formulated the management plan. See NICOLE note for details. S/Interval events: no acute events. O Looks well Afebrile Still no signs of count recovery A/P: Rhea Hutchison is a 51 y.o. With relapsed AML s/p arlette plus modified maurizio-C. Course complicated by pseudomonas bacteremia. I am actively managing the following: Patients Hospital Problem List: Active Hospital Problems 1) COPD (chronic obstructive pulmonary disease) (HCC) 2) Anxiety and depression 3) Acute myeloid leukemia not having achieved remission (HCC) 4) Learning disability 5) Rash of face 6) Neutropenic fever (HCC) 7) Pancytopenia due to antineoplastic chemotherapy (HCC) 8) Transaminitis 9) Hepatosplenomegaly 10) Pleural effusion 11) Proctitis 12) Protein-calorie malnutrition, mild (HCC) 13) Immunocompromised state (HCC) 14) Chemotherapy induced diarrhea 15) hypokalemia No changes to plan today. Continues to require current level of care and ongoing management. See NICOLE documentation from today for complete details. CODE: FULL KAR AGGARWAL MD hydraulic technician [facility] Center for Hematologic Malignancies [facility] [email or web address] [phone] Leatha Tapia NP - 07/27/2017 1:18 PM PDTFormatting of this note may be different f rom the original. Daily NICOLE Note - Chemotherapy Admit [facility]ignancies Attending: Kar Aggarwal MD [facility] Physician: Pepe Chavis MD Local Oncologist: Daniel Patterson MD PCP: Saurav Small NP Date of Admission: 06/28/17 Hematologic Malignancy: AML ID: 51 yo woman with second relapse AML, FLT3 ITD admitted for evaluation and treatment. Hx COPD, Depression/PTSD, Disorder of Thyroid, HTN, Insomnia 24 Hour Events/Current Daily Plan: -Relapsed AML, Flt3: currently Arlette + modified Maurizio-C, currently day 27. No Day 14 BMBx done as not a transplant candidate -Sorafenib insurance authorization/appeal rejected. Consider mylotarg for subsequent chemo cycles. Currently not a transplant candidate. -Pancytopenia secondary to chemotherapy: standard transfusion parameters. Transfuse PRBCs a nd platelets. -Neutropenic fever: noted on 07/20, restarted zosyn. Bld cx x 1 07/20 positive for pseudomon as. CXR neg for consolidation. -Pseudomonas bacteremia: bld cx x 1 from 07/20 positive. Cleared as of 07/21. Resistant to ci pro and meropenem. PICC pulled 07/22, replaced 07/25 with negative cultures. ID following. Continue zosyn as above and continue for 14 day course and until ANC recovery -Nocturnal hypoxia noted 07/26: Improved with deep breathing. CXR 07/25 without abnormality. Continues on room air, monitor. -Hypokalemia: Replace potassium today. Subjective: Disappointed she won't be home for [facility]. Slept in this morning. Feeling well with no new symptoms. Objective: Last Vitals: BP 138/81 | Pulse 102 | Temp 36.9 C (98.4 F) | RR 18 | Ht 1.59 m (5' 2.6") | Wt 81 kg (178 lb 9.2 oz) | SpO2 92% | BMI 32.04 kg/(m^2) 24 Hour Vital Min/Max: Systolic (24hrs), Av , Min:122 , Max:138 Diastolic (24hrs), Av, Min:59, Max:81 Pulse Min: 94 Max: 107 Temp Min: 36.8 C (98.2 F) Max: 37.7 C (99.9 F) Resp Min: 16 Max: 18 SpO2 Min: 88 % Max: 94 % Intake/Output Summary (Last 24 hours) at 07/27/17 1318 Last data filed at 07/27/17 1200 Gross per 24 hour Intake 2730 ml Output 3805 ml Net -1075 ml Physical Exam: General: This is a female in no acute distress. Lying in bed, at bedsid e. HEENT: PERRL. Sclerae anicteric. No lesions noted in mouth Skin: Faint erythema noted to face. Chest: Lungs clear to auscultation bilat. CV: RRR, no murmurs. Abdomen: S/NT/ND with NABS. No HSM appreciated. Extremities: Pulses strong and equal bilaterally. No c/c/e NeuroPsych: Alert and oriented x 3. Grossly nonfocal exam. CVC: RUE PICC site without inflammation or induration. C/D/I Laboratory Results: Recent Labs 07/24/17 2347 07/26/17 0040 07/27/17 0019 NA 136 139 141 K 4.0 3.1* 3.2* CL 101 101 103 BICARB 28 29 30 BUN 7 8 6 CR 0.46* 0.49* 0.46* GLU 115* 119* 110* CA 8.6 8.5* 8.5* AST 26 13 16 ALT 17 18 20 AP 150* 148* 148* TBILI 1.0 0.7 0.9 TP 6.1* 5.9* 5.7* ALB 2.4* 2.5* 2.4* Recent Labs 07/01/17 2318 07/02/17 2336 07/04/17 0040 07/24/17 2347 07/26/17 0040 07/27/17 0019 WBC 17.35* < > 3.52 < > 0.55* < > <0.10* <0.10* <0.10* RBC 2.47* < > 2.09* < > 2.23* < > 2.70* 2.53* 2.75* HB 7.4* < > 6.4* < > 6.7* < > 7.8* 7.3* 8.1* HCT 22.8* < > 19.2* < > 19.9* < > 21.3* 20.2* 22.2* PLT 12* < > 16* < > 7* < > 46* 3* 26* NEUTROPERC 13.2* -- 25.7* -- 32.5* -- -- -- -- LYMPHPERC 6.1* -- 5.3* -- 5.0* -- -- -- -- MONOPERC 0.9* -- 0.9* -- 10.0* -- -- -- -- BASOPERC 0.0 -- 0.0 -- 0.0 -- -- -- -- EOSPERC 0.0* -- 0.0* -- 0.0* -- -- -- -- < > = values in this interval not displayed. Meds: Reviewed on rounds, see current MAR for medication list SUMMARY OF PATIENT'S HOSPITALIZATION History of Present Illness: (from H&P) Rhea Hutchison is a 51-year-old woman with a history of COPD, depression, hypothyroidism, and AML diagnosed in late 2015 after she presented with pleuritic chest pain and shortness of br eath in addition to profound leukocytosis. Her disease was initially managed with 7+3+ Dasa tinib, course gated by neutropenic fevers, C. difficile, nodular groundglass opacities sudeep rning for invasive fungal infection (although galactomannan negative), treated with Isavucon azole -> Voriconazole. She was reinduced with Cytarabine and entered CR1. She subsequently relapsed in February 2017 started on FLAG-Arlette salvage-->CR2. Her course was subsequently c omplicated by bacterial pneumonia, otherwise recovered well Patient presents as a transfer from outside hospital ([facility]) where she pres ented with body aches and profound fatigue, anemic with new leukocytosis. Repeat bone marro w biopsy concerning for relapsed AML (blasts positive for CD 117, CD33). In the interim sin ce her initial admission, the patient endorses development of new new acute onset pleuritic left-sided chest pain. She states that this chest pain is stabbing, 5-6 out of 10 in intens ity. It is accompanied by a degree of resting dyspnea. Patient also endorses nagging cough productive of white/yellow sputum of approximately 1 week's duration. She denies constitut ional symptoms including fevers, chills, night sweats. She denies new palpitations. She de nies new oral lesions or odynophagia. She does endorse a degree of ongoing nausea but state s that that is baseline for her. She denies emesis. Endorses a degree of constipation. De nies deep new complaints. She does endorse a developing petechial rash over bilateral lo wer extremities, as well as her upper back. She denies new adenopathy. Hospitalization History: Hematology: #Relapsed Flt3 AML: Had salvage FLAG-Arlette + Midostaurin and Azacitidine bridge while awaitin g SCT now with relapse. Pertinent Diagnostics: -BM Bx 06/21/17 ([facility] [id number]): -Results: 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 myelogenous leukemia (60%); Blasts positive for CD117 and CD 33, negative for CD34, CD71, CD61, CD3 and PAX-5. -Cytogenetics: Normal -Genetrails: NPM1, DNMT3A, NRAS, TET2, FLT3 TKD mutations -3/4 peripheral blood flow and GeneTrails: -Flow: Recurrent acute myeloid leukemia (87% blasts) -GeneTrails not drawn Treatment -Chemotherapy regimen: Arlette + Maurizio-C, started 07/01/17 -Idarubicin 12 mg/m2 daily x 3 days -Cytarabine 1500 mg/m2 CI IV daily x 4 days. -Sorafenib authorization was denied -Chemo Day: 27 Patient is currently not a transplant candidate, but if it were to change, brother is a match #Pancytopenia secondary to chemotherapy: -See supportive care #Supportive Care: Growth factor: no growth factors required at this time Labs: Continue to check CBC daily Transfusion parameters: -Transfuse PRBCs for HCT <21% if asymptomatic -Transfuse PPH for platelet count <10,000 sooner PRN s/s bleeding Cardiovascular: Prechemo TTE on 06/29/17 shows EF of 65-70% #Hx of Hypertension: continues on home anti-hypertensives -Amlodipine 10mg daily -Lisinopril 5mg daily Pulmonary: #COPD: continues on home inhalers -Spiriva 18mcg daily -Albuterol PRN GI: #Abdominal pain: multifactorial, likely secondary to constipation, uncomplicated proctitis, and HSM. 06/29 CT AP showed uncomplicated proctitis, hepatosplenomegaly, and stool in rectum -Continue bowel regimen senna BID; MOM, Miralax, and Lactulose PRN -Fentanyl IV and oxycodone PO PRN pain #Transaminitis with hyperbilirubinemia, possibly d/t idarubicin, AML with liver infiltrates or Zosyn. Monitor. #SWAPNIL, no emesis: controlled -Antiemetics PRN #GERD: worse on 07/23 -Maalox PRN -Omeprazole to 40mg daily -Consider restarting carafate if heartburn persists #Diarrhea, likely due to chemotherapy: resolving. -Imodium PRN /Renal: #Overactive bladder: chronic issue -Oxybutynin CR 15mg daily Neuro/Psych: #Depression/anxiety -Cymbalta 90mg daily -Lorazepam PRN anxiety Endocrine: #Hypothyroidism: -Synthroid 37.5mcg daily Derm: #Rash: most consistent with drug rash. 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 Rash resolved. -On face: triamcinolone 0.1% ointment BID x 3 days only. Then switch to hydrocortisone 2.5 % ointment BID, 07/17-07/23 -On body: triamcinolone 0.1% ointment BID, 07/17-07/23 Infectious Disease: #Non-neutropenic fever, with septic picture 06/29 with tachycardia, tachypnea. Afebrile at th e time, however spiked a fever on 07/01. Localizing symptoms include pleuritic pain and abdomi nal pain. Bld cx NGTD. 06/29 CTA showed left pleural effusion and adjacent atelectasis, no PE or consolidations. 06/29 CT AP showed uncomplicated proctitis, HSM with scattered areas of li maria m AML infiltration, extramedullary hematopoiesis or microabscesses -s/p zosyn (06/29- 07/17) -s/p Levofloxacin (07/17-07/21) switched with neutropenic fevers/pseudomonas bacteremia #Neutropenic fever: noted on 07/20. Bld x 1 positive for pseudomonas. CXR neg. Replaced PI CC 07/25 -Zosyn (07/21- ) continue for 14 day course (08/03) and until ANC recovery #Pseudomonas bacteremia: bld cx x 1 from 07/20 positive. Resistant to cipro and meropenem b ut sensitive to zosyn. Repeat cx from 07/21 shows NGTD. PICC pulled 07/22 -ID following. -Continue zosyn as above #Prophylaxis: Bacterial: as above Fungal: Posaconazole Viral: Acyclovir PCP: not indicated Fluid/Nutrition/Lytes: #Nutrition: Current diet -- Regular No Felisha's yogurt or Kefir. #Fluid: 1L IVF PRN for PO intake <2L/day #Lytes: -Continue to check chemistries daily -Replace per supportive care protocol Disposition: TBD. Anticipate 4-6 week hospitalization LEATHA TAPIA NP [place] [id number] [facility] Mailcode: [email or web address] [place], [place] [id number] Leatha Tapia NP - 07/26/2017 2:46 PM PDTFormatting of this note may be different f rom the original. Daily NICOLE Note - Chemotherapy [facility] Attending: Angelia Thompson MD [facility] Physician: Pepe Chavis MD Local Oncologist: Daniel Patterson MD PCP: Saurav Small NP Date of Admission: 06/28/17 Hematologic Malignancy: AML ID: 51 yo woman with second relapse AML, FLT3 ITD admitted for evaluation and treatment. Hx COPD, Depression/PTSD, Disorder of Thyroid, HTN, Insomnia 24 Hour Events/Current Daily Plan: -Relapsed AML, Flt3: currently Arlette + modified Maurizio-C, currently day 26. No Day 14 BMBx done as not a transplant candidate -Sorafenib insurance authorization/appeal rejected. Consider mylotarg for subsequent chemo cycles. Currently not a transplant candidate. -Pancytopenia secondary to chemotherapy: standard transfusion parameters. Transfuse PRBCs a nd platelets. -Neutropenic fever: noted on 07/20, restarted zosyn. Bld cx x 1 07/20 positive for pseudomon as. CXR neg for consolidation. -Pseudomonas bacteremia: bld cx x 1 from 07/20 positive. Cleared as of 07/21. Resistant to ci pro and meropenem. PICC pulled 07/22, replaced 07/25 with negative cultures. ID following. Continue zosyn as above and continue for 14 day course and until ANC recovery -Nocturnal hypoxia noted 07/26: Improved with deep breathing. CXR 07/25 without abnormality. Continues on room air, monitor. -Hypokalemia: Replace potassium today. Subjective: Feeling well this morning, made her granddaughter a bracelet. Did not feel shor t of breath when her oxygen saturation was low overnight. No other new symptoms. Objective: Last Vitals: BP 123/78 | Pulse 87 | Temp 36.7 C (98.1 F) | RR 18 | Ht 1.59 m (5' 2.6") | Wt 81 kg (178 lb 9.2 oz) | SpO2 92% | BMI 32.04 kg/(m^2) 24 Hour Vital Min/Max: Systolic (24hrs), Av , Min:110 , Max:128 Diastolic (24hrs), Av, Min:62, Max:82 Pulse Min: 86 Max: 98 Temp Min: 36.6 C (97.9 F) Max: 37 C (98.6 F) Resp Min: 16 Max: 18 SpO2 Min: 84 % Max: 95 % Intake/Output Summary (Last 24 hours) at 07/26/17 1446 Last data filed at 07/26/17 1400 Gross per 24 hour Intake 2878 ml Output 1055 ml Net 1823 ml Physical Exam: General: This is a female in no acute distress. Sitting in chair. HEENT: PERRL. Sclerae anicteric. No lesions noted in mouth Skin: Faint erythema noted to face. Chest: Lungs clear to auscultation bilat. CV: RRR, no murmurs. Abdomen: S/NT/ND with NABS. No HSM appreciated. Extremities: Pulses strong and equal bilaterally. No c/c/e NeuroPsych: Alert and oriented x 3. Grossly nonfocal exam. CVC: RUE PICC site without inflammation or induration. C/D/I Laboratory Results: Recent Labs 07/23/17232907/24/17234607/26/17 0040 NA 134* 136 139 K 3.1* 4.0 3.1* CL 100 101 101 BICARB 23 28 29 BUN 5* 7 8 CR 0.42* 0.46* 0.49* GLU 103* 115* 119* CA 8.5* 8.6 8.5* AST 16 26 13 ALT 19 17 18 AP 180* 150* 148* TBILI 1.2 1.0 0.7 TP 6.8 6.1* 5.9* ALB 2.9* 2.4* 2.5* Recent Labs 07/01/17231707/02/17233507/04/17 0040 07/23/17201907/24/17234607/26/17 0040 WBC 17.35* < > 3.52 < > 0.55* < > <0.10* <0.10* <0.10* RBC 2.47* < > 2.09* < > 2.23* < > 3.26* 2.70* 2.53* HB 7.4* < > 6.4* < > 6.7* < > 9.4* 7.8* 7.3* HCT 22.8* < > 19.2* < > 19.9* < > 25.4* 21.3* 20.2* PLT 12* < > 16* < > 7* < > 19* 46* 3* NEUTROPERC 13.2* -- 25.7* -- 32.5* -- -- -- -- LYMPHPERC 6.1* -- 5.3* -- 5.0* -- -- -- -- MONOPERC 0.9* -- 0.9* -- 10.0* -- -- -- -- BASOPERC 0.0 -- 0.0 -- 0.0 -- -- -- -- EOSPERC 0.0* -- 0.0* -- 0.0* -- -- -- -- < > = values in this interval not displayed. Meds: Reviewed on rounds, see current MAR for medication list SUMMARY OF PATIENT'S HOSPITALIZATION History of Present Illness: (from H&P) Rhea Hutchison is a 51-year-old woman with a history of COPD, depression, hypothyroidism, and AML diagnosed in late 2015 after she presented with pleuritic chest pain and shortness of br eath in addition to profound leukocytosis. Her disease was initially managed with 7+3+ Dasa tinib, course gated by neutropenic fevers, C. difficile, nodular groundglass opacities sudeep rning for invasive fungal infection (although galactomannan negative), treated with Isavucon azole -> Voriconazole. She was reinduced with Cytarabine and entered CR1. She subsequently relapsed in February 2017 started on FLAG-Arlette salvage-->CR2. Her course was subsequently c omplicated by bacterial pneumonia, otherwise recovered well Patient presents as a transfer from outside hospital ([facility]) where she pres ented with body aches and profound fatigue, anemic with new leukocytosis. Repeat bone marro w biopsy concerning for relapsed AML (blasts positive for CD 117, CD33). In the interim sin ce her initial admission, the patient endorses development of new new acute onset pleuritic left-sided chest pain. She states that this chest pain is stabbing, 5-6 out of 10 in intens ity. It is accompanied by a degree of resting dyspnea. Patient also endorses nagging cough productive of white/yellow sputum of approximately 1 week's duration. She denies constitut ional symptoms including fevers, chills, night sweats. She denies new palpitations. She de nies new oral lesions or odynophagia. She does endorse a degree of ongoing nausea but state s that that is baseline for her. She denies emesis. Endorses a degree of constipation. De nies deep new complaints. She does endorse a developing petechial rash over bilateral lo wer extremities, as well as her upper back. She denies new adenopathy. Hospitalization History: Hematology: #Relapsed Flt3 AML: Had salvage FLAG-Arlette + Midostaurin and Azacitidine bridge while awaitin g SCT now with relapse. Pertinent Diagnostics: -BM Bx 06/21/17 ([facility] [id number]): -Results: 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 myelogenous leukemia (60%); Blasts positive for CD117 and CD 33, negative for CD34, CD71, CD61, CD3 and PAX-5. -Cytogenetics: Normal -Genetrails: NPM1, DNMT3A, NRAS, TET2, FLT3 TKD mutations -06/30 peripheral blood flow and GeneTrails: -Flow: Recurrent acute myeloid leukemia (87% blasts) -GeneTrails not drawn Treatment -Chemotherapy regimen: Arlette + Maurizio-C, started 07/01/17 -Idarubicin 12 mg/m2 daily x 3 days -Cytarabine 1500 mg/m2 CI IV daily x 4 days. -Sorafenib authorization was denied -Chemo Day: 26 Patient is currently not a transplant candidate, but if it were to change, brother is a match #Pancytopenia secondary to chemotherapy: -See supportive care #Supportive Care: Growth factor: no growth factors required at this time Labs: Continue to check CBC daily Transfusion parameters: -Transfuse PRBCs for HCT <21% if asymptomatic -Transfuse PPH for platelet count <10,000 sooner PRN s/s bleeding Cardiovascular: Prechemo TTE on 06/29/17 shows EF of 65-70% #Hx of Hypertension: continues on home anti-hypertensives -Amlodipine 10mg daily -Lisinopril 5mg daily Pulmonary: #COPD: continues on home inhalers -Spiriva 18mcg daily -Albuterol PRN GI: #Abdominal pain: multifactorial, likely secondary to constipation, uncomplicated proctitis, and HSM. 06/29 CT AP showed uncomplicated proctitis, hepatosplenomegaly, and stool in rectum -Continue bowel regimen senna BID; MOM, Miralax, and Lactulose PRN -Fentanyl IV and oxycodone PO PRN pain #Transaminitis with hyperbilirubinemia, possibly d/t idarubicin, AML with liver infiltrates or Zosyn. Monitor. #SWAPNIL, no emesis: controlled -Antiemetics PRN #GERD: worse on 07/23 -Maalox PRN -Omeprazole to 40mg daily -Consider restarting carafate if heartburn persists #Diarrhea, likely due to chemotherapy: resolving. -Imodium PRN /Renal: #Overactive bladder: chronic issue -Oxybutynin CR 15mg daily Neuro/Psych: #Depression/anxiety -Cymbalta 90mg daily -Lorazepam PRN anxiety Endocrine: #Hypothyroidism: -Synthroid 37.5mcg daily Derm: #Rash: most consistent with drug rash. Derm consulted on 07/16 and diagnosed her with neutro philic eccrine hidradenitis most likely / to cytarabine. Rash resolved. -On face: triamcinolone 0.1% ointment BID x 3 days only. Then switch to hydrocortisone 2.5 % ointment BID, 07/17-07/23 -On body: triamcinolone 0.1% ointment BID, 07/17-07/23 Infectious Disease: #Non-neutropenic fever, with septic picture 06/29 with tachycardia, tachypnea. Afebrile at th e time, however spiked a fever on 07/01. Localizing symptoms include pleuritic pain and abdomi nal pain. Bld cx NGTD. 06/29 CTA showed left pleural effusion and adjacent atelectasis, no PE or consolidations. 06/29 CT AP showed uncomplicated proctitis, HSM with scattered areas of li maria m AML infiltration, extramedullary hematopoiesis or microabscesses -s/p zosyn (06/29- 07/17) -s/p Levofloxacin (07/17-07/21) switched with neutropenic fevers/pseudomonas bacteremia #Neutropenic fever: noted on 07/20. Bld x 1 positive for pseudomonas. CXR neg. Replaced PI CC 07/25 -Zosyn (07/21- ) continue for 14 day course and until ANC recovery #Pseudomonas bacteremia: bld cx x 1 from 07/20 positive. Resistant to cipro and meropenem b ut sensitive to zosyn. Repeat cx from 07/21 shows NGTD. PICC pulled 07/22 -ID following. -Continue zosyn as above #Prophylaxis: Bacterial: as above Fungal: reports using marijuana, risk for fungal infection. Started Posaconazole 07/04 after chemotherapy. Level adequate at 1.3 on 03/14/17 Viral: acyclovir PCP: not indicated Fluid/Nutrition/Lytes: #Nutrition: Current diet -- Regular No Felisha's yogurt or Kefir. #Fluid: 1L IVF PRN for PO intake <2L/day #Lytes: -Continue to check chemistries daily -Replace per supportive care protocol Disposition: TBD. Anticipate 4-6 week hospitalization LEATHA TAPIA NP [facility] [id number] [facility] Mailcode: [email or web address] [place], [place] [id number] Angelia Thompson MD - 07/26/2017 12:14 PM PDTFormatting of this note may be different fr om the original. Hematologic Malignancies/Bone Marrow Transplant Inpatient Attending Progress Note: Hospital course summary: Rhea Hutchison is a 51 year old female with relapsed FLT3+ AML, admitted currently for re-briana ction with Idarubacin + Maurizio-C. She was diagnosed initially in January 2016 with favorable risk NPM1+ AML. A BMBx obtained 02/14/17 showed a hypercellular marrow with 51% blasts + p romonocytes. Cytogenetics 46 XX and genetrails with mutations in NPM1, DNMT3A, NRAS, TET2, and a FLT3 TKD mutation. She was enrolled on a clinical trial (7+3 PLUS) and underwent in duction with 7 + 3+ dasatinib. Her course was complicated by pneumonia concerning for inva sive fungal infection vs atypical pneumonia, received treatment with isavuconazole and then fluconazole for a total of 12 weeks. A post-induction BMBx was consistent with CR1, and toy baker then completed consolidation with cytarabine given at 1500 mg/m2. She was well until Feb, when she presented with fevers and body pains. A CBC showed a WBC count of 103 k, hct 13.8 and plts 10k. 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 She underwent re-induction with FLAG-Arlette; midostaurin added at day +8. A BMBx obt ained after induction on 04/04/17 was consistent with CR2. She then begain maintenance ther apy with azacitadine + midostaurin, however in June of 2017 she presented with body aches a nd was found to again have relapsed disease. She is admitted now for re-induction with arlette rubacin + modofoed Maurizio-C. Course thus far complicated by proctitis, carbapenem resistant p seudomonal bacteremia and rash. I rounded today, 07/26/2017, in conjunction with the Advanced Practice Provider Leatha hartley. I saw the patient, reviewed the history and relevant studies and developed an assessment an d plan. Subjective: Feeling good today. Made a necklace and earrings for her grand-daughter yesterday, will gi ve them to her for easter. Was noted to have low oxygen saturations overnight; denies SOB o r cough today. Objective: Last Vitals: BP 123/78 | Pulse 87 | Temp 36.7 C (98.1 F) | RR 18 | Ht 1.59 m (5' 2.6") | Wt 81 kg (178 lb 9.2 oz) | SpO2 92% | BMI 32.04 kg/(m^2) Gen: sitting up in chair by window, NAD HEENT: no oral lesions Lungs: CTA bilaterally CVS: RRR no M/G/R appreciated Abd: soft, NT Skin: + petechiae at ankles, improved Neuro: CN II-XII grossly intact Brief Assessment / Plan: - AML: Admitted now with relapsed disease (second relapse), undergoing re-induction with a modified idarubacin and Maurizio-C regimen. She is currently day +26of therapy, counts aggie in at jacquelin with ANC of 0, as anticipated (given multiple rounds of prior chemotherapy). S he is overall tolerating therapy well. Sorafenib was considered given her FLT3+ disease, h owever this was not covered by insurance. No day +14 marrow obtained as no escalation of t herapy planned. Her counts are at jcaquelin, anticipate delayed recovery given multiple prior rounds of chemotherapy. She will remain in the hospital until count recovery. She complet ed therapy as below: Chemotherapy regimen:Arlette + Maurizio-C, started 07/01/17 -Idarubicin 12 mg/m2 daily x 3 days -Cytarabine 1500 mg/m2 CI IV daily x 4 days. -Sorafenib authorization was denied - Neutropenic fevers: Fever 07/21to 39.2. Blood aund urine cultures obtained; positive forpseudomonal bacteremia and sensitivities showmeropenem resistance. She was started on Meropenem initially, but transitioned to Zosyn the following morning. Will continue Zo syn for at least a 2 week treatment course or until ANC >500, whichever is longer. PICC removed, will wait for 48-72 hours of clear cultures before replacing. Of note did have no n-neutropenic fevers earlier in hospital stay on 06/29; aCT obtained 06/29 showed proctitis an d a L pleural effusion. Blood cutlures with no growth, she was not neutropenic at the time . She was started on treatment with Zosyn; although she became neutropenic her antibiotics were de-escalated to levaquin after she had completed a 2-week course of treatment for her proctitis. Now with recurrent fevers will continue IV antibiotics until ANC recovered. - Zosyn 07/21 --> - PICC removed 07/22, replaced 07/25 - Meropenem (07/20-07/21) - s/p Zosyn 06/29 - 07/17 - Noctournal hypoxemia: Unclear etiology, O2 sats today WNL while awake. If recurrence wi ll consider doing overnight pulse oximetry. - Rash: Currently resolved. Derm was consulted; they diagnosed her with neutrophilic eccr ine hidradenitis and recommended steroid creams. Appearance improved, topical creams discont inued 07/23. - Hypertension: SBP in the 100-130 range, will continue home antihypertensives at current doses. - lisinopril 5 mg PO daily - amlodipine 10 mg PO daily - COPD: Well controlled, no symptoms of SOB or cough. Will continue home inhalers. - Spiriva 18 mcg daily - albuterol prn - GERD: Secondary to associated hiatal hernia. Takes PPIs at home, symptoms better cont rolled now. Continue PPI. - Omeprazole 40 mg PO daily - Overactive Bladder: Continue homme oxybutynin - Hypothyroidism: Continue home levothyroxine - Pancytopenia: Secondary to chemotherapy. Standard transfusion parameters as below: - transfuse 1 unit PRBC for hct <21 - transfuse 1 unit plts for plt <10k ID Propylaxis: Bacterial: as above Fungal: Started Posaconazole 07/04, level 1.3 on 03/14/17 Viral: acyclovir PCP: not indicated I have updated the problem list to reflect those problems being actively managed. Active Problems: COPD (chronic obstructive pulmonary disease) (HCC) Anxiety and depression Acute myeloid leukemia not having achieved remission (HCC) Learning disability Rash of face Neutropenic fever (HCC) Pancytopenia due to antineoplastic chemotherapy (HCC) Transaminitis Hepatosplenomegaly Pleural effusion Proctitis Protein-calorie malnutrition, mild (HCC) Immunocompromised state (HCC) Chemotherapy induced diarrhea Please see the Advanced Practice Provider documentation from today for the full details reg arding the assessment and plan. Angelia Thompson MD Vitals: 24 Hour Vital Min/Max: Systolic (24hrs), Av , Min:110 , Max:131 Diastolic (24hrs), Av, Min:62, Max:82 Pulse Min: 86 Max: 98 Temp Min: 36.6 C (97.9 F) Max: 37 C (98.6 F) Resp Min: 16 Max: 18 SpO2 Min: 84 % Max: 95 % Intake/Output Summary (Last 24 hours) at 07/26/17 1214 Last data filed at 07/26/17 1000 Gross per 24 hour Intake 1738 ml Output 1205 ml Net 533 ml Labs: CBC with diff last 72 hours (or 3 results) - Refreshable Recent Labs 07/23/17201907/24/17 2347 07/26/17 0040 WBC <0.10* <0.10* <0.10* HB 9.4* 7.8* 7.3* HCT 25.4* 21.3* 20.2* PLT 19* 46* 3* Lab Results Component Value Date NA 139 07/26/2017 K 3.1 07/26/2017 CL 101 07/26/2017 BICARB 29 07/26/2017 BUN 8 07/26/2017 EGFRAFRICAN >60 07/26/2017 EGFRNONAFR >60 07/26/2017 CR 0.49 07/26/2017 GLU 119 07/26/2017 CA 8.5 07/26/2017 ANIONGAP 9 07/26/2017 ANIONALBCOR 12 07/26/2017 Lab Results Component Value Date AST 13 07/26/2017 ALT 18 07/26/2017 TBILI 0.7 07/26/2017 AP 148 07/26/2017 TP 5.9 07/26/2017 ALB 2.5 07/26/2017 Medications: acetaminophen (TYLENOL) tablet 650 mg, 650 mg, oral, Q6H PRN acyclovir (ZOVIRAX) tablet 800 mg, 800 mg, oral, DAILY albuterol (PROVENTIL, VENTOLIN) 90 mcg/actuation inhaler 1 puff, 1 puff, inhalation, Q6H AR N alteplase (CATHFLO ACTIVASE) injection 2 mg, 2 mg, Intracatheter, PRN aluminum-magnesium hydroxide-simethicone (MAALOX; MYLANTA) 200-200-20 mg/5 mL suspension 30 mL, 30 mL, oral, QID PRN amLODIPine (NORVASC) tablet 10 mg, 10 mg, oral, DAILY dextrose 50 % in water IV 25 mL, 25 mL, intravenous, PRN hupjsbnjsbUBEAI-flgzwkfvb-UKUHPD (SPECIAL MOUTHWASH) suspension (compound) 5-10 mL, 5-10 mL , oral, QID PRN diphenhydrAMINE-zinc acetate (BENADRYL ITCH STOPPING) 2-0.1 % cream, , topical, QID PRN DULoxetine (CYMBALTA) capsule 90 mg, 90 mg, oral, DAILY fentaNYL (SUBLIMAZE) injection 25-50 mcg, 25-50 mcg, intravenous, Q2H PRN glucagon (GLUCAGEN) injection 1 mg, 1 mg, intramuscular, PRN glucose chewable tablet 16 g, 16 g, oral, PRN haloperidol (HALDOL) tablet 0.5-1.5 mg, 0.5-1.5 mg, oral, Q4H PRN haloperidol lactate (HALDOL) injection 0.5-1.5 mg, 0.5-1.5 mg, intravenous, Q4H PRN lactulose (ENULAC) liquid 10 g, 15 mL, oral, TID PRN levothyroxine tablet 37.5 mcg, 37.5 mcg, oral, BEFORE BREAKFAST lisinopril (PRINIVIL) tablet 5 mg, 5 mg, oral, DAILY loperamide (IMODIUM) capsule 2-4 mg, 2-4 mg, oral, QID PRN loratadine (CLARITIN) tablet 10 mg, 10 mg, oral, DAILY LORazepam (ATIVAN) tablet 0.5 mg, 0.5 mg, oral, Q8H PRN magnesium hydroxide (MILK OF MAGNESIA) suspension 30 mL, 30 mL, oral, Q4H PRN magnesium sulfate in water IV (RTU) 4 g, 4 g, intravenous, PRN magnesium sulfate IV 8 g, 8 g, intravenous, PRN omeprazole (PRILOSEC) capsule 40 mg, 40 mg, oral, BEFORE BREAKFAST ondansetron (ZOFRAN) tablet 8 mg, 8 mg, oral, Q12H PRN oxybutynin CR (DITROPAN-XL) tablet 15 mg, 15 mg, oral, DAILY oxyCODONE (immediate release) (ROXICODONE) tablet 10-20 mg, 10-20 mg, oral, Q3H PRN piperacillin-tazobactam (ZOSYN) IV 4.5 g, 4.5 g, intravenous, Q6H polyethylene glycol (MIRALAX) packet 17 g, 17 g, oral, BID PRN [COMPLETED] posaconazole DR (NOXAFIL) tablet 300 mg, 300 mg, oral, BID FOLLOWED BY posa conazole DR (NOXAFIL) tablet 300 mg, 300 mg, oral, DAILY potassium chloride IV (peripheral line) 40 mEq, 40 mEq, intravenous, PRN OR potassium c hloride IV (peripheral line) 60 mEq, 60 mEq, intravenous, PRN potassium chloride SR (K-DUR) tablet 40 mEq, 40 mEq, oral, PRN potassium phosphate IV 30 mmol, 30 mmol, intravenous, PRN OR potassium phosphate IV 40 mmol, 40 mmol, intravenous, PRN prochlorperazine (COMPAZINE) tablet 5-10 mg, 5-10 mg, oral, Q6H PRN OR prochlorperazine (COMPAZINE) injection 5-10 mg, 5-10 mg, intravenous, Q6H PRN senna-docusate (SENOKOT S) 8.6-50 mg 2 tablet, 2 tablet, oral, BID PRN simethicone chew (MYLICON) tablet 80 mg, 80 mg, oral, TID PRN sodium chloride (OCEAN) 0.65 % nasal spray 2 spray, 2 spray, both nostrils, PRN sodium chloride 0.9% IV infusion, 1,000 mL, intravenous, PRN sodium phosphate IV 30 mmol, 30 mmol, intravenous, PRN sodium phosphate IV 40 mmol, 40 mmol, intravenous, PRN tiotropium (SPIRIVA) inhalation 18 mcg, 18 mcg, inhalation, DAILY traZODone (DESYREL) dose 25-50 mg, 25-50 mg, oral, HS PRN Leatha Tapia NP - 07/25/2017 3:33 PM PDTFormatting of this note may be different f rom the original. Daily NICOLE Note - Chemotherapy Admit [facility] Attending: Angelia Thompson MD [facility] Physician: Pepe Chavis MD Local Oncologist: Daniel Patterson MD PCP: Saurav Small NP Date of Admission: 06/28/17 Hematologic Malignancy: AML ID: 51 yo woman with second relapse AML, FLT3 ITD admitted for evaluation and treatment. Hx COPD, Depression/PTSD, Disorder of Thyroid, HTN, Insomnia 24 Hour Events/Current Daily Plan: -Relapsed AML, Flt3: currently Arlette + modified Maurizio-C, currently day 25. No Day 14 BMBx done as not a transplant candidate -Sorafenib insurance authorization/appeal rejected. Consider mylotarg for subsequent chemo cycles. Currently not a transplant candidate. -Pancytopenia secondary to chemotherapy: standard transfusion parameters. No transfusions i ndicated today. -Neutropenic fever: noted on 07/20, restarted zosyn. Bld cx x 1 07/20 positive for pseudomon as. CXR neg for consolidation. -Pseudomonas bacteremia: bld cx x 1 from 07/20 positive. Cleared as of 07/21. Resistant to ci pro and meropenem. PICC pulled 07/22, replaced 07/25 with negative cultures. ID following. Continue zosyn as above and continue for 14 day course and until ANC recovery -Hyperbilirubinemia, possibly r/t Zosyn: tbili max=1.2 on 07/24. Continue Zosyn at this time and monitor. -Lytes: Replace per protocol. No replacements indicated today. Subjective: Feeling well this morning. "Slept like a baby last night". No new symptoms. Objective: Last Vitals: BP 131/75 | Pulse 86 | Temp 36.7 C (98.1 F) | RR 16 | Ht 1.59 m (5' 2.6") | Wt 81 kg (178 lb 9.2 oz) | SpO2 93% | BMI 32.04 kg/(m^2) 24 Hour Vital Min/Max: Systolic (24hrs), Av , Min:108 , Max:134 Diastolic (24hrs), Av, Min:61, Max:81 Pulse Min: 86 Max: 98 Temp Min: 36.7 C (98.1 F) Max: 37.1 C (98.8 F) Resp Min: 14 Max: 16 SpO2 Min: 92 % Max: 96 % Intake/Output Summary (Last 24 hours) at 07/25/17 1533 Last data filed at 07/25/17 1424 Gross per 24 hour Intake 2550 ml Output 2575 ml Net -25 ml Physical Exam: General: This is a female in no acute distress. Sitting up in bed HEENT: PERRL. Sclerae anicteric. No lesions noted in mouth Skin: Faint erythema noted to face. Chest: Lungs clear to auscultation bilat. CV: RRR, no murmurs. Abdomen: S/NT/ND with NABS. No HSM appreciated. Extremities: Pulses strong and equal bilaterally. No c/c/e NeuroPsych: Alert and oriented x 3. Grossly nonfocal exam. CVC: RUE PICC site without inflammation or induration. C/D/I Laboratory Results: Recent Labs 07/22/17 2250 07/23/17 2330 07/24/17 2347 NA 134* 134* 136 K 4.6 3.1* 4.0 CL 100 100 101 BICARB 27 23 28 BUN 7 5* 7 CR 0.45* 0.42* 0.46* GLU 104* 103* 115* CA 8.7 8.5* 8.6 AST 45* 16 26 ALT 24 19 17 AP 177* 180* 150* TBILI 1.0 1.2 1.0 TP 6.7 6.8 6.1* ALB 2.9* 2.9* 2.4* Recent Labs 07/01/17 2318 07/02/17 2336 07/04/17 0040 07/23/17 0400 07/23/17201907/24/172346 WBC 17.35* < > 3.52 < > 0.55* < > <0.10* <0.10* <0.10* RBC 2.47* < > 2.09* < > 2.23* < > 2.96* 3.26* 2.70* HB 7.4* < > 6.4* < > 6.7* < > 8.6* 9.4* 7.8* HCT 22.8* < > 19.2* < > 19.9* < > 23.5* 25.4* 21.3* PLT 12* < > 16* < > 7* < > 18* 19* 46* NEUTROPERC 13.2* -- 25.7* -- 32.5* -- -- -- -- LYMPHPERC 6.1* -- 5.3* -- 5.0* -- -- -- -- MONOPERC 0.9* -- 0.9* -- 10.0* -- -- -- -- BASOPERC 0.0 -- 0.0 -- 0.0 -- -- -- -- EOSPERC 0.0* -- 0.0* -- 0.0* -- -- -- -- < > = values in this interval not displayed. Meds: Reviewed on rounds, see current MAR for medication list SUMMARY OF PATIENT'S HOSPITALIZATION History of Present Illness: (from H&P) Rhea Hutchison is a 51-year-old woman with a history of COPD, depression, hypothyroidism, and AML diagnosed in late 2015 after she presented with pleuritic chest pain and shortness of br eath in addition to profound leukocytosis. Her disease was initially managed with 7+3+ Dasa tinib, course gated by neutropenic fevers, C. difficile, nodular groundglass opacities sudeep rning for invasive fungal infection (although galactomannan negative), treated with Isavucon azole -> Voriconazole. She was reinduced with Cytarabine and entered CR1. She subsequently relapsed in February 2017 started on FLAG-Arlette salvage-->CR2. Her course was subsequently c omplicated by bacterial pneumonia, otherwise recovered well Patient presents as a transfer from outside hospital ([facility]) where she pres ented with body aches and profound fatigue, anemic with new leukocytosis. Repeat bone marro w biopsy concerning for relapsed AML (blasts positive for CD 117, CD33). In the interim sin ce her initial admission, the patient endorses development of new new acute onset pleuritic left-sided chest pain. She states that this chest pain is stabbing, 5-6 out of 10 in intens ity. It is accompanied by a degree of resting dyspnea. Patient also endorses nagging cough productive of white/yellow sputum of approximately 1 week's duration. She denies constitut ional symptoms including fevers, chills, night sweats. She denies new palpitations. She de nies new oral lesions or odynophagia. She does endorse a degree of ongoing nausea but state s that that is baseline for her. She denies emesis. Endorses a degree of constipation. De nies deep new complaints. She does endorse a developing petechial rash over bilateral lo wer extremities, as well as her upper back. She denies new adenopathy. Hospitalization History: Hematology: #Relapsed Flt3 AML: Had salvage FLAG-Arlette + Midostaurin and Azacitidine bridge while awaitin g SCT now with relapse. Pertinent Diagnostics: -BM Bx 06/21/17 ([facility] [id number]): -Results: 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 myelogenous leukemia (60%); Blasts positive for CD117 and CD 33, negative for CD34, CD71, CD61, CD3 and PAX-5. -Cytogenetics: Normal -Genetrails: NPM1, DNMT3A, NRAS, TET2, FLT3 TKD mutations -06/30 peripheral blood flow and GeneTrails: -Flow: Recurrent acute myeloid leukemia (87% blasts) -GeneTrails not drawn Treatment -Chemotherapy regimen: Arlette + Maurizio-C, started 07/01/17 -Idarubicin 12 mg/m2 daily x 3 days -Cytarabine 1500 mg/m2 CI IV daily x 4 days. -Sorafenib authorization was denied -Chemo Day: 25 Patient is currently not a transplant candidate, but if it were to change, brother is a match #Pancytopenia secondary to chemotherapy: -See supportive care #Supportive Care: Growth factor: no growth factors required at this time Labs: Continue to check CBC daily Transfusion parameters: -Transfuse PRBCs for HCT <21% if asymptomatic -Transfuse PPH for platelet count <10,000 sooner PRN s/s bleeding Cardiovascular: Prechemo TTE on 06/29/17 shows EF of 65-70% #Hx of Hypertension: continues on home anti-hypertensives -Amlodipine 10mg daily -Lisinopril 5mg daily Pulmonary: #COPD: continues on home inhalers -Spiriva 18mcg daily -Albuterol PRN GI: #Abdominal pain: multifactorial, likely secondary to constipation, uncomplicated proctitis, and HSM. 06/29 CT AP showed uncomplicated proctitis, hepatosplenomegaly, and stool in rectum -Continue bowel regimen senna BID; MOM, Miralax, and Lactulose PRN -Fentanyl IV and oxycodone PO PRN pain #Transaminitis with hyperbilirubinemia, possibly d/t idarubicin, AML with liver infiltrates or Zosyn. Monitor. #SWAPNIL, no emesis: controlled -Antiemetics PRN #GERD: worse on 07/23 -Maalox PRN -Omeprazole to 40mg daily -Consider restarting carafate if heartburn persists #Diarrhea, likely due to chemotherapy: resolving. -Imodium PRN /Renal: #Overactive bladder: chronic issue -Oxybutynin CR 15mg daily Neuro/Psych: #Depression/anxiety -Cymbalta 90mg daily -Lorazepam PRN anxiety Endocrine: #Hypothyroidism: -Synthroid 37.5mcg daily Derm: #Rash: most consistent with drug rash. 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 Rash resolved. -On face: triamcinolone 0.1% ointment BID x 3 days only. Then switch to hydrocortisone 2.5 % ointment BID, 07/17-07/23 -On body: triamcinolone 0.1% ointment BID, 07/17-07/23 Infectious Disease: #Non-neutropenic fever, with septic picture 06/29 with tachycardia, tachypnea. Afebrile at th e time, however spiked a fever on 07/01. Localizing symptoms include pleuritic pain and abdomi nal pain. Bld cx NGTD. 06/29 CTA showed left pleural effusion and adjacent atelectasis, no PE or consolidations. 06/29 CT AP showed uncomplicated proctitis, HSM with scattered areas of li maria m AML infiltration, extramedullary hematopoiesis or microabscesses -s/p zosyn (06/29- 07/17) -s/p Levofloxacin (07/17-07/21) switched with neutropenic fevers/pseudomonas bacteremia #Neutropenic fever: noted on 07/20. Bld x 1 positive for pseudomonas. CXR neg. Replaced PI CC 07/25 -Zosyn (07/21- ) continue for 14 day course and until ANC recovery #Pseudomonas bacteremia: bld cx x 1 from 07/20 positive. Resistant to cipro and meropenem b ut sensitive to zosyn. Repeat cx from 07/21 shows NGTD. PICC pulled 07/22 -ID following. -Continue zosyn as above #Prophylaxis: Bacterial: as above Fungal: reports using marijuana, risk for fungal infection. Started Posaconazole 07/04 after chemotherapy. Level adequate at 1.3 on 03/14/17 Viral: acyclovir PCP: not indicated Fluid/Nutrition/Lytes: #Nutrition: Current diet -- Regular No Felisha's yogurt or Kefir. #Fluid: 1L IVF PRN for PO intake <2L/day #Lytes: -Continue to check chemistries daily -Replace per supportive care protocol Disposition: TBD. Anticipate 4-6 week hospitalization LEATHA TAPIA NP [facility] [id number] [facility] Mailcode: [email or web address] [place], [place] [id number] Angelia Thompson MD - 07/25/2017 9:58 AM PDTFormatting of this note may be different fr om the original. Hematologic Malignancies/Bone Marrow Transplant Inpatient Attending Progress Note: Hospital course summary: Rhea Hutchison is a 51 year old female with relapsed FLT3+ AML, admitted currently for re-briana ction with Idarubacin + Maurizio-C. She was diagnosed initially in January 2016 with favorable risk NPM1+ AML. A BMBx obtained 02/14/17 showed a hypercellular marrow with 51% blasts + p romonocytes. Cytogenetics 46 XX and genetrails with mutations in NPM1, DNMT3A, NRAS, TET2, and a FLT3 TKD mutation. She was enrolled on a clinical trial (7+3 PLUS) and underwent in duction with 7 + 3+ dasatinib. Her course was complicated by pneumonia concerning for inva sive fungal infection vs atypical pneumonia, received treatment with isavuconazole and then fluconazole for a total of 12 weeks. A post-induction BMBx was consistent with CR1, and toy baker then completed consolidation with cytarabine given at 1500 mg/m2. She was well until Feb, when she presented with fevers and body pains. A CBC showed a WBC count of 103 k, hct 13.8 and plts 10k. 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 She underwent re-induction with FLAG-Arlette; midostaurin added at day +8. A BMBx obt ained after induction on 04/04/17 was consistent with CR2. She then begain maintenance ther apy with azacitadine + midostaurin, however in June of 2017 she presented with body aches a nd was found to again have relapsed disease. She is admitted now for re-induction with arlette rubacin + modofoed Maurizio-C. Course thus far complicated by proctitis, carbapenem resistant p seudomonal bacteremia and rash. I rounded today, 07/25/2017, in conjunction with the Advanced Practice Provider Leatha hartley. I saw the patient, reviewed the history and relevant studies and developed an assessment an d plan. Subjective: Feels well today. Went to arts and [place] yesterday, was nice to be up on 14k visiting her friends. Objective: Last Vitals: BP 132/76 | Pulse 97 | Temp 36.8 C (98.2 F) | RR 16 | Ht 1.59 m (5' 2.6") | Wt 81 kg (178 lb 9.2 oz) | SpO2 92% | BMI 32.04 kg/(m^2) Gen: sitting up in chair, NAD HEENT: no oral lesions Lungs: CTA bilaterally CVS: RRR no M/G/R appreciated Abd: soft, NT Skin: + petechiae at ankles, improved Ext: no pitting edema Brief Assessment / Plan: - AML: Admitted now with relapsed disease (second relapse), undergoing re-induction with a modified idarubacin and Maurizio-C regimen. She is currently day +25of therapy, counts aggie in at jacquelin with ANC of 0, as anticipated (given multiple rounds of prior chemotherapy). S he is overall tolerating therapy well. Sorafenib was considered given her FLT3+ disease, h owever this was not covered by insurance. No day +14 marrow obtained as no escalation of t herapy planned. Her counts are at jacquelin, anticipate delayed recovery given multiple prior rounds of chemotherapy. She will remain in the hospital until count recovery. She complet ed therapy as below: Chemotherapy regimen:Arlette + Maurizio-C, started 07/01/17 -Idarubicin 12 mg/m2 daily x 3 days -Cytarabine 1500 mg/m2 CI IV daily x 4 days. -Sorafenib authorization was denied - Neutropenic fevers: Fever 07/21to 39.2. Blood aund urine cultures obtained; positive forpseudomonal bacteremia and sensitivities showmeropenem resistance. She was started on Meropenem initially, but transitioned to Zosyn the following morning. Will continue Zo syn for at least a 2 week treatment course or until ANC >500, whichever is longer. PICC removed, will wait for 48-72 hours of clear cultures before replacing. Of note did have no n-neutropenic fevers earlier in hospital stay on 06/29; aCT obtained 06/29 showed proctitis an d a L pleural effusion. Blood cutlures with no growth, she was not neutropenic at the time . She was started on treatment with Zosyn; although she became neutropenic her antibiotics were de-escalated to levaquin after she had completed a 2-week course of treatment for her proctitis. Now with recurrent fevers will continue IV antibiotics until ANC recovered. - Zosyn 07/21 --> - PICC removed 07/22, replaced 07/25 - Meropenem (07/20-07/21) - s/p Zosyn 06/29 - 07/17 - Rash: Currently resolved. Derm was consulted; they diagnosed her with neutrophilic eccr ine hidradenitis and recommended steroid creams. Appearance improved, topical creams discont inued 07/23. - Hypertension: SBP in the 100-130 range, will continue home antihypertensives at current doses. - lisinopril 5 mg PO daily - amlodipine 10 mg PO daily - COPD: Well controlled, no symptoms of SOB or cough. Will continue home inhalers. - Spiriva 18 mcg daily - albuterol prn - GERD: Secondary to associated hiatal hernia. Takes PPIs at home, symptoms better cont rolled now. Continue PPI. - Omeprazole 40 mg PO daily - Overactive Bladder: Continue homme oxybutynin - Hypothyroidism: Continue home levothyroxine - Pancytopenia: Secondary to chemotherapy. Standard transfusion parameters as below: - transfuse 1 unit PRBC for hct <21 - transfuse 1 unit plts for plt <10k ID Propylaxis: Bacterial: as above Fungal: Started Posaconazole 07/04, level 1.3 on 03/14/17 Viral: acyclovir PCP: not indicated I have updated the problem list to reflect those problems being actively managed. Active Problems: COPD (chronic obstructive pulmonary disease) (HCC) Anxiety and depression Acute myeloid leukemia not having achieved remission (HCC) Learning disability Rash of face Neutropenic fever (HCC) Pancytopenia due to antineoplastic chemotherapy (HCC) Transaminitis Hepatosplenomegaly Pleural effusion Proctitis Protein-calorie malnutrition, mild (HCC) Immunocompromised state (HCC) Chemotherapy induced diarrhea Please see the Advanced Practice Provider documentation from today for the full details reg arding the assessment and plan. Angelia Thompson MD Vitals: 24 Hour Vital Min/Max: Systolic (24hrs), Av , Min:108 , Max:132 Diastolic (24hrs), Av, Min:61, Max:82 Pulse Min: 89 Max: 102 Temp Min: 36.7 C (98.1 F) Max: 37.1 C (98.8 F) Resp Min: 14 Max: 16 SpO2 Min: 92 % Max: 96 % Intake/Output Summary (Last 24 hours) at 07/25/17 0958 Last data filed at 07/25/17 0900 Gross per 24 hour Intake 1800 ml Output 2175 ml Net -375 ml Labs: CBC with diff last 72 hours (or 3 results) - Refreshable Recent Labs 07/23/17 0400 07/23/17201907/24/17 2347 WBC <0.10* <0.10* <0.10* HB 8.6* 9.4* 7.8* HCT 23.5* 25.4* 21.3* PLT 18* 19* 46* Lab Results Component Value Date NA 136 07/24/2017 K 4.0 07/24/2017 CL 101 07/24/2017 BICARB 28 07/24/2017 BUN 7 07/24/2017 EGFRAFRICAN >60 07/24/2017 EGFRNONAFR >60 07/24/2017 CR 0.46 07/24/2017 GLU 115 07/24/2017 CA 8.6 07/24/2017 ANIONGAP 7 07/24/2017 ANIONALBCOR 11 07/24/2017 Lab Results Component Value Date AST 26 07/24/2017 ALT 17 07/24/2017 TBILI 1.0 07/24/2017 AP 150 07/24/2017 TP 6.1 07/24/2017 ALB 2.4 07/24/2017 Medications: acetaminophen (TYLENOL) tablet 650 mg, 650 mg, oral, Q6H PRN acyclovir (ZOVIRAX) tablet 800 mg, 800 mg, oral, DAILY albuterol (PROVENTIL, VENTOLIN) 90 mcg/actuation inhaler 1 puff, 1 puff, inhalation, Q6H AR N alteplase (CATHFLO ACTIVASE) injection 2 mg, 2 mg, Intracatheter, PRN aluminum-magnesium hydroxide-simethicone (MAALOX; MYLANTA) 200-200-20 mg/5 mL suspension 30 mL, 30 mL, oral, QID PRN amLODIPine (NORVASC) tablet 10 mg, 10 mg, oral, DAILY dextrose 50 % in water IV 25 mL, 25 mL, intravenous, PRN dpmirzobncQRRCU-ryfamrblh-VSYIJT (SPECIAL MOUTHWASH) suspension (compound) 5-10 mL, 5-10 mL , oral, QID PRN diphenhydrAMINE-zinc acetate (BENADRYL ITCH STOPPING) 2-0.1 % cream, , topical, QID PRN DULoxetine (CYMBALTA) capsule 90 mg, 90 mg, oral, DAILY fentaNYL (SUBLIMAZE) injection 25-50 mcg, 25-50 mcg, intravenous, Q2H PRN glucagon (GLUCAGEN) injection 1 mg, 1 mg, intramuscular, PRN glucose chewable tablet 16 g, 16 g, oral, PRN haloperidol (HALDOL) tablet 0.5-1.5 mg, 0.5-1.5 mg, oral, Q4H PRN haloperidol lactate (HALDOL) injection 0.5-1.5 mg, 0.5-1.5 mg, intravenous, Q4H PRN lactulose (ENULAC) liquid 10 g, 15 mL, oral, TID PRN levothyroxine tablet 37.5 mcg, 37.5 mcg, oral, BEFORE BREAKFAST lisinopril (PRINIVIL) tablet 5 mg, 5 mg, oral, DAILY loperamide (IMODIUM) capsule 2-4 mg, 2-4 mg, oral, QID PRN loratadine (CLARITIN) tablet 10 mg, 10 mg, oral, DAILY LORazepam (ATIVAN) tablet 0.5 mg, 0.5 mg, oral, Q8H PRN magnesium hydroxide (MILK OF MAGNESIA) suspension 30 mL, 30 mL, oral, Q4H PRN magnesium sulfate in water IV (RTU) 4 g, 4 g, intravenous, PRN magnesium sulfate IV 8 g, 8 g, intravenous, PRN omeprazole (PRILOSEC) capsule 40 mg, 40 mg, oral, BEFORE BREAKFAST ondansetron (ZOFRAN) tablet 8 mg, 8 mg, oral, Q12H PRN oxybutynin CR (DITROPAN-XL) tablet 15 mg, 15 mg, oral, DAILY oxyCODONE (immediate release) (ROXICODONE) tablet 10-20 mg, 10-20 mg, oral, Q3H PRN piperacillin-tazobactam (ZOSYN) IV 4.5 g, 4.5 g, intravenous, Q6H polyethylene glycol (MIRALAX) packet 17 g, 17 g, oral, BID PRN [COMPLETED] posaconazole DR (NOXAFIL) tablet 300 mg, 300 mg, oral, BID FOLLOWED BY posa conazole DR (NOXAFIL) tablet 300 mg, 300 mg, oral, DAILY potassium chloride IV (peripheral line) 40 mEq, 40 mEq, intravenous, PRN OR potassium c hloride IV (peripheral line) 60 mEq, 60 mEq, intravenous, PRN potassium chloride SR (K-DUR) tablet 40 mEq, 40 mEq, oral, PRN potassium phosphate IV 30 mmol, 30 mmol, intravenous, PRN OR potassium phosphate IV 40 mmol, 40 mmol, intravenous, PRN prochlorperazine (COMPAZINE) tablet 5-10 mg, 5-10 mg, oral, Q6H PRN OR prochlorperazine (COMPAZINE) injection 5-10 mg, 5-10 mg, intravenous, Q6H PRN senna-docusate (SENOKOT S) 8.6-50 mg 2 tablet, 2 tablet, oral, BID PRN simethicone chew (MYLICON) tablet 80 mg, 80 mg, oral, TID PRN sodium chloride (OCEAN) 0.65 % nasal spray 2 spray, 2 spray, both nostrils, PRN sodium chloride 0.9% IV infusion, 1,000 mL, intravenous, PRN sodium phosphate IV 30 mmol, 30 mmol, intravenous, PRN sodium phosphate IV 40 mmol, 40 mmol, intravenous, PRN tiotropium (SPIRIVA) inhalation 18 mcg, 18 mcg, inhalation, DAILY traZODone (DESYREL) dose 25-50 mg, 25-50 mg, oral, HS PRN Sharif Felisha Castaneda, SPORTS PHYSICIAN - 07/24/2017 4:08 PM PDTName:Rhea Htuchison Date: td : 1965 Problem Identified: housing Met with Rhea and Sharon today and discussed the above problems. Rhea is experiencing d ifficulty in this area due to her landlord not wanting her daughter, Magalis with her childr silvestre, staying at Rhea's home while she is in the hospital. Apparently, Magalis has caused pr oblems previously, but patient states that she is straightened out now and isn't a problem. SW discussed looking into tenants rights for patient. In the meantime, if he calls her husba nd will talk to him so she doesn't get upset. Plan/Intervention: Counseling Social work will plan to be available for support and assistance as needed. FELISHA Castaneda SHARIF, [facility] PHYSICIAN[facility] [id number] [facility] Mailcode: [facility] [place] [address] Leatha Tapia NP - 07/24/2017 12:53 PM PDTFormatting of this note may be different f rom the original. Daily NICOLE Note - Chemotherapy Admit Center for Hematologic Malignancies Attending: Angelia Thompson MD [facility] Physician: Pepe Chavis MD Local Oncologist: Daniel Patterson MD PCP: Saurav Small NP Date of Admission: 06/28/17 Hematologic Malignancy: AML ID: 51 yo woman with second relapse AML, FLT3 ITD admitted for evaluation and treatment. Hx COPD, Depression/PTSD, Disorder of Thyroid, HTN, Insomnia 24 Hour Events/Current Daily Plan: -Relapsed AML, Flt3: currently Arlette + modified Maurizio-C, currently day 24. No Day 14 BMBx done as not a transplant candidate -Sorafenib insurance authorization/appeal rejected. Consider mylotarg for subsequent chemo cycles. Currently not a transplant candidate. -Pancytopenia secondary to chemotherapy: standard transfusion parameters. 1U PRBCs today. -Neutropenic fever: noted on 07/20, restarted zosyn. Bld cx x 1 07/20 positive for pseudomon as. CXR neg for consolidation. -Pseudomonas bacteremia: bld cx x 1 from 07/20 positive. Cleared as of 07/21. Resistant to ci pro and meropenem. PICC pulled 07/22, plan to replace today (07/24). ID following. Continue zosyn as above. -Hyperbilirubinemia, possibly r/t Zosyn: tbili=1.2 on 07/24. Continue Zosyn at this time and monitor. -Hypokalemia: Replace potassium today. Subjective: Feeling well this morning. No new symptoms overnight. No chills or fevers. Objective: Last Vitals: BP 125/76 | Pulse 104 | Temp 37.2 C (99 F) | RR 16 | Ht 1.59 m (5' 2.6") | Wt 81 kg (178 lb 9.2 oz) | SpO2 92% | BMI 32.04 kg/(m^2) 24 Hour Vital Min/Max: Systolic (24hrs), Av , Min:118 , Max:145 Diastolic (24hrs), Av, Min:68, Max:82 Pulse Min: 99 Max: 110 Temp Min: 36.8 C (98.2 F) Max: 37.6 C (99.7 F) Resp Min: 14 Max: 16 SpO2 Min: 92 % Max: 96 % Intake/Output Summary (Last 24 hours) at 07/24/17 1253 Last data filed at 07/24/17 1100 Gross per 24 hour Intake 3190 ml Output 3050 ml Net 140 ml Physical Exam: General: This is a female in no acute distress. Sitting up in chair. HEENT: PERRL. Sclerae anicteric. No lesions noted in mouth Skin: Faint erythema noted to face, ecchymosis and petechiae noted to BLE. Chest: Lungs clear to auscultation bilat. CV: RRR, no murmurs. Abdomen: S/NT/ND with NABS. No HSM appreciated. Extremities: Pulses strong and equal bilaterally. No c/c/e NeuroPsych: Alert and oriented x 3. Grossly nonfocal exam. CVC: RUE PICC site without inflammation or induration. C/D/I Laboratory Results: Recent Labs 07/22/17 0035 07/22/17 2250 07/23/17 2330 NA 134* 134* 134* K 3.6 4.6 3.1* CL 100 100 100 BICARB 26 27 23 BUN 8 7 5* CR 0.49* 0.45* 0.42* GLU 112* 104* 103* CA 8.3* 8.7 8.5* AST 15 45* 16 ALT 26 24 19 AP 190* 177* 180* TBILI 0.5 1.0 1.2 TP 6.0* 6.7 6.8 ALB 2.8* 2.9* 2.9* Recent Labs 07/01/17 2318 07/02/17 2336 07/04/17 0040 07/22/17 2250 07/23/17 0400 07/23/172019 WBC 17.35* < > 3.52 < > 0.55* < > <0.10* <0.10* <0.10* RBC 2.47* < > 2.09* < > 2.23* < > 1.97* 2.96* 3.26* HB 7.4* < > 6.4* < > 6.7* < > 5.9* 8.6* 9.4* HCT 22.8* < > 19.2* < > 19.9* < > 15.6* 23.5* 25.4* PLT 12* < > 16* < > 7* < > 65* 18* 19* NEUTROPERC 13.2* -- 25.7* -- 32.5* -- -- -- -- LYMPHPERC 6.1* -- 5.3* -- 5.0* -- -- -- -- MONOPERC 0.9* -- 0.9* -- 10.0* -- -- -- -- BASOPERC 0.0 -- 0.0 -- 0.0 -- -- -- -- EOSPERC 0.0* -- 0.0* -- 0.0* -- -- -- -- < > = values in this interval not displayed. Meds: Reviewed on rounds, see current MAR for medication list SUMMARY OF PATIENT'S HOSPITALIZATION History of Present Illness: (from H&P) Rhea Hutchison is a 51-year-old woman with a history of COPD, depression, hypothyroidism, and AML diagnosed in late 2015 after she presented with pleuritic chest pain and shortness of br eath in addition to profound leukocytosis. Her disease was initially managed with 7+3+ Dasa tinib, course gated by neutropenic fevers, C. difficile, nodular groundglass opacities sudeep rning for invasive fungal infection (although galactomannan negative), treated with Isavucon azole -> Voriconazole. She was reinduced with Cytarabine and entered CR1. She subsequently relapsed in February 2017 started on FLAG-Arlette salvage-->CR2. Her course was subsequently c omplicated by bacterial pneumonia, otherwise recovered well Patient presents as a transfer from outside hospital ([facility]) where she pres ented with body aches and profound fatigue, anemic with new leukocytosis. Repeat bone marro w biopsy concerning for relapsed AML (blasts positive for CD 117, CD33). In the interim sin ce her initial admission, the patient endorses development of new new acute onset pleuritic left-sided chest pain. She states that this chest pain is stabbing, 5-6 out of 10 in intens ity. It is accompanied by a degree of resting dyspnea. Patient also endorses nagging cough productive of white/yellow sputum of approximately 1 week's duration. She denies constitut ional symptoms including fevers, chills, night sweats. She denies new palpitations. She de nies new oral lesions or odynophagia. She does endorse a degree of ongoing nausea but state s that that is baseline for her. She denies emesis. Endorses a degree of constipation. De nies deep new complaints. She does endorse a developing petechial rash over bilateral lo wer extremities, as well as her upper back. She denies new adenopathy. Hospitalization History: Hematology: #Relapsed Flt3 AML: Had salvage FLAG-Arlette + Midostaurin and Azacitidine bridge while awaitin g SCT now with relapse. Pertinent Diagnostics: -BM Bx 06/21/17 ([facility] [id number]): -Results: 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 myelogenous leukemia (60%); Blasts positive for CD117 and CD 33, negative for CD34, CD71, CD61, CD3 and PAX-5. -Cytogenetics: Normal -Genetrails: NPM1, DNMT3A, NRAS, TET2, FLT3 TKD mutations -3/4 peripheral blood flow and GeneTrails: -Flow: Recurrent acute myeloid leukemia (87% blasts) -GeneTrails not drawn Treatment -Chemotherapy regimen: Arlette + Maurizio-C, started 07/01/17 -Idarubicin 12 mg/m2 daily x 3 days -Cytarabine 1500 mg/m2 CI IV daily x 4 days. -Sorafenib authorization was denied -Chemo Day: 24 Patient is currently not a transplant candidate, but if it were to change, brother is a match #Pancytopenia secondary to chemotherapy: -See supportive care #Supportive Care: Growth factor: no growth factors required at this time Labs: Continue to check CBC daily Transfusion parameters: -Transfuse PRBCs for HCT <21% if asymptomatic -Transfuse PPH for platelet count <10,000 sooner PRN s/s bleeding Cardiovascular: Prechemo TTE on 06/29/17 shows EF of 65-70% #Hx of Hypertension: continues on home anti-hypertensives -Amlodipine 10mg daily -Lisinopril 5mg daily Pulmonary: #COPD: continues on home inhalers -Spiriva 18mcg daily -Albuterol PRN GI: #Abdominal pain: multifactorial, likely secondary to constipation, uncomplicated proctitis, and HSM. 06/29 CT AP showed uncomplicated proctitis, hepatosplenomegaly, and stool in rectum -Continue bowel regimen senna BID; MOM, Miralax, and Lactulose PRN -Fentanyl IV and oxycodone PO PRN pain #Transaminitis with hyperbilirubinemia, possibly d/t idarubicin, AML with liver infiltrates or Zosyn. Monitor. #SWAPNIL, no emesis: controlled -Antiemetics PRN #GERD: worse on 07/23 -Maalox PRN -Omeprazole to 40mg daily -Consider restarting carafate if heartburn persists #Diarrhea, likely due to chemotherapy: resolving. -Imodium PRN /Renal: #Overactive bladder: chronic issue -Oxybutynin CR 15mg daily Neuro/Psych: #Depression/anxiety -Cymbalta 90mg daily -Lorazepam PRN anxiety Endocrine: #Hypothyroidism: -Synthroid 37.5mcg daily Derm: #Rash: most consistent with drug rash. 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 Rash resolved. -On face: triamcinolone 0.1% ointment BID x 3 days only. Then switch to hydrocortisone 2.5 % ointment BID, 07/17-07/23 -On body: triamcinolone 0.1% ointment BID, 07/17-07/23 Infectious Disease: #Non-neutropenic fever, with septic picture 06/29 with tachycardia, tachypnea. Afebrile at th e time, however spiked a fever on 07/01. Localizing symptoms include pleuritic pain and abdomi nal pain. Bld cx NGTD. 06/29 CTA showed left pleural effusion and adjacent atelectasis, no PE or consolidations. 06/29 CT AP showed uncomplicated proctitis, HSM with scattered areas of li maria m AML infiltration, extramedullary hematopoiesis or microabscesses -s/p zosyn (06/29- 07/17) #Neutropenic fever: noted on 07/20. Bld x 1 positive for pseudomonas. CXR neg -Zosyn (07/21- ) #Pseudomonas bacteremia: bld cx x 1 from 07/20 positive. Resistant to cipro and meropenem b ut sensitive to zosyn. Repeat cx from 07/21 shows NGTD. PICC pulled 07/22 -ID following. -Continue zosyn as above. #Prophylaxis: Bacterial: as above Fungal: reports using marijuana, risk for fungal infection. Started Posaconazole 07/04 after chemotherapy. Level adequate at 1.3 on 03/14/17 Viral: acyclovir PCP: not indicated Fluid/Nutrition/Lytes: #Nutrition: Current diet -- Regular No Felisha's yogurt or Kefir. #Fluid: 1L IVF PRN for PO intake <2L/day #Lytes: -Continue to check chemistries daily -Replace per supportive care protocol Disposition: TBD. Anticipate 4-6 week hospitalization LEATHA TAPIA NP [facility] [address] Mailcode: [id number] [place] [address] Angelia Thompson MD - 07/24/2017 10:13 AM PDTFormatting of this note may be different fr om the original. Hematologic Malignancies/Bone Marrow Transplant Inpatient Attending Progress Note: Hospital course summary: Rhea Hutchison is a 51 year old female with relapsed FLT3+ AML, admitted currently for re-briana ction with Idarubacin + Maurizio-C. She was diagnosed initially in January 2016 with favorable risk NPM1+ AML. A BMBx obtained 02/14/17 showed a hypercellular marrow with 51% blasts + p romonocytes. Cytogenetics 46 XX and genetrails with mutations in NPM1, DNMT3A, NRAS, TET2, and a FLT3 TKD mutation. She was enrolled on a clinical trial (7+3 PLUS) and underwent in duction with 7 + 3+ dasatinib. Her course was complicated by pneumonia concerning for inva sive fungal infection vs atypical pneumonia, received treatment with isavuconazole and then fluconazole for a total of 12 weeks. A post-induction BMBx was consistent with CR1, and toy baker then completed consolidation with cytarabine given at 1500 mg/m2. She was well until Feb, when she presented with fevers and body pains. A CBC showed a WBC count of 103 k, hct 13.8 and plts 10k. 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 She underwent re-induction with FLAG-Arlette; midostaurin added at day +8. A BMBx obt ained after induction on 04/04/17 was consistent with CR2. She then begain maintenance ther apy with azacitadine + midostaurin, however in June of 2017 she presented with body aches a nd was found to again have relapsed disease. She is admitted now for re-induction with arlette rubacin + modofoed Maurizio-C. Course thus far complicated by proctitis, carbapenem resistant p seudomonal bacteremia and rash. I rounded today, 07/24/2017, in conjunction with the Advanced Practice Provider Leatha hartley. I saw the patient, reviewed the history and relevant studies and developed an assessment an d plan. Subjective: Visited 14k yesterday and did crafts, was glad to go upstairs and see her friends. Has per ipheral IVs in hands, these get in the way a little bit but do not hurt. Feeling well. Objective: Last Vitals: BP 125/76 | Pulse 104 | Temp 37.2 C (99 F) | RR 16 | Ht 1.59 m (5' 2.6") | Wt 81 kg (178 lb 9.2 oz) | SpO2 92% | BMI 32.04 kg/(m^2) Gen: sitting up at edge of bed, NAD HEENT: no oral lesions Lungs: CTA bilaterally CVS: RRR no M/G/R appreciated Abd: soft, NT Skin: + petechiae at ankles, fading Ext: no pitting edema Brief Assessment / Plan: - AML: Admitted now with relapsed disease (second relapse), undergoing re-induction with a modified idarubacin and Maurizio-C regimen. She is currently day +24of therapy, counts aggie in at jacquelin with ANC of 0, as anticipated (given multiple rounds of prior chemotherapy). S he is overall tolerating therapy well. Sorafenib was considered given her FLT3+ disease, h owever this was not covered by insurance. No day +14 marrow obtained as no escalation of t herapy planned. She will remain in the hospital until count recovery. She completed ther apy as below: Chemotherapy regimen:Arlette + Maurizio-C, started 07/01/17 -Idarubicin 12 mg/m2 daily x 3 days -Cytarabine 1500 mg/m2 CI IV daily x 4 days. -Sorafenib authorization was denied - Neutropenic fevers: Fever 07/21to 39.2. Blood aund urine cultures obtained; positive for pseudomonal bacteremia and sensitivities show meropenem resistance. She was started o n Meropenem initially, but transitioned to Zosyn the following morning. Will continue Zosy n for at least a 2 week treatment course or until ANC >500, whichever is longer. PICC re moved, will wait for 48-72 hours of clear cultures before replacing. Of note did have non- neutropenic fevers earlier in hospital stay on 06/29; aCT obtained 06/29 showed proctitis and a L pleural effusion. Blood cutlures with no growth, she was not neutropenic at the time. She was started on treatment with Zosyn; although she became neutropenic her antibiotics w ere de-escalated to levaquin after she had completed a 2-week course of treatment for her pr octitis. Now with recurrent fevers will continue IV antibiotics until ANC recovered. - Zosyn 07/21 --> - PICC removed 07/22, will replace in 48-72h - Meropenem (07/20-07/21) - s/p Zosyn 06/29 - 07/17 - Rash: Currently resolved. Derm was consulted; they diagnosed her with neutrophilic eccr ine hidradenitis and recommended steroid creams. Appearance improved, topical creams discont inued 07/23. - Hypertension: SBP in the 100-130 range, will continue home antihypertensives at current doses. - lisinopril 5 mg PO daily - amlodipine 10 mg PO daily - COPD: Well controlled, no symptoms of SOB or cough. Will continue home inhalers. - Spiriva 18 mcg daily - albuterol prn - GERD: Secondary to associated hiatal hernia. Takes PPIs at home, symptoms better cont rolled now. Continue PPI. - Omeprazole 40 mg PO daily - Overactive Bladder: Continue homme oxybutynin - Hypothyroidism: Continue home levothyroxine - Pancytopenia: Secondary to chemotherapy. Standard transfusion parameters as below: - transfuse 1 unit PRBC for hct <21 - transfuse 1 unit plts for plt <10k ID Propylaxis: Bacterial: as above Fungal: Started Posaconazole 07/04, level 1.3 on 03/14/17 Viral: acyclovir PCP: not indicated I have updated the problem list to reflect those problems being actively managed. Active Problems: COPD (chronic obstructive pulmonary disease) (HCC) Anxiety and depression Acute myeloid leukemia not having achieved remission (HCC) Learning disability Rash of face Neutropenic fever (HCC) Pancytopenia due to antineoplastic chemotherapy (HCC) Transaminitis Hepatosplenomegaly Pleural effusion Proctitis Protein-calorie malnutrition, mild (HCC) Immunocompromised state (HCC) Chemotherapy induced diarrhea Please see the Advanced Practice Provider documentation from today for the full details reg arding the assessment and plan. Angelia Thompson MD Vitals: 24 Hour Vital Min/Max: Systolic (24hrs), Av , Min:118 , Max:145 Diastolic (24hrs), Av, Min:68, Max:82 Pulse Min: 99 Max: 110 Temp Min: 36.8 C (98.2 F) Max: 37.6 C (99.7 F) Resp Min: 14 Max: 16 SpO2 Min: 92 % Max: 96 % Intake/Output Summary (Last 24 hours) at 07/24/17 1013 Last data filed at 07/24/17 0900 Gross per 24 hour Intake 2610 ml Output 3050 ml Net -440 ml Labs: CBC with diff last 72 hours (or 3 results) - Refreshable Recent Labs 07/22/17 2250 07/23/17 0400 07/23/172019 WBC <0.10* <0.10* <0.10* HB 5.9* 8.6* 9.4* HCT 15.6* 23.5* 25.4* PLT 65* 18* 19* Lab Results Component Value Date NA 134 07/23/2017 K 3.1 07/23/2017 CL 100 07/23/2017 BICARB 23 07/23/2017 BUN 5 07/23/2017 EGFRAFRICAN >60 07/23/2017 EGFRNONAFR >60 07/23/2017 CR 0.42 07/23/2017 GLU 103 07/23/2017 CA 8.5 07/23/2017 ANIONGAP 11 07/23/2017 ANIONALBCOR 13 07/23/2017 Lab Results Component Value Date AST 16 07/23/2017 ALT 19 07/23/2017 TBILI 1.2 07/23/2017 AP 180 07/23/2017 TP 6.8 07/23/2017 ALB 2.9 07/23/2017 Medications: acetaminophen (TYLENOL) tablet 650 mg, 650 mg, oral, Q6H PRN acyclovir (ZOVIRAX) tablet 800 mg, 800 mg, oral, DAILY albuterol (PROVENTIL, VENTOLIN) 90 mcg/actuation inhaler 1 puff, 1 puff, inhalation, Q6H AR N alteplase (CATHFLO ACTIVASE) injection 2 mg, 2 mg, Intracatheter, PRN aluminum-magnesium hydroxide-simethicone (MAALOX; MYLANTA) 200-200-20 mg/5 mL suspension 30 mL, 30 mL, oral, QID PRN amLODIPine (NORVASC) tablet 10 mg, 10 mg, oral, DAILY dextrose 50 % in water IV 25 mL, 25 mL, intravenous, PRN [id number] (SPECIAL MOUTHWASH) suspension (compound) 5-10 mL, 5-10 mL , oral, QID PRN diphenhydrAMINE-zinc acetate (BENADRYL ITCH STOPPING) 2-0.1 % cream, , topical, QID PRN DULoxetine (CYMBALTA) capsule 90 mg, 90 mg, oral, DAILY fentaNYL (SUBLIMAZE) injection 25-50 mcg, 25-50 mcg, intravenous, Q2H PRN glucagon (GLUCAGEN) injection 1 mg, 1 mg, intramuscular, PRN glucose chewable tablet 16 g, 16 g, oral, PRN haloperidol (HALDOL) tablet 0.5-1.5 mg, 0.5-1.5 mg, oral, Q4H PRN haloperidol lactate (HALDOL) injection 0.5-1.5 mg, 0.5-1.5 mg, intravenous, Q4H PRN lactulose (ENULAC) liquid 10 g, 15 mL, oral, TID PRN levothyroxine tablet 37.5 mcg, 37.5 mcg, oral, BEFORE BREAKFAST lisinopril (PRINIVIL) tablet 5 mg, 5 mg, oral, DAILY loperamide (IMODIUM) capsule 2-4 mg, 2-4 mg, oral, QID PRN loratadine (CLARITIN) tablet 10 mg, 10 mg, oral, DAILY LORazepam (ATIVAN) tablet 0.5 mg, 0.5 mg, oral, Q8H PRN magnesium hydroxide (MILK OF MAGNESIA) suspension 30 mL, 30 mL, oral, Q4H PRN magnesium sulfate in water IV (RTU) 4 g, 4 g, intravenous, PRN magnesium sulfate IV 8 g, 8 g, intravenous, PRN omeprazole (PRILOSEC) capsule 40 mg, 40 mg, oral, BEFORE BREAKFAST ondansetron (ZOFRAN) tablet 8 mg, 8 mg, oral, Q12H PRN oxybutynin CR (DITROPAN-XL) tablet 15 mg, 15 mg, oral, DAILY oxyCODONE (immediate release) (ROXICODONE) tablet 10-20 mg, 10-20 mg, oral, Q3H PRN piperacillin-tazobactam (ZOSYN) IV 4.5 g, 4.5 g, intravenous, Q6H polyethylene glycol (MIRALAX) packet 17 g, 17 g, oral, BID PRN [COMPLETED] posaconazole DR (NOXAFIL) tablet 300 mg, 300 mg, oral, BID FOLLOWED BY posa conazole DR (NOXAFIL) tablet 300 mg, 300 mg, oral, DAILY potassium chloride IV (peripheral line) 40 mEq, 40 mEq, intravenous, PRN OR potassium c hloride IV (peripheral line) 60 mEq, 60 mEq, intravenous, PRN potassium chloride SR (K-DUR) tablet 40 mEq, 40 mEq, oral, PRN potassium phosphate IV 30 mmol, 30 mmol, intravenous, PRN OR potassium phosphate IV 40 mmol, 40 mmol, intravenous, PRN prochlorperazine (COMPAZINE) tablet 5-10 mg, 5-10 mg, oral, Q6H PRN OR prochlorperazine (COMPAZINE) injection 5-10 mg, 5-10 mg, intravenous, Q6H PRN senna-docusate (SENOKOT S) 8.6-50 mg 2 tablet, 2 tablet, oral, BID PRN simethicone chew (MYLICON) tablet 80 mg, 80 mg, oral, TID PRN sodium chloride 0.9% IV infusion, 1,000 mL, intravenous, PRN sodium phosphate IV 30 mmol, 30 mmol, intravenous, PRN sodium phosphate IV 40 mmol, 40 mmol, intravenous, PRN tiotropium (SPIRIVA) inhalation 18 mcg, 18 mcg, inhalation, DAILY traZODone (DESYREL) dose 25-50 mg, 25-50 mg, oral, HS PRN Shayna Gardiner PA - 07/23/2017 11:13 AM PDTFormatting of this note may be different fro m the original. Daily NICOLE Note - Chemotherapy Ad[facility] Attending: Angelia Thompson MD [facility] Physician: Pepe Chavis MD Local Oncologist: Daniel Patterson MD PCP: Saurav Small NP Date of Admission: 06/28/17 Hematologic Malignancy: AML ID: 51 yo woman with second relapse AML, FLT3 ITD admitted for evaluation and treatment. Hx COPD, Depression/PTSD, Disorder of Thyroid, HTN, Insomnia 24 Hour Events/Current Daily Plan: -Relapsed AML, Flt3: currently Arlette + modified Maurizio-C, currently day 23. Sorafenib insurance authorization/appeal rejected. Consider mylotarg for subsequent chemo cycles. Currently not a transplant candidate. -Pancytopenia secondary to chemotherapy: standard transfusion parameters. 1U PRBCs today. -Neutropenic fever: noted on 07/20, restarted zosyn. Bld cx x 1 07/20 positive for pseudomon as. CXR neg for consolidation. -Pseudomonas bacteremia: bld cx x 1 from 07/20 positive. Resistant to cipro and meropenem. PICC pulled 07/22 and repeat cxs from 07/21 show NGTD. ID following. Continue zosyn as abov e. -Lytes: standard replacement protocol. None required today. Subjective: Feeling well today. She's been walking at least 1 mile each day. Does have so me heartburn today. Objective: Last Vitals: BP 133/79 | Pulse 100 | Temp 37 C (98.6 F) | RR 16 | Ht 1.59 m (5' 2.6") | Wt 81 kg (178 lb 9.2 oz) | SpO2 95% | BMI 32.04 kg/(m^2) 24 Hour Vital Min/Max: Systolic (24hrs), Av , Min:115 , Max:137 Diastolic (24hrs), Av, Min:71, Max:95 Pulse Min: 89 Max: 105 Temp Min: 36.8 C (98.2 F) Max: 37.6 C (99.7 F) Resp Min: 16 Max: 18 SpO2 Min: 93 % Max: 100 % Intake/Output Summary (Last 24 hours) at 07/23/17 1113 Last data filed at 07/23/17 1000 Gross per 24 hour Intake 2475 ml Output 2675 ml Net -200 ml Physical Exam: General: This is a female in no acute distress. Sitting in chair. HEENT: PERRL. Sclerae anicteric. No lesions noted in mouth Skin: Faint erythema noted to face, ecchymosis and petechiae noted to BLE. Chest: Lungs clear to auscultation bilat. CV: RRR, no murmurs. Abdomen: S/NT/ND with NABS. No HSM appreciated. Extremities: Pulses strong and equal bilaterally. No c/c/e NeuroPsych: Alert and oriented x 3. Grossly nonfocal exam. CVC: RUE PICC site without inflammation or induration. C/D/I Laboratory Results: Recent Labs 07/20/17 2300 07/21/17 1027 07/22/17 0035 07/22/17 2250 NA 137 -- 134* 134* K 2.8* 3.3* 3.6 4.6 CL 102 -- 100 100 BICARB 26 -- 26 27 BUN 9 -- 8 7 CR 0.60 -- 0.49* 0.45* GLU 95 -- 112* 104* CA 8.9 -- 8.3* 8.7 AST 30 -- 15 45* ALT 34 -- 26 24 AP 225* -- 190* 177* TBILI 0.7 -- 0.5 1.0 TP 6.6 -- 6.0* 6.7 ALB 3.2* -- 2.8* 2.9* Recent Labs 07/01/17 2318 07/02/17 2336 07/04/17 0040 07/22/17 0035 07/22/17 2250 07/23/17 0400 WBC 17.35* < > 3.52 < > 0.55* < > <0.10* <0.10* <0.10* RBC 2.47* < > 2.09* < > 2.23* < > 2.29* 1.97* 2.96* HB 7.4* < > 6.4* < > 6.7* < > 6.7* 5.9* 8.6* HCT 22.8* < > 19.2* < > 19.9* < > 18.6* 15.6* 23.5* PLT 12* < > 16* < > 7* < > 9* 65* 18* NEUTROPERC 13.2* -- 25.7* -- 32.5* -- -- -- -- LYMPHPERC 6.1* -- 5.3* -- 5.0* -- -- -- -- MONOPERC 0.9* -- 0.9* -- 10.0* -- -- -- -- BASOPERC 0.0 -- 0.0 -- 0.0 -- -- -- -- EOSPERC 0.0* -- 0.0* -- 0.0* -- -- -- -- < > = values in this interval not displayed. Meds: Reviewed on rounds, see current MAR for medication list SUMMARY OF PATIENT'S HOSPITALIZATION History of Present Illness: (from H&P) Rhea Hutchison is a 51-year-old woman with a history of COPD, depression, hypothyroidism, and AML diagnosed in late 2015 after she presented with pleuritic chest pain and shortness of br eath in addition to profound leukocytosis. Her disease was initially managed with 7+3+ Dasa tinib, course gated by neutropenic fevers, C. difficile, nodular groundglass opacities sudeep rning for invasive fungal infection (although galactomannan negative), treated with Isavucon azole -> Voriconazole. She was reinduced with Cytarabine and entered CR1. She subsequently relapsed in February 2017 started on FLAG-Arlette salvage-->CR2. Her course was subsequently c omplicated by bacterial pneumonia, otherwise recovered well Patient presents as a transfer from outside hospital ([facility]) where she pres ented with body aches and profound fatigue, anemic with new leukocytosis. Repeat bone marro w biopsy concerning for relapsed AML (blasts positive for CD 117, CD33). In the interim sin ce her initial admission, the patient endorses development of new new acute onset pleuritic left-sided chest pain. She states that this chest pain is stabbing, 5-6 out of 10 in intens ity. It is accompanied by a degree of resting dyspnea. Patient also endorses nagging cough productive of white/yellow sputum of approximately 1 week's duration. She denies constitut ional symptoms including fevers, chills, night sweats. She denies new palpitations. She de nies new oral lesions or odynophagia. She does endorse a degree of ongoing nausea but state s that that is baseline for her. She denies emesis. Endorses a degree of constipation. De nies deep new complaints. She does endorse a developing petechial rash over bilateral lo wer extremities, as well as her upper back. She denies new adenopathy. Hospitalization History: Hematology: #Relapsed Flt3 AML: Had salvage FLAG-Arlette + Midostaurin and Azacitidine bridge while awaitin g SCT now with relapse. Pertinent Diagnostics: -BM Bx 06/21/17 ([facility] [id number]): -Results: 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 myelogenous leukemia (60%); Blasts positive for CD117 and CD 33, negative for CD34, CD71, CD61, CD3 and PAX-5. -Cytogenetics: Normal -Genetrails: NPM1, DNMT3A, NRAS, TET2, FLT3 TKD mutations -06/30 peripheral blood flow and GeneTrails: -Flow: Recurrent acute myeloid leukemia (87% blasts) -GeneTrails not drawn Treatment -Chemotherapy regimen: Arlette + Maurizio-C, started 07/01/17 -Idarubicin 12 mg/m2 daily x 3 days -Cytarabine 1500 mg/m2 CI IV daily x 4 days. -Sorafenib authorization was denied -Chemo Day: 23 Patient is currently not a transplant candidate, but if it were to change, brother is a match #Pancytopenia secondary to chemotherapy: -See supportive care #Supportive Care: Growth factor: no growth factors required at this time Labs: Continue to check CBC daily Transfusion parameters: -Transfuse PRBCs for HCT <21% if asymptomatic -Transfuse PPH for platelet count <10,000 sooner PRN s/s bleeding Cardiovascular: Prechemo TTE on 06/29/17 shows EF of 65-70% #Hx of Hypertension: continues on home anti-hypertensives -Amlodipine 10mg daily -Lisinopril 5mg daily Pulmonary: #COPD: continues on home inhalers -Spiriva 18mcg daily -Albuterol PRN GI: #Abdominal pain: multifactorial, likely secondary to constipation, uncomplicated proctitis, and HSM. 06/29 CT AP showed uncomplicated proctitis, hepatosplenomegaly, and stool in rectum -Continue bowel regimen senna BID; MOM, Miralax, and Lactulose PRN -Fentanyl IV and oxycodone PO PRN pain #Transaminitis with hyperbilirubinemia: likely secondary to idarubicin and likely AML infil trates in liver responding to chemo. Resolved. -Monitor daily labs #SWAPNIL, no emesis: controlled -Antiemetics PRN #GERD: worse on 07/23 -Maalox PRN -Omeprazole to 40mg daily -Consider restarting carafate if heartburn persists #Diarrhea, likely due to chemotherapy: resolving. -Imodium PRN /Renal: #Overactive bladder: chronic issue -Oxybutynin CR 15mg daily Neuro/Psych: #Depression/anxiety -Cymbalta 90mg daily -Lorazepam PRN anxiety Endocrine: #Hypothyroidism: -Synthroid 37.5mcg daily Derm: #Rash: most consistent with drug rash. Derm consulted on 07/16 and diagnosed her with neutro philic eccrine hidradenitis most likely / to cytarabine. Rash resolved. -On face: triamcinolone 0.1% ointment BID x 3 days only. Then switch to hydrocortisone 2.5 % ointment BID, 07/17-07/23 -On body: triamcinolone 0.1% ointment BID, 07/17-07/23 Infectious Disease: #Non-neutropenic fever, with septic picture 06/29 with tachycardia, tachypnea. Afebrile at th e time, however spiked a fever on 07/01. Localizing symptoms include pleuritic pain and abdomi nal pain. Bld cx NGTD. 06/29 CTA showed left pleural effusion and adjacent atelectasis, no PE or consolidations. 06/29 CT AP showed uncomplicated proctitis, HSM with scattered areas of li maria m AML infiltration, extramedullary hematopoiesis or microabscesses -s/p zosyn (06/29- 07/17) #Neutropenic fever: noted on 07/20. Bld x 1 positive for pseudomonas. CXR neg -Zosyn (07/21- ) #Pseudomonas bacteremia: bld cx x 1 from 07/20 positive. Resistant to cipro and meropenem b ut sensitive to zosyn. Repeat cx from 07/21 shows NGTD. PICC pulled 07/22 -ID following. -Continue zosyn as above. #Prophylaxis: Bacterial: as above Fungal: reports using marijuana, risk for fungal infection. Started Posaconazole 07/04 after chemotherapy. Level adequate at 1.3 on 03/14/17 Viral: acyclovir PCP: not indicated Fluid/Nutrition/Lytes: #Nutrition: Current diet -- Regular No Felisha's yogurt or Kefir. #Fluid: 1L IVF PRN for PO intake <2L/day #Lytes: -Continue to check chemistries daily -Replace per supportive care protocol Disposition: TBD. Anticipate 4-6 week hospitalization [facility] [place] [id number] [facility] Mailcode: [facility] [place] [address] Angelia Thompson MD - 07/23/2017 9:32 AM PDTFormatting of this note may be different fr om the original. Hematologic Malignancies/Bone Marrow Transplant Inpatient Attending Progress Note: Hospital course summary: Rhea Hutchison is a 51 year old female with relapsed FLT3+ AML, admitted currently for re-briana ction with Idarubacin + Maurizio-C. She was diagnosed initially in January 2016 with favorable risk NPM1+ AML. A BMBx obtained 02/14/17 showed a hypercellular marrow with 51% blasts + p romonocytes. Cytogenetics 46 XX and genetrails with mutations in NPM1, DNMT3A, NRAS, TET2, and a FLT3 TKD mutation. She was enrolled on a clinical trial (7+3 PLUS) and underwent in duction with 7 + 3+ dasatinib. Her course was complicated by pneumonia concerning for inva sive fungal infection vs atypical pneumonia, received treatment with isavuconazole and then fluconazole for a total of 12 weeks. A post-induction BMBx was consistent with CR1, and sh olivia then completed consolidation with cytarabine given at 1500 mg/m2. She was well until Feb, when she presented with fevers and body pains. A CBC showed a WBC count of 103 k, hct 13.8 and plts 10k. 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 She underwent re-induction with FLAG-Arlette; midostaurin added at day +8. A BMBx obt ained after induction on 04/04/17 was consistent with CR2. She then begain maintenance ther apy with azacitadine + midostaurin, however in June of 2017 she presented with body aches a nd was found to again have relapsed disease. She is admitted now for re-induction with arlette rubacin + modofoed Maurizio-C. Course thus far complicated by proctitis, carbapenem resistant p seudomonal bacteremia and rash. I rounded today, 07/23/2017, in conjunction with the Advanced Practice Provider Shayna hodgson. I saw the patient, reviewed the history and relevant studies and developed an assessment an d plan. Subjective: Is feeling very stressed this morning; her landlord has been calling her and telling her to kick her daughter out of her apartment. Also asking for rent. Her GERD is acting up becau se of this stress. Objective: Last Vitals: BP 133/79 | Pulse 100 | Temp 37 C (98.6 F) | RR 16 | Ht 1.59 m (5' 2.6") | Wt 81 kg (178 lb 9.2 oz) | SpO2 95% | BMI 32.04 kg/(m^2) Gen: sitting up in bed, NAD HEENT: no oral lesions Lungs: CTA bilaterally CVS: RRR no M/G/R appreciated Abd: soft, NT Skin: + petechiae at ankles, improved Ext: no pitting edema Brief Assessment / Plan: - AML: Admitted now with relapsed disease (second relapse), undergoing re-induction with a modified idarubacin and Maurizio-C regimen. She is currently day +23of therapy, counts aggie in at jacquelin with ANC of 0, as anticipated (given multiple rounds of prior chemotherapy). S he is overall tolerating therapy well. Sorafenib was considered given her FLT3+ disease, h owever this was not covered by insurance. No day +14 marrow obtained as no escalation of t herapy planned. She will remain in the hospital until count recovery. She completed thera py as below: Chemotherapy regimen:Arlette + Maurizio-C, started 07/01/17 -Idarubicin 12 mg/m2 daily x 3 days -Cytarabine 1500 mg/m2 CI IV daily x 4 days. -Sorafenib authorization was denied - Neutropenic fevers: Fever 25 to 39.2. Blood aund urine cultures obtained; positive for pseudomonal bacteremia and sensitivities show meropenem resistance. She was started on Meropenem initially, but transitioned to Zosyn the following morning. Will continue Zosyn for at least a 2 week treatment course or until ANC > 500, whichever is longer. PICC remov ed, will wait for 48-72 hours of clear cultures before replacing. Of note did have non-neut ropenic fevers earlier in hospital stay on 06/29; aCT obtained 06/29 showed proctitis and a L pleural effusion. Blood cutlures with no growth, she was not neutropenic at the time. Toy baker was started on treatment with Zosyn; although she became neutropenic her antibiotics were de-escalated to levaquin after she had completed a 2-week course of treatment for her procti tis. Now with recurrent fevers will continue IV antibiotics until ANC recovered. - Zosyn 07/21 --> - PICC removed 07/22, will replace in 48-72h - Meropenem (07/20-07/21) - s/p Zosyn 06/29 - 07/17 - Rash: Currently resolved. Derm was consulted; they diagnosed her with neutrophilic eccr ine hidradenitis and recommended steroid creams. Appearance improved, will discontinue topic al creams today. - Hypertension: SBP in the 100-130 range, will continue home antihypertensives at current doses. - lisinopril 5 mg PO daily - amlodipine 10 mg PO daily - COPD: Well controlled, no symptoms of SOB or cough. Will continue home inhalers. - Spiriva 18 mcg daily - albuterol prn - GERD: Secondary to associated hiatal hernia. Takes PPIs at home. Is having a flare of symptoms today, triggered by stress. Continue PPI. - Omeprazole 40 mg PO daily - Overactive Bladder: Continue homme oxybutynin - Hypothyroidism: Continue home levothyroxine - Pancytopenia: Secondary to chemotherapy. Standard transfusion parameters as below: - transfuse 1 unit PRBC for hct <21 - transfuse 1 unit plts for plt <10k ID Propylaxis: Bacterial: as above Fungal: reports using marijuana, risk for fungal infection. Started Posaconazole 07/04, level 1.3 on 03/14/17 Viral: acyclovir PCP: not indicated I have updated the problem list to reflect those problems being actively managed. Active Problems: COPD (chronic obstructive pulmonary disease) (HCC) Anxiety and depression Acute myeloid leukemia not having achieved remission (HCC) Learning disability Rash of face Neutropenic fever (HCC) Pancytopenia due to antineoplastic chemotherapy (HCC) Transaminitis Hepatosplenomegaly Pleural effusion Proctitis Protein-calorie malnutrition, mild (HCC) Immunocompromised state (HCC) Chemotherapy induced diarrhea Please see the Advanced Practice Provider documentation from today for the full details reg arding the assessment and plan. Angelia Thompson MD Vitals: 24 Hour Vital Min/Max: Systolic (24hrs), Av , Min:115 , Max:137 Diastolic (24hrs), Av, Min:71, Max:95 Pulse Min: 89 Max: 105 Temp Min: 36.8 C (98.2 F) Max: 37.6 C (99.7 F) Resp Min: 16 Max: 18 SpO2 Min: 93 % Max: 100 % Intake/Output Summary (Last 24 hours) at 07/23/17 0932 Last data filed at 07/23/17 0735 Gross per 24 hour Intake 3410 ml Output 2775 ml Net 635 ml Labs: CBC with diff last 72 hours (or 3 results) - Refreshable Recent Labs 07/22/17 0035 07/22/17 2250 07/23/17 0400 WBC <0.10* <0.10* <0.10* HB 6.7* 5.9* 8.6* HCT 18.6* 15.6* 23.5* PLT 9* 65* 18* Lab Results Component Value Date NA 134 07/22/2017 K 4.6 07/22/2017 CL 100 07/22/2017 BICARB 27 07/22/2017 BUN 7 07/22/2017 EGFRAFRICAN >60 07/22/2017 EGFRNONAFR >60 07/22/2017 CR 0.45 07/22/2017 GLU 104 07/22/2017 CA 8.7 07/22/2017 ANIONGAP 7 07/22/2017 ANIONALBCOR 9 07/22/2017 Lab Results Component Value Date AST 45 07/22/2017 ALT 24 07/22/2017 TBILI 1.0 07/22/2017 AP 177 07/22/2017 TP 6.7 07/22/2017 ALB 2.9 07/22/2017 Medications: acetaminophen (TYLENOL) tablet 650 mg, 650 mg, oral, Q6H PRN acyclovir (ZOVIRAX) tablet 800 mg, 800 mg, oral, DAILY albuterol (PROVENTIL, VENTOLIN) 90 mcg/actuation inhaler 1 puff, 1 puff, inhalation, Q6H AR N alteplase (CATHFLO ACTIVASE) injection 2 mg, 2 mg, Intracatheter, PRN aluminum-magnesium hydroxide-simethicone (MAALOX; MYLANTA) 200-200-20 mg/5 mL suspension 30 mL, 30 mL, oral, QID PRN amLODIPine (NORVASC) tablet 10 mg, 10 mg, oral, DAILY dextrose 50 % in water IV 25 mL, 25 mL, intravenous, PRN vlscrgwylbMCNAM-wquanljhf-YNBWYD (SPECIAL MOUTHWASH) suspension (compound) 5-10 mL, 5-10 mL , oral, QID PRN diphenhydrAMINE-zinc acetate (BENADRYL ITCH STOPPING) 2-0.1 % cream, , topical, QID PRN DULoxetine (CYMBALTA) capsule 90 mg, 90 mg, oral, DAILY fentaNYL (SUBLIMAZE) injection 25-50 mcg, 25-50 mcg, intravenous, Q2H PRN glucagon (GLUCAGEN) injection 1 mg, 1 mg, intramuscular, PRN glucose chewable tablet 16 g, 16 g, oral, PRN haloperidol (HALDOL) tablet 0.5-1.5 mg, 0.5-1.5 mg, oral, Q4H PRN haloperidol lactate (HALDOL) injection 0.5-1.5 mg, 0.5-1.5 mg, intravenous, Q4H PRN hydrocortisone 2.5 % cream, , topical, BID lactulose (ENULAC) liquid 10 g, 15 mL, oral, TID PRN levothyroxine tablet 37.5 mcg, 37.5 mcg, oral, BEFORE BREAKFAST lisinopril (PRINIVIL) tablet 5 mg, 5 mg, oral, DAILY loperamide (IMODIUM) capsule 2-4 mg, 2-4 mg, oral, QID PRN loratadine (CLARITIN) tablet 10 mg, 10 mg, oral, DAILY LORazepam (ATIVAN) tablet 0.5 mg, 0.5 mg, oral, Q8H PRN magnesium hydroxide (MILK OF MAGNESIA) suspension 30 mL, 30 mL, oral, Q4H PRN magnesium sulfate in water IV (RTU) 4 g, 4 g, intravenous, PRN magnesium sulfate IV 8 g, 8 g, intravenous, PRN omeprazole (PRILOSEC) capsule 40 mg, 40 mg, oral, BEFORE BREAKFAST ondansetron (ZOFRAN) tablet 8 mg, 8 mg, oral, Q12H PRN oxybutynin CR (DITROPAN-XL) tablet 15 mg, 15 mg, oral, DAILY oxyCODONE (immediate release) (ROXICODONE) tablet 10-20 mg, 10-20 mg, oral, Q3H PRN piperacillin-tazobactam (ZOSYN) IV 4.5 g, 4.5 g, intravenous, Q6H polyethylene glycol (MIRALAX) packet 17 g, 17 g, oral, BID PRN [COMPLETED] posaconazole DR (NOXAFIL) tablet 300 mg, 300 mg, oral, BID FOLLOWED BY posa conazole DR (NOXAFIL) tablet 300 mg, 300 mg, oral, DAILY potassium chloride IV (peripheral line) 40 mEq, 40 mEq, intravenous, PRN OR potassium c hloride IV (peripheral line) 60 mEq, 60 mEq, intravenous, PRN potassium chloride SR (K-DUR) tablet 40 mEq, 40 mEq, oral, PRN potassium phosphate IV 30 mmol, 30 mmol, intravenous, PRN OR potassium phosphate IV 40 mmol, 40 mmol, intravenous, PRN prochlorperazine (COMPAZINE) tablet 5-10 mg, 5-10 mg, oral, Q6H PRN OR prochlorperazine (COMPAZINE) injection 5-10 mg, 5-10 mg, intravenous, Q6H PRN senna-docusate (SENOKOT S) 8.6-50 mg 2 tablet, 2 tablet, oral, BID PRN simethicone chew (MYLICON) tablet 80 mg, 80 mg, oral, TID PRN sodium chloride 0.9% IV infusion, 1,000 mL, intravenous, PRN sodium phosphate IV 30 mmol, 30 mmol, intravenous, PRN sodium phosphate IV 40 mmol, 40 mmol, intravenous, PRN tiotropium (SPIRIVA) inhalation 18 mcg, 18 mcg, inhalation, DAILY traZODone (DESYREL) dose 25-50 mg, 25-50 mg, oral, HS PRN [COMPLETED] triamcinolone acetonide (KENALOG) 0.1 % ointment, , topical, BID FOLLOWED BY* * triamcinolone acetonide (KENALOG) 0.1 % ointment, , topical, BID Shayna Gardiner PA - 07/22/2017 11:57 AM PDTFormatting of this note may be different fro m the original. Daily NICOLE Note - Chemotherapy Ad[facility] Attending: Angelia Thompson MD [facility] Physician: Pepe Chavis MD Local Oncologist: Daniel Patterson MD PCP: Saurav Small NP Date of Admission: 06/28/17 Hematologic Malignancy: AML ID: 51 yo woman with second relapse AML, FLT3 ITD admitted for evaluation and treatment. Hx COPD, Depression/PTSD, Disorder of Thyroid, HTN, Insomnia 24 Hour Events/Current Daily Plan: -Relapsed AML, Flt3: currently Arlette + modified Maurizio-C, currently day 22. Sorafenib insurance authorization/appeal rejected. Consider mylotarg for subsequent chemo cycles. Currently not a transplant candidate. -Pancytopenia secondary to chemotherapy: standard transfusion parameters. 1U PRBCs and 1U PPH today. -Neutropenic fever: noted on 07/20, restarted zosyn. Bld cx x 1 07/20 positive for pseudomon as. CXR neg for consolidation. -Pseudomonas bacteremia: bld cx x 1 from 07/20 positive. PICC will be pulled on 07/22 and re peat cxs pending. ID consulted. Continue zosyn as above. -Lytes: standard replacement protocol. None required today. Subjective: Feeling well today. Denies new complaints. Aware she is moving to 13K today. Objective: Last Vitals: BP 118/71 | Pulse 95 | Temp 37.2 C (99 F) | RR 20 | Ht 1.59 m (5' 2.6") | Wt 79.5 kg (175 lb 4.3 oz) | SpO2 94% | BMI 31.45 kg/(m^2) 24 Hour Vital Min/Max: Systolic (24hrs), Av , Min:110 , Max:126 Diastolic (24hrs), Av, Min:55, Max:79 Pulse Min: 95 Max: 106 Temp Min: 36.6 C (97.9 F) Max: 37.9 C (100.2 F) Resp Min: 16 Max: 20 SpO2 Min: 91 % Max: 98 % Intake/Output Summary (Last 24 hours) at 07/22/17 1157 Last data filed at 07/22/17 1154 Gross per 24 hour Intake 4240 ml Output 1445 ml Net 2795 ml Physical Exam: General: This is a female in no acute distress. Sitting in chair. HEENT: PERRL. Sclerae anicteric. No lesions noted in mouth Skin: Faint erythema noted to face, ecchymosis and petechiae noted to BLE. Chest: Lungs clear to auscultation bilat. CV: RRR, no murmurs. Abdomen: S/NT/ND with NABS. No HSM appreciated. Extremities: Pulses strong and equal bilaterally. No c/c/e NeuroPsych: Alert and oriented x 3. Grossly nonfocal exam. CVC: RUE PICC site without inflammation or induration. C/D/I Laboratory Results: Recent Labs 07/19/17 2305 07/20/17 2300 07/21/17 1027 07/22/17 0035 NA 139 137 -- 134* K 3.6 2.8* 3.3* 3.6 CL 105 102 -- 100 BICARB 27 26 -- 26 BUN 13 9 -- 8 CR 0.49* 0.60 -- 0.49* GLU 121* 95 -- 112* CA 8.7 8.9 -- 8.3* AST 23 30 -- 15 ALT 29 34 -- 26 AP 194* 225* -- 190* TBILI 0.5 0.7 -- 0.5 TP 6.2* 6.6 -- 6.0* ALB 3.0* 3.2* -- 2.8* Recent Labs 07/01/17 2318 07/02/17 2336 07/04/17 0040 07/19/17 2305 07/20/17 2300 07/22/17 0035 WBC 17.35* < > 3.52 < > 0.55* < > <0.10* <0.10* <0.10* RBC 2.47* < > 2.09* < > 2.23* < > 2.66* 2.79* 2.29* HB 7.4* < > 6.4* < > 6.7* < > 7.7* 8.1* 6.7* HCT 22.8* < > 19.2* < > 19.9* < > 21.4* 22.2* 18.6* PLT 12* < > 16* < > 7* < > 10* 22* 9* NEUTROPERC 13.2* -- 25.7* -- 32.5* -- -- -- -- LYMPHPERC 6.1* -- 5.3* -- 5.0* -- -- -- -- MONOPERC 0.9* -- 0.9* -- 10.0* -- -- -- -- BASOPERC 0.0 -- 0.0 -- 0.0 -- -- -- -- EOSPERC 0.0* -- 0.0* -- 0.0* -- -- -- -- < > = values in this interval not displayed. Meds: Reviewed on rounds, see current MAR for medication list SUMMARY OF PATIENT'S HOSPITALIZATION History of Present Illness: (from H&P) Rhea Hutchison is a 51-year-old woman with a history of COPD, depression, hypothyroidism, and AML diagnosed in late 2015 after she presented with pleuritic chest pain and shortness of br eath in addition to profound leukocytosis. Her disease was initially managed with 7+3+ Dasa tinib, course gated by neutropenic fevers, C. difficile, nodular groundglass opacities sudeep rning for invasive fungal infection (although galactomannan negative), treated with Isavucon azole -> Voriconazole. She was reinduced with Cytarabine and entered CR1. She subsequently relapsed in February 2017 started on FLAG-Arlette salvage-->CR2. Her course was subsequently c omplicated by bacterial pneumonia, otherwise recovered well Patient presents as a transfer from outside hospital ([facility]) where she pres ented with body aches and profound fatigue, anemic with new leukocytosis. Repeat bone marro w biopsy concerning for relapsed AML (blasts positive for CD 117, CD33). In the interim sin ce her initial admission, the patient endorses development of new new acute onset pleuritic left-sided chest pain. She states that this chest pain is stabbing, 5-6 out of 10 in intens ity. It is accompanied by a degree of resting dyspnea. Patient also endorses nagging cough productive of white/yellow sputum of approximately 1 week's duration. She denies constitut ional symptoms including fevers, chills, night sweats. She denies new palpitations. She de nies new oral lesions or odynophagia. She does endorse a degree of ongoing nausea but state s that that is baseline for her. She denies emesis. Endorses a degree of constipation. De nies deep new complaints. She does endorse a developing petechial rash over bilateral lo wer extremities, as well as her upper back. She denies new adenopathy. Hospitalization History: Hematology: #Relapsed Flt3 AML: Had salvage FLAG-Arlette + Midostaurin and Azacitidine bridge while awaitin g SCT now with relapse. Pertinent Diagnostics: -BM Bx 06/21/17 ([facility] [id number]): -Results: 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 myelogenous leukemia (60%); Blasts positive for CD117 and CD 33, negative for CD34, CD71, CD61, CD3 and PAX-5. -Cytogenetics: Normal -Genetrails: NPM1, DNMT3A, NRAS, TET2, FLT3 TKD mutations -3/4 peripheral blood flow and GeneTrails: -Flow: Recurrent acute myeloid leukemia (87% blasts) -GeneTrails not drawn Treatment -Chemotherapy regimen: Arlette + Maurizio-C, started 07/01/17 -Idarubicin 12 mg/m2 daily x 3 days -Cytarabine 1500 mg/m2 CI IV daily x 4 days. -Sorafenib authorization was denied -Chemo Day: 22 Patient is currently not a transplant candidate, but if it were to change, brother is a match #Pancytopenia secondary to chemotherapy: -See supportive care #Supportive Care: Growth factor: no growth factors required at this time Labs: Continue to check CBC daily Transfusion parameters: -Transfuse PRBCs for HCT <21% if asymptomatic -Transfuse PPH for platelet count <10,000 sooner PRN s/s bleeding Cardiovascular: Prechemo TTE on 06/29/17 shows EF of 65-70% #Hx of Hypertension: continues on home anti-hypertensives -Amlodipine 10mg daily -Lisinopril 5mg daily Pulmonary: #COPD: continues on home inhalers -Spiriva 18mcg daily -Albuterol PRN GI: #Abdominal pain: multifactorial, likely secondary to constipation, uncomplicated proctitis, and HSM. 06/29 CT AP showed uncomplicated proctitis, hepatosplenomegaly, and stool in rectum -Continue bowel regimen senna BID; MOM, Miralax, and Lactulose PRN -Fentanyl IV and oxycodone PO PRN pain #Transaminitis with hyperbilirubinemia: likely secondary to idarubicin and likely AML infil trates in liver responding to chemo. Resolved. -Monitor daily labs #SWAPNIL, no emesis: controlled -Antiemetics PRN #GERD: controlled -Omeprazole to 40mg daily -Carafate QID #Diarrhea, likely due to chemotherapy: resolving. -Imodium PRN /Renal: #Overactive bladder: chronic issue -Oxybutynin CR 15mg daily Neuro/Psych: #Depression/anxiety -Cymbalta 90mg daily -Lorazepam PRN anxiety Endocrine: #Hypothyroidism: -Synthroid 37.5mcg daily Derm: #Rash: most consistent with drug rash. 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 -On face: triamcinolone 0.1% ointment BID x 3 days only. Then switch to hydrocortisone 2.5 % ointment BID x 1-2 weeks, started 07/17 -On body: triamcinolone 0.1% ointment BID x 1-2 weeks, started 07/17 Infectious Disease: #Non-neutropenic fever, with septic picture 06/29 with tachycardia, tachypnea. Afebrile at th e time, however spiked a fever on 07/01. Localizing symptoms include pleuritic pain and abdomi nal pain. Bld cx NGTD. 06/29 CTA showed left pleural effusion and adjacent atelectasis, no PE or consolidations. 06/29 CT AP showed uncomplicated proctitis, HSM with scattered areas of li maria m AML infiltration, extramedullary hematopoiesis or microabscesses -s/p zosyn (06/29- 07/17) #Neutropenic fever: noted on 07/20. Bld x 1 positive for pseudomonas. CXR neg -Zosyn (07/21- ) #Pseudomonas bacteremia: bld cx x 1 from 07/20 positive. -PICC will be pulled on 07/22 -Repeat cxs pending. -ID consulted. -Continue zosyn as above. #Prophylaxis: Bacterial: as above Fungal: reports using marijuana, risk for fungal infection. Started Posaconazole 07/04 after chemotherapy. Level adequate at 1.3 on 03/14/17 Viral: acyclovir PCP: not indicated Fluid/Nutrition/Lytes: #Nutrition: Current diet -- Regular No Felisha's yogurt or Kefir. #Fluid: 1L IVF PRN for PO intake <2L/day #Lytes: -Continue to check chemistries daily -Replace per supportive care protocol Disposition: TBD. Anticipate 4-6 week hospitalization [facility] [address] [facility] Mailcode: [email or web address] [place] [address] Angelia Thompson MD - 07/22/2017 9:08 AM PDTFormatting of this note may be different fr om the original. Hematologic Malignancies/Bone Marrow Transplant Inpatient Attending Progress Note: Hospital course summary: Rhea Hutchison is a 51 year old female with relapsed FLT3+ AML, admitted currently for re-briana ction with Idarubacin + Maurizio-C. She was diagnosed initially in January 2016 with favorable risk NPM1+ AML. A BMBx obtained 02/14/17 showed a hypercellular marrow with 51% blasts + p romonocytes. Cytogenetics 46 XX and genetrails with mutations in NPM1, DNMT3A, NRAS, TET2, and a FLT3 TKD mutation. She was enrolled on a clinical trial (7+3 PLUS) and underwent in duction with 7 + 3+ dasatinib. Her course was complicated by pneumonia concerning for inva sive fungal infection vs atypical pneumonia, received treatment with isavuconazole and then fluconazole for a total of 12 weeks. A post-induction BMBx was consistent with CR1, and toy baker then completed consolidation with cytarabine given at 1500 mg/m2. She was well until Feb, when she presented with fevers and body pains. A CBC showed a WBC count of 103 k, hct 13.8 and plts 10k. 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 She underwent re-induction with FLAG-Arlette; midostaurin added at day +8. A BMBx obt ained after induction on 04/04/17 was consistent with CR2. She then begain maintenance ther apy with azacitadine + midostaurin, however in June of 2017 she presented with body aches a nd was found to again have relapsed disease. She is admitted now for re-induction with arlette rubacin + modofoed Maurizio-C. Course thus far complicated by proctitis and non-neutropenic fev ers. I rounded today, 07/22/2017, in conjunction with the Advanced Practice Provider Shayna hodgson. I saw the patient, reviewed the history and relevant studies and developed an assessment an d plan. Subjective: Fells much better today, thinks antibiotics are working. Energy is back up and she has bee n out walking in the hallways. Was told that she has to move to a room downstairs today, toy baker is going to miss her friends on 14k. Objective: Last Vitals: BP 118/71 | Pulse 95 | Temp 37.2 C (99 F) | RR 20 | Ht 1.59 m (5' 2.6") | Wt 79.5 kg (175 lb 4.3 oz) | SpO2 94% | BMI 31.45 kg/(m^2) Gen: sitting up in chair in middle of room, NAD HEENT: no oral lesions Lungs: CTA bilaterally CVS: RRR no M/G/R appreciated Abd: soft, NT Skin: + petechiae at ankles, unchanged Neuro: CN II-XII grossly intact Ext: no pitting edema Brief Assessment / Plan: - AML: Admitted now with relapsed disease (second relapse), undergoing re-induction with a modified idarubacin and Maurizio-C regimen. She is currently day +22 of therapy, counts remai n at jacquelin with ANC of 0, as anticipated. She is overall tolerating therapy well. Fabrizio wayne was considered given her FLT3+ disease, however this was not covered by insurance. No day +14 marrow obtained as no escalation of therapy planned. She will remain in the [facility] until count recovery. She completed therapy as below: Chemotherapy regimen:Arlette + Maurizio-C, started 07/01/17 -Idarubicin 12 mg/m2 daily x 3 days -Cytarabine 1500 mg/m2 CI IV daily x 4 days. -Sorafenib authorization was denied - Neutropenic fevers: Fever 07/21 to 39.2. Blood aund urine cultures obtained; positive f or pseudomonal bacteremia and sensitivities show meropenem resistance. She was started on M eropenem initially, but transitioned to Zosyn the following morning. Will continue Zosyn fo r at least a 2 week treatment course or until ANC > 500, whichever is longer. PICC removed, will wait for 48-72 hours of clear cultures before replacing. Of note did have non-neutrop enic fevers earlier in hospital stay on 06/29; a CT obtained 06/29 showed proctitis and a L pleu ral effusion. Blood cutlures with no growth, she was not neutropenic at the time. She wa s started on treatment with Zosyn; although she became neutropenic her antibiotics were de-e scalated to levaquin after she had completed a 2-week course of treatment for her proctitis. Now with recurrent fevers will continue IV antibiotics until ANC recovered. - Zosyn 07/21 --> - PICC removed, will replace in 48-72h - Meropenem (07/20-07/21) - s/p Zosyn 06/29 - 07/17 - Rash: Currently resolved. Derm was consulted; they diagnosed her with neutrophilic eccr ine hidradenitis and recommended steroid creams. Appearance stable. Regimen as below. -On face: triamcinolone 0.1% ointment BID x 3 days followed byh ydrocortisone 2.5% ointment BID x 1-2 weeks, started 07/17 -On body: triamcinolone 0.1% ointment BID x 1-2 weeks, started - Hypertension: SBP in the 100-130 range, will continue home antihypertensives at current doses. - lisinopril 5 mg PO daily - amlodipine 10 mg PO daily - COPD: Well controlled, no symptoms of SOB or cough. Will continue home inhalers. - Spiriva 18 mcg daily - albuterol prn - GERD: Secondary to associated hiatal hernia. Takes PPIs at home. Symptoms currently well controlled. - Omeprazole 40 mg PO daily - Overactive Bladder: Continue homme oxybutynin - Hypothyroidism: Continue home levothyroxine - Pancytopenia: Secondary to chemotherapy. Standard transfusion parameters as below: - transfuse 1 unit PRBC for hct <21 - transfuse 1 unit plts for plt <10k ID Propylaxis: Bacterial: as above Fungal: reports using marijuana, risk for fungal infection. Started Posaconazole 07/04, level 1.3 on 03/14/17 Viral: acyclovir PCP: not indicated I have updated the problem list to reflect those problems being actively managed. Active Problems: COPD (chronic obstructive pulmonary disease) (HCC) Anxiety and depression Acute myeloid leukemia not having achieved remission (HCC) Learning disability Rash of face Neutropenic fever (HCC) Pancytopenia due to antineoplastic chemotherapy (HCC) Transaminitis Hepatosplenomegaly Pleural effusion Proctitis Protein-calorie malnutrition, mild (HCC) Immunocompromised state (HCC) Chemotherapy induced diarrhea Please see the Advanced Practice Provider documentation from today for the full details reg arding the assessment and plan. Angelia Thompson MD Vitals: 24 Hour Vital Min/Max: Systolic (24hrs), Av , Min:110 , Max:126 Diastolic (24hrs), Av, Min:55, Max:79 Pulse Min: 95 Max: 106 Temp Min: 36.6 C (97.9 F) Max: 37.9 C (100.2 F) Resp Min: 16 Max: 20 SpO2 Min: 91 % Max: 98 % Intake/Output Summary (Last 24 hours) at 07/22/17 0908 Last data filed at 07/22/17 0641 Gross per 24 hour Intake 3335 ml Output 1338 ml Net 1997 ml Labs: CBC with diff last 72 hours (or 3 results) - Refreshable Recent Labs 07/19/17 2305 07/20/17 2300 07/22/17 0035 WBC <0.10* <0.10* <0.10* HB 7.7* 8.1* 6.7* HCT 21.4* 22.2* 18.6* PLT 10* 22* 9* Lab Results Component Value Date NA 134 07/22/2017 K 3.6 07/22/2017 CL 100 07/22/2017 BICARB 26 07/22/2017 BUN 8 07/22/2017 EGFRAFRICAN >60 07/22/2017 EGFRNONAFR >60 07/22/2017 CR 0.49 07/22/2017 GLU 112 07/22/2017 CA 8.3 07/22/2017 ANIONGAP 8 07/22/2017 ANIONALBCOR 11 07/22/2017 Lab Results Component Value Date AST 15 07/22/2017 ALT 26 07/22/2017 TBILI 0.5 07/22/2017 AP 190 07/22/2017 TP 6.0 07/22/2017 ALB 2.8 07/22/2017 Medications: acetaminophen (TYLENOL) tablet 650 mg, 650 mg, oral, Q6H PRN acyclovir (ZOVIRAX) tablet 800 mg, 800 mg, oral, DAILY albuterol (PROVENTIL, VENTOLIN) 90 mcg/actuation inhaler 1 puff, 1 puff, inhalation, Q6H AR N alteplase (CATHFLO ACTIVASE) injection 2 mg, 2 mg, Intracatheter, PRN aluminum-magnesium hydroxide-simethicone (MAALOX; MYLANTA) 200-200-20 mg/5 mL suspension 30 mL, 30 mL, oral, QID PRN amLODIPine (NORVASC) tablet 10 mg, 10 mg, oral, DAILY dextrose 50 % in water IV 25 mL, 25 mL, intravenous, PRN [id number] (SPECIAL MOUTHWASH) suspension (compound) 5-10 mL, 5-10 mL , oral, QID PRN diphenhydrAMINE-zinc acetate (BENADRYL ITCH STOPPING) 2-0.1 % cream, , topical, QID PRN DULoxetine (CYMBALTA) capsule 90 mg, 90 mg, oral, DAILY fentaNYL (SUBLIMAZE) injection 25-50 mcg, 25-50 mcg, intravenous, Q2H PRN glucagon (GLUCAGEN) injection 1 mg, 1 mg, intramuscular, PRN glucose chewable tablet 16 g, 16 g, oral, PRN haloperidol (HALDOL) tablet 0.5-1.5 mg, 0.5-1.5 mg, oral, Q4H PRN haloperidol lactate (HALDOL) injection 0.5-1.5 mg, 0.5-1.5 mg, intravenous, Q4H PRN hydrocortisone 2.5 % cream, , topical, BID lactulose (ENULAC) liquid 10 g, 15 mL, oral, TID PRN levothyroxine tablet 37.5 mcg, 37.5 mcg, oral, BEFORE BREAKFAST lisinopril (PRINIVIL) tablet 5 mg, 5 mg, oral, DAILY loperamide (IMODIUM) capsule 2-4 mg, 2-4 mg, oral, QID PRN loratadine (CLARITIN) tablet 10 mg, 10 mg, oral, DAILY LORazepam (ATIVAN) tablet 0.5 mg, 0.5 mg, oral, Q8H PRN magnesium hydroxide (MILK OF MAGNESIA) suspension 30 mL, 30 mL, oral, Q4H PRN magnesium sulfate in water IV (RTU) 4 g, 4 g, intravenous, PRN magnesium sulfate IV 8 g, 8 g, intravenous, PRN omeprazole (PRILOSEC) capsule 40 mg, 40 mg, oral, BEFORE BREAKFAST ondansetron (ZOFRAN) tablet 8 mg, 8 mg, oral, Q12H PRN oxybutynin CR (DITROPAN-XL) tablet 15 mg, 15 mg, oral, DAILY oxyCODONE (immediate release) (ROXICODONE) tablet 10-20 mg, 10-20 mg, oral, Q3H PRN piperacillin-tazobactam (ZOSYN) IV 4.5 g, 4.5 g, intravenous, Q6H polyethylene glycol (MIRALAX) packet 17 g, 17 g, oral, BID PRN [COMPLETED] posaconazole DR (NOXAFIL) tablet 300 mg, 300 mg, oral, BID FOLLOWED BY posa conazole DR (NOXAFIL) tablet 300 mg, 300 mg, oral, DAILY potassium chloride IV (central line) 40 mEq, 40 mEq, intravenous, PRN OR potassium chlo ride IV (central line) 60 mEq, 60 mEq, intravenous, PRN potassium chloride SR (K-DUR) tablet 40 mEq, 40 mEq, oral, PRN potassium phosphate IV 30 mmol, 30 mmol, intravenous, PRN OR potassium phosphate IV 40 mmol, 40 mmol, intravenous, PRN prochlorperazine (COMPAZINE) tablet 5-10 mg, 5-10 mg, oral, Q6H PRN OR prochlorperazine (COMPAZINE) injection 5-10 mg, 5-10 mg, intravenous, Q6H PRN senna-docusate (SENOKOT S) 8.6-50 mg 2 tablet, 2 tablet, oral, BID PRN simethicone chew (MYLICON) tablet 80 mg, 80 mg, oral, TID PRN sodium chloride 0.9% IV infusion, 1,000 mL, intravenous, PRN sodium phosphate IV 30 mmol, 30 mmol, intravenous, PRN sodium phosphate IV 40 mmol, 40 mmol, intravenous, PRN tiotropium (SPIRIVA) inhalation 18 mcg, 18 mcg, inhalation, DAILY traZODone (DESYREL) dose 25-50 mg, 25-50 mg, oral, HS PRN [COMPLETED] triamcinolone acetonide (KENALOG) 0.1 % ointment, , topical, BID FOLLOWED BY* * triamcinolone acetonide (KENALOG) 0.1 % ointment, , topical, BID Shayna Gardiner PA - 07/21/2017 11:15 AM PDTFormatting of this note may be different fro m the original. Daily NICOLE Note - Chemotherapy [facility] Attending: Angelia Thompson MD [facility] Physician: Pepe Chavis MD Local Oncologist: Daniel Patterson MD PCP: Saurav Small NP Date of Admission: 06/28/17 Hematologic Malignancy: AML ID: 51 yo woman with second relapse AML, FLT3 ITD admitted for evaluation and treatment. Hx COPD, Depression/PTSD, Disorder of Thyroid, HTN, Insomnia 24 Hour Events/Current Daily Plan: -Relapsed AML, Flt3: currently Arlette + modified Maurizio-C, currently day 21. Sorafenib insurance authorization/appeal rejected. Consider mylotarg for subsequent chemo cycles. Currently not a transplant candidate. -Pancytopenia secondary to chemotherapy: standard transfusion parameters. There is no bloo d product support required at this time. -Neutropenic fever: noted on 07/20, restarted zosyn. Bld cxs pending, CXR neg for consolida tion. -Lytes: standard replacement protocol. Requires potassium, phos and magnesium today. Subjective: [place] more tired yesterday and then very cold prior to fever. Feeling better to day. Objective: Last Vitals: BP 120/75 | Pulse 102 | Temp 37.2 C (99 F) | RR 18 | Ht 1.59 m (5' 2.6") | Wt 77.6 kg (171 lb 1.2 oz) | SpO2 96% | BMI 30.7 kg/(m^2) 24 Hour Vital Min/Max: Systolic (24hrs), Av , Min:103 , Max:153 Diastolic (24hrs), Av, Min:58, Max:89 Pulse Min: 91 Max: 130 Temp Min: 36.5 C (97.7 F) Max: 39.2 C (102.6 F) Resp Min: 18 Max: 22 SpO2 Min: 91 % Max: 100 % Intake/Output Summary (Last 24 hours) at 07/21/17 1115 Last data filed at 07/21/17 1029 Gross per 24 hour Intake 3630 ml Output 3073 ml Net 557 ml Physical Exam: General: This is a female in no acute distress. Sitting in chair. HEENT: PERRL. Sclerae anicteric. No lesions noted in mouth Skin: Erythematous, macular rash of face/left lateral neck-less bright red Chest: Lungs clear to auscultation bilat. CV: RRR, no murmurs. Abdomen: S/NT/ND with NABS. No HSM appreciated. Extremities: Pulses strong and equal bilaterally. No c/c/BLE with petechiae NeuroPsych: Alert and oriented x 3. Grossly nonfocal exam. CVC: RUE PICC site without inflammation or induration. C/D/I Laboratory Results: Recent Labs 07/18/17 2305 07/19/17 2305 07/20/17 2300 NA 138 139 137 K 3.5 3.6 2.8* CL 103 105 102 BICARB 25 27 26 BUN 13 13 9 CR 0.57* 0.49* 0.60 GLU 95 121* 95 CA 9.1 8.7 8.9 AST 19 23 30 ALT 28 29 34 AP 199* 194* 225* TBILI 0.9 0.5 0.7 TP 6.3* 6.2* 6.6 ALB 3.1* 3.0* 3.2* Recent Labs 07/01/17 2318 07/02/17 2336 07/04/17 0040 07/18/17 23007/19/17 2305 07/20/17 2300 WBC 17.35* < > 3.52 < > 0.55* < > <0.10* <0.10* <0.10* RBC 2.47* < > 2.09* < > 2.23* < > 2.85* 2.66* 2.79* HB 7.4* < > 6.4* < > 6.7* < > 8.3* 7.7* 8.1* HCT 22.8* < > 19.2* < > 19.9* < > 23.5* 21.4* 22.2* PLT 12* < > 16* < > 7* < > 18* 10* 22* NEUTROPERC 13.2* -- 25.7* -- 32.5* -- -- -- -- LYMPHPERC 6.1* -- 5.3* -- 5.0* -- -- -- -- MONOPERC 0.9* -- 0.9* -- 10.0* -- -- -- -- BASOPERC 0.0 -- 0.0 -- 0.0 -- -- -- -- EOSPERC 0.0* -- 0.0* -- 0.0* -- -- -- -- < > = values in this interval not displayed. Meds: Reviewed on rounds, see current MAR for medication list SUMMARY OF PATIENT'S HOSPITALIZATION History of Present Illness: (from H&P) Rhea Hutchison is a 51-year-old woman with a history of COPD, depression, hypothyroidism, and AML diagnosed in late 2015 after she presented with pleuritic chest pain and shortness of br eath in addition to profound leukocytosis. Her disease was initially managed with 7+3+ Dasa tinib, course gated by neutropenic fevers, C. difficile, nodular groundglass opacities sudeep rning for invasive fungal infection (although galactomannan negative), treated with Isavucon azole -> Voriconazole. She was reinduced with Cytarabine and entered CR1. She subsequently relapsed in February 2017 started on FLAG-Arlette salvage-->CR2. Her course was subsequently c omplicated by bacterial pneumonia, otherwise recovered well Patient presents as a transfer from outside hospital ([facility]) where she pres ented with body aches and profound fatigue, anemic with new leukocytosis. Repeat bone marro w biopsy concerning for relapsed AML (blasts positive for CD 117, CD33). In the interim sin ce her initial admission, the patient endorses development of new new acute onset pleuritic left-sided chest pain. She states that this chest pain is stabbing, 5-6 out of 10 in intens ity. It is accompanied by a degree of resting dyspnea. Patient also endorses nagging cough productive of white/yellow sputum of approximately 1 week's duration. She denies constitut ional symptoms including fevers, chills, night sweats. She denies new palpitations. She de nies new oral lesions or odynophagia. She does endorse a degree of ongoing nausea but state s that that is baseline for her. She denies emesis. Endorses a degree of constipation. De nies deep new complaints. She does endorse a developing petechial rash over bilateral lo wer extremities, as well as her upper back. She denies new adenopathy. Hospitalization History: Hematology: #Relapsed Flt3 AML: Had salvage FLAG-Arlette + Midostaurin and Azacitidine bridge while awaitin g SCT now with relapse. Pertinent Diagnostics: -BM Bx 06/21/17 ([employer] [facility] [id number]): -Results: 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 myelogenous leukemia (60%); Blasts positive for CD117 and CD 33, negative for CD34, CD71, CD61, CD3 and PAX-5. -Cytogenetics: Normal -Genetrails: NPM1, DNMT3A, NRAS, TET2, FLT3 TKD mutations -06/30 peripheral blood flow and GeneTrails: -Flow: Recurrent acute myeloid leukemia (87% blasts) -GeneTrails not drawn Treatment -Chemotherapy regimen: Arlette + Maurizio-C, started 07/01/17 -Idarubicin 12 mg/m2 daily x 3 days -Cytarabine 1500 mg/m2 CI IV daily x 4 days. -Sorafenib authorization was denied -Chemo Day: 21 Patient is currently not a transplant candidate, but if it were to change, brother is a match #Pancytopenia secondary to chemotherapy: -See supportive care #Supportive Care: Growth factor: no growth factors required at this time Labs: Continue to check CBC daily Transfusion parameters: -Transfuse PRBCs for HCT <21% if asymptomatic -Transfuse PPH for platelet count <10,000 sooner PRN s/s bleeding Cardiovascular: Prechemo TTE on 06/29/17 shows EF of 65-70% #Hx of Hypertension: continues on home anti-hypertensives -Amlodipine 10mg daily -Lisinopril 5mg daily Pulmonary: #COPD: continues on home inhalers -Spiriva 18mcg daily -Albuterol PRN GI: #Abdominal pain: multifactorial, likely secondary to constipation, uncomplicated proctitis, and HSM. 06/29 CT AP showed uncomplicated proctitis, hepatosplenomegaly, and stool in rectum -Continue bowel regimen senna BID; MOM, Miralax, and Lactulose PRN -Fentanyl IV and oxycodone PO PRN pain #Transaminitis with hyperbilirubinemia: likely secondary to idarubicin and likely AML infil trates in liver responding to chemo. Resolved. -Monitor daily labs #SWAPNIL, no emesis: controlled -Antiemetics PRN #GERD: controlled -Omeprazole to 40mg daily -Carafate QID #Diarrhea, likely due to chemotherapy: resolving. -Imodium PRN /Renal: #Overactive bladder: chronic issue -Oxybutynin CR 15mg daily Neuro/Psych: #Depression/anxiety -Cymbalta 90mg daily -Lorazepam PRN anxiety Endocrine: #Hypothyroidism: -Synthroid 37.5mcg daily Derm: #Rash: most consistent with drug rash. Derm consulted on 07/16 and diagnosed her with neutro philic eccrine hidradenitis most likely / to cytarabine. -On face: triamcinolone 0.1% ointment BID x 3 days only. Then switch to hydrocortisone 2.5 % ointment BID x 1-2 weeks, started 07/17 -On body: triamcinolone 0.1% ointment BID x 1-2 weeks, started 07/17 Infectious Disease: #Non-neutropenic fever, with septic picture 06/29 with tachycardia, tachypnea. Afebrile at th e time, however spiked a fever on 07/01. Localizing symptoms include pleuritic pain and abdomi nal pain. Bld cx NGTD. 06/29 CTA showed left pleural effusion and adjacent atelectasis, no PE or consolidations. 06/29 CT AP showed uncomplicated proctitis, HSM with scattered areas of li maria m AML infiltration, extramedullary hematopoiesis or microabscesses -s/p zosyn (06/29- 07/17) #Neutropenic fever: noted on 07/20. CXR neg -F/u bld cxs -Zosyn (07/21- ) #Prophylaxis: Bacterial: as above Fungal: reports using marijuana, risk for fungal infection. Started Posaconazole 07/04 after chemotherapy. Level adequate at 1.3 on 03/14/17 Viral: acyclovir PCP: not indicated Fluid/Nutrition/Lytes: #Nutrition: Current diet -- Regular No Felisha's yogurt or Kefir. #Fluid: 1L IVF PRN for PO intake <2L/day #Lytes: -Continue to check chemistries daily -Replace per supportive care protocol Disposition: TBD. Anticipate 4-6 week hospitalization [facility] [id number] [facility] Mailcode: [email or web address] [place] [address] Angelia Thompson MD - 07/21/2017 10:00 AM PDTFormatting of this note may be different fr om the original. Hematologic Malignancies/Bone Marrow Transplant Inpatient Attending Progress Note: Hospital course summary: Rhea Hutchison is a 51 year old female with relapsed FLT3+ AML, admitted currently for re-briana ction with Idarubacin + Maurizio-C. She was diagnosed initially in January 2016 with favorable r isk NPM1+ AML. A BMBx obtained 02/14/17 showed a hypercellular marrow with 51% blasts + pro monocytes. Cytogenetics 46 XX and genetrails with mutations in NPM1, DNMT3A, NRAS, TET2, an d a FLT3 TKD mutation. She was enrolled on a clinical trial (7+3 PLUS) and underwent induct ion with 7 + 3+ dasatinib. Her course was complicated by pneumonia concerning for invasive fungal infection vs atypical pneumonia, received treatment with isavuconazole and then fluco nazole for a total of 12 weeks. A post-induction BMBx was consistent with CR1, and she then completed consolidation with cytarabine given at 1500 mg/m2. She was well until February 28, when she presented with fevers and body pains. A CBC showed a WBC count of 103k, hct 1 3.8 and plts 10k. Relapse was confirmed by peripheral blood flow cytometry, which showed re lapsed AML, cytogenetics now with a FLT3 ITD mutation, and cytogenetics with 46 X t(X;7). S he underwent re-induction with FLAG-Arlette; midostaurin added at day +8. A BMBx obtained after induction on 04/04/17 was consistent with CR2. She then begain maintenance therapy with aza citadine + midostaurin, however in June of 2017 she presented with body aches and was found to again have relapsed disease. She is admitted now for re-induction with idarubacin + mod ofoed Maurizio-C. Course thus far complicated by proctitis and non-neutropenic fevers. I rounded today, 07/21/2017, in conjunction with the Advanced Practice Provider Shayna hodgson. I saw the patient, reviewed the history and relevant studies and developed an assessment an d plan. Subjective: Had another fever overnight last night. Reports that yesterday afternoon she felt very col d and was shaking. She was more tired than usual and not able to walk. Also not very hungr y. Feels much better this morning. Objective: Last Vitals: BP 120/75 | Pulse 102 | Temp 37.2 C (99 F) | RR 18 | Ht 1.59 m (5' 2.6") | Wt 77.6 kg (171 lb 1.2 oz) | SpO2 96% | BMI 30.7 kg/(m^2) Gen: sitting up in chair in middle of room, NAD HEENT: no oral lesions Lungs: CTA bilaterally CVS: RRR no M/G/R appreciated Abd: soft, NT Skin: + petechiae at ankles Neuro: CN II-XII grossly intact Ext: no pitting edema Brief Assessment / Plan: - AML: Admitted now with relapsed disease (second relapse), undergoing re-induction with a modified idarubacin and Maurizio-C regimen. She is currently day +21 of therapy, counts remain at jacquelin with ANC of 0. She is overall tolerating therapy well. Sorafenib was considered g iven her FLT3+ disease, however this was not covered by insurance. No day +14 marrow obtain ed as no escalation of therapy planned. She will remain in the hospital until count recover y. She completed therapy as below: Chemotherapy regimen:Arlette + Maurizio-C, started 07/01/17 -Idarubicin 12 mg/m2 daily x 3 days -Cytarabine 1500 mg/m2 CI IV daily x 4 days. -Sorafenib authorization was denied - Neutropenic fevers: Fever overnight to 39.2. Blood aund urine cultures obtained; result s pending. She was started on Meropenem given concern for drug rash from Zosyn, however was on zosyn earlier in hospital stay and rash more likely secondary to cytarabine. Will switc h back to Zosyn today. Of note did have non-neutropenic fevers earlier in hospital stay on 06/29; a CT obtained 06/29 showed proctitis and a L pleural effusion. Blood cutlures with no gr owth, she was not neutropenic at the time. She was started on treatment with Zosyn; althoug h she became neutropenic her antibiotics were de-escalated to levaquin after she had complet ed a 2-week course of treatment for her proctitis. Now with recurrent fevers will continue IV antibiotics until ANC recovered. - Meropenem (07/20-07/21) - Zosyn 07/21 --> - s/p Zosyn 06/29 - 07/17 - Rash: Currently resolved. Derm was consulted; they diagnosed her with neutrophilic eccri ne hidradenitis and recommended steroid creams. Appearance stable. Regimen as below. -On face: triamcinolone 0.1% ointment BID x 3 days followed by hy drocortisone 2.5% ointment BID x 1-2 weeks, started 07/17 -On body: triamcinolone 0.1% ointment BID x 1-2 weeks, started - Hypertension: SBP in the 100-150 range, will continue home antihypertensives at current doses. - lisinopril 5 mg PO daily - amlodipine 10 mg PO daily - COPD: Well controlled, no symptoms of SOB or cough. Will continue home inhalers. - Spiriva 18 mcg daily - albuterol prn - GERD: Secondary to associated hiatal hernia. Takes PPIs at home. Symptoms currently we ll controlled. - Omeprazole 40 mg PO daily - Overactive Bladder: Continue homme oxybutynin - Hypothyroidism: Continue home levothyroxine - Pancytopenia: Secondary to chemotherapy. Standard transfusion parameters as below: - transfuse 1 unit PRBC for hct < 21 - transfuse 1 unit plts for plt < 10k ID Propylaxis: Bacterial: as above Fungal: reports using marijuana, risk for fungal infection. Started Posaconazole 07/04 after chemotherapy. Level 1.3 on 03/14/17 Viral: acyclovir PCP: not indicated I have updated the problem list to reflect those problems being actively managed. Active Problems: COPD (chronic obstructive pulmonary disease) (HCC) Anxiety and depression Acute myeloid leukemia not having achieved remission (HCC) Learning disability Rash of face Neutropenic fever (HCC) Pancytopenia due to antineoplastic chemotherapy (HCC) Transaminitis Hepatosplenomegaly Pleural effusion Proctitis Protein-calorie malnutrition, mild (HCC) Immunocompromised state (HCC) Chemotherapy induced diarrhea Please see the Advanced Practice Provider documentation from today for the full details reg arding the assessment and plan. Angelia Thompson MD Vitals: 24 Hour Vital Min/Max: Systolic (24hrs), Av , Min:103 , Max:153 Diastolic (24hrs), Av, Min:58, Max:89 Pulse Min: 91 Max: 130 Temp Min: 36.5 C (97.7 F) Max: 39.2 C (102.6 F) Resp Min: 18 Max: 22 SpO2 Min: 91 % Max: 100 % Intake/Output Summary (Last 24 hours) at 07/21/17 1000 Last data filed at 07/21/17 0939 Gross per 24 hour Intake 3590 ml Output 3005 ml Net 585 ml Labs: CBC with diff last 72 hours (or 3 results) - Refreshable Recent Labs 07/18/17 2305 07/19/17 2305 07/20/17 2300 WBC <0.10* <0.10* <0.10* HB 8.3* 7.7* 8.1* HCT 23.5* 21.4* 22.2* PLT 18* 10* 22* Lab Results Component Value Date NA 137 07/20/2017 K 2.8 07/20/2017 CL 102 07/20/2017 BICARB 26 07/20/2017 BUN 9 07/20/2017 EGFRAFRICAN >60 07/20/2017 GLU 95 07/20/2017 CA 8.9 07/20/2017 ANIONGAP 9 07/20/2017 ANIONALBCOR 11 07/20/2017 Lab Results Component Value Date AST 30 07/20/2017 ALT 34 07/20/2017 TBILI 0.7 07/20/2017 AP 225 07/20/2017 TP 6.6 07/20/2017 ALB 3.2 07/20/2017 Medications: acetaminophen (TYLENOL) tablet 650 mg, 650 mg, oral, Q6H PRN acyclovir (ZOVIRAX) tablet 800 mg, 800 mg, oral, DAILY albuterol (PROVENTIL, VENTOLIN) 90 mcg/actuation inhaler 1 puff, 1 puff, inhalation, Q6H AR N alteplase (CATHFLO ACTIVASE) injection 2 mg, 2 mg, Intracatheter, PRN aluminum-magnesium hydroxide-simethicone (MAALOX; MYLANTA) 200-200-20 mg/5 mL suspension 30 mL, 30 mL, oral, QID PRN amLODIPine (NORVASC) tablet 10 mg, 10 mg, oral, DAILY dextrose 50 % in water IV 25 mL, 25 mL, intravenous, PRN bfgiyjdaxiRQJOO-uughchovz-ANDZKQ (SPECIAL MOUTHWASH) suspension (compound) 5-10 mL, 5-10 mL , oral, QID PRN diphenhydrAMINE-zinc acetate (BENADRYL ITCH STOPPING) 2-0.1 % cream, , topical, QID PRN DULoxetine (CYMBALTA) capsule 90 mg, 90 mg, oral, DAILY fentaNYL (SUBLIMAZE) injection 25-50 mcg, 25-50 mcg, intravenous, Q2H PRN glucagon (GLUCAGEN) injection 1 mg, 1 mg, intramuscular, PRN glucose chewable tablet 16 g, 16 g, oral, PRN haloperidol (HALDOL) tablet 0.5-1.5 mg, 0.5-1.5 mg, oral, Q4H PRN haloperidol lactate (HALDOL) injection 0.5-1.5 mg, 0.5-1.5 mg, intravenous, Q4H PRN hydrocortisone 2.5 % cream, , topical, BID lactulose (ENULAC) liquid 10 g, 15 mL, oral, TID PRN levothyroxine tablet 37.5 mcg, 37.5 mcg, oral, BEFORE BREAKFAST lisinopril (PRINIVIL) tablet 5 mg, 5 mg, oral, DAILY loperamide (IMODIUM) capsule 2-4 mg, 2-4 mg, oral, QID PRN loratadine (CLARITIN) tablet 10 mg, 10 mg, oral, DAILY LORazepam (ATIVAN) tablet 0.5 mg, 0.5 mg, oral, Q8H PRN magnesium hydroxide (MILK OF MAGNESIA) suspension 30 mL, 30 mL, oral, Q4H PRN magnesium sulfate in water IV (RTU) 4 g, 4 g, intravenous, PRN magnesium sulfate IV 8 g, 8 g, intravenous, PRN omeprazole (PRILOSEC) capsule 40 mg, 40 mg, oral, BEFORE BREAKFAST ondansetron (ZOFRAN) tablet 8 mg, 8 mg, oral, Q12H PRN oxybutynin CR (DITROPAN-XL) tablet 15 mg, 15 mg, oral, DAILY oxyCODONE (immediate release) (ROXICODONE) tablet 10-20 mg, 10-20 mg, oral, Q3H PRN piperacillin-tazobactam (ZOSYN) IV 4.5 g, 4.5 g, intravenous, Q6H polyethylene glycol (MIRALAX) packet 17 g, 17 g, oral, BID PRN [COMPLETED] posaconazole DR (NOXAFIL) tablet 300 mg, 300 mg, oral, BID FOLLOWED BY posa conazole DR (NOXAFIL) tablet 300 mg, 300 mg, oral, DAILY potassium chloride IV (central line) 40 mEq, 40 mEq, intravenous, PRN OR potassium chlo ride IV (central line) 60 mEq, 60 mEq, intravenous, PRN potassium chloride SR (K-DUR) tablet 40 mEq, 40 mEq, oral, PRN potassium phosphate IV 30 mmol, 30 mmol, intravenous, PRN OR potassium phosphate IV 40 mmol, 40 mmol, intravenous, PRN prochlorperazine (COMPAZINE) tablet 5-10 mg, 5-10 mg, oral, Q6H PRN OR prochlorperazine (COMPAZINE) injection 5-10 mg, 5-10 mg, intravenous, Q6H PRN senna-docusate (SENOKOT S) 8.6-50 mg 2 tablet, 2 tablet, oral, BID PRN simethicone chew (MYLICON) tablet 80 mg, 80 mg, oral, TID PRN sodium chloride 0.9% IV infusion, 1,000 mL, intravenous, PRN sodium phosphate IV 30 mmol, 30 mmol, intravenous, PRN sodium phosphate IV 40 mmol, 40 mmol, intravenous, PRN tiotropium (SPIRIVA) inhalation 18 mcg, 18 mcg, inhalation, DAILY traZODone (DESYREL) dose 25-50 mg, 25-50 mg, oral, HS PRN [COMPLETED] triamcinolone acetonide (KENALOG) 0.1 % ointment, , topical, BID FOLLOWED BY* * triamcinolone acetonide (KENALOG) 0.1 % ointment, , topical, BID Shayna Gardiner PA - 07/20/2017 12:32 PM PDTFormatting of this note may be different fro m the original. Daily NICOLE Note - Chemotherapy Admit [facility] Attending: Kay Duarte MD [facility] Physician: Pepe Chavis MD Local Oncologist: Daniel Patterson MD PCP: Saurav Small NP Date of Admission: 06/28/17 Hematologic Malignancy: AML ID: 51 yo woman with second relapse AML, FLT3 ITD admitted for evaluation and treatment. Hx COPD, Depression/PTSD, Disorder of Thyroid, HTN, Insomnia 24 Hour Events/Current Daily Plan: -Relapsed AML, Flt3: currently Arlette + modified Maurizio-C, currently day 20. Sorafenib insurance authorization/appeal rejected. Consider mylotarg for subsequent chemo cycles. Currently not a transplant candidate. -Pancytopenia secondary to chemotherapy: standard transfusion parameters. 1U PPH today. -Rash: most consistent with drug rash. Derm consulted on 07/16 and recommended triamcinolon e cream -Lytes: standard replacement protocol. None required today. Subjective: Doing well. Had some nausea but feeling better today. Objective: Last Vitals: BP 136/84 | Pulse 92 | Temp 36.5 C (97.7 F) | RR 18 | Ht 1.59 m (5' 2.6") | Wt 78.1 kg (172 lb 2.9 oz) | SpO2 98% | BMI 30.89 kg/(m^2) 24 Hour Vital Min/Max: Systolic (24hrs), Av , Min:113 , Max:146 Diastolic (24hrs), Av, Min:61, Max:85 Pulse Min: 88 Max: 97 Temp Min: 36.4 C (97.5 F) Max: 36.7 C (98.1 F) Resp Min: 16 Max: 20 SpO2 Min: 92 % Max: 99 % Intake/Output Summary (Last 24 hours) at 07/20/17 1232 Last data filed at 07/20/17 0900 Gross per 24 hour Intake 2215 ml Output 2050 ml Net 165 ml Physical Exam: General: This is a female in no acute distress. Sitting in chair. HEENT: PERRL. Sclerae anicteric. No lesions noted in mouth Skin: Erythematous, macular rash of face/left lateral neck Chest: Lungs clear to auscultation bilat. CV: RRR, no murmurs. Abdomen: S/NT/ND with NABS. No HSM appreciated. Extremities: Pulses strong and equal bilaterally. No c/c/BLE with petechiae NeuroPsych: Alert and oriented x 3. Grossly nonfocal exam. CVC: RUE PICC site without inflammation or induration. C/D/I Laboratory Results: Recent Labs 07/17/17 2347 07/18/17 2305 07/19/17 230 NA 140 138 139 K 3.3* 3.5 3.6 CL 104 103 105 BICARB 26 25 27 BUN 10 13 13 CR 0.48* 0.57* 0.49* GLU 102* 95 121* CA 8.8 9.1 8.7 AST 16 19 23 ALT 28 28 29 AP 195* 199* 194* TBILI 0.8 0.9 0.5 TP 5.9* 6.3* 6.2* ALB 2.9* 3.1* 3.0* Recent Labs 07/01/17 2318 07/02/17 2336 07/04/17 0040 07/17/17 2347 07/18/17 2305 07/19/17 230 WBC 17.35* < > 3.52 < > 0.55* < > <0.10* <0.10* <0.10* RBC 2.47* < > 2.09* < > 2.23* < > 2.52* 2.85* 2.66* HB 7.4* < > 6.4* < > 6.7* < > 7.3* 8.3* 7.7* HCT 22.8* < > 19.2* < > 19.9* < > 20.7* 23.5* 21.4* PLT 12* < > 16* < > 7* < > 10* 18* 10* NEUTROPERC 13.2* -- 25.7* -- 32.5* -- -- -- -- LYMPHPERC 6.1* -- 5.3* -- 5.0* -- -- -- -- MONOPERC 0.9* -- 0.9* -- 10.0* -- -- -- -- BASOPERC 0.0 -- 0.0 -- 0.0 -- -- -- -- EOSPERC 0.0* -- 0.0* -- 0.0* -- -- -- -- < > = values in this interval not displayed. Meds: Reviewed on rounds, see current MAR for medication list SUMMARY OF PATIENT'S HOSPITALIZATION History of Present Illness: (from H&P) Rhea Hutchison is a 51-year-old woman with a history of COPD, depression, hypothyroidism, and AML diagnosed in late 2015 after she presented with pleuritic chest pain and shortness of br eath in addition to profound leukocytosis. Her disease was initially managed with 7+3+ Dasa tinib, course gated by neutropenic fevers, C. difficile, nodular groundglass opacities sudeep rning for invasive fungal infection (although galactomannan negative), treated with Isavucon azole -> Voriconazole. She was reinduced with Cytarabine and entered CR1. She subsequently relapsed in February 2017 started on FLAG-Arlette salvage-->CR2. Her course was subsequently c omplicated by bacterial pneumonia, otherwise recovered well Patient presents as a transfer from outside hospital ([facility]) where she pres ented with body aches and profound fatigue, anemic with new leukocytosis. Repeat bone marro w biopsy concerning for relapsed AML (blasts positive for CD 117, CD33). In the interim sin ce her initial admission, the patient endorses development of new new acute onset pleuritic left-sided chest pain. She states that this chest pain is stabbing, 5-6 out of 10 in intens ity. It is accompanied by a degree of resting dyspnea. Patient also endorses nagging cough productive of white/yellow sputum of approximately 1 week's duration. She denies constitut ional symptoms including fevers, chills, night sweats. She denies new palpitations. She de nies new oral lesions or odynophagia. She does endorse a degree of ongoing nausea but state s that that is baseline for her. She denies emesis. Endorses a degree of constipation. De nies deep new complaints. She does endorse a developing petechial rash over bilateral lo wer extremities, as well as her upper back. She denies new adenopathy. Hospitalization History: Hematology: #Relapsed Flt3 AML: Had salvage FLAG-Arlette + Midostaurin and Azacitidine bridge while awaitin g SCT now with relapse. Pertinent Diagnostics: -BM Bx 06/21/17 ([facility] [id number]): -Results: 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 myelogenous leukemia (60%); Blasts positive for CD117 and CD 33, negative for CD34, CD71, CD61, CD3 and PAX-5. -Cytogenetics: Normal -Genetrails: NPM1, DNMT3A, NRAS, TET2, FLT3 TKD mutations -06/30 peripheral blood flow and GeneTrails: -Flow: Recurrent acute myeloid leukemia (87% blasts) -GeneTrails not drawn Treatment -Chemotherapy regimen: Arlette + Maurizio-C, started 07/01/17 -Idarubicin 12 mg/m2 daily x 3 days -Cytarabine 1500 mg/m2 CI IV daily x 4 days. -Sorafenib authorization was denied -Chemo Day: 20 Patient is currently not a transplant candidate, but if it were to change, brother is a match #Pancytopenia secondary to chemotherapy: -See supportive care #Supportive Care: Growth factor: no growth factors required at this time Labs: Continue to check CBC daily Transfusion parameters: -Transfuse PRBCs for HCT <21% if asymptomatic -Transfuse PPH for platelet count <10,000 sooner PRN s/s bleeding Cardiovascular: Prechemo TTE on 06/29/17 shows EF of 65-70% #Hx of Hypertension: continues on home anti-hypertensives -Amlodipine 10mg daily -Lisinopril 5mg daily Pulmonary: #COPD: continues on home inhalers -Spiriva 18mcg daily -Albuterol PRN GI: #Abdominal pain: multifactorial, likely secondary to constipation, uncomplicated proctitis, and HSM. 06/29 CT AP showed uncomplicated proctitis, hepatosplenomegaly, and stool in rectum -Continue bowel regimen senna BID; MOM, Miralax, and Lactulose PRN -Fentanyl IV and oxycodone PO PRN pain #Transaminitis with hyperbilirubinemia: likely secondary to idarubicin and likely AML infil trates in liver responding to chemo. Resolved. -Monitor daily labs #SWAPNIL, no emesis: controlled -Antiemetics PRN #GERD: controlled -Omeprazole to 40mg daily -Carafate QID #Diarrhea, likely due to chemotherapy: -Imodium PRN -Consider c diff testing if worsens /Renal: #Overactive bladder: chronic issue -Oxybutynin CR 15mg daily Neuro/Psych: #Depression/anxiety -Cymbalta 90mg daily -Lorazepam PRN anxiety Endocrine: #Hypothyroidism: -Synthroid 37.5mcg daily Skin #Rash: most consistent with drug rash. 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 Then switch to hydrocortisone 2.5 % ointment BID x 1-2 weeks, started 07/17 -On body: triamcinolone 0.1% ointment BID x 1-2 weeks, started 07/17 Infectious Disease: #Non-neutropenic fever, with septic picture 06/29 with tachycardia, tachypnea. Afebrile at th e time, however spiked a fever on 07/01. Localizing symptoms include pleuritic pain and abdomi nal pain. Bld cx NGTD. 06/29 CTA showed left pleural effusion and adjacent atelectasis, no PE or consolidations. 06/29 CT AP showed uncomplicated proctitis, HSM with scattered areas of li maria m AML infiltration, extramedullary hematopoiesis or microabscesses -s/p zosyn (06/29- 07/17) #Prophylaxis: Bacterial: levaquin Fungal: reports using marijuana, risk for fungal infection. Started Posaconazole 07/04 after chemotherapy Viral: acyclovir PCP: not indicated Fluid/Nutrition/Lytes: #Nutrition: Current diet -- Regular No Felisha's yogurt or Kefir. #Fluid: 1L IVF PRN for PO intake <2L/day #Lytes: -Continue to check chemistries daily -Replace per supportive care protocol Disposition: TBD. Anticipate 4-6 week hospitalization [facility] [id number] [facility] Mailcode: [email or web address] [place] [address] Angelia Thompson MD - 07/20/2017 9:25 AM PDTFormatting of this note may be different fr om the original. Hematologic Malignancies/Bone Marrow Transplant Inpatient Attending Progress Note: Hospital course summary: Rhea Hutchison is a 51 year old female with relapsed FLT3+ AML, admitted currently for re-briana ction with Idarubacin + Maurizio-C. She was diagnosed initially in January 2016 with favorable r isk NPM1+ AML. A BMBx obtained 02/14/17 showed a hypercellular marrow with 51% blasts + pro monocytes. Cytogenetics 46 XX and genetrails with mutations in NPM1, DNMT3A, NRAS, TET2, an d a FLT3 TKD mutation. She was enrolled on a clinical trial (7+3 PLUS) and underwent induct ion with 7 + 3+ dasatinib. Her course was complicated by pneumonia concerning for invasive fungal infection vs atypical pneumonia, received treatment with isavuconazole and then fluco nazole for a total of 12 weeks. A post-induction BMBx was consistent with CR1, and she then completed consolidation with cytarabine given at 1500 mg/m2. She was well until February 28, when she presented with fevers and body pains. A CBC showed a WBC count of 103k, hct 1 3.8 and plts 10k. Relapse was confirmed by peripheral blood flow cytometry, which showed re lapsed AML, cytogenetics now with a FLT3 ITD mutation, and cytogenetics with 46 X t(X;7). S he underwent re-induction with FLAG-Arlette; midostaurin added at day +8. A BMBx obtained after induction on 04/04/17 was consistent with CR2. She then begain maintenance therapy with aza citadine + midostaurin, however in June of 2017 she presented with body aches and was found to again have relapsed disease. She is admitted now for re-induction with idarubacin + mod ofoed Maurizio-C. Course thus far complicated by proctitis and non-neutropenic fevers. I rounded today, 07/20/2017, in conjunction with the Advanced Practice Provider Shayna hodgson. I saw the patient, reviewed the history and relevant studies and developed an assessment an d plan. Subjective: Feeling well today, ate a big breakfast and has already been up and walking in the hallways . Denies N/V. Energy remains pretty good. No new concerns. Objective: Last Vitals: BP 153/75 | Pulse 130 | Temp 39.2 C (102.6 F) | RR 18 | Ht 1.59 m (5' 2.6" ) | Wt 78.1 kg (172 lb 2.9 oz) | SpO2 95% | BMI 30.89 kg/(m^2) Gen: sitting up in chair by window, NAD HEENT: no oral lesions Lungs: CTA bilaterally CVS: RRR no M/G/R appreciated Abd: soft, NT Skin: + faint macular erythematous rash on face, arms. + petechiae at ankles Neuro: CN II-XII grossly intact Ext: no pitting edema Brief Assessment / Plan: - AML: Admitted now with relapsed disease (second relapse), undergoing re-induction with a modified idarubacin and Maurizio-C regimen. She is currently day +20 of therapy, counts remain at jacquelin with ANC of 0. She is overall tolerating therapy well. Sorafenib was considered g iven her FLT3+ disease, however this was not covered by insurance. No day +14 marrow obtain ed as no escalation of therapy planned. She will remain in the hospital until count recover y. She completed therapy as below: Chemotherapy regimen: Arlette + Maurizio-C, started 07/01/17 -Idarubicin 12 mg/m2 daily x 3 days -Cytarabine 1500 mg/m2 CI IV daily x 4 days. -Sorafenib authorization was denied - Proctitis / non-neutropenic fevers: Developed fevers on 06/29; associated symptoms include d pleuritic chest pain and abdominal pain. A CT obtained 06/29 showed proctitis and a L pleur al effusion. Blood cutlures with no growth, she was not neutropenic at the time. She was s tarted on treatment with Zosyn; although she became neutropenic her antibiotics were de-esca lated to levaquin after she had completed a 2-week course of treatment for her proctitis as she developed the fevers when non-neutropenic. Will continue to monitor for fever, continue prophylactic levaquin. - s/p Zosyn 06/29 - 07/17 - Rash: Has the appearance of a drug rash. Derm was consulted; they diagnosed her with shailesh trophilic eccrine hidradenitis and recommended steroid creams. Appearance stable. Regimen a s below. -On face: triamcinolone 0.1% ointment BID x 3 days followed by hydrocortisone 2.5% ointment BID x 1-2 weeks, started 07/17 -On body: triamcinolone 0.1% ointment BID x 1-2 weeks, started 07/17 - Hypertension: Well controlled, will continue home antihypertensives. - lisinopril 5 mg PO daily - amlodipine 10 mg PO daily - COPD: Well controlled, no symptoms of SOB or cough. Will continue home inhalers. - Spiriva 18 mcg daily - albuterol prn - GERD: Secondary to associated hiatal hernia. Takes PPIs at home. - Omeprazole 40 mg PO daily - Overactive Bladder: Continue homme oxybutynin - Hypothyroidism: Continue home levothyroxine - Pancytopenia: Secondary to chemotherapy. Standard transfusion parameters as below: - transfuse 1 unit PRBC for hct < 21 - transfuse 1 unit plts for plt < 10k ID Propylaxis: Bacterial: levaquin resumed 07/18 Fungal: reports using marijuana, risk for fungal infection. Started Posaconazole 07/04 after chemotherapy. Level 1.3 on 03/14/17 Viral: acyclovir PCP: not indicated I have updated the problem list to reflect those problems being actively managed. Active Problems: COPD (chronic obstructive pulmonary disease) (HCC) Anxiety and depression Acute myeloid leukemia not having achieved remission (HCC) Learning disability Rash of face Neutropenic fever (HCC) Pancytopenia due to antineoplastic chemotherapy (HCC) Transaminitis Hepatosplenomegaly Pleural effusion Proctitis Protein-calorie malnutrition, mild (HCC) Immunocompromised state (HCC) Chemotherapy induced diarrhea Please see the Advanced Practice Provider documentation from today for the full details reg arding the assessment and plan. Angelia Thompson MD Vitals: 24 Hour Vital Min/Max: Systolic (24hrs), Av , Min:113 , Max:146 Diastolic (24hrs), Av, Min:61, Max:85 Pulse Min: 88 Max: 97 Temp Min: 36.4 C (97.5 F) Max: 36.7 C (98.1 F) Resp Min: 16 Max: 20 SpO2 Min: 92 % Max: 99 % Intake/Output Summary (Last 24 hours) at 07/20/17 0925 Last data filed at 07/20/17 0900 Gross per 24 hour Intake 3125 ml Output 2300 ml Net 825 ml Labs: CBC with diff last 72 hours (or 3 results) - Refreshable Recent Labs 07/17/17 2347 07/18/17 2305 07/19/17 2305 WBC <0.10* <0.10* <0.10* HB 7.3* 8.3* 7.7* HCT 20.7* 23.5* 21.4* PLT 10* 18* 10* Lab Results Component Value Date NA 139 07/19/2017 K 3.6 07/19/2017 CL 105 07/19/2017 BICARB 27 07/19/2017 BUN 13 07/19/2017 EGFRAFRICAN >60 07/19/2017 GLU 121 07/19/2017 CA 8.7 07/19/2017 ANIONGAP 7 07/19/2017 ANIONALBCOR 9 07/19/2017 Lab Results Component Value Date AST 23 07/19/2017 ALT 29 07/19/2017 TBILI 0.5 07/19/2017 AP 194 07/19/2017 TP 6.2 07/19/2017 ALB 3.0 07/19/2017 Medications: acetaminophen (TYLENOL) tablet 650 mg, 650 mg, oral, Q6H PRN acyclovir (ZOVIRAX) tablet 800 mg, 800 mg, oral, DAILY albuterol (PROVENTIL, VENTOLIN) 90 mcg/actuation inhaler 1 puff, 1 puff, inhalation, Q6H AR N alteplase (CATHFLO ACTIVASE) injection 2 mg, 2 mg, Intracatheter, PRN aluminum-magnesium hydroxide-simethicone (MAALOX; MYLANTA) 200-200-20 mg/5 mL suspension 30 mL, 30 mL, oral, QID PRN amLODIPine (NORVASC) tablet 10 mg, 10 mg, oral, DAILY dextrose 50 % in water IV 25 mL, 25 mL, intravenous, PRN gjklierxauMUBRP-scsdhczmy-OJTXKZ (SPECIAL MOUTHWASH) suspension (compound) 5-10 mL, 5-10 mL , oral, QID PRN diphenhydrAMINE-zinc acetate (BENADRYL ITCH STOPPING) 2-0.1 % cream, , topical, QID PRN DULoxetine (CYMBALTA) capsule 90 mg, 90 mg, oral, DAILY fentaNYL (SUBLIMAZE) injection 25-50 mcg, 25-50 mcg, intravenous, Q2H PRN glucagon (GLUCAGEN) injection 1 mg, 1 mg, intramuscular, PRN glucose chewable tablet 16 g, 16 g, oral, PRN haloperidol (HALDOL) tablet 0.5-1.5 mg, 0.5-1.5 mg, oral, Q4H PRN haloperidol lactate (HALDOL) injection 0.5-1.5 mg, 0.5-1.5 mg, intravenous, Q4H PRN hydrocortisone 2.5 % cream, , topical, BID lactulose (ENULAC) liquid 10 g, 15 mL, oral, TID PRN levoFLOXacin (LEVAQUIN) tablet 500 mg, 500 mg, oral, DAILY levothyroxine tablet 37.5 mcg, 37.5 mcg, oral, BEFORE BREAKFAST lisinopril (PRINIVIL) tablet 5 mg, 5 mg, oral, DAILY loperamide (IMODIUM) capsule 2-4 mg, 2-4 mg, oral, QID PRN loratadine (CLARITIN) tablet 10 mg, 10 mg, oral, DAILY LORazepam (ATIVAN) tablet 0.5 mg, 0.5 mg, oral, Q8H PRN magnesium hydroxide (MILK OF MAGNESIA) suspension 30 mL, 30 mL, oral, Q4H PRN magnesium sulfate in water IV (RTU) 4 g, 4 g, intravenous, PRN magnesium sulfate IV 8 g, 8 g, intravenous, PRN omeprazole (PRILOSEC) capsule 40 mg, 40 mg, oral, BEFORE BREAKFAST ondansetron (ZOFRAN) tablet 8 mg, 8 mg, oral, Q12H PRN oxybutynin CR (DITROPAN-XL) tablet 15 mg, 15 mg, oral, DAILY oxyCODONE (immediate release) (ROXICODONE) tablet 10-20 mg, 10-20 mg, oral, Q3H PRN polyethylene glycol (MIRALAX) packet 17 g, 17 g, oral, BID PRN [COMPLETED] posaconazole DR (NOXAFIL) tablet 300 mg, 300 mg, oral, BID FOLLOWED BY posa conazole DR (NOXAFIL) tablet 300 mg, 300 mg, oral, DAILY potassium chloride IV (central line) 40 mEq, 40 mEq, intravenous, PRN OR potassium chlo ride IV (central line) 60 mEq, 60 mEq, intravenous, PRN potassium chloride SR (K-DUR) tablet 40 mEq, 40 mEq, oral, PRN potassium phosphate IV 30 mmol, 30 mmol, intravenous, PRN OR potassium phosphate IV 40 mmol, 40 mmol, intravenous, PRN prochlorperazine (COMPAZINE) tablet 5-10 mg, 5-10 mg, oral, Q6H PRN OR prochlorperazine (COMPAZINE) injection 5-10 mg, 5-10 mg, intravenous, Q6H PRN senna-docusate (SENOKOT S) 8.6-50 mg 2 tablet, 2 tablet, oral, BID PRN simethicone chew (MYLICON) tablet 80 mg, 80 mg, oral, TID PRN sodium chloride 0.9% IV infusion, 1,000 mL, intravenous, PRN sodium phosphate IV 30 mmol, 30 mmol, intravenous, PRN sodium phosphate IV 40 mmol, 40 mmol, intravenous, PRN tiotropium (SPIRIVA) inhalation 18 mcg, 18 mcg, inhalation, DAILY traZODone (DESYREL) dose 25-50 mg, 25-50 mg, oral, HS PRN [COMPLETED] triamcinolone acetonide (KENALOG) 0.1 % ointment, , topical, BID FOLLOWED BY* * triamcinolone acetonide (KENALOG) 0.1 % ointment, , topical, BID Emily Galdamez PA-C - 07/19/2017 12:02 PM PDTFormatting of this note may be different from the original. Daily NICOLE Note - Chemotherapy Admit Center for Hematologic Malignancies Attending: Kay Duarte MD [facility] Physician: Pepe Chavis MD Local Oncologist: Daniel Patterson MD PCP: Saurav Small NP Date of Admission: 06/28/17 Hematologic Malignancy: AML ID: 51 yo woman with second relapse AML, FLT3 ITD admitted for evaluation and treatment. Hx COPD, Depression/PTSD, Disorder of Thyroid, HTN, Insomnia 24 Hour Events/Current Daily Plan: -Relapsed AML, Flt3: currently Arlette + modified Maurizio-C, currently day 19. Sorafenib insurance authorization/appeal rejected. Consider mylotarg for subsequent chemo cycles. Currently not a transplant candidate -Pancytopenia secondary to chemotherapy: standard transfusion parameters. No transfusions t mayra -Rash: most consistent with drug rash. Derm consulted. Continue with triamcinolone cream -Lytes: standard replacement protocol. Magnesium replaced today Subjective: Doing well today. Was able to walk a little over a mile yesterday in the halls. Objective: Last Vitals: BP 132/83 | Pulse 95 | Temp 36.8 C (98.2 F) | RR 16 | Ht 1.59 m (5' 2.6") | Wt 79 kg (174 lb 2.6 oz) | SpO2 94% | BMI 31.25 kg/(m^2) 24 Hour Vital Min/Max: Systolic (24hrs), Av , Min:121 , Max:142 Diastolic (24hrs), Av, Min:70, Max:90 Pulse Min: 88 Max: 100 Temp Min: 36.4 C (97.5 F) Max: 36.9 C (98.4 F) Resp Min: 16 Max: 16 SpO2 Min: 91 % Max: 98 % Intake/Output Summary (Last 24 hours) at 07/19/17 1202 Last data filed at 07/19/17 1014 Gross per 24 hour Intake 1850 ml Output 1750 ml Net 100 ml Physical Exam: General: This is a female in no acute distress. Sitting in chair. HEENT: PERRL. Sclerae anicteric. No lesions noted in mouth Skin: Erythematous, macular rash of face/left lateral neck Chest: Lungs clear to auscultation bilat. CV: RRR, no murmurs. Abdomen: S/NT/ND with NABS. No HSM appreciated. Extremities: Pulses strong and equal bilaterally. No c/c/BLE with petechiae NeuroPsych: Alert and oriented x 3. Grossly nonfocal exam. CVC: RUE PICC site without inflammation or induration. C/D/I Laboratory Results: Recent Labs 07/16/[id number]/17/17234607/18/17 2305 NA 142 140 138 K 3.2* 3.3* 3.5 CL 105 104 103 BICARB 27 26 25 BUN 7 10 13 CR 0.45* 0.48* 0.57* GLU 92 102* 95 CA 8.5* 8.8 9.1 AST 16 16 19 ALT 31 28 28 AP 196* 195* 199* TBILI 1.0 0.8 0.9 TP 5.9* 5.9* 6.3* ALB 2.9* 2.9* 3.1* Recent Labs 07/01/17231707/02/17233507/04/17 0040 07/16/17234707/17/17234607/18/17 2305 WBC 17.35* < > 3.52 < > 0.55* < > <0.10* <0.10* <0.10* RBC 2.47* < > 2.09* < > 2.23* < > 2.56* 2.52* 2.85* HB 7.4* < > 6.4* < > 6.7* < > 7.5* 7.3* 8.3* HCT 22.8* < > 19.2* < > 19.9* < > 21.3* 20.7* 23.5* PLT 12* < > 16* < > 7* < > 18* 10* 18* NEUTROPERC 13.2* -- 25.7* -- 32.5* -- -- -- -- LYMPHPERC 6.1* -- 5.3* -- 5.0* -- -- -- -- MONOPERC 0.9* -- 0.9* -- 10.0* -- -- -- -- BASOPERC 0.0 -- 0.0 -- 0.0 -- -- -- -- EOSPERC 0.0* -- 0.0* -- 0.0* -- -- -- -- < > = values in this interval not displayed. Meds: Reviewed on rounds, see current MAR for medication list SUMMARY OF PATIENT'S HOSPITALIZATION History of Present Illness: (from H&P) Rhea Hutchison is a 51-year-old woman with a history of COPD, depression, hypothyroidism, and AML diagnosed in late 2015 after she presented with pleuritic chest pain and shortness of br eath in addition to profound leukocytosis. Her disease was initially managed with 7+3+ Dasa tinib, course gated by neutropenic fevers, C. difficile, nodular groundglass opacities sudeep rning for invasive fungal infection (although galactomannan negative), treated with Isavucon azole -> Voriconazole. She was reinduced with Cytarabine and entered CR1. She subsequently relapsed in February 2017 started on FLAG-Arlette salvage-->CR2. Her course was subsequently c omplicated by bacterial pneumonia, otherwise recovered well Patient presents as a transfer from outside hospital ([facility]) where she pres ented with body aches and profound fatigue, anemic with new leukocytosis. Repeat bone marro w biopsy concerning for relapsed AML (blasts positive for CD 117, CD33). In the interim sin ce her initial admission, the patient endorses development of new new acute onset pleuritic left-sided chest pain. She states that this chest pain is stabbing, 5-6 out of 10 in intens ity. It is accompanied by a degree of resting dyspnea. Patient also endorses nagging cough productive of white/yellow sputum of approximately 1 week's duration. She denies constitut ional symptoms including fevers, chills, night sweats. She denies new palpitations. She de nies new oral lesions or odynophagia. She does endorse a degree of ongoing nausea but state s that that is baseline for her. She denies emesis. Endorses a degree of constipation. De nies deep new complaints. She does endorse a developing petechial rash over bilateral lo wer extremities, as well as her upper back. She denies new adenopathy. Hospitalization History: Hematology: #Relapsed Flt3 AML: Had salvage FLAG-Arlette + Midostaurin and Azacitidine bridge while awaitin g SCT now with relapse. Pertinent Diagnostics: -BM Bx 06/21/17 ([facility] [id number]): -Results: 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 myelogenous leukemia (60%); Blasts positive for CD117 and CD 33, negative for CD34, CD71, CD61, CD3 and PAX-5. -Cytogenetics: Normal -Genetrails: NPM1, DNMT3A, NRAS, TET2, FLT3 TKD mutations -06/30 peripheral blood flow and GeneTrails: -Flow: Recurrent acute myeloid leukemia (87% blasts) -GeneTrails not drawn Treatment -Chemotherapy regimen: Arlette + Maurizio-C, started 07/01/17 -Idarubicin 12 mg/m2 daily x 3 days -Cytarabine 1500 mg/m2 CI IV daily x 4 days. -Sorafenib authorization was denied -Chemo Day: 19 Patient is currently not a transplant candidate, but if it were to change, brother is a match #Pancytopenia secondary to chemotherapy: -See supportive care #Supportive Care: Growth factor: no growth factors required at this time Labs: Continue to check CBC daily Transfusion parameters: -Transfuse PRBCs for HCT <21% if asymptomatic -Transfuse PPH for platelet count <10,000 sooner PRN s/s bleeding Cardiovascular: Prechemo TTE on 06/29/17 shows EF of 65-70% #Hx of Hypertension: continues on home anti-hypertensives -Amlodipine 10mg daily -Lisinopril 5mg daily Pulmonary: #COPD: continues on home inhalers -Spiriva 18mcg daily -Albuterol PRN GI: #Abdominal pain: multifactorial, likely secondary to constipation, uncomplicated proctitis, and HSM. 06/29 CT AP showed uncomplicated proctitis, hepatosplenomegaly, and stool in rectum -Continue bowel regimen senna BID; MOM, Miralax, and Lactulose PRN -Fentanyl IV and oxycodone PO PRN pain #Transaminitis with hyperbilirubinemia: likely secondary to idarubicin and likely AML infil trates in liver responding to chemo -Monitor daily labs -Consider switching to Marie if continues to increase #SWAPNIL, no emesis: controlled -Scheduled zofran BID -Compazine PRN -Antiemetics PRN #GERD: controlled -Omeprazole to 40mg daily -Carafate QID #Diarrhea, likely due to chemotherapy: -Imodium PRN -Consider c diff testing if worsens /Renal: #Overactive bladder: chronic issue -Oxybutynin CR 15mg daily Neuro/Psych: #Depression/anxiety -Cymbalta 90mg daily -Lorazepam PRN anxiety Endocrine: #Hypothyroidism: -Synthroid 37.5mcg daily Skin #Rash: most consistent with drug rash. 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 Then switch to hydrocortisone 2.5 % ointment BID x 1-2 weeks, started 07/17 -On body: triamcinolone 0.1% ointment BID x 1-2 weeks, started 07/17 Infectious Disease: #Non-neutropenic fever, with septic picture 06/29 with tachycardia, tachypnea. Afebrile at e time, however spiked a fever on 07/01. Localizing symptoms include pleuritic pain and abdomi nal pain. Bld cx NGTD. 06/29 CTA showed left pleural effusion and adjacent atelectasis, no PE or consolidations. 06/29 CT AP showed uncomplicated proctitis, HSM with scattered areas of li maria m AML infiltration, extramedullary hematopoiesis or microabscesses -s/p zosyn (06/29- 07/17) #Prophylaxis: Bacterial: levaquin Fungal: reports using marijuana, risk for fungal infection. Started Posaconazole 07/04 after chemotherapy Viral: acyclovir PCP: not indicated Fluid/Nutrition/Lytes: #Nutrition: Current diet -- Regular No Felisha's yogurt or Kefir. #Fluid: 1L IVF PRN for PO intake <2L/day #Lytes: -Continue to check chemistries daily -Replace per supportive care protocol Disposition: TBD. Anticipate 4-6 week hospitalization Emily Galdamez PA-C [facility] [id number] [facility] [facility] Mailcode: [email or web address] [place] [address] Kay Duarte MD - 07/19/2017 10:42 AM PDTFormatting of this note may be different from [facility] [place] original. 07/19/2017 Hematologic Malignancies/Blood and marrow Transplant Attending Note I have reviewed and agree with the previously summarized HPI, PMH, FH, SH, and ROS as docum ented in the detailed note of the NICOLE provider. I also performed a history and physical examination of the patient myself and agree with [facility] [place] documented findings and plan of care. Subjective: Feeling great and walked 13 laps last night. Denies nausea/vomiting/diarrhea/constipation. Objective: VSS On exam, I note no acute findings, patient is in no distress, no oral lesions or mucositis, RRR, lungs are clear, abdomen is benign, +improving erythematous, macular rash on face, nec k and upper back, and neuro is unremarkable. Labs were reviewed and discussed with the pt. Brief assessment/plan: The major issues that I am directly managing that require continued hospital admission incl ude: 1. Relapsed AML, FLT3+ : Day 19modified cytarabine + idarubicin. Not considered a transpl ant candidate. Plan for BMBx at count recovery. 2. Pancytopenia sec to chemotherapy: counts at jacquelin. Continue standard transfusion paramet ers. 3. Non-neutropenic fevers: first noted on 06/29 and now afebrile. Continue standard ppx per protocol. 4. Rash: Derm consulted 07/16 - believed to be "pruritic mixed-morphology skin rash most c/ w drug eruption" (sec to cytarabine). Continue triamcinolone ointment. Today, we will continue the current level of support. Please refer to the NICOLE's note dated today for additional details on the specific plan and orders for today. Kay Duarte MD, MS [facility] Attending physician s total time is 35 minutes, >50% spent counseling and coordination of care. [facility] DEPARTMENT: [id number] - [facility] Place of Service: [id number] - Inpatient Date of Service: 07/19/2017 Modifiers: None Suggested CPT: 94198 - Subsequent, Detailed/High complex 35 min ######################################################### Vitals: Systolic (24hrs), Av , Min:121 , Max:142 Diastolic (24hrs), Av, Min:70, Max:90 Pulse Av.8 Min: 88 Max: 100 Temp Av.7 C (98 F) Min: 36.4 C (97.5 F) Max: 36.9 C (98.4 F) Resp Av Min: 16 Max: 16 SpO2 Av % Min: 91 % Max: 98 % Intake/Output Summary (Last 24 hours) at 07/19/17 1042 Last data filed at 07/19/17 1014 Gross per 24 hour Intake 1850 ml Output 2050 ml Net -200 ml Current medications: Current Facility-Administered Medications Medication Dose Route Frequency Last Rate acyclovir (ZOVIRAX) tablet 800 mg 800 mg oral DAILY amLODIPine (NORVASC) tablet 10 mg 10 mg oral DAILY DULoxetine (CYMBALTA) capsule 90 mg 90 mg oral DAILY [START ON 07/20/2017] hydrocortisone 2.5 % cream topical BID levoFLOXacin (LEVAQUIN) tablet 500 mg 500 mg oral DAILY levothyroxine tablet 37.5 mcg 37.5 mcg oral BEFORE BREAKFAST lisinopril (PRINIVIL) tablet 5 mg 5 mg oral DAILY loratadine (CLARITIN) tablet 10 mg 10 mg oral DAILY omeprazole (PRILOSEC) capsule 40 mg 40 mg oral BEFORE BREAKFAST oxybutynin CR (DITROPAN-XL) tablet 15 mg 15 mg oral DAILY posaconazole DR (NOXAFIL) tablet 300 mg 300 mg oral DAILY tiotropium (SPIRIVA) inhalation 18 mcg 18 mcg inhalation DAILY triamcinolone acetonide (KENALOG) 0.1 % ointment topical BID Followed by [START ON 07/20/2017] triamcinolone acetonide (KENALOG) 0.1 % ointment topical BID Allergies: Allergies Allergen Reactions Morphine Rash and Facial Swelling Rash and facial swelling Opioids - Morphine Analogues Confusion Cefepime Rash Laboratory or other studies: Recent Labs 07/16/17234707/17/17234607/18/17 2305 WBC <0.10* <0.10* <0.10* HB 7.5* 7.3* 8.3* HCT 21.3* 20.7* 23.5* PLT 18* 10* 18* Recent Labs 07/16/17234707/17/17234607/18/17 2305 NA 142 140 138 K 3.2* 3.3* 3.5 CL 105 104 103 BICARB 27 26 25 BUN 7 10 13 CR 0.45* 0.48* 0.57* CA 8.5* 8.8 9.1 MG 1.7 1.7 1.6 PO4 3.3 3.3 3.3 AST 16 16 19 ALT 31 28 28 TBILI 1.0 0.8 0.9 AP 196* 195* 199* ALB 2.9* 2.9* 3.1* TP 5.9* 5.9* 6.3* URINE CULTURE [facility] (no units) Date Value 07/01/2017 No growth (<1000 cfu/mL) after 24 hours CULT, URINE SCREEN (no units) Date Value 07/01/2017 Positive (A) Lab Results Component Value Date APTT 37.5 (H) 07/17/2017 FIBRINOGEN 478 (H) 07/17/2017 Kay Duarte MD - 07/18/2017 11:51 AM PDTFormatting of this note may be different from [facility] [place] original. 07/18/2017 Hematologic Malignancies/Blood and marrow Transplant Attending Note I have reviewed and agree with the previously summarized HPI, PMH, FH, SH, and ROS as docum ented in the detailed note of the NICOLE provider. I also performed a history and physical examination of the patient myself and agree with [facility] [place] documented findings and plan of care. Subjective: Doing well without any complaints. Denies nausea/vomiting/diarrhea/constipation. Objective: VSS. On exam, I note no acute findings, patient is in no distress, no oral lesions or mucositis, RRR, lungs are clear, abdomen is benign, +improving erythematous, macular rash on face, nec k and upper back, and neuro is unremarkable. Labs were reviewed and discussed with the pt. Brief assessment/plan: The major issues that I am directly managing that require continued hospital admission incl ude: 1. Relapsed AML, FLT3+ : Day 18 modified cytarabine + idarubicin. Not considered a transpla nt candidate. Plan for BMBx at count recovery. 2. Pancytopenia sec to chemotherapy: counts remain at jacquelin. Continue standard transfusion parameters. 3. Non-neutropenic fevers: first noted on 06/29 and now afebrile. Continue standard ppx per protocol. 4. Rash: Derm consulted 07/16 - believed to be "pruritic mixed-morphology skin rash most c/ w drug eruption" (sec to cytarabine). Continue triamcinolone ointment for 1-2 weeks. Today, we will continue the current level of support. Please refer to the NICOLE's note dated today for additional details on the specific plan and orders for today. Kay Duarte MD, MS [facility] Attending physician s total time is 35 minutes, >50% spent counseling and coordination of care. [facility] DEPARTMENT: [id number] - [facility] Place of Service: - Inpatient Date of Service: 07/18/2017 Modifiers: None Suggested CPT: 65798 - Subsequent, Detailed/High complex 35 min ######################################################### Vitals: Systolic (24hrs), Av , Min:115 , Max:144 Diastolic (24hrs), Av, Min:57, Max:88 Pulse Av.6 Min: 88 Max: 99 Temp Av.7 C (98.1 F) Min: 36.2 C (97.2 F) Max: 37.4 C (99.3 F) Resp Av.2 Min: 16 Max: 18 SpO2 Av.6 % Min: 89 % Max: 98 % Intake/Output Summary (Last 24 hours) at 07/18/17 1152 Last data filed at 07/18/17 1100 Gross per 24 hour Intake 2726 ml Output 2550 ml Net 176 ml Current medications: Current Facility-Administered Medications Medication Dose Route Frequency Last Rate acyclovir (ZOVIRAX) tablet 800 mg 800 mg oral DAILY amLODIPine (NORVASC) tablet 10 mg 10 mg oral DAILY DULoxetine (CYMBALTA) capsule 90 mg 90 mg oral DAILY [START ON 07/20/2017] hydrocortisone 2.5 % cream topical BID levoFLOXacin (LEVAQUIN) tablet 500 mg 500 mg oral DAILY levothyroxine tablet 37.5 mcg 37.5 mcg oral BEFORE BREAKFAST lisinopril (PRINIVIL) tablet 5 mg 5 mg oral DAILY loratadine (CLARITIN) tablet 10 mg 10 mg oral DAILY omeprazole (PRILOSEC) capsule 40 mg 40 mg oral BEFORE BREAKFAST oxybutynin CR (DITROPAN-XL) tablet 15 mg 15 mg oral DAILY posaconazole DR (NOXAFIL) tablet 300 mg 300 mg oral DAILY tiotropium (SPIRIVA) inhalation 18 mcg 18 mcg inhalation DAILY triamcinolone acetonide (KENALOG) 0.1 % ointment topical BID Followed by [START ON 07/20/2017] triamcinolone acetonide (KENALOG) 0.1 % ointment topical BID Allergies: Allergies Allergen Reactions Morphine Rash and Facial Swelling Rash and facial swelling Opioids - Morphine Analogues Confusion Cefepime Rash Laboratory or other studies: Recent Labs 07/15/17 2351 07/16/17 2348 07/17/17 2347 WBC <0.10* <0.10* <0.10* HB 8.0* 7.5* 7.3* HCT 22.2* 21.3* 20.7* PLT 23* 18* 10* Recent Labs 07/15/17 2351 07/16/17 1826 07/16/17 2348 07/17/17 2347 NA 142 -- 142 140 K 2.9* 3.2* 3.2* 3.3* CL 105 -- 105 104 BICARB 27 -- 27 26 BUN 5* -- 7 10 CR 0.47* -- 0.45* 0.48* CA 8.7 -- 8.5* 8.8 MG 1.7 -- 1.7 1.7 PO4 3.0 -- 3.3 3.3 AST 19 -- 16 16 ALT 34 -- 31 28 TBILI 1.1 -- 1.0 0.8 AP 203* -- 196* 195* ALB 2.8* -- 2.9* 2.9* TP 6.0* -- 5.9* 5.9* URINE CULTURE [facility] (no units) Date Value 07/01/2017 No growth (<1000 cfu/mL) after 24 hours CULT, URINE SCREEN (no units) Date Value 07/01/2017 Positive (A) Lab Results Component Value Date APTT 37.5 (H) 07/17/2017 FIBRINOGEN 478 (H) 07/17/2017 Emily Galdamez PA-C - 07/18/2017 11:08 AM PDTFormatting of this note may be different from the original. Daily [facility] Note - Chemotherapy Admit [facility] Attending: Kay Duarte MD [facility] Physician: Pepe Chavis MD Local Oncologist: Daniel Patterson MD PCP: Saurav Small NP Date of Admission: 06/28/17 Hematologic Malignancy: AML ID: 51 yo woman with second relapse AML, FLT3 ITD admitted for evaluation and treatment. Hx COPD, Depression/PTSD, Disorder of Thyroid, HTN, Insomnia 24 Hour Events/Current Daily Plan: -Relapsed AML, Flt3: currently Arlette + modified Maurizio-C, currently day 18. Sorafenib insurance authorization/appeal rejected. Consider mylotarg for subsequent chemo cycles. Currently not a transplant candidate -Pancytopenia secondary to chemotherapy: standard transfusion parameters. One unit of plate lets and one unit of PRBCs transfused today -Rash: most consistent with drug rash. Derm consulted. Continue with triamcinolone cream -Lytes: standard replacement protocol. Potassium replaced today Subjective: Continues to feel well. Just finished breakfast before rounds. Objective: Last Vitals: BP 134/79 | Pulse 95 | Temp 37.4 C (99.3 F) | RR 16 | Ht 1.59 m (5' 2.6") | Wt 79.2 kg (174 lb 9.7 oz) | SpO2 94% | BMI 31.33 kg/(m^2) 24 Hour Vital Min/Max: Systolic (24hrs), Av , Min:115 , Max:144 Diastolic (24hrs), Av, Min:57, Max:88 Pulse Min: 88 Max: 99 Temp Min: 36.2 C (97.2 F) Max: 37.4 C (99.3 F) Resp Min: 16 Max: 18 SpO2 Min: 89 % Max: 98 % Intake/Output Summary (Last 24 hours) at 07/18/17 1108 Last data filed at 07/18/17 0900 Gross per 24 hour Intake 2726 ml Output 2250 ml Net 476 ml Physical Exam: General: This is a female in no acute distress. Sitting in chair. HEENT: PERRL. Sclerae anicteric. Mucosa pink with scattered petechiae on hard palate of mouth. Rosacea Skin: Erythematous, macular rash of face/left lateral neck Chest: Lungs clear to auscultation bilat. CV: RRR, no murmurs. Abdomen: S/NT/ND with NABS. No HSM appreciated. Extremities: Pulses strong and equal bilaterally. No c/c/BLE with petechiae & mild non pi tting edema. NeuroPsych: Alert and oriented x 3. Grossly nonfocal exam. CVC: RUE PICC site without inflammation or induration. C/D/I Laboratory Results: Recent Labs 07/15/17 2351 07/16/17 1826 07/16/17 2348 07/17/17 2347 NA 142 -- 142 140 K 2.9* 3.2* 3.2* 3.3* CL 105 -- 105 104 BICARB 27 -- 27 26 BUN 5* -- 7 10 CR 0.47* -- 0.45* 0.48* GLU 93 -- 92 102* CA 8.7 -- 8.5* 8.8 AST 19 -- 16 16 ALT 34 -- 31 28 AP 203* -- 196* 195* TBILI 1.1 -- 1.0 0.8 TP 6.0* -- 5.9* 5.9* ALB 2.8* -- 2.9* 2.9* Recent Labs 07/01/17 2318 07/02/17 2336 07/04/17 0040 07/15/17 2351 07/16/17 2348 07/17/17 2347 WBC 17.35* < > 3.52 < > 0.55* < > <0.10* <0.10* <0.10* RBC 2.47* < > 2.09* < > 2.23* < > 2.67* 2.56* 2.52* HB 7.4* < > 6.4* < > 6.7* < > 8.0* 7.5* 7.3* HCT 22.8* < > 19.2* < > 19.9* < > 22.2* 21.3* 20.7* PLT 12* < > 16* < > 7* < > 23* 18* 10* NEUTROPERC 13.2* -- 25.7* -- 32.5* -- -- -- -- LYMPHPERC 6.1* -- 5.3* -- 5.0* -- -- -- -- MONOPERC 0.9* -- 0.9* -- 10.0* -- -- -- -- BASOPERC 0.0 -- 0.0 -- 0.0 -- -- -- -- EOSPERC 0.0* -- 0.0* -- 0.0* -- -- -- -- < > = values in this interval not displayed. Meds: Reviewed on rounds, see current MAR for medication list SUMMARY OF PATIENT'S HOSPITALIZATION History of Present Illness: (from H&P) Rhea Hutchison is a 51-year-old woman with a history of COPD, depression, hypothyroidism, and AML diagnosed in late 2015 after she presented with pleuritic chest pain and shortness of br eath in addition to profound leukocytosis. Her disease was initially managed with 7+3+ Dasa tinib, course gated by neutropenic fevers, C. difficile, nodular groundglass opacities sudeep rning for invasive fungal infection (although galactomannan negative), treated with Isavucon azole -> Voriconazole. She was reinduced with Cytarabine and entered CR1. She subsequently relapsed in February 2017 started on FLAG-Arlette salvage-->CR2. Her course was subsequently c omplicated by bacterial pneumonia, otherwise recovered well Patient presents as a transfer from outside hospital ([facility]) where she pres ented with body aches and profound fatigue, anemic with new leukocytosis. Repeat bone marro w biopsy concerning for relapsed AML (blasts positive for CD 117, CD33). In the interim sin ce her initial admission, the patient endorses development of new new acute onset pleuritic left-sided chest pain. She states that this chest pain is stabbing, 5-6 out of 10 in intens ity. It is accompanied by a degree of resting dyspnea. Patient also endorses nagging cough productive of white/yellow sputum of approximately 1 week's duration. She denies constitut ional symptoms including fevers, chills, night sweats. She denies new palpitations. She de nies new oral lesions or odynophagia. She does endorse a degree of ongoing nausea but state s that that is baseline for her. She denies emesis. Endorses a degree of constipation. De nies deep new complaints. She does endorse a developing petechial rash over bilateral lo wer extremities, as well as her upper back. She denies new adenopathy. Hospitalization History: Hematology: #Relapsed Flt3 AML: Had salvage FLAG-Arlette + Midostaurin and Azacitidine bridge while awaitin g SCT now with relapse. Pertinent Diagnostics: -BM Bx 06/21/17 ([facility] [id number]): -Results: 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 myelogenous leukemia (60%); Blasts positive for CD117 and CD 33, negative for CD34, CD71, CD61, CD3 and PAX-5. -Cytogenetics: Normal -Genetrails: NPM1, DNMT3A, NRAS, TET2, FLT3 TKD mutations -06/30 peripheral blood flow and GeneTrails: -Flow: Recurrent acute myeloid leukemia (87% blasts) -GeneTrails not drawn Treatment -Chemotherapy regimen: Arlette + Maurizio-C, started 07/01/17 -Idarubicin 12 mg/m2 daily x 3 days -Cytarabine 1500 mg/m2 CI IV daily x 4 days. -Sorafenib authorization was denied -Chemo Day: 18 Patient is currently not a transplant candidate, but if it were to change, brother is a match #Pancytopenia secondary to chemotherapy: -See supportive care #Supportive Care: Growth factor: no growth factors required at this time Labs: Continue to check CBC daily Transfusion parameters: -Transfuse PRBCs for HCT <21% if asymptomatic -Transfuse PPH for platelet count <10,000 sooner PRN s/s bleeding Cardiovascular: Prechemo TTE on 06/29/17 shows EF of 65-70% #Hx of Hypertension: continues on home anti-hypertensives -Amlodipine 10mg daily -Lisinopril 5mg daily Pulmonary: #COPD: continues on home inhalers -Spiriva 18mcg daily -Albuterol PRN GI: #Abdominal pain: multifactorial, likely secondary to constipation, uncomplicated proctitis, and HSM. 06/29 CT AP showed uncomplicated proctitis, hepatosplenomegaly, and stool in rectum -Continue bowel regimen senna BID; MOM, Miralax, and Lactulose PRN -Fentanyl IV and oxycodone PO PRN pain #Transaminitis with hyperbilirubinemia: likely secondary to idarubicin and likely AML infil trates in liver responding to chemo -Monitor daily labs -Consider switching to Marie if continues to increase #SWAPNIL, no emesis: controlled -Scheduled zofran BID -Compazine PRN -Antiemetics PRN #GERD: controlled -Omeprazole to 40mg daily -Carafate QID #Diarrhea, likely due to chemotherapy: -Imodium PRN -Consider c diff testing if worsens /Renal: #Overactive bladder: chronic issue -Oxybutynin CR 15mg daily Neuro/Psych: #Depression/anxiety -Cymbalta 90mg daily -Lorazepam PRN anxiety Endocrine: #Hypothyroidism: -Synthroid 37.5mcg daily Skin #Rash: most consistent with drug rash. 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 Then switch to hydrocortisone 2.5 % ointment BID x 1-2 weeks, started 07/17 -On body: triamcinolone 0.1% ointment BID x 1-2 weeks, started 07/17 Infectious Disease: #Non-neutropenic fever, with septic picture 06/29 with tachycardia, tachypnea. Afebrile at th e time, however spiked a fever on 07/01. Localizing symptoms include pleuritic pain and abdomi nal pain. Bld cx NGTD. 06/29 CTA showed left pleural effusion and adjacent atelectasis, no PE or consolidations. 06/29 CT AP showed uncomplicated proctitis, HSM with scattered areas of li maria m AML infiltration, extramedullary hematopoiesis or microabscesses -s/p zosyn (06/29- 07/17) #Prophylaxis: Bacterial: levaquin Fungal: reports using marijuana, risk for fungal infection. Started Posaconazole 07/04 after chemotherapy Viral: acyclovir PCP: not indicated Fluid/Nutrition/Lytes: #Nutrition: Current diet -- Regular No Felisha's yogurt or Kefir. #Fluid: 1L IVF PRN for PO intake <2L/day #Lytes: -Continue to check chemistries daily -Replace per supportive care protocol Disposition: TBD. Anticipate 4-6 week hospitalization Emily Galdamez PA-C [facility] [address] [facility] Mailcode: [id number] [place] [address] Emily Galdamez PA-C - 07/17/2017 2:24 PM PDTFormatting of this note may be different from the original. Daily NICOLE Note - Chemotherapy Admit [facility] Attending: Kay Duarte MD [facility] Physician: Pepe Chavis MD Local Oncologist: Daniel Patterson MD PCP: Saurav Small NP Date of Admission: 06/28/17 Hematologic Malignancy: AML ID: 51 yo woman with second relapse AML, FLT3 ITD admitted for evaluation and treatment. Hx COPD, Depression/PTSD, Disorder of Thyroid, HTN, Insomnia 24 Hour Events/Current Daily Plan: -Relapsed AML, Flt3: currently Arlette + modified Maurizio-C, currently day 17. Sorafenib insurance authorization/appeal rejected. Consider mylotarg for subsequent chemo cycles. Currently not a transplant candidate -Pancytopenia secondary to chemotherapy: standard transfusion parameters. No transfusions t mayra -Non-neutropenic fever: noted 06/29. Now afebrile and VSS. 06/29 CTA showed left pleural effusi on, atelectasis, no PE or consolidations. 06/29 CT AP showed uncomplicated proctitis, HSM with scattered areas of likely AML infiltration, extramedullary hematopoiesis or microabscesses. De-escalated to levaquin today -Rash: most consistent with drug rash. Derm consulted. Started triamcinolone ointment today -Lytes: standard replacement protocol. Potassium replaced today Subjective: States she is doing really well. [facility] Objective: Last Vitals: BP 140/88 | Pulse 90 | Temp 36.2 C (97.2 F) | RR 18 | Ht 1.59 m (5' 2.6") | Wt 79.2 kg (174 lb 9.7 oz) | SpO2 98% | BMI 31.33 kg/(m^2) 24 Hour Vital Min/Max: Systolic (24hrs), Av , Min:114 , Max:146 Diastolic (24hrs), Av, Min:57, Max:89 Pulse Min: 90 Max: 101 Temp Min: 36.2 C (97.2 F) Max: 36.8 C (98.2 F) Resp Min: 16 Max: 18 SpO2 Min: 90 % Max: 98 % Intake/Output Summary (Last 24 hours) at 07/17/17 1424 Last data filed at 03/21/18 1300 Gross per 24 hour Intake 3350 ml Output 3300 ml Net 50 ml Physical Exam: General: This is a female in no acute distress. Sitting in chair. HEENT: PERRL. Sclerae anicteric. Mucosa pink with scattered petechiae on hard palate of mouth. Rosacea Skin: Erythematous, macular rash of face/left lateral neck Chest: Lungs clear to auscultation bilat. CV: RRR, no murmurs. Abdomen: S/NT/ND with NABS. No HSM appreciated. Extremities: Pulses strong and equal bilaterally. No c/c/BLE with petechiae & mild non pi tting edema. NeuroPsych: Alert and oriented x 3. Grossly nonfocal exam. CVC: RUE PICC site without inflammation or induration. C/D/I Laboratory Results: Recent Labs 07/15/17 0000 07/15/17 2351 07/16/17 1826 07/16/17 2348 NA 142 142 -- 142 K 3.0* 2.9* 3.2* 3.2* CL 106 105 -- 105 BICARB 26 27 -- 27 BUN 4* 5* -- 7 CR 0.40* 0.47* -- 0.45* GLU 88 93 -- 92 CA 8.4* 8.7 -- 8.5* AST 20 19 -- 16 ALT 41 34 -- 31 AP 219* 203* -- 196* TBILI 1.1 1.1 -- 1.0 TP 5.7* 6.0* -- 5.9* ALB 2.7* 2.8* -- 2.9* Recent Labs 07/01/17 2318 07/02/17 2336 07/04/17 0040 07/15/17 0000 07/15/17 2351 07/16/17 2348 WBC 17.35* < > 3.52 < > 0.55* < > <0.10* <0.10* <0.10* RBC 2.47* < > 2.09* < > 2.23* < > 2.44* 2.67* 2.56* HB 7.4* < > 6.4* < > 6.7* < > 7.3* 8.0* 7.5* HCT 22.8* < > 19.2* < > 19.9* < > 20.5* 22.2* 21.3* PLT 12* < > 16* < > 7* < > 4* 23* 18* NEUTROPERC 13.2* -- 25.7* -- 32.5* -- -- -- -- LYMPHPERC 6.1* -- 5.3* -- 5.0* -- -- -- -- MONOPERC 0.9* -- 0.9* -- 10.0* -- -- -- -- BASOPERC 0.0 -- 0.0 -- 0.0 -- -- -- -- EOSPERC 0.0* -- 0.0* -- 0.0* -- -- -- -- < > = values in this interval not displayed. Meds: Reviewed on rounds, see current MAR for medication list SUMMARY OF PATIENT'S HOSPITALIZATION History of Present Illness: (from H&P) Rhea uHtchison is a 51-year-old woman with a history of COPD, depression, hypothyroidism, and AML diagnosed in late 2015 after she presented with pleuritic chest pain and shortness of br eath in addition to profound leukocytosis. Her disease was initially managed with 7+3+ Dasa tinib, course gated by neutropenic fevers, C. difficile, nodular groundglass opacities sudeep rning for invasive fungal infection (although galactomannan negative), treated with Isavucon azole -> Voriconazole. She was reinduced with Cytarabine and entered CR1. She subsequently relapsed in February 2017 started on FLAG-Arlette salvage-->CR2. Her course was subsequently c omplicated by bacterial pneumonia, otherwise recovered well Patient presents as a transfer from outside hospital ([facility]) where she pres ented with body aches and profound fatigue, anemic with new leukocytosis. Repeat bone marro w biopsy concerning for relapsed AML (blasts positive for CD 117, CD33). In the interim sin ce her initial admission, the patient endorses development of new new acute onset pleuritic left-sided chest pain. She states that this chest pain is stabbing, 5-6 out of 10 in intens ity. It is accompanied by a degree of resting dyspnea. Patient also endorses nagging cough productive of white/yellow sputum of approximately 1 week's duration. She denies constitut ional symptoms including fevers, chills, night sweats. She denies new palpitations. She de nies new oral lesions or odynophagia. She does endorse a degree of ongoing nausea but state s that that is baseline for her. She denies emesis. Endorses a degree of constipation. De nies deep new complaints. She does endorse a developing petechial rash over bilateral lo wer extremities, as well as her upper back. She denies new adenopathy. Hospitalization History: Hematology: #Relapsed Flt3 AML: Had salvage FLAG-Arlette + Midostaurin and Azacitidine bridge while awaitin g SCT now with relapse. Pertinent Diagnostics: -BM Bx 06/21/17 ([facility] [id number]): -Results: 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 myelogenous leukemia (60%); Blasts positive for CD117 and CD 33, negative for CD34, CD71, CD61, CD3 and PAX-5. -Cytogenetics: Normal -Genetrails: NPM1, DNMT3A, NRAS, TET2, FLT3 TKD mutations -06/30 peripheral blood flow and GeneTrails: -Flow: Recurrent acute myeloid leukemia (87% blasts) -GeneTrails not drawn Treatment -Chemotherapy regimen: Arlette + Maurizio-C, started 07/01/17 -Idarubicin 12 mg/m2 daily x 3 days -Cytarabine 1500 mg/m2 CI IV daily x 4 days. -Sorafenib authorization was denied -Chemo Day: 17 Patient is currently not a transplant candidate, but if it were to change, brother is a match #Pancytopenia secondary to chemotherapy: -See supportive care #Supportive Care: Growth factor: no growth factors required at this time Labs: Continue to check CBC daily Transfusion parameters: -Transfuse PRBCs for HCT <21% if asymptomatic -Transfuse PPH for platelet count <10,000 sooner PRN s/s bleeding. Cardiovascular: Prechemo TTE on 06/29/17 shows EF of 65-70% #Hx of Hypertension: continues on home anti-hypertensives -Amlodipine 10mg daily -Lisinopril 5mg daily Pulmonary: #COPD: continues on home inhalers -Spiriva 18mcg daily -Albuterol PRN GI: #Abdominal pain: multifactorial, likely secondary to constipation, uncomplicated proctitis, and HSM. 06/29 CT AP showed uncomplicated proctitis, hepatosplenomegaly, and stool in rectum -Continue bowel regimen senna BID; MOM, Miralax, and Lactulose PRN -Fentanyl IV and oxycodone PO PRN pain #Transaminitis with hyperbilirubinemia: likely secondary to idarubicin and likely AML infil trates in liver responding to chemo -Monitor daily labs -Consider switching to Marie if continues to increase #SWAPNIL, no emesis: controlled -Scheduled zofran BID -Compazine PRN -Antiemetics PRN #GERD: controlled -Omeprazole to 40mg daily -Carafate QID #Diarrhea, likely due to chemotherapy: -Imodium PRN -Consider c diff testing if worsens /Renal: #Overactive bladder: chronic issue -Oxybutynin CR 15mg daily Neuro/Psych: #Depression/anxiety -Cymbalta 90mg daily -Lorazepam PRN anxiety Endocrine: #Hypothyroidism: -Synthroid 37.5mcg daily Skin #Rash: most consistent with drug rash. 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 Then switch to hydrocortisone 2.5 % ointment BID x 1-2 weeks, started 07/17 -On body: triamcinolone 0.1% ointment BID x 1-2 weeks, started 07/17 Infectious Disease: #Non-neutropenic fever, with septic picture 06/29 with tachycardia, tachypnea. Afebrile at th e time, however spiked a fever on 07/01. Localizing symptoms include pleuritic pain and abdomi nal pain. Bld cx NGTD. 06/29 CTA showed left pleural effusion and adjacent atelectasis, no PE or consolidations. 06/29 CT AP showed uncomplicated proctitis, HSM with scattered areas of li maria m AML infiltration, extramedullary hematopoiesis or microabscesses -s/p zosyn (06/29- 07/17) #Prophylaxis: Bacterial: levaquin Fungal: reports using marijuana, risk for fungal infection. Started Posaconazole 07/04 after chemotherapy Viral: acyclovir PCP: not indicated Fluid/Nutrition/Lytes: #Nutrition: Current diet -- Regular No Felisha's yogurt or Kefir. #Fluid: 1L IVF PRN for PO intake <2L/day #Lytes: -Continue to check chemistries daily -Replace per supportive care protocol Disposition: TBD. Anticipate 4-6 week hospitalization Emily Galdamez PA-C [facility] [id number] [facility] Mailcode: [id number] [place] [address] Kay Duarte MD - 07/17/2017 11:10 AM PDTFormatting of this note may be different from [facility] original. 07/17/2017 Hematologic Malignancies/Blood and marrow Transplant Attending Note I have reviewed and agree with the previously summarized HPI, PMH, FH, SH, and ROS as docum ented in the detailed note of the NICOLE provider. I also performed a history and physical examination of the patient myself and agree with [facility] documented findings and plan of care. Subjective: Overall the patient is feeling great. Good appetite and has been sleeping well. Denies naus ea/vomiting/diarrhea/constipation. Objective: VSS. On exam, I note no acute findings, patient is in no distress, no oral lesions or mucositis, RRR, lungs are clear, abdomen is benign, +erythematous, macular rash on face, neck and uppe r back, and neuro is unremarkable. Labs were reviewed and discussed with the pt. Brief assessment/plan: The major issues that I am directly managing that require continued hospital admission incl ude: 1. Relapsed AML, FLT3+ : Day 17 modified cytarabine + idarubicin. Not considered a transpla nt candidate. Plan for BMBx at count recovery. 2. Pancytopenia sec to chemotherapy: counts remain at jacquelin. Continue standard transfusion parameters. 3. Non-neutropenic fevers: first noted on 06/29 and now afebrile. Will de-escalate from Zos yn to PO levofloxacin. 4. Rash: Derm consulted 07/16 - believed to be "pruritic mixed-morphology skin rash most c/ w drug eruption" (sec to cytarabine). -Rec's for triamcinolone ointment bid x 3 days on face, then hydrocortisone ointment bid fo r 1-2 weeks. For body, triamcinolone ointment bid for 1-2 weeks. Today, we will continue the current level of support. Please refer to the NICOLE's note dated today for additional details on the specific plan and orders for today. Kay Duarte MD, MS [facility] Attending physician s total time is 35 minutes, >50% spent counseling and coordination of care. [facility] DEPARTMENT: [id number] - [facility] FACULTY MPV Place of Service: - Inpatient Date of Service: 07/17/2017 Modifiers: None Suggested CPT: 99929 - Subsequent, Detailed/High complex 35 min ######################################################### Vitals: Systolic (24hrs), Av , Min:114 , Max:146 Diastolic (24hrs), Av, Min:57, Max:89 Pulse Av.5 Min: 87 Max: 101 Temp Av.6 C (97.8 F) Min: 36.4 C (97.5 F) Max: 36.8 C (98.2 F) Resp Av.3 Min: 16 Max: 18 SpO2 Av.3 % Min: 90 % Max: 97 % Intake/Output Summary (Last 24 hours) at 07/17/17 1110 Last data filed at 07/17/17 0941 Gross per 24 hour Intake 3020 ml Output 3500 ml Net -480 ml Current medications: Current Facility-Administered Medications Medication Dose Route Frequency Last Rate acyclovir (ZOVIRAX) tablet 800 mg 800 mg oral DAILY amLODIPine (NORVASC) tablet 10 mg 10 mg oral DAILY DULoxetine (CYMBALTA) capsule 90 mg 90 mg oral DAILY hydrocortisone 1 % cream topical BID levoFLOXacin (LEVAQUIN) tablet 500 mg 500 mg oral DAILY levothyroxine tablet 37.5 mcg 37.5 mcg oral BEFORE BREAKFAST lisinopril (PRINIVIL) tablet 5 mg 5 mg oral DAILY loratadine (CLARITIN) tablet 10 mg 10 mg oral DAILY omeprazole (PRILOSEC) capsule 40 mg 40 mg oral BEFORE BREAKFAST oxybutynin CR (DITROPAN-XL) tablet 15 mg 15 mg oral DAILY posaconazole DR (NOXAFIL) tablet 300 mg 300 mg oral DAILY tiotropium (SPIRIVA) inhalation 18 mcg 18 mcg inhalation DAILY Allergies: Allergies Allergen Reactions Morphine Rash and Facial Swelling Rash and facial swelling Opioids - Morphine Analogues Confusion Cefepime Rash Laboratory or other studies: Recent Labs 07/15/17 0000 07/15/17 2351 07/16/17 2348 WBC <0.10* <0.10* <0.10* HB 7.3* 8.0* 7.5* HCT 20.5* 22.2* 21.3* PLT 4* 23* 18* Recent Labs 07/15/17 0000 07/15/17 2351 07/16/17 1826 07/16/17 2348 NA 142 142 -- 142 K 3.0* 2.9* 3.2* 3.2* CL 106 105 -- 105 BICARB 26 27 -- 27 BUN 4* 5* -- 7 CR 0.40* 0.47* -- 0.45* CA 8.4* 8.7 -- 8.5* MG 1.8 1.7 -- 1.7 PO4 2.6 3.0 -- 3.3 AST 20 19 -- 16 ALT 41 34 -- 31 TBILI 1.1 1.1 -- 1.0 AP 219* 203* -- 196* ALB 2.7* 2.8* -- 2.9* TP 5.7* 6.0* -- 5.9* URINE CULTURE [facility] (no units) Date Value 07/01/2017 No growth (<1000 cfu/mL) after 24 hours CULT, URINE SCREEN (no units) Date Value 07/01/2017 Positive (A) Lab Results Component Value Date APTT 35.8 07/15/2017 FIBRINOGEN 503 (H) 07/15/2017 Kay Duarte MD - 07/16/2017 12:25 PM PDTFormatting of this note may be different from jl baker original. 07/16/2017 Hematologic Malignancies/Blood and marrow Transplant Attending Note I have reviewed and agree with the previously summarized HPI, PMH, FH, SH, and ROS as docum ented in the detailed note of the NICOLE provider. I also performed a history and physical examination of the patient myself and agree with jl baker documented findings and plan of care. Subjective: Overall the patients is doing well. Walked laps this morning and walked 1 mile yesterday. D enies nausea/vomiting/diarrhea/constipation. Objective: VSS. On exam, I note no acute findings, patient is in no distress, RRR, lungs are clear, abdomen is benign, +erythematous, macular rash on face, neck and upper back, and neuro is unremarka ble. Labs were reviewed and discussed with this patient. Brief assessment/plan: The major issues that I am directly managing that require continued hospital admission incl ude: 1. Relapsed AML, FLT3+ : Day 16 modified cytarabine + idarubicin. Not considered a transpla nt candidate. Plan for BMBx at count recovery. 2. Pancytopenia sec to chemotherapy: counts are at jacquelin. Continue standard transfusion par ameters. 3. Non-neutropenic fevers: first noted on 06/29 and now afebrile. Continue Zosyn. 4. Rash: most likely d/t drug versus disease. Will have Derm consult today - appreciate rec 's. Today, we will continue the current level of support. Please refer to the NICOLE's note dated today for additional details on the specific plan and orders for today. Kay Duarte MD, MS [facility] Attending physician s total time is 35 minutes, >50% spent counseling and coordination of care. [facility] DEPARTMENT: [id number] - [facility]ACULTY MPV Place of Service: - Inpatient Date of Service: 07/16/2017 Modifiers: None Suggested CPT: 77330 - Subsequent, Detailed/High complex 35 min ######################################################### Vitals: Systolic (24hrs), Av , Min:128 , Max:141 Diastolic (24hrs), Av, Min:74, Max:93 Pulse Av.8 Min: 87 Max: 102 Temp Av.6 C (97.9 F) Min: 36.3 C (97.3 F) Max: 36.9 C (98.4 F) Resp Av.7 Min: 16 Max: 18 SpO2 Av.5 % Min: 90 % Max: 99 % Intake/Output Summary (Last 24 hours) at 07/16/17 1225 Last data filed at 07/16/17 1141 Gross per 24 hour Intake 2710 ml Output 3200 ml Net -490 ml Current medications: Current Facility-Administered Medications Medication Dose Route Frequency Last Rate acyclovir (ZOVIRAX) tablet 800 mg 800 mg oral DAILY amLODIPine (NORVASC) tablet 10 mg 10 mg oral DAILY DULoxetine (CYMBALTA) capsule 90 mg 90 mg oral DAILY hydrocortisone 1 % cream topical BID levothyroxine tablet 37.5 mcg 37.5 mcg oral BEFORE BREAKFAST lisinopril (PRINIVIL) tablet 5 mg 5 mg oral DAILY omeprazole (PRILOSEC) capsule 40 mg 40 mg oral BEFORE BREAKFAST ondansetron (ZOFRAN) tablet 8 mg 8 mg oral Q12H oxybutynin CR (DITROPAN-XL) tablet 15 mg 15 mg oral DAILY piperacillin-tazobactam (ZOSYN) IV 4.5 g 4.5 g intravenous Q6H Stopped (07/16/17 0930) posaconazole DR (NOXAFIL) tablet 300 mg 300 mg oral DAILY sucralfate (CARAFATE) suspension 1 g 1 g oral AC and HS tiotropium (SPIRIVA) inhalation 18 mcg 18 mcg inhalation DAILY Allergies: Allergies Allergen Reactions Morphine Rash and Facial Swelling Rash and facial swelling Opioids - Morphine Analogues Confusion Cefepime Rash Laboratory or other studies: Recent Labs 07/13/17 2330 07/15/17 0000 07/15/17 2351 WBC <0.10* <0.10* <0.10* HB 7.7* 7.3* 8.0* HCT 22.0* 20.5* 22.2* PLT 11* 4* 23* Recent Labs 07/13/17 2330 07/15/17 0000 07/15/17 2351 NA 140 142 142 K 3.2* 3.0* 2.9* CL 106 106 105 BICARB 28 26 27 BUN 6 4* 5* CR 0.42* 0.40* 0.47* CA 8.4* 8.4* 8.7 MG 1.8 1.8 1.7 PO4 2.9 2.6 3.0 AST 22 20 19 ALT 45 41 34 TBILI 1.2 1.1 1.1 AP 240* 219* 203* ALB 2.6* 2.7* 2.8* TP 5.5* 5.7* 6.0* URINE CULTURE [facility] (no units) Date Value 07/01/2017 No growth (<1000 cfu/mL) after 24 hours CULT, URINE SCREEN (no units) Date Value 07/01/2017 Positive (A) Lab Results Component Value Date APTT 35.8 07/15/2017 FIBRINOGEN 503 (H) 07/15/2017 Ellis Mejia, LAURAC,MPAS - 07/16/2017 9:49 AM PDTFormatting of this note may be different f rom the original. Daily NICOLE Note - Chemotherapy Admit Center for Hematologic Malignancies Attending: Allyson Duarte MD [facility] Physician: Pepe Chavis MD Local Oncologist: Daniel Patterson MD PCP: Saurav Small NP Date of Admission: 06/28/17 Hematologic Malignancy: AML ID: 51 yo woman with second relapse AML, FLT3 ITD admitted for evaluation and treatment. Hx COPD, Depression/PTSD, Disorder of Thyroid, HTN, Insomnia 24 Hour Events/Current Daily Plan: -Relapsed AML, Flt3: currently Arlette + modified Maurizio-C, currently day 16. Sorafenib insurance authorization/appeal rejected. Consider mylotarg for subsequent chemo cycles. Currently not a transplant candidate -Pancytopenia secondary to chemotherapy: standard transfusion parameters. No transfusions t mayra -Non-neutropenic fever: noted 3. Now afebrile and VSS. 3 CTA showed left pleural effusi on, atelectasis, no PE or consolidations. 33 CT AP showed uncomplicated proctitis, HSM with scattered areas of likely AML infiltration, extramedullary hematopoiesis or microabscesses Continue zosyn -Diarrhea: PRN imodium. No indication to check for c dif at this time. About 650ml of stool output in last 24 hours -Rash - drug vs disease, consult Derm 07/16 recs PENDING -Lytes: standard replacement protocol. Potassium replaced today Subjective: Doing well - no major changes overnight - rash about the same Objective: Last Vitals: BP 141/76 | Pulse 102 | Temp 36.8 C (98.2 F) | RR 16 | Ht 1.59 m (5' 2.6") | Wt 79.4 kg (175 lb 0.7 oz) | SpO2 91% | BMI 31.41 kg/(m^2) 24 Hour Vital Min/Max: Systolic (24hrs), Av , Min:130 , Max:147 Diastolic (24hrs), Av, Min:74, Max:89 Pulse Min: 91 Max: 102 Temp Min: 36.6 C (97.9 F) Max: 36.9 C (98.4 F) Resp Min: 16 Max: 18 SpO2 Min: 90 % Max: 98 % Intake/Output Summary (Last 24 hours) at 07/16/17 0949 Last data filed at 07/16/17 0935 Gross per 24 hour Intake 2110 ml Output 2600 ml Net -490 ml Physical Exam: General: This is a female in no acute distress. Sitting in chair. HEENT: PERRL. Sclerae anicteric. Mucosa pink with scattered petechiae on hard palate of mouth. Rosacea Skin: Erythematous, macular rash of face/left lateral neck Chest: Lungs clear to auscultation bilat. CV: RRR, no murmurs. Abdomen: S/NT/ND with NABS. No HSM appreciated. Extremities: Pulses strong and equal bilaterally. No c/c/BLE with petechiae & mild non pi tting edema. NeuroPsych: Alert and oriented x 3. Grossly nonfocal exam. CVC: RUE PICC site without inflammation or induration. C/D/I Laboratory Results: Recent Labs 07/13/17 2330 07/15/17 0000 07/15/17 2351 NA 140 142 142 K 3.2* 3.0* 2.9* CL 106 106 105 BICARB 28 26 27 BUN 6 4* 5* CR 0.42* 0.40* 0.47* GLU 82 88 93 CA 8.4* 8.4* 8.7 AST 22 20 19 ALT 45 41 34 AP 240* 219* 203* TBILI 1.2 1.1 1.1 TP 5.5* 5.7* 6.0* ALB 2.6* 2.7* 2.8* Recent Labs 07/01/17 2318 07/02/17 2336 07/04/17 0040 07/13/17 2330 07/15/17 0000 07/15/17 2351 WBC 17.35* < > 3.52 < > 0.55* < > <0.10* <0.10* <0.10* RBC 2.47* < > 2.09* < > 2.23* < > 2.60* 2.44* 2.67* HB 7.4* < > 6.4* < > 6.7* < > 7.7* 7.3* 8.0* HCT 22.8* < > 19.2* < > 19.9* < > 22.0* 20.5* 22.2* PLT 12* < > 16* < > 7* < > 11* 4* 23* NEUTROPERC 13.2* -- 25.7* -- 32.5* -- -- -- -- LYMPHPERC 6.1* -- 5.3* -- 5.0* -- -- -- -- MONOPERC 0.9* -- 0.9* -- 10.0* -- -- -- -- BASOPERC 0.0 -- 0.0 -- 0.0 -- -- -- -- EOSPERC 0.0* -- 0.0* -- 0.0* -- -- -- -- < > = values in this interval not displayed. Meds: Reviewed on rounds, see current MAR for medication list SUMMARY OF PATIENT'S HOSPITALIZATION History of Present Illness: (from H&P) Rhea Hutchison is a 51-year-old woman with a history of COPD, depression, hypothyroidism, and AML diagnosed in late 2015 after she presented with pleuritic chest pain and shortness of br eath in addition to profound leukocytosis. Her disease was initially managed with 7+3+ Dasa tinib, course gated by neutropenic fevers, C. difficile, nodular groundglass opacities sudeep rning for invasive fungal infection (although galactomannan negative), treated with Isavucon azole -> Voriconazole. She was reinduced with Cytarabine and entered CR1. She subsequently relapsed in February 2017 started on FLAG-Arlette salvage-->CR2. Her course was subsequently c omplicated by bacterial pneumonia, otherwise recovered well Patient presents as a transfer from outside hospital ([facility]) where she pres ented with body aches and profound fatigue, anemic with new leukocytosis. Repeat bone marro w biopsy concerning for relapsed AML (blasts positive for CD 117, CD33). In the interim sin ce her initial admission, the patient endorses development of new new acute onset pleuritic left-sided chest pain. She states that this chest pain is stabbing, 5-6 out of 10 in intens ity. It is accompanied by a degree of resting dyspnea. Patient also endorses nagging cough productive of white/yellow sputum of approximately 1 week's duration. She denies constitut ional symptoms including fevers, chills, night sweats. She denies new palpitations. She de nies new oral lesions or odynophagia. She does endorse a degree of ongoing nausea but state s that that is baseline for her. She denies emesis. Endorses a degree of constipation. De nies deep new complaints. She does endorse a developing petechial rash over bilateral lo wer extremities, as well as her upper back. She denies new adenopathy. Hospitalization History: Hematology: #Relapsed Flt3 AML: Had salvage FLAG-Arlette + Midostaurin and Azacitidine bridge while awaitin g SCT now with relapse. Pertinent Diagnostics: -BM Bx 06/21/17 ([facility] [id number]): -Results: 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 myelogenous leukemia (60%); Blasts positive for CD117 and CD 33, negative for CD34, CD71, CD61, CD3 and PAX-5. -Cytogenetics: Normal -Genetrails: NPM1, DNMT3A, NRAS, TET2, FLT3 TKD mutations -/ peripheral blood flow and GeneTrails: -Flow: Recurrent acute myeloid leukemia (87% blasts) -GeneTrails not drawn Treatment -Chemotherapy regimen: Arlette + Maurizio-C, started 07/01/17 -Idarubicin 12 mg/m2 daily x 3 days -Cytarabine 1500 mg/m2 CI IV daily x 4 days. -Sorafenib authorization was denied -Chemo Day: 16 Patient is currently not a transplant candidate, but if it were to change, brother is a match #Pancytopenia secondary to chemotherapy: -See supportive care #Supportive Care: Growth factor: no growth factors required at this time Labs: Continue to check CBC daily Transfusion parameters: -Transfuse PRBCs for HCT <21% if asymptomatic -Transfuse PPH for platelet count <10,000 sooner PRN s/s bleeding. Cardiovascular: Prechemo TTE on 06/29/17 shows EF of 65-70% #Hx of Hypertension: continues on home anti-hypertensives -Amlodipine 10mg daily -Lisinopril 5mg daily Pulmonary: #COPD: continues on home inhalers -Spiriva 18mcg daily -Albuterol PRN GI: #Abdominal pain: multifactorial, likely secondary to constipation, uncomplicated proctitis, and HSM. 06/29 CT AP showed uncomplicated proctitis, hepatosplenomegaly, and stool in rectum -Continue bowel regimen senna BID; MOM, Miralax, and Lactulose PRN -Fentanyl IV and oxycodone PO PRN pain #Transaminitis with hyperbilirubinemia: likely secondary to idarubicin and likely AML infil trates in liver responding to chemo -Monitor daily labs -Consider switching to Marie if continues to increase #SWAPNIL, no emesis: controlled -Scheduled zofran BID -Compazine PRN -Antiemetics PRN #GERD: controlled -Omeprazole to 40mg daily -Carafate QID #Diarrhea, likely due to chemotherapy: -Imodium PRN -Consider c diff testing if worsens /Renal: #Overactive bladder: chronic issue -Oxybutynin CR 15mg daily Neuro/Psych: #Depression/anxiety -Cymbalta 90mg daily -Lorazepam PRN anxiety Endocrine: #Hypothyroidism: -Synthroid 37.5mcg daily Infectious Disease: #Non-neutropenic fever, with septic picture 06/29 with tachycardia, tachypnea. Afebrile at th e time, however spiked a fever on 07/01. Localizing symptoms include pleuritic pain and abdomi nal pain. Bld cx NGTD. 06/29 CTA showed left pleural effusion and adjacent atelectasis, no PE or consolidations. 06/29 CT AP showed uncomplicated proctitis, HSM with scattered areas of li maria m AML infiltration, extramedullary hematopoiesis or microabscesses -Zosyn (06/29- ) #Prophylaxis: Bacterial: as above Fungal: reports using marijuana, risk for fungal infection. Started Posaconazole 07/04 after chemotherapy. Viral: acyclovir PCP: not indicated Fluid/Nutrition/Lytes: #Nutrition: Current diet -- Regular No Felisha's yogurt or Kefir. #Fluid: 1L IVF PRN for PO intake <2L/day #Lytes: -Continue to check chemistries daily -Replace per supportive care protocol Disposition: TBD. Anticipate 4-6 week hospitalization Ellis Mejia PA-C, [facility] [id number] Mailcode: [id number] [place] [address] Kay Duarte MD - 07/15/2017 3:34 PM PDTFormatting of this note may be different from [facility] original. 07/15/2017 Hematologic Malignancies/Blood and marrow Transplant Attending Note I have reviewed and agree with the previously summarized HPI, PMH, FH, SH, and ROS as docum ented in the detailed note of NICOLE provider. I also performed a history and physical examination of the patient myself and agree with [facility] documented findings and plan of care. Subjective: Pt is doing well and reports rash on head/neck/upper back, denies pruritis. Denies nausea/v omiting/constipation. Objective: VSS On exam, I note no acute findings, patient is in no distress, RRR, lungs are clear, abdomen is benign, +erythematous, macular rash on face, neck and upper back, and neuro is unremarka ble. Labs reviewed and discussed with pt. Brief assessment/plan: The major issues that I am directly managing that require continued hospital admission incl ude: 1. Relapsed AML, FLT3+ : Day 15 of modified cytarabine + idarubicin. Not considered a trans plant candidate. Plan for BMBx at count recovery. 2. Pancytopenia sec to chemotherapy: counts are at jacquelin. Continue standard transfusion par ameters as needed. 3. Non-neutropenic fevers: first noted on 06/29 and now afebrile. Continue Zosyn. 4. Rash: most likely d/t drug versus disease. Will plan for Derm consult. 5. Diarrhea: Continue prn Imodium. Today, we will continue the current level of support. Please refer to the NICOLE's note dated today for additional details on the specific plan and orders for today. Kay Duarte MD, MS [facility] Attending physician s total time is 35 minutes, >50% spent counseling and coordination of care. [facility] DEPARTMENT: [id number] - [facility] M[facility] Place of Service: - Inpatient Date of Service: 07/15/2017 Modifiers: None Suggested CPT: 46961 - Subsequent, Detailed/High complex 35 min ######################################################### Vitals: Systolic (24hrs), Av , Min:128 , Max:141 Diastolic (24hrs), Av, Min:74, Max:93 Pulse Av.8 Min: 87 Max: 102 Temp Av.6 C (97.9 F) Min: 36.3 C (97.3 F) Max: 36.9 C (98.4 F) Resp Av.7 Min: 16 Max: 18 SpO2 Av.5 % Min: 90 % Max: 99 % Intake/Output Summary (Last 24 hours) at 07/16/17 1534 Last data filed at 07/16/17 1400 Gross per 24 hour Intake 2245 ml Output 3250 ml Net -1005 ml Current medications: Current Facility-Administered Medications Medication Dose Route Frequency Last Rate acyclovir (ZOVIRAX) tablet 800 mg 800 mg oral DAILY amLODIPine (NORVASC) tablet 10 mg 10 mg oral DAILY DULoxetine (CYMBALTA) capsule 90 mg 90 mg oral DAILY hydrocortisone 1 % cream topical BID levothyroxine tablet 37.5 mcg 37.5 mcg oral BEFORE BREAKFAST lisinopril (PRINIVIL) tablet 5 mg 5 mg oral DAILY omeprazole (PRILOSEC) capsule 40 mg 40 mg oral BEFORE BREAKFAST ondansetron (ZOFRAN) tablet 8 mg 8 mg oral Q12H oxybutynin CR (DITROPAN-XL) tablet 15 mg 15 mg oral DAILY piperacillin-tazobactam (ZOSYN) IV 4.5 g 4.5 g intravenous Q6H Stopped (07/16/17 0930) posaconazole DR (NOXAFIL) tablet 300 mg 300 mg oral DAILY sucralfate (CARAFATE) suspension 1 g 1 g oral AC and HS tiotropium (SPIRIVA) inhalation 18 mcg 18 mcg inhalation DAILY Allergies: Allergies Allergen Reactions Morphine Rash and Facial Swelling Rash and facial swelling Opioids - Morphine Analogues Confusion Cefepime Rash Laboratory or other studies: Recent Labs 07/13/17 2330 07/15/17 0000 07/15/17 2351 WBC <0.10* <0.10* <0.10* HB 7.7* 7.3* 8.0* HCT 22.0* 20.5* 22.2* PLT 11* 4* 23* Recent Labs 07/13/17 2330 07/15/17 0000 07/15/17 2351 NA 140 142 142 K 3.2* 3.0* 2.9* CL 106 106 105 BICARB 28 26 27 BUN 6 4* 5* CR 0.42* 0.40* 0.47* CA 8.4* 8.4* 8.7 MG 1.8 1.8 1.7 PO4 2.9 2.6 3.0 AST 22 20 19 ALT 45 41 34 TBILI 1.2 1.1 1.1 AP 240* 219* 203* ALB 2.6* 2.7* 2.8* TP 5.5* 5.7* 6.0* URINE CULTURE [facility] (no units) Date Value 07/01/2017 No growth (<1000 cfu/mL) after 24 hours CULT, URINE SCREEN (no units) Date Value 07/01/2017 Positive (A) Lab Results Component Value Date APTT 35.8 07/15/2017 FIBRINOGEN 503 (H) 07/15/2017 Ellis Mejia PA-C,[facility] - 07/15/2017 10:11 AM PDTFormatting of this note may be different f rom the original. Daily NICOLE Note - Chemotherapy Admit [facility] Attending: Allyson Montero [facility] Physician: Pepe Chavis MD Local Oncologist: Daniel Patterson MD PCP: Saurav Small NP Date of Admission: 06/28/17 Hematologic Malignancy: AML ID: 51 yo woman with second relapse AML, FLT3 ITD admitted for evaluation and treatment. Hx COPD, Depression/PTSD, Disorder of Thyroid, HTN, Insomnia 24 Hour Events/Current Daily Plan: -Relapsed AML, Flt3: currently Arlette + modified Maurizio-C, currently day 15. Sorafenib insurance authorization/appeal rejected. Consider mylotarg for subsequent chemo cycles. Currently not a transplant candidate -Pancytopenia secondary to chemotherapy: standard transfusion parameters. No transfusions t mayra -Non-neutropenic fever: noted 06/29. Now afebrile and VSS. 06/29 CTA showed left pleural effusi on, atelectasis, no PE or consolidations. 06/29 CT AP showed uncomplicated proctitis, HSM with scattered areas of likely AML infiltration, extramedullary hematopoiesis or microabscesses Continue zosyn -Diarrhea: PRN imodium. No indication to check for c diff at this time. About 1L of stool o utput in last 24 hours -Rash - drug vs disease, consult Derm 07/15 recs PENDING -Lytes: standard replacement protocol. Potassium replaced today Subjective: Doing really well- - rash on face seems worse today Objective: Last Vitals: BP 141/85 | Pulse 91 | Temp 36.4 C (97.5 F) | RR 16 | Ht 1.59 m (5' 2.6") | Wt 81.1 kg (178 lb 12.7 oz) | SpO2 97% | BMI 32.08 kg/(m^2) 24 Hour Vital Min/Max: Systolic (24hrs), Av , Min:118 , Max:145 Diastolic (24hrs), Av, Min:60, Max:91 Pulse Min: 90 Max: 97 Temp Min: 36.2 C (97.2 F) Max: 37 C (98.6 F) Resp Min: 16 Max: 16 SpO2 Min: 93 % Max: 97 % Intake/Output Summary (Last 24 hours) at 07/15/17 1011 Last data filed at 07/15/17 0905 Gross per 24 hour Intake 4271 ml Output 6650 ml Net -2379 ml Physical Exam: General: This is a female in no acute distress. Sitting in chair. HEENT: PERRL. Sclerae anicteric. Mucosa pink with scattered petechiae on hard palate of mouth. Rosacea Skin: Erythematous, macular rash of face/left lateral neck Chest: Lungs clear to auscultation bilat. CV: RRR, no murmurs. Abdomen: S/NT/ND with NABS. No HSM appreciated. Extremities: Pulses strong and equal bilaterally. No c/c/BLE with petechiae & mild non pi tting edema. NeuroPsych: Alert and oriented x 3. Grossly nonfocal exam. CVC: RUE PICC site without inflammation or induration. C/D/I Laboratory Results: Recent Labs 07/12/17233007/13/17232907/15/17 0000 NA 140 140 142 K 3.3* 3.2* 3.0* CL 104 106 106 BICARB 27 28 26 BUN 7 6 4* CR 0.48* 0.42* 0.40* GLU 82 82 88 CA 8.3* 8.4* 8.4* AST 22 22 20 ALT 50 45 41 AP 237* 240* 219* TBILI 1.4* 1.2 1.1 TP 5.5* 5.5* 5.7* ALB 2.6* 2.6* 2.7* Recent Labs 07/01/17231707/02/17233507/04/17 0040 07/12/17233007/13/170 07/15/17 0000 WBC 17.35* < > 3.52 < > 0.55* < > <0.10* <0.10* <0.10* RBC 2.47* < > 2.09* < > 2.23* < > 2.29* 2.60* 2.44* HB 7.4* < > 6.4* < > 6.7* < > 6.9* 7.7* 7.3* HCT 22.8* < > 19.2* < > 19.9* < > 19.8* 22.0* 20.5* PLT 12* < > 16* < > 7* < > 20* 11* 4* NEUTROPERC 13.2* -- 25.7* -- 32.5* -- -- -- -- LYMPHPERC 6.1* -- 5.3* -- 5.0* -- -- -- -- MONOPERC 0.9* -- 0.9* -- 10.0* -- -- -- -- BASOPERC 0.0 -- 0.0 -- 0.0 -- -- -- -- EOSPERC 0.0* -- 0.0* -- 0.0* -- -- -- -- < > = values in this interval not displayed. Meds: Reviewed on rounds, see current MAR for medication list SUMMARY OF PATIENT'S HOSPITALIZATION History of Present Illness: (from H&P) Rhea Hutchison is a 51-year-old woman with a history of COPD, depression, hypothyroidism, and AML diagnosed in late 2015 after she presented with pleuritic chest pain and shortness of br eath in addition to profound leukocytosis. Her disease was initially managed with 7+3+ Dasa tinib, course gated by neutropenic fevers, C. difficile, nodular groundglass opacities sudeep rning for invasive fungal infection (although galactomannan negative), treated with Isavucon azole -> Voriconazole. She was reinduced with Cytarabine and entered CR1. She subsequently relapsed in February 2017 started on FLAG-Arlette salvage-->CR2. Her course was subsequently c omplicated by bacterial pneumonia, otherwise recovered well Patient presents as a transfer from outside hospital ([facility]) where she pres ented with body aches and profound fatigue, anemic with new leukocytosis. Repeat bone marro w biopsy concerning for relapsed AML (blasts positive for CD 117, CD33). In the interim sin ce her initial admission, the patient endorses development of new new acute onset pleuritic left-sided chest pain. She states that this chest pain is stabbing, 5-6 out of 10 in intens ity. It is accompanied by a degree of resting dyspnea. Patient also endorses nagging cough productive of white/yellow sputum of approximately 1 week's duration. She denies constitut ional symptoms including fevers, chills, night sweats. She denies new palpitations. She de nies new oral lesions or odynophagia. She does endorse a degree of ongoing nausea but state s that that is baseline for her. She denies emesis. Endorses a degree of constipation. De nies deep new complaints. She does endorse a developing petechial rash over bilateral lo wer extremities, as well as her upper back. She denies new adenopathy. Hospitalization History: Hematology: #Relapsed Flt3 AML: Had salvage FLAG-Arlette + Midostaurin and Azacitidine bridge while awaitin g SCT now with relapse. Pertinent Diagnostics: -BM Bx 06/21/17 ([facility] [id number]): -Results: 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 myelogenous leukemia (60%); Blasts positive for CD117 and CD 33, negative for CD34, CD71, CD61, CD3 and PAX-5. -Cytogenetics: Normal -Genetrails: NPM1, DNMT3A, NRAS, TET2, FLT3 TKD mutations -06/30 peripheral blood flow and GeneTrails: -Flow: Recurrent acute myeloid leukemia (87% blasts) -GeneTrails not drawn Treatment -Chemotherapy regimen: Arlette + Maurizio-C, started 07/01/17 -Idarubicin 12 mg/m2 daily x 3 days -Cytarabine 1500 mg/m2 CI IV daily x 4 days. -Sorafenib authorization was denied -Chemo Day: 15 Patient is currently not a transplant candidate, but if it were to change, brother is a match #Pancytopenia secondary to chemotherapy: -See supportive care #Supportive Care: Growth factor: no growth factors required at this time Labs: Continue to check CBC daily Transfusion parameters: -Transfuse PRBCs for HCT <21% if asymptomatic -Transfuse PPH for platelet count <10,000 sooner PRN s/s bleeding. Cardiovascular: Prechemo TTE on 06/29/17 shows EF of 65-70% #Hx of Hypertension: continues on home anti-hypertensives -Amlodipine 10mg daily -Lisinopril 5mg daily Pulmonary: #COPD: continues on home inhalers -Spiriva 18mcg daily -Albuterol PRN GI: #Abdominal pain: multifactorial, likely secondary to constipation, uncomplicated proctitis, and HSM. 06/29 CT AP showed uncomplicated proctitis, hepatosplenomegaly, and stool in rectum -Continue bowel regimen senna BID; MOM, Miralax, and Lactulose PRN -Fentanyl IV and oxycodone PO PRN pain #Transaminitis with hyperbilirubinemia: likely secondary to idarubicin and likely AML infil trates in liver responding to chemo -Monitor daily labs -Consider switching to Marie if continues to increase #SWAPNIL, no emesis: controlled -Scheduled zofran BID -Compazine PRN -Antiemetics PRN #GERD: controlled -Omeprazole to 40mg daily -Carafate QID #Diarrhea, likely due to chemotherapy: -Imodium PRN -Consider c diff testing if worsens /Renal: #Overactive bladder: chronic issue -Oxybutynin CR 15mg daily Neuro/Psych: #Depression/anxiety -Cymbalta 90mg daily -Lorazepam PRN anxiety Endocrine: #Hypothyroidism: -Synthroid 37.5mcg daily Infectious Disease: #Non-neutropenic fever, with septic picture 06/29 with tachycardia, tachypnea. Afebrile at th e time, however spiked a fever on 07/01. Localizing symptoms include pleuritic pain and abdomi nal pain. Bld cx NGTD. 06/29 CTA showed left pleural effusion and adjacent atelectasis, no PE or consolidations. 06/29 CT AP showed uncomplicated proctitis, HSM with scattered areas of li maria m AML infiltration, extramedullary hematopoiesis or microabscesses -Zosyn (06/29- ) #Prophylaxis: Bacterial: as above Fungal: reports using marijuana, risk for fungal infection. Started Posaconazole 07/04 after chemotherapy. Viral: acyclovir PCP: not indicated Fluid/Nutrition/Lytes: #Nutrition: Current diet -- Regular No Felisha's yogurt or Kefir. #Fluid: 1L IVF PRN for PO intake <2L/day #Lytes: -Continue to check chemistries daily -Replace per supportive care protocol Disposition: TBD. Anticipate 4-6 week hospitalization Ellis Mejia PA-C, [facility] [address] Mailcode: [facility] [place] [address] Emily Galdamez PA-C - 07/14/2017 12:02 PM PDTFormatting of this note may be different from the original. Daily NICOLE Note - Chemotherapy Admit [facility] Attending: Pepe Chavis MD [facility] Physician: Pepe Chavis MD Local Oncologist: Daniel Patterson MD PCP: Saurav Small NP Date of Admission: 06/28/17 Hematologic Malignancy: AML ID: 51 yo woman with second relapse AML, FLT3 ITD admitted for evaluation and treatment. Hx COPD, Depression/PTSD, Disorder of Thyroid, HTN, Insomnia 24 Hour Events/Current Daily Plan: -Relapsed AML, Flt3: currently Arlette + modified Maurizio-C, currently day 14. Sorafenib insurance authorization/appeal rejected. Consider mylotarg for subsequent chemo cycles. Currently not a transplant candidate -Pancytopenia secondary to chemotherapy: standard transfusion parameters. No transfusions t mayra -Non-neutropenic fever: noted 06/29. Now afebrile and VSS. 3/3 CTA showed left pleural effusi on, atelectasis, no PE or consolidations. 3/3 CT AP showed uncomplicated proctitis, HSM with scattered areas of likely AML infiltration, extramedullary hematopoiesis or microabscesses Continue zosyn -Diarrhea: PRN imodium. No indication to check for c diff at this time. About 1L of stool o utput in last 24 hours -Lytes: standard replacement protocol. Potassium replaced today Subjective: Doing really well. Happy she was able to get off the floor yesterday. Objective: Last Vitals: BP 145/91 | Pulse 90 | Temp 36.3 C (97.3 F) | RR 16 | Ht 1.59 m (5' 2.6") | Wt 82.5 kg (181 lb 14.1 oz) | SpO2 97% | BMI 32.63 kg/(m^2) 24 Hour Vital Min/Max: Systolic (24hrs), Av , Min:114 , Max:150 Diastolic (24hrs), Av, Min:60, Max:91 Pulse Min: 88 Max: 105 Temp Min: 36.3 C (97.3 F) Max: 37 C (98.6 F) Resp Min: 16 Max: 20 SpO2 Min: 91 % Max: 97 % Intake/Output Summary (Last 24 hours) at 07/14/17 1202 Last data filed at 07/14/17 1100 Gross per 24 hour Intake 2960 ml Output 4250 ml Net -1290 ml Physical Exam: General: This is a female in no acute distress. Lying in bed. HEENT: PERRL. Sclerae anicteric. Mucosa pink with scattered petechiae on hard palate of mouth. Rosacea Skin: No rash, lesions noted. Chest: Lungs clear to auscultation bilat. CV: RRR, no murmurs. Abdomen: S/NT/ND with NABS. No HSM appreciated. Extremities: Pulses strong and equal bilaterally. No c/c/BLE with petechiae & mild non pi tting edema. NeuroPsych: Alert and oriented x 3. Grossly nonfocal exam. CVC: RUE PICC site without inflammation or induration. C/D/I Laboratory Results: Recent Labs 07/12/17 0104 07/12/17 233007/13/172329 NA 140 140 140 K 3.6 3.3* 3.2* CL 105 104 106 BICARB 28 27 28 BUN 8 7 6 CR 0.48* 0.48* 0.42* GLU 109* 82 82 CA 8.1* 8.3* 8.4* AST 20 22 22 ALT 64* 50 45 AP 219* 237* 240* TBILI 0.9 1.4* 1.2 TP 5.8* 5.5* 5.5* ALB 2.7* 2.6* 2.6* Recent Labs 07/01/17231707/02/17233507/04/17 0040 07/12/17 0104 07/12/17233007/13/172329 WBC 17.35* < > 3.52 < > 0.55* < > <0.10* <0.10* <0.10* RBC 2.47* < > 2.09* < > 2.23* < > 2.77* 2.29* 2.60* HB 7.4* < > 6.4* < > 6.7* < > 8.1* 6.9* 7.7* HCT 22.8* < > 19.2* < > 19.9* < > 23.5* 19.8* 22.0* PLT 12* < > 16* < > 7* < > 5* 20* 11* NEUTROPERC 13.2* -- 25.7* -- 32.5* -- -- -- -- LYMPHPERC 6.1* -- 5.3* -- 5.0* -- -- -- -- MONOPERC 0.9* -- 0.9* -- 10.0* -- -- -- -- BASOPERC 0.0 -- 0.0 -- 0.0 -- -- -- -- EOSPERC 0.0* -- 0.0* -- 0.0* -- -- -- -- < > = values in this interval not displayed. Meds: Reviewed on rounds, see current MAR for medication list SUMMARY OF PATIENT'S HOSPITALIZATION History of Present Illness: (from H&P) Rhea Hutchison is a 51-year-old woman with a history of COPD, depression, hypothyroidism, and AML diagnosed in late 2015 after she presented with pleuritic chest pain and shortness of br eath in addition to profound leukocytosis. Her disease was initially managed with 7+3+ Dasa tinib, course gated by neutropenic fevers, C. difficile, nodular groundglass opacities sudeep rning for invasive fungal infection (although galactomannan negative), treated with Isavucon azole -> Voriconazole. She was reinduced with Cytarabine and entered CR1. She subsequently relapsed in February 2017 started on FLAG-Arlette salvage-->CR2. Her course was subsequently c omplicated by bacterial pneumonia, otherwise recovered well Patient presents as a transfer from outside hospital ([facility]) where she pres ented with body aches and profound fatigue, anemic with new leukocytosis. Repeat bone marro w biopsy concerning for relapsed AML (blasts positive for CD 117, CD33). In the interim sin ce her initial admission, the patient endorses development of new new acute onset pleuritic left-sided chest pain. She states that this chest pain is stabbing, 5-6 out of 10 in intens ity. It is accompanied by a degree of resting dyspnea. Patient also endorses nagging cough productive of white/yellow sputum of approximately 1 week's duration. She denies constitut ional symptoms including fevers, chills, night sweats. She denies new palpitations. She de nies new oral lesions or odynophagia. She does endorse a degree of ongoing nausea but state s that that is baseline for her. She denies emesis. Endorses a degree of constipation. De nies deep new complaints. She does endorse a developing petechial rash over bilateral lo wer extremities, as well as her upper back. She denies new adenopathy. Hospitalization History: Hematology: #Relapsed Flt3 AML: Had salvage FLAG-Arlette + Midostaurin and Azacitidine bridge while awaitin g SCT now with relapse. Pertinent Diagnostics: -BM Bx 06/21/17 ([facility] [id number]): -Results: 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 myelogenous leukemia (60%); Blasts positive for CD117 and CD 33, negative for CD34, CD71, CD61, CD3 and PAX-5. -Cytogenetics: Normal -Genetrails: NPM1, DNMT3A, NRAS, TET2, FLT3 TKD mutations -06/30 peripheral blood flow and GeneTrails: -Flow: Recurrent acute myeloid leukemia (87% blasts) -GeneTrails not drawn Treatment -Chemotherapy regimen: Arlette + Maurizio-C, started 07/01/17 -Idarubicin 12 mg/m2 daily x 3 days -Cytarabine 1500 mg/m2 CI IV daily x 4 days. -Sorafenib authorization was denied -Chemo Day: 14 Patient is currently not a transplant candidate, but if it were to change, brother is a match #Pancytopenia secondary to chemotherapy: -See supportive care #Supportive Care: Growth factor: no growth factors required at this time Labs: Continue to check CBC daily Transfusion parameters: -Transfuse PRBCs for HCT <21% if asymptomatic -Transfuse PPH for platelet count <10,000 sooner PRN s/s bleeding. Cardiovascular: Prechemo TTE on 06/29/17 shows EF of 65-70% #Hx of Hypertension: continues on home anti-hypertensives -Amlodipine 10mg daily -Lisinopril 5mg daily Pulmonary: #COPD: continues on home inhalers -Spiriva 18mcg daily -Albuterol PRN GI: #Abdominal pain: multifactorial, likely secondary to constipation, uncomplicated proctitis, and HSM. 06/29 CT AP showed uncomplicated proctitis, hepatosplenomegaly, and stool in rectum -Continue bowel regimen senna BID; MOM, Miralax, and Lactulose PRN -Fentanyl IV and oxycodone PO PRN pain #Transaminitis with hyperbilirubinemia: likely secondary to idarubicin and likely AML infil trates in liver responding to chemo -Monitor daily labs -Consider switching to Marie if continues to increase #SWAPNIL, no emesis: controlled -Scheduled zofran BID -Compazine PRN -Antiemetics PRN #GERD: controlled -Omeprazole to 40mg daily -Carafate QID #Diarrhea, likely due to chemotherapy: -Imodium PRN -Consider c diff testing if worsens /Renal: #Overactive bladder: chronic issue -Oxybutynin CR 15mg daily Neuro/Psych: #Depression/anxiety -Cymbalta 90mg daily -Lorazepam PRN anxiety Endocrine: #Hypothyroidism: -Synthroid 37.5mcg daily Infectious Disease: #Non-neutropenic fever, with septic picture 06/29 with tachycardia, tachypnea. Afebrile at th e time, however spiked a fever on 07/01. Localizing symptoms include pleuritic pain and abdomi nal pain. Bld cx NGTD. 06/29 CTA showed left pleural effusion and adjacent atelectasis, no PE or consolidations. 06/29 CT AP showed uncomplicated proctitis, HSM with scattered areas of li maria m AML infiltration, extramedullary hematopoiesis or microabscesses -Zosyn (06/29- ) #Prophylaxis: Bacterial: as above Fungal: reports using marijuana, risk for fungal infection. Started Posaconazole 07/04 after chemotherapy. Viral: acyclovir PCP: not indicated Fluid/Nutrition/Lytes: #Nutrition: Current diet -- Regular No Felisha's yogurt or Kefir. #Fluid: 1L IVF PRN for PO intake <2L/day #Lytes: -Continue to check chemistries daily -Replace per supportive care protocol Disposition: TBD. Anticipate 4-6 week hospitalization Emily Galdamez PA-C [address] [facility] Mailcode: [id number] [place] [address] Pepe Chavis MD - 07/14/2017 10:49 AM PDTFormatting of this note may be different from th e original. 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 Was in CR2 and then relapsed. June 21, 2017 ([facility] [id number]); Hypercellular marrow (90%) with relap sed acute myelogenous leukemia (60%); Blasts positive for CD117 and CD 33, negative for CD34 , CD71, CD61, CD3 and PAX-5. - remains FLT3 ITD by [employer] (very elevated allelic burden, full panel pending) I rounded today, 07/14/17, in conjunction with the Advanced Practice Provider. I saw the patient, reviewed the history and relevant studies and developed an assessment an d plan. Subjective/Objective: feeling pretty well. Happy that she was able to get outside yesterday . Still having some loose BMs but no cramping or abd pain. ROS otherwise negative Summary of day's events and plan: day 14 of arlette + cytarabine (plan for sorafenib but insura nce denied) - at jacquelin from chemo - LFTs elevated post-chemo but now improved - empiric zosyn for fevers -> remains afebrile - acyclovir and posa ppx - Gi side effects from chemo -> anticipate will improve next week - allow off floor to keep spirits up over weekend - cont to monitor closely at jacquelin Please see the Advanced Practice Provider documentation from today for the details regardin g the assessment and plan. Active Problems: Patients Hospital Problem List: Active Hospital Problems 1) COPD (chronic obstructive pulmonary disease) (HCC) 2) Anxiety and depression 3) Acute myeloid leukemia not having achieved remission (HCC) 4) Learning disability 5) Rash of face 6) Neutropenic fever (HCC) 7) Pancytopenia due to antineoplastic chemotherapy (HCC) 8) Transaminitis 9) Hepatosplenomegaly 10) Pleural effusion 11) Proctitis 12) Protein-calorie malnutrition, mild (HCC) 13) Immunocompromised state (HCC) 14) Chemotherapy induced diarrhea Ht 1.59 m (5' 2.6"), Wt 82.5 kg (181 lb 14.1 oz), BP 150/90, Pulse 105, Temperature 36.4 C (97.5 F), RR 18, SpO2 95%, BMI 32.63 kg/(m^2). Focused Exam: nad, op clear, cta b, rrr no m/r/g, soft abd with large ventral hernia, no ed penny Intake/Output Summary (Last 24 hours) at 07/14/17 1049 Last data filed at 07/14/17 1033 Gross per 24 hour Intake 3580 ml Output 4300 ml Net -720 ml Recent Labs 07/12/17 0104 07/12/17 2331 07/13/17 2330 NA 140 140 140 K 3.6 3.3* 3.2* CL 105 104 106 BICARB 28 27 28 BUN 8 7 6 CR 0.48* 0.48* 0.42* GLU 109* 82 82 CA 8.1* 8.3* 8.4* AST 20 22 22 ALT 64* 50 45 AP 219* 237* 240* TBILI 0.9 1.4* 1.2 TP 5.8* 5.5* 5.5* ALB 2.7* 2.6* 2.6* Recent Labs 07/01/17 2318 07/02/17 2336 07/04/17 0040 07/12/17 0104 07/12/17 2331 07/13/17 2330 WBC 17.35* < > 3.52 < > 0.55* < > <0.10* <0.10* <0.10* RBC 2.47* < > 2.09* < > 2.23* < > 2.77* 2.29* 2.60* HB 7.4* < > 6.4* < > 6.7* < > 8.1* 6.9* 7.7* HCT 22.8* < > 19.2* < > 19.9* < > 23.5* 19.8* 22.0* PLT 12* < > 16* < > 7* < > 5* 20* 11* NEUTROPERC 13.2* -- 25.7* -- 32.5* -- -- -- -- LYMPHPERC 6.1* -- 5.3* -- 5.0* -- -- -- -- MONOPERC 0.9* -- 0.9* -- 10.0* -- -- -- -- BASOPERC 0.0 -- [...] discussion of chemo, juan a e effects, eating, diarrhea, pain, and plan. Emily Galdamez PA-C - 07/13/2017 11:31 AM PDTFormatting of this note may be different from the original. Daily NICOLE Note - Chemotherapy Admit [facility] for Hematologic Malignancies Attending: Kay Duarte MD [facility] Physician: Pepe Chavis MD Local Oncologist: Daniel Patterson MD PCP: Saurav Small NP Date of Admission: 06/28/17 Hematologic Malignancy: AML ID: 51 yo woman with second relapse AML, FLT3 ITD admitted for evaluation and treatment. Hx COPD, Depression/PTSD, Disorder of Thyroid, HTN, Insomnia 24 Hour Events/Current Daily Plan: -Relapsed AML, Flt3: currently Arlette + modified Maurizio-C, currently day 13. Sorafenib insurance authorization/appeal rejected. Consider mylotarg for subsequent chemo cycles. Currently not a transplant candidate -Pancytopenia secondary to chemotherapy: standard transfusion parameters. One unit of PRBCs transfused today -Non-neutropenic fever: noted 06/29. Now afebrile and VSS. 06/29 CTA showed left pleural effusi on, atelectasis, no PE or consolidations. 06/29 CT AP showed uncomplicated proctitis, HSM with scattered areas of likely AML infiltration, extramedullary hematopoiesis or microabscesses Continue zosyn -Transaminitis with hyperbilirubinemia: likely secondary to Idarubicin and likely AML infil trates in liver responding to chemo. Monitor daily labs. Less likely due to posaconazole at this time, however, consider switching to micafungin if worsens -SWAPNIL: controlled. Scheduled zofran BID and antiemetics PRN. -GERD: controlled. Continue omeprazole and carafate -Mucositis/esophagitis: grade 2 with improved pain control. Continue special mouthwash PRN, oxycodone PRN, and carafate -Lytes: standard replacement protocol. Potassium replaced today Subjective: Continues to do well. Would like to go off the floor for a short time today and tomorrow. Mouth continues to improve. Objective: Last Vitals: BP 126/76 | Pulse 100 | Temp 36.5 C (97.7 F) | RR 15 | Ht 1.59 m (5' 2.6") | Wt 83.1 kg (183 lb 3.2 oz) | SpO2 96% | BMI 32.87 kg/(m^2) 24 Hour Vital Min/Max: Systolic (24hrs), Av , Min:106 , Max:134 Diastolic (24hrs), Av, Min:52, Max:79 Pulse Min: 88 Max: 100 Temp Min: 36.5 C (97.7 F) Max: 36.9 C (98.4 F) Resp Min: 15 Max: 18 SpO2 Min: 91 % Max: 99 % Intake/Output Summary (Last 24 hours) at 07/13/17 1131 Last data filed at 07/13/17 1102 Gross per 24 hour Intake 3490 ml Output 3200 ml Net 290 ml Physical Exam: General: This is a female in no acute distress. Lying in bed. HEENT: PERRL. Sclerae anicteric. Mucosa pink with scattered petechiae on hard palate of mouth. Rosacea Skin: No rash, lesions noted. Chest: Lungs clear to auscultation bilat. CV: RRR, no murmurs. Abdomen: S/NT/ND with NABS. No HSM appreciated. Extremities: Pulses strong and equal bilaterally. No c/c/BLE with petechiae & mild non pi tting edema. NeuroPsych: Alert and oriented x 3. Grossly nonfocal exam. CVC: RUE PICC site without inflammation or induration. C/D/I Laboratory Results: Recent Labs 07/10/17 23507/12/17 0104 07/12/17 2331 NA 136 140 140 K 3.2* 3.6 3.3* CL 101 105 104 BICARB 27 28 27 BUN 10 8 7 CR 0.54* 0.48* 0.48* GLU 119* 109* 82 CA 8.3* 8.1* 8.3* AST 23 20 22 ALT 81* 64* 50 AP 228* 219* 237* TBILI 1.7* 0.9 1.4* TP 5.7* 5.8* 5.5* ALB 2.7* 2.7* 2.6* Recent Labs 07/01/17 2318 07/02/17 2336 07/04/17 0040 07/10/17 2353 07/12/17 0104 07/12/17 2331 WBC 17.35* < > 3.52 < > 0.55* < > <0.10* <0.10* <0.10* RBC 2.47* < > 2.09* < > 2.23* < > 2.42* 2.77* 2.29* HB 7.4* < > 6.4* < > 6.7* < > 7.2* 8.1* 6.9* HCT 22.8* < > 19.2* < > 19.9* < > 20.7* 23.5* 19.8* PLT 12* < > 16* < > 7* < > 11* 5* 20* NEUTROPERC 13.2* -- 25.7* -- 32.5* -- -- -- -- LYMPHPERC 6.1* -- 5.3* -- 5.0* -- -- -- -- MONOPERC 0.9* -- 0.9* -- 10.0* -- -- -- -- BASOPERC 0.0 -- 0.0 -- 0.0 -- -- -- -- EOSPERC 0.0* -- 0.0* -- 0.0* -- -- -- -- < > = values in this interval not displayed. Meds: Reviewed on rounds, see current MAR for medication list SUMMARY OF PATIENT'S HOSPITALIZATION History of Present Illness: (from H&P) Rhea Hutchison is a 51-year-old woman with a history of COPD, depression, hypothyroidism, and AML diagnosed in late 2015 after she presented with pleuritic chest pain and shortness of br eath in addition to profound leukocytosis. Her disease was initially managed with 7+3+ Dasa tinib, course gated by neutropenic fevers, C. difficile, nodular groundglass opacities sudeep rning for invasive fungal infection (although galactomannan negative), treated with Isavucon azole -> Voriconazole. She was reinduced with Cytarabine and entered CR1. She subsequently relapsed in February 2017 started on FLAG-Arlette salvage-->CR2. Her course was subsequently c omplicated by bacterial pneumonia, otherwise recovered well Patient presents as a transfer from outside hospital ([facility]) where she pres ented with body aches and profound fatigue, anemic with new leukocytosis. Repeat bone marro w biopsy concerning for relapsed AML (blasts positive for CD 117, CD33). In the interim sin ce her initial admission, the patient endorses development of new new acute onset pleuritic left-sided chest pain. She states that this chest pain is stabbing, 5-6 out of 10 in intens ity. It is accompanied by a degree of resting dyspnea. Patient also endorses nagging cough productive of white/yellow sputum of approximately 1 week's duration. She denies constitut ional symptoms including fevers, chills, night sweats. She denies new palpitations. She de nies new oral lesions or odynophagia. She does endorse a degree of ongoing nausea but state s that that is baseline for her. She denies emesis. Endorses a degree of constipation. De nies deep new complaints. She does endorse a developing petechial rash over bilateral lo wer extremities, as well as her upper back. She denies new adenopathy. Hospitalization History: Hematology: #Relapsed Flt3 AML: Had salvage FLAG-Arlette + Midostaurin and Azacitidine bridge while awaitin g SCT now with relapse. Pertinent Diagnostics: -BM Bx 06/21/17 ([facility] [id number]): -Results: 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 myelogenous leukemia (60%); Blasts positive for CD117 and CD 33, negative for CD34, CD71, CD61, CD3 and PAX-5. -Cytogenetics: Normal -Genetrails: NPM1, DNMT3A, NRAS, TET2, FLT3 TKD mutations -06/30 peripheral blood flow and GeneTrails: -Flow: Recurrent acute myeloid leukemia (87% blasts) -GeneTrails not drawn Treatment -Chemotherapy regimen: Arlette + Maurizio-C, started 07/01/17 -Idarubicin 12 mg/m2 daily x 3 days -Cytarabine 1500 mg/m2 CI IV daily x 4 days. -Sorafenib authorization was denied -Chemo Day: 13 Patient is currently not a transplant candidate, but if it were to change, brother is a match #Pancytopenia secondary to chemotherapy: -See supportive care #Supportive Care: Growth factor: no growth factors required at this time Labs: Continue to check CBC daily Transfusion parameters: -Transfuse PRBCs for HCT <21% if asymptomatic -Transfuse PPH for platelet count <10,000 sooner PRN s/s bleeding. Cardiovascular: Prechemo TTE on 06/29/17 shows EF of 65-70% #Hx of Hypertension: continues on home anti-hypertensives -Amlodipine 10mg daily -Lisinopril 5mg daily Pulmonary: #COPD: continues on home inhalers -Spiriva 18mcg daily -Albuterol PRN GI: #Abdominal pain: multifactorial, likely secondary to constipation, uncomplicated proctitis, and HSM. 06/29 CT AP showed uncomplicated proctitis, hepatosplenomegaly, and stool in rectum -Continue bowel regimen senna BID; MOM, Miralax, and Lactulose PRN -Fentanyl IV and oxycodone PO PRN pain #Transaminitis with hyperbilirubinemia: likely secondary to idarubicin and likely AML infil trates in liver responding to chemo -Monitor daily labs -Consider switching to Marie if continues to increase #SWAPNIL, no emesis: controlled -Scheduled zofran BID -Compazine PRN -Antiemetics PRN #GERD: controlled -Omeprazole to 40mg daily -Carafate QID #Diarrhea, likely due to chemotherapy: resolved -Imodium PRN -Consider CDiff testing if worsens /Renal: #Overactive bladder: chronic issue -Oxybutynin CR 15mg daily Neuro/Psych: #Depression/Anxiety -Cymbalta 90mg daily -Lorazepam PRN anxiety Endocrine: #Hypothyroidism: -Synthroid 37.5mcg daily Infectious Disease: #Non-neutropenic fever, with septic picture 06/29 with tachycardia, tachypnea. Afebrile at th e time, however spiked a fever on 07/01. Localizing symptoms include pleuritic pain and abdomi nal pain. Bld cx NGTD. 06/29 CTA showed left pleural effusion and adjacent atelectasis, no PE or consolidations. 06/29 CT AP showed uncomplicated proctitis, HSM with scattered areas of li maria m AML infiltration, extramedullary hematopoiesis or microabscesses -Zosyn (06/29- ) #Prophylaxis: Bacterial: as above Fungal: reports using marijuana, risk for fungal infection. Started Posaconazole 07/04 after chemotherapy. Viral: acyclovir PCP: not indicated Fluid/Nutrition/Lytes: #Nutrition: Current diet -- Regular No Felisah's yogurt or Kefir. #Fluid: 1L IVF PRN for PO intake <2L/day #Lytes: -Continue to check chemistries daily -Replace per supportive care protocol. Disposition: TBD. Anticipate 4-6 week hospitalization. Emily Galdamez PA-C [facility] [id number] [facility] Mailcode: [facility] [place], [place] [id number] Kay Duarte MD - 07/13/2017 11:21 AM PDTFormatting of this note may be different from e original. 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 Was in CR2 and then relapsed. June 21, 2017 ([facility] [id number]); Hypercellular marrow (90%) with relap sed acute myelogenous leukemia (60%); Blasts positive for CD117 and CD 33, negative for CD34 , CD71, CD61, CD3 and PAX-5. - remains FLT3 ITD by [employer] (full panel pending) I rounded today in conjunction with the Advanced Practice Provider. I saw the patient, reviewed the history and relevant studies and developed an assessment an d plan. Subjective/Objective: Skin is flushed, red on face, no new complaints. Last Vitals: BP 126/76 | Pulse 100 | Temp 36.5 C (97.7 F) | RR 15 | Ht 1.59 m (5' 2.6") | Wt 83.1 kg (183 lb 3.2 oz) | SpO2 96% | BMI 32.87 kg/(m^2) 24 Hour Vital Min/Max: Systolic (24hrs), Av , Min:106 , Max:134 Diastolic (24hrs), Av, Min:52, Max:79 Pulse Min: 88 Max: 100 Temp Min: 36.5 C (97.7 F) Max: 36.9 C (98.4 F) Resp Min: 15 Max: 18 SpO2 Min: 91 % Max: 99 % Intake/Output Summary (Last 24 hours) at 07/13/17 1122 Last data filed at 07/13/17 1102 Gross per 24 hour Intake 3490 ml Output 3200 ml Net 290 ml Exam: Oropharynx clear, heart sounds regular, lungs clear, abdomen soft, non-tender,rest of exam non-focal. Labs reviewed and discussed I am actively managing the following: Patients Hospital Problem List: Active Hospital Problems 1) COPD (chronic obstructive pulmonary disease) (HCC) 2) Anxiety and depression 3) Acute myeloid leukemia not having achieved remission (HCC) 4) Learning disability 5) Rash of face 6) Neutropenic fever (HCC) 7) Pancytopenia due to antineoplastic chemotherapy (HCC) 8) Transaminitis 9) Hepatosplenomegaly 10) Pleural effusion 11) Proctitis 12) Protein-calorie malnutrition, mild (HCC) 13) Immunocompromised state (HCC) 14) Chemotherapy induced diarrhea 15) mucositis Plan for today - day 13 of arlette + cytarabine + sorefenib (sorafenib denied and appealed multiple times) Will add myelotarg as CD33+ with future cycles-not now as will significantly delay recover y NOT planning to pursue transplant but patient wants more information about it. Marrow on count recovery -continue current abx zosyn for proctitis/pain and fevers, remains afebrile -continue PPI, carafate for GERD -oral care for mucositis, prn oxy, magic mouthwash -supportive care -prophylactic antimicrobials: posa, acyclovir -transfusion- plt today -replete electrolytes-none today Please see the Advanced Practice Provider documentation from today for the details regardin g the assessment and plan. We reviewed management course in detail including goals of care and treatment expectations. [facility] [place] Emily Galdamez PA-C - 07/12/2017 1:23 PM PDTFormatting of this note may be different from the original. Daily NICOLE Note - Chemotherapy Admit Center for Hematologic Malignancies Attending: Kar Aggarwal MD [facility] Physician: Pepe Chavis MD Local Oncologist: Daniel Patterson MD PCP: Saurav Small NP Date of Admission: 06/28/17 Hematologic Malignancy: AML ID: 51 yo woman with second relapse AML, FLT3 ITD admitted for evaluation and treatment. Hx COPD, Depression/PTSD, Disorder of Thyroid, HTN, Insomnia 24 Hour Events/Current Daily Plan: -Relapsed AML, Flt3: currently Arlette + modified Maurizio-C, currently day 12. Sorafenib insurance authorization/appeal rejected. Consider mylotarg for subsequent chemo cycles. Currently not a transplant candidate -Pancytopenia secondary to chemotherapy: standard transfusion parameters. One unit of plate lets transfused today -Non-neutropenic fever: noted 3/3. Now afebrile and VSS. 3 CTA showed left pleural effusi on, atelectasis, no PE or consolidations. 3 CT AP showed uncomplicated proctitis, HSM with scattered areas of likely AML infiltration, extramedullary hematopoiesis or microabscesses Continue zosyn -Transaminitis with hyperbilirubinemia: likely secondary to Idarubicin and likely AML infil trates in liver responding to chemo. Monitor daily labs. Less likely due to posaconazole at this time, however, consider switching to micafungin if worsens -SWAPNIL: controlled. Scheduled zofran BID and antiemetics PRN. -GERD: controlled. Continue omeprazole and carafate -Mucositis/esophagitis: grade 2 with improved pain control. Continue special mouthwash PRN, oxycodone PRN, and carafate -Lytes: standard replacement protocol. No replacements today Subjective: States she is doing well today. Did have minimal nose bleeding after blowing he r nose last night. This morning had lightly blood tinged sputum when she coughed but that garcia s now resolved. Objective: Last Vitals: BP 114/67 | Pulse 95 | Temp 36.8 C (98.2 F) | RR 16 | Ht 1.59 m (5' 2.6") | Wt 82.9 kg (182 lb 12.2 oz) | SpO2 95% | BMI 32.79 kg/(m^2) 24 Hour Vital Min/Max: Systolic (24hrs), Av , Min:114 , Max:127 Diastolic (24hrs), Av, Min:59, Max:76 Pulse Min: 93 Max: 99 Temp Min: 36.7 C (98.1 F) Max: 37 C (98.6 F) Resp Min: 16 Max: 20 SpO2 Min: 88 % Max: 95 % Intake/Output Summary (Last 24 hours) at 07/12/17 1323 Last data filed at 07/12/17 1211 Gross per 24 hour Intake 3405 ml Output 1631 ml Net 1774 ml Physical Exam: General: This is a female in no acute distress. Lying in bed. HEENT: PERRL. Sclerae anicteric. Mucosa pink with ulceration left hard palate and erythe ma post oropharynx. Rosacea Skin: No rash, lesions noted. Chest: Lungs clear to auscultation bilat. CV: RRR, no murmurs. Abdomen: S/NT/ND with NABS. No HSM appreciated. Extremities: Pulses strong and equal bilaterally. No c/c/BLE with petechiae & mild non pi tting edema. NeuroPsych: Alert and oriented x 3. Grossly nonfocal exam. CVC: RUE PICC site without inflammation or induration. C/D/I Laboratory Results: Recent Labs 07/10/17 0012 07/10/17 2353 07/12/17 0104 NA 136 136 140 K 3.6 3.2* 3.6 CL 102 101 105 BICARB 26 27 28 BUN 7 10 8 CR 0.44* 0.54* 0.48* GLU 89 119* 109* CA 8.4* 8.3* 8.1* AST 34 23 20 ALT 103* 81* 64* AP 221* 228* 219* TBILI 1.8* 1.7* 0.9 TP 5.8* 5.7* 5.8* ALB 2.6* 2.7* 2.7* Recent Labs 07/01/17 2318 07/02/17 2336 07/04/17 0040 07/10/17 0012 07/10/17 2353 07/12/17 0104 WBC 17.35* < > 3.52 < > 0.55* < > <0.10* <0.10* <0.10* RBC 2.47* < > 2.09* < > 2.23* < > 2.73* 2.42* 2.77* HB 7.4* < > 6.4* < > 6.7* < > 8.1* 7.2* 8.1* HCT 22.8* < > 19.2* < > 19.9* < > 23.3* 20.7* 23.5* PLT 12* < > 16* < > 7* < > 23* 11* 5* NEUTROPERC 13.2* -- 25.7* -- 32.5* -- -- -- -- LYMPHPERC 6.1* -- 5.3* -- 5.0* -- -- -- -- MONOPERC 0.9* -- 0.9* -- 10.0* -- -- -- -- BASOPERC 0.0 -- 0.0 -- 0.0 -- -- -- -- EOSPERC 0.0* -- 0.0* -- 0.0* -- -- -- -- < > = values in this interval not displayed. Meds: Reviewed on rounds, see current MAR for medication list SUMMARY OF PATIENT'S HOSPITALIZATION History of Present Illness: (from H&P) Rhea Hutchison is a 51-year-old woman with a history of COPD, depression, hypothyroidism, and AML diagnosed in late 2015 after she presented with pleuritic chest pain and shortness of br eath in addition to profound leukocytosis. Her disease was initially managed with 7+3+ Dasa tinib, course gated by neutropenic fevers, C. difficile, nodular groundglass opacities sudeep rning for invasive fungal infection (although galactomannan negative), treated with Isavucon azole -> Voriconazole. She was reinduced with Cytarabine and entered CR1. She subsequently relapsed in February 2017 started on FLAG-Arlette salvage-->CR2. Her course was subsequently c omplicated by bacterial pneumonia, otherwise recovered well Patient presents as a transfer from outside hospital ([facility]) where she pres ented with body aches and profound fatigue, anemic with new leukocytosis. Repeat bone marro w biopsy concerning for relapsed AML (blasts positive for CD 117, CD33). In the interim sin ce her initial admission, the patient endorses development of new new acute onset pleuritic left-sided chest pain. She states that this chest pain is stabbing, 5-6 out of 10 in intens ity. It is accompanied by a degree of resting dyspnea. Patient also endorses nagging cough productive of white/yellow sputum of approximately 1 week's duration. She denies constitut ional symptoms including fevers, chills, night sweats. She denies new palpitations. She de nies new oral lesions or odynophagia. She does endorse a degree of ongoing nausea but state s that that is baseline for her. She denies emesis. Endorses a degree of constipation. De nies deep new complaints. She does endorse a developing petechial rash over bilateral lo wer extremities, as well as her upper back. She denies new adenopathy. Hospitalization History: Hematology: #Relapsed Flt3 AML: Had salvage FLAG-Arlette + Midostaurin and Azacitidine bridge while awaitin g SCT now with relapse. Pertinent Diagnostics: -BM Bx 06/21/17 ([facility] [id number]): -Results: 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 myelogenous leukemia (60%); Blasts positive for CD117 and CD 33, negative for CD34, CD71, CD61, CD3 and PAX-5. -Cytogenetics: Normal -Genetrails: NPM1, DNMT3A, NRAS, TET2, FLT3 TKD mutations -06/30 peripheral blood flow and GeneTrails: -Flow: Recurrent acute myeloid leukemia (87% blasts) -GeneTrails not drawn Treatment -Chemotherapy regimen: Arlette + Maurizio-C, started 07/01/17 -Idarubicin 12 mg/m2 daily x 3 days -Cytarabine 1500 mg/m2 CI IV daily x 4 days. -Sorafenib authorization was denied -Chemo Day: 12 Patient is currently not a transplant candidate, but if it were to change, brother is a match #Pancytopenia secondary to chemotherapy: -See supportive care #Supportive Care: Growth factor: no growth factors required at this time Labs: Continue to check CBC daily Transfusion parameters: -Transfuse PRBCs for HCT <21% if asymptomatic -Transfuse PPH for platelet count <10,000 sooner PRN s/s bleeding. Cardiovascular: Prechemo TTE on 06/29/17 shows EF of 65-70% #Hx of Hypertension: continues on home anti-hypertensives -Amlodipine 10mg daily -Lisinopril 5mg daily Pulmonary: #COPD: continues on home inhalers -Spiriva 18mcg daily -Albuterol PRN GI: #Abdominal pain: multifactorial, likely secondary to constipation, uncomplicated proctitis, and HSM. 06/29 CT AP showed uncomplicated proctitis, hepatosplenomegaly, and stool in rectum -Continue bowel regimen senna BID; MOM, Miralax, and Lactulose PRN -Fentanyl IV and oxycodone PO PRN pain #Transaminitis with hyperbilirubinemia: likely secondary to idarubicin and likely AML infil trates in liver responding to chemo -Monitor daily labs -Consider switching to Marie if continues to increase #SWAPNIL, no emesis: controlled -Scheduled zofran BID -Compazine PRN -Antiemetics PRN #GERD: controlled -Omeprazole to 40mg daily -Carafate QID #Diarrhea, likely due to chemotherapy: resolved -Imodium PRN -Consider CDiff testing if worsens /Renal: #Overactive bladder: chronic issue -Oxybutynin CR 15mg daily Neuro/Psych: #Depression/Anxiety -Cymbalta 90mg daily -Lorazepam PRN anxiety Endocrine: #Hypothyroidism: -Synthroid 37.5mcg daily Infectious Disease: #Non-neutropenic fever, with septic picture 06/29 with tachycardia, tachypnea. Afebrile at th e time, however spiked a fever on 07/01. Localizing symptoms include pleuritic pain and abdomi nal pain. Bld cx NGTD. 06/29 CTA showed left pleural effusion and adjacent atelectasis, no PE or consolidations. 06/29 CT AP showed uncomplicated proctitis, HSM with scattered areas of li maria m AML infiltration, extramedullary hematopoiesis or microabscesses -Zosyn (06/29- ) #Prophylaxis: Bacterial: as above Fungal: reports using marijuana, risk for fungal infection. Started Posaconazole 07/04 after chemotherapy. Viral: acyclovir PCP: not indicated Fluid/Nutrition/Lytes: #Nutrition: Current diet -- Regular No Felisha's yogurt or Kefir. #Fluid: 1L IVF PRN for PO intake <2L/day #Lytes: -Continue to check chemistries daily -Replace per supportive care protocol. Disposition: TBD. Anticipate 4-6 week hospitalization. Emily Galdamez PA-C [address] [facility] Mailcode: [email or web address] [place] [address] Kar Aggarwal MD - 07/12/2017 11:00 AM PDTFormatting of this note may be different fro m the original. 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 Was in CR2 and then relapsed. June 21, 2017 ([facility] [id number]); Hypercellular marrow (90%) with relap sed acute myelogenous leukemia (60%); Blasts positive for CD117 and CD 33, negative for CD34 , CD71, CD61, CD3 and PAX-5. - remains FLT3 ITD by [employer] (full panel pending) I rounded today in conjunction with the Advanced Practice Provider. I saw the patient, reviewed the history and relevant studies and developed an assessment an d plan. Subjective/Objective: no new complaints. Scant blood tinged sputum Last Vitals: BP 123/62 | Pulse 96 | Temp 36.7 C (98.1 F) | RR 16 | Ht 1.59 m (5' 2.6") | Wt 82.9 kg (182 lb 12.2 oz) | SpO2 91% | BMI 32.79 kg/(m^2) 24 Hour Vital Min/Max: Systolic (24hrs), Av , Min:115 , Max:127 Diastolic (24hrs), Av, Min:59, Max:76 Pulse Min: 93 Max: 99 Temp Min: 36.7 C (98.1 F) Max: 37 C (98.6 F) Resp Min: 16 Max: 20 SpO2 Min: 88 % Max: 95 % Intake/Output Summary (Last 24 hours) at 07/12/17 1100 Last data filed at 07/12/17 1000 Gross per 24 hour Intake 2405 ml Output 1581 ml Net 824 ml Looks good tday Exam per nicole Labs reviewed I am actively managing the following: Patients Hospital Problem List: Active Hospital Problems 1) COPD (chronic obstructive pulmonary disease) (HCC) 2) Anxiety and depression 3) Acute myeloid leukemia not having achieved remission (HCC) 4) Learning disability 5) Rash of face 6) Neutropenic fever (HCC) 7) Pancytopenia due to antineoplastic chemotherapy (HCC) 8) Transaminitis 9) Hepatosplenomegaly 10) Pleural effusion 11) Proctitis 12) Protein-calorie malnutrition, mild (HCC) 13) Immunocompromised state (HCC) 14) Chemotherapy induced diarrhea 15) mucositis Plan for today - day 12 of arlette + cytarabine + sorefenib (sorafenib denied and appealed multiple times) Will add myelotarg as CD33+ with future cycles-not now as will significantly delay recover y NOT planning to pursue transplant Marrow on count recovery -continue current abx zosyn for proctitis/pain and fevers, remains afebrile -continue PPI, carafate for GERD -oral care for mucositis, prn oxy, magic mouthwash -supportive care -prophylactic antimicrobials: posa, acyclovir -transfusion- plt today -replete electrolytes-none today Please see the Advanced Practice Provider documentation from today for the details regardin g the assessment and plan. We reviewed management course in detail including goals of care and treatment expectations. KAR AGGARWAL MD hydraulic technician [facility] Center for Hematologic Malignancies [facility] [place] [email or web address] [phone] Galdamez PA-C - 07/11/2017 12:55 PM PDTFormatting of this note may be different from the original. Daily NICOLE Note - Chemotherapy Admit Center for Hematologic Malignancies Attending: Kar Aggarwal MD [facility] Physician: Pepe Chavis MD Local Oncologist: Daniel Patterson MD PCP: Saurav Small NP Date of Admission: 06/28/17 Hematologic Malignancy: AML ID: 51 yo woman with second relapse AML, FLT3 ITD admitted for evaluation and treatment. Hx COPD, Depression/PTSD, Disorder of Thyroid, HTN, Insomnia 24 Hour Events/Current Daily Plan: -Relapsed AML, Flt3: currently Arlette + modified Maurizio-C, currently day 11. Sorafenib insurance authorization/appeal rejected. Consider mylotarg for subsequent chemo cycles. Currently not a transplant candidate -Pancytopenia secondary to chemotherapy: standard transfusion parameters. One unit of PRBCs transfused today -Non-neutropenic fever: noted 06/29. Now afebrile and VSS. 06/29 CTA showed left pleural effusi on, atelectasis, no PE or consolidations. 06/29 CT AP showed uncomplicated proctitis, HSM with scattered areas of likely AML infiltration, extramedullary hematopoiesis or microabscesses Continue zosyn -Transaminitis with hyperbilirubinemia: likely secondary to Idarubicin and likely AML infil trates in liver responding to chemo. Monitor daily labs. Less likely due to posaconazole at this time, however, consider switching to micafungin if worsens -SWAPNIL: controlled. Scheduled zofran BID and antiemetics PRN. -GERD: controlled. Continue omeprazole and carafate -Mucositis/esophagitis: grade 2 with improved pain control. Continue special mouthwash PRN, oxycodone PRN, and carafate -Lytes: standard replacement protocol. Potassium replaced today Subjective: Tearful during rounds. States she is scared and upset with her AML relapsing. Objective: Last Vitals: BP 126/75 | Pulse 103 | Temp 36.5 C (97.7 F) | RR 18 | Ht 1.59 m (5' 2.6") | Wt 82.9 kg (182 lb 12.2 oz) | SpO2 95% | BMI 32.79 kg/(m^2) 24 Hour Vital Min/Max: Systolic (24hrs), Av , Min:99 , Max:140 Diastolic (24hrs), Av, Min:61, Max:110 Pulse Min: 96 Max: 110 Temp Min: 36.5 C (97.7 F) Max: 36.9 C (98.4 F) Resp Min: 18 Max: 18 SpO2 Min: 90 % Max: 95 % Intake/Output Summary (Last 24 hours) at 07/11/17 1255 Last data filed at 07/11/17 1000 Gross per 24 hour Intake 2405 ml Output 2080 ml Net 325 ml Physical Exam: General: This is a female in no acute distress. Lying in bed. HEENT: PERRL. Sclerae anicteric. Mucosa pink with ulceration left hard palate and erythe ma post oropharynx. Rosacea. Skin: No rash, lesions noted. Chest: Lungs clear to auscultation bilat. CV: RRR, no murmurs. Abdomen: S/NT/ND with NABS. No HSM appreciated. Extremities: Pulses strong and equal bilaterally. No c/c/BLE with petechiae & mild non pi tting edema. NeuroPsych: Alert and oriented x 3. Grossly nonfocal exam. CVC: RUE PICC site without inflammation or induration. C/D/I Laboratory Results: Recent Labs 07/09/17 0120 07/10/17 0012 07/10/17 2353 NA 136 136 136 K 3.4 3.6 3.2* CL 102 102 101 BICARB 25 26 27 BUN 7 7 10 CR 0.36* 0.44* 0.54* GLU 102* 89 119* CA 8.0* 8.4* 8.3* AST 34 34 23 ALT 122* 103* 81* AP 165* 221* 228* TBILI 1.0 1.8* 1.7* TP 5.6* 5.8* 5.7* ALB 2.5* 2.6* 2.7* Recent Labs 07/01/17 2318 07/02/17 2336 07/04/17 0040 07/09/17 0120 07/10/17 0012 07/10/17 2353 WBC 17.35* < > 3.52 < > 0.55* < > <0.10* <0.10* <0.10* RBC 2.47* < > 2.09* < > 2.23* < > 2.46* 2.73* 2.42* HB 7.4* < > 6.4* < > 6.7* < > 7.3* 8.1* 7.2* HCT 22.8* < > 19.2* < > 19.9* < > 20.8* 23.3* 20.7* PLT 12* < > 16* < > 7* < > 8* 23* 11* NEUTROPERC 13.2* -- 25.7* -- 32.5* -- -- -- -- LYMPHPERC 6.1* -- 5.3* -- 5.0* -- -- -- -- MONOPERC 0.9* -- 0.9* -- 10.0* -- -- -- -- BASOPERC 0.0 -- 0.0 -- 0.0 -- -- -- -- EOSPERC 0.0* -- 0.0* -- 0.0* -- -- -- -- < > = values in this interval not displayed. Meds: Reviewed on rounds, see current MAR for medication list SUMMARY OF PATIENT'S HOSPITALIZATION History of Present Illness: (from H&P) Rhea Hutchison is a 51-year-old woman with a history of COPD, depression, hypothyroidism, and AML diagnosed in late 2015 after she presented with pleuritic chest pain and shortness of br eath in addition to profound leukocytosis. Her disease was initially managed with 7+3+ Dasa tinib, course gated by neutropenic fevers, C. difficile, nodular groundglass opacities sudeep rning for invasive fungal infection (although galactomannan negative), treated with Isavucon azole -> Voriconazole. She was reinduced with Cytarabine and entered CR1. She subsequently relapsed in February 2017 started on FLAG-Arlette salvage-->CR2. Her course was subsequently c omplicated by bacterial pneumonia, otherwise recovered well Patient presents as a transfer from outside hospital ([facility]) where she pres ented with body aches and profound fatigue, anemic with new leukocytosis. Repeat bone marro w biopsy concerning for relapsed AML (blasts positive for CD 117, CD33). In the interim sin ce her initial admission, the patient endorses development of new new acute onset pleuritic left-sided chest pain. She states that this chest pain is stabbing, 5-6 out of 10 in intens ity. It is accompanied by a degree of resting dyspnea. Patient also endorses nagging cough productive of white/yellow sputum of approximately 1 week's duration. She denies constitut ional symptoms including fevers, chills, night sweats. She denies new palpitations. She de nies new oral lesions or odynophagia. She does endorse a degree of ongoing nausea but state s that that is baseline for her. She denies emesis. Endorses a degree of constipation. De nies deep new complaints. She does endorse a developing petechial rash over bilateral lo wer extremities, as well as her upper back. She denies new adenopathy. Hospitalization History: Hematology: #Relapsed Flt3 AML: Had salvage FLAG-Arlette + Midostaurin and Azacitidine bridge while awaitin g SCT now with relapse. Pertinent Diagnostics: -BM Bx 06/21/17 ([facility] [id number]): -Results: 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 myelogenous leukemia (60%); Blasts positive for CD117 and CD 33, negative for CD34, CD71, CD61, CD3 and PAX-5. -Cytogenetics: Normal -Genetrails: NPM1, DNMT3A, NRAS, TET2, FLT3 TKD mutations -/ peripheral blood flow and GeneTrails: -Flow: Recurrent acute myeloid leukemia (87% blasts) -GeneTrails not drawn Treatment -Chemotherapy regimen: Arlette + Maurizio-C, started 07/01/17 -Idarubicin 12 mg/m2 daily x 3 days -Cytarabine 1500 mg/m2 CI IV daily x 4 days. -Sorafenib authorization was denied -Chemo Day: 11 Patient is currently not a transplant candidate, but if it were to change, brother is a match #Pancytopenia secondary to chemotherapy: -See supportive care #Supportive Care: Growth factor: no growth factors required at this time Labs: Continue to check CBC daily Transfusion parameters: -Transfuse PRBCs for HCT <21% if asymptomatic -Transfuse PPH for platelet count <10,000 sooner PRN s/s bleeding. Cardiovascular: Prechemo TTE on 06/29/17 shows EF of 65-70% #Hx of Hypertension: continues on home anti-hypertensives -Amlodipine 10mg daily -Lisinopril 5mg daily Pulmonary: #COPD: continues on home inhalers -Spiriva 18mcg daily -Albuterol PRN GI: #Abdominal pain: multifactorial, likely secondary to constipation, uncomplicated proctitis, and HSM. 06/29 CT AP showed uncomplicated proctitis, hepatosplenomegaly, and stool in rectum -Continue bowel regimen senna BID; MOM, Miralax, and Lactulose PRN -Fentanyl IV and oxycodone PO PRN pain #Transaminitis with hyperbilirubinemia: likely secondary to idarubicin and likely AML infil trates in liver responding to chemo -Monitor daily labs -Consider switching to Marie if continues to increase #SWAPNIL, no emesis: controlled -Scheduled zofran BID -Compazine PRN -Antiemetics PRN #GERD: controlled -Omeprazole to 40mg daily -Carafate QID #Diarrhea, likely due to chemotherapy: resolved -Imodium PRN -Consider CDiff testing if worsens /Renal: #Overactive bladder: chronic issue -Oxybutynin CR 15mg daily Neuro/Psych: #Depression/Anxiety -Cymbalta 90mg daily -Lorazepam PRN anxiety Endocrine: #Hypothyroidism: -Synthroid 37.5 mcg daily Infectious Disease: #Non-neutropenic fever, with septic picture 06/29 with tachycardia, tachypnea. Afebrile at th e time, however spiked a fever on 07/01. Localizing symptoms include pleuritic pain and abdomi nal pain. Bld cx NGTD. 06/29 CTA showed left pleural effusion and adjacent atelectasis, no PE or consolidations. 06/29 CT AP showed uncomplicated proctitis, HSM with scattered areas of li maria m AML infiltration, extramedullary hematopoiesis or microabscesses -Zosyn (06/29- ) #Prophylaxis: Bacterial: as above Fungal: reports using marijuana, risk for fungal infection. Started Posaconazole 07/04 after chemotherapy. Viral: acyclovir PCP: not indicated Fluid/Nutrition/Lytes: #Nutrition: Current diet -- Regular No Felisha's yogurt or Kefir. #Fluid: 1L IVF PRN for PO intake <2L/day #Lytes: -Continue to check chemistries daily -Replace per supportive care protocol. Disposition: TBD. Anticipate 4-6 week hospitalization. Emily Galdamez PA-C [facility] [id number] [facility] Mailcode: [email or web address] [place] [address] Kar Aggarwal MD - 07/11/2017 10:55 AM PDTFormatting of this note may be different fro m the original. 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 Was in CR2 and then relapsed. June 21, 2017 ([facility] [id number]); Hypercellular marrow (90%) with relap sed acute myelogenous leukemia (60%); Blasts positive for CD117 and CD 33, negative for CD34 , CD71, CD61, CD3 and PAX-5. - remains FLT3 ITD by [employer] (full panel pending) I rounded today in conjunction with the Advanced Practice Provider. I saw the patient, reviewed the history and relevant studies and developed an assessment an d plan. Subjective/Objective: doing well. Did use oxy 4 times for throat pain. Tearful today. Nausea and diarrhea improving. Last Vitals: BP 126/75 | Pulse 103 | Temp 36.5 C (97.7 F) | RR 18 | Ht 1.59 m (5' 2.6") | Wt 82.9 kg (182 lb 12.2 oz) | SpO2 95% | BMI 32.79 kg/(m^2) 24 Hour Vital Min/Max: Systolic (24hrs), Av , Min:99 , Max:140 Diastolic (24hrs), Av, Min:61, Max:110 Pulse Min: 96 Max: 110 Temp Min: 36.2 C (97.2 F) Max: 36.9 C (98.4 F) Resp Min: 18 Max: 18 SpO2 Min: 90 % Max: 96 % Intake/Output Summary (Last 24 hours) at 07/11/17 1055 Last data filed at 07/11/17 1000 Gross per 24 hour Intake 2880 ml Output 2180 ml Net 700 ml Nad, interactive rr Exam stable per nicole Labs reviewed I am actively managing the following: Patients Hospital Problem List: Active Hospital Problems 1) COPD (chronic obstructive pulmonary disease) (HCC) 2) Anxiety and depression 3) Acute myeloid leukemia not having achieved remission (HCC) 4) Learning disability 5) Rash of face 6) Neutropenic fever (HCC) 7) Pancytopenia due to antineoplastic chemotherapy (HCC) 8) Transaminitis 9) Hepatosplenomegaly 10) Pleural effusion 11) Proctitis 12) Protein-calorie malnutrition, mild (HCC) 13) Immunocompromised state (HCC) 14) Chemotherapy induced diarrhea 15) mucositis Plan for today - day 11 of arlette + cytarabine + sorefenib (sorafenib denied and appealed multiple times) Will add myelotarg as CD33+ with future cycles-not now as will significantly delay recover y -continue current abx--> zosyn for proctitis/pain and fevers, remains afebrile -continue PPI, carafate for GERD -oral care for mucositis, prn oxy, magic mouthwash -supportive care -schedule immodium -social support -prophylactic antimicrobials: posa, acyclovir -transfusion- prbcs today -replete electrolytes-potassium Please see the Advanced Practice Provider documentation from today for the details regardin g the assessment and plan. We reviewed management course in detail including goals of care and treatment expectations. KAR AGGARWAL MD hydraulic technician [facility] Center for Hematologic Malignancies [facility] [place] [email or web address] [phone], [email or web address] - 07/10/2017 4:25 PM PDTFormatting of this note may be di fferent from the original. Daily NICOLE Note - Chemotherapy Admit Center for Hematologic Malignancies Attending: Kar Aggarwal MD [facility] Physician: Pepe Chavis MD Local Oncologist: Daniel Patterson MD PCP: Saurav Small NP Date of Admission: 06/28/17 Hematologic Malignancy: AML ID: 51 yo woman with second relapse AML, FLT3 ITD admitted for eval & treatment. HX COPD, D epression/PTSD, Disorder of Thyroid, HTN, Insomnia 24 Hour Events/Current Daily Plan: -Relapsed AML, Flt3: Currently Arlette + modified Maurizio-C, currently day 10. Sorafenib Rx insura nce authorization/appeal rejected. Consider Mylotarg on Day 8 if Sorafenib not available. Cu rrently not a transplant candidate. -Pancytopenia: 2/2 disease. Standard transfusion parameters. None today. -Non-neutropenic fever:, with septic picture 3/: Now afebrile and VSS. Localizing sx inclu de pleuritic pain & abdominal pain. CTA 3/3 found left pleural effusion, atelectasis, no PE or consolidations and CT abd/pelvis 3/3 uncomplicated proctitis, HSM with scattered areas of likely AML infiltration, extramedullary hematopoiesis or microabscesses. Continues on Zosyn . -Transaminitis with hyperbilirubinemia: Likely 2/2 Idarubicin & likely AML infiltrates in l iver responding to chemo. Monitor daily labs. Less likely 2/2 Posa at this time, however, co nsider switching to Marie if worsens. -SWAPNIL: Controlled. Scheduled zofran BID and antiemetics PRN. -GERD; Controlled. Continue omeprazole and carafate. -Mucositis/esophagitis; grade 2 with improved pain control. Continue special mouthwash PRN, Oxycodone PRN and carafate -Diarrhea, likely d/t chemotherapy: RESOLVED. Continue Imodium ATC and PRN. Consider CDiff testing if worsens. -Lytes; standard repletions Subjective: Feeling well today. Less loose stool and nausea. Objective: Last Vitals: BP 121/84 | Pulse 101 | Temp 36.2 C (97.2 F) | RR 18 | Ht 1.59 m (5' 2.6") | Wt 84.2 kg (185 lb 10 oz) | SpO2 96% | BMI 33.31 kg/(m^2) 24 Hour Vital Min/Max: Systolic (24hrs), Av , Min:110 , Max:140 Diastolic (24hrs), Av, Min:62, Max:86 Pulse Min: 90 Max: 118 Temp Min: 36.2 C (97.2 F) Max: 37 C (98.6 F) Resp Min: 18 Max: 18 SpO2 Min: 90 % Max: 96 % Intake/Output Summary (Last 24 hours) at 07/10/17 1625 Last data filed at 07/10/17 1600 Gross per 24 hour Intake 2520 ml Output 1755 ml Net 765 ml Physical Exam: General: This is a female in no acute distress. Lying in bed. HEENT: PERRL. Sclerae anicteric. Mucosa pink with ulceration left hard palate and erythe ma post oropharynx. Rosacea. Skin: No rash, lesions noted. Chest: Lungs clear to auscultation bilat. CV: RRR, no murmurs. Abdomen: S/NT/ND with NABS. No HSM appreciated. Extremities: Pulses strong and equal bilaterally. No c/c/BLE with petechiae & mild non pi tting edema. NeuroPsych: Alert and oriented x 3. Grossly nonfocal exam. CVC: RUE PICC site without inflammation or induration. C/D/I Laboratory Results: Recent Labs 07/08/17 0119 07/08/17 1432 07/09/17 0120 07/10/17 0012 NA 137 -- -- 136 136 K 3.4 -- -- 3.4 3.6 CL 102 -- -- 102 102 BICARB 26 -- -- 25 26 BUN 7 -- -- 7 7 CR 0.44* -- -- 0.36* 0.44* GLU 99 < > 112* 102* 89 CA 8.0* -- -- 8.0* 8.4* AST 58* -- -- 34 34 ALT 164* -- -- 122* 103* AP 151* -- -- 165* 221* TBILI 1.2 -- -- 1.0 1.8* TP 5.4* -- -- 5.6* 5.8* ALB 2.7* -- -- 2.5* 2.6* < > = values in this interval not displayed. Recent Labs 07/01/17 2318 07/02/17 2336 07/04/17 0040 07/08/17 0117 07/09/17 0120 07/10/17 0012 WBC 17.35* < > 3.52 < > 0.55* < > <0.10* <0.10* <0.10* RBC 2.47* < > 2.09* < > 2.23* < > 2.71* 2.46* 2.73* HB 7.4* < > 6.4* < > 6.7* < > 8.1* 7.3* 8.1* HCT 22.8* < > 19.2* < > 19.9* < > 22.8* 20.8* 23.3* PLT 12* < > 16* < > 7* < > 9* 8* 23* NEUTROPERC 13.2* -- 25.7* -- 32.5* -- -- -- -- LYMPHPERC 6.1* -- 5.3* -- 5.0* -- -- -- -- MONOPERC 0.9* -- 0.9* -- 10.0* -- -- -- -- BASOPERC 0.0 -- 0.0 -- 0.0 -- -- -- -- EOSPERC 0.0* -- 0.0* -- 0.0* -- -- -- -- < > = values in this interval not displayed. Meds: Reviewed on rounds, see current MAR for medication list SUMMARY OF PATIENT'S HOSPITALIZATION History of Present Illness: (from H&P) Rhea Hutchison is a 51-year-old woman with a history of COPD, depression, hypothyroidism, and AML diagnosed in late 2015 after she presented with pleuritic chest pain and shortness of br eath in addition to profound leukocytosis. Her disease was initially managed with 7+3+ Dasa tinib, course gated by neutropenic fevers, C. difficile, nodular groundglass opacities sudeep rning for invasive fungal infection (although galactomannan negative), treated with Isavucon azole -> Voriconazole. She was reinduced with Cytarabine and entered CR1. She subsequently relapsed in February 2017 started on FLAG-Arlette salvage-->CR2. Her course was subsequently c omplicated by bacterial pneumonia, otherwise recovered well Patient presents as a transfer from outside hospital ([facility]) where she pres ented with body aches and profound fatigue, anemic with new leukocytosis. Repeat bone marro w biopsy concerning for relapsed AML (blasts positive for CD 117, CD33). In the interim sin ce her initial admission, the patient endorses development of new new acute onset pleuritic left-sided chest pain. She states that this chest pain is stabbing, 5-6 out of 10 in intens ity. It is accompanied by a degree of resting dyspnea. Patient also endorses nagging cough productive of white/yellow sputum of approximately 1 week's duration. She denies constitut ional symptoms including fevers, chills, night sweats. She denies new palpitations. She de nies new oral lesions or odynophagia. She does endorse a degree of ongoing nausea but state s that that is baseline for her. She denies emesis. Endorses a degree of constipation. De nies deep new complaints. She does endorse a developing petechial rash over bilateral lo wer extremities, as well as her upper back. She denies new adenopathy. Hospitalization History: Hematology: #Relapsed Flt3 AML: Had salvage FLAG-Arlette + Midostaurin and Azacitidine bridge while awaitin g SCT now with relapse. Pertinent Diagnostics: -BM Bx 06/21/17 ([facility] [id number]): -Results: 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 myelogenous leukemia (60%); Blasts positive for CD117 and CD 33, negative for CD34, CD71, CD61, CD3 and PAX-5. -Cytogenetics: Normal -Genetrails: NPM1, DNMT3A, NRAS, TET2, FLT3 TKD mutations -PB flow and GeneTrails 06/30/17: -Flow: Recurrent acute myeloid leukemia (87% blasts) -GeneTrails: PENDING Treatment -Chemotherapy regimen: Arlette + Maurizio-C + Sorafenib, started 07/01/17 -Idarubicin 12 mg/m2 daily x 3 days -Cytarabine 1500 mg/m2 CI IV daily x 4 days. -Sorafenib 400 mg daily (sent to [employer] awaiting auth) -Chemo Day: 10 Patient is a candidate for transplant based on Dx and prognostic feature. Brother is a m atch. #Pancytopenia r/t disease and chemotherapy: -See supportive care #Supportive Care: Growth factor: no growth factors required at this time Labs: Continue to check CBC daily Transfusion parameters: -Transfuse PRBCs for HCT <21% if asymptomatic -Transfuse PPH for platelet count <10,000 sooner PRN s/s bleeding. Cardiovascular: Prechemo TTE on 06/29/17 shows EF of 65-70% #Hx of Hypertension: continues on home anti-hypertensives -Amlodipine 10 mg daily -Lisinopril 5 mg daily Pulmonary: #COPD: continues on home inhalers -Spiriva 18 mcg daily -Albuterol PRN GI: #Abdominal pain: multifactorial, likely 2/2 constipation, uncomplicated proctitis & HSM. Pt c/o pain across abdomen including bilateral flank pain L>R. CT abd/pelvis 06/29 - uncomplica sharon proctitis, hepatosplenomegaly and stool in rectum. -Continue bowel regimen Senna BID; MOM, Miralax, and Lactulose PRN -Fentanyl IV, Oxycodone PO prn pain #Transaminitis with hyperbilirubinemia: Likely 2/2 Idarubicin & likely AML infiltrates in l iver responding to chemo. -Monitor daily labs. -Consider switching to Marie if continues to increase #SWAPNIL, no emesis: CONTROLLED -Scheduled zofran BID -Compazine PRN -Antiemetics PRN #GERD: Controlled -Increased omeprazole to 40mg daily -Trial carafate QID #Diarrhea, likely d/t chemotherapy: RESOLVED -Imodium PRN. -Consider CDiff testing if worsens. /Renal: #Overactive Bladder, chronic issue -Oxybutynin CR 15 mg daily Neuro/Psych: #Depression/Anxiety -Cymbalta 90 mg daily -Lorazepam PRN anxiety Endocrine: #Hypothyroidism: -Synthroid 37.5 mcg daily Infectious Disease: #Non-neutropenic fever, with septic picture 06/29 with tachycardia, tachypnea. Afebrile at th e time, however spiked a fever on 07/01. Localizing sx include pleuritic pain & abdominal alec n. Bld cx NGTD. CTA 06/29 shows left pleural effusion and adjacent atelectasis, no PE or cons olidations. CT abd/pelvis 06/29 shows uncomplicated proctitis, HSM with scattered areas of lik shukri AML infiltration, extramedullary hematopoiesis or microabscesses. -Zosyn (06/29- ) #Prophylaxis: Bacterial: As above Fungal: Reports using marijuana, risk for fungal infection. Started Posaconazole 07/04 after chemotherapy. Viral: Acyclovir PCP: Not indicated Fluid/Nutrition/Lytes: #Nutrition: Current diet -- Regular No Felisha's yogurt or Kefir. #Fluid: 1L IVF PRN for PO intake <2L/day #Lytes: -Continue to check chemistries daily -Replace per supportive care protocol. Disposition: TBD. Anticipate 4-6 week hospitalization. Malena Foster, VESTA KIDD [facility] 14K [id number] [facility] Mailcode: [facility] [place] [address] Kar Aggarwal MD - 07/10/2017 11:19 AM PDTFormatting of this note may be different fro m the original. 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 Was in CR2 and then relapsed. June 21, 2017 ([facility] [id number]); Hypercellular marrow (90%) with relap sed acute myelogenous leukemia (60%); Blasts positive for CD117 and CD 33, negative for CD34 , CD71, CD61, CD3 and PAX-5. - remains FLT3 ITD by [employer] (full panel pending) I rounded today in conjunction with the Advanced Practice Provider. I saw the patient, reviewed the history and relevant studies and developed an assessment an d plan. Subjective/Objective: afebrile. Doing well. Walking the halls. Mucositis/throat pain stable -controlled with oxycodone. Tolerating po. Nausea and diarrhea improving. Last Vitals: BP 140/86 | Pulse 118 | Temp 36.3 C (97.3 F) | RR 18 | Ht 1.59 m (5' 2.6") | Wt 84.2 kg (185 lb 10 oz) | SpO2 95% | BMI 33.31 kg/(m^2) 24 Hour Vital Min/Max: Systolic (24hrs), Av , Min:110 , Max:140 Diastolic (24hrs), Av, Min:62, Max:86 Pulse Min: 90 Max: 118 Temp Min: 36.3 C (97.3 F) Max: 37 C (98.6 F) Resp Min: 18 Max: 18 SpO2 Min: 90 % Max: 95 % Intake/Output Summary (Last 24 hours) at 07/10/17 1119 Last data filed at 07/10/17 0954 Gross per 24 hour Intake 2330 ml Output 1355 ml Net 975 ml Nad, interactive rr Exam stable per nicole Labs reviewed Counts at jacquelin, plt 23 Bili 1.8 I am actively managing the following: Patients Hospital Problem List: Active Hospital Problems 1) COPD (chronic obstructive pulmonary disease) (HCC) 2) Anxiety and depression 3) Acute myeloid leukemia not having achieved remission (HCC) 4) Learning disability 5) Rash of face 6) Neutropenic fever (HCC) 7) Pancytopenia due to antineoplastic chemotherapy (HCC) 8) Transaminitis 9) Hepatosplenomegaly 10) Pleural effusion 11) Proctitis 12) Protein-calorie malnutrition, mild (HCC) 13) Immunocompromised state (HCC) 14) Chemotherapy induced diarrhea 15) mucositis Plan for today - day 10 of arlette + cytarabine + sorefenib (sorafenib denied and appealed by pharmacy, ben sousa for answer) awaiting sorafenib again-Formal appeal again yesterday-awaiting feedback If unable to obtain, will pursue myelotarg as CD33+ Discuss transplant at team meeting today -continue current abx--> zosyn for proctitis/pain and fevers, remains afebrile -continue PPI, carafate for GERD -oral care for mucositis -supportive care -schedule immodium -social support -prophylactic antimicrobials: posa, acyclovir -transfusion- plt today -replete electrolytes Please see the Advanced Practice Provider documentation from today for the details regardin g the assessment and plan. We reviewed management course in detail including goals of care and treatment expectations. KAR AGGARWAL MD hydraulic technician [facility] Center for Hematologic Malignancies [facility] [place] [email or web address] [phone] Foster ANP - 07/09/2017 3:15 PM PDTFormatting of this note may be di fferent from the original. Daily NICOLE Note - Chemotherapy Admit Center for Hematologic Malignancies Attending: Kar Aggarwal MD [facility] Physician: Pepe Chavis MD Local Oncologist: Daniel Patterson MD PCP: Saurav Small NP Date of Admission: 06/28/17 Hematologic Malignancy: AML ID: 51 yo woman with second relapse AML, FLT3 ITD admitted for eval & treatment. Had salvag e FLAG-Arlette + Midostaurin and Azacitidine bridge while awaiting SCT now with relapse. HX COPD , Depression/PTSD, Disorder of Thyroid, HTN, Insomnia 24 Hour Events/Current Daily Plan: -Relapsed AML, Flt3: Currently Arlette + modified Maurizio-C, currently day 9. Sorafenib Rx insuran ce authorization/appeal rejected, pharmacist writing final appeal. Consider Mylotarg on Day 8 if Sorafenib not available. -Pancytopenia: 2/2 disease. Standard transfusion parameters. Transfuse PRBCs and PPH today. -Non-neutropenic fever:, with septic picture 06/29: Now afebrile and VSS. Localizing sx inclu de pleuritic pain & abdominal pain. CTA 06/29 found left pleural effusion, atelectasis, no PE or consolidations and CT abd/pelvis 06/29 uncomplicated proctitis, HSM with scattered areas of likely AML infiltration, extramedullary hematopoiesis or microabscesses. Continues on Zosyn . -Hypoxia; noted during the night 07/09, likely due to hypoventilation while sleeping as it r esolved once she woke up. -Transaminitis, without hyperbilirubinemia. Likely 2/2 Idarubicin & likely AML infiltrates in liver responding to chemo. Monitor daily labs. Less likely 2/2 Posa at this time, however , consider switching to Marie if worsens. -SWAPNIL: Controlled. Scheduled zofran BID, Compazine QID. Antiemetics PRN. -GERD; Controlled. Continue omeprazole and carafate. -Mucositis/esophagitis; grade 2. Recommended she try special mouthwash PRN. -Diarrhea, likely d/t chemotherapy: Decreased. Continue Imodium ATC and PRN. Consider CDiff testing if worsens. -Lytes; standard repletions Subjective: Walking around the hallways. Asking lots of questions about transplant. Objective: Last Vitals: BP 126/76 | Pulse 90 | Temp 36.6 C (97.9 F) | RR 18 | Ht 1.59 m (5' 2.6") | Wt 83.2 kg (183 lb 8 oz) | SpO2 94% | BMI 32.92 kg/(m^2) 24 Hour Vital Min/Max: Systolic (24hrs), Av , Min:113 , Max:143 Diastolic (24hrs), Av, Min:60, Max:82 Pulse Min: 88 Max: 102 Temp Min: 36.3 C (97.3 F) Max: 37 C (98.6 F) Resp Min: 18 Max: 20 SpO2 Min: 89 % Max: 97 % Intake/Output Summary (Last 24 hours) at 07/09/17 1515 Last data filed at 07/09/17 1400 Gross per 24 hour Intake 2990 ml Output 1725 ml Net 1265 ml Physical Exam: General: This is a female in no acute distress. Lying in bed. HEENT: PERRL. Sclerae anicteric. Mucosa pink with ulceration left hard palate and erythe ma post oropharynx. Rosacea. Skin: No rash, lesions noted. Chest: Lungs clear to auscultation bilat. CV: RRR, no murmurs. Abdomen: S/NT/ND with NABS. No HSM appreciated. Extremities: Pulses strong and equal bilaterally. No c/c/BLE with petechiae & mild non pi tting edema. NeuroPsych: Alert and oriented x 3. Grossly nonfocal exam. CVC: RUE PICC site without inflammation or induration. C/D/I Laboratory Results: Recent Labs 07/06/17 2303 07/08/17 0119 07/08/17 0941 07/08/17 1432 07/09/17 0120 NA 138 -- 137 -- -- 136 K 3.4 -- 3.4 -- -- 3.4 CL 104 -- 102 -- -- 102 BICARB 26 -- 26 -- -- 25 BUN 7 -- 7 -- -- 7 CR 0.41* -- 0.44* -- -- 0.36* GLU 122* < > 99 118* 112* 102* CA 7.9* -- 8.0* -- -- 8.0* AST 110* -- 58* -- -- 34 ALT 227* -- 164* -- -- 122* AP 150* -- 151* -- -- 165* TBILI 0.8 -- 1.2 -- -- 1.0 TP 5.4* -- 5.4* -- -- 5.6* ALB 2.5* -- 2.7* -- -- 2.5* < > = values in this interval not displayed. Recent Labs 07/01/17 2318 07/02/17 2336 07/04/17 0040 07/06/17 2304 07/08/17 0117 07/09/17 0120 WBC 17.35* < > 3.52 < > 0.55* < > <0.10* <0.10* <0.10* RBC 2.47* < > 2.09* < > 2.23* < > 2.32* 2.71* 2.46* HB 7.4* < > 6.4* < > 6.7* < > 7.0* 8.1* 7.3* HCT 22.8* < > 19.2* < > 19.9* < > 20.1* 22.8* 20.8* PLT 12* < > 16* < > 7* < > 15* 9* 8* NEUTROPERC 13.2* -- 25.7* -- 32.5* -- -- -- -- LYMPHPERC 6.1* -- 5.3* -- 5.0* -- -- -- -- MONOPERC 0.9* -- 0.9* -- 10.0* -- -- -- -- BASOPERC 0.0 -- 0.0 -- 0.0 -- -- -- -- EOSPERC 0.0* -- 0.0* -- 0.0* -- -- -- -- < > = values in this interval not displayed. Meds: Reviewed on rounds, see current MAR for medication list SUMMARY OF PATIENT'S HOSPITALIZATION History of Present Illness: (from H&P) Rhea Hutchison is a 51-year-old woman with a history of COPD, depression, hypothyroidism, and AML diagnosed in late 2015 after she presented with pleuritic chest pain and shortness of br eath in addition to profound leukocytosis. Her disease was initially managed with 7+3+ Dasa tinib, course gated by neutropenic fevers, C. difficile, nodular groundglass opacities sudeep rning for invasive fungal infection (although galactomannan negative), treated with Isavucon azole -> Voriconazole. She was reinduced with Cytarabine and entered CR1. She subsequently relapsed in February 2017 started on FLAG-Arlette salvage-->CR2. Her course was subsequently c omplicated by bacterial pneumonia, otherwise recovered well Patient presents as a transfer from outside hospital ([facility]) where she pres ented with body aches and profound fatigue, anemic with new leukocytosis. Repeat bone marro w biopsy concerning for relapsed AML (blasts positive for CD 117, CD33). In the interim sin ce her initial admission, the patient endorses development of new new acute onset pleuritic left-sided chest pain. She states that this chest pain is stabbing, 5-6 out of 10 in intens ity. It is accompanied by a degree of resting dyspnea. Patient also endorses nagging cough productive of white/yellow sputum of approximately 1 week's duration. She denies constitut ional symptoms including fevers, chills, night sweats. She denies new palpitations. She de nies new oral lesions or odynophagia. She does endorse a degree of ongoing nausea but state s that that is baseline for her. She denies emesis. Endorses a degree of constipation. De nies deep new complaints. She does endorse a developing petechial rash over bilateral lo wer extremities, as well as her upper back. She denies new adenopathy. Hospitalization History: Hematology: #Relapsed Flt3 AML Pertinent Diagnostics: -BM Bx 06/21/17 ([facility] [id number]): -Results: 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 myelogenous leukemia (60%); Blasts positive for CD117 and CD 33, negative for CD34, CD71, CD61, CD3 and PAX-5. -Cytogenetics: Normal -Genetrails: NPM1, DNMT3A, NRAS, TET2, FLT3 TKD mutations -PB flow and GeneTrails 06/30/17: -Flow: Recurrent acute myeloid leukemia (87% blasts) -GeneTrails: PENDING Treatment -Chemotherapy regimen: Arlette + Maurizio-C + Sorafenib, started 07/01/17 -Idarubicin 12 mg/m2 daily x 3 days -Cytarabine 1500 mg/m2 CI IV daily x 4 days. -Sorafenib 400 mg daily (sent to [employer] awaiting auth) -Chemo Day: 9 Patient is a candidate for transplant based on Dx and prognostic feature. Brother is a m atch. #Pancytopenia r/t disease and chemotherapy: -See supportive care #Supportive Care: Growth factor: no growth factors required at this time Labs: Continue to check CBC daily Transfusion parameters: -Transfuse PRBCs for HCT <21% if asymptomatic -Transfuse PPH for platelet count <10,000 sooner PRN s/s bleeding. Cardiovascular: Prechemo TTE on 06/29/17 shows EF of 65-70% #Hx of Hypertension: continues on home anti-hypertensives -Amlodipine 10 mg daily -Lisinopril 5 mg daily Pulmonary: #COPD: continues on home inhalers -Spiriva 18 mcg daily -Albuterol PRN GI: #Abdominal pain: multifactorial, likely 2/2 constipation, uncomplicated proctitis & HSM. Pt c/o pain across abdomen including bilateral flank pain L>R. CT abd/pelvis 06/29 - uncomplica sharon proctitis, hepatosplenomegaly and stools n rectum. -Continue bowel regimen Senna BID; MOM, Miralax, and Lactulose PRN -Fentanyl IV, Oxycodone PO prn pain #Transaminitis: Without hyperbilirubinemia. Likely 2/2 Idarubicin & likely AML infiltrates in liver responding to chemo. -Monitor daily labs. -Consider switching to Marie if continues to increase -Ordered daily INR starting 07/06 to check synthetic liver function. #SWAPNIL, no emesis: -Scheduled zofran BID -Compazine QID -Antiemetics PRN #GERD: Controlled -Increased omeprazole to 40mg daily -Trial carafate QID #Diarrhea, likely d/t chemotherapy: -Imodium PRN. -Consider CDiff testing if worsens. /Renal: #Overactive Bladder, chronic issue -Oxybutynin CR 15 mg daily Neuro/Psych: #Depression/Anxiety -Cymbalta 90 mg daily -Lorazepam PRN anxiety Endocrine: #Hypothyroidism: -Synthroid 37.5 mcg daily Infectious Disease: #Non-neutropenic fever, with septic picture 06/29 with tachycardia, tachypnea. Afebrile at th e time, however spiked a fever on 07/01. Localizing sx include pleuritic pain & abdominal alec n. Bld cx NGTD. CTA 06/29 shows left pleural effusion and adjacent atelectasis, no PE or cons olidations. CT abd/pelvis 06/29 shows uncomplicated proctitis, HSM with scattered areas of lik shukri AML infiltration, extramedullary hematopoiesis or microabscesses. -Zosyn (06/29- ) #Prophylaxis: Bacterial: As above Fungal: Reports using marijuana, risk for fungal infection. Started Posaconazole 07/04 after chemotherapy. Viral: Acyclovir PCP: Not indicated Fluid/Nutrition/Lytes: #Nutrition: Current diet -- Regular No Felisha's yogurt or Kefir. #Fluid: 1L IVF PRN for PO intake <2L/day #Lytes: -Continue to check chemistries daily -Replace per supportive care protocol. Disposition: TBD. Anticipate 4-6 week hospitalization. Malena Foster, VESTA FOSTER, VESTA [facility] [address]R [address] [facility] Mailcode: [email or web address] [place], [place] [id number] Kar Aggarwal MD - 07/09/2017 10:30 AM PDTFormatting of this note may be different fro m the original. 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 Was in CR2 and then relapsed. June 21, 2017 ([facility] [id number]); Hypercellular marrow (90%) with relap sed acute myelogenous leukemia (60%); Blasts positive for CD117 and CD 33, negative for CD34 , CD71, CD61, CD3 and PAX-5. - remains FLT3 ITD by [employer] (full panel pending) I rounded today in conjunction with the Advanced Practice Provider. I saw the patient, reviewed the history and relevant studies and developed an assessment an d plan. Subjective/Objective: Nothing new to report. Had mild hypoxia (89%) while sleeping which re solved spontaneously. Sore throat and mout sore. Last Vitals: BP 128/76 | Pulse 92 | Temp 36.6 C (97.9 F) | RR 18 | Ht 1.59 m (5' 2.6") | Wt 83.2 kg (183 lb 8 oz) | SpO2 94% | BMI 32.92 kg/(m^2) 24 Hour Vital Min/Max: Systolic (24hrs), Av , Min:113 , Max:143 Diastolic (24hrs), Av, Min:60, Max:85 Pulse Min: 90 Max: 111 Temp Min: 36.3 C (97.3 F) Max: 37 C (98.6 F) Resp Min: 18 Max: 20 SpO2 Min: 89 % Max: 97 % Intake/Output Summary (Last 24 hours) at 07/09/17 1030 Last data filed at 07/09/17 1000 Gross per 24 hour Intake 3630 ml Output 2375 ml Net 1255 ml Nad, interactive rr Exam stable per nicole Labs reviewed Counts at jacquelin, plt 8 LDH 518 I am actively managing the following: Patients Hospital Problem List: Active Hospital Problems 1) COPD (chronic obstructive pulmonary disease) (HCC) 2) Anxiety and depression 3) Acute myeloid leukemia not having achieved remission (HCC) 4) Learning disability 5) Rash of face 6) Neutropenic fever (HCC) 7) Pancytopenia due to antineoplastic chemotherapy (HCC) 8) Transaminitis 9) Hepatosplenomegaly 10) Pleural effusion 11) Proctitis 12) Protein-calorie malnutrition, mild (HCC) 13) Immunocompromised state (HCC) 14) Chemotherapy induced diarrhea 15) mucositis Plan for today - day 8 of arlette + cytarabine + sorefenib (sorafenib denied and appealed by pharmacy, waiting for answer) Denies sorafenib again Formal appeal again today If unable to obtain, will pursue myelotarg as CD33+ -continue current abx--> zosyn for proctitis/pain and fevers -continue PPI, carafate for GERD -oral care for mucositis -supportive care -schedule immodium -social support -prophylactic antimicrobials: posa, acyclovir -transfusion- plt today -replete electrolytes Please see the Advanced Practice Provider documentation from today for the details regardin g the assessment and plan. We reviewed management course in detail including goals of care and treatment expectations. KAR AGGARWAL MD hydraulic technician [facility] Center for Hematologic Malignancies [facility] [place] [email or web address] [phone] Foster ANP - 07/08/2017 6:40 PM PDTFormatting of this note may be di fferent from the original. Daily NICOLE Note - Chemotherapy Admit Center for Hematologic Malignancies Attending: Kar Aggarwal MD [facility] Physician: Pepe Chavis MD Local Oncologist: Daniel Patterson MD PCP: Saurav Small NP Date of Admission: 06/28/17 Hematologic Malignancy: AML ID: 51 yo woman with second relapse AML, FLT3 ITD admitted for eval & treatment. Had salvag e FLAG-Arlette + Midostaurin and Azacitidine bridge while awaiting SCT now with relapse. HX COPD , Depression/PTSD, Disorder of Thyroid, HTN, Insomnia 24 Hour Events/Current Daily Plan: -Relapsed AML, Flt3: Currently Arlette + modified Maurizio-C, currently day 8. Sorafenib Rx insuran ce authorization/appeal PENDING as it has been denied x 2. Consider Mylotarg on Day 8 if Sor afenib not available. -Pancytopenia: 2/2 disease. Standard transfusion parameters. Transfuse PRBCs today. -Non-neutropenic fever, with septic picture 3/3: noted tachycardia, tachypnea no fevers. Lo calizing sx include pleuritic pain & abdominal pain. CTA 3/3 left pleural effusion, atelecta sis, no PE or consolidations. CT abd/pelvis 3/3 uncomplicated proctitis, HSM with scattered areas of likely AML infiltration, extramedullary hematopoiesis or microabscesses. Continues on Zosyn. -Transaminitis, without hyperbilirubinemia. Likely 2/2 Idarubicin & likely AML infiltrates in liver responding to chemo. Monitor daily labs. Less likely 2/2 Posa at this time, however , consider switching to Marie if worsens. -SWAPNIL: Scheduled zofran BID, Compazine QID. Antiemetics PRN. -GERD, worsened 07/07. Continue omeprazole to 40mg daily, trial carafate QID. -Diarrhea, likely d/t chemotherapy: 1400cc stool output yesterday. Continue Imodium PRN. Co nsider CDiff testing if worsens. -Lytes; standard repletions Subjective: Walking around the hallways. Objective: Last Vitals: BP 125/81 | Pulse 102 | Temp 36.3 C (97.3 F) | RR 20 | Ht 1.59 m (5' 2.6") | Wt 83.7 kg (184 lb 8.4 oz) | SpO2 97% | BMI 33.11 kg/(m^2) 24 Hour Vital Min/Max: Systolic (24hrs), Av , Min:111 , Max:133 Diastolic (24hrs), Av, Min:68, Max:85 Pulse Min: 98 Max: 111 Temp Min: 36.3 C (97.3 F) Max: 37.4 C (99.3 F) Resp Min: 16 Max: 22 SpO2 Min: 92 % Max: 97 % Intake/Output Summary (Last 24 hours) at 07/08/17 1840 Last data filed at 07/08/17 1823 Gross per 24 hour Intake 3049 ml Output 2450 ml Net 599 ml Physical Exam: General: This is a female in no acute distress. Lying in bed. HEENT: PERRL. Sclerae anicteric. Mucosa pink and moist without erythema or exudate. Andree cea. Skin: No rash, lesions noted. Chest: Lungs clear to auscultation bilat. CV: RRR, no murmurs. Abdomen: S/NT/ND with NABS. No HSM appreciated. Extremities: Pulses strong and equal bilaterally. No c/c/BLE with petechiae & mild non pi tting edema. NeuroPsych: Alert and oriented x 3. Grossly nonfocal exam. CVC: RUE PICC site without inflammation or induration. C/D/I Laboratory Results: Recent Labs 07/05/17232407/06/17230207/08/17 0119 07/08/17 0941 07/08/17 1432 NA 139 -- 138 -- 137 -- -- K 4.1 -- 3.4 -- 3.4 -- -- CL 107 -- 104 -- 102 -- -- BICARB 26 -- 26 -- 26 -- -- BUN 11 -- 7 -- 7 -- -- CR 0.30* -- 0.41* -- 0.44* -- -- GLU 157* < > 122* < > 99 118* 112* CA 8.1* -- 7.9* -- 8.0* -- -- AST 184* -- 110* -- 58* -- -- ALT 283* -- 227* -- 164* -- -- AP 162* -- 150* -- 151* -- -- TBILI 0.8 -- 0.8 -- 1.2 -- -- TP 5.0* -- 5.4* -- 5.4* -- -- ALB 2.4* -- 2.5* -- 2.7* -- -- < > = values in this interval not displayed. Recent Labs 07/01/17231707/02/17233507/04/17 0040 07/05/17232407/06/17230307/08/17 0117 WBC 17.35* < > 3.52 < > 0.55* < > <0.10* <0.10* <0.10* RBC 2.47* < > 2.09* < > 2.23* < > 2.44* 2.32* 2.71* HB 7.4* < > 6.4* < > 6.7* < > 7.3* 7.0* 8.1* HCT 22.8* < > 19.2* < > 19.9* < > 21.5* 20.1* 22.8* PLT 12* < > 16* < > 7* < > 9* 15* 9* NEUTROPERC 13.2* -- 25.7* -- 32.5* -- -- -- -- LYMPHPERC 6.1* -- 5.3* -- 5.0* -- -- -- -- MONOPERC 0.9* -- 0.9* -- 10.0* -- -- -- -- BASOPERC 0.0 -- 0.0 -- 0.0 -- -- -- -- EOSPERC 0.0* -- 0.0* -- 0.0* -- -- -- -- < > = values in this interval not displayed. Meds: Reviewed on rounds, see current MAR for medication list SUMMARY OF PATIENT'S HOSPITALIZATION History of Present Illness: (from H&P) Rhea Hutchison is a 51-year-old woman with a history of COPD, depression, hypothyroidism, and AML diagnosed in late 2015 after she presented with pleuritic chest pain and shortness of br eath in addition to profound leukocytosis. Her disease was initially managed with 7+3+ Dasa tinib, course gated by neutropenic fevers, C. difficile, nodular groundglass opacities sudeep rning for invasive fungal infection (although galactomannan negative), treated with Isavucon azole -> Voriconazole. She was reinduced with Cytarabine and entered CR1. She subsequently relapsed in February 2017 started on FLAG-Arlette salvage-->CR2. Her course was subsequently c omplicated by bacterial pneumonia, otherwise recovered well Patient presents as a transfer from outside hospital ([facility]) where she pres ented with body aches and profound fatigue, anemic with new leukocytosis. Repeat bone marro w biopsy concerning for relapsed AML (blasts positive for CD 117, CD33). In the interim sin ce her initial admission, the patient endorses development of new new acute onset pleuritic left-sided chest pain. She states that this chest pain is stabbing, 5-6 out of 10 in intens ity. It is accompanied by a degree of resting dyspnea. Patient also endorses nagging cough productive of white/yellow sputum of approximately 1 week's duration. She denies constitut ional symptoms including fevers, chills, night sweats. She denies new palpitations. She de nies new oral lesions or odynophagia. She does endorse a degree of ongoing nausea but state s that that is baseline for her. She denies emesis. Endorses a degree of constipation. De nies deep new complaints. She does endorse a developing petechial rash over bilateral lo wer extremities, as well as her upper back. She denies new adenopathy. Hospitalization History: Hematology: #Relapsed Flt3 AML Pertinent Diagnostics: -BM Bx 06/21/17 ([facility] [id number]): -Results: 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 myelogenous leukemia (60%); Blasts positive for CD117 and CD 33, negative for CD34, CD71, CD61, CD3 and PAX-5. -Cytogenetics: Normal -Genetrails: NPM1, DNMT3A, NRAS, TET2, FLT3 TKD mutations -PB flow and GeneTrails 06/30/17: -Flow: Recurrent acute myeloid leukemia (87% blasts) -GeneTrails: PENDING Treatment -Chemotherapy regimen: Arlette + Maurizio-C + Sorafenib, started 07/01/17 -Idarubicin 12 mg/m2 daily x 3 days -Cytarabine 1500 mg/m2 CI IV daily x 4 days. -Sorafenib 400 mg daily (sent to [employer] awaiting auth) -Chemo Day: 8 Patient is a candidate for transplant based on Dx and prognostic feature. Brother is a m atch. #Pancytopenia r/t disease and chemotherapy: -See supportive care #Coagulopathy: with prolonged INR. -s/p Vit K x3 days (07/02-07/04) #Supportive Care: Growth factor: no growth factors required at this time Labs: Continue to check CBC daily, q6hrs with TLS labs, now daily labs Transfusion parameters: -Transfuse PRBCs for HCT <21% if asymptomatic OR <24% if symptomatic -Transfuse PPH for platelet count <10,000 sooner PRN s/s bleeding. Cardiovascular: Prechemo TTE on 06/29/17 shows EF of 65-70% #Hx of Hypertension: continues on home anti-hypertensives -Amlodipine 10 mg daily -Lisinopril 5 mg daily Pulmonary: #COPD: continues on home inhalers -Spiriva 18 mcg daily -Albuterol PRN GI: #Abdominal pain: multifactorial, likely 2/2 constipation, uncomplicated proctitis & HSM. Pt c/o pain across abdomen including bilateral flank pain L>R. CT abd/pelvis 06/29 - uncomplica sharon proctitis, hepatosplenomegaly and stools n rectum. -Bowel regimen: Senna BID; MOM, Miralax, and Lactulose PRN -Fentanyl IV, Oxycodone PO prn pain #Transaminitis: Without hyperbilirubinemia. Likely 2/2 Idarubicin & likely AML infiltrates in liver responding to chemo. -Monitor daily labs. -Consider switching to Marie if continues to increase -Ordered daily INR starting 07/06 to check synthetic liver function. #SWAPNIL, no emesis: -Scheduled zofran BID -Compazine QID -Antiemetics PRN #GERD, worsened 07/07: -Increased omeprazole to 40mg daily -Trial carafate QID #Diarrhea, likely d/t chemotherapy: -Imodium PRN. -Consider CDiff testing if worsens. /Renal: #Overactive Bladder, chronic issue -Oxybutynin CR 15 mg daily Neuro/Psych: #Depression/Anxiety -Cymbalta 90 mg daily -Lorazepam PRN anxiety Endocrine: #Hypothyroidism: -Synthroid 37.5 mcg daily Infectious Disease: #Non-neutropenic fever, with septic picture 06/29 with tachycardia, tachypnea. Afebrile at th e time, however spiked a fever on 07/01. Localizing sx include pleuritic pain & abdominal alec n. Bld cx NGTD. CTA 06/29 shows left pleural effusion and adjacent atelectasis, no PE or cons olidations. CT abd/pelvis 06/29 shows uncomplicated proctitis, HSM with scattered areas of lik shukri AML infiltration, extramedullary hematopoiesis or microabscesses. -Zosyn (06/29- ) #Prophylaxis: Bacterial: As above Fungal: Reports using marijuana, risk for fungal infection. Started Posaconazole 07/04 after chemotherapy. Viral: Acyclovir PCP: Not indicated Fluid/Nutrition/Lytes: #Nutrition: Current diet -- Regular No Felisha's yogurt or Kefir. #Fluid: 1L IVF PRN for PO intake <2L/day #Lytes: -Continue to check chemistries daily -Replace per supportive care protocol. Disposition: TBD. Anticipate 4-6 week hospitalization. VESTA Sexton ANP [facility] [id number] [facility] [facility] Mailcode: [email or web address] [place] [address] Kar Aggarwal MD - 07/08/2017 4:09 PM PDTFormatting of this note may be different fro m the original. 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 Was in CR2 and then relapsed. June 21, 2017 ([facility] [id number]); Hypercellular marrow (90%) with relap sed acute myelogenous leukemia (60%); Blasts positive for CD117 and CD 33, negative for CD34 , CD71, CD61, CD3 and PAX-5. - remains FLT3 ITD by [employer] (full panel pending) I rounded today in conjunction with the Advanced Practice Provider. I saw the patient, reviewed the history and relevant studies and developed an assessment an d plan. Subjective/Objective: GERD improved today. Diarrhea bu no other complaints or new symptoms. Denies abdominal pain/cramping. Last Vitals: BP 133/85 | Pulse 111 | Temp 36.4 C (97.5 F) | RR 20 | Ht 1.59 m (5' 2.6") | Wt 83.7 kg (184 lb 8.4 oz) | SpO2 96% | BMI 33.11 kg/(m^2) 24 Hour Vital Min/Max: Systolic (24hrs), Av , Min:111 , Max:133 Diastolic (24hrs), Av, Min:60, Max:85 Pulse Min: 98 Max: 111 Temp Min: 36.4 C (97.5 F) Max: 37.4 C (99.3 F) Resp Min: 16 Max: 22 SpO2 Min: 92 % Max: 97 % Intake/Output Summary (Last 24 hours) at 07/08/17 1609 Last data filed at 07/08/17 1432 Gross per 24 hour Intake 3489 ml Output 2600 ml Net 889 ml Nad, interactive rr Exam stable per nicole Labs reviewed Counts at jacquelin LDH 600 I am actively managing the following: Patients Hospital Problem List: Active Hospital Problems 1) COPD (chronic obstructive pulmonary disease) (HCC) 2) Anxiety and depression 3) Acute myeloid leukemia not having achieved remission (HCC) 4) Learning disability 5) Rash of face 6) Neutropenic fever (HCC) 7) Pancytopenia due to antineoplastic chemotherapy (HCC) 8) Transaminitis 9) Hepatosplenomegaly 10) Pleural effusion 11) Proctitis 12) Protein-calorie malnutrition, mild (HCC) 13) Immunocompromised state (HCC) 14) Chemotherapy induced diarrhea Plan for today - day 7 of arlette + cytarabine + sorefenib (sorafenib denied and appealed by pharmacy, waiting for answer), awaiting appeal If unable to obtain, will pursue myelotarg -continue current abx--> zosyn for proctitis/pain and fevers -continue PPI, carafate -supportive care -schedule immodium -social support -prophylactic antimicrobials: posa, acyclovir -transfusion- plt today -replete electrolytes Please see the Advanced Practice Provider documentation from today for the details regardin g the assessment and plan. KAR AGGARWAL MD hydraulic technician [facility] Center for Hematologic Malignancies [facility] [place] [email or web address] [phone], Stephen, MD - 07/07/2017 2:01 PM PDTFormatting of this note may be d ifferent from the original. 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 Was in CR2 and then relapsed. June 21, 2017 ([facility] [id number]); Hypercellular marrow (90%) with relap sed acute myelogenous leukemia (60%); Blasts positive for CD117 and CD 33, negative for CD34 , CD71, CD61, CD3 and PAX-5. - remains FLT3 ITD by [employer] (full panel pending) I rounded today in conjunction with the Advanced Practice Provider. I saw the patient, reviewed the history and relevant studies and developed an assessment an d plan. Subjective/Objective: Increasing GERD and recurrent intermmitent pleuritic pain. + diarrhea but no abdominal cramping. ROS otherwise negative Last Vitals: BP 126/75 | Pulse 83 | Temp 36.7 C (98.1 F) | RR 16 | Ht 1.59 m (5' 2.6") | Wt 83.2 kg (183 lb 6.8 oz) | SpO2 94% | BMI 32.91 kg/(m^2) 24 Hour Vital Min/Max: Systolic (24hrs), Av , Min:112 , Max:140 Diastolic (24hrs), Av, Min:68, Max:75 Pulse Min: 83 Max: 105 Temp Min: 36.3 C (97.3 F) Max: 36.7 C (98.1 F) Resp Min: 16 Max: 20 SpO2 Min: 93 % Max: 96 % Intake/Output Summary (Last 24 hours) at 07/07/17 1401 Last data filed at 07/07/17 1200 Gross per 24 hour Intake 2035 ml Output 3155 ml Net -1120 ml Exam stable per nicole Labs reviewed Counts falling, LDH in 700s (improving) I am actively managing the following: Patients Hospital Problem List: Active Hospital Problems 1) COPD (chronic obstructive pulmonary disease) (HCC) 2) Anxiety and depression 3) Acute myeloid leukemia not having achieved remission (HCC) 4) Learning disability 5) Rash of face 6) Neutropenic fever (HCC) 7) Pancytopenia due to antineoplastic chemotherapy (HCC) 8) Transaminitis 9) Hepatosplenomegaly 10) Pleural effusion 11) Proctitis 12) Protein-calorie malnutrition, mild (HCC) 13) Immunocompromised state (HCC) 14) Chemotherapy induced diarrhea Plan for today - day 6 of arlette + cytarabine + sorefenib (sorafenib denied and appealed by pharmacy, waiting for answer), may know more on Saturday as appeal has been placed - LFTs improving-monitor -continue current abx--> zosyn for proctitis/pain and fevers -increase PPI, carafate -supportive care -social support -prophylactic antimicrobials: posa, acyclovir Please see the Advanced Practice Provider documentation from today for the details regardin g the assessment and plan. KAR AGGARWAL MD hydraulic technician [facility] Center for Hematologic Malignancies [facility] [place] [email or web address] [phone], Kaitlyn M, EMPLOYEE RELATIONS ASSISTANT - 07/07/2017 1:26 PM PDTFormatting of this note may be different from the original. Daily NICOLE Note - Chemotherapy Admit Center for Hematologic Malignancies Attending: Kar Aggarwal MD [facility] Physician: Pepe Chavis MD Local Oncologist: Daniel Patterson MD PCP: Saurav Small NP Date of Admission: 06/28/17 Hematologic Malignancy: AML Reason for admission: Relapsed AML, transfer from OSH ID: 51 yo woman with relapsed AML, FLT3 ITD. Was in CR2 and then relapsed. Admitted for samuel l & treatment. 24 Hour Events/Current Daily Plan: -Relapsed AML, Flt3: s/p salvage therapy with FLAG-Arlette + Midostaurin and Azacitidine bridge while awaiting SCT. Admitted from OSH with BM Bx on 06/21/17 showing relapsed AML, 90% cell ularity 60% blasts. -Arlette + modified Maurizio-C, currently day 7 -Sorafenib Rx sent to specialty pharmacy, insurance authorization/appeal PENDING. Consider Mylotarg on Day 8 if Sorafenib not available. -Pancytopenia: 2/2 disease. Standard transfusion parameters. Transfuse PRBCs today. -Non-neutropenic fever, with septic picture 06/29 with tachycardia, tachypnea. Afebrile at th e time, however spiked a fever on 07/01. Localizing sx include pleuritic pain & abdominal alec n. Bld cx NGTD. CTA 06/29 shows left pleural effusion and adjacent atelectasis, no PE or cons olidations. CT abd/pelvis 06/29 shows uncomplicated proctitis, HSM with scattered areas of li maria m AML infiltration, extramedullary hematopoiesis or microabscesses. Continues on Zosyn. -Transaminitis, without hyperbilirubinemia. Likely 2/2 Idarubicin & likely AML infiltrates in liver responding to chemo. Monitor daily labs. Less likely 2/2 Posa at this time, however , consider switching to Marie if worsens. -SWAPNIL, no emesis: Scheduled zofran BID, Compazine QID. Antiemetics PRN. -GERD, worsened 07/07: Increased omeprazole to 40mg daily, trial carafate QID. -Diarrhea, likely d/t chemotherapy: 400cc stool output yesterday. Imodium PRN. Consider CDi ff testing if worsens. -Hypokalemia: Replace potassium today. -Nutrition: Adequate. Able to eat 80-100% x3 meals +1.6L PO fluid intake yesterday. Continu e 1L IVF bolus PRN for PO intake <2L/day Subjective: Feeling tired today with more heartburn and pain in her chest. No stomach pain. Nausea is improved and able to eat and drink without issue. Objective: Last Vitals: BP 126/75 | Pulse 83 | Temp 36.7 C (98.1 F) | RR 16 | Ht 1.59 m (5' 2.6") | Wt 83.2 kg (183 lb 6.8 oz) | SpO2 94% | BMI 32.91 kg/(m^2) 24 Hour Vital Min/Max: Systolic (24hrs), Av , Min:112 , Max:140 Diastolic (24hrs), Av, Min:68, Max:75 Pulse Min: 83 Max: 105 Temp Min: 36.3 C (97.3 F) Max: 36.7 C (98.1 F) Resp Min: 16 Max: 20 SpO2 Min: 93 % Max: 96 % Intake/Output Summary (Last 24 hours) at 07/07/17 1326 Last data filed at 07/07/17 1200 Gross per 24 hour Intake 2275 ml Output 3155 ml Net -880 ml Physical Exam: General: This is a female in no acute distress. Lying in bed. HEENT: PERRL. Sclerae anicteric. Mucosa pink and moist without erythema or exudate. Andree cea. Skin: No rash, lesions noted. Chest: Lungs clear to auscultation bilat. CV: RRR, no murmurs. Abdomen: S/NT/ND with NABS. No HSM appreciated. Extremities: Pulses strong and equal bilaterally. No c/c/BLE with petechiae & mild non pi tting edema. NeuroPsych: Alert and oriented x 3. Grossly nonfocal exam. CVC: RUE PICC site without inflammation or induration. C/D/I Laboratory Results: Recent Labs 07/05/17 0031 07/05/17 2325 07/06/17 2301 07/06/17 2303 07/07/17 0846 NA 137 -- 139 -- -- 138 -- K 4.7 -- 4.1 -- -- 3.4 -- CL 103 -- 107 -- -- 104 -- BICARB 26 -- 26 -- -- 26 -- BUN 13 -- 11 -- -- 7 -- CR 0.40* -- 0.30* -- -- 0.41* -- GLU 218* < > 157* < > 129* 122* 113* CA 8.0* -- 8.1* -- -- 7.9* -- AST 324* -- 184* -- -- 110* -- ALT 326* -- 283* -- -- 227* -- AP 174* -- 162* -- -- 150* -- TBILI 0.8 -- 0.8 -- -- 0.8 -- TP 5.4* -- 5.0* -- -- 5.4* -- ALB 2.5* -- 2.4* -- -- 2.5* -- < > = values in this interval not displayed. Recent Labs 07/01/17 2318 07/02/17 2336 07/04/17 0040 07/05/17 0031 07/05/17 2325 07/06/17 2304 WBC 17.35* < > 3.52 < > 0.55* <0.10* <0.10* <0.10* RBC 2.47* < > 2.09* < > 2.23* 2.50* 2.44* 2.32* HB 7.4* < > 6.4* < > 6.7* 7.5* 7.3* 7.0* HCT 22.8* < > 19.2* < > 19.9* 22.0* 21.5* 20.1* PLT 12* < > 16* < > 7* 17* 9* 15* NEUTROPERC 13.2* -- 25.7* -- 32.5* -- -- -- LYMPHPERC 6.1* -- 5.3* -- 5.0* -- -- -- MONOPERC 0.9* -- 0.9* -- 10.0* -- -- -- BASOPERC 0.0 -- 0.0 -- 0.0 -- -- -- EOSPERC 0.0* -- 0.0* -- 0.0* -- -- -- < > = values in this interval not displayed. Meds: Reviewed on rounds, see current MAR for medication list SUMMARY OF PATIENT'S HOSPITALIZATION History of Present Illness: (from H&P) Rhea Hutchison is a 51-year-old woman with a history of COPD, depression, hypothyroidism, and AML diagnosed in late 2015 after she presented with pleuritic chest pain and shortness of br eath in addition to profound leukocytosis. Her disease was initially managed with 7+3+ Dasa tinib, course gated by neutropenic fevers, C. difficile, nodular groundglass opacities sudeep rning for invasive fungal infection (although galactomannan negative), treated with Isavucon azole -> Voriconazole. She was reinduced with Cytarabine and entered CR1. She subsequently relapsed in February 2017 started on FLAG-Arlette salvage-->CR2. Her course was subsequently c omplicated by bacterial pneumonia, otherwise recovered well Patient presents as a transfer from outside hospital ([facility]) where she pres ented with body aches and profound fatigue, anemic with new leukocytosis. Repeat bone marro w biopsy concerning for relapsed AML (blasts positive for CD 117, CD33). In the interim sin ce her initial admission, the patient endorses development of new new acute onset pleuritic left-sided chest pain. She states that this chest pain is stabbing, 5-6 out of 10 in intens ity. It is accompanied by a degree of resting dyspnea. Patient also endorses nagging cough productive of white/yellow sputum of approximately 1 week's duration. She denies constitut ional symptoms including fevers, chills, night sweats. She denies new palpitations. She de nies new oral lesions or odynophagia. She does endorse a degree of ongoing nausea but state s that that is baseline for her. She denies emesis. Endorses a degree of constipation. De nies deep new complaints. She does endorse a developing petechial rash over bilateral lo wer extremities, as well as her upper back. She denies new adenopathy. Hospitalization History: Hematology: #Relapsed Flt3 AML Pertinent Diagnostics: -BM Bx 06/21/17 ([facility] [id number]): -Results: 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 myelogenous leukemia (60%); Blasts positive for CD117 and CD 33, negative for CD34, CD71, CD61, CD3 and PAX-5. -Cytogenetics: Normal -Genetrails: NPM1, DNMT3A, NRAS, TET2, FLT3 TKD mutations -PB flow and GeneTrails 06/30/17: -Flow: Recurrent acute myeloid leukemia (87% blasts) -GeneTrails: PENDING Treatment -Chemotherapy regimen: Arlette + Maurizio-C + Sorafenib, started 07/01/17 -Idarubicin 12 mg/m2 daily x 3 days -Cytarabine 1500 mg/m2 CI IV daily x 4 days. -Sorafenib 400 mg daily (sent to [employer] awaiting auth) -Chemo Day: 7 Patient is a candidate for transplant based on Dx and prognostic feature. Brother is a m atch. #Pancytopenia r/t disease and chemotherapy: -See supportive care #Coagulopathy: with prolonged INR. -s/p Vit K x3 days (07/02-07/04) #Supportive Care: Growth factor: no growth factors required at this time Labs: Continue to check CBC daily, q6hrs with TLS labs, now daily labs Transfusion parameters: -Transfuse PRBCs for HCT <21% if asymptomatic OR <24% if symptomatic -Transfuse PPH for platelet count <10,000 sooner PRN s/s bleeding. Cardiovascular: Prechemo TTE on 06/29/17 shows EF of 65-70% #Hx of Hypertension: continues on home anti-hypertensives -Amlodipine 10 mg daily -Lisinopril 5 mg daily Pulmonary: #COPD: continues on home inhalers -Spiriva 18 mcg daily -Albuterol PRN GI: #Abdominal pain: multifactorial, likely 2/2 constipation, uncomplicated proctitis & HSM. Pt c/o pain across abdomen including bilateral flank pain L>R. CT abd/pelvis 06/29 - uncomplica sharon proctitis, hepatosplenomegaly and stools n rectum. -Bowel regimen: Senna BID; MOM, Miralax, and Lactulose PRN -Fentanyl IV, Oxycodone PO prn pain #Transaminitis: Without hyperbilirubinemia. Likely 2/2 Idarubicin & likely AML infiltrates in liver responding to chemo. -Monitor daily labs. -Consider switching to Marie if continues to increase -Ordered daily INR starting 07/06 to check synthetic liver function. #SWAPNIL, no emesis: -Scheduled zofran BID -Compazine QID -Antiemetics PRN #GERD, worsened 07/07: -Increased omeprazole to 40mg daily -Trial carafate QID #Diarrhea, likely d/t chemotherapy: -Imodium PRN. -Consider CDiff testing if worsens. /Renal: #Overactive Bladder, chronic issue -Oxybutynin CR 15 mg daily Neuro/Psych: #Depression/Anxiety -Cymbalta 90 mg daily -Lorazepam PRN anxiety Endocrine: #Hypothyroidism: -Synthroid 37.5 mcg daily Infectious Disease: #Non-neutropenic fever, with septic picture 06/29 with tachycardia, tachypnea. Afebrile at th e time, however spiked a fever on 07/01. Localizing sx include pleuritic pain & abdominal alec n. Bld cx NGTD. CTA 06/29 shows left pleural effusion and adjacent atelectasis, no PE or cons olidations. CT abd/pelvis 06/29 shows uncomplicated proctitis, HSM with scattered areas of lik shukri AML infiltration, extramedullary hematopoiesis or microabscesses. -Zosyn (06/29- ) #Prophylaxis: Bacterial: As above Fungal: Reports using marijuana, risk for fungal infection. Started Posaconazole 07/04 after chemotherapy. Viral: Acyclovir PCP: Not indicated Fluid/Nutrition/Lytes: #Nutrition: Current diet -- Regular No Felisha's yogurt or Kefir. #Fluid: 1L IVF PRN for PO intake <2L/day #Lytes: -Continue to check chemistries daily -Replace per supportive care protocol. Disposition: TBD. Anticipate 4-6 week hospitalization. LEATHA TAPIA NP [facility] [address] Mailcode: [facility] [place] [address] Kar Aggarwal MD - 07/06/2017 3:09 PM PSTFormatting of this note may be different marlee lazar the original. 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 Was in CR2 and then relapsed. June 21, 2017 ([facility] [id number]); Hypercellular marrow (90%) with relap sed acute myelogenous leukemia (60%); Blasts positive for CD117 and CD 33, negative for CD34 , CD71, CD61, CD3 and PAX-5. - remains FLT3 ITD by [employer] (full panel pending) I rounded today in conjunction with the Advanced Practice Provider. I saw the patient, reviewed the history and relevant studies and developed an assessment an d plan. Subjective/Objective: "My nerves are shot." Otherwise no complaints. Denies nausea. at bedside. ROS otherwise negative Last Vitals: BP 122/71 | Pulse 105 | Temp 36.4 C (97.5 F) | RR 18 | Ht 1.59 m (5' 2.6") | Wt 87.7 kg (193 lb 5.5 oz) | SpO2 92% | BMI 34.69 kg/(m^2) 24 Hour Vital Min/Max: Systolic (24hrs), Av , Min:103 , Max:136 Diastolic (24hrs), Av, Min:58, Max:83 Pulse Min: 83 Max: 109 Temp Min: 36.2 C (97.2 F) Max: 36.7 C (98.1 F) Resp Min: 18 Max: 18 SpO2 Min: 92 % Max: 100 % Intake/Output Summary (Last 24 hours) at 07/06/17 1510 Last data filed at 07/06/17 1400 Gross per 24 hour Intake 2654 ml Output 2200 ml Net 454 ml Tearful, otherwise nad, OP is clear RR s1s2, cta b/l Remainder of exam per nicole Labs reviewed Notable for pancytopenia LDH falling I am actively managing the following: Patients Hospital Problem List: Active Hospital Problems 1) COPD (chronic obstructive pulmonary disease) (HCC) 2) Anxiety and depression 3) Acute myeloid leukemia not having achieved remission (HCC) 4) Learning disability 5) Rash of face 6) Neutropenic fever (HCC) 7) Pancytopenia due to antineoplastic chemotherapy (HCC) 8) Transaminitis 9) Hepatosplenomegaly 10) Pleural effusion 11) Proctitis 12) Protein-calorie malnutrition, mild (HCC) 13) Immunocompromised state (HCC) Plan for today - day 5 of arlette + cytarabine + sorefenib (sorafenib denied and appealed by pharmacy, waiting for answer), may know more on Saturday as appeal has been placed - LFTs improving-monitor -continue current abx--> zosyn for proctitis/pain and fevers -supportive care -social support -prophylactic antimicrobials: posa, acyclovir Please see the Advanced Practice Provider documentation from today for the details regardin g the assessment and plan. KAR AGGARWAL MD hydraulic technician [facility] for Hematologic Malignancies [facility] [place] [email or web address] [phone] Tapia NP - 07/06/2017 9:24 AM PSTFormatting of this note may be different from the original. Daily NICOLE Note - Chemotherapy Admit Center for Hematologic Malignancies Attending: Kar Aggarwal MD [facility] Physician: Pepe Chavis MD Local Oncologist: Daniel Patterson MD PCP: Saurav Small NP Date of Admission: 06/28/17 Hematologic Malignancy: AML Reason for admission: Relapsed AML, transfer from OSH ID: 51 yo woman with relapsed AML, FLT3 ITD. Was in CR2 and then relapsed. Admitted for samuel l & treatment. 24 Hour Events/Current Daily Plan: -Relapsed AML, Flt3: s/p salvage therapy with FLAG-Arlette + Midostaurin and Azacitidine bridge while awaiting SCT. Admitted from OSH with BM Bx on 06/21/17 showing relapsed AML, 90% cell ularity 60% blasts. Peripheral blood Genetrails from 06/30 - PENDING. -s/p Hydrea, discontinued 07/04 with declining counts -Start Arlette + modified Maurizio-C, currently day 6 -Sorafenib Rx sent to specialty pharmacy, insurance authorization/appeal PENDING. Consider Mylotarg on Day 8 if Sorafenib not available. -Pancytopenia: 2/2 disease. Standard transfusion parameters. Transfuse platelets today. -Non-neutropenic fever, with septic picture 06/29 with tachycardia, tachypnea. Afebrile at th e time, however spiked a fever on 07/01. Localizing sx include pleuritic pain & abdominal alec n. Bld cx NGTD. CTA 06/29 shows left pleural effusion and adjacent atelectasis, no PE or cons olidations. CT abd/pelvis 06/29 shows uncomplicated proctitis, HSM with scattered areas of li maria m AML infiltration, extramedullary hematopoiesis or microabscesses. Continues on Zosyn. -Transaminitis, without hyperbilirubinemia. Likely 2/2 Idarubicin & likely AML infiltrates in liver responding to chemo. Monitor daily labs. Less likely 2/2 Posa at this time, however , consider switching to Marie if worsens. -SWAPNIL, no emesis: Scheduled zofran BID, Compazine QID. Antiemetics PRN. -Steroid induced hyperglycemia: CBGs AC/HS, Moderate SSI. Trending down off steroids. -Lytes: standard repletion parameters. No electrolyte replacements required today. Subjective: Tearful this morning. Feeling nervous and scared. Nausea is better controlled n ow. No other new symptoms. Objective: Last Vitals: BP 113/59 | Pulse 99 | Temp 36.7 C (98.1 F) | RR 18 | Ht 1.59 m (5' 2.6") | Wt 87.7 kg (193 lb 5.5 oz) | SpO2 93% | BMI 34.69 kg/(m^2) 24 Hour Vital Min/Max: Systolic (24hrs), Av , Min:103 , Max:136 Diastolic (24hrs), Av, Min:58, Max:83 Pulse Min: 82 Max: 109 Temp Min: 36.2 C (97.2 F) Max: 36.7 C (98.1 F) Resp Min: 18 Max: 18 SpO2 Min: 92 % Max: 100 % Intake/Output Summary (Last 24 hours) at 07/06/17 0924 Last data filed at 07/06/17 0700 Gross per 24 hour Intake 2503 ml Output 2300 ml Net 203 ml Physical Exam: General: This is a female in no acute distress. Sitting up in recliner. HEENT: PERRL. Sclerae anicteric. Mucosa pink and moist without erythema or exudate. Andree cea. Skin: No rash, lesions noted. Chest: Lungs clear to auscultation bilat. CV: RRR, no murmurs. Abdomen: S/NT/ND with NABS. No HSM appreciated. Extremities: Pulses strong and equal bilaterally. No c/c/BLE with petechiae & mild non pi tting edema. NeuroPsych: Alert and oriented x 3. Grossly nonfocal exam. CVC: RUE PICC site without inflammation or induration. C/D/I Laboratory Results: Recent Labs 07/04/17 00407/05/17 00307/05/17194507/05/17232307/05/172324 NA 138 137 -- -- -- 139 K 4.6 4.7 -- -- -- 4.1 CL 103 103 -- -- -- 107 BICARB 28 26 -- -- -- 26 BUN 15 13 -- -- -- 11 CR 0.40* 0.40* -- -- -- 0.30* GLU 182* 218* < > 177* 193* 157* CA 8.0* 8.0* -- -- -- 8.1* AST 294* 324* -- -- -- 184* ALT 180* 326* -- -- -- 283* AP 158* 174* -- -- -- 162* TBILI 0.8 0.8 -- -- -- 0.8 TP 5.6* 5.4* -- -- -- 5.0* ALB 2.6* 2.5* -- -- -- 2.4* < > = values in this interval not displayed. Recent Labs 07/01/17231707/02/17233507/04/173907/05/173007/05/172324 WBC 17.35* < > 3.52 < > 0.55* <0.10* <0.10* RBC 2.47* < > 2.09* < > 2.23* 2.50* 2.44* HB 7.4* < > 6.4* < > 6.7* 7.5* 7.3* HCT 22.8* < > 19.2* < > 19.9* 22.0* 21.5* PLT 12* < > 16* < > 7* 17* 9* NEUTROPERC 13.2* -- 25.7* -- 32.5* -- -- LYMPHPERC 6.1* -- 5.3* -- 5.0* -- -- MONOPERC 0.9* -- 0.9* -- 10.0* -- -- BASOPERC 0.0 -- 0.0 -- 0.0 -- -- EOSPERC 0.0* -- 0.0* -- 0.0* -- -- < > = values in this interval not displayed. Meds: Reviewed on rounds, see current MAR for medication list SUMMARY OF PATIENT'S HOSPITALIZATION History of Present Illness: (from H&P) Rhea Hutchison is a 51-year-old woman with a history of COPD, depression, hypothyroidism, and AML diagnosed in late 2015 after she presented with pleuritic chest pain and shortness of br eath in addition to profound leukocytosis. Her disease was initially managed with 7+3+ Dasa tinib, course gated by neutropenic fevers, C. difficile, nodular groundglass opacities sudeep rning for invasive fungal infection (although galactomannan negative), treated with Isavucon azole -> Voriconazole. She was reinduced with Cytarabine and entered CR1. She subsequently relapsed in February 2017 started on FLAG-Arlette salvage-->CR2. Her course was subsequently c omplicated by bacterial pneumonia, otherwise recovered well Patient presents as a transfer from outside hospital ([facility]) where she pres ented with body aches and profound fatigue, anemic with new leukocytosis. Repeat bone marro w biopsy concerning for relapsed AML (blasts positive for CD 117, CD33). In the interim sin ce her initial admission, the patient endorses development of new new acute onset pleuritic left-sided chest pain. She states that this chest pain is stabbing, 5-6 out of 10 in intens ity. It is accompanied by a degree of resting dyspnea. Patient also endorses nagging cough productive of white/yellow sputum of approximately 1 week's duration. She denies constitut ional symptoms including fevers, chills, night sweats. She denies new palpitations. She de nies new oral lesions or odynophagia. She does endorse a degree of ongoing nausea but state s that that is baseline for her. She denies emesis. Endorses a degree of constipation. De nies deep new complaints. She does endorse a developing petechial rash over bilateral lo wer extremities, as well as her upper back. She denies new adenopathy. Hospitalization History: Hematology: #Relapsed Flt3 AML Pertinent Diagnostics: -BM Bx 06/21/17 ([facility] [id number]): -Results: 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 myelogenous leukemia (60%); Blasts positive for CD117 and CD 33, negative for CD34, CD71, CD61, CD3 and PAX-5. -Cytogenetics: Normal -Genetrails: NPM1, DNMT3A, NRAS, TET2, FLT3 TKD mutations -PB flow and GeneTrails 06/30/17: -Flow: Recurrent acute myeloid leukemia (87% blasts) -GeneTrails: PENDING Treatment -Chemotherapy regimen: Arlette + Maurizio-C + Sorafenib, started 07/01/17 -Idarubicin 12 mg/m2 daily x 3 days -Cytarabine 1500 mg/m2 CI IV daily x 4 days. -Sorafenib 400 mg daily -Chemo Day: 6 Patient is a candidate for transplant based on Dx and prognostic feature. Brother is a m atch. #Pancytopenia r/t disease and chemotherapy: -See supportive care #Coagulopathy: with prolonged INR. -s/p Vit K x3 days (07/02-07/04) #Supportive Care: Growth factor: no growth factors required at this time Labs: Continue to check CBC daily, q6hrs with TLS labs, now daily labs Transfusion parameters: -Transfuse PRBCs for HCT <21% if asymptomatic OR <24% if symptomatic -Transfuse PPH for platelet count <10,000 sooner PRN s/s bleeding. Cardiovascular: Prechemo TTE on 06/29/17 shows EF of 65-70% #Hx of Hypertension: continues on home anti-hypertensives -Amlodipine 10 mg daily -Lisinopril 5 mg daily Pulmonary: #COPD: continues on home inhalers -Spiriva 18 mcg daily -Albuterol PRN GI: #Abdominal pain: multifactorial, likely 2/2 constipation, uncomplicated proctitis & HSM. Pt c/o pain across abdomen including bilateral flank pain L>R. CT abd/pelvis 06/29 - uncomplica sharon proctitis, hepatosplenomegaly and stools n rectum. -Bowel regimen: Senna BID; MOM, Miralax, and Lactulose PRN -Fentanyl IV, Oxycodone PO prn pain #Transaminitis: Without hyperbilirubinemia. Likely 2/2 Idarubicin & likely AML infiltrates in liver responding to chemo. -Monitor daily labs. -Consider switching to Marie if continues to increase -Ordered daily INR starting 07/06 to check synthetic liver function. #SWAPNIL, no emesis: -Scheduled zofran BID -Compazine QID -Antiemetics PRN /Renal: #Overactive Bladder, chronic issue -Oxybutynin CR 15 mg daily Neuro/Psych: #Depression/Anxiety -Cymbalta 90 mg daily -Lorazepam PRN anxiety Endocrine: #Hypothyroidism: -Synthroid 37.5 mcg daily Infectious Disease: #Non-neutropenic fever, with septic picture 06/29 with tachycardia, tachypnea. Afebrile at th e time, however spiked a fever on 07/01. Localizing sx include pleuritic pain & abdominal alec n. Bld cx NGTD. CTA 06/29 shows left pleural effusion and adjacent atelectasis, no PE or cons olidations. CT abd/pelvis 06/29 shows uncomplicated proctitis, HSM with scattered areas of lik shukri AML infiltration, extramedullary hematopoiesis or microabscesses. -Zosyn (06/29- ) #Prophylaxis: Bacterial: As above Fungal: Reports using marijuana, risk for fungal infection. Started Posaconazole 07/04 after chemotherapy. Viral: Acyclovir PCP: Not indicated Fluid/Nutrition/Lytes: #Nutrition: Current diet -- Regular No Felisha's yogurt or Kefir. #Fluid: 1L IVF PRN for PO intake <2L/day #Lytes: -Continue to check chemistries daily -Replace per supportive care protocol. Disposition: TBD. Anticipate 4-6 week hospitalization. LEATHA TAPIA NP [place] [id number] [facility] Mailcode: [facility] [place] [address] Pepe Chavis MD - 07/05/2017 6:28 PM PSTFormatting of this note may be different from e original. 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 Was in CR2 and then relapsed. Would like to pursue chemotherapy. June 21, 2017 ([facility] [id number]); Hypercellular marrow (90%) with relap sed acute myelogenous leukemia (60%); Blasts positive for CD117 and CD 33, negative for CD34 , CD71, CD61, CD3 and PAX-5. I rounded today, 07/05/17, in conjunction with the Advanced Practice Provider. I saw the patient, reviewed the history and relevant studies and developed an assessment an d plan. Subjective/Objective: feeling better today. Less issues with abd pain. Bowels moving. Breat hanh better ROS otherwise negative Summary of day's events and plan: day 5 of arlette + cytarabine + sorefenib (sorafenib denied a nd appealed by pharmacy, waiting for answer) - WBC dropped rapidly with chemo - LFTs up from chemo and likely liver invovlement - recuced fluid for volume overload -> stop after cytarabine this evening - remains FLT3 ITD by [employer] (full panel pending) - zosyn for proctitis/pain and fevers - acyclovir ppx - posa ppx -> may need to hold if LFTs continue to rise from chemo Please see the Advanced Practice Provider documentation from today for the details regardin g the assessment and plan. Active Problems: Patients Hospital Problem List: Active Hospital Problems 1) COPD (chronic obstructive pulmonary disease) (HCC) 2) Anxiety and depression 3) Acute myeloid leukemia not having achieved remission (HCC) 4) Learning disability 5) Rash of face 6) Neutropenic fever (HCC) 7) Pancytopenia due to antineoplastic chemotherapy (HCC) 8) Transaminitis 9) Hepatosplenomegaly 10) Pleural effusion Ht 1.59 m (5' 2.6"), Wt 90.1 kg (198 lb 10.2 oz), BP 136/79, Pulse 90, Temperature 36.2 C (97.2 F), RR 18, SpO2 100%, BMI 35.64 kg/(m^2). Focused Exam: facial erythema improved, op clear, cta b, rrr no m/r/g, soft abd, tr edema Intake/Output Summary (Last 24 hours) at 07/05/17 1828 Last data filed at 07/05/17 1800 Gross per 24 hour Intake 3419 ml Output 3050 ml Net 369 ml Recent Labs 07/02/17 2336 07/03/17 0503 07/04/17 0040 07/05/17 0031 07/05/17 1211 NA 137 138 138 137 -- K 4.2 4.3 4.6 4.7 -- CL 102 104 103 103 -- BICARB 23 25 28 26 -- BUN 15 15 15 13 -- CR 0.42* 0.46* 0.40* 0.40* -- GLU 163* 173* 182* 218* 230* CA 7.9* 7.8* 8.0* 8.0* -- AST 51* -- 294* 324* -- ALT 27 -- 180* 326* -- AP 156* -- 158* 174* -- TBILI 0.5 -- 0.8 0.8 -- TP 5.7* -- 5.6* 5.4* -- ALB 2.8* -- 2.6* 2.5* -- Recent Labs 07/01/17 2318 07/02/17 2336 07/03/17 0503 07/04/17 0040 07/05/17 0031 WBC 17.35* < > 3.52 1.91* 0.55* <0.10* RBC 2.47* < > 2.09* 2.11* 2.23* 2.50* HB 7.4* < > 6.4* 6.5* 6.7* 7.5* HCT 22.8* < > 19.2* 19.4* 19.9* 22.0* PLT 12* < > 16* 14* 7* 17* NEUTROPERC 13.2* -- 25.7* -- 32.5* -- LYMPHPERC 6.1* -- 5.3* -- 5.0* -- MONOPERC 0.9* -- 0.9* -- 10.0* -- BASOPERC 0.0 -- 0.0 -- 0.0 -- EOSPERC 0.0* -- 0.0* -- 0.0* -- < > = values in this interval not displayed. I spent 35 minutes including chart review and discussion with the NICOLE. Greater than >50% of time spent in direct counseling and coordination of care including discussion of chemo, flu ids, sorafenib, appetite, abd pain and plan. Sarah Katz FNP - 07/05/2017 5:22 PM PSTFormatting of this note may be different from the original. Daily NICOLE Note - Chemotherapy Admit Center for Hematologic Malignancies Attending: Pepe Chavis MD [facility] Physician: Pepe Chavis MD Local Oncologist: Daniel Patterson MD PCP: Saurav Small NP Date of Admission: 06/28/17 Hematologic Malignancy: AML Reason for admission: Relapsed AML, transfer from OSH ID: 51 yo woman with relapsed AML, FLT3 ITD. Was in CR2 and then relapsed. Admitted for samuel l & treatment. 24 Hour Events/Current Daily Plan: -Relapsed AML, Flt3: s/p salvage therapy with FLAG-Arlette + Midostaurin and Azacitidine bridge while awaiting SCT. Admitted from OSH with BM Bx on 06/21/17 showing relapsed AML, 90% cell ularity 60% blasts. Peripheral blood Genetrails from 06/30 - PENDING. -Start Arlette + modified Maurizio-C, currently day 5 -Sorafenib Rx sent to specialty pharmacy, insurance authorization/appeal PENDING. Consider Mylotarg on Day 8 if Sorafenib not available. -Leukocytosis: secondary to disease, WBC ~30K on admission. Hydrea stopped with initiation of chemotherapy. Now with leukopenia. -Pancytopenia: 2/2 disease. Standard transfusion parameters. No transfusions today. -Coagulopathy: with prolonged INR. Vit K x3 days (07/02-07/04) -Risk for TLS: No e/o active tumor lysis. Continued Allopurinol & MIVF. Stopped allopurinol 07/04 given pancytopenia & decreased r/o TLS. -SIRS with fever: noted on 06/29 with tachycardia, tachypnea, and flushed appearance. Afebril e at the time, however spiked a fever on 07/01. Localizing sx include pleuritic pain & abdomi nal pain. Bld cx NGTD. CTA 06/29 shows left pleural effusion and adjacent atelectasis, no PE or consolidations. CT abd/pelvis 06/29 shows uncomplicated proctitis, HSM with scattered area s of likely AML infiltration, extramedullary hematopoiesis or microabscesses. -Continues on Zosyn. -Abdominal pain: multifactorial 2/2 constipation, uncomplicated proctitis & HSM. Reported p ain across abdomen including bilateral flank pain L>R. Now improved. -Fentanyl IV, Oxycodone PO prn pain -Transaminitis: Without hyperbilirubinemia. Likely 2/2 Idarubicin & likely AML infiltrates in liver responding to chemo. Monitor daily labs. Less likely 2/2 Posa at this time, however , consider switching to Marie if continues to increase. -SIH: 2/2 steroids premeds. AM CBG 218. Start CBGs/moderate SSI with plan to stop when CBGs improve. -Lytes: standard repletion parameters. No electrolyte replacements required today. -FVO: 2/2 aggressive IV hydration for chemo. MIVF 100 ml/hr--> 50 ml/hr. Lasix 20 mg IV x 1 on 07/03 & 07/04. Stop MIVF 07/06 after completion of MAURIZIO-C. Subjective: Feels better this morning. Feels less swollen today. Has been walking the jimmy lways. Abdominal pain stable, controlled. Objective: Last Vitals: BP 136/79 | Pulse 90 | Temp 36.4 C (97.5 F) | RR 18 | Ht 1.59 m (5' 2.6") | Wt 90.1 kg (198 lb 10.2 oz) | SpO2 100% | BMI 35.64 kg/(m^2) 24 Hour Vital Min/Max: Systolic (24hrs), Av , Min:114 , Max:136 Diastolic (24hrs), Av, Min:64, Max:79 Pulse Min: 72 Max: 106 Temp Min: 36.4 C (97.5 F) Max: 36.7 C (98.1 F) Resp Min: 18 Max: 18 SpO2 Min: 92 % Max: 100 % Intake/Output Summary (Last 24 hours) at 07/05/17 1722 Last data filed at 07/05/17 1602 Gross per 24 hour Intake 3445 ml Output 3050 ml Net 395 ml Physical Exam: General: This is a female in no acute distress. Sitting up in recliner. Spouse a t bedside. HEENT: PERRL. Sclerae anicteric. Mucosa pink and moist without erythema or exudate. Mild facial flushing. Skin: No rash, lesions noted. Chest: Lungs mildly diminished to auscultation bilat. CV: RRR, no murmurs. Abdomen: S/NT/ND with NABS. No HSM appreciated. Extremities: Pulses strong and equal bilaterally. No c/c/BLE with petechiae & mild non pi tting edema. NeuroPsych: Alert and oriented x 3. Grossly nonfocal exam. CVC: RUE PICC site without inflammation or induration. C/D/I Laboratory Results: Recent Labs 07/02/17 2336 07/03/17 0503 07/04/17 0040 07/05/17 0031 07/05/17 1211 NA 137 138 138 137 -- K 4.2 4.3 4.6 4.7 -- CL 102 104 103 103 -- BICARB 23 25 28 26 -- BUN 15 15 15 13 -- CR 0.42* 0.46* 0.40* 0.40* -- GLU 163* 173* 182* 218* 230* CA 7.9* 7.8* 8.0* 8.0* -- AST 51* -- 294* 324* -- ALT 27 -- 180* 326* -- AP 156* -- 158* 174* -- TBILI 0.5 -- 0.8 0.8 -- TP 5.7* -- 5.6* 5.4* -- ALB 2.8* -- 2.6* 2.5* -- Recent Labs 07/01/17 2318 07/02/176 07/03/17 0503 07/04/17 0040 07/05/17 0031 WBC 17.35* < > 3.52 1.91* 0.55* <0.10* RBC 2.47* < > 2.09* 2.11* 2.23* 2.50* HB 7.4* < > 6.4* 6.5* 6.7* 7.5* HCT 22.8* < > 19.2* 19.4* 19.9* 22.0* PLT 12* < > 16* 14* 7* 17* NEUTROPERC 13.2* -- 25.7* -- 32.5* -- LYMPHPERC 6.1* -- 5.3* -- 5.0* -- MONOPERC 0.9* -- 0.9* -- 10.0* -- BASOPERC 0.0 -- 0.0 -- 0.0 -- EOSPERC 0.0* -- 0.0* -- 0.0* -- < > = values in this interval not displayed. Meds: Reviewed on rounds, see current MAR for medication list SUMMARY OF PATIENT'S HOSPITALIZATION History of Present Illness: (from H&P) Rhea Hutchison is a 51-year-old woman with a history of COPD, depression, hypothyroidism, and AML diagnosed in late 2015 after she presented with pleuritic chest pain and shortness of br eath in addition to profound leukocytosis. Her disease was initially managed with 7+3+ Dasa tinib, course gated by neutropenic fevers, C. difficile, nodular groundglass opacities sudeep rning for invasive fungal infection (although galactomannan negative), treated with Isavucon azole -> Voriconazole. She was reinduced with Cytarabine and entered CR1. She subsequently relapsed in February 2017 started on FLAG-Arlette salvage-->CR2. Her course was subsequently c omplicated by bacterial pneumonia, otherwise recovered well Patient presents as a transfer from outside hospital ([facility]) where she pres ented with body aches and profound fatigue, anemic with new leukocytosis. Repeat bone marro w biopsy concerning for relapsed AML (blasts positive for CD 117, CD33). In the interim sin ce her initial admission, the patient endorses development of new new acute onset pleuritic left-sided chest pain. She states that this chest pain is stabbing, 5-6 out of 10 in intens ity. It is accompanied by a degree of resting dyspnea. Patient also endorses nagging cough productive of white/yellow sputum of approximately 1 week's duration. She denies constitut ional symptoms including fevers, chills, night sweats. She denies new palpitations. She de nies new oral lesions or odynophagia. She does endorse a degree of ongoing nausea but state s that that is baseline for her. She denies emesis. Endorses a degree of constipation. De nies deep new complaints. She does endorse a developing petechial rash over bilateral lo wer extremities, as well as her upper back. She denies new adenopathy. Hospitalization History: Hematology: #Relapsed Flt3 AML Pertinent Diagnostics: -BM Bx 06/21/17 ([facility] [id number]): -Results: 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 myelogenous leukemia (60%); Blasts positive for CD117 and CD 33, negative for CD34, CD71, CD61, CD3 and PAX-5. -Cytogenetics: Normal -Genetrails: NPM1, DNMT3A, NRAS, TET2, FLT3 TKD mutations -PB flow and GeneTrails 06/30/17: -Flow: Recurrent acute myeloid leukemia (87% blasts) -GeneTrails: PENDING Treatment -Chemotherapy regimen: Arlette + Maurizio-C + Sorafenib, started 07/01/17 -Idarubicin 12 mg/m2 daily x 3 days -Cytarabine 1500 mg/m2 CI IV daily x 4 days. -Sorafenib 400 mg daily -Chemo Day: 5 Patient is a candidate for transplant based on Dx and prognostic feature. Brother is a m atch. #Pancytopenia: -See supportive care #Coagulopathy: with prolonged INR. -Vit K x3 days (07/02-07/04) #Supportive Care: Growth factor: no growth factors required at this time Labs: Continue to check CBC daily, q6hrs with TLS labs, now daily labs Transfusion parameters: -Transfuse PRBCs for HCT <21% if asymptomatic OR <24% if symptomatic -Transfuse PPH for platelet count <10,000 sooner PRN s/s bleeding. Cardiovascular: Prechemo TTE on 06/29/17 shows EF of 65-70% #Hx of Hypertension: continues on home anti-hypertensives -Amlodipine 10 mg daily -Lisinopril 5 mg daily Pulmonary: #COPD: continues on home inhalers -Spiriva 18 mcg daily -Albuterol PRN GI: #Abdominal pain: multifactorial, likely 2/2 constipation, uncomplicated proctitis & HSM. Pt c/o pain across abdomen including bilateral flank pain L>R. CT abd/pelvis 06/29 - uncomplica sharon proctitis, hepatosplenomegaly and stools n rectum. -Bowel regimen: Senna BID; MOM, Miralax, and Lactulose PRN -Fentanyl IV, Oxycodone PO prn pain #Transaminitis: Without hyperbilirubinemia. Likely 2/2 Idarubicin & likely AML infiltrates in liver responding to chemo. -Monitor daily labs. -Consider switching to Marie if continues to increase -Ordered daily INR starting 07/06 to check synthetic liver function. /Renal: #Overactive Bladder, chronic issue -Oxybutynin CR 15 mg daily Neuro/Psych: #Depression/Anxiety -Cymbalta 90 mg daily -Lorazepam PRN anxiety Endocrine: #Hypothyroidism: -Synthroid 37.5 mcg daily Infectious Disease: #SIRS with fever: noted on 06/29 with tachycardia, tachypnea, and flushed appearance. No feve rs at that time, however she did eventually spike a fever on 07/01. Localizing sx include ple uritic pain & abdominal pain. Bld cx with NGTD. CTA chest 06/29 shows left pleural effusion a nd adjacent atelectasis, no PE or consolidations. CT abd/pelvis 06/29 shows uncomplicated pro ctitis, HSM with scattered areas of likely AML infiltration, extramedullary hematopoiesis or microabscesses. -Zosyn (06/29 - ) #Prophylaxis: Bacterial: As above Fungal: Reports using marijuana, risk for fungal infection. Started Posaconazole 07/04 after chemo. Consider switching to Micafungin if LFTs continue to worsen Viral: Acyclovir PCP: Not indicated Fluid/Nutrition/Lytes: #Nutrition: Current diet -- Regular No Felisha's yogurt or Kefir. #Fluid: NS at 100 mL/hr--> 50 ml/hr as of 07/03 d/t FVO #Lytes: -Continue to check chemistries daily -Replace per supportive care protocol. Disposition: TBD. Anticipate 4-6 week hospitalization. ISIRDO Rod [address] [facility] Mailcode: [facility] [place] [address] Ezsqssej, Reeshma S, FNP - 07/04/2017 1:06 PM PSTFormatting of this note may b e different from the original. Daily NICOLE Note - Chemotherapy Admit Center for Hematologic Malignancies Attending: Pepe Chavis MD [facility] Physician: Pepe Chavis MD Local Oncologist: Daniel Patterson MD PCP: Saurav Small NP Date of Admission: 06/28/17 Hematologic Malignancy: AML Reason for admission: Relapsed AML, transfer from OSH ID: 51 yo woman with relapsed AML, FLT3 ITD. Was in CR2 and then relapsed. Admitted for samuel l & treatment. 24 Hour Events/Current Daily Plan: -Relapsed AML, Flt3: s/p salvage therapy with FLAG-Arlette + Midostaurin and Azacitidine bridge while awaiting SCT. Admitted from OSH with BM Bx on 06/21/17 showing relapsed AML, 90% cell ularity 60% blasts. Peripheral blood Genetrails from 06/30 - PENDING. -Start Arlette + modified Maurizio-C, currently day 4 -Sorafenib Rx sent to specialty pharmacy, insurance authorization/appeal PENDING. -Leukocytosis: secondary to disease, WBC ~30K on admission. Hydrea stopped with initiation of chemotherapy. Now with leukopenia. -Pancytopenia: 2/2 disease. Standard transfusion parameters. Transfuse 1 unit PRBCs & PPH t mayra. -Coagulopathy: with prolonged INR. Vit K x3 days (07/02-07/04) -Risk for TLS: No e/o active tumor lysis. Continued Allopurinol & MIVF. Stopped allopurinol 07/04 given pancytopenia & decreased r/o TLS. -SIRS with fever: noted on 06/29 with tachycardia, tachypnea, and flushed appearance. Afebril e at the time, however spiked a fever on 07/01. Localizing sx include pleuritic pain & abdomi nal pain. Bld cx NGTD. CTA 06/29 shows left pleural effusion and adjacent atelectasis, no PE or consolidations. CT abd/pelvis 06/29 shows uncomplicated proctitis, HSM with scattered area s of likely AML infiltration, extramedullary hematopoiesis or microabscesses. -Continues on Zosyn. -Abdominal pain: multifactorial 2/2 constipation, uncomplicated proctitis & HSM. Reported p ain across abdomen including bilateral flank pain L>R. Now improved. -Fentanyl IV, Oxycodone PO prn pain -Transaminitis: Without hyperbilirubinemia. Likely 2/2 Idarubicin & likely AML infiltrates in liver responding to chemo. Monitor daily labs. -Lytes: standard repletion parameters. No electrolyte replacements required today. -FVO: 2/2 aggressive IV hydration for chemo. MIVF 100 ml/hr--> 50 ml/hr. Lasix 20 mg IV x 1 on 07/03 & 07/04 Subjective: Feels better this morning, abdominal pain stable to improving. Still feels sw ollen today. Has been walking the hallways. Visiting with family. Objective: Last Vitals: BP 144/80 | Pulse 89 | Temp 36.4 C (97.5 F) | RR 16 | Ht 1.59 m (5' 2.6") | Wt 89.1 kg (196 lb 6.9 oz) | SpO2 98% | BMI 35.24 kg/(m^2) 24 Hour Vital Min/Max: Systolic (24hrs), Av , Min:102 , Max:144 Diastolic (24hrs), Av, Min:54, Max:90 Pulse Min: 76 Max: 104 Temp Min: 36 C (96.8 F) Max: 36.8 C (98.2 F) Resp Min: 16 Max: 18 SpO2 Min: 95 % Max: 99 % Intake/Output Summary (Last 24 hours) at 07/04/17 1306 Last data filed at 07/04/17 1131 Gross per 24 hour Intake 4895 ml Output 6200 ml Net -1305 ml Physical Exam: General: This is a female in no acute distress. Sitting up in recliner. HEENT: PERRL. Sclerae anicteric. Mucosa pink and moist without erythema or exudate. Mild facial flushing. Skin: No rash, lesions noted. Chest: Lungs mildly diminished to auscultation bilat. CV: RRR, no murmurs. Abdomen: S/NT/ND with NABS. No HSM appreciated. Extremities: Pulses strong and equal bilaterally. No c/c/BLE with petechiae & mild non pi tting edema. NeuroPsych: Alert and oriented x 3. Grossly nonfocal exam. CVC: RUE PICC site without inflammation or induration. C/D/I Laboratory Results: Recent Labs 07/01/17 2318 07/02/17 2336 07/03/17 0503 07/04/17 0040 NA 137 < > 137 138 138 K 4.6 < > 4.2 4.3 4.6 CL 102 < > 102 104 103 BICARB 26 < > 23 25 28 BUN 12 < > 15 15 15 CR 0.51* < > 0.42* 0.46* 0.40* GLU 180* < > 163* 173* 182* CA 8.3* < > 7.9* 7.8* 8.0* AST 51* -- 51* -- 294* ALT 29 -- 27 -- 180* AP 179* -- 156* -- 158* TBILI 0.3 -- 0.5 -- 0.8 TP 5.8* -- 5.7* -- 5.6* ALB 2.7* -- 2.8* -- 2.6* < > = values in this interval not displayed. Recent Labs 07/01/17 2318 07/02/17 2336 07/03/17 0503 07/04/17 0040 WBC 17.35* < > 3.52 1.91* 0.55* RBC 2.47* < > 2.09* 2.11* 2.23* HB 7.4* < > 6.4* 6.5* 6.7* HCT 22.8* < > 19.2* 19.4* 19.9* PLT 12* < > 16* 14* 7* NEUTROPERC 13.2* -- 25.7* -- 32.5* LYMPHPERC 6.1* -- 5.3* -- 5.0* MONOPERC 0.9* -- 0.9* -- 10.0* BASOPERC 0.0 -- 0.0 -- 0.0 EOSPERC 0.0* -- 0.0* -- 0.0* < > = values in this interval not displayed. Meds: Reviewed on rounds, see current MAR for medication list SUMMARY OF PATIENT'S HOSPITALIZATION History of Present Illness: (from H&P) Rhea Hutchison is a 51-year-old woman with a history of COPD, depression, hypothyroidism, and AML diagnosed in late 2015 after she presented with pleuritic chest pain and shortness of br eath in addition to profound leukocytosis. Her disease was initially managed with 7+3+ Dasa tinib, course gated by neutropenic fevers, C. difficile, nodular groundglass opacities sudeep rning for invasive fungal infection (although galactomannan negative), treated with Isavucon azole -> Voriconazole. She was reinduced with Cytarabine and entered CR1. She subsequently relapsed in February 2017 started on FLAG-Arlette salvage-->CR2. Her course was subsequently c omplicated by bacterial pneumonia, otherwise recovered well Patient presents as a transfer from outside hospital ([facility]) where she pres ented with body aches and profound fatigue, anemic with new leukocytosis. Repeat bone marro w biopsy concerning for relapsed AML (blasts positive for CD 117, CD33). In the interim sin ce her initial admission, the patient endorses development of new new acute onset pleuritic left-sided chest pain. She states that this chest pain is stabbing, 5-6 out of 10 in intens ity. It is accompanied by a degree of resting dyspnea. Patient also endorses nagging cough productive of white/yellow sputum of approximately 1 week's duration. She denies constitut ional symptoms including fevers, chills, night sweats. She denies new palpitations. She de nies new oral lesions or odynophagia. She does endorse a degree of ongoing nausea but state s that that is baseline for her. She denies emesis. Endorses a degree of constipation. De nies deep new complaints. She does endorse a developing petechial rash over bilateral lo wer extremities, as well as her upper back. She denies new adenopathy. Hospitalization History: Hematology: #Relapsed Flt3 AML Pertinent Diagnostics: -BM Bx 06/21/17 ([facility] [id number]): -Results: 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 myelogenous leukemia (60%); Blasts positive for CD117 and CD 33, negative for CD34, CD71, CD61, CD3 and PAX-5. -Cytogenetics: Normal -Genetrails: NPM1, DNMT3A, NRAS, TET2, FLT3 TKD mutations -PB flow and GeneTrails 06/30/17: -Flow: Recurrent acute myeloid leukemia (87% blasts) -GeneTrails: PENDING Treatment -Chemotherapy regimen: Arlette + Maurizio-C + Sorafenib, started 07/01/17 -Idarubicin 12 mg/m2 daily x 3 days -Cytarabine 1500 mg/m2 CI IV daily x 4 days. -Sorafenib 400 mg daily -Chemo Day: 4 Patient is a candidate for transplant based on Dx and prognostic feature. [facility] #Pancytopenia: -See supportive care #Coagulopathy: with prolonged INR. -Vit K x3 days (07/02-07/04) #Supportive Care: Growth factor: no growth factors required at this time Labs: Continue to check CBC daily, q6hrs with TLS labs, now daily labs Transfusion parameters: -Transfuse PRBCs for HCT <21% if asymptomatic OR <24% if symptomatic -Transfuse PPH for platelet count <10,000 sooner PRN s/s bleeding. Cardiovascular: Prechemo TTE on 06/29/17 shows EF of 65-70% #Hx of Hypertension: continues on home anti-hypertensives -Amlodipine 10 mg daily -Lisinopril 5 mg daily Pulmonary: #COPD: continues on home inhalers -Spiriva 18 mcg daily -Albuterol PRN GI: #Abdominal pain: multifactorial, likely 2/2 constipation, uncomplicated proctitis & HSM. Pt c/o pain across abdomen including bilateral flank pain L>R. CT abd/pelvis 06/29 - uncomplica sharon proctitis, hepatosplenomegaly and stools n rectum. -Bowel regimen: Senna BID; MOM, Miralax, and Lactulose PRN -Fentanyl IV, Oxycodone PO prn pain /Renal: #Overactive Bladder, chronic issue -Oxybutynin CR 15 mg daily Neuro/Psych: #Depression/Anxiety -Cymbalta 90 mg daily -Lorazepam PRN for anxiety Endocrine: #Hypothyroidism: -Synthroid 37.5 mcg daily Infectious Disease: #SIRS with fever: noted on 06/29 with tachycardia, tachypnea, and flushed appearance. No feve rs at that time, however she did eventually spike a fever on 07/01. Localizing sx include ple uritic pain & abdominal pain. Bld cx with NGTD. CTA chest 06/29 shows left pleural effusion a nd adjacent atelectasis, no PE or consolidations. CT abd/pelvis 06/29 shows uncomplicated pro ctitis, HSM with scattered areas of likely AML infiltration, extramedullary hematopoiesis or microabscesses. -Zosyn (06/29 - ) #Prophylaxis: Bacterial: As above Fungal: Reports using marijuana, risk for fungal infection. Started Posaconazole 07/04 after chemo. Viral: Acyclovir PCP: Not indicated Fluid/Nutrition/Lytes: #Nutrition: Current diet -- Regular No Felisha's yogurt or Kefir. #Fluid: NS at 100 mL/hr--> 50 ml/hr as of 07/03 d/t FVO #Lytes: -Continue to check chemistries q6hrs TLS labs, now daily -Replace per supportive care protocol. Disposition: TBD. Anticipate 4-6 week hospitalization. ISIDRO Rod [facility] [id number] [facility] Mailcode: [id number] [place] [address] Pepe Chavis MD - 07/04/2017 11:43 AM PSTFormatting of this note may be diffe rent from the original. 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 Was in CR2 and then relapsed. Would like to pursue chemotherapy. June 21, 2017 ([facility] [id number]); Hypercellular marrow (90%) with relap sed acute myelogenous leukemia (60%); Blasts positive for CD117 and CD 33, negative for CD34 , CD71, CD61, CD3 and PAX-5. I rounded today, 07/04/17, in conjunction with the Advanced Practice Provider. I saw the patient, reviewed the history and relevant studies and developed an assessment an d plan. Subjective/Objective: feeling better. ABd pain improved. Breathing is better. Tolerating ch emo well. ROS otherwise negative Summary of day's events and plan: day 4 of arlette + cytarabine + sorefenib (appealed to [employer]) - WBC now <1 with IV chemo - volume overload -> fluids at 50ml/hr -> give another lasix x1 -> stop IV fluids after cyt arabine complete - pleural effusion seems improved on exam -> repeat CXR after chemo - no e/o TLS -> stop allopurinol - genetrails on peripheral blood pending (new mutations?) - HSM likely from disease ->chemo appears to be helping pain -> bump in LFTs from disease ? -> monitor - zosyn for proctitis/pain and fevers - acyclovir ppx - add posa ppx now that anthracycline complete Please see the Advanced Practice Provider documentation from today for the details regardin g the assessment and plan. Patients Hospital Problem List: Active Hospital Problems 1) COPD (chronic obstructive pulmonary disease) (HCC) 2) Anxiety and depression 3) Acute myeloid leukemia not having achieved remission (HCC) 4) Learning disability 5) Rash of face 6) Neutropenic fever (HCC) 7) Pancytopenia due to antineoplastic chemotherapy (HCC) 8) Transaminitis 9) Hepatosplenomegaly 10) Pleural effusion Ht 1.59 m (5' 2.6"), Wt 89.1 kg (196 lb 6.9 oz), BP 115/70, Pulse 83, Temperature 36.4 C (97.5 F), RR 16, SpO2 95%, BMI 35.24 kg/(m^2). Focused Exam: still with some facial erythema, NAD, appears more comfortable, OP clear, CTA B with less dullness on L side, abd soft, 1+ LE edema Intake/Output Summary (Last 24 hours) at 07/04/17 1143 Last data filed at 07/04/17 1131 Gross per 24 hour Intake 4795 ml Output 6700 ml Net -1905 ml Recent Labs 07/01/17231707/02/17 23307/03/17 0503 07/04/17 0040 NA 137 < > 137 138 138 K 4.6 < > 4.2 4.3 4.6 CL 102 < > 102 104 103 BICARB 26 < > 23 25 28 BUN 12 < > 15 15 15 CR 0.51* < > 0.42* 0.46* 0.40* GLU 180* < > 163* 173* 182* CA 8.3* < > 7.9* 7.8* 8.0* AST 51* -- 51* -- 294* ALT 29 -- 27 -- 180* AP 179* -- 156* -- 158* TBILI 0.3 -- 0.5 -- 0.8 TP 5.8* -- 5.7* -- 5.6* ALB 2.7* -- 2.8* -- 2.6* < > = values in this interval not displayed. Recent Labs 07/01/17231707/02/17233507/03/17 0503 07/04/17 0040 WBC 17.35* < > 3.52 1.91* 0.55* RBC 2.47* < > 2.09* 2.11* 2.23* HB 7.4* < > 6.4* 6.5* 6.7* HCT 22.8* < > 19.2* 19.4* 19.9* PLT 12* < > 16* 14* 7* NEUTROPERC 13.2* -- 25.7* -- 32.5* LYMPHPERC 6.1* -- 5.3* -- 5.0* MONOPERC 0.9* -- 0.9* -- 10.0* BASOPERC 0.0 -- 0.0 -- 0.0 EOSPERC 0.0* -- 0.0* -- 0.0* < > = values in this interval not displayed. I spent 35 minutes including chart review and discussion with the NICOLE. Greater than >50% of time spent in direct counseling and coordination of care including discussion of chemo, jose david p in WBC, fluids, blood counts, transfusions and plan. Sarah Katz, [employer] - 07/03/2017 3:35 PM PSTFormatting of this note may be different from the original. Daily NICOLE Note - Chemotherapy Admit Center for Hematologic Malignancies Attending: Pepe Chavis MD [facility] Physician: Pepe Chavis MD Local Oncologist: Daniel Patterson MD PCP: Saurav Small NP Date of Admission: 06/28/17 Hematologic Malignancy: AML Reason for admission: Relapsed AML, transfer from OSH ID: 51 yo woman with relapsed AML, FLT3 ITD. Was in CR2 and then relapsed. Admitted for samuel l & treatment. 24 Hour Events/Current Daily Plan: -Relapsed AML, Flt3: s/p salvage therapy with FLAG-Arlette + Midostaurin and Azacitidine bridge while awaiting SCT. Admitted from OSH with BM Bx on 06/21/17 showing relapsed AML, 90% cell ularity 60% blasts. Peripheral blood Genetrails from 06/30 - PENDING. -Start Arlette + modified Maurizio-C, currently day 3 -Sorafenib Rx sent to specialty pharmacy, insurance authorization/appeal PENDING. -Leukocytosis: secondary to disease, WBC ~30K on admission. Hydrea stopped with initiation of chemotherapy. Now with leukopenia. -Pancytopenia: 2/2 disease. Standard transfusion parameters. Transfuse 1 unit PRBCs today. -Coagulopathy: with prolonged INR. Vit K x3 days (07/02-07/04) -Risk for TLS: No e/o active tumor lysis. Continue Allopurinol & MIVF. Checked TLS labs q6h rs, now daily labs given pancytopenia & decreased r/o TLS. -SIRS with fever: noted on 06/29 with tachycardia, tachypnea, and flushed appearance. Afebril e at the time, however spiked a fever on 07/01. Localizing sx include pleuritic pain & abdomi nal pain. Bld cx NGTD. CTA 06/29 shows left pleural effusion and adjacent atelectasis, no PE or consolidations. CT abd/pelvis 06/29 shows uncomplicated proctitis, HSM with scattered area s of likely AML infiltration, extramedullary hematopoiesis or microabscesses. -Continues on Zosyn. -Abdominal pain: multifactorial 2/2 constipation, uncomplicated proctitis & HSM. Reported p ain across abdomen including bilateral flank pain L>R. Now improved. -Fentanyl IV, Oxycodone PO prn pain -Lytes: standard repletion parameters. No electrolyte replacements required today. -FVO: 2/2 aggressive IV hydration for chemo. MIVF 100 ml/hr--> 50 ml/hr. Lasix 20 mg IV x 1 on 07/03 Subjective: Feels better this morning, abdominal pain improved. Feels swollen today. Has been walking the hallways. Objective: Last Vitals: BP 130/83 | Pulse 88 | Temp 36.3 C (97.3 F) | RR 18 | Ht 1.59 m (5' 2.6") | Wt 92 kg (202 lb 13.2 oz) | SpO2 97% | BMI 36.39 kg/(m^2) 24 Hour Vital Min/Max: Systolic (24hrs), Av , Min:105 , Max:155 Diastolic (24hrs), Av, Min:65, Max:100 Pulse Min: 88 Max: 98 Temp Min: 36.3 C (97.3 F) Max: 36.7 C (98.1 F) Resp Min: 16 Max: 18 SpO2 Min: 96 % Max: 100 % Intake/Output Summary (Last 24 hours) at 07/03/17 1535 Last data filed at 07/03/17 1400 Gross per 24 hour Intake 7137.43 ml Output 6750 ml Net 387.43 ml Physical Exam: General: This is a female in no acute distress. Sitting up in recliner. HEENT: PERRL. Sclerae anicteric. Mucosa pink and moist without erythema or exudate. Mild facial flushing. Skin: No rash, lesions noted. Chest: Lungs mildly diminished to auscultation bilat. CV: RRR, no murmurs. Abdomen: S/NT/ND with NABS. No HSM appreciated. Extremities: Pulses strong and equal bilaterally. No c/c/BLE with petechiae & mild non pi tting edema. NeuroPsych: Alert and oriented x 3. Grossly nonfocal exam. CVC: RUE PICC site without inflammation or induration. Laboratory Results: Recent Labs 06/30/17229907/01/17231707/02/17183807/02/17233507/03/17 0503 NA 134* < > 137 < > 134* 137 138 K 3.6 < > 4.6 < > 4.1 4.2 4.3 CL 96* < > 102 < > 100 102 104 BICARB 31 < > 26 < > 26 23 25 BUN 8 < > 12 < > 16 15 15 CR 0.48* < > 0.51* < > 0.48* 0.42* 0.46* GLU 131* < > 180* < > 145* 163* 173* CA 7.9* < > 8.3* < > 8.0* 7.9* 7.8* AST 48* -- 51* -- -- 51* -- ALT 32 -- 29 -- -- 27 -- AP 172* -- 179* -- -- 156* -- TBILI 0.5 -- 0.3 -- -- 0.5 -- TP 5.8* -- 5.8* -- -- 5.7* -- ALB 2.8* -- 2.7* -- -- 2.8* -- < > = values in this interval not displayed. Recent Labs 06/30/17229907/01/17231707/02/17183807/02/17233507/03/17 0503 WBC 34.73* < > 17.35* < > 7.50 3.52 1.91* RBC 2.37* < > 2.47* < > 2.34* 2.09* 2.11* HB 7.2* < > 7.4* < > 7.0* 6.4* 6.5* HCT 21.5* < > 22.8* < > 21.4* 19.2* 19.4* PLT 18* < > 12* < > 21* 16* 14* NEUTROPERC 3.7* -- 13.2* -- -- 25.7* -- LYMPHPERC 2.8* -- 6.1* -- -- 5.3* -- MONOPERC 5.5 -- 0.9* -- -- 0.9* -- BASOPERC 0.0 -- 0.0 -- -- 0.0 -- EOSPERC 0.0* -- 0.0* -- -- 0.0* -- < > = values in this interval not displayed. Meds: Reviewed on rounds, see current MAR for medication list SUMMARY OF PATIENT'S HOSPITALIZATION History of Present Illness: (from H&P) Rhea Hutchison is a 51-year-old woman with a history of COPD, depression, hypothyroidism, and AML diagnosed in late 2015 after she presented with pleuritic chest pain and shortness of br eath in addition to profound leukocytosis. Her disease was initially managed with 7+3+ Dasa tinib, course gated by neutropenic fevers, C. difficile, nodular groundglass opacities sudeep rning for invasive fungal infection (although galactomannan negative), treated with Isavucon azole -> Voriconazole. She was reinduced with Cytarabine and entered CR1. She subsequently relapsed in February 2017 started on FLAG-Arlette salvage-->CR2. Her course was subsequently c omplicated by bacterial pneumonia, otherwise recovered well Patient presents as a transfer from outside hospital ([facility]) where she pres ented with body aches and profound fatigue, anemic with new leukocytosis. Repeat bone marro w biopsy concerning for relapsed AML (blasts positive for CD 117, CD33). In the interim sin ce her initial admission, the patient endorses development of new new acute onset pleuritic left-sided chest pain. She states that this chest pain is stabbing, 5-6 out of 10 in intens ity. It is accompanied by a degree of resting dyspnea. Patient also endorses nagging cough productive of white/yellow sputum of approximately 1 week's duration. She denies constitut ional symptoms including fevers, chills, night sweats. She denies new palpitations. She de nies new oral lesions or odynophagia. She does endorse a degree of ongoing nausea but state s that that is baseline for her. She denies emesis. Endorses a degree of constipation. De nies deep new complaints. She does endorse a developing petechial rash over bilateral lo wer extremities, as well as her upper back. She denies new adenopathy. Hospitalization History: Hematology: #Relapsed Flt3 AML Pertinent Diagnostics: -BM Bx 06/21/17 ([facility] [id number]): -Results: 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 myelogenous leukemia (60%); Blasts positive for CD117 and CD 33, negative for CD34, CD71, CD61, CD3 and PAX-5. -Cytogenetics: Normal -Genetrails: NPM1, DNMT3A, NRAS, TET2, FLT3 TKD mutations -PB flow and GeneTrails 06/30/17: -Flow: Recurrent acute myeloid leukemia (87% blasts) -GeneTrails: PENDING Treatment -Chemotherapy regimen: Arlette + Maurizio-C + Sorafenib, started 07/01/17 -Idarubicin 12 mg/m2 daily x 3 days -Cytarabine 1500 mg/m2 CI IV daily x 4 days. -Sorafenib 400 mg daily -Chemo Day: 3 Patient is a candidate for transplant based on Dx and prognostic feature. Brother is a m [facility]. #Pancytopenia: -See supportive care #Coagulopathy: with prolonged INR. -Vit K x3 days (07/02-07/04) #Supportive Care: Growth factor: no growth factors required at this time Labs: Continue to check CBC daily, q6hrs with TLS labs, now daily labs Transfusion parameters: -Transfuse PRBCs for HCT <21% if asymptomatic OR <24% if symptomatic -Transfuse PPH for platelet count <10,000 sooner PRN s/s bleeding. Cardiovascular: Prechemo TTE on 06/29/17 shows EF of 65-70% #Hx of Hypertension: continues on home anti-hypertensives -Amlodipine 10 mg daily -Lisinopril 5 mg daily Pulmonary: #COPD: continues on home inhalers -Spiriva 18 mcg daily -Albuterol PRN GI: #Abdominal pain: multifactorial, likely 2/2 constipation, uncomplicated proctitis & HSM. Pt c/o pain across abdomen including bilateral flank pain L>R. CT abd/pelvis 06/29 - uncomplica sharon proctitis, hepatosplenomegaly and stools n rectum. -Bowel regimen: Senna BID; MOM, Miralax, and Lactulose PRN -Fentanyl IV, Oxycodone PO prn pain /Renal: #Overactive Bladder, chronic issue -Oxybutynin CR 15 mg daily Neuro/Psych: #Depression/Anxiety -Cymbalta 90 mg daily -Lorazepam PRN for anxiety Endocrine: #Hypothyroidism: -Synthroid 37.5 mcg daily Infectious Disease: #SIRS with fever: noted on 06/29 with tachycardia, tachypnea, and flushed appearance. No feve rs at that time, however she did eventually spike a fever on 07/01. Localizing sx include ple uritic pain & abdominal pain. Bld cx with NGTD. CTA chest 06/29 shows left pleural effusion a nd adjacent atelectasis, no PE or consolidations. CT abd/pelvis 06/29 shows uncomplicated pro ctitis, HSM with scattered areas of likely AML infiltration, extramedullary hematopoiesis or microabscesses. -Zosyn (06/29 - ) #Prophylaxis: Bacterial: As above Fungal: Reports using marijuana, risk for fungal infection. Consider Marie while on chemo, t hen start Posaconazole after chemo. Viral: Acyclovir PCP: Not indicated Fluid/Nutrition/Lytes: #Nutrition: Current diet -- Regular No Felisha's yogurt or Kefir. #Fluid: NS at 100 mL/hr--> 50 ml/hr as of 07/03 d/t FVO #Lytes: -Continue to check chemistries q6hrs TLS labs, now daily -Replace per supportive care protocol. Disposition: TBD. Anticipate 4-6 week hospitalization. ISIDRO Rod [facility] [address] [id number] [facility] Mailcode: [facility] [place] [address] Twmjn, Elie A, MD - 07/03/2017 11:40 AM PSTFormatting of this note may be diffe rent from the original. 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 Was in CR2 and then relapsed. Would like to pursue chemotherapy. June 21, 2017 ([facility] [id number]); Hypercellular marrow (90%) with relap sed acute myelogenous leukemia (60%); Blasts positive for CD117 and CD 33, negative for CD34 , CD71, CD61, CD3 and PAX-5. I rounded today, 07/03/17, in conjunction with the Advanced Practice Provider. I saw the patient, reviewed the history and relevant studies and developed an assessment an d plan. Subjective/Objective: feeling a little better. Abd pain improved but feeling more swollen o verall. ROS otherwise negative Summary of day's events and plan: day 3 of arlette + cytarabine + sorefenib (appealed to [employer]) - WBC dropping rapidly with IV chemo - increased edema -> drop fluids to 50ml/hr -> lasix x1 - no e/o TLS - cont allopurinol - genetrails on peripheral blood pending - HSM likely from disease -> chemo appears to be helping pain - zosyn for proctitis/pain and fevers - acyclovir ppx - add fungal ppx after anthracycline complete Please see the Advanced Practice Provider documentation from today for the details regardin g the assessment and plan. Active Problems: Patients Hospital Problem List: Active Hospital Problems 1) COPD (chronic obstructive pulmonary disease) (HCC) 2) Anxiety and depression 3) Acute myeloid leukemia not having achieved remission (HCC) 4) Learning disability 5) Rash of face 6) Neutropenic fever (HCC) 7) Pancytopenia due to antineoplastic chemotherapy (HCC) Ht 1.59 m (5' 2.6"), Wt 92 kg (202 lb 13.2 oz), BP 155/100, Pulse 91, Temperature 36.4 C (97.5 F), RR 16, SpO2 100%, BMI 36.39 kg/(m^2). Focused Exam: facial erythema, nad, op clear, cta b, rrr no m/r/g, soft abd, 1+ edema, mor chiae Intake/Output Summary (Last 24 hours) at 07/03/17 1140 Last data filed at 07/03/17 1045 Gross per 24 hour Intake 7864.5 ml Output 5555 ml Net 2309.5 ml Recent Labs 06/30/17 2300 07/01/17 2318 07/02/17 1839 07/02/17 2336 07/03/17 0503 NA 134* < > 137 < > 134* 137 138 K 3.6 < > 4.6 < > 4.1 4.2 4.3 CL 96* < > 102 < > 100 102 104 BICARB 31 < > 26 < > 26 23 25 BUN 8 < > 12 < > 16 15 15 CR 0.48* < > 0.51* < > 0.48* 0.42* 0.46* GLU 131* < > 180* < > 145* 163* 173* CA 7.9* < > 8.3* < > 8.0* 7.9* 7.8* AST 48* -- 51* -- -- 51* -- ALT 32 -- 29 -- -- 27 -- AP 172* -- 179* -- -- 156* -- TBILI 0.5 -- 0.3 -- -- 0.5 -- TP 5.8* -- 5.8* -- -- 5.7* -- ALB 2.8* -- 2.7* -- -- 2.8* -- < > = values in this interval not displayed. Recent Labs 06/30/17 2300 07/01/17 2318 07/02/17 1839 07/02/17 2336 07/03/17 0503 WBC 34.73* < > 17.35* < > 7.50 3.52 1.91* RBC 2.37* < > 2.47* < > 2.34* 2.09* 2.11* HB 7.2* < > 7.4* < > 7.0* 6.4* 6.5* HCT 21.5* < > 22.8* < > 21.4* 19.2* 19.4* PLT 18* < > 12* < > 21* 16* 14* NEUTROPERC 3.7* -- 13.2* -- -- 25.7* -- LYMPHPERC 2.8* -- 6.1* -- -- 5.3* -- MONOPERC 5.5 -- 0.9* -- -- 0.9* -- BASOPERC 0.0 -- 0.0 -- -- 0.0 -- EOSPERC 0.0* -- 0.0* -- -- 0.0* -- < > = values in this interval not displayed. I spent 35 minutes including chart review and discussion with the NICOLE. Greater than >50% of time spent in direct counseling and coordination of care including discussion of chemo, juan a e effects, good vs bad WBC, edema, fluids and plan. Clarke Aguirre, [employer] - 07/02/2017 2:08 PM PSTFormatting of this note may be different fro m the original. Daily NICOLE Note - Chemotherapy Admit Center for Hematologic Malignancies Attending: Pepe Chavis MD [facility] Physician: Pepe Chavis MD Local Oncologist: Daniel Patterson MD PCP: Saurav Small NP Date of Admission: 06/28/17 Hematologic Malignancy: AML Reason for admission: Relapsed AML, transfer from OSH ID: 51 yo woman with relapsed AML, FLT3 ITD. Was in CR2 and then relapsed. Admitted for samuel l & treatment. 24 Hour Events/Current Daily Plan: -Relapsed AML, Flt3: s/p salvage therapy with FLAG-Arlette + Midostaurin and Azacitidine bridge while awaiting SCT. Admitted from OSH with BM Bx on 06/21/17 showing relapsed AML, 90% cell ularity 60% blasts. Peripheral blood Genetrails from 06/30 - PENDING. -Start Arlette + modified Maurizio-C, currently day 2. -Sorafenib Rx sent to specialty pharmacy, insurance authorization is PENDING. -Leukocytosis: secondary to disease, WBC ~30K on admission. Hydrea stopped with initiation of chemotherapy. Leukocytosis improving. -Anemia, Thrombocytopenia: 2/2 disease. Standard transfusion parameters. Transfuse 1pph tod ay to reduce risk of spontaneous bleeding. -Coagulopathy: with prolonged INR. Vit K x3 days (07/02-07/04) -Risk for TLS: No e/o active tumor lysis. Continue Allopurinol & MIVF. Checking TLS labs q6 hrs. -SIRS with fever: noted on 06/29 with tachycardia, tachypnea, and flushed appearance. No feve r at that time however she spiked a fever on 07/01. Localizing sx include pleuritic pain & ab dominal pain. Bld cx with NGTD. CTA chest 06/29 shows left pleural effusion and adjacent atel ectasis, no PE or consolidations. CT abd/pelvis 06/29 shows uncomplicated proctitis, HSM with scattered areas of likely AML infiltration, extramedullary hematopoiesis or microabscesses. -Continues on Zosyn. -Abdominal pain: multifactorial 2/2 constipation, uncomplicated proctitis & HSM. Pt c/o alec n across abdomen including bilateral flank pain L>R. Pain now improved. -Fentanyl IV, Oxycodone PO for pain -Lytes: standard repletion parameters. There are no electrolyte replacements required at th is time. Subjective: Feeling much better this morning, abdominal pain improved. Was able to walk y evening and has plans to walk again today. Objective: Last Vitals: BP 138/77 | Pulse 107 | Temp 36.5 C (97.7 F) | RR 16 | Ht 1.59 m (5' 2.6") | Wt 88.6 kg (195 lb 5.2 oz) | SpO2 97% | BMI 35.05 kg/(m^2) 24 Hour Vital Min/Max: Systolic (24hrs), Av , Min:117 , Max:138 Diastolic (24hrs), Av, Min:68, Max:82 Pulse Min: 90 Max: 110 Temp Min: 36.5 C (97.7 F) Max: 38.2 C (100.8 F) Resp Min: 16 Max: 20 SpO2 Min: 92 % Max: 99 % Intake/Output Summary (Last 24 hours) at 07/02/17 1408 Last data filed at 07/02/17 0929 Gross per 24 hour Intake 4235 ml Output 5010 ml Net -775 ml Physical Exam: General: This is a female in no acute distress. Sitting up in recliner. HEENT: PERRL. Sclerae anicteric. Mucosa pink and moist without erythema or exudate. Faci al flushing and erythema. Skin: No rash, lesions noted. Chest: Lungs mildly diminished to auscultation bilat. CV: RRR, no murmurs. Abdomen: S/NT/ND with NABS. No HSM appreciated. Extremities: Pulses strong and equal bilaterally. No c/c/BLE with petechiae. NeuroPsych: Alert and oriented x 3. Grossly nonfocal exam. CVC: RUE PICC site without inflammation or induration. Laboratory Results: Recent Labs 06/29/17 2301 06/30/17 23007/01/17 23107/02/17 0626 07/02/17 1238 NA 133* < > 134* < > 137 137 135* K 3.6 < > 3.6 < > 4.6 4.4 4.1 CL 97 < > 96* < > 102 102 100 BICARB 29 < > 31 < > 26 27 25 BUN 5* < > 8 < > 12 18 17 CR 0.47* < > 0.48* < > 0.51* 0.47* 0.51* GLU 139* < > 131* < > 180* 197* 158* CA 8.2* < > 7.9* < > 8.3* 7.8* 8.0* AST 54* -- 48* -- 51* -- -- ALT 37 -- 32 -- 29 -- -- AP 177* -- 172* -- 179* -- -- TBILI 0.5 -- 0.5 -- 0.3 -- -- TP 6.1* -- 5.8* -- 5.8* -- -- ALB 3.2* -- 2.8* -- 2.7* -- -- < > = values in this interval not displayed. Recent Labs 06/30/17 1226 06/30/17229907/01/17 18107/01/17231707/02/17 06 WBC 38.30* 34.73* < > 23.43* 17.35* 12.38* RBC 2.31* 2.37* < > 2.59* 2.47* 2.33* HB 7.0* 7.2* < > 7.9* 7.4* 7.1* HCT 21.3* 21.5* < > 24.0* 22.8* 21.4* PLT 23* 18* < > 14* 12* 9* NEUTROPERC 5.2* 3.7* -- -- 13.2* -- LYMPHPERC 6.0* 2.8* -- -- 6.1* -- MONOPERC 9.5* 5.5 -- -- 0.9* -- BASOPERC 0.0 0.0 -- -- 0.0 -- EOSPERC 0.0* 0.0* -- -- 0.0* -- < > = values in this interval not displayed. Meds: Reviewed on rounds, see current MAR for medication list SUMMARY OF PATIENT'S HOSPITALIZATION History of Present Illness: (from H&P) Rhea Hutchison is a 51-year-old woman with a history of COPD, depression, hypothyroidism, and AML diagnosed in late 2015 after she presented with pleuritic chest pain and shortness of br eath in addition to profound leukocytosis. Her disease was initially managed with 7+3+ Dasa tinib, course gated by neutropenic fevers, C. difficile, nodular groundglass opacities sudeep rning for invasive fungal infection (although galactomannan negative), treated with Isavucon azole -> Voriconazole. She was reinduced with Cytarabine and entered CR1. She subsequently relapsed in February 2017 started on FLAG-Arlette salvage-->CR2. Her course was subsequently c omplicated by bacterial pneumonia, otherwise recovered well Patient presents as a transfer from outside hospital ([facility]) where she pres ented with body aches and profound fatigue, anemic with new leukocytosis. Repeat bone marro w biopsy concerning for relapsed AML (blasts positive for CD 117, CD33). In the interim sin ce her initial admission, the patient endorses development of new new acute onset pleuritic left-sided chest pain. She states that this chest pain is stabbing, 5-6 out of 10 in intens ity. It is accompanied by a degree of resting dyspnea. Patient also endorses nagging cough productive of white/yellow sputum of approximately 1 week's duration. She denies constitut ional symptoms including fevers, chills, night sweats. She denies new palpitations. She de nies new oral lesions or odynophagia. She does endorse a degree of ongoing nausea but state s that that is baseline for her. She denies emesis. Endorses a degree of constipation. De nies deep new complaints. She does endorse a developing petechial rash over bilateral lo wer extremities, as well as her upper back. She denies new adenopathy. Hospitalization History: Hematology: #Relapsed Flt3 AML Pertinent Diagnostics: -BM Bx 06/21/17 ([facility] [id number]): -Results: 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 myelogenous leukemia (60%); Blasts positive for CD117 and CD 33, negative for CD34, CD71, CD61, CD3 and PAX-5. -Cytogenetics: Normal -Genetrails: NPM1, DNMT3A, NRAS, TET2, FLT3 TKD mutations -PB flow and GeneTrails 06/30/17: -Flow: Recurrent acute myeloid leukemia (87% blasts) -GeneTrails: PENDING Treatment -Chemotherapy regimen: Arlette + Maurizio-C + Sorafenib, started 07/01/17 -Idarubicin 12 mg/m2 daily x 3 days -Cytarabine 1500 mg/m2 CI IV daily x 4 days. -Sorafenib 400 mg daily -Chemo Day: 1 Patient is a candidate for transplant based on Dx and prognostic feature. [facility] #Leukocytosis, Anemia, Thrombocytopenia: -See supportive care #Coagulopathy: with prolonged INR. -Vit K x3 days (07/02-07/04) #Supportive Care: Growth factor: no growth factors required at this time Labs: Continue to check CBC daily, q6hrs with TLS labs Transfusion parameters: -Transfuse PRBCs for HCT <21% if asymptomatic OR <24% if symptomatic -Transfuse PPH for platelet count <10,000 sooner PRN s/s bleeding. Cardiovascular: Prechemo TTE on 06/29/17 shows EF of 65-70% #Hx of Hypertension: continues on home anti-hypertensives -Amlodipine 10 mg daily -Lisinopril 5 mg daily Pulmonary: #COPD: continues on home inhalers -Spiriva 18 mcg daily -Albuterol PRN GI: #Abdominal pain: multifactorial, likely 2/2 constipation, uncomplicated proctitis & HSM. Pt c/o pain across abdomen including bilateral flank pain L>R. CT abd/pelvis 06/29 - uncomplica sharon proctitis, hepatosplenomegaly and stools n rectum. -Bowel regimen: Senna BID; MOM, Miralax, and Lactulose PRN -Fentanyl IV, Oxycodone PO for pain /Renal: #Overactive Bladder, chronic issue -Oxybutynin CR 15 mg daily Neuro/Psych: #Depression/Anxiety -Cymbalta 90 mg daily -Lorazepam PRN for anxiety Endocrine: #Hypothyroidism: -Synthroid 37.5 mcg daily Infectious Disease: #SIRS with fever: noted on 06/29 with tachycardia, tachypnea, and flushed appearance. No feve rs at that time, however she did eventually spike a fever on 07/01. Localizing sx include ple uritic pain & abdominal pain. Bld cx with NGTD. CTA chest 06/29 shows left pleural effusion a nd adjacent atelectasis, no PE or consolidations. CT abd/pelvis 06/29 shows uncomplicated pro ctitis, HSM with scattered areas of likely AML infiltration, extramedullary hematopoiesis or microabscesses. -Zosyn (06/29 - ) #Prophylaxis: Bacterial: As above Fungal: Reports using marijuana, risk for fungal infection. Consider Marie while on chemo, t hen start Posaconazole after chemo. Viral: Acyclovir PCP: Not indicated Fluid/Nutrition/Lytes: #Nutrition: Current diet -- Regular No Felisha's yogurt or Kefir. #Fluid: NS at 100 mL/hr #Lytes: -Continue to check chemistries q6hrs TLS labs -Replace per supportive care protocol. Disposition: TBD. Anticipate 4-6 week hospitalization. ISIDRO LLANES [facility] [id number] [facility] Mailcode: [id number] [place] [address] Pepe Chavis MD - 07/02/2017 10:50 AM PSTFormatting of this note may be different from jl cary. 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 Was in CR2 and then relapsed. Would like to pursue chemotherapy. June 21, 2017 ([facility] [id number]); Hypercellular marrow (90%) with relap sed acute myelogenous leukemia (60%); Blasts positive for CD117 and CD 33, negative for CD34 , CD71, CD61, CD3 and PAX-5. I rounded today, 07/02/17, in conjunction with the Advanced Practice Provider. I saw the patient, reviewed the history and relevant studies and developed an assessment an d plan. Subjective/Objective: feeling better. Abd pain improved. ROS otherwise negative Summary of day's events and plan: day 2 of arlette + cytarabine + sorafenib (still awaiting fro m outside pharmacy) - tolerating IV chemo well -> WBC down - start sorafenib as soon as obtained - off hydrea - monitor for TLS - allopurinol - genetrails on peripheral blood pending - HSM likely from disease -> chemo appears to be helping - constipation resolved - zosyn for proctitis/pain and fevers - acyclovir ppx - add fungal ppx after anthracycline complete Please see the Advanced Practice Provider documentation from today for the details regardin g the assessment and plan. Patients Hospital Problem List: Active Hospital Problems 1) COPD (chronic obstructive pulmonary disease) (HCC) 2) Anxiety and depression 3) Acute myeloid leukemia not having achieved remission (HCC) 4) Learning disability 5) Rash of face 6) Neutropenic fever (HCC) 7) Pancytopenia due to antineoplastic chemotherapy (HCC) Ht 1.59 m (5' 2.6"), Wt 88.6 kg (195 lb 5.2 oz), BP 127/75, Pulse 96, Temperature 36.5 C (97.7 F), RR 16, SpO2 99%, BMI 35.05 kg/(m^2). Focused Exam: nad, facial erythema, op clear, cta b, rrr no m/r/g, soft abd, tr edema Intake/Output Summary (Last 24 hours) at 07/02/17 1050 Last data filed at 07/02/17 0929 Gross per 24 hour Intake 5028.33 ml Output 5365 ml Net -336.67 ml Recent Labs 06/29/17 2301 06/30/17 2300 07/01/17 1819 07/01/17 2318 07/02/17 0626 NA 133* < > 134* < > 134* 137 137 K 3.6 < > 3.6 < > 3.7 4.6 4.4 CL 97 < > 96* < > 97 102 102 BICARB 29 < > 31 < > 29 26 27 BUN 5* < > 8 < > 9 12 18 CR 0.47* < > 0.48* < > 0.45* 0.51* 0.47* GLU 139* < > 131* < > 156* 180* 197* CA 8.2* < > 7.9* < > 8.2* 8.3* 7.8* AST 54* -- 48* -- -- 51* -- ALT 37 -- 32 -- -- 29 -- AP 177* -- 172* -- -- 179* -- TBILI 0.5 -- 0.5 -- -- 0.3 -- TP 6.1* -- 5.8* -- -- 5.8* -- ALB 3.2* -- 2.8* -- -- 2.7* -- < > = values in this interval not displayed. Recent Labs 06/30/17 1226 06/30/17 2300 07/01/17 1819 07/01/17 2318 07/02/17 0626 WBC 38.30* 34.73* < > 23.43* 17.35* 12.38* RBC 2.31* 2.37* < > 2.59* 2.47* 2.33* HB 7.0* 7.2* < > 7.9* 7.4* 7.1* HCT 21.3* 21.5* < > 24.0* 22.8* 21.4* PLT 23* 18* < > 14* 12* 9* NEUTROPERC 5.2* 3.7* -- -- 13.2* -- LYMPHPERC 6.0* 2.8* -- -- 6.1* -- MONOPERC 9.5* 5.5 -- -- 0.9* -- BASOPERC 0.0 0.0 -- -- 0.0 -- EOSPERC 0.0* 0.0* -- -- 0.0* -- < > = values in this interval not displayed. I spent 35 minutes including chart review and discussion with the NICOLE. Greater than >50% of time spent in direct counseling and coordination of care including discussion of chemo, juan a e effects, WBC, fluids, bowels, infx risk, abx, and plan. Clarke Aguirre, [employer] - 07/01/2017 11:16 AM PSTFormatting of this note may be different fro m the original. Daily NICOLE Note - Chemotherapy Admit Center for Hematologic Malignancies Attending: Pepe Chavis MD [facility] Physician: Pepe Chavis MD Local Oncologist: Daniel Patterson MD PCP: Saurav Small NP Date of Admission: 06/28/17 Hematologic Malignancy: AML Reason for admission: Relapsed AML, transfer from [facility] ID: 51 yo woman with relapsed AML, FLT3 ITD. Was in CR2 and then relapsed. Admitted for samuel l & treatment. 24 Hour Events/Current Daily Plan: -Relapsed AML, Flt3: s/p salvage therapy with FLAG-Arlette + Midostaurin and Azacitidine bridge while awaiting SCT. Admitted from OSH with BM Bx on 06/21/17 showing relapsed AML, 90% cell ularity 60% blasts. Peripheral blood flow & Genetrails from 06/30 - PENDING. -Sorafenib Rx sent to specialty pharmacy, dispense PENDING. -Start Arlette + modified Maurizio-C today. -Leukocytosis: WBC ~30K on admission. Secondary to disease. On Hydrea to reduce tumor burde n, will stop with starting of chemotherapy. -Anemia, Thrombocytopenia: 2/2 disease. Standard transfusion parameters. There is no blood product support required at this time. -Risk for TLS: No e/o active tumor lysis. Continue Allopurinol & MIVF. Checking TLS labs q1 2hrs. -SIRS: noted on 06/29 with tachycardia & tachypnea with flushed appearance. NO FEVERS. Loca lizing sx include pleuritic pain & abdominal pain. Bld cx 06/29 with NGTD. CTA chest 06/29 show s left pleural effusion and adjacent atelectasis, no PE or consolidations. CT abd/pelvis 06/29 shows uncomplicated proctitis, HSM with scattered areas of likely AML infiltration, extram edullary hematopoiesis or microabscesses. -Continues on Zosyn. -Abdominal pain: multifactorial 2/2 constipation, uncomplicated proctitis & HSM. Pt c/o alec n across abdomen including bilateral flank pain L>R. 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 -Bowel regimen: Miralax and Lactulose daily, Senna BID -Fentanyl IV, Oxycodone PO for pain -Lytes: standard repletion parameters. Mild hyponatremia likely 2/2 dehydration. Continue M IVF Subjective: Acute pain to abdomen persists, also with pleuritic pain with deep breaths. A nxious to get chemo started. Objective: Last Vitals: BP 121/69 | Pulse 104 | Temp 36.8 C (98.2 F) | RR 20 | Ht 1.59 m (5' 2.6") | Wt 91.6 kg (201 lb 15.1 oz) | SpO2 97% | BMI 36.23 kg/(m^2) 24 Hour Vital Min/Max: Systolic (24hrs), Av , Min:112 , Max:134 Diastolic (24hrs), Av, Min:68, Max:73 Pulse Min: 94 Max: 112 Temp Min: 36.8 C (98.2 F) Max: 37.4 C (99.3 F) Resp Min: 18 Max: 22 SpO2 Min: 90 % Max: 97 % Intake/Output Summary (Last 24 hours) at 07/01/17 1116 Last data filed at 07/01/17 1046 Gross per 24 hour Intake 3385 ml Output 1400 ml Net 1985 ml Physical Exam: General: This is a female in no acute distress. Sitting up in recliner. HEENT: PERRL. Sclerae anicteric. Mucosa pink and moist without erythema or exudate. Faci al flushing and erythema. Tongue with thrush. Skin: No rash, lesions noted. Chest: Lungs mildly diminished to auscultation bilat. CV: RRR, no murmurs. Abdomen: S/NT/ND with NABS. No HSM appreciated. Extremities: Pulses strong and equal bilaterally. No c/c/BLE with petechiae. NeuroPsych: Alert and oriented x 3. Grossly nonfocal exam. CVC: RUE PICC site without inflammation or induration. Laboratory Results: Recent Labs 06/28/17 2230 06/29/17 2301 06/30/17 1136 06/30/17 2300 NA 135* < > 133* 133* 134* K 3.3* < > 3.6 3.5 3.6 CL 99 < > 97 96* 96* BICARB 29 < > 29 31 31 BUN 5* < > 5* 7 8 CR 0.60 < > 0.47* 0.47* 0.48* GLU 108* < > 139* 139* 131* CA 8.1* < > 8.2* 7.8* 7.9* AST 54* -- 54* -- 48* ALT 44 -- 37 -- 32 AP 160* -- 177* -- 172* TBILI 0.4 -- 0.5 -- 0.5 TP 6.0* -- 6.1* -- 5.8* ALB 3.4* -- 3.2* -- 2.8* < > = values in this interval not displayed. Recent Labs 06/29/17 2301 06/30/17 1226 06/30/17 2300 WBC 38.37* 38.30* 34.73* RBC 2.62* 2.31* 2.37* HB 7.9* 7.0* 7.2* HCT 23.8* 21.3* 21.5* PLT 10* 23* 18* NEUTROPERC 7.8* 5.2* 3.7* LYMPHPERC 2.6* 6.0* 2.8* MONOPERC 3.4* 9.5* 5.5 BASOPERC 0.0 0.0 0.0 EOSPERC 0.0* 0.0* 0.0* Meds: Reviewed on rounds, see current MAR for medication list SUMMARY OF PATIENT'S HOSPITALIZATION History of Present Illness: (from H&P) Rhea Hutchison is a 51-year-old woman with a history of COPD, depression, hypothyroidism, and AML diagnosed in late 2015 after she presented with pleuritic chest pain and shortness of br eath in addition to profound leukocytosis. Her disease was initially managed with 7+3+ Dasa tinib, course gated by neutropenic fevers, C. difficile, nodular groundglass opacities sudeep rning for invasive fungal infection (although galactomannan negative), treated with Isavucon azole -> Voriconazole. She was reinduced with Cytarabine and entered CR1. She subsequently relapsed in February 2017 started on FLAG-Arlette salvage-->CR2. Her course was subsequently c omplicated by bacterial pneumonia, otherwise recovered well Patient presents as a transfer from outside hospital ([facility]) where she pres ented with body aches and profound fatigue, anemic with new leukocytosis. Repeat bone marro w biopsy concerning for relapsed AML (blasts positive for CD 117, CD33). In the interim sin ce her initial admission, the patient endorses development of new new acute onset pleuritic left-sided chest pain. She states that this chest pain is stabbing, 5-6 out of 10 in intens ity. It is accompanied by a degree of resting dyspnea. Patient also endorses nagging cough productive of white/yellow sputum of approximately 1 week's duration. She denies constitut ional symptoms including fevers, chills, night sweats. She denies new palpitations. She de nies new oral lesions or odynophagia. She does endorse a degree of ongoing nausea but state s that that is baseline for her. She denies emesis. Endorses a degree of constipation. De nies deep new complaints. She does endorse a developing petechial rash over bilateral lo wer extremities, as well as her upper back. She denies new adenopathy. Hospitalization History: Hematology: #Relapsed Flt3 AML Pertinent Diagnostics: -BM Bx 06/21/17 ([facility] [id number]): -Results: 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 myelogenous leukemia (60%); Blasts positive for CD117 and CD 33, negative for CD34, CD71, CD61, CD3 and PAX-5. -Cytogenetics: Normal -Genetrails: NPM1, DNMT3A, NRAS, TET2, FLT3 TKD mutations -PB flow and GeneTrails 06/30/17: PENDING Treatment -Chemotherapy regimen: Arlette + Maurizio-C + Sorafenib, started 07/01/17 -Idarubicin 12 mg/m2 daily x 3 days -Cytarabine 1500 mg/m2 CI IV daily x 4 days. -Sorafenib 400 mg daily -Chemo Day: 1 Patient is a candidate for transplant based on Dx and prognostic feature. [facility] #Leukocytosis, Anemia, Thrombocytopenia: -See supportive care #Supportive Care: Growth factor: no growth factors required at this time Labs: Continue to check CBC daily Transfusion parameters: -Transfuse PRBCs for HCT <21% if asymptomatic OR <24% if symptomatic -Transfuse PPH for platelet count <10,000 sooner PRN s/s bleeding. Cardiovascular: Prechemo TTE on 06/29/17 shows EF of 65-70% #Hx of Hypertension: continues on home anti-hypertensives -Amlodipine 10 mg daily -Lisinopril 5 mg daily Pulmonary: #COPD: continues on home inhalers -Spiriva 18 mcg daily -Albuterol PRN GI: #Abdominal pain: multifactorial, likely 2/2 constipation, uncomplicated proctitis & HSM. Pt c/o pain across abdomen including bilateral flank pain L>R. CT abd/pelvis 06/29 - uncomplica sharon proctitis, hepatosplenomegaly and stools n rectum. -Bowel regimen: Miralax and Lactulose daily, Senna BID -Fentanyl IV, Oxycodone PO for pain /Renal: #Overactive Bladder, chronic issue -Oxybutynin CR 15 mg daily Neuro/Psych: #Depression/Anxiety -Cymbalta 90 mg daily -Lorazepam PRN for anxiety Endocrine: #Hypothyroidism: -Synthroid 37.5 mcg daily Infectious Disease: #SIRS: noted on 06/29 with tachycardia & tachypnea with flushed appearance. NO FEVERS. Loca lizing sx include pleuritic pain & abdominal pain. Bld cx 06/29 with NGTD. CTA chest 06/29 show s left pleural effusion and adjacent atelectasis, no PE or consolidations. CT abd/pelvis 06/29 shows uncomplicated proctitis, HSM with scattered areas of likely AML infiltration, extram edullary hematopoiesis or microabscesses. -Zosyn (06/29 - ) #Prophylaxis: Bacterial: As above Fungal: Reports using marijuana, risk for fungal infection. Consider Marie while on chemo, t hen start Posaconazole after chemo. Viral: Acyclovir PCP: Not indicated Fluid/Nutrition/Lytes: #Nutrition: Current diet -- Regular No Felisha's yogurt or Kefir. #Fluid: NS at 75 mL/hr #Lytes: -Continue to check chemistries q12h TLS labs -Replace per supportive care protocol. Disposition: TBD. Anticipate 4-6 week hospitalization. ISIDRO LLANES [address] Mailcode: [facility] [place] [address] Pepe Chavis MD - 07/01/2017 8:56 AM PSTFormatting of this note may be different from th e original. 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 Was in CR2 and then relapsed. Would like to pursue chemotherapy. June 21, 2017 ([facility] [id number]); Hypercellular marrow (90%) with relap sed acute myelogenous leukemia (60%); Blasts positive for CD117 and CD 33, negative for CD34 , CD71, CD61, CD3 and PAX-5. I rounded today, 07/01/17, in conjunction with the Advanced Practice Provider. I saw the patient, reviewed the history and relevant studies and developed an assessment an d plan. Subjective/Objective: feeling okay today. Still having a lot of abd pain and pain in L ches t. Moving bowels. ROS otherwise negative Summary of day's events and plan: day 1 of arlette + cytarabine + sorafenib (still awaiting fro m outside pharmacy) - start IV chemo today - start sorafenib as soon as obtained - stop hydrea tomorrow - monitor for TLS - allopurinol - flow and genetrails on peripheral blood pending - HSM likely from disease -> chemo to reduce - constipated and using pain meds -> cont aggressive bowel regimen - zosyn for proctitis/pain - acyclovir ppx - add fungal ppx after anthracycline Please see the Advanced Practice Provider documentation from today for the details regardin g the assessment and plan. Ht 1.59 m (5' 2.6"), Wt 91.6 kg (201 lb 15.1 oz), BP 134/70, Pulse 104, Temperature 36.8 C (98.2 F), RR 20, SpO2 90%, BMI 36.23 kg/(m^2). Focused Exam: nad, erythema on face, op with small sore on cheek, cta b, rrr no m/r/g, enla rged abd, tr edema Intake/Output Summary (Last 24 hours) at 07/01/17 0856 Last data filed at 07/01/17 0800 Gross per 24 hour Intake 3797.5 ml Output 1700 ml Net 2097.5 ml Recent Labs 06/28/17 2230 06/29/17 2301 06/30/17 1136 06/30/17 2300 NA 135* < > 133* 133* 134* K 3.3* < > 3.6 3.5 3.6 CL 99 < > 97 96* 96* BICARB 29 < > 29 31 31 BUN 5* < > 5* 7 8 CR 0.60 < > 0.47* 0.47* 0.48* GLU 108* < > 139* 139* 131* CA 8.1* < > 8.2* 7.8* 7.9* AST 54* -- 54* -- 48* ALT 44 -- 37 -- 32 AP 160* -- 177* -- 172* TBILI 0.4 -- 0.5 -- 0.5 TP 6.0* -- 6.1* -- 5.8* ALB 3.4* -- 3.2* -- 2.8* < > = values in this interval not displayed. Recent Labs 06/29/17 2301 06/30/17 1226 06/30/17 2300 WBC 38.37* 38.30* 34.73* RBC 2.62* 2.31* 2.37* HB 7.9* 7.0* 7.2* HCT 23.8* 21.3* 21.5* PLT 10* 23* 18* NEUTROPERC 7.8* 5.2* 3.7* LYMPHPERC 2.6* 6.0* 2.8* MONOPERC 3.4* 9.5* 5.5 BASOPERC 0.0 0.0 0.0 EOSPERC 0.0* 0.0* 0.0* I spent 35 minutes including chart review and discussion with the NICOLE. Greater than >50% of time spent in direct counseling and coordination of care including discussion of chemo, sor afenib, abd pain, side effects, risks/benefits and plan. Sarah Katz, [facility] - 06/30/2017 1:13 PM PSTFormatting of this note may be different from the original. Daily NICOLE Note - Chemotherapy Admit Center for Hematologic Malignancies Attending: Pepe Chavis MD [facility] Physician: Pepe Chavis MD Local Oncologist: Daniel Patterson MD PCP: Saurav Small NP Date of Admission: 06/28/17 Hematologic Malignancy: AML Reason for admission: Relapsed AML, transfer from OSH ID: 51 yo woman with relapsed AML, FLT3 ITD. Was in CR2 and then relapsed. Admitted for samuel l & treatment. 24 Hour Events/Current Daily Plan: -Relapsed AML, FLT 3, (status post salvage with FLAG-Arlette + midostaurin): Admitted from OSH with BMBx 06/21/17 showing relapsed AML, 90% cellularity 60% blasts. Peripheral blood flow & Genetrails PENDING 06/30 -Sorafenib Rx sent to specialty pharmacy, dispense PENDING. Expecting to start med on 07/01, followed by initiation of Arlette/HiDAC in 2-3 days. -Leukocytosis: WBC ~30K on admission. Secondary to disease. -Started hydrea to reduce tumor burden, dose 1g BID--> 2g TID as of 3 d/t increasing WBC count. -Risk for TLS: No e/o active tumor lysis. Continue allopurinol & MIVF. TLS labs q12H -Anemia, Thrombocytopenia: 2/2 disease. Standard transfusion parameters. 1 unit ppH today. -SIRS, 06/29: Tachycardic & tachypneic with flushed appearance on 06/29. Localizing sx include pleuritic pain & abdominal pain. -Blood Cx 06/29 NTD/PENDING -CTA 06/29 shows left pleural effusion and adjacent atelectasis. Supplemental O2. -CT AP 06/29 shows uncomplicated proctitis, HSM with scattered areas of likely AML infiltrati on, extramedullary hematopoiesis or microabscesses. -TTE shows EF 65-70% with Mild calcification of anterior mitral leaflet & mildly elevated RV systolic pressure. -Started Zosyn (06/29- ) -Abdominal pain: Multifactorial. 2/2 Constipation/uncomplicated proctitis & HSM. Pt c/o alec n across abdomen including bilateral flank pain L>R. 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 -Started miralax, senokot & MOM prn-->BID. Added lactulose 15 ml daily. -Added fentanyl 25-50 mcg IV q2hprn severe pain. -Oxycodone increased to10-20 mg q3hprn. -Lytes: standard repletion parameters. Mild hyponatremia likely 2/2 dehydration. Continue M IVF Subjective: Feels a little better today. Abdominal pain improving. Had two large BMs overn ight. Denies N/V. Tolerating PO fluid intake. Has ongoing pleuritic pain, but able to breath e better today. Objective: Last Vitals: BP 112/70 | Pulse 94 | Temp 37 C (98.6 F) | RR 20 | Ht 1.59 m (5' 2.6") | Wt 90.4 kg (199 lb 4.8 oz) | SpO2 93% | BMI 35.76 kg/(m^2) 24 Hour Vital Min/Max: Systolic (24hrs), Av , Min:112 , Max:143 Diastolic (24hrs), Av, Min:64, Max:81 Pulse Min: 94 Max: 111 Temp Min: 36.8 C (98.2 F) Max: 37.9 C (100.2 F) Resp Min: 20 Max: 22 SpO2 Min: 90 % Max: 94 % Intake/Output Summary (Last 24 hours) at 06/30/17 1313 Last data filed at 06/30/17 1138 Gross per 24 hour Intake 3583.25 ml Output 2860 ml Net 723.25 ml Physical Exam: General: This is a female in no acute distress. Sitting up in recliner. HEENT: PERRL. Sclerae anicteric. Mucosa pink and moist without erythema or exudate. Tong ue with thrush. Skin: No rash, lesions noted. Chest: Lungs mildly diminished to auscultation bilat. CV: RRR, no murmurs. Abdomen: S/NT/ND with NABS. No HSM appreciated. Extremities: Pulses strong and equal bilaterally. No c/c/BLE with petechiae. NeuroPsych: Alert and oriented x 3. Grossly nonfocal exam. CVC: RUE PICC site without inflammation or induration. Laboratory Results: Recent Labs 03/31/17 2301 06/28/17 2230 06/29/17 1431 06/29/17 2301 NA 139 < > 135* 134* 133* K 3.4 < > 3.3* 4.0 3.6 CL 103 < > 99 98 97 BICARB 29 < > 29 31 29 BUN 11 < > 5* 5* 5* CR 0.74 < > 0.60 0.51* 0.47* GLU 113* < > 108* 108* 139* CA 8.9 < > 8.1* 8.1* 8.2* AST 21 -- 54* -- 54* ALT 47 -- 44 -- 37 AP 162* -- 160* -- 177* TBILI 0.5 -- 0.4 -- 0.5 TP 6.5 -- 6.0* -- 6.1* ALB 3.3* -- 3.4* -- 3.2* < > = values in this interval not displayed. Recent Labs 04/04/17 0934 04/09/17 1404 06/28/17 2230 06/29/17 2301 06/30/17 1226 WBC 0.75* 2.1* 34.65* 38.37* -- RBC 2.60* 2.73* 2.61* 2.62* 2.31* HB 7.8* 8.2* 7.8* 7.9* 7.0* HCT 22.5* 23.9* 23.3* 23.8* 21.3* PLT 20* 39* 14* 10* -- NEUTROPERC 90.9* -- 5.2* 7.8* -- LYMPHPERC 3.8* -- 4.3* 2.6* -- MONOPERC 3.0* 8.5 5.2 3.4* -- BASOPERC 0.8 0.5 0.0 0.0 -- EOSPERC 0.0* 0.5* 1.7 0.0* -- Meds: Reviewed on rounds, see current MAR for medication list SUMMARY OF PATIENT'S HOSPITALIZATION History of Present Illness: (from H&P) Patient is a 51-year-old woman with a history of COPD, depression, hypothyroidism, and AML diagnosed in late 2015 after she presented with pleuritic chest pain and shortness of breath in addition to profound leukocytosis. Her disease was initially managed with 7+3+ dasatini b, course, gated by neutropenic fevers, C. difficile, nodular groundglass opacities concerni ng for invasive fungal infection (although galactomannan negative), treated with isavuconazo le.-> Voriconazole. She was reinduced with cytarabine and entered CR 1. She subsequently relapsed in February 2017 started on FLAG-Arlette salvage-->CR2. Her course was subsequently co mplicated by bacterial pneumonia, otherwise recovered well Patient presents today as a transfer from outside hospital ([facility]) where sh olivia presented with body aches and profound fatigue and to be anemic with new leukocytosis. Re peat bone marrow biopsy concerning for relapsed AML (blasts positive for CD 117, CD33). In the interim since her initial admission, the patient endorses development new new acute onse t pleuritic left-sided chest pain. She states that this chest pain is stabbing, 5-6 out of 10 in intensity. It is accompanied by a degree of resting dyspnea. Patient also endorses n agging cough productive of white/yellow sputum of approximately 1 week's duration. She suresh es constitutional symptoms including fevers, chills, night sweats. She denies new palpitati ons. She denies new oral lesions or odynophagia. She does endorse a degree of ongoing naus ea but states that that is baseline for her. She denies emesis. Endorses a degree of const ipation. Denies deep new complaints. She does endorse a developing petechial rash over bilateral lower extremities, as well as her upper back. She denies new adenopathy. Hospitalization History: Hematology: #Hematologic Malignancy: Relapsed AML Pertinent Diagnostics: -BM Bx 06/21/17 ([facility] [id number]) -Results: 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 myelogenous leukemia (60%); Blasts positive for CD117 and CD 33, negative for CD34, CD71, CD61, CD3 and PAX-5. -Cytogenetics: Normal -Genetrails: NPM1, DNMT3A, NRAS, TET2, FLT3 TKD mutations Treatment -Chemotherapy regimen: TBD -TBD -Chemo Day: TBD Patient is a candidate for transplant based on Dx and prognostic feature. Brother is a matc h. #Leukocytosis, Anemia, Thrombocytopenia: -See supportive care #Supportive Care: Growth factor: no growth factors required at this time Labs: Continue to check CBC daily Transfusion parameters: -Transfuse PRBCs for HCT <21% if asymptomatic OR <24% if symptomatic -Transfuse PPH for platelet count <10,000 sooner PRN s/s bleeding. Cardiovascular: No acute issues Pulmonary: No acute issues GI: #Abdominal pain: Multifactorial. 2/2 Constipation/uncomplicated proctitis & HSM. Pt c/o alec n across abdomen including bilateral flank pain L>R. 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 -Started miralax, senokot & MOM prn-->BID. Added lactulose 15 ml daily. -Added fentanyl 25-50 mcg IV q2hprn severe pain. -Oxycodone increased to10-20 mg q3hprn. /Renal: No acute issues Infectious Disease: #SIRS, 06/29: Tachycardic & tachypneic with flushed appearance on 06/29. Localizing sx include pleuritic pain & abdominal pain. -Blood Cx 06/29 NTD/PENDING -CTA 06/29 shows left pleural effusion and adjacent atelectasis. Supplemental O2. -CT AP 06/29 shows uncomplicated proctitis, HSM with scattered areas of likely AML infiltrati on, extramedullary hematopoiesis or microabscesses. -TTE shows EF 65-70% with Mild calcification of anterior mitral leaflet & mildly elevated RV systolic pressure. -Started Zosyn (06/29- ) #Prophylaxis: Bacterial: As above Fungal: Reports using marijuana. Risk for fungal infection. Start antifungal after chemo. C onsider Marie while on chemo. Viral: Acyclovir PCP: N/A Fluid/Nutrition/Lytes: #Nutrition: Current diet -- Regular No Felisha's yogurt or Kefir. #Fluid: NS at 75 mL/hr #Lytes: -Continue to check chemistries q12h TLS labs -Replace per supportive care protocol. Disposition: TBD. Anticipate 4-6 week hospitalization. ISIDRO Arvizu [address] [facility] Mailcode: [facility] [place] [address] Pepe Chavis MD - 06/30/2017 9:26 AM PSTFormatting of this note may be different from jl baker original. 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 Was in CR2 and then relapsed. Would like to pursue chemotherapy. June 21, 2017 ([facility] [id number]); Hypercellular marrow (90%) with relap sed acute myelogenous leukemia (60%); Blasts positive for CD117 and CD 33, negative for CD34 , CD71, CD61, CD3 and PAX-5. I rounded today, 06/30/17, in conjunction with the Advanced Practice Provider. I saw the patient, reviewed the history and relevant studies and developed an assessment an d plan. Subjective/Objective: feeling a little better ROS otherwise negative Summary of day's events and plan: relapsed AML - TE with EF 65-70% - increase hydrea to 2000 TID - plan to treat with sorafenib + arlette + cytarabine -> sorafenib from outpt pending - flow and genetrails on peripheral blood - HSM likely from disease - severely constipated -> aggressive bowel regimen - zosyn for proctitis/pain - acyclovir ppx - add fungal ppx after anthracycline - chemo tomorrow? CT Abd: 1. Uncomplicated proctitis. 2. Hepatomegaly and splenomegaly. Heterogeneity of liver with scattered subcentimeter hypoa ttenuating areas. Differential includes infiltrative AML, extra medullary hematopoiesis or m icroabscesses. CT chest: 1. No pulmonary embolism or evidence of right heart strain. 2. Small left pleural effusion with adjacent atelectasis. 3. Redemonstration of 3 cm left thyroid nodule. Please see the Advanced Practice Provider documentation from today for the details regardin g the assessment and plan. Active Problems: Patients Hospital Problem List: Active Hospital Problems * No active hospital problems. * Ht 1.59 m (5' 2.6"), Wt 90.4 kg (199 lb 4.8 oz), BP 127/73, Pulse 95, Temperature 36.8 C (98.2 F), RR 22, SpO2 94%, BMI 35.76 kg/(m^2). Focused Exam: more comfortable today, facial erythema less, OP with small lesion, CTA B, RR R no M/R/G, abd distended with ventral hernia, tr LE edema Intake/Output Summary (Last 24 hours) at 06/30/17 09 Last data filed at 06/30/17 0656 Gross per 24 hour Intake 2388.25 ml Output 2560 ml Net -171.75 ml Recent Labs 06/28/17 2230 06/29/17 1431 06/29/17 2301 NA 135* 134* 133* K 3.3* 4.0 3.6 CL 99 98 97 BICARB 29 31 29 BUN 5* 5* 5* CR 0.60 0.51* 0.47* GLU 108* 108* 139* CA 8.1* 8.1* 8.2* AST 54* -- 54* ALT 44 -- 37 AP 160* -- 177* TBILI 0.4 -- 0.5 TP 6.0* -- 6.1* ALB 3.4* -- 3.2* Recent Labs 04/04/17 0934 04/09/17 1404 06/28/17 2230 06/29/17 2301 WBC 0.75* 2.1* 34.65* 38.37* RBC 2.60* 2.73* 2.61* 2.62* HB 7.8* 8.2* 7.8* 7.9* HCT 22.5* 23.9* 23.3* 23.8* PLT 20* 39* 14* 10* NEUTROPERC 90.9* -- 5.2* 7.8* LYMPHPERC 3.8* -- 4.3* 2.6* MONOPERC 3.0* 8.5 5.2 3.4* BASOPERC 0.8 0.5 0.0 0.0 EOSPERC 0.0* 0.5* 1.7 0.0* I spent 35 minutes including chart review and discussion with the NICOLE. Greater than >50% of time spent in direct counseling and coordination of care including discussion of chemo, CT results, TTE, hydrea, sorafenib and plan. Sarah Katz FNP - 06/29/2017 5:10 PM PSTReceived call from Radiology that CT show s stercoral colitis. Pt c/o pain across abdomen including bilateral flank pain. Also reports LBM about 5 days ago & has had hard stools. Started miralax, senokot & MOM prn-->ATC. Added fentanyl prn severe pain. Pt afebrile, mild tachycardia & tachypnea noted. BCx ordered for SIRS. Also started on Zosyn. GI paged twice. Awaiting response. [facility] off to [facility]. Armani العراقي to monitor closely.Nathaniel Steele - 06/29/2017 4:36 PM PSTTransthoracic echocardiogram completed. Final report to follow. in this encounter Plan of Treatment + +--------+ + + | Name | Priori | Associated Diagnoses | Date/Time | | | ty | | | + +--------+ + + | CULTURE, AFB (ALL SPEC TYPES | Urgent | | 07/31/2017 12:13 AM | | EXCEPT BLOOD) | | | PDT | + +--------+ + + | CULTURE, AFB (ALL SPEC TYPES | Urgent | | 07/31/2017 7:47 AM | | EXCEPT BLOOD) | | | PDT | + +--------+ + + as of this encounter Procedures + +--------+ + + + | Procedure Name | Priori | Date/Time | Associated Diagnosis | Comments | | | ty | | | | + +--------+ + + + | FLEXIBLE | Routin | 07/31/2017 | Chronic | Results for this | | BRONCHOSCOPY | e | 7:32 AM | obstructive | procedure are in the | | | | PDT | pulmonary disease, | results section. | | | | | unspecified COPD | | | | | | type ([facility]) | | | | | | Immunocompromised | | | | | | state ([facility]) | | | | | | Pneumonia with the | | | | | | fungal infection | | | | | | aspergillosis ([facility]) | | | | | | Abnormal CXR | | + +--------+ + + + | ANESTHESIA/SEDATION | | 07/31/2017 | | Results for this | | | | 12:00 AM | | procedure are in the | | | | PDT | | results section. | + +--------+ + + + in this encounter Results CULTURE, BLOOD BACTI & YEAST [place] (08/08/2017 1:02 AM) + + + + | Component | Value | Ref Range | + + + + | CULTURE RESULT | Final Report:No Bacteria or Yeast isolated | | | | at 5 days. | | + + + + + + + | Specimen | Performing Laboratory | + + + | Blood - Antecubital | [facility], [facility] [address] | | - right | [place], [place] [address] | + + + CULTURE, BLOOD BACTI & YEAST (08/08/2017 1:02 AM) + + + | Specimen | Performing Laboratory | + + + | Blood | | + + + + + | Narrative | + + | The following orders were created for panel order CULTURE, BLOOD BACTI & YEAST. | | Procedure | | Abnormality Status | | --------- | | ------ CULTURE, BLOOD | | BACTI & Y...[[id number]] Final | | result Please view results for these tests on the | | individual orders. | + + CULTURE, BLOOD BACTI & YEAST [place] (08/08/2017 12:49 AM) + + + + | Component | Value | Ref Range | + + + + | CULTURE RESULT | Final Report:No Bacteria or Yeast isolated | | | | at 5 days. | | + + + + + + + | Specimen | Performing Laboratory | + + + | Blood | [facility], [facility] [address] | | | [place] [address] | + + + CULTURE, BLOOD BACTI & YEAST (08/08/2017 12:49 AM) + + + | Specimen | Performing Laboratory | + + + | Blood | | + + + + + | Narrative | + + | The following orders were created for panel order CULTURE, BLOOD BACTI & YEAST. | | Procedure | | Abnormality Status | | --------- | | ------ CULTURE, BLOOD | | BACTI & Y...[[id number]] Final | | result Please view results for these tests on the | | individual orders. | + + CBC AND AUTO DIFF (08/07/2017 11:57 PM) + + + + | Component | Value | Ref Range | + + + + | WHITE CELL COUNT | 0.14 (L) | 3.50 - 10.80 K/cu mm | + + + + | RED CELL COUNT | 2.85 (L) | 4.00 - 5.20 M/cu mm | + + + + | HEMOGLOBIN | 8.3 (L) | 12.0 - 16.0 g/dL | + + + + | HEMATOCRIT | 24.0 (L) | 36.0 - 46.0 % | + + + + | MCV | 84.2 | 80.0 - 96.0 fL | + + + + | MCHC | 34.6 | 33.0 - 35.5 g/dL | + + + + | RDW SD | 38.5 | 35.1 - 46.3 fL | + + + + | PLATELET COUNT | 12 (L) | 150 - 400 K/cu mm | + + + + | MPV | 10.5 | 9.7 - 12.3 fL | + [...] | | + + + + | IG% | Comment: WBC <300; differential not | 0.0 - 1.0 % | | | performed. | | [...] | | + + + + | IG# | Comment: WBC <300; differential not | 0.00 - 0.10 K/cu mm | | | performed. | | + + + + + + + | Specimen | Performing Laboratory | + + + | Blood | [facility], [address] | | | [place] [address] | + + + + + | Narrative | + + | New reference ranges for IG% and IG# effective 05/19/2017. Increased immature | | granulocytes (IG) define a left shift. Immature granulocytes (IG) are an automated count | | of metamyelocytes, myelocytes and promyelocytes. Bands are not included in the IG | | count. Bands are included in the neutrophil count. | + + COAGULOPATHY PANEL (INR,APTT,FIBRINOGEN) (08/07/2017 11:57 PM) + + + + | Component | Value | Ref Range | + + + + | INR | 1.14 | 0.90 - 1.20 INR | + + + + | APTT | 36.5 (H) | 26.0 - 36.0 seconds | + + + + | FIBRINOGEN LEVEL | 581 (H) | 200 - 450 mg/dL | + + + + + + + | Specimen | Performing Laboratory | + + + | Blood | [facility], [address] | | | [place] [address] | + + + + + | Narrative | + + | INR Therapeutic ranges for full anticoagulation: INR for Venous | | Thromboembolism (2.0 - 3.0) INR INR for most patients with | | mech. valves (2.5 - 3.5) INR APTT Therapeutic | | Range: (75 - 120) sec Heparin levels | | of 0.35 - 0.7 U/mL | + + LDH TOTAL, PLASMA (08/07/2017 11:57 PM) + +---------+ + | Component | Value | Ref Range | + +---------+ + | LD TOTAL, PLASMA | 151 | <=250 U/L | + +---------+ + | LD CMNT | No Hemo | | + +---------+ + + + + | Specimen | Performing Laboratory | + + + | Blood | [facility], [place] [address] [place] [address] | | | [place], [place] [address] | + + + URIC ACID, PLASMA (08/07/2017 11:57 PM) + +---------+ + | Component | Value | Ref Range | + +---------+ + | URIC ACID, PLASMA | 1.0 (L) | 2.5 - 6.2 mg/dL | | (LAB) | | | + +---------+ + + + + | Specimen | Performing Laboratory | + + + | Blood | [facility], [facility] [address] [place] [address] | | | [place] [address] | + + + PHOSPHORUS, PLASMA (08/07/2017 11:57 PM) + +-------+ + | Component | Value | Ref Range | + +-------+ + | PHOSPHORUS, PLASMA | 2.7 | 2.4 - 4.7 mg/dL | | (LAB) | | | + +-------+ + + + + | Specimen | Performing Laboratory | + + + | Blood | [facility] [address] | | | [place] [address] | + + + MAGNESIUM, PLASMA (08/07/2017 11:57 PM) + +-------+ + | Component | Value | Ref Range | + +-------+ + | MAGNESIUM,PLASMA | 1.8 | 1.6 - 2.6 mg/dL | + +-------+ + + + + | Specimen | Performing Laboratory | + + + | Blood | [facility], [address] | | | [place] [address] | + + + + + | Narrative | + + | Reference range change effective 12/11/16. | + + CBC, WITH DIFFERENTIAL (08/07/2017 11:57 PM) + + + | Specimen | Performing Laboratory | + + + | Blood | | + + + + + | Narrative | + + | The following orders were created for panel order CBC, WITH DIFFERENTIAL. | | Procedure | | Abnormality Status | | --------- | | ------ CBC AND AUTO | | DIFF[[id number]] Abnormal Final | | result Please view results for these tests on the | | individual orders. | + + COMPLETE METABOLIC SET (NA,K,CL,CO2,BUN,CREAT,GLUC,CA,AST,ALT,BILI TOTAL,ALK PHOS,ALB,PROT TOTAL) (08/07/2017 11:57 PM) + + + + | Component | Value | Ref Range | + + + + | GLUCOSE, PLASMA | 97 | 70 - 99 mg/dL | | (LAB) | | | + + + + | BUN, PLASMA (LAB) | 5 (L) | 6 - 20 mg/dL | + + + + | CREATININE PLASMA | 0.50 (L) | 0.60 - 1.10 mg/dL | | (LAB) | | | + + + + | EGFR - | >60 | >60 mL/min | | JORDANIAN | | | + + + + | EGFR NON | >60 | >60 mL/min | | -JORDANIAN | | | + + + + [...] + + + + | CALCIUM(ALB | 9.6 | 8.6 - 10.2 mg/dL | | CORRECTED) | | | + + + + | BILIRUBIN TOTAL | 0.8 | 0.3 - 1.2 mg/dL | + + + + | TOTAL PROTEIN, | 5.5 (L) | 6.4 - 8.2 g/dL | | PLASMA (LAB) | | | + + + + | ALBUMIN, PLASMA | 2.1 (L) | 3.5 - 4.7 g/dL | | (LAB) | | | + + + + | ALK PHOS | 162 (H) | 42 - 98 U/L | + + + + | AST(SGOT) | 13 | <=41 U/L | + + + + | ALT (SGPT) | 12 | <=60 U/L | + + + + | ANION GAP | 10 | 4 - 11 mmol/L | + + + + | [...] | + + + | Blood | [facility], CORE [address] | | | [place] [address] | + + + + + | [...] kidney function | + + ANTIBODY SCREEN (08/07/2017 12:06 AM) + + + + | Component | Value | Ref Range | + + + + | Antibody Screen | Negative | | + + + + + + + | Specimen | Performing Laboratory | + + + | Blood | [facility] [address] | | | [place] [address] | + + + ABO & RH TYPE (08/07/2017 12:06 AM) + + + + | Component | Value | Ref Range | + + + + | ABO Group | O | | + + + + | Rh Type | Positive | | + + + + + + + | Specimen | Performing Laboratory | + + + | Blood | [facility] [address] [facility] [address] | | | [place] [address] | + + + TYPE AND SCREEN (08/07/2017 12:06 AM) + + + | Specimen | Performing Laboratory | + + + | Blood | | + + + + + | Narrative | + + | The following orders were created for panel order TYPE AND SCREEN. | | Procedure | | Abnormality Status | | --------- | | ------ ABO & RH | | TYPE[[id number]] F | | inal result ANTIBODY | | SCREEN[[id number]] Fin | | al result Please view results for these tests on the | | individual orders. | + + PRODUCT - RED CELLS LEUKOREDUCED (08/07/2017 12:04 AM) + + + + | Component | Value | Ref Range | + + + + | PRODUCT DESCRIPTION | -1 RED BLOOD CELLS ADENINE-SALINE ADDED | | | | LEUKOCYT | | + + + + | PRODUCT UNIT # | [id number] | | + + + + | UNIT ABO | O | | + + + + | UNIT RH | POS | | + + + + | STATUS OF UNIT | Presumed Transfused | | + + + + | EXPIRATION DATE | [id number] | | + + + + | BLOOD TYPE BARCODE | 5100 | | + + + + | BLOOD PRODUCT CODE | [id number] | | + + + + + + + | Specimen | Performing Laboratory | + + + | | [facility] [address] [facility] | | | [place] [address] | + + + CBC AND AUTO DIFF (08/06/2017 11:30 PM) + + + + | Component | Value | Ref Range | + + + + | WHITE CELL COUNT | 0.13 (L) | 3.50 - 10.80 K/cu mm | + + + + | RED CELL COUNT | 2.36 (L) | 4.00 - 5.20 M/cu mm | + + + + | HEMOGLOBIN | 6.7 (L) | 12.0 - 16.0 g/dL | + + + + | HEMATOCRIT | 19.6 (L) | 36.0 - 46.0 % | + + + + | MCV | 83.1 | 80.0 - 96.0 fL | + [...] | | + + + + | IG% | Comment: WBC <300; differential not | 0.0 - 1.0 % | | | performed. | | [...] | | + + + + | IG# | Comment: WBC <300; differential not | 0.00 - 0.10 K/cu mm | | | performed. | | + + + + + + + | Specimen | Performing Laboratory | + + + | Blood | [facility], [facility] [address] [place] [address] | | | [place] [address] | + + + PHOSPHORUS, PLASMA (08/06/2017 11:30 PM) + +---------+ + | Component | Value | Ref Range | + +---------+ + | PHOSPHORUS, PLASMA | 2.1 (L) | 2.4 - 4.7 mg/dL | | (LAB) | | | + +---------+ + + + + | Specimen | Performing Laboratory | + + + | Blood | [facility], [facility] [address] [place] [address] | | | [place] [address] | + + + MAGNESIUM, PLASMA (08/06/2017 11:30 PM) + +-------+ + | Component | Value | Ref Range | + +-------+ + | MAGNESIUM,PLASMA | 1.8 | 1.6 - 2.6 mg/dL | + +-------+ + + + + | Specimen | Performing Laboratory | + + + | Blood | [facility] [address] [facility] | | | [place] [address] | + + + + + | Narrative | + + | Reference range change effective 12/11/16. | + + CBC, WITH DIFFERENTIAL (08/06/2017 11:30 PM) + + + | Specimen | Performing Laboratory | + + + | Blood | | + + + + + | Narrative | + + | The following orders were created for panel order CBC, WITH DIFFERENTIAL. | | Procedure | | Abnormality Status | | --------- | | ------ CBC AND AUTO | | DIFF[[id number]] Abnormal Final | | result Please view results for these tests on the | | individual orders. | + + COMPLETE METABOLIC SET (NA,K,CL,CO2,BUN,CREAT,GLUC,CA,AST,ALT,BILI TOTAL,ALK PHOS,ALB,PROT TOTAL) (08/06/2017 11:30 PM) + + + + | Component | Value | Ref Range | + + + + | GLUCOSE, PLASMA | 100 (H) | 70 - 99 mg/dL | | (LAB) | | | + + + + | BUN, PLASMA (LAB) | 5 (L) | 6 - 20 mg/dL | + + + + | CREATININE PLASMA | 0.54 (L) | 0.60 - 1.10 mg/dL | | (LAB) | | | + + + + | EGFR - | >60 | >60 mL/min | | JORDANIAN | | | + + + + | EGFR NON | >60 | >60 mL/min | | -JORDANIAN | | | + + + + | SODIUM, PLASMA (LAB) | 135 (L) | 136 - 145 mmol/L | + + + + | POTASSIUM, PLASMA | 3.4 | 3.4 - 5.0 mmol/L | | (LAB) | | | + + + + | CHLORIDE, PLASMA | 99 | [...] + + + + | CALCIUM(ALB | 9.6 | 8.6 - 10.2 mg/dL | | CORRECTED) | | | + + + + | BILIRUBIN TOTAL | 0.9 | 0.3 - 1.2 mg/dL | + + + + | TOTAL PROTEIN, | 5.5 (L) | 6.4 - 8.2 g/dL | | PLASMA (LAB) | | | + + + + | ALBUMIN, PLASMA | 2.1 (L) | 3.5 - 4.7 g/dL | | (LAB) | | | + + + + | ALK PHOS | 152 (H) | 42 - 98 U/L | + + + + | AST(SGOT) | 10 | <=41 U/L | + + + + | ALT (SGPT) | 8 | <=60 U/L | + + + + | ANION GAP | 6 | 4 - 11 mmol/L | + + + + | [...] | + + + | Blood | [facility], [address]ORE [address] | | | [place] [address] | + + + + + | [...] changing kidney function | + + CBC AND AUTO DIFF (08/05/2017 11:59 PM) + + + + | Component | Value | Ref Range | + + + + | WHITE CELL COUNT | <0.10 (L) | 3.50 - 10.80 K/cu mm | + + + + | RED CELL COUNT | 2.60 (L) | 4.00 - 5.20 M/cu mm | + + + + | HEMOGLOBIN | 7.4 (L) | 12.0 - 16.0 g/dL | + + + + | HEMATOCRIT | 21.5 (L) | 36.0 - 46.0 % | + + + + | MCV | 82.7 | 80.0 - 96.0 fL | + + + + | MCHC | 34.4 | 33.0 - 35.5 g/dL | + + + + | RDW SD | 38.5 | 35.1 - 46.3 fL | + + + + | PLATELET COUNT | 27 (L) | 150 - 400 K/cu mm [...] | | + + + + | IG% | Comment: WBC <300; differential not | 0.0 - 1.0 % | | | performed. | | [...] | | + + + + | IG# | Comment: WBC <300; differential not | 0.00 - 0.10 K/cu mm | | | performed. | | + + + + + + + | Specimen | Performing Laboratory | + + + | Blood | [facility], CORE [address] [place] [address] | | | [place] [address] | + + + PHOSPHORUS, PLASMA (08/05/2017 11:59 PM) + +---------+ + | Component | Value | Ref Range | + +---------+ + | PHOSPHORUS, PLASMA | 2.2 (L) | 2.4 - 4.7 mg/dL | | (LAB) | | | + +---------+ + + + + | Specimen | Performing Laboratory | + + + | Blood | [facility], [address]ORE [address] | | | [place] [address] | + + + MAGNESIUM, PLASMA (08/05/2017 11:59 PM) + +-------+ + | Component | Value | Ref Range | + +-------+ + | MAGNESIUM,PLASMA | 1.9 | 1.6 - 2.6 mg/dL | + +-------+ + + + + | Specimen | Performing Laboratory | + + + | Blood | [facility], CORE [address] | | | [place] [address] | + + + + + | Narrative | + + | Reference range change effective 12/11/16. | + + CBC, WITH DIFFERENTIAL (08/05/2017 11:59 PM) + + + | Specimen | Performing Laboratory | + + + | Blood | | + + + + + | Narrative | + + | The following orders were created for panel order CBC, WITH DIFFERENTIAL. | | Procedure | | Abnormality Status | | --------- | | ------ CBC AND AUTO | | DIFF[[id number]] Abnormal Final | | result Please view results for these tests on the | | individual orders. | + + COMPLETE METABOLIC SET (NA,K,CL,CO2,BUN,CREAT,GLUC,CA,AST,ALT,BILI TOTAL,ALK PHOS,ALB,PROT TOTAL) (08/05/2017 11:59 PM) + + + + | Component | Value | Ref Range | + + + + | GLUCOSE, PLASMA | 108 (H) | 70 - 99 mg/dL | | (LAB) | | | + + + + | BUN, PLASMA (LAB) | 4 (L) | 6 - 20 mg/dL | + + + + | CREATININE PLASMA | 0.51 (L) | 0.60 - 1.10 mg/dL | | (LAB) | | | + + + + | EGFR - | >60 | >60 mL/min | | JORDANIAN | | | + + + + | EGFR NON | >60 | >60 mL/min | | -JORDANIAN | | | + + + + | SODIUM, PLASMA (LAB) | 135 (L) | 136 - 145 mmol/L | + + + + | POTASSIUM, PLASMA | 3.2 (L) | 3.4 - 5.0 mmol/L | [...] + + + + | CALCIUM(ALB | 9.7 | 8.6 - 10.2 mg/dL | | CORRECTED) | | | + + + + | BILIRUBIN TOTAL | 0.9 | 0.3 - 1.2 mg/dL | + + + + | TOTAL PROTEIN, | 5.6 (L) | 6.4 - 8.2 g/dL | | PLASMA (LAB) | | | + + + + | ALBUMIN, PLASMA | 2.1 (L) | 3.5 - 4.7 g/dL | | (LAB) | | | + + + + | ALK PHOS | 145 (H) | 42 - 98 U/L | + + + + | AST(SGOT) | 9 | <=41 U/L | + + + + | ALT (SGPT) | 11 | <=60 U/L | + + + + | ANION GAP | 7 | 4 - 11 mmol/L | + + + + | [...] | + + + | Blood | [facility], [address]ORE [address] | | | [place] [address] | + + + + + | [...] Rapidly changing kidney function | + + POTASSIUM, PLASMA (08/05/2017 6:55 AM) + +---------+ + | Component | Value | Ref Range | + +---------+ + | POTASSIUM, PLASMA | 3.7 | 3.4 - 5.0 mmol/L | | (LAB) | | | + +---------+ + | POTASSIUM CMNT | No Hemo | | + +---------+ + + + + | Specimen | Performing Laboratory | + + + | Blood | [facility], CORE [address] [place] [address] | | | [place] [address] | + + + + + | Narrative | + + | For hypokalemia and potassium replacement | + + PRODUCT - PLATELET PHERESIS LEUKOREDUCED (08/05/2017 1:04 AM) + + + + | Component | Value | Ref Range | + + + + | PRODUCT DESCRIPTION | PLATELETS PHERESIS, LEUKOCYTE REDUCED, | | | | IRRADIATED | | + + + + | PRODUCT UNIT # | [id number] | | + + + + | UNIT ABO | O | | + + + + | UNIT RH | NEG | | + + + + | STATUS OF UNIT | Presumed Transfused | | + + + + | EXPIRATION DATE | [id number] | | + + + + | BLOOD TYPE BARCODE | | | + + + + | BLOOD PRODUCT CODE | [id number] | | + + + + + + + | Specimen | Performing Laboratory | + + + | | [facility], TRANSFUSION MEDICINE [address] [facility] | | | [place] [address] | + + + CBC AND AUTO DIFF (08/04/2017 11:30 PM) + + + + | Component | Value | Ref Range | + + + + | WHITE CELL COUNT | <0.10 (L) | 3.50 - 10.80 K/cu mm | + + + + | RED CELL COUNT | 2.80 (L) | 4.00 - 5.20 M/cu mm | + + + + | HEMOGLOBIN | 8.2 (L) | 12.0 - 16.0 g/dL | + + + + | HEMATOCRIT | 23.0 (L) | 36.0 - 46.0 % | + + + + | MCV | 82.1 | 80.0 - 96.0 fL | + + + + | MCHC | 35.7 | 33.0 - 35.5 g/dL | + + + + | RDW SD | 38.3 | 35.1 - 46.3 fL | + + + + | PLATELET COUNT | 19 (L) | 150 - 400 K/cu mm [...] | | + + + + | IG% | Comment: WBC <300; differential not | 0.0 - 1.0 % | | | performed. | | [...] | | + + + + | IG# | Comment: WBC <300; differential not | 0.00 - 0.10 K/cu mm | | | performed. | | + + + + + + + | Specimen | Performing Laboratory | + + + | Blood | [facility], CORE [address] | | | [facility] [address] | + + + COAGULOPATHY PANEL (INR,APTT,FIBRINOGEN) (08/04/2017 11:30 PM) + + + + | Component | Value | Ref Range | + + + + | INR | 1.20 | 0.90 - 1.20 INR | + + + + | APTT | 39.2 (H) | 26.0 - 36.0 seconds | + + + + | FIBRINOGEN LEVEL | 605 (H) | 200 - 450 mg/dL | + + + + + + + | Specimen | Performing Laboratory | + + + | Blood | [facility], CORE [address] | | | [place] [address] | + + + + + | Narrative | + + | INR Therapeutic ranges for full anticoagulation: INR for Venous | | Thromboembolism (2.0 - 3.0) INR INR for most patients with | | mech. valves (2.5 - 3.5) INR APTT Therapeutic | | Range: (75 - 120) sec Heparin levels | | of 0.35 - 0.7 U/mL | + + VRE (FRANCISCO) BY PCR (08/04/2017 11:30 PM) + + + + | Component | Value | Ref Range | + + + + | VRE BY PCR | Negative for van A gene | Negative for van A | | | | gene | + + + + + + + | Specimen | Performing Laboratory | + + + | Swab - Rectum | [facility], CORE [address] [place] [address] RD | | | [place] [address] | + + + LDH TOTAL, PLASMA (08/04/2017 11:30 PM) + +---------+ + | Component | Value | Ref Range | + +---------+ + | LD TOTAL, PLASMA | 119 | <=250 U/L | + +---------+ + | LD CMNT | No Hemo | | + +---------+ + + + + | Specimen | Performing Laboratory | + + + | Blood | [facility], CORE [address] | | | [place] [address] | + + + URIC ACID, PLASMA (08/04/2017 11:30 PM) + +---------+ + | Component | Value | Ref Range | + +---------+ + | URIC ACID, PLASMA | 0.8 (L) | 2.5 - 6.2 mg/dL | | (LAB) | | | + +---------+ + + + + | Specimen | Performing Laboratory | + + + | Blood | [facility], [address] | | | [place] [address] | + + + PHOSPHORUS, PLASMA (08/04/2017 11:30 PM) + +-------+ + | Component | Value | Ref Range | + +-------+ + | PHOSPHORUS, PLASMA | 2.5 | 2.4 - 4.7 mg/dL | | (LAB) | | | + +-------+ + + + + | Specimen | Performing Laboratory | + + + | Blood | [facility], CORE [address] | | | [place] [address] | + + + MAGNESIUM, PLASMA (08/04/2017 11:30 PM) + +-------+ + | Component | Value | Ref Range | + +-------+ + | MAGNESIUM,PLASMA | 2.0 | 1.6 - 2.6 mg/dL | + +-------+ + + + + | Specimen | Performing Laboratory | + + + | Blood | [facility], CORE [address] [place] [address] | | | [place] [address] | + + + + + | Narrative | + + | Reference range change effective 12/11/16. | + + CBC, WITH DIFFERENTIAL (08/04/2017 11:30 PM) + + + | Specimen | Performing Laboratory | + + + | Blood | | + + + + + | Narrative | + + | The following orders were created for panel order CBC, WITH DIFFERENTIAL. | | Procedure | | Abnormality Status | | --------- | | ------ CBC AND AUTO | | DIFF[[id number]] Abnormal Final | | result Please view results for these tests on the | | individual orders. | + + COMPLETE METABOLIC SET (NA,K,CL,CO2,BUN,CREAT,GLUC,CA,AST,ALT,BILI TOTAL,ALK PHOS,ALB,PROT TOTAL) (08/04/2017 11:30 PM) + + + + | Component | Value | Ref Range | + + + + | GLUCOSE, PLASMA | 103 (H) | 70 - 99 mg/dL | | (LAB) | | | + + + + | BUN, PLASMA (LAB) | 3 (L) | 6 - 20 mg/dL | + + + + | CREATININE PLASMA | 0.47 (L) | 0.60 - 1.10 mg/dL | | (LAB) | | | + + + + | EGFR - | >60 | >60 mL/min | | JORDANIAN | | | + + + + | EGFR NON | >60 | >60 mL/min | | -JORDANIAN | | | + + + + [...] + + + | CALCIUM, PLASMA | 7.7 (L) | 8.6 - 10.2 mg/dL | | (LAB) | | | + + + + | CALCIUM(ALB | 9.3 | 8.6 - 10.2 mg/dL | | CORRECTED) | | | + + + + | BILIRUBIN TOTAL | 0.9 | 0.3 - 1.2 mg/dL | + + + + | TOTAL PROTEIN, | 5.3 (L) | 6.4 - 8.2 g/dL | | PLASMA (LAB) | | | + + + + | ALBUMIN, PLASMA | 2.0 (L) | 3.5 - 4.7 g/dL | | (LAB) | | | + + + + | ALK PHOS | 139 (H) | 42 - 98 U/L | + + + + | AST(SGOT) | 10 | <=41 U/L | + + + + | ALT (SGPT) | 8 | <=60 U/L | + + + + | ANION GAP | 8 | 4 - 11 mmol/L | + + + + | ANION GAP(ALB | 13 (H) | 4 - 11 mmol/L | [...] | + + + | Blood | [facility], CORE [address] | | | [place] [address] | + + + + + | [...] Rapidly changing kidney function | + + POTASSIUM, PLASMA (08/04/2017 11:10 AM) + +---------+ + | Component | Value | Ref Range | + +---------+ + | POTASSIUM, PLASMA | 3.4 | 3.4 - 5.0 mmol/L | | (LAB) | | | + +---------+ + | POTASSIUM CMNT | No Hemo | | + +---------+ + + + + | Specimen | Performing Laboratory | + + + | Blood | [facility], [address] | | | [place] [address] | + + + + + | Narrative | + + | For hypokalemia and potassium replacement | + + PRODUCT - PLATELET PHERESIS LEUKOREDUCED (08/04/2017 12:13 AM) + + + + | Component | Value | Ref Range | + + + + | PRODUCT DESCRIPTION | APHERESIS | | | | PLATELETS,PAS,LEUKOREDUCED,IRRADIATED | | + + + + | PRODUCT UNIT # | [id number] | | + + + + | UNIT ABO | O | | + + + + | UNIT RH | POS | | + + + + | STATUS OF UNIT | Presumed Transfused | | + + + + | EXPIRATION DATE | [id number] | | + + + + | BLOOD TYPE BARCODE | 5100 | | + + + + | BLOOD PRODUCT CODE | [id number] | | + + + + + + + | Specimen | Performing Laboratory | + + + | | [facility], TRANSFUSION MEDICINE [address] [facility] | | | [place] [address] | + + + PRODUCT - RED CELLS LEUKOREDUCED (08/04/2017 12:13 AM) + + + + | Component | Value | Ref Range | + + + + | PRODUCT DESCRIPTION | -1 RED BLOOD CELLS ADENINE-SALINE ADDED | | | | LEUKOCYT | | + + + + | PRODUCT UNIT # | [id number] | | + + + + | UNIT ABO | O | | + + + + | UNIT RH | POS | | + + + + | STATUS OF UNIT | Presumed Transfused | | + + + + | EXPIRATION DATE | [id number] | | + + + + | BLOOD TYPE BARCODE | 5100 | | + + + + | BLOOD PRODUCT CODE | [id number] | | + + + + + + + | Specimen | Performing Laboratory | + + + | | [facility], TRANSFUSION MEDICINE [address] | | | [place] [address] | + + + CBC AND AUTO DIFF (08/03/2017 11:46 PM) + + + + | Component [...] + + + + | MCV | 80.6 | 80.0 - 96.0 fL | + + + + | MCHC | 35.8 | 33.0 - 35.5 g/dL | + + + + | RDW SD | 35.9 | 35.1 - 46.3 fL | + + + + | PLATELET COUNT | 14 (L) | 150 - 400 K/cu mm | + + + + | MPV | 9.7 | 9.7 - 12.3 fL | + [...] | | + + + + | IG% | Comment: WBC <300; differential not | 0.0 - 1.0 % | | | performed. | | [...] | | + + + + | IG# | Comment: WBC <300; differential not | 0.00 - 0.10 K/cu mm | | | performed. | | + + + + + + + | Specimen | Performing Laboratory | + + + | Blood | [facility], [address] | | | [place] [address] | + + + PHOSPHORUS, PLASMA (08/03/2017 11:46 PM) + +-------+ + | Component | Value | Ref Range | + +-------+ + | PHOSPHORUS, PLASMA | 2.8 | 2.4 - 4.7 mg/dL | | (LAB) | | | + +-------+ + + + + | Specimen | Performing Laboratory | + + + | Blood | [facility], [address] | | | [place] [address] | + + + MAGNESIUM, PLASMA (08/03/2017 11:46 PM) + +-------+ + | Component | Value | Ref Range | + +-------+ + | MAGNESIUM,PLASMA | 2.3 | 1.6 - 2.6 mg/dL | + +-------+ + + + + | Specimen | Performing Laboratory | + + + | Blood | [facility], [address] | | | [place] [address] | + + + + + | Narrative | + + | Reference range change effective 8/15/17. | + + CBC, WITH DIFFERENTIAL (08/03/2017 11:46 PM) + + + | Specimen | Performing Laboratory | + + + | Blood | | + + + + + | Narrative | + + | The following orders were created for panel order CBC, WITH DIFFERENTIAL. | | Procedure | | Abnormality Status | | --------- | | ------ CBC AND AUTO | | DIFF[[id number]] Abnormal Final | | result Please view results for these tests on the | | individual orders. | + + COMPLETE METABOLIC SET (NA,K,CL,CO2,BUN,CREAT,GLUC,CA,AST,ALT,BILI TOTAL,ALK PHOS,ALB,PROT TOTAL) (08/03/2017 11:46 PM) + + + + | Component | Value | Ref Range | + + + + | GLUCOSE, PLASMA | 113 (H) | 70 - 99 mg/dL | | (LAB) | | | + + + + | BUN, PLASMA (LAB) | 3 (L) | 6 - 20 mg/dL | + + + + | CREATININE PLASMA | 0.48 (L) | 0.60 - 1.10 mg/dL | | (LAB) | | | + + + + | EGFR - | >60 | >60 mL/min | | JORDANIAN | | | + + + + | EGFR NON | >60 | >60 mL/min | | -JORDANIAN | | | + + + + | SODIUM, PLASMA (LAB) | 136 | 136 - 145 mmol/L | + + + + | POTASSIUM, PLASMA | 2.8 (L) | 3.4 - 5.0 mmol/L | | (LAB) | | | + + + + | CHLORIDE, PLASMA | 97 | 97 - 108 mmol/L | | [...] + + + | TOTAL PROTEIN, | 5.3 (L) | 6.4 - 8.2 g/dL | | PLASMA (LAB) | | | + + + + | ALBUMIN, PLASMA | 2.0 (L) | 3.5 - 4.7 g/dL | | (LAB) | | | + + + + | ALK PHOS | 130 (H) | 42 - 98 U/L | + + + + | AST(SGOT) | 9 | <=41 U/L | + + + + | ALT (SGPT) | 9 | <=60 U/L | + + + + | ANION GAP | 9 | 4 - 11 mmol/L | + + + + | [...] | + + + | Blood | [facility], [address]ORE [address] | | | [place] [address] | + + + + + | [...] kidney function | + + PHOSPHORUS, PLASMA (08/03/2017 1:55 AM) + +---------+ + | Component | Value | Ref Range | + +---------+ + | PHOSPHORUS, PLASMA | 1.7 (L) | 2.4 - 4.7 mg/dL | | (LAB) | | | + +---------+ + + + + | Specimen | Performing Laboratory | + + + | Blood | [facility], CORE [address] [facility] [address] | | | [place] [address] | + + + MAGNESIUM, PLASMA (08/03/2017 1:55 AM) + +-------+ + | Component | Value | Ref Range | + +-------+ + | MAGNESIUM,PLASMA | 1.6 | 1.6 - 2.6 mg/dL | + +-------+ + + + + | Specimen | Performing Laboratory | + + + | Blood | [facility], CORE [address] [place] [address] [place] | | | [place] [address] | + + + + + | Narrative | + + | Reference range change effective 12/11/16. | + + COMPLETE METABOLIC SET (NA,K,CL,CO2,BUN,CREAT,GLUC,CA,AST,ALT,BILI TOTAL,ALK PHOS,ALB,PROT TOTAL) (08/03/2017 1:55 AM) + + + + | Component | Value | Ref Range | + + + + | GLUCOSE, PLASMA | 117 (H) | 70 - 99 mg/dL | | (LAB) | | | + + + + | BUN, PLASMA (LAB) | 3 (L) | 6 - 20 mg/dL | + + + + | CREATININE PLASMA | 0.46 (L) | 0.60 - 1.10 mg/dL | | (LAB) | | | + + + + | EGFR - | >60 | >60 mL/min | | JORDANIAN | | | + + + + | EGFR NON | >60 | >60 mL/min | | -JORDANIAN | | | + + + + | SODIUM, PLASMA (LAB) | 135 (L) | 136 - 145 mmol/L | + + + + | POTASSIUM, PLASMA | 3.2 (L) | 3.4 - 5.0 mmol/L | | (LAB) | | | + + + + | CHLORIDE, PLASMA | 99 | [...] + + + + | CALCIUM(ALB | 9.7 | 8.6 - 10.2 mg/dL | | CORRECTED) | | | + + + + | BILIRUBIN TOTAL | 1.0 | 0.3 - 1.2 mg/dL | + + + + | TOTAL PROTEIN, | 5.5 (L) | 6.4 - 8.2 g/dL | | PLASMA (LAB) | | | + + + + | ALBUMIN, PLASMA | 2.1 (L) | 3.5 - 4.7 g/dL | | (LAB) | | | + + + + | ALK PHOS | 140 (H) | 42 - 98 U/L | + + + + | AST(SGOT) | 10 | <=41 U/L | + + + + | ALT (SGPT) | 12 | <=60 U/L | + + + + | ANION GAP | 8 | 4 - 11 mmol/L | + + + + | [...] | + + + | Blood | [facility], CORE [address] [place] [address] | | | [place] [address] | + + + + + | [...] changing kidney function | + + CBC AND AUTO DIFF (08/03/2017 1:30 AM) + + + + | Component | Value | Ref Range | + + + + | WHITE CELL COUNT | <0.10 (L) | 3.50 - 10.80 K/cu mm | + + + + | RED CELL COUNT | 2.78 (L) | 4.00 - 5.20 M/cu mm | + + + + | HEMOGLOBIN | 8.1 (L) | 12.0 - 16.0 g/dL | + + + + | HEMATOCRIT | 22.7 (L) | 36.0 - 46.0 % | + + + + | MCV | 81.7 | 80.0 - 96.0 fL | + + + + | MCHC | 35.7 | 33.0 - 35.5 g/dL | + + + + | RDW SD | 36.4 | 35.1 - 46.3 fL | + [...] | | + + + + | IG% | Comment: WBC <300; differential not | 0.0 - 1.0 % | | | performed. | | [...] | | + + + + | IG# | Comment: WBC <300; differential not | 0.00 - 0.10 K/cu mm | | | performed. | | + + + + + + + | Specimen | Performing Laboratory | + + + | Blood | [facility], CORE [address] | | | [place] [address] | + + + CBC, WITH DIFFERENTIAL (08/03/2017 1:30 AM) + + + | Specimen | Performing Laboratory | + + + | Blood | | + + + + + | Narrative | + + | The following orders were created for panel order CBC, WITH DIFFERENTIAL. | | Procedure | | Abnormality Status | | --------- | | ------ CBC AND AUTO | | DIFF[[id number]] Abnormal Final | | result Please view results for these tests on the | | individual orders. | + + POTASSIUM, PLASMA (08/02/2017 2:00 PM) + +---------+ + | Component | Value | Ref Range | + +---------+ + | POTASSIUM, PLASMA | 2.9 (L) | 3.4 - 5.0 mmol/L | | (LAB) | | | + +---------+ + | POTASSIUM CMNT | No Hemo | | + +---------+ + + + + | Specimen | Performing Laboratory | + + + | Blood | [facility], CORE [address] | | | [place] [address] | + + + + + | Narrative | + + | For hypokalemia and potassium replacement | + + ANTIBODY SCREEN (08/02/2017 1:52 AM) + + + + | Component | Value | Ref Range | + + + + | Antibody Screen | Negative | | + + + + + + + | Specimen | Performing Laboratory | + + + | Blood | [facility], TRANSFUSION MEDICINE [address] [facility] | | | [place] [address] | + + + ABO & RH TYPE (08/02/2017 1:52 AM) + + + + | Component | Value | Ref Range | + + + + | ABO Group | O | | + + + + | Rh Type | Positive | | + + + + + + + | Specimen | Performing Laboratory | + + + | Blood | [facility], TRANSFUSION MEDICINE [address] [facility] | | | [place] [address] | + + + TYPE AND SCREEN (08/02/2017 1:52 AM) + + + | Specimen | Performing Laboratory | + + + | Blood | | + + + + + | Narrative | + + | The following orders were created for panel order TYPE AND SCREEN. | | Procedure | | Abnormality Status | | --------- | | ------ ABO & RH | | TYPE[[id number]] F | | inal result ANTIBODY | | SCREEN[[id number]] Fin | | al result Please view results for these tests on the | | individual orders. | + + PRODUCT - PLATELET PHERESIS LEUKOREDUCED (08/02/2017 1:50 AM) + + + + | Component | Value | Ref Range | + + + + | PRODUCT DESCRIPTION | PLATELETS PHERESIS, LEUKOCYTE REDUCED, | | | | IRRADIATED | | + + + + | PRODUCT UNIT # | [id number] | | + + + + | UNIT ABO | O | | + + + + | UNIT RH | POS | | + + + + | STATUS OF UNIT | Presumed Transfused | | + + + + | EXPIRATION DATE | [id number] | | + + + + | BLOOD TYPE BARCODE | 5100 | | + + + + | BLOOD PRODUCT CODE | [id number] | | + + + + + + + | Specimen | Performing Laboratory | + + + | | [facility] [address] [facility] | | | [place] [address] | + + + PRODUCT - RED CELLS LEUKOREDUCED (08/02/2017 1:50 AM) + + + + | Component | Value | Ref Range | + + + + | PRODUCT DESCRIPTION | -1 RED BLOOD CELLS ADENINE-SALINE ADDED | | | | LEUKOCYT | | + + + + | PRODUCT UNIT # | [id number] | | + + + + | UNIT ABO | O | | + + + + | UNIT RH | POS | | + + + + | STATUS OF UNIT | Presumed Transfused | | + + + + | EXPIRATION DATE | [id number] | | + + + + | BLOOD TYPE BARCODE | 5100 | | + + + + | BLOOD PRODUCT CODE | [id number] | | + + + + + + + | Specimen | Performing Laboratory | + + + | | [facility]SF[facility]ION [facility]ICINE [address] | | | [place] [address] | + + + PHOSPHORUS, PLASMA (08/01/2017 11:55 PM) + +---------+ + | Component | Value | Ref Range | + +---------+ + | PHOSPHORUS, PLASMA | 2.3 (L) | 2.4 - 4.7 mg/dL | | (LAB) | | | + +---------+ + + + + | Specimen | Performing Laboratory | + + + | Blood | [facility], [facility] [address] [place] [address] | | | [place] [address] | + + + MAGNESIUM, PLASMA (08/01/2017 11:55 PM) + +-------+ + | Component | Value | Ref Range | + +-------+ + | MAGNESIUM,PLASMA | 1.7 | 1.6 - 2.6 mg/dL | + +-------+ + + + + | Specimen | Performing Laboratory | + + + | Blood | [facility], [facility] [address] [place] [address] | | | [place] [address] | + + + + + | Narrative | + + | Reference range change effective 12/11/16. | + + COMPLETE METABOLIC SET (NA,K,CL,CO2,BUN,CREAT,GLUC,CA,AST,ALT,BILI TOTAL,ALK PHOS,ALB,PROT TOTAL) (08/01/2017 11:55 PM) + + + + | Component | Value | Ref Range | + + + + | GLUCOSE, PLASMA | 92 | 70 - 99 mg/dL | | (LAB) | | | + + + + | BUN, PLASMA (LAB) | 3 (L) | 6 - 20 mg/dL | + + + + | CREATININE PLASMA | 0.41 (L) | 0.60 - 1.10 mg/dL | | (LAB) | | | + + + + | EGFR - | >60 | >60 mL/min | | JORDANIAN | | | + + + + | EGFR NON | >60 | >60 mL/min | | -JORDANIAN | | | + + + + | SODIUM, PLASMA (LAB) | 136 | 136 - 145 mmol/L | + + + + | POTASSIUM, PLASMA | 2.6 (L) | 3.4 - 5.0 mmol/L | [...] + + + | ALK PHOS | 159 (H) | 42 - 98 U/L | + + + + | AST(SGOT) | 13 | <=41 U/L | + + + + | ALT (SGPT) | 15 | <=60 U/L | + + + + | ANION GAP | 11 | 4 - 11 mmol/L | + + + + | ANION GAP(ALB | 15 (H) | 4 - 11 mmol/L | [...] | + + + | Blood | [facility], [facility] [address] | | | [place] [address] | + + + + + | [...] changing kidney function | + + CBC AND AUTO DIFF (08/01/2017 11:46 PM) + + + + | Component | Value | Ref Range | + + + + | WHITE CELL COUNT | <0.10 (L) | 3.50 - 10.80 K/cu mm | + + + + | RED CELL COUNT | 2.63 (L) | 4.00 - 5.20 M/cu mm | + + + + | HEMOGLOBIN | 7.6 (L) | 12.0 - 16.0 g/dL | + + + + | HEMATOCRIT | 21.0 (L) | 36.0 - 46.0 % | + + + + | MCV | 79.8 (L) | 80.0 - 96.0 fL | + + + + | MCHC | 36.2 | 33.0 - 35.5 g/dL | + + + + | RDW SD | 35.5 | 35.1 - 46.3 fL | + [...] | | + + + + | IG% | Comment: WBC <300; differential not | 0.0 - 1.0 % | | | performed. | | [...] | | + + + + | IG# | Comment: WBC <300; differential not | 0.00 - 0.10 K/cu mm | | | performed. | | + + + + + + + | Specimen | Performing Laboratory | + + + | Blood | [facility], [facility] [address] | | | [place] [address] | + + + CBC, WITH DIFFERENTIAL (08/01/2017 11:46 PM) + + + | Specimen | Performing Laboratory | + + + | Blood | | + + + + + | Narrative | + + | The following orders were created for panel order CBC, WITH DIFFERENTIAL. | | Procedure | | Abnormality Status | | --------- | | ------ CBC AND AUTO | | DIFF[[id number]] Abnormal Final | | result Please view results for these tests on the | | individual orders. | + + BIOPSY AND ASPIRATION OF BONE MARROW (08/01/2017 5:45 PM) + + | Narrative | + + | Ellis Mejia PA-C,NAOMY 08/01/2017 5:47 PM 06/27/2017 Procedure Note | | PCP: Saurav Small NP Procedure: Bone marrow aspirate and biopsy w/medications for | | anxiolysis Equipment Description: [employer] Subagent Serial ID: [id number] | | Indications: 51 y.o. female with hx of AML to evaluate disease status. | | Description: Written consent for bone marrow aspirate and biopsy was obtained from | | the patient following a brief discussion regarding the risks and benefits of the | | procedure. Patient was sedated via anesthesia in PACU - see separate note for details. | | The skin over her left posterior iliac crest was cleansed with betadine and draped in | | a sterile manner. Xylocaine 1% was used for local anesthesia. A scalpel was used to | | enlarge the insertion site. An OnControl 4 inch aspirate needle was inserted with | | the [employer] bus van driver. The first aspirate was noted to have spicules and was submitted | | for morphology studies. A second aspirate was obtained in a heparinized syringe | | and submitted for FISH as per previous abnormalities, flow cytometry and | | cytogenetics. A total of 15 mL of bone marrow was aspirated. The OnControl 4 | | inch needle was advanced using the [employer] bus van driver. A core biopsy measuring | | approximately 2 cm was obtained and submitted for morphology studies. Hemostasis | | was achieved and a pressure dressing was applied. The patient was observed for 20 | | minutes post-procedure for signs of bleeding. Pt tolerated the procedure well without | | complications. The results of this procedure will take approximately 7 to 10 | | days for full analysis. However, preliminary results should be available within | | the next 24 to 48 hours. ELLIS MEJIA PA-C,NAOMY [facility] [address] | | [facility] Mailcode: [id number] [place] [address] | + + LESS COMMON INDIVIDUAL FISH PROBES, BONE MARROW/CORE (08/01/2017 3:04 PM) + + + + | Component | Value | Ref Range | + + + + | PREVIOUS | Rodriguez 5q EGR1 (5q31) (SO) / D5S23, I5Q236 | | | ABNORMALITIES PROBE | (5p15.2) () | | | NAME ONE | | | + + + + | CELLS SCORED PROBE | 200 | | | ONE | | | + + + + + + + | Specimen | Performing Laboratory | + + + | Bone marrow | [facility] [address] | | | [address] [place] [address] | + + + AML FISH PANEL, BONE MARROW/CORE (08/01/2017 3:04 PM) + +--------+ + | Component | Value | Ref Range | + +--------+ + | AML FISH PANEL | Normal | | + +--------+ + | CS METASYSTEMS | 200 | | | X7S344 (7Q31) (SO) / | | | | CEP 7 (SG) | | | + +--------+ + | CS METASYSTEMS | 200 | | | PML(15Q22)(SO)/MAURA( | | | | 17Q21)(SG)T(15;17) | | | + +--------+ + | CS METASYSTEMS | 200 | | | BCR(22Q11.2)(SG)/ABL | | | | (9Q34)(SO)+ASS(9Q34) | | | + +--------+ + | CELLS SCORED RODRIGUEZ | 200 | | | CBFB INV(16) (16Q22) | | | | BREAK-APART | | | + +--------+ + | CELLS SCORED RODRIGUEZ | 200 | | | XVOD8X4 (8Q21.3) | | | | (SO) / RUNX1 (21Q22) | | | | (SG) T(8;21) | | | + +--------+ + | CELLS SCORED BIOCARE | 200 | | | MLL (11Q23) | | | | BREAK-APART | | | + +--------+ + | CELLS SCORED RODRIGUEZ | 200 | | | MECOM (3Q26.2) (SO) | | | | / RPN1 (3Q21.3) (SG) | | | | DUAL FUSION | | | + +--------+ + | CS METASYSTEMS | 200 | | | DEK(6P22)(SG)/IBC253 | | | | (9Q34)(SO)T(6;9)DC,D | | | + +--------+ + + + + | Specimen | Performing Laboratory | + + + | Bone marrow | [address] | | | [address] [place] [address] | + + + FLT3 ITD, BONE MARROW (08/01/2017 3:04 PM) + + + + | Component | Value | Ref Range | + + + + | FLT3 ITD | Positive. 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 Recently the | | | | completion of the RATIY clinical trial | | | | (CALGB [id number]) has led to the FDA approval | | | | in July 2016 of the multitargeted kinase | | | | inhibitor midostaurin for the treatment of | | | | adult patients with newly diagnosed AML | | | | harboring either the FLT3-ITD or FLT3-TKD | | | | mutations (Shade Prado, Blood, 2017, | | | | 129:7399-0772). The quantitative reporting | | | | units for the FLT3 ITD mutation is the | | | | allelic ratio, which is the ratio of the | | | | expanded ITD electrophoresis product (peak | | | | area) divided the wild-type FLT3 | | | | electrophoresis product (peak area). The | | | | mutant allele frequency is calculated by | | | | dividing the ITD product (peak area) by the | | | | total FLT3 product (peak area). The | | | | midostaurin RATIFY clinical trial | | | | distinguished a "high" versus "low" | | | | FLT3-ITD by an allelic ratio above or below | | | | 0.7. The LeukemiaNet (ELN) | | | | consensus group defines a "high" FLT3 ITD | | | | (with adverse risk) as an allelic ratio | | | | above 0.5, and a "low" FLT3-ITD as an | | | | allelic ratio below 0.5 (not adverse risk) | | | | (Dohner et al., Blood, 2017, 129:424-447). | | | | The FLT3 kinase is also a specific target | | | | of several other tyrosine kinase inhibitors | | | | (such as quizartinib and gilteritinib) | | | | that may be recruiting patients for | | | | clinical trials. Comment: For the purposes | | | | of improved patient care, the findings for | | | | FLT3-ITD gene mutation analysis are issued | | | | in this separate report. Next generation | | | | sequencing analysis is being performed and | | | | a comprehensive interpretation of all 76 | | | | genes analyzed in this case will be | | | | reported in a separate report upon | | | | completion of the remaining tests. | | + + + + | METHOD(S) | For the ITD assay performed in our | | | | laboratory, blood, or bone marrow-derived | | | | DNA is PCR amplified with FLT3 | | | | juxtamembrane domain (exon 14) primers. | | | | The FLT3 ITD PCR product is then analyzed | | | | by capillary electrophoresis to detect the | | | | presence or absence of length variations | | | | attributable to an ITD. The low-level | | | | sensitivity limit of the assay is ~1-5%, | | | | such that a mutant cell (or tumor cell) | | | | population below this detection limit will | | | | not be reliably detected. | | + + + + | DISCLAIMER | This test was developed and its performance | | | | characteristics determined by the [facility] | | | | [facility]. It has | | | | not been cleared or approved by the Food | | | | and Drug Administration. FDA approval is | | | | not required for the clinical use of the | | | | test, and therefore validation was done as | | | | required under the requirements of the | | | | Clinical Laboratory Improvement Act of 1988 | | | | (CLIA). The [facility] | | | | Laboratories are fully licensed by the | | | | [facility] under CLIA and are | | | | accredited by the [employer] | | | | Pathologists (CAP). Laboratory | | | | Director: Edy Vang M.D., | | | | Ph.D | | + + + + + + + | Specimen | Performing Laboratory | + + + | Bone marrow | [facility] [address] | | [address] [place] [address] | + + + COMPREHENSIVE HEME PANEL SEQ, BONE MARROW (08/01/2017 3:04 PM) + + + + | Component | Value | Ref Range | + + + + | COMPREHENSIVE HEME | See Interpretation. | | | PANEL SEQ | | | + + + + | INTERPRETATION | [employer] Comprehensive Heme Sequencing: | | | | Mutation Screening by Next-Generation | | | | Sequencing Specimen ID: [id number] | | | | Type: Bone Marrow AspirateCollection | | | | Date: 08/01/2017Indication for Testing: | | | | Acute myeloid leukemia (AML) and related | | | | neoplasms Clinical History: AML. The | | | | previously identified variant(s) in DNMT3A, | | | | NPM1, FLT3 (ITD) have been detected. The | | | | previously identified variant(s) in the | | | | NRAS, FLT3 (p.N841K and D835A) and TET2 | | | | genes are not detectable in the current | | | | sample (limit of detection 0.5%). 1 new | | | | variant in WT1 has been been detected. | | | | Variant(s) of Strong Clinical Significance | | | | (Tier I) Gene: TTF8Ahohqpe: | | | | p.L773xqftnjBSOIZMHRBNAQYAQKcfsmrq allele | | | | frequency (VAF): 22%Variant allele ratio: | | | | 0.58 Variant ID: NAFLT3 ([id number]): | | | | c.1780_1787insGTGACCGGCTCCTCAGATAATGAGTACTT | | | | CTACGTTGATTTC; | | | | [id number]>TGAAATCAACGTAGAAGTACTCATTAT | | | | CTGAGGAGCCGGTCACLast Observed: 04/04/2017; | | | | Allele frequency: 0%03/03/2017; Allele | | | | frequency: 75%03/14/2016; Allele frequency: | | | | 0%02/15/2016; Allele frequency: 0% Gene: | | | | LMKJ1BFtgrhrm: p.Q949KTnwutrh allele | | | | frequency (VAF): 16%Variant ID: | | | | [id number]; [id number], DDUN24080KAUS8M | | | | (PMIO05299.1):c.2644C>T; | | | | chr2:[id number]>ALast Observed: 04/04/2017; | | | | Allele frequency: 19%03/03/2017; Allele | | | | frequency: 46%03/14/2016; Allele frequency: | | | | 14%02/15/2016; Allele frequency: 45% Gene: | | | | NOQ7Amsovmo: p.W288fs*12Variant allele | | | | frequency (VAF): 14%Variant ID: | | | | [id number]; [id number] | | | | (OSES3830.1):c.859_860insTCTG; | | | | chr5:[id number]>CTCTGLast Observed: | | | | 04/04/2017; Allele frequency: 0%03/03/2017; | | | | Allele frequency: 44%03/14/2016; Allele | | | | frequency: 0%02/15/2016; Allele frequency: | | | | 46% Variant(s) of Potential Clinical | | | | Significance (Tier II) Gene: OZ7Yxndmqx: | | | | p.V362fs*69Variant allele frequency (VAF): | | | | 12%Variant ID: [id number] | | | | (NYZO61753.1):c.1083_1088TGTACG>GA; | | | | chr11:[id number]>CTCLast Observed: | | | | 04/04/2017; Allele frequency: 0%03/03/2017; | | | | Allele frequency: 0%03/14/2016; Allele | | | | frequency: 0%02/15/2016; Allele frequency: | | | | 0% ADDITIONAL DETAILS ON NEW VARIANTS | | | | IDENTIFIED IN THIS SPECIMEN: Variant: WT1 | | | | p.V362fs*69 Multiple clinical trials are | | | | available and may be recruiting patients | | | | with hematologic diseases that bear | | | | mutations in the WT1 gene | | | | (ClinicalTrials.gov). WT1 has been reported | | | | to convey a relatively poor prognosis | | | | (Saul, Blood 116(5):788-92, 2009; Gilda, | | | | Blood 115:10338, 2009). No targeted therapy | | | | is available. Case reviewed by:Dora | | | | Ranjit/Molecular TechnologistDaniel Sebastian | | | | Go, Ph.D./Hematopathologist LOW LIMIT | | | | OF DETECTION: The low limit of detection | | | | for this assay is 2% VAF at a minimal 900 | | | | read depth (5% at 700 read depth and 7% at | | | | 500 read depth). This case has an average | | | | read depth of 3316. However, a small | | | | fraction (100 minus the percentage in the | | | | parenthesis) of the targeted regions of the | | | | following genes: ASXL1 (99%), NOTCH2 | | | | (99%), RAD21 (99%), JAK1 (98%), GATA1 | | | | (97%), FOXO1 (97%) have a higher low limit | | | | of detection of 10-15% VAF (if less than | | | | 250 read depth), or could harbor mutations | | | | that were missed by this analysis if the | | | | read depth is below 100. Further | | | | information on these low-coverage regions | | | | is available upon request. Low read counts | | | | may reflect changes in gene copy number or | | | | technical issues with the sample. Reviewed | | | | and electronically signed by DANIEL Aponte | | | | MD CARRINGTON,PhD08/19/2017 11:14 AM | | | | is available upon request. Low read counts may reflect changes in ge ne copy number or technical issues with the sample. | | | | | | | |Reviewed and electronically signed by DANIEL SEBASTIAN MD,PhD | | | |08/19/2017 11:14 AM | | + + + + | TIER METHOD | Genomic variants have been classified in | | | | accordance with 2017 standards and | | | | guidelines recommended by AMP/ASCO/CAP (1) | | | | and currently available resources. In | | | | brief, Tier I variants have strong evidence | | | | linking genomic alterations to specific | | | | therapies, or are included in clinical | | | | practice guidelines or well-powered studies | | | | confirming their diagnostic, predictive, | | | | prognostic, and/or disease monitoring | | | | significance. Tier II variants have either | | | | targeted therapies for different tumor | | | | types, in preclinical or clinical trials, | | | | or have less strong evidence for their | | | | diagnostic, predictive, prognostic, and/or | | | | disease monitoring roles. Tier III variants | | | | are neither observed in healthy | | | | populations nor have convincing published | | | | evidence of cancer association. The | | | | classification of a variant is dependent on | | | | the specific clinical scenario, which | | | | could change in a different patient and/or | | | | in a new sample from the same patient, or | | | | if there are new data/information relevant | | | | to this variant. | | + + + + | METHOD(S) | This test is designed to detect alterations | | | | in a panel of 76 genes, many of which are | | | | known to play a role in leukemia and | | | | lymphoma pathogenesis, diagnosis, | | | | prognosis, response to therapy, or disease | | | | monitoring. These genes include: Signaling | | | | | | | | genes:OXZ8GFBUAMOPISFSBQZ0XLBD7RNEHI4TEY5MX | | | | EF1UYN96JSNNWV8UBZU8EWW1MCH8GRSQDZIGKNOZT88 | | | | PCDLC9PSIKQ6JTFKUGVU6MRNG1ZYCF61 | | | | Chromatin-modifying | | | | genes:GFDT3CSTVBSTC931KUI0BYK0FEAPOYMC59 | | | | DNA methylation-associated | | | | genes:QMDC8AAQL3UKR1QJI7 Industrial Engineering Technologist | | | | factors:LLLULMN8ERBPURRCWJMRDGU2QKEK2QZDX7I | | | | GGX5EE3TVDN2CMF3OXWS6TVHKBTH2EJPW9BJCZ2GGS5 | | | | Spliceosome-complex | | | | genes:LMFK4KQ1U8F1BS2BREG3 Cohesion-complex | | | | genes:HNM9LAOD5IJIJ6BNF72 Tumor suppressor | | | | genes:PP15XE9YEF6 and | | | | others:OMR5OIHE9OFKI44UH09BUJQ4GLJRK9NEPVOD | | | | ENR9UHPNRM1FRAJVH68BOQPO6 All the coding | | | | exons and the canonical splice sites of | | | | these genes, except CARD11, are sequenced. | | | | Selected coding exons (NM_032415.4:3-9, 15, | | | | 21) are sequenced for CARD11. Genomic DNA | | | | is extracted and purified from blood, bone | | | | marrow or other hematopoietic tissue from | | | | fresh or fixed samples. If the submitted | | | | sample is from FFPE, the specimen is | | | | examined microscopically and, if deemed | | | | helpful to enhance sensitivity, genomic DNA | | | | is extracted and purified from micro | | | | dissected, tumor-rich areas. Mutations are | | | | screened by massively parallel sequencing | | | | (next-generation sequencing) using a | | | | combination of multiplexed PCR (customized | | | | Call[employer]Cloud targeted DNA panel with molecular | | | | barcodes) and sequencing on an Illumina | | | | platform ([id number]). Sequencing data is | | | | then aligned against a reference genome | | | | [hg19]. An in-house bioinformatics | | | | analysis pipeline has been used that | | | | employs multiple established variant | | | | calling tools (FreeBayes, MuTect2, and | | | | Scalpel) and variant annotation tools | | | | (Oncotator). The assay is validated | | | | according to AMP guidelines (2,3). With | | | | regard to insertions and deletions, this | | | | test is known to be biased toward detecting | | | | shorter alterations. Therefore, a | | | | supplementary non-biased size-based assay | | | | is concomitantly run to ensure that | | | | internal tandem duplication insertions in | | | | FLT3 exon 14 are not missed. Sequencing | | | | often does not detect large deletions or | | | | duplications in other genes targeted on | | | | this panel. In addition, this test does not | | | | detect mutations in the regulatory | | | | regions, deep introns, or highly homologous | | | | regions containing pseudogenes and/or | | | | highly repetitive regions. This assay is | | | | intended to detect somatically-acquired | | | | variants in cancer-associated genes and is | | | | not intended to detect germline variants | | | | for the diagnosis of inherited cancer | | | | predisposition syndromes. If an | | | | inherited variant is suspected, other | | | | sequencing tests may be indicated, and | | | | genetic counseling may be warranted. | | + + + + | REFERENCES | 1.Jacque WISEMAN, et al; 2017, J Mol Diagn. | | | | 19(1):4-23.2.Lory LJ, et al; 2017, J | | | | Mol Diagn. 19(3):341-365.3.Fransisco S, et al; | | | | 2018, J Mol Diagn. 20(1):4-27.4.NCCN | | | | guidelines: | | | | https://www.nccn.org/professionals/physicia | | | | n_gls/default.aspx5.The 2017 ELN | | | | recommendations: Blood. 2017; | | | | 129(4):424-447.6.The 2016 revision to the | | | | WHO classification: Blood. 2016; | | | | 127(20):2372-436. 7.Catalogue Of Somatic | | | | Mutations In Cancer: | | | | http://cancer.julia.ac.uk/cosmic8.ClinVar: | | | | | | | | https://www.ncbi.nlm.nih.gov/clinvar/9.SHIRLEY- | | | | Clinical Knowledgebase (CKB): | | | | https://ckb.BuildingOps.org/10.CIViC: | | | | https://civicdb.org/home | | + + + + | DISCLAIMER | This test was developed and its performance | | | | characteristics determined by the [facility] | | | | [facility]. It has | | | | not been cleared or approved by the Food | | | | and Drug Administration. FDA approval is | | | | not required for the clinical use of the | | | | test, and therefore validation was done as | | | | required under the requirements of the | | | | Clinical Laboratory Improvement Act of 1988 | | | | (CLIA). The [facility] | | | | Laboratories are fully licensed by the | | | | [facility] under CLIA and are | | | | accredited by the [employer] | | | | Pathologists (CAP). Laboratory | | | | Director: Edy Vang M.D., | | | | Ph.D | | + + + + + + + | Specimen | Performing Laboratory | + + + | Bone marrow | [facility] [address] | | | [address] [place] [address] | + + + GENETRAILS COMPREHENSIVE HEME PANEL, BONE MARROW (08/01/2017 3:04 PM) + + + | Specimen | Performing Laboratory | + + + | Bone marrow | | + + + + + | Narrative | + + | The following orders were created for panel order GENETRAILS COMPREHENSIVE HEME PANEL, | | BONE MARROW. Procedure | | Abnormality Status | | --------- | | ------ COMPREHENSIVE | | HEME PANEL...[[id number]] Final | | result FLT3 ITD, BONE | | MARROW[[id number]] Final | | result Please view results for these tests on the | | individual orders. | + + CYTOGENETICS BONE MARROW CHROMOSOME ANALYSIS (W/FISH) (08/01/2017 3:04 PM) + + + + | Component | Value | Ref Range | + + + + | Impressions and | KARYOTYPE: | | | Recommendations | 46,X,t(X;7)(q21;q32)[18]/46,XX[2] Eighteen | | | | of twenty metaphase cells examined had the | | | | t(X;7) seen previously, two cells appeared | | | | normal female. FISH was performed with an | | | | AML probe panel, as listed below. All | | | | results were within normal limits. Thank | | | | you very much for your referral. If you | | | | have any questions regarding this report or | | | | future cytogenetic testing issues, please | | | | feel free to contact us. Reason for | | | | Referral: aml The clinical interpretation | | | | was made by the clinical supervisor cutting department. | | | | | | | | | | | | | | | | | | + + + + | BONE MARROW | Abnormal | | | CHROMOSOME ANALYSIS | | | | (W/FISH) | | | + + + + | Chromosome Results | Abnormal | | + + + + | Number of Cells | 3 | | | Karyotpyed | | | + + + + | Number of Cells | 20 | | | Analyzed: | | | + + + + | Number of Cells | N/A | | | Counted: | | | + + + + | Banding Level: | <=400 | | + + + + | Banding Method: | GTW | | + + + + | DISCLAIMER | This test was developed and its performance | | | | characteristics determined by the [facility] | | | | [facility]. It has | | | | not been cleared or approved by the Food | | | | and Drug Administration. FDA approval is | | | | not required for the clinical use of the | | | | test, and therefore validation was done as | | | | required under the requirements of the | | | | Clinical Laboratory Improvement Act of 1988 | | | | (CLIA). The [facility] | | | | Laboratories are fully licensed by the | | | | [facility] under CLIA and are | | | | accredited by the [employer] | | | | Pathologists (CAP). Laboratory | | | | Director: Edy Vang M.D., | | | | Ph.D Electronically reviewed and signed | | | | by:Kar Mckeon, PhD, [facility] | | | | Refrigeration Manager Clinical Molecular | | | | Geneticist08/12/2017 at 8:15 AM Reviewed | | | | and electronically signed by OLIVIA | | | | MD RENAY,[facility]08/12/2017 2:19 PM | | + + + + + + + | Specimen | Performing Laboratory | + + + | Bone marrow | [facility] [address] | | | [address] [place] [address] | + + + LEUKEMIA/LYMPHOMA MARKERS - BONE MARROW (08/01/2017 2:40 PM) + + +------ -----+ | Component | Value | Ref R severo | + + +------ -----+ | Final Pathologic | Bone marrow aspirate, clot, core biopsy and | | | Diagnosis | peripheral blood: - Residual acute myeloid | | | | leukemia (80% blasts) involving a | | | | hypocellular (5%) marrow - Pancytopenia | | | | Comment: Blast enumeration is based on | | | | immunohistochemical staining of the core | | | | biopsy. Complete immunophenotyping of the | | | | blasts is not possible due to the | | | | hemodilute nature of the sample submitted | | | | for flow cytometry. Findings discussed with | | | | Leatha Tapia NP, at 5pm on 08/02/2017. | | | | Correlation with concurrent | | | | cytogenetic/FISH and molecular studies is | | | | recommended. Case seen by:Dirk Jackson | | | | | | | | | | | | Pathology ResidentPhinati Sebastian MD, PhD | | | | | | | | | | | | Hematopathologist My electronic signature | | | | indicates that I have personally reviewed | | | | all diagnostic slides, the gross and/or | | | | microscopic portion of this report and | | | | formulated the final diagnosis. CLINICAL | | | | HISTORY: 51 yo woman with history of AML. 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 This is a | | | | day 32 marrow status post induction | | | | chemotherapy. CBC:Resulted Date and Time: | | | | 08/01/2017 0040 | | | | PDT | | | | | | | | Component Result Reference | | | | Range WHITE CELL COUNT <0.10 | | | | 3.50-10.80 K/cu mm RED CELL COUNT 2.65 | | | | 4.00-5.20 M/cu mm HEMOGLOBIN 7.6 | | | | 12.0-16.0 g/dL HEMATOCRIT 21.6 | | | | 36.0-46.0 % MCV 81.5 80.0-96.0 fL MCHC 35.2 | | | | 33.0-35.5 g/dL RDW SD 36.9 35.1-46.3 fL | | | | PLATELET COUNT 23 150-400 K/cu mm MPV | | | | 9.7 9.7-12.3 fL NRBC% 0.0 0.0-0.3 % NRBC# | | | | 0.00 0.00-0.02 K/cu mm PERIPHERAL BLOOD | | | | DIFFERENTIAL | | | | | | | | Component | | | | Result Reference Range NEUTROPHIL | | | | % 0.0-2.0 % LYMPHOCYTE % 18.0-42.0 % | | | | MONOCYTE % 3.5-9.0 % EOS % 1.0-3.0 % | | | | BASO % 0.0-2.0 % IG% 0.0-1.0 % | | | | NEUTROPHIL # 1.80-7.70 K/cu mm | | | | LYMPHOCYTE # 1.00-4.80 K/cu mm MONOCYTE | | | | # 0.10-0.90 K/cu mm EOS # 0.00-0.50 | | | | K/cu mm BASO # 0.00-0.10 K/cu mm | | | | IG# 0.00-0.10 K/cu mm PERIPHERAL BLOOD | | | | MORPHOLOGY:WBC: Essentially absent; rare | | | | unremarkable lymphocytes. RBC: | | | | Unremarkable. Platelets: Markedly | | | | decreased. BONE MARROW ASPIRATE | | | | SMEARS:Quality: Very rare hypocellular | | | | particles Blasts: Increased Myeloids: | | | | Absent maturation Erythroids: Essentially | | | | absent Megakaryocytes: Absent | | | | Lymphocytes: Scattered morphologically | | | | unremarkable lymphocytes Plasma cells: Not | | | | increased BONE MARROW DIFFERENTIAL: | | | | Preparation: Aspirate smears. Myeloids: | | | | 0% Erythroids: 3% Blasts: 64% Lymphocytes: | | | | 31% Plasma cells: 2% Total cells counted: | | | | 75 BONE MARROW BIOPSY/CLOT | | | | SECTION:Quality: Adequate. Clot section | | | | is aparticulate. Cellularity: 5% | | | | Myeloids: Absent Erythroids: Absent | | | | Megakaryocytes: Absent Infiltrate: 80% of | | | | cellularity is composed of | | | | immature-appearing cells with prominent | | | | nucleoli. The remainder is composed | | | | predominantly of stromal cells with rare | | | | unremarkable lymphocytes. FLOW | | | | CYTOMETRIC ANALYSIS: Flow cytometric | | | | demonstrates a pattern suggestive of | | | | hemodilution. No definitive blast | | | | population is identified. The majority of | | | | CD45+ events are T lymphocytes with a | | | | CD4:CD8 ratio of 1:1. B cells are | | | | essentially absent. Antibodies TestedCD4 | | | | CD5 CD8 CD10 CD13 CD14 CD16 CD19 CD33 CD34 | | | | CD45 CD56 CD64 CD117 sKappa sLambda | | | | HLA-DR IMMUNOHISTOCHEMICAL | | | | STAINS: IHC stains were performed on the | | | | biopsy. The immature-appearing mononuclear | | | | cells are positive for CD117 and negative | | | | for CD34 and CD71. CYTOGENETIC AND FISH | | | | STUDIES: Performed, see separate | | | | report. MOLECULAR | | | | STUDIES: Performed, see separate | | | | report. | | | |Blasts: 64% | | | |Lymphocytes: 31% | | | |Plasma cells: 2% | | | |Total cells counted: 75 | | | | | | | |BONE MARROW BIOPSY/CLOT SECTION: | | | |Quality: Adequate. Clot section is aparticulate. | | | |Cellularity: 5% | | | |Myeloids: Absent | | | |Erythroids: Absent | | | |Megakaryocytes: Absent | | | |Infiltrate: 80% of cellularity is composed of immature-appearing cells with prominent nucleoli. The remainder is composed predominantly of stromal cells with rare unremarkable lymphocytes. | | | | | | | |FLOW CYTOMETRIC ANALYSIS: Flow cytometric demonstrates a pattern sugges tive of hemodilution. No definitive blast population is identified. The majority of CD45+ ev ents are T lymphocytes with a CD4:CD8 ratio of 1:1. B cells are essentially absent. | | | | | | | |Antibodies Tested | | | |CD4 CD5 CD8 CD10 CD13 CD14 CD16 CD19 CD33 CD34 | | | |CD45 CD56 CD64 CD117 sKappa sLambda HLA-DR | | | | | | | | | | | |IMMUNOHISTOCHEMICAL STAINS: IHC stains were performed on the biopsy. The immature-appearing mononuclear cells are positive for CD117 and negative for CD34 and C D71. | | | | | | | |CYTOGENETIC AND FISH STUDIES: Performed, see separate report. | | | | | | | |MOLECULAR STUDIES: Performed, see separate report. | | | | | | + + +------ -----+ | Gross Description | Both the clot and core biopsy were fixed in | | | | formalin. The core biopsy was | | | | decalcified. A Alarcon-stained peripheral | | | | blood smear and a cytospin of the cell | | | | suspension were prepared. B: Bone | | | | Marrow Clot - 1.1 x 1.1 x 0.2 cmC. Bone | | | | Marrow Biopsy - 1.4 x 0.2 cm If | | | | immunohistochemical analysis (IHC) was | | | | performed, it was done to allows assessment | | | | of immunoarchitecture, which is not | | | | supplied by flow cytometry, whereas flow | | | | cytometry enables better assessment of | | | | clonality and antigen aberrancy than IHC. | | | | Analyte specific reagents are used in many | | | | laboratory tests necessary for standard | | | | medical care. This test was developed | | | | and its performance characteristics | | | | determined by [employer]. It has | | | | not been cleared or approved by the US Food | | | | and Drug Administration (FDA). FDA does | | | | not require this test to go through | | | | premarket FDA review. This test is used | | | | for clinical purposes. It should not be | | | | regarded as investigational or for | | | | research. This laboratory is certified | | | | under the Clinical Laboratory Improvement | | | | Amendments (CLIA) as qualified to perform | | | | high complexity clinical laboratory | | | | testing. | | + + +------ -----+ + + + | Specimen | Performing Laboratory | + + + | Bone marrow | [facility] [address] | | | [place] [address] | + + + CBC AND AUTO DIFF (08/01/2017 12:15 AM) + + + + | Component [...] + + + + | MCV | 81.5 | 80.0 - 96.0 fL | + + + + | MCHC | 35.2 | 33.0 - 35.5 g/dL | + + + + | RDW SD | 36.9 | 35.1 - 46.3 fL | + + + + | PLATELET COUNT | 23 (L) | 150 - 400 K/cu mm | + + + + | MPV | 9.7 | 9.7 - 12.3 fL | + [...] | | + + + + | IG% | Comment: WBC <300; differential not | 0.0 - 1.0 % | | | performed. | | [...] | | + + + + | IG# | Comment: WBC <300; differential not | 0.00 - 0.10 K/cu mm | | | performed. | | + + + + + + + | Specimen | Performing Laboratory | + + + | Blood | [facility], [address] [address] | | | [place], [place] [address] | + + + CBC, WITH DIFFERENTIAL (08/01/2017 12:15 AM) + + + | Specimen | Performing Laboratory | + + + | Blood | | + + + + + | Narrative | + + | The following orders were created for panel order CBC, WITH DIFFERENTIAL. | | Procedure | | Abnormality Status | | --------- | | ------ CBC AND AUTO | | DIFF[[id number]] Abnormal Final | | result Please view results for these tests on the | | individual orders. | + + COAGULOPATHY PANEL (INR,APTT,FIBRINOGEN) (08/01/2017 12:15 AM) + + + + | Component | Value | Ref Range | + + + + | INR | 1.22 (H) | 0.90 - 1.20 INR | + + + + | APTT | 38.2 (H) | 26.0 - 36.0 seconds | + + + + | FIBRINOGEN LEVEL | 593 (H) | 200 - 450 mg/dL | + + + + + + + | Specimen | Performing Laboratory | + + + | Blood | [facility], [address] [address] | | | [place] [address] | + + + + + | Narrative | + + | INR Therapeutic ranges for full anticoagulation: INR for Venous | | Thromboembolism (2.0 - 3.0) INR INR for most patients with | | mech. valves (2.5 - 3.5) INR APTT Therapeutic | | Range: (75 - 120) sec Heparin levels | | of 0.35 - 0.7 U/mL | + + LDH TOTAL, PLASMA (08/01/2017 12:15 AM) + +---------+ + | Component | Value | Ref Range | + +---------+ + | LD TOTAL, PLASMA | 113 | <=250 U/L | + +---------+ + | LD CMNT | No Hemo | | + +---------+ + + + + | Specimen | Performing Laboratory | + + + | Blood | [facility], [place] [address] | | | [place] [address] | + + + URIC ACID, PLASMA (08/01/2017 12:15 AM) + +---------+ + | Component | Value | Ref Range | + +---------+ + | URIC ACID, PLASMA | 1.2 (L) | 2.5 - 6.2 mg/dL | | (LAB) | | | + +---------+ + + + + | Specimen | Performing Laboratory | + + + | Blood | [facility], [place] [address] [place] [address] | | | [place] [address] | + + + PHOSPHORUS, PLASMA (08/01/2017 12:15 AM) + +-------+ + | Component | Value | Ref Range | + +-------+ + | PHOSPHORUS, PLASMA | 2.9 | 2.4 - 4.7 mg/dL | | (LAB) | | | + +-------+ + + + + | Specimen | Performing Laboratory | + + + | Blood | [facility], [place] [address] | | | [place] [address] | + + + MAGNESIUM, PLASMA (08/01/2017 12:15 AM) + +-------+ + | Component | Value | Ref Range | + +-------+ + | MAGNESIUM,PLASMA | 1.7 | 1.6 - 2.6 mg/dL | + +-------+ + + + + | Specimen | Performing Laboratory | + + + | Blood | [facility], [place] [address] | | | [place] [address] | + + + + + | Narrative | + + | Reference range change effective 12/11/16. | + + COMPLETE METABOLIC SET (NA,K,CL,CO2,BUN,CREAT,GLUC,CA,AST,ALT,BILI TOTAL,ALK PHOS,ALB,PROT TOTAL) (08/01/2017 12:15 AM) + + + + | Component | Value | Ref Range | + + + + | GLUCOSE, PLASMA | 75 | 70 - 99 mg/dL | | (LAB) | | | + + + + | BUN, PLASMA (LAB) | 4 (L) | 6 - 20 mg/dL | + + + + | CREATININE PLASMA | 0.42 (L) | 0.60 - 1.10 mg/dL | | (LAB) | | | + + + + | EGFR - | >60 | >60 mL/min | | JORDANIAN | | | + + + + | EGFR NON | >60 | >60 mL/min | | -JORDANIAN | | | + + + + | SODIUM, PLASMA (LAB) | 137 | 136 - 145 mmol/L | + + + + | POTASSIUM, PLASMA | 3.0 (L) | 3.4 - 5.0 mmol/L | | (LAB) | | | + + + + | CHLORIDE, PLASMA | 101 | 97 - 108 mmol/L | | (LAB) | | | + + + + | TOTAL CO2, PLASMA | 24 | 21 - 32 mmol/L | | [...] + + + | ALBUMIN, PLASMA | 2.1 (L) | 3.5 - 4.7 g/dL | | (LAB) | | | + + + + | ALK PHOS | 142 (H) | 42 - 98 U/L | + + + + | AST(SGOT) | 12 | <=41 U/L | + + + + | ALT (SGPT) | 15 | <=60 U/L | + + + + | ANION GAP | 12 (H) | 4 - 11 mmol/L | + + + + | ANION GAP(ALB | 16 (H) | 4 - 11 mmol/L | [...] | + + + | Blood | [facility], [place] [address] | | | [place] [address] | + + + + + | [...] Rapidly changing kidney function | + + BRONCHOSCOPY WITH BRONCHOALVEOLAR LAVAGE (07/31/2017 8:31 PM) + + | Narrative | + + | Benny Fowler MD 07/31/2017 8:35 PM Brief note. See full note of procedure | | scanned into chart. Bronchoscopy done this morning. Despite lidocaine for topical | | anesthesia and 4mg midazolam and 200 mcg fentanyl, Ms. Hutchison had significant coughing | | and gagging during the procedure. We were able to do BAL of the ANGELLA, anterior | | segment, with return of about 25mL very turbid, cellular fluid. We sent this for | | cytology and culture as well as fungal & bacterial PCR - see [facility] for pending labs. | | Cytology done to try and expedite diagnosis of fungal pneumonia. Apart from | | coughing Ms Hutchison tolerated the bronchoscopy well. Post bronch care: - it would be | | expected for her to be febrile tonight after bronch - a new fever in her certainly | | would generate concern given her neutropenia and new opacities but a low grade temp | | without other clinical change MAY just be post bronch fever Benny Fowler MD | + + X-RAY PORTABLE CHEST 1 VIEW (07/31/2017 8:20 AM) + + + | Specimen | Performing Laboratory | + + + | | [facility] VOICE RECOGNITION | + + + + + | Narrative | + + | EXAM: AR CHEST 1 VIEW 07/31/17 07:58:13 HISTORY: Post transbronchial biopsy | | COMPARISON: CT chest 07/29/17 FINDINGS: Left upper extremity PICC is unchanged. | | The cardiomediastinal silhouette is stable. Bilateral peripheral consolidative | | opacities are redemonstrated. There is no pleural effusion, pneumothorax or pulmonary | | edema. IMPRESSION: Unchanged bilateral pleural based consolidations. No | | pneumothorax following transbronchial biopsy. I have personally reviewed the | | images and, if necessary, edited the report. I agree with the report as now | | presented. | + + + + | Procedure Note | + + | Service Account, Radiant Res In Interface - 07/31/2017 9:02 AM PDT EXAM: AR CHEST 1 | | VIEW 07/31/17 07:58:13 HISTORY: Post transbronchial biopsyCOMPARISON: CT chest | | 07/29/17INDINGS: Left upper extremity PICC is unchanged. The cardiomediastinal | | silhouette is stable. Bilateral peripheral consolidative opacities are redemonstrated. | | There is no pleural effusion, pneumothorax or pulmonary edema.IMPRESSION: Unchanged | | bilateral pleural based consolidations.No pneumothorax following transbronchial biopsy.I | | have personally reviewed the images and, if necessary, edited the report. I agree with | | the report as now presented. | |Left upper extremity PICC is unchanged. The cardiomediastinal silhouette is stable. Bilater al peripheral consolidative opacities are redemonstrated. There is no pleural effusion, pneu mothorax or pulmonary edema. | | | |IMPRESSION: | | | |Unchanged bilateral pleural based consolidations. | | | |No pneumothorax following transbronchial biopsy. | | | | | |I have personally reviewed the images and, if necessary, edited the report. I agree with t he report as now presented. | + + CBC AND AUTO DIFF (07/31/2017 8:20 AM) + + + + | Component | Value | Ref Range | + + + + | WHITE CELL COUNT | <0.10 (L) | 3.50 - 10.80 K/cu mm | + + + + | RED CELL COUNT | 3.15 (L) | 4.00 - 5.20 M/cu mm | + + + + | HEMOGLOBIN | 9.1 (L) | 12.0 - 16.0 g/dL | + + + + | HEMATOCRIT | 25.8 (L) | 36.0 - 46.0 % | + + + + | MCV | 81.9 | 80.0 - 96.0 fL | + + + + | MCHC | 35.3 | 33.0 - 35.5 g/dL | + + + + | RDW SD | 37.1 | 35.1 - 46.3 fL | + + + + | PLATELET COUNT | 38 (L) | 150 - 400 K/cu mm | + + + + | MPV | 10.5 | 9.7 - 12.3 fL | + [...] | | + + + + | IG% | Comment: WBC <300; differential not | 0.0 - 1.0 % | | | performed. | | [...] | | + + + + | IG# | Comment: WBC <300; differential not | 0.00 - 0.10 K/cu mm | | | performed. | | + + + + + + + | Specimen | Performing Laboratory | + + + | Blood | [facility], [place] [address] [place] [address] | | | [place] [address] | + + + CBC, WITH DIFFERENTIAL (07/31/2017 8:20 AM) + + + | Specimen | Performing Laboratory | + + + | Blood | | + + + + + | Narrative | + + | The following orders were created for panel order CBC, WITH DIFFERENTIAL. | | Procedure | | Abnormality Status | | --------- | | ------ CBC AND AUTO | | DIFF[[id number]] Abnormal Final | | result Please view results for these tests on the | | individual orders. | + + LEUKEMIA/LYMPHOMA MARKER - CSF/BODY FLUID (07/31/2017 7:47 AM) + + + + | Component | Value | Ref Range | + + + + | Final Pathologic | Bronchoalveolar lavage, flow cytometric | | | Diagnosis | analysis: - Negative for myeloblasts Case | | | | seen by:Farnk De Guzman MD | | | | | | | | Pathology Resident Chidi Fontana MD - | | | | Hematopathologist My electronic signature | | | | indicates that I have personally reviewed | | | | all diagnostic slides, the gross and/or | | | | microscopic portion of this report and | | | | formulated the final diagnosis. CLINICAL | | | | HISTORY: 51 year-old female with | | | | recurrent acute myeloid leukemia. GROSS | | | | DESCRIPTION: Fresh bronchoalveolar fluid | | | | was received in the Flow Cytometry Lab. A | | | | Alarcon-stained cytoprep was reviewed. | | | | MICROSCOPIC DESCRIPTION: The cytoprep of | | | | the concentrated 15 fluid is comprised | | | | mostly of alveolar macrophages. No atypical | | | | cells and/or blasts are identified. | | | | IMMUNOLOGIC ANALYSIS: % of | | | | total WBC (CD45+)Myeloid Blasts Absent | | | | Summary: Flow cytometric analysis reveals | | | | no CD34+ myeloblasts. No monoclonal or | | | | aberrant lymphocytic population is present. | | | | There is increased non-specific staining. | | | | Antibodies NaushvVI69 CD14 CD16 CD33 CD34 | | | | CD45 CD56 CD64 CD117 HLA-DR CD2 CD3 CD4 | | | | CD5 CD7 CD8 CD19 CD25 CD45 CD56 (Analyte | | | | specific reagents are used in many | | | | laboratory tests necessary for standard | | | | medical care. This test was developed | | | | and its performance characteristics | | | | determined by [employer]. It has | | | | not been cleared or approved by the US Food | | | | and Drug Administration (FDA). FDA does | | | | not require this test to go through | | | | premarket FDA review. This test is used | | | | for clinical purposes. It should not be | | | | regarded as investigational or for | | | | research. The laboratory is certified | | | | under the Clinical Laboratory Improvement | | | | Amendments (CLIA) as qualified to perform | | | | high complexity clinical laboratory | | | | testing.) | | + + + + + + + | Specimen | Performing Laboratory | + + + | Bronchoalveolar | [facility] OF PATHOLOG[facility] [address] [place] [address] RD | | lavage fluid - | [place] [address] | | Broncheoalveolar | | | Lavage | | + + + BROAD-RANGE PCR (07/31/2017 7:47 AM) + + + + | Component | Value | Ref Range | + + + + | MISC REF TEST NAME | Broad Range PCR (all 3), BAL | | + + + + | MISC REF TEST RESULT | | | + + + + | NORMAL RANGE | | | + + + + | REFERRAL LAB NAME | Test performed by : | | | | [facility] | | | | [address] [facility] | | | | [place] [address] | | + + + + + + + | Specimen | Performing Laboratory | + + + | Bronchoalveolar | [facility] | | lavage fluid - Lung | | + + + + + | Narrative | + + | See scanned report for Technical Results and further Interpretation and Comments. | | | | | | | + + RESPIRATORY PATHOGEN PANEL PCR (07/31/2017 7:47 AM) + + + + | Component | Value | Ref Range | + + + + | ADENOVIRUS PCR | Not Detected | Not Detected | + + + + | CORONAVIRUS 229E PCR | Not Detected | Not Detected | + + + + | CORONAVIRUS HKU1 PCR | Not Detected | Not Detected | + + + + | CORONAVIRUS NL63 PCR | Not Detected | Not Detected | + + + + | CORONAVIRUS OC43 PCR | Not Detected | Not Detected | + + + + | METAPNEUMOVIRUS PCR | Not Detected | Not Detected | + + + + | RHINOVIRUS/ENTEROVIR | Not Detected | Not Detected | | US PCR | | | + + + + | INFLUENZA A PCR | Not Detected | Not Detected | + + + + | INFLUENZA A SUBTYPE | Not Detected | Not Detected | | H1 PCR | | | + + + + | INFLUENZA A H1-2009 | Not Detected | Not Detected | | PCR | | | + + + + | INFLUENZA A H3 PCR | Not Detected | Not Detected | + + + + | INFLUENZA B PCR | Not Detected | Not Detected | + + + + | PARAINFLUENZA 1 PCR | Not Detected | Not Detected | + + + + | PARAINFLUENZA 2 PCR | Not Detected | Not Detected | + + + + | PARAINFLUENZA 3 PCR | Not Detected | Not Detected | + + + + | PARAINFLUENZA 4 PCR | Not Detected | Not Detected | + + + + | RSV PCR | Not Detected | Not Detected | + + + + | BORDETELLA PERTUSSIS | Not Detected | Not Detected | | PCR | | | + + + + | CHLAMYDOPHILA | Not Detected | Not Detected | | PNEUMONIAE PCR | | | + + + + | MYCOPLASMA | Not Detected | Not Detected | | PNEUMONIAE PCR | | | + + + + + + + | Specimen | Performing Laboratory | + + + | Bronchoalveolar | [facility], [facility] [address] | | lavage fluid - | [place] [address] | | Broncheoalveolar | | | Lavage | | + + + LEGIONELLA SPECIES BY QUALITATIVE PCR (07/31/2017 7:47 AM) + + + + | Component | Value | Ref Range | + + + + | LEGIONELLA | Not Detected | | | PNEUMOPHILA BY PCR | | | + + + + | LEGIONELLA SPECIES | Not DetectedComment: INTERPRETIVE | | | BY QUALITATIVE PCR | INFORMATION: Legionella species by | | | | Qualitative PCR A negative result does not | | | | rule out the presence of PCR inhibitors in | | | | the patient specimen or test-specific | | | | nucleic acid in concentrations below the | | | | level of detection by this test. Test | | | | developed and characteristics determined by | | | | [employer]. See Compliance | | | | Statement B: [employer]/CSPerformed by | | | | [employer],[address] [place] [address] | | | | [id number] rxj.[employer] | | | | MD Darren, Lab. Director | | + + + + | SOURCE, INF SER/PCR | BAL | | + + + + + + + | Specimen | Performing Laboratory | + + + | Bronchoalveolar | [facility] [address] [facility] | | lavage fluid - Lung | [place] [address] | + + + NON PRINTER HELPER CYTOLOGY (07/31/2017 7:47 AM) + + + + | Component | Value | Ref Range | + + + + | Clinical History | AML patient with new pulmonary opacities | | | | concerning for infection. | | + + + + | Final Pathologic | A. Lung; Negative for malignancy - No | | | Diagnosis | fungal organisms seen on GMS Case seen | | | | by:Lani Branch, SCT(ASCP) - | | | | CytotechnologistEmily Richard MD | | | | | | | | Cytopathology FellowCollin Jorgensen MD | | | | | | | | Pathologist My electronic signature | | | | indicates that I have personally reviewed | | | | all diagnostic slides, the gross and/or | | | | microscopic portion of this report and | | | | formulated the final diagnosis. | | | | | | + + + + | Microscopic Details | Adequacy: Satisfactory for evaluation. | | | | Organisms: No organisms identified on GMS | | | | fungal stain. | | | | | | | | | | | | | | | | | | | | | | | | | | + + + + | Gross Description | A. Received is 10 mL of cloudy white fluid | | | | for cytologic evaluation. One [employer] | | | | slide and GMS prepared. A cell block was | | | | not performed. | | + + + + + + + | Specimen | Performing Laboratory | + + + | Fluid - Lung | [facility] [address] | | | [place] [address] | + + + CULTURE, FUNGAL EXCEPT BLOOD, SKIN, HAIR, NAIL (07/31/2017 7:46 AM) + + + | Specimen | Performing Laboratory | + + + | Bronchoalveolar | [facility] [place] [address] [address] [place], [place] | | lavage fluid - Lung | [address] | + + + + + | Narrative | + + | Culture Report: No fungus isolated at 3 weeks. | + + NOCARDIA CULTURE, RULE OUT (07/31/2017 7:46 AM) + + + | Specimen | Performing Laboratory | + + + | Bronchoalveolar | [facility] [place] [address] [place] | | lavage fluid - Lung | [address] | + + + + + | Narrative | + + | Culture Report: Nocardia not isolated | + + CULTURE, BRONCHIAL LAVAGE (07/31/2017 7:46 AM) + + + | Specimen | Performing Laboratory | + + + | Bronchoalveolar | [facility] [address] [place], [place] | | lavage fluid - Lung | [address] | + + + + + | Narrative | + + | Culture Report: No growth Gram Stain: No polymorphonuclear cells Rare | | squamous epithelial cells No organisms seen | + + ASPERGILLUS GALACTOMANNAN ANTIGEN, BAL (07/31/2017 7:45 AM) + + + + | Component | Value | Ref Range | + + + + | ASP GAL INDEX | 0.11 | | + + + + | ASPERGILLUS | NegativeComment: INTERPRETIVE INFORMATION: | Negative | | GALACTOMANNAN | Aspergillus Galactomannan EIA, Broncho A | | | ANTIGEN, BAL | BAL galactomannan index of greater than or | | | | equal to 0.5is considered positive. This | | | | result should be interpreted in the | | | | context of patient history, clinical | | | | signs/symptoms, and other routine | | | | diagnostic tests (e.g., culture, histologic | | | | examination of biopsy material, and | | | | radiographic imaging).Performed by [facility] | | | | [facility],[address] [place] [address],[place] [address] | | | | [phone].[employer], [place], | | | | Olive ANTUNEZ. Director | | + + + + + + + | Specimen | Performing Laboratory | + + + | Bronchoalveolar | [facility] [address] [facility] | | lavage fluid - Lung | [place] [address] | + + + + + | Narrative | + + | Test performed by [facility] Syed [place] [address] | | [phone] www.[employer] | | | | | + + FLEXIBLE BRONCHOSCOPY (07/31/2017 7:32 AM) + + + | Specimen | Performing Laboratory | + + + | | [facility] | + + + + + | Narrative | + + | Procedure Date: 07/31/2017 Patient Name: Rhea Hutchison Order #: [id number] | | Date of : 1965 CSN: [id number] Admit Type: Inpatient Room: OR | | Procedure: Bronchoscopy | | Indications: Diagnostic bronchoalveolar lavage, Bilateral | | infiltrate, Immune compromised with | | pneumonia, Abnormal CT scan of chest | | Providers: BENNY FOWLER MD, ANTONINO YBARRA MD (Fellow), | | KAR AGGARWAL MD, [facility] | | Referring MD: ANTONINO YBARRA MD Requesting Physician: | | Medicines: Lidocaine 4% applied to upper airway 20 mL, Lidocaine | | 2% applied to cords 8 mL, Lidocaine 2% | | applied to the tracheobronchial tree 6 mL, | | Fentanyl 200 mcg IV, Midazolam 4 mg IV | | Complications: No immediate complications | | Procedure: Pre-Anesthesia Assessment: | | - A History and Physical has been performed. | | The patient's medications, allergies and | | sensitivities have been reviewed. | | - The risks and benefits of the procedure | | and the sedation options and risks were | | discussed with the patient. All questions | | were answered and informed consent was | | obtained. - ASA Grade Assessment: III - A | | patient with severe systemic disease. | | - Airway Examination: normal oropharyngeal | | airway and Mallampati Class III (part of | | the uvula and soft palate visualized). | | - Shaw Protocol: | | - Pre-procedure Verification: Prior to the | | procedure, the patient's identity was | | verified by full name, date of and | | medical record number. The patient's | | identity was verified on all pertinent | | medical records, including History and | | Physical, nursing assessment, radiology | | results and other test results. Also prior to | | the procedure, a History and Physical was | | performed, and patient medications, | | allergies and sensitivities were reviewed. | | The patient's tolerance of previous | | anesthesia was reviewed. The risks and | | benefits of the procedure and the sedation | | options and risks were discussed with the | | patient. All questions were answered and | | informed consent was obtained. - Marking: | | The endoscopic procedure was visually marked | | on a patient wrist band delineating the | | patient name, proposed procedure and | | bronchoscopist's initials. - Time-Out: | | Prior to the start of the procedure, the | | patient's identification, proposed | | procedure, accurate signed consent, | | correctly labeled images and records, and | | need for prophylactic antibiotics were verified by | | the physician and the rim technician in the | | procedure room in the endoscopy suite. | | - The risks and benefits of the procedure | | and the sedation options and risks were | | discussed with the patient. All questions | | were answered and informed consent was | | obtained. - The anesthesia plan was to use | | moderate sedation/analgesia. | | After I obtained informed consent, the scope | | was passed under direct vision. | | Throughout the procedure, the patient's | | blood pressure, pulse, and oxygen saturations | | were monitored continuously. The Olympus | | BF-Q190 S/N [id number] bronchoscope was | | introduced through the mouth and advanced | | to the tracheobronchial tree of both | | lungs. The procedure was accomplished | | without difficulty. The patient tolerated | | the procedure well. Findings: Bronchoalveolar lavage was performed in the ANGELLA | | anterior segment (B3) of the lung and sent for cell count, bacterial | | culture, viral smears & culture, fungal & AFB analysis and cytology for | | immunocompromised host protocol. 120 mL of fluid were instilled. 37 mL were | | returned. The return was turbid. There were no mucoid plugs in the return | | fluid. The oropharynx appears normal. The larynx appears normal. The vocal | | cords appear normal. The subglottic space is normal. The trachea is of | | normal caliber. The jose is sharp. The tracheobronchial tree was | | examined to at least the first subsegmental level. Bronchial mucosa and | | anatomy are normal; there are no endobronchial lesions, and no secretions. | | Moderate Sedation: Moderate (conscious) sedation was personally administered | | by the endoscopist. The following parameters were monitored: oxygen | | saturation, heart rate, blood pressure, respiratory rate, EKG, adequacy of | | pulmonary ventilation, and response to care. Total physician intraservice | | time was 40 minutes. Impression: - Bronchoalveolar | | lavage - Bilateral infiltrate | | - Immune compromised with pneumonia | | - Abnormal CT scan of chest | | - Bronchoalveolar lavage was performed. | | - The examination was normal. | | Recommendation: - Return patient to oncology [facility] for ongoing care. | | - Await BAL results. | | - Please contact the pulmonary consult | | service if there are any concerns related | | to this procedure. Attending Participation: I was present and participated | | during the entire procedure, including non-jc portions. Benny Fowler MD | | BENNY FOWLER MD 07/31/2017 12:31:52 PM Number of Addenda: 0 Note Initiated On: | | 07/31/2017 7:32 AM Estimated Blood Loss: Estimated blood loss: none. | + + PRODUCT - PLATELET PHERESIS LEUKOREDUCED (07/31/2017 12:47 AM) + + + + | Component | Value | Ref Range | + + + + | PRODUCT DESCRIPTION | PLATELETS PHERESIS, LEUKOCYTE REDUCED, | | | | IRRADIATED | | + + + + | PRODUCT UNIT # | [id number] | | + + + + | UNIT ABO | O | | + + + + | UNIT RH | POS | | + + + + | STATUS OF UNIT | Presumed Transfused | | + + + + | EXPIRATION DATE | [id number] | | + + + + | BLOOD TYPE BARCODE | 5100 | | + + + + | BLOOD PRODUCT CODE | [id number] | | + + + + + + + | Specimen | Performing Laboratory | + + + | | [facility], [facility] [address] | | | [address] [place] [address] | + + + PRODUCT - RED CELLS LEUKOREDUCED (07/31/2017 12:47 AM) + + + + | Component | Value | Ref Range | + + + + | PRODUCT DESCRIPTION | -1 RED BLOOD CELLS ADENINE-SALINE ADDED | | | | LEUKOCYT | | + + + + | PRODUCT UNIT # | [id number] | | + + + + | UNIT ABO | O | | + + + + | UNIT RH | POS | | + + + + | STATUS OF UNIT | Presumed Transfused | | + + + + | EXPIRATION DATE | [id number] | | + + + + | BLOOD TYPE BARCODE | 5100 | | + + + + | BLOOD PRODUCT CODE | [id number] | | + + + + + + + | Specimen | Performing Laboratory | + + + | | [facility] [address] [facility] | | | [place] [address] | + + + CBC AND AUTO DIFF (07/31/2017 12:14 AM) + + + + | Component | Value | Ref Range | + + + + | WHITE CELL COUNT | <0.10 (L) | 3.50 - 10.80 K/cu mm | + + + + | RED CELL COUNT | 2.48 (L) | 4.00 - 5.20 M/cu mm | + + + + | HEMOGLOBIN | 7.2 (L) | 12.0 - 16.0 g/dL | + + + + | HEMATOCRIT | 20.4 (L) | 36.0 - 46.0 % | + + + + | MCV | 82.3 | 80.0 - 96.0 fL | + + + + | MCHC | 35.3 | 33.0 - 35.5 g/dL | + + + + | RDW SD | 36.5 | 35.1 - 46.3 fL | + + + + | PLATELET COUNT | 11 (L) | 150 - 400 K/cu mm | + + + + | MPV | 9.4 (L) | 9.7 - 12.3 fL | [...] | | + + + + | IG% | Comment: WBC <300; differential not | 0.0 - 1.0 % | | | performed. | | [...] | | + + + + | IG# | Comment: WBC <300; differential not | 0.00 - 0.10 K/cu mm | | | performed. | | + + + + + + + | Specimen | Performing Laboratory | + + + | Blood | [facility], [facility] [address] | | | [place] [address] | + + + PHOSPHORUS, PLASMA (07/31/2017 12:14 AM) + +-------+ + | Component | Value | Ref Range | + +-------+ + | PHOSPHORUS, PLASMA | 2.9 | 2.4 - 4.7 mg/dL | | (LAB) | | | + +-------+ + + + + | Specimen | Performing Laboratory | + + + | Blood | [facility], C[facility] [address] | | | [facility] [place] [address] | + + + MAGNESIUM, PLASMA (07/31/2017 12:14 AM) + +-------+ + | Component | Value | Ref Range | + +-------+ + | MAGNESIUM,PLASMA | 1.7 | 1.6 - 2.6 mg/dL | + +-------+ + + + + | Specimen | Performing Laboratory | + + + | Blood | [facility], [facility] [address] | | | [place] [address] | + + + + + | Narrative | + + | Reference range change effective 12/11/16. | + + CBC, WITH DIFFERENTIAL (07/31/2017 12:14 AM) + + + | Specimen | Performing Laboratory | + + + | Blood | | + + + + + | Narrative | + + | The following orders were created for panel order CBC, WITH DIFFERENTIAL. | | Procedure | | Abnormality Status | | --------- | | ------ CBC AND AUTO | | DIFF[[id number]] Abnormal Final | | result Please view results for these tests on the | | individual orders. | + + COMPLETE METABOLIC SET (NA,K,CL,CO2,BUN,CREAT,GLUC,CA,AST,ALT,BILI TOTAL,ALK PHOS,ALB,PROT TOTAL) (07/31/2017 12:14 AM) + + + + | Component | Value | Ref Range | + + + + | GLUCOSE, PLASMA | 114 (H) | 70 - 99 mg/dL | | (LAB) | | | + + + + | BUN, PLASMA (LAB) | 5 (L) | 6 - 20 mg/dL | + + + + | CREATININE PLASMA | 0.45 (L) | 0.60 - 1.10 mg/dL | | (LAB) | | | + + + + | EGFR - | >60 | >60 mL/min | | JORDANIAN | | | + + + + | EGFR NON | >60 | >60 mL/min | | -JORDANIAN | | | + + + + [...] + + + | ALK PHOS | 154 (H) | 42 - 98 U/L | + + + + | AST(SGOT) | 11 | <=41 U/L | + + + + | ALT (SGPT) | 18 | <=60 U/L | + + + + | ANION GAP | 8 | 4 - 11 mmol/L | + + + + | [...] | + + + | Blood | [facility], [facility] [address] [place] [address] | | | [facility] [address] | + + + + + | [...] changing kidney function | + + CULTURE, FUNGAL EXCEPT BLOOD, SKIN, HAIR, NAIL (07/31/2017 12:13 AM) + + + | Specimen | Performing Laboratory | + + + | Sputum - Lung | [facility] [address] [place], [place] | | | [address] | + + + + + | Narrative | + + | Culture Report: No mould isolated at 3 weeks | + + CULTURE, SPUTUM CYSTIC FIBROSIS (07/31/2017 12:13 AM) + + + | Specimen | Performing Laboratory | + + + | Sputum - Lung | [facility] [place] [address] [place], [place] | | | [address] | + + + + + | Narrative | + + | Culture Report: 2+ Oral Lilia | + + ANESTHESIA/SEDATION (07/31/2017)CULTURE, BLOOD BACTI & YEAST OHARMANDO (07/30/2017 12:13 PM) + + + + | Component | Value | Ref Range | + + + + | CULTURE RESULT | Final Report:No Bacteria or Yeast isolated | | | | at 5 days. | | + + + + + + + | Specimen | Performing Laboratory | + + + | Blood - PICC red | [facility], [facility] [address] | | port | [place] [address] | + + + ASPERGILLUS GALACTOMANNAN ANTIGEN, SERUM (07/30/2017 12:13 PM) + + + + | Component | Value | Ref Range | + + + + | ASPERGILLUS | Negative | Negative | | GALACTOMANNAN AG | | | + + + + | ASP GAL INDEX, SER | 0.24 | <=0.49 Index | + + + + + + + | Specimen | Performing Laboratory | + + + | Blood | [facility] [address] [facility] | | | [place] [address] | + + + + + | Narrative | + + | INTERPRETATION: Aspergillus galactomannan Antigen by | | EIA | | | | This test has not been | | evaluated in neonates and reference ranges have not been established for this age | | group. | | Negative results do not exclude the diagnosis of invasive Aspergillosis. False | | negative results may be seen in patients receiving concomitant anti-fungals, | | and patients with chronic granulomatous disease and Job's | | syndrome. | | | | | | A single positive test result | | (index equal to or greater than 0.5) should be clinically correlated by testing a | | separate serum because many agents (e.g. food, antibiotics) may cross-react with the | | assay. False positive results may also be seen in very young children, patients | | with altered intestinal barrier, and patients infected with other genre of fungi | | such as Penicillium, Alternaria, Histoplasma, and | | Geotrichum. If invasive Aspergillosis is suspected in | | high-risk patients,serial sampling is | | recommended. | | | + + CULTURE, BLOOD BACTI & YEAST (07/30/2017 12:13 PM) + + + | Specimen | Performing Laboratory | + + + | Blood | | + + + + + | Narrative | + + | The following orders were created for panel order CULTURE, BLOOD BACTI & YEAST. | | Procedure | | Abnormality Status | | --------- | | ------ CULTURE, BLOOD | | BACTI & Y...[[id number]] Final | | result Please view results for these tests on the | | individual orders. | + + RESPIRATORY PATHOGEN PANEL PCR (07/30/2017 9:44 AM) + + + + | Component | Value | Ref Range | + + + + | ADENOVIRUS PCR | Not Detected | Not Detected | + + + + | CORONAVIRUS 229E PCR | Not Detected | Not Detected | + + + + | CORONAVIRUS HKU1 PCR | Not Detected | Not Detected | + + + + | CORONAVIRUS NL63 PCR | Not Detected | Not Detected | + + + + | CORONAVIRUS OC43 PCR | Not Detected | Not Detected | + + + + | METAPNEUMOVIRUS PCR | Not Detected | Not Detected | + + + + | RHINOVIRUS/ENTEROVIR | Not Detected | Not Detected | | US PCR | | | + + + + | INFLUENZA A PCR | Not Detected | Not Detected | + + + + | INFLUENZA A SUBTYPE | Not Detected | Not Detected | | H1 PCR | | | + + + + | INFLUENZA A H1-2009 | Not Detected | Not Detected | | PCR | | | + + + + | INFLUENZA A H3 PCR | Not Detected | Not Detected | + + + + | INFLUENZA B PCR | Not Detected | Not Detected | + + + + | PARAINFLUENZA 1 PCR | Not Detected | Not Detected | + + + + | PARAINFLUENZA 2 PCR | Not Detected | Not Detected | + + + + | PARAINFLUENZA 3 PCR | Not Detected | Not Detected | + + + + | PARAINFLUENZA 4 PCR | Not Detected | Not Detected | + + + + | RSV PCR | Not Detected | Not Detected | + + + + | BORDETELLA PERTUSSIS | Not Detected | Not Detected | | PCR | | | + + + + | CHLAMYDOPHILA | Not Detected | Not Detected | | PNEUMONIAE PCR | | | + + + + | MYCOPLASMA | Not Detected | Not Detected | | PNEUMONIAE PCR | | | + + + + + + + | Specimen | Performing Laboratory | + + + | Swab - Nasal | [facility], [place] [address] [place] [address] | | | [place] [address] | + + + POSACONAZOLE, QUANT (07/30/2017 9:15 AM) + + + + | Component | Value | Ref Range | + + + + | POSACONAZOLE, | 2.6Comment: INTERPRETIVE INFORMATION: | >=0.8 ug/mL | | [...] | | | | characteristics determined by [employer] | | | | [employer]. See Compliance Statement B: | | | | [employer] | | | | [employer],[address] [place] [address] | | | | [phone].[employer], Kelton Banks | | | | MD Lab. Director | | | |www.[employer], Kelton Banks MD, Lab. Director | | + + + + + + + | Specimen | Performing Laboratory | + + + | Blood | [facility] - [facility] [address] [facility] | | | [place] [address] | + + + CBC AND AUTO DIFF (07/30/2017 12:26 AM) + + + + | Component | Value | Ref Range | + + + + | WHITE CELL COUNT | <0.10 (L) | 3.50 - 10.80 K/cu mm | + + + + | RED CELL COUNT | 2.75 (L) | 4.00 - 5.20 M/cu mm | + + + + | HEMOGLOBIN | 7.9 (L) | 12.0 - 16.0 g/dL | + + + + | HEMATOCRIT | 22.3 (L) | 36.0 - 46.0 % | + + + + | MCV | 81.1 | 80.0 - 96.0 fL | + + + + | MCHC | 35.4 | 33.0 - 35.5 g/dL | + + + + | RDW SD | 36.1 | 35.1 - 46.3 fL | + [...] | | + + + + | IG% | Comment: WBC <300; differential not | 0.0 - 1.0 % | | | performed. | | [...] | | + + + + | IG# | Comment: WBC <300; differential not | 0.00 - 0.10 K/cu mm | | | performed. | | + + + + + + + | Specimen | Performing Laboratory | + + + | Blood | [facility], [facility] [address] | | | [place] [address] | + + + CBC, WITH DIFFERENTIAL (07/30/2017 12:26 AM) + + + | Specimen | Performing Laboratory | + + + | Blood | | + + + + + | Narrative | + + | The following orders were created for panel order CBC, WITH DIFFERENTIAL. | | Procedure | | Abnormality Status | | --------- | | ------ CBC AND AUTO | | DIFF[[id number]] Abnormal Final | | result Please view results for these tests on the | | individual orders. | + + PHOSPHORUS, PLASMA (07/30/2017 12:25 AM) + +-------+ + | Component | Value | Ref Range | + +-------+ + | PHOSPHORUS, PLASMA | 3.1 | 2.4 - 4.7 mg/dL | | (LAB) | | | + +-------+ + + + + | Specimen | Performing Laboratory | + + + | Blood | [facility], [facility] [address] | | | [place] [address] | + + + MAGNESIUM, PLASMA (07/30/2017 12:25 AM) + +-------+ + | Component | Value | Ref Range | + +-------+ + | MAGNESIUM,PLASMA | 1.8 | 1.6 - 2.6 mg/dL | + +-------+ + + + + | Specimen | Performing Laboratory | + + + | Blood | [facility], [facility] [address] | | | [place] [address] | + + + + + | Narrative | + + | Reference range change effective 12/11/16. | + + COMPLETE METABOLIC SET (NA,K,CL,CO2,BUN,CREAT,GLUC,CA,AST,ALT,BILI TOTAL,ALK PHOS,ALB,PROT TOTAL) (07/30/2017 12:25 AM) + + + + | Component | Value | Ref Range | + + + + | GLUCOSE, PLASMA | 105 (H) | 70 - 99 mg/dL | | (LAB) | | | + + + + | BUN, PLASMA (LAB) | 5 (L) | 6 - 20 mg/dL | + + + + | CREATININE PLASMA | 0.49 (L) | 0.60 - 1.10 mg/dL | | (LAB) | | | + + + + | EGFR - | >60 | >60 mL/min | | JORDANIAN | | | + + + + | EGFR NON | >60 | >60 mL/min | | -JORDANIAN | | | + + + + | SODIUM, PLASMA (LAB) | 136 | 136 - 145 mmol/L | + + + + | POTASSIUM, PLASMA | 3.4 | 3.4 - 5.0 mmol/L | | (LAB) | | | + + + + | CHLORIDE, PLASMA | 99 | [...] + + + + | CALCIUM(ALB | 9.7 | 8.6 [...] + + + | ALK PHOS | 157 (H) | 42 - 98 U/L | + + + + | AST(SGOT) | 15 | <=41 U/L | + + + + | ALT (SGPT) | 19 | <=60 U/L | + + + + | ANION GAP | 7 | 4 - 11 mmol/L | + + + + | [...] | + + + | Blood | [facility], [address] [address] | | | [place] [address] | + + + + + | [...] Rapidly changing kidney function | + + CT CHEST WO CONTRAST (07/29/2017 6:52 PM) + + + | Specimen | Performing Laboratory | + + + | | [facility] | + + + + + | Narrative | + + | ADDENDUM: Given history of positive blood culture for pseudomonas last week, | | multifocal pseudomonas pneumonia is a consideration. EXAM: CT CHEST WO CONTRAST | | HISTORY: Admitted for relapse AML. Neutropenia, evaluate for pneumonia noted on chest | | radiograph. COMPARISON:Chest radiograph earlier today, 07/25/17, 07/20/17. CT | | 06/29/17. TECHNIQUE: Helical scanning was obtained of the chest without intravenous | | contrast and reviewed in soft tissue and lung algorithm. Coronal and sagittal images | | were also generated. FINDINGS: There are well-defined subpleural consolidations | | anteriorly within the right lower lobe and laterally within the left upper lobe with air | | bronchograms. There is minimal groundglass opacity adjacent to the well-defined | | consolidations. These foci of consolidation have rapidly progressed since | | 07/25/17. Compared with CT 06/29/17, new scattered sub 4 mm pulmonary nodules are seen | | throughout all of the lobes. The central airways are patent. There is no pleural | | effusion or pneumothorax. Left upper extremity PICC tip terminates at the cavoatrial | | junction. Heart and vessels are normal in size and contour. Trace pericardial fluid is | | noted. Mild calcified atherosclerotic disease is present within the aortic arch. Mildly | | prominent mediastinal lymph nodes are present, the largest in the right paratracheal | | node measuring 11 mm. Left thyroid 2.9 cm hypodense nodule is unchanged. | | Partially visualized upper abdominal structures are unremarkable. No acute osseous | | lesion. IMPRESSION: Well-defined subpleural left upper lobe and right lower lobe | | consolidations, rapidly progressive over the last 4 days with scattered bilateral sub-4 | | mm pulmonary nodules, consistent with rapidly progressive multifocal | | pneumonia. Bacterial etiology should be considered, however given imaging appearance, | | aspergillosis and Mucor should be considered. The results were discussed with | | Shayna Gardiner at the time of dictation. I have personally reviewed the images | | and, if necessary, edited the report. I agree with the report as now presented. | + + + + | Procedure Note | + + | Service Account, Radiant Res In Interface - 07/30/2017 4:53 PM PDT ADDENDUM:Given | | history of positive blood culture for pseudomonas last week, multifocal pseudomonas | | pneumonia is a consideration.EXAM: CT CHEST WO CONTRAST HISTORY: Admitted for relapse | | AML. Neutropenia, evaluate for pneumonia noted on chest radiograph.COMPARISON:Chest | | radiograph earlier today, 07/25/17, 07/20/17. CT 06/29/17.TECHNIQUE: Helical scanning was | | obtained of the chest without intravenous contrast and reviewed in soft tissue and lung | | algorithm. Coronal and sagittal images were also generated.FINDINGS:There are | | well-defined subpleural consolidations anteriorly within the right lower lobe and | | laterally within the left upper lobe with air bronchograms. There is minimal | | groundglass opacity adjacent to the well-defined consolidations. These foci of | | consolidation have rapidly progressed since 07/25/17. Compared with CT 06/29/17, new | | scattered sub 4 mm pulmonary nodules are seen throughout all of the lobes.The central | | airways are patent. There is no pleural effusion or pneumothorax.Left upper extremity | | PICC tip terminates at the cavoatrial junction. Heart and vessels are normal in size and | | contour. Trace pericardial fluid is noted. Mild calcified atherosclerotic disease is | | present within the aortic arch. Mildly prominent mediastinal lymph nodes are present, | | the largest in the right paratracheal node measuring 11 mm.Left thyroid 2.9 cm hypodense | | nodule is unchanged.Partially visualized upper abdominal structures are unremarkable. | | No acute osseous lesion.IMPRESSION:Well-defined subpleural left upper lobe and right | | lower lobe consolidations, rapidly progressive over the last 4 days with scattered | | bilateral sub-4 mm pulmonary nodules, consistent with rapidly progressive multifocal | | pneumonia. Bacterial etiology should be considered, however given imaging appearance, | | aspergillosis and Mucor should be considered. The results were discussed with Shayna | | Abdifatah at the time of dictation.I have personally reviewed the images and, if | | necessary, edited the report. I agree with the report as now presented. | | | |No acute osseous lesion. | | | |IMPRESSION: | | | |Well-defined subpleural left upper lobe and right lower lobe consolidations, rapidly progre ssive over the last 4 days with scattered bilateral sub-4 mm pulmonary nodules, consistent w ith rapidly progressive | |multifocal pneumonia. Bacterial etiology should be considered, however given imaging appea edy, aspergillosis and Mucor should be considered. | | | |The results were discussed with Shayna Gardiner at the time of dictation. | | | | | |I have personally reviewed the images and, if necessary, edited the report. I agree with t he report as now presented. | + + X-RAY CHEST 2 VIEW (07/29/2017 3:34 PM) + + + | Specimen | Performing Laboratory | + + + | | [facility] | + + + + + | Narrative | + + | STUDY: CHEST 2 VIEWS HISTORY: Hypoxia COMPARISON: 07/25/2017 FINDINGS: | | Unchanged appearance of the left upper extremity PICC. The cardiomediastinal | | silhouette is unchanged. There is no pneumothorax or pleural effusion. Interval | | increase in bilateral mid to lower lung zone consolidative airspace opacities. No acute | | osseous abnormalities. IMPRESSION: Interval increase in bilateral mid to lower | | lung zone consolidative airspace opacities which is suspicious for a multifocal | | infectious process. I have personally reviewed the images and, if necessary, | | edited the report. I agree with the report as now presented. | + + + + | Procedure Note | + + | Service Account, Radiant Res In Interface - 07/29/2017 4:22 PM PDT STUDY: CHEST 2 | | VIEWSHISTORY: HypoxiaCOMPARISON: 07/25/2017FINDINGS: Unchanged appearance of the left | | upper extremity PICC.The cardiomediastinal silhouette is unchanged. There is no | | pneumothorax or pleural effusion.Interval increase in bilateral mid to lower lung zone | | consolidative airspace opacities. No acute osseous abnormalities.IMPRESSION: Interval | | increase in bilateral mid to lower lung zone consolidative airspace opacities which is | | suspicious for a multifocal infectious process.I have personally reviewed the images | | and, if necessary, edited the report. I agree with the report as now presented. | |Unchanged appearance of the left upper extremity PICC. | | | |The cardiomediastinal silhouette is unchanged. There is no pneumothorax or pleural effusion . | | | |Interval increase in bilateral mid to lower lung zone consolidative airspace opacities. No acute osseous abnormalities. | | | |IMPRESSION: | | | |Interval increase in bilateral mid to lower lung zone consolidative airspace opacities whic h is suspicious for a multifocal infectious process. | | | | | |I have personally reviewed the images and, if necessary, edited the report. I agree with t he report as now presented. | + + VRE (FRANCISCO) BY PCR (07/29/2017 5:34 AM) + + + + | Component | Value | Ref Range | + + + + | VRE BY PCR | Negative for van A gene | Negative for van A | | | | gene | + + + + + + + | Specimen | Performing Laboratory | + + + | Swab - Rectum | [facility], CORE [address] [facility] | | | [place] [address] | + + + PRODUCT - PLATELET PHERESIS LEUKOREDUCED (07/29/2017 1:58 AM) + + + + | Component | Value | Ref Range | + + + + | PRODUCT DESCRIPTION | PLATELETS PHERESIS, LEUKOCYTE REDUCED, | | | | IRRADIATED | | + + + + | PRODUCT UNIT # | [id number] | | + + + + | UNIT ABO | O | | + + + + | UNIT RH | POS | | + + + + | STATUS OF UNIT | Presumed Transfused | | + + + + | EXPIRATION DATE | [id number] | | + + + + | BLOOD TYPE BARCODE | 5100 | | + + + + | BLOOD PRODUCT CODE | [id number] | | + + + + + + + | Specimen | Performing Laboratory | + + + | | [facility]SF[facility]ION MEDICINE [address] [facility] | | | [place] [address] | + + + PRODUCT - RED CELLS LEUKOREDUCED (07/29/2017 1:58 AM) + + + + | Component | Value | Ref Range | + + + + | PRODUCT DESCRIPTION | -1 RED BLOOD CELLS ADENINE-SALINE ADDED | | | | LEUKOCYT | | + + + + | PRODUCT UNIT # | [id number] | | + + + + | UNIT ABO | O | | + + + + | UNIT RH | POS | | + + + + | STATUS OF UNIT | Presumed Transfused | | + + + + | EXPIRATION DATE | [id number] | | + + + + | BLOOD TYPE BARCODE | 5100 | | + + + + | BLOOD PRODUCT CODE | [id number] | | + + + + + + + | Specimen | Performing Laboratory | + + + | | [facility]ICINE [address] | | | [place] [facility] [place] [address] | + + + ANTIBODY SCREEN (07/29/2017 1:58 AM) + + + + | Component | Value | Ref Range | + + + + | Antibody Screen | Negative | | + + + + + + + | Specimen | Performing Laboratory | + + + | Blood | [facility]IC[facility] [address] [facility] | | | [place] [address] | + + + ABO & RH TYPE (07/29/2017 1:58 AM) + + + + | Component | Value | Ref Range | + + + + | ABO Group | O | | + + + + | Rh Type | Positive | | + + + + + + + | Specimen | Performing Laboratory | + + + | Blood | [facility]IC[facility] [address] [facility] | | | [place] [address] | + + + TYPE AND SCREEN (07/29/2017 1:58 AM) + + + | Specimen | Performing Laboratory | + + + | Blood | | + + + + + | Narrative | + + | The following orders were created for panel order TYPE AND SCREEN. | | Procedure | | Abnormality Status | | --------- | | ------ ABO & RH | | TYPE[[id number]] F | | inal result ANTIBODY | | SCREEN[[id number]] Fin | | al result Please view results for these tests on the | | individual orders. | + + CBC AND AUTO DIFF (07/29/2017 1:10 AM) + + + + | Component | Value | Ref Range | + + + + | WHITE CELL COUNT | <0.10 (L) | 3.50 - 10.80 K/cu mm | + + + + | RED CELL COUNT | 2.43 (L) | 4.00 - 5.20 M/cu mm | + + + + | HEMOGLOBIN | 7.1 (L) | 12.0 - 16.0 g/dL | + + + + | HEMATOCRIT | 19.5 (L) | 36.0 - 46.0 % | + + + + | MCV | 80.2 | 80.0 - 96.0 fL | + + + + | MCHC | 36.4 | 33.0 - 35.5 g/dL | + + + + | RDW SD | 35.8 | 35.1 - 46.3 fL | + [...] | | + + + + | IG% | Comment: WBC <300; differential not | 0.0 - 1.0 % | | | performed. | | [...] | | + + + + | IG# | Comment: WBC <300; differential not | 0.00 - 0.10 K/cu mm | | | performed. | | + + + + + + + | Specimen | Performing Laboratory | + + + | Blood | [facility], CORE [address] [place] [address] | | | [place] [address] | + + + COAGULOPATHY PANEL (INR,APTT,FIBRINOGEN) (07/29/2017 1:10 AM) + + + + | Component | Value | Ref Range | + + + + | INR | 1.23 (H) | 0.90 - 1.20 INR | + + + + | APTT | 41.9 (H) | 26.0 - 36.0 seconds | + + + + | FIBRINOGEN LEVEL | 631 (H) | 200 - 450 mg/dL | + + + + + + + | Specimen | Performing Laboratory | + + + | Blood | [facility], CORE [address] [facility] | | | [place] [address] | + + + + + | Narrative | + + | INR Therapeutic ranges for full anticoagulation: INR for Venous | | Thromboembolism (2.0 - 3.0) INR INR for most patients with | | mech. valves (2.5 - 3.5) INR APTT Therapeutic | | Range: (75 - 120) sec Heparin levels | | of 0.35 - 0.7 U/mL | + + LDH TOTAL, PLASMA (07/29/2017 1:10 AM) + +---------+ + | Component | Value | Ref Range | + +---------+ + | LD TOTAL, PLASMA | 120 | <=250 U/L | + +---------+ + | LD CMNT | No Hemo | | + +---------+ + + + + | Specimen | Performing Laboratory | + + + | Blood | [facility], [facility]ORE [address] [place] [address] | | | [place] [address] | + + + URIC ACID, PLASMA (07/29/2017 1:10 AM) + +---------+ + | Component | Value | Ref Range | + +---------+ + | URIC ACID, PLASMA | 1.0 (L) | 2.5 - 6.2 mg/dL | | (LAB) | | | + +---------+ + + + + | Specimen | Performing Laboratory | + + + | Blood | [facility], CORE [address] [place] [address] | | | [place] [address] | + + + PHOSPHORUS, PLASMA (07/29/2017 1:10 AM) + +-------+ + | Component | Value | Ref Range | + +-------+ + | PHOSPHORUS, PLASMA | 3.3 | 2.4 - 4.7 mg/dL | | (LAB) | | | + +-------+ + + + + | Specimen | Performing Laboratory | + + + | Blood | [facility], CORE [address] | | | [place] [address] | + + + MAGNESIUM, PLASMA (07/29/2017 1:10 AM) + +-------+ + | Component | Value | Ref Range | + +-------+ + | MAGNESIUM,PLASMA | 1.8 | 1.6 - 2.6 mg/dL | + +-------+ + + + + | Specimen | Performing Laboratory | + + + | Blood | [facility], [facility]ORE [address] [facility] [address] | | | [place] [address] | + + + + + | Narrative | + + | Reference range change effective 12/11/16. | + + CBC, WITH DIFFERENTIAL (07/29/2017 1:10 AM) + + + | Specimen | Performing Laboratory | + + + | Blood | | + + + + + | Narrative | + + | The following orders were created for panel order CBC, WITH DIFFERENTIAL. | | Procedure | | Abnormality Status | | --------- | | ------ CBC AND AUTO | | DIFF[[id number]] Abnormal Final | | result Please view results for these tests on the | | individual orders. | + + COMPLETE METABOLIC SET (NA,K,CL,CO2,BUN,CREAT,GLUC,CA,AST,ALT,BILI TOTAL,ALK PHOS,ALB,PROT TOTAL) (07/29/2017 1:10 AM) + + + + | Component | Value | Ref Range | + + + + | GLUCOSE, PLASMA | 107 (H) | 70 - 99 mg/dL | | (LAB) | | | + + + + | BUN, PLASMA (LAB) | 5 (L) | 6 - 20 mg/dL | + + + + | CREATININE PLASMA | 0.43 (L) | 0.60 - 1.10 mg/dL | | (LAB) | | | + + + + | EGFR - | >60 | >60 mL/min | | JORDANIAN | | | + + + + | EGFR NON | >60 | >60 mL/min | | -JORDANIAN | | | + + + + | SODIUM, PLASMA (LAB) | 136 | 136 - 145 mmol/L | + + + + | POTASSIUM, PLASMA | 3.2 (L) | 3.4 - 5.0 mmol/L | | (LAB) | | | + + + + | CHLORIDE, PLASMA | 99 | [...] + + + + | CALCIUM(ALB | 9.8 | 8.6 - 10.2 mg/dL | | [...] + + + | ALT (SGPT) | 20 | <=60 U/L | + + + + | ANION GAP | 7 | 4 - 11 mmol/L | + + + + | [...] | + + + | Blood | [facility], CORE [address] [facility] [address] | | | [place] [address] | + + + + + | [...] changing kidney function | + + CBC AND AUTO DIFF (07/28/2017 12:14 AM) + + + + | Component | Value | Ref Range | + + + + | WHITE CELL COUNT | <0.10 (L) | 3.50 - 10.80 K/cu mm | + + + + | RED CELL COUNT | 2.69 (L) | 4.00 - 5.20 M/cu mm | + + + + | HEMOGLOBIN | 7.7 (L) | 12.0 - 16.0 g/dL | + + + + | HEMATOCRIT | 21.5 (L) | 36.0 - 46.0 % | + + + + | MCV | 79.9 (L) | 80.0 - 96.0 fL | + + + + | MCHC | 35.8 | 33.0 - 35.5 g/dL | + + + + | RDW SD | 35.5 | 35.1 - 46.3 fL | + + + + | PLATELET COUNT | 15 (L) | 150 - 400 K/cu mm | + + + + | MPV | 11.0 | 9.7 - 12.3 fL | + [...] | | + + + + | IG% | Comment: WBC <300; differential not | 0.0 - 1.0 % | | | performed. | | [...] | | + + + + | IG# | Comment: WBC <300; differential not | 0.00 - 0.10 K/cu mm | | | performed. | | + + + + + + + | Specimen | Performing Laboratory | + + + | Blood | [facility], CORE [address] [facility] | | | [place] [address] | + + + PHOSPHORUS, PLASMA (07/28/2017 12:14 AM) + +-------+ + | Component | Value | Ref Range | + +-------+ + | PHOSPHORUS, PLASMA | 3.4 | 2.4 - 4.7 mg/dL | | (LAB) | | | + +-------+ + + + + | Specimen | Performing Laboratory | + + + | Blood | [facility], CORE [address] | | | [place] [address] | + + + MAGNESIUM, PLASMA (07/28/2017 12:14 AM) + +-------+ + | Component | Value | Ref Range | + +-------+ + | MAGNESIUM,PLASMA | 1.8 | 1.6 - 2.6 mg/dL | + +-------+ + + + + | Specimen | Performing Laboratory | + + + | Blood | [facility], CORE [address] | | | [place] [address] | + + + + + | Narrative | + + | Reference range change effective 12/11/16. | + + CBC, WITH DIFFERENTIAL (07/28/2017 12:14 AM) + + + | Specimen | Performing Laboratory | + + + | Blood | | + + + + + | Narrative | + + | The following orders were created for panel order CBC, WITH DIFFERENTIAL. | | Procedure | | Abnormality Status | | --------- | | ------ CBC AND AUTO | | DIFF[[id number]] Abnormal Final | | result Please view results for these tests on the | | individual orders. | + + COMPLETE METABOLIC SET (NA,K,CL,CO2,BUN,CREAT,GLUC,CA,AST,ALT,BILI TOTAL,ALK PHOS,ALB,PROT TOTAL) (07/28/2017 12:14 AM) + + + + | Component | Value | Ref Range | + + + + | GLUCOSE, PLASMA | 103 (H) | 70 - 99 mg/dL | | (LAB) | | | + + + + | BUN, PLASMA (LAB) | 5 (L) | 6 - 20 mg/dL | + + + + | CREATININE PLASMA | 0.46 (L) | 0.60 - 1.10 mg/dL | | (LAB) | | | + + + + | EGFR - | >60 | >60 mL/min | | JORDANIAN | | | + + + + | EGFR NON | >60 | >60 mL/min | | -JORDANIAN | | | + + + + | SODIUM, PLASMA (LAB) | 138 | 136 - 145 mmol/L | + + + + | POTASSIUM, PLASMA | 2.9 (L) | 3.4 - 5.0 mmol/L | [...] + + + + | CALCIUM(ALB | 9.9 | 8.6 - 10.2 mg/dL | | [...] + + + + | AST(SGOT) | 15 | <=41 U/L | + + + + | ALT (SGPT) | 21 | <=60 U/L | + + + + | ANION GAP | 10 | 4 - 11 mmol/L | + + + + | [...] | + + + | Blood | [facility] [address] [facility] [address] | | | [place] [address] | + + + + + | [...] changing kidney function | + + CBC AND AUTO DIFF (07/27/2017 12:19 AM) + + + + | Component | Value | Ref Range | + + + + | WHITE CELL COUNT | <0.10 (L) | 3.50 - 10.80 K/cu mm | + + + + | RED CELL COUNT | 2.75 (L) | 4.00 - 5.20 M/cu mm | + + + + | HEMOGLOBIN | 8.1 (L) | 12.0 - 16.0 g/dL | + + + + | HEMATOCRIT | 22.2 (L) | 36.0 - 46.0 % | + + + + | MCV | 80.7 | 80.0 - 96.0 fL | + + + + | MCHC | 36.5 | 33.0 - 35.5 g/dL | + + + + | RDW SD | 36.1 | 35.1 - 46.3 fL | + + + + | PLATELET COUNT | 26 (L) | 150 - 400 K/cu mm | + + + + | MPV | 11.4 | 9.7 - 12.3 fL | + [...] | | + + + + | IG% | Comment: WBC <300; differential not | 0.0 - 1.0 % | | | performed. | | [...] | | + + + + | IG# | Comment: WBC <300; differential not | 0.00 - 0.10 K/cu mm | | | performed. | | + + + + + + + | Specimen | Performing Laboratory | + + + | Blood | [facility], CORE [address] [address] [facility] | | | [place] [address] | + + + PHOSPHORUS, PLASMA (07/27/2017 12:19 AM) + +-------+ + | Component | Value | Ref Range | + +-------+ + | PHOSPHORUS, PLASMA | 3.1 | 2.4 - 4.7 mg/dL | | (LAB) | | | + +-------+ + + + + | Specimen | Performing Laboratory | + + + | Blood | [facility], CORE [address] | | | [place] [address] | + + + MAGNESIUM, PLASMA (07/27/2017 12:19 AM) + +-------+ + | Component | Value | Ref Range | + +-------+ + | MAGNESIUM,PLASMA | 1.8 | 1.6 - 2.6 mg/dL | + +-------+ + + + + | Specimen | Performing Laboratory | + + + | Blood | [facility], CORE [address] | | | [place] [address] | + + + + + | Narrative | + + | Reference range change effective 12/11/16. | + + CBC, WITH DIFFERENTIAL (07/27/2017 12:19 AM) + + + | Specimen | Performing Laboratory | + + + | Blood | | + + + + + | Narrative | + + | The following orders were created for panel order CBC, WITH DIFFERENTIAL. | | Procedure | | Abnormality Status | | --------- | | ------ CBC AND AUTO | | DIFF[[id number]] Abnormal Final | | result Please view results for these tests on the | | individual orders. | + + COMPLETE METABOLIC SET (NA,K,CL,CO2,BUN,CREAT,GLUC,CA,AST,ALT,BILI TOTAL,ALK PHOS,ALB,PROT TOTAL) (07/27/2017 12:19 AM) + + + + | Component | Value | Ref Range | + + + + | GLUCOSE, PLASMA | 110 (H) | 70 - 99 mg/dL | | (LAB) | | | + + + + | BUN, PLASMA (LAB) | 6 | 6 - 20 mg/dL | + + + + | CREATININE PLASMA | 0.46 (L) | 0.60 - 1.10 mg/dL | | (LAB) | | | + + + + | EGFR - | >60 | >60 mL/min | | JORDANIAN | | | + + + + | EGFR NON | >60 | >60 mL/min | | -JORDANIAN | | | + + + + | SODIUM, PLASMA (LAB) | 141 | 136 - 145 mmol/L | + + + + | POTASSIUM, PLASMA | 3.2 (L) | 3.4 - 5.0 mmol/L | [...] + + + + | CALCIUM(ALB | 9.8 | 8.6 - 10.2 mg/dL | | [...] + + + | ALK PHOS | 148 (H) | 42 - 98 U/L | + + + + | AST(SGOT) | 16 | <=41 U/L | + + + + | ALT (SGPT) | 20 | <=60 U/L | + + + + | ANION GAP | 8 | 4 - 11 mmol/L | + + + + | [...] | + + + | Blood | [facility], CORE [address] | | | [place] [address] | + + + + + | [...] + + PRODUCT - PLATELET PHERESIS LEUKOREDUCED (07/26/2017 1:39 AM) + + + + | Component | Value | Ref Range | + + + + | PRODUCT DESCRIPTION | APHERESIS | | | | PLATELETS,PAS,LEUKOREDUCED,IRRADIATED | | + + + + | PRODUCT UNIT # | [id number] | | + + + + | UNIT ABO | O | | + + + + | UNIT RH | POS | | + + + + | STATUS OF UNIT | Presumed Transfused | | + + + + | EXPIRATION DATE | [id number] | | + + + + | BLOOD TYPE BARCODE | 5100 | | + + + + | BLOOD PRODUCT CODE | [id number] | | + + + + + + + | Specimen | Performing Laboratory | + + + | | [facility], TRANSFUSION MEDICINE [address] | | | [place] [facility] [place] [address] | + + + PRODUCT - RED CELLS LEUKOREDUCED (07/26/2017 1:39 AM) + + + + | Component | Value | Ref Range | + + + + | PRODUCT DESCRIPTION | -1 RED BLOOD CELLS ADENINE-SALINE ADDED | | | | LEUKOCYT | | + + + + | PRODUCT UNIT # | [id number] | | + + + + | UNIT ABO | O | | + + + + | UNIT RH | POS | | + + + + | STATUS OF UNIT | Presumed Transfused | | + + + + | EXPIRATION DATE | [id number] | | + + + + | BLOOD TYPE BARCODE | 5100 | | + + + + | BLOOD PRODUCT CODE | [id number] | | + + + + + + + | Specimen | Performing Laboratory | + + + | | [facility], TRANSFUSION MEDICINE [address] | | | [place] [address] | + + + ANTIBODY SCREEN (07/26/2017 1:36 AM) + + + + | Component | Value | Ref Range | + + + + | Antibody Screen | Negative | | + + + + + + + | Specimen | Performing Laboratory | + + + | Blood | [facility], TRANSFUSION MEDICINE [address] [place] [address] | | | [place] [address] | + + + ABO & RH TYPE (07/26/2017 1:36 AM) + + + + | Component | Value | Ref Range | + + + + | ABO Group | O | | + + + + | Rh Type | Positive | | + + + + + + + | Specimen | Performing Laboratory | + + + | Blood | [facility], TRANSFUSION MEDICINE [address] [facility] | | | [place] [address] | + + + TYPE AND SCREEN (07/26/2017 1:36 AM) + + + | Specimen | Performing Laboratory | + + + | Blood | | + + + + + | Narrative | + + | The following orders were created for panel order TYPE AND SCREEN. | | Procedure | | Abnormality Status | | --------- | | ------ ABO & RH | | TYPE[[id number]] F | | inal result ANTIBODY | | SCREEN[[id number]] Fin | | al result Please view results for these tests on the | | individual orders. | + + CBC AND AUTO DIFF (07/26/2017 12:40 AM) + + + + | Component [...] + + + + | HEMATOCRIT | 20.2 (L) | 36.0 - 46.0 % | + + + + | MCV | 79.8 (L) | 80.0 - 96.0 fL | + + + + | MCHC | 36.1 | 33.0 - 35.5 g/dL | + + + + | RDW SD | 35.6 | 35.1 - 46.3 fL | + + + + | PLATELET COUNT | 3 (LL) | 150 - 400 K/cu mm [...] | | + + + + | IG% | Comment: WBC <300; differential not | 0.0 - 1.0 % | | | performed. | | [...] | | + + + + | IG# | Comment: WBC <300; differential not | 0.00 - 0.10 K/cu mm | | | performed. | | + + + + + + + | Specimen | Performing Laboratory | + + + | Blood | [facility], CORE [address] [place] [address] | | | [place], [place] [address] | + + + PHOSPHORUS, PLASMA (07/26/2017 12:40 AM) + +-------+ + | Component | Value | Ref Range | + +-------+ + | PHOSPHORUS, PLASMA | 4.1 | 2.4 - 4.7 mg/dL | | (LAB) | | | + +-------+ + + + + | Specimen | Performing Laboratory | + + + | Blood | [facility], [address] [address] | | | [place] [address] | + + + MAGNESIUM, PLASMA (07/26/2017 12:40 AM) + +-------+ + | Component | Value | Ref Range | + +-------+ + | MAGNESIUM,PLASMA | 1.9 | 1.6 - 2.6 mg/dL | + +-------+ + + + + | Specimen | Performing Laboratory | + + + | Blood | [facility], CORE [address] | | | [place] [address] | + + + + + | Narrative | + + | Reference range change effective 12/11/16. | + + CBC, WITH DIFFERENTIAL (07/26/2017 12:40 AM) + + + | Specimen | Performing Laboratory | + + + | Blood | | + + + + + | Narrative | + + | The following orders were created for panel order CBC, WITH DIFFERENTIAL. | | Procedure | | Abnormality Status | | --------- | | ------ CBC AND AUTO | | DIFF[[id number]] Abnormal Final | | result Please view results for these tests on the | | individual orders. | + + COMPLETE METABOLIC SET (NA,K,CL,CO2,BUN,CREAT,GLUC,CA,AST,ALT,BILI TOTAL,ALK PHOS,ALB,PROT TOTAL) (07/26/2017 12:40 AM) + + + + | Component | Value | Ref Range | + + + + | GLUCOSE, PLASMA | 119 (H) | 70 - 99 mg/dL | | (LAB) | | | + + + + | BUN, PLASMA (LAB) | 8 | 6 - 20 mg/dL | + + + + | CREATININE PLASMA | 0.49 (L) | 0.60 - 1.10 mg/dL | | (LAB) | | | + + + + | EGFR - | >60 | >60 mL/min | | JORDANIAN | | | + + + + | EGFR NON | >60 | >60 mL/min | | -JORDANIAN | | | + + + + [...] + + + + | CALCIUM(ALB | 9.7 | 8.6 [...] + + + | ALK PHOS | 148 (H) | 42 - 98 U/L | + + + + | AST(SGOT) | 13 | <=41 U/L | + + + + | ALT (SGPT) | 18 | <=60 U/L | + + + + | ANION GAP | 9 | 4 - 11 mmol/L | + + + + | [...] | + + + | Blood | [facility], [facility] [address] | | | [place] [address] | + + + + + | [...] Rapidly changing kidney function | + + TROY LINE (07/25/2017 10:59 AM) + + | Narrative | + + | Laine Patel RN 07/25/2017 11:02 AM PICC LINE Performed by: ANALI, | | LAINE Authorized by: ANGELIA THOMPSON PICC/Midline Insertion Procedure Note | | Indications:Chemo Procedure location: Unit:[facility] Room: 20 Providers: Attending name: | | Attending physically present: No PICC Nurse name: Laine Patel, RNAssisted by | | Pre-Procedure Consent: written consent obtained Consent given by: Patient | | Patient identity confirmed per protocol: Yes Team Pause: Immediatly prior to the | | procedure a pause per protocol was called. A pause verifies correct patient, | | procedure, equipment, client support professional and site/side marked as required. CLABSI | [...] in the | | Left Arm area Cephalic vein. Catheter lot number: [id number] with a length of 55 cm | | was selected and trimmed 9 to a remaining length of 46 cm All ports | | aspirated for blood and flushed with saline Procedure comments: Left arm circumference | | is 32cm measured at 10cm above the AC. Power-injectable line: yes Attempts 1 | | attempt(s) were made Complications None PICC catheter tip location Chest | | radiograph ordered to verify placement and Line verified by radiograph Adjustments | | made after chest film obtained: none External measurement of catheter exposed: 1cm cm. | | PICC catheter tip location: Cavo-Atrial Junction Radiologist confirmed tip | | position Estimated blood loss: <10mL | + + X-RAY PORTABLE CHEST 1 VIEW (07/25/2017 10:03 AM) + + + | Specimen | Performing Laboratory | + + + | | [facility] | + + + + + | Narrative | + + | STUDY: AR CHEST 1 VIEW 07/25/17 09:31:38 COMPARISON: 07/20/17 HISTORY: | | AML. PICC placement. FINDINGS: Support equipment: Interval removal of right PICC | | and placement of a left PICC terminating approximately 1 cm below the typical junction. | | Lungs: Vague right lung base and left midlung opacity. Pleura: No pleural | | effusion or pneumothorax. Cardiomediastinal: Normal. Musculoskeletal: Calcific | | tendinosis of the right shoulder. IMPRESSION: 1. Interval removal of right | | tic and placement of a left PICC to approximately 1 cm below the cavoatrial junction. | | 2. Vague left midlung and right basilar opacity possibly atelectasis although | | pneumonia could not be excluded in the appropriate clinical setting. I have | | personally reviewed the images and, if necessary, edited the report. I agree with the | | report as now presented. | + + + + | Procedure Note | + + | Service Account, DaWanda Res In Interface - 07/25/2017 10:38 AM PDT STUDY: AR CHEST 1 | | VIEW 07/25/17 09:31:38COMPARISON: 07/20/17HISTORY: AML. PICC | | placement.FINDINGS:Support equipment: Interval removal of right PICC and placement of a | | left PICC terminating approximately 1 cm below the typical junction.Lungs: Vague right | | lung base and left midlung opacity.Pleura: No pleural effusion or | | pneumothorax.Cardiomediastinal: Normal.Musculoskeletal: Calcific tendinosis of the right | | shoulder.IMPRESSION:1. Interval removal of right tic and placement of a left PICC to | | approximately 1 cm below the cavoatrial junction.2. Vague left midlung and right | | basilar opacity possibly atelectasis although pneumonia could not be excluded in the | | appropriate clinical setting.I have personally reviewed the images and, if necessary, | | edited the report. I agree with the report as now presented. | |Pleura: No pleural effusion or pneumothorax. | | | |Cardiomediastinal: Normal. | | | |Musculoskeletal: Calcific tendinosis of the right shoulder. | | | |IMPRESSION: | | | |1. Interval removal of right tic and placement of a left PICC to approximately 1 cm below the cavoatrial junction. | |2. Vague left midlung and right basilar opacity possibly atelectasis although pneumonia co uld not be excluded in the appropriate clinical setting. | | | | | |I have personally reviewed the images and, if necessary, edited the report. I agree with t he report as now presented. | + + VAT: PICC INSERTION W/US (07/25/2017 9:08 AM) + + | Narrative | + + | See procedure note. | + + CBC AND AUTO DIFF (07/24/2017 11:47 PM) + + + + | Component | Value | Ref Range | + + + + | WHITE CELL COUNT | <0.10 (L) | 3.50 - 10.80 K/cu mm | + + + + | RED CELL COUNT | 2.70 (L) | 4.00 - 5.20 M/cu mm | + + + + | HEMOGLOBIN | 7.8 (L) | 12.0 - 16.0 g/dL | + + + + | HEMATOCRIT | 21.3 (L) | 36.0 - 46.0 % | + + + + | MCV | 78.9 (L) | 80.0 - 96.0 fL | + + + + | MCHC | 36.6 | 33.0 - 35.5 g/dL | + + + + | RDW SD | 36.0 | 35.1 - 46.3 fL | + + + + | PLATELET COUNT | 46 (L) | 150 - 400 K/cu mm | + + + + | MPV | 14.0 (H) | 9.7 - 12.3 fL | [...] | | + + + + | IG% | Comment: WBC <300; differential not | 0.0 - 1.0 % | | | performed. | | [...] | | + + + + | IG# | Comment: WBC <300; differential not | 0.00 - 0.10 K/cu mm | | | performed. | | + + + + + + + | Specimen | Performing Laboratory | + + + | Blood | [facility], [place] [address] [place] [address] | | | [place] [address] | + + + COAGULOPATHY PANEL (INR,APTT,FIBRINOGEN) (07/24/2017 11:47 PM) + + + + | Component | Value | Ref Range | + + + + | INR | 1.22 (H) | 0.90 - 1.20 INR | + + + + | APTT | 41.1 (H) | 26.0 - 36.0 seconds | + + + + | FIBRINOGEN LEVEL | 690 (H) | 200 - 450 mg/dL | + + + + + + + | Specimen | Performing Laboratory | + + + | Blood | [facility], [place] [address] | | | [place] [address] | + + + + + | Narrative | + + | INR Therapeutic ranges for full anticoagulation: INR for Venous | | Thromboembolism (2.0 - 3.0) INR INR for most patients with | | mech. valves (2.5 - 3.5) INR APTT Therapeutic | | Range: (75 - 120) sec Heparin levels | | of 0.35 - 0.7 U/mL | + + LDH TOTAL, PLASMA (07/24/2017 11:47 PM) + +---------+ + | Component | Value | Ref Range | + +---------+ + | LD TOTAL, PLASMA | 377 (H) | <=250 U/L | + +---------+ + | LD CMNT | Sl Hemo | | + +---------+ + + + + | Specimen | Performing Laboratory | + + + | Blood | [facility], CORE [address] | | | [place] [address] | + + + + + | Narrative | + + | Sample hemolyzed. Results for K, Total Bili, Direct Bili, AST, LDH, or HDL may be | | inaccurate. Refer to comment under test result. | + + URIC ACID, PLASMA (07/24/2017 11:47 PM) + +---------+ + | Component | Value | Ref Range | + +---------+ + | URIC ACID, PLASMA | 1.1 (L) | 2.5 - 6.2 mg/dL | | (LAB) | | | + +---------+ + + + + | Specimen | Performing Laboratory | + + + | Blood | [facility], [facility] [address] | | | [place] [address] | + + + PHOSPHORUS, PLASMA (07/24/2017 11:47 PM) + +-------+ + | Component | Value | Ref Range | + +-------+ + | PHOSPHORUS, PLASMA | 3.4 | 2.4 - 4.7 mg/dL | | (LAB) | | | + +-------+ + + + + | Specimen | Performing Laboratory | + + + | Blood | [facility], [facility] [address] [place] [address] | | | [place] [address] | + + + MAGNESIUM, PLASMA (07/24/2017 11:47 PM) + +-------+ + | Component | Value | Ref Range | + +-------+ + | MAGNESIUM,PLASMA | 1.8 | 1.6 - 2.6 mg/dL | + +-------+ + + + + | Specimen | Performing Laboratory | + + + | Blood | [facility], [address]ORE [address] | | | [place] [address] | + + + + + | Narrative | + + | Reference range change effective 12/11/16. | + + CBC, WITH DIFFERENTIAL (07/24/2017 11:47 PM) + + + | Specimen | Performing Laboratory | + + + | Blood | | + + + + + | Narrative | + + | The following orders were created for panel order CBC, WITH DIFFERENTIAL. | | Procedure | | Abnormality Status | | --------- | | ------ CBC AND AUTO | | DIFF[[id number]] Abnormal Final | | result Please view results for these tests on the | | individual orders. | + + COMPLETE METABOLIC SET (NA,K,CL,CO2,BUN,CREAT,GLUC,CA,AST,ALT,BILI TOTAL,ALK PHOS,ALB,PROT TOTAL) (07/24/2017 11:47 PM) + + + + | Component [...] | >60 | >60 mL/min | | JORDANIAN | | | + + + + | EGFR NON | >60 | >60 mL/min | | -JORDANIAN | | | + + + + | SODIUM, PLASMA (LAB) | 136 | 136 - 145 mmol/L | + + + + | POTASSIUM, PLASMA | 4.0 | 3.4 - 5.0 mmol/L | | [...] + + + + | CALCIUM(ALB | 9.9 | 8.6 - 10.2 mg/dL | | CORRECTED) | | | + + + + | BILIRUBIN TOTAL | 1.0 | 0.3 - 1.2 mg/dL | + + + + | TOTAL PROTEIN, | 6.1 (L) | 6.4 - 8.2 g/dL | [...] + + + | ALT (SGPT) | 17 | <=60 U/L | + + + + | ANION GAP | 7 | 4 - 11 mmol/L | + + + + | ANION GAP(ALB | 11 | 4 - 11 mmol/L | | CORRECTED) | | | + + + + | POTASSIUM CMNT | Sl Hemo | | + + + + | AST CMNT | Sl Hemo | | + + + + + + + | Specimen | Performing Laboratory | + + + | Blood | [facility] [address] | | | [place] [address] | + + + + + | Narrative | + + | Adult glucose reference range change effective 7-12-17. Sample hemolyzed. Results | | for K, Total Bili, Direct Bili, AST, LDH, or HDL may be inaccurate. Refer to comment | | under test result. GFR is estimated using the MDRD equation recommended by the National | | Kidney Disease Education Program. Estimated GFR Interpretive Information: <60 | | mL/min/1.73 sq m Chronic Kidney Disease <15 mL/min/1.73 sq [...] kidney function | + + PHOSPHORUS, PLASMA (07/23/2017 11:30 PM) + +-------+ + | Component | Value | Ref Range | + +-------+ + | PHOSPHORUS, PLASMA | 2.7 | 2.4 - 4.7 mg/dL | | (LAB) | | | + +-------+ + + + + | Specimen | Performing Laboratory | + + + | Blood | [facility], [facility] [address] [place] [address] | | | [place] [address] | + + + MAGNESIUM, PLASMA (07/23/2017 11:30 PM) + +-------+ + | Component | Value | Ref Range | + +-------+ + | MAGNESIUM,PLASMA | 1.8 | 1.6 - 2.6 mg/dL | + +-------+ + + + + | Specimen | Performing Laboratory | + + + | Blood | [facility], CORE [address] [place] [address] | | | [place] [address] | + + + + + | Narrative | + + | Reference range change effective 12/11/16. | + + COMPLETE METABOLIC SET (NA,K,CL,CO2,BUN,CREAT,GLUC,CA,AST,ALT,BILI TOTAL,ALK PHOS,ALB,PROT TOTAL) (07/23/2017 11:30 PM) + + + + | Component | Value | Ref Range | + + + + | GLUCOSE, PLASMA | 103 (H) | 70 - 99 mg/dL | | (LAB) | | | + + + + | BUN, PLASMA (LAB) | 5 (L) | 6 - 20 mg/dL | + + + + | CREATININE PLASMA | 0.42 (L) | 0.60 - 1.10 mg/dL | | (LAB) | | | + + + + | EGFR - | >60 | >60 mL/min | | JORDANIAN | | | + + + + | EGFR NON | >60 | >60 mL/min | | -JORDANIAN | | | + + + + [...] + + | TOTAL CO2, PLASMA | 23 | 21 - 32 mmol/L | | (LAB) | | | + + + + | CALCIUM, PLASMA | 8.5 (L) | 8.6 - 10.2 mg/dL | | (LAB) | | | + + + + | CALCIUM(ALB | 9.4 | 8.6 - 10.2 mg/dL | | CORRECTED) | | | + + + + | BILIRUBIN TOTAL | 1.2 | 0.3 - 1.2 mg/dL | + + + + | TOTAL PROTEIN, | 6.8 | 6.4 - 8.2 g/dL | | PLASMA (LAB) | | | + + + + | ALBUMIN, PLASMA | 2.9 (L) | 3.5 - 4.7 g/dL | | (LAB) | | | + + + + | ALK PHOS | 180 (H) | 42 - 98 U/L | + + + + | AST(SGOT) | 16 | <=41 U/L | + + + + | ALT (SGPT) | 19 | <=60 U/L | + + + + | ANION GAP | 11 | 4 - 11 mmol/L | + + + + | ANION GAP(ALB | 13 (H) | 4 - 11 mmol/L | [...] | + + + | Blood | [facility], [facility] [address] | | | [place] [address] | + + + + + | [...] function | + + CBC (HEMOGRAM) ONLY (07/23/2017 8:20 PM) + + + + | Component | Value | Ref Range | + + + + | WHITE CELL COUNT | <0.10 (L) | 3.50 - 10.80 K/cu mm | + + + + | RED CELL COUNT | 3.26 (L) | 4.00 - 5.20 M/cu mm | + + + + | HEMOGLOBIN | 9.4 (L) | 12.0 - 16.0 g/dL | + + + + | HEMATOCRIT | 25.4 (L) | 36.0 - 46.0 % | + + + + | MCV | 77.9 (L) | 80.0 - 96.0 fL | + + + + | MCHC | 37.0 | 33.0 - 35.5 g/dL | + + + + | RDW SD | 35.5 | 35.1 - 46.3 fL | + + + + | PLATELET COUNT | 19 (L) | 150 - 400 K/cu mm [...] | + + + | Blood | [facility], [address]ORE [address] | | | [place] [address] | + + + CBC ONLY (07/23/2017 8:20 PM) + + + | Specimen | Performing Laboratory | + + + | Blood | | + + + + + | Narrative | + + | The following orders were created for panel order CBC ONLY. | | Procedure | | Abnormality Status | | --------- | | ------ CBC (HEMOGRAM) | | ONLY[[id number]] Abnormal Final | | result Please view results for these tests on the | | individual orders. | + + CBC (HEMOGRAM) ONLY (07/23/2017 4:00 AM) + + + + | Component | Value | Ref Range | + + + + | WHITE CELL COUNT | <0.10 (L) | 3.50 - 10.80 K/cu mm | + + + + | RED CELL COUNT | 2.96 (L) | 4.00 - 5.20 M/cu mm | + + + + | HEMOGLOBIN | 8.6 (L) | 12.0 - 16.0 g/dL | + + + + | HEMATOCRIT | 23.5 (L) | 36.0 - 46.0 % | + + + + | MCV | 79.4 (L) | 80.0 - 96.0 fL | + + + + | MCHC | 36.6 | 33.0 - 35.5 g/dL | + + + + | RDW SD | 35.8 | 35.1 - 46.3 fL | + [...] | + + + | Blood | [facility] [address] [place] [address] | | | [place] [address] | + + + CBC ONLY (07/23/2017 4:00 AM) + + + | Specimen | Performing Laboratory | + + + | Blood | | + + + + + | Narrative | + + | The following orders were created for panel order CBC ONLY. | | Procedure | | Abnormality Status | | --------- | | ------ CBC (HEMOGRAM) | | ONLY[[id number]] Abnormal Final | | result Please view results for these tests on the | | individual orders. | + + PRODUCT - RED CELLS LEUKOREDUCED (07/22/2017 11:38 PM) + + + + | Component | Value | Ref Range | + + + + | PRODUCT DESCRIPTION | -1 RED BLOOD CELLS ADENINE-SALINE ADDED | | | | LEUKOCYT | | + + + + | PRODUCT UNIT # | [id number] | | + + + + | UNIT ABO | O | | + + + + | UNIT RH | POS | | + + + + | STATUS OF UNIT | Presumed Transfused | | + + + + | EXPIRATION DATE | [id number] | | + + + + | BLOOD TYPE BARCODE | 5100 | | + + + + | BLOOD PRODUCT CODE | [id number] | | + + + + + + + | Specimen | Performing Laboratory | + + + | | [facility], [facility]ICINE [address] [facility] | | | [place] [address] | + + + CBC AND AUTO DIFF (07/22/2017 10:50 PM) + + + + | Component | Value | Ref Range | + + + + | WHITE CELL COUNT | <0.10 (L) | 3.50 - 10.80 K/cu mm | + + + + | RED CELL COUNT | 1.97 (L) | 4.00 - 5.20 M/cu mm | + + + + | HEMOGLOBIN | 5.9 (LL) | 12.0 - 16.0 g/dL | + + + + | HEMATOCRIT | 15.6 (LL) | 36.0 - 46.0 % | + + + + | MCV | 79.2 (L) | 80.0 - 96.0 fL | + + + + | MCHC | 37.8 | 33.0 - 35.5 g/dL | + + + + | RDW SD | 35.8 | 35.1 - 46.3 fL | + + + + | PLATELET COUNT | 65 (L) | 150 - 400 K/cu mm | + + + + | MPV | 12.5 (H) | 9.7 - 12.3 fL | [...] | | + + + + | IG% | Comment: WBC <300; differential not | 0.0 - 1.0 % | | | performed. | | [...] | | + + + + | IG# | Comment: WBC <300; differential not | 0.00 - 0.10 K/cu mm | | | performed. | | + + + + + + + | Specimen | Performing Laboratory | + + + | Blood | [facility], CORE [address] | | | [place] [address] | + + + INR (07/22/2017 10:50 PM) + +-------+ + | Component | Value | Ref Range | + +-------+ + | INR | 1.13 | 0.90 - 1.20 INR | + +-------+ + + + + | Specimen | Performing Laboratory | + + + | Blood | [facility], [address] [address] | | | [place] [address] | + + + + + | Narrative | + + | INR Therapeutic ranges for full anticoagulation: INR for Venous | | Thromboembolism (2.0 - 3.0) INR INR for most patients with | | mech. valves (2.5 - 3.5) INR | + + PHOSPHORUS, PLASMA (07/22/2017 10:50 PM) + +-------+ + | Component | Value | Ref Range | + +-------+ + | PHOSPHORUS, PLASMA | 2.7 | 2.4 - 4.7 mg/dL | | (LAB) | | | + +-------+ + + + + | Specimen | Performing Laboratory | + + + | Blood | [facility], [facility] [address] | | | [place] [address] | + + + MAGNESIUM, PLASMA (07/22/2017 10:50 PM) + +-------+ + | Component | Value | Ref Range | + +-------+ + | MAGNESIUM,PLASMA | 2.0 | 1.6 - 2.6 mg/dL | + +-------+ + + + + | Specimen | Performing Laboratory | + + + | Blood | [facility], C[facility] [address] | | | [place] [address] | + + + + + | Narrative | + + | Reference range change effective 12/11/16. | + + CBC, WITH DIFFERENTIAL (07/22/2017 10:50 PM) + + + | Specimen | Performing Laboratory | + + + | Blood | | + + + + + | Narrative | + + | The following orders were created for panel order CBC, WITH DIFFERENTIAL. | | Procedure | | Abnormality Status | | --------- | | ------ CBC AND AUTO | | DIFF[[id number]] Abnormal Final | | result Please view results for these tests on the | | individual orders. | + + COMPLETE METABOLIC SET (NA,K,CL,CO2,BUN,CREAT,GLUC,CA,AST,ALT,BILI TOTAL,ALK PHOS,ALB,PROT TOTAL) (07/22/2017 10:50 PM) + + + + | Component | Value | Ref Range | + + + + | GLUCOSE, PLASMA | 104 (H) | 70 - 99 mg/dL | | (LAB) | | | + + + + | BUN, PLASMA (LAB) | 7 | 6 - 20 mg/dL | + + + + | CREATININE PLASMA | 0.45 (L) | 0.60 - 1.10 mg/dL | | (LAB) | | | + + + + | EGFR - | >60 | >60 mL/min | | JORDANIAN | | | + + + + | EGFR NON | >60 | >60 mL/min | | -JORDANIAN | | | + + + + [...] + + + | CALCIUM, PLASMA | 8.7 | 8.6 - 10.2 mg/dL | | (LAB) | | | + + + + | CALCIUM(ALB | 9.6 | 8.6 - 10.2 mg/dL | | CORRECTED) | | | + + + + | BILIRUBIN TOTAL | 1.0 | 0.3 - 1.2 mg/dL | + + + + | TOTAL PROTEIN, | 6.7 | 6.4 - 8.2 g/dL | | PLASMA (LAB) | | | + + + + | ALBUMIN, PLASMA | 2.9 (L) | 3.5 - 4.7 g/dL | | (LAB) | | | + + + + | ALK PHOS | 177 (H) | 42 - 98 U/L | + + + + | AST(SGOT) | 45 (H) | <=41 U/L | + + + + | ALT (SGPT) | 24 | <=60 U/L | + + + + | ANION GAP | 7 | 4 - 11 mmol/L | + + + + | ANION GAP(ALB | 9 | 4 - 11 mmol/L | | CORRECTED) | | | + + + + | POTASSIUM CMNT | Mod Hemo | | + + + + | BILI T CMNT | Mod Hemo | | + + + + | AST CMNT | Mod Hemo | | + + + + + + + | Specimen | Performing Laboratory | + + + | Blood | [facility], [facility] [address] | | | [place] [address] | + + + + + | Narrative | + + | Adult glucose reference range change effective 7-12-17. Sample hemolyzed. Results | | for K, Total Bili, Direct Bili, AST, LDH, or HDL may be inaccurate. Refer to comment | | under test result. GFR is estimated using the MDRD equation recommended by the National | | Kidney Disease Education Program. Estimated GFR Interpretive Information: <60 | | mL/min/1.73 sq m Chronic Kidney Disease <15 mL/min/1.73 sq [...] Rapidly changing kidney function | + + JEANNIEE (FRANCISCO) BY PCR (07/22/2017 11:55 AM) + + + + | Component | Value | Ref Range | + + + + | VRE BY PCR | Negative for van A gene | Negative for van A | | | | gene | + + + + + + + | Specimen | Performing Laboratory | + + + | Swab - Rectum | [facility], CORE [address] | | | [place] [address] | + + + PRODUCT - RED CELLS LEUKOREDUCED (07/22/2017 2:36 AM) + + + + | Component | Value | Ref Range | + + + + | PRODUCT DESCRIPTION | -1 RED BLOOD CELLS ADENINE-SALINE ADDED | | | | LEUKOCYT | | + + + + | PRODUCT UNIT # | [id number] | | + + + + | UNIT ABO | O | | + + + + | UNIT RH | POS | | + + + + | STATUS OF UNIT | Presumed Transfused | | + + + + | EXPIRATION DATE | [id number] | | + + + + | BLOOD TYPE BARCODE | 5100 | | + + + + | BLOOD PRODUCT CODE | [id number] | | + + + + + + + | Specimen | Performing Laboratory | + + + | | [facility], [facility]IC[facility] [address] [facility] | | | [place] [address] | + + + PRODUCT - PLATELET PHERESIS LEUKOREDUCED (07/22/2017 2:36 AM) + + + + | Component | Value | Ref Range | + + + + | PRODUCT DESCRIPTION | PLATELETS PHERESIS, LEUKOCYTE REDUCED, | | | | IRRADIATED | | + + + + | PRODUCT UNIT # | [id number] | | + + + + | UNIT ABO | O | | + + + + | UNIT RH | POS | | + + + + | STATUS OF UNIT | Presumed Transfused | | + + + + | EXPIRATION DATE | [id number] | | + + + + | BLOOD TYPE BARCODE | 5100 | | + + + + | BLOOD PRODUCT CODE | [id number] | | + + + + + + + | Specimen | Performing Laboratory | + + + | | [facility] [address] [place] [address] | | | [place] [address] | + + + ANTIBODY SCREEN (07/22/2017 12:35 AM) + + + + | Component | Value | Ref Range | + + + + | Antibody Screen | Negative | | + + + + + + + | Specimen | Performing Laboratory | + + + | Blood | [facility], [facility]ICINE [address] [facility] | | | [place] [address] | + + + ABO & RH TYPE (07/22/2017 12:35 AM) + + + + | Component | Value | Ref Range | + + + + | ABO Group | O | | + + + + | Rh Type | Positive | | + + + + + + + | Specimen | Performing Laboratory | + + + | Blood | [facility], [facility]ICINE [address] [facility] | | | [place] [address] | + + + TYPE AND SCREEN (07/22/2017 12:35 AM) + + + | Specimen | Performing Laboratory | + + + | Blood | | + + + + + | Narrative | + + | The following orders were created for panel order TYPE AND SCREEN. | | Procedure | | Abnormality Status | | --------- | | ------ ABO & RH | | TYPE[[id number]] F | | inal result ANTIBODY | | SCREEN[[id number]] Fin | | al result Please view results for these tests on the | | individual orders. | + + CBC AND AUTO DIFF (07/22/2017 12:35 AM) + + + + | Component | Value | Ref Range | + + + + | WHITE CELL COUNT | <0.10 (L) | 3.50 - 10.80 K/cu mm | + + + + | RED CELL COUNT | 2.29 (L) | 4.00 - 5.20 M/cu mm | + + + + | HEMOGLOBIN | 6.7 (L) | 12.0 - 16.0 g/dL | + + + + | HEMATOCRIT | 18.6 (L) | 36.0 - 46.0 % | + + + + | MCV | 81.2 | 80.0 - 96.0 fL | + + + + | MCHC | 36.0 | 33.0 - 35.5 g/dL | + + + + | RDW SD | 36.1 | 35.1 - 46.3 fL | + [...] | | + + + + | IG% | Comment: WBC <300; differential not | 0.0 - 1.0 % | | | performed. | | [...] | | + + + + | IG# | Comment: WBC <300; differential not | 0.00 - 0.10 K/cu mm | | | performed. | | + + + + + + + | Specimen | Performing Laboratory | + + + | Blood | [facility], [facility] [address] | | | [place] [address] | + + + COAGULOPATHY PANEL (INR,APTT,FIBRINOGEN) (07/22/2017 12:35 AM) + + + + | Component | Value | Ref Range | + + + + | INR | 1.20 | 0.90 - 1.20 INR | + + + + | APTT | 43.5 (H) | 26.0 - 36.0 seconds | + + + + | FIBRINOGEN LEVEL | 581 (H) | 200 - 450 mg/dL | + + + + + + + | Specimen | Performing Laboratory | + + + | Blood | [facility], [facility] [address] | | | [place] [address] | + + + + + | Narrative | + + | INR Therapeutic ranges for full anticoagulation: INR for Venous | | Thromboembolism (2.0 - 3.0) INR INR for most patients with | | mech. valves (2.5 - 3.5) INR APTT Therapeutic | | Range: (75 - 120) sec Heparin levels | | of 0.35 - 0.7 U/mL | + + LDH TOTAL, PLASMA (07/22/2017 12:35 AM) + +---------+ + | Component | Value | Ref Range | + +---------+ + | LD TOTAL, PLASMA | 181 | <=250 U/L | + +---------+ + | LD CMNT | No Hemo | | + +---------+ + + + + | Specimen | Performing Laboratory | + + + | Blood | [facility], [facility] [address] | | | [place], [place] [address] | + + + URIC ACID, PLASMA (07/22/2017 12:35 AM) + +---------+ + | Component | Value | Ref Range | + +---------+ + | URIC ACID, PLASMA | 2.2 (L) | 2.5 - 6.2 mg/dL | | (LAB) | | | + +---------+ + + + + | Specimen | Performing Laboratory | + + + | Blood | [facility], [facility] [address] | | | [place] [address] | + + + PHOSPHORUS, PLASMA (07/22/2017 12:35 AM) + +-------+ + | Component | Value | Ref Range | + +-------+ + | PHOSPHORUS, PLASMA | 3.2 | 2.4 - 4.7 mg/dL | | (LAB) | | | + +-------+ + + + + | Specimen | Performing Laboratory | + + + | Blood | [facility], [facility] [address] [place] [address] | | | [place] [address] | + + + MAGNESIUM, PLASMA (07/22/2017 12:35 AM) + +-------+ + | Component | Value | Ref Range | + +-------+ + | MAGNESIUM,PLASMA | 2.2 | 1.6 - 2.6 mg/dL | + +-------+ + + + + | Specimen | Performing Laboratory | + + + | Blood | [facility], [facility] [address] [place] [address] | | | [place] [address] | + + + + + | Narrative | + + | Reference range change effective 12/11/16. | + + CBC, WITH DIFFERENTIAL (07/22/2017 12:35 AM) + + + | Specimen | Performing Laboratory | + + + | Blood | | + + + + + | Narrative | + + | The following orders were created for panel order CBC, WITH DIFFERENTIAL. | | Procedure | | Abnormality Status | | --------- | | ------ CBC AND AUTO | | DIFF[[id number]] Abnormal Final | | result Please view results for these tests on the | | individual orders. | + + COMPLETE METABOLIC SET (NA,K,CL,CO2,BUN,CREAT,GLUC,CA,AST,ALT,BILI TOTAL,ALK PHOS,ALB,PROT TOTAL) (07/22/2017 12:35 AM) + + + + | Component [...] | >60 | >60 mL/min | | JORDANIAN | | | + + + + | EGFR NON | >60 | >60 mL/min | | -JORDANIAN | | | + + + + [...] + + + | CALCIUM, PLASMA | 8.3 (L) | 8.6 - 10.2 mg/dL | | (LAB) | | | + + + + | CALCIUM(ALB | 9.3 | 8.6 [...] + + + | ALK PHOS | 190 (H) | 42 - 98 U/L | + + + + | AST(SGOT) | 15 | <=41 U/L | + + + + | ALT (SGPT) | 26 | <=60 U/L | + + + + | ANION GAP | 8 | 4 - 11 mmol/L | + + + + | [...] | + + + | Blood | [facility], [facility] [address] | | | [place] [address] | + + + + + | [...] + CULTURE, BLOOD BACTI & YEAST [place] (07/21/2017 6:59 PM) + + + + | Component | Value | Ref Range | + + + + | CULTURE RESULT | Final Report:No Bacteria or Yeast isolated | | | | at 5 days. | | + + + + + + + | Specimen | Performing Laboratory | + + + | Blood - PICC purple | [facility], [facility] [address] | | port | [place] [address] | + + + CULTURE, BLOOD BACTI & YEAST (07/21/2017 6:59 PM) + + + | Specimen | Performing Laboratory | + + + | Blood | | + + + + + | Narrative | + + | The following orders were created for panel order CULTURE, BLOOD BACTI & YEAST. | | Procedure | | Abnormality Status | | --------- | | ------ CULTURE, BLOOD | | BACTI & Y...[[id number]] Final | | result Please view results for these tests on the | | individual orders. | + + POTASSIUM, PLASMA (07/21/2017 10:27 AM) + +---------+ + | Component | Value | Ref Range | + +---------+ + | POTASSIUM, PLASMA | 3.3 (L) | 3.4 - 5.0 mmol/L | | (LAB) | | | + +---------+ + | POTASSIUM CMNT | No Hemo | | + +---------+ + + + + | Specimen | Performing Laboratory | + + + | Blood | [facility], [address] | | | [place] [address] | + + + + + | Narrative | + + | For hypokalemia and potassium replacement | + + CBC AND AUTO DIFF (07/20/2017 11:00 PM) + + + + | Component | Value | Ref Range | + + + + | WHITE CELL COUNT | <0.10 (L) | 3.50 - 10.80 K/cu mm | + + + + | RED CELL COUNT | 2.79 (L) | 4.00 - 5.20 M/cu mm | + + + + | HEMOGLOBIN | 8.1 (L) | 12.0 - 16.0 g/dL | + + + + | HEMATOCRIT | 22.2 (L) | 36.0 - 46.0 % | + + + + | MCV | 79.6 (L) | 80.0 - 96.0 fL | + + + + | MCHC | 36.5 | 33.0 - 35.5 g/dL | + + + + | RDW SD | 35.6 | 35.1 - 46.3 fL | + [...] | | + + + + | IG% | Comment: WBC <300; differential not | 0.0 - 1.0 % | | | performed. | | [...] | | + + + + | IG# | Comment: WBC <300; differential not | 0.00 - 0.10 K/cu mm | | | performed. | | + + + + + + + | Specimen | Performing Laboratory | + + + | Blood | [facility], [address] [place] [address] | | | [place] [address] | + + + INR (07/20/2017 11:00 PM) + +-------+ + | Component | Value | Ref Range | + +-------+ + | INR | 1.14 | 0.90 - 1.20 INR | + +-------+ + + + + | Specimen | Performing Laboratory | + + + | Blood | [facility], [address] | | | [place] [address] | + + + + + | Narrative | + + | INR Therapeutic ranges for full anticoagulation: INR for Venous | | Thromboembolism (2.0 - 3.0) INR INR for most patients with | | mech. valves (2.5 - 3.5) INR | + + PHOSPHORUS, PLASMA (07/20/2017 11:00 PM) + +---------+ + | Component | Value | Ref Range | + +---------+ + | PHOSPHORUS, PLASMA | 1.7 (L) | 2.4 - 4.7 mg/dL | | (LAB) | | | + +---------+ + + + + | Specimen | Performing Laboratory | + + + | Blood | [facility], [address] [place] [address] | | | [place] [address] | + + + MAGNESIUM, PLASMA (07/20/2017 11:00 PM) + +-------+ + | Component | Value | Ref Range | + +-------+ + | MAGNESIUM,PLASMA | 1.6 | 1.6 - 2.6 mg/dL | + +-------+ + + + + | Specimen | Performing Laboratory | + + + | Blood | [facility], [address] | | | [place], [place] [address] | + + + + + | Narrative | + + | Reference range change effective 12/11/16. | + + CBC, WITH DIFFERENTIAL (07/20/2017 11:00 PM) + + + | Specimen | Performing Laboratory | + + + | Blood | | + + + + + | Narrative | + + | The following orders were created for panel order CBC, WITH DIFFERENTIAL. | | Procedure | | Abnormality Status | | --------- | | ------ CBC AND AUTO | | DIFF[[id number]] Abnormal Final | | result Please view results for these tests on the | | individual orders. | + + COMPLETE METABOLIC SET (NA,K,CL,CO2,BUN,CREAT,GLUC,CA,AST,ALT,BILI TOTAL,ALK PHOS,ALB,PROT TOTAL) (07/20/2017 11:00 PM) + +---------+ + | Component | Value | Ref Range | + +---------+ + | GLUCOSE, PLASMA | 95 | [...] | >60 | >60 mL/min | | JORDANIAN | | | + +---------+ + | EGFR NON | >60 | >60 mL/min | | -JORDANIAN | | | + +---------+ + | SODIUM, PLASMA (LAB) | 137 | 136 - 145 mmol/L | + +---------+ + | POTASSIUM, PLASMA | 2.8 (L) | 3.4 - 5.0 mmol/L | | (LAB) | | | + +---------+ + | CHLORIDE, PLASMA | 102 | 97 - 108 mmol/L | | (LAB) | | | + +---------+ + | TOTAL CO2, PLASMA | 26 | 21 - 32 mmol/L | | (LAB) | | | + +---------+ + | CALCIUM, PLASMA | 8.9 | 8.6 - 10.2 mg/dL | | (LAB) | | | + +---------+ + | CALCIUM(ALB | 9.5 | 8.6 - 10.2 mg/dL | | CORRECTED) | | | + +---------+ + | BILIRUBIN TOTAL | 0.7 | 0.3 - 1.2 mg/dL | + +---------+ + | TOTAL PROTEIN, | 6.6 | 6.4 - 8.2 g/dL | | PLASMA (LAB) | | | + +---------+ + | ALBUMIN, PLASMA | 3.2 (L) | 3.5 - 4.7 g/dL | | (LAB) | | | + +---------+ + | ALK PHOS | 225 (H) | 42 - 98 U/L | + +---------+ + | AST(SGOT) | 30 | <=41 U/L | + +---------+ + | ALT (SGPT) | 34 | <=60 U/L | + +---------+ + | ANION GAP | 9 | 4 - 11 mmol/L | + +---------+ + | ANION [...] | + + + | Blood | [facility], CORE [address] | | | [place] [address] | + + + + + | [...] Rapidly changing kidney function | + + X-RAY CHEST 2 VIEW (07/20/2017 8:12 PM) + + + | Specimen | Performing Laboratory | + + + | | [facility] VOICE RECOGNITION | + + + + + | Narrative | + + | STUDY: CHEST 2 VIEWS HISTORY: Evaluate for pneumonia there is a neutropenic fever | | COMPARISON: Chest CT and radiograph on 06/29/2017 FINDINGS: Right approach | | PICC in unchanged position with tip at distal SVC. The cardiomediastinal contour is | | stable. Dense calcification of the aortic arch is noted. There is minimal left basilar | | atelectasis. There is no pulmonary edema or focal consolidation. There is no pleural | | effusion. There is no pneumothorax. No acute osseus abnormality. IMPRESSION: | | Minimal left basilar atelectasis. I have personally reviewed the images and, if | | necessary, edited the report. I agree with the report as now presented. | + + + + | Procedure Note | + + | Service Account, Radiant Res In Interface - 07/22/2017 12:12 PM PDT STUDY: CHEST 2 | | VIEWSHISTORY: Evaluate for pneumonia there is a neutropenic feverCOMPARISON: Chest CT | | and radiograph on 06/29/2017FINDINGS: Right approach PICC in unchanged position with tip | | at distal SVC. The cardiomediastinal contour is stable. Dense calcification of the | | aortic arch is noted. There is minimal left basilar atelectasis. There is no pulmonary | | edema or focal consolidation. There is no pleural effusion. There is no pneumothorax. No | | acute osseus abnormality.IMPRESSION: Minimal left basilar atelectasis.I have personally | | reviewed the images and, if necessary, edited the report. I agree with the report as | | now presented. | |pulmonary edema or focal consolidation. There is no pleural effusion. There is no pneumotho rax. No acute osseus abnormality. | | | |IMPRESSION: | | | |Minimal left basilar atelectasis. | | | | | |I have personally reviewed the images and, if necessary, edited the report. I agree with t he report as now presented. | + + URINE, MICROSCOPIC EXAM (07/20/2017 8:00 PM) + +---------+ + | Component | Value | Ref Range | + +---------+ + | RED CELLS | 1 | 0 - 3 /hpf | + +---------+ + | WHITE CELLS | 3 | 0 - 5 /hpf | + [...] | + + + | Urine | [facility], CORE [address] | | | [place], [place] [address] | + + + URINE SCREEN FOR CULTURE (07/20/2017 8:00 PM) + + + + | Component | Value | Ref Range | + + + + | CULT, URINE SCREEN | Negative | Negative | + + + + + + + | Specimen | Performing Laboratory | + + + | Urine | [facility] [address] | | | [place] [address] | + + + + + | Narrative | + + | Culture Screen Negative. Culture not indicated. | + + CULTURE, BLOOD BACTI & YEAST [place] (07/20/2017 7:45 PM) + + + + | Component | Value | Ref Range | + + + + | CULTURE RESULT | Final Report:No Bacteria or Yeast isolated | | | | at 5 days. | | + + + + + + + | Specimen | Performing Laboratory | + + + | Blood - Peripheral | [facility], CORE [address] | | | [place] [address] | + + + CULTURE, BLOOD BACTI & YEAST (07/20/2017 7:45 PM) + + + | Specimen | Performing Laboratory | + + + | Blood - Peripheral | | + + + + + | Narrative | + + | The following orders were created for panel order CULTURE, BLOOD BACTI & YEAST. | | Procedure | | Abnormality Status | | --------- | | ------ CULTURE, BLOOD | | BACTI & Y...[[id number]] Final | | result Please view results for these tests on the | | individual orders. | + + BLOOD CULTURE WORKUP (07/20/2017 7:35 PM) + + + + | Component | Value | Ref Range | + + + + | CULTURE RESULT | Pseudomonas aeruginosa (A) | | + + + + + + + | Specimen | Performing Laboratory | + + + | Blood - Blue port | [facility] [place] [id number] [place] [address] | | lumen | [id number] | + + + + + | Narrative | + + | Culture Report: Pseudomonas aeruginosa Growth in Aerobic bottle | + + + + + + + | Organism | Antibiotic | Method | Susceptibility | + + + + + | Pseudomonas | Cefepime | SUSCEPTIBILITY-CORTEZ | Sensitive | | aeruginosa | | | | + + + + + | Pseudomonas | Ceftazidime | SUSCEPTIBILITY-CORTEZ | Sensitive | | aeruginosa | | | | + + + + + | Pseudomonas | Ciprofloxacin | SUSCEPTIBILITY-CORTEZ | Resistant | | aeruginosa | | | | + + + + + | Pseudomonas | Gentamicin | SUSCEPTIBILITY-CORTEZ | Sensitive | | aeruginosa | | | | + + + + + | Pseudomonas | Meropenem | SUSCEPTIBILITY-CORTEZ | Resistant | | aeruginosa | | | | + + + + + | Pseudomonas | Piperacillin/Tazobac | SUSCEPTIBILITY-CORTEZ | Sensitive | | aeruginosa | mas | | | + + + + + | Pseudomonas | Tobramycin | SUSCEPTIBILITY-CORTEZ | Sensitive | | aeruginosa | | | | + + + + + CULTURE, BLOOD BACTI & YEAST [place] (07/20/2017 7:35 PM) + + + + | Component | Value | Ref Range | + + + + | CULTURE RESULT | Pseudomonas aeruginosa (AA) | | + + + + | GRAM STAIN | Gram negative bacilli | | + + + + + + + | Specimen | Performing Laboratory | + + + | Blood - Blue port | [facility], CORE [address] | | lumen | [place] [address] | + + + + + | Narrative | + + | Growth in Aerobic Bottle. Organism Identified by Molecular ID, to be confirmed by | | culture. | + + CULTURE, BLOOD BACTI & YEAST (07/20/2017 7:35 PM) + + + | Specimen | Performing Laboratory | + + + | Blood | | + + + + + | Narrative | + + | The following orders were created for panel order CULTURE, BLOOD BACTI & YEAST. | | Procedure | | Abnormality Status | | --------- | | ------ BLOOD CULTURE | | WORKUP[[id number]] Abnormal Final | | result CULTURE, BLOOD BACTI & | | Y...[[id number]] Abnormal Final result | | Please view results for these tests on the individual orders. | + + PRODUCT - PLATELET PHERESIS LEUKOREDUCED (07/20/2017 12:15 AM) + + + + | Component | Value | Ref Range | + + + + | PRODUCT DESCRIPTION | PLATELETS PHERESIS, LEUKOCYTE REDUCED, | | | | IRRADIATED | | + + + + | PRODUCT UNIT # | [id number] | | + + + + | UNIT ABO | O | | + + + + | UNIT RH | POS | | + + + + | STATUS OF UNIT | Presumed Transfused | | + + + + | EXPIRATION DATE | [id number] | | + + + + | BLOOD TYPE BARCODE | 5100 | | + + + + | BLOOD PRODUCT CODE | [id number] | | + + + + + + + | Specimen | Performing Laboratory | + + + | | [facility], TRANSFUSION MEDICINE [address] [facility] | | | [address] [facility] [address] | + + + CBC AND AUTO DIFF (07/19/2017 11:05 PM) + + + + | Component [...] + + + + | MCV | 80.5 | 80.0 - 96.0 fL | + + + + | MCHC | 36.0 | 33.0 - 35.5 g/dL | + + + + | RDW SD | 35.8 | 35.1 - 46.3 fL | + + + + | PLATELET COUNT | 10 (LL) | 150 - 400 K/cu mm | + + + + | MPV | 11.3 | 9.7 - 12.3 fL | + [...] | | + + + + | IG% | Comment: WBC <300; differential not | 0.0 - 1.0 % | | | performed. | | [...] | | + + + + | IG# | Comment: WBC <300; differential not | 0.00 - 0.10 K/cu mm | | | performed. | | + + + + + + + | Specimen | Performing Laboratory | + + + | Blood | [facility], CORE [address] [address] | | | [place] [address] | + + + INR (07/19/2017 11:05 PM) + +-------+ + | Component | Value | Ref Range | + +-------+ + | INR | 1.08 | 0.90 - 1.20 INR | + +-------+ + + + + | Specimen | Performing Laboratory | + + + | Blood | [facility], CORE [address] | | | [place] [address] | + + + + + | Narrative | + + | INR Therapeutic ranges for full anticoagulation: INR for Venous | | Thromboembolism (2.0 - 3.0) INR INR for most patients with | | mech. valves (2.5 - 3.5) INR | + + PHOSPHORUS, PLASMA (07/19/2017 11:05 PM) + +-------+ + | Component | Value | Ref Range | + +-------+ + | PHOSPHORUS, PLASMA | 3.7 | 2.4 - 4.7 mg/dL | | (LAB) | | | + +-------+ + + + + | Specimen | Performing Laboratory | + + + | Blood | [facility], CORE [address] [place] [address] | | | [place] [address] | + + + MAGNESIUM, PLASMA (07/19/2017 11:05 PM) + +-------+ + | Component | Value | Ref Range | + +-------+ + | MAGNESIUM,PLASMA | 2.3 | 1.6 - 2.6 mg/dL | + +-------+ + + + + | Specimen | Performing Laboratory | + + + | Blood | [facility], CORE [address] | | | [place] [address] | + + + + + | Narrative | + + | Reference range change effective 12/11/16. | + + CBC, WITH DIFFERENTIAL (07/19/2017 11:05 PM) + + + | Specimen | Performing Laboratory | + + + | Blood | | + + + + + | Narrative | + + | The following orders were created for panel order CBC, WITH DIFFERENTIAL. | | Procedure | | Abnormality Status | | --------- | | ------ CBC AND AUTO | | DIFF[[id number]] Abnormal Final | | result Please view results for these tests on the | | individual orders. | + + COMPLETE METABOLIC SET (NA,K,CL,CO2,BUN,CREAT,GLUC,CA,AST,ALT,BILI TOTAL,ALK PHOS,ALB,PROT TOTAL) (07/19/2017 11:05 PM) + + + + | Component | Value | Ref Range | + + + + | GLUCOSE, PLASMA | 121 (H) | 70 - 99 mg/dL | | (LAB) | | | + + + + | BUN, PLASMA (LAB) | 13 | 6 - 20 mg/dL | + + + + | CREATININE PLASMA | 0.49 (L) | 0.60 - 1.10 mg/dL | | (LAB) | | | + + + + | EGFR - | >60 | >60 mL/min | | JORDANIAN | | | + + + + | EGFR NON | >60 | >60 mL/min | | -JORDANIAN | | | + + + + [...] + + + | CALCIUM, PLASMA | 8.7 | [...] + + + | ALK PHOS | 194 (H) | 42 - 98 U/L | + + + + | AST(SGOT) | 23 | <=41 U/L | + + + + | ALT (SGPT) | 29 | <=60 U/L | + + + + | ANION GAP | 7 | 4 - 11 mmol/L | + + + + | [...] | + + + | Blood | [facility], CORE [address] | | | [place] [address] | + + + + + | [...] changing kidney function | + + CBC AND AUTO DIFF (07/18/2017 11:05 PM) + + + + | Component | Value | Ref Range | + + + + | WHITE CELL COUNT | <0.10 (L) | 3.50 - 10.80 K/cu mm | + + + + | RED CELL COUNT | 2.85 (L) | 4.00 - 5.20 M/cu mm | + + + + | HEMOGLOBIN | 8.3 (L) | 12.0 - 16.0 g/dL | + + + + | HEMATOCRIT | 23.5 (L) | 36.0 - 46.0 % | + + + + | MCV | 82.5 | 80.0 - 96.0 fL | + + + + | MCHC | 35.3 | 33.0 - 35.5 g/dL | + + + + | RDW SD | 37.7 | 35.1 - 46.3 fL | + + + + | PLATELET COUNT | 18 (L) | 150 - 400 K/cu mm | + + + + | MPV | 10.5 | 9.7 - 12.3 fL | + [...] | | + + + + | IG% | Comment: WBC <300; differential not | 0.0 - 1.0 % | | | performed. | | [...] | | + + + + | IG# | Comment: WBC <300; differential not | 0.00 - 0.10 K/cu mm | | | performed. | | + + + + + + + | Specimen | Performing Laboratory | + + + | Blood | [facility], CORE [address] | | | [place] [address] | + + + INR (07/18/2017 11:05 PM) + +-------+ + | Component | Value | Ref Range | + +-------+ + | INR | 1.10 | 0.90 - 1.20 INR | + +-------+ + + + + | Specimen | Performing Laboratory | + + + | Blood | [facility], CORE [address] | | | [place] [address] | + + + + + | Narrative | + + | INR Therapeutic ranges for full anticoagulation: INR for Venous | | Thromboembolism (2.0 - 3.0) INR INR for most patients with | | mech. valves (2.5 - 3.5) INR | + + PHOSPHORUS, PLASMA (07/18/2017 11:05 PM) + +-------+ + | Component | Value | Ref Range | + +-------+ + | PHOSPHORUS, PLASMA | 3.3 | 2.4 - 4.7 mg/dL | | (LAB) | | | + +-------+ + + + + | Specimen | Performing Laboratory | + + + | Blood | [facility], CORE [address] | | | [place] [address] | + + + MAGNESIUM, PLASMA (07/18/2017 11:05 PM) + +-------+ + | Component | Value | Ref Range | + +-------+ + | MAGNESIUM,PLASMA | 1.6 | 1.6 - 2.6 mg/dL | + +-------+ + + + + | Specimen | Performing Laboratory | + + + | Blood | [facility], CORE [address] | | | [place] [address] | + + + + + | Narrative | + + | Reference range change effective 12/11/16. | + + CBC, WITH DIFFERENTIAL (07/18/2017 11:05 PM) + + + | Specimen | Performing Laboratory | + + + | Blood | | + + + + + | Narrative | + + | The following orders were created for panel order CBC, WITH DIFFERENTIAL. | | Procedure | | Abnormality Status | | --------- | | ------ CBC AND AUTO | | DIFF[[id number]] Abnormal Final | | result Please view results for these tests on the | | individual orders. | + + COMPLETE METABOLIC SET (NA,K,CL,CO2,BUN,CREAT,GLUC,CA,AST,ALT,BILI TOTAL,ALK PHOS,ALB,PROT TOTAL) (07/18/2017 11:05 PM) + + + + | Component | Value | Ref Range | + + + + | GLUCOSE, PLASMA | 95 | 70 - 99 mg/dL | | (LAB) | | | + + + + | BUN, PLASMA (LAB) | 13 | 6 - 20 mg/dL | + + + + | CREATININE PLASMA | 0.57 (L) | 0.60 - 1.10 mg/dL | | (LAB) | | | + + + + | EGFR - | >60 | >60 mL/min | | JORDANIAN | | | + + + + | EGFR NON | >60 | >60 mL/min | | -JORDANIAN | | | + + + + [...] + + + | CALCIUM, PLASMA | 9.1 | 8.6 - 10.2 mg/dL | | (LAB) | | | + + + + | CALCIUM(ALB | 9.8 | 8.6 - 10.2 mg/dL | | CORRECTED) | | | + + + + | BILIRUBIN TOTAL | 0.9 | 0.3 - 1.2 mg/dL | + + + + | TOTAL PROTEIN, | 6.3 (L) | 6.4 - 8.2 g/dL | | PLASMA (LAB) | | | + + + + | ALBUMIN, PLASMA | 3.1 (L) | 3.5 - 4.7 g/dL | | (LAB) | | | + + + + | ALK PHOS | 199 (H) | 42 - 98 U/L | + + + + | AST(SGOT) | 19 | <=41 U/L | + + + + | ALT (SGPT) | 28 | <=60 U/L | + + + + | ANION GAP | 10 | 4 - 11 mmol/L | + + + + | [...] | + + + | Blood | [facility], CORE [address] [facility] [address] | | | [place] [address] | + + + + + | [...] + + PRODUCT - PLATELET PHERESIS LEUKOREDUCED (07/18/2017 12:50 AM) + + + + | Component | Value | Ref Range | + + + + | PRODUCT DESCRIPTION | APHERESIS | | | | PLATELETS,PAS,LEUKOREDUCED,IRRADIATED | | + + + + | PRODUCT UNIT # | [id number] | | + + + + | UNIT ABO | O | | + + + + | UNIT RH | POS | | + + + + | STATUS OF UNIT | Presumed Transfused | | + + + + | EXPIRATION DATE | [id number] | | + + + + | BLOOD TYPE BARCODE | 5100 | | + + + + | BLOOD PRODUCT CODE | [id number] | | + + + + + + + | Specimen | Performing Laboratory | + + + | | [facility], TRANSFUSION MEDICINE [address] [facility] | | | [place] [address] | + + + PRODUCT - RED CELLS LEUKOREDUCED (07/18/2017 12:50 AM) + + + + | Component | Value | Ref Range | + + + + | PRODUCT DESCRIPTION | -1 RED BLOOD CELLS ADENINE-SALINE ADDED | | | | LEUKOCYT | | + + + + | PRODUCT UNIT # | [id number] | | + + + + | UNIT ABO | O | | + + + + | UNIT RH | POS | | + + + + | STATUS OF UNIT | Presumed Transfused | | + + + + | EXPIRATION DATE | [id number] | | + + + + | BLOOD TYPE BARCODE | 5100 | | + + + + | BLOOD PRODUCT CODE | [id number] | | + + + + + + + | Specimen | Performing Laboratory | + + + | | [facility], TRANSFUSION MEDICINE [address] | | | [place] [address] | + + + FIBRINOGEN (07/17/2017 11:47 PM) + +---------+ + | Component | Value | Ref Range | + +---------+ + | FIBRINOGEN LEVEL | 478 (H) | 200 - 450 mg/dL | + +---------+ + + + + | Specimen | Performing Laboratory | + + + | Blood | [facility], CORE [address] | | | [place] [address] | + + + APTT (ACT. PART. THROMBO TIME) (07/17/2017 11:47 PM) + + + + | Component | Value | Ref Range | + + + + | APTT | 37.5 (H) | 26.0 - 36.0 seconds | + + + + + + + | Specimen | Performing Laboratory | + + + | Blood | [facility], CORE [address] | | | [place] [address] | + + + + + | Narrative | + + | APTT Therapeutic Range: (75 - 120) sec | | Heparin levels of 0.35 - 0.7 U/mL | + + LDH TOTAL, PLASMA (07/17/2017 11:47 PM) + +---------+ + | Component | Value | Ref Range | + +---------+ + | LD TOTAL, PLASMA | 251 (H) | <=250 U/L | + +---------+ + + + + | Specimen | Performing Laboratory | + + + | Blood | [facility], CORE [address] [place] [address] | | | [place], [place] [address] | + + + URIC ACID, PLASMA (07/17/2017 11:47 PM) + +---------+ + | Component | Value | Ref Range | + +---------+ + | URIC ACID, PLASMA | 2.2 (L) | 2.5 - 6.2 mg/dL | | (LAB) | | | + +---------+ + + + + | Specimen | Performing Laboratory | + + + | Blood | [facility], CORE [address] | | | [place] [address] | + + + CBC AND AUTO DIFF (07/17/2017 11:47 PM) + + + + | Component [...] + + + + | HEMATOCRIT | 20.7 (L) | 36.0 - 46.0 % | + + + + | MCV | 82.1 | 80.0 - 96.0 fL | + + + + | MCHC | 35.3 | 33.0 - 35.5 g/dL | + + + + | RDW SD | 37.6 | 35.1 - 46.3 fL | + + + + | PLATELET COUNT | 10 (LL) | 150 - 400 K/cu mm [...] | | + + + + | IG% | Comment: WBC <300; differential not | 0.0 - 1.0 % | | | performed. | | [...] | | + + + + | IG# | Comment: WBC <300; differential not | 0.00 - 0.10 K/cu mm | | | performed. | | + + + + + + + | Specimen | Performing Laboratory | + + + | Blood | [facility], CORE [address] | | | [place] [address] | + + + INR (07/17/2017 11:47 PM) + +-------+ + | Component | Value | Ref Range | + +-------+ + | INR | 1.10 | 0.90 - 1.20 INR | + +-------+ + + + + | Specimen | Performing Laboratory | + + + | Blood | [facility], CORE [address] | | | [place] [address] | + + + + + | Narrative | + + | INR Therapeutic ranges for full anticoagulation: INR for Venous | | Thromboembolism (2.0 - 3.0) INR INR for most patients with | | mech. valves (2.5 - 3.5) INR | + + PHOSPHORUS, PLASMA (07/17/2017 11:47 PM) + +-------+ + | Component | Value | Ref Range | + +-------+ + | PHOSPHORUS, PLASMA | 3.3 | 2.4 - 4.7 mg/dL | | (LAB) | | | + +-------+ + + + + | Specimen | Performing Laboratory | + + + | Blood | [facility], CORE [address] | | | [place] [address] | + + + MAGNESIUM, PLASMA (07/17/2017 11:47 PM) + +-------+ + | Component | Value | Ref Range | + +-------+ + | MAGNESIUM,PLASMA | 1.7 | 1.6 - 2.6 mg/dL | + +-------+ + + + + | Specimen | Performing Laboratory | + + + | Blood | [facility], CORE [address] | | | [place] [address] | + + + + + | Narrative | + + | Reference range change effective 12/11/16. | + + CBC, WITH DIFFERENTIAL (07/17/2017 11:47 PM) + + + | Specimen | Performing Laboratory | + + + | Blood | | + + + + + | Narrative | + + | The following orders were created for panel order CBC, WITH DIFFERENTIAL. | | Procedure | | Abnormality Status | | --------- | | ------ CBC AND AUTO | | DIFF[[id number]] Abnormal Final | | result Please view results for these tests on the | | individual orders. | + + COMPLETE METABOLIC SET (NA,K,CL,CO2,BUN,CREAT,GLUC,CA,AST,ALT,BILI TOTAL,ALK PHOS,ALB,PROT TOTAL) (07/17/2017 11:47 PM) + + + + | Component [...] | >60 | >60 mL/min | | JORDANIAN | | | + + + + | EGFR NON | >60 | >60 mL/min | | -JORDANIAN | | | + + + + [...] + + + + | CALCIUM(ALB | 9.7 | 8.6 [...] + + + | ALK PHOS | 195 (H) | 42 - 98 U/L | + + + + | AST(SGOT) | 16 | <=41 U/L | + + + + | ALT (SGPT) | 28 | <=60 U/L | + + + + | ANION GAP | 10 | 4 - 11 mmol/L | + + + + | [...] | + + + | Blood | [facility], CORE [address] | | | [place] [address] | + + + + + | [...] kidney function | + + ANTIBODY SCREEN (07/17/2017 11:45 PM) + + + + | Component | Value | Ref Range | + + + + | Antibody Screen | Negative | | + + + + + + + | Specimen | Performing Laboratory | + + + | Blood | [facility], TRANSFUSION MEDICINE [address] [facility] | | | [place] [address] | + + + ABO & RH TYPE (07/17/2017 11:45 PM) + + + + | Component | Value | Ref Range | + + + + | ABO Group | O | | + + + + | Rh Type | Positive | | + + + + + + + | Specimen | Performing Laboratory | + + + | Blood | [facility], TRANSFUSION MEDICINE [address] [place] [address] | | | [place] [address] | + + + TYPE AND SCREEN (07/17/2017 11:45 PM) + + + | Specimen | Performing Laboratory | + + + | Blood | | + + + + + | Narrative | + + | The following orders were created for panel order TYPE AND SCREEN. | | Procedure | | Abnormality Status | | --------- | | ------ ABO & RH | | TYPE[[id number]] F | | inal result ANTIBODY | | SCREEN[[id number]] Fin | | al result Please view results for these tests on the | | individual orders. | + + CBC AND AUTO DIFF (07/16/2017 11:48 PM) + + + + | Component [...] + + + + | MCV | 83.2 | 80.0 - 96.0 fL | + + + + | MCHC | 35.2 | 33.0 - 35.5 g/dL | + + + + | RDW SD | 39.2 | 35.1 - 46.3 fL | + + + + | PLATELET COUNT | 18 (L) | 150 - 400 K/cu mm | + + + + | MPV | 11.3 | 9.7 - 12.3 fL | + [...] | | + + + + | IG% | Comment: WBC <300; differential not | 0.0 - 1.0 % | | | performed. | | [...] | | + + + + | IG# | Comment: WBC <300; differential not | 0.00 - 0.10 K/cu mm | | | performed. | | + + + + + + + | Specimen | Performing Laboratory | + + + | Blood | [facility], [address] [address] | | | [place] [address] | + + + INR (07/16/2017 11:48 PM) + +-------+ + | Component | Value | Ref Range | + +-------+ + | INR | 1.09 | 0.90 - 1.20 INR | + +-------+ + + + + | Specimen | Performing Laboratory | + + + | Blood | [facility], [address] | | | [place] [address] | + + + + + | Narrative | + + | INR Therapeutic ranges for full anticoagulation: INR for Venous | | Thromboembolism (2.0 - 3.0) INR INR for most patients with | | mech. valves (2.5 - 3.5) INR | + + PHOSPHORUS, PLASMA (07/16/2017 11:48 PM) + +-------+ + | Component | Value | Ref Range | + +-------+ + | PHOSPHORUS, PLASMA | 3.3 | 2.4 - 4.7 mg/dL | | (LAB) | | | + +-------+ + + + + | Specimen | Performing Laboratory | + + + | Blood | [facility], [address] [place] [address] | | | [place] [address] | + + + MAGNESIUM, PLASMA (07/16/2017 11:48 PM) + +-------+ + | Component | Value | Ref Range | + +-------+ + | MAGNESIUM,PLASMA | 1.7 | 1.6 - 2.6 mg/dL | + +-------+ + + + + | Specimen | Performing Laboratory | + + + | Blood | [facility], [address] [address] [place] [address] | | | [place] [address] | + + + + + | Narrative | + + | Reference range change effective 12/11/16. | + + CBC, WITH DIFFERENTIAL (07/16/2017 11:48 PM) + + + | Specimen | Performing Laboratory | + + + | Blood | | + + + + + | Narrative | + + | The following orders were created for panel order CBC, WITH DIFFERENTIAL. | | Procedure | | Abnormality Status | | --------- | | ------ CBC AND AUTO | | DIFF[[id number]] Abnormal Final | | result Please view results for these tests on the | | individual orders. | + + COMPLETE METABOLIC SET (NA,K,CL,CO2,BUN,CREAT,GLUC,CA,AST,ALT,BILI TOTAL,ALK PHOS,ALB,PROT TOTAL) (07/16/2017 11:48 PM) + + + + | Component [...] | >60 | >60 mL/min | | JORDANIAN | | | + + + + | EGFR NON | >60 | >60 mL/min | | -JORDANIAN | | | + + + + | SODIUM, PLASMA (LAB) | 142 | 136 - 145 mmol/L | + + + + | POTASSIUM, PLASMA | 3.2 (L) | 3.4 - 5.0 mmol/L | [...] + + + | ALK PHOS | 196 (H) | 42 - 98 U/L | + + + + | AST(SGOT) | 16 | <=41 U/L | + + + + | ALT (SGPT) | 31 | <=60 U/L | + + + + | ANION GAP | 10 | 4 - 11 mmol/L | + + + + | [...] | + + + | Blood | [facility], [facility] [address] | | | [place] [address] | + + + + + | [...] Rapidly changing kidney function | + + POTASSIUM, PLASMA (07/16/2017 6:26 PM) + +---------+ + | Component | Value | Ref Range | + +---------+ + | POTASSIUM, PLASMA | 3.2 (L) | 3.4 - 5.0 mmol/L | | (LAB) | | | + +---------+ + | POTASSIUM CMNT | No Hemo | | + +---------+ + + + + | Specimen | Performing Laboratory | + + + | Blood | [facility], [place] [address] [place] [address] [address] | | | [place] [address] | + + + CBC AND AUTO DIFF (07/15/2017 11:51 PM) + + + + | Component | Value | Ref Range | + + + + | WHITE CELL COUNT | <0.10 (L) | 3.50 - 10.80 K/cu mm | + + + + | RED CELL COUNT | 2.67 (L) | 4.00 - 5.20 M/cu mm | + + + + | HEMOGLOBIN | 8.0 (L) | 12.0 - 16.0 g/dL | + + + + | HEMATOCRIT | 22.2 (L) | 36.0 - 46.0 % | + + + + | MCV | 83.1 | 80.0 - 96.0 fL | + + + + | MCHC | 36.0 | 33.0 - 35.5 g/dL | + + + + | RDW SD | 40.1 | 35.1 - 46.3 fL | + [...] | | + + + + | IG% | Comment: WBC <300; differential not | 0.0 - 1.0 % | | | performed. | | [...] | | + + + + | IG# | Comment: WBC <300; differential not | 0.00 - 0.10 K/cu mm | | | performed. | | + + + + + + + | Specimen | Performing Laboratory | + + + | Blood | [facility], [facility] [address] | | | [place] [address] | + + + INR (07/15/2017 11:51 PM) + +-------+ + | Component | Value | Ref Range | + +-------+ + | INR | 1.05 | 0.90 - 1.20 INR | + +-------+ + + + + | Specimen | Performing Laboratory | + + + | Blood | [facility], [facility] [address] | | | [place] [address] | + + + + + | Narrative | + + | INR Therapeutic ranges for full anticoagulation: INR for Venous | | Thromboembolism (2.0 - 3.0) INR INR for most patients with | | mech. valves (2.5 - 3.5) INR | + + PHOSPHORUS, PLASMA (07/15/2017 11:51 PM) + +-------+ + | Component | Value | Ref Range | + +-------+ + | PHOSPHORUS, PLASMA | 3.0 | 2.4 - 4.7 mg/dL | | (LAB) | | | + +-------+ + + + + | Specimen | Performing Laboratory | + + + | Blood | [facility], [facility]ORE [address] | | | [place] [address] | + + + MAGNESIUM, PLASMA (07/15/2017 11:51 PM) + +-------+ + | Component | Value | Ref Range | + +-------+ + | MAGNESIUM,PLASMA | 1.7 | 1.6 - 2.6 mg/dL | + +-------+ + + + + | Specimen | Performing Laboratory | + + + | Blood | [facility], [facility] [address] | | | [place] [address] | + + + + + | Narrative | + + | Reference range change effective 12/11/16. | + + CBC, WITH DIFFERENTIAL (07/15/2017 11:51 PM) + + + | Specimen | Performing Laboratory | + + + | Blood | | + + + + + | Narrative | + + | The following orders were created for panel order CBC, WITH DIFFERENTIAL. | | Procedure | | Abnormality Status | | --------- | | ------ CBC AND AUTO | | DIFF[[id number]] Abnormal Final | | result Please view results for these tests on the | | individual orders. | + + COMPLETE METABOLIC SET (NA,K,CL,CO2,BUN,CREAT,GLUC,CA,AST,ALT,BILI TOTAL,ALK PHOS,ALB,PROT TOTAL) (07/15/2017 11:51 PM) + + + + | Component | Value | Ref Range | + + + + | GLUCOSE, PLASMA | 93 | 70 - 99 mg/dL | | (LAB) | | | + + + + | BUN, PLASMA (LAB) | 5 (L) | 6 - 20 mg/dL | + + + + | CREATININE PLASMA | 0.47 (L) | 0.60 - 1.10 mg/dL | | (LAB) | | | + + + + | EGFR - | >60 | >60 mL/min | | JORDANIAN | | | + + + + | EGFR NON | >60 | >60 mL/min | | -JORDANIAN | | | + + + + | SODIUM, PLASMA (LAB) | 142 | 136 - 145 mmol/L | + + + + | POTASSIUM, PLASMA | 2.9 (L) | 3.4 - 5.0 mmol/L | | (LAB) | | | + + + + | CHLORIDE, PLASMA | 105 | 97 - 108 mmol/L | | (LAB) | | | + + + + | TOTAL CO2, PLASMA | 27 | 21 - 32 mmol/L | | (LAB) | | | + + + + | CALCIUM, PLASMA | 8.7 | 8.6 - 10.2 mg/dL | | (LAB) | | | + + + + | CALCIUM(ALB | 9.7 | 8.6 - 10.2 mg/dL | | CORRECTED) | | | + + + + | BILIRUBIN TOTAL | 1.1 | 0.3 - 1.2 mg/dL | + + + + | TOTAL PROTEIN, | 6.0 (L) | 6.4 - 8.2 g/dL | | PLASMA (LAB) | | | + + + + | ALBUMIN, PLASMA | 2.8 (L) | 3.5 - 4.7 g/dL | | (LAB) | | | + + + + | ALK PHOS | 203 (H) | 42 - 98 U/L | + + + + | AST(SGOT) | 19 | <=41 U/L | + + + + | ALT (SGPT) | 34 | <=60 U/L | + + + + | ANION GAP | 10 | 4 - 11 mmol/L | + + + + | ANION GAP(ALB | 13 (H) | 4 - 11 mmol/L | [...] | + + + | Blood | [facility], CORE [address] | | | [place] [address] | + + + + + | [...] | + + VRE (FRANCISCO) BY PCR (07/15/2017 5:23 PM) + + + + | Component | Value | Ref Range | + + + + | VRE BY PCR | Negative for van A gene | Negative for van A | | | | gene | + + + + + + + | Specimen | Performing Laboratory | + + + | Swab - Rectum | [facility], [facility] [address] [facility] | | | [place] [address] | + + + PRODUCT - RED CELLS LEUKOREDUCED (07/15/2017 1:12 AM) + + + + | Component | Value | Ref Range | + + + + | PRODUCT DESCRIPTION | -1 RED BLOOD CELLS ADENINE-SALINE ADDED | | | | LEUKOCYT | | + + + + | PRODUCT UNIT # | [id number] | | + + + + | UNIT ABO | O | | + + + + | UNIT RH | POS | | + + + + | STATUS OF UNIT | Presumed Transfused | | + + + + | EXPIRATION DATE | [id number] | | + + + + | BLOOD TYPE BARCODE | 5100 | | + + + + | BLOOD PRODUCT CODE | [id number] | | + + + + + + + | Specimen | Performing Laboratory | + + + | | [facility]SF[facility]ION MEDICINE [address] [facility] | | | [place] [address] | + + + PRODUCT - PLATELET PHERESIS LEUKOREDUCED (07/15/2017 1:12 AM) + + + + | Component | Value | Ref Range | + + + + | PRODUCT DESCRIPTION | PLATELETS PHERESIS, LEUKOCYTE REDUCED, | | | | IRRADIATED | | + + + + | PRODUCT UNIT # | [id number] | | + + + + | UNIT ABO | O | | + + + + | UNIT RH | POS | | + + + + | STATUS OF UNIT | Presumed Transfused | | + + + + | EXPIRATION DATE | [id number] | | + + + + | BLOOD TYPE BARCODE | 5100 | | + + + + | BLOOD PRODUCT CODE | [id number] | | + + + + + + + | Specimen | Performing Laboratory | + + + | | [facility]IC[facility] [address] [facility] | | | [place] [address] | + + + COAGULOPATHY PANEL (INR,APTT,FIBRINOGEN) (07/15/2017) + +---------+ + | Component | Value | Ref Range | + +---------+ + | INR | 1.11 | 0.90 - 1.20 INR | + +---------+ + | APTT | 35.8 | 26.0 - 36.0 seconds | + +---------+ + | FIBRINOGEN LEVEL | 503 (H) | 200 - 450 mg/dL | + +---------+ + + + + | Specimen | Performing Laboratory | + + + | Blood | [facility], CORE [address] [facility] | | | [place] [address] | + + + + + | Narrative | + + | INR Therapeutic ranges for full anticoagulation: INR for Venous | | Thromboembolism (2.0 - 3.0) INR INR for most patients with | | mech. valves (2.5 - 3.5) INR APTT Therapeutic | | Range: (75 - 120) sec Heparin levels | | of 0.35 - 0.7 U/mL | + + LDH TOTAL, PLASMA (07/15/2017) + +---------+ + | Component | Value | Ref Range | + +---------+ + | LD TOTAL, PLASMA | 295 (H) | <=250 U/L | + +---------+ + | LD CMNT | No Hemo | | + +---------+ + + + + | Specimen | Performing Laboratory | + + + | Blood | [facility], CORE [address] | | | [place] [address] | + + + URIC ACID, PLASMA (07/15/2017) + +---------+ + | Component | Value | Ref Range | + +---------+ + | URIC ACID, PLASMA | 1.3 (L) | 2.5 - 6.2 mg/dL | | (LAB) | | | + +---------+ + + + + | Specimen | Performing Laboratory | + + + | Blood | [facility], [address] [address] | | | [place] [address] | + + + CBC AND AUTO DIFF (07/15/2017) + + + + | Component | [...] + + + + | HEMATOCRIT | 20.5 (L) | 36.0 - 46.0 % | + + + + | MCV | 84.0 | 80.0 - 96.0 fL | + + + + | MCHC | 35.6 | 33.0 - 35.5 g/dL | + + + + | RDW SD | 39.8 | 35.1 - 46.3 fL | + + + + | PLATELET COUNT | 4 (LL) | 150 - 400 K/cu mm | + + + + | MPV | 7.6 (L) | 9.7 - 12.3 fL | [...] | | + + + + | IG% | Comment: WBC <300; differential not | 0.0 - 1.0 % | | | performed. | | [...] | | + + + + | IG# | Comment: WBC <300; differential not | 0.00 - 0.10 K/cu mm | | | performed. | | + + + + + + + | Specimen | Performing Laboratory | + + + | Blood | [facility], [facility] [address] [place] [address] | | | [place] [address] | + + + PHOSPHORUS, PLASMA (07/15/2017) + +-------+ + | Component | Value | Ref Range | + +-------+ + | PHOSPHORUS, PLASMA | 2.6 | 2.4 - 4.7 mg/dL | | (LAB) | | | + +-------+ + + + + | Specimen | Performing Laboratory | + + + | Blood | [facility], [address] [address] | | | [place] [address] | + + + MAGNESIUM, PLASMA (07/15/2017) + +-------+ + | Component | Value | Ref Range | + +-------+ + | MAGNESIUM,PLASMA | 1.8 | 1.6 - 2.6 mg/dL | + +-------+ + + + + | Specimen | Performing Laboratory | + + + | Blood | [facility], CORE [address] | | | [place] [address] | + + + + + | Narrative | + + | Reference range change effective 12/11/16. | + + CBC, WITH DIFFERENTIAL (07/15/2017) + + + | Specimen | Performing Laboratory | + + + | Blood | | + + + + + | Narrative | + + | The following orders were created for panel order CBC, WITH DIFFERENTIAL. | | Procedure | | Abnormality Status | | --------- | | ------ CBC AND AUTO | | DIFF[[id number]] Abnormal Final | | result Please view results for these tests on the | | individual orders. | + + COMPLETE METABOLIC SET (NA,K,CL,CO2,BUN,CREAT,GLUC,CA,AST,ALT,BILI TOTAL,ALK PHOS,ALB,PROT TOTAL) (07/15/2017) + + + + | Component | Value | Ref Range | + + + + | GLUCOSE, PLASMA | 88 | 70 - 99 mg/dL | | (LAB) | | | + + + + | BUN, PLASMA (LAB) | 4 (L) | 6 - 20 mg/dL | + + + + | CREATININE PLASMA | 0.40 (L) | 0.60 - 1.10 mg/dL | | (LAB) | | | + + + + | EGFR - | >60 | >60 mL/min | | JORDANIAN | | | + + + + | EGFR NON | >60 | >60 mL/min | | -JORDANIAN | | | + + + + | SODIUM, PLASMA (LAB) | 142 | 136 - 145 mmol/L | + + + + | POTASSIUM, PLASMA | 3.0 (L) | 3.4 - 5.0 mmol/L | [...] + + + | BILIRUBIN TOTAL | 1.1 | 0.3 - 1.2 mg/dL | + + + + | TOTAL PROTEIN, | 5.7 (L) | 6.4 - 8.2 g/dL | | PLASMA (LAB) | | | + + + + | ALBUMIN, PLASMA | 2.7 (L) | 3.5 - 4.7 g/dL | | (LAB) | | | + + + + | ALK PHOS | 219 (H) | 42 - 98 U/L | + + + + | AST(SGOT) | 20 | <=41 U/L | + + + + | ALT (SGPT) | 41 | <=60 U/L | + + + + | ANION GAP | 10 | 4 - 11 mmol/L | + + + + | ANION GAP(ALB | 13 (H) | 4 - 11 mmol/L | [...] | + + + | Blood | [facility], [address] [address] | | | [place] [address] | + + + + + | [...] changing kidney function | + + CBC AND AUTO DIFF (07/13/2017 11:30 PM) + + + + | Component | Value | Ref Range | + + + + | WHITE CELL COUNT | <0.10 (L) | 3.50 - 10.80 K/cu mm | + + + + | RED CELL COUNT | 2.60 (L) | 4.00 - 5.20 M/cu mm | + + + + | HEMOGLOBIN | 7.7 (L) | 12.0 - 16.0 g/dL | + + + + | HEMATOCRIT | 22.0 (L) | 36.0 - 46.0 % | + + + + | MCV | 84.6 | 80.0 - 96.0 fL | + + + + | MCHC | 35.0 | 33.0 - 35.5 g/dL | + + + + | RDW SD | 40.7 | 35.1 - 46.3 fL | + [...] | | + + + + | IG% | Comment: WBC <300; differential not | 0.0 - 1.0 % | | | performed. | | [...] | | + + + + | IG# | Comment: WBC <300; differential not | 0.00 - 0.10 K/cu mm | | | performed. | | + + + + + + + | Specimen | Performing Laboratory | + + + | Blood | [facility], [address] [address] | | | [place] [address] | + + + INR (07/13/2017 11:30 PM) + +-------+ + | Component | Value | Ref Range | + +-------+ + | INR | 1.05 | 0.90 - 1.20 INR | + +-------+ + + + + | Specimen | Performing Laboratory | + + + | Blood | [facility], CORE [address] [place] [address] | | | [facility] [address] | + + + + + | Narrative | + + | INR Therapeutic ranges for full anticoagulation: INR for Venous | | Thromboembolism (2.0 - 3.0) INR INR for most patients with | | mech. valves (2.5 - 3.5) INR | + + PHOSPHORUS, PLASMA (07/13/2017 11:30 PM) + +-------+ + | Component | Value | Ref Range | + +-------+ + | PHOSPHORUS, PLASMA | 2.9 | 2.4 - 4.7 mg/dL | | (LAB) | | | + +-------+ + + + + | Specimen | Performing Laboratory | + + + | Blood | [facility], [address]ORE [address] | | | [place] [address] | + + + MAGNESIUM, PLASMA (07/13/2017 11:30 PM) + +-------+ + | Component | Value | Ref Range | + +-------+ + | MAGNESIUM,PLASMA | 1.8 | 1.6 - 2.6 mg/dL | + +-------+ + + + + | Specimen | Performing Laboratory | + + + | Blood | [facility], CORE [address] | | | [place] [address] | + + + + + | Narrative | + + | Reference range change effective 12/11/16. | + + CBC, WITH DIFFERENTIAL (07/13/2017 11:30 PM) + + + | Specimen | Performing Laboratory | + + + | Blood | | + + + + + | Narrative | + + | The following orders were created for panel order CBC, WITH DIFFERENTIAL. | | Procedure | | Abnormality Status | | --------- | | ------ CBC AND AUTO | | DIFF[[id number]] Abnormal Final | | result Please view results for these tests on the | | individual orders. | + + COMPLETE METABOLIC SET (NA,K,CL,CO2,BUN,CREAT,GLUC,CA,AST,ALT,BILI TOTAL,ALK PHOS,ALB,PROT TOTAL) (07/13/2017 11:30 PM) + + + + | Component | Value | Ref Range | + + + + | GLUCOSE, PLASMA | 82 | 70 - 99 mg/dL | | (LAB) | | | + + + + | BUN, PLASMA (LAB) | 6 | 6 - 20 mg/dL | + + + + | CREATININE PLASMA | 0.42 (L) | 0.60 - 1.10 mg/dL | | (LAB) | | | + + + + | EGFR - | >60 | >60 mL/min | | JORDANIAN | | | + + + + | EGFR NON | >60 | >60 mL/min | | -JORDANIAN | | | + + + + | SODIUM, PLASMA (LAB) | 140 | 136 - 145 mmol/L | + + + + | POTASSIUM, PLASMA | 3.2 (L) | 3.4 - 5.0 mmol/L | [...] + + + | BILIRUBIN TOTAL | 1.2 | 0.3 - 1.2 mg/dL | + + + + | TOTAL PROTEIN, | 5.5 (L) | 6.4 - 8.2 g/dL | | PLASMA (LAB) | | | + + + + | ALBUMIN, PLASMA | 2.6 (L) | 3.5 - 4.7 g/dL | | (LAB) | | | + + + + | ALK PHOS | 240 (H) | 42 - 98 U/L | + + + + | AST(SGOT) | 22 | <=41 U/L | + + + + | ALT (SGPT) | 45 | <=60 U/L | + + + + | ANION GAP | 6 | 4 - 11 mmol/L | + + + + | [...] | + + + | Blood | [facility], [address]ORE [address] | | | [place] [address] | + + + + + | [...] kidney function | + + ANTIBODY SCREEN (07/13/2017 12:17 AM) + + + + | Component | Value | Ref Range | + + + + | Antibody Screen | Negative | | + + + + + + + | Specimen | Performing Laboratory | + + + | Blood | [facility], TRANSFUSION MEDICINE [address] [place] [address] | | | [place] [address] | + + + ABO & RH TYPE (07/13/2017 12:17 AM) + + + + | Component | Value | Ref Range | + + + + | ABO Group | O | | + + + + | Rh Type | Positive | | + + + + + + + | Specimen | Performing Laboratory | + + + | Blood | [facility], TRANSF[facility]ION MEDICINE [address] [facility] | | | [place] [address] | + + + TYPE AND SCREEN (07/13/2017 12:17 AM) + + + | Specimen | Performing Laboratory | + + + | Blood | | + + + + + | Narrative | + + | The following orders were created for panel order TYPE AND SCREEN. | | Procedure | | Abnormality Status | | --------- | | ------ ABO & RH | | TYPE[[id number]] F | | inal result ANTIBODY | | SCREEN[[id number]] Fin | | al result Please view results for these tests on the | | individual orders. | + + PRODUCT - RED CELLS LEUKOREDUCED (07/13/2017 12:13 AM) + + + + | Component | Value | Ref Range | + + + + | PRODUCT DESCRIPTION | -3 RED BLOOD CELLS, ADENINE-SALINE ADDED, | | | | LEUKOC | | + + + + | PRODUCT UNIT # | [id number] | | + + + + | UNIT ABO | O | | + + + + | UNIT RH | POS | | + + + + | STATUS OF UNIT | Presumed Transfused | | + + + + | EXPIRATION DATE | [id number] | | + + + + | BLOOD TYPE BARCODE | 5100 | | + + + + | BLOOD PRODUCT CODE | [id number] | | + + + + + + + | Specimen | Performing Laboratory | + + + | | [facility], TRANSFUSION MEDICINE [address] [place] [address] | | | [place] [address] | + + + CBC AND AUTO DIFF (07/12/2017 11:31 PM) + + + + | Component | Value | Ref Range | + + + + | WHITE CELL COUNT | <0.10 (L) | 3.50 - 10.80 K/cu mm | + + + + | RED CELL COUNT | 2.29 (L) | 4.00 - 5.20 M/cu mm | + + + + | HEMOGLOBIN | 6.9 (L) | 12.0 - 16.0 g/dL | + + + + | HEMATOCRIT | 19.8 (L) | 36.0 - 46.0 % | + + + + | MCV | 86.5 | 80.0 - 96.0 fL | + + + + | MCHC | 34.8 | 33.0 - 35.5 g/dL | + + + + | RDW SD | 42.7 | 35.1 - 46.3 fL | + [...] | | + + + + | IG% | Comment: WBC <300; differential not | 0.0 - 1.0 % | | | performed. | | [...] | | + + + + | IG# | Comment: WBC <300; differential not | 0.00 - 0.10 K/cu mm | | | performed. | | + + + + + + + | Specimen | Performing Laboratory | + + + | Blood | [facility], CORE [address] | | | [place] [address] | + + + INR (07/12/2017 11:31 PM) + +-------+ + | Component | Value | Ref Range | + +-------+ + | INR | 1.05 | 0.90 - 1.20 INR | + +-------+ + + + + | Specimen | Performing Laboratory | + + + | Blood | [facility], CORE [address] | | | [place] [address] | + + + + + | Narrative | + + | INR Therapeutic ranges for full anticoagulation: INR for Venous | | Thromboembolism (2.0 - 3.0) INR INR for most patients with | | mech. valves (2.5 - 3.5) INR | + + PHOSPHORUS, PLASMA (07/12/2017 11:31 PM) + +-------+ + | Component | Value | Ref Range | + +-------+ + | PHOSPHORUS, PLASMA | 2.9 | 2.4 - 4.7 mg/dL | | (LAB) | | | + +-------+ + + + + | Specimen | Performing Laboratory | + + + | Blood | [facility], CORE [address] [place] [address] | | | [place] [address] | + + + MAGNESIUM, PLASMA (07/12/2017 11:31 PM) + +-------+ + | Component | Value | Ref Range | + +-------+ + | MAGNESIUM,PLASMA | 1.8 | 1.6 - 2.6 mg/dL | + +-------+ + + + + | Specimen | Performing Laboratory | + + + | Blood | [facility], CORE [address] | | | [place] [address] | + + + + + | Narrative | + + | Reference range change effective 12/11/16. | + + CBC, WITH DIFFERENTIAL (07/12/2017 11:31 PM) + + + | Specimen | Performing Laboratory | + + + | Blood | | + + + + + | Narrative | + + | The following orders were created for panel order CBC, WITH DIFFERENTIAL. | | Procedure | | Abnormality Status | | --------- | | ------ CBC AND AUTO | | DIFF[[id number]] Abnormal Final | | result Please view results for these tests on the | | individual orders. | + + COMPLETE METABOLIC SET (NA,K,CL,CO2,BUN,CREAT,GLUC,CA,AST,ALT,BILI TOTAL,ALK PHOS,ALB,PROT TOTAL) (07/12/2017 11:31 PM) + + + + | Component | Value | Ref Range | + + + + | GLUCOSE, PLASMA | 82 | 70 - 99 mg/dL | | (LAB) | | | + + + + | BUN, PLASMA (LAB) | 7 | 6 - 20 mg/dL | + + + + | CREATININE PLASMA | 0.48 (L) | 0.60 - 1.10 mg/dL | | (LAB) | | | + + + + | EGFR - | >60 | >60 mL/min | | JORDANIAN | | | + + + + | EGFR NON | >60 | >60 mL/min | | -JORDANIAN | | | + + + + [...] + + + | CALCIUM, PLASMA | 8.3 (L) | 8.6 - 10.2 mg/dL | | (LAB) | | | + + + + | CALCIUM(ALB | 9.4 | 8.6 - 10.2 mg/dL | | CORRECTED) | | | + + + + | BILIRUBIN TOTAL | 1.4 (H) | 0.3 - 1.2 mg/dL | + + + + | TOTAL PROTEIN, | 5.5 (L) | 6.4 - 8.2 g/dL | | PLASMA (LAB) | | | + + + + | ALBUMIN, PLASMA | 2.6 (L) | 3.5 - 4.7 g/dL | | (LAB) | | | + + + + | ALK PHOS | 237 (H) | 42 - 98 U/L | + + + + | AST(SGOT) | 22 | <=41 U/L | + + + + | ALT (SGPT) | 50 | <=60 U/L | + + + + | ANION GAP | 9 | 4 - 11 mmol/L | + + + + | [...] | + + + | Blood | [facility], [place] [address] | | | [place] [address] | + + + + + | [...] + + PRODUCT - PLATELET PHERESIS LEUKOREDUCED (07/12/2017 2:21 AM) + + + + | Component | Value | Ref Range | + + + + | PRODUCT DESCRIPTION | PLATELETS PHERESIS, LEUKOCYTE REDUCED, | | | | IRRADIATED | | + + + + | PRODUCT UNIT # | [id number] | | + + + + | UNIT ABO | A | | + + + + | UNIT RH | POS | | + + + + | STATUS OF UNIT | Presumed Transfused | | + + + + | EXPIRATION DATE | [id number] | | + + + + | BLOOD TYPE BARCODE | 6200 | | + + + + | BLOOD PRODUCT CODE | [id number] | | + + + + + + + | Specimen | Performing Laboratory | + + + | | [facility], [facility] [address] [facility] | | | [place] [address] | + + + CBC AND AUTO DIFF (07/12/2017 1:04 AM) + + + + | Component | Value | Ref Range | + + + + | WHITE CELL COUNT | <0.10 (L) | 3.50 - 10.80 K/cu mm | + + + + | RED CELL COUNT | 2.77 (L) | 4.00 - 5.20 M/cu mm | + + + + | HEMOGLOBIN | 8.1 (L) | 12.0 - 16.0 g/dL | + + + + | HEMATOCRIT | 23.5 (L) | 36.0 - 46.0 % | + + + + | MCV | 84.8 | 80.0 - 96.0 fL | + + + + | MCHC | 34.5 | 33.0 - 35.5 g/dL | + + + + | RDW SD | 43.5 | 35.1 - 46.3 fL | + + + + | PLATELET COUNT | 5 (LL) | 150 - 400 K/cu mm | + + + + | MPV | 7.0 (L) | 9.7 - 12.3 fL | [...] | | + + + + | IG% | Comment: WBC <300; differential not | 0.0 - 1.0 % | | | performed. | | [...] | | + + + + | IG# | Comment: WBC <300; differential not | 0.00 - 0.10 K/cu mm | | | performed. | | + + + + + + + | Specimen | Performing Laboratory | + + + | Blood | [facility], [facility] [address] | | | [place] [address] | + + + INR (07/12/2017 1:04 AM) + +-------+ + | Component | Value | Ref Range | + +-------+ + | INR | 1.04 | 0.90 - 1.20 INR | + +-------+ + + + + | Specimen | Performing Laboratory | + + + | Blood | [facility], [place] [address] | | | [place] [address] | + + + + + | Narrative | + + | INR Therapeutic ranges for full anticoagulation: INR for Venous | | Thromboembolism (2.0 - 3.0) INR INR for most patients with | | mech. valves (2.5 - 3.5) INR | + + LDH TOTAL, PLASMA (07/12/2017 1:04 AM) + +---------+ + | Component | Value | Ref Range | + +---------+ + | LD TOTAL, PLASMA | 356 (H) | <=250 U/L | + +---------+ + | LD CMNT | No Hemo | | + +---------+ + + + + | Specimen | Performing Laboratory | + + + | Blood | [facility], [place] [address] [place] [address] | | | [place] [address] | + + + URIC ACID, PLASMA (07/12/2017 1:04 AM) + +---------+ + | Component | Value | Ref Range | + +---------+ + | URIC ACID, PLASMA | 1.3 (L) | 2.5 - 6.2 mg/dL | | (LAB) | | | + +---------+ + + + + | Specimen | Performing Laboratory | + + + | Blood | [facility], [place] [address] | | | [place] [address] | + + + PHOSPHORUS, PLASMA (07/12/2017 1:04 AM) + +-------+ + | Component | Value | Ref Range | + +-------+ + | PHOSPHORUS, PLASMA | 3.1 | 2.4 - 4.7 mg/dL | | (LAB) | | | + +-------+ + + + + | Specimen | Performing Laboratory | + + + | Blood | [facility], [place] [address] | | | [place] [address] | + + + MAGNESIUM, PLASMA (07/12/2017 1:04 AM) + +-------+ + | Component | Value | Ref Range | + +-------+ + | MAGNESIUM,PLASMA | 2.0 | 1.6 - 2.6 mg/dL | + +-------+ + + + + | Specimen | Performing Laboratory | + + + | Blood | [facility], [place] [address] | | | [place], [place] [address] | + + + + + | Narrative | + + | Reference range change effective 12/11/16. | + + CBC, WITH DIFFERENTIAL (07/12/2017 1:04 AM) + + + | Specimen | Performing Laboratory | + + + | Blood | | + + + + + | Narrative | + + | The following orders were created for panel order CBC, WITH DIFFERENTIAL. | | Procedure | | Abnormality Status | | --------- | | ------ CBC AND AUTO | | DIFF[[id number]] Abnormal Final | | result Please view results for these tests on the | | individual orders. | + + COMPLETE METABOLIC SET (NA,K,CL,CO2,BUN,CREAT,GLUC,CA,AST,ALT,BILI TOTAL,ALK PHOS,ALB,PROT TOTAL) (07/12/2017 1:04 AM) + + + + | Component | Value | Ref Range | + + + + | GLUCOSE, PLASMA | 109 (H) [...] | >60 | >60 mL/min | | JORDANIAN | | | + + + + | EGFR NON | >60 | >60 mL/min | | -JORDANIAN | | | + + + + [...] + + + + | CALCIUM(ALB | 9.1 | 8.6 - 10.2 mg/dL | | CORRECTED) | | | + + + + | BILIRUBIN TOTAL | 0.9 | 0.3 - 1.2 mg/dL | + + + + | TOTAL PROTEIN, | 5.8 (L) | 6.4 - 8.2 g/dL | | PLASMA (LAB) | | | + + + + | ALBUMIN, PLASMA | 2.7 (L) | 3.5 - 4.7 g/dL | | (LAB) | | | + + + + | ALK PHOS | 219 (H) | 42 - 98 U/L | + + + + | AST(SGOT) | 20 | <=41 U/L | + + + + | ALT (SGPT) | 64 (H) | <=60 U/L | + + + + | ANION GAP | 7 | 4 - 11 mmol/L | + + + + | [...] | + + + | Blood | [facility], [address]ORE [address] | | | [place] [address] | + + + + + | [...] kidney function | + + PRODUCT - RED CELLS LEUKOREDUCED (07/11/2017 12:39 AM) + + + + | Component | Value | Ref Range | + + + + | PRODUCT DESCRIPTION | -3 RED BLOOD CELLS ADENINE-SALINE ADDED | | | | LEUKOCYT | | + + + + | PRODUCT UNIT # | [id number] | | + + + + | UNIT ABO | O | | + + + + | UNIT RH | POS | | + + + + | STATUS OF UNIT | Presumed Transfused | | + + + + | EXPIRATION DATE | [id number] | | + + + + | BLOOD TYPE BARCODE | 5100 | | + + + + | BLOOD PRODUCT CODE | [id number] | | + + + + + + + | Specimen | Performing Laboratory | + + + | | [facility], TRANSFUSION MEDICINE [address] [facility] | | | [place] [address] | + + + INR (07/10/2017 11:54 PM) + +-------+ + | Component | Value | Ref Range | + +-------+ + | INR | 1.14 | 0.90 - 1.20 INR | + +-------+ + + + + | Specimen | Performing Laboratory | + + + | Blood | [facility], [address]ORE [address] | | | [place] [address] | + + + + + | Narrative | + + | INR Therapeutic ranges for full anticoagulation: INR for Venous | | Thromboembolism (2.0 - 3.0) INR INR for most patients with | | mech. valves (2.5 - 3.5) INR | + + CBC AND AUTO DIFF (07/10/2017 11:53 PM) + + + + | Component | Value | Ref Range | + + + + | WHITE CELL COUNT | <0.10 (L) | 3.50 - 10.80 K/cu mm | + + + + | RED CELL COUNT | 2.42 (L) | 4.00 - 5.20 M/cu mm | + + + + | HEMOGLOBIN | 7.2 (L) | 12.0 - 16.0 g/dL | + + + + | HEMATOCRIT | 20.7 (L) | 36.0 - 46.0 % | + + + + | MCV | 85.5 | 80.0 - 96.0 fL | + + + + | MCHC | 34.8 | 33.0 - 35.5 g/dL | + + + + | RDW SD | 43.9 | 35.1 - 46.3 fL | + + + + | PLATELET COUNT | 11 (L) | 150 - 400 K/cu mm | + + + + | MPV | 7.7 (L) | 9.7 - 12.3 fL | [...] | | + + + + | IG% | Comment: WBC <300; differential not | 0.0 - 1.0 % | | | performed. | | [...] | | + + + + | IG# | Comment: WBC <300; differential not | 0.00 - 0.10 K/cu mm | | | performed. | | + + + + + + + | Specimen | Performing Laboratory | + + + | Blood | [facility], [address]ORE [address] [place] [address] | | | [place] [address] | + + + LDH TOTAL, PLASMA (07/10/2017 11:53 PM) + +---------+ + | Component | Value | Ref Range | + +---------+ + | LD TOTAL, PLASMA | 407 (H) | <=250 U/L | + +---------+ + | LD CMNT | No Hemo | | + +---------+ + + + + | Specimen | Performing Laboratory | + + + | Blood | [facility], CORE [address] [facility] | | | [place] [address] | + + + URIC ACID, PLASMA (07/10/2017 11:53 PM) + +---------+ + | Component | Value | Ref Range | + +---------+ + | URIC ACID, PLASMA | 1.4 (L) | 2.5 - 6.2 mg/dL | | (LAB) | | | + +---------+ + + + + | Specimen | Performing Laboratory | + + + | Blood | [facility], [address] [address] | | | [place] [address] | + + + PHOSPHORUS, PLASMA (07/10/2017 11:53 PM) + +-------+ + | Component | Value | Ref Range | + +-------+ + | PHOSPHORUS, PLASMA | 2.8 | 2.4 - 4.7 mg/dL | | (LAB) | | | + +-------+ + + + + | Specimen | Performing Laboratory | + + + | Blood | [facility], [address]ORE [address] | | | [place] [address] | + + + MAGNESIUM, PLASMA (07/10/2017 11:53 PM) + +-------+ + | Component | Value | Ref Range | + +-------+ + | MAGNESIUM,PLASMA | 2.0 | 1.6 - 2.6 mg/dL | + +-------+ + + + + | Specimen | Performing Laboratory | + + + | Blood | [facility], CORE [address] [place] [address] | | | [place] [address] | + + + + + | Narrative | + + | Reference range change effective 12/11/16. | + + CBC, WITH DIFFERENTIAL (07/10/2017 11:53 PM) + + + | Specimen | Performing Laboratory | + + + | Blood | | + + + + + | Narrative | + + | The following orders were created for panel order CBC, WITH DIFFERENTIAL. | | Procedure | | Abnormality Status | | --------- | | ------ CBC AND AUTO | | DIFF[[id number]] Abnormal Final | | result Please view results for these tests on the | | individual orders. | + + COMPLETE METABOLIC SET (NA,K,CL,CO2,BUN,CREAT,GLUC,CA,AST,ALT,BILI TOTAL,ALK PHOS,ALB,PROT TOTAL) (07/10/2017 11:53 PM) + + + + | Component | Value | Ref Range | + + + + | GLUCOSE, PLASMA | 119 (H) | 70 - 99 mg/dL | | (LAB) | | | + + + + | BUN, PLASMA (LAB) | 10 | 6 - 20 mg/dL | + + + + | CREATININE PLASMA | 0.54 (L) | 0.60 - 1.10 mg/dL | | (LAB) | | | + + + + | EGFR - | >60 | >60 mL/min | | JORDANIAN | | | + + + + | EGFR NON | >60 | >60 mL/min | | -JORDANIAN | | | + + + + | SODIUM, PLASMA (LAB) | 136 | 136 - 145 mmol/L | + + + + | POTASSIUM, PLASMA | 3.2 (L) | 3.4 - 5.0 mmol/L | | (LAB) | | | + + + + | CHLORIDE, PLASMA | 101 | 97 - 108 mmol/L | | (LAB) | | | + + + + | TOTAL CO2, PLASMA | 27 | 21 - 32 mmol/L | | (LAB) | | | + + + + | CALCIUM, PLASMA | 8.3 (L) | 8.6 - 10.2 mg/dL | | (LAB) | | | + + + + | CALCIUM(ALB | 9.3 | 8.6 - 10.2 mg/dL | | CORRECTED) | | | + + + + | BILIRUBIN TOTAL | 1.7 (H) | 0.3 - 1.2 mg/dL | + + + + | TOTAL PROTEIN, | 5.7 (L) | 6.4 - 8.2 g/dL | | PLASMA (LAB) | | | + + + + | ALBUMIN, PLASMA | 2.7 (L) | 3.5 - 4.7 g/dL | | (LAB) | | | + + + + | ALK PHOS | 228 (H) | 42 - 98 U/L | + + + + | AST(SGOT) | 23 | <=41 U/L | + + + + | ALT (SGPT) | 81 (H) | <=60 U/L | + + + + | ANION GAP | 8 | 4 - 11 mmol/L | + + + + | [...] | + + + | Blood | [facility], [address]ORE [address] [place] [address] | | | [place] [address] | + + + + + | [...] changing kidney function | + + CBC AND AUTO DIFF (07/10/2017 12:12 AM) + + + + | Component | Value | Ref Range | + + + + | WHITE CELL COUNT | <0.10 (L) | 3.50 - 10.80 K/cu mm | + + + + | RED CELL COUNT | 2.73 (L) | 4.00 - 5.20 M/cu mm | + + + + | HEMOGLOBIN | 8.1 (L) | 12.0 - 16.0 g/dL | + + + + | HEMATOCRIT | 23.3 (L) | 36.0 - 46.0 % | + + + + | MCV | 85.3 | 80.0 - 96.0 fL | + + + + | MCHC | 34.8 | 33.0 - 35.5 g/dL | + + + + | RDW SD | 44.8 | 35.1 - 46.3 fL | + + + + | PLATELET COUNT | 23 (L) | 150 - 400 K/cu mm | + + + + | MPV | 8.4 (L) | 9.7 - 12.3 fL | [...] | | + + + + | IG% | Comment: WBC <300; differential not | 0.0 - 1.0 % | | | performed. | | [...] | | + + + + | IG# | Comment: WBC <300; differential not | 0.00 - 0.10 K/cu mm | | | performed. | | + + + + + + + | Specimen | Performing Laboratory | + + + | Blood | [facility], CORE [address] | | | [place] [address] | + + + INR (07/10/2017 12:12 AM) + +-------+ + | Component | Value | Ref Range | + +-------+ + | INR | 1.07 | 0.90 - 1.20 INR | + +-------+ + + + + | Specimen | Performing Laboratory | + + + | Blood | [facility], [address] | | | [place] [address] | + + + + + | Narrative | + + | INR Therapeutic ranges for full anticoagulation: INR for Venous | | Thromboembolism (2.0 - 3.0) INR INR for most patients with | | mech. valves (2.5 - 3.5) INR | + + LDH TOTAL, PLASMA (07/10/2017 12:12 AM) + +---------+ + | Component | Value | Ref Range | + +---------+ + | LD TOTAL, PLASMA | 458 (H) | <=250 U/L | + +---------+ + | LD CMNT | No Hemo | | + +---------+ + + + + | Specimen | Performing Laboratory | + + + | Blood | [facility], [address]ORE [address] [place] [address] | | | [place] [address] | + + + URIC ACID, PLASMA (07/10/2017 12:12 AM) + +---------+ + | Component | Value | Ref Range | + +---------+ + | URIC ACID, PLASMA | 1.4 (L) | 2.5 - 6.2 mg/dL | | (LAB) | | | + +---------+ + + + + | Specimen | Performing Laboratory | + + + | Blood | [facility], [address] | | | [place] [address] | + + + PHOSPHORUS, PLASMA (07/10/2017 12:12 AM) + +-------+ + | Component | Value | Ref Range | + +-------+ + | PHOSPHORUS, PLASMA | 2.9 | 2.4 - 4.7 mg/dL | | (LAB) | | | + +-------+ + + + + | Specimen | Performing Laboratory | + + + | Blood | [facility], [address] [facility] | | | [place] [address] | + + + MAGNESIUM, PLASMA (07/10/2017 12:12 AM) + +-------+ + | Component | Value | Ref Range | + +-------+ + | MAGNESIUM,PLASMA | 2.1 | 1.6 - 2.6 mg/dL | + +-------+ + + + + | Specimen | Performing Laboratory | + + + | Blood | [facility], [address]ORE [address] [facility] | | | [place] [address] | + + + + + | Narrative | + + | Reference range change effective 12/11/16. | + + CBC, WITH DIFFERENTIAL (07/10/2017 12:12 AM) + + + | Specimen | Performing Laboratory | + + + | Blood | | + + + + + | Narrative | + + | The following orders were created for panel order CBC, WITH DIFFERENTIAL. | | Procedure | | Abnormality Status | | --------- | | ------ CBC AND AUTO | | DIFF[[id number]] Abnormal Final | | result Please view results for these tests on the | | individual orders. | + + COMPLETE METABOLIC SET (NA,K,CL,CO2,BUN,CREAT,GLUC,CA,AST,ALT,BILI TOTAL,ALK PHOS,ALB,PROT TOTAL) (07/10/2017 12:12 AM) + + + + | Component | Value | Ref Range | + + + + | GLUCOSE, PLASMA | 89 | 70 - 99 mg/dL | | (LAB) | | | + + + + | BUN, PLASMA (LAB) | 7 | 6 - 20 mg/dL | + + + + | CREATININE PLASMA | 0.44 (L) | 0.60 - 1.10 mg/dL | | (LAB) | | | + + + + | EGFR - | >60 | >60 mL/min | | JORDANIAN | | | + + + + | EGFR NON | >60 | >60 mL/min | | -JORDANIAN | | | + + + + [...] + + + | BILIRUBIN TOTAL | 1.8 (H) | 0.3 - 1.2 mg/dL | + [...] + + + + | AST(SGOT) | 34 | <=41 U/L | + + + + | ALT (SGPT) | 103 (H) | <=60 U/L | + + + + | ANION GAP | 8 | 4 - 11 mmol/L | + + + + | [...] | + + + | Blood | [facility], CORE [address] | | | [place] [address] | + + + + + | [...] + + PRODUCT - PLATELET PHERESIS LEUKOREDUCED (07/09/2017 3:33 AM) + + + + | Component | Value | Ref Range | + + + + | PRODUCT DESCRIPTION | PLATELETS PHERESIS, LEUKOCYTE REDUCED, | | | | IRRADIATED | | + + + + | PRODUCT UNIT # | [id number] | | + + + + | UNIT ABO | O | | + + + + | UNIT RH | POS | | + + + + | STATUS OF UNIT | Presumed Transfused | | + + + + | EXPIRATION DATE | [id number] | | + + + + | BLOOD TYPE BARCODE | 5100 | | + + + + | BLOOD PRODUCT CODE | [id number] | | + + + + + + + | Specimen | Performing Laboratory | + + + | | [facility], TRANSFUSION MEDICINE [address] [facility] | | | [place] [address] | + + + PRODUCT - RED CELLS LEUKOREDUCED (07/09/2017 3:33 AM) + + + + | Component | Value | Ref Range | + + + + | PRODUCT DESCRIPTION | -1 RED BLOOD CELLS ADENINE-SALINE ADDED | | | | LEUKOCYT | | + + + + | PRODUCT UNIT # | [id number] | | + + + + | UNIT ABO | O | | + + + + | UNIT RH | POS | | + + + + | STATUS OF UNIT | Presumed Transfused | | + + + + | EXPIRATION DATE | [id number] | | + + + + | BLOOD TYPE BARCODE | 5100 | | + + + + | BLOOD PRODUCT CODE | [id number] | | + + + + + + + | Specimen | Performing Laboratory | + + + | | [facility], TRANSFUSION MEDICINE [address] | | | [place] [address] | + + + ANTIBODY SCREEN (07/09/2017 1:56 AM) + + + + | Component | Value | Ref Range | + + + + | Antibody Screen | Negative | | + + + + + + + | Specimen | Performing Laboratory | + + + | Blood | [facility], TRANSFUSION MEDICINE [address] | | | [address] [facility] [address] | + + + ABO & RH TYPE (07/09/2017 1:56 AM) + + + + | Component | Value | Ref Range | + + + + | ABO Group | O | | + + + + | Rh Type | Positive | | + + + + + + + | Specimen | Performing Laboratory | + + + | Blood | [facility], TRANSFUSION MEDICINE [address] [facility] | | | [place] [address] | + + + TYPE AND SCREEN (07/09/2017 1:56 AM) + + + | Specimen | Performing Laboratory | + + + | Blood | | + + + + + | Narrative | + + | The following orders were created for panel order TYPE AND SCREEN. | | Procedure | | Abnormality Status | | --------- | | ------ ABO & RH | | TYPE[[id number]] F | | inal result ANTIBODY | | SCREEN[[id number]] Fin | | al result Please view results for these tests on the | | individual orders. | + + CBC AND AUTO DIFF (07/09/2017 1:20 AM) + + + + | Component | Value | Ref Range | + + + + | WHITE CELL COUNT | <0.10 (L) | 3.50 - 10.80 K/cu mm | + + + + | RED CELL COUNT | 2.46 (L) | 4.00 - 5.20 M/cu mm | + + + + | HEMOGLOBIN | 7.3 (L) | 12.0 - 16.0 g/dL | + + + + | HEMATOCRIT | 20.8 (L) | 36.0 - 46.0 % | + + + + | MCV | 84.6 | 80.0 - 96.0 fL | + + + + | MCHC | 35.1 | 33.0 - 35.5 g/dL | + + + + | RDW SD | 45.4 | 35.1 - 46.3 fL | + [...] | | + + + + | IG% | Comment: WBC <300; differential not | 0.0 - 1.0 % | | | performed. | | [...] | | + + + + | IG# | Comment: WBC <300; differential not | 0.00 - 0.10 K/cu mm | | | performed. | | + + + + + + + | Specimen | Performing Laboratory | + + + | Blood | [facility], CORE [address] [place] [address] | | | [place] [address] | + + + INR (07/09/2017 1:20 AM) + +-------+ + | Component | Value | Ref Range | + +-------+ + | INR | 1.08 | 0.90 - 1.20 INR | + +-------+ + + + + | Specimen | Performing Laboratory | + + + | Blood | [facility], [address]ORE [address] | | | [place] [address] | + + + + + | Narrative | + + | INR Therapeutic ranges for full anticoagulation: INR for Venous | | Thromboembolism (2.0 - 3.0) INR INR for most patients with | | mech. valves (2.5 - 3.5) INR | + + LDH TOTAL, PLASMA (07/09/2017 1:20 AM) + +---------+ + | Component | Value | Ref Range | + +---------+ + | LD TOTAL, PLASMA | 518 (H) | <=250 U/L | + +---------+ + | LD CMNT | No Hemo | | + +---------+ + + + + | Specimen | Performing Laboratory | + + + | Blood | [facility], CORE [address] | | | [place] [address] | + + + URIC ACID, PLASMA (07/09/2017 1:20 AM) + +---------+ + | Component | Value | Ref Range | + +---------+ + | URIC ACID, PLASMA | 1.3 (L) | 2.5 - 6.2 mg/dL | | (LAB) | | | + +---------+ + + + + | Specimen | Performing Laboratory | + + + | Blood | [facility], CORE [address] | | | [place] [address] | + + + PHOSPHORUS, PLASMA (07/09/2017 1:20 AM) + +-------+ + | Component | Value | Ref Range | + +-------+ + | PHOSPHORUS, PLASMA | 2.8 | 2.4 - 4.7 mg/dL | | (LAB) | | | + +-------+ + + + + | Specimen | Performing Laboratory | + + + | Blood | [facility], [facility] [address] | | | [place] [address] | + + + MAGNESIUM, PLASMA (07/09/2017 1:20 AM) + +-------+ + | Component | Value | Ref Range | + +-------+ + | MAGNESIUM,PLASMA | 2.0 | 1.6 - 2.6 mg/dL | + +-------+ + + + + | Specimen | Performing Laboratory | + + + | Blood | [facility], CORE [address] | | | [place] [address] | + + + + + | Narrative | + + | Reference range change effective 12/11/16. | + + CBC, WITH DIFFERENTIAL (07/09/2017 1:20 AM) + + + | Specimen | Performing Laboratory | + + + | Blood | | + + + + + | Narrative | + + | The following orders were created for panel order CBC, WITH DIFFERENTIAL. | | Procedure | | Abnormality Status | | --------- | | ------ CBC AND AUTO | | DIFF[[id number]] Abnormal Final | | result Please view results for these tests on the | | individual orders. | + + COMPLETE METABOLIC SET (NA,K,CL,CO2,BUN,CREAT,GLUC,CA,AST,ALT,BILI TOTAL,ALK PHOS,ALB,PROT TOTAL) (07/09/2017 1:20 AM) + + + + | Component | Value | Ref Range | + + + + | GLUCOSE, PLASMA | 102 (H) | 70 - 99 mg/dL | | (LAB) | | | + + + + | BUN, PLASMA (LAB) | 7 | 6 - 20 mg/dL | + + + + | CREATININE PLASMA | 0.36 (L) | 0.60 - 1.10 mg/dL | | (LAB) | | | + + + + | EGFR - | >60 | >60 mL/min | | JORDANIAN | | | + + + + | EGFR NON | >60 | >60 mL/min | | -JORDANIAN | | | + + + + | SODIUM, PLASMA (LAB) | 136 | 136 - 145 mmol/L | + + + + | POTASSIUM, PLASMA | 3.4 | [...] + + + | TOTAL PROTEIN, | 5.6 (L) | 6.4 - 8.2 g/dL | | PLASMA (LAB) | | | + + + + | ALBUMIN, PLASMA | 2.5 (L) | 3.5 - 4.7 g/dL | | (LAB) | | | + + + + | ALK PHOS | 165 (H) | 42 - 98 U/L | + + + + | AST(SGOT) | 34 | <=41 U/L | + + + + | ALT (SGPT) | 122 (H) | <=60 U/L | + + + + | ANION GAP | 9 | 4 - 11 mmol/L | + + + + | [...] | + + + | Blood | [facility], CORE [address] | | | [place] [address] | + + + + + | [...] | + + VRE (FRANCISCO) BY PCR (07/08/2017 6:27 PM) + + + + | Component | Value | Ref Range | + + + + | VRE BY PCR | Negative for van A gene | Negative for van A | | | | gene | + + + + + + + | Specimen | Performing Laboratory | + + + | Swab - Rectum | [facility], CORE [address] | | | [place] [address] | + + + CAPILLARY BLOOD GLUCOSE (NO CHG), POC (07/08/2017 2:32 PM) + +---------+ + | Component | Value | Ref Range | + +---------+ + | BLOOD GLUCOSE, POC | 112 (H) | 70 - 99 mg/dL | + +---------+ + + + + | Specimen | Performing Laboratory | + + + | | [facility], POINT OF CARE TESTS [address] | | | [place] [address] | + + + CAPILLARY BLOOD GLUCOSE (NO CHG), POC (07/08/2017 9:41 AM) + +---------+ + | Component | Value | Ref Range | + +---------+ + | BLOOD GLUCOSE, POC | 118 (H) | 70 - 99 mg/dL | + +---------+ + + + + | Specimen | Performing Laboratory | + + + | | [facility], POINT OF CARE TESTS [address] | | | [place] [address] | + + + PRODUCT - PLATELET PHERESIS LEUKOREDUCED (07/08/2017 3:39 AM) + + + + | Component | Value | Ref Range | + + + + | PRODUCT DESCRIPTION | APHERESIS | | | | PLATELETS,PAS,LEUKOREDUCED,IRRADIATED | | + + + + | PRODUCT UNIT # | [id number] | | + + + + | UNIT ABO | A | | + + + + | UNIT RH | POS | | + + + + | STATUS OF UNIT | Presumed Transfused | | + + + + | EXPIRATION DATE | [id number] | | + + + + | BLOOD TYPE BARCODE | 6200 | | + + + + | BLOOD PRODUCT CODE | [id number] | | + + + + + + + | Specimen | Performing Laboratory | + + + | | [facility], TRANSFUSION MEDICINE [address] [facility] | | | [place] [address] | + + + INR (07/08/2017 1:19 AM) + +-------+ + | Component | Value | Ref Range | + +-------+ + | INR | 1.07 | 0.90 - 1.20 INR | + +-------+ + + + + | Specimen | Performing Laboratory | + + + | Blood | [facility], CORE [address] | | | [facility] [address] | + + + + + | Narrative | + + | INR Therapeutic ranges for full anticoagulation: INR for Venous | | Thromboembolism (2.0 - 3.0) INR INR for most patients with | | mech. valves (2.5 - 3.5) INR | + + LDH TOTAL, PLASMA (07/08/2017 1:19 AM) + +---------+ + | Component | Value | Ref Range | + +---------+ + | LD TOTAL, PLASMA | 600 (H) | <=250 U/L | + +---------+ + | LD CMNT | No Hemo | | + +---------+ + + + + | Specimen | Performing Laboratory | + + + | Blood | [facility], CORE [address] | | | [place], [place] [address] | + + + URIC ACID, PLASMA (07/08/2017 1:19 AM) + +---------+ + | Component | Value | Ref Range | + +---------+ + | URIC ACID, PLASMA | 1.4 (L) | 2.5 - 6.2 mg/dL | | (LAB) | | | + +---------+ + + + + | Specimen | Performing Laboratory | + + + | Blood | [facility], [address] | | | [place] [facility] [place] [address] | + + + PHOSPHORUS, PLASMA (07/08/2017 1:19 AM) + +-------+ + | Component | Value | Ref Range | + +-------+ + | PHOSPHORUS, PLASMA | 3.1 | 2.4 - 4.7 mg/dL | | (LAB) | | | + +-------+ + + + + | Specimen | Performing Laboratory | + + + | Blood | [facility], [address] | | | [place] [address] | + + + MAGNESIUM, PLASMA (07/08/2017 1:19 AM) + +-------+ + | Component | Value | Ref Range | + +-------+ + | MAGNESIUM,PLASMA | 2.0 | 1.6 - 2.6 mg/dL | + +-------+ + + + + | Specimen | Performing Laboratory | + + + | Blood | [facility], [address] | | | [place], [place] [address] | + + + + + | Narrative | + + | Reference range change effective 12/11/16. | + + COMPLETE METABOLIC SET (NA,K,CL,CO2,BUN,CREAT,GLUC,CA,AST,ALT,BILI TOTAL,ALK PHOS,ALB,PROT TOTAL) (07/08/2017 1:19 AM) + + + + | Component | Value | Ref Range | + + + + | GLUCOSE, PLASMA | 99 | [...] | >60 | >60 mL/min | | JORDANIAN | | | + + + + | EGFR NON | >60 | >60 mL/min | | -JORDANIAN | | | + + + + | SODIUM, PLASMA (LAB) | 137 | 136 - 145 mmol/L | + + + + | POTASSIUM, PLASMA | 3.4 | [...] + + + | BILIRUBIN TOTAL | 1.2 | 0.3 - 1.2 mg/dL | + + + + | TOTAL PROTEIN, | 5.4 (L) | 6.4 - 8.2 g/dL | | PLASMA (LAB) | | | + + + + | ALBUMIN, PLASMA | 2.7 (L) | 3.5 - 4.7 g/dL | | (LAB) | | | + + + + | ALK PHOS | 151 (H) | 42 - 98 U/L | + + + + | AST(SGOT) | 58 (H) | <=41 U/L | + + + + | ALT (SGPT) | 164 (H) | <=60 U/L | + + + + | ANION GAP | 9 | 4 - 11 mmol/L | + + + + | [...] Blood | [facility], [address] | | | [place] [address] | + + + + + | [...] changing kidney function | + + CBC AND AUTO DIFF (07/08/2017 1:17 AM) + + + + | [...] + + + + | HEMATOCRIT | 22.8 (L) | 36.0 - 46.0 % | + + + + | MCV | 84.1 | 80.0 - 96.0 fL | + + + + | MCHC | 35.5 | 33.0 - 35.5 g/dL | + + + + | RDW SD | 45.8 | 35.1 - 46.3 fL | + [...] | | + + + + | IG% | Comment: WBC <300; differential not | 0.0 - 1.0 % | | | performed. | | [...] | | + + + + | IG# | Comment: WBC <300; differential not | 0.00 - 0.10 K/cu mm | | | performed. | | + + + + + + + | Specimen | Performing Laboratory | + + + | Blood | [facility], [address] | | | [facility] [address] | + + + CBC, WITH DIFFERENTIAL (07/08/2017 1:17 AM) + + + | Specimen | Performing Laboratory | + + + | Blood | | + + + + + | Narrative | + + | The following orders were created for panel order CBC, WITH DIFFERENTIAL. | | Procedure | | Abnormality Status | | --------- | | ------ CBC AND AUTO | | DIFF[[id number]] Abnormal Final | | result Please view results for these tests on the | | individual orders. | + + CAPILLARY BLOOD GLUCOSE (NO CHG), POC (07/07/2017 6:07 PM) + +---------+ + | Component | Value | Ref Range | + +---------+ + | BLOOD GLUCOSE, POC | 101 (H) | 70 - 99 mg/dL | + +---------+ + + + + | Specimen | Performing Laboratory | + + + | | [facility] [address] | | | [place] [address] | + + + CAPILLARY BLOOD GLUCOSE (NO CHG), POC (07/07/2017 2:27 PM) + +---------+ + | Component | Value | Ref Range | + +---------+ + | BLOOD GLUCOSE, POC | 115 (H) | 70 - 99 mg/dL | + +---------+ + + + + | Specimen | Performing Laboratory | + + + | | [facility] POINT OF CARE TESTS [address] | | | [place] [address] | + + + CAPILLARY BLOOD GLUCOSE (NO CHG), POC (07/07/2017 8:46 AM) + +---------+ + | Component | Value | Ref Range | + +---------+ + | BLOOD GLUCOSE, POC | 113 (H) | 70 - 99 mg/dL | + +---------+ + + + + | Specimen | Performing Laboratory | + + + | | [facility], POINT OF CARE TESTS [address] | | | [place] [address] | + + + PRODUCT - RED CELLS LEUKOREDUCED (07/07/2017 12:28 AM) + + + + | Component | Value | Ref Range | + + + + | PRODUCT DESCRIPTION | -1 RED BLOOD CELLS ADENINE-SALINE ADDED | | | | LEUKOCYT | | + + + + | PRODUCT UNIT # | [id number] | | + + + + | UNIT ABO | O | | + + + + | UNIT RH | POS | | + + + + | STATUS OF UNIT | Presumed Transfused | | + + + + | EXPIRATION DATE | [id number] | | + + + + | BLOOD TYPE BARCODE | 5100 | | + + + + | BLOOD PRODUCT CODE | [id number] | | + + + + + + + | Specimen | Performing Laboratory | + + + | | [facility], TRANSFUSION MEDICINE [address] [facility] | | | [place] [address] | + + + CBC AND AUTO DIFF (07/06/2017 11:04 PM) + + + + | Component | Value | Ref Range | + + + + | WHITE CELL COUNT | <0.10 (L) | 3.50 - 10.80 K/cu mm | + + + + | RED CELL COUNT | 2.32 (L) | 4.00 - 5.20 M/cu mm | + + + + | HEMOGLOBIN | 7.0 (L) | 12.0 - 16.0 g/dL | + + + + | HEMATOCRIT | 20.1 (L) | 36.0 - 46.0 % | + + + + | MCV | 86.6 | 80.0 - 96.0 fL | + + + + | MCHC | 34.8 | 33.0 - 35.5 g/dL | + + + + | RDW SD | 48.3 (H) | 35.1 - 46.3 fL | + + + + | PLATELET COUNT | 15 (L) | 150 - 400 K/cu mm | + + + + | MPV | 10.5 | 9.7 - 12.3 fL | + [...] | | + + + + | IG% | Comment: WBC <300; differential not | 0.0 - 1.0 % | | | performed. | | [...] | | + + + + | IG# | Comment: WBC <300; differential not | 0.00 - 0.10 K/cu mm | | | performed. | | + + + + + + + | Specimen | Performing Laboratory | + + + | Blood | [facility], CORE [address] | | | [facility] [address] | + + + CBC, WITH DIFFERENTIAL (07/06/2017 11:04 PM) + + + | Specimen | Performing Laboratory | + + + | Blood | | + + + + + | Narrative | + + | The following orders were created for panel order CBC, WITH DIFFERENTIAL. | | Procedure | | Abnormality Status | | --------- | | ------ CBC AND AUTO | | DIFF[[id number]] Abnormal Final | | result Please view results for these tests on the | | individual orders. | + + INR (07/06/2017 11:03 PM) + +-------+ + | Component | Value | Ref Range | + +-------+ + | INR | 1.09 | 0.90 - 1.20 INR | + +-------+ + + + + | Specimen | Performing Laboratory | + + + | Blood | [facility], CORE [address] | | | [place] [address] | + + + + + | Narrative | + + | INR Therapeutic ranges for full anticoagulation: INR for Venous | | Thromboembolism (2.0 - 3.0) INR INR for most patients with | | mech. valves (2.5 - 3.5) INR | + + LDH TOTAL, PLASMA (07/06/2017 11:03 PM) + +---------+ + | Component | Value | Ref Range | + +---------+ + | LD TOTAL, PLASMA | 720 (H) | <=250 U/L | + +---------+ + | LD CMNT | No Hemo | | + +---------+ + + + + | Specimen | Performing Laboratory | + + + | Blood | [facility], CORE [address] | | | [place] [address] | + + + URIC ACID, PLASMA (07/06/2017 11:03 PM) + +---------+ + | Component | Value | Ref Range | + +---------+ + | URIC ACID, PLASMA | 1.4 (L) | 2.5 - 6.2 mg/dL | | (LAB) | | | + +---------+ + + + + | Specimen | Performing Laboratory | + + + | Blood | [facility], CORE [address] | | | [facility] [address] | + + + PHOSPHORUS, PLASMA (07/06/2017 11:03 PM) + +-------+ + | Component | Value | Ref Range | + +-------+ + | PHOSPHORUS, PLASMA | 2.7 | 2.4 - 4.7 mg/dL | | (LAB) | | | + +-------+ + + + + | Specimen | Performing Laboratory | + + + | Blood | [facility], CORE [address] | | | [facility] [address] | + + + MAGNESIUM, PLASMA (07/06/2017 11:03 PM) + +-------+ + | Component | Value | Ref Range | + +-------+ + | MAGNESIUM,PLASMA | 2.1 | 1.6 - 2.6 mg/dL | + +-------+ + + + + | Specimen | Performing Laboratory | + + + | Blood | [facility], [facility] [address] [facility] [address] | | | [place] [address] | + + + + + | Narrative | + + | Reference range change effective 12/11/16. | + + COMPLETE METABOLIC SET (NA,K,CL,CO2,BUN,CREAT,GLUC,CA,AST,ALT,BILI TOTAL,ALK PHOS,ALB,PROT TOTAL) (07/06/2017 11:03 PM) + + + + | Component | Value | Ref Range | + + + + | GLUCOSE, PLASMA | 122 (H) [...] | >60 | >60 mL/min | | JORDANIAN | | | + + + + | EGFR NON | >60 | >60 mL/min | | -JORDANIAN | | | + + + + | SODIUM, PLASMA (LAB) | 138 | 136 - 145 mmol/L | + + + + | POTASSIUM, PLASMA | 3.4 | [...] + + + | CALCIUM, PLASMA | 7.9 (L) | 8.6 - 10.2 mg/dL | | (LAB) | | | + + + + | CALCIUM(ALB | 9.1 | 8.6 - 10.2 mg/dL [...] + + + + | AST(SGOT) | 110 (H) | <=41 U/L | + + + + | ALT (SGPT) | 227 (H) | <=60 U/L | + + + + | ANION GAP | 8 | 4 - 11 mmol/L | + + + + | [...] | + + + | Blood | [facility], CORE [address] | | | [place] [address] | + + + + + | [...] Rapidly changing kidney function | + + CAPILLARY BLOOD GLUCOSE (NO CHG), POC (07/06/2017 11:01 PM) + +---------+ + | Component | Value | Ref Range | + +---------+ + | BLOOD GLUCOSE, POC | 129 (H) | 70 - 99 mg/dL | + +---------+ + + + + | Specimen | Performing Laboratory | + + + | | [facility], POINT OF CARE TESTS [address] | | | [place] [address] | + + + CAPILLARY BLOOD GLUCOSE (NO CHG), POC (07/06/2017 6:44 PM) + +---------+ + | Component | Value | Ref Range | + +---------+ + | BLOOD GLUCOSE, POC | 131 (H) | 70 - 99 mg/dL | + +---------+ + + + + | Specimen | Performing Laboratory | + + + | | [facility], PO[facility] OF [facility] TESTS [address] | | | [place] [address] | + + + CAPILLARY BLOOD GLUCOSE (NO CHG), POC (07/06/2017 12:50 PM) + +---------+ + | Component | Value | Ref Range | + +---------+ + | BLOOD GLUCOSE, POC | 150 (H) | 70 - 99 mg/dL | + +---------+ + + + + | Specimen | Performing Laboratory | + + + | | [facility] PO[facility] [address] | | | [place] [address] | + + + CAPILLARY BLOOD GLUCOSE (NO CHG), POC (07/06/2017 7:37 AM) + +---------+ + | Component | Value | Ref Range | + +---------+ + | BLOOD GLUCOSE, POC | 139 (H) | 70 - 99 mg/dL | + +---------+ + + + + | Specimen | Performing Laboratory | + + + | | [facility], POINT OF CARE TESTS [address] | | | [place] [address] | + + + PRODUCT - PLATELET PHERESIS LEUKOREDUCED (07/06/2017 12:47 AM) + + + + | Component | Value | Ref Range | + + + + | PRODUCT DESCRIPTION | APHERESIS | | | | PLATELETS,PAS,LEUKOREDUCED,IRRADIATED | | + + + + | PRODUCT UNIT # | [id number] | | + + + + | UNIT ABO | O | | + + + + | UNIT RH | POS | | + + + + | STATUS OF UNIT | Presumed Transfused | | + + + + | EXPIRATION DATE | [id number] | | + + + + | BLOOD TYPE BARCODE | 5100 | | + + + + | BLOOD PRODUCT CODE | [id number] | | + + + + + + + | Specimen | Performing Laboratory | + + + | | [facility], TRANSFUSION MEDICINE [address] [place] [address] | | | [place] [address] | + + + CBC AND AUTO DIFF (07/05/2017 11:25 PM) + + + + | [...] + + + + | HEMATOCRIT | 21.5 (L) | 36.0 - 46.0 % | + + + + | MCV | 88.1 | 80.0 - 96.0 fL | + + + + | MCHC | 34.0 | 33.0 - 35.5 g/dL | + + + + | RDW SD | 49.9 (H) | 35.1 - 46.3 fL | + + + + | PLATELET COUNT | 9 (LL) | 150 - 400 K/cu mm | + + + + | MPV | 11.7 | 9.7 - 12.3 fL | + [...] | | + + + + | IG% | Comment: WBC <300; differential not | 0.0 - 1.0 % | | | performed. | | [...] | | + + + + | IG# | Comment: WBC <300; differential not | 0.00 - 0.10 K/cu mm | | | performed. | | + + + + + + + | Specimen | Performing Laboratory | + + + | Blood | [facility], CORE [address] | | | [place] [address] | + + + INR (07/05/2017 11:25 PM) + +-------+ + | Component | Value | Ref Range | + +-------+ + | INR | 1.09 | 0.90 - 1.20 INR | + +-------+ + + + + | Specimen | Performing Laboratory | + + + | Blood | [facility], CORE [address] | | | [place] [address] | + + + + + | Narrative | + + | INR Therapeutic ranges for full anticoagulation: INR for Venous | | Thromboembolism (2.0 - 3.0) INR INR for most patients with | | mech. valves (2.5 - 3.5) INR | + + LDH TOTAL, PLASMA (07/05/2017 11:25 PM) + +---------+ + | Component | Value | Ref Range | + +---------+ + | LD TOTAL, PLASMA | 801 (H) | <=250 U/L | + +---------+ + | LD CMNT | No Hemo | | + +---------+ + + + + | Specimen | Performing Laboratory | + + + | Blood | [facility], CORE [address] [place] [address] | | | [facility] [place] [address] | + + + URIC ACID, PLASMA (07/05/2017 11:25 PM) + +---------+ + | Component | Value | Ref Range | + +---------+ + | URIC ACID, PLASMA | 2.0 (L) | 2.5 - 6.2 mg/dL | | (LAB) | | | + +---------+ + + + + | Specimen | Performing Laboratory | + + + | Blood | [facility], CORE [address] | | | [place] [address] | + + + PHOSPHORUS, PLASMA (07/05/2017 11:25 PM) + +-------+ + | Component | Value | Ref Range | + +-------+ + | PHOSPHORUS, PLASMA | 2.6 | 2.4 - 4.7 mg/dL | | (LAB) | | | + +-------+ + + + + | Specimen | Performing Laboratory | + + + | Blood | [facility], CORE [address] [place] [address] | | | [place] [address] | + + + MAGNESIUM, PLASMA (07/05/2017 11:25 PM) + +-------+ + | Component | Value | Ref Range | + +-------+ + | MAGNESIUM,PLASMA | 2.2 | 1.6 - 2.6 mg/dL | + +-------+ + + + + | Specimen | Performing Laboratory | + + + | Blood | [facility], CORE [address] | | | [place] [address] | + + + + + | Narrative | + + | Reference range change effective 12/11/16. | + + CBC, WITH DIFFERENTIAL (07/05/2017 11:25 PM) + + + | Specimen | Performing Laboratory | + + + | Blood | | + + + + + | Narrative | + + | The following orders were created for panel order CBC, WITH DIFFERENTIAL. | | Procedure | | Abnormality Status | | --------- | | ------ CBC AND AUTO | | DIFF[[id number]] Abnormal Final | | result Please view results for these tests on the | | individual orders. | + + COMPLETE METABOLIC SET (NA,K,CL,CO2,BUN,CREAT,GLUC,CA,AST,ALT,BILI TOTAL,ALK PHOS,ALB,PROT TOTAL) (07/05/2017 11:25 PM) + + + + | Component | Value | Ref Range | + + + + | GLUCOSE, PLASMA | 157 (H) | 70 - 99 mg/dL | | (LAB) | | | + + + + | BUN, PLASMA (LAB) | 11 | 6 - 20 mg/dL | + + + + | CREATININE PLASMA | 0.30 (L) | 0.60 - 1.10 mg/dL | | (LAB) | | | + + + + | EGFR - | >60 | >60 mL/min | | JORDANIAN | | | + + + + | EGFR NON | >60 | >60 mL/min | | -JORDANIAN | | | + + + + [...] + + + | TOTAL PROTEIN, | 5.0 (L) | 6.4 - 8.2 g/dL | | PLASMA (LAB) | | | + + + + | ALBUMIN, PLASMA | 2.4 (L) | 3.5 - 4.7 g/dL | | (LAB) | | | + + + + | ALK PHOS | 162 (H) | 42 - 98 U/L | + + + + | AST(SGOT) | 184 (H) | <=41 U/L | + + + + | ALT (SGPT) | 283 (H) | <=60 U/L | + + + + | ANION GAP | 6 | 4 - 11 mmol/L | + + + + | [...] | + + + | Blood | [facility], [facility] [address] | | | [place] [address] | + + + + + | [...] Rapidly changing kidney function | + + CAPILLARY BLOOD GLUCOSE (NO CHG), POC (07/05/2017 11:24 PM) + +---------+ + | Component | Value | Ref Range | + +---------+ + | BLOOD GLUCOSE, POC | 193 (H) | 70 - 99 mg/dL | + +---------+ + + + + | Specimen | Performing Laboratory | + + + | | [facility] POINT OF CARE TESTS [address] | | | [place] [address] | + + + CAPILLARY BLOOD GLUCOSE (NO CHG), POC (07/05/2017 7:46 PM) + +---------+ + | Component | Value | Ref Range | + +---------+ + | BLOOD GLUCOSE, POC | 177 (H) | 70 - 99 mg/dL | + +---------+ + + + + | Specimen | Performing Laboratory | + + + | | [facility], POINT OF CARE TESTS [address] | | | [place] [address] | + + + CAPILLARY BLOOD GLUCOSE (NO CHG), POC (07/05/2017 12:11 PM) + +---------+ + | Component | Value | Ref Range | + +---------+ + | BLOOD GLUCOSE, POC | 230 (H) | 70 - 99 mg/dL | + +---------+ + + + + | Specimen | Performing Laboratory | + + + | | [facility], POINT OF CARE TESTS [address] | | | [place] [address] | + + + CBC AND AUTO DIFF (07/05/2017 12:31 AM) + + + + | Component | Value | Ref Range | + + + + | WHITE CELL COUNT | <0.10 (L) | 3.50 - 10.80 K/cu mm | + + + + | RED CELL COUNT | 2.50 (L) | 4.00 - 5.20 M/cu mm | + + + + | HEMOGLOBIN | 7.5 (L) | 12.0 - 16.0 g/dL | + + + + | HEMATOCRIT | 22.0 (L) | 36.0 - 46.0 % | + + + + | MCV | 88.0 | 80.0 - 96.0 fL | + + + + | MCHC | 34.1 | 33.0 - 35.5 g/dL | + + + + | RDW SD | 52.0 (H) | 35.1 - 46.3 fL | + + + + | PLATELET COUNT | 17 (L) | 150 - 400 K/cu mm | + + + + | MPV | 10.9 | 9.7 - 12.3 fL | + [...] | | + + + + | IG% | Comment: WBC <300; differential not | 0.0 - 1.0 % | | | performed. | | [...] | | + + + + | IG# | Comment: WBC <300; differential not | 0.00 - 0.10 K/cu mm | | | performed. | | + + + + + + + | Specimen | Performing Laboratory | + + + | Blood | [facility], CORE [address] | | | [place] [address] | + + + LDH TOTAL, PLASMA (07/05/2017 12:31 AM) + +---------+ + | Component | Value | Ref Range | + +---------+ + | LD TOTAL, PLASMA | 998 (H) | <=250 U/L | + +---------+ + | LD CMNT | No Hemo | | + +---------+ + + + + | Specimen | Performing Laboratory | + + + | Blood | [facility], CORE [address] [place] [address] | | | [place] [address] | + + + URIC ACID, PLASMA (07/05/2017 12:31 AM) + +---------+ + | Component | Value | Ref Range | + +---------+ + | URIC ACID, PLASMA | 2.3 (L) | 2.5 - 6.2 mg/dL | | (LAB) | | | + +---------+ + + + + | Specimen | Performing Laboratory | + + + | Blood | [facility], CORE [address] | | | [place] [address] | + + + PHOSPHORUS, PLASMA (07/05/2017 12:31 AM) + +-------+ + | Component | Value | Ref Range | + +-------+ + | PHOSPHORUS, PLASMA | 2.9 | 2.4 - 4.7 mg/dL | | (LAB) | | | + +-------+ + + + + | Specimen | Performing Laboratory | + + + | Blood | [facility], CORE [address] | | | [place] [address] | + + + MAGNESIUM, PLASMA (07/05/2017 12:31 AM) + +-------+ + | Component | Value | Ref Range | + +-------+ + | MAGNESIUM,PLASMA | 2.5 | 1.6 - 2.6 mg/dL | + +-------+ + + + + | Specimen | Performing Laboratory | + + + | Blood | [facility], CORE [address] | | | [facility] [address] | + + + + + | Narrative | + + | Reference range change effective 12/11/16. | + + CBC, WITH DIFFERENTIAL (07/05/2017 12:31 AM) + + + | Specimen | Performing Laboratory | + + + | Blood | | + + + + + | Narrative | + + | The following orders were created for panel order CBC, WITH DIFFERENTIAL. | | Procedure | | Abnormality Status | | --------- | | ------ CBC AND AUTO | | DIFF[[id number]] Abnormal Final | | result Please view results for these tests on the | | individual orders. | + + COMPLETE METABOLIC SET (NA,K,CL,CO2,BUN,CREAT,GLUC,CA,AST,ALT,BILI TOTAL,ALK PHOS,ALB,PROT TOTAL) (07/05/2017 12:31 AM) + + + + | Component | Value | Ref Range | + + + + | GLUCOSE, PLASMA | 218 (H) | 70 - 99 mg/dL | | (LAB) | | | + + + + | BUN, PLASMA (LAB) | 13 | 6 - 20 mg/dL | + + + + | CREATININE PLASMA | 0.40 (L) | 0.60 - 1.10 mg/dL | | (LAB) | | | + + + + | EGFR - | >60 | >60 mL/min | | JORDANIAN | | | + + + + | EGFR NON | >60 | >60 mL/min | | -JORDANIAN | | | + + + + | SODIUM, PLASMA (LAB) | 137 | 136 - 145 mmol/L | + + + + | POTASSIUM, PLASMA | 4.7 | 3.4 - 5.0 mmol/L | | [...] + + + | ALK PHOS | 174 (H) | 42 - 98 U/L | + + + + | AST(SGOT) | 324 (H) | <=41 U/L | + + + + | ALT (SGPT) | 326 (H) | <=60 U/L | + + + + | ANION GAP | 8 | 4 - 11 mmol/L | + + + + | [...] | + + + | Blood | [facility], [facility] [address] | | | [place] [address] | + + + + + | [...] kidney function | + + ANTIBODY SCREEN (07/04/2017 5:05 AM) + + + + | Component | Value | Ref Range | + + + + | Antibody Screen | Negative | | + + + + + + + | Specimen | Performing Laboratory | + + + | Blood | [facility], TRANSFUSION MEDICINE [address] [facility] | | | [place] [address] | + + + ABO & RH TYPE (07/04/2017 5:05 AM) + + + + | Component | Value | Ref Range | + + + + | ABO Group | O | | + + + + | Rh Type | Positive | | + + + + + + + | Specimen | Performing Laboratory | + + + | Blood | [facility], TRANSFUSION MEDICINE [address] [facility] | | | [place] [address] | + + + TYPE AND SCREEN (07/04/2017 5:05 AM) + + + | Specimen | Performing Laboratory | + + + | Blood | | + + + + + | Narrative | + + | The following orders were created for panel order TYPE AND SCREEN. | | Procedure | | Abnormality Status | | --------- | | ------ ABO & RH | | TYPE[[id number]] F | | inal result ANTIBODY | | SCREEN[[id number]] Fin | | al result Please view results for these tests on the | | individual orders. | + + PRODUCT - PLATELET PHERESIS LEUKOREDUCED (07/04/2017 4:07 AM) + + + + | Component | Value | Ref Range | + + + + | PRODUCT DESCRIPTION | APHERESIS | | | | PLATELETS,PAS,LEUKOREDUCED,IRRADIATED | | + + + + | PRODUCT UNIT # | [id number] | | + + + + | UNIT ABO | O | | + + + + | UNIT RH | POS | | + + + + | STATUS OF UNIT | Presumed Transfused | | + + + + | EXPIRATION DATE | [id number] | | + + + + | BLOOD TYPE BARCODE | 5100 | | + + + + | BLOOD PRODUCT CODE | [id number] | | + + + + + + + | Specimen | Performing Laboratory | + + + | | [facility], TRANSFUSION MEDICINE [address] [facility] | | | [place] [address] | + + + PRODUCT - RED CELLS LEUKOREDUCED (07/04/2017 4:07 AM) + + + + | Component | Value | Ref Range | + + + + | PRODUCT DESCRIPTION | -1 RED BLOOD CELLS ADENINE-SALINE ADDED | | | | LEUKOCYT | | + + + + | PRODUCT UNIT # | [id number] | | + + + + | UNIT ABO | O | | + + + + | UNIT RH | POS | | + + + + | STATUS OF UNIT | Presumed Transfused | | + + + + | EXPIRATION DATE | [id number] | | + + + + | BLOOD TYPE BARCODE | 5100 | | + + + + | BLOOD PRODUCT CODE | [id number] | | + + + + + + + | Specimen | Performing Laboratory | + + + | | [facility], TRANSFUSION MEDICINE [address] [facility] | | | [place] [address] | + + + RBC MORPHOLOGY (07/04/2017 12:40 AM) + + + + | Component | Value | Ref Range | + + + + | ANISOCYTOSIS | 2+(25-100cells/HPF) | | + + + + | MICROCYTOSIS | 2+(25-100cells/HPF) | | + + + + + + + | Specimen | Performing Laboratory | + + + | Blood | [facility], CORE [address] | | | [place] [address] | + + + MANUAL DIFFERENTIAL (07/04/2017 12:40 AM) + + + + | Component | Value | Ref Range | + + + + | NEUTROPHIL % | 32.5 (L) | 50.0 - 70.0 % | + + + + | LYMPHOCYTE % | 5.0 (L) | 18.0 - 42.0 % | + + + + | MONOCYTE % | 10.0 (H) | 3.5 - 9.0 % | + + + + | EOSINOPHIL % | 0.0 (L) | 1.0 - 3.0 % | + + + + | BASOPHIL % | 0.0 | 0.0 - 2.0 % | + + + + | IG% | 0.8Comment: Increased immature | 0.0 - 1.0 % | | | granulocytes(IG)define a left shift.IGs | | | | include metamyelocytes, myelocytes and | | | | promyelocytes. Bands are included in the | | | | neutrophil count, not the IG count, except | | | | in neonates <=60 days old where bands are | | | | reported in a manual diff. | | + + + + | ATYPICAL CELL % | 51.7 (HH) | 0.0 % | + + + + | NEUTROPHIL # | 0.18 (L) | 1.80 - 7.70 K/cu mm | + + + + | LYMPHOCYTE # | 0.03 (L) | 1.00 - 4.80 K/cu mm | + + + + | MONOCYTE # | 0.06 (L) | 0.10 - 0.90 K/cu mm | + + + + | EOSINOPHIL # | 0.00 | 0.00 - 0.50 K/cu mm | + + + + | BASOPHIL # | 0.00 | 0.00 - 0.10 K/cu mm | + + + + | IG# | 0.00 | 0.00 - 0.10 K/cu mm | + + + + | ATYPICAL CELLS # | 0.28 | K/cu mm | + + + + + + + | Specimen | Performing Laboratory | + + + | Blood | [facility], [address] | | | [place] [address] | + + + + + | Narrative | + + | New reference ranges for IG% and IG# effective 05/19/2017. Increased immature | | granulocytes(IG)define a left shift.IGs include metamyelocytes, myelocytes and | | promyelocytes. Bands are included in the neutrophil count, not the IG count, except in | | neonates <=60 days old where bands are reported in a manual diff. | + + CBC AND AUTO DIFF (07/04/2017 12:40 AM) + + + + | Component | Value | Ref Range | + + + + | WHITE CELL COUNT | 0.55 (L) | 3.50 - 10.80 K/cu mm | + + + + | RED CELL COUNT | 2.23 (L) | 4.00 - 5.20 M/cu mm | + + + + | HEMOGLOBIN | 6.7 (L) | 12.0 - 16.0 g/dL | + + + + | HEMATOCRIT | 19.9 (L) | 36.0 - 46.0 % | + + + + | MCV | 89.2 | 80.0 - 96.0 fL | + + + + | MCHC | 33.7 | 33.0 - 35.5 g/dL | + + + + | RDW SD | 56.2 (H) | 35.1 - 46.3 fL | [...] | + + + | Blood | [facility], [address] | | | [place], [place] [address] | + + + LDH TOTAL, PLASMA (07/04/2017 12:40 AM) + + + + | Component | Value | Ref Range | + + + + | LD TOTAL, PLASMA | 1,327 (H) | <=250 U/L | + + + + | LD CMNT | No Hemo | | + + + + + + + | Specimen | Performing Laboratory | + + + | Blood | [facility], [address] [place] [address] | | | [place], [place] [address] | + + + URIC ACID, PLASMA (07/04/2017 12:40 AM) + +-------+ + | Component | Value | Ref Range | + +-------+ + | URIC ACID, PLASMA | 2.7 | 2.5 - 6.2 mg/dL | | (LAB) | | | + +-------+ + + + + | Specimen | Performing Laboratory | + + + | Blood | [facility], [address] | | | [place] [address] | + + + PHOSPHORUS, PLASMA (07/04/2017 12:40 AM) + +-------+ + | Component | Value | Ref Range | + +-------+ + | PHOSPHORUS, PLASMA | 3.7 | 2.4 - 4.7 mg/dL | | (LAB) | | | + +-------+ + + + + | Specimen | Performing Laboratory | + + + | Blood | [facility], [address] | | | [place] [address] | + + + MAGNESIUM, PLASMA (07/04/2017 12:40 AM) + +---------+ + | Component | Value | Ref Range | + +---------+ + | MAGNESIUM,PLASMA | 2.7 (H) | 1.6 - 2.6 mg/dL | + +---------+ + + + + | Specimen | Performing Laboratory | + + + | Blood | [facility], [address] | | | [place] [address] | + + + + + | Narrative | + + | Reference range change effective 12/11/16. | + + CBC, WITH DIFFERENTIAL (07/04/2017 12:40 AM) + + + | Specimen | Performing Laboratory | + + + | Blood | | + + + + + | Narrative | + + | The following orders were created for panel order CBC, WITH DIFFERENTIAL. | | Procedure | | Abnormality Status | | --------- | | ------ CBC AND AUTO | | DIFF[[id number]] Abnormal Final | | result MANUAL | | DIFFERENTIAL[[id number]] Abnormal Final | | result RBC | | MORPHOLOGY[[id number]] | | Final result Please view results for these tests on the | | individual orders. | + + COMPLETE METABOLIC SET (NA,K,CL,CO2,BUN,CREAT,GLUC,CA,AST,ALT,BILI TOTAL,ALK PHOS,ALB,PROT TOTAL) (07/04/2017 12:40 AM) + + + + | Component | Value | Ref Range | + + + + | GLUCOSE, PLASMA | 182 (H) | 70 - 99 mg/dL | | (LAB) | | | + + + + | BUN, PLASMA (LAB) | 15 | 6 - 20 mg/dL | + + + + | CREATININE PLASMA | 0.40 (L) | 0.60 - 1.10 mg/dL | | (LAB) | | | + + + + | EGFR - | >60 | >60 mL/min | | JORDANIAN | | | + + + + | EGFR NON | >60 | >60 mL/min | | -JORDANIAN | | | + + + + [...] + + + + | CALCIUM(ALB | 9.1 | 8.6 - 10.2 mg/dL | | CORRECTED) | | | + + + + | BILIRUBIN TOTAL | 0.8 | 0.3 - 1.2 mg/dL | + + + + | TOTAL PROTEIN, | 5.6 (L) | 6.4 - 8.2 g/dL | | PLASMA (LAB) | | | + + + + | ALBUMIN, PLASMA | 2.6 (L) | 3.5 - 4.7 g/dL | | (LAB) | | | + + + + | ALK PHOS | 158 (H) | 42 - 98 U/L | + + + + | AST(SGOT) | 294 (H) | <=41 U/L | + + + + | ALT (SGPT) | 180 (H) | <=60 U/L | + + + + | ANION GAP | 7 | 4 - 11 mmol/L | + + + + | [...] | + + + | Blood | [facility] [address] | | | [place] [address] | + + + + + | [...] function | + + CBC (HEMOGRAM) ONLY (07/03/2017 5:03 AM) + + + + | Component | Value | Ref Range | + + + + | WHITE CELL COUNT | 1.91 (L) | 3.50 - 10.80 K/cu mm | + + + + | RED CELL COUNT | 2.11 (L) | 4.00 - 5.20 M/cu mm | + + + + | HEMOGLOBIN | 6.5 (L) | 12.0 - 16.0 g/dL | + + + + | HEMATOCRIT | 19.4 (L) | 36.0 - 46.0 % | + + + + | MCV | 91.9 | 80.0 - 96.0 fL | + + + + | MCHC | 33.5 | 33.0 - 35.5 g/dL | + + + + | RDW SD | 61.0 (H) | 35.1 - 46.3 fL | + + + + | PLATELET COUNT | 14 (L) | 150 - 400 K/cu mm | + + + + | MPV | 8.4 (L) | 9.7 - 12.3 fL | + + + + | NRBC% | 0.0 | 0.0 - 0.3 % | + + + + | NRBC# | 0.00 | 0.00 - 0.02 K/cu mm | + + + + + + + | Specimen | Performing Laboratory | + + + | Blood | [facility], CORE [address] [address] | | | [place] [address] | + + + URIC ACID, PLASMA (07/03/2017 5:03 AM) + +-------+ + | Component | Value | Ref Range | + +-------+ + | URIC ACID, PLASMA | 2.9 | 2.5 - 6.2 mg/dL | | (LAB) | | | + +-------+ + + + + | Specimen | Performing Laboratory | + + + | Blood | [facility], [facility] [address] | | | [place] [address] | + + + PHOSPHORUS, PLASMA (07/03/2017 5:03 AM) + +-------+ + | Component | Value | Ref Range | + +-------+ + | PHOSPHORUS, PLASMA | 3.4 | 2.4 - 4.7 mg/dL | | (LAB) | | | + +-------+ + + + + | Specimen | Performing Laboratory | + + + | Blood | [facility], CORE [address] | | | [place] [address] | + + + CBC ONLY (07/03/2017 5:03 AM) + + + | Specimen | Performing Laboratory | + + + | Blood | | + + + + + | Narrative | + + | The following orders were created for panel order CBC ONLY. | | Procedure | | Abnormality Status | | --------- | | ------ CBC (HEMOGRAM) | | ONLY[[id number]] Abnormal Final | | result Please view results for these tests on the | | individual orders. | + + BASIC METABOLIC SET (NA, K, CL, TCO2, BUN, CR, GLU, CA) (07/03/2017 5:03 AM) + + + + | Component | Value | Ref Range | + + + + | GLUCOSE, PLASMA | 173 (H) | 70 - 99 mg/dL | | (LAB) | | | + + + + | BUN, PLASMA (LAB) | 15 | 6 - 20 mg/dL | + + + + | CREATININE PLASMA | 0.46 (L) | 0.60 - 1.10 mg/dL | | (LAB) | | | + + + + | EGFR - | >60 | >60 mL/min | | JORDANIAN | | | + + + + | EGFR NON | >60 | >60 mL/min | | -JORDANIAN | | | + + + + [...] + | ANION GAP | 9 | 4 - 11 mmol/L | + + + + | POTASSIUM CMNT | No Hemo | | + + + + + + + | Specimen | Performing Laboratory | + + + | Blood | [facility], CORE [address] | | | [place] [address] | + + + + + | Narrative | + + | Adult glucose reference range change effective 7-. GFR is estimated using the | | [...] function | + + COAGULOPATHY PANEL (INR,APTT,FIBRINOGEN) (07/03/2017 5:03 AM) + +---------+ + | Component | Value | Ref Range | + +---------+ + | INR | 1.18 | 0.90 - 1.20 INR | + +---------+ + | APTT | 31.3 | 26.0 - 36.0 seconds | + +---------+ + | FIBRINOGEN LEVEL | 478 (H) | 200 - 450 mg/dL | + +---------+ + + + + | Specimen | Performing Laboratory | + + + | Blood | [facility], CORE [address] | | | [place] [address] | + + + + + | [...] 0.7 U/mL | + + PRODUCT - RED CELLS LEUKOREDUCED (07/03/2017 12:47 AM) + + + + | Component | Value | Ref Range | + + + + | PRODUCT DESCRIPTION | -1 RED BLOOD CELLS ADENINE-SALINE ADDED | | | | LEUKOCYT | | + + + + | PRODUCT UNIT # | [id number] | | + + + + | UNIT ABO | O | | + + + + | UNIT RH | POS | | + + + + | STATUS OF UNIT | Presumed Transfused | | + + + + | EXPIRATION DATE | [id number] | | + + + + | BLOOD TYPE BARCODE | 5100 | | + + + + | BLOOD PRODUCT CODE | [id number] | | + + + + + + + | Specimen | Performing Laboratory | + + + | | [facility], TRANSFUSION MEDICINE [address] [facility] | | | [address] [place] [address] | + + + D-DIMER, (PE OR DIC) (07/02/2017 11:37 PM) + + + + | Component | Value | Ref Range | + + + + | D-DIMER (PE OR DIC) | >4.00 (H) | <0.50 ug/mLFEU | + + + + + + + | Specimen | Performing Laboratory | + + + | Blood | [facility], CORE [address] | | | [place] [address] | + + + + + | Narrative | + + | D-Dimer Interpretation: <0.5 PE very unlikely 0.50-4.0 Seen in | | ill patients but not diagnostic of thrombosis. >4.0 Compatible with DIC but | | not diagnostic. If clinically indicated request titration of | | d-dimer. Values >8.0 are strongly suggestive of DIC. | + + RBC MORPHOLOGY (07/02/2017 11:36 PM) + + + + | Component | Value | Ref Range | + + + + | HYPOGRANULAR | Present | | | NEUTROPHILS | | | + + + + | ANISOCYTOSIS | 1+(10-25cells/HPF) | | + + + + | SCHISTOCYTES | 1+ (<1-2cells/HPF) | | + + + + | TEAR DROP CELLS | 1+ (<1-2cells/HPF) | | + + + + + + + | Specimen | Performing Laboratory | + + + | Blood | [facility], CORE [address] | | | [place] [address] | + + + MANUAL DIFFERENTIAL (07/02/2017 11:36 PM) + + + + | Component | Value | Ref Range | + + + + | NEUTROPHIL % | 25.7 (L) | 50.0 - 70.0 % | + + + + | LYMPHOCYTE % | 5.3 (L) | 18.0 - 42.0 % | + + + + | MONOCYTE % | 0.9 (L) | 3.5 - 9.0 % | + + + + | EOSINOPHIL % | 0.0 (L) | 1.0 - 3.0 % | + + + + | BASOPHIL % | 0.0 | 0.0 - 2.0 % | + + + + | IG% | 0.0Comment: Increased immature | 0.0 - 1.0 % | | | granulocytes(IG)define a left shift.IGs | | | | include metamyelocytes, myelocytes and | | | | promyelocytes. Bands are included in the | | | | neutrophil count, not the IG count, except | | | | in neonates <=60 days old where bands are | | | | reported in a manual diff. | | + + + + | ATYPICAL CELL % | 68.1 ()Comment: Atypical Cells with fine | 0.0 % | | | chromatin, high N-C ratio, prominent | | | | nucleoli and dark blue cytoplasm. | | + + + + | NEUTROPHIL # | 0.90 (L) | 1.80 - 7.70 K/cu mm | + + + + | LYMPHOCYTE # | 0.19 (L) | 1.00 - 4.80 K/cu mm | + + + + | MONOCYTE # | 0.03 (L) | 0.10 - 0.90 K/cu mm | + + + + | EOSINOPHIL # | 0.00 | 0.00 - 0.50 K/cu mm | + + + + | BASOPHIL # | 0.00 | 0.00 - 0.10 K/cu mm | + + + + | IG# | 0.00 | 0.00 - 0.10 K/cu mm | + + + + | ATYPICAL CELLS # | 2.40 | K/cu mm | + + + + + + + | Specimen | Performing Laboratory | + + + | Blood | [facility], CORE [address] | | | [place] [address] | + + + + + | Narrative | + + | New reference ranges for IG% and IG# effective 05/19/2017. Increased immature | | granulocytes(IG)define a left shift.IGs include metamyelocytes, myelocytes and | | promyelocytes. Bands are included in the neutrophil count, not the IG count, except in | | neonates <=60 days old where bands are reported in a manual diff. | + + CBC AND AUTO DIFF (07/02/2017 11:36 PM) + + + + | Component | Value | Ref Range | + + + + | WHITE CELL COUNT | 3.52 | 3.50 - 10.80 K/cu mm | + + + + | RED CELL COUNT | 2.09 (L) | 4.00 - 5.20 M/cu mm | + + + + | HEMOGLOBIN | 6.4 (L) | 12.0 - 16.0 g/dL | + + + + | HEMATOCRIT | 19.2 (L) | 36.0 - 46.0 % | + + + + | MCV | 91.9 | 80.0 - 96.0 fL | + + + + | MCHC | 33.3 | 33.0 - 35.5 g/dL | + + + + | RDW SD | 60.2 (H) | 35.1 - 46.3 fL | [...] | + + + | Blood | [facility], CORE [address] | | | [place] [address] | + + + URIC ACID, PLASMA (07/02/2017 11:36 PM) + +-------+ + | Component | Value | Ref Range | + +-------+ + | URIC ACID, PLASMA | 2.6 | 2.5 - 6.2 mg/dL | | (LAB) | | | + +-------+ + + + + | Specimen | Performing Laboratory | + + + | Blood | [facility], CORE [address] [place] [address] | | | [place] [address] | + + + PHOSPHORUS, PLASMA (07/02/2017 11:36 PM) + +-------+ + | Component | Value | Ref Range | + +-------+ + | PHOSPHORUS, PLASMA | 3.5 | 2.4 - 4.7 mg/dL | | (LAB) | | | + +-------+ + + + + | Specimen | Performing Laboratory | + + + | Blood | [facility], CORE [address] | | | [place] [address] | + + + LDH TOTAL, PLASMA (07/02/2017 11:36 PM) + + + + | Component | Value | Ref Range | + + + + | LD TOTAL, PLASMA | 1,606 (H) | <=250 U/L | + + + + | LD CMNT | No Hemo | | + + + + + + + | Specimen | Performing Laboratory | + + + | Blood | [facility], CORE [address] | | | [place] [address] | + + + MAGNESIUM, PLASMA (07/02/2017 11:36 PM) + +---------+ + | Component | Value | Ref Range | + +---------+ + | MAGNESIUM,PLASMA | 2.8 (H) | 1.6 - 2.6 mg/dL | + +---------+ + + + + | Specimen | Performing Laboratory | + + + | Blood | [facility], CORE [address] | | | [place] [address] | + + + + + | Narrative | + + | Reference range change effective 12/11/16. | + + CBC, WITH DIFFERENTIAL (07/02/2017 11:36 PM) + + + | Specimen | Performing Laboratory | + + + | Blood | | + + + + + | Narrative | + + | The following orders were created for panel order CBC, WITH DIFFERENTIAL. | | Procedure | | Abnormality Status | | --------- | | ------ CBC AND AUTO | | DIFF[[id number]] Abnormal Final | | result MANUAL | | DIFFERENTIAL[[id number]] Abnormal Final | | result RBC | | MORPHOLOGY[[id number]] | | Final result Please view results for these tests on the | | individual orders. | + + COMPLETE METABOLIC SET (NA,K,CL,CO2,BUN,CREAT,GLUC,CA,AST,ALT,BILI TOTAL,ALK PHOS,ALB,PROT TOTAL) (07/02/2017 11:36 PM) + + + + | Component | Value | Ref Range | + + + + | GLUCOSE, PLASMA | 163 (H) | 70 - 99 mg/dL | | (LAB) | | | + + + + | BUN, PLASMA (LAB) | 15 | 6 - 20 mg/dL | + + + + | CREATININE PLASMA | 0.42 (L) | 0.60 - 1.10 mg/dL | | (LAB) | | | + + + + | EGFR - | >60 | >60 mL/min | | JORDANIAN | | | + + + + | EGFR NON | >60 | >60 mL/min | | -JORDANIAN | | | + + + + | SODIUM, PLASMA (LAB) | 137 | 136 - 145 mmol/L | + + + + | POTASSIUM, PLASMA | 4.2 | 3.4 - 5.0 mmol/L | | (LAB) | | | + + + + | CHLORIDE, PLASMA | 102 | 97 - 108 mmol/L | | (LAB) | | | + + + + | TOTAL CO2, PLASMA | 23 | 21 - 32 mmol/L | | (LAB) | | | + + + + | CALCIUM, PLASMA | 7.9 (L) | 8.6 - 10.2 mg/dL | [...] + + + | ALT (SGPT) | 27 | <=60 U/L | + + + + | ANION GAP | 12 (H) | 4 - 11 mmol/L | + + + + | ANION GAP(ALB | 15 (H) | 4 - 11 mmol/L | [...] | + + + | Blood | [facility], CORE [address] | | | [place] [address] | + + + + + | [...] function | + + COAGULOPATHY PANEL (INR,APTT,FIBRINOGEN) (07/02/2017 11:36 PM) + + + + | Component | Value | Ref Range | + + + + | INR | 1.25 (H) | 0.90 - 1.20 INR | + + + + | APTT | 34.4 | 26.0 - 36.0 seconds | + + + + | FIBRINOGEN LEVEL | 471 (H) | 200 - 450 mg/dL | + + + + + + + | Specimen | Performing Laboratory | + + + | Blood | [facility], CORE [address] | | | [place] [address] | + + + + + | [...] U/mL | + + CBC (HEMOGRAM) ONLY (07/02/2017 6:39 PM) + + + + | Component | Value | Ref Range | + + + + | WHITE CELL COUNT | 7.50 | 3.50 - 10.80 K/cu mm | + + + + | RED CELL COUNT | 2.34 (L) | 4.00 - 5.20 M/cu mm | + + + + | HEMOGLOBIN | 7.0 (L) | 12.0 - 16.0 g/dL | + + + + | HEMATOCRIT | 21.4 (L) | 36.0 - 46.0 % | + + + + | MCV | 91.5 | 80.0 - 96.0 fL | + + + + | MCHC | 32.7 | 33.0 - 35.5 g/dL | + + + + | RDW SD | 60.5 (H) | 35.1 - 46.3 fL | + + + + | PLATELET COUNT | 21 (L) | 150 - 400 K/cu mm | + + + + | MPV | 10.8 | 9.7 - 12.3 fL | + + + + | NRBC% | 0.0 | 0.0 - 0.3 % | + + + + | NRBC# | 0.00 | 0.00 - 0.02 K/cu mm | + + + + + + + | Specimen | Performing Laboratory | + + + | Blood | [facility], CORE [address] [place] [address] | | | [place] [address] | + + + URIC ACID, PLASMA (07/02/2017 6:39 PM) + +---------+ + | Component | Value | Ref Range | + +---------+ + | URIC ACID, PLASMA | 2.2 (L) | 2.5 - 6.2 mg/dL | | (LAB) | | | + +---------+ + + + + | Specimen | Performing Laboratory | + + + | Blood | [facility], CORE [address] [facility] | | | [place] [address] | + + + PHOSPHORUS, PLASMA (07/02/2017 6:39 PM) + +-------+ + | Component | Value | Ref Range | + +-------+ + | PHOSPHORUS, PLASMA | 3.4 | 2.4 - 4.7 mg/dL | | (LAB) | | | + +-------+ + + + + | Specimen | Performing Laboratory | + + + | Blood | [facility], CORE [address] | | | [place] [address] | + + + CBC ONLY (07/02/2017 6:39 PM) + + + | Specimen | Performing Laboratory | + + + | Blood | | + + + + + | Narrative | + + | The following orders were created for panel order CBC ONLY. | | Procedure | | Abnormality Status | | --------- | | ------ CBC (HEMOGRAM) | | ONLY[[id number]] Abnormal Final | | result Please view results for these tests on the | | individual orders. | + + BASIC METABOLIC SET (NA, K, CL, TCO2, BUN, CR, GLU, CA) (07/02/2017 6:39 PM) + + + + | Component | Value | Ref Range | + + + + | GLUCOSE, PLASMA | 145 (H) | 70 - 99 mg/dL | | (LAB) | | | + + + + | BUN, PLASMA (LAB) | 16 | 6 - 20 mg/dL | + + + + | CREATININE PLASMA | 0.48 (L) | 0.60 - 1.10 mg/dL | | (LAB) | | | + + + + | EGFR - | >60 | >60 mL/min | | JORDANIAN | | | + + + + | EGFR NON | >60 | >60 mL/min | | -JORDANIAN | | | + + + + [...] + | ANION GAP | 8 | 4 - 11 mmol/L | + + + + | POTASSIUM CMNT | No Hemo | | + + + + + + + | Specimen | Performing Laboratory | + + + | Blood | [facility], CORE [address] | | | [place] [address] | + + + + + | [...] function | + + COAGULOPATHY PANEL (INR,APTT,FIBRINOGEN) (07/02/2017 6:39 PM) + + + + | Component | Value | Ref Range | + + + + | INR | 1.27 (H) | 0.90 - 1.20 INR | + + + + | APTT | 34.4 | 26.0 - 36.0 seconds | + + + + | FIBRINOGEN LEVEL | 520 (H) | 200 - 450 mg/dL | + + + + + + + | Specimen | Performing Laboratory | + + + | Blood | [facility], CORE [address] | | | [place] [address] | + + + + + | [...] U/mL | + + CBC (HEMOGRAM) ONLY (07/02/2017 12:38 PM) + + + + | Component | Value | Ref Range | + + + + | WHITE CELL COUNT | 10.75 | 3.50 - 10.80 K/cu mm | + + + + | RED CELL COUNT | 2.27 (L) | 4.00 - 5.20 M/cu mm | + + + + | HEMOGLOBIN | 6.8 (L) | 12.0 - 16.0 g/dL | + + + + | HEMATOCRIT | 21.1 (L) | 36.0 - 46.0 % | + + + + | MCV | 93.0 | 80.0 - 96.0 fL | + + + + | MCHC | 32.2 | 33.0 - 35.5 g/dL | + + + + | RDW SD | 61.9 (H) | 35.1 - 46.3 fL | + + + + | PLATELET COUNT | 28 (L)Comment: Macroplatelets present. | 150 - 400 K/cu mm | + + + + | MPV | 9.0 (L) | 9.7 - 12.3 fL | + + + + | NRBC% | 0.0 | 0.0 - 0.3 % | + + + + | NRBC# | 0.00 | 0.00 - 0.02 K/cu mm | + + + + + + + | Specimen | Performing Laboratory | + + + | Blood | [facility], CORE [address] | | | [place] [address] | + + + URIC ACID, PLASMA (07/02/2017 12:38 PM) + +-------+ + | Component | Value | Ref Range | + +-------+ + | URIC ACID, PLASMA | 3.0 | 2.5 - 6.2 mg/dL | | (LAB) | | | + +-------+ + + + + | Specimen | Performing Laboratory | + + + | Blood | [facility], CORE [address] [place] [address] | | | [place] [address] | + + + PHOSPHORUS, PLASMA (07/02/2017 12:38 PM) + +-------+ + | Component | Value | Ref Range | + +-------+ + | PHOSPHORUS, PLASMA | 3.8 | 2.4 - 4.7 mg/dL | | (LAB) | | | + +-------+ + + + + | Specimen | Performing Laboratory | + + + | Blood | [facility], CORE [address] [place] [address] | | | [place], [place] [address] | + + + CBC ONLY (07/02/2017 12:38 PM) + + + | Specimen | Performing Laboratory | + + + | Blood | | + + + + + | Narrative | + + | The following orders were created for panel order CBC ONLY. | | Procedure | | Abnormality Status | | --------- | | ------ CBC (HEMOGRAM) | | ONLY[[id number]] Abnormal Final | | result Please view results for these tests on the | | individual orders. | + + BASIC METABOLIC SET (NA, K, CL, TCO2, BUN, CR, GLU, CA) (07/02/2017 12:38 PM) + + + + | Component | Value | Ref Range | + + + + | GLUCOSE, PLASMA | 158 (H) | 70 - 99 mg/dL | | (LAB) | | | + + + + | BUN, PLASMA (LAB) | 17 | 6 - 20 mg/dL | + + + + | CREATININE PLASMA | 0.51 (L) | 0.60 - 1.10 mg/dL | | (LAB) | | | + + + + | EGFR - | >60 | >60 mL/min | | JORDANIAN | | | + + + + | EGFR NON | >60 | >60 mL/min | | -JORDANIAN | | | + + + + | SODIUM, PLASMA (LAB) | 135 [...] + | ANION GAP | 10 | 4 - 11 mmol/L | + + + + | POTASSIUM CMNT | No Hemo | | + + + + + + + | Specimen | Performing Laboratory | + + + | Blood | [facility], CORE [address] | | | [place] [address] | + + + + + | [...] Rapidly changing kidney function | + + LDH TOTAL, PLASMA (07/02/2017 12:38 PM) + + + + | Component | Value | Ref Range | + + + + | LD TOTAL, PLASMA | 1,771 (H) | <=250 U/L | + + + + | LD CMNT | No Hemo | | + + + + + + + | Specimen | Performing Laboratory | + + + | Blood | [facility], CORE [address] [facility] | | | [place] [address] | + + + D-DIMER, (PE OR DIC) (07/02/2017 12:38 PM) + + + + | Component | Value | Ref Range | + + + + | D-DIMER (PE OR DIC) | >4.00 (H) | <0.50 ug/mLFEU | + + + + + + + | Specimen | Performing Laboratory | + + + | Blood | [facility], CORE [address] | | | [place] [address] | + + + + + | Narrative | + + | D-Dimer Interpretation: <0.5 PE very unlikely 0.50-4.0 Seen in | | ill patients but not diagnostic of thrombosis. >4.0 Compatible with DIC but | | not diagnostic. If clinically indicated request titration of | | d-dimer. Values >8.0 are strongly suggestive of DIC. | + + COAGULOPATHY PANEL (INR,APTT,FIBRINOGEN) (07/02/2017 12:38 PM) + + + + | Component | Value | Ref Range | + + + + | INR | 1.31 (H) | 0.90 - 1.20 INR | + + + + | APTT | 35.2 | 26.0 - 36.0 seconds | + + + + | FIBRINOGEN LEVEL | 494 (H) | 200 - 450 mg/dL | + + + + + + + | Specimen | Performing Laboratory | + + + | Blood | [facility], CORE [address] [place] [address] | | | [place] [address] | + + + + + | [...] + + PRODUCT - PLATELET PHERESIS LEUKOREDUCED (07/02/2017 7:18 AM) + + + + | Component | Value | Ref Range | + + + + | PRODUCT DESCRIPTION | PLATELETS PHERESIS, LEUKOCYTE REDUCED, | | | | IRRADIATED | | + + + + | PRODUCT UNIT # | [id number] | | + + + + | UNIT ABO | O | | + + + + | UNIT RH | POS | | + + + + | STATUS OF UNIT | Returned to Blood Bank | | + + + + | EXPIRATION DATE | [id number] | | + + + + | BLOOD TYPE BARCODE | 5100 | | + + + + | BLOOD PRODUCT CODE | [id number] | | + + + + + + + | Specimen | Performing Laboratory | + + + | | [facility], TRANSFUSION MEDICINE [address] [facility] | | | [place] [address] | + + + PRODUCT - PLATELET PHERESIS LEUKOREDUCED (07/02/2017 7:08 AM) + + + + | Component | Value | Ref Range | + + + + | PRODUCT DESCRIPTION | PLATELETS PHERESIS, LEUKOCYTE REDUCED, | | | | IRRADIATED | | + + + + | PRODUCT UNIT # | [id number] | | + + + + | UNIT ABO | A | | + + + + | UNIT RH | NEG | | + + + + | STATUS OF UNIT | Presumed Transfused | | + + + + | EXPIRATION DATE | [id number] | | + + + + | BLOOD TYPE BARCODE | 0600 | | + + + + | BLOOD PRODUCT CODE | [id number] | | + + + + + + + | Specimen | Performing Laboratory | + + + | | [facility] [address] [facility] | | | [place] [address] | + + + CBC (HEMOGRAM) ONLY (07/02/2017 6:26 AM) + + + + | Component | Value | Ref Range | + + + + | WHITE CELL COUNT | 12.38 (H) | 3.50 - 10.80 K/cu mm | + + + + | RED CELL COUNT | 2.33 (L) | 4.00 - 5.20 M/cu mm | + + + + | HEMOGLOBIN | 7.1 (L) | 12.0 - 16.0 g/dL | + + + + | HEMATOCRIT | 21.4 (L) | 36.0 - 46.0 % | + + + + | MCV | 91.8 | 80.0 - 96.0 fL | + + + + | MCHC | 33.2 | 33.0 - 35.5 g/dL | + + + + | RDW SD | 61.6 (H) | 35.1 - 46.3 fL | [...] | + + + | Blood | [facility] [address] [facility] | | | [place] [address] | + + + D-DIMER, (PE OR DIC) (07/02/2017 6:26 AM) + + + + | Component | Value | Ref Range | + + + + | D-DIMER (PE OR DIC) | >4.00 (H) | <0.50 ug/mLFEU | + + + + + + + | Specimen | Performing Laboratory | + + + | Blood | [facility] [address] [facility] [address] | | | [place] [address] | + + + + + | Narrative | + + | D-Dimer Interpretation: <0.5 PE very unlikely 0.50-4.0 Seen in | | ill patients but not diagnostic of thrombosis. >4.0 Compatible with DIC but | | not diagnostic. If clinically indicated request titration of | | d-dimer. Values >8.0 are strongly suggestive of DIC. | + + CBC ONLY (07/02/2017 6:26 AM) + + + | Specimen | Performing Laboratory | + + + | Blood | | + + + + + | Narrative | + + | The following orders were created for panel order CBC ONLY. | | Procedure | | Abnormality Status | | --------- | | ------ CBC (HEMOGRAM) | | ONLY[[id number]] Abnormal Final | | result Please view results for these tests on the | | individual orders. | + + COAGULOPATHY PANEL (INR,APTT,FIBRINOGEN) (07/02/2017 6:26 AM) + + + + | Component | Value | Ref Range | + + + + | INR | 1.47 (H) | 0.90 - 1.20 INR | + + + + | APTT | 39.2 (H) | 26.0 - 36.0 seconds | + + + + | FIBRINOGEN LEVEL | 494 (H) | 200 - 450 mg/dL | + + + + + + + | Specimen | Performing Laboratory | + + + | Blood | [facility] [address] [facility] [address] | | | [place] [address] | + + + + + | [...] 0.7 U/mL | + + PHOSPHORUS, PLASMA (07/02/2017 6:26 AM) + +-------+ + | Component | Value | Ref Range | + +-------+ + | PHOSPHORUS, PLASMA | 3.6 | 2.4 - 4.7 mg/dL | | (LAB) | | | + +-------+ + + + + | Specimen | Performing Laboratory | + + + | Blood | [facility] [address] | | | [place] [address] | + + + URIC ACID, PLASMA (07/02/2017 6:26 AM) + +-------+ + | Component | Value | Ref Range | + +-------+ + | URIC ACID, PLASMA | 3.4 | 2.5 - 6.2 mg/dL | | (LAB) | | | + +-------+ + + + + | Specimen | Performing Laboratory | + + + | Blood | [facility] [address] [facility] | | | [place] [address] | + + + BASIC METABOLIC SET (NA, K, CL, TCO2, BUN, CR, GLU, CA) (07/02/2017 6:26 AM) + + + + | Component | Value | Ref Range | + + + + | GLUCOSE, PLASMA | 197 (H) | 70 - 99 mg/dL | | (LAB) | | | + + + + | BUN, PLASMA (LAB) | 18 | 6 - 20 mg/dL | + + + + | CREATININE PLASMA | 0.47 (L) | 0.60 - 1.10 mg/dL | | (LAB) | | | + + + + | EGFR - | >60 | >60 mL/min | | JORDANIAN | | | + + + + | EGFR NON | >60 | >60 mL/min | | -JORDANIAN | | | + + + + | SODIUM, PLASMA (LAB) | 137 | 136 - 145 mmol/L | + + + + | POTASSIUM, PLASMA | 4.4 | 3.4 - 5.0 mmol/L | | [...] + | ANION GAP | 8 | 4 - 11 mmol/L | + + + + | POTASSIUM CMNT | No Hemo | | + + + + + + + | Specimen | Performing Laboratory | + + + | Blood | [facility] [address] | | | [place] [address] | + + + + + | [...] Rapidly changing kidney function | + + RBC MORPHOLOGY (07/01/2017 11:18 PM) + + + + | Component | Value | Ref Range | + + + + | ANISOCYTOSIS | 1+(10-25cells/HPF) | | + + + + + + + | Specimen | Performing Laboratory | + + + | Blood | [facility], [address] | | | [place] [address] | + + + MANUAL DIFFERENTIAL (07/01/2017 11:18 PM) + + + + | Component | Value | Ref Range | + + + + | NEUTROPHIL % | 13.2 (L) | 50.0 - 70.0 % | + + + + | LYMPHOCYTE % | 6.1 (L) | 18.0 - 42.0 % | + + + + | MONOCYTE % | 0.9 (L) | 3.5 - 9.0 % | + + + + | EOSINOPHIL % | 0.0 (L) | 1.0 - 3.0 % | + + + + | BASOPHIL % | 0.0 | 0.0 - 2.0 % | + + + + | IG% | 0.0Comment: Increased immature | 0.0 - 1.0 % | | | granulocytes(IG)define a left shift.IGs | | | | include metamyelocytes, myelocytes and | | | | promyelocytes. Bands are included in the | | | | neutrophil count, not the IG count, except | | | | in neonates <=60 days old where bands are | | | | reported in a manual diff. | | + + + + | ATYPICAL CELL % | 79.8 ()Comment: Atypical Cells with fine | 0.0 % | | | chromatin, high N-C ratio, prominent | | | | nucleoli and dark blue cytoplasm. | | + + + + | NEUTROPHIL # | 2.29 | 1.80 - 7.70 K/cu mm | + + + + | LYMPHOCYTE # | 1.06 | 1.00 - 4.80 K/cu mm | + + + + | MONOCYTE # | 0.16 | 0.10 - 0.90 K/cu mm | + + + + | EOSINOPHIL # | 0.00 | 0.00 - 0.50 K/cu mm | + + + + | BASOPHIL # | 0.00 | 0.00 - 0.10 K/cu mm | + + + + | IG# | 0.00 | 0.00 - 0.10 K/cu mm | + + + + | ATYPICAL CELLS # | 13.85 | K/cu mm | + + + + + + + | Specimen | Performing Laboratory | + + + | Blood | [facility], [place] [address] [facility] | | | [place] [address] | + + + + + | Narrative | + + | New reference ranges for IG% and IG# effective 05/19/2017. Increased immature | | granulocytes(IG)define a left shift.IGs include metamyelocytes, myelocytes and | | promyelocytes. Bands are included in the neutrophil count, not the IG count, except in | | neonates <=60 days old where bands are reported in a manual diff. | + + CBC AND AUTO DIFF (07/01/2017 11:18 PM) + + + + | Component | Value | Ref Range | + + + + | WHITE CELL COUNT | 17.35 (H) | 3.50 - 10.80 K/cu mm | + + + + | RED CELL COUNT | 2.47 (L) | 4.00 - 5.20 M/cu mm | + + + + | HEMOGLOBIN | 7.4 (L) | 12.0 - 16.0 g/dL | + + + + | HEMATOCRIT | 22.8 (L) | 36.0 - 46.0 % | + + + + | MCV | 92.3 | 80.0 - 96.0 fL | + + + + | MCHC | 32.5 | 33.0 - 35.5 g/dL | + + + + | RDW SD | 60.8 (H) | 35.1 - 46.3 fL | + + + + | PLATELET COUNT | 12 (L)Comment: Macroplatelets present. | 150 - 400 K/cu mm [...] | + + + | Blood | [facility], [place] [address] [place] [address] | | | [place] [address] | + + + URIC ACID, PLASMA (07/01/2017 11:18 PM) + +---------+ + | Component | Value | Ref Range | + +---------+ + | URIC ACID, PLASMA | 2.0 (L) | 2.5 - 6.2 mg/dL | | (LAB) | | | + +---------+ + + + + | Specimen | Performing Laboratory | + + + | Blood | [facility], [address] | | | [place] [address] | + + + PHOSPHORUS, PLASMA (07/01/2017 11:18 PM) + +-------+ + | Component | Value | Ref Range | + +-------+ + | PHOSPHORUS, PLASMA | 3.5 | 2.4 - 4.7 mg/dL | | (LAB) | | | + +-------+ + + + + | Specimen | Performing Laboratory | + + + | Blood | [facility], [address] [address] | | | [place] [address] | + + + LDH TOTAL, PLASMA (07/01/2017 11:18 PM) + + + + | Component | Value | Ref Range | + + + + | LD TOTAL, PLASMA | 1,581 (H) | <=250 U/L | + + + + | LD CMNT | No Hemo | | + + + + + + + | Specimen | Performing Laboratory | + + + | Blood | [facility], [place] [address] [place] [address] | | | [place] [address] | + + + MAGNESIUM, PLASMA (07/01/2017 11:18 PM) + +---------+ + | Component | Value | Ref Range | + +---------+ + | MAGNESIUM,PLASMA | 2.8 (H) | 1.6 - 2.6 mg/dL | + +---------+ + + + + | Specimen | Performing Laboratory | + + + | Blood | [facility], [address] | | | [place] [address] | + + + + + | Narrative | + + | Reference range change effective 12/11/16. | + + CBC, WITH DIFFERENTIAL (07/01/2017 11:18 PM) + + + | Specimen | Performing Laboratory | + + + | Blood | | + + + + + | Narrative | + + | The following orders were created for panel order CBC, WITH DIFFERENTIAL. | | Procedure | | Abnormality Status | | --------- | | ------ CBC AND AUTO | | DIFF[[id number]] Abnormal Final | | result MANUAL | | DIFFERENTIAL[[id number]] Abnormal Final | | result RBC | | MORPHOLOGY[[id number]] | | Final result Please view results for these tests on the | | individual orders. | + + COMPLETE METABOLIC SET (NA,K,CL,CO2,BUN,CREAT,GLUC,CA,AST,ALT,BILI TOTAL,ALK PHOS,ALB,PROT TOTAL) (07/01/2017 11:18 PM) + + + + | Component | Value | Ref Range | + + + + | GLUCOSE, PLASMA | 180 (H) | 70 - 99 mg/dL | | (LAB) | | | + + + + | BUN, PLASMA (LAB) | 12 | 6 - 20 mg/dL | + + + + | CREATININE PLASMA | 0.51 (L) | 0.60 - 1.10 mg/dL | | (LAB) | | | + + + + | EGFR - | >60 | >60 mL/min | | JORDANIAN | | | + + + + | EGFR NON | >60 | >60 mL/min | | -JORDANIAN | | | + + + + [...] + + + | CALCIUM, PLASMA | 8.3 (L) | 8.6 - 10.2 mg/dL | | (LAB) | | | + + + + | CALCIUM(ALB | 9.3 | 8.6 - 10.2 mg/dL | | CORRECTED) | | | + + + + | BILIRUBIN TOTAL | 0.3 | 0.3 - 1.2 mg/dL | + + + + | TOTAL PROTEIN, | 5.8 (L) | 6.4 - 8.2 g/dL | | PLASMA (LAB) | | | + + + + | ALBUMIN, PLASMA | 2.7 (L) | 3.5 - 4.7 g/dL | | (LAB) | | | + + + + | ALK PHOS | 179 (H) | 42 - 98 U/L | + + + + | AST(SGOT) | 51 (H) | <=41 U/L | + + + + | ALT (SGPT) | 29 | <=60 U/L | + + + + | ANION GAP | 9 | 4 - 11 mmol/L | + + + + | [...] | + + + | Blood | [facility], [place] [address] | | | [place] [address] | + + + + + | [...] function | + + CBC (HEMOGRAM) ONLY (07/01/2017 6:19 PM) + + + + | Component | Value | Ref Range | + + + + | WHITE CELL COUNT | 23.43 (H) | 3.50 - 10.80 K/cu mm | + + + + | RED CELL COUNT | 2.59 (L) | 4.00 - 5.20 M/cu mm | + + + + | HEMOGLOBIN | 7.9 (L) | 12.0 - 16.0 g/dL | + + + + | HEMATOCRIT | 24.0 (L) | 36.0 - 46.0 % | + + + + | MCV | 92.7 | 80.0 - 96.0 fL | + + + + | MCHC | 32.9 | 33.0 - 35.5 g/dL | + + + + | RDW SD | 62.3 (H) | 35.1 - 46.3 fL | [...] | + + + | Blood | [facility], [address] [address] | | | [place] [address] | + + + CBC ONLY (07/01/2017 6:19 PM) + + + | Specimen | Performing Laboratory | + + + | Blood | | + + + + + | Narrative | + + | The following orders were created for panel order CBC ONLY. | | Procedure | | Abnormality Status | | --------- | | ------ CBC (HEMOGRAM) | | ONLY[[id number]] Abnormal Final | | result Please view results for these tests on the | | individual orders. | + + COAGULOPATHY PANEL (INR,APTT,FIBRINOGEN) (07/01/2017 6:19 PM) + + + + | Component | Value | Ref Range | + + + + | INR | 1.15 | 0.90 - 1.20 INR | + + + + | APTT | 38.5 (H) | 26.0 - 36.0 seconds | + + + + | FIBRINOGEN LEVEL | 581 (H) | 200 - 450 mg/dL | + + + + + + + | Specimen | Performing Laboratory | + + + | Blood | [facility], [address] | | | [place] [address] | + + + + + | [...] 0.7 U/mL | + + PHOSPHORUS, PLASMA (07/01/2017 6:19 PM) + +-------+ + | Component | Value | Ref Range | + +-------+ + | PHOSPHORUS, PLASMA | 2.5 | 2.4 - 4.7 mg/dL | | (LAB) | | | + +-------+ + + + + | Specimen | Performing Laboratory | + + + | Blood | [facility], [place] [address] [place] [address] | | | [place] [address] | + + + URIC ACID, PLASMA (07/01/2017 6:19 PM) + +---------+ + | Component | Value | Ref Range | + +---------+ + | URIC ACID, PLASMA | 1.1 (L) | 2.5 - 6.2 mg/dL | | (LAB) | | | + +---------+ + + + + | Specimen | Performing Laboratory | + + + | Blood | [facility], [address] | | | [place] [address] | + + + BASIC METABOLIC SET (NA, K, CL, TCO2, BUN, CR, GLU, CA) (07/01/2017 6:19 PM) + + + + | Component | Value | Ref Range | + + + + | GLUCOSE, PLASMA | 156 (H) | 70 - 99 mg/dL | | (LAB) | | | + + + + | BUN, PLASMA (LAB) | 9 | 6 - 20 mg/dL | + + + + | CREATININE PLASMA | 0.45 (L) | 0.60 - 1.10 mg/dL | | (LAB) | | | + + + + | EGFR - | >60 | >60 mL/min | | JORDANIAN | | | + + + + | EGFR NON | >60 | >60 mL/min | | -JORDANIAN | | | + + + + | SODIUM, PLASMA (LAB) | 134 (L) | 136 - 145 mmol/L | + + + + | POTASSIUM, PLASMA | 3.7 | 3.4 - 5.0 mmol/L | | (LAB) | | | + + + + | CHLORIDE, PLASMA | 97 | 97 - 108 mmol/L | | (LAB) | | | + + + + | TOTAL CO2, PLASMA | 29 | 21 - 32 mmol/L | | (LAB) | | | + + + + | CALCIUM, PLASMA | 8.2 (L) | 8.6 - 10.2 mg/dL | | (LAB) | | | + + + + | ANION GAP | 8 | 4 - 11 mmol/L | + + + + | POTASSIUM CMNT | No Hemo | | + + + + + + + | Specimen | Performing Laboratory | + + + | Blood | [facility], [place] [address] | | | [place] [address] | + + + + + | [...] changing kidney function | + + CULTURE, URINE [place] (07/01/2017 4:13 PM) + + + + | Component | Value | Ref Range | + + + + | URINE CULTURE [facility] | No growth (<1000 cfu/mL) after 24 hours | | + + + + + + + | Specimen | Performing Laboratory | + + + | Urine | [facility], [address] [address] | | | [place] [address] | + + + URINE SCREEN FOR CULTURE (07/01/2017 4:13 PM) + + + + | Component | Value | Ref Range | + + + + | CULT, URINE SCREEN | Positive (A) | Negative | + + + + + + + | Specimen | Performing Laboratory | + + + | Urine | [facility], [facility] [address] | | | [place] [address] | + + + + + | Narrative | + + | Culture Screen Positive, specimen sent for culture. | + + URINE, MICROSCOPIC EXAM (07/01/2017 4:13 PM) + +---------+ + | Component | Value | Ref Range | + +---------+ + | RED CELLS | 3 | 0 - 3 /hpf | + +---------+ + | WHITE CELLS | 2 | 0 - 5 /hpf | + [...] + +---------+ + | NON-SQUAMOUS EPITH | Few (A) | None /hpf | [...] | + + + | Urine | [facility], [address] [address] | | | [place] [address] | + + + RAYMOND PRESLEY ONLY (07/01/2017 4:13 PM) + + + + | Component | Value | Ref Range | + + + + | COLOR(UR) | Yellow | | + + + + | APPEARANCE | Sl.Cloudy | | + + + + | GLUCOSE(UR) | Negative | Negative, 50.0 mg/dL | + + + + | PROTEIN(LAB) | 30.0 | Negative, 30.0 mg/dL | + + + + | BILIRUBIN | Negative | Negative | + + + + | UROBILINOGEN | <2.0 | <2.0 mg/dL | + + + + | PH(UR) | 5.0 | 5.0 - 8.0 | + + + + | BLOOD | Negative | Negative | + + + + | KETONES | 5.0 (A) | Negative mg/dL | + + + + | NITRITES | Negative | Negative | + + + + | LEUKOCYTE ESTERASE | Trace (A) | Negative | + + + + | SPECIFIC GRAVITY | 1.021Comment: Specific [place] performed by | 1.005 - 1.030 | | | refractometry | | + + + + + + + | Specimen | Performing Laboratory | + + + | Urine | [facility], [facility] [address] | | | [place] [address] | + + + CULTURE, BLOOD BACTI & YEAST [place] (07/01/2017 3:39 PM) + + + + | Component | Value | Ref Range | + + + + | CULTURE RESULT | Final Report:No Bacteria or Yeast isolated | | | | at 5 days. | | + + + + + + + | Specimen | Performing Laboratory | + + + | Blood - Peripheral | [facility], [address] [address] | | | [place] [address] | + + + CULTURE, BLOOD BACTI & YEAST (07/01/2017 3:39 PM) + + + | Specimen | Performing Laboratory | + + + | Blood | | + + + + + | Narrative | + + | The following orders were created for panel order CULTURE, BLOOD BACTI & YEAST. | | Procedure | | Abnormality Status | | --------- | | ------ CULTURE, BLOOD | | BACTI & Y...[[id number]] Final | | result Please view results for these tests on the | | individual orders. | + + CBC (HEMOGRAM) ONLY (07/01/2017 12:30 PM) + + + + | Component | Value | Ref Range | + + + + | WHITE CELL COUNT | 30.81 (H) | 3.50 - 10.80 K/cu mm | + + + + | RED CELL COUNT | 2.50 (L) | 4.00 - 5.20 M/cu mm | + + + + | HEMOGLOBIN | 7.5 (L) | 12.0 - 16.0 g/dL | + + + + | HEMATOCRIT | 22.9 (L) | 36.0 - 46.0 % | + + + + | MCV | 91.6 | 80.0 - 96.0 fL | + + + + | MCHC | 32.8 | 33.0 - 35.5 g/dL | + + + + | RDW SD | 61.2 (H) | 35.1 - 46.3 fL | [...] | + + + | Blood | [facility], [address] [address] | | | [place] [address] | + + + D-DIMER, (PE OR DIC) (07/01/2017 12:30 PM) + + + + | Component | Value | Ref Range | + + + + | D-DIMER (PE OR DIC) | 3.25 (H) | <0.50 ug/mLFEU | + + + + + + + | Specimen | Performing Laboratory | + + + | Blood | [facility], [facility] [address] | | | [place] [address] | + + + + + | Narrative | + + | D-Dimer Interpretation: <0.5 PE very unlikely 0.50-4.0 Seen in | | ill patients but not diagnostic of thrombosis. >4.0 Compatible with DIC but | | not diagnostic. If clinically indicated request titration of | | d-dimer. Values >8.0 are strongly suggestive of DIC. | + + CBC ONLY (07/01/2017 12:30 PM) + + + | Specimen | Performing Laboratory | + + + | Blood | | + + + + + | Narrative | + + | The following orders were created for panel order CBC ONLY. | | Procedure | | Abnormality Status | | --------- | | ------ CBC (HEMOGRAM) | | ONLY[[id number]] Abnormal Final | | result Please view results for these tests on the | | individual orders. | + + COAGULOPATHY PANEL (INR,APTT,FIBRINOGEN) (07/01/2017 12:30 PM) + + + + | Component | Value | Ref Range | + + + + | INR | 1.15 | 0.90 - 1.20 INR | + + + + | APTT | 40.2 (H) | 26.0 - 36.0 seconds | + + + + | FIBRINOGEN LEVEL | 570 (H) | 200 - 450 mg/dL | + + + + + + + | Specimen | Performing Laboratory | + + + | Blood | [facility], [facility] [address] | | | [place] [address] | + + + + + | [...] 0.7 U/mL | + + PHOSPHORUS, PLASMA (07/01/2017 12:30 PM) + +-------+ + | Component | Value | Ref Range | + +-------+ + | PHOSPHORUS, PLASMA | 2.8 | 2.4 - 4.7 mg/dL | | (LAB) | | | + +-------+ + + + + | Specimen | Performing Laboratory | + + + | Blood | [facility], [address] [address] | | | [place] [address] | + + + BASIC METABOLIC SET (NA, K, CL, TCO2, BUN, CR, GLU, CA) (07/01/2017 12:30 PM) + + + + | Component | Value | Ref Range | + + + + | GLUCOSE, PLASMA | 124 (H) | 70 - 99 mg/dL | | (LAB) | | | + + + + | BUN, PLASMA (LAB) | 8 | 6 - 20 mg/dL | + + + + | CREATININE PLASMA | 0.42 (L) | 0.60 - 1.10 mg/dL | | (LAB) | | | + + + + | EGFR - | >60 | >60 mL/min | | JORDANIAN | | | + + + + | EGFR NON | >60 | >60 mL/min | | -JORDANIAN | | | + + + + | SODIUM, PLASMA (LAB) | 133 (L) | 136 - 145 mmol/L | + + + + | POTASSIUM, PLASMA | 3.5 | 3.4 - 5.0 mmol/L | | (LAB) | | | + + + + | CHLORIDE, PLASMA | 96 (L) [...] + | ANION GAP | 7 | 4 - 11 mmol/L | + + + + | POTASSIUM CMNT | No Hemo | | + + + + + + + | Specimen | Performing Laboratory | + + + | Blood | [facility], [place] [address] | | | [place] [address] | + + + + + | [...] Rapidly changing kidney function | + + LDH TOTAL, PLASMA (07/01/2017 12:30 PM) + + + + | Component | Value | Ref Range | + + + + | LD TOTAL, PLASMA | 1,340 (H) | <=250 U/L | + + + + | LD CMNT | No Hemo | | + + + + + + + | Specimen | Performing Laboratory | + + + | Blood | [facility], [place] [address] | | | [place] [address] | + + + URIC ACID, PLASMA (07/01/2017 12:30 PM) + +---------+ + | Component | Value | Ref Range | + +---------+ + | URIC ACID, PLASMA | 1.2 (L) | 2.5 - 6.2 mg/dL | | (LAB) | | | + +---------+ + + + + | Specimen | Performing Laboratory | + + + | Blood | [facility], [place] [address] | | | [place] [address] | + + + RBC MORPHOLOGY (06/30/2017 11:00 PM) + + + + | Component | Value | Ref Range | + + + + | ANISOCYTOSIS | 1+(10-25cells/HPF) | | + + + + + + + | Specimen | Performing Laboratory | + + + | Blood | [facility], [place] [address] | | | [place] [address] | + + + MANUAL DIFFERENTIAL (06/30/2017 11:00 PM) + + + + | Component | Value | Ref Range | + + + + | NEUTROPHIL % | 3.7 (L) | 50.0 - 70.0 % | + + + + | LYMPHOCYTE % | 2.8 (L) | 18.0 - 42.0 % | + + + + | MONOCYTE % | 5.5 | 3.5 - 9.0 % | + + + + | EOSINOPHIL % | 0.0 (L) | 1.0 - 3.0 % | + + + + | BASOPHIL % | 0.0 | 0.0 - 2.0 % | + + + + | IG% | 0.0Comment: Increased immature | 0.0 - 1.0 % | | | granulocytes(IG)define a left shift.IGs | | | | include metamyelocytes, myelocytes and | | | | promyelocytes. Bands are included in the | | | | neutrophil count, not the IG count, except | | | | in neonates <=60 days old where bands are | | | | reported in a manual diff. | | + + + + | ATYPICAL CELL % | 88.0 ()Comment: Atypical Cells with fine | 0.0 % | | | chromatin, high N-C ratio, prominent | | | | nucleoli and dark blue cytoplasm. | | + + + + | NEUTROPHIL # | 1.29 (L) | 1.80 - 7.70 K/cu mm | + + + + | LYMPHOCYTE # | 0.97 (L) | 1.00 - 4.80 K/cu mm | + + + + | MONOCYTE # | 1.91 (H) | 0.10 - 0.90 K/cu mm | + + + + | EOSINOPHIL # | 0.00 | 0.00 - 0.50 K/cu mm | + + + + | BASOPHIL # | 0.00 | 0.00 - 0.10 K/cu mm | + + + + | IG# | 0.00 | 0.00 - 0.10 K/cu mm | + + + + | ATYPICAL CELLS # | 30.56 | K/cu mm | + + + + + + + | Specimen | Performing Laboratory | + + + | Blood | [facility], [place] [address] | | | [place] [address] | + + + + + | Narrative | + + | New reference ranges for IG% and IG# effective 05/19/2017. Increased immature | | granulocytes(IG)define a left shift.IGs include metamyelocytes, myelocytes and | | promyelocytes. Bands are included in the neutrophil count, not the IG count, except in | | neonates <=60 days old where bands are reported in a manual diff. | + + CBC AND AUTO DIFF (06/30/2017 11:00 PM) + + + + | Component | Value | Ref Range | + + + + | WHITE CELL COUNT | 34.73 (H) | 3.50 - 10.80 K/cu mm | + + + + | RED CELL COUNT | 2.37 (L) | 4.00 - 5.20 M/cu mm | + + + + | HEMOGLOBIN | 7.2 (L) | 12.0 - 16.0 g/dL | + + + + | HEMATOCRIT | 21.5 (L) | 36.0 - 46.0 % | + + + + | MCV | 90.7 | 80.0 - 96.0 fL | + + + + | MCHC | 33.5 | 33.0 - 35.5 g/dL | + + + + | RDW SD | 60.8 (H) | 35.1 - 46.3 fL | [...] | + + + | Blood | [facility], [place] [address] [place] [address] | | | [place] [address] | + + + COAGULOPATHY PANEL (INR,APTT,FIBRINOGEN) (06/30/2017 11:00 PM) + + + + | Component | Value | Ref Range | + + + + | INR | 1.15 | 0.90 - 1.20 INR | + + + + | APTT | 40.5 (H) | 26.0 - 36.0 seconds | + + + + | FIBRINOGEN LEVEL | 486 (H) | 200 - 450 mg/dL | + + + + + + + | Specimen | Performing Laboratory | + + + | Blood | [facility], [place] [address] | | | [place] [address] | + + + + + | [...] 0.7 U/mL | + + PHOSPHORUS, PLASMA (06/30/2017 11:00 PM) + +-------+ + | Component | Value | Ref Range | + +-------+ + | PHOSPHORUS, PLASMA | 2.6 | 2.4 - 4.7 mg/dL | | (LAB) | | | + +-------+ + + + + | Specimen | Performing Laboratory | + + + | Blood | [facility], [place] [address] | | | [place] [address] | + + + LDH TOTAL, PLASMA (06/30/2017 11:00 PM) + + + + | Component | Value | Ref Range | + + + + | LD TOTAL, PLASMA | 1,151 (H) | <=250 U/L | + + + + | LD CMNT | No Hemo | | + + + + + + + | Specimen | Performing Laboratory | + + + | Blood | [facility], [place] [address] [place] [address] RD | | | [place] [address] | + + + URIC ACID, PLASMA (06/30/2017 11:00 PM) + +---------+ + | Component | Value | Ref Range | + +---------+ + | URIC ACID, PLASMA | 1.4 (L) | 2.5 - 6.2 mg/dL | | (LAB) | | | + +---------+ + + + + | Specimen | Performing Laboratory | + + + | Blood | [facility], [place] [address] | | | [place] [address] | + + + MAGNESIUM, PLASMA (06/30/2017 11:00 PM) + +-------+ + | Component | Value | Ref Range | + +-------+ + | MAGNESIUM,PLASMA | 2.3 | 1.6 - 2.6 mg/dL | + +-------+ + + + + | Specimen | Performing Laboratory | + + + | Blood | [facility], [address] | | | [place] [address] | + + + + + | Narrative | + + | Reference range change effective 12/11/16. | + + CBC, WITH DIFFERENTIAL (06/30/2017 11:00 PM) + + + | Specimen | Performing Laboratory | + + + | Blood | | + + + + + | Narrative | + + | The following orders were created for panel order CBC, WITH DIFFERENTIAL. | | Procedure | | Abnormality Status | | --------- | | ------ CBC AND AUTO | | DIFF[[id number]] Abnormal Final | | result MANUAL | | DIFFERENTIAL[[id number]] Abnormal Final | | result RBC | | MORPHOLOGY[[id number]] | | Final result Please view results for these tests on the | | individual orders. | + + COMPLETE METABOLIC SET (NA,K,CL,CO2,BUN,CREAT,GLUC,CA,AST,ALT,BILI TOTAL,ALK PHOS,ALB,PROT TOTAL) (06/30/2017 11:00 PM) + + + + | Component | Value | Ref Range | + + + + | GLUCOSE, PLASMA | 131 (H) | 70 - 99 mg/dL | | (LAB) | | | + + + + | BUN, PLASMA (LAB) | 8 | 6 - 20 mg/dL | + + + + | CREATININE PLASMA | 0.48 (L) | 0.60 - 1.10 mg/dL | | (LAB) | | | + + + + | EGFR - | >60 | >60 mL/min | | JORDANIAN | | | + + + + | EGFR NON | >60 | >60 mL/min | | -JORDANIAN | | | + + + + | SODIUM, PLASMA (LAB) | 134 (L) | 136 - 145 mmol/L | + + + + | POTASSIUM, PLASMA | 3.6 | 3.4 - 5.0 mmol/L | | (LAB) | | | + + + + | CHLORIDE, PLASMA | 96 (L) | 97 - 108 mmol/L | | (LAB) | | | + + + + | TOTAL CO2, PLASMA | 31 | 21 - 32 mmol/L | | (LAB) | | | + + + + | CALCIUM, PLASMA | 7.9 (L) | 8.6 - 10.2 mg/dL | [...] + + + | ALK PHOS | 172 (H) | 42 - 98 U/L | + + + + | AST(SGOT) | 48 (H) | <=41 U/L | + + + + | ALT (SGPT) | 32 | <=60 U/L | + + + + | ANION GAP | 7 | 4 - 11 mmol/L | + + + + | [...] | + + + | Blood | [facility], [address] | | | [place] [address] | + + + + + | [...] Rapidly changing kidney function | + + RBC MORPHOLOGY (06/30/2017 12:26 PM) + + + + | Component | Value | Ref Range | + + + + | ANISOCYTOSIS | 1+(10-25cells/HPF) | | + + + + | MICROCYTOSIS | 1+(10-25cells/HPF) | | + + + + + + + | Specimen | Performing Laboratory | + + + | Blood | [facility], [address] | | | [place] [address] | + + + MANUAL DIFFERENTIAL (06/30/2017 12:26 PM) + + + + | Component | Value | Ref Range | + + + + | NEUTROPHIL % | 5.2 (L) | 50.0 - 70.0 % | + + + + | LYMPHOCYTE % | 6.0 (L) | 18.0 - 42.0 % | + + + + | MONOCYTE % | 9.5 (H) | 3.5 - 9.0 % | + + + + | EOSINOPHIL % | 0.0 (L) | 1.0 - 3.0 % | + + + + | BASOPHIL % | 0.0 | 0.0 - 2.0 % | + + + + | IG% | 0.0Comment: Increased immature | 0.0 - 1.0 % | | | granulocytes(IG)define a left shift.IGs | | | | include metamyelocytes, myelocytes and | | | | promyelocytes. Bands are included in the | | | | neutrophil count, not the IG count, except | | | | in neonates <=60 days old where bands are | | | | reported in a manual diff. | | + + + + | ATYPICAL CELL % | 79.3 ()Comment: Atypical Cells with fine | 0.0 % | | | chromatin, high N-C ratio, prominent | | | | nucleoli and dark blue cytoplasm. | | + + + + | NEUTROPHIL # | 1.99 | 1.80 - 7.70 K/cu mm | + + + + | LYMPHOCYTE # | 2.30 | 1.00 - 4.80 K/cu mm | + + + + | MONOCYTE # | 3.64 (H) | 0.10 - 0.90 K/cu mm | + + + + | EOSINOPHIL # | 0.00 | 0.00 - 0.50 K/cu mm | + + + + | BASOPHIL # | 0.00 | 0.00 - 0.10 K/cu mm | + + + + | IG# | 0.00 | 0.00 - 0.10 K/cu mm | + + + + | ATYPICAL CELLS # | 30.37 | K/cu mm | + + + + + + + | Specimen | Performing Laboratory | + + + | Blood | [facility], [address] | | | [place] [address] | + + + + + | Narrative | + + | New reference ranges for IG% and IG# effective 05/19/2017. Increased immature | | granulocytes(IG)define a left shift.IGs include metamyelocytes, myelocytes and | | promyelocytes. Bands are included in the neutrophil count, not the IG count, except in | | neonates <=60 days old where bands are reported in a manual diff. | + + CBC AND AUTO DIFF (06/30/2017 12:26 PM) + + + + | Component | Value | Ref Range | + + + + | WHITE CELL COUNT | 38.30 (H) | 3.50 - 10.80 K/cu mm | + + + + | RED CELL COUNT | 2.31 (L) | 4.00 - 5.20 M/cu mm | + + + + | HEMOGLOBIN | 7.0 (L) | 12.0 - 16.0 g/dL | + + + + | HEMATOCRIT | 21.3 (L) | 36.0 - 46.0 % | + + + + | MCV | 92.2 | 80.0 - 96.0 fL | + + + + | MCHC | 32.9 | 33.0 - 35.5 g/dL | + + + + | RDW SD | 60.9 (H) | 35.1 - 46.3 fL | [...] | + + + | Blood | [facility], [facility] [address] | | | [place] [address] | + + + CBC, WITH DIFFERENTIAL (06/30/2017 12:26 PM) + + + | Specimen | Performing Laboratory | + + + | Blood | | + + + + + | Narrative | + + | The following orders were created for panel order CBC, WITH DIFFERENTIAL. | | Procedure | | Abnormality Status | | --------- | | ------ CBC AND AUTO | | DIFF[[id number]] Abnormal Final | | result MANUAL | | DIFFERENTIAL[[id number]] Abnormal Final | | result RBC | | MORPHOLOGY[[id number]] | | Final result Please view results for these tests on the | | individual orders. | + + VRE (FRANCISCO) BY PCR (06/30/2017 12:21 PM) + + + + | Component | Value | Ref Range | + + + + | VRE BY PCR | Negative for van A gene | Negative for van A | | | | gene | + + + + + + + | Specimen | Performing Laboratory | + + + | Swab - Rectum | [facility] [address] [facility] | | | [place] [address] | + + + PHOSPHORUS, PLASMA (06/30/2017 11:36 AM) + +-------+ + | Component | Value | Ref Range | + +-------+ + | PHOSPHORUS, PLASMA | 2.4 | 2.4 - 4.7 mg/dL | | (LAB) | | | + +-------+ + + + + | Specimen | Performing Laboratory | + + + | Blood | [facility], [facility] [address] | | | [place] [address] | + + + BASIC METABOLIC SET (NA, K, CL, TCO2, BUN, CR, GLU, CA) (06/30/2017 11:36 AM) + + + + | Component | Value | Ref Range | + + + + | GLUCOSE, PLASMA | 139 (H) | 70 - 99 mg/dL | | (LAB) | | | + + + + | BUN, PLASMA (LAB) | 7 | 6 - 20 mg/dL | + + + + | CREATININE PLASMA | 0.47 (L) | 0.60 - 1.10 mg/dL | | (LAB) | | | + + + + | EGFR - | >60 | >60 mL/min | | JORDANIAN | | | + + + + | EGFR NON | >60 | >60 mL/min | | -JORDANIAN | | | + + + + | SODIUM, PLASMA (LAB) | 133 (L) | 136 - 145 mmol/L | + + + + | POTASSIUM, PLASMA | 3.5 | 3.4 - 5.0 mmol/L | | (LAB) | | | + + + + | CHLORIDE, PLASMA | 96 (L) [...] + | ANION GAP | 6 | 4 - 11 mmol/L | + + + + | POTASSIUM CMNT | No Hemo | | + + + + + + + | Specimen | Performing Laboratory | + + + | Blood | [facility] [address] [address] | | | [place] [address] | + + + + + | [...] Rapidly changing kidney function | + + LDH TOTAL, PLASMA (06/30/2017 11:36 AM) + + + + | Component | Value | Ref Range | + + + + | LD TOTAL, PLASMA | 1,143 (H) | <=250 U/L | + + + + | LD CMNT | No Hemo | | + + + + + + + | Specimen | Performing Laboratory | + + + | Blood | [facility], [facility] [address] [place] [address] | | | [place] [address] | + + + URIC ACID, PLASMA (06/30/2017 11:36 AM) + +---------+ + | Component | Value | Ref Range | + +---------+ + | URIC ACID, PLASMA | 1.7 (L) | 2.5 - 6.2 mg/dL | | (LAB) | | | + +---------+ + + + + | Specimen | Performing Laboratory | + + + | Blood | [facility], [address] [address] | | | [place] [address] | + + + FLT3 ITD, BLOOD (06/30/2017 11:30 AM) + + + + | Component | Value | Ref Range | + + + + | FLT3 ITD | See Interpretation. Internal Tandem | | | | Duplication (ITD) detected. 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 Recently the | | | | completion of the RATIFY clinical trial | | | | ([id number]) has led to the FDA approval | | | | in July 2016 of the multitargeted kinase | | | | inhibitor midostaurin for the treatment of | | | | adult patients with newly diagnosed AML | | | | harboring either the FLT3-ITD or FLT3-TKD | | | | mutations (Shade Prado, Blood, 2017, | | | | 129:5945-5453). The quantitative reporting | | | | units for the FLT3 ITD mutation is the | | | | allelic ratio, which is the ratio of the | | | | expanded ITD electrophoresis product (peak | | | | area) divided the wild-type FLT3 | | | | electrophoresis product (peak area). The | | | | mutant allele frequency is calculated by | | | | dividing the ITD product (peak area) by the | | | | total FLT3 product (peak area). The | | | | midostaurin RATIFY clinical trial | | | | distinguished a "high" versus "low" | | | | FLT3-ITD by an allelic ratio above or below | | | | 0.7. The LeukemiaNet (ELN) | | | | consensus group defines a "high" FLT3 ITD | | | | (with adverse risk) as an allelic ratio | | | | above 0.5, and a "low" FLT3-ITD as an | | | | allelic ratio below 0.5 (not adverse risk) | | | | (Timoteo et al., Blood, 2017, 129:424-447). | | | | The FLT3 kinase is also a specific target | | | | of several other tyrosine kinase inhibitors | | | | (such as quizartinib and gilteritinib) | | | | that may be recruiting patients for | | | | clinical trials. Comment: For the purposes | | | | of improved patient care, the findings for | | | | FLT3-ITD gene mutation analysis are issued | | | | in this separate report. Next generation | | | | sequencing analysis is being performed and | | | | a comprehensive interpretation of all 76 | | | | genes analyzed in this case will be | | | | reported in a separate report upon | | | | completion of the remaining tests. | | + + + + | METHOD(S) | For the ITD assay performed in our | | | | laboratory, blood, or bone marrow-derived | | | | DNA is PCR amplified with FLT3 | | | | juxtamembrane domain (exon 14) primers. | | | | The FLT3 ITD PCR product is then analyzed | | | | by capillary electrophoresis to detect the | | | | presence or absence of length variations | | | | attributable to an ITD. The low-level | | | | sensitivity limit of the assay is ~1-5%, | | | | such that a mutant cell (or tumor cell) | | | | population below this detection limit will | | | | not be reliably detected. | | + + + + | DISCLAIMER | This test was developed and its performance | | | | characteristics determined by the [facility] | | | | [facility]. It has | | | | not been cleared or approved by the Food | | | | and Drug Administration. FDA approval is | | | | not required for the clinical use of the | | | | test, and therefore validation was done as | | | | required under the requirements of the | | | | Clinical Laboratory Improvement Act of 1988 | | | | (CLIA). The [facility] | | | | Laboratories are fully licensed by the | | | | [facility] under CLIA and are | | | | accredited by the [employer] | | | | Pathologists (CAP). Laboratory | | | | Director: Edy Vang M.D., | | | | Ph.D Reviewed and electronically signed | | | | by DEANGELO JOLLY MD,PhD3/12/2017 12:00 | | | | PM | | + + + + + + + | Specimen | Performing Laboratory | + + + | Blood | [facility] [address] | | [address] [place] [address] | + + + COMPREHENSIVE HEME PANEL SEQ, BLOOD (06/30/2017 11:30 AM) + + + + | Component | Value | Ref Range | + + + + | COMPREHENSIVE HEME | See Interpretation. | | | PANEL SEQ | | | + + + + | INTERPRETATION | GeneTrailsTM Comprehensive Heme | | | | Sequencing: Mutation Screening by | | | | Next-Generation Sequencing Specimen ID: | | | | [id number] Type: BloodCollection | | | | Date: 06/30/2017Indication for Testing: | | | | Relapsed Acute myeloid leukemia (AML) The | | | | previously identified pathogenic mutations | | | | in FLT3 (ITD), NPM1, and DNMT3A are | | | | detectable once again at high levels, | | | | consistent with the recurrence of a similar | | | | (or evolved) AML clone as was seen | | | | previously in this patient. A new | | | | variant(s) in WT1 has also been detected | | | | (that was not detectable in prior samples). | | | | The previously detected variant(s) in the | | | | FLT3 (p.D835A and p.N841K), TET2 (splice | | | | site), and NRAS genes are not detectable in | | | | the current sample (limit of detection | | | | 0.5%). Variant(s) of Strong Clinical | | | | Significance (Tier I) Gene: FLT3 ITD of 42 | | | | bpVariant: | | | | p.B396lnbmwfKNVLCHRZOEVCZUOJhujhfn allele | | | | frequency (VAF): 71%Allelic ratio = 23FLT3 | | | | (BFGI29996.1):c.1782_1783insGTGACCGGCTCCTCA | | | | GATAATGAGTACTTCTACGTTGATTTC; | | | | chr13:[id number]>TGAAATCAACGTAGAAGTACTCATTAT | | | | CTGAGGAGCCGGTCACLast Observed: 04/04/2017; | | | | Allele frequency: 0%03/03/2017; Allele | | | | frequency: 75%03/14/2016; Allele frequency: | | | | 0%02/15/2016; Allele frequency: 0% FLT 3 | | | | is a receptor tyrosine kinase with | | | | important roles in hematopoietic stem cell | | | | proliferation and survival. AML patients | | | | with normal cytogenetics and with a FLT3 | | | | ITD mutation have a significantly poorer | | | | prognosis with increased relapse risk and | | | | decreased overall survival. More | | | | aggressive therapy is thus often considered | | | | in these high-risk patients. The | | | | multitarget kinase inhibitor midostaurin is | | | | FDA-approved for the treatment of adult | | | | patients with newly diagnosed AML harboring | | | | either the FLT3-ITD or FLT3-TKD mutation | | | | (Shade Prado, Blood, 2017, 129:3603-0514). | | | | The FLT3 kinase is also specific target of | | | | several other tyrosine kinase inhibitors | | | | that may be recruiting patients for | | | | clinical trials (including quizartinib, | | | | lestaurtinib, midostaurin, sorefenib, | | | | sunitinib, ponatinib, etc Gene: | | | | INH4Alelhnx: p.W288fs*12Variant allele | | | | frequency (VAF): 51%Variant ID: | | | | [id number]; [id number] | | | | (ALZQ1681.1):c.859_860insTCTG; | | | | [id number]>CTCTGLast Observed: | | | | 04/04/2017; Allele frequency: 0%03/03/2017; | | | | Allele frequency: 44%03/14/2016; Allele | | | | frequency: 0%02/15/2016; Allele frequency: | | | | 46% Gene: TSDB3HTssaiuh: p.A279TChhdduz | | | | allele frequency (VAF): 48%Variant ID: | | | | [id number]; [id number], [id number] | | | | (TWIV77661.1):c.2644C>T; | | | | chr2:[id number]>ALast Observed: 04/04/2017; | | | | Allele frequency: 19%03/03/2017; Allele | | | | frequency: 46%03/14/2016; Allele frequency: | | | | 14%02/15/2016; Allele frequency: 45% | | | | Variant(s) of Potential Clinical | | | | Significance (Tier II) Gene: ZN1Omnfylq: | | | | p.V362fs*69 (not detected in prior | | | | samples)Variant allele frequency (VAF): | | | | 41%Variant ID: WT1 | | | | (CFQW07890.1):c.1083_1088TGTACG>GA; | | | | chr11:[id number]>CTC The WT1 gene | | | | encodes a zinc-finger preparing box tender factor | | | | that plays an important role in cellular | | | | development and cell survival by regulating | | | | expression of numerous target genes. It | | | | has a tumor suppressor as well as an | | | | oncogenic role in tumor formation. Multiple | | | | clinical trials are available and | | | | currently recruiting patients with | | | | hematologic diseases that bear mutations in | | | | the WT1 gene (ClinicalTrials.gov). WT1 is | | | | mutated in ~10% of acute myeloid leukemias | | | | and have been reported to convey a | | | | relatively poor prognosis (Dorys, Blood | | | | 116(5):788-92, 2009; Gilda, Blood 115:80338, | | | | 2009). Case reviewed by:Dora | | | | Ranjit/Molecular TechnologistDeangeol | | | | MD Ruperto, PhD/Molecular Genetic | | | | Pathologist LOW LIMIT OF DETECTION: The | | | | low limit of detection for this assay is | | | | 2% VAF at a minimal 900 read depth (5% at | | | | 700 read depth and 7% at 500 read depth). | | | | This case has an average read depth of | | | | 2344. However, a small fraction (100 | | | | minus the percentage in the parenthesis) of | | | | the targeted regions of the following | | | | genes: ASXL1 (99%), NOTCH2 (99%), JAK1 | | | | (98%), GATA1 (97%), RAD21 (97%) have a | | | | higher low limit of detection of 10-15% VAF | | | | (if less than 250 read depth), or could | | | | harbor mutations that were missed by this | | | | analysis if the read depth is below | | | | 100. Further information on these | | | | low-coverage regions is available upon | | | | request. Low read counts may reflect | | | | changes in gene copy number or technical | | | | issues with the sample. | | + + + + | TIER METHOD | Genomic variants have been classified in | | | | accordance with 2017 standards and | | | | guidelines recommended by AMP/ASCO/CAP (1) | | | | and currently available resources. In | | | | brief, Tier I variants have strong evidence | | | | linking genomic alterations to specific | | | | therapies, or are included in clinical | | | | practice guidelines or well-powered studies | | | | confirming their diagnostic, predictive, | | | | prognostic, and/or disease monitoring | | | | significance. Tier II variants have either | | | | targeted therapies for different tumor | | | | types, in preclinical or clinical trials, | | | | or have less strong evidence for their | | | | diagnostic, predictive, prognostic, and/or | | | | disease monitoring roles. Tier III variants | | | | are neither observed in healthy | | | | populations nor have convincing published | | | | evidence of cancer association. The | | | | classification of a variant is dependent on | | | | the specific clinical scenario, which | | | | could change in a different patient and/or | | | | in a new sample from the same patient, or | | | | if there are new data/information relevant | | | | to this variant. | | + + + + | METHOD(S) | This test is designed to detect alterations | | | | in a panel of 76 genes, many of which are | | | | known to play a role in leukemia and | | | | lymphoma pathogenesis, diagnosis, | | | | prognosis, response to therapy, or disease | | | | monitoring. These genes include: Signaling | | | | | | | | genes:GYF7JQMXEKGNFTLHGEO7EXHN3GZDCR7YZN6DJ | | | | AA3ZJG15VCLMLQ3FUZN2XSO8BDM5LLATEDLUHDFEM27 | | | | NTIFR3QLWEV8DHIHHBXR4MPZA6XTKX47 | | | | Chromatin-modifying | | | | genes:OZYN7RLFPLXDV199TWB6SOV1IDQDGYDJ10 | | | | DNA methylation-associated | | | | genes:SMYG7OQJZ7WME4YXN0 Industrial Engineering Technologist | | | | factors:YQZMHDM5URVDPQCCOKSDMFH1ULRG3IGNH1I | | | | TUC1CP7BQZS4LYW1BYAI7OVHZZFW3ZYHW9VCAD9AXI3 | | | | Spliceosome-complex | | | | genes:AJOM9RS8E9S3FD3ZNEO6 Cohesion-complex | | | | genes:UFY6NMTM9BJFG1HXZ23 Tumor suppressor | | | | genes:VQ52SW9VFW2 and | | | | others:VRI1HGDQ2OGPP97CD60ASFT8BSLGE3LUDXVZ | | | | GUO6HQXUSH3SDUSLN05IMKCS9 All the coding | | | | exons and the canonical splice sites of | | | | these genes, except CARD11, are sequenced. | | | | Selected coding exons (NM_032415.4:3-9, 15, | | | | 21) are sequenced for CARD11. Genomic DNA | | | | is extracted and purified from blood, bone | | | | marrow or other hematopoietic tissue from | | | | fresh or fixed samples. If the submitted | | | | sample is from FFPE, the specimen is | | | | examined microscopically and, if deemed | | | | helpful to enhance sensitivity, genomic DNA | | | | is extracted and purified from micro | | | | dissected, tumor-rich areas. Mutations are | | | | screened by massively parallel sequencing | | | | (next-generation sequencing) using a | | | | combination of multiplexed PCR (customized | | | | CallidusCloud targeted DNA panel with molecular | | | | barcodes) and sequencing on an Illumina | | | | platform ([employer]). Sequencing data is | | | | then aligned against a reference genome | | | | [hg19]. An in-house bioinformatics | | | | analysis pipeline has been used that | | | | employs multiple established variant | | | | calling tools (FreeBayes, MuTect2, and | | | | Scalpel) and variant annotation tools | | | | (Oncotator). The assay is validated | | | | according to AMP guidelines (2,3). With | | | | regard to insertions and deletions, this | | | | test is known to be biased toward detecting | | | | shorter alterations. Therefore, a | | | | supplementary non-biased size-based assay | | | | is concomitantly run to ensure that | | | | internal tandem duplication insertions in | | | | FLT3 exon 14 are not missed. Sequencing | | | | often does not detect large deletions or | | | | duplications in other genes targeted on | | | | this panel. In addition, this test does not | | | | detect mutations in the regulatory | | | | regions, deep introns, or highly homologous | | | | regions containing pseudogenes and/or | | | | highly repetitive regions. This assay is | | | | intended to detect somatically-acquired | | | | variants in cancer-associated genes and is | | | | not intended to detect germline variants | | | | for the diagnosis of inherited cancer | | | | predisposition syndromes. If an | | | | inherited variant is suspected, other | | | | sequencing tests may be indicated, and | | | | genetic counseling may be warranted. | | + + + + | REFERENCES | 1.Jacque MM, et al; 2017, J Mol Diagn. | | | | 19(1):4-23.2.Lory WANG, et al; 2017, J | | | | Mol Diagn. 19(3):341-365.3.Fransisco S, et al; | | | | 2018, J Mol Diagn. 20(1):4-27.4.NCCN | | | | guidelines: | | | | https://www.nccn.org/professionals/physicia | | | | n_gls/default.aspx5.The 2017 ELN | | | | recommendations: Blood. 2017; | | | | 129(4):424-447.6.The 2016 revision to the | | | | WHO classification: Blood. 2016; | | | | 127(20):2372-035. 7.Catalogue Of Somatic | | | | Mutations In Cancer: | | | | http://cancer.julia.ac.uk/cosmic8.ClinVar: | | | | | | | | https://www.ncbi.nlm.nih.gov/clinvar/9.SHIRLEY- | | | | Clinical Knowledgebase (CKB): | | | | https://ckb.BuildingOps.org/10.CIViC: | | | | https://civicdb.org/home | | + + + + | DISCLAIMER | This test was developed and its performance | | | | characteristics determined by the [facility] | | | | [facility]. It has | | | | not been cleared or approved by the Food | | | | and Drug Administration. FDA approval is | | | | not required for the clinical use of the | | | | test, and therefore validation was done as | | | | required under the requirements of the | | | | Clinical Laboratory Improvement Act of 1988 | | | | (CLIA). The [facility] | | | | Laboratories are fully licensed by the | | | | state of [place] under CLIA and are | | | | accredited by the [employer] | | | | Pathologists (CAP). Laboratory | | | | Director: Edy Vang M.D., | | | | Ph.D Reviewed and electronically signed | | | | by DEANGELO JOLLY MD,PhD3 4:49 | | | | PM | | + + + + + + + | Specimen | Performing Laboratory | + + + | Blood | [facility] [address] | | [address] [place] [address] | + + + LEUKEMIA/LYMPHOMA MARKER - BLOOD (06/30/2017 11:30 AM) + + + + | Component | Value | Ref Range | + + + + | Final Pathologic | Peripheral blood: - Recurrent acute myeloid | | | Diagnosis | leukemia (87% blasts), see comment - | | | | Immunophenotype: partial CD7, CD13, | | | | variable CD34, CD33, CD38, CD58, CD117, | | | | CD123 and dim HLA-DR positive - Normocytic | | | | anemia and thrombocytopenia Comment: | | | | Correlation with concurrent molecular | | | | studies is recommended. Case seen | | | | by:Charlotte Jackson MD | | | | | | | | Pathology ResidentPhinati Sebastian MD, PhD | | | | | | | | | | | | Hematopathologist My electronic signature | | | | indicates that I have personally reviewed | | | | all diagnostic slides, the gross and/or | | | | microscopic portion of this report and | | | | formulated the final diagnosis. 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 CBC:Date: | | | | 06/30/17 Ref Range & Units Value WHITE CELL | | | | COUNT 3.50 - 10.80 K/cu mm 38.37 RED | | | | CELL COUNT 4.00 - 5.20 M/cu mm 2.62 | | | | HEMOGLOBIN 12.0 - 16.0 g/dL 7.9 | | | | HEMATOCRIT 36.0 - 46.0 % 23.8 MCV 80.0 | | | | - 96.0 fL 90.8 MCHC 33.0 - 35.5 g/dL | | | | 33.2 RDW SD 35.1 - 46.3 fL 59.3 | | | | PLATELET COUNT 150 - 400 K/cu mm 10 MPV | | | | 9.7 - 12.3 fL Comments: Not Measured | | | | NRBC% 0.0 - 0.3 % 0.0 NRBC# 0.00 - 0.02 | | | | K/cu mm 0.00 MANUAL DIFFERENTIAL | | | | Order: [id number] - Part of Panel Order | | | | [id number] Collected: 06/29/2017 23:01 | | | | Status: Final result Visible to | | | | patient: No (Not Released) Ref Range & | | | | Units Value NEUTROPHIL % 50.0 - 70.0 % | | | | 7.8 LYMPHOCYTE % 18.0 - 42.0 % 2.6 | | | | MONOCYTE % 3.5 - 9.0 % 3.4 EOSINOPHIL % | | | | 1.0 - 3.0 % 0.0 BASOPHIL % 0.0 - 2.0 % | | | | 0.0 IG% 0.0 - 1.0 % 0.0 ATYPICAL | | | | CELL % 0.0 % 86.2 Comments: Atypical | | | | Cells with fine chromatin, high N-C ratio, | | | | prominent nucleoli and dark blue cytoplasm. | | | | NEUTROPHIL # 1.80 - 7.70 K/cu mm | | | | 2.99 LYMPHOCYTE # 1.00 - 4.80 K/cu mm | | | | 1.00 MONOCYTE # 0.10 - 0.90 K/cu mm | | | | 1.30 EOSINOPHIL # 0.00 - 0.50 K/cu mm | | | | 0.00 BASOPHIL # 0.00 - 0.10 K/cu mm | | | | 0.00 IG# 0.00 - 0.10 K/cu mm | | | | 0.00 ATYPICAL CELLS # K/cu mm 33.07 | | | | PERIPHERAL BLOOD MORPHOLOGY:WBC: | | | | Markedly increased, with a predominance of | | | | blasts. Blasts are large, with fine nuclear | | | | chromatin, and nuclear folding, dark blue | | | | cytoplasm with occasional vacuoles and rare | | | | cytoplasmic granules. Granulocytes show | | | | mostly mature forms, without overt | | | | dysplastic features. Lymphocytes are | | | | small and mature, and mature monocytes are | | | | present. RBC: Moderately decreased, | | | | with mild anisopoikilocytosis. Platelets: | | | | Markedly decreased, with occasional large | | | | and giant forms present. FLOW CYTOMETRIC | | | | ANALYSIS: % of total WBC | | | | (CD45+)Myeloid Blasts 87% Monocytes 6% | | | | Lymphocytes 3% % of | | | | LymphocytesB-cells Essentially absent | | | | T-Cells 96% NK-cells 4% | | | | RatioKappa/Lambda NA CD4/CD8 1:3.9 | | | | Summary: Blast immunophenotype: partial | | | | CD7, CD13, variable CD34, CD33, CD38, CD58, | | | | CD117, CD123 and dim HLA-DR. No | | | | abnormal lymphoid population is detected. | | | | Antibodies Tested CD2 sCD3 cCD3 CD4 CD5 CD7 | | | | CD8 CD10 CD11b CD13 CD14 CD15 CD16 CD19 | | | | CD20 CD22 CD33 CD34 CD38 CD45 CD56 CD58 | | | | CD64 CD71 cCD79a CD117 CD123 MPO HLA-DR | | | | sKappa sLambda TDT | | | | | | | | | | | |Antibodies Tested | | | |CD2 sCD3 cCD3 CD4 CD5 CD7 CD8 CD10 | | | |CD11b CD13 CD14 CD15 CD16 CD19 CD20 CD22 | | | |CD33 CD34 CD38 CD45 CD56 CD58 CD64 CD71 | | | |cCD79a CD117 CD123 MPO HLA-DR sKappa sLambda TDT | | | | | | | | | | | | | | | | | | + + + + | Gross Description | A Alarcon-stained peripheral blood smear | | | | and/or a cytospin was reviewed. Analyte | | | | specific reagents are used in many | | | | laboratory tests necessary for standard | | | | medical care. This test was developed | | | | and its performance characteristics | | | | determined by [facility]. It has | | | | not been cleared or approved by the [place] Food | | | | and Drug Administration (FDA). FDA does | | | | not require this test to go through | | | | premarket FDA review. This test is used | | | | for clinical purposes. It should not be | | | | regarded as investigational or for | | | | research. This laboratory is certified | | | | under the Clinical Laboratory Improvement | | | | Amendments (CLIA) as qualified to perform | | | | high complexity clinical laboratory | | | | testing. | | + + + + + + + | Specimen | Performing Laboratory | + + + | Blood | [facility] DEPARTMENT OF PATHOLOGY [address] | | | [place] [address] | + + + PRODUCT - PLATELET PHERESIS LEUKOREDUCED (06/30/2017 12:33 AM) + + + + | Component | Value | Ref Range | + + + + | PRODUCT DESCRIPTION | PLATELETS PHERESIS, LEUKOCYTE REDUCED, | | | | IRRADIATED | | + + + + | PRODUCT UNIT # | [id number] | | + + + + | UNIT ABO | O | | + + + + | UNIT RH | POS | | + + + + | STATUS OF UNIT | Presumed Transfused | | + + + + | EXPIRATION DATE | [id number] | | + + + + | BLOOD TYPE BARCODE | 5100 | | + + + + | BLOOD PRODUCT CODE | [id number] | | + + + + + + + | Specimen | Performing Laboratory | + + + | | [facility] LABORATORY SERVICES, TRANSFUSION MEDICINE [address] [facility] | | | [place] [address] [address] | + + + ANTIBODY SCREEN (06/30/2017 12:33 AM) + + + + | Component | Value | Ref Range | + + + + | Antibody Screen | Negative | | + + + + + + + | Specimen | Performing Laboratory | + + + | Blood | [facility] LABORATORY SERVICES, TRANSFUSION MEDICINE [address] [facility] | | | [place] [address] | + + + ABO & RH TYPE (06/30/2017 12:33 AM) + + + + | Component | Value | Ref Range | + + + + | ABO Group | O | | + + + + | Rh Type | Positive | | + + + + + + + | Specimen | Performing Laboratory | + + + | Blood | [facility] LABORATORY SERVICES, TRANSFUSION MEDICINE [address] [facility] | | | [place] [address] | + + + TYPE AND SCREEN (06/30/2017 12:33 AM) + + + | Specimen | Performing Laboratory | + + + | Blood | | + + + + + | Narrative | + + | The following orders were created for panel order TYPE AND SCREEN. | | Procedure | | Abnormality Status | | --------- | | ------ ABO & RH | | TYPE[[id number]] F | | inal result ANTIBODY | | SCREEN[[id number]] Fin | | al result Please view results for these tests on the | | individual orders. | + + MANUAL DIFFERENTIAL (06/29/2017 11:01 PM) + + + + | Component | Value | Ref Range | + + + + | NEUTROPHIL % | 7.8 (L) | 50.0 - 70.0 % | + + + + | LYMPHOCYTE % | 2.6 (L) | 18.0 - 42.0 % | + + + + | MONOCYTE % | 3.4 (L) | 3.5 - 9.0 % | + + + + | EOSINOPHIL % | 0.0 (L) | 1.0 - 3.0 % | + + + + | BASOPHIL % | 0.0 | 0.0 - 2.0 % | + + + + | IG% | 0.0Comment: Increased immature | 0.0 - 1.0 % | | | granulocytes(IG)define a left shift.IGs | | | | include metamyelocytes, myelocytes and | | | | promyelocytes. Bands are included in the | | | | neutrophil count, not the IG count, except | | | | in neonates <=60 days old where bands are | | | | reported in a manual diff. | | + + + + | ATYPICAL CELL % | 86.2 ()Comment: Atypical Cells with fine | 0.0 % | | | chromatin, high N-C ratio, prominent | | | | nucleoli and dark blue cytoplasm. | | + + + + | NEUTROPHIL # | 2.99 | 1.80 - 7.70 K/cu mm | + + + + | LYMPHOCYTE # | 1.00 | 1.00 - 4.80 K/cu mm | + + + + | MONOCYTE # | 1.30 (H) | 0.10 - 0.90 K/cu mm | + + + + | EOSINOPHIL # | 0.00 | 0.00 - 0.50 K/cu mm | + + + + | BASOPHIL # | 0.00 | 0.00 - 0.10 K/cu mm | + + + + | IG# | 0.00 | 0.00 - 0.10 K/cu mm | + + + + | ATYPICAL CELLS # | 33.07 | K/cu mm | + + + + + + + | Specimen | Performing Laboratory | + + + | Blood | [facility] LABORATORY SERVICES, CORE [address] | | | [place] [address] | + + + + + | Narrative | + + | New reference ranges for IG% and IG# effective 05/19/2017. Increased immature | | granulocytes(IG)define a left shift.IGs include metamyelocytes, myelocytes and | | promyelocytes. Bands are included in the neutrophil count, not the IG count, except in | | neonates <=60 days old where bands are reported in a manual diff. | + + CBC AND AUTO DIFF (06/29/2017 11:01 PM) + + + + | Component | Value | Ref Range | + + + + | WHITE CELL COUNT | 38.37 (H) | 3.50 - 10.80 K/cu mm | + + + + | RED CELL COUNT | 2.62 (L) | 4.00 - 5.20 M/cu mm | + + + + | HEMOGLOBIN | 7.9 (L) | 12.0 - 16.0 g/dL | + + + + | HEMATOCRIT | 23.8 (L) | 36.0 - 46.0 % | + + + + | MCV | 90.8 | 80.0 - 96.0 fL | + + + + | MCHC | 33.2 | 33.0 - 35.5 g/dL | + + + + | RDW SD | 59.3 (H) | 35.1 - 46.3 fL | + + + + | PLATELET COUNT | 10 (LL) | 150 - 400 K/cu mm [...] | + + + | Blood | [facility], [facility]ORE [address] [place] [address] | | | [place] [address] | + + + PHOSPHORUS, PLASMA (06/29/2017 11:01 PM) + +-------+ + | Component | Value | Ref Range | + +-------+ + | PHOSPHORUS, PLASMA | 2.6 | 2.4 - 4.7 mg/dL | | (LAB) | | | + +-------+ + + + + | Specimen | Performing Laboratory | + + + | Blood | [facility] LABORATORY SERVICES, CORE [address] [facility] | | | [place] [address] | + + + LDH TOTAL, PLASMA (06/29/2017 11:01 PM) + + + + | Component | Value | Ref Range | + + + + | LD TOTAL, PLASMA | 1,180 (H) | <=250 U/L | + + + + | LD CMNT | No Hemo | | + + + + + + + | Specimen | Performing Laboratory | + + + | Blood | [facility]ATORY SERVICES, CORE [address] [facility] | | | [place] [address] | + + + URIC ACID, PLASMA (06/29/2017 11:01 PM) + +-------+ + | Component | Value | Ref Range | + +-------+ + | URIC ACID, PLASMA | 3.0 | 2.5 - 6.2 mg/dL | | (LAB) | | | + +-------+ + + + + | Specimen | Performing Laboratory | + + + | Blood | [facility] LABORATORY SERVICES, CORE [address] | | | [place] [address] | + + + MAGNESIUM, PLASMA (06/29/2017 11:01 PM) + +-------+ + | Component | Value | Ref Range | + +-------+ + | MAGNESIUM,PLASMA | 2.4 | 1.6 - 2.6 mg/dL | + +-------+ + + + + | Specimen | Performing Laboratory | + + + | Blood | [facility] LABORATORY SERVICES, CORE [address] | | | [place] [address] | + + + + + | Narrative | + + | Reference range change effective 12/11/16. | + + CBC, WITH DIFFERENTIAL (06/29/2017 11:01 PM) + + + | Specimen | Performing Laboratory | + + + | Blood | | + + + + + | Narrative | + + | The following orders were created for panel order CBC, WITH DIFFERENTIAL. | | Procedure | | Abnormality Status | | --------- | | ------ CBC AND AUTO | | DIFF[[id number]] Abnormal Final | | result MANUAL | | DIFFERENTIAL[[id number]] Abnormal Final | | result Please view results for these tests on the | | individual orders. | + + COMPLETE METABOLIC SET (NA,K,CL,CO2,BUN,CREAT,GLUC,CA,AST,ALT,BILI TOTAL,ALK PHOS,ALB,PROT TOTAL) (06/29/2017 11:01 PM) + + + + | Component | Value | Ref Range | + + + + | GLUCOSE, PLASMA | 139 (H) | 70 - 99 mg/dL | | (LAB) | | | + + + + | BUN, PLASMA (LAB) | 5 (L) | 6 - 20 mg/dL | + + + + | CREATININE PLASMA | 0.47 (L) | 0.60 - 1.10 mg/dL | | (LAB) | | | + + + + | EGFR - | >60 | >60 mL/min | | JORDANIAN | | | + + + + | EGFR NON | >60 | >60 mL/min | | -JORDANIAN | | | + + + + | SODIUM, PLASMA (LAB) | 133 (L) | 136 - 145 mmol/L | + + + + | POTASSIUM, PLASMA | 3.6 | 3.4 - 5.0 mmol/L | | (LAB) | | | + + + + | CHLORIDE, PLASMA | 97 | 97 - 108 mmol/L | | [...] + + + | TOTAL PROTEIN, | 6.1 (L) | 6.4 - 8.2 g/dL | | PLASMA (LAB) | | | + + + + | ALBUMIN, PLASMA | 3.2 (L) | 3.5 - 4.7 g/dL | | (LAB) | | | + + + + | ALK PHOS | 177 (H) | 42 - 98 U/L | + + + + | AST(SGOT) | 54 (H) | <=41 U/L | + + + + | ALT (SGPT) | 37 | <=60 U/L | + + + + | ANION GAP | 7 | 4 - 11 mmol/L | + + + + | [...] | + + + | Blood | [facility] [address] [facility] [address] | | | [place] [address] | + + + + + | [...] + + CULTURE, BLOOD BACTI & YEAST [place] (06/29/2017 7:00 PM) + + + + | Component | Value | Ref Range | + + + + | CULTURE RESULT | Final Report:No Bacteria or Yeast isolated | | | | at 5 days. | | + + + + + + + | Specimen | Performing Laboratory | + + + | Blood - Antecubital | [facility] [address] [facility] | | - right | [facility] [address] | + + + CULTURE, BLOOD BACTI & YEAST (06/29/2017 7:00 PM) + + + | Specimen | Performing Laboratory | + + + | Blood - Antecubital | | | - right | | + + + + + | Narrative | + + | The following orders were created for panel order CULTURE, BLOOD BACTI & YEAST. | | Procedure | | Abnormality Status | | --------- | | ------ CULTURE, BLOOD | | BACTI & Y...[[id number]] Final | | result Please view results for these tests on the | | individual orders. | + + CULTURE, BLOOD BACTI & YEAST [place] (06/29/2017 5:31 PM) + + + + | Component | Value | Ref Range | + + + + | CULTURE RESULT | Final Report:No Bacteria or Yeast isolated | | | | at 5 days. | | + + + + + + + | Specimen | Performing Laboratory | + + + | Blood - Red port | [facility] LABORATORY SERVICES, CORE [address] [facility] | | lumen | [place] [address] | + + + CULTURE, BLOOD BACTI & YEAST (06/29/2017 5:31 PM) + + + | Specimen | Performing Laboratory | + + + | Blood | | + + + + + | Narrative | + + | The following orders were created for panel order CULTURE, BLOOD BACTI & YEAST. | | Procedure | | Abnormality Status | | --------- | | ------ CULTURE, BLOOD | | BACTI & Y...[[id number]] Final | | result Please view results for these tests on the | | individual orders. | + + TRANSTHORACIC ECHOCARDIOGRAM, ADULT (06/29/2017 3:49 PM) + + + + | Component | Value | Ref Range | + + + + | BIPLANE, EF | 69 | | + + + + | EJECTION FRACTION | 65 to 70 | | + + + + | LA DIMENSION | 3.4 | | + + + + | LVIDD | 4.8 | | + + + + | MV A VMAX | 1.2 | | + + + + | MV E? | 0.1 | | + + + + | MV E VMAX | 0.9 | | + + + + | RVSP | 40 | | + + + + | RV TAPSE | 2.6 | | + + + + | RV TDI S? | 18.3 | | + + + + | EJECTION FRACTION | 67.5 | % | | RANGE MEAN VALUE | | | + + + + + + + | Specimen | Performing Laboratory | + + + | | [facility] [address] [place] [address] | | | [place] [address] | + + + + + | Narrative | + + | [facility] Adult Echocardiography Laboratory | | [address] [place] [id number] Ph: | | Pt Name: RHEA HUTCHISON Study | | Date/Time 06/29/2017 / 3:49:49 PM | | Most recent prior: 03/04/2017 Acc #: [id number] No. previous | | echos: 2 : 1965 51 years Heart Rate: 107 bpm | | Height: 62.0 in Blood Pressure: 140/77 mm/Hg | | Weight: 199.0 lb Gender: F | | BSA: 1.91 m2 Order ID: [id number] | | Veterinary Laboratory Technician: Nathaniel BRANTLEY Referring Provider: Sarah Katz Patient | | Location: 14K Modalities Performed: 2D, Color flow, Spectral Doppler, Strain and | | Lumason contrast. Study Quality: This was a technically difficult study, but image | | quality improved with echo contrast. Imaging Limitations: There is prominent lung | | artifact seen and patient size and body habitus. Exam Indication: Cardiotoxic | | therapies; Reevaluate LV function to guide therapy History: 51-year-old woman with a | | history of COPD, depression, hypothyroidism, and AML diagnosed in late 2016 after she | | presented with pleuritic chest pain and shortness of breath in addition to profound | | leukocytosis. Patient history has been obtained from the EHR Transthoracic | | Echocardiographic Report | | + + Final | | Impressions: | | | | | | | | | | 1. The left | | ventricular cavity size is | | normal. 2. The LV | | function is | | normal. | | 3. Mild thickening/calcification of the mitral anterior leaflet (see | | below). 4. Right ventricular size, thickness and function are | | normal. 5. The estimated right ventricular systolic | | pressure is mildly elevated (RVSP = 40.2 | | mmHg). | | 6. Compared to the most recent exam dated, | | 03/04/2017, there are no significant | | changes. | | | | | | | | + + | | LV Function & Strain Data Table: + + +---+ Study Date:LVEF | | (Biplane)GLS + + +---+ 06/29/2017 68.8 % --- | | + + +---+ + +------+-------+ 03/04/2017 70.6 %-19.3 % | | + +------+-------+ 02/16/201674.8 %-24.0 % + +------+-------+ | | Description of Findings: Cardiac Rhythm: Tachycardia. Left Ventricle: The left | | ventricular cavity size is normal. Visually estimated left ventricular ejection | | fraction is 65 - 70%. There is no left ventricular hypertrophy. The ejection fraction | | is 68.8 % as measured by Delacruz's biplane method. The LV function is normal. Due to | | poor endocardial definition, ultrasound contrast was used (Lumason). Left Ventricular | | Wall Motion: Left ventricular systolic thickening is normal in all segments. Atria: | | Left atrial size is normal. Normal right atrium. Right Ventricle: Right ventricular | | size, thickness and function are normal. TAPSE measures 2.63cm. The RV TDI s' velocity | | is 18.3cm/sec. Aortic Valve: The aortic valve is trileaflet and normal in structure | | and function. Mitral Valve: The anterior leaflet is mildly thickened and/or calcified. | | Image quality limits assessment and a small mobile echodensity from the anterior | | mitral leaflet cannot be excluded. No evidence of mitral valve stenosis. No evidence | | of mitral valve regurgitation. Tricuspid Valve: The tricuspid valve is structurally | | normal. Trace tricuspid regurgitation. The tricuspid regurgitant velocity is 2.75 m/s, | | and with an assumed right atrial pressure of 10 mmHg, the estimated right ventricular | | systolic pressure is mildly elevated at 40.2 mmHg. Pulmonic Valve: The pulmonic | | valve is normal in structure and function. The peak trans pulmonic gradient is 9.0 | | mmHg. Aorta: Visualized portions of the ascending aorta and aortic root appear normal. | | Venous: The inferior vena cava was dilated, with respiratory size variation greater | | than 50%. Pericardium: No pericardial effusion is seen. 2D | | Measurements Doppler Measurements | | 2D NL Values Aortic Mitral LVID(d) 4.79 | | (3.5-5.7cm) Max Duglas 2.27 Peak E 0.92 | | cm | | m/s m/s LVID(s) 3.22 Mean | | grad 11.0 Peak A 1.20 | | cm mmHg m/s | | IVS(d) 1.00 (0.6-1.1cm) LVOT Duglas 1.76 E/A Ratio 0.77 | | cm m/s | | LVPW(d) 0.98 (0.6-1.1cm) TDI (E/e') 10.5 | | cm LVOT Diam 2.10 MV mn gd LA A/Ps | | 2D 3.40 (2.7-3.9cm) cm | | cm Tricuspid Pulmonic LA vol A/L 59.4 | | (40-73ml) TR Vmax 2.75 PV Vmax 1.5 BP | | ml | | m/s m/s LA vol A/L 31.1 (16-34) RA | | Press 10 RVOT VTI 18.2 | | index ml/m2 mmHg | | cm LA vol MOD 56.2 (40-73ml) RVSP 40 PV mn gd | | BP ml mmHg LA vol | | MOD 29.4 (16-34) | | index ml/m2 Aorta: | | Index: Ao | | Sinus 3.20 (2.1-3.5cm) 16.8 Biplane EF 68.8 | | % cm mm/m2 | | Asc | | Ao 3.20 16.8 | | (prox) cm | | mm/m2 Evaluation of chamber size and geometry is accomplished through | | the incorporation of linear, volumetric, and indexed values Report electronically | | signed by: [id number] Hector Khoury MD (06/29/2017, 6:21:10 PM) Final | + + + + | Procedure Note | + + | Interface, Ecg Results - 06/29/2017 6:21 PM [facility] | | [facility] Echocardiography Laboratory [address] [place] [address] | | [place], [place] [address] Pt Name: RHEA HUTCHISON | | Study Date/Time 06/29/2017 / 3:49:49 PMMRN: [id number] Most | | recent prior: 03/04/2017Acc #: [id number] No. previous echos: 2DOB: | | 1965 51 years Heart Rate: 107 bpmHeight: 62.0 in Blood | | Pressure: 140/77 mm/HgWeight: 199.0 lb Gender: FBSA: | | 1.91 m2 Order ID: [id number] Veterinary Laboratory Technician: Nathaniel Steele [facility] CENTERReferring | | Provider: Sarah KatzPatient Location: 14KModalities Performed: 2D, Color flow, | | Spectral Doppler, Strain and Lumason contrast.Study Quality: This was a technically | | difficult study, but image quality improved with echo contrast.Imaging Limitations: | | There is prominent lung artifact seen and patient size and body habitus.Exam Indication: | | Cardiotoxic therapies; Reevaluate LV function to guide therapyHistory: 51-year-old | | woman with a history of COPD, depression, hypothyroidism, and AML diagnosed in late 2015 | | after she presented with pleuritic chest pain and shortness of breath in addition to | | profound leukocytosis. Patient history has been obtained from the EHR Transthoracic | | Echocardiographic | | Report+ +Fi | | nal Impressions: | | | | 1. The left ventricular cavity | | size is normal. 2. The LV function is normal. | | 3. Mild thickening/calcification of the mitral | | anterior leaflet (see below). 4. Right ventricular size, thickness and function are | | normal. 5. The estimated right ventricular systolic pressure is mildly | | elevated (RVSP = 40.2 mmHg). | | 6. Compared to the most recent exam dated, 03/04/2017, there are no | | significant changes. | | | | + + LV | | Function & Strain Data Table:+ + +---+Study Date:LVEF | | (Biplane)GLS+ + +---+06/29/2017 68.8 % | | ---+ + +---++ +------+-------+03/04/2017 70.6 %-19.3 | | %+ +------+-------+02/16/201674.8 %-24.0 %+ +------+-------+ | | Description of Findings: Cardiac Rhythm: Tachycardia.Left Ventricle: The left | | ventricular cavity size is normal. Visually estimated left ventricular ejection fraction | | is 65 - 70%. There is no left ventricular hypertrophy. The ejection fraction is 68.8 % | | as measured by Delacruz's biplane method. The LV function is normal. Due to poor | | endocardial definition, ultrasound contrast was used (Lumason).Left Ventricular Wall | | Motion: Left ventricular systolic thickening is normal in all segments.Atria: Left | | atrial size is normal. Normal right atrium.Right Ventricle: Right ventricular size, | | thickness and function are normal. TAPSE measures 2.63cm. The RV TDI s' velocity is | | 18.3cm/sec.Aortic Valve: The aortic valve is trileaflet and normal in structure and | | function.Mitral Valve: The anterior leaflet is mildly thickened and/or calcified. Image | | quality limits assessment and a small mobile echodensity from the anterior mitral | | leaflet cannot be excluded. No evidence of mitral valve stenosis. No evidence of mitral | | valve regurgitation.Tricuspid Valve: The tricuspid valve is structurally normal. Trace | | tricuspid regurgitation. The tricuspid regurgitant velocity is 2.75 m/s, and with an | | assumed right atrial pressure of 10 mmHg, the estimated right ventricular systolic | | pressure is mildly elevated at 40.2 mmHg.Pulmonic Valve: The pulmonic valve is normal in | | structure and function. The peak trans pulmonic gradient is 9.0 mmHg.Aorta: Visualized | | portions of the ascending aorta and aortic root appear normal.Venous: The inferior vena | | cava was dilated, with respiratory size variation greater than 50%.Pericardium: No | | pericardial effusion is seen.2D Measurements Doppler Measurements | | 2D NL Values Aortic MitralLVID(d) 4.79 (3.5-5.7cm) Max Duglas 2.27 | | Peak E 0.92 cm m/s m/sLVID(s) | | 3.22 Mean grad 11.0 Peak A 1.20 cm | | mmHg m/sIVS(d) 1.00 (0.6-1.1cm) LVOT Duglas 1.76 E/A Ratio 0.77 | | cm m/sLVPW(d) 0.98 (0.6-1.1cm) TDI | | (E/e') 10.5 cm LVOT Diam 2.10 MV mn gdLA A/Ps 2D 3.40 | | (2.7-3.9cm) cm cm Tricuspid PulmonicLA vol A/L | | 59.4 (40-73ml) TR Vmax 2.75 PV Vmax 1.5BP ml | | m/s m/sLA vol A/L 31.1 (16-34) RA Press 10 RVOT VTI 18.2index | | ml/m2 mmHg cmLA vol MOD 56.2 (40-73ml) RVSP | | 40 PV mn gdBP ml mmHgLA vol MOD 29.4 | | (16-34)index ml/m2 Aorta: Index: | | Ao Sinus 3.20 (2.1-3.5cm) 16.8Biplane EF 68.8 % cm | | mm/m2 Asc Ao 3.20 16.8 | | (prox) cm mm/t9Vaktyfnebu of chamber size and | | geometry is accomplished through the incorporation of linear, volumetric, and indexed | | values Report electronically signed by: [id number] Hector Khoury MD (06/29/2017, 6:21:10 | | PM) Final | |Atria: Left atrial size is normal. Normal right atrium. | |Right Ventricle: Right ventricular size, thickness and function are normal. TAPSE | |measures 2.63cm. The RV TDI s' velocity is 18.3cm/sec. | |Aortic Valve: The aortic valve is trileaflet and normal in structure and function. | |Mitral Valve: The anterior leaflet is mildly thickened and/or calcified. Image | |quality limits assessment and a small mobile echodensity from the anterior mitral | |leaflet cannot be excluded. No evidence of mitral valve stenosis. No evidence of | |mitral valve regurgitation. | |Tricuspid Valve: The tricuspid valve is structurally normal. Trace tricuspid | |regurgitation. The tricuspid regurgitant velocity is 2.75 m/s, and with an assumed | |right atrial pressure of 10 mmHg, the estimated right ventricular systolic pressure | |is mildly elevated at 40.2 mmHg. | |Pulmonic Valve: The pulmonic valve is normal in structure and function. The peak | |trans pulmonic gradient is 9.0 mmHg. | |Aorta: Visualized portions of the ascending aorta and aortic root appear normal. | |Venous: The inferior vena cava was dilated, with respiratory size variation greater | |than 50%. | |Pericardium: No pericardial effusion is seen. | |2D Measurements Doppler Measurements | | | | 2D NL Values Aortic Mitral | |LVID(d) 4.79 (3.5-5.7cm) Max Duglas 2.27 Peak E 0.92 | | cm m/s m/s | |LVID(s) 3.22 Mean grad 11.0 Peak A 1.20 | | cm mmHg m/s | |IVS(d) 1.00 (0.6-1.1cm) LVOT Duglas 1.76 E/A Ratio 0.77 | | cm m/s | |LVPW(d) 0.98 (0.6-1.1cm) TDI (E/e') 10.5 | | cm LVOT Diam 2.10 MV mn gd | |LA A/Ps 2D 3.40 (2.7-3.9cm) cm | | cm Tricuspid Pulmonic | |LA vol A/L 59.4 (40-73ml) TR Vmax 2.75 PV Vmax 1.5 | |BP ml m/s m/s | |LA vol A/L 31.1 (16-34) RA Press 10 RVOT VTI 18.2 | |index ml/m2 mmHg cm | |LA vol MOD 56.2 (40-73ml) RVSP 40 PV mn gd | |BP ml mmHg | |LA vol MOD 29.4 (16-34) | |index ml/m2 Aorta: Index: | | Ao Sinus 3.20 (2.1-3.5cm) 16.8 | |Biplane EF 68.8 % cm mm/m2 | | Asc Ao 3.20 16.8 | | (prox) cm mm/m2 | |Evaluation of chamber size and geometry is accomplished through the incorporation of | |linear, volumetric, and indexed values | | | |Report electronically signed by: [id number] Hector Khoury MD (06/29/2017, 6:21:10 PM) | | | | | | | | Final | + + CT ABDOMEN AND PELVIS W IV CONTRAST (06/29/2017 2:58 PM) + + + | Specimen | Performing Laboratory | + + + | | [facility] RAD[facility] VOICE RECOGNITION | + + + + + | Narrative | + + | EXAM: CT of the abdomen and pelvis with contrast HISTORY: AML with bone marrow | | biopsy-proven relapse, general abdominal pain, immunocompromised COMPARISON: | | 03/08/16 TECHNIQUE: CT of the abdomen and pelvis with non-ionic iodinated | | intravenous contrast. Coronal and sagittal reformats were created. FINDINGS: | | LOWER THORAX: Left pleural effusion and adjacent atelectasis. LIVER: Hepatomegaly up | | to 20 cm with scattered subcentimeter areas of hypoattenuation (example axial 26, 27, | | 43, 51). BILIARY: Surgical changes from prior cholecystectomy. The common bile duct and | | cystic duct stump are mildly more prominent compared to prior with CBD measuring up to | | 10 mm, compared to 6 mm previously. This is still within normal limits and differences | | may reflect p.o. status at time of exams. No intrahepatic biliary dilatation PANCREAS: | | Unremarkable. SPLEEN: Splenomegaly up to 15 cm. Spleen enhances homogeneously. | | ADRENALS: Unremarkable. KIDNEYS/URETERS: Unremarkable. PELVIC ORGANS/BLADDER: The | | uterus is surgically absent. Bladder is partially decompressed. No adnexal masses. | | GI TRACT: Inflammatory changes are noted within the madhu-rectal fascia with thickening | | of the rectal wall and filling of the rectal lumen with stool. The bowel is otherwise | | nondilated. PERITONEUM: No free air or fluid. LYMPH NODES: No lymphadenopathy. | | VESSELS: Unremarkable. BONES AND SOFT TISSUES: Wide-based fat containing ventral | | hernia. No acute osseous abnormality. IMPRESSION: 1. Uncomplicated proctitis. | | 2. Hepatomegaly and splenomegaly. Heterogeneity of liver with scattered subcentimeter | | hypoattenuating areas. Differential includes infiltrative AML, extra medullary | | hematopoiesis or microabscesses. Preliminary results were discussed with Dr. Nielson | | at [address] Anthony, radiologist-resident. I have personally reviewed the | | images and, if necessary, edited the report. I agree with the report as now | | presented. | + + + + | Procedure Note | + + | Service Account, Radiant Res In Interface - 06/29/2017 7:41 PM PST EXAM: CT of the | | abdomen and pelvis with contrastHISTORY: AML with bone marrow biopsy-proven relapse, | | general abdominal pain, immunocompromisedCOMPARISON: 03/08/16TECHNIQUE: CT of the | | abdomen and pelvis with non-ionic iodinated intravenous contrast. Coronal and sagittal | | reformats were created.FINDINGS:LOWER THORAX: Left pleural effusion and adjacent | | atelectasis.LIVER: Hepatomegaly up to 20 cm with scattered subcentimeter areas of | | hypoattenuation (example axial 26, 27, 43, 51).BILIARY: Surgical changes from prior | | cholecystectomy. The common bile duct and cystic duct stump are mildly more prominent | | compared to prior with CBD measuring up to 10 mm, compared to 6 mm previously. This is | | still within normal limits and differences may reflect p.o. status at time of exams. No | | intrahepatic biliary dilatationPANCREAS: Unremarkable.SPLEEN: Splenomegaly up to 15 cm. | | Spleen enhances homogeneously.ADRENALS: Unremarkable.KIDNEYS/URETERS: | | Unremarkable.PELVIC ORGANS/BLADDER: The uterus is surgically absent. Bladder is | | partially decompressed. No adnexal masses.GI TRACT: Inflammatory changes are noted | | within the madhu-rectal fascia with thickening of the rectal wall and filling of the | | rectal lumen with stool. The bowel is otherwise nondilated.PERITONEUM: No free air or | | fluid.LYMPH NODES: No lymphadenopathy.VESSELS: Unremarkable.BONES AND SOFT TISSUES: | | Wide-based fat containing ventral hernia. No acute osseous abnormality.IMPRESSION: 1. | | Uncomplicated proctitis.2. Hepatomegaly and splenomegaly. Heterogeneity of liver with | | scattered subcentimeter hypoattenuating areas. Differential includes infiltrative AML, | | extra medullary hematopoiesis or microabscesses.Preliminary results were discussed with | | Dr. Nielson at [address] Anthony, radiologist-resident.I have personally reviewed the | | images and, if necessary, edited the report. I agree with the report as now presented. | |PERITONEUM: No free air or fluid. | | | |LYMPH NODES: No lymphadenopathy. | |VESSELS: Unremarkable. | | | |BONES AND SOFT TISSUES: Wide-based fat containing ventral hernia. No acute osseous abnormal ity. | | | |IMPRESSION: | | | |1. Uncomplicated proctitis. | | | |2. Hepatomegaly and splenomegaly. Heterogeneity of liver with scattered subcentimeter hypoa ttenuating areas. Differential includes infiltrative AML, extra medullary hematopoiesis or m icroabscesses. | | | |Preliminary results were discussed with Dr. Nielson at [address] Anthony, radiologist-res ident. | | | | | |I have personally reviewed the images and, if necessary, edited the report. I agree with t he report as now presented. | + + CTA CHEST PULMONARY EMBOLISM W CONTRAST (06/29/2017 2:57 PM) + + + | Specimen | Performing Laboratory | + + + | | [facility] VO[facility] RECOGNITION | + + + + + | Narrative | + + | EXAM: CTA CHEST PULMONARY EMBOLISM HISTORY: AML, recent bone marrow aspirate | | consistent with recurrence, now with left-sided pleuritic chest pain COMPARISON: | | 06/28/17, 03/04/17, 02/24/16 TECHNIQUE: Following uneventful administration of 80 ml | | Omnipaque 350 intravenous contrast helical scanning was obtained of the chest and | | reviewed in soft tissue and lung algorithm. Oblique MIP images were also generated. | | FINDINGS: Opacification is adequate for assessment of pulmonary artery emboli. | | No filling defect in the pulmonary arteries to the proximal subsegmental level. No CT | | evidence of right heart strain. Small left pleural effusion with adjacent | | atelectasis involving the inferior lingular set and of the left upper lobe and the basal | | segments of the left lower lobe. Unchanged large left thyroid nodule, measuring | | about 3 cm. No thoracic adenopathy. No pneumothorax. Heart is unremarkable. Trace | | pericardial effusion. No acute osseous abnormality. Visualized portions of the upper | | abdomen demonstrate hepatomegaly. IMPRESSION: 1. No pulmonary embolism or | | evidence of right heart strain. 2. Small left pleural effusion with adjacent | | atelectasis. 3. Redemonstration of 3 cm left thyroid nodule. I have | | personally reviewed the images and, if necessary, edited the report. I agree with the | | report as now presented. | + + + + | Procedure Note | + + | Service Account, Radiant Res In Interface - 06/29/2017 7:16 PM PST EXAM: CTA CHEST | | PULMONARY EMBOLISM HISTORY: AML, recent bone marrow aspirate consistent with recurrence, | | now with left-sided pleuritic chest painCOMPARISON: 06/28/17, 03/04/17, 02/24/16TECHNIQUE: | | Following uneventful administration of 80 ml Omnipaque 350 intravenous contrast helical | | scanning was obtained of the chest and reviewed in soft tissue and lung algorithm. | | Oblique MIP images were also generated.FINDINGS:Opacification is adequate for assessment | | of pulmonary artery emboli.No filling defect in the pulmonary arteries to the proximal | | subsegmental level. No CT evidence of right heart strain.Small left pleural effusion | | with adjacent atelectasis involving the inferior lingular set and of the left upper lobe | | and the basal segments of the left lower lobe.Unchanged large left thyroid nodule, | | measuring about 3 cm. No thoracic adenopathy. No pneumothorax. Heart is unremarkable. | | Trace pericardial effusion. No acute osseous abnormality. Visualized portions of the | | upper abdomen demonstrate hepatomegaly.IMPRESSION:1. No pulmonary embolism or evidence | | of right heart strain.2. Small left pleural effusion with adjacent atelectasis.3. | | Redemonstration of 3 cm left thyroid nodule.I have personally reviewed the images and, | | if necessary, edited the report. I agree with the report as now presented. | |Unchanged large left thyroid nodule, measuring about 3 cm. No thoracic adenopathy. No pneum othorax. Heart is unremarkable. Trace pericardial effusion. No acute osseous abnormality. Vi sualized portions of the upper abdomen demonstrate hepatomegaly. | | | |IMPRESSION: | | | |1. No pulmonary embolism or evidence of right heart strain. | | | |2. Small left pleural effusion with adjacent atelectasis. | | | |3. Redemonstration of 3 cm left thyroid nodule. | | | | | |I have personally reviewed the images and, if necessary, edited the report. I agree with t he report as now presented. | + + PHOSPHORUS, PLASMA (06/29/2017 2:31 PM) + +-------+ + | Component | Value | Ref Range | + +-------+ + | PHOSPHORUS, PLASMA | 2.8 | 2.4 - 4.7 mg/dL | | (LAB) | | | + +-------+ + + + + | Specimen | Performing Laboratory | + + + | Blood | [facility], [facility] [address] | | | [place] [address] | + + + BASIC METABOLIC SET (NA, K, CL, TCO2, BUN, CR, GLU, CA) (06/29/2017 2:31 PM) + + + + | Component | Value | Ref Range | + + + + | GLUCOSE, PLASMA | 108 (H) | 70 - 99 mg/dL | | (LAB) | | | + + + + | BUN, PLASMA (LAB) | 5 (L) | 6 - 20 mg/dL | + + + + | CREATININE PLASMA | 0.51 (L) | 0.60 - 1.10 mg/dL | | (LAB) | | | + + + + | EGFR - | >60 | >60 mL/min | | JORDANIAN | | | + + + + | EGFR NON | >60 | >60 mL/min | | -JORDANIAN | | | + + + + | SODIUM, PLASMA (LAB) | 134 (L) | 136 - 145 mmol/L | + + + + | POTASSIUM, PLASMA | 4.0 | 3.4 - 5.0 mmol/L | | [...] + + + | ANION GAP | 5 | 4 - 11 mmol/L | + + + + | POTASSIUM CMNT | No Hemo | | + + + + + + + | Specimen | Performing Laboratory | + + + | Blood | [facility], [place] [address] | | | [place] [address] | + + + + + | [...] Rapidly changing kidney function | + + LDH TOTAL, PLASMA (06/29/2017 2:31 PM) + + + + | Component | Value | Ref Range | + + + + | LD TOTAL, PLASMA | 1,111 (H) | <=250 U/L | + + + + | LD CMNT | No Hemo | | + + + + + + + | Specimen | Performing Laboratory | + + + | Blood | [facility], [place] [address] [place] [address] | | | [facility] [address] | + + + URIC ACID, PLASMA (06/29/2017 2:31 PM) + +-------+ + | Component | Value | Ref Range | + +-------+ + | URIC ACID, PLASMA | 3.7 | 2.5 - 6.2 mg/dL | | (LAB) | | | + +-------+ + + + + | Specimen | Performing Laboratory | + + + | Blood | [facility], [place] [address] | | | [place] [address] | + + + RESPIRATORY PATHOGEN PANEL PCR (06/29/2017 2:20 PM) + + + + | Component | Value | Ref Range | + + + + | ADENOVIRUS PCR | Not Detected | Not Detected | + + + + | CORONAVIRUS 229E PCR | Not Detected | Not Detected | + + + + | CORONAVIRUS HKU1 PCR | Not Detected | Not Detected | + + + + | CORONAVIRUS NL63 PCR | Not Detected | Not Detected | + + + + | CORONAVIRUS OC43 PCR | Not Detected | Not Detected | + + + + | METAPNEUMOVIRUS PCR | Not Detected | Not Detected | + + + + | RHINOVIRUS/ENTEROVIR | Not Detected | Not Detected | | US PCR | | | + + + + | INFLUENZA A PCR | Not Detected | Not Detected | + + + + | INFLUENZA A SUBTYPE | Not Detected | Not Detected | | H1 PCR | | | + + + + | INFLUENZA A H1-2009 | Not Detected | Not Detected | | PCR | | | + + + + | INFLUENZA A H3 PCR | Not Detected | Not Detected | + + + + | INFLUENZA B PCR | Not Detected | Not Detected | + + + + | PARAINFLUENZA 1 PCR | Not Detected | Not Detected | + + + + | PARAINFLUENZA 2 PCR | Not Detected | Not Detected | + + + + | PARAINFLUENZA 3 PCR | Not Detected | Not Detected | + + + + | PARAINFLUENZA 4 PCR | Not Detected | Not Detected | + + + + | RSV PCR | Not Detected | Not Detected | + + + + | BORDETELLA PERTUSSIS | Not Detected | Not Detected | | PCR | | | + + + + | CHLAMYDOPHILA | Not Detected | Not Detected | | PNEUMONIAE PCR | | | + + + + | MYCOPLASMA | Not Detected | Not Detected | | PNEUMONIAE PCR | | | + + + + + + + | Specimen | Performing Laboratory | + + + | Washing - Nasal | [facility], [place] [address] [place] [address] | | | [place] [address] | + + + 12 LEAD ECG (06/29/2017 12:52 PM) + + + + | Component | Value | Ref Range | + + + + | VENTRICULAR RATE | 106 | bpm | + + + + | ATRIAL RATE | 106 | ms | + + + + | P-R INTERVAL | 121 | ms | + + + + | P AXIS | 46 | deg | + + + + | QRS DURATION | 97 | ms | + + + + | QT | 345 | ms | + + + + | QTCB | 459 | ms | + + + + | R AXIS | -41 | deg | + + + + | T AXIS | 21 | deg | + + + + | ECG IMPRESSION | Sinus tachycardia- OTHERWISE NORMAL ECG - | | + + + + | ECG IMPRESSION | Electronically signed by: MITCHELL CALDERA | | | | 06-29-2017 14:13:40 | | + + + + + + + | Specimen | Performing Laboratory | + + + | | [facility] [address] [place] [address] | | | [place] [address] | + + + X-RAY PORTABLE CHEST TUBE OR CATH EVAL X-RAY (06/29/2017 8:20 AM) + + + | Specimen | Performing Laboratory | + + + | | [facility] | + + + + + | Narrative | + + | EXAM: AR CHEST TUBE OR CATH EVAL X-RAY 06/29/17 07:47:44 HISTORY: PICC placement | | COMPARISON: 03/15/17 FINDINGS: There is a right-sided PICC line with the tip | | extending to the cavoatrial junction. The cardiomediastinal contour is normal. There is | | right basilar atelectasis. There is a small left-sided and trace right-sided pleural | | effusion. There is no pulmonary edema or pneumothorax. The bones are intact. | | IMPRESSION: Right-sided PICC line with the tip at the cavoatrial junction. No | | evidence of pneumothorax. Small left-sided and trace right-sided pleural effusions. | | Right basilar atelectasis. I have personally reviewed the images and, if | | necessary, edited the report. I agree with the report as now presented. | + + + + | Procedure Note | + + | Service Account, Radiant Res In Interface - 06/29/2017 11:21 AM PST EXAM: AR CHEST | | TUBE OR CATH EVAL X-RAY 06/29/17 07:47:44HISTORY: PICC placementCOMPARISON: | | 03/15/17FINDINGS:There is a right-sided PICC line with the tip extending to the | | cavoatrial junction. The cardiomediastinal contour is normal. There is right basilar | | atelectasis. There is a small left-sided and trace right-sided pleural effusion. There | | is no pulmonary edema or pneumothorax. The bones are intact.IMPRESSION:Right-sided PICC | | line with the tip at the cavoatrial junction. No evidence of pneumothorax.Small | | left-sided and trace right-sided pleural effusions.Right basilar atelectasis.I have | | personally reviewed the images and, if necessary, edited the report. I agree with the | | report as now presented. | | | |IMPRESSION: | | | |Right-sided PICC line with the tip at the cavoatrial junction. No evidence of pneumothorax. | |Small left-sided and trace right-sided pleural effusions. | |Right basilar atelectasis. | | | | | |I have personally reviewed the images and, if necessary, edited the report. I agree with t he report as now presented. | + + RBC MORPHOLOGY (06/28/2017 10:30 PM) + + + + | Component | Value | Ref Range | + + + + | SCHISTOCYTES | 1+ (<1-2cells/HPF) | | + + + + + + + | Specimen | Performing Laboratory | + + + | Blood | [facility], [place] [address] [place] [address] | | | [place] [address] | + + + MANUAL DIFFERENTIAL (06/28/2017 10:30 PM) + + + + | Component | Value | Ref Range | + + + + | NEUTROPHIL % | 5.2 (L) | 50.0 - 70.0 % | + + + + | LYMPHOCYTE % | 4.3 (L) | 18.0 - 42.0 % | + + + + | MONOCYTE % | 5.2 | 3.5 - 9.0 % | + + + + | EOSINOPHIL % | 1.7 | 1.0 - 3.0 % | + + + + | BASOPHIL % | 0.0 | 0.0 - 2.0 % | + + + + | IG% | 0.0Comment: Increased immature | 0.0 - 1.0 % | | | granulocytes(IG)define a left shift.IGs | | | | include metamyelocytes, myelocytes and | | | | promyelocytes. Bands are included in the | | | | neutrophil count, not the IG count, except | | | | in neonates <=60 days old where bands are | | | | reported in a manual diff. | | + + + + | ATYPICAL CELL % | 83.6 (HH)Comment: Fine chromatin., Dark | 0.0 % | | | blue cytoplasm., High N-C Ratio. | | + + + + | NEUTROPHIL # | 1.80 | 1.80 - 7.70 K/cu mm | + + + + | LYMPHOCYTE # | 1.49 | 1.00 - 4.80 K/cu mm | + + + + | MONOCYTE # | 1.80 (H) | 0.10 - 0.90 K/cu mm | + + + + | EOSINOPHIL # | 0.59 (H) | 0.00 - 0.50 K/cu mm | + + + + | BASOPHIL # | 0.00 | 0.00 - 0.10 K/cu mm | + + + + | IG# | 0.00 | 0.00 - 0.10 K/cu mm | + + + + | ATYPICAL CELLS # | 28.97 | K/cu mm | + + + + + + + | Specimen | Performing Laboratory | + + + | Blood | [facility], [place] [address] | | | [place] [address] | + + + + + | Narrative | + + | New reference ranges for IG% and IG# effective 05/19/2017. Increased immature | | granulocytes(IG)define a left shift.IGs include metamyelocytes, myelocytes and | | promyelocytes. Bands are included in the neutrophil count, not the IG count, except in | | neonates <=60 days old where bands are reported in a manual diff. | + + CBC AND AUTO DIFF (06/28/2017 10:30 PM) + + + + | Component | Value | Ref Range | + + + + | WHITE CELL COUNT | 34.65 (H) | 3.50 - 10.80 K/cu mm | + + + + | RED CELL COUNT | 2.61 (L) | 4.00 - 5.20 M/cu mm | + + + + | HEMOGLOBIN | 7.8 (L) | 12.0 - 16.0 g/dL | + + + + | HEMATOCRIT | 23.3 (L) | 36.0 - 46.0 % | + + + + | MCV | 89.3 | 80.0 - 96.0 fL | + + + + | MCHC | 33.5 | 33.0 - 35.5 g/dL | + + + + | RDW SD | 57.9 (H) | 35.1 - 46.3 fL | [...] | + + + | Blood | [facility], [place] [address] [place] [address] | | | [place] [address] | + + + CBC, WITH DIFFERENTIAL (06/28/2017 10:30 PM) + + + | Specimen | Performing Laboratory | + + + | Blood | | + + + + + | Narrative | + + | The following orders were created for panel order CBC, WITH DIFFERENTIAL. | | Procedure | | Abnormality Status | | --------- | | ------ CBC AND AUTO | | DIFF[[id number]] Abnormal Final | | result MANUAL | | DIFFERENTIAL[[id number]] Abnormal Final | | result RBC | | MORPHOLOGY[[id number]] | | Final result Please view results for these tests on the | | individual orders. | + + LDH TOTAL, PLASMA (06/28/2017 10:30 PM) + + + + | Component | Value | Ref Range | + + + + | LD TOTAL, PLASMA | 1,015 (H) | <=250 U/L | + + + + | LD CMNT | No Hemo | | + + + + + + + | Specimen | Performing Laboratory | + + + | Blood | [facility], [place] [address] | | | [place] [address] | + + + BILIRUBIN DIRECT (06/28/2017 10:30 PM) + +---------+ + | Component | Value | Ref Range | + +---------+ + | BILIRUBIN DIRECT | 0.1 | 0.0 - 0.3 mg/dL | + +---------+ + | BILI D CMNT | No Hemo | | + +---------+ + + + + | Specimen | Performing Laboratory | + + + | Blood | [facility], [place] [address] | | | [place] [address] | + + + URIC ACID, PLASMA (06/28/2017 10:30 PM) + +-------+ + | Component | Value | Ref Range | + +-------+ + | URIC ACID, PLASMA | 4.7 | 2.5 - 6.2 mg/dL | | (LAB) | | | + +-------+ + + + + | Specimen | Performing Laboratory | + + + | Blood | [facility], [place] [address] | | | [place] [address] | + + + PHOSPHORUS, PLASMA (06/28/2017 10:30 PM) + +-------+ + | Component | Value | Ref Range | + +-------+ + | PHOSPHORUS, PLASMA | 3.6 | 2.4 - 4.7 mg/dL | | (LAB) | | | + +-------+ + + + + | Specimen | Performing Laboratory | + + + | Blood | [facility], [place] [address] | | | [place] [address] | + + + MAGNESIUM, PLASMA (06/28/2017 10:30 PM) + +-------+ + | Component | Value | Ref Range | + +-------+ + | MAGNESIUM,PLASMA | 2.6 | 1.6 - 2.6 mg/dL | + +-------+ + + + + | Specimen | Performing Laboratory | + + + | Blood | [facility], [place] [address] | | | [place] [address] | + + + + + | Narrative | + + | Reference range change effective 12/11/16. | + + COMPLETE METABOLIC SET (NA,K,CL,CO2,BUN,CREAT,GLUC,CA,AST,ALT,BILI TOTAL,ALK PHOS,ALB,PROT TOTAL) (06/28/2017 10:30 PM) + +---------+ + | Component | Value | Ref Range | + +---------+ + | GLUCOSE, PLASMA | 108 (H) | 70 - 99 mg/dL | | (LAB) | | | + +---------+ + | BUN, PLASMA (LAB) | 5 (L) | 6 - 20 mg/dL | + +---------+ + | CREATININE PLASMA | 0.60 | 0.60 - 1.10 mg/dL | | (LAB) | | | + +---------+ + | EGFR - | >60 | >60 mL/min | | JORDANIAN | | | + +---------+ + | EGFR NON | >60 | >60 mL/min | | -JORDANIAN | | | + +---------+ + | [...] + +---------+ + | CALCIUM, PLASMA | 8.1 (L) | 8.6 - 10.2 mg/dL | | (LAB) | | | + +---------+ + | CALCIUM(ALB | 8.6 | 8.6 - 10.2 mg/dL | | CORRECTED) | | | + +---------+ + | BILIRUBIN TOTAL | 0.4 | 0.3 - 1.2 mg/dL | + +---------+ + | TOTAL PROTEIN, | 6.0 (L) | 6.4 - 8.2 g/dL | | PLASMA (LAB) | | | + +---------+ + | ALBUMIN, PLASMA | 3.4 (L) | 3.5 - 4.7 g/dL | | (LAB) | | | + +---------+ + | ALK PHOS | 160 (H) | 42 - 98 U/L | + +---------+ + | AST(SGOT) | 54 (H) | <=41 U/L | + +---------+ + | ALT (SGPT) | 44 | <=60 U/L | + +---------+ + | ANION GAP | 7 | 4 - 11 mmol/L | + +---------+ + | ANION [...] | + + + | Blood | [facility], [place] [address] | | | [place] [address] | + + + + + | [...] COPD type (HCC) | + + | Immunocompromised state (HCC) | + + | Unspecified immunity deficiency | + + | Pneumonia with the fungal infection aspergillosis (HCC) | + + | Aspergillosis | + + | Abnormal CXR | + + | Other nonspecific abnormal finding of lung field | + + | Anxiety and depression | + + | Dysthymic disorder | + + | Learning disability | + + | Other specific developmental learning difficulties | + + | Rash of face | + + | Rash and other nonspecific skin eruption | + + | Neutropenic fever (HCC) | + + | Neutropenia, unspecified | + + | Pancytopenia due to antineoplastic chemotherapy (HCC) | + + | Antineoplastic chemotherapy induced pancytopenia | + + | Transaminitis | + + | Nonspecific elevation of levels of transaminase or lactic acid dehydrogenase (LDH) | + + | Hepatosplenomegaly | + + | Other chronic nonalcoholic liver disease | + + | Pleural effusion | + + | Unspecified pleural effusion | + + | Proctitis | + + | Other specified disorder of rectum and anus | + + | Protein-calorie malnutrition, mild (HCC) | + + | Malnutrition of mild degree | + + | Chemotherapy induced diarrhea | + + | Diarrhea | + + Admitting Diagnoses + + | Diagnosis | + + | Leukemia (HCC) - LEUKEMIA | + + | Unspecified leukemia, without mention of having achieved remission | + + Administered Medications + +--------+ +--------+------+------+ | Medication Order | MAR | Action | Dose | Rate | Site | | | Action | Date | | | | + +--------+ +--------+------+------+ | acetaminophen (TYLENOL) tablet | Given | 07/28/2017 | 650 mg | | | | 650 mg 650 mg, oral, EVERY 6 | | 19:53 | | | | | HOURS NEEDED, Starting Sun | | PDT | | | | | 06/30/17 at 0323, Until Maribel 08/08/17 | | | | | | | at 1835, fever | | | | | | + +--------+ +--------+------+------+ +-------+ +--------+---+---+ | Given | 08/04/2017 | 650 mg | | | | | 01:14 | | | | | | PDT | | | | +-------+ +--------+---+---+ | Given | | 650 mg | | | | | 8 23:47 | | | | | | PDT | | | | +-------+ +--------+---+---+ +---+---+ | | | +---+---+ + +-------+ +--------+---+---+ | acyclovir (ZOVIRAX) tablet 800 | Given | | 800 mg | | | | mg 800 mg, oral, DAILY, First | | 8 09:14 | | | | | dose on 06/29/17 at 0900, Until | | PDT | | | | | Discontinued | | | | | | + +-------+ +--------+---+---+ +-------+ +--------+---+---+ | Given | | 800 mg | | | | | 8 09:13 | | | | | | PDT | | | | +-------+ +--------+---+---+ | Given | | 800 mg | | | | | 8 09:08 | | | | | | PDT | | | | +-------+ +--------+---+---+ +---+---+ | | | +---+---+ + +-------+ +--------+---+---+ | albuterol (PROVENTIL, VENTOLIN) | Given | 08/01/2017 | 1 puff | | | | 90 mcg/actuation inhaler 1 puff | | 23:34 | | | | | 1 puff, inhalation, EVERY 6 | | PDT | | | | | HOURS NEEDED, Starting Fri | | | | | | | 06/28/17 at 2251, Until Maribel 08/08/17 | | | | | | | at 1835, shortness of breath, | | | | | | | wheezing | | | | | | + +-------+ +--------+---+---+ +---+---+ | | | +---+---+ + +-------+ +--------+---+---+ | allopurinol (ZYLOPRIM) tablet | Given | 06/29/2017 | 300 mg | | | | 300 mg 300 mg, oral, TWICE | | 01:13 | | | | | DAILY, First dose on 06/29/17 | | PST | | | | | at 0200, Until Discontinued | | | | | | + +-------+ +--------+---+---+ +---+---+ | | | +---+---+ + +-------+ +--------+---+---+ | allopurinol (ZYLOPRIM) tablet | Given | 07/02/2017 | 300 mg | | | | 300 mg 300 mg, oral, DAILY, | | 09:15 | | | | | First dose on 06/30/17 at 0900, | | PST | | | | | Until Discontinued | | | | | | + +-------+ +--------+---+---+ +-------+ +--------+---+---+ | Given | 07/03/2017 | 300 mg | | | | | 09:14 | | | | | | PST | | | | +-------+ +--------+---+---+ | Given | 07/04/2017 | 300 mg | | | | | 08:33 | | | | | | PST | | | | +-------+ +--------+---+---+ +---+---+ | | | +---+---+ + + + +------+---+---+ | alteplase (CATHFLO ACTIVASE) | Line | | 2 mg | | | | injection 2 mg 2 mg, | Lock | 8 06:00 | | | | | Intracatheter, ONCE, 1 dose, Tue | Lis | PDT | | | | | 07/09/17 at 0645 | d | | | | | + + + +------+---+---+ +---+---+ | | | +---+---+ + + + +------+---+---+ | alteplase (CATHFLO ACTIVASE) | Line | 08/01/2017 | 2 mg | | | | injection 2 mg 2 mg, | Lock | 05:51 | | | | | Intracatheter, NEEDED, | Instille | PDT | | | | | Starting 07/13/17 at 1620, | d | | | | | | Until [facility] 08/08/17 at 1835, per | | | | | | | catheter protocol | | | | | | + + + +------+---+---+ + + +------+---+---+ | Line Lock Instilled | 08/02/2017 | 2 mg | | | | | 22:20 | | | | | | PDT | | | | + + +------+---+---+ | Line Lock Instilled | | 2 mg | | | | | 8 06:32 | | | | | | PDT | | | | + + +------+---+---+ +---+---+ | | | +---+---+ + +-------+ +-------+---+---+ | aluminum-magnesium | Given | 07/29/2017 | 30 mL | | | | hydroxide-simethicone (MAALOX; | | 20:11 | | | | | MYLANTA) 200-200-20 mg/5 mL | | PDT | | | | | suspension 30 mL 30 mL, oral, | | | | | | | FOUR TIMES DAILY NEEDED, | | | | | | | Starting 07/06/17 at 0818, | | | | | | | Until [facility] 08/08/17 at 1835, | | | | | | | dyspepsia | | | | | | + +-------+ +-------+---+---+ +-------+ +-------+---+---+ | Given | 08/03/2017 | 30 mL | | | | | 21:39 | | | | | | PDT | | | | +-------+ +-------+---+---+ | Given | 08/05/2017 | 30 mL | | | | | 17:24 | | | | | | PDT | | | | +-------+ +-------+---+---+ +---+---+ | | | +---+---+ + +-------+ +-------+---+---+ | amLODIPine (NORVASC) tablet 10 | Given | | 10 mg | | | | mg 10 mg, oral, DAILY, First | | 8 09:14 | | | | | dose on 06/29/17 at 0900, Until | | PDT | | | | | Discontinued | | | | | | + +-------+ +-------+---+---+ +-------+ +-------+---+---+ | Given | | 10 mg | | | | | 8 09:13 | | | | | | PDT | | | | +-------+ +-------+---+---+ | Given | | 10 mg | | | | | 8 09:08 | | | | | | PDT | | | | +-------+ +-------+---+---+ +---+---+ | | | +---+---+ + +-------+ + +---+---+ | calcium carbonate chewable | Given | | 400 mg | | | | (TUMS) tablet 400 mg elemental | | 8 18:53 | elementa | | | | 400 mg elemental (1,000 mg total | | PDT | l | | | | salt), oral, ONCE, 1 dose, Sun | | | | | | | 07/07/17 at 1915 | | | | | | + +-------+ + +---+---+ +---+---+ | | | +---+---+ + + + + + +---+ | cytarabine (CYTOSAR) 3,000 mg | Rate/Dos | 07/05/2017 | 3,000 mg | 23 mL/hr | | | in NaCl 0.9 % IV 3,000 mg (1,500 | e Verify | 00:00 | | | | | mg/m2 | | PST | | | | | 2 m2 Treatment plan recorded | | | | | | | BSA), intravenous, Administer | | | | | | | over 24 Hours, EVERY 24 HOURS, 4 | | | | | | | doses, First dose on 07/01/17 | | | | | | | at 1500, Last dose on [facility] 07/04/17 | | | | | | | at 1500, Continuous infusion | | | | | | | daily on days 1 through 4. | | | | | | | Titrate rate to complete bag in | | | | | | | 24 hours. HIGH ALERT | | | | | | | MEDICATION-CHEMOTHERAPY | | | | | | + + + + + +---+ + + + + +---+ | Rate/Dose Verify | 07/05/2017 | 3,000 mg | 23 mL/hr | | | | 06:00 | | | | | | PST | | | | + + + + +---+ | Rate/Dose Verify | 07/05/2017 | 3,000 mg | 23 mL/hr | | | | 12:22 | | | | | | PST | | | | + + + + +---+ +---+---+ | | | +---+---+ + +-------+ +-------+---+---+ | dexamethasone (DECADRON) tablet | Given | 07/02/2017 | 20 mg | | | | 20 mg 20 mg, oral, EVERY 24 | | 13:41 | | | | | HOURS, 4 doses, First dose on Mon | | PST | | | | | 07/01/17 at 1400, Last dose on [facility] | | | | | | | 07/04/17 at 1400 | | | | | | + +-------+ +-------+---+---+ +-------+ +-------+---+---+ | Given | 07/03/2017 | 20 mg | | | | | 13:39 | | | | | | PST | | | | +-------+ +-------+---+---+ | Given | 07/04/2017 | 20 mg | | | | | 13:12 | | | | | | PST | | | | +-------+ +-------+---+---+ +---+---+ | | | +---+---+ + +-------+ +-------+---+---+ | dextromethorphan-guaiFENesin | Given | 08/04/2017 | 10 mL | | | | (ROBITUSSIN DM) 10-100 mg/5 mL | | 09:11 | | | | | liquid 10 mL 10 mL, oral, EVERY | | PDT | | | | | 4 HOURS NEEDED, Starting [facility] | | | | | | | 08/01/17 at 2315, Until [facility] 08/08/17 | | | | | | | at 1835, cough | | | | | | + +-------+ +-------+---+---+ +-------+ +-------+---+---+ | Given | 08/04/2017 | 10 mL | | | | | 20:40 | | | | | | PDT | | | | +-------+ +-------+---+---+ | Given | 08/05/2017 | 10 mL | | | | | 17:19 | | | | | | PDT | | | | +-------+ +-------+---+---+ + +---+ | | | + +---+ | dextrose 50 % in water IV 25 mL | | | 25 mL, intravenous, NEEDED, | | | Starting Sat07/05/17 at 0758, | | | Until [facility] 08/08/17 at 1835, CBG | | | less than 70 mg/dL if patient | | | unable to take PO, per Adult | | | Hypoglycemia Protocol | | + +---+ | | | + +---+ + +-------+ +-------+---+---+ | | Given | | 10 mL | | | | [id number] | | 8 06:43 | | | | | (SPECIAL MOUTHWASH) suspension | | PDT | | | | | (compound) 5-10 mL 5-10 mL, | | | | | | | oral, FOUR TIMES DAILY NEEDED, | | | | | | | Starting 07/08/17 at 1859, | | | | | | | Until [facility] 08/08/17 at 1835, sore | | | | | | | mouth | | | | | | + +-------+ +-------+---+---+ +-------+ +-------+---+---+ | Given | | 10 mL | | | | | 8 15:29 | | | | | | PDT | | | | +-------+ +-------+---+---+ | Given | | 10 mL | | | | | 8 19:40 | | | | | | PDT | | | | +-------+ +-------+---+---+ + +---+ | | | + +---+ | diphenhydrAMINE-zinc acetate | | | (BENADRYL ITCH STOPPING) 2-0.1 % | | | cream topical, FOUR TIMES DAILY | | | NEEDED, Starting 07/17/17 | | | at 1217, Until [facility] 08/08/17 at | | | 1835, rash | | + +---+ | | | + +---+ + +-------+ +-------+---+---+ | DULoxetine (CYMBALTA) capsule | Given | | 90 mg | | | | 90 mg 90 mg, oral, DAILY, First | | 8 09:15 | | | | | dose on 06/29/17 at 0900, Until | | PDT | | | | | Discontinued | | | | | | + +-------+ +-------+---+---+ +-------+ +-------+---+---+ | Given | | 90 mg | | | | | 8 09:13 | | | | | | PDT | | | | +-------+ +-------+---+---+ | Given | | 90 mg | | | | | 8 09:08 | | | | | | PDT | | | | +-------+ +-------+---+---+ +---+---+ | | | +---+---+ + +-------+ +--------+---+---+ | fentaNYL (SUBLIMAZE) injection | Given | 07/02/2017 | 25 mcg | | | | 25-50 mcg 25-50 mcg, | | 20:48 | | | | | intravenous, EVERY 2 HOURS | | PST | | | | | NEEDED, Starting 06/29/17 at | | | | | | | 1648, Until [facility] 08/08/17 at 1835, | | | | | | | severe pain | | | | | | + +-------+ +--------+---+---+ +-------+ +--------+---+---+ | Given | | 25 mcg | | | | | 8 22:00 | | | | | | PDT | | | | +-------+ +--------+---+---+ | Given | | 25 mcg | | | | | 8 17:24 | | | | | | PDT | | | | +-------+ +--------+---+---+ +---+---+ | | | +---+---+ + +-------+ +-------+---+---+ | furosemide (LASIX) injection 20 | Given | 07/03/2017 | 20 mg | | | | mg 20 mg, intravenous, ONCE, 1 | | 13:39 | | | | | dose, 07/03/17 at 1230 | | PST | | | | + +-------+ +-------+---+---+ +---+---+ | | | +---+---+ + +-------+ +-------+---+---+ | furosemide (LASIX) injection 20 | Given | 07/04/2017 | 20 mg | | | | mg 20 mg, intravenous, ONCE, 1 | | 13:13 | | | | | dose, [facility] 07/04/17 at 1230 | | PST | | | | + +-------+ +-------+---+---+ +---+---+ | | | +---+---+ + +-------+ +-------+---+---+ | furosemide (LASIX) injection 20 | Given | 08/04/2017 | 20 mg | | | | mg 20 mg, intravenous, ONCE, 1 | | 13:21 | | | | | dose, [place] 08/04/17 at 1100 | | PDT | | | | + +-------+ +-------+---+---+ +---+---+ | | | +---+---+ + +-------+ +-------+---+---+ | furosemide (LASIX) injection 20 | Given | 08/05/2017 | 20 mg | | | | mg 20 mg, intravenous, ONCE, 1 | | 11:32 | | | | | dose, [facility] 08/05/17 at 1130 | | PDT | | | | + +-------+ +-------+---+---+ +---+---+ | | | +---+---+ + +-------+ +-------+---+---+ | furosemide (LASIX) injection 40 | Given | | 40 mg | | | | mg 40 mg, intravenous, ONCE, 1 | | 8 15:58 | | | | | dose, [facility] 08/06/17 at 1530 | | PDT | | | | + +-------+ +-------+---+---+ + +---+ | | | + +---+ | glucagon (GLUCAGEN) injection 1 | | | mg 1 mg, intramuscular, | | | NEEDED, Starting Sat07/05/17 at | | | 0758, Until [facility] 08/08/17 at 1835, | | | CBG less than 70 mg/dL per Adult | | | Hypoglycemia Protocol | | + +---+ | | | + +---+ | glucose chewable tablet 16 g | | | 16 g, oral, NEEDED, Starting | | | Sat07/05/17 at 0758, Until [facility] | | | 08/08/17 at 1835, CBG less than 70 | | | mg/dL per Adult Hypoglycemia | | | Protocol | | + +---+ | | | + +---+ | haloperidol (HALDOL) tablet | | | 0.5-1.5 mg 0.5-1.5 mg, oral, | | | EVERY 4 HOURS NEEDED, Starting | | | 07/01/17 at 1208, Until [facility] | | | 08/08/17 at 1835, alternate to | | | prochlorperazine -OR- if first | | | line is ineffective -OR- if | | | related to agitation, | | | restlessness, or wakefulness | | + +---+ | | | + +---+ + +-------+ +------+---+---+ | haloperidol lactate (HALDOL) | Given | 08/04/2017 | 1 mg | | | | injection 0.5-1.5 mg 0.5-1.5 mg, | | 20:18 | | | | | intravenous, EVERY 4 HOURS | | PDT | | | | | NEEDED, Starting 07/01/17 at | | | | | | | 1208, Until [facility] 08/08/17 at 1835, | | | | | | | alternate to prochlorperazine | | | | | | | -OR- if first line is ineffective | | | | | | | -OR- if related to agitation, | | | | | | | restlessness, or wakefulness | | | | | | + +-------+ +------+---+---+ +-------+ +------+---+---+ | Given | | 1 mg | | | | | 8 21:17 | | | | | | PDT | | | | +-------+ +------+---+---+ +---+---+ | | | +---+---+ + +-------+ +---+---+---+ | hydrocortisone 1 % cream | Given | | | | | | topical, TWICE DAILY, First dose | | 8 08:53 | | | | | on 07/15/17 at 2100, Until | | PDT | | | | | Discontinued | | | | | | + +-------+ +---+---+---+ +-------+ +---+---+---+ | Given | | | | | | | 8 21:12 | | | | | | PDT | | | | +-------+ +---+---+---+ | Given | | | | | | | 8 08:34 | | | | | | PDT | | | | +-------+ +---+---+---+ +---+---+ | | | +---+---+ + + + +---+---+---+ | hydrocortisone 2.5 % cream | Pt | | | | | | topical, TWICE DAILY, 28 doses, | Administ | 8 13:01 | | | | | First dose on 07/20/17 at | ered | PDT | | | | | 2100, Last dose on 08/03/17 at | | | | | | | 0900 | | | | | | + + + +---+---+---+ +-------+ +---+---+---+ | Given | | | | | | | 8 21:02 | | | | | | PDT | | | | +-------+ +---+---+---+ +---+---+ | | | +---+---+ + +-------+ +---+---+---+ | hydrocortisone 2.5 % ointment | Given | | | | | | topical, TWICE DAILY, First dose | | 8 09:16 | | | | | on 08/05/17 at 1230, Until | | PDT | | | | | Discontinued | | | | | | + +-------+ +---+---+---+ +-------+ +---+---+---+ | Given | | | | | | | 8 20:05 | | | | | | PDT | | | | +-------+ +---+---+---+ | Given | | | | | | | 8 09:09 | | | | | | PDT | | | | +-------+ +---+---+---+ +---+---+ | | | +---+---+ + +-------+ + +---+---+ | hydroxyurea (HYDREA) capsule | Given | 06/29/2017 | 1,000 mg | | | | 1,000 mg 1,000 mg, oral, TWICE | | 14:13 | | | | | DAILY, First dose on 06/29/17 | | PST | | | | | at 1315, Until Discontinued | | | | | | + +-------+ + +---+---+ +-------+ + +---+---+ | Given | 06/29/2017 | 1,000 mg | | | | | 22:02 | | | | | | PST | | | | +-------+ + +---+---+ | Given | 06/30/2017 | 1,000 mg | | | | | 09:25 | | | | | | PST | | | | +-------+ + +---+---+ +---+---+ | | | +---+---+ + +-------+ + +---+---+ | hydroxyurea (HYDREA) capsule | Given | 06/29/2017 | 1,500 mg | | | | 1,500 mg 1,500 mg, oral, ONCE, 1 | | 01:12 | | | | | dose, 06/29/17 at 0115 | | PST | | | | + +-------+ + +---+---+ +---+---+ | | | +---+---+ + +-------+ + +---+---+ | hydroxyurea (HYDREA) capsule | Given | 07/01/2017 | 2,000 mg | | | | 2,000 mg 2,000 mg, oral, THREE | | 09:09 | | | | | TIMES DAILY, First dose on Sun | | PST | | | | | 06/30/17 at 1600, Until | | | | | | | Discontinued | | | | | | + +-------+ + +---+---+ +-------+ + +---+---+ | Given | 07/01/2017 | 2,000 mg | | | | | 15:55 | | | | | | PST | | | | +-------+ + +---+---+ | Given | 07/01/2017 | 2,000 mg | | | | | 21:46 | | | | | | PST | | | | +-------+ + +---+---+ +---+---+ | | | +---+---+ + +---------+ +-------+-------+---+ | IDArubicin (IDAMYCIN) 25 mg in | New Bag | 07/01/2017 | 25 mg | 250 | | | NaCl 0.9 % IV 25 mg (rounded | | 15:13 | | mL/hr | | | from 24 mg = 12 mg/m2 | | PST | | | | | 2 m2 Treatment plan recorded | | | | | | | BSA), intravenous, Administer | | | | | | | over 30 Minutes, EVERY 24 HOURS, | | | | | | | 3 doses, First dose on Mon 5/18 | | | | | | | at 1500, Last dose on Sat07/03/17 | | | | | | | at 1500, Infuse through central | | | | | | | line Days 1 through 3. HIGH | | | | | | | ALERT MEDICATION-CHEMOTHERAPY | | | | | | | Vesicant. Administer through | | | | | | | running IV line. Stop infusing if | | | | | | | pain at injection site. Protect | | | | | | | from light. | | | | | | + +---------+ +-------+-------+---+ +---------+ +-------+-------+---+ | New Bag | 07/02/2017 | 25 mg | 250 | | | | 15:47 | | mL/hr | | | | PST | | | | +---------+ +-------+-------+---+ | New Bag | 07/03/2017 | 25 mg | 250 | | | | 15:40 | | mL/hr | | | | PST | | | | +---------+ +-------+-------+---+ +---+---+ | | | +---+---+ + +-------+ +---------+---+---------+ | insulin lispro (HUMALOG) | Given | 07/05/2017 | 2 Units | | Abdomen | | injection subcutaneous, FOUR | | 20:05 | | | | | TIMES DAILY, First dose on Fri | | PST | | | | | 07/05/17 at 0945, Until | | | | | | | Discontinued | | | | | | + +-------+ +---------+---+---------+ +-------+ +---------+---+---------+ | Given | 07/05/2017 | 1 Units | | Abdomen | | | 23:32 | | | | | | PST | | | | +-------+ +---------+---+---------+ | Given | | 2 Units | | Abdomen | | | 8 13:01 | | | | | | PST | | | | +-------+ +---------+---+---------+ +---+---+ | | | +---+---+ + +---------+ +--------+---+---+ | iohexol (OMNIPAQUE) 350 mg | IV Push | 06/29/2017 | 100 mL | | | | iodine/mL injection 100 mL 100 | | 14:58 | | | | | mL, intravenous, PROCEDURE ONCE, | | PST | | | | | 1 dose, 06/29/17 at 1500 | | | | | | + +---------+ +--------+---+---+ +---+---+ | | | +---+---+ + +-------+ +------+---+---+ | lactulose (ENULAC) liquid 10 g | Given | 06/29/2017 | 10 g | | | | 10 g (15 mL), oral, DAILY, First | | 20:31 | | | | | dose on 06/29/17 at 1745, | | PST | | | | | Until Discontinued | | | | | | + +-------+ +------+---+---+ +-------+ +------+---+---+ | Given | 06/30/2017 | 10 g | | | | | 09:05 | | | | | | PST | | | | +-------+ +------+---+---+ | Given | 07/01/2017 | 10 g | | | | | 09:08 | | | | | | PST | | | | +-------+ +------+---+---+ +---+---+ | | | +---+---+ + +-------+ +------+---+---+ | lactulose (ENULAC) liquid 10 g | Given | 06/30/2017 | 10 g | | | | 10 g (15 mL), oral, ONCE, 1 | | 19:23 | | | | | dose, 06/30/17 at 1945 | | PST | | | | + +-------+ +------+---+---+ + +---+ | | | + +---+ | lactulose (ENULAC) liquid 10 g | | | 10 g (15 mL), oral, THREE TIMES | | | DAILY NEEDED, Starting Tue | | | 07/02/17 at 1057, Until [facility] 08/08/17 | | | at 1835, constipation, third | | | line | | + +---+ | | | + +---+ + +-------+ +--------+---+---+ | levoFLOXacin (LEVAQUIN) tablet | Given | | 500 mg | | | | 500 mg 500 mg, oral, DAILY, | | 8 08:48 | | | | | First dose on Sat07/17/17 at | | PDT | | | | | 1115, Until Discontinued | | | | | | + +-------+ +--------+---+---+ +-------+ +--------+---+---+ | Given | | 500 mg | | | | | 8 08:31 | | | | | | PDT | | | | +-------+ +--------+---+---+ | Given | | 500 mg | | | | | 8 09:04 | | | | | | PDT | | | | +-------+ +--------+---+---+ +---+---+ | | | +---+---+ + +-------+ + +---+---+ | levothyroxine tablet 37.5 mcg | Given | | 37.5 mcg | | | | 37.5 mcg, oral, BEFORE BREAKFAST, | | 8 05:12 | | | | | First dose on 06/29/17 at | | PDT | | | | | 0630, Until Discontinued | | | | | | + +-------+ + +---+---+ +-------+ + +---+---+ | Given | | 37.5 mcg | | | | | 8 06:08 | | | | | | PDT | | | | +-------+ + +---+---+ | Given | | 37.5 mcg | | | | | 8 04:58 | | | | | | PDT | | | | +-------+ + +---+---+ +---+---+ | | | +---+---+ + +-------+ +---+---+---+ | lidocaine PF (XYLOCAINE MPF) 10 | Given | 08/01/2017 | | | | | mg/mL (1 %) injection | | 14:30 | | | | | infiltration, ONCE, 1 dose, [facility] | | PDT | | | | | 08/01/17 at 0845 | | | | | | + +-------+ +---+---+---+ +---+---+ | | | +---+---+ + +-------+ +------+---+---+ | lisinopril (PRINIVIL) tablet 5 | Given | | 5 mg | | | | mg 5 mg, oral, DAILY, First dose | | 8 09:15 | | | | | on 06/29/17 at 0900, Until | | PDT | | | | | Discontinued | | | | | | + +-------+ +------+---+---+ +-------+ +------+---+---+ | Given | | 5 mg | | | | | 8 09:14 | | | | | | PDT | | | | +-------+ +------+---+---+ | Given | | 5 mg | | | | | 8 09:08 | | | | | | PDT | | | | +-------+ +------+---+---+ +---+---+ | | | +---+---+ + +-------+ +------+---+---+ | loperamide (IMODIUM) capsule 2 | Given | | 2 mg | | | | mg 2 mg, oral, FOUR TIMES DAILY | | 8 09:37 | | | | | NEEDED, Starting 07/06/17 | | PDT | | | | | at 1645, Until 07/10/17 at | | | | | | | 0757, diarrhea | | | | | | + +-------+ +------+---+---+ +-------+ +------+---+---+ | Given | | 2 mg | | | | | 8 10:30 | | | | | | PDT | | | | +-------+ +------+---+---+ | Given | | 2 mg | | | | | 8 12:46 | | | | | | PDT | | | | +-------+ +------+---+---+ +---+---+ | | | +---+---+ + +-------+ +------+---+---+ | loperamide (IMODIUM) capsule 2 | Given | | 2 mg | | | | mg 2 mg, oral, EVERY 6 HOURS, | | 8 21:50 | | | | | First dose on 07/08/17 at | | PDT | | | | | 1600, Until Discontinued | | | | | | + +-------+ +------+---+---+ +-------+ +------+---+---+ | Given | | 2 mg | | | | | 8 20:24 | | | | | | PDT | | | | +-------+ +------+---+---+ | Given | | 2 mg | | | | | 8 07:13 | | | | | | PDT | | | | +-------+ +------+---+---+ +---+---+ | | | +---+---+ + +-------+ +------+---+---+ | loperamide (IMODIUM) capsule | Given | | 2 mg | | | | 2-4 mg 2-4 mg, oral, FOUR TIMES | | 8 06:57 | | | | | DAILY NEEDED, Starting Wed | | PDT | | | | | 07/10/17 at 0757, Until [facility] | | | | | | | 08/08/17 at 1835, diarrhea | | | | | | + +-------+ +------+---+---+ +-------+ +------+---+---+ | Given | | 4 mg | | | | | 8 09:38 | | | | | | PDT | | | | +-------+ +------+---+---+ | Given | | 4 mg | | | | | 8 07:00 | | | | | | PDT | | | | +-------+ +------+---+---+ +---+---+ | | | +---+---+ + +-------+ +-------+---+---+ | loratadine (CLARITIN) tablet 10 | Given | | 10 mg | | | | mg 10 mg, oral, ONCE, 1 dose, | | 8 19:53 | | | | | 07/15/17 at 1845 | | PDT | | | | + +-------+ +-------+---+---+ +---+---+ | | | +---+---+ + +-------+ +-------+---+---+ | loratadine (CLARITIN) tablet 10 | Given | 08/05/2017 | 10 mg | | | | mg 10 mg, oral, DAILY, First | | 22:30 | | | | | dose on Sat07/16/17 at 2145, | | PDT | | | | | Until Discontinued | | | | | | + +-------+ +-------+---+---+ +-------+ +-------+---+---+ | Given | | 10 mg | | | | | 8 19:42 | | | | | | PDT | | | | +-------+ +-------+---+---+ | Given | | 10 mg | | | | | 8 20:03 | | | | | | PDT | | | | +-------+ +-------+---+---+ +---+---+ | | | +---+---+ + +-------+ +--------+---+---+ | LORazepam (ATIVAN) tablet 0.5 | Given | 08/05/2017 | 0.5 mg | | | | mg 0.5 mg, oral, EVERY 8 HOURS | | 16:00 | | | | | NEEDED, Starting Sat06/28/17 at | | PDT | | | | | 2251, Until Sat08/08/17 at 1835, | | | | | | | Nausea/Vomiting | | | | | | + +-------+ +--------+---+---+ +-------+ +--------+---+---+ | Given | | 0.5 mg | | | | | 8 19:47 | | | | | | PDT | | | | +-------+ +--------+---+---+ | Given | | 0.5 mg | | | | | 8 20:03 | | | | | | PDT | | | | +-------+ +--------+---+---+ +---+---+ | | | +---+---+ + +-------+ +-------+---+---+ | magnesium hydroxide (MILK OF | Given | 06/29/2017 | 30 mL | | | | MAGNESIA) suspension 30 mL 30 | | 10:28 | | | | | mL, oral, DAILY NEEDED, | | PST | | | | | Starting 06/29/17 at 0011, | | | | | | | Until 06/29/17 at 1649, | | | | | | | constipation | | | | | | + +-------+ +-------+---+---+ +---+---+ | | | +---+---+ + +-------+ +-------+---+---+ | magnesium hydroxide (MILK OF | Given | 06/30/2017 | 30 mL | | | | MAGNESIA) suspension 30 mL 30 | | 21:04 | | | | | mL, oral, TWICE DAILY, First dose | | PST | | | | | on 06/29/17 at 1700, Until | | | | | | | Discontinued | | | | | | + +-------+ +-------+---+---+ +-------+ +-------+---+---+ | Given | 07/01/2017 | 30 mL | | | | | 09:08 | | | | | | PST | | | | +-------+ +-------+---+---+ | Given | 07/01/2017 | 30 mL | | | | | 20:02 | | | | | | PST | | | | +-------+ +-------+---+---+ + +---+ | | | + +---+ | magnesium hydroxide (MILK OF | | | MAGNESIA) suspension 30 mL 30 | | | mL, oral, EVERY 4 HOURS | | | NEEDED, Starting 07/02/17 at | | | 1100, Until [facility] 08/08/17 at 1835, | | | constipation, first line | | + +---+ | | | + +---+ + +---------+ +-----+---+---+ | magnesium sulfate in water IV | New Bag | | 4 g | | | | (RTU) 4 g 4 g, intravenous, | | 8 04:59 | | | | | NEEDED, Starting 06/29/17 at | | PDT | | | | | 0010, Until [facility] 08/08/17 at 1835, | | | | | | | Mg level 1.3-1.6 mg/dL | | | | | | + +---------+ +-----+---+---+ +---------+ +-----+---+---+ | New Bag | | 4 g | | | | | 8 07:12 | | | | | | PDT | | | | +---------+ +-----+---+---+ | New Bag | 08/03/2017 | 4 g | | | | | 04:58 | | | | | | PDT | | | | +---------+ +-----+---+---+ + +---+ | | | + +---+ | magnesium sulfate IV 8 g 8 g, | | | intravenous, NEEDED, Starting | | | 06/29/17 at 0010, Until [facility] | | | 08/08/17 at 1835, Mg level less | | | than or equal to 1.2 mg/dL | | + +---+ | | | + +---+ + +-------+ +------+---+---+ | menthol (COUGH DROPS) lozenge 5 | Given | 07/31/2017 | 5 mg | | | | mg 5 mg (1 lozenge), oral, | | 21:55 | | | | | NEEDED, Starting 07/31/17 at | | PDT | | | | | 1942, Until [facility] 08/08/17 at 1835, | | | | | | | sore throat | | | | | | + +-------+ +------+---+---+ +---+---+ | | | +---+---+ + +---------+ +-----+---+---+ | meropenem (MERREM) injection 1 | New Bag | | 1 g | | | | g 1 g, intravenous, EVERY 8 | | 8 19:53 | | | | | HOURS, First dose on 07/20/17 | | PDT | | | | | at 2014, Until Discontinued | | | | | | + +---------+ +-----+---+---+ +---------+ +-----+---+---+ | New Bag | | 1 g | | | | | 8 03:47 | | | | | | PDT | | | | +---------+ +-----+---+---+ +---+---+ | | | +---+---+ + +-------+ + +---+---+ | nystatin (MYCOSTATIN) | Given | | 500,000 | | | | suspension 500,000 Units 500,000 | | 8 20:44 | Units | | | | Units, oral, FOUR TIMES DAILY, | | PDT | | | | | First dose on 06/29/17 at 2200, | | | | | | | Until Discontinued | | | | | | + +-------+ + +---+---+ +-------+ + +---+---+ | Given | | 500,000 | | | | | 8 22:44 | Units | | | | | PDT | | | | +-------+ + +---+---+ | Given | | 500,000 | | | | | 8 08:06 | Units | | | | | PDT | | | | +-------+ + +---+---+ +---+---+ | | | +---+---+ + +-------+ +-------+---+---+ | omeprazole (PRILOSEC) capsule | Given | 07/05/2017 | 20 mg | | | | 20 mg 20 mg, oral, BEFORE | | 04:50 | | | | | BREAKFAST, First dose on Sat | | PST | | | | | 06/29/17 at 0630, Until | | | | | | | Discontinued | | | | | | + +-------+ +-------+---+---+ +-------+ +-------+---+---+ | Given | | 20 mg | | | | | 8 06:55 | | | | | | PST | | | | +-------+ +-------+---+---+ | Given | | 20 mg | | | | | 8 06:08 | | | | | | PDT | | | | +-------+ +-------+---+---+ +---+---+ | | | +---+---+ + +-------+ +-------+---+---+ | omeprazole (PRILOSEC) capsule | Given | | 20 mg | | | | 20 mg 20 mg, oral, ONCE, 1 dose, | | 8 09:43 | | | | | 07/07/17 at 0830 | | PDT | | | | + +-------+ +-------+---+---+ +---+---+ | | | +---+---+ + +-------+ +-------+---+---+ | omeprazole (PRILOSEC) capsule | Given | | 40 mg | | | | 40 mg 40 mg, oral, BEFORE | | 8 05:12 | | | | | BREAKFAST, First dose on Mon | | PDT | | | | | 07/08/17 at 0630, Until | | | | | | | Discontinued | | | | | | + +-------+ +-------+---+---+ +-------+ +-------+---+---+ | Given | | 40 mg | | | | | 8 06:08 | | | | | | PDT | | | | +-------+ +-------+---+---+ | Given | | 40 mg | | | | | 8 04:58 | | | | | | PDT | | | | +-------+ +-------+---+---+ +---+---+ | | | +---+---+ + +-------+ +------+---+---+ | ondansetron (ZOFRAN) injection | Given | | 4 mg | | | | 4 mg 4 mg, intravenous, ONCE, 1 | | 8 07:36 | | | | | dose, [place] 07/07/17 at 2245 | | PDT | | | | + +-------+ +------+---+---+ +---+---+ | | | +---+---+ + +-------+ +-------+---+---+ | ondansetron (ZOFRAN) tablet 24 | Given | 07/02/2017 | 24 mg | | | | mg 24 mg, oral, EVERY 24 HOURS, | | 13:41 | | | | | 4 doses, First dose on Sat07/01/17 | | PST | | | | | at 1400, Last dose on Sat07/04/17 | | | | | | | at 1400 | | | | | | + +-------+ +-------+---+---+ +-------+ +-------+---+---+ | Given | 07/03/2017 | 24 mg | | | | | 13:39 | | | | | | PST | | | | +-------+ +-------+---+---+ | Given | 07/04/2017 | 24 mg | | | | | 13:12 | | | | | | PST | | | | +-------+ +-------+---+---+ +---+---+ | | | +---+---+ + +-------+ +------+---+---+ | ondansetron (ZOFRAN) tablet 4-8 | Given | 07/03/2017 | 8 mg | | | | mg 4-8 mg, oral, EVERY 12 HOURS | | 10:12 | | | | | NEEDED, Starting 06/28/17 | | PST | | | | | at 2251, Until 07/06/17 at | | | | | | | 0821, nausea/vomiting, first line | | | | | | + +-------+ +------+---+---+ +-------+ +------+---+---+ | Given | 07/05/2017 | 8 mg | | | | | 11:16 | | | | | | PST | | | | +-------+ +------+---+---+ | Given | | 8 mg | | | | | 8 03:16 | | | | | | PST | | | | +-------+ +------+---+---+ +---+---+ | | | +---+---+ + +-------+ +------+---+---+ | ondansetron (ZOFRAN) tablet 8 | Given | | 8 mg | | | | mg 8 mg, oral, EVERY 12 HOURS, | | 8 08:52 | | | | | First dose on 07/06/17 at | | PDT | | | | | 0900, Until Discontinued | | | | | | + +-------+ +------+---+---+ +-------+ +------+---+---+ | Given | | 8 mg | | | | | 8 21:11 | | | | | | PDT | | | | +-------+ +------+---+---+ | Given | | 8 mg | | | | | 8 08:34 | | | | | | PDT | | | | +-------+ +------+---+---+ +---+---+ | | | +---+---+ + +-------+ +------+---+---+ | ondansetron (ZOFRAN) tablet 8 | Given | 08/05/2017 | 8 mg | | | | mg 8 mg, oral, EVERY 12 HOURS | | 14:32 | | | | | NEEDED, Starting 07/17/17 at | | PDT | | | | | 0930, Until Maribel 08/08/17 at 1835, | | | | | | | nausea/vomiting, second line | | | | | | + +-------+ +------+---+---+ +-------+ +------+---+---+ | Given | | 8 mg | | | | | 8 11:29 | | | | | | PDT | | | | +-------+ +------+---+---+ | Given | | 8 mg | | | | | 8 12:07 | | | | | | PDT | | | | +-------+ +------+---+---+ +---+---+ | | | +---+---+ + +-------+ +-------+---+---+ | oxybutynin CR (DITROPAN-XL) | Given | | 15 mg | | | | tablet 15 mg 15 mg, oral, DAILY, | | 8 09:14 | | | | | First dose on 06/29/17 at | | PDT | | | | | 0900, Until Discontinued | | | | | | + +-------+ +-------+---+---+ +-------+ +-------+---+---+ | Given | | 15 mg | | | | | 8 09:14 | | | | | | PDT | | | | +-------+ +-------+---+---+ | Given | | 15 mg | | | | | 8 09:08 | | | | | | PDT | | | | +-------+ +-------+---+---+ +---+---+ | | | +---+---+ + +-------+ +-------+---+---+ | oxyCODONE (immediate release) | Given | 08/05/2017 | 10 mg | | | | (ROXICODONE) tablet 10-20 mg | | 17:14 | | | | | 10-20 mg, oral, EVERY 3 HOURS | | PDT | | | | | NEEDED, Starting 06/30/17 at | | | | | | | 1015, Until [facility] 08/08/17 at 1835, | | | | | | | moderate pain | | | | | | + +-------+ +-------+---+---+ +-------+ +-------+---+---+ | Given | | 10 mg | | | | | 8 09:14 | | | | | | PDT | | | | +-------+ +-------+---+---+ | Given | | 10 mg | | | | | 8 16:14 | | | | | | PDT | | | | +-------+ +-------+---+---+ +---+---+ | | | +---+---+ + +-------+ +-------+---+---+ | oxyCODONE (immediate release) | Given | 06/28/2017 | 10 mg | | | | (ROXICODONE) tablet 5-10 mg 5-10 | | 23:34 | | | | | mg, oral, EVERY 6 HOURS | | PST | | | | | NEEDED, Starting 06/28/17 at | | | | | | | 2251, Until 06/29/17 at 1047, | | | | | | | moderate pain | | | | | | + +-------+ +-------+---+---+ +-------+ +-------+---+---+ | Given | 06/29/2017 | 10 mg | | | | | 05:16 | | | | | | PST | | | | +-------+ +-------+---+---+ | Given | 06/29/2017 | 10 mg | | | | | 10:27 | | | | | | PST | | | | +-------+ +-------+---+---+ +---+---+ | | | +---+---+ + +-------+ +-------+---+---+ | oxyCODONE (immediate release) | Given | 06/29/2017 | 15 mg | | | | (ROXICODONE) tablet 5-15 mg 5-15 | | 20:30 | | | | | mg, oral, EVERY 4 HOURS | | PST | | | | | NEEDED, Starting 06/29/17 at | | | | | | | 1100, Until 06/30/17 at 1008, | | | | | | | moderate pain | | | | | | + +-------+ +-------+---+---+ +-------+ +-------+---+---+ | Given | 06/30/2017 | 15 mg | | | | | 03:30 | | | | | | PST | | | | +-------+ +-------+---+---+ | Given | 06/30/2017 | 15 mg | | | | | 08:50 | | | | | | PST | | | | +-------+ +-------+---+---+ +---+---+ | | | +---+---+ + +-------+ +-------+---+---+ | phytonadione (vitamin K1) | Given | 07/02/2017 | 10 mg | | | | (VITAMIN K, MEPHYTON) tablet 10 | | 13:41 | | | | | mg 10 mg, oral, DAILY, 3 doses, | | PST | | | | | First dose on Sat07/02/17 at 1245, | | | | | | | Last dose on Sat07/04/17 at 0900 | | | | | | + +-------+ +-------+---+---+ +-------+ +-------+---+---+ | Given | 07/03/2017 | 10 mg | | | | | 09:13 | | | | | | PST | | | | +-------+ +-------+---+---+ | Given | 07/04/2017 | 10 mg | | | | | 08:33 | | | | | | PST | | | | +-------+ +-------+---+---+ +---+---+ | | | +---+---+ + +---------+ +-------+---+---+ | piperacillin-tazobactam (ZOSYN) | New Bag | | 4.5 g | | | | IV 4.5 g 4.5 g, intravenous, | | 8 02:12 | | | | | EVERY 6 HOURS, First dose on Sat | | PDT | | | | | 06/29/17 at 1700, Until | | | | | | | Discontinued | | | | | | + +---------+ +-------+---+---+ +---------+ +-------+---+---+ | New Bag | | 4.5 g | | | | | 8 09:04 | | | | | | PDT | | | | +---------+ +-------+---+---+ | New Bag | | 4.5 g | | | | | 8 15:00 | | | | | | PDT | | | | +---------+ +-------+---+---+ +---+---+ | | | +---+---+ + +---------+ +-------+---+---+ | piperacillin-tazobactam (ZOSYN) | New Bag | | 4.5 g | | | | IV 4.5 g 4.5 g, intravenous, | | 8 21:28 | | | | | EVERY 6 HOURS, First dose on Sat | | PDT | | | | | 07/13/17 at 2100, Until | | | | | | | Discontinued | | | | | | + +---------+ +-------+---+---+ +---------+ +-------+---+---+ | New Bag | | 4.5 g | | | | | 8 03:28 | | | | | | PDT | | | | +---------+ +-------+---+---+ | New Bag | | 4.5 g | | | | | 8 08:33 | | | | | | PDT | | | | +---------+ +-------+---+---+ +---+---+ | | | +---+---+ + +---------+ +-------+---+---+ | piperacillin-tazobactam (ZOSYN) | New Bag | | 4.5 g | | | | IV 4.5 g 4.5 g, intravenous, | | 8 23:43 | | | | | EVERY 6 HOURS, First dose on Sun | | PDT | | | | | 07/21/17 at 1200, Until | | | | | | | Discontinued | | | | | | + +---------+ +-------+---+---+ +---------+ +-------+---+---+ | New Bag | | 4.5 g | | | | | 8 04:58 | | | | | | PDT | | | | +---------+ +-------+---+---+ | New Bag | | 4.5 g | | | | | 8 10:48 | | | | | | PDT | | | | +---------+ +-------+---+---+ +---+---+ | | | +---+---+ + +-------+ +------+---+---+ | polyethylene glycol (MIRALAX) | Given | 06/29/2017 | 17 g | | | | packet 17 g 17 g, oral, DAILY, | | 20:39 | | | | | First dose on 06/29/17 at 1815, | | PST | | | | | Until Discontinued | | | | | | + +-------+ +------+---+---+ +-------+ +------+---+---+ | Given | 06/30/2017 | 17 g | | | | | 09:05 | | | | | | PST | | | | +-------+ +------+---+---+ | Given | 07/01/2017 | 17 g | | | | | 09:08 | | | | | | PST | | | | +-------+ +------+---+---+ + +---+ | | | + +---+ | polyethylene glycol (MIRALAX) | | | packet 17 g 17 g, oral, TWICE | | | DAILY NEEDED, Starting Tue | | | 07/02/17 at 1100, Until Maribel 08/08/17 | | | at 1835, constipation, second | | | line | | + +---+ | | | + +---+ + +-------+ +--------+---+---+ | posaconazole DR (NOXAFIL) | Given | 07/04/2017 | 300 mg | | | | tablet 300 mg 300 mg, oral, | | 15:58 | | | | | TWICE DAILY, 2 doses, First dose | | PST | | | | | on Maribel 07/04/17 at 1415, Last dose | | | | | | | on Sat07/04/17 at 2100 | | | | | | + +-------+ +--------+---+---+ +-------+ +--------+---+---+ | Given | 07/04/2017 | 300 mg | | | | | 23:54 | | | | | | PST | | | | +-------+ +--------+---+---+ +---+---+ | | | +---+---+ + +-------+ +--------+---+---+ | posaconazole DR (NOXAFIL) | Given | | 300 mg | | | | tablet 300 mg 300 mg, oral, | | 8 09:14 | | | | | DAILY, First dose on Sat07/05/17 | | PDT | | | | | at 0900, Until Discontinued | | | | | | + +-------+ +--------+---+---+ +-------+ +--------+---+---+ | Given | | 300 mg | | | | | 8 09:12 | | | | | | PDT | | | | +-------+ +--------+---+---+ | Given | | 300 mg | | | | | 8 09:08 | | | | | | PDT | | | | +-------+ +--------+---+---+ +---+---+ | | | +---+---+ + +---------+ +--------+---+---+ | potassium chloride IV (central | New Bag | | 40 mEq | | | | line) 40 mEq 40 mEq, | | 8 06:54 | | | | | intravenous, NEEDED, Starting | | PDT | | | | | 06/29/17 at 0010, Until Mon | | | | | | | 07/22/17 at 1844, potassium level | | | | | | | of 3-3.4 mmol/L. Administer if | | | | | | | patient intolerant of oral | | | | | | | medications. | | | | | | + +---------+ +--------+---+---+ +---------+ +--------+---+---+ | New Bag | | 40 mEq | | | | | 8 06:10 | | | | | | PDT | | | | +---------+ +--------+---+---+ | New Bag | | 40 mEq | | | | | 8 04:35 | | | | | | PDT | | | | +---------+ +--------+---+---+ +---+---+ | | | +---+---+ + +---------+ +--------+-------+---+ | potassium chloride IV (central | New Bag | 08/05/2017 | 40 mEq | 67.5 | | | line) 40 mEq 40 mEq, | | 01:11 | | mL/hr | | | intravenous, NEEDED, Starting | | PDT | | | | | 08/02/17 at 0531, Until Maribel | | | | | | | 08/08/17 at 1835, potassium level | | | | | | | of 3-3.4 mmol/L. Administer if | | | | | | | patient intolerant of oral | | | | | | | medications. | | | | | | + +---------+ +--------+-------+---+ +---------+ +--------+---+---+ | New Bag | | 40 mEq | | | | | 8 01:54 | | | | | | PDT | | | | +---------+ +--------+---+---+ +---+---+ | | | +---+---+ + +---------+ +--------+---+---+ | potassium chloride IV (central | New Bag | | 60 mEq | | | | line) 60 mEq 60 mEq, | | 8 03:14 | | | | | intravenous, NEEDED, Starting | | PDT | | | | | 06/29/17 at 0010, Until Mon | | | | | | | 07/22/17 at 1844, potassium level | | | | | | | less than or equal to 2.9 mmol/L | | | | | | + +---------+ +--------+---+---+ + + +--------+ +---+ | Rate/Dose Verify | | 60 mEq | 35 mL/hr | | | | 8 11:24 | | | | | | PDT | | | | + + +--------+ +---+ | New Bag | | 60 mEq | | | | | 8 02:43 | | | | | | PDT | | | | + + +--------+ +---+ +---+---+ | | | +---+---+ + +---------+ +--------+---+---+ | potassium chloride IV (central | New Bag | 07/28/2017 | 60 mEq | | | | line) 60 mEq 60 mEq, | | 06:26 | | | | | intravenous, ONCE, 1 dose, Sun | | PDT | | | | | 07/28/17 at 0515 | | | | | | + +---------+ +--------+---+---+ +---+---+ | | | +---+---+ + +---------+ +--------+---+---+ | potassium chloride IV (central | New Bag | 08/02/2017 | 60 mEq | | | | line) 60 mEq 60 mEq, | | 06:04 | | | | | intravenous, NEEDED, Starting | | PDT | | | | | 08/02/17 at 0531, Until Maribel | | | | | | | 08/08/17 at 1835, potassium level | | | | | | | less than or equal to 2.9 mmol/L | | | | | | + +---------+ +--------+---+---+ +---------+ +--------+---+---+ | New Bag | 08/02/2017 | 60 mEq | | | | | 18:55 | | | | | | PDT | | | | +---------+ +--------+---+---+ | New Bag | 08/04/2017 | 60 mEq | | | | | 02:45 | | | | | | PDT | | | | +---------+ +--------+---+---+ +---+---+ | | | +---+---+ + +---------+ +--------+---+---+ | potassium chloride IV | New Bag | 08/01/2017 | 40 mEq | | | | (peripheral line) 40 mEq 40 mEq, | | 05:07 | | | | | intravenous, NEEDED, Starting | | PDT | | | | | 07/22/17 at 1843, Until Fri | | | | | | | 08/02/17 at 0532, potassium level | | | | | | | of 3-3.4 mmol/L. Administer if | | | | | | | patient intolerant of oral | | | | | | | medications. | | | | | | + +---------+ +--------+---+---+ +---+---+ | | | +---+---+ + +---------+ +--------+---+---+ | potassium chloride IV | New Bag | 07/28/2017 | 60 mEq | | | | (peripheral line) 60 mEq 60 mEq, | | 04:15 | | | | | intravenous, NEEDED, Starting | | PDT | | | | | 07/22/17 at 1843, Until Fri | | | | | | | 08/02/17 at 0532, potassium level | | | | | | | less than or equal to 2.9 mmol/L | | | | | | + +---------+ +--------+---+---+ +---+---+ | | | +---+---+ + +-------+ +--------+---+---+ | potassium chloride SR (K-DUR) | Given | 08/05/2017 | 10 mEq | | | | tablet 10 mEq 10 mEq, oral, | | 09:11 | | | | | THREE TIMES DAILY, First dose on | | PDT | | | | | 08/04/17 at 1600, Until | | | | | | | Discontinued | | | | | | + +-------+ +--------+---+---+ +-------+ +--------+---+---+ | Given | 08/05/2017 | 10 mEq | | | | | 16:00 | | | | | | PDT | | | | +-------+ +--------+---+---+ | Given | 08/05/2017 | 10 mEq | | | | | 22:30 | | | | | | PDT | | | | +-------+ +--------+---+---+ +---+---+ | | | +---+---+ + +-------+ +--------+---+---+ | potassium chloride SR (K-DUR) | Given | | 20 mEq | | | | tablet 20 mEq 20 mEq, oral, | | 8 09:15 | | | | | TWICE DAILY, First dose on Sat | | PDT | | | | | 08/06/17 at 0900, Until | | | | | | | Discontinued | | | | | | + +-------+ +--------+---+---+ +-------+ +--------+---+---+ | Given | | 20 mEq | | | | | 8 20:03 | | | | | | PDT | | | | +-------+ +--------+---+---+ | Given | | 20 mEq | | | | | 8 09:08 | | | | | | PDT | | | | +-------+ +--------+---+---+ +---+---+ | | | +---+---+ + +-------+ +--------+---+---+ | potassium chloride SR (K-DUR) | Given | 07/31/2017 | 40 mEq | | | | tablet 40 mEq 40 mEq, oral, | | 11:11 | | | | | NEEDED, Starting 06/29/17 at | | PDT | | | | | 0010, Until [facility] 08/08/17 at 1835, | | | | | | | potassium level 3-3.4 mmol/L | | | | | | + +-------+ +--------+---+---+ +-------+ +--------+---+---+ | Given | 08/04/2017 | 40 mEq | | | | | 13:20 | | | | | | PDT | | | | +-------+ +--------+---+---+ | Given | | 40 mEq | | | | | 8 05:12 | | | | | | PDT | | | | +-------+ +--------+---+---+ +---+---+ | | | +---+---+ + +---------+ +---------+---+---+ | potassium phosphate IV 30 mmol | New Bag | 08/03/2017 | 30 mmol | | | | 30 mmol, intravenous, NEEDED, | | 04:58 | | | | | Starting 08/02/17 at 0531, | | PDT | | | | | Until [facility] 08/08/17 at 1835, | | | | | | | Potassium less than or equal to | | | | | | | 3.4 mmol/L AND Phosphate less | | | | | | | than or equal to 2 mg/dL. | | | | | | + +---------+ +---------+---+---+ + +---+ | | | + +---+ | potassium phosphate IV 40 mmol | | | 40 mmol, intravenous, NEEDED, | | | Starting 08/02/17 at 0531, | | | Until [facility] 08/08/17 at 1835, | | | Potassium less than or equal to | | | 2.9 mmol/L AND Phosphate less | | | than or equal to 1.5 mg/dL. | | + +---+ | | | + +---+ + +-------+ +---------+---+---+ | prednisoLONE acetate (PRED | Given | | 2 drops | | | | FORTE) 1 % ophthalmic drops, | | 8 22:08 | | | | | suspension 2 drop 2 drop, Both | | PDT | | | | | Eyes, EVERY 6 HOURS, 28 doses, | | | | | | | First dose on Sat07/01/17 at 1430, | | | | | | | Last dose on Sat07/08/17 at 1000 | | | | | | + +-------+ +---------+---+---+ +-------+ +---------+---+---+ | Given | | 2 drops | | | | | 8 05:16 | | | | | | PDT | | | | +-------+ +---------+---+---+ | Given | | 2 drops | | | | | 8 10:14 | | | | | | PDT | | | | +-------+ +---------+---+---+ +---+---+ | | | +---+---+ + +-------+ +-------+---+---+ | prochlorperazine (COMPAZINE) | Given | 07/05/2017 | 10 mg | | | | injection 5-10 mg 5-10 mg, | | 16:02 | | | | | intravenous, EVERY 4 HOURS | | PST | | | | | NEEDED, Starting 07/01/17 at | | | | | | | 1208, Until 07/06/17 at 0819, | | | | | | | give as first line agent for | | | | | | | acute or delayed nausea/vomiting | | | | | | + +-------+ +-------+---+---+ +-------+ +-------+---+---+ | Given | | 10 mg | | | | | 8 08:07 | | | | | | PST | | | | +-------+ +-------+---+---+ +---+---+ | | | +---+---+ + +-------+ +-------+---+---+ | prochlorperazine (COMPAZINE) | Given | | 10 mg | | | | injection 5-10 mg 5-10 mg, | | 8 21:32 | | | | | intravenous, EVERY 6 HOURS, First | | PDT | | | | | dose on 07/06/17 at 1400, | | | | | | | Until Discontinued | | | | | | + +-------+ +-------+---+---+ +-------+ +-------+---+---+ | Given | | 10 mg | | | | | 8 05:13 | | | | | | PDT | | | | +-------+ +-------+---+---+ +---+---+ | | | +---+---+ + +-------+ +------+---+---+ | prochlorperazine (COMPAZINE) | Given | 08/03/2017 | 5 mg | | | | injection 5-10 mg 5-10 mg, | | 07:03 | | | | | intravenous, EVERY 6 HOURS | | PDT | | | | | NEEDED, Starting 07/10/17 at | | | | | | | 0800, Until [facility]ibel 08/08/17 at 1835, | | | | | | | nausea/vomiting | | | | | | + +-------+ +------+---+---+ +-------+ +-------+---+---+ | Given | 08/03/2017 | 10 mg | | | | | 16:53 | | | | | | PDT | | | | +-------+ +-------+---+---+ | Given | 08/04/2017 | 10 mg | | | | | 16:38 | | | | | | PDT | | | | +-------+ +-------+---+---+ +---+---+ | | | +---+---+ + +-------+ +-------+---+---+ | prochlorperazine (COMPAZINE) | Given | 06/29/2017 | 10 mg | | | | tablet 5-10 mg 5-10 mg, oral, | | 22:56 | | | | | FOUR TIMES DAILY NEEDED, | | PST | | | | | Starting 06/28/17 at 2251, | | | | | | | Until 07/01/17 at 1248, | | | | | | | nausea/vomiting, second line | | | | | | + +-------+ +-------+---+---+ +---+---+ | | | +---+---+ + +-------+ +-------+---+---+ | prochlorperazine (COMPAZINE) | Given | | 10 mg | | | | tablet 5-10 mg 5-10 mg, oral, | | 8 21:50 | | | | | EVERY 6 HOURS, First dose on Sat | | PDT | | | | | 07/06/17 at 1400, Until | | | | | | | Discontinued | | | | | | + +-------+ +-------+---+---+ +-------+ +-------+---+---+ | Given | | 10 mg | | | | | 8 04:41 | | | | | | PDT | | | | +-------+ +-------+---+---+ | Given | | 5 mg | | | | | 8 10:52 | | | | | | PDT | | | | +-------+ +-------+---+---+ +---+---+ | | | +---+---+ + +-------+ +------+---+---+ | prochlorperazine (COMPAZINE) | Given | 07/29/2017 | 5 mg | | | | tablet 5-10 mg 5-10 mg, oral, | | 21:24 | | | | | EVERY 6 HOURS NEEDED, Starting | | PDT | | | | | 07/10/17 at 0800, Until Maribel | | | | | | | 08/08/17 at 1835, nausea/vomiting | | | | | | + +-------+ +------+---+---+ +-------+ +-------+---+---+ | Given | | 10 mg | | | | | 8 17:21 | | | | | | PDT | | | | +-------+ +-------+---+---+ | Given | | 10 mg | | | | | 8 11:29 | | | | | | PDT | | | | +-------+ +-------+---+---+ +---+---+ | | | +---+---+ + +-------+ +---------+---+---+ | senna-docusate (SENOKOT S) | Given | 07/01/2017 | 2 | | | | 8.6-50 mg 2 tablet 2 tablet, | | 09:08 | tablets | | | | oral, TWICE DAILY, First dose on | | PST | | | | | 06/29/17 at 1700, Until | | | | | | | Discontinued | | | | | | + +-------+ +---------+---+---+ +-------+ + +---+---+ | Given | 07/01/2017 | 2 | | | | | 20:02 | tablets | | | | | PST | | | | +-------+ + +---+---+ | Given | 07/04/2017 | 1 tablet | | | | | 19:39 | | | | | | PST | | | | +-------+ + +---+---+ + +---+ | | | + +---+ | senna-docusate (SENOKOT S) | | | 8.6-50 mg 2 tablet 2 tablet, | | | oral, TWICE DAILY NEEDED, | | | Starting 07/06/17 at 1100, | | | Until [facility] 08/08/17 at 1835, | | | constipation | | + +---+ | | | + +---+ + +-------+ +-------+---+---+ | simethicone chew (MYLICON) | Given | 07/02/2017 | 80 mg | | | | tablet 80 mg 80 mg, oral, THREE | | 15:56 | | | | | TIMES DAILY NEEDED, Starting | | PST | | | | | 07/02/17 at 1508, Until [facility] | | | | | | | 08/08/17 at 1835, bloating | | | | | | + +-------+ +-------+---+---+ +-------+ +-------+---+---+ | Given | 08/03/2017 | 80 mg | | | | | 21:39 | | | | | | PDT | | | | +-------+ +-------+---+---+ + +---+ | | | + +---+ | sodium chloride (OCEAN) 0.65 % | | | nasal spray 2 spray 2 spray, | | | both nostrils, NEEDED, | | | Starting 07/24/17 at 1810, | | | Until Maribel 08/08/17 at 1835, dry | | | nose | | + +---+ | | | + +---+ + + + + + +---+ | sodium chloride 0.9% IV | Rate/Dos | 07/05/2017 | 50 mL/hr | 50 mL/hr | | | infusion 50 mL/hr, intravenous, | e Verify | 16:02 | | | | | CONTINUOUS, Starting 07/01/17 | | PST | | | | | at 1215, Until 07/06/17 at | | | | | | | 1046 | | | | | | + + + + + +---+ + + + + +---+ | Rate/Dose Verify | 07/05/2017 | 50 mL/hr | 50 mL/hr | | | | 20:59 | | | | | | PST | | | | + + + + +---+ | Rate/Dose Verify | | 50 mL/hr | 50 mL/hr | | | | 8 04:26 | | | | | | PST | | | | + + + + +---+ +---+---+ | | | +---+---+ + +---------+ + +---+---+ | sodium chloride 0.9% IV | New Bag | | 1,000 mL | | | | infusion 1,000 mL, intravenous, | | 8 01:01 | | | | | NEEDED, Starting 06/29/17 at | | PDT | | | | | 1309, Until Maribel 08/01/17 at 0733, | | | | | | | 1L NS bolus O/N for po intake | | | | | | | <2L/day | | | | | | + +---------+ + +---+---+ +---------+ + +---+---+ | New Bag | | 1,000 mL | | | | | 8 21:53 | | | | | | PDT | | | | +---------+ + +---+---+ | New Bag | 07/31/2017 | 1,000 mL | | | | | 21:59 | | | | | | PDT | | | | +---------+ + +---+---+ +---+---+ | | | +---+---+ + + + + + +---+ | sodium chloride 0.9% IV | Rate/Dos | 06/30/2017 | 75 mL/hr | 75 mL/hr | | | infusion 75 mL/hr, intravenous, | e Verify | 22:00 | | | | | CONTINUOUS, Starting 06/29/17 | | PST | | | | | at 1715, Until 07/01/17 at 1306 | | | | | | + + + + + +---+ + + + + +---+ | Rate/Dose Verify | 07/01/2017 | 75 mL/hr | 75 mL/hr | | | | 06:00 | | | | | | PST | | | | + + + + +---+ | New Bag | 07/01/2017 | 75 mL/hr | 75 mL/hr | | | | 10:47 | | | | | | PST | | | | + + + + +---+ +---+---+ | | | +---+---+ + +---------+ + +-------+---+ | sodium chloride 0.9% IV | New Bag | | 1,000 mL | 500 | | | infusion 1,000 mL, intravenous, | | 8 13:14 | | mL/hr | | | ONCE, 1 dose, [facility] 07/14/17 at 1315 | | PDT | | | | + +---------+ + +-------+---+ +---+---+ | | | +---+---+ + +---------+ +-------+-------+---+ | sodium chloride 0.9% IV | New Bag | 07/31/2017 | 100 | 100 | | | infusion 100 mL/hr, intravenous, | | 11:16 | mL/hr | mL/hr | | | PROCEDURE CONTINUOUS, Starting | | PDT | | | | | 07/31/17 at 0745, Until Maribel | | | | | | | 08/01/17 at 0733 | | | | | | + +---------+ +-------+-------+---+ + + +-------+-------+---+ | Rate/Dose Verify | 07/31/2017 | 100 | 100 | | | | 17:02 | mL/hr | mL/hr | | | | PDT | | | | + + +-------+-------+---+ +---+---+ | | | +---+---+ + +---------+ +-------+-------+---+ | sodium chloride 0.9% IV | New Bag | 08/01/2017 | 100 | 100 | | | infusion 100 mL/hr, intravenous, | | 08:11 | mL/hr | mL/hr | | | CONTINUOUS, Starting [facility] 08/01/17 | | PDT | | | | | at 0815, Until [facility] 08/01/17 at 1456 | | | | | | + +---------+ +-------+-------+---+ +---+---+ | | | +---+---+ + +---------+ + +---+---+ | sodium chloride 0.9% IV | New Bag | 08/01/2017 | 1,000 mL | | | | infusion 1,000 mL, intravenous, | | 23:10 | | | | | NEEDED, Starting [facility] 08/01/17 at | | PDT | | | | | 1455, Until [place] 08/04/17 at 1216, | | | | | | | for PO intake <2L/day by 2200 | | | | | | + +---------+ + +---+---+ +---------+ + + +---+ | New Bag | 08/03/2017 | 1,000 mL | 75 mL/hr | | | | 01:20 | | | | | | PDT | | | | +---------+ + + +---+ +---+---+ | | | +---+---+ + +---------+ +---------+---+---+ | sodium phosphate IV 30 mmol 30 | New Bag | | 30 mmol | | | | mmol, intravenous, NEEDED, | | 8 02:45 | | | | | Starting 06/29/17 at 0010, | | PDT | | | | | Until [facility] 08/08/17 at 1835, | | | | | | | Administer for sodium level less | | | | | | | than 148 mmol/L and phosphate | | | | | | | level 1.6-2 mg/dL | | | | | | + +---------+ +---------+---+---+ + +---+ | | | + +---+ | sodium phosphate IV 40 mmol 40 | | | mmol, intravenous, NEEDED, | | | Starting 06/29/17 at 0010, | | | Until [place] 08/08/17 at 1835, | | | Administer for sodium level less | | | than 148 mmol/L and phosphate | | | level less than or equal to 1.5 | | | mg/dL. | | + +---+ | | | + +---+ + +-------+ +-----+---+---+ | sucralfate (CARAFATE) | Given | | 1 g | | | | suspension 1 g 1 g, oral, BEFORE | | 8 16:46 | | | | | MEALS AND BEDTIME, First dose on | | PDT | | | | | 07/07/17 at 0800, Until | | | | | | | Discontinued | | | | | | + +-------+ +-----+---+---+ +---+---+ | | | +---+---+ + +-------+ +-----+---+---+ | sucralfate (CARAFATE) | Given | | 1 g | | | | suspension 1 g 1 g, oral, BEFORE | | 8 11:02 | | | | | MEALS AND BEDTIME, First dose on | | PDT | | | | | 07/08/17 at 2100, Until | | | | | | | Discontinued | | | | | | + +-------+ +-----+---+---+ +-------+ +-----+---+---+ | Given | | 1 g | | | | | 8 20:26 | | | | | | PDT | | | | +-------+ +-----+---+---+ | Given | | 1 g | | | | | 8 08:30 | | | | | | PDT | | | | +-------+ +-----+---+---+ +---+---+ | | | +---+---+ + +---------+ +------+---+---+ | sulfur hexafluoride | IV Push | 06/29/2017 | 5 mL | | | | microspheres (LUMASON) IV 1-2 mL | | 16:28 | | | | | 1-2 mL, intravenous, ONCE, 1 | | PST | | | | | dose, 06/29/17 at 1715 | | | | | | + +---------+ +------+---+---+ +---+---+ | | | +---+---+ + +-------+ +--------+---+---+ | tiotropium (SPIRIVA) inhalation | Given | | 18 mcg | | | | 18 mcg 18 mcg, inhalation, | | 8 09:15 | | | | | DAILY, First dose on 06/29/17 | | PDT | | | | | at 0900, Until Discontinued | | | | | | + +-------+ +--------+---+---+ +-------+ +--------+---+---+ | Given | | 18 mcg | | | | | 8 10:02 | | | | | | PDT | | | | +-------+ +--------+---+---+ | Given | | 18 mcg | | | | | 8 09:05 | | | | | | PDT | | | | +-------+ +--------+---+---+ +---+---+ | | | +---+---+ + +-------+ +-------+---+---+ | traZODone (DESYREL) dose 25-50 | Given | 08/05/2017 | 50 mg | | | | mg 25-50 mg, oral, AT BEDTIME | | 22:32 | | | | | NEEDED, Starting Sat06/28/17 at | | PDT | | | | | 2251, Until Sat08/08/17 at 1835, | | | | | | | insomnia | | | | | | + +-------+ +-------+---+---+ +-------+ +-------+---+---+ | Given | | 50 mg | | | | | 8 21:18 | | | | | | PDT | | | | +-------+ +-------+---+---+ | Given | | 50 mg | | | | | 8 21:19 | | | | | | PDT | | | | +-------+ +-------+---+---+ +---+---+ | | | +---+---+ + +-------+ +---+---+---+ | triamcinolone acetonide | Given | | | | | | (KENALOG) 0.1 % ointment | | 8 08:32 | | | | | topical, TWICE DAILY, 6 doses, | | PDT | | | | | First dose on 07/17/17 at | | | | | | | 2100, Last dose on Sat07/20/17 at | | | | | | | 0900 | | | | | | + +-------+ +---+---+---+ +-------+ +---+---+---+ | Given | | | | | | | 8 20:21 | | | | | | PDT | | | | +-------+ +---+---+---+ | Given | | | | | | | 8 09:04 | | | | | | PDT | | | | +-------+ +---+---+---+ +---+---+ | | | +---+---+ + +-------+ +---+---+---+ | triamcinolone acetonide | Given | | | | | | (KENALOG) 0.1 % ointment | | 8 21:16 | | | | | topical, TWICE DAILY, 28 doses, | | PDT | | | | | First dose on 07/20/17 at | | | | | | | 2100, Last dose on Sat08/03/17 at | | | | | | | 0900 | | | | | | + +-------+ +---+---+---+ + + +---+---+---+ | Pt Administered | | | | | | | 8 12:59 | | | | | | PDT | | | | + + +---+---+---+ | Given | | | | | | | 8 21:02 | | | | | | PDT | | | | + + +---+---+---+ +---+---+ | | | +---+---+ in this encounter
--- OUTSIDE RECORDS SUMMARY | ~2017-08-27 | XMS | Encounter Summary ---
Demographics + + + | Address | [address] | | | [place] [address] | + + + | Home Phone | | + + + | Preferred Language | Unknown | + + + | Marital Status | | + + + | Congregation Affiliation | NON | + + + | Race | White | + + + | Ethnic Group | Not or | + + + Author + + + | Author | [facility] | + + + | Organization | [facility] | + + + | Address [...] Team Providers + +------+ + | Care Victims Advocate Clerk/Specialist Name | Role | Phone | + +------+ + | Saurav De Los Santos NP | PCP | | + +------+ + Encounter Details +--------+ + + + + | Date | Type | Department | Care Team | Description | +--------+ + + + + | 08/09/ | Pharmacy | Specialty Pharmacy | | | | 2017 | Visit | Services [address] | | | | [address] | | | | | | [place], [place] | | | | | | [address] | | | | | | [phone] | | | +--------+ + + + [...]
--- OUTSIDE RECORDS SUMMARY | ~2017-08-27 | XMS ---
Demographics + + + | Address | [address] | | | [address] | | | [place] [address] | + + + | Preferred Language | Unknown | + + + | Marital Status | Unknown | + + + | Samaritan Affiliation | Unknown | + + + | Race | Unknown | + + + | Ethnic Group | Unknown | + + + Author + + + | Author | [facility] | + + + | Organization | [facility] | + + + | Address | [address] | | | [place] [address] | + + + | Phone | | + + + Care Team Providers + + + + | Care Under Presser Name | Role | Phone | + + + + Unavailable | Unavailable | + + + + PROBLEMS + + + + + + + + | Type | Condition | ICD9-CM | [id number] | Onset | Condition | SNOMED | | | | Code | Code | Dates | Status | Code | + + + + + + + + | Assessment | Vaginal | | N89.8 | 06 September, | Active | [id number] | | | discharge | | | 2016 | | | + + + + + + + + | Assessment | Routine | Z12.4 | | 06 September, | Active | [id number] | | | Papanicola | | | 2017 | | | | | ou smear | | | | | | + + + + + + + + | 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 | | | | | | + + + + + + + + | Assessment | Well woman | Z01.419 | | 06 September, | Active | 531045223 | | | exam | | | 2016 | | | + + + + + + + + | Problem | Weakness | | R53.1 | | Active | 10393171 | + + + + + + + + | Problem | Fall | | W19.XXXA | | Active | 9723701 | + + + + + + + + | Problem | SUICIDAL | V62.84 | | | Active | 3297714 | | | IDEATION | | | | | | + + + + + + + + | Problem | History of | V13.89 | | | Active | | | | lump of | | | | | | | | left | | | | | | | | breast | | | | | | + + + + + + + + | Problem | Acalculous | 575.10 | | | Active | 51572151 | | | | | | | | | | | cholecysti | | | | | | | | tis | | | | | | + + + + + + + + | Problem | Radiculopa | | M54.17 | | Active | 2337659 | | | thy, | | | | | | | | lumbosacra | | | | | | | | l region | | | | | | + + + + + + + + | Problem | Tobacco | V65.42 | | | Active | 166245743 | | | abuse | | | | | | | | counseling | | | | | | + + + + + + + + | Problem | 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 | | | | | | | | hip | | | | | | + + + + + + + + | Problem | Family | V16.0 | | | Active | 661702431 | | | history of | | [...] y | | | | | | + + + + + + + + | Problem | Stress | | N39.3 | | Active | 24301378 | | | incontinen | | | | | | | | ce | | | | | | | | (female) | | | | | | | | (male) | | | | | | + + + + + + + + | Problem | Facet | M46.96 | | | Active | 756779804 | | | arthropath | | | | | | | | y, lumbar | | | | | | + + + + + + + + | Problem | Radiculopa | | M54.12 | | Active | 60590287 | | | thy, | | | | | | | | cervical | | | | | | | | region | | | | | | + + + + + + + + | Problem | At high | Z91.81 | | | Active | 713587841 | | | risk for | | | | | | | | falls | | | | | | + + + + + + + + | Problem | Mobility | Z74.09 | | | Active | 83404821 | | | impaired | | | | | | + + + + + + + + | Problem | 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 | 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 | | | 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 | | | | | | + + + + + + + + | Problem | Lump of | 611.72 | | | Active | 85595490 | | | left | | | | | | | | breast | | | | | | + + + + + + + + | Problem | History of | V12.29 | | | Active | 1035914086 | | | goiter | | | | | [address]4937 | + + + + + + + + | Problem | Obesity | | E66.9 | | Active | 500257517 | + + + + + + + + | Problem | Tobacco | | Z72.0 | | Active | 729312828 | | | use | | | | | | + + + + + + + + | Problem | Status | Z96.651 | | | Active | 6710495382 | | | post total | | | | | 02 | | | knee | | | | | | | | replacemen | | | | | | | | t, right | | | | | | + + + + + + + + | Problem | Elevated | | D72.829 | | Active | 528979587 | | | white | | | | | | | | blood cell | | | | | | | | count, | | | | | | | | unspecifie | | | | | | | | d | | | | | | + + + + + + + + | Assessment | Pain in | | M25.561 | 06 September, | Active | 6808966917 | | | right knee | | | 2017 | | [address] | + + + + + + + + | Problem | Major | F33.9 | | | Active | 52414283 | | | depressive | | | | | | | | disorder, | | | | | | | | recurrent | | | | | | | | episode, | | | | | | | | unspecifie | | | | | | | | d severity | | | | | | + + + + + + + + | Assessment | Breast | | Z12.39 | 06 September, | Active | 773111191 | | | screening | | | 2016 | | | + + + + + + + + | Problem | Other | G89.29 | | | Active | 09500976 | | | chronic | | | | | | | | pain | | | | | | + + + + + + + + | Problem | Radiculopa | | M54.16 | | Active | 195810444 | | | thy, | | | | | | | | lumbar | | | | | | | | region | | | | | | + + + + + + + + | Assessment | Recurrent | | M23.51 | 06 September, | Active | | | | right knee | | | 2017 | | | | | | | | | | | | | instabilit | | | | | | | | y | | | | | | + + + + + + + + | Problem | COPD | | J44.9 | | Active | 65496246 | | | (chronic | | | | | | | | obstructiv | | | | | | | | e | | | | | | | | pulmonary | | | | | | | | disease) | | | | | | + + + + + + + + | Problem | Hypothyroi | | E03.9 | | Active | 48908436 | | | dism | | | | | | + + + + + + + + | Problem | Stress | N39.3 | | | Active | 29291080 | | | incontinen | | | | | | | | ce | | | | | | + + + + + + + + | Problem | Pain in | | M25.551 | | Active | 338009414 | | | right hip | | | | | | + + + + + + + + | Problem | Degenerati | M47.816 | | | Active | 61807016 | | | ve | | | | | | | | arthritis | | | | | | | | of lumbar | | | | | | | | spine | | | | | | + + + + + + + + ALLERGIES + + + + +--------+ | Substance | Reaction | Event Type | Date | Status | + + + + +--------+ | Morphine | rash | Drug Allergy | August, | Active | + + + + +--------+ SOCIAL HISTORY No smoking Hx information available PLAN OF CARE + +---------+ | Activity | Details | + +---------+ +---+ | | +---+ + + + | Pending Test | Aerobic Bacterial Culture | + + + | Pending Test | Mammogram: Screening Bilateral | + + + | | 3 Months,Reason: | + + + VITAL SIGNS + + + + | Height | 63 in | 2016-09-06 | + + + + | Weight | 193.2 lbs | 2016-09-06 | + + + + | BMI | 34.22 kg/m2 | 2016-09-06 | + + + + | Temperature | 97.7 degrees Fahrenheit | 2016-09-06 | + + + + | Heart Rate | 77 /min | 2016-09-06 | + + + + | Blood pressure systolic | 115 mm Hg | 2016-09-06 | + + + + | Blood pressure diastolic | 84 mm Hg | 2016-09-06 | + + + + MEDICATIONS + [...] + + + + + +--------+ | Oxycodon | Orally | 1 tablet | 8h | | | | Active | | e HCl 5 | every 8 | | | | | | | | MG | hrs | | | | | | | [...] | | Full | | Feb, | 2 Feb, | 99 | Active | | Stocking [...] | + + + + + | Preventive Care Est | September 06, 2016 | | | | Pt. Age 40-64 | | | | + + + + + | Est Level II | September 06, 2016 | | | | Limited | | | | + + + + + | DOC MEDS VERIFIED | September 06, 2016 | | | | W/PT OR RE | | | | + + + + + | [facility] MED/CURRENT | September 06, 2016 | | | | MED MERGE | | | | + + + + + IMMUNIZATIONS No Known Immunizations"
--- OUTSIDE RECORDS SUMMARY | ~2017-08-27 | XMS ---
Demographics + + + | Address | [address] | | | [address] | | | [place] [address] | + + + | Preferred Language | Unknown | + + + | Marital Status | Unknown | + + + | Islam Affiliation | Unknown | + + + | Race | Unknown | + + + | Ethnic Group | Unknown | + + + Author + + + | Author | [facility] | + + + | Organization | [facility] | + + + | Address | [address] | | | [place] [address] | + + + | Phone | | + + + Care Team Providers + + + + | Care Director Of Materials Name | Role | Phone | + + + + Unavailable | Unavailable | + + + + PROBLEMS +---------+ + + +--------+ + + | Type | Condition | ICD9-CM | [id number] | Onset | Condition | SNOMED | | | | Code | Code | Dates | Status | Code | +---------+ + + +--------+ + + | Problem | Acute | C92.00 | | | Active | 44936066 | | | myeloid | | | | | | | | leukemia | | | | | | +---------+ + + +--------+ + + | Problem | Weakness | | R53.1 | | Active | 31578876 | +---------+ + + +--------+ + + | Problem | Fall | | W19.XXXA | | Active | 9317933 | +---------+ + + +--------+ + + | Problem | SUICIDAL | V62.84 | | | Active | 0999920 | | | IDEATION | | | [...] | 575.10 | | | Active | 91545366 | | | | | | | | | | | cholecysti | | | | | | | | tis | | | | | | +---------+ + + +--------+ + + | Problem | Radiculopa | | M54.17 | | Active | 8095012 | | | thy, | | | | | | | | lumbosacra | | | | | | | | l region | | | | | | +---------+ + + +--------+ + + | Problem | Tobacco | V65.42 | | | Active | 261023869 | | | abuse | | | | | | | | counseling | | | | | | +---------+ + + +--------+ + + | Problem | Degenerati | M16.9 | | | Active | 557965998 | | | ve joint | | | | | | | | disease | | | | | | | | (DJD) of | | | | | | | | hip | | | | | | +---------+ + + +--------+ + + | Problem | Family | V16.0 | | | Active | 957113804 | | | history of | | [...] | | N39.3 | | Active | 47017303 | | | incontinen | | | | | | | | ce | | | | | | | | (female) | | | | | | | | (male) | | | | | | +---------+ + + +--------+ + + | Problem | Facet | M46.96 | | | Active | 175100578 | | | arthropath | | | | | | | | y, lumbar | | | | | | +---------+ + + +--------+ + + | Problem | Radiculopa | | M54.12 | | Active | 75413005 | | | thy, | | | | | | | | cervical | | | | | | | | region | | | | | | +---------+ + + +--------+ + + | Problem | At high | Z91.81 | | | Active | 519151760 | | | risk for | | | | | | | | falls | | | | | | +---------+ + + +--------+ + + | Problem | Mobility | Z74.09 | | | Active | 41485925 | | | impaired | | | | | | +---------+ + + +--------+ + + | Problem | 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 | 26188197 | | | 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 | | | | | | +---------+ + + +--------+ + + | Problem | Lump of | 611.72 | | | Active | 87468250 | | | left | | | | | | | | breast | | | | | | +---------+ + + +--------+ + + | Problem | History of | V12.29 | | | Active | 3375101 | | | goiter | | | | | | +---------+ + + +--------+ + + | Problem | Obesity | | E66.9 | | Active | 749409534 | +---------+ + + +--------+ + + | Problem | Tobacco | | Z72.0 | | Active | 294439840 | | | use | | | | | | +---------+ + + +--------+ + + | Problem | Status | Z96.651 | | | Active | 3088194420 | | | post total | | | | | 02 | | | knee | | | | | | | | replacemen | | | | | | | | t, right | | | | | | +---------+ + + +--------+ + + | Problem | Elevated | | D72.829 | | Active | 645636448 | | | white | | | [...] | F33.9 | | | Active | 32921447 | | | depressive | | | [...] | G89.29 | | | Active | 86227316 | | | chronic | | | | | | | | pain | | | | | | +---------+ + + +--------+ + + | Problem | Radiculopa | | M54.16 | | Active | 007086278 | | | thy, | | | | | | | | lumbar | | | | | | | | region | | | | | | +---------+ + + +--------+ + + | Problem | COPD | | J44.9 | | Active | 97306990 | | | (chronic | | | | | | | | obstructiv | | | | | | | | e | | | | | | | | pulmonary | | | | | | | | disease) | | | | | | +---------+ + + +--------+ + + | Problem | Hypothyroi | | E03.9 | | Active | 96861659 | | | dism | | | | | | +---------+ + + +--------+ + + | Problem | Stress | N39.3 | | | Active | 16399692 | | | incontinen | | | | | | | | ce | | | | | | +---------+ + + +--------+ + + | Problem | Pain in | | M25.551 | | Active | 7646088354 | | | right hip | | | | | [address]1036 | +---------+ + + +--------+ + + | Problem | Degenerati | M47.816 | | | Active | 42013553 | | | ve | | | | | | | | arthritis | | | | | | | | of lumbar | | | | | | | | spine | | | | | | +---------+ + + +--------+ + + ALLERGIES No Information SOCIAL HISTORY Never Assessed PLAN OF CARE VITAL SIGNS MEDICATIONS Unknown Medications RESULTS No Results PROCEDURES No Known procedures IMMUNIZATIONS No Known Immunizations MEDICAL (GENERAL) HISTORY + + +---------+ | Type | Description | Date | + + +---------+ | Medical History | thyroid disease | | + + +---------+ | Medical History | depression | | + + +---------+ | Medical History | Hyperinflation of lungs. 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 | | + + +---------+ | Medical History | COPD | | + + +---------+ | Surgical History | hysterectomy/partial r/t | | | | uterine cancer. Still has | | | | ovaries. 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 | | + + +---------+"
--- OUTSIDE RECORDS SUMMARY | ~2017-08-27 | XMS | Encounter Summary ---
Demographics + + + | Address | [address] | | | [place] [address] | + + + | Home Phone [...] + + + | Author | [facility] | + + + | Organization | [facility] | + + + | Address [...] Team Providers + +------+ + | Care Orthopaedic General Name | Role | Phone | + +------+ + | Saurav De Los Santos NP | PCP | | + +------+ + Reason for Visit + + + | Reason | Comments | + + + | Oral Chemo | | + + + | Prior Authorization | | | Request | | + + + Encounter Details +--------+ + + + + | Date | Type | Department | Care Team | Description | +--------+ + + + + | 07/01/ | Telephone | [facility] | [facility] | Oral Chemo; Prior | | 2018 | | [facility] | [facility] | Authorization | | | | [address] | [place], | Request | | | | [place] | [place] [address] | | | | | [place], [place] | | | | | | [address] | | | +--------+ + + + [...]
--- OUTSIDE RECORDS SUMMARY | ~2017-08-27 | XMS | Clinical Summary ---
Demographics + + + | Address | [address] | | | [place] [id number] | + + + | Home Phone | | + + + | Preferred Language | Unknown | + + + | Marital Status | | + + + | Confucianist Affiliation | NON | + + + | Race | White | + + + | Ethnic Group | Not or | + + + Author + + + | Author | [facility] | + + + | Organization | [facility] | + + + | Address | [...] Team Providers + +------+ + | Care Handbag Parts Cutter Name | Role | Phone | + +------+ + | Saurav De Los Santos NP | PP | | + +------+ + Source Comments [facility] is fully live on both EpicCare Ambulatory and EpicCare InPatient.[facility] Allerg[facility] + + + + + + | Active Allergy | Reactions | Severity | Noted | Comments | | | | | Date | | + + + + + + | Cefepime | Rash | Low | 03/22/20 | | | | | | 17 | | + + + + + + | Morphine | Rash, Facial | | 02/15/20 | Rash and facial | | | Swelling | | 16 | swelling | + + + + + + | Opioids - Morphine | Confusion | | 02/15/20 | | | Analogues | | | 16 | | + + + + + + Current Medications + + +---------+---------+------+------+-------+ | Prescription | Sig. | Disp. | Refills | Star | End | Statu | | | | | | t | Date | s | | | | | | Date | | | + + +---------+---------+------+------+-------+ | acyclovir 800 mg | Take 1 tablet by | 30 | 11 | 12/1 | | Activ | | oral | mouth once daily. | tablet | | 2/20 | | e | | tabletIndications: | Indications: viral | | | 17 | | | | HSV, prophylaxis | infection prevention | | | | | | + + +---------+---------+------+------+-------+ | amLODIPine 10 mg | Take 1 tablet by | 30 | 5 | 12/1 | | Activ | | oral | mouth once daily. | tablet | | 2/20 | | e | | tabletIndications: | Indications: | | | 17 | | | | hypertension | hypertension | | | | | | + + +---------+---------+------+------+-------+ | levothyroxine 75 | Take 0.5 tablets by | 15 | 2 | 12/1 | | Activ | | mcg oral | mouth before | tablet | | 2/20 | | e | | tabletIndications: | breakfast. | | | 17 | | | | hypothyroidism | Indications: | | | | | | | | hypothyroidism | | | | | | + + +---------+---------+------+------+-------+ | lisinopril 5 mg | Take 1 tablet by | 30 | 3 | 12/1 | | Activ | | oral | mouth once daily. | tablet | | 2/20 | | e | | tabletIndications: | Indications: | | | 17 | | | | hypertension | hypertension | | | | | | + + +---------+---------+------+------+-------+ | LORazepam 0.5 mg | Take 1 tablet by | 30 | 0 | 12/1 | | Activ | | oral | mouth every eight | tablet | | 2/20 | | e | | tabletIndications: | hours as needed for | | | 17 | | | | Acute myeloid | Nausea/Vomiting. | | | | | | | leukemia not having | | | | | | | | achieved remission | | | | | | | | ([facility]) | | | | | | | + + +---------+---------+------+------+-------+ | ondansetron 4 mg | Take 1 to 2 tablets | 30 | 5 | 12/1 | | Activ | | oral tablet | by mouth every | tablet | | 2/20 | | e | | | twelve hours as | | | 17 | | | | | needed for | | | | | | | | nausea/vomiting. | | | | | | + + +---------+---------+------+------+-------+ | omeprazole 20 mg | Take 1 capsule by | 30 | 2 | 12/1 | | Activ | | oral capsule,delayed | mouth before | capsule | | 2/20 | | e | | | breakfast. | | | 17 | | | | release(DR/EC)Indica | Indications: | | | | | | | tions: | gastroesophageal | | | | | | | gastroesophageal | reflux disease | | | | | | | reflux disease | | | | | | | + + +---------+---------+------+------+-------+ | oxybutynin CR 15 | Take 1 tablet by | 30 | 2 | 12/1 | | Activ | | mg oral tablet | mouth once daily. | tablet | | 2/20 | | e | | extended release | Indications: Bladder | | | 17 | | | | 24hrIndications: | Hyperactivity | | | | | | | Bladder | | | | | | | | Hyperactivity | | | | | | | + + +---------+---------+------+------+-------+ | oxyCODONE | Take 1 to 2 tablets | 60 | 0 | 12/1 | | Activ | | (immediate release) | by mouth every six | tablet | | 2/20 | | e | | 5 mg oral tablet | hours as needed for | | | 17 | | | | | moderate pain. | | | | | | + + +---------+---------+------+------+-------+ | prochlorperazine 5 | Take 1-2 tablets by | 60 | 3 | 12/1 | | Activ | | mg oral | mouth four times | tablet | | 2/20 | | e | | tabletIndications: | daily as needed for | | | 17 | | | | Cancer | nausea/vomiting. Max | | | | | | | Chemotherapy-Induced | dose 40 mg/day. | | | | | | | Nausea and Vomiting | Indications: Cancer | | | | | | | | Chemotherapy-Induced | | | | | | | | Nausea and Vomiting | | | | | | + + +---------+---------+------+------+-------+ | tiotropium 18 mcg | Inhale 1 capsule | 30 | 5 | 12/1 | | Activ | | inhalation capsule, | once daily. | capsule | | 2/20 | | e | | w/inhalation | Indications: | | | 17 | | | | deviceIndications: | Bronchospasm | | | | | | | Bronchospasm | Prevention with COPD | | | | | | | Prevention with COPD | | | | | | | + + +---------+---------+------+------+-------+ | traZODone 50 mg | Take 0.5-1 tablets | 30 | 0 | 12/1 | | Activ | | oral | by mouth once daily | tablet | | 220 | | e | | tabletIndications: | at bedtime as | | | 17 | | | | insomnia associated | needed. Indications: | | | | | | | with depression | insomnia associated | | | | | | | | with depression | | | | | | + + +---------+---------+------+------+-------+ | VENTOLIN HFA 90 | Inhale 1 puff by | 1 | 5 | 12/1 | | Activ | | mcg/actuation | mouth every six | Inhaler | | 2/20 | | e | | inhalation HFA | hours as needed | | | 17 | | | | aerosol | (shortness of | | | | | | | inhalerIndications: | breath, wheezing). | | | | | | | Acute Asthma Attack | Indications: Acute | | | | | | | | Asthma Attack | | | | | | + + +---------+---------+------+------+-------+ | SORAfenib 200 mg | Take 2 tablets by | 120 | 3 | 03/0 | | Activ | | oral tablet | mouth two times | tablet | | 3/20 | | e | | | daily. | | | 18 | | | + + +---------+---------+------+------+-------+ | DULoxetine 30 mg | Take 3 capsules by | 90 | 2 | 04/1 | | Activ | | oral capsule,delayed | mouth once daily. | capsule | | 0/20 | | e | | | Indications: major | | | 18 | | | | release(DR/EC)Indica | depressive disorder | | | | | | | tions: major | | | | | | | | depressive disorder | | | | | | | + + +---------+---------+------+------+-------+ | hydrocortisone 2.5 | Apply to rash on | 20 g | 1 | 04/1 | | Activ | | % topical ointment | face two times | | | 0/20 | | e | | | daily. | | | 18 | | | + + +---------+---------+------+------+-------+ | loratadine 10 mg | Take 1 tablet by | 30 | 2 | 04/1 | | Activ | | oral tablet | mouth once daily. | tablet | | 0/20 | | e | | | | | | 18 | | | + + +---------+---------+------+------+-------+ | posaconazole DR | Take 3 tablets by | 90 | 0 | 04/1 | | Activ | | 100 mg oral | mouth once daily. | tablet | | 0/20 | | e | | tablet,delayed | Indications: | | | 18 | | | | release | ANTIFUNGAL PROPHY | | | | | | | (DR/EC)Indications: | | | | | | | | ANTIFUNGAL PROPHY | | | | | | | + + +---------+---------+------+------+-------+ | potassium chloride | Take 2 tablets by | 120 | 0 | 04/1 | | Activ | | SR 10 mEq oral | mouth two times | tablet | | 0/20 | | e | | tablet,ER | daily. | | | 18 | | | | particles/crystals | | | | | | | + + +---------+---------+------+------+-------+ | levoFLOXacin | Take 1 tablet by | 30 | 2 | 04/1 | | Activ | | (LEVAQUIN) 500 mg | mouth once daily. | tablet | | 0/20 | | e | | oral | Indications: | | | 18 | | | | tabletIndications: | infection prevention | | | | | | | medical/surgical, | | | | | | | | prophylaxis | | | | | | | + + +---------+---------+------+------+-------+ Active Problems + + + | Problem | Noted Date | + + + | Chemotherapy induced diarrhea | 07/07/2017 | + + + | Proctitis | 07/06/2017 | + + + | Protein-calorie malnutrition, mild (HCC) | 07/06/2017 | + + + | Immunocompromised state (HCC) | 07/06/2017 | + + + | Transaminitis | 07/04/2017 | + + + | Hepatosplenomegaly | 07/04/2017 | + + + | Pleural effusion | 07/04/2017 | + + + | Pancytopenia due to antineoplastic chemotherapy (HCC) | 07/02/2017 | + + + | Local infection due to PICC (peripherally inserted central | 03/15/2017 | | catheter) | | + + + | Neutropenic fever (HCC) | 03/04/2017 | + + + | Abnormal CXR | 03/04/2017 | + + + | Pneumonia with the fungal infection aspergillosis (HCC) | 03/10/2016 | + + + | C. difficile colitis | 03/10/2016 | + + + | Rash of face | 03/05/2016 | + + + | [facility] RESEARCH PROTOCOL PATIENT (SUNNY) | 02/23/2016 | + + + + + | Overview: Patient was consented to the study eIRB #[id number] | | titled "Pathogenesis of Acute Leukemia, Lymphoproliferative | | Disorders, Myelodysplastic Syndromes, and Myeloproliferative | | Disorders" by Kar Elizondo MD, on 02/15/16. Patient agreed | | to have a skin biopsy taken during the standard of care bone | | marrow biopsy. | + + + + + | Acute myeloid leukemia not having achieved remission (HCC) | 02/18/2016 | + + + | Learning disability | 02/18/2016 | + + + | COPD (chronic obstructive pulmonary disease) (HCC) | 02/15/2016 | + + + | Dental infection | 02/15/2016 | + + + | Anxiety and depression | 02/15/2016 | + + + Resolved Problems + + + + | Problem | Noted | Resolved | | | Date | Date | + + + + | Pancytopenia due to chemotherapy (HCC) | 03/05/20 | | | | 16 | 6 | + + + + | Neutropenic fever (HCC) | 03/05/20 | | | | 16 | 6 | + + + + | Chemotherapy-induced nausea | 03/05/20 | | | | 16 | 6 | + + + + Encounters +--------+ + + + + | Date | Type | Specialty | Care Team | Description | +--------+ + + + + | 08/09/ | Pharmacy | | | | | 2017 | Visit | | | | +--------+ + + + + | 08/08/ | Pharmacy | | | | | 2017 | Visit | | | | +--------+ + + + + | 08/08/ | Pharmacy | | | | | 2017 | Visit | | | | +--------+ + + + + | 08/07/ | Pharmacy | | | | | 2017 | Visit | | | | +--------+ + + + + | 08/06/ | Radio Program Director | | Shayna Gardiner, | Acute myeloid | | 2017 | | | [place] | leukemia not having | | | | | | achieved remission | | | | | | (HCC) (Primary Dx) | +--------+ + + + + | 08/06/ | Pharmacy | | | | | 2017 | Visit | | | | +--------+ + + + + | 08/01/ | Office | | Leatha Gilmore | Acute myeloid | | 2017 | Visit | | BILLY Gregorio Ola | leukemia not having | | | | | LMD Shah, | achieved remission | | | | | MICHAEL Manzanares | (HCC) (Primary Dx) | +--------+ + + + + | 07/31/ | Anesthesia | | Glenna Shah, | | | 2017 | Event | | DIRECTOR EMERGENCY | | +--------+ + + + + | 07/03/ | Pharmacy | | | | | 2017 | Visit | | | | +--------+ + + + + | 07/02/ | Pharmacy | | | | | 2017 | Visit | | | | +--------+ + + + + | 07/01/ | Telephone | | Beverly Goodwin | Oral Chemo; Prior | | 2017 | | | | Authorization | | | | | | Request | +--------+ + + + + | 07/01/ | Pharmacy | | | | 2017 | Visit | | | | +--------+ + + + + | 07/01/ | Pharmacy | | | | 2017 | Visit | | | | +--------+ + + + + | 06/30/ | Pharmacy | | | | | 2017 | Visit | | | | +--------+ + + + + | 06/29/ | Pharmacy | | | | | 2017 | Visit | | | | +--------+ + + + + | 06/29/ | Procedure | | | | | 2017 | Pass | | | | +--------+ + + + + | 06/29/ | Procedure | | | | | 2017 | Pass | | | | +--------+ + + + + | 06/28/ | Hospital | | Kar Delgado, | | | 2018 - | Encounter | | Pepe Johnson, | | | | | | Kay Thomas, | | | 08/08/ | | | Angelia Conrad | | | 2018 | | | MD Christos | | +--------+ + + + + +---+ + | | Discharge | | | Summaries | | | - Bassam, | | | Noris, ACNP | | | - | | | 08/08/2017 | | | 12:30 PM | | | PDT | | | Formatting | | | of this | | | note may be | | | different | | | from the | | | original.[place] | | [facility] | | | Discharge | | | SummaryDisc | | | harging | | | Provider: | | | NORIS | | | BASSAM, | | | ACNPDischar | | | ging | | | Attending | | | Physician: | | | Pepe | | | MD Partha | | | Hospital | | | Stay: 41 | | | day(s)PCP: | | | Saurav | | | Staci, | | | NPAdmission | | | Date: | | | 06/28/2017Dis | | | charge | | | Date: | | | 08/08/2017Ho | | | spital | | | Stay: 41 | | | day(s)Reaso | | | n for | | | Admission:A | | | dmitted fr | | | eval and | | | treatment | | | of relapsed | | | | | | AMLPrincipa | | | l Final | | | Diagnosis:A | | | ML | | | refractoryA | | | dditional | | | Diagnoses:C | | | OPD | | | (chronic | | | obstructive | | | pulmonary | | | disease)Anx | | | iety and | | | depression | | | Acute | | | myeloid | | | leukemia | | | not having | | | achieved | | | remission | | | Learning | | | disability | | | Rash of | | | face | | | Neutropenic | | | fever | | | Pancytopeni | | | a due to | | | antineoplas | | | tic | | | chemotherap | | | y | | | Transaminit | | | is | | | Hepatosplen | | | omegaly | | | Pleural | | | effusion | | | Proctitis | | | Protein-mel | | | orie | | | malnutritio | | | n, mild | | | Immunocompr | | | omised | | | state | | | Chemotherap | | | y induced | | | diarrheaPro | | | cedures:Hos | | | pital | | | Course:CHM | | | Physician: | | | Pepe Chavis, | | | MDLocal | | | Oncologist: | | | Daniel | | | Leonardo | | | , MDPCP: | | | Saurav | | | Staci, | | | TIMBER HEWER Brief | | | hospital | | | synopsis: | | | Ms Peak is | | | a 51 yo | | | woman with | | | 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 | | | She has an | | | extensive | | | history of | | | several | | | regimens | | | tried in | | | past, see | | | H/P for | | | complete | | | details and | | | her clinic | | | notes. | | | Was given | | | Arlette + | | | modified | | | Anca-C. | | | Unfortunate | | | ly she did | | | not | | | recovery | | | counts at 4 | | | weeks, so | | | a bone | | | marrow was | | | done that | | | showed poor | | | | | | cellularity | | | but 80% | | | blasts. | | | Lengthy | | | discussions | | | with | | | patient and | | | her | | | family. We | | | are trying | | | to get | | | Sorafanib | | | approval | | | from her | | | iinsurance, | | | but so far | | | they have | | | denied all | | | appeals. | | | The purpose | | | of the | | | Sorafanib | | | would be to | | | try to | | | extend her | | | life. She | | | understands | | | that she | | | no longer | | | has any | | | other | | | treatment | | | options and | | | is going | | | home for | | | follow up | | | with | | | [facility]ardo | | | . She wants | | | to | | | continue | | | receiving | | | blood | | | product | | | support | | | until she | | | no longer | | | feels well | | | and then | | | will change | | | to | | | hospice. | | | Her family | | | is aware of | | | the plan, | | | and Dr. | | | [place] did | | | speak with | | | Dr. | | | Leonardo | | | | | | immediately | | | before | | | discharge. | | | Of note, | | | she did | | | have fevers | | | within 24 | | | hours of | | | leaving. | | | [place] to be | | | most c/w | | | disease | | | fevers. Pt | | | was | | | asymptomati | | | c. | | | Cultures | | | were drawn, | | | will | | | notify Dr. | | | Leonardo | | | if | | | positive | | | results | | | returned. | | | Will dc on | | | levaquin. | | | COMPLETE | | | SUMMARY OF | | | PATIENT'S | | | HOSPITALIZA | | | TIONHistory | | | of Present | | | Illness: | | | (from | | | H&P)Rhea | | | Peak is a | | | 51-year-old | | | woman with | | | a history | | | of COPD, | | | depression, | | | | | | hypothyroid | | | ism, and | | | AML | | | diagnosed | | | in late | | | 2016 after | | | she | | | presented | | | with | | | pleuritic | | | chest pain | | | and | | | shortness | | | of breath | | | in addition | | | to | | | profound | | | leukocytosi | | | s. Her | | | disease was | | | initially | | | managed | | | with 7+3+ | | | Dasatinib, | | | course | | | gated by | | | neutropenic | | | fevers, C. | | | difficile, | | | nodular | | | groundglass | | | opacities | | | concerning | | | for | | | invasive | | | fungal | | | infection | | | (although | | | galactomann | | | an | | | negative), | | | treated | | | with | | | Isavuconazo | | | le -> | | | Voriconazol | | | e. She was | | | reinduced | | | with | | | Cytarabine | | | and entered | | | CR1. She | | | subsequentl | | | y relapsed | | | in November | | | 2017 | | | started on | | | FLAG-Arlette | | | salvage-->C | | | R2. Her | | | course was | | | subsequentl | | | y | | | complicated | | | by | | | bacterial | | | pneumonia, | | | otherwise | | | recovered | | | well Patie | | | nt presents | | | as a | | | transfer | | | from | | | outside | | | hospital | | [facility] | | | where she | | | presented | | | with body | | | aches and | | | profound | | | fatigue, | | | anemic with | | | new | | | leukocytosi | | | s. Repeat | | | bone marrow | | | biopsy | | | concerning | | | for | | | relapsed | | | AML (blasts | | | positive | | | for CD 117, | | | CD33). In | | | the | | | interim | | | since her | | | initial | | | admission, | | | the patient | | | endorses | | | development | | | of new new | | | acute | | | onset | | | pleuritic | | | left-sided | | | chest pain. | | | She | | | states that | | | this chest | | | pain is | | | stabbing, | | | 5-6 out of | | | 10 in | | | intensity. | | | It is | | | accompanied | | | by a | | | degree of | | | resting | | | dyspnea. | | | Patient | | | also | | | endorses | | | nagging | | | cough | | | productive | | | of | | | white/yello | | | w sputum of | | | | | | approximate | | | ly 1 week's | | | duration. | | | She denies | | | | | | constitutio | | | nal | | | symptoms | | | including | | | fevers, | | | chills, | | | night | | | sweats. | | | She denies | | | new | | | palpitation | | | s. She | | | denies new | | | oral | | | lesions or | | | odynophagia | | | . She does | | | endorse a | | | degree of | | | ongoing | | | nausea but | | | states that | | | that is | | | baseline | | | for her. | | | She denies | | | emesis. | | | Endorses a | | | degree of | | | constipatio | | | n. Denies | | | deep new | | | | | | complaints. | | | She does | | | endorse a | | | developing | | | petechial | | | rash over | | | bilateral | | | lower | | | extremities | | | , as well | | | as her | | | upper back. | | | She | | | denies new | | | adenopathy. 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 | | | Pertinent | | | Diagnostics | | | :-BM Bx | | | 06/21/17 | | | (Integrated | | | Oncology | | | BM- | | | 7):-Results | | | : | | | Hypercellul | | | ar marrow | | | (90%) with | | | relapsed | | | acute | | | myelogenous | | | leukemia | | | (60%); | | | Blasts | | | positive | | | for CD117 | | | and CD 33, | | | negative | | | for CD34, | | | CD71, CD61, | | | CD3 and | | | PAX-5.-Cyto | | | genetics: | | | Normal-Gene | | | trails: | | | NPM1, | | | DNMT3A, | | | NRAS, TET2, | | | FLT3 TKD | | | mutations | | | -3/4 | | | peripheral | | | blood flow: | | | Recurrent | | | acute | | | myeloid | | | leukemia | | | (87% | | | blasts) | | | -08/01/17 | | | BMBx: | | | -Results: | | | hypocellula | | | r marrow | | | (5%) with | | | 80% blasts | | | | | | -Cytogeneti | | | cs: PENDING | | | | | | -Genetrails | | | : PENDING | | | | | | Treatment-C | | | hemotherapy | | | regimen: | | | Arlette + | | | Anca-C, | | | started | | | 07/01/17 | | | -Idarubicin | | | 12 mg/m2 | | | daily x 3 | | | days-Cytara | | | bine 1500 | | | mg/m2 CI IV | | | daily x 4 | | | days.-Soraf | | | enib | | | authorizati | | | on was | | | denied, | | | consider | | | mylotarg | | | for | | | subsequent | | | chemo | | | cycles. | | | -Chemo Day: | | | 37 | | | Patient is | | | currently | | | not a | | | transplant | | | candidate, | | | but if it | | | were to | | | change, | | | brother is | | | a match | | | Pt | | | understands | | | that | | | without | | | adequate | | | control of | | | her | | | leukemia, | | | that we | | | cannot | | | transplant | | | her. | | | Control of | | | disease is | | | critical | | | for | | | successful | | | transplant | | | course. | | | #Pancytopen | | | ia | | | secondary | | | to | | | chemotherap | | | y: -See | | | supportive | | | care#Suppor | | | tive | | | Care: | | | Growth | | | factor: no | | | growth | | | factors | | | required at | | | this | | | time | | | Labs: | | | Continue to | | | check CBC | | | daily- | | | while in | | | hospital | | | Follow up | | | CBC checks | | | by | | | [facility] | | | | | | Transfusion | | | | | | parameters: | | | -Transfuse | | | PRBCs for | | | HCT <21% if | | | | | | asymptomati | | | c-Transfuse | | | PPH for | | | platelet | | | count | | | <10,000 | | | sooner PRN | | | s/s | | | bleedingCar | | | diovascular | | | : Prechemo | | | TTE on | | | 06/29/17 | | | shows EF of | | | 65-70%#Hx | | | of | | | Hypertensio | | | n: | | | continues | | | on home | | | anti-hypert | | | ensives-Aml | | | odipine | | | 10mg | | | daily-Lisin | | | opril 5mg | | | dailyPulmon | | | yakelin: #COPD: | | | continues | | | on home | | | inhalers | | | -Spiriva | | | 18mcg daily | | | -Albuterol | | | | | | PRN#Multifo | | | mel PNA | | | (see ID | | | section)GI: | | | #Abdominal | | | pain: | | | multifactor | | | ial, likely | | | secondary | | | to | | | constipatio | | | n, | | | uncomplicat | | | ed | | | proctitis, | | | and HSM. | | | 06/29 CT AP | | | showed | | | uncomplicat | | | ed | | | proctitis, | | | hepatosplen | | | omegaly, | | | and stool | | | in rectum. | | | Resolved. | | | #Transamini | | | tis with | | | hyperbiliru | | | binemia, | | | possibly | | | d/t | | | idarubicin, | | | AML with | | | liver | | | infiltrates | | | or Zosyn. | | | Monitor.#CI | | | N, no | | | emesis: | | | controlled | | | -Antiemetic | | | s PRN#GERD: | | | worse on | | | 07/23 | | | -Maalox PRN | | | | | | -Omeprazole | | | to 40mg | | | daily#Diarr | | | hea, likely | | | due to | | | chemotherap | | | y: | | | resolving. 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 | | | Rash | | | resolved. | | | -On face: | | | triamcinolo | | | ne 0.1% | | | ointment | | | BID x 3 | | | days only. | | | Then switch | | | to | | | hydrocortis | | | one 2.5% | | | ointment | | | BID, | | | 07/17-07/23, | | | 4/- -On | | | body: | | | triamcinolo | | | ne 0.1% | | | ointment | | | BID, | | | 07/17-07/23In | | | fectious | | | Disease: | | | #Non-neutro | | | penic | | | fever, with | | | septic | | | picture 06/29 | | | with | | | tachycardia | | | , | | | tachypnea. | | | Afebrile at | | | the time, | | | however | | | spiked a | | | fever on | | | 07/01. | | | Localizing | | | symptoms | | | include | | | pleuritic | | | pain and | | | abdominal | | | pain. Bld | | | cx NGTD. | | | 06/29 CTA | | | showed left | | | pleural | | | effusion | | | and | | | adjacent | | | atelectasis | | | , no PE or | | | consolidati | | | ons. 06/29 CT | | | AP showed | | | uncomplicat | | | ed | | | proctitis, | | | HSM with | | | scattered | | | areas of | | | likely AML | | | infiltratio | | | n, | | | extramedull | | | yakelin | | | hematopoies | | | is or | | | microabsces | | | ses -s/p | | | zosyn (06/29- | | | 07/17) | | | -s/p | | | Levofloxaci | | | n | | | (07/17-07/21) | | | switched | | | with | | | neutropenic | | | | | | fevers/pseu | | | domonas | | | bacteremia | | | #Neutropeni | | | c fever: | | | noted on | | | 07/20. Bld | | | x 1 | | | positive | | | for | | | pseudomonas | | | . CXR neg. | | | Replaced | | | PICC 07/25 | | | -Zosyn | | | (07/21- ), | | | continue | | | through | | | discharge | | | then | | | transition | | | back to | | | levaquin | | | #Pseudomona | | | s | | | bacteremia: | | | bld cx x 1 | | | from 07/20 | | | positive. | | | Resistant | | | to cipro | | | and | | | meropenem | | | but | | | sensitive | | | to zosyn. | | | Repeat cx | | | from 07/21 | | | shows NGTD. | | | PICC | | | pulled 07/22 | | | -ID | | | following. | | | -Has | | | received | | | full 14 day | | | course of | | | zosyn for | | | bacteremia. | | | #Multifocal | | | PNA: With | | | | | | intermitten | | | t hypoxia, | | | obtained | | | CXR and | | | then CT | | | which shows | | | ANGELLA and | | | RLL PNA | | | which has | | | progressed | | | rapidly | | | compared to | | | CXR on | | | 07/25. | | | Serum | | | galactomann | | | an | | | negative. | | | -Consulted | | | ID and | | | pulmonary | | | and will | | | have BAL on | | | 07/31. | | | -Continue | | | zosyn and | | | posaconazol | | | e funtiil | | | time of dc, | | | then | | | changed to | | | levaquin | | | and | | | posaconazol | | | e#Prophylax | | | is:Bacteria | | | l: as | | | aboveFungal | | | : | | | Posaconazol | | | e, level | | | /=2.6Vira | | | l: | | | Acyclovir | | | PCP: not | | | indicatedFl | | | uid/Nutriti | | | on/Lytes: | | | #Nutrition: | | | Current | | | diet -- | | | Regular No | | | Madeline's | | | yogurt or | | | Kefir. | | | #Fluid: | | | none with | | | FVO and | | | adequate PO | | | | | | intake#Lyte | | | s: | | | -Continue | | | to check | | | chemistries | | | daily- | | | while in | | | hospital | | | -Replace | | | per | | | supportive | | | care | | | protocolPhy | | | sical exam | | | on day of | | | discharge:S | | | ubjective: | | | Happy she | | | is getting | | | to go home. | | | Very | | | appreciativ | | | e of her | | | care, | | | appropriate | | | ly sad. | | | Objective:L | | | ast Vitals: | | | BP 124/69 | | | | Pulse 100 | | | | Temp | | | 36.6 C | | | (97.9 F) | | | | RR 20 | | | | Ht 1.59 m | | | (5' 2.6") | | | | Wt 83.2 kg | | | (183 lb | | | 6.4 oz) | | | | SpO2 94% | | | | BMI 32.91 | | | kg/(m^2)24 | | | Hour Vital | | | Min/Max: | | | Systolic | | | (24hrs), | | | Av , | | | Min:111 , | | | Max:127 | | | Diastolic | | | (24hrs), | | | Av, | | | Min:63, | | | Max:74Pulse | | | Min: 89 | | | Max: | | | 111Temp | | | Min: 36.6 | | | C (97.9 | | | F) Max: | | | 38.6 C | | | (101.5 | | | F)Resp | | | Min: 14 | | | Max: 26SpO2 | | | Min: 87 % | | | Max: 96 | | | %Intake/Out | | | put Summary | | | (Last 24 | | | hours) at | | | 08/08/17 | | | 1434Last | | | data filed | | | at 08/08/17 | | | 1133 Gross | | | per 24 | | | hour Intake | | | | | | 2571 ml | | | Output | | | | | | 1205 ml Net | | | | | | 1366 ml | | | Physical | | | Exam:Genera | | | l: This is | | | a | | | | | | female in | | | no acute | | | distress. | | | Sitting up | | | in | | | chair.HEENT | | | : PERRL. | | | Sclerae | | | anicteric. | | | No lesions | | | noted in | | | mouthSkin: | | | Erythema | | | noted to | | | face with | | | edema. | | | Chest: | | | Clear to | | | auscultatio | | | n | | | bilaterally | | | .CV: RRR, | | | no | | | murmurs.Abd | | | omen: | | | S/NT/ND | | | with NABS. | | | No HSM | | | appreciated | | | .Extremitie | | | s: Pulses | | | strong and | | | equal | | | bilaterally | | | . No | | | c/c/2+ BLE | | | edema | | | NeuroPsych: | | | Alert and | | | oriented x | | | 3. | | | Grossly | | | nonfocal | | | exam. CVC: | | | LUE PICC | | | site | | | without | | | inflammatio | | | n or | | | induration. | | | | | | C/D/ILabora | | | tory | | | Results:Rec | | | ent Labs | | | 08/05/17 | | | 2359 | | | 08/06/17 | | | 2330 | | | 08/07/17 | | | 2357 NA | | | 135* 135* | | | 136 K | | | 3.2* 3.4 | | | 3.7 CL 98 | | | 99 101 | | | BICARB 30 | | | 30 25 BUN | | | 4* 5* | | | 5* CR | | | 0.51* | | | 0.54* | | | 0.50* GLU | | | 108* 100* | | | 97 CA | | | 8.2* 8.1* | | | 8.1* AST | | | 9 10 13 | | | ALT 11 8 | | | 12 AP | | | 145* 152* | | | 162* TBILI | | | 0.9 0.9 | | | 0.8 TP | | | 5.6* 5.5* | | | 5.5* ALB | | | 2.1* 2.1* | | | 2.1* | | | Recent Labs | | | | | | 07/01/17 | | | 2318 | | | 07/02/17 | | | 2336 | | | 07/04/17 | | | 0040 | | | 08/05/17 | | | 2359 | | | 08/06/17 | | | 2330 | | | 08/07/17 | | | 2357 WBC | | | 17.35* < | | | > 3.52 < | | | > 0.55* | | | < > | | | <0.10* | | | 0.13* | | | 0.14* RBC | | | 2.47* < > | | | 2.09* < | | | > 2.23* | | | < > 2.60* | | | 2.36* | | | 2.85* HB | | | 7.4* < > | | | 6.4* < > | | | 6.7* < | | | > 7.4* | | | 6.7* 8.3* | | | HCT 22.8* | | | < > | | | 19.2* < > | | | 19.9* < | | | > 21.5* | | | 19.6* | | | 24.0* PLT | | | 12* < > | | | 16* < > | | | 7* < > | | | 27* 20* | | | 12* | | | NEUTROPERC | | | 13.2* -- | | | 25.7* | | | -- 32.5* | | | -- -- | | | -- -- | | | LYMPHPERC | | | 6.1* -- | | | 5.3* | | | -- 5.0* | | | -- -- | | | -- -- | | | MONOPERC | | | 0.9* -- | | | 0.9* -- | | | 10.0* | | | -- -- | | | -- -- | | | BASOPERC | | | 0.0 -- | | | 0.0 -- | | | 0.0 -- | | | -- -- | | | -- | | | EOSPERC | | | 0.0* -- | | | 0.0* -- | | | 0.0* -- | | | -- | | | -- -- | | | < > = | | | values in | | | this | | | interval | | | not | | | displayed. | | | Discharge | | | Medications | | | : | | | Medication | | | List START | | | taking | | | these | | | medications | | | | | | hydrocortis | | | one 2.5 % | | | OintApply | | | to rash on | | | face two | | | times | | | daily.Repla | | | cindy: | | | hydrocortis | | | one 2.5 % | | | Crpe | | | KLOR-CON | | | M10 10 mEq | | | TbtqGeneric | | | drug: | | | potassium | | | chloride | | | SRTake 2 | | | tablets by | | | mouth two | | | times | | | daily. | | | levoFLOXaci | | | n 500 mg | | | TabCommonly | | | known as: | | | | | | LEVAQUINTak | | | e 1 tablet | | | by mouth | | | once daily. | | | | | | Indications | | | : infection | | | prevention | | | NON-DROWSY | | | ALLERGY 10 | | | mg | | | TabGeneric | | | drug: | | | loratadineT | | | brandon 1 | | | tablet by | | | mouth once | | | daily. | | | posaconazol | | | e DR 100 mg | | | | | | TbecCommonl | | | y known as: | | | | | | NOXAFILTake | | | 3 tablets | | | by mouth | | | once daily. | | | | | | Indications | | | : | | | ANTIFUNGAL | | | PROPHY | | | SORAfenib | | | 200 mg | | | TabCommonly | | | known as: | | | | | | NEXAVARTake | | | 2 tablets | | | by mouth | | | two times | | | daily. | | | CHANGE how | | | you take | | | these | | | medications | | | | | | DULoxetine | | | 30 mg | | | CpdrCommonl | | | y known as: | | | | | | CYMBALTATak | | | e 3 | | | capsules by | | | mouth once | | | daily. | | | Indications | | | : major | | | depressive | | | disorderWha | | | t | | | changed: | | | how much to | | | take | | | when to | | | take this | | | CONTINUE | | | taking | | | these | | | medications | | | acyclovir | | | 800 mg | | | TabCommonly | | | known as: | | | | | | ZOVIRAXTake | | | 1 tablet | | | by mouth | | | once daily. | | | | | | Indications | | | : viral | | | infection | | | prevention | | | amLODIPine | | | 10 mg | | | TabCommonly | | | known as: | | | | | | NORVASCTake | | | 1 tablet | | | by mouth | | | once daily. | | | | | | Indications | | | : | | | hypertensio | | | n | | | levothyroxi | | | ne 75 mcg | | | TabTake 0.5 | | | tablets by | | | mouth | | | before | | | breakfast. | | | Indications | | | : | | | hypothyroid | | | ism | | | lisinopril | | | 5 mg | | | TabCommonly | | | known as: | | | | | | PRINIVILTak | | | e 1 tablet | | | by mouth | | | once daily. | | | | | | Indications | | | : | | | hypertensio | | | n LORazepam | | | 0.5 mg | | | TabCommonly | | | known as: | | | ATIVANTake | | | 1 tablet | | | by mouth | | | every eight | | | hours as | | | needed for | | | Nausea/Vomi | | | ting. | | | omeprazole | | | 20 mg | | | CpdrCommonl | | | y known as: | | | | | | PRILOSECTak | | | e 1 capsule | | | by mouth | | | before | | | breakfast. | | | Indications | | | : | | | gastroesoph | | | ageal | | | reflux | | | disease | | | ondansetron | | | 4 mg | | | TabCommonly | | | known as: | | | ZOFRANTake | | | 1 to 2 | | | tablets by | | | mouth every | | | twelve | | | hours as | | | needed for | | | nausea/vomi | | | ting. | | | oxybutynin | | | CR 15 mg | | | [id number] | | | y known as: | | | | | | DITROPAN-XL | | | Take 1 | | | tablet by | | | mouth once | | | daily. | | | Indications | | | : Bladder | | | Hyperactivi | | | ty | | | oxyCODONE | | | (immediate | | | release) 5 | | | mg | | | TabCommonly | | | known as: | | | | | | ROXICODONET | | | brandon 1 to 2 | | | tablets by | | | mouth every | | | six hours | | | as needed | | | for | | | moderate | | | pain. | | | prochlorper | | | azine 5 mg | | | TabCommonly | | | known as: | | | | | | COMPAZINETa | | | ke 1-2 | | | tablets by | | | mouth four | | | times daily | | | as needed | | | for | | | nausea/vomi | | | ting. Max | | | dose 40 | | | mg/day. | | | Indications | | | : Cancer | | | Chemotherap | | | y-Induced | | | Nausea and | | | Vomiting | | | tiotropium | | | 18 mcg | | | CpdvCommonl | | | y known as: | | | | | | SPIRIVAInha | | | le 1 | | | capsule | | | once daily. | | | | | | Indications | | | : | | | Bronchospas | | | m | | | Prevention | | | with COPD | | | traZODone | | | 50 mg | | | TabCommonly | | | known as: | | | | | | DESYRELTake | | | 0.5-1 | | | tablets by | | | mouth once | | | daily at | | | bedtime as | | | needed. | | | Indications | | | : insomnia | | | associated | | | with | | | depression | | | VENTOLIN | | | HFA 90 | | | mcg/actuati | | | on | | | HfaaGeneric | | | drug: | | | albuterolIn | | | khan 1 puff | | | by mouth | | | every six | | | hours as | | | needed | | | (shortness | | | of breath, | | | wheezing). | | | Indications | | | : Acute | | | Asthma | | | Attack | | | STOP taking | | | these | | | medications | | | | | | hydrocortis | | | one 2.5 % | | | CrpeCommonl | | | y known as: | | | | | | PROCTOZONER | | | eplaced by: | | | | | | hydrocortis | | | one 2.5 % | | | Oint | | | midostaurin | | | 25 mg | | | CapCommonly | | | known as: | | | RYDAPT | | | Allergies:A | | | llergies | | | Allergen | | | Reactions | | | | | | Morphine | | | Rash and | | | Facial | | | Swelling | | | Rash and | | | facial | | | swelling | | | Opioids - | | | Morphine | | | Analogues | | | Confusion | | | | | | Cefepime | | | Rash Code | | | Status: | | | Full- pt | | | wishes this | | | until she | | | feels | | | poorly, but | | | will need | | | to be | | | addressed | | | again in | | | future. | | | POLST | | | completed: | | | noAdditiona | | | l | | | Instruction | | | s:Condition | | | on | | | Discharge | | | Stable Diet | | | Regular | | | Regular | | | diet- There | | | are no | | | restriction | | | s to your | | | diet. You | | | may eat or | | | drink | | | whatever | | | you prefer, | | | though | | | healthy | | | food | | | choices are | | | | | | recommended | | | . Activity | | | No activity | | | | | | restriction | | | s Home | | | Health | | | Referral | | | after | | | Hospitaliza | | | tion | | | Comments: I | | | certify | | | that this | | | patient is | | | under my | | | care and | | | that I, or | | | Nurse | | | Practitione | | | r or | | | Physician | | | Rn Plastics | | | working | | | with me, | | | had a face | | | to face | | | encounter | | | with this | | | patient on | | | 08/06/2017On | | | behalf of | | | Attending | | | Physician: | | | Pepe A | | | [place], MDI | | | am ordering | | | and | | | certify | | | that the | | | following | | | services | | | are | | | medically | | | necessary | | | home health | | | services | | | Home Health | | | Skilled | | | Nursing | | | Evaluate | | | and Treat | | | I am | | | ordering | | | and certify | | | that the | | | following | | | services | | | are | | | medically | | | necessary | | | home health | | | services | | | Home Health | | | Physical | | | Therapy | | | Evaluate | | | and Treat | | | I certify | | | that the | | | patient is | | | homebound | | | based on | | | the | | | following | | | clinical | | | findings | | | Post-hospit | | | al | | | weakness, | | | decreased | | | strength | | | and | | | endurance, | | | and tires | | | easily with | | | minimal | | | exertion | | | Follow | | | Up:Schedule | | | the | | | following | | | appointment | | | (s) when | | | you get | | | home | | | Daniel C | | | Leonardo | | | , Go on | | | 08/12/2017. | | | | | | Specialty: | | | Hematology | | | & | | | OncologyWhy | | | : You have | | | an | | | appointment | | | at 10:30am | | | to see Dr. | | | | | | Leonardo | | | at [facility]. | | | Further | | | appointment | | | s will be | | | arranged | | | by you as | | | necessaryCo | | | ntact | | | information | | | [facility] | | | [id number] | | [address] | | | [place] | | | [phone] | | [phone] | | | SAURAV | | | STACI, | | | TIMBER HEWER . | | | Specialty: | | | Nurse | | | Practitione | | | r Adult | | | [facility] | | | ct | | | information | | | [facility] | | | [id number] | | | [address] | | | [place] | | | [place] | | | [phone] | | [phone] | | | Daniel C | | | Leonardo | | | , MD Sanchez | | | Specialty: | | | Hematology | | | & | | | OncologyCon | | | tact | | | information | | | [facility] | | | [facility] | | | [id number] | | | [facility] | | | [address] | | | [phone] | | | n [place] | | | [phone] | | [phone] | | | Greater | | | than 35 | | | minutes | | | spent | | | arranging | | | discharge, | | | medications | | | and follow | | | up [facility] | | | [place], | | | [facility] | | | [id number] | | | [address] | | | [address] | | | [address] | | | [address] | | | e: | | | [id number] | | | [place], [place] | | | [phone] | | | [phone] | +---+ + +--------+ +---+ + + | 06/25/ | Telephone | | Gloria Ramirez | Treatment Planning | | 2017 | | | A, RN | | +--------+ +---+ + + | 06/14/ | Documentati | | Alexx Aguirre, | Transplant (LIT HLA | | 2017 | on | | MD | Typing - Family | | | | | | Results ) | +--------+ +---+ + + | 06/10/ | Hospital | | | | | 2017 | Encounter | | | | +--------+ +---+ + + | 06/06/ | Documentati | | Alexx Aguirre, | Transplant (LIT HLA | | 2017 | on | | | Family results) | +--------+ +---+ + + | 06/03/ | Lab | | Naresh Moe, | | | 2017 | Requisition | | MD Brady | | +--------+ +---+ + + | 05/31/ | Hospital | | | | | 2017 | Encounter | | | | +--------+ +---+ + + from Last 3 Months Family History + + +------+ + | Medical History | Relation | Name | Comments | + + +------+ + | Colon Cancer | Mother | | | + + +------+ + + +------+--------+ + | Relation | Name | Status | Comments | + +------+--------+ + | Mother | | | | + +------+--------+ + Social History + + + +--------+ [...] | | | + +---+---+---+ + + | Tobacco Cessation: Counseling Given: Yes | + + + + +---------+ + | Alcohol Use | Drinks/We | oz/Week | Comments | | | ek | | | + + +---------+ + | No | | | | + + +---------+ + + + + | Sex Assigned at | Date Recorded | | | | + + + | Not on file | | + + + Last Filed Vital Signs + + + [...] PM PDT | + + + + Plan of Treatment + + + + + | Health Maintenance | Due Date | Last Done | Comments | + + + + + | INFLUENZA VACCINE | | | | | (FLU SHOT) | 8 | | | + + + + + Procedures + +--------+ + + + | [...] | | | | | | type ([facility]) | | | | | | Immunocompromised | | | | | | state ([facility]) | | | | | | Pneumonia with the | | | | | | fungal infection | | | | | | aspergillosis ([facility]) | | | | | | Abnormal CXR | | + +--------+ + + + | ANESTHESIA/SEDATION | | 07/31/2017 | | Results for this | | | | 12:00 AM | | procedure are in the | | | | PDT | | results section. | + +--------+ + + + | ANESTHESIA/SEDATION | | 07/31/2017 | | Results for this | | | | 12:00 AM | | procedure are in the | | | | PDT | | results section. | + +--------+ + + + from Last 3 Months Results CULTURE, BLOOD BACTI & YEAST [facility] (08/08/2017 1:02 AM)Only the most recent of 9 results wi thin the time period is included. + + + + | Component | Value | Ref Range | + + + + | CULTURE RESULT | Final Report:No Bacteria or Yeast isolated | | | | at 5 days. | | + + + + + + + | Specimen | Performing Laboratory | + + + | Blood - Antecubital | [facility], [address] [place] [address] | | - right | [place] [address] | + + + CULTURE, BLOOD BACTI & YEAST (08/08/2017 1:02 AM)Only the most recent of 9 results within the time period is included. + + + | Specimen | Performing Laboratory | + + + | Blood | | + + + + + | Narrative | + + | The following orders were created for panel order CULTURE, BLOOD BACTI & YEAST. | | Procedure | | Abnormality Status | | --------- | | ------ CULTURE, BLOOD | | BACTI & Y...[[id number]] Final | | result Please view results for these tests on the | | individual orders. | + + CBC AND AUTO DIFF (08/07/2017 11:57 PM)Only the most recent of 42 results within the time kathleen gonzalez is included. + + + + | Component | [...] | + + + | Blood | [facility], [address] | | | [place] [address] | + + + + + | [...] in the neutrophil count. | + + CBC, WITH DIFFERENTIAL (08/07/2017 11:57 PM)Only the most recent of 42 results within the rishi period is included. + + + | Specimen | Performing Laboratory | + + + | Blood | | + + + + + | Narrative | + + | The following orders were created for panel order CBC, WITH DIFFERENTIAL. | | Procedure | | Abnormality Status | | --------- | | ------ CBC AND AUTO | | DIFF[[id number]] Abnormal Final | | result Please view results for these tests on the | | individual orders. | + + COMPLETE METABOLIC SET (NA,K,CL,CO2,BUN,CREAT,GLUC,CA,AST,ALT,BILI TOTAL,ALK PHOS,ALB,PROT TOTAL) (08/07/2017 11:57 PM)Only the most recent of 41 results within the time period is inc luded. + + + + | Component | [...] | >60 | >60 mL/min | | YEMENI | | | + + + + | EGFR NON | >60 | >60 mL/min | | -YEMENI | | | + + + + [...] | + + + | Blood | [facility], [place] [address] | | | [place] [address] | + + + + + | [...] function | + + COAGULOPATHY PANEL (INR,APTT,FIBRINOGEN) (08/07/2017 11:57 PM)Only the most recent of 15 re sults within the time period is included. + + + + | Component | [...] | + + + | Blood | [facility], [address] | | | [place] [address] | + + + + + | [...] 0.7 U/mL | + + PHOSPHORUS, PLASMA (08/07/2017 11:57 PM)Only the most recent of 49 results within the time period is included. + +-------+ + | Component | Value | Ref Range | + +-------+ + | PHOSPHORUS, PLASMA | 2.7 | 2.4 - 4.7 mg/dL | | (LAB) | | | + +-------+ + + + + | Specimen | Performing Laboratory | + + + | Blood | [facility], [address] [address] [place] [address] | | | [place] [address] | + + + URIC ACID, PLASMA (08/07/2017 11:57 PM)Only the most recent of 30 results within the time kathleen gonzalez is included. + +---------+ + | Component | Value | Ref Range | + +---------+ + | URIC ACID, PLASMA | 1.0 (L) | 2.5 - 6.2 mg/dL | | (LAB) | | | + +---------+ + + + + | Specimen | Performing Laboratory | + + + | Blood | [facility], [address] | | | [place] [address] | + + + MAGNESIUM, PLASMA (08/07/2017 11:57 PM)Only the most recent of 41 results within the time kathleen gonzalez is included. + +-------+ + | Component | Value | Ref Range | + +-------+ + | MAGNESIUM,PLASMA | 1.8 | 1.6 - 2.6 mg/dL | + +-------+ + + + + | Specimen | Performing Laboratory | + + + | Blood | [facility], [place] [address] | | | [place] [address] | + + + + + | Narrative | + + | Reference range change effective 12/11/16. | + + LDH TOTAL, PLASMA (08/07/2017 11:57 PM)Only the most recent of 26 results within the time kathleen gonzalez is included. + +---------+ + | Component | Value | Ref Range | + +---------+ + | LD TOTAL, PLASMA | 151 | <=250 U/L | + +---------+ + | LD CMNT | No Hemo | | + +---------+ + + + + | Specimen | Performing Laboratory | + + + | Blood | [facility], [address] [address] [place] [address] | | | [place] [address] | + + + TRANSFUSE RED CELLS, LEUKOREDUCED (08/07/2017 4:41 AM)Only the most recent of 32 results w ithin the time period is included.ANTIBODY SCREEN (08/07/2017 12:06 AM)Only the most recent of 10 results within the time period is included. + + + + | Component | Value | Ref Range | + + + + | Antibody Screen | Negative | | + + + + + + + | Specimen | Performing Laboratory | + + + | Blood | [facility], TRANSFUSION MEDICINE [address] [place] [address] | | | [place] [address] | + + + TYPE AND SCREEN (08/07/2017 12:06 AM)Only the most recent of 10 results within the time per iod is included. + + + | Specimen | Performing Laboratory | + + + | Blood | | + + + + + | Narrative | + + | The following orders were created for panel order TYPE AND SCREEN. | | Procedure | | Abnormality Status | | --------- | | ------ ABO & RH | | TYPE[[id number]] F | | inal result ANTIBODY | | SCREEN[[id number]] Fin | | al result Please view results for these tests on the | | individual orders. | + + ABO & RH TYPE (08/07/2017 12:06 AM)Only the most recent of 10 results within the time o d is included. + + + + | Component | Value | Ref Range | + + + + | ABO Group | O | | + + + + | Rh Type | Positive | | + + + + + + + | Specimen | Performing Laboratory | + + + | Blood | [facility], TRANSFUSION MEDICINE [address] [place] [address] | | | [place] [address] | + + + PRODUCT - RED CELLS LEUKOREDUCED (08/07/2017 12:04 AM)Only the most recent of 16 results wi thin the time period is included. + + + + | Component | Value | Ref Range | + + + + | PRODUCT DESCRIPTION | -1 RED BLOOD CELLS ADENINE-SALINE ADDED | | | | LEUKOCYT | | + + + + | PRODUCT UNIT # | [id number] | | + + + + | UNIT ABO | O | | + + + + | UNIT RH | POS | | + + + + | STATUS OF UNIT | Presumed Transfused | | + + + + | EXPIRATION DATE | [id number] | | + + + + | BLOOD TYPE BARCODE | 5100 | | + + + + | BLOOD PRODUCT CODE | [id number] | | + + + + + + + | Specimen | Performing Laboratory | + + + | | [facility] LABORATORY SERVICES, TRANSFUSION MEDICINE [address] [facility] | | | [place] [address] | + + + TRANSFUSE PLATELET PHERESIS, LEUKOREDUCED (08/05/2017 7:05 AM)Only the most recent of 34 r esults within the time period is included.POTASSIUM, PLASMA (08/05/2017 6:55 AM)Only the mo st recent of 5 results within the time period is included. + +---------+ + | Component | Value | Ref Range | + +---------+ + | POTASSIUM, PLASMA | 3.7 | 3.4 - 5.0 mmol/L | | (LAB) | | | + +---------+ + | POTASSIUM CMNT | No Hemo | | + +---------+ + + + + | Specimen | Performing Laboratory | + + + | Blood | [facility]ORATORY [facility], [facility] [place] [address] | | | [place] [address] | + + + + + | Narrative | + + | For hypokalemia and potassium replacement | + + PRODUCT - PLATELET PHERESIS LEUKOREDUCED (08/05/2017 1:04 AM)Only the most recent of 18 re sults within the time period is included. + + + + | Component | Value | Ref Range | + + + + | PRODUCT DESCRIPTION | PLATELETS PHERESIS, LEUKOCYTE REDUCED, | | | | IRRADIATED | | + + + + | PRODUCT UNIT # | [id number] | | + + + + | UNIT ABO | O | | + + + + | UNIT RH | NEG | | + + + + | STATUS OF UNIT | Presumed Transfused | | + + + + | EXPIRATION DATE | [id number] | | + + + + | BLOOD TYPE BARCODE | | | + + + + | BLOOD PRODUCT CODE | [id number] | | + + + + + + + | Specimen | Performing Laboratory | + + + | | [facility] LABORATORY SERVICES, TRANSFUSION MEDICINE [address] [place] [address] | | | [place] [address] | + + + VRE (FRANCISCO) BY PCR (08/04/2017 11:30 PM)Only the most recent of 6 results within the time mayda garcia is included. + + + + | Component | Value | Ref Range | + + + + | VRE BY PCR | Negative for van A gene | Negative for van A | | | | gene | + + + + + + + | Specimen | Performing Laboratory | + + + | Swab - Rectum | [facility] LABORATORY SERVICES, CORE [address] [place] [address] | | | [place] [address] | + + + PROCEDURE NOTE (08/01/2017 11:44 PM)BIOPSY AND ASPIRATION OF BONE MARROW (08/01/2017 5:45 PM) + + | Narrative | + + | Ellis Bone PA-C,NAOMY 08/01/2017 5:47 PM 06/27/2017 Procedure Note | | PCP: Saurav De Los Santos NP Procedure: Bone marrow aspirate and biopsy w/medications for | | anxiolysis Equipment Description: [employer] Lead Former Serial ID: [id number] | | Indications: 51 y.o. 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 The first aspirate was noted to have spicules and was submitted | | for morphology studies. A second aspirate was obtained in a heparinized syringe | | and submitted for FISH as per previous abnormalities, flow cytometry and | | cytogenetics. A total of 15 mL of bone marrow was aspirated. 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 A core biopsy measuring | | [...] the next 24 to 48 hours. ELLIS BONE PA-C,NAOMY [facility] [address] | | [facility] Mailcode: Kpv[address] [place] [address] [phone] | + + FLT3 ITD, BONE MARROW (08/01/2017 [...] | | | | completion of the RATI clinical trial | | | | (CALGB 25510) has led to the FDA approval | | | | in July 2016 of the multitargeted kinase | | | | inhibitor midostaurin for the treatment of | | | | adult patients with newly diagnosed AML | | | | harboring either the FLT3-ITD or FLT3-TKD | | | | mutations (Shade Prado, Blood, 2017, | | | | 129:9006-6710). The quantitative reporting | | | | [...] (not adverse risk) | | | | (Doscott et al., Blood, 2017, 129:424-447). | | [...] | | | characteristics determined by the [facility] | | | | [facility]. It has | | | [...] 1988 | | | | (CLIA). The [facility] | | | | Laboratories are fully licensed by the | | | | state [facility] under CLIA and are | | | | accredited by the [employer] of [employer] | | | | Pathologists (CAP). Laboratory | | | | Director: Edy Vang M.D., | | | | Ph.D | | + + + + + + + | Specimen | Performing Laboratory | + + + | Bone marrow | [facility] [employer] [facility] [address] [facility] | | | [address] [place] [address] | + + + COMPREHENSIVE HEME PANEL SEQ, BONE MARROW (08/01/2017 3:04 PM) + + + + | Component | Value | Ref Range | + + + + | COMPREHENSIVE HEME | See Interpretation. | | | PANEL SEQ | | | + + + + | INTERPRETATION | [facility] Comprehensive [facility]e Sequencing: | | | | Mutation Screening by Next-Generation | | | | Sequencing Specimen ID: [id number] | | | | Type: Bone Marrow [...] | | | | (Tier I) Gene: JIH8Vmyamug: | | | | p.N026iofszaIFHNCQFMQOAZWOEXkmrwqs allele | | | | frequency (VAF): 22%Variant allele ratio: | | | | 0.58 Variant ID: NAFLT3 ([id number]): | | | | c.1782_1783insGTGACCGGCTCCTCAGATAATGAGTACTT | | | | CTACGTTGATTTC; | | | | chr13:[id number]>TGAAATCAACGTAGAAGTACTCATTAT | | | | CTGAGGAGCCGGTCACLast Observed: 04/04/2017; | | | | Allele frequency: 0%03/03/2017; Allele | | | | frequency: 75%03/14/2016; Allele frequency: | | | | 0%02/15/2016; Allele frequency: 0% Gene: | | | | EQTL3UNccbaxk: p.U918JPmxfgmt allele | | | | frequency (VAF): 16%Variant ID: | | | | [id number]; [id number], [id number] | | | | (RECR41592.1):c.2644C>T; | | | | chr2:64896934O>ALast Observed: 04/04/2017; | | | | Allele frequency: 19%03/03/2017; Allele | | | | frequency: 46%03/14/2016; Allele frequency: | | | | 14%02/15/2016; Allele frequency: 45% Gene: | | | | RMA8Ujlfmrw: p.W288fs*12Variant allele | | | | frequency (VAF): 14%Variant ID: | | | | [id number]; [id number] | | | | (BKBE4729.1):c.859_860insTCTG; | | | | chr5:819616677G>CTCTGLast Observed: | | | | 04/04/2017; Allele frequency: 0%03/03/2017; | | | | Allele frequency: 44%03/14/2016; Allele | | | | frequency: 0%02/15/2016; Allele frequency: | | | | 46% Variant(s) of Potential Clinical | | | | Significance (Tier II) Gene: KG4Zowzuks: | | | | p.V362fs*69Variant allele frequency (VAF): | | | | 12%Variant ID: [id number] | | | | (NCGC48811.1):c.1083_1088TGTACG>GA; | | | | chr11:[id number]>CTCLast Observed: | | | | 04/04/2017; Allele [...] | | | | (Saul, Blood 116(5):788-92, 2010; Gilda, | | | | Blood 115:72490, 2010). No targeted therapy | | | | [...] | | | | | | | genes:MVX5EYLCRASPDPZBIWT0LSYC1DAQSL0KIY6AS | | | | RW3KIA29RCJSUU9ZOFG5SSQ9EWB4XFCAUZGGTPJNM17 | | | | JYNME2GKTVD8UEYQIUAV2YJOZ4WMDL04 | | | | Chromatin-modifying | | | | genes:VDBQ5QKTSADLB766ZJQ7GNI8LJNYELFE30 | | | | DNA methylation-associated | | | | genes:RBXF2WFPY1GYI2SJK4 Window Glass Installer | | | | factors:PDWFDLT7PPUVOYMKLCEWALU3OEHA8DGKG4S | | | | FLR7GV2WNJU6UCJ9IVIF0PAFSCFQ6UKXM3ZQOT2URP8 | | | | Spliceosome-complex | | | | genes:ZRBV4AF9E8W4NT9IWQI6 Cohesion-complex | | | | genes:QQN6LHCH3ABCE3UJA83 Tumor suppressor | | | | genes:OO48YI8CFU1 and | | | | others:VUZ6OFLV7OLOV24UD77TDQH5KOIGO4UEOHNZ | | | | WKN3TAOAEI6WJKJXX61SHGBN4 All the coding | | | | exons and the canonical splice sites of | | | | these genes, except CARD11, are sequenced. | | | | Selected coding exons (NM_032415.4:3, 15, | | | | 21) are [...] multiplexed PCR (customized | | | | GridCraft targeted DNA panel with molecular | | | | barcodes) and sequencing on an Illumina | | | | platform (Emergent Discovery). Sequencing data is | | | | [...] classification: Blood. 2016; | | | | 127(20):5990-808. 7.Catalogue Of Somatic | | | | Mutations In Cancer: | | | | http://cancer.julia.ac.uk/cosmic8.ClinVar: | | | | | | | | https://www.ncbi.nlm.nih.gov/clinvar/9.SHIRLEY- | | | | Clinical Knowledgebase (CKB): | | | | https://T[employer] Developmentb.Biotix.org/10.[facility]: | | | | https://ChickRxicdb.org/home | | + + + + | DISCLAIMER | This test was developed and its performance | | | | characteristics determined by the [facility] | | | | [employer] (roll.to). It has | | | | not [...] 1988 | | | | (CLIA). The [facility] | | | | Laboratories are fully licensed by the | | | | state [facility] under CLIA and are | | | | accredited by the [employer] of [employer] | | | | Pathologists (CAP). Laboratory | | | | Director: Edy Vang M.D., | | | | Ph.D | | + + + + + + + | Specimen | Performing Laboratory | + + + | Bone marrow | [facility] [address] | | [address] [place] [address] | + + + GENETRAILS COMPREHENSIVE HEME [...] | | ------ COMPREHENSIVE | | HEME PANEL...[[id number]] Final | | result FLT3 ITD, BONE | | MARROW[[id number]] Final | | result Please view results for these tests on the | | individual orders. | + + LESS COMMON INDIVIDUAL FISH PROBES, BONE MARROW/CORE (08/01/2017 3:04 PM) + + + + | Component | Value | Ref Range | + + + + | PREVIOUS | Perez 5q EGR1 (5q31) (SO) / D5S23, P0P395 | | | ABNORMALITIES PROBE | (5p15.2) () | | | NAME ONE | | | + + + + | CELLS SCORED PROBE | 200 | | | ONE | | | + + + + + + + | Specimen | Performing Laboratory | + + + | Bone marrow | [facility] [address] | | | [address] [place] [address] | + + + AML FISH PANEL, BONE MARROW/CORE (08/01/2017 3:04 PM) + +--------+ + | Component | Value | Ref Range | + +--------+ + | AML FISH PANEL | Normal | | + +--------+ + | CS METASYSTEMS | 200 | | | L6S000 (7Q31) (SO) / | | | | CEP 7 (SG) | | | + +--------+ + | CS METASYSTEMS | 200 | | | PML(15Q22)(SO)/MAURA( | | | | 17Q21)(SG)T(15;17) | | | + +--------+ + | CS METASYSTEMS | 200 | | | BCR(22Q11.2)(SG)/ABL | | | | (9Q34)(SO)+ASS(9Q34) | | | + +--------+ + | CELLS SCORED PEREZ | 200 | | | CBFB INV(16) (16Q22) | | | | BREAK-APART | | | + +--------+ + | CELLS SCORED PEREZ | 200 | | | LYXA0C1 (8Q21.3) | | | | (SO) / RUNX1 (21Q22) | | | | (SG) T(8;21) | | | + +--------+ + | CELLS SCORED BIOCARE | 200 | | | MLL (11Q23) | | | | BREAK-APART | | | + +--------+ + | CELLS SCORED PEREZ | 200 | | | MECOM (3Q26.2) (SO) | | | | / RPN1 (3Q21.3) (SG) | | | | DUAL FUSION | | | + +--------+ + | CS METASYSTEMS | 200 | | | DEK(6P22)(SG)/RSG787 | | | | (9Q34)(SO)T(6;9)DC,D | | | + +--------+ + + + + | Specimen | Performing Laboratory | + + + | Bone marrow | [facility] [employer] [facility] [address] | | [address] [place] [address] | + + + CYTOGENETICS BONE MARROW CHROMOSOME ANALYSIS [...] | | was made by the clinical endband sizer. | | | | | | | [...] | | | characteristics determined by the [facility] | | | | [facility]. [...] 1988 | | | | (CLIA). The [facility] [employer] | | | | Laboratories are fully licensed by the | | | | [facility] under CLIA and are | | | | accredited by the [employer] of [employer] | | | | Pathologists (CAP). Laboratory | | | | Director: Edy Vang M.D., | | | | Ph.D Electronically reviewed and signed | | | | by:Kar Mckeon, PhD, [facility]Clinical | | | | Make Ready Mechanic Clinical Molecular | | | | Geneticist08/12/2017 at 8:15 AM Reviewed | | | | and electronically signed by OLIVIA | | | | MD RENAY,[facility]08/12/2017 2:19 PM | | + + + + + + + | Specimen | Performing Laboratory | + + + | Bone marrow | [facility] [address] | | | [address] [place] [address] | + + + LEUKEMIA/LYMPHOMA MARKERS - [...] discussed with | | | | Leatha Gilmore NP, at 5pm on 08/02/2017. | | [...] characteristics | | | | determined by [employer]. It has | | | | not [...] + + + | Bone marrow | [facility] DEPARTMENT OF PATHOLOGY [address] [facility] | | | [place] [address] | + + + BRONCHOSCOPY WITH BRONCHOALVEOLAR LAVAGE (07/31/2017 8:31 PM) + + | Narrative | + + | Nidhi Fowler MD 07/31/2017 8:35 PM Brief note. [...] as fungal & bacterial PCR - see [facility] for pending labs. | | Cytology done [...] change MAY just be post bronch fever Nidhi Fowler MD | + + X-RAY PORTABLE CHEST 1 VIEW (07/31/2017 8:20 AM)Only the most recent of 2 results within t he time period is included. + + + | Specimen | Performing Laboratory | + + + | | [facility] RADIOLOGY VOICE RECOGNITION | + + + + + | Narrative | + + | EXAM: OH CHEST 1 VIEW 07/31/17 07:58:13 HISTORY: Post [...] Interface - 07/31/2017 9:02 AM PDT EXAM: OH CHEST 1 | | VIEW 04/04/18 07:58:13 HISTORY: Post transbronchial biopsyCOMPARISON: CT chest [...] report as now presented. | + + RESPIRATORY PATHOGEN PANEL PCR (07/31/2017 7:47 AM)Only the most recent of 3 results withi n the time period is included. + + + + | Component | [...] | + + + | Bronchoalveolar | [facility] LABORATORY SERVICES, CORE [address] | | lavage fluid - | [place] [address] | | Broncheoalveolar | | | Lavage [...] performed by : | | | | [facility] | | | | [address] [facility] | | | | [place] [address] | | + + + + + + + | Specimen | Performing Laboratory | + + + | Bronchoalveolar | [facility] | | lavage fluid - Lung | | + + + + + | Narrative | + + | See scanned report for Technical Results and further Interpretation and Comments. | | | | | | | + + LEGIONELLA SPECIES BY QUALITATIVE PCR [...] characteristics determined by | | | | [employer]. See Compliance | | | | Statement B: Tag'By/CSPerformed by | | | | [employer],[address] [facility],[place] | | | | [address] ccz.Tag'By, Kelton | | | | MD Darren, Lab. Director | | + + + + | SOURCE, INF SER/PCR | BAL | | + + + + + + + | Specimen | Performing Laboratory | + + + | Bronchoalveolar | [facility] [address] [facility] | | lavage fluid - Lung | [place] [address] | + + + LEUKEMIA/LYMPHOMA MARKER - CSF/BODY FLUID (07/31/2017 7:47 AM) + + + + | Component | Value | Ref Range | + + + + | Final Pathologic | Bronchoalveolar lavage, flow cytometric | | | Diagnosis | analysis: - Negative for myeloblasts Case | | | | seen by:Frank De Guzman MD | | | | [...] non-specific staining. | | | | Antibodies [id number] CD14 CD16 CD33 CD34 | | | [...] characteristics | | | | determined by [employer]. It has | | | | not [...] | + + + | Bronchoalveolar | [facility] DEPARTMENT OF PATHOLOGY [address] | | lavage fluid - | [place] [address] | | Broncheoalveolar | | | Lavage | | + + + NON THERAPEUTIC ASSISTANT CYTOLOGY (07/31/2017 7:47 AM) + + + [...] GMS Case seen | | | | by:SHERRIE Marvin(ASCP) - | | | | CytotechnologistEmily Richard MD | | | | | | | | Cytopathology Julio César Jorgensen MD | | | | | [...] + + | Fluid - Lung | [facility] DEPARTMENT OF PATHOLOGY [address] [facility] | | | [place] [address] | + + + CULTURE, BRONCHIAL LAVAGE (07/31/2017 7:46 AM) + + + | Specimen | Performing Laboratory | + + + | Bronchoalveolar | [facility] [place] [address] [place], [place] | | lavage fluid - Lung | [address] | + + + + + | Narrative | + + | Culture Report: No growth Gram Stain: No polymorphonuclear cells Rare | | squamous epithelial cells No organisms seen | + + CULTURE, FUNGAL EXCEPT BLOOD, SKIN, HAIR, NAIL (07/31/2017 7:46 AM)Only the most recent of 2 results within the time period is included. + + + | Specimen | Performing Laboratory | + + + | Bronchoalveolar | [facility] [place] [address] [place], [place] | | lavage fluid - Lung | [address] | + + + + + | Narrative | + + | Culture Report: No fungus isolated at 3 weeks. | + + NOCARDIA CULTURE, RULE OUT (07/31/2017 7:46 AM) + + + | Specimen | Performing Laboratory | + + + | Bronchoalveolar | [facility] [place] [address] [place], [place] | | lavage fluid - Lung | [address] | + + + + + | Narrative | + + | Culture Report: Nocardia not isolated | + + ASPERGILLUS GALACTOMANNAN ANTIGEN, BAL [...] | | | | radiographic imaging).Performed by [facility]r | | | | [employer],[address] [place] [address],[place] [address] | | | | [phone].Tag'By, Kelton Banks, | | | | Olive ANTUNEZ. Director | | + + + + + + + | Specimen | Performing Laboratory | + + + | Bronchoalveolar | [address] | | lavage fluid - Lung | [place] [address] | + + + + + | Narrative | + + | Test performed by [facility] [address] [place] [address] | | [phone] www.Tag'By | | | | | + + FLEXIBLE BRONCHOSCOPY (07/31/2017 7:32 AM) + + + | Specimen | Performing Laboratory | + + + | | [facility] | + + + + + | Narrative | + + | Procedure Date: 07/31/2017 Patient Name: Rhea Hutchison Order #: [id number] | | Date of : 1965 CSN: [id number] Admit Type: Inpatient Room: OR | | Procedure: Bronchoscopy | | Indications: Diagnostic bronchoalveolar lavage, Bilateral | | infiltrate, Immune compromised with | | pneumonia, Abnormal CT scan of chest | | Providers: NIDHI FOWLER MD, ANTONINO YBARRA MD (Fellow), | | KAR DELGADO MD, SHERRY JOHN, [facility] | | Referring MD: ANTONINO YBARRA [...] and soft palate visualized). | | - [place] Protocol: | | - Pre-procedure Verification: Prior [...] by | | the physician and the apprentice instrument technician in the | | procedure room [...] continuously. The Olympus | | BF-Q190 S/N [id number] bronchoscope was | | introduced through the [...] | | during the entire procedure, including non-cj portions. Nidhi Fowler MD | | NIDHI FOWLER MD 07/31/2017 12:31:52 PM Number of Addenda: 0 Note Initiated On: | | 07/31/2017 7:32 AM Estimated Blood Loss: Estimated blood loss: none. | + + CULTURE, SPUTUM CYSTIC FIBROSIS (07/31/2017 12:13 AM) + + + | Specimen | Performing Laboratory | + + + | Sputum - Lung | [facility] [place] [address] [place] [facility] [place] | | | [address] | + + + + + | Narrative | + + | Culture Report: 2+ Oral Lilia | + + ANESTHESIA/SEDATION (07/31/2017)ANESTHESIA/SEDATION (07/31/2017)ASPERGILLUS GALACTOMANNAN A NTIGEN, SERUM (07/30/2017 12:13 PM) + + + [...] | + + + | Blood | [facility] LABORATORY SERVICES, SPECIAL IMM + COAG [address] [facility] | | | [place] [address] | + + + + + | [...] | recommended. | | | + + POSACONAZOLE, QUANT (07/30/2017 9:15 AM) [...] | | | | characteristics determined by [facility] | | | | [facility]. See Compliance Statement B: | | | | Tag'By/CSPerformed by [facility] | | | | [facility],[address] [place] [address] | | | | [phone].Tag'By, Kelton Banks, | | | | , Lab. Director | | | |www.Tag'By, Kelton Banks MD, Lab. Director | | + + + + + + + | Specimen | Performing Laboratory | + + + | Blood | [facility] [address] [facility] | | | [place] [address] | + + + CT CHEST WO CONTRAST (07/29/2017 [...] considered. The results were discussed with Shayna Gardiner at the time of dictation.I have personally [...] + X-RAY CHEST 2 VIEW (07/29/2017 3:34 PM)Only the most recent of 2 results within the time p carlos is included. + + + | Specimen | Performing Laboratory | + + + | | [facility] RADIOLOGY VOICE RECOGNITION | + + + [...] report as now presented. | + + PICC LINE (07/25/2017 10:59 AM) + + | Narrative | + + | Laine Patel RN 07/25/2017 11:02 AM PICC LINE Performed by: ANALI, | | LAINE Authorized by: NAGELIA HERNANDEZ PICC/Midline Insertion Procedure Note | | Indications:Chemo Procedure location: Unit:13k Room: 20 Providers: Attending name: | | Attending physically present: No PICC Nurse name: Laine Patel, RNAssisted by | | Pre-Procedure Consent: written consent obtained Consent given by: Patient | | Patient identity confirmed per protocol: Yes Team Pause: Immediatly prior to the | | procedure a pause per protocol was called. A pause verifies correct patient, | | procedure, equipment, medical support assistant and site/side marked as required. CLABSI | [...] Arm area Cephalic vein. Catheter lot number: [id number] with a length of 55 cm | [...] Estimated blood loss: <10mL | + + VAT: PICC INSERTION W/US (07/25/2017 9:08 AM) + + | Narrative | + + | See procedure note. | + + CBC (HEMOGRAM) ONLY (07/23/2017 8:20 PM)Only the most recent of 8 results within the time period is included. + + + + | Component | [...] | + + + | Blood | [facility] LABORATORY SERVICES, CORE [address] [place] [address] | | | [place] [address] | + + + CBC ONLY (07/23/2017 8:20 PM)Only the most recent of 8 results within the time period is i ncluded. + + + | Specimen | Performing Laboratory | + + + | Blood | | + + + + + | Narrative | + + | The following orders were created for panel order CBC ONLY. | | Procedure | | Abnormality Status | | --------- | | ------ CBC (HEMOGRAM) | | ONLY[[id number]] Abnormal Final | | result Please view results for these tests on the | | individual orders. | + + INR (07/22/2017 10:50 PM)Only the most recent of 16 results within the time period is inclu ded. + +-------+ + | Component | Value | Ref Range | + +-------+ + | INR | 1.13 | 0.90 - 1.20 INR | + +-------+ + + + + | Specimen | Performing Laboratory | + + + | Blood | [facility] LABORATORY SERVICES, CORE [address] [facility] | | | [facility] [address] | + + + + + | Narrative | + + | INR Therapeutic ranges for full anticoagulation: INR for Venous | | Thromboembolism (2.0 - 3.0) INR INR for most patients with | | mech. valves (2.5 - 3.5) INR | + + URINE, MICROSCOPIC EXAM (07/20/2017 8:00 PM)Only the most recent of 2 results within the period is included. + +---------+ + | Component | Value [...] | + + + | Urine | [facility] LABORATORY SERVICES, CORE [address] [place] [address] | | | [place] [address] | + + + URINE SCREEN FOR CULTURE (07/20/2017 8:00 PM)Only the most recent of 2 results within the time period is included. + + + + | Component | Value | Ref Range | + + + + | CULT, URINE SCREEN | Negative | Negative | + + + + + + + | Specimen | Performing Laboratory | + + + | Urine | [facility], CORE [address] [facility] | | | [place], [place] [address] | + + + + + | Narrative | + + | Culture Screen Negative. Culture not indicated. | + + BLOOD CULTURE WORKUP (07/20/2017 7:35 PM) + + + + | Component | Value | Ref Range | + + + + | CULTURE RESULT | Pseudomonas aeruginosa (A) | | + + + + + + + | Specimen | Performing Laboratory | + + + | Blood - Blue port | [facility] [place] [address] [place], [place] | | lumen | [address] | + + + + + | [...] | | + + + + + FIBRINOGEN (07/17/2017 11:47 PM) + +---------+ + | Component | Value | Ref Range | + +---------+ + | FIBRINOGEN LEVEL | 478 (H) | 200 - 450 mg/dL | + +---------+ + + + + | Specimen | Performing Laboratory | + + + | Blood | [facility] LABORATORY SERVICES, CORE [address] | | | [place] [address] | + + + APTT (ACT. PART. THROMBO TIME) (07/17/2017 11:47 PM) + + + + | Component | Value | Ref Range | + + + + | APTT | 37.5 (H) | 26.0 - 36.0 seconds | + + + + + + + | Specimen | Performing Laboratory | + + + | Blood | [facility] LABORATORY SERVICES, CORE [address] [place] [address] | | | [place] [address] | + + + + + | Narrative | + + | APTT Therapeutic Range: (75 - 120) sec | | Heparin levels of 0.35 - 0.7 U/mL | + + CAPILLARY BLOOD GLUCOSE (NO CHG), POC (07/08/2017 2:32 PM)Only the most recent of 12 resul ts within the time period is included. + +---------+ + | Component | Value | Ref Range | + +---------+ + | BLOOD GLUCOSE, POC | 112 (H) | 70 - 99 mg/dL | + +---------+ + + + + | Specimen | Performing Laboratory | + + + | | [facility], POINT OF CARE TESTS [address] | | | [place] [address] | + + + RBC MORPHOLOGY (07/04/2017 12:40 AM)Only the most recent of 6 results within the time perio d is included. + + + + | Component | Value | Ref Range | + + + + | ANISOCYTOSIS | 2+(25-100cells/HPF) | | + + + + | MICROCYTOSIS | 2+(25-100cells/HPF) | | + + + + + + + | Specimen | Performing Laboratory | + + + | Blood | [facility] LABORATORY SERVICES, CORE [address] [facility] | | | [place] [address] | + + + MANUAL DIFFERENTIAL (07/04/2017 12:40 AM)Only the most recent of 7 results within the time period is included. + + + + | Component | [...] | + + + | Blood | [facility] LABORATORY [facility], CORE [address] [facility] | | | [place] [address] | + + + + + | [...] in a manual diff. | + + BASIC METABOLIC SET (NA, K, CL, TCO2, BUN, CR, GLU, CA) (07/03/2017 5:03 AM)Only the most recent of 8 results within the time period is included. + + + + | Component | [...] | >60 | >60 mL/min | | YEMENI | | | + + + + | EGFR NON | >60 | >60 mL/min | | -YEMENI | | | + + + + [...] | + + + | Blood | [facility], [address] [facility] | | | [place] [address] | + + + + + | [...] | + + D-DIMER, (PE OR DIC) (07/02/2017 11:37 PM)Only the most recent of 4 results within the time period is included. + + + + | Component | Value | Ref Range | + + + + | D-DIMER (PE OR DIC) | >4.00 (H) | <0.50 ug/mLFEU | + + + + + + + | Specimen | Performing Laboratory | + + + | Blood | [facility], [address] [facility] [address] [address] | | | [place] [address] | + + + + + | Narrative | + + | D-Dimer Interpretation: <0.5 PE very unlikely 0.50-4.0 Seen in | | ill patients but not diagnostic of thrombosis. >4.0 Compatible with DIC but | | not diagnostic. If clinically indicated request titration of | | d-dimer. Values >8.0 are strongly suggestive of DIC. | + + CULTURE, URINE CLAYTON (07/01/2017 4:13 PM) + + + + | Component | Value | Ref Range | + + + + | URINE CULTURE [facility] | No growth (<1000 cfu/mL) after 24 hours | | + + + + + + + | Specimen | Performing Laboratory | + + + | Urine | [facility] LABORATORY SERVICES, CORE [address] [facility] | | | [place] [address] | + + + UA, DIPSTICK ONLY (07/01/2017 4:13 PM) + + + [...] + | SPECIFIC GRAVITY | 1.021Comment: Specific [employer] performed by | 1.005 - 1.030 | | | refractometry | | + + + + + + + | Specimen | Performing Laboratory | + + + | Urine | [facility] LABORATORY SERVICES, CORE [address] [facility] | | | [place] [address] | + + + FLT3 ITD, BLOOD [...] clinical trial | | | | (CALGB 85848) has led to the FDA approval | | | | in July 2016 of the multitargeted kinase | | | | inhibitor midostaurin for the treatment of | | | | adult patients with newly diagnosed AML | | | | harboring either the FLT3-ITD or FLT3-TKD | | | | mutations (Shade Prado, Blood, 2017, | | | | 129:5930-8586). The quantitative reporting | | | | [...] (not adverse risk) | | | | (Doscott et al., Blood, 2017, 129:424-447). | | [...] | | | characteristics determined by the [facility] | | | | [facility]. It has | | | [...] 1988 | | | | (CLIA). The [facility] | | | | Laboratories are fully licensed by the | | | | state [facility] under CLIA and are | | | | accredited by the [employer] of [employer] | | | | Pathologists (CAP). Laboratory | | | | Director: Edy Vang M.D., | | | | Ph.D Reviewed and electronically signed | | | | by DEANGELO JOLLY MD,PhD3 12:00 | | | | PM | | + + + + + + + | Specimen | Performing Laboratory | + + + | Blood | [facility] [place] [id number] [address] [facility] | | | [address] [place] [address] | + + + COMPREHENSIVE HEME PANEL [...] Sequencing Specimen ID: | | | | [id number] Type: BloodCollection | | | | Date: [...] | | bpVariant: | | | | p.M493zrokgsQYQLQVJWQTLCCGLSdjztha allele | | | | frequency (VAF): 71%Allelic ratio = 23FLT3 | | | | (JDMF38271.1):c.1782_1783insGTGACCGGCTCCTCA | | | | GATAATGAGTACTTCTACGTTGATTTC; | | | | chr13:[id number]>TGAAATCAACGTAGAAGTACTCATTAT | | | | CTGAGGAGCCGGTCACLast Observed: 04/04/2017; [...] FLT3-TKD mutation | | | | (Shade Esparzais, Blood, 2017, 129:8542-4414). | | | | The FLT3 kinase is also specific target of | | | | several other tyrosine kinase inhibitors | | | | that may be recruiting patients for | | | | clinical trials (including quizartinib, | | | | lestaurtinib, midostaurin, sorefenib, | | | | sunitinib, ponatinib, etc Gene: | | | | JCN6Qgwiplk: p.W288fs*12Variant allele | | | | frequency (VAF): 51%Variant ID: | | | | [id number]; [id number] | | | | (VRIA4577.1):c.859_860insTCTG; | | | | chr5:184037769T>CTCTGLast Observed: | | | | 04/04/2017; Allele frequency: 0%03/03/2017; | | | | Allele frequency: 44%03/14/2016; Allele | | | | frequency: 0%02/15/2016; Allele frequency: | | | | 46% Gene: RAAV6AXoeclga: p.W346YYwqhvva | | | | allele frequency (VAF): 48%Variant ID: | | | | [id number]; [id number], [id number] | | | | (TNOS75351.1):c.2644C>T; | | | | chr2:68539543S>ALast Observed: 04/04/2017; | | | | Allele frequency: 19%03/03/2017; Allele | | | | frequency: 46%03/14/2016; Allele frequency: | | | | 14%02/15/2016; Allele frequency: 45% | | | | Variant(s) of Potential Clinical | | | | Significance (Tier II) Gene: AY3Ugzdmoy: | | | | p.V362fs*69 (not detected in prior | | | | samples)Variant allele frequency (VAF): | | | | 41%Variant ID: WT1 | | | | (PKGD75719.1):c.1083_1088TGTACG>GA; | | | | chr11:87514651TMYBKCM>CTC The WT1 gene | | | | encodes a zinc-finger medical assisting instructor factor | | | | that plays [...] | | | | relatively poor prognosis (Saul, Blood | | | | 116(5):788-92, 2010; Gilda, Blood 115:95753, | | | | 2009). Case reviewed by:Dora | | | | Ranjit/Molecular TechnologistRichlisbeth | | | | MD Ruperto, PhD/Molecular [...] | | | | | | | genes:JGN2YIKQNISRGFLVSAC0ODVX4UJUCV7XEJ6RS | | | | EI1JUX61SENXRT1GNFJ1IUW4FJD2IKBTSOHWZSRAH08 | | | | ERCEX6MQQZF3NLKMMBMZ3BQOD8ULJG48 | | | | Chromatin-modifying | | | | genes:LMQR6KQNHBQBG897QII0IKF0PJYDWIPN63 | | | | DNA methylation-associated | | | | genes:UTKE1CCOA0DEN2KBL0 Window Glass Installer | | | | factors:EWQXYYP7HVISXAVOTFURING2IBQP7NHZP5G | | | | ZJI7YE0YIOW0VZG1AVWJ4UDNVCZL7AIIH5WKGW7HSK9 | | | | Spliceosome-complex | | | | genes:VFLG6HK2U5C2GY8VHAH9 Cohesion-complex | | | | genes:HOQ6PBWE2UFHD0GIU35 Tumor suppressor | | | | genes:LZ38RW4GQZ1 and | | | | others:KKV1COWY7AAVF77FJ15SKMA4YEHHX0DVUJJX | | | | PWB1EZONWZ7PYATDR12KUVII6 All the coding | | | | [...] multiplexed PCR (customized | | | | [employer] targeted DNA panel with molecular | | | | barcodes) and sequencing on an Illumina | | | | platform (LnofHst092). Sequencing data is | | | | [...] classification: Blood. 2016; | | | | 127(20):6467-880. 7.Catalogue Of Somatic | | | | Mutations In Cancer: | | | | http://cancer.julia.ac.uk/cosmic8.ClinVar: | | | | | | | | https://www.ncbi.nlm.nih.gov/clinvar/9.[facility]IRLEY- | | | | Clinical Knowledgebase (CKB): | | | | https://ckb.shirley.org/10.[facility]: | | | | https://civicdb.org/home | | + + + + | DISCLAIMER | This test was developed and its performance | | | | characteristics determined by the [facility] | | | | [facility]. It has | | | [...] 1988 | | | | (CLIA). The [facility] | | | | Laboratories are fully licensed by the | | | | [facility] under CLIA and are | | | | accredited by the College of [employer] | | | | Pathologists (CAP). Laboratory | | | | Director: Edy Vang M.D., | | | | Ph.D Reviewed and electronically signed | | | | by DEANGELO JOLLY MD,PhD3/ 4:49 | | | | PM | | + + + + + + + | Specimen | Performing Laboratory | + + + | Blood | [facility] [employer] [address] | | | [address] [place] [address] | + + + LEUKEMIA/LYMPHOMA MARKER - [...] MANUAL DIFFERENTIAL | | | | Order: [id number] - Part of Panel Order | | | | [id number] Collected: 06/29/2017 23:01 | | | | [...] characteristics | | | | determined by [employer]. It has | | | | not [...] | + + + | Blood | [facility] DEPARTMENT OF PATHOLOGY [address] | | | [place] [address] | + + + TRANSTHORACIC ECHOCARDIOGRAM, ADULT (06/29/2017 3:49 [...] Laboratory | + + + | | [facility] DEPT OF CARDIOLOGY [address] [place] [address] | | | [place] [address] | + + + + + | Narrative | + + | [facility] Adult Echocardiography Laboratory | | [address] [place] [address] Ph: | | Pt Name: RHEA HUTCHISON Study | | Date/Time 06/29/2017 / 3:49:49 PM | | Most recent prior: 03/04/2017 Acc #: [id number] No. previous | | echos: 2 : 1965 51 years Heart Rate: 107 bpm | | Height: 62.0 in Blood Pressure: 140/77 mm/Hg | | Weight: 199.0 lb Gender: F | | BSA: 1.91 m2 Order ID: [id number] | | Thermoforming Machine Operator: Nathaniel BRANTLEY Referring Provider: Sarah Katz Patient [...] Patient history has been obtained from the [facility] Transthoracic | | Echocardiographic Report | | [...] values Report electronically | | signed by: [id number] Hector Khoury MD (06/29/2017, 6:21:10 PM) Final | + + + + | Procedure Note | + + | Interface, Ecg Results - 06/29/2017 6:21 PM [facility] | | [facility] Echocardiography Laboratory [address] [place] [address] | | [place], [place] [address] Pt Name: RHEA HUTCHISON | | Study Date/Time 06/29/2017 / 3:49:49 PMMRN: [id number] [facility] | | recent prior: 03/04/2017Acc #: [id number] No. 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 | + + 12 LEAD ECG (06/29/2017 12:52 [...] | + + + | | [facility] [address] [place] [address] | | | [place] [address] | + + + X-RAY PORTABLE CHEST TUBE OR CATH EVAL X-RAY (06/29/2017 8:20 AM) + + + | Specimen | Performing Laboratory | + + + | | [facility] VOICE RECOGNITION | + + + + + | Narrative | + + | EXAM: [place] CHEST TUBE OR CATH EVAL X-RAY 06/29/17 [...] Note | + + | Service Account, [employer] Res In Interface - 06/29/2017 11:21 AM PST EXAM: [place] CHEST | | TUBE OR CATH EVAL [...] report as now presented. | + + BILIRUBIN DIRECT (06/28/2017 10:30 PM) + +---------+ + | Component | Value | Ref Range | + +---------+ + | BILIRUBIN DIRECT | 0.1 | 0.0 - 0.3 mg/dL | + +---------+ + | BILI D CMNT | No Hemo | | + +---------+ + + + + | Specimen | Performing Laboratory | + + + | Blood | [facility] LABORATORY SERVICES, CORE [address] | | | [place] [address] | + + + BMR/MUD PANEL (06/03/2017 1:47 PM) + + + | Specimen | Performing Laboratory | + + + | Blood | | + + + + + | Narrative | + + | The following orders were created for panel order BMR/MUD PANEL. | | Procedure | | Abnormality Status | | --------- | | ------ LIT HLA-A HIGH | | RES[[id number]] Final | | result LIT HLA-B HIGH | | RES[[id number]] Final | | result LIT HLA-C HIGH | | RES[[id number]] Final | | result LIT HLA-DR HIGH | | RES[[id number]] Final | | result LIT HLA-DQ HIGH | | RES[[id number]] Final | | result LIT HLA-DRB 3,4,5 HIGH | | RES[[id number]] Final | | result Please view results for these tests on the | | individual orders. | + + LIT HLA-DP HIGH RES (06/03/2017 1:47 PM) + + + | Specimen | Performing Laboratory | + + + | Blood | [facility] - IMMUNOGENETICS/TRANSPLANT LABORATORY [address] [place] [address] [address] | | | [address] [place] [address] | + + + LIT HLA-DRB 3,4,5 HIGH RES (06/03/2017 1:47 PM) + + + + | Component | Value | Ref Range | + + + + | LABEL ONLY - LIT | Please see lab report for result. | | + + + + + + + | Specimen | Performing Laboratory | + + + | Blood | [facility] - IMMUNOGENETICS/TRANSPLANT LABORATORY [address] | | | [address] [place] [address] | + + + LIT HLA-DQ HIGH RES (06/03/2017 1:47 PM) + + + | Specimen | Performing Laboratory | + + + | Blood | [facility] - IMMUNOGENETICS/TRANSPLANT LABORATORY [address] | | | [address] [place] [address] | + + + LIT HLA-DR HIGH RES (06/03/2017 1:47 PM) + + + | Specimen | Performing Laboratory | + + + | Blood | [facility] - IMMUNOGENETICS/TRANSPLANT LABORATORY [address] | | | [address] [place] [address] | + + + LIT HLA-C HIGH RES (06/03/2017 1:47 PM) + + + | Specimen | Performing Laboratory | + + + | Blood | [facility] - [facility]ENETICS[facility]TRANSPLANT LABORATORY [address] [place] [address] , | | | [address] [place] [address] | + + + LIT HLA-B HIGH RES (06/03/2017 1:47 PM) + + + | Specimen | Performing Laboratory | + + + | Blood | [facility] - IMMUNOGENETICS/TRANSPLANT LABORATORY [address] | | | [address] [place] [address] | + + + LIT HLA-A HIGH RES (06/03/2017 1:47 PM) + + + + | Component | Value | Ref Range | + + + + | LABEL ONLY - LIT | Please see lab report for result. | | + + + + + + + | Specimen | Performing Laboratory | + + + | Blood | [facility] - IMMUNOGENETICS/TRANSPLANT LABORATORY [address] [facility] [address] , | | | [address] [address] | + + + from Last 3 Months
--- OUTSIDE RECORDS SUMMARY | ~2017-08-27 | XMS | Encounter Summary ---
Demographics + + + | Address | [address] | | | [place] [address] | + + + | Home Phone | | + + + | Preferred Language | Unknown | + + + | Marital Status | | + + + | Jehovah'S Witness Affiliation | NON | + + + | Race | White | + + + | Ethnic Group | Not or | + + + Author + + + | Author | [facility] | + + + | Organization | [facility] | + + + | Address [...] Team Providers + +------+ + | Care Sound Installation Worker Name | Role | Phone | + +------+ + | Saurav De Los Santos NP | PCP | | + +------+ + Encounter Details +--------+ + + + + | Date | Type | Department | Care Team | Description | +--------+ + + + + | 06/29/ | Procedure | [facility] [address] | | | | [address] | [address] | [address] | | | | | | Road Mailcode: | | | | | | [address] | | | | | | [place], | | | | | | [place] [address] | | | | | | [phone] | | | +--------+ + + + [...]
--- OUTSIDE RECORDS SUMMARY | ~2017-08-27 | XMS ---
Demographics + + + | Address | [address] | | | [address] | | | [place] [address] | + + + | Preferred Language | Unknown | + + + | Marital Status | Unknown | + + + | Amish Affiliation | Unknown | + + + | Race | Unknown | + + + | Ethnic Group | Unknown | + + + Author + + + | Author | [facility] | + + + | Organization | [facility] | + + + | Address | [address] | | | [place] [address] | + + + | Phone | | + + + Care Team Providers + + + + | Care Environmental Services Specialist Name | Role | Phone | + + + + Unavailable | Unavailable | + + + + PROBLEMS +---------+ + + +--------+ + + | Type | Condition | ICD9-CM | IAM17-UM | Onset | Condition | SNOMED | | | | Code | Code | Dates | Status | Code | +---------+ + + +--------+ + + | Problem | Acute | C92.00 | | | Active | 12698353 | | | myeloid | | | | | | | | leukemia | | | | | | +---------+ + + +--------+ + + | Problem | Weakness | | R53.1 | | Active | 38454843 | +---------+ + + +--------+ + + | Problem | Fall | | W19.XXXA | | Active | 1038606 | +---------+ + + +--------+ + + | Problem | SUICIDAL | V62.84 | | | Active | 0017126 | | | IDEATION | | | [...] | 575.10 | | | Active | 90969979 | | | | | | | | | | | cholecysti | | | | | | | | tis | | | | | | +---------+ + + +--------+ + + | Problem | Radiculopa | | M54.17 | | Active | 0312048 | | | thy, | | | | | | | | lumbosacra | | | | | | | | l region | | | | | | +---------+ + + +--------+ + + | Problem | Tobacco | V65.42 | | | Active | 757229780 | | | abuse | | | | | | | | counseling | | | | | | +---------+ + + +--------+ + + | Problem | 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 | | | | | | | | hip | | | | | | +---------+ + + +--------+ + + | Problem | Family | V16.0 | | | Active | 907056593 | | | history of | | [...] | | N39.3 | | Active | 76490139 | | | incontinen | | | | | | | | ce | | | | | | | | (female) | | | | | | | | (male) | | | | | | +---------+ + + +--------+ + + | Problem | Facet | M46.96 | | | Active | 950493624 | | | arthropath | | | | | | | | y, lumbar | | | | | | +---------+ + + +--------+ + + | Problem | Radiculopa | | M54.12 | | Active | 44412599 | | | thy, | | | | | | | | cervical | | | | | | | | region | | | | | | +---------+ + + +--------+ + + | Problem | At high | Z91.81 | | | Active | 513824967 | | | risk for | | | | | | | | falls | | | | | | +---------+ + + +--------+ + + | Problem | Mobility | Z74.09 | | | Active | 41545093 | | | impaired | | | | | | +---------+ + + +--------+ + + | Problem | 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 | | | | | | +---------+ + + +--------+ + + | Problem | Lump of | 611.72 | | | Active | 64956589 | | | left | | | | | | | | breast | | | | | | +---------+ + + +--------+ + + | Problem | History of | V12.29 | | | Active | 5611763952 | | | goiter | | | | | [address] | +---------+ + + +--------+ + + | Problem | Obesity | | E66.9 | | Active | 506939144 | +---------+ + + +--------+ + + | Problem | Tobacco | | Z72.0 | | Active | 399279339 | | | use | | | | | | +---------+ + + +--------+ + + | Problem | Status | Z96.651 | | | Active | 7304871625 | | | post total | | | | | 02 | | | knee | | | | | | | | replacemen | | | | | | | | t, right | | | | | | +---------+ + + +--------+ + + | Problem | Elevated | | D72.829 | | Active | 492671114 | | | white | | | [...] | F33.9 | | | Active | 08486910 | | | depressive | | | [...] | G89.29 | | | Active | 50805325 | | | chronic | | | | | | | | pain | | | | | | +---------+ + + +--------+ + + | Problem | Radiculopa | | M54.16 | | Active | 409337465 | | | thy, | | | | | | | | lumbar | | | | | | | | region | | | | | | +---------+ + + +--------+ + + | Problem | COPD | | J44.9 | | Active | 80643778 | | | (chronic | | | | | | | | obstructiv | | | | | | | | e | | | | | | | | pulmonary | | | | | | | | disease) | | | | | | +---------+ + + +--------+ + + | Problem | Hypothyroi | | E03.9 | | Active | 74776775 | | | dism | | | | | | +---------+ + + +--------+ + + | Problem | Stress | N39.3 | | | Active | 28887990 | | | incontinen | | | | | | | | ce | | | | | | +---------+ + + +--------+ + + | Problem | Pain in | | M25.551 | | Active | 204638303 | | | right hip | | | | | | +---------+ + + +--------+ + + | Problem | Degenerati | M47.816 | | | Active | 81600288 | | | ve | | | | | | | | arthritis | | | | | | | | of lumbar | | | | | | | | spine | | | | | | +---------+ + + +--------+ + + ALLERGIES Unknown Allergies SOCIAL HISTORY No smoking Hx information available PLAN OF CARE VITAL SIGNS MEDICATIONS + + + + + + [...] | Support | | Full | | 02 Feb, | 2 Feb, | 99 | [...] + + +--------+ RESULTS No Results PROCEDURES No Known procedures IMMUNIZATIONS No Known Immunizations"
--- OUTSIDE RECORDS SUMMARY | ~2017-08-27 | XMS | Encounter Summary ---
Demographics + + + | Address | [address] | | | [place] [address] | + + + | Home Phone | | + + + | Preferred Language | Unknown | + + + | Marital Status | | + + + | Taoist Affiliation | NON | + + + [...] | | + + +---------+ + | aDvid | ECON | Unknown | | + + +---------+ + | Florin Pantoja | ECON | Unknown | | + + +---------+ + Care Team Providers + +------+ + | Care Chest Painting And Sealing Supervisor Name | Role | Phone | + +------+ + | Saurav De Los Santos NP | PCP | | + +------+ + Encounter Details +--------+ + + + + | Date | Type | Department | Care Team | Description | +--------+ + + + + | 07/01/ | Pharmacy | Specialty Pharmacy | | | | 2017 | Visit | Services [address] | | | | | | [address] | | | | | | [place], [place] | | | | | | [address] | | | | | | [phone] | | | +--------+ + + + [...]
--- OUTSIDE RECORDS SUMMARY | ~2017-08-27 | XMS | Encounter Summary ---
Demographics + + + | Address | [address] | | | [place] [address] | + + + | Home Phone | | + + + | Preferred Language | Unknown | + + + | Marital Status | | + + + | Episcopal Affiliation | NON | + + + [...] Team Providers + +------+ + | Care Assistant Cook Name | Role | Phone | + +------+ + | Saurav De Los Santos NP | PCP | | + +------+ + Encounter Details +--------+ + + + + | Date | Type | Department | Care Team | Description | +--------+ + + + + | 08/01/ | Anesthesia | [facility] | Glenna Shah, | | | 2018 | Event | Hematologic | CUSTOMER SERVICE ADMINISTRATOR [address] | | | | | Malignancies at | [address] | | | | | [place] | [place], [place] | | | | | [address] | [address] | | | | | [facility] | [phone] | | | | | Mailcode: [id number] | | | | | | [place] | | | | | | [place], [place] | | | | | | [address] | | | | | | [phone] | | | +--------+ + + + + Anesthesia Record + + + + + | Procedure Name | Responsible | Anesthesia Start | Anesthesia Stop Time | | | Anesthesiologist | Time | | + + + + + | CHM BONE MARROW | | | | | BIOPSY | | | | + + + + + + + | No events on file. | + + +------+ | Meds | +------+ + + + No medications | on file. | + + + + + | No agents on file. | + + + + | No blood administrations on file. | + + +--------+ + +---------+ | Type | Details | Placement | Removal | +--------+ + +---------+ | Incisi | 03/14/16; stone urbano np; Lower; | 03/14/16 0000 by | | | on | back | Hitesh Ramos RN | | +--------+ + +---------+ | PICC - | 07/25/17; 0900; Kallie Patel | 07/25/17 0900 by | | | | RN; Non-tunneled, Valved; Left; | Piero Mcguire RN | | | Double | Arm; Cephalic; 5 Fr; 1:Red; | | | | Lumen | 2:Purple; Yes; [id number] | | | +--------+ + +---------+ in this encounter Social History + + + +--------+ + [...]
--- OUTSIDE RECORDS SUMMARY | ~2017-08-27 | XMS | Encounter Summary ---
Demographics + + + | Address | [address] | | | [place] [address] | + + + | Home Phone [...] Team Providers + +------+ + | Care Patient Insurance Clerk Name | Role | Phone | + +------+ + | Saurav De Los Santos NP | PCP | | + +------+ + Reason for Visit + + + | Reason | Comments | + + + | Transplant | LIT HLA Family results | + + + Encounter Details +--------+ + + + + | Date | Type | Department | Care Team | Description | +--------+ + + + + | 06/06/ | Documentati | Kidney Transplant | Alexx Aguirre, | Transplant (LIT HLA | | 2018 | on | at [facility] [address] | [address] | Family results) | | | | [facility] | [facility] | | | | | Mailcode: [id number] | [place], [place] | | | | | [facility] | [address] | | | | | [address] [place], | [phone] | | | | | [place] [address] | | | | | | [phone] | | | +--------+ + + + [...]
--- OUTSIDE RECORDS SUMMARY | ~2017-08-27 | XMS | Encounter Summary ---
Demographics + + + | Address | [address] | | | [place] [address] | + + + | Home Phone | | + + + | Preferred Language | Unknown | + + + | Marital Status | | + + + | Pentecostal Affiliation | NON | + + + | Race | White | + + + | Ethnic Group | Not or | + + + Author + + + | Author | [facility] | + + + | Organization | [facility] | + + + | Address [...] Team Providers + +------+ + | Care Knowledge Management Advisor Name | Role | Phone | + +------+ + | Saurav De Los Santos NP | PCP | | + +------+ + Encounter Details +--------+ + + + + | Date | Type | Department | Care Team | Description | +--------+ + + + + | 07/02/ | Pharmacy | Outpatient Retail | | | | 2017 | Visit | Clinic Pharmacy | | | | | | [address] | | | | | | [facility] | | | | | | [place], [place] | | | | | | [address] | | | +--------+ + + + [...]
--- OUTSIDE RECORDS SUMMARY | ~2017-08-27 | XMS | Clinical Summary ---
Demographics + + + | Address | [address] | | | [place] [address] | + + + | Home Phone | | + + + | Preferred Language | Unknown | + + + | Marital Status | | + + + | Restorationism Affiliation | NON | + + + [...] Team Providers + +------+ + | Care Senior Fire Protection Engineer Name | Role | Phone | + +------+ + | Saurav De Los Santos NP | PP | | + +------+ + Source Comments CARARMANDO is fully live on both EpicCare Ambulatory and EpicCare InPatient.[facility] Allergies + + + + + + [...] | | | | | | | ([facility]) | | | | | | | [...] | 03/05/2016 | + + + | [facility] RESEARCH PROTOCOL PATIENT (SUNNY) | 02/23/2016 | [...] + + + + | 08/06/ | Alum Plant Supervisor | | Shayna Gardiner, | Acute myeloid [...] | | 2017 | Event | | HOSPICE HOME HEALTH AIDE | | +--------+ + + + + [...] | | | Staci, | | | MECHANICAL DRAFTER Brief | | | hospital | | [...] | | and Dr. | | | [place] did | | | speak with | | | Dr. | | | Leonardo | | | | | | immediately | | | before | | | discharge. | | | Of note, | | | she did | | | have fevers | | | within 24 | | | hours of | | | leaving. | | | [place] to be | | | most c/w [...] | | | hospital | | | ([place] | | | St. | | | [...] | CR 15 mg | | | [id number] | | | y known as: | [...] | | | Physician | | | Veneer Press Operator | | | working | | | with me, | | | had a face | | | to face | | | encounter | | | with this | | | patient on | | | 08/06/2017On | | | behalf of | | | Attending | | | Physician: | | | Pepe A | | | [place], MDI | | | am ordering | [...] | | | Cancer | | | [address] | | | [address] | | | [place] | | | [phone] | | | [phone] | | | SAURAV | | | STACI, | | | MECHANICAL DRAFTER . | | | Specialty: | | | Nurse | | | Practitione | | | r Adult | | | Health[facility]a | | | ct | | | information | | | [facility] | [facility] | | | CARE | | | [id number] | | | [address] | | | [place] | | | [place] | | | [phone] | | | [phone] | | | Daniel C | | | Leonardo | | | , MD Sanchez | | | Specialty: | | | Hematology | | | & | | | OncologyCon | | | tact | | | information | | | [facility] | [facility] | | | Cancer | | | [id number] | | | [facility] | | | [address] | | | [address] | | | n [place] | | | [phone] | | | [phone] | | | Greater | | | than 35 | | | minutes | | | spent | | | arranging | | | discharge, | | | medications | | | and follow | | | up NORIS | | | [place], | | | ACNPOHSU | | | [id number] | | | [address] | | | Antione | | | Kendra | | | RoadMailcod | | | e: | | | [id number] | | | [place], [place] | | | [phone] | | | [phone] | +---+ + [...] | | | | | | type ([facility]) | | | | | | Immunocompromised | | | | | | state ([facility]) | | | | | | Pneumonia with the | | | | | | fungal infection | | | | | | aspergillosis ([facility]) | | | | | | Abnormal [...] Months Results CULTURE, BLOOD BACTI & YEAST [facility] (08/08/2017 1:02 AM)Only the most recent of [...] + + | Blood - Antecubital | [facility] LABORATORY SERVICES, CORE [address] [place] [address] | | - right | [place] [address] | + + + CULTURE, BLOOD BACTI [...] ------ CULTURE, BLOOD | | BACTI & Y...[[id number]] Final | | result Please view results [...] | + + + | Blood | [facility], CORE [address] [facility] | | | [place] [address] | + + + + + | [...] | ------ CBC AND AUTO | | DIFF[[id number]] Abnormal Final | | result Please view [...] | >60 | >60 mL/min | | [place] | | | + + + + | EGFR NON | >60 | >60 mL/min | | -[place] | | | + + + + [...] | + + + | Blood | [facility], CORE [address] | | | [place] [address] | + + + + + | [...] | + + + | Blood | [facility] LAB[facility]ORY SERVICES, CORE [address] [facility] | | | [place] [address] | + + + + + | [...] | + + + | Blood | [facility] LABOR[facility]ORY SERVICES, CORE [address] [place] [address] | | | [place] [address] | + + + URIC ACID, PLASMA [...] | + + + | Blood | [facility], CORE [address] [facility] | | | [place] [address] | + + + MAGNESIUM, PLASMA (08/07/2017 [...] | + + + | Blood | [facility], CORE [address] | | | [place] [address] | + + + + + | [...] | + + + | Blood | [facility], CORE [address] [place] [address] | | | [place] [address] | + + + TRANSFUSE RED CELLS, [...] | + + + | Blood | [facility] LABOR[facility]ORY SERVICES, TRANSFUSION MEDICINE [address] [place] [address] | | | [place] [address] | + + + TYPE AND SCREEN [...] | ------ ABO & RH | | TYPE[[id number]] F | | inal result ANTIBODY | | SCREEN[[id number]] Fin | | al result Please view [...] | + + + | Blood | [facility] SERVICES, TRANSFUSION MEDICINE [address] [place] [address] | | | [place] [address] | + + + PRODUCT - RED [...] + + | PRODUCT UNIT # | [id number] | | + + + + | UNIT ABO | O | | + + + + | UNIT RH | POS | | + + + + | STATUS OF UNIT | Presumed Transfused | | + + + + | EXPIRATION DATE | [id number] | | + + + + | BLOOD TYPE BARCODE | 5100 | | + + + + | BLOOD PRODUCT CODE | [id number] | | + + + + + + + | Specimen | Performing Laboratory | + + + | | [facility]ORY SERVICES, TRANSFUSION MEDICINE [address] [facility] | | | [place] [address] | + + + TRANSFUSE PLATELET PHERESIS, [...] | + + + | Blood | [facility] LABORATORY SERVICES, [facility] [address] | | | [place] [address] | + + + + + | [...] + + | PRODUCT UNIT # | [id number] | | + + + + | UNIT ABO | O | | + + + + | UNIT RH | NEG | | + + + + | STATUS OF UNIT | Presumed Transfused | | + + + + | EXPIRATION DATE | [id number] | | + + + + | BLOOD TYPE BARCODE | | | + + + + | BLOOD PRODUCT CODE | [id number] | | + + + + + + + | Specimen | Performing Laboratory | + + + | | [facility] LABOR[facility]ORY SERVICES, TRANSFUSION MEDICINE [address] [place] [address] | | | [place] [address] | + + + VRE (FRANCISCO) BY [...] + + | Swab - Rectum | [facility] LABORATORY SERVICES, CORE [address] [place] [address] | | | [place] [address] | + + + PROCEDURE NOTE (08/01/2017 11:44 PM)BIOPSY AND ASPIRATION OF BONE MARROW (08/01/2017 5:45 PM) + + | Narrative | + + | Ellis Bone PA-C,NAOMY 08/01/2017 5:47 PM 06/27/2017 Procedure Note | | PCP: Saurav De Los Santos NP Procedure: Bone marrow aspirate and biopsy w/medications for | | anxiolysis Equipment Description: OnCKoubachi Rug Weaver Serial ID: [id number] | | Indications: 51 y.o. female with [...] needle was inserted with | | the OnCKoubachi funeral driver. The first aspirate was noted to have spicules and was submitted | | for morphology studies. A second aspirate was obtained in a heparinized syringe | | and submitted for FISH as per previous abnormalities, flow cytometry and | | cytogenetics. A total of 15 mL of bone marrow was aspirated. The OnControl 4 | | inch needle was advanced using the OnCKoubachi funeral driver. A core biopsy measuring | | [...] 24 to 48 hours. ELLIS BONE PA-C,NAOMY [facility] [address]K [address] | | [facility] Mailcode: Kpv[address] [place] [address] [phone] | + + FLT3 ITD, BONE MARROW [...] clinical trial | | | | (CALGB 08407) has led to the FDA approval | | | | in July 2016 of the multitargeted kinase | | | | inhibitor midostaurin for the treatment of | | | | adult patients with newly diagnosed AML | | | | harboring either the FLT3-ITD or FLT3-TKD | | | | mutations (Shade Prado, Blood, 2017, | | | | 129:4399-5721). The quantitative reporting | | | | [...] | | | characteristics determined by the [facility] | | | | [facility]. It has | | | [...] 1988 | | | | (CLIA). The [facility] | | | | Laboratories are fully licensed by the | | | | state [facility] under CLIA and are | | | | accredited by the [employer] | | | | Pathologists (CAP). Laboratory | | | | Director: Edy Vang M.D., | | | | Ph.D | | + + + + + + + | Specimen | Performing Laboratory | + + + | Bone marrow | [facility] Glasses Direct [facility] [address] [facility] | | | [address] [place] [address] | + + + COMPREHENSIVE HEME PANEL SEQ, BONE MARROW (08/01/2017 3:04 PM) + + + + | Component | Value | Ref Range | + + + + | COMPREHENSIVE HEME | See Interpretation. | | | PANEL SEQ | | | + + + + | INTERPRETATION | [facility] Comprehensive Heme Sequencing: | | | | Mutation Screening by Next-Generation | | | | Sequencing Specimen ID: [id number] | | | | Type: Bone Marrow [...] | | | | (Tier I) Gene: BSD9Kcdaabm: | | | | p.M237uvuxsiIJXJXPEOLMEXULVTjugpkk allele | | | | frequency (VAF): 22%Variant allele ratio: | | | | 0.58 Variant ID: NAFLT3 ([id number]): | | | | c.1782_1783insGTGACCGGCTCCTCAGATAATGAGTACTT | | | | CTACGTTGATTTC; | | | | chr13:16277848Z>TGAAATCAACGTAGAAGTACTCATTAT | | | | CTGAGGAGCCGGTCACLast Observed: 04/04/2017; | | | | Allele frequency: 0%03/03/2017; Allele | | | | frequency: 75%03/14/2016; Allele frequency: | | | | 0%02/15/2016; Allele frequency: 0% Gene: | | | | SSPO5PAckiszx: p.R812WBcfmcmg allele | | | | frequency (VAF): 16%Variant ID: | | | | [id number]; [id number], OZNX20403RLDJ2H | | | | (ONTX76239.1):c.2644C>T; | | | | chr2:54111351H>ALast Observed: 04/04/2017; | | | | Allele frequency: 19%03/03/2017; Allele | | | | frequency: 46%03/14/2016; Allele frequency: | | | | 14%02/15/2016; Allele frequency: 45% Gene: | | | | RMO3Xpkzlce: p.W288fs*12Variant allele | | | | frequency (VAF): 14%Variant ID: | | | | [id number]; [id number] | | | | (LVPG0732.1):c.859_860insTCTG; | | | | chr5:988115734F>CTCTGLast Observed: | | | | 04/04/2017; Allele frequency: 0%03/03/2017; | | | | Allele frequency: 44%03/14/2016; Allele | | | | frequency: 0%02/15/2016; Allele frequency: | | | | 46% Variant(s) of Potential Clinical | | | | Significance (Tier II) Gene: GM2Pkasdjr: | | | | p.V362fs*69Variant allele frequency (VAF): | | | | 12%Variant ID: [id number] | | | | (WJJI57868.1):c.1083_1088TGTACG>GA; | | | | chr11:70583735PKQFHBL>CTCLast Observed: | | | | 04/04/2017; Allele [...] 2010; Gilda, | | | | Blood 115:85367, 2010). No targeted therapy | | | [...] | | | | | | | genes:YSV2TERVGKBKBRHUSIU5ZKVX8QLWGF1URI0QM | | | | VD5NVC05ZIPYSB0GFBD9RVX4DFI9VAYGORQHYVKNX55 | | | | DSRYF1JXJAX6WKCFQMXP7BLMC1VVZR06 | | | | Chromatin-modifying | | | | genes:CGFI5UQKDSZRS845IUI2KSL0UBDWDCHJ77 | | | | DNA methylation-associated | | | | genes:OLIP7GKDY8ADL6MPE0 Electric Crane Operator | | | | factors:VVSXNGW6MOHGIMCWPSFMJTO8ZUDE7PSSU2V | | | | EDA9IA5LIWG0ZAH3CAQO8PWDQTQW7DKHA2ZYBV8HDP2 | | | | Spliceosome-complex | | | | genes:VXZR0DU5T9K9EN3UPYV0 Cohesion-complex | | | | genes:CWF7UVZA6YOHN1EYE94 Tumor suppressor | | | | genes:BA59OP0XWK4 and | | | | others:HME1LLGX8VRGV77EE68FSRZ9LZDNS2MUFDEA | | | | PMZ6SFIFBU0TXJQZA75YJGWW5 All the coding | | | | [...] multiplexed PCR (customized | | | | Wickr targeted DNA panel with molecular | | | | barcodes) and sequencing on an Illumina | | | | platform (Brainly). Sequencing data is | | | | [...] classification: Blood. 2016; | | | | 127(20):2578-797. 7.Catalogue Of Somatic | | | | Mutations In Cancer: | | | | http://cancer.julia.ac.uk/cosmic8.ClinVar: | | | | | | | | https://www.ncbi.nlm.nih.gov/clinvar/9.[facility]LEY- | | | | Clinical Knowledgebase (CKB): | | | | [email or web address]://[email or web address]/10.[facility]: | | | | [email or web address] [email or web address].org/home | | + + + + | DISCLAIMER | This test was developed and its performance | | | | characteristics determined by the [facility] | | | | [employer]. It has | | | | not [...] 1988 | | | | (CLIA). The [facility] | | | | Laboratories are fully licensed by the | | | | state [facility] under CLIA and are | | | | accredited by the [employer] | | | | Pathologists (CAP). Laboratory | | | | Director: Edy Vang M.D., | | | | Ph.D | | + + + + + + + | Specimen | Performing Laboratory | + + + | Bone marrow | [facility] [address] | | [address] [place] [address] | + + + GENETRAILS COMPREHENSIVE HEME [...] | | ------ COMPREHENSIVE | | HEME PANEL...[[id number]] Final | | result FLT3 ITD, BONE | | MARROW[[id number]] Final | | result Please view results for these tests on the | | individual orders. | + + LESS COMMON INDIVIDUAL FISH PROBES, BONE MARROW/CORE (08/01/2017 3:04 PM) + + + + | Component | Value | Ref Range | + + + + | PREVIOUS | Perez 5q EGR1 (5q31) (SO) / D5S23, O0V422 | | | ABNORMALITIES PROBE | (5p15.2) () | | | NAME ONE | | | + + + + | CELLS SCORED PROBE | 200 | | | ONE | | | + + + + + + + | Specimen | Performing Laboratory | + + + | Bone marrow | [facility] [address] | | | [address] [place] [address] | + + + AML FISH PANEL, BONE MARROW/CORE (08/01/2017 3:04 PM) + +--------+ + | Component | Value | Ref Range | + +--------+ + | AML FISH PANEL | Normal | | + +--------+ + | CS METASYSTEMS | 200 | | | Q7F576 (7Q31) (SO) / | | | | [...] SCORED PEREZ | 200 | | | YPZV7R8 (8Q21.3) | | | | (SO) / [...] CS METASYSTEMS | 200 | | | DEK(6P22)(SG)/XDR758 | | | | (9Q34)(SO)T(6;9)DC,D | | | + +--------+ + + + + | Specimen | Performing Laboratory | + + + | Bone marrow | [facility] Glasses Direct [facility] [address] | | | [address] [place] [address] | + + + CYTOGENETICS BONE MARROW [...] | | was made by the clinical blanket cutting machine operator. | | | | | | | [...] | | | characteristics determined by the [facility] | | | | [facility]. [...] 1988 | | | | (CLIA). The [facility] | | | | Laboratories are fully licensed by the | | | | [facility] under CLIA and are | | | | accredited by the [employer] | | | | Pathologists (CAP). Laboratory | | | | Director: Edy Vang M.D., | | | | Ph.D Electronically reviewed and signed | | | | by:Kar Mckeon, PhD, [facility] | | | | [employer] Clinical Molecular | | | | Geneticist08/12/2017 at 8:15 AM Reviewed | | | | and electronically signed by OLIVIA | | | | MD RENAY,[facility]08/12/2017 2:19 PM | | + + + + + + + | Specimen | Performing Laboratory | + + + | Bone marrow | [facility] [address] | | | [address] [place] [address] | + + + LEUKEMIA/LYMPHOMA MARKERS - [...] characteristics | | | | determined by deltaDNA. It has | | | | not [...] + + + | Bone marrow | [facility] DEPARTMENT OF PATHOLOGY [address] [facility] | | | [place] [address] | + + + BRONCHOSCOPY WITH BRONCHOALVEOLAR [...] as fungal & bacterial PCR - see HipLogic for pending labs. | | Cytology done [...] Laboratory | + + + | | [facility] RADIOLOGY VOICE RECOGNITION | + + + + + | Narrative | + + | EXAM: MO CHEST 1 VIEW 07/31/17 07:58:13 HISTORY: Post [...] Interface - 07/31/2017 9:02 AM PDT EXAM: MO CHEST 1 | | VIEW 04/04/18 07:58:13 [...] | + + + | Bronchoalveolar | [facility] LABORATORY SERVICES, CORE [address] | | lavage fluid - | [place] [address] | | Broncheoalveolar | | | Lavage [...] performed by : | | | | [facility] | | | | [address] [facility] | | | | [place] [address] | | + + + + + [...] characteristics determined by | | | | [employer]. See Compliance | | | | Statement B: [employer]/CSPerformed by | | | | [employer],[address] [address],[place] | | | | [address] sci.[employer], [place] | | | | MD Darren, Lab. Director | | + + + + | SOURCE, INF SER/PCR | BAL | | + + + + + + + | Specimen | Performing Laboratory | + + + | Bronchoalveolar | [facility] [address] [facility] | | lavage fluid - Lung | [place] [address] | + + + LEUKEMIA/LYMPHOMA MARKER - [...] non-specific staining. | | | | Antibodies MxjugjZR01 CD14 CD16 CD33 CD34 | | | [...] characteristics | | | | determined by deltaDNA. It has | | | | not [...] | + + + | Bronchoalveolar | [facility] DEPARTMENT OF PATHOLOGY [address] | | lavage fluid - | [place] [address] | | Broncheoalveolar | | | Lavage | | + + + NON IT ENGINEER CYTOLOGY (07/31/2017 7:47 AM) + + + [...] + + | Fluid - Lung | [facility] DEPARTMENT OF PATHOLOGY [address] [facility] | | | [place] [address] | + + + CULTURE, BRONCHIAL LAVAGE (07/31/2017 7:46 AM) + + + | Specimen | Performing Laboratory | + + + | Bronchoalveolar | [facility] - [place] [address] [place], [place] | | lavage fluid - Lung | [address] | + + + + + | [...] | + + + | Bronchoalveolar | [facility] [place] [address] [place] | | lavage fluid - Lung | [address] | + + + + + | Narrative | + + | Culture Report: No fungus isolated at 3 weeks. | + + NOCARDIA CULTURE, RULE OUT (07/31/2017 7:46 AM) + + + | Specimen | Performing Laboratory | + + + | Bronchoalveolar | [facility] [place] [address] [place], [place] | | lavage fluid - Lung | [address] | + + + + + | [...] | | | | radiographic imaging).Performed by [employer] | | | | [employer],[address] [place] [address],[place] [address] | | | | [phone].[employer], [place] Banks, | | | | Olive ANTUNEZ. Director | | + + + + + + + | Specimen | Performing Laboratory | + + + | Bronchoalveolar | [address] | | lavage fluid - Lung | [place] [address] | + + + + + | Narrative | + + | Test performed by [facility] [address] [place] [address] | | [phone] www.[employer] | | | | | + + FLEXIBLE BRONCHOSCOPY (07/31/2017 7:32 AM) + + + | Specimen | Performing Laboratory | + + + | | [facility] BRONCHOS[facility] | + + + + + | Narrative | + + | Procedure Date: 07/31/2017 Patient Name: Rhea Hutchison Order #: [id number] | | Date of : 1965 CSN: [id number] Admit Type: Inpatient Room: OR | | Procedure: Bronchoscopy | | Indications: Diagnostic bronchoalveolar lavage, Bilateral | | infiltrate, Immune compromised with | | pneumonia, Abnormal CT scan of chest | | Providers: NIDHI FOWLER MD, ANTONINO YBARRA MD (Fellow), | | KAR DELGADO MD, SHERRY JOHN, [facility] | | Referring MD: ANTONINO YBARRA [...] and soft palate visualized). | | - [place] Protocol: | | - Pre-procedure Verification: Prior [...] by | | the physician and the biodiesel processing technician in the | | procedure room [...] continuously. The Olympus | | BF-Q190 S/N [id number] bronchoscope was | | introduced through the [...] during the entire procedure, including non-jc portions. Nidhi Fowler MD | | NIDHI FOWLER MD 07/31/2017 12:31:52 PM Number of Addenda: 0 Note Initiated On: | | 07/31/2017 7:32 AM Estimated Blood Loss: Estimated blood loss: none. | + + CULTURE, SPUTUM CYSTIC FIBROSIS (07/31/2017 12:13 AM) + + + | Specimen | Performing Laboratory | + + + | Sputum - Lung | [facility] [place] [address] [place] [facility] [place] | | | [address] | + + + + + | [...] | + + + | Blood | [facility] LABORATORY SERVICES, SPECIAL IMM + COAG [address] [facility] | | | [place] [address] | + + + + + | [...] | | | | characteristics determined by [facility] | | | | [facility]. See Compliance Statement B: | | | | [employer]/CSPerformed by [facility] | | | | [facility],[address] [place] [address] | | | | [phone].[employer], [place] Banks, | | | | , Lab. Director | | | |www.[employer], [place] Banks MD, Lab. Director | | + + + + + + + | Specimen | Performing Laboratory | + + + | Blood | [facility] [address] [facility] | | | [place] [address] | + + + CT CHEST WO [...] Laboratory | + + + | | [facility] RADIOLOGY VOICE RECOGNITION | + + + [...] ANALI, | | LAINE Authorized by: ANGELIA HERNANDEZ PICC/Midline Insertion Procedure Note | | [...] verifies correct patient, | | procedure, equipment, direct support specialist and site/side marked as required. [...] Arm area Cephalic vein. Catheter lot number: [id number] with a length of 55 cm | [...] | + + + | Blood | [facility] LABORATORY SERVICES, CORE [address] [place] [address] | | | [place] [address] | + + + CBC ONLY (07/23/2017 [...] | | ------ CBC (HEMOGRAM) | | ONLY[[id number]] Abnormal Final | | result Please view [...] | + + + | Blood | [facility] LAB[facility]ATORY SERVICES, CORE [address] [facility] | | | [facility] [address] | + + + + + | [...] | + + + | Urine | [facility] LABORATORY SERVICES, CORE [address] [place] [address] | | | [place] [address] | + + + URINE SCREEN FOR [...] | + + + | Urine | [facility], CORE [address] [facility] | | | [place], [place] [address] | + + + + + | [...] + | Blood - Blue port | [facility] [place] [address] [place], [place] | | lumen | [address] | + + + + + | [...] | + + + | Blood | [facility] LABORATORY SERVICES, CORE [address] [facility] [address] | | | [place] [address] | + + + APTT (ACT. PART. THROMBO TIME) (07/17/2017 11:47 PM) + + + + | Component | Value | Ref Range | + + + + | APTT | 37.5 (H) | 26.0 - 36.0 seconds | + + + + + + + | Specimen | Performing Laboratory | + + + | Blood | [facility] LABORATORY SERVICES, CORE [address] [place] [address] | | | [place] [address] | + + + + + | [...] + + | | [facility], POINT OF CARE TESTS [address] | | | [place] [address] | + + + RBC MORPHOLOGY (07/04/2017 [...] | + + + | Blood | [facility], CORE [address] [facility] | | | [place] [address] | + + + MANUAL DIFFERENTIAL (07/04/2017 [...] | + + + | Blood | [facility], CORE [address] [facility] | | | [place] [address] | + + + + + | [...] | >60 | >60 mL/min | | [facility] | | | + + + + | EGFR NON | >60 | >60 mL/min | | -[place] | | | + + + + [...] | + + + | Blood | [facility], CORE [address] [facility] | | | [place] [address] | + + + + + | [...] | + + + | Blood | [facility], CORE [address] [facility] [address] | | | [place] [address] | + + + + + | [...] + + + + | URINE CULTURE [facility] | No growth (<1000 cfu/mL) after 24 hours | | + + + + + + + | Specimen | Performing Laboratory | + + + | Urine | [facility], CORE [address] [facility] | | | [place] [address] | + + + UA, DIPSTICK ONLY [...] + | SPECIFIC GRAVITY | 1.021Comment: Specific [place] performed by | 1.005 - 1.030 | | | refractometry | | + + + + + + + | Specimen | Performing Laboratory | + + + | Urine | [facility] LAB[facility]ATORY SERVICES, CORE [address] [facility] | | | [place] [address] | + + + FLT3 ITD, BLOOD [...] clinical trial | | | | (CALGB [id number]) has led to the FDA approval | | | | in July 2016 of the multitargeted kinase | | | | inhibitor midostaurin for the treatment of | | | | adult patients with newly diagnosed AML | | | | harboring either the FLT3-ITD or FLT3-TKD | | | | mutations (Shade Prado, Blood, 2017, | | | | 129:1266-4480). The quantitative reporting | | | | [...] | | | characteristics determined by the [facility] | | | | [facility]. It has | | | [...] 1988 | | | | (CLIA). The [facility] | | | | Laboratories are fully licensed by the | | | | state [facility] under CLIA and are | | | | accredited by the [employer] | | | | Pathologists (CAP). Laboratory | | | | Director: Edy Vang M.D., | | | | Ph.D Reviewed and electronically signed | | | | by DEANGELO JOLLY MD,PhD3 12:00 | | | | PM | | + + + + + + + | Specimen | Performing Laboratory | + + + | Blood | [facility] [place] [id number] [address] [facility] | | | [address] [place] [address] | + + + COMPREHENSIVE HEME PANEL [...] Sequencing Specimen ID: | | | | [id number] Type: BloodCollection | | | | Date: [...] | | bpVariant: | | | | p.K774jvjxgiKQVJBBLJMDHZGTKZzvkofz allele | | | | frequency (VAF): 71%Allelic ratio = 23FLT3 | | | | (TMNP22859.1):c.1782_1783insGTGACCGGCTCCTCA | | | | GATAATGAGTACTTCTACGTTGATTTC; | | | | chr13:85217316R>TGAAATCAACGTAGAAGTACTCATTAT | | | | CTGAGGAGCCGGTCACLast Observed: 04/04/2017; [...] | | | (Shade Esparzais, Blood, 2017, 129:3633-9307). | | | | The FLT3 kinase is also specific target of | | | | several other tyrosine kinase inhibitors | | | | that may be recruiting patients for | | | | clinical trials (including quizartinib, | | | | lestaurtinib, midostaurin, sorefenib, | | | | sunitinib, ponatinib, etc Gene: | | | | ETD2Oqhtbaz: p.W288fs*12Variant allele | | | | frequency (VAF): 51%Variant ID: | | | | [id number]; [id number] | | | | (EDNR5135.1):c.859_860insTCTG; | | | | chr5:024499582P>CTCTGLast Observed: | | | | 04/04/2017; Allele frequency: 0%03/03/2017; | | | | Allele frequency: 44%03/14/2016; Allele | | | | frequency: 0%02/15/2016; Allele frequency: | | | | 46% Gene: BISR6TLnzovnh: p.K169KLhhnpfc | | | | allele frequency (VAF): 48%Variant ID: | | | | [id number]; [id number], MUZW68051PGEH0Q | | | | (XNCF02526.1):c.2644C>T; | | | | chr2:74739958B>ALast Observed: 04/04/2017; | | | | Allele frequency: 19%03/03/2017; Allele | | | | frequency: 46%03/14/2016; Allele frequency: | | | | 14%02/15/2016; Allele frequency: 45% | | | | Variant(s) of Potential Clinical | | | | Significance (Tier II) Gene: DB3Eamfpfp: | | | | p.V362fs*69 (not detected in prior | | | | samples)Variant allele frequency (VAF): | | | | 41%Variant ID: WT1 | | | | (MDCW13667.1):c.1083_1088TGTACG>GA; | | | | chr11:90040696GKSUXBZ>CTC The WT1 gene | | | | encodes a zinc-finger emergency medical dispatcher factor | | | | that plays [...] | | | 116(5):788-92, 2010; Gilda, Blood 115:94096, | | | | 2009). Case reviewed [...] | | | | | | | genes:KBP7SREMFQGMVKOZSAX4CNXT0UPFZM4ECR9ZC | | | | QI5ICQ49UUZEAQ2QVNX6MDX7FLN9WBBIPMMZBOPWN99 | | | | EYBIB1FCZDK8UOMIDZZP8HVII6AFEW39 | | | | Chromatin-modifying | | | | genes:IXAC4AYJTLSPJ558RGF4KTR1QFGPNWED77 | | | | DNA methylation-associated | | | | genes:VGRV2PQFY9JAN9ZAW6 Electric Crane Operator | | | | factors:ACKDNBZ1QGHAJDZITVINZGR1OAHH0SAAN4R | | | | UTX3QD9PWEB1YSH9ANQS3VVJZSPY4HFAS1UVAZ5LWL9 | | | | Spliceosome-complex | | | | genes:QSOZ5CR8N0D4MV0RMRJ1 Cohesion-complex | | | | genes:AKD6FPXQ1NWOX4FQW92 Tumor suppressor | | | | genes:AJ77KB2OJG2 and | | | | others:FSB8VGWF2SXQO39NM21JOHW5WXSXX2CJLHHA | | | | ZXU9BBANFG8NRUJYL35IEEVJ9 All the coding | | | | [...] multiplexed PCR (customized | | | | Wickr targeted DNA panel with molecular | | | | barcodes) and sequencing on an Illumina | | | | platform ([id number]). Sequencing data is | | | | [...] classification: Blood. 2016; | | | | 127(20):3265-521. 7.Catalogue Of Somatic | | | | Mutations In Cancer: | | | | http://cancer.julia.ac.uk/cosmic8.ClinVar: | | | | | | | | https://www.ncbi.nlm.nih.gov/clinvar/9.SHIRLEY- | | | | Clinical Knowledgebase (CKB): | | | | https://ckb.shirley.org/10.[facility]: | | | | https://civicdb.org/home | | + + + + | DISCLAIMER | This test was developed and its performance | | | | characteristics determined by the [facility] | | | | [facility]. It has | | | [...] 1988 | | | | (CLIA). The [facility] | | | | Laboratories are fully licensed by the | | | | [facility] under CLIA and are | | | | accredited by the [employer] | | | | Pathologists (CAP). Laboratory | | | | Director: Edy Vang M.D., | | | | Ph.D Reviewed and electronically signed | | | | by DEANGELO JOLLY MD,PhD3/ 4:49 | | | | PM | | + + + + + + + | Specimen | Performing Laboratory | + + + | Blood | [facility] [place] [address] | | | [address] [place] [address] | + + + LEUKEMIA/LYMPHOMA MARKER - [...] MANUAL DIFFERENTIAL | | | | Order: [id number] - Part of Panel Order | | | | [id number] Collected: 06/29/2017 23:01 | | | | [...] characteristics | | | | determined by deltaDNA. It has | | | | not [...] | + + + | Blood | [facility] DEPARTMENT OF PATHOLOGY [address] | | | [place] [address] | + + + TRANSTHORACIC ECHOCARDIOGRAM, ADULT [...] Laboratory | + + + | | [facility] DEPT OF CARDIOLOGY [address] [place] [address] | | | [place] [address] | + + + + + | Narrative | + + | [facility] Adult Echocardiography Laboratory | | [address] [place] [phone] Ph: | | Pt Name: RHEA HUTCHISON Study | | Date/Time 06/29/2017 / 3:49:49 PM | | Most recent prior: 03/04/2017 Acc #: [id number] No. previous | | echos: 2 : 1965 51 years Heart Rate: 107 bpm | | Height: 62.0 in Blood Pressure: 140/77 mm/Hg | | Weight: 199.0 lb Gender: F | | BSA: 1.91 m2 Order ID: [id number] | | Precipitator: Nathaniel BRANTLEY Referring Provider: Sarah Katz Patient [...] Patient history has been obtained from the [facility] Transthoracic | | Echocardiographic Report | [...] values Report electronically | | signed by: [id number] Hector Khoury MD (06/29/2017, 6:21:10 PM) Final | + + + + | Procedure Note | + + | Interface, Ecg Results - 06/29/2017 6:21 PM [facility] | | [facility] Echocardiography Laboratory [address] [place] [address] | | [place], [place] [address] Pt Name: RHEA HUTCHISON | | Study Date/Time 06/29/2017 / 3:49:49 PMMRN: [id number] [facility] | | recent prior: 03/04/2017Acc #: [id number] No. previous echos: 2DOB: | | 1965 51 years Heart Rate: 107 bpmHeight: 62.0 in Blood | | Pressure: 140/77 mm/HgWeight: 199.0 lb Gender: FBSA: | | 1.91 m2 Order ID: [id number] Precipitator: Nathaniel Steele RCSReferring | | Provider: Sarah [...] Ao 3.20 16.8 | | (prox) cm mm/p1Cqhwndrubt of chamber size and | | geometry is accomplished through the incorporation of linear, volumetric, and indexed | | values Report electronically signed by: [id number] Hector Khoury MD (06/29/2017, 6:21:10 | | [...] | | | |Report electronically signed by: [id number] Hector Khoury MD (06/29/2017, 6:21:10 PM) | [...] Note | + + | Service Account, Eayun Res In Interface - 06/29/2017 7:16 PM [...] | + + + | | [facility] [address] [place] [address] | | | [place] [address] | + + + X-RAY PORTABLE CHEST TUBE OR CATH EVAL X-RAY (06/29/2017 8:20 AM) + + + | Specimen | Performing Laboratory | + + + | | [facility] VOICE RECOGNITION | + + + + + | Narrative | + + | EXAM: MO CHEST TUBE OR CATH EVAL X-RAY 06/29/17 [...] Note | + + | Service Account, Eayun Res In Interface - 06/29/2017 11:21 AM PST EXAM: MO CHEST | | TUBE OR CATH EVAL [...] | + + + | Blood | [facility], CORE [address] | | | [place] [address] | + + + BMR/MUD PANEL (06/03/2017 [...] | ------ LIT HLA-A HIGH | | RES[[id number]] Final | | result LIT HLA-B HIGH | | RES[[id number]] Final | | result LIT HLA-C HIGH | | RES[[id number]] Final | | result LIT HLA-DR HIGH | | RES[[id number]] Final | | result LIT HLA-DQ HIGH | | RES[[id number]] Final | | result LIT HLA-DRB 3,4,5 HIGH | | RES[[id number]] Final | | result Please view results for these tests on the | | individual orders. | + + LIT HLA-DP HIGH RES (06/03/2017 1:47 PM) + + + | Specimen | Performing Laboratory | + + + | Blood | [facility] - IMMUNOGENETICS/[facility]ANSPLANT LABORATORY [address] [place] [address] [address] | | | [address] [place] [address] | + + + LIT HLA-DRB 3,4,5 HIGH RES (06/03/2017 1:47 PM) + + + + | Component | Value | Ref Range | + + + + | LABEL ONLY - LIT | Please see lab report for result. | | + + + + + + + | Specimen | Performing Laboratory | + + + | Blood | [facility] - IMMUNOGENETICS/TRANSPLANT LABORATORY [address] | | | [address] [place] [address] | + + + LIT HLA-DQ HIGH RES (06/03/2017 1:47 PM) + + + | Specimen | Performing Laboratory | + + + | Blood | [facility] - IMMUNOGENETICS/TRANSPLANT LABORATORY [address] | | | [address] [place] [address] | + + + LIT HLA-DR HIGH RES (06/03/2017 1:47 PM) + + + | Specimen | Performing Laboratory | + + + | Blood | [facility] - IMMUNOGENETICS/TRANSPLANT LABORATORY [address] | | | [address] [place] [address] | + + + LIT HLA-C HIGH RES (06/03/2017 1:47 PM) + + + | Specimen | Performing Laboratory | + + + | Blood | [facility] [address] [place] [address] , | | | [address] [place] [address] | + + + LIT HLA-B HIGH RES (06/03/2017 1:47 PM) + + + | Specimen | Performing Laboratory | + + + | Blood | [facility] - IMMUNOGENETICS/TRANSPLANT LABORATORY [address] | | | [address] [place] [address] | + + + LIT HLA-A HIGH RES (06/03/2017 1:47 PM) + + + + | Component | Value | Ref Range | + + + + | LABEL ONLY - LIT | Please see lab report for result. | | + + + + + + + | Specimen | Performing Laboratory | + + + | Blood | [facility] - IMMUNOGENETICS/TRANSPLANT LABORATORY [address] [facility] , | | | [address] [address] | + + + from Last 3 Months
--- OUTSIDE RECORDS SUMMARY | ~2017-08-27 | XMS | Encounter Summary ---
Demographics + + + | Address | [address] | | | [place] [address] | + + + | Home Phone | | + + + | Preferred Language | Unknown | + + + | Marital Status | | + + + | Oriental Orthodox Affiliation | NON | + + + | Race | White | + + + | Ethnic Group | Not or | + + + Author + + + | Author | [facility] | + + + | Organization | [facility] | + + + | Address [...] Team Providers + +------+ + | Care Attending Anesthesiologist Name | Role | Phone | + +------+ + | Saurav De Los Santos NP | PCP | | + +------+ + Encounter Details +--------+ + + + + | Date | Type | Department | Care Team | Description | +--------+ + + + + | 08/08/ | Pharmacy | Specialty Pharmacy | | | | 2017 | Visit | Services [address] | | | | [address] | | | | | | [place], [place] | | | | | | [address] | | | | | | [phone] | | | +--------+ + + + [...]
--- OUTSIDE RECORDS SUMMARY | ~2017-08-27 | XMS | Encounter Summary ---
Demographics + + + | Address | [address] | | | [place] [address] | + + + | Home Phone | | + + + | Preferred Language | Unknown | + + + | Marital Status | | + + + | Temple Affiliation | Unknown | + + + | Race | Unknown | + + + | Ethnic Group | Unknown | + + + Author + + + | Author | [facility] | | | and [place] | + + + | Organization | [facility] | | | and [place] | + + + | Address | Unknown | + + + | Phone | Unavailable | + + + Support + + + + + | Name | Relationship | Address | Phone | + + + + + | Jhony Hutchison | ECON | [address] | | | | | [address] [place] | | | | | [address] | | + + + + + | Florin Pantoja | ECON | Unknown | | + + + + + Care Team Providers + +------+ + | Care Machine Operator Packaging Name | Role | Phone | + +------+ + | Saurav De Los Santos NP | PCP | | + +------+ + Encounter Details +--------+ + + + + | Date | Type | Department | Care Team | Description | +--------+ + + + + | 06/28/ | Orders Only | [facility] | Tammy Donald, | | | 2017 | | [facility] | RN | | | | | INFUSION [address] | | | | | | [place], | | | | | | [place] [address] | | | | | | [phone] | | | +--------+ + + + [...]
--- OUTSIDE RECORDS SUMMARY | ~2017-08-27 | XMS | Encounter Summary ---
Demographics + + + | Address | [address] | | | [place] [address] | + + + | Home Phone | | + + + | Preferred Language | Unknown | + + + | Marital Status | | + + + | Bahai Affiliation | NON | + + + | Race | White | + + + | Ethnic Group | Not or | + + + Author + + + | Author | [facility] | + + + | Organization | [facility] | + + + | Address [...] Team Providers + +------+ + | Care Obstetrics Specialist Name | Role | Phone | [...] | | | | | | Road [place], [place] | | | | | | [address] | | | +--------+ + + + [...]
--- OUTSIDE RECORDS SUMMARY | ~2017-08-27 | XMS ---
Demographics + + + | Address | [address] | | | [address] | | | [place] [address] | + + + | Preferred Language | Unknown | + + + | Marital Status | Unknown | + + + | Muslim Affiliation | Unknown | + + + | Race | Unknown | + + + | Ethnic Group | Unknown | + + + Author + + + | Author | [facility] | + + + | Organization | [facility] | + + + | Address | [address] | | | [place] [address] | + + + | Phone | | + + + Care Team Providers + + + + | Care Manager Rfid Name | Role | Phone | + + + + Unavailable | Unavailable | + + + + PROBLEMS +---------+ + + +--------+ + + | Type | Condition | ICD9-CM | TBE08-BM | Onset | Condition | SNOMED | | | | Code | Code | Dates | Status | Code | +---------+ + + +--------+ + + | 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 | | | | | | +---------+ + + +--------+ + + | Problem | Weakness | | R53.1 | | Active | 33977694 | +---------+ + + +--------+ + + | Problem | Fall | | W19.XXXA | | Active | 7715998 | +---------+ + + +--------+ + + | Problem | SUICIDAL | V62.84 | | | Active | 3368657 | | | IDEATION | | | [...] | 575.10 | | | Active | 23333551 | | | | | | | | | | | cholecysti | | | | | | | | tis | | | | | | +---------+ + + +--------+ + + | Problem | Radiculopa | | M54.17 | | Active | 1943961 | | | thy, | | | | | | | | lumbosacra | | | | | | | | l region | | | | | | +---------+ + + +--------+ + + | Problem | Tobacco | V65.42 | | | Active | 923006649 | | | abuse | | | | | | | | counseling | | | | | | +---------+ + + +--------+ + + | 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 | | | | | | | | hip | | | | | | +---------+ + + +--------+ + + | Problem | Family | V16.0 | | | Active | 735068272 | | | history of | | [...] | | N39.3 | | Active | 57928204 | | | incontinen | | | | | | | | ce | | | | | | | | (female) | | | | | | | | (male) | | | | | | +---------+ + + +--------+ + + | Problem | Facet | M46.96 | | | Active | 340894640 | | | arthropath | | | | | | | | y, lumbar | | | | | | +---------+ + + +--------+ + + | Problem | Radiculopa | | M54.12 | | Active | 75678914 | | | thy, | | | | | | | | cervical | | | | | | | | region | | | | | | +---------+ + + +--------+ + + | Problem | At high | Z91.81 | | | Active | 513458480 | | | risk for | | | | | | | | falls | | | | | | +---------+ + + +--------+ + + | Problem | Mobility | Z74.09 | | | Active | 45864227 | | | impaired | | | | | | +---------+ + + +--------+ + + | Problem | 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 | | | | | | +---------+ + + +--------+ + + | Problem | Lump of | 611.72 | | | Active | 58906932 | | | left | | | | | | | | breast | | | | | | +---------+ + + +--------+ + + | Problem | History of | V12.29 | | | Active | 5324271122 | | | goiter | | | | | [address] | +---------+ + + +--------+ + + | Problem | Obesity | | E66.9 | | Active | 339093181 | +---------+ + + +--------+ + + | Problem | Tobacco | | Z72.0 | | Active | 570856224 | | | use | | | | | | +---------+ + + +--------+ + + | Problem | Status | Z96.651 | | | Active | 3984433281 | | | post total | | | | | 02 | | | knee | | | | | | | | replacemen | | | | | | | | t, right | | | | | | +---------+ + + +--------+ + + | Problem | Elevated | | D72.829 | | Active | 494733009 | | | white | | | [...] | F33.9 | | | Active | 67220282 | | | depressive | | | [...] | G89.29 | | | Active | 90221185 | | | chronic | | | | | | | | pain | | | | | | +---------+ + + +--------+ + + | Problem | Radiculopa | | M54.16 | | Active | 575650114 | | | thy, | | | | | | | | lumbar | | | | | | | | region | | | | | | +---------+ + + +--------+ + + | Problem | COPD | | J44.9 | | Active | 91293554 | | | (chronic | | | | | | | | obstructiv | | | | | | | | e | | | | | | | | pulmonary | | | | | | | | disease) | | | | | | +---------+ + + +--------+ + + | Problem | Hypothyroi | | E03.9 | | Active | 57604864 | | | dism | | | | | | +---------+ + + +--------+ + + | Problem | Stress | N39.3 | | | Active | 68968850 | | | incontinen | | | | | | | | ce | | | | | | +---------+ + + +--------+ + + | Problem | Pain in | | M25.551 | | Active | 272864872 | | | right hip | | | | | | +---------+ + + +--------+ + + | Problem | Degenerati | M47.816 | | | Active | 33901564 | | | ve | | | [...]
--- OUTSIDE RECORDS SUMMARY | ~2017-08-27 | XMS ---
Demographics + + + | Address | [address] | | | [address] | | | [place] [address] | + + + | Preferred Language | Unknown | + + + | Marital Status | Unknown | + + + | Baptist Affiliation | Unknown | + + + | Race | Unknown | + + + | Ethnic Group | Unknown | + + + Author + + + | Author | [facility] | + + + | Organization | [facility] | + + + | Address | [address] | | | [place] [address] | + + + | Phone | | + + + Care Team Providers + + + + | Care Vibrator Operator Name | Role | Phone | + + + + Unavailable | Unavailable | + + + + PROBLEMS +---------+ + + +--------+ + + | Type | Condition | ICD9-CM | [id number] | Onset | Condition | SNOMED | | | | Code | Code | Dates | Status | Code | +---------+ + + +--------+ + + | 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 | | | | | | +---------+ + + +--------+ + + | Problem | Weakness | | R53.1 | | Active | 57121237 | +---------+ + + +--------+ + + | Problem | Fall | | W19.XXXA | | Active | 6396676 | +---------+ + + +--------+ + + | Problem | SUICIDAL | V62.84 | | | Active | 6301149 | | | IDEATION | | | [...] | 575.10 | | | Active | 43143244 | | | | | | | | | | | cholecysti | | | | | | | | tis | | | | | | +---------+ + + +--------+ + + | Problem | Radiculopa | | M54.17 | | Active | 8364009 | | | thy, | | | | | | | | lumbosacra | | | | | | | | l region | | | | | | +---------+ + + +--------+ + + | Problem | Tobacco | V65.42 | | | Active | 102234542 | | | abuse | | | | | | | | counseling | | | | | | +---------+ + + +--------+ + + | Problem | Degenerati | M16.9 | | | Active | 244452168 | | | ve joint | | | | | | | | disease | | | | | | | | (DJD) of | | | | | | | | hip | | | | | | +---------+ + + +--------+ + + | Problem | Family | V16.0 | | | Active | 848564387 | | | history of | | [...] | | N39.3 | | Active | 60838115 | | | incontinen | | | | | | | | ce | | | | | | | | (female) | | | | | | | | (male) | | | | | | +---------+ + + +--------+ + + | Problem | Facet | M46.96 | | | Active | 052667622 | | | arthropath | | | | | | | | y, lumbar | | | | | | +---------+ + + +--------+ + + | Problem | Radiculopa | | M54.12 | | Active | 12592089 | | | thy, | | | | | | | | cervical | | | | | | | | region | | | | | | +---------+ + + +--------+ + + | Problem | At high | Z91.81 | | | Active | 325096822 | | | risk for | | | | | | | | falls | | | | | | +---------+ + + +--------+ + + | Problem | Mobility | Z74.09 | | | Active | 84972580 | | | impaired | | | | | | +---------+ + + +--------+ + + | Problem | 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 | 81959495 | | | 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 | | | | | | +---------+ + + +--------+ + + | Problem | Lump of | 611.72 | | | Active | 74759701 | | | left | | | | | | | | breast | | | | | | +---------+ + + +--------+ + + | Problem | History of | V12.29 | | | Active | 7531860 | | | goiter | | | | | | +---------+ + + +--------+ + + | Problem | Obesity | | E66.9 | | Active | 346011116 | +---------+ + + +--------+ + + | Problem | Tobacco | | Z72.0 | | Active | 133998907 | | | use | | | | | | +---------+ + + +--------+ + + | Problem | Status | Z96.651 | | | Active | 6563824451 | | | post total | | | | | 02 | | | knee | | | | | | | | replacemen | | | | | | | | t, right | | | | | | +---------+ + + +--------+ + + | Problem | Elevated | | D72.829 | | Active | 372144591 | | | white | | | [...] | F33.9 | | | Active | 98318102 | | | depressive | | | [...] | G89.29 | | | Active | 18470359 | | | chronic | | | | | | | | pain | | | | | | +---------+ + + +--------+ + + | Problem | Radiculopa | | M54.16 | | Active | 361519144 | | | thy, | | | | | | | | lumbar | | | | | | | | region | | | | | | +---------+ + + +--------+ + + | Problem | COPD | | J44.9 | | Active | 33692182 | | | (chronic | | | | | | | | obstructiv | | | | | | | | e | | | | | | | | pulmonary | | | | | | | | disease) | | | | | | +---------+ + + +--------+ + + | Problem | Hypothyroi | | E03.9 | | Active | 83194372 | | | dism | | | | | | +---------+ + + +--------+ + + | Problem | Stress | N39.3 | | | Active | 00171888 | | | incontinen | | | | | | | | ce | | | | | | +---------+ + + +--------+ + + | Problem | Pain in | | M25.551 | | Active | 621090396 | | | right hip | | | | | | +---------+ + + +--------+ + + | Problem | Degenerati | M47.816 | | | Active | 14091658 | | | ve | | | [...] Morphine | rash | Drug Allergy | 12 Dec, 2016 | Active | + + + + +--------+ SOCIAL HISTORY No smoking Hx information available PLAN OF CARE + +---------+ | Activity | Details | + +---------+ +---+ | | +---+ + + + | Follow Up | 3 -4 Weeks Reason:null | + + + VITAL SIGNS + + + + | Height | 63 in | 2017-01-08 | + + + + | Weight | 202 lbs | 2017-01-08 | + + + + | BMI | 35.78 kg/m2 | 2017-01-08 | + + + + | Temperature | 98.1 degrees Fahrenheit | 2017-01-08 | + + + + | Heart Rate | 88 /min | 2017-01-08 | + + + + | Blood pressure systolic | 107 mm Hg | 2017-01-08 | + + + + | Blood pressure diastolic | 69 mm Hg | 2017-01-08 | + + + + MEDICATIONS + [...] Spacer/A | | as | | 10 Mar, | | | Active | | ero | | directed | | 2015 | | | | | Chamber | [...] Support | | Full | | 02 Nov, | 2 Fe, | 99 | Active | | [...] | Strong | | directed | | 2015 | | | | | Arm type [...] | 1 tablet | 24h | | 10 Harshal, | 30 days | Active | | in | Once a | | | | 2018 | | | | Chloride | day | | | | | | | | ER 15 | | | | | | | [...] + + + + + +--------+ | Chantix | | as | | | | | Active | | Starting | | directed | | | | | | | Month | | | | | | | | | Ralph 0.5 | | | | | | | | | MG X 11 | | | | | | | | | & 1 MG X | | | | | | | | | 42 | | | | | | | [...] + +--------+ | Cymbalta | Orally | 2 | 24h | | | | Active | | 60 MG | Once a | capsule | | | | | | | | day | | | | | | | + + + + + + + +--------+ RESULTS + +--------+------+ + | Name | Result | Date | Reference Range | + +--------+------+ + | Urinalysis, Dip | | | | | (IH) | | | | + +--------+------+ + | Specific Willard | 1.015 | | | + +--------+------+ + | pH | neg | | | + +--------+------+ + | Leukocytes | neg | | | + +--------+------+ + | Nitrite, Urine | neg | | | + +--------+------+ + | Protein | neg | | | + +--------+------+ + | Glucose | norm | | | + +--------+------+ + | Ketones | neg | | | + +--------+------+ + | Urobilingen, | norm | | | | Semi-Qn | | | | + +--------+------+ + | Bilirubin | neg | | | + +--------+------+ + | Blood Hemoglobin | neg | | | | (BLD) | | | | + +--------+------+ + PROCEDURES + + + + + | Procedure | Date Ordered | Related Diagnosis | Body Site | + + + + + | LAB URINALYSIS (DIP | Jan 08, 2017 | | | | STICK ONLY | | | | + + + + + | EST Pt. Level V | Jan 08, 2017 | | | | Comprehensive | | | | + + + + + | DOC MEDS VERIFIED | Jan 08, 2017 | | | | W/PT OR RE | | | | + + + + + | [facility] MED/CURRENT | Jan 08, 2017 | | | | MED MERGE | | | | + + + + + IMMUNIZATIONS No Known Immunizations"
--- OUTSIDE RECORDS SUMMARY | ~2017-08-27 | XMS | Encounter Summary ---
Demographics + + + | Address | [address] | | | [place] [address] | + + + | Home Phone [...] Team Providers + +------+ + | Care Fur Clipper Name | Role | Phone | + [...] [address] | | | | | | [facility] | | | | | | [place], [place] | | | | | | [address] | | | +--------+ + + + [...]
--- OUTSIDE RECORDS SUMMARY | ~2017-08-27 | XMS | Encounter Summary ---
Demographics + + + | Address | [address] | | | [place] [address] | + + + | Home Phone [...] + + + | Author | [facility] | + + + | Organization | [facility] | + + + | [...] Team Providers + +------+ + | Care Tack Cleaner Name | Role | Phone | + [...] [address] | | | | | | [place], [place] | | | | | | [address] | | | | | | [phone] | | | +--------+ + + + [...]
--- OUTSIDE RECORDS SUMMARY | ~2017-08-27 | XMS | Encounter Summary ---
Demographics + + + | Address | [address] | | | [place] [address] | + + + | Home Phone [...] Team Providers + +------+ + | Care Lead Former Name | Role | Phone | + +------+ + | Saurav De Los Santos NP | PCP | | + +------+ + Encounter Details +--------+ + + + + | Date | Type | Department | Care Team | Description | +--------+ + + + + | 06/03/ | Lab | LAB IMMUNOGENETIC | Naresh Moe, | | | 2017 | Requisition | [facility] | MD [facility] [address] | | | | | [address] | [facility] | | | | | [facility] | [place], [place] | | | | | [place], [place] | [address] | | | | | [address] | [phone] | | | | | | | [...] Not on fileas of this encounter Results LIT HLA-DRB 3,4,5 HIGH RES (06/03/2017 1:47 PM) + + + + | Component | Value | Ref Range | + + + + | LABEL ONLY - LIT | Please see lab report for result. | | + + + + + + + | Specimen | Performing Laboratory | + + + | Blood | [facility] - [facility]MMUNOGENET[facility] [address] [place] [address] [address] | | | [address] [place] [address] | + + + LIT HLA-DQ HIGH RES (06/03/2017 1:47 PM) + + + | Specimen | Performing Laboratory | + + + | Blood | [facility] [address] [place] [address] [address] | | | [address] [place] [address] | + + + LIT HLA-DR HIGH RES (06/03/2017 1:47 PM) + + + | Specimen | Performing Laboratory | + + + | Blood | [facility] [email or web address] | | | [address] [place] [address] | + + + LIT HLA-C HIGH RES (06/03/2017 1:47 PM) + + + | Specimen | Performing Laboratory | + + + | Blood | [facility] - [facility] [email or web address] | | | [address] [place] [address] | + + + LIT HLA-B HIGH RES (06/03/2017 1:47 PM) + + + | Specimen | Performing Laboratory | + + + | Blood | [facility] [address] [place] [address] [address] | | | [address] [place] [address] | + + + LIT HLA-A HIGH RES (06/03/2017 1:47 PM) + + + + | Component | Value | Ref Range | + + + + | LABEL ONLY - LIT | Please see lab report for result. | | + + + + + + + | Specimen | Performing Laboratory | + + + | Blood | [facility] [address] | | | [address] [place] [address] | + + + LIT HLA-DP HIGH RES (06/03/2017 1:47 PM) + + + | Specimen | Performing Laboratory | + + + | Blood | [facility] - [facility] [address] [facility] [address] | | | [address] [place] [address] | + + + BMR/MUD PANEL (06/03/2017 [...] | ------ LIT HLA-A HIGH | | RES[[id number]] Final | | result LIT HLA-B HIGH | | RES[[id number]] Final | | result LIT HLA-C HIGH | | RES[[id number]] Final | | result LIT HLA-DR HIGH | | RES[[id number]] Final | | result LIT HLA-DQ HIGH | | RES[[id number]] Final | | result LIT HLA-DRB 3,4,5 HIGH | | RES[[id number]] Final | | result Please view results for these tests on the | | individual orders. 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
--- OUTSIDE RECORDS SUMMARY | ~2017-08-27 | XMS | Encounter Summary ---
Demographics + + + | Address | [address] | | | [place] [address] | + + + | Home Phone | | + + + | Preferred Language | Unknown | + + + | Marital Status | | + + + | Jain Affiliation | Unknown | + + + | Race | Unknown | + + + | Ethnic Group | Unknown | + + + Author + + + | Author | [facility] | | | and [place] | + + + | Organization | [facility] | | | and [place] | + + + | Address | Unknown | + + + | Phone | Unavailable | + + + Support + + + + + | Name | Relationship | Address | Phone | + + + + + | Jhony Hutchison | ECON | [address] | | | | | [address] [place] | | | | | [address] | | + + + + + | Florin Pantoja | ECON | Unknown | | + + + + + Care Team Providers + +------+ + | Care Poultry Veterinarian Name | Role | Phone | + +------+ + | Saurav De Los Santos NP | PCP | | + +------+ + Reason for Visit Auth/Cert +--------+--------+ + + + + | Status | Reason | Specialty | Diagnoses / | Referred By | Referred To | | | | | Procedures | Contact | Contact | +--------+--------+ + + + + | | | | Diagnoses | | | | | | | Acute | | | | | | | Mylogenous | | | | | | | Leukemia | | | +--------+--------+ + + + + Encounter Details +--------+ + + + + | Date | Type | Department | Care Team | Description | +--------+ + + + + | 06/26/ | Hospital | [facility] | Leonardo, | AML (acute myeloid | | 2018 - | Encounter | [facility] | Manuel French MD [address] | leukemia) in relapse | | | | [address] [place] | [address] [place] | (HCC) | | 03/02/ | | [place] [address] | [place] [address] | | | 2017 | | [phone] | [phone] | | | | | | | | | | | | Kar Delgado | | | | | | Horacio Malik MD | | | | | | [address] | | | | | | [id number] | | | | | | [place] [address] | | | | | | [phone] | | | | | | | [...] + + + | Blood Pressure | 145/83 | 06/28/20171643 PST | + + + + | Pulse | 110 | 06/28/20171643 PST | + + + + | Temperature | 37.5 C (99.5 F) | 06/28/20171643 PST | + + + + | Respiratory Rate | 18 | 06/28/20171643 PST | + + + + | Oxygen Saturation | 92% | 06/28/20171643 PST | + + + + | Inhaled Oxygen | - | - | | Concentration | | | + + + + | Weight | 88.2 kg (194 lb 7.1 | 06/27/2017352 PST | | | oz) | | + + + + | Height | 160 cm (5' 2.99") | 06/26/20170 PST | + + + + | Body Mass Index | 34.45 | 06/27/2017352 PST | + + + + in [...] + as of this encounter Discharge Summaries Manuel Springer MD - 06/28/2017 1541 PSTFormatting of this note may be different fro m the original. Hematology/Oncology Transfer Note [place], [place] Pt. Name/Age/: Rhea Hutchison 51 y.o. 1965 Med. Record Number: [id number] Date of admission: 06/26/2017 Date of Transer: 06/28/17 Accepting Facility: [facility], Unit 14K, bed 11 Accepting provider; Dr. Salomón Delgado. The patient's primary care provider is Saurav De Los Santos NP. Identifying Statement: Rhea Hutchison is a 51 y.o. female from [address] [place] [address] with Second Relapse of Acute Myelogenous Leukemia. The patient chart and medications were reviewed in detail and the patient was seen and exam ined. 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 1. Presentation to the [facility] emergency room in [facility] on January 272015 with complaints of cough and odynophagia. Complete blood count was notable for a wh ite count of 117,000, hemoglobin 10.7 g/dL, platelet count of 51,000. She was emergently tr ansferred to the [facility] access hospital [facility] were bone marrow biopsy and aspiration at [facility] on February 15, 2016 confirmed acute myelogenous leukemia, diploid, positive for FLT -3 tyrosine kinase domain mutation (also positive for NPM1, DNMT3A, NRAS, NPM1 and TET2 muta tions). 2. Induction chemotherapy with conventional 7+3 cytarabine/idarubicin February 16, 2016 with continuous daily dasatinib (Sprycel) complicated by fungal pneumonia, neutropenic fever, hi dradenitis suppurativa, and Clostridium Difficile colitis. Repeat bone marrow biopsy on 2015 (day 28); First complete remission. 3. Cycle#1 MiDaC (1500 mg/m Cytarabine) consolidation at [facility] on March 27, 2016. 4. Cycle#2 MiDaC (1500 mg/m Cytarabine) consolidation at [facility] on May 01, 2016. 5. Cycle#3 MiDaC (1200 mg/m Cytarabine) consolidation at [facility] on May 28, 2016. 6. Cycle#4 MiDaC (1000 mg/m Cytarabine ) consolidation at [facility] on June 25, 2016. 7. Bone Marrow Biopsy and Aspiration July 23, 2016 at the [facility] in [place], [place] specimen # [id number] demonstrated ongoing complete remissio n. Molecular analysis was negative for any residual NPM1 mutation positive cells and negativ e for any FLT-3 mutation positive cells (sensitivity is 1 in 20,000). 8. CBC on December 25, 2016; WBC 5,000, Hgb 14.6 gm/dl, Hct 42.7, Platelet 138,000. 9. MRI of right hip on January 25, 2017 in anticipation of right hip replacement; numerou s subcentimeter round marrow repacing lesions within the visualized lower lumbar spine, pelv is, and femurs. 10. CT Chest/Abdomen/Pelvis on February 06, 2017; 3 cm left thyroid mass, no other suggestio n of primary neoplasm. 11. Bone scan February 08, 2017; Normal. 12. PET/CT scan on February 27, 2017; diffuse uptake about the spleen and bone marrow. 13. CBC on March 01, 2017; WBC 103,5000 (92% blasts) Hgb 13.8, Hct 41.8%, Platelet count 10,000. [id number] U/L, BUN 14 mg/dL, Scr 0.82 mg/dL. 14. Admit [facility], [facility] 03/01/2017; Chest X-ray consis tent with pulmonary leukostasis. Hydroxyurea 2 grams po q 4 hours x 3 doses with no change i n WBC. 15. Transfer to [facility]; bone marrow biopsy and aspiration were performed on February 15, 2016 , and confirmed acute myelogenous leukemia, diploid, positive for FLT-3 tyrosine kinase doma in mutation, positive for NPM1 mutation, positive for DNMT3A mutation, positive for NRAS mut ation, positive for TET mutation. 16. Induction chemotherapy with conventional 7+3 cytarabine/idarubicin chemotherapy, Octobe r 2015, with continuous daily dasatinib (Sprycel) complicated by fungal pneumonia, neutr openic fever, hidradenitis suppurativa, and Clostridium difficile colitis. 17. Bone marrow biopsy performed on day 28, February 12, 2016, demonstrated a first complete remission. 18. Cycle #1 of high-dose cytarabine consolidation at the [facility] on March 26, 2016. 19. Cycle #2 of cytarabine consolidation at the [facility] on Apr. 20. Cycle #3 of cytarabine consolidation at the [facility] in [place], [place], May 28, 2016. 21. Cycle #4 of cytarabine consolidation chemotherapy at the [facility] in [place], [place], June 25, 2016. 22. Repeat bone marrow biopsy and aspiration on July 23, 2016, at the [facility] in [place], [place], specimen #[id number] demonstrating ongo ing complete remission. Molecular analysis was negative for any residual NPM1 mutation posi tive cells and negative for any FLT-3 mutation positive cells (sensitivity is 1 in 20,000). 23. Complete blood count on December 25, 2016, hemoglobin 14.6, hematocrit 42.7%, platelet co unt 138,000, white count 5000. 24. Repeat complete blood count on March 01, 2017, white count 103,500 with 92% blasts. H emoglobin 13.8 g/dL, hematocrit 41.8%, platelet count 10,000. BUN was 14, creatinine 0.82, estimated GFR 73. LDH was 4427 units/L (upper limits of normal 215 units/L). Repeat GeneTra ils analysis; NPM1 mut positive, DNMT3A mut positive, NRAS mut positive, FLT3 TKD mut positi ve (both D835A and N841K), TET2 mut positive. 25. Status post FLAG-SAL + midostaurin reinduction March 02, 2017, with second complete r emission. 26. One Cycle of maintenance azacytidine (Vidaza) on May 06, 2017 with midostaurin, comp licated by prolonged pancytopenia. 27. Repeat bone marrow biopsy only (dry tap) June 21, 2017 ([facility] [id number]); 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 myelogenous leukemia (60%); Blasts po sitive for CD117 and CD 33, negative for CD34, CD71, CD61, CD3 and PAX-5. Current Assessment & Plan Rhea Hutchison was admitted on June 26, 2017 for management of her second relapse o f acute myelogenous leukemia. Extended bedside encounter with Rhea and her , Jhony, with included communications with [facility] provider Denisha Reno (covering for Salomón Delgado MD) as well as two communicat ions with the [facility] transfer center . Communications were made slightly more co mplicated by the fact that Rhea reported finding her certificate 10 days ago and dis covered that her birthday is actually 61. This was corrected in the [facility] electronic r ecord, however Rhea is still listed as 61 in the [facility] electronic record. I notif ied both Toshia Salinas RN at [facility] and the [facility] transfer center of this issue. Dr. Salomón Delgado has accepted Rhea Hutchison as the attending physician for hospital t o hospital transfer to [facility] when a bed is available on either the 14th or 13th floor. Rhea 's status: Chief complaint today is dyspnea, cough and pleuritic left sided chest pain. Clinical exam is notable for the fact that she is now requiring supplemental oxygen. Laboratory exam is notable for WBC 24,200-cells flagged as monocytes are likely blasts. CT chest shows left basilar atelectasis. No infiltrates are seen to suggest pulmonary leuko stasis. Assessment: Relapsed acute myelogenous leukemia. Plan; Transfer to [facility], Unit 14K, Bed 11. Dr. Salomón Delgado attending. Review of Systems: Constitutional: denies high fever or shaking chills; positive for fatigue, denies anorexia, nausea, vomiting, or weight loss Ears, Nose, Mouth, throat: Denies odynophagia, dysphagia, or tinnitus Respiratory: positive for cough, positive for left sided pleuritic chest pain. Cardiovascular: positive for dyspnea on exertion, negative for orthopnea, negative for palp itations, positive for shortness of breath GI: positive for constipation. : no dysuria, trouble voiding, or hematuria Musculoskeletal: positive for diffuse bone pain. Neurologic: negative for - headaches, numbness/tingling or visual changes Endocrine: negative for - edema Hematologic: Denies bruising or bleeding. Review of systems as above otherwise negative Scheduled Medications: Current Facility-Administered Medications Medication Dose Route Frequency Provider Last Rate Last Dose acetaminophen (TYLENOL) tablet 487.5 mg 487.5 mg Oral Q6H PRN Manuel Springer MD 487.5 mg at 06/27/17 1236 acyclovir (ZOVIRAX) tablet 800 mg 800 mg Oral Daily Manuel Springer MD 800 mg at 06/28/17 0846 albuterol 2.5 mg/3 mL nebulizer solution 2.5 mg 2.5 mg Nebulization RT Q4H PRN Manuel Springer MD calcium carbonate (TUMS) chewable tablet 500 mg 500 mg Oral PRN Manuel Springer MD cefTAZidime (FORTAZ, TAZICEF) 2 g in sodium chloride 0.9% 50 mL IVPB 2 g Intravenous 3 times per day Manuel Springer MD 140 mL/hr at 06/28/17 1423 2 g at 06/28/17 1423 docusate sodium (COLACE) capsule 100 mg 100 mg Oral BID PRN Manuel Springer MD 100 mg at 06/28/17 0848 dronabinol (MARINOL) capsule 10 mg 10 mg Oral Daily Manuel Springer MD 10 mg a t 06/28/17 0845 DULoxetine (CYMBALTA) DR capsule 90 mg 90 mg Oral Daily Manuel Springer MD 90 mg at 06/28/17 0846 hydrocortisone 1% cream Topical TID PRN Manuel Springer MD HYDROmorphone (DILAUDID) injection 0.25-1 mg 0.25-1 mg Intravenous Q2H PRN Manuel vazquez MD 0.5 mg at 06/27/17 0139 hydroxyurea (HYDREA) capsule 2,000 mg 2,000 mg Oral 2 times per day Manuel weber MD 2,000 mg at 06/28/17 0848 ipratropium (ATROVENT) 500 mcg/2.5 mL nebulizer solution 500 mcg 500 mcg Nebulization RT Q6H Manuel Springer MD 500 mcg at 06/28/17 1435 levothyroxine (SYNTHROID) tablet 50 mcg 50 mcg Oral QAM AC Manuel Springer MD 50 mcg at 06/28/17 0630 LORazepam (ATIVAN) tablet 0.5 mg 0.5 mg Oral Q8H PRN Manuel Springer MD magnesium hydroxide (MILK OF MAGNESIA) 400 mg/5 mL suspension 30 mL 30 mL Oral Nightly PRN Manuel Springer MD 30 mL at 06/27/17 2135 micafungin (MYCAMINE) 100 mg in sodium chloride 0.9% 100 mL IVPB 100 mg Intravenous Q2 4H Manuel Springer MD 110 mL/hr at 06/28/17 1316 100 mg at 06/28/17 1316 ondansetron (ZOFRAN ODT) disintegrating tablet 4 mg 4 mg Oral Q12H PRN Manuel osborne MD 4 mg at 06/27/17 0136 oxybutynin (DITROPAN XL) ER tablet 10 mg 10 mg Oral Daily Manuel Springer MD 1 0 mg at 06/28/17 0846 oxyCODONE (ROXICODONE) tablet 5-15 mg 5-15 mg Oral Q3H PRN Manuel Springer MD 10 mg at 06/28/17 1431 polyethylene glycol (MIRALAX) powder 17 g 17 g Oral Daily PRN Manuel Springer MD 17 g at 06/28/17 0843 senna (SENOKOT) tablet 8.6 mg 8.6 mg Oral BID PRN Manuel Springer MD 8.6 mg at 06/28/17 0848 sodium chloride 0.9% (NS) infusion Intravenous Continuous Manuel Springer MD 50 mL/hr at 06/28/17 1016 tiZANidine (ZANAFLEX) tablet 4 mg 4 mg Oral Q6H PRN Manuel Springer MD traZODone (DESYREL) tablet 100 mg 100 mg Oral Nightly Manuel Springer MD 100 m g at 06/27/17 2134 Allergies: Allergy: Allergies Allergen Reactions Morphine Swelling and Rash Other reaction(s): No Reaction Indicated Rash and facial swelling Rash and facial swelling Cefepime Rash Past Medical and Surgical History, Social History and Problems: Past Medical History: Diagnosis Date Anxiety Bronchitis Cancer (HCC) Chronic constipation COPD (chronic obstructive pulmonary disease) (HCC) Depression Hyperinflation of lungs Hypothyroidism Insomnia Leukemia in remission ([facility]) Posttraumatic stress disorder Right buttock pain 12/12/2016 Sciatica Thyroid disorder Past Surgical History: Procedure Laterality Date BONE MARROW BIOPSY N/A 07/23/2016 Procedure: BIOPSY / ASPIRATION BONE MARROW; Surgeon: Manuel Springer MD; Location: [facility] SHORT STAY CARPAL TUNNEL RELEASE 2004 [facility]; [place] CHOLECYSTECTOMY 06/2013 [facility]; [place]. JOINT REPLACEMENT 01/2014 Knee replacement KNEE ARTHROPLASTY Right 01/2014 [facility]; [place]. PARTIAL HYSTERECTOMY 1989 [facility]; [place]. 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 Chronic constipation Depression Thyroid nodule Family History Problem Relation Age of Onset Cancer Mother colon, brain Arthritis Mother Gout Mother Heart disease Mother Hypertension Mother Alcohol abuse Father High blood pressure Father Gout Father Heart disease Father High blood pressure Paternal Grandmother Diabetes Paternal Grandmother Gout Paternal Grandmother No Known Problems Maternal Grandmother No Known Problems Maternal Grandfather No Known Problems Paternal Grandfather Objectives: Temp: 37.1 C (98.8 F) BP: 118/67 Pulse: 99 Resp: 17 SpO2: 92 % on Min/Max Temp past 24 hours:Temp Av.9 C (98.4 F) Min: 36.3 C (97.3 F) Max: 3 7.4 C (99.3 F) Intake/Output Summary (Last 24 hours) at 06/28/17 1541 Last data filed at 06/28/17 1400 Gross per 24 hour Intake 2035 ml Output 2200 ml Net -165 ml Wt. Admission: Weight: 86.2 kg (190 lb 0.6 oz) Wt. Current: Weight: 88.2 kg (194 lb 7.1 oz) Wt Readings from Last 3 Encounters: 06/27/17 88.2 kg (194 lb 7.1 oz) 03/02/17 91.4 kg (201 lb 8 oz) 12/12/16 88.5 kg (195 lb) Physical Exam: General: The patient is alert and oriented. No acute distress. Eyes: There is a left sub-conjunctival hemorrhage, improved. Sclera are otherwise anicteri c. ENMT: Oropharynx fee of lesions, mucous membranes moist. There are no mucosal petechiae. T here is generalized erythema of the face. Cardiovascular: Rapid rate and regular rhythm, no rubs, gallops, or murmurs. Lungs: Left basilar rales. Chest: Patient does not have a port-a-cath. Abdomen: Soft, nontender, no hepatospenomegaly. No palpable masses. Bowel sounds present. Extremities: Nontender, no erythema, no edema. Her right upper extremity double lumen PICC line is clean, dry and intact. Skin: Ecchymoses on the inner right thigh, stable. Bilateral lower extremity petechiae, st able. Lymph: No palpable nodes in the neck, supraclavicular fossa, axilla or groin. Neurological: Cranial nerves are intact. Voice is articulate. Muscular/Skeletal: No acute bony tenderness. No evidence of sarcopenia. Psychiatric: Normal mood and affect. ECOG Performance Status [] 0 [] 1 [x] 2 []3 [] 4 ECOG PERFORMANCE STATUS* Grade ECOG Karnofsky 0 Fully active, able to carry on all pre-disease performance without restriction. 90 - 100 1 Restricted in physically strenuous activity but ambulatory and able to carry out work of a light or sedentary nature, e.g., light house work, office work 70 - 80 2 Ambulatory and capable of all selfcare but unable to carry out any work activ ities. Up and about more than 50% of waking hours 50 - 60 3 Capable of only limited selfcare, confined to bed or chair more than 50% of w aking hours 30 - 40 4 Completely disabled. Cannot carry on any selfcare. Totally confined to bed or chair 10 - 20 * As published in Am. J. Clin. Oncol.: Cuauhtemoc Chavez., Devorah, RDanielH., Yariel Arevalo., Leonel Zurita., Manohar, TMarcelina., Clifford, JeromyT., Chica, P .P.: Toxicity And Response Criteria Of The Eastern Cooperative Oncology Group. Am J Clin Onc ol 5:649-655, 1982. The ECOG Performance Status is in the public domain therefore available for public use. To duplicate the scale, please cite the reference above and credit the Eastern Cooperative Onco logy Group, Manuel Cheema M.D., Group Chair Diagnostic studies: Available data and images were reviewed personally. See reports. Significant results and findings are addressed here or in the Assessment and Plan. Results for YESENIARHEA ( ) as of 06/28/2017 15:41 Ref. Range 06/28/2017 03:31 WBC Latest Ref Range: 4.0 - 11.0 K/uL 24.2 (H) WBC morphology Unknown Normal RBC COUNT Latest Ref Range: 3.70 - 5.20 M/uL 2.68 (L) Hgb Latest Ref Range: 11.5 - 16.0 g/dL 7.8 (L) Hct, Final Latest Ref Range: 34.0 - 47.0 % 24.3 (L) MCV Latest Ref Range: 83.0 - 101.0 fL 90.5 MCH Latest Ref Range: 28.0 - 35.0 pg 29.1 MCHC Latest Ref Range: 32.0 - 36.0 g/dL 32.2 RDW-CV Latest Ref Range: <15.0 % 19.3 (H) Platelet Count Latest Ref Range: 140 - 440 K/uL 13 (LL) PLT MORPHOLOGY Unknown Normal MPV Latest Units: fL 10.0 Absolute Neutrophils Latest Ref Range: 1.80 - 8.50 K/uL 1.00 (L) Absolute Lymphocytes Latest Ref Range: 0.60 - 3.20 K/uL 1.00 Absolute Monocytes Latest Ref Range: 0.00 - 1.00 K/uL 22.20 (H) Absolute Eosinophils Latest Ref Range: 0.00 - 0.40 K/uL 0.00 Absolute Basophils Latest Ref Range: 0.00 - 0.10 K/uL 0.00 % Neutrophils Latest Ref Range: 45.0 - 82.0 % 4.3 (L) % Lymphocytes Latest Ref Range: 20.0 - 45.0 % 4.0 (L) % Monocytes Latest Ref Range: 4.0 - 12.0 % 91.5 (H) % Eosinophils Latest Ref Range: 0.0 - 5.0 % 0.0 % Basophils Latest Ref Range: 0.0 - 1.0 % 0.2 RBC morphology Unknown Normal NA Latest Ref Range: 136 - 149 mmol/L 134 (L) K Latest Ref Range: 3.5 - 5.1 mmol/L 3.6 Chloride Latest Ref Range: 98 - 109 mmol/L 99 Carbon dioxide Latest Ref Range: 24 - 31 mmol/L 30 ANION GAP Latest Ref Range: 3 - 16 mmol/L 5 GLUCOSE Latest Ref Range: 70 - 109 mg/dL 120 (H) BUN Latest Ref Range: 7 - 18 mg/dL 3 (L) Creatinine Latest Ref Range: 0.60 - 1.30 mg/dL 0.66 BUN/CREA Unknown 4.5 EGFR IF NOT Latest Ref Range: >=60 mL/min/1.73m2 >60 Calcium Latest Ref Range: 8.3 - 10.5 mg/dL 8.2 (L) PHOSPHORUS Latest Ref Range: 2.5 - 4.6 mg/dL 3.5 URIC ACID Latest Ref Range: 2.6 - 7.2 mg/dL 5.[address] 06/28/2017 11:53 AM CLINICAL HISTORY: AML, oxygen dependence, eval for pulmonary leukostasis or fungal pneumonia COMPARISON: CT May 2016 and more remote exams TECHNIQUE: Axial unenhanced images are performed through the chest, along with multiplanar reformations. FINDINGS: A 2.9 cm rounded hypoattenuating lesion is again visible in the left thyroid lobe and is similar to previous. A right upper extremity PICC terminates near the cavoatrial junction. Trace pericardial fluid is again visible. The mediastinum otherwise has an unremarkable unenhanced appearance. No pathologic lymph node enlargement is evident. A very small partially loculated appearing left basilar pleural effusion is present. There is atelectasis/consolidation within the lingula and mid to basilar left lower lobe. Minimal dependent density and bandlike opacity in the right lower lobe and also involving the right middle lobe favors atelectasis. The upper lungs are clear. No nodule or airway abnormality is evident. There is no pneumothorax. A rounded calcific density persists along the posterior aspect of the right glenohumeral joint, potentially reflecting a loose body. There is multilevel thoracic spondylosis. The imaged spleen is now enlarged, measuring at least 13 cm long axis. Imaged upper abdomen is otherwise unremarkable. IMPRESSION - 1. VERY SMALL BUT PARTIALLY LOCULATED APPEARING LEFT PLEURAL EFFUSION WITH ATELECTASIS/CONSOLIDATION INVOLVING THE LINGULA AND LEFT LOWER LOBE. 2. SPLENOMEGALY. 3. CHRONIC LEFT THYROID LESION. Dictated and Signed by: Jacob Jamison MD Electronically signed: 06/28/2017 12:59 PM Results for RHEA HUTCHISON ( ) as of 06/28/2017 15:41 Ref. Range 06/26/2017 17:46 Color, UA Latest Ref Range: Light Yellow, Yellow, Straw Yellow Clarity, UA Latest Ref Range: Clear Hazy (A) Specific [place] Latest Ref Range: 1.001 - 1.030 1.017 PH UA Latest Ref Range: 5.0 - 8.0 7.0 Glucose, UA Latest Ref Range: Negative Negative Ketones, UA Latest Ref Range: Negative Negative Protein, UA Latest Ref Range: Negative Negative Blood, UA Latest Ref Range: Negative Negative Bilirubin, UA Latest Ref Range: Negative Negative Nitrite, UA Latest Ref Range: Negative Negative UROBILINOGEN UA Latest Ref Range: 0.2 mg/dL, 1.0 mg/dL, Negative Negative Leukocyte esterase, UA Latest Ref Range: Negative Negative WBC UA Latest Ref Range: 0 - 2 /HPF 0-2 RBC UA Latest Ref Range: 0 - 2 /HPF 0-2 Squamous epithelial, UA Latest Ref Range: 0 - 2 /LPF 5-10 (A) BACTERIA UA Latest Ref Range: Negative /HPF Negative Mucus, UA Latest Ref Range: Negative /LPF Present (A) URINE COMMENT Unknown Urine Culture Not... Pharmacovigilance: Palliative Care: Procedure: MANUEL SPRINGER MD Portions of this chart may have been created with [email or web address] voice recognition software. Occasi onal wrong-word or sound-alike substitutions may have occurred due to the inherent esparza itations of voice recognition software. Please read the chart carefully and recognize, using context, where these substitutions have occurred.in this encounter Medications at Time of Discharge + + +--------+---------+ + + | Medication | Sig. | Disp. | Refills | Start | End Date | | | | | | Date | | + + +--------+---------+ + + | acetaminophen | Take 500 mg by mouth | | | | | | (TYLENOL) 500 mg | every 6 hours as | | | | | | tablet | needed for Pain | | | | | | | (Takes PRN with | | | | | | | opiod). | | | | | + + +--------+---------+ + + | acyclovir | Take 800 mg by mouth | | | 05/25/19 | | | (ZOVIRAX) 800 mg | Daily. | | | 17 | | | tablet | | | | | | + + +--------+---------+ + + | albuterol | Inhale into the | | | 03/13/20 | | | (VENTOLIN HFA) 90 | lungs. | | | 16 | | | mcg/puff inhaler | | | | | | + + +--------+---------+ + + | amLODIPine | Take 1 tablet by | | | 06/03/19 | | | (NORVASC) 10 MG | mouth Daily. | | | 18 | | | tablet | | | | | | + + +--------+---------+ + + | calcium carbonate | Take 1 tablet by | | | | | | (TUMS) 500 mg | mouth as needed for | | | | | | chewable tablet | Heartburn. | | | | | + + +--------+---------+ + + | DULoxetine | Take 90 mg by mouth | | | | | | (CYMBALTA) [address] | Daily. | | | | | | capsule | | | | | | + + +--------+---------+ + + | hydrocortisone 1% | Apply topically 3 | | | | | | cream | times daily as | | | | | | | needed (hemorrhoid | | | | | | | pain). | | | | | + + +--------+---------+ + + | levothyroxine | Take 50 mcg by mouth | | | | | | (SYNTHROID, | every morning | | | | | | LEVOTHROID) 50 mcg | (before breakfast). | | | | | | tablet | | | | | | + + +--------+---------+ + + | lisinopril | Take 1 tablet by | | | 05/24/19 | | | (PRINIVIL, ZESTRIL) | mouth Daily. | | | 18 | | | 5 mg tablet | | | | | | + + +--------+---------+ + + | LORazepam (ATIVAN) | Take 1 tablet by | 60 | 0 | 06/03/19 | | | 0.5 mg | mouth every 8 hours | tablet | | 18 | | | tabletIndications: | as needed for | | | | | | Nausea | Anxiety or Insomnia | | | | | | | (nausea). | | | | | + + +--------+---------+ + + | NOXAFIL [address] | Take by mouth. | | | 06/17/19 | | | tablet | | | | 18 | | + + +--------+---------+ + + | omeprazole | Take 1 capsule by | | | 06/11/19 | | | (PRILOSEC) 20 mg | mouth Daily. | | | 18 | | | capsule | | | | | | + + +--------+---------+ + + | ondansetron | Take 4 mg by mouth | | | 03/13/20 | | | (ZOFRAN) 4 mg tablet | every 12 hours as | | | 16 | | | | needed. | | | | | + + +--------+---------+ + + | oxybutynin | Take 10 mg by mouth | | | 01/23/20 | | | (DITROPAN-XL) 10 MG | Daily. | | | 16 | | | 24 hr tablet | | | | | | + + +--------+---------+ + + | oxyCODONE | Take 1-3 tablets by | | | 06/19/19 | | | (ROXICODONE) 5 mg | mouth every 6 hours | | | 18 | | | tablet | as needed. | | | | | + + +--------+---------+ + + | prochlorperazine | Take 1-2 tablets by | | | 05/24/19 | | | (COMPAZINE) 5 mg | mouth 4 times daily | | | 18 | | | tablet | as needed. | | | | | + + +--------+---------+ + + | salmeterol | Inhale 1 puff into | | | 08/10/19 | | | (SEREVENT DISKUS) 50 | the lungs Daily. | | | 16 | | | mcg/puff diskus | | | | | | | inhaler | | | | | | + + +--------+---------+ + + | tiotropium | Inhale 18 mcg into | | | | | | (SPIRIVA) 18 mcg | the lungs Daily. | | | | | | inhalation capsule | | | | | | + + +--------+---------+ + + | tiZANidine | TAKE ONE TABLET BY | 30 | 1 | 01/29/20 | | | (ZANAFLEX) 4 mg | MOUTH EVERY 8 HOURS | tablet | | 17 | | | tablet | NEEDED FOR MUSCLE | | | | | | | SPASMS | | | | | + + +--------+---------+ + + | traZODone | Take 100 mg by mouth | | | | | | (DESYREL) 100 mg | nightly. | | | | | | tablet | | | | | | + + +--------+---------+ + + | dronabinol | Take by mouth. | | | 03/30/20 | | | (MARINOL) 10 MG | | | | 16 | 8 | | capsule | | | | | | + + +--------+---------+ + + | | Take 1 tablet by | | | | | | sulfamethoxazole-tri | mouth 2 times daily. | | | | 8 | | methoprim (BACTRIM | | | | | | | DS) 800-160 mg per | | | | | | | tablet | | | | | | + + +--------+---------+ + + as of this encounter Progress Notes Manuel Springer MD - 06/28/2017 1248 PSTFormatting of this note may be different fro m the original. Hematology/Oncology Daily Progress Note [facility] Pt. Name/Age/: Rhea Hutchison 51 y.o. 1965 Med. Record Number: [id number] Date of admission: 06/26/2017 Today's Date: 06/28/17 Location: [address] [place] [address] The patient's primary care provider is Saurav De Los Santos NP. Identifying Statement: Rhea Hutchison is a 51 y.o. female from [address] [place] [address] with a second relapse of acute myelogenous leukemia. The patient chart and medications were reviewed in detail and the patient was seen and exam ined. 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 1. Presentation to the [facility] emergency room in [facility] on January 272015 with complaints of cough and odynophagia. Complete blood count was notable for a wh ite count of 117,000, hemoglobin 10.7 g/dL, platelet count of 51,000. She was emergently tr [facility] [place] were bone marrow biopsy and aspiration at [facility] on February 15, 2016 confirmed acute myelogenous leukemia, diploid, positive for FLT -3 tyrosine kinase domain mutation (also positive for NPM1, DNMT3A, NRAS, NPM1 and TET2 muta tions). 2. Induction chemotherapy with conventional 7+3 cytarabine/idarubicin February 16, 2016 with continuous daily dasatinib (Sprycel) complicated by fungal pneumonia, neutropenic fever, hi dradenitis suppurativa, and Clostridium Difficile colitis. Repeat bone marrow biopsy on 2015 (day 28); First complete remission. 3. Cycle#1 MiDaC (1500 mg/m Cytarabine) consolidation at [facility] on March 27, 2016. 4. Cycle#2 MiDaC (1500 mg/m Cytarabine) consolidation at [facility] on May 01, 2016. 5. Cycle#3 MiDaC (1200 mg/m Cytarabine) consolidation at [facility] on May 28, 2016. 6. Cycle#4 MiDaC (1000 mg/m Cytarabine ) consolidation at [facility] on June 25, 2016. 7. Bone Marrow Biopsy and Aspiration July 23, 2016 at the [facility] in [place], [place] specimen # [id number] demonstrated ongoing complete remissio n. Molecular analysis was negative for any residual NPM1 mutation positive cells and negativ e for any FLT-3 mutation positive cells (sensitivity is 1 in 20,000). 8. CBC on December 25, 2016; WBC 5,000, Hgb 14.6 gm/dl, Hct 42.7, Platelet 138,000. 9. MRI of right hip on January 25, 2017 in anticipation of right hip replacement; numerou s subcentimeter round marrow repacing lesions within the visualized lower lumbar spine, pelv is, and femurs. 10. CT Chest/Abdomen/Pelvis on February 06, 2017; 3 cm left thyroid mass, no other suggestio n of primary neoplasm. 11. Bone scan February 08, 2017; Normal. 12. PET/CT scan on February 27, 2017; diffuse uptake about the spleen and bone marrow. 13. CBC on March 01, 2017; WBC 103,5000 (92% blasts) Hgb 13.8, Hct 41.8%, Platelet count 10,000. [id number] U/L, BUN 14 mg/dL, Scr 0.82 mg/dL. 14. Admit [facility], [facility] 03/01/2017; Chest X-ray consis tent with pulmonary leukostasis. Hydroxyurea 2 grams po q 4 hours x 3 doses with no change i n WBC. 15. Transfer to [facility]; bone marrow biopsy and aspiration were performed on February 15, 2016 , and confirmed acute myelogenous leukemia, diploid, positive for FLT-3 tyrosine kinase doma in mutation, positive for NPM1 mutation, positive for DNMT3A mutation, positive for NRAS mut ation, positive for TET mutation. 16. Induction chemotherapy with conventional 7+3 cytarabine/idarubicin chemotherapy, 2015, with continuous daily dasatinib (Sprycel) complicated by fungal pneumonia, neutr openic fever, hidradenitis suppurativa, and Clostridium difficile colitis. 17. Bone marrow biopsy performed on day 28February 12, 2016, demonstrated a first complete remission. 18. Cycle #1 of high-dose cytarabine consolidation at the [facility] on March 26, 2016. 19. Cycle #2 of cytarabine consolidation at the [facility] on Apr. 20. Cycle #3 of cytarabine consolidation at the [facility] in [place], [place], May 28, 2016. 21. Cycle #4 of cytarabine consolidation chemotherapy at the [facility] in [place], [place], June 25, 2016. 22. Repeat bone marrow biopsy and aspiration on July 23, 2016, at the [facility] in [place], [place], specimen #[id number] demonstrating ongo ing complete remission. Molecular analysis was negative for any residual NPM1 mutation posi tive cells and negative for any FLT-3 mutation positive cells (sensitivity is 1 in 20,000). 23. Complete blood count on December 25, 2016, hemoglobin 14.6, hematocrit 42.7%, platelet co unt 138,000, white count 5000. 24. Repeat complete blood count on March 01, 2017, white count 103,500 with 92% blasts. H emoglobin 13.8 g/dL, hematocrit 41.8%, platelet count 10,000. BUN was 14, creatinine 0.82, estimated GFR 73. LDH was 4427 units/L (upper limits of normal 215 units/L). Repeat GeneTra ils analysis; NPM1 mut positive, DNMT3A mut positive, NRAS mut positive, FLT3 TKD mut positi ve (both D835A and N841K), TET2 mut positive. 25. Status post FLAG-SAL + midostaurin reinduction March 02, 2017, with second complete r emission. 26. One Cycle of maintenance azacytidine (Vidaza) on May 06, 2017 with midostaurin, comp licated by prolonged pancytopenia. 27. Repeat bone marrow biopsy only (dry tap) June 21, 2017 ([facility] [id number]); 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 myelogenous leukemia (60%); Blasts po sitive for CD117 and CD 33, negative for CD34, CD71, CD61, CD3 and PAX-5. Current Assessment & Plan Rhea Hutchison was admitted on June 26, 2017 for management of her second relapse o f acute myelogenous leukemia. Extended bedside encounter with Rhea and her , Jhony, with included communications with [facility] provider Denisha Reno (covering for Salomón Delgado MD) as well as two communicat ions with the [facility] transfer center . Communications were made slightly more co mplicated by the fact that Rhea reported finding her certificate 10 days ago and dis covered that her birthday is actually [birth year]. This was corrected in the [facility] electronic r ecord, however Rhea is still listed as 61 in the [facility] electronic record. I notif ied both Toshia Salinas RN at [facility] and the [facility] transfer center of this issue. Dr. Salomón Delgado has accepted Rhea Hutchison as the attending physician for hospital t o hospital transfer to [facility] when a bed is available on either the 14th or 13th floor. Commun ications with the [facility] transfer center and Dr. Denisha Reno confirm that there are no beds av ailable at [facility] today. Dr. Reno was updated on Rhea's status: Chief complaint today is dyspnea, cough and pleuritic left sided chest pain. Clinical exam is notable for the fact that she is now requiring supplemental oxygen. Laboratory exam is notable for WBC 24,200-cells flagged as monocytes are likely blasts. CT chest shows left basilar atelectasis. No infiltrates are seen to suggest pulmonary leuko stasis. Assessment: Relapsed acute myelogenous leukemia. Plan; Care discussed with Dr. Denisha Reno at [facility] (covering for Dr. Delgado, who has accep sharon patient in transfer). Patient will receive hydroxyurea 2000 mg orally twice a day today. She will otherwise carlita nue on full supportive care with fluids, antibiotics, antifungals, anti-virals and blood pro ducts until a bed is available for her at [facility]. The overall treatment plan in to try to reinduce remission either with an innovative protoc ol or a standard relapse protocol, followed by allogeneic stem cell transplantation from her HLA-identical brother. Dr. Luís Cooper is covering this weekend. Review of Systems: Constitutional: denies high fever or shaking chills; positive for fatigue, denies anorexia, nausea, vomiting, or weight loss Ears, Nose, Mouth, throat: Denies odynophagia, dysphagia, or tinnitus Respiratory: positive for cough, positive for left sided pleuritic chest pain. Cardiovascular: positive for dyspnea on exertion, negative for orthopnea, negative for palp itations, positive for shortness of breath GI: positive for constipation. : no dysuria, trouble voiding, or hematuria Musculoskeletal: positive for diffuse bone pain. Neurologic: negative for - headaches, numbness/tingling or visual changes Endocrine: negative for - edema Hematologic: Denies bruising or bleeding. Review of systems as above otherwise negative Scheduled Medications: Current Facility-Administered Medications Medication Dose Route Frequency Provider Last Rate Last Dose acetaminophen (TYLENOL) tablet 487.5 mg 487.5 mg Oral Q6H PRN Manuel Springer MD 487.5 mg at 06/27/17 1236 acyclovir (ZOVIRAX) tablet 800 mg 800 mg Oral Daily Manuel Springer MD 800 mg at 06/28/17 0846 albuterol 2.5 mg/3 mL nebulizer solution 2.5 mg 2.5 mg Nebulization RT Q4H PRN Mnauel Springer MD calcium carbonate (TUMS) chewable tablet 500 mg 500 mg Oral PRN Manuel Springer MD cefTAZidime (FORTAZ, TAZICEF) 2 g in sodium chloride 0.9% 50 mL IVPB 2 g Intravenous 3 times per day Manuel Springer MD 140 mL/hr at 06/28/17 0627 2 g at 06/28/17 0627 docusate sodium (COLACE) capsule 100 mg 100 mg Oral BID PRN Manuel Springer MD 100 mg at 06/28/17 0848 dronabinol (MARINOL) capsule 10 mg 10 mg Oral Daily Manuel Springer MD 10 mg a t 06/28/17 0845 DULoxetine (CYMBALTA) DR capsule 90 mg 90 mg Oral Daily Manuel Springer MD 90 mg at 06/28/17 0846 hydrocortisone 1% cream Topical TID PRN Manuel Springer MD HYDROmorphone (DILAUDID) injection 0.25-1 mg 0.25-1 mg Intravenous Q2H PRN Manuel vazquez MD 0.5 mg at 06/27/17 0139 hydroxyurea (HYDREA) capsule 2,000 mg 2,000 mg Oral 2 times per day Manuel weber MD 2,000 mg at 06/28/17 0848 ipratropium (ATROVENT) 500 mcg/2.5 mL nebulizer solution 500 mcg 500 mcg Nebulization RT Q6H Manuel Springer MD 500 mcg at 06/28/17 0811 levothyroxine (SYNTHROID) tablet 50 mcg 50 mcg Oral QAM AC Manuel Springer MD 50 mcg at 06/28/17 0630 LORazepam (ATIVAN) tablet 0.5 mg 0.5 mg Oral Q8H PRN Manuel Springer MD magnesium hydroxide (MILK OF MAGNESIA) 400 mg/5 mL suspension 30 mL 30 mL Oral Nightly PRN Manuel Springer MD 30 mL at 06/27/17 2135 micafungin (MYCAMINE) 100 mg in sodium chloride 0.9% 100 mL IVPB 100 mg Intravenous Q2 4H Manuel Springer MD 110 mL/hr at 06/27/17 1439 100 mg at 06/27/17 1439 ondansetron (ZOFRAN ODT) disintegrating tablet 4 mg 4 mg Oral Q12H PRN Manuel osborne MD 4 mg at 06/27/17 0136 oxybutynin (DITROPAN XL) ER tablet 10 mg 10 mg Oral Daily Manuel Springer MD 1 0 mg at 06/28/17 0846 oxyCODONE (ROXICODONE) tablet 5-15 mg 5-15 mg Oral Q3H PRN Manuel Springer MD 10 mg at 06/28/17 1113 polyethylene glycol (MIRALAX) powder 17 g 17 g Oral Daily PRN Manuel Springer MD 17 g at 06/28/17 0843 senna (SENOKOT) tablet 8.6 mg 8.6 mg Oral BID PRN Manuel Springer MD 8.6 mg at 06/28/17 0848 sodium chloride 0.9% (NS) infusion Intravenous Continuous Manuel Springer MD 50 mL/hr at 06/28/17 1016 tiZANidine (ZANAFLEX) tablet 4 mg 4 mg Oral Q6H PRN Manuel Springer MD traZODone (DESYREL) tablet 100 mg 100 mg Oral Nightly Manuel Springer MD 100 m g at 06/27/17 2134 Allergies: Allergy: Allergies Allergen Reactions Morphine Swelling and Rash Other reaction(s): No Reaction Indicated Rash and facial swelling Rash and facial swelling Cefepime Rash Past Medical and Surgical History, Social History and Problems: Past Medical History: Diagnosis Date Anxiety Bronchitis Cancer (HCC) Chronic constipation COPD (chronic obstructive pulmonary disease) ([facility]) Depression Hyperinflation of lungs Hypothyroidism Insomnia Leukemia in remission ([facility]) Posttraumatic stress disorder Right buttock pain 12/12/2016 Sciatica Thyroid disorder Past Surgical History: Procedure Laterality Date BONE MARROW BIOPSY N/A 07/23/2016 Procedure: BIOPSY / ASPIRATION BONE MARROW; Surgeon: Manuel Springer MD; Location: [facility] SHORT STAY CARPAL TUNNEL RELEASE 2004 [facility]; [facility] CHOLECYSTECTOMY 06/2013 [facility]; [place] [facility]. JOINT REPLACEMENT 01/2014 Knee replacement KNEE ARTHROPLASTY Right 01/2014 [facility]; [place] [facility]. PARTIAL HYSTERECTOMY 1989 [facility]; [place] [facility]. 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 Chronic constipation Depression Thyroid nodule Family History Problem Relation Age of Onset Cancer Mother colon, brain Arthritis Mother Gout Mother Heart disease Mother Hypertension Mother Alcohol abuse Father High blood pressure Father Gout Father Heart disease Father High blood pressure Paternal Grandmother Diabetes Paternal Grandmother Gout Paternal Grandmother No Known Problems Maternal Grandmother No Known Problems Maternal Grandfather No Known Problems Paternal Grandfather Objectives: Temp: 36.9 C (98.4 F) BP: 120/70 Pulse: 87 Resp: 16 SpO2: 97 % on Min/Max Temp past 24 hours:Temp Av.6 C (97.9 F) Min: 35.8 C (96.5 F) Max: 3 7.4 C (99.3 F) Intake/Output Summary (Last 24 hours) at 06/28/17 1248 Last data filed at 06/28/17 1200 Gross per 24 hour Intake 2200 ml Output 2200 ml Net 0 ml Wt. Admission: Weight: 86.2 kg (190 lb 0.6 oz) Wt. Current: Weight: 88.2 kg (194 lb 7.1 oz) Wt Readings from Last 3 Encounters: 06/27/17 88.2 kg (194 lb 7.1 oz) 03/02/17 91.4 kg (201 lb 8 oz) 12/12/16 88.5 kg (195 lb) Physical Exam: General: The patient is alert and oriented. No acute distress. Eyes: There is a left sub-conjunctival hemorrhage, improved. Sclera are otherwise anicteri c. ENMT: Oropharynx fee of lesions, mucous membranes moist. There are no lower extremity petec hiae. Cardiovascular: Rapid rate and regular rhythm, no rubs, gallops, or murmurs. Lungs: Left basilar rales. Chest: Patient does not have a port-a-cath. Abdomen: Soft, nontender, no hepatospenomegaly. No palpable masses. Bowel sounds present. Extremities: Nontender, no erythema, no edema. Her right upper extremity double lumen PICC line is clean, dry and intact. Skin: Ecchymoses on the inner right thigh, stable. Bilateral lower extremity petechiae, st able. Lymph: No palpable nodes in the neck, supraclavicular fossa, axilla or groin. Neurological: Cranial nerves are intact. Voice is articulate. Muscular/Skeletal: No acute bony tenderness. No evidence of sarcopenia. Psychiatric: Normal mood and affect. ECOG Performance Status [] 0 [] 1 [x] 2 []3 [] 4 ECOG PERFORMANCE STATUS* Grade ECOG Karnofsky 0 Fully active, able to carry on all pre-disease performance without restriction. 90 - 100 1 Restricted in physically strenuous activity but ambulatory and able to carry out work of a light or sedentary nature, e.g., light house work, office work 70 - 80 2 Ambulatory and capable of all selfcare but unable to carry out any work activ ities. Up and about more than 50% of waking hours 50 - 60 3 Capable of only limited selfcare, confined to bed or chair more than 50% of w aking hours 30 - 40 4 Completely disabled. Cannot carry on any selfcare. Totally confined to bed or chair 10 - 20 * As published in Am. J. Clin. Oncol.: Cuauhtemoc Chavez., Devorah, RDanielH., Yariel Arevalo., Leonel Zurita., Manohar, TMarcelina., Matthew Horton., Chica, P .P.: Toxicity And Response Criteria Of The Eastern Cooperative Oncology Group. Am J Clin Onc ol 5:649-655, 1982. The ECOG Performance Status is in the public domain therefore available for public use. To duplicate the scale, please cite the reference above and credit the Eastern Cooperative Onco logy Group, Manuel Cheema M.D., Group Chair Diagnostic studies: Available data and images were reviewed personally. See reports. Significant results and findings are addressed here or in the Assessment and Plan. Results for RHEA HUTCHISON ( ) as of 06/28/2017 12:22 Ref. Range 06/28/2017 03:31 WBC Latest Ref Range: 4.0 - 11.0 K/uL 24.2 (H) WBC morphology Unknown Normal RBC COUNT Latest Ref Range: 3.70 - 5.20 M/uL 2.68 (L) Hgb Latest Ref Range: 11.5 - 16.0 g/dL 7.8 (L) Hct, Final Latest Ref Range: 34.0 - 47.0 % 24.3 (L) MCV Latest Ref Range: 83.0 - 101.0 fL 90.5 MCH Latest Ref Range: 28.0 - 35.0 pg 29.1 MCHC Latest Ref Range: 32.0 - 36.0 g/dL 32.2 RDW-CV Latest Ref Range: <15.0 % 19.3 (H) Platelet Count Latest Ref Range: 140 - 440 K/uL 13 (LL) PLT MORPHOLOGY Unknown Normal MPV Latest Units: fL 10.0 Absolute Neutrophils Latest Ref Range: 1.80 - 8.50 K/uL 1.00 (L) Absolute Lymphocytes Latest Ref Range: 0.60 - 3.20 K/uL 1.00 Absolute Monocytes Latest Ref Range: 0.00 - 1.00 K/uL 22.20 (H) Absolute Eosinophils Latest Ref Range: 0.00 - 0.40 K/uL 0.00 Absolute Basophils Latest Ref Range: 0.00 - 0.10 K/uL 0.00 % Neutrophils Latest Ref Range: 45.0 - 82.0 % 4.3 (L) % Lymphocytes Latest Ref Range: 20.0 - 45.0 % 4.0 (L) % Monocytes Latest Ref Range: 4.0 - 12.0 % 91.5 (H) % Eosinophils Latest Ref Range: 0.0 - 5.0 % 0.0 % Basophils Latest Ref Range: 0.0 - 1.0 % 0.2 RBC morphology Unknown Normal NA Latest Ref Range: 136 - 149 mmol/L 134 (L) K Latest Ref Range: 3.5 - 5.1 mmol/L 3.6 Chloride Latest Ref Range: 98 - 109 mmol/L 99 Carbon dioxide Latest Ref Range: 24 - 31 mmol/L 30 ANION GAP Latest Ref Range: 3 - 16 mmol/L 5 GLUCOSE Latest Ref Range: 70 - 109 mg/dL 120 (H) BUN Latest Ref Range: 7 - 18 mg/dL 3 (L) Creatinine Latest Ref Range: 0.60 - 1.30 mg/dL 0.66 BUN/CREA Unknown 4.5 EGFR IF NOT Latest Ref Range: >=60 mL/min/1.73m2 >60 Calcium Latest Ref Range: 8.3 - 10.5 mg/dL 8.2 (L) PHOSPHORUS Latest Ref Range: 2.5 - 4.6 mg/dL 3.5 URIC ACID Latest Ref Range: 2.6 - 7.2 mg/dL 5.[address] 06/28/2017 11:53 AM CLINICAL HISTORY: AML, oxygen dependence, eval for pulmonary leukostasis or fungal pneumonia COMPARISON: CT May 2016 and more remote exams IMPRESSION - 1. VERY SMALL BUT PARTIALLY LOCULATED APPEARING LEFT PLEURAL EFFUSION WITH ATELECTASIS/CONSOLIDATION INVOLVING THE LINGULA AND LEFT LOWER LOBE. 2. SPLENOMEGALY. 3. CHRONIC LEFT THYROID LESION. Dictated and Signed by: Jacob Jamison MD Electronically signed: 06/28/2017 12:59 PM Pharmacovigilance: Palliative Care: Procedure: MANUEL SPRINGER MD Portions of this chart may have been created with [employer] voice recognition software. Occasi onal wrong-word or sound-alike substitutions may have occurred due to the inherent esparza itations of voice recognition software. Please read the chart carefully and recognize, using context, where these substitutions have occurred.Oralia Ashton RN - 06/27/2017 1642 PSTSorry I meant [facility], not [facility]. Manuel Springer MD - 06/27/2017 1338 PSTFormatting of this note may be different from the original. Hematology/Oncology Daily Progress Note [facility] [place] Pt. Name/Age/: Rhea Hutchison 51 y.o. 1965 Med. Record Number: [id number] Date of admission: 06/26/2017 Today's Date: 06/27/17 Location: [address] [place] [address] The patient's primary care provider is Saurav De Los Santos NP. Identifying Statement: Rhea Hutchison is a 51 y.o. female from [address] [place] [address] with a second relapse of acute myelogenous leukemia. The patient chart and medications were reviewed in detail and the patient was seen and exam ined. 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 1. Presentation to the [facility] emergency room in [facility] on January 272015 with complaints of cough and odynophagia. Complete blood count was notable for a wh ite count of 117,000, hemoglobin 10.7 g/dL, platelet count of 51,000. She was emergently tr [facility]ferred [facility] were bone marrow biopsy and aspiration at [facility] on February 15, 2016 confirmed acute myelogenous leukemia, diploid, positive for FLT -3 tyrosine kinase domain mutation (also positive for NPM1, DNMT3A, NRAS, NPM1 and TET2 muta tions). 2. Induction chemotherapy with conventional 7+3 cytarabine/idarubicin February 16, 2016 with continuous daily dasatinib (Sprycel) complicated by fungal pneumonia, neutropenic fever, hi dradenitis suppurativa, and Clostridium Difficile colitis. Repeat bone marrow biopsy on 2015 (day 28); First complete remission. 3. Cycle#1 MiDaC (1500 mg/m Cytarabine) consolidation at [facility] on March 27, 2016. 4. Cycle#2 MiDaC (1500 mg/m Cytarabine) consolidation at [facility] on May 01, 2016. 5. Cycle#3 MiDaC (1200 mg/m Cytarabine) consolidation at [facility] on May 28, 2016. 6. Cycle#4 MiDaC (1000 mg/m Cytarabine ) consolidation at [facility] on June 25, 2016. 7. Bone Marrow Biopsy and Aspiration July 23, 2016 at the [facility] in [place], [place] specimen # [id number] demonstrated ongoing complete remissio n. Molecular analysis was negative for any residual NPM1 mutation positive cells and negativ e for any FLT-3 mutation positive cells (sensitivity is 1 in 20,000). 8. CBC on December 25, 2016; WBC 5,000, Hgb 14.6 gm/dl, Hct 42.7, Platelet 138,000. 9. MRI of right hip on January 25, 2017 in anticipation of right hip replacement; numerou s subcentimeter round marrow repacing lesions within the visualized lower lumbar spine, pelv is, and femurs. 10. CT Chest/Abdomen/Pelvis on February 06, 2017; 3 cm left thyroid mass, no other suggestio n of primary neoplasm. 11. Bone scan February 08, 2017; Normal. 12. PET/CT scan on February 27, 2017; diffuse uptake about the spleen and bone marrow. 13. CBC on March 01, 2017; WBC 103,5000 (92% blasts) Hgb 13.8, Hct 41.8%, Platelet count 10,000. [id number] U/L, BUN 14 mg/dL, Scr 0.82 mg/dL. 14. Admit [facility], [facility] 03/01/2017; Chest X-ray consis tent with pulmonary leukostasis. Hydroxyurea 2 grams po q 4 hours x 3 doses with no change i n WBC. 15. Transfer to [facility]; bone marrow biopsy and aspiration were performed on February 15, 2016 , and confirmed acute myelogenous leukemia, diploid, positive for FLT-3 tyrosine kinase doma in mutation, positive for NPM1 mutation, positive for DNMT3A mutation, positive for NRAS mut ation, positive for TET mutation. 16. Induction chemotherapy with conventional 7+3 cytarabine/idarubicin chemotherapy, 2015, with continuous daily dasatinib (Sprycel) complicated by fungal pneumonia, neutr openic fever, hidradenitis suppurativa, and Clostridium difficile colitis. 17. Bone marrow biopsy performed on day 28, February 12, 2016, demonstrated a first complete remission. 18. Cycle #1 of high-dose cytarabine consolidation at the [facility] on March 26, 2016. 19. Cycle #2 of cytarabine consolidation at the [facility] on Apr. 20. Cycle #3 of cytarabine consolidation at the [facility] in [place], [place], May 28, 2016. 21. Cycle #4 of cytarabine consolidation chemotherapy at the [facility] in [place], [place], June 25, 2016. 22. Repeat bone marrow biopsy and aspiration on July 23, 2016, at the [facility] in [place], [place], specimen #[id number] demonstrating ongo ing complete remission. Molecular analysis was negative for any residual NPM1 mutation posi tive cells and negative for any FLT-3 mutation positive cells (sensitivity is 1 in 20,000). 23. Complete blood count on December 25, 2016, hemoglobin 14.6, hematocrit 42.7%, platelet co unt 138,000, white count 5000. 24. Repeat complete blood count on March 01, 2017, white count 103,500 with 92% blasts. H emoglobin 13.8 g/dL, hematocrit 41.8%, platelet count 10,000. BUN was 14, creatinine 0.82, estimated GFR 73. LDH was 4427 units/L (upper limits of normal 215 units/L). Repeat [facility] analysis; NPM1 mut positive, DNMT3A mut positive, NRAS mut positive, FLT3 TKD mut positi ve (both D835A and N841K), TET2 mut positive. 25. Status post FLAG-SAL + midostaurin reinduction March 02, 2017, with second complete r emission. 26. One Cycle of maintenance azacytidine (Vidaza) on May 06, 2017 with midostaurin, comp licated by prolonged pancytopenia. 27. Repeat bone marrow biopsy only (dry tap) June 21, 2017 ([facility] [id number]); 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 myelogenous leukemia (60%); Blasts po sitive for CD117 and CD 33, negative for CD34, CD71, CD61, CD3 and PAX-5. Current Assessment & Plan Rhea Hutchison was admitted on June 26, 2017 for management of her second relapse o f acute myelogenous leukemia. Extended bedside encounter with Rhea and her , Jhony, with included communications from [facility] providers Renea Bell MD, Salomón Delgado MD and Toshia Salinas RN , as well as two communications with the [facility] transfer center . Communications were made slightly more complicated by the fact that Rhea reported finding her cert ificate nine days ago and discovered that her birthday is actually 61. This was correc sharon in the [facility] electronic record, however Rhea is still listed as 61 in the [facility] electronic record. I notified both Toshia Salinas RN and the [facility] transfer center of this i ssue. Dr. Salomón Delgado has accepted Rhea Hutchison as the attending physician for hospital t o hospital transfer to [facility] when a bed is available on either the 14th or 13th floor. Toshia Salinas has confirmed that Rhea's older brother is an HLA match, however immediate plans for an allogeneic stem cell transplant have been interdicted by Rhea's second relapse of her AML. In all likelihood, Rhea will be enrolled in a phase 1 trail after transfer and plans for an allow SCT deferred until she can obtain a third remission. IDH analysis from her 06/21 remains in process at [facility], however may be a technical failure since th e bone marrow was a dry tap. Rhea's WBC continues to increase incrementally, potentially a ffording the opportunity of performing IDH mutation testing on venous blood. Review of Systems: Constitutional: denies high fever or shaking chills; positive for fatigue, denies anorexia, nausea, vomiting, or weight loss Ears, Nose, Mouth, throat: Denies odynophagia, dysphagia, or tinnitus Respiratory: no cough, hemoptysis, or shortness of breath Cardiovascular: negative for - chest pain, dyspnea on exertion, orthopnea, palpitations or shortness of breath GI: positive for constipation. : no dysuria, trouble voiding, or hematuria Musculoskeletal: positive for diffuse bone pain. Neurologic: negative for - headaches, numbness/tingling or visual changes Endocrine: negative for - edema Hematologic: Denies bruising or bleeding. Review of systems as above otherwise negative Scheduled Medications: Current Facility-Administered Medications Medication Dose Route Frequency Provider Last Rate Last Dose acetaminophen (TYLENOL) tablet 487.5 mg 487.5 mg Oral Q6H PRN Manuel Springer MD 487.5 mg at 06/27/17 1236 acyclovir (ZOVIRAX) tablet 800 mg 800 mg Oral Daily Manuel Springer MD 800 mg at 06/27/17 0849 albuterol 2.5 mg/3 mL nebulizer solution 2.5 mg 2.5 mg Nebulization RT Q4H PRN Manuel Springer MD calcium carbonate (TUMS) chewable tablet 500 mg 500 mg Oral PRN Manuel Springer MD cefTAZidime (FORTAZ, TAZICEF) 2 g in sodium chloride 0.9% 50 mL IVPB 2 g Intravenous 3 times per day Manuel Springer MD 140 mL/hr at 06/27/17 1544 2 g at 06/27/17 1544 docusate sodium (COLACE) capsule 100 mg 100 mg Oral BID PRN Manuel Springer MD 100 mg at 06/26/17 2324 dronabinol (MARINOL) capsule 10 mg 10 mg Oral Daily Manuel Springer MD 10 mg a t 06/27/17 0851 DULoxetine (CYMBALTA) DR capsule 90 mg 90 mg Oral Daily Manuel Springer MD 90 mg at 06/27/17 0850 hydrocortisone 1% cream Topical TID PRN Manuel Springer MD HYDROmorphone (DILAUDID) injection 0.25-1 mg 0.25-1 mg Intravenous Q2H PRN Manuel vazquez MD 0.5 mg at 06/27/17 0139 ipratropium (ATROVENT) 500 mcg/2.5 mL nebulizer solution 500 mcg 500 mcg Nebulization RT Q6H Manuel Springer MD 500 mcg at 06/27/17 1511 levothyroxine (SYNTHROID) tablet 50 mcg 50 mcg Oral QAM AC Manuel Springer MD 50 mcg at 06/27/17 0626 LORazepam (ATIVAN) tablet 0.5 mg 0.5 mg Oral Q8H PRN Manuel Springer MD magnesium hydroxide (MILK OF MAGNESIA) 400 mg/5 mL suspension 30 mL 30 mL Oral Nightly PRN Manuel Springer MD 30 mL at 06/26/17 2322 micafungin (MYCAMINE) 100 mg in sodium chloride 0.9% 100 mL IVPB 100 mg Intravenous Q2 4H Manuel Springer MD 110 mL/hr at 06/27/17 1439 100 mg at 06/27/17 1439 ondansetron (ZOFRAN ODT) disintegrating tablet 4 mg 4 mg Oral Q12H PRN Manuel osborne MD 4 mg at 06/27/17 0136 oxybutynin (DITROPAN XL) ER tablet 10 mg 10 mg Oral Daily Manuel Springer MD 1 0 mg at 06/27/17 0849 oxyCODONE (ROXICODONE) tablet 5-15 mg 5-15 mg Oral Q3H PRN Manuel Springer MD 10 mg at 06/27/17 1623 polyethylene glycol (MIRALAX) powder 17 g 17 g Oral Daily PRN Manuel Springer MD 17 g at 06/27/17 1335 senna (SENOKOT) tablet 8.6 mg 8.6 mg Oral BID PRN Manuel Springer MD 8.6 mg at 06/27/17 1328 sodium chloride 0.9% (NS) infusion Intravenous Continuous Manuel Springer MD 10 0 mL/hr at 06/27/17 0626 tiZANidine (ZANAFLEX) tablet 4 mg 4 mg Oral Q6H PRN Manuel Springer MD traZODone (DESYREL) tablet 100 mg 100 mg Oral Nightly Manuel Springer MD 100 m g at 06/26/172010 Allergies: Allergy: Allergies Allergen Reactions Morphine Swelling and Rash Other reaction(s): No Reaction Indicated Rash and facial swelling Rash and facial swelling Cefepime Rash Past Medical and Surgical History, Social History and Problems: Past Medical History: Diagnosis Date Anxiety Bronchitis Cancer (HCC) Chronic constipation COPD (chronic obstructive pulmonary disease) (HCC) Depression Hyperinflation of lungs Hypothyroidism Insomnia Leukemia in remission (HCC) Posttraumatic stress disorder Right buttock pain 12/12/2016 Sciatica Thyroid disorder Past Surgical History: Procedure Laterality Date BONE MARROW BIOPSY N/A 07/23/2016 Procedure: BIOPSY / ASPIRATION BONE MARROW; Surgeon: Manuel Springer MD; Location: [facility] SHORT STAY CARPAL TUNNEL RELEASE 2004 [facility]; [facility] CHOLECYSTECTOMY 06/2013 [facility]; [facility]. JOINT REPLACEMENT 01/2014 Knee replacement KNEE ARTHROPLASTY Right 01/2014 [facility]; [place] [facility]. PARTIAL HYSTERECTOMY 1989 [facility]; [place] [facility]. 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 Chronic constipation Depression Thyroid nodule Family History Problem Relation Age of Onset Cancer Mother colon, brain Arthritis Mother Gout Mother Heart disease Mother Hypertension Mother Alcohol abuse Father High blood pressure Father Gout Father Heart disease Father High blood pressure Paternal Grandmother Diabetes Paternal Grandmother Gout Paternal Grandmother No Known Problems Maternal Grandmother No Known Problems Maternal Grandfather No Known Problems Paternal Grandfather Objectives: Temp: 35.8 C (96.5 F) BP: 131/80 Pulse: 94 Resp: 16 SpO2: 96 % on Min/Max Temp past 24 hours:Temp Av.6 C (97.8 F) Min: 35.8 C (96.5 F) Max: 3 7.2 C (98.9 F) Intake/Output Summary (Last 24 hours) at 06/27/17 1640 Last data filed at 06/27/17 0954 Gross per 24 hour Intake 2548 ml Output 1200 ml Net 1348 ml Wt. Admission: Weight: 86.2 kg (190 lb 0.6 oz) Wt. Current: Weight: 88.2 kg (194 lb 7.1 oz) Wt Readings from Last 3 Encounters: 06/27/17 88.2 kg (194 lb 7.1 oz) 03/02/17 91.4 kg (201 lb 8 oz) 12/12/16 88.5 kg (195 lb) Physical Exam: General: The patient is alert and oriented. No acute distress. Eyes: There is a left sub-conjunctival hemorrhage. Sclera are otherwise anicteric. ENMT: Oropharynx fee of lesions, mucous membranes moist. There are no lower extremity petec hiae. Cardiovascular: Rapid rate and regular rhythm, no rubs, gallops, or murmurs. Lungs: Clear to auscultation and percussion. Chest: Patient does not have a port-a-cath. Abdomen: Soft, nontender, no hepatospenomegaly. No palpable masses. Bowel sounds present. Extremities: Nontender, no erythema, no edema. Her right upper extremity double lumen PICC line is clean, dry and intact. Skin: Ecchymoses on the inner right thigh. Bilateral lower extremity petechiae. Lymph: No palpable nodes in the neck, supraclavicular fossa, axilla or groin. Neurological: Cranial nerves are intact. Normal sensory and motor function, No focal defi cits noted. Muscular/Skeletal: No acute bony tenderness. No evidence of sarcopenia. Psychiatric: Normal mood and affect. ECOG Performance Status [] 0 [] 1 [x] 2 []3 [] 4 ECOG PERFORMANCE STATUS* Grade ECOG Karnofsky 0 Fully active, able to carry on all pre-disease performance without restriction. 90 - 100 1 Restricted in physically strenuous activity but ambulatory and able to carry out work of a light or sedentary nature, e.g., light house work, office work 70 - 80 2 Ambulatory and capable of all selfcare but unable to carry out any work activ ities. Up and about more than 50% of waking hours 50 - 60 3 Capable of only limited selfcare, confined to bed or chair more than 50% of w aking hours 30 - 40 4 Completely disabled. Cannot carry on any selfcare. Totally confined to bed or chair 10 - 20 * As published in Am. J. Clin. Oncol.: Cuauhtemoc Chavez., Maggie Fairchild., Yariel Arevalo., Leonel Zurita., Manohar, TMarcelina., Clifford, Matthew., [place], P .P.: Toxicity And Response Criteria Of The Eastern Cooperative Oncology Group. Am J Clin Onc ol 5:649-655, 1982. The ECOG Performance Status is in the public domain therefore available for public use. To duplicate the scale, please cite the reference above and credit the Eastern Cooperative Onco logy Group, Manuel Cheema M.D., Group Chair Diagnostic studies: Available data and images were reviewed personally. See reports. Significant results and findings are addressed here or in the Assessment and Plan. Results for RHEA HUTCHISON ( ) as of 06/27/2017 13:41 Ref. Range 06/26/2017 16:48 WBC Latest Ref Range: 4.0 - 11.0 K/uL 14.4 (H) WBC morphology Unknown Normal RBC COUNT Latest Ref Range: 3.70 - 5.20 M/uL 2.77 (L) Hgb Latest Ref Range: 11.5 - 16.0 g/dL 8.2 (L) Hct, Final Latest Ref Range: 34.0 - 47.0 % 24.9 (L) MCV Latest Ref Range: 83.0 - 101.0 fL 89.7 MCH Latest Ref Range: 28.0 - 35.0 pg 29.4 MCHC Latest Ref Range: 32.0 - 36.0 g/dL 32.8 RDW-CV Latest Ref Range: <15.0 % 19.3 (H) Platelet Count Latest Ref Range: 140 - 440 K/uL 12 (LL) MPV Latest Units: fL 10.6 Absolute Seg Neutrophils Latest Ref Range: 1.80 - 7.70 K/uL 1.15 (L) Absolute Lymphocytes Latest Ref Range: 1.00 - 3.40 K/uL 2.59 Absolute Monocytes Latest Ref Range: 0.00 - 0.80 K/uL 0.14 % Neutrophils Latest Ref Range: 50.0 - 70.0 % 8.0 (L) Absolute Blasts Latest Units: K/uL 10.51 % Blast Latest Ref Range: <0.0 % 73.0 (H) % Lymphocytes Latest Ref Range: 20.0 - 40.0 % 18.0 (L) % Monocytes Latest Ref Range: 1.0 - 6.0 % 1.0 Anisocytosis Latest Ref Range: (none) Moderate (A) Hypochromasia Latest Ref Range: (none) Slight (A) Platelet estimate Latest Ref Range: Adequate Decreased (A) NA Latest Ref Range: 136 - 149 mmol/L 138 K Latest Ref Range: 3.5 - 5.1 mmol/L 3.7 Chloride Latest Ref Range: 98 - 109 mmol/L 100 Carbon dioxide Latest Ref Range: 24 - 31 mmol/L 29 ANION GAP Latest Ref Range: 3 - 16 mmol/L 9 GLUCOSE Latest Ref Range: 70 - 109 mg/dL 98 BUN Latest Ref Range: 7 - 18 mg/dL 8 Creatinine Latest Ref Range: 0.60 - 1.30 mg/dL 0.84 BUN/CREA Unknown 9.5 EGFR IF NOT Latest Ref Range: >=60 mL/min/1.73m2 >60 Calcium Latest Ref Range: 8.3 - 10.5 mg/dL 8.8 PHOSPHORUS Latest Ref Range: 2.5 - 4.6 mg/dL 2.7 URIC ACID Latest Ref Range: 2.6 - 7.2 mg/dL 7.1 Results for RHEA HUTCHISON ( ) as of 06/27/2017 13:41 Ref. Range 06/26/2017 17:46 Color, UA Latest Ref Range: Light Yellow, Yellow, Straw Yellow Clarity, UA Latest Ref Range: Clear Hazy (A) Specific [place] Latest Ref Range: 1.001 - 1.030 1.017 PH UA Latest Ref Range: 5.0 - 8.0 7.0 Glucose, UA Latest Ref Range: Negative Negative Ketones, UA Latest Ref Range: Negative Negative Protein, UA Latest Ref Range: Negative Negative Blood, UA Latest Ref Range: Negative Negative Bilirubin, UA Latest Ref Range: Negative Negative Nitrite, UA Latest Ref Range: Negative Negative UROBILINOGEN UA Latest Ref Range: 0.2 mg/dL, 1.0 mg/dL, Negative Negative Leukocyte esterase, UA Latest Ref Range: Negative Negative WBC UA Latest Ref Range: 0 - 2 /HPF 0-2 RBC UA Latest Ref Range: 0 - 2 /HPF 0-2 Squamous epithelial, UA Latest Ref Range: 0 - 2 /LPF 5-10 (A) BACTERIA UA Latest Ref Range: Negative /HPF Negative Mucus, UA Latest Ref Range: Negative /LPF Present (A) URINE COMMENT Unknown Urine Culture Not... Pharmacovigilance: Palliative Care: Procedure: MANUEL SPRINGER MD Portions of this chart may have been created with [email or web address] voice recognition software. Occasi onal wrong-word or sound-alike substitutions may have occurred due to the inherent esparza itations of voice recognition software. Please read the chart carefully and recognize, using context, where these substitutions have occurred.Oralia Richter RN - 06/26/2017 1642 Patricia lama arrived to unit in stable condition. Via wheelchair with Nicolas. in this encoun ter Plan of Treatment Not on fileas of this encounter Results CT Chest wo Contrast (06/28/2017 1202) + + | Narrative | + + | UNENHANCED CHEST CT 06/28/2017 11:53 AM CLINICAL HISTORY: AML, oxygen dependence, | | eval for pulmonary leukostasis or fungal pneumonia COMPARISON: CT May | | 2016 and more remote exams TECHNIQUE: Axial unenhanced images are performed through | | the chest, along with multiplanar reformations. FINDINGS: A 2.9 cm rounded | | hypoattenuating lesion is again visible in the left thyroid lobe and is similar to | | previous. A right upper extremity PICC terminates near the cavoatrial | | junction. Trace pericardial fluid is again visible. The mediastinum otherwise has | | an unremarkable unenhanced appearance. No pathologic lymph node enlargement is | | evident. A very small partially loculated appearing left basilar pleural effusion is | | present. There is atelectasis/consolidation within the lingula and mid to basilar | | left lower lobe. Minimal dependent density and bandlike opacity in the right lower | | lobe and also involving the right middle lobe favors atelectasis. The upper lungs are | | clear. No nodule or airway abnormality is evident. There is no pneumothorax. | | A rounded calcific density persists along the posterior aspect of the right | | glenohumeral joint, potentially reflecting a loose body. There is multilevel | | thoracic spondylosis. The imaged spleen is now enlarged, measuring at least 13 cm | | long axis. Imaged upper abdomen is otherwise unremarkable. IMPRESSION - | | 1. VERY SMALL BUT PARTIALLY LOCULATED APPEARING LEFT PLEURAL EFFUSION WITH | | ATELECTASIS/CONSOLIDATION INVOLVING THE LINGULA AND LEFT LOWER LOBE. | | 2. SPLENOMEGALY. 3. CHRONIC LEFT THYROID LESION. Dictated and Signed by: | | Jacob Jamison MD Electronically signed: 06/28/2017 12:59 PM | + + + + | Procedure Note | + + | Jaden, Rad Results In - 06/28/2017 [address]ED CHEST [address] 06/28/2017 11:53 AM | | | | CLINICAL HISTORY: AML, oxygen dependence, eval for pulmonary leukostasis or | | fungal pneumonia | | | | COMPARISON: CT May 2016 and more remote exams | | | | TECHNIQUE: Axial unenhanced images are performed through the chest, along with | | multiplanar reformations. | | | | FINDINGS: A 2.9 cm rounded hypoattenuating lesion is again visible in the left | | thyroid lobe and is similar to previous. A right upper extremity PICC | | terminates near the cavoatrial junction. Trace pericardial fluid is again | | visible. The mediastinum otherwise has an unremarkable unenhanced appearance. | | No pathologic lymph node enlargement is evident. | | | | A very small partially loculated appearing left basilar pleural effusion is | | present. There is atelectasis/consolidation within the lingula and mid to | | basilar left lower lobe. Minimal dependent density and bandlike opacity in the | | right lower lobe and also involving the right middle lobe favors atelectasis. | | The upper lungs are clear. No nodule or airway abnormality is evident. There | | is no pneumothorax. | | | | A rounded calcific density persists along the posterior aspect of the right | | glenohumeral joint, potentially reflecting a loose body. There is multilevel | | thoracic spondylosis. The imaged spleen is now enlarged, measuring at least 13 | | cm long axis. Imaged upper abdomen is otherwise unremarkable. | | | | IMPRESSION - | | 1. VERY SMALL BUT PARTIALLY LOCULATED APPEARING LEFT PLEURAL EFFUSION WITH | | ATELECTASIS/CONSOLIDATION INVOLVING THE LINGULA AND LEFT LOWER LOBE. | | | | 2. SPLENOMEGALY. | | | | 3. CHRONIC LEFT THYROID LESION. | | | | Dictated and Signed by: Jacob Jamison MD | | Electronically signed: 06/28/2017 12:59 PM | + + Misc Lab Referral (06/28/2017 1107) + + + + | Component | Value | Ref Range | + + + + | Miscellaneous Lab | COMMENTComment: Test Ordered: [id number] | | | Test Result | IDH1/IDH2 Mutation AnalysisIDH1 | | | | Result | | | | Comment | | | | 01 NEGATIVENo IDH1 mutations were | | | | detected in the provided specimen. This | | | | resultdoes not rule out the presence of IDH | | | | mutations at a level below thedetection | | | | sensitivity of the assay, or the presence | | | | of other mutationswithin IDH not detected | | | | by this assay. Results should be | | | | interpretedin conjunction with clinical and | | | | other laboratory findings for themost | | | | accurate interpretation.IDH2 | | | | Result | | | | Comment | | | | 01 NEGATIVENo IDH2 mutations were | | | | detected in the provided specimen. This | | | | resultdoes not rule out the presence of IDH | | | | mutations at a level below thedetection | | | | sensitivity of the assay, or the presence | | | | of other mutationswithin IDH not detected | | | | by this assay. Results should be | | | | interpretedin conjunction with clinical and | | | | other laboratory findings for themost | | | | accurate interpretation.Block | | | | ID | | | | | | | | Comment: | | | | 01 N/ABackground | | | | | | | | Comment | | | | 01 Isocitrate dehydrogenase 1 and 2 | | | | (IDH1 and IDH2) are the mostfrequently | | | | mutated metabolic genes in human | | | | cancer. They encodecytosolic and | | | | mitochondrial enzymes that catalyze the | | | | conversionof isocitrate to a-ketoglutarate | | | | (alphaKG), a jc component inmetabolic and | | | | cellular pathways including the Sarai | | | | cycle.IDH1 and IDH2 mutations are found in | | | | multiple types of humancancer including, | | | | but not limited to, acute myeloid | | | | leukemiaand gliomas. Identification of | | | | IDH mutations can aid in theirdiagnosis, | | | | provide prognostic information, and suggest | | | | treatmentwith IDH inhibitors. This | | | | assay will detect mutations affectingamino | | | | acids 100, 105, and 132 of IDH1, and amino | | | | acids 140 [id number] of | | | | IDH2.Method | | | | | | | | Comment | | | | 01 Genomic DNA was isolated from the | | | | provided tumor specimen. TheIDH1 and | | | | IDH2 gene region of interest were subjected | | | | to SNaPshotmultiplex PCR and primer | | | | extension for mutation | | | | detection. Thisassay is able to detect | | | | 5% mutation in a background of | | | | wild-typeDNA.This test can detect the | | | | following mutations in IDH1 and | | | | [id number]: R100Q, R100L, R100P, R132C, | | | | R132S, R132G, R132H, R132L, | | | | R132P, R132V, | | | | [id number]: R172K, R172M, R172T, R172W, | | | | R172G, R172S, R140G, R140W, | | | | R140L, R140Q, | | | | [id number] | | | | | | | | Comment | | | | 01 (1) Clin Cancer Res. 2016 Jul | | | | 15;22(8):1837-42. Molecular | | | | Pathways:Isocitrate Dehydrogenase Mutations | | | | in Cancer. Valentina Vega Mellinghoff | | | | IK.(2) Clin Cancer Res. 2012 | | | | 15;19(4):764-72. The definition | | | | ofprimary and secondary | | | | gliobastoma. Pepe H1, Susanna P.(3) | | | | Fátima Oncol. 2016 Jul;27(4):599-608. IDH | | | | mutations in cancer andprogress toward | | | | development of targeted | | | | therapeutics. Bonny Dick, Valentina Alicea,Gordon EC.(4) | | | | Leukemia. 2016 | | | | Feb;31(2):272-281. Isocitrate | | | | dehydrogenasemutations in myeloid | | | | malignancies. Carmelina BC, Fathi AT, | | | | Erica CD,Polljennifera DA, Patterson SM, Swords | | | | R.(5) N Engl J Med. 2008 | | | | 19;360(8):765-73. IDH1 and IDH2 | | | | mutationsin gliomas. Cordell Vazquez, Emy DW, | | | | Reed G, Alden R, Miguel BA, Moreno W,Kos | | | | I, Sydney I, Jude S, Yancy GJ, | | | | Susanne H, Susanne A,Jun D, Wilmer | | | | J, Magdiel RUSSELL, Dara VE, Heath | | | | B,Fernando CURRY.(6) | | | | https://www.fda.gov/Drugs/InformationonDrug | | | | s/ApprovedDrugs/[email or web address].htmDirector | | | | Review Comme | | | | nt | | | | 01 Jacque Levy, PhD, | | | | [facility] Director, | | | | Molecular | | | | Genetics | | | | [facility] | | | | Molecular | | | | Biology and | | | | Pathology | | | | [facility], | | | | [place] | | | | [phone] | | | | Performed TNP | | | | 02 Test not | | | | performed | | + + + + + + + | Specimen | Performing Laboratory | + + + | Blood - Peripheral | [facility] [place] [id number] [facility] | | Blood | [place], [place] [address] | + + + + + | Narrative | + + | Performed at: 03 - [facility] [address] [id number] | | Supervisor Sewing Room: Anish Anderson MD, Phone: [phone] | + + Slide Review, Peripheral Smear (06/28/2017 0331) + +--------+ + | Component | Value | Ref Range | + +--------+ + | RBC MORPHOLOGY | Normal | | + +--------+ + | WBC MORPHOLOGY | Normal | | + +--------+ + | PLT MORPHOLOGY | Normal | | + +--------+ + + + + | Specimen | Performing Laboratory | + + + | Blood | [facility] [address] | | | [place] [address] | + + + + + | Narrative | + + | Moderate blast looking neutrophils present; consistent with previous manual | | differential results. Plt markedly decreased | + + Uric Acid (06/28/2017330) + +-------+ + | Component | Value | Ref Range | + +-------+ + | URIC ACID | 5.3 | 2.6 - 7.2 mg/dL | + +-------+ + + + + | Specimen | Performing Laboratory | + + + | Blood | [facility] [address] | | | [place] [address] | + + + Phosphorus (06/28/2017330) + +-------+ + | Component | Value | Ref Range | + +-------+ + | PHOSPHORUS | 3.5 | 2.5 - 4.6 mg/dL | + +-------+ + + + + | Specimen | Performing Laboratory | + + + | Blood | [facility] [address] | | | [place] [address] | + + + Basic Metabolic Panel (06/28/2017330) + + + + | Component | Value | Ref Range | + + + + | NA | 134 (L) | 136 - 149 mmol/L | + + + + | K | 3.6 | 3.5 - 5.1 mmol/L | + + + + | CL | 99 | 98 - 109 mmol/L | + + + + | CO2 | 30 | 24 - 31 mmol/L | + + + + | ANION GAP | 5 | 3 - 16 mmol/L | + + + + | GLUCOSE | 120 (H) | 70 - 109 mg/dL | + + + + | BUN | 3 (L) | 7 - 18 mg/dL | + + + + | Creatinine, | 0.66 | 0.60 - 1.30 mg/dL | | Serum/Plasma | | | + + + + | eGFR if not | >60Comment: GLOMERULAR FILTRATION | >=60 mL/min/1.73m2 | | [place] | RATE,ESTIMATED mL/min/1.48o7Lxxd than | | | | 60 Chronic kidney disease,if found over | | | | a 3-month period.Less than 15 Kidney | | | | failureFor Americans,multiply the | | | | calculated GFR by 1.21. | | | | | | | | | | + + + + | CALCIUM | 8.2 (L) | 8.3 - 10.5 mg/dL | + + + + | BUN/CREA | 4.5 | | + + + + + + + | Specimen | Performing Laboratory | + + + | Blood | [facility] [address] | | | [place] [address] | + + + CBC with Differential (06/28/2017 0331) + + + + | Component | Value | Ref Range | + + + + | WBC | 24.2 (H) | 4.0 - 11.0 K/uL | + + + + | RBC | 2.68 (L) | 3.70 - 5.20 M/uL | + + + + | Hgb | 7.8 (L) | 11.5 - 16.0 g/dL | + + + + | Hct | 24.3 (L) | 34.0 - 47.0 % | + + + + | MCV | 90.5 | 83.0 - 101.0 fL | + + + + | MCH | 29.1 | 28.0 - 35.0 pg | + + + + | MCHC | 32.2 | 32.0 - 36.0 g/dL | + + + + | RDW-CV | 19.3 (H) | <15.0 % | + + + + | Platelet Count | 13 (LL)Comment: Critical Result called to | 140 - 440 K/uL | | | and read back by Trae Weeks on 06/28/2017 | | | | at 4:04 by Elizabeth Parker. | | + + + + | MPV | 10.0 | fL | + + + + | % Neutrophils | 4.3 (L) | 45.0 - 82.0 % | + + + + | % Lymphocytes | 4.0 (L) | 20.0 - 45.0 % | + + + + | % Monocytes | 91.5 (H) | 4.0 - 12.0 % | + + + + | % Eosinophils | 0.0 | 0.0 - 5.0 % | + + + + | % Basophils | 0.2 | 0.0 - 1.0 % | + + + + | Absolute Neutrophils | 1.00 (L) | 1.80 - 8.50 K/uL | + + + + | Absolute Lymphocytes | 1.00 | 0.60 - 3.20 K/uL | + + + + | Absolute Monocytes | 22.20 (H) | 0.00 - 1.00 K/uL | + + + + | Absolute Eosinophils | 0.00 | 0.00 - 0.40 K/uL | + + + + | Absolute Basophils | 0.00 | 0.00 - 0.10 K/uL | + + + + + + + | Specimen | Performing Laboratory | + + + | Blood | [facility] [address] | | | [place] [address] | + + + Urinalysis with Microscopic with Culture if Indicated (06/26/2017 1746) + + + + | Component | Value | Ref Range | + + + + | COLOR | Yellow | Light Yellow, | | | | Yellow, Straw | + + + + | CLARITY | Hazy (A) | Clear | + + + + | PH UA | 7.0 | 5.0 - 8.0 | + + + + | Specific [place] | 1.017 | 1.001 - 1.030 | + + + + | PROTEIN UA | Negative | Negative | + + + + | BLOOD UA | Negative | Negative | + + + + | GLUCOSE UA | Negative | Negative | + + + + | KETONES UA | Negative | Negative | + + + + | BILIRUBIN UA | Negative | Negative | + + + + | NITRITE UA | Negative | Negative | + + + + | LEUKOCYTES ESTERASE | Negative | Negative | | UA | | | + + + + | UROBILINOGEN UA | Negative | 0.2 mg/dL, 1.0 | | | | mg/dL, Negative | + + + + | WBC UA | 0-2 | 0 - 2 /HPF | + + + + | RBC UA | 0-2 | 0 - 2 /HPF | + + + + | SQUAMOUS EPITHELIAL | 5-10 (A) | 0 - 2 /LPF | | UA | | | + + + + | BACTERIA UA | Negative | Negative /HPF | + + + + | MUCUS UA | Present (A) | Negative /LPF | + + + + | URINE COMMENT | Urine Culture Not Indicated | | + + + + + + + | Specimen | Performing Laboratory | + + + | Urine | [facility] [address] | | | [place] [address] | + + + Extra Blood Bank Tube (06/26/2017 1700) + + + + | Component | Value | Ref Range | + + + + | Hold BB | Hold Specimen | | + + + + + + + | Specimen | Performing Laboratory | + + + | Blood | [facility] [address] | | | [place] [address] | + + + Wei, Manual (06/26/2017 1648) + + + + | Component | Value | Ref Range | + + + + | % Seg Neutrophils | 8.0 (L) | 50.0 - 70.0 % | + + + + | % Lymphocytes | 18.0 (L) | 20.0 - 40.0 % | + + + + | % Monocytes | 1.0 | 1.0 - 6.0 % | + + + + | % Blast | 73.0 (H) | <0.0 % | + + + + | Absolute Seg | 1.15 (L) | 1.80 - 7.70 K/uL | | Neutrophils | | | + + + + | Absolute Lymphocytes | 2.59 | 1.00 - 3.40 K/uL | + + + + | Absolute Monocytes | 0.14 | 0.00 - 0.80 K/uL | + + + + | Absolute Blasts | 10.51 | K/uL | + + + + | Total Counted | 100 | | + + + + | WBC MORPHOLOGY | Normal | | + + + + | Platelet Estimate | Decreased (A) | Adequate | + + + + | HYPOCHROMIA | Slight (A) | (none) | + + + + | Anisocytosis | Moderate (A) | (none) | + + + + + + + | Specimen | Performing Laboratory | + + + | Blood | [facility] [address] | | | [place] [address] | + + + Phosphorus (06/26/2017 1648) + +-------+ + | Component | Value | Ref Range | + +-------+ + | PHOSPHORUS | 2.7 | 2.5 - 4.6 mg/dL | + +-------+ + + + + | Specimen | Performing Laboratory | + + + | Blood | [facility] [address] | | | [place] [address] | + + + Uric Acid (06/26/2017 1648) + +-------+ + | Component | Value | Ref Range | + +-------+ + | URIC ACID | 7.1 | 2.6 - 7.2 mg/dL | + +-------+ + + + + | Specimen | Performing Laboratory | + + + | Blood | [facility] [address] | | | [place] [address] | + + + CBC with Differential (06/26/2017 1648) + + + + | Component | Value | Ref Range | + + + + | WBC | 14.4 (H) | 4.0 - 11.0 K/uL | + + + + | RBC | 2.77 (L) | 3.70 - 5.20 M/uL | + + + + | Hgb | 8.2 (L) | 11.5 - 16.0 g/dL | + + + + | Hct | 24.9 (L) | 34.0 - 47.0 % | + + + + | MCV | 89.7 | 83.0 - 101.0 fL | + + + + | MCH | 29.4 | 28.0 - 35.0 pg | + + + + | MCHC | 32.8 | 32.0 - 36.0 g/dL | + + + + | RDW-CV | 19.3 (H) | <15.0 % | + + + + | Platelet Count | 12 (LL)Comment: Critical Result called to | 140 - 440 K/uL | | | and read back by Oralia Richter RN on | | | | 06/26/2017 at 17:18 by Lakeshia Wallace. | | + + + + | MPV | 10.6 | fL | + + + + + + + | Specimen | Performing Laboratory | + + + | Blood | [facility] [address] | | | [place] [address] | + + + Basic Metabolic Panel (06/26/2017 1648) + + + + | Component | Value | Ref Range | + + + + | NA | 138 | 136 - 149 mmol/L | + + + + | K | 3.7 | 3.5 - 5.1 mmol/L | + + + + | CL | 100 | 98 - 109 mmol/L | + + + + | CO2 | 29 | 24 - 31 mmol/L | + + + + | ANION GAP | 9 | 3 - 16 mmol/L | + + + + | GLUCOSE | 98 | 70 - 109 mg/dL | + + + + | BUN | 8 | 7 - 18 mg/dL | + + + + | Creatinine, | 0.84 | 0.60 - 1.30 mg/dL | | Serum/Plasma | | | + + + + | eGFR if not | >60Comment: GLOMERULAR FILTRATION | >=60 mL/min/1.73m2 | | [place] | RATE,ESTIMATED mL/min/1.21m6Uzvm than | | | | 60 Chronic kidney disease,if found over | | | | a 3-month period.Less than 15 Kidney | | | | failureFor Americans,multiply the | | | | calculated GFR by 1.21. 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 Admitting Diagnoses + + | Diagnosis | + + | Acute Mylogenous Leukemia | + + Administered Medications + +--------+---------+------+------+------+ | Medication Order | MAR | Action | Dose | Rate | Site | | | Action | Date | | | | + +--------+---------+------+------+------+ + +---+ | acetaminophen (TYLENOL) 500 mg | | | tablet Take 500 mg by mouth | | | every 6 hours as needed for Pain | | | (Takes PRN with opiod)., | | | Historical Med | | + +---+ | | | + +---+ | acyclovir (ZOVIRAX) 800 mg | | | tablet Take 800 mg by mouth | | | Daily., Historical Med | | + +---+ | | | + +---+ | albuterol (VENTOLIN HFA) 90 | | | mcg/puff inhaler Inhale into | | | the lungs., Historical Med | | + +---+ | | | + +---+ | calcium carbonate (TUMS) 500 mg | | | chewable tablet Take 1 tablet | | | by mouth as needed for | | | Heartburn., Historical Med | | + +---+ | | | + +---+ | DULoxetine (CYMBALTA) [address] | | | capsule Take 90 mg by mouth | | | Daily., Historical Med | | + +---+ | | | + +---+ | hydrocortisone 1% cream Apply | | | topically 3 times daily as | | | needed (hemorrhoid pain)., | | | Historical Med | | + +---+ | | | + +---+ | levothyroxine (SYNTHROID, | | | LEVOTHROID) 50 mcg tablet Take | | | 50 mcg by mouth every morning | | | (before breakfast)., Historical | | | Med | | + +---+ | | | + +---+ | LORazepam (ATIVAN) 0.5 mg | | | tablet Take 1 tablet by mouth | | | every 8 hours as needed for | | | Anxiety or Insomnia (nausea)., | | | Disp-60 tablet, R-0, Print | | + +---+ | | | + +---+ | ondansetron (ZOFRAN) 4 mg | | | tablet Take 4 mg by mouth every | | | 12 hours as needed., Historical | | | Med | | + +---+ | | | + +---+ | oxybutynin (DITROPAN-XL) 10 MG | | | 24 hr tablet Take 10 mg by mouth | | | Daily., Historical Med | | + +---+ | | | + +---+ | tiotropium (SPIRIVA) 18 mcg | | | inhalation capsule Inhale 18 mcg | | | into the lungs Daily., | | | Historical Med | | + +---+ | | | + +---+ | tiZANidine (ZANAFLEX) 4 mg | | | tablet TAKE ONE TABLET BY MOUTH | | | EVERY 8 HOURS NEEDED FOR | | | MUSCLE SPASMS, Disp-30 tablet, | | | R-1, Normal | | + +---+ | | | + +---+ | traZODone (DESYREL) 100 mg | | | tablet Take 100 mg by mouth | | | nightly., Historical Med | | + +---+ | | | + +---+ +---+ | | +---+ + +--------+ + +------+------+ | Medication Order | MAR | Action | Dose | Rate | Site | | | Action | Date | | | | + +--------+ + +------+------+ | acetaminophen (TYLENOL) tablet | Given | 06/27/2017 | 487.5 mg | | | | 487.5 mg 487.5 mg (rounded from | | 12:36 | | | | | 500 mg), Oral, EVERY 6 HOURS PRN, | | PST | | | | | Pain, Takes PRN with opiod, | | | | | | | Starting 06/26/17 at 1312 | | | | | | + +--------+ + +------+------+ +---+---+ | | | +---+---+ + +-------+ +--------+---+---+ | acyclovir (ZOVIRAX) tablet 800 | Given | 06/27/2017 | 800 mg | | | | mg 800 mg, Oral, DAILY, First | | 8:49 | | | | | dose on Sat06/26/17 at 1345, | | PST | | | | | Indications: Prophylaxis of HSV | | | | | | | Reactivation in HIV-Positive | | | | | | | Patients | | | | | | + +-------+ +--------+---+---+ +-------+ +--------+---+---+ | Given | 06/28/2017 | 800 mg | | | | | 8:46 | | | | | | PST | | | | +-------+ +--------+---+---+ +---+---+ | | | +---+---+ + +---------+ +-----+-------+---+ | cefTAZidime (FORTAZ, TAZICEF) 2 | New Bag | 06/27/2017 | 2 g | 140 | | | g in sodium chloride 0.9% 50 mL | | 21:35 | | mL/hr | | | IVPB 2 g, Intravenous, | | PST | | | | | Administer over 30 Minutes, EVERY | | | | | | | 8 HOURS (3 times per day), First | | | | | | | dose on Sat06/26/17 at 1400, | | | | | | | Keep in refrigerator. | | | | | | + +---------+ +-----+-------+---+ +---------+ +-----+-------+---+ | New Bag | 06/28/2017 | 2 g | 140 | | | | 6:27 | | mL/hr | | | | PST | | | | +---------+ +-----+-------+---+ | New Bag | 06/28/2017 | 2 g | 140 | | | | 14:23 | | mL/hr | | | | PST | | | | +---------+ +-----+-------+---+ +---+---+ | | | +---+---+ + +-------+ +--------+---+---+ | docusate sodium (COLACE) | Given | | 100 mg | | | | capsule 100 mg 100 mg, Oral, 2 | | 8 23:24 | | | | | TIMES DAILY PRN, Constipation, | | PST | | | | | Starting 06/26/17 at 1616, 1st | | | | | | | line agent for constipation | | | | | | | relief. | | | | | | + +-------+ +--------+---+---+ +-------+ +--------+---+---+ | Given | 06/28/2017 | 100 mg | | | | | 8:48 | | | | | | PST | | | | +-------+ +--------+---+---+ + +---+ | | | + +---+ | dronabinol (MARINOL) 10 MG | | | capsule Take by mouth., | | | Historical Med | | + +---+ | | | + +---+ + +-------+ +-------+---+---+ | dronabinol (MARINOL) capsule 10 | Given | | 10 mg | | | | mg 10 mg, Oral, DAILY, First | | 8 17:16 | | | | | dose on Sat06/26/17 at 1345 | | PST | | | | + +-------+ +-------+---+---+ +-------+ +-------+---+---+ | Given | 06/27/2017 | 10 mg | | | | | 8:51 | | | | | | PST | | | | +-------+ +-------+---+---+ | Given | 06/28/2017 | 10 mg | | | | | 8:45 | | | | | | PST | | | | +-------+ +-------+---+---+ +---+---+ | | | +---+---+ + +-------+ +-------+---+---+ | DULoxetine (CYMBALTA) DR | Given | | 90 mg | | | | capsule 90 mg 90 mg, Oral, | | 8 17:16 | | | | | DAILY, First dose on Sat06/26/17 | | PST | | | | | at 1345, Do not open capsule. | | | | | | + +-------+ +-------+---+---+ +-------+ +-------+---+---+ | Given | 06/27/2017 | 90 mg | | | | | 8:50 | | | | | | PST | | | | +-------+ +-------+---+---+ | Given | 06/28/2017 | 90 mg | | | | | 8:46 | | | | | | PST | | | | +-------+ +-------+---+---+ +---+---+ | | | +---+---+ + +-------+ +--------+---+---+ | HYDROmorphone (DILAUDID) | Given | | 0.5 mg | | | | injection 0.25-1 mg 0.25-1 mg, | | 8 22:39 | | | | | Intravenous, EVERY 2 HOURS PRN, | | PST | | | | | Pain, Starting 06/26/17 at | | | | | | | 1616, Use IV morphine first if | | | | | | | ordered. Slow IV push, not faster | | | | | | | than 0.25 mg/minute. If | | | | | | | ineffective or not tolerated and | | | | | | | unable to take oral opioid - | | | | | | | contact MD. | | | | | | + +-------+ +--------+---+---+ +-------+ +--------+---+---+ | Given | 06/27/2017 | 0.5 mg | | | | | 1:39 | | | | | | PST | | | | +-------+ +--------+---+---+ +---+---+ | | | +---+---+ + +-------+ + +---+---+ | hydroxyurea (HYDREA) capsule | Given | 06/28/2017 | 2,000 mg | | | | 2,000 mg 2,000 mg, Oral, EVERY | | 8:48 | | | | | 12 HOURS (2 times per day), First | | PST | | | | | dose on Sat06/28/17 at 0900, For | | | | | | | 2 doses, Chemotherapy: Use | | | | | | | appropriate handling precautions. | | | | | | + +-------+ + +---+---+ +---+---+ | | | +---+---+ + +-------+ +---------+---+---+ | ipratropium (ATROVENT) 500 | Given | 06/28/2017 | 500 mcg | | | | mcg/2.5 mL nebulizer solution 500 | | 3:39 | | | | | mcg 500 mcg, Nebulization, RT | | PST | | | | | Q6H, First dose on Sat06/26/17 at | | | | | | | 1500 | | | | | | + +-------+ +---------+---+---+ +-------+ +---------+---+---+ | Given | 06/28/2017 | 500 mcg | | | | | 8:11 | | | | | | PST | | | | +-------+ +---------+---+---+ | Given | 06/28/2017 | 500 mcg | | | | | 14:35 | | | | | | PST | | | | +-------+ +---------+---+---+ +---+---+ | | | +---+---+ + +-------+ +--------+---+---+ | levothyroxine (SYNTHROID) | Given | 06/27/2017 | 50 mcg | | | | tablet 50 mcg 50 mcg, Oral, | | 6:26 | | | | | DAILY BEFORE BREAKFAST, First | | PST | | | | | dose on Maribel 06/27/17 at 0730, Give | | | | | | | before breakfast. | | | | | | + +-------+ +--------+---+---+ +-------+ +--------+---+---+ | Given | 06/28/2017 | 50 mcg | | | | | 6:30 | | | | | | PST | | | | +-------+ +--------+---+---+ +---+---+ | | | +---+---+ + +-------+ +--------+---+---+ | LORazepam (ATIVAN) tablet 0.5 | Given | 06/28/2017 | 0.5 mg | | | | mg 0.5 mg, Oral, EVERY 8 HOURS | | 16:33 | | | | | PRN, Anxiety, Insomnia, nausea, | | PST | | | | | Starting 06/26/17 at 1315 | | | | | | + +-------+ +--------+---+---+ +---+---+ | | | +---+---+ + +-------+ +--------+---+---+ | magnesium hydroxide (MILK OF | Given | | 30 mLs | | | | MAGNESIA) 400 mg/5 mL suspension | | 8 23:22 | | | | | 30 mL 30 mL, Oral, NIGHTLY PRN, | | PST | | | | | Constipation, Starting Wed | | | | | | | 06/26/17 at 1616, If docusate, | | | | | | | senna, and polyethylene glycol | | | | | | | ineffective x 24 hours or not | | | | | | | ordered | | | | | | + +-------+ +--------+---+---+ +-------+ +--------+---+---+ | Given | 06/27/2017 | 30 mLs | | | | | 21:35 | | | | | | PST | | | | +-------+ +--------+---+---+ +---+---+ | | | +---+---+ + +---------+ +--------+-------+---+ | micafungin (MYCAMINE) 100 mg in | New Bag | | 100 mg | 110 | | | sodium chloride 0.9% 100 mL IVPB | | 8 18:16 | | mL/hr | | | 100 mg, Intravenous, Administer | | PST | | | | | over 1 Hours, EVERY 24 HOURS | | | | | | | INTERVAL, First dose on Sat | | | | | | | 06/26/17 at 1345, Do not | | | | | | | refrigerate. Protect from light. | | | | | | | Flush with NS before and after | | | | | | | giving. | | | | | | + +---------+ +--------+-------+---+ +---------+ +--------+-------+---+ | New Bag | 06/27/2017 | 100 mg | 110 | | | | 14:39 | | mL/hr | | | | PST | | | | +---------+ +--------+-------+---+ | New Bag | 06/28/2017 | 100 mg | 110 | | | | 13:16 | | mL/hr | | | | PST | | | | +---------+ +--------+-------+---+ +---+---+ | | | +---+---+ + +-------+ +------+---+---+ | ondansetron (ZOFRAN ODT) | Given | 06/27/2017 | 4 mg | | | | disintegrating tablet 4 mg 4 mg, | | 1:36 | | | | | Oral, EVERY 12 HOURS PRN, | | PST | | | | | Nausea, Starting 06/26/17 at | | | | | | | 1315 | | | | | | + +-------+ +------+---+---+ +---+---+ | | | +---+---+ + +-------+ +-------+---+---+ | oxybutynin (DITROPAN XL) ER | Given | 06/27/2017 | 10 mg | | | | tablet 10 mg 10 mg, Oral, DAILY, | | 8:49 | | | | | First dose on Sat06/26/17 at | | PST | | | | | 1345 | | | | | | + +-------+ +-------+---+---+ +-------+ +-------+---+---+ | Given | 06/28/2017 | 10 mg | | | | | 8:46 | | | | | | PST | | | | +-------+ +-------+---+---+ +---+---+ | | | +---+---+ + +-------+ +-------+---+---+ | oxyCODONE (ROXICODONE) tablet | Given | 06/28/2017 | 10 mg | | | | 5-15 mg 5-15 mg, Oral, EVERY 3 | | 11:13 | | | | | HOURS PRN, Pain, Starting Wed | | PST | | | | | 06/26/17 at 1616, If ineffective | | | | | | | or not tolerated, contact | | | | | | | prescriber | | | | | | + +-------+ +-------+---+---+ +-------+ +-------+---+---+ | Given | 06/28/2017 | 10 mg | | | | | 14:31 | | | | | | PST | | | | +-------+ +-------+---+---+ | Given | 06/28/2017 | 5 mg | | | | | 16:34 | | | | | | PST | | | | +-------+ +-------+---+---+ +---+---+ | | | +---+---+ + +-------+ +------+---+---+ | polyethylene glycol (MIRALAX) | Given | 06/27/2017 | 17 g | | | | powder 17 g 17 g, Oral, DAILY | | 13:35 | | | | | PRN, Constipation, Starting Wed | | PST | | | | | 06/26/17 at 1616, If docusate and | | | | | | | senna ineffective or not ordered. | | | | | | + +-------+ +------+---+---+ +-------+ +------+---+---+ | Given | 06/28/2017 | 17 g | | | | | 8:43 | | | | | | PST | | | | +-------+ +------+---+---+ +---+---+ | | | +---+---+ + +-------+ +--------+---+---+ | senna (SENOKOT) tablet 8.6 mg | Given | 06/27/2017 | 8.6 mg | | | | 8.6 mg, Oral, 2 TIMES DAILY PRN, | | 13:28 | | | | | Constipation, Starting Wed | | PST | | | | | 06/26/17 at 1616, If docusate | | | | | | | ineffective or not ordered. | | | | | | + +-------+ +--------+---+---+ +-------+ +--------+---+---+ | Given | 06/28/2017 | 8.6 mg | | | | | 8:48 | | | | | | PST | | | | +-------+ +--------+---+---+ +---+---+ | | | +---+---+ + +---------+ +---+-------+---+ | sodium chloride 0.9% (NS) | New Bag | 06/27/2017 | | 100 | | | infusion at 50 mL/hr, | | 22:32 | | mL/hr | | | Intravenous, CONTINUOUS, Starting | | PST | | | | | 06/26/17 at 1645 | | | | | | + +---------+ +---+-------+---+ + + +---+ +---+ | New Bag | 06/28/2017 | | 50 mL/hr | | | | 8:52 | | | | | | PST | | | | + + +---+ +---+ | Rate/Dose Change | 06/28/2017 | | 50 mL/hr | | | | 10:16 | | | | | | PST | | | | + + +---+ +---+ + +---+ | | | + +---+ | sulfamethoxazole-trimethoprim | | | (BACTRIM DS) 800-160 mg per | | | tablet Take 1 tablet by mouth 2 | | | times daily., Historical Med | | + +---+ | | | + +---+ + +-------+ +--------+---+---+ | traZODone (DESYREL) tablet 100 | Given | | 100 mg | | | | mg 100 mg, Oral, NIGHTLY, First | | 8 20:11 | | | | | dose on Sat06/26/17 at 2100 | | PST | | | | + +-------+ +--------+---+---+ +-------+ +--------+---+---+ | Given | 06/27/2017 | 100 mg | | | | | 21:34 | | | | | | PST | | | | +-------+ +--------+---+---+ +---+---+ | | | +---+---+ in this encounter
--- OUTSIDE RECORDS SUMMARY | ~2017-08-27 | XMS ---
Demographics + + + | Address | [address] | | | [address] | | | [place] [address] | + + + | Preferred Language | Unknown | + + + | Marital Status | Unknown | + + + | Buddhist Affiliation | Unknown | + + + | Race | Unknown | + + + | Ethnic Group | Unknown | + + + Author + + + | Author | [facility] | + + + | Organization | [facility] | + + + | Address | [address] | | | [place] [address] | + + + | Phone | | + + + Care Team Providers + + + + | Care Cadmium Plater Name | Role | Phone | + + + + Unavailable | Unavailable | + + + + PROBLEMS + + + + + + + + | Type | Condition | ICD9-CM | [id number] | Onset | Condition | SNOMED | | | | Code | Code | Dates | Status | Code | + + + + + + + + | 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 | | | | | | + + + + + + + + | Assessment | At high | Z91.81 | | 06 September, | Active | [id number] | | | risk for | | | 2017 | | | | | falls | | | | | | + + + + + + + + | Problem | Weakness | | R53.1 | | Active | 54249348 | + + + + + + + + | Problem | Fall | | W19.XXXA | | Active | 8858936 | + + + + + + + + | Problem | SUICIDAL | V62.84 | | | Active | 9009569 | | | IDEATION | | | [...] | 575.10 | | | Active | 70879891 | | | | | | | | | | | cholecysti | | | | | | | | tis | | | | | | + + + + + + + + | Problem | Radiculopa | | M54.17 | | Active | 8001480 | | | thy, | | | | | | | | lumbosacra | | | | | | | | l region | | | | | | + + + + + + + + | Problem | Tobacco | V65.42 | | | Active | [id number] | | | abuse | | | | | | | | counseling | | | | | | + + + + + + + + | 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 | | | | | | + + + + + + + + | Problem | Family | V16.0 | | | Active | [id number] | | | history of | | [...] | | N39.3 | | Active | 39291375 | | | incontinen | | | | | | | | ce | | | | | | | | (female) | | | | | | | | (male) | | | | | | + + + + + + + + | Problem | Facet | M46.96 | | | Active | 960301933 | | | arthropath | | | | | | | | y, lumbar | | | | | | + + + + + + + + | Problem | Radiculopa | | M54.12 | | Active | 52323397 | | | thy, | | | | | | | | cervical | | | | | | | | region | | | | | | + + + + + + + + | Problem | At high | Z91.81 | | | Active | 601864016 | | | risk for | | | | | | | | falls | | | | | | + + + + + + + + | Problem | Mobility | Z74.09 | | | Active | 06465833 | | | impaired | | | | | | + + + + + + + + | Problem | 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 | 61241951 | | | 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 | | | | | | + + + + + + + + | Problem | Lump of | 611.72 | | | Active | 30376357 | | | left | | | | | | | | breast | | | | | | + + + + + + + + | Problem | History of | V12.29 | | | Active | [id number] | | | goiter | | | | | [address] | + + + + + + + + | Problem | Obesity | | E66.9 | | Active | 806244600 | + + + + + + + + | Problem | Tobacco | | Z72.0 | | Active | 896581567 | | | use | | | | | | + + + + + + + + | Problem | Status | Z96.651 | | | Active | [id number] | | | post total | | | | | 02 | | | knee | | | | | | | | replacemen | | | | | | | | t, right | | | | | | + + + + + + + + | Problem | Elevated | | D72.829 | | Active | [id number] | | | white | | | [...] | F33.9 | | | Active | 39743019 | | | depressive | | | [...] | G89.29 | | | Active | 56047447 | | | chronic | | | | | | | | pain | | | | | | + + + + + + + + | Problem | Radiculopa | | M54.16 | | Active | 071089774 | | | thy, | | | | | | | | lumbar | | | | | | | | region | | | | | | + + + + + + + + | Problem | COPD | | J44.9 | | Active | 55348225 | | | (chronic | | | [...] | | E03.9 | | Active | 30283968 | | | dism | | | | | | + + + + + + + + | Problem | Stress | N39.3 | | | Active | 94302310 | | | incontinen | | | | | | | | ce | | | | | | + + + + + + + + | Problem | Pain in | | M25.551 | | Active | 014343944 | | | right hip | | | | | | + + + + + + + + | Problem | Degenerati | M47.816 | | | Active | 80045940 | | | ve | | | [...]
--- OUTSIDE RECORDS SUMMARY | ~2017-08-27 | XMS | Encounter Summary ---
Demographics + + + | Address | [address] | | | [place] [address] | + + + | Home Phone | | + + + | Preferred Language | Unknown | + + + | Marital Status | | + + + | Episcopalian Affiliation | NON | + + + | Race | White | + + + | Ethnic Group | Not or | + + + Author + + + | Author | [facility] | + + + | Organization | [facility] | + + + | Address [...] Team Providers + +------+ + | Care Field Service Rep Name | Role | Phone | + [...] | | | | | | Road [place], [place] | | | | | | [address] | | | +--------+ + + + [...]
--- OUTSIDE RECORDS SUMMARY | ~2017-08-27 | XMS | Encounter Summary ---
Demographics + + + | Address | [address] | | | [place] [address] | + + + | Home Phone | | + + + | Preferred Language | Unknown | + + + | Marital Status | | + + + | Nondenominational Affiliation | Unknown | + + + [...] Hutchison | ECON | [address] [place] | | | | | [address] [place] [address] | | | | | [address] | | + + + + + | Florin Pantoja | ECON | Unknown | | + + + + + Care Team Providers + +------+ + | Care Wooling Machine Operator Name | Role | Phone | + +------+ + | Saurav De Los Santos NP | PCP | | + +------+ + Reason for Visit Evaluate & Treat (Routine) + +--------+ + + + + | Status | Reason | Specialty | Diagnoses / | Referred By | Referred To | | | | | Procedures | Contact | Contact | + +--------+ + + + + | Authorized | | Medical | Diagnoses | [facility] | | | | | Oncology / | Acute | Medical | [place], | | | | Oncology | myeloblastic | Oncology | Daniel French MD | | | | | leukemia, | Clinic [address] | [address] | | | | | in relapse | [address] | [facility] | | | | | (HCC) AML | [place], | [place], [place] | | | | | (acute | [place] | [address] Phone: | | | | | myeloid | [address] | [phone] | | | | | leukemia) in | Phone: | Fax: | | | | | relapse | [phone] | [phone] | | | | | (HCC) | Fax: | | | | | | Procedures | [phone] | | | | | | [place] OFFICE | | | | | | | OUTPATIENT | | | | | | | VISIT 25 | | | | | | | MINUTES | | | | | | | [address] | | | + +--------+ + + + + Encounter Details +--------+ + + + + | Date | Type | Department | Care Team | Description | +--------+ + + + + | 08/12/ | Hospital | [facility] | [facility], | AML (acute myeloid | | 2018 | Encounter | [facility] | Daniel French MD [address] | leukemia) in relapse | | | | ONCOLOGY CLINIC [address] | [facility] | (HCC) (Primary Dx) | | | | [facility] | [place] [address] | | | | | [place] [address] | [phone] | | | | | [phone] | | | +--------+ + + + [...] + + + | Blood Pressure | 90/55 | 08/12/2017 1111 PDT | + + + + | Pulse | 79 | 08/12/2017 1111 PDT | + + + + | Temperature | 35.9 C (96.7 F) | 08/12/2017 1111 PDT | + + + + | Respiratory Rate | 24 | 08/12/2017 1111 PDT | + + + + | Oxygen Saturation | 92% | 08/12/2017 1111 PDT | + + + + | Inhaled Oxygen | - | - | | Concentration | | | + + + + | Weight | 82.3 kg (181 lb 7 | 08/12/2017 1111 PDT | | | oz) | | + + + + | Height | - | - | + + + + | Body Mass Index | 32.15 | 08/12/2017 1111 PDT | + + + + in [...] | + + +--------+---------+ + + | levoFLOXacin | Take 1 tablet by | | | 08/07/19 | | | (LEVAQUIN) 500 mg | mouth Daily. | | | [...] | + + +--------+---------+ + + | loratadine | Take 1 tablet by | | | 08/07/19 | | | (CLARITIN) 10 mg | mouth Daily. | | | [...] | + + +--------+---------+ + + | potassium chloride | Take 2 tablets by | | | 08/07/19 | | | (KLOR-CON) 10 MEQ | mouth 2 times daily. | | | 18 | | | ER tablet | | | | | | [...] | + + +--------+---------+ + + | SORAfenib | Take 2 tablets by | | | 06/30/19 | | | (NEXAVAR) 200 mg | mouth 2 times daily. | | | 18 | | [...] + as of this encounter Progress Notes Daniel Patterson MD - 08/12/2017 1041 PDTFormatting of this note may be different fro m the original. Hematology/Oncology Daily Progress Note [facility] [place] Pt. Name/Age/: Jessy Hutchison 51 y.o. 1965 Med. Record Number: [id number] Date of admission: 08/12/2017 Today's Date: 08/12/17 Location: Room/bed info not found The patient's primary care provider is Saurav De Los Santos NP. Identifying Statement: Jessy Hutchison is a 51 y.o. female from [address] [place] [address] with a second relapse of acute myelogenous leukemia. The patient chart and medications were reviewed in detail and the patient was seen and exam ined. 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 1. Presentation to the [facility] emergency room in [facility] on January 272015 with complaints of cough and odynophagia. Complete blood count was notable for a wh ite count of 117,000, hemoglobin 10.7 g/dL, platelet count of 51,000. She was emergently tr ansferred to the [facility] [place] were bone marrow biopsy and aspiration at [facility] on February 15, 2016 confirmed acute myelogenous [...] Cycle#1 MiDaC (1500 mg/m Cytarabine) consolidation at [facility] on March 27, 2016. 4. Cycle#2 MiDaC (1500 mg/m Cytarabine) consolidation at [facility] on May 01, 2016. 5. Cycle#3 MiDaC (1200 mg/m Cytarabine) consolidation at [facility] on May 28, 2016. 6. Cycle#4 MiDaC (1000 mg/m Cytarabine ) consolidation at [facility] on June 25, 2016. 7. Bone Marrow Biopsy and Aspiration July 23, 2016 at the [facility] in [place], [place] specimen # [id number] demonstrated ongoing complete remissio n. Molecular analysis [...] Hgb 13.8, Hct 41.8%, Platelet count 10,000. [id number] U/L, BUN 14 mg/dL, Scr 0.82 mg/dL. 14. Admit [facility] 03/01/2017; Chest X-ray consis tent with pulmonary leukostasis. Hydroxyurea 2 grams po q 4 hours x 3 doses with no change i n WBC. 15. Transfer to [facility]; bone marrow biopsy and aspiration were performed [...] #1 of high-dose cytarabine consolidation at the [facility] on March 26, 2016. 19. Cycle #2 of cytarabine consolidation at the [facility] [place] on Apr. 20. Cycle #3 of cytarabine consolidation at the [facility] in [place], [place], May 28, 2016. 21. Cycle #4 of cytarabine consolidation chemotherapy at the [facility] in [place], [place], June 25, 2016. 22. Repeat bone marrow biopsy and aspiration on July 23, 2016, at the [facility] in [place], [place], specimen #[id number] demonstrating ongo ing complete remission. Molecular analysis [...] tap) June 21, 2017 ([facility] [id number]); 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 myelogenous leukemia (60%); Blasts po sitive for CD117 and CD 33, negative for CD34, CD71, CD61, CD3 and PAX-5. 28. Admitted to [facility], June 28, 2017. Status post Idarubicin/Cytarabine re-induction chemoth erapy. 29. Repeat bone marrow biopsy July 29, 2017; 80% myeloblasts, discharged from [facility] on August 08, 2017, Current Assessment & Plan Jessy Hutchison returned to clinic on 08/12/2017 with her , Jhony, for follow up, six weeks after failed re-induction chemotherapy with idarubicin/cytarabine at [facility]. Review of systems includes fevers, nausea, vomiting, weight loss and diffuse bone pain. Clinical exam is notable for diffuse cutaneous and mucosal petechiae. Laboratory exam is notable for grade 4 thrombocytopenia and grade 4 neutropenia. 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 Plan; Cross over to sorafenib 400 mg po bid. Platelet transfusion today. Continue prophylactic levofloxacin, acyclovir and Noxafil. Laboratory evaluation tomorrow. Follow up on August 14 in [place]. Review of Systems: REVIEW OF SYSTEMS Constitutional: Reports energy level has been pretty good. Reports fever of 100.4 08/09/17, none since. Reports shaking chills. Reports "a lot" of nausea, some vomiting, states usually small stephanie of clear sputum/vomit. Reports occasional night sweats. Down 6 kg since 06/27/17 . Reports appetite varies. Denies high fevers, anorexia. Ear, Nose, Mouth, Throat: Denies odynophagia, dysphagia. Tinnitus continues, unchanged. Cardiovascular: Denies shortness of breath, dyspnea on exertion, chest pain, palpitations o r orthopnea. Respiratory: Reports cough with clear sputum production. Denies hemoptysis. Gastrointestinal: Reports low abdominal/pelvic pain. Reports constipation, no BM for last 4 days. Denies diarrhea, melena, or bright red blood per rectum. Genitourinary: Denies hematuria or dysuria. Musculoskeletal: Reports tailbone pain that radiates down legs. Also has generalized joint pain. Neurologic: Reports intermittent headaches. Has blurry vision. Reports numbness and tinglin g in hands and feet, unchanged. Endocrine: Reports edema in feet and lower legs since recent hospitalization. Denies heat/ cold intolerance. Hematologic: Denies spontaneous bruising or bleeding. Integumentary: Reports quarter sized red joseph on left arm and both legs, more on right leg than left, states they are itchy, not painful. States they popped up while in hospital. Pain: 5/10 generalized pain. Took 5mg oxycodone this morning, states this is effective. Note: Here for follow up. My chart: Pending Scheduled Medications: Current Outpatient Prescriptions Medication Sig Dispense Refill acetaminophen (TYLENOL) 500 mg tablet Take 500 mg by mouth every 6 hours as needed for Pain (Takes PRN with opiod). acyclovir (ZOVIRAX) 800 mg tablet Take 800 mg by mouth Daily. albuterol (VENTOLIN HFA) 90 mcg/puff inhaler Inhale into the lungs. amLODIPine (NORVASC) 10 MG tablet Take 1 tablet by mouth Daily. calcium carbonate (TUMS) 500 mg chewable tablet Take 1 tablet by mouth as needed for He artburn. DULoxetine (CYMBALTA) [address] capsule Take 90 mg by mouth Daily. hydrocortisone 1% cream Apply topically 3 times daily as needed (hemorrhoid pain). levoFLOXacin (LEVAQUIN) 500 mg tablet Take 1 tablet by mouth Daily. levothyroxine (SYNTHROID, LEVOTHROID) 50 mcg tablet Take 50 mcg by mouth every morning (before breakfast). lisinopril (PRINIVIL, ZESTRIL) 5 mg tablet Take 1 tablet by mouth Daily. loratadine (CLARITIN) 10 mg tablet Take 1 tablet by mouth Daily. LORazepam (ATIVAN) 0.5 mg tablet Take 1 tablet by mouth every 8 hours as needed for Anx iety or Insomnia (nausea). 60 tablet [address] tablet Take by mouth. omeprazole (PRILOSEC) 20 mg capsule Take 1 capsule by mouth Daily. ondansetron (ZOFRAN) 4 mg tablet Take 4 mg by mouth every 12 hours as needed. oxybutynin (DITROPAN-XL) 10 MG 24 hr tablet Take 10 mg by mouth Daily. oxyCODONE (ROXICODONE) 5 mg tablet Take 1-3 tablets by mouth every 6 hours as needed. potassium chloride (KLOR-CON) 10 MEQ ER tablet Take 2 tablets by mouth 2 times daily. prochlorperazine (COMPAZINE) 5 mg tablet Take 1-2 tablets by mouth 4 times daily as nee ded. salmeterol (SEREVENT DISKUS) 50 mcg/puff diskus inhaler Inhale 1 puff into the lungs Da eric. SORAfenib (NEXAVAR) 200 mg tablet Take 2 tablets by mouth 2 times daily. tiotropium (SPIRIVA) 18 mcg inhalation capsule Inhale 18 mcg into the lungs Daily. tiZANidine (ZANAFLEX) 4 mg tablet TAKE ONE TABLET BY MOUTH EVERY 8 HOURS NEEDED FOR MUSCLE SPASMS 30 tablet 1 traZODone (DESYREL) 100 mg tablet Take 100 mg by mouth nightly. No current facility-administered medications for this encounter. Facility-Administered Medications Ordered in Other Encounters Medication Dose Route Frequency Provider Last Rate Last Dose heparin 100 units/mL flush injection 500 Units 5 mL Intercatheter PRN Daniel stahl MD 500 Units at 08/12/17 1525 Allergies: Allergy: Allergies Allergen Reactions Morphine Swelling and Rash Other reaction(s): No Reaction Indicated Rash and facial swelling Rash and facial swelling Cefepime Rash Past Medical and Surgical History, Social History and Problems: Past Medical History: Diagnosis Date Anxiety Bronchitis Cancer (HCC) Chronic constipation COPD (chronic obstructive pulmonary disease) ([facility]) Depression Hyperinflation of lungs Hypothyroidism Insomnia Leukemia in remission ([facility]) Posttraumatic stress disorder Right buttock pain 12/12/2016 Sciatica Thyroid disorder Past Surgical History: Procedure Laterality Date BONE MARROW BIOPSY N/A 07/23/2016 Procedure: BIOPSY / ASPIRATION BONE MARROW; Surgeon: Daniel Patterson MD; Location: [facility] SHORT STAY CARPAL TUNNEL RELEASE 2004 [facility] [place] CHOLECYSTECTOMY 06/2013 [facility] [place]. JOINT REPLACEMENT 01/2014 Knee replacement KNEE ARTHROPLASTY Right 01/2014 [facility] [place]. PARTIAL HYSTERECTOMY 1989 [facility] [place]. Social History Social History Marital status: [...] No Known Problems Paternal Grandfather Objectives: Temp: 35.9 C (96.7 F) BP: 90/55 Pulse: 79 Resp: 24 SpO2: 92 % on Min/Max Temp past 24 hours:Temp Av.2 C (97.1 F) Min: 35.9 C (96.6 F) Max: 3 6.5 C (97.7 F) No intake or output data in the 24 hours ending 08/12/172011 Wt. Admission: Weight: 82.3 kg (181 lb 7 oz) Wt. Current: Weight: 82.3 kg (181 lb 7 oz) Wt Readings from Last 3 Encounters: 06/27/17 88.2 kg (194 lb 7.1 oz) 03/02/17 91.4 kg (201 lb 8 oz) 12/12/16 88.5 kg (195 lb) Physical Exam: General: The patient is alert and oriented. No acute distress. Eyes: conjunctiva clear. Sclera are anicteric. ENMT: Oropharynx notable for mucosal petechiae. Cardiovascular: Rapid rate and regular rhythm, no rubs, gallops, or murmurs. Lungs: Left basilar rales. Chest: Patient does not have a port-a-cath. Abdomen: Soft, nontender, no hepatospenomegaly. No palpable masses. Bowel sounds present. Extremities: Her left upper extremity double lumen PICC line is clean, dry and intact. Skin: bilateral lower extremity confluent petechiae are present. Lymph: No palpable nodes in the neck, [...] Chavez., Maggie Fairchild., Yariel Arevalo., Leonel Zurita., Alannah Villela., Matthew Horton., [place], P .P.: Toxicity And Response Criteria Of The Eastern Cooperative Oncology Group. Am J Clin Onc ol 5:649-655, 1982. The ECOG Performance Status is in the public domain therefore available for public use. To duplicate the scale, please cite the reference above and credit the Eastern Cooperative Onco logy Group, Daniel Cheema M.D., Group Chair Diagnostic studies: Available data and images were reviewed personally. See reports. Significant results and findings are addressed here or in the Assessment and Plan. Results for JESSY HUTCHISON ( ) as of 08/12/2017 19:51 Ref. Range 08/12/2017 11:22 WBC Latest Ref Range: 4.0 - 11.0 K/uL 0.3 (LL) WBC morphology Unknown Normal RBC COUNT Latest Ref Range: 3.70 - 5.20 M/uL 3.09 (L) Hgb Latest Ref Range: 11.5 - 16.0 g/dL 8.7 (L) Hct, Final Latest Ref Range: 34.0 - 47.0 % 25.4 (L) MCV Latest Ref Range: 83.0 - 101.0 fL 82.1 (L) MCH Latest Ref Range: 28.0 - 35.0 pg 28.1 MCHC Latest Ref Range: 32.0 - 36.0 g/dL 34.2 RDW-CV Latest Ref Range: <15.0 % 13.1 Platelet Count Latest Ref Range: 140 - 440 K/uL 1 (LL) MPV Latest Units: fL 13.0 Absolute Neutrophils Latest Ref Range: 1.80 - 8.50 K/uL 0.00 (L) Absolute Lymphocytes Latest Ref Range: 0.60 - 3.20 K/uL 0.00 (L) Absolute Monocytes Latest Ref Range: 0.00 - 1.00 K/uL 0.30 Absolute Eosinophils Latest Ref Range: 0.00 - 0.40 K/uL 0.00 Absolute Basophils Latest Ref Range: 0.00 - 0.10 K/uL 0.00 % Neutrophils Latest Ref Range: 45.0 - 82.0 % 11.9 (L) % Lymphocytes Latest Ref Range: 20.0 - 45.0 % 3.4 (L) % Monocytes Latest Ref Range: 4.0 - 12.0 % 83.9 (H) % Eosinophils Latest Ref Range: 0.0 - 5.0 % 0.6 % Basophils Latest Ref Range: 0.0 - 1.0 % 0.2 Hypochromasia Latest Ref Range: (none) Marked (A) Platelet estimate Latest Ref Range: Adequate Decreased (A) NA Latest Ref Range: 136 - 149 mmol/L 129 (L) K Latest Ref Range: 3.5 - 5.1 mmol/L 3.6 Chloride Latest Ref Range: 98 - 109 mmol/L 98 Carbon dioxide Latest Ref Range: 24 - 31 mmol/L 25 ANION GAP Latest Ref Range: 3 - 16 mmol/L 6 GLUCOSE Latest Ref Range: 70 - 109 mg/dL 133 (H) BUN Latest Ref Range: 7 - 18 mg/dL 3 (L) Creatinine Latest Ref Range: 0.60 - 1.30 mg/dL 0.63 BUN/CREA Unknown 4.8 ALBUMIN Latest Ref Range: 3.2 - 5.0 g/dL 2.2 (L) Albumin/Globulin ratio Latest Ref Range: 0.8 - 2.0 0.8 Total protein Latest Ref Range: 6.0 - 7.8 g/dL 4.8 (L) EGFR IF NOT Latest Ref Range: >=60 mL/min/1.73m2 >60 Calcium Latest Ref Range: 8.3 - 10.5 mg/dL 7.8 (L) ALK PHOS Latest Ref Range: 40 - 110 U/L 131 (H) ALT (SGPT) (REF) Latest Ref Range: 6 - 45 U/L 17 AST (SGOT) (REF) Latest Ref Range: 10 - 42 U/L 19 LDH TOTAL Latest Ref Range: 91 - 180 U/L 208 (H) Bilirubin Total Latest Ref Range: 0.1 - 1.5 mg/dL 0.6 GLOBULIN Latest Ref Range: 2.1 - 3.8 g/dL 2.6 Pharmacovigilance: Post transfusion platelet count: Results for JESSY HUTCHISON ( ) as of 08/12/2017 19:51 Ref. Range 08/12/2017 15:23 Platelet Count Latest Ref Range: 140 - 440 K/uL 9 (LL) MPV Latest Units: fL 8.5 Palliative Care: Procedure: Transfusion of single donor, CMV safe, filtered irradiated platelets. Daniel Patterson MD Portions of this chart may have been created with [employer] recognition software. Occasi onal wrong-word or sound-alike substitutions may have occurred due to the inherent esparza itations of voice recognition software. Please read the chart carefully and recognize, using context, where these substitutions have occurred.in this encounter Plan of Treatment Not on fileas of this encounter Results Slide Review, Peripheral Smear (08/12/2017 1122) + + + + | Component | Value | Ref Range | + + + + | WBC MORPHOLOGY | Normal | | + + + + | Platelet Estimate | Decreased (A) | Adequate | + + + + | HYPOCHROMIA | Marked (A) | (none) | + + + + + + + | Specimen | Performing Laboratory | + + + | Blood | [facility] [address] | | | [place] [address] | + + + + + | Narrative | + + | Consistent with Automated results | + + Extra Plain Red Top Tube (08/12/20171121) + +-------+ + | Component | Value | Ref Range | + +-------+ + | Extra Plain Red Top | Done | | | Tube | | | + +-------+ + + + + | Specimen | Performing Laboratory | + + + | Blood | [facility] [address] | | | [place] [address] | + + + Lactate Dehydrogenase (08/12/20171121) + +---------+ + | Component | Value | Ref Range | + +---------+ + | LDH TOTAL | 208 (H) | 91 - 180 U/L | + +---------+ + + + + | Specimen | Performing Laboratory | + + + | Blood | [facility] [address] | | | [place] [address] | + + + Comprehensive Metabolic Panel (08/12/20172) + + + + | Component | Value | Ref Range | + + + + | NA | 129 (L) | 136 - 149 mmol/L | + + + + | K | 3.6 | 3.5 - 5.1 mmol/L | + + + + | CL | 98 | 98 - 109 mmol/L | + + + + | CO2 | 25 | 24 - 31 mmol/L | + + + + | ANION GAP | 6 | 3 - 16 mmol/L | + + + + | GLUCOSE | 133 (H) | 70 - 109 mg/dL | + + + + | BUN | 3 (L) | 7 - 18 mg/dL | + + + + | Creatinine, | 0.63 | 0.60 - 1.30 mg/dL | | Serum/Plasma | | | + + + + | eGFR if not | >60Comment: GLOMERULAR FILTRATION | >=60 mL/min/1.73m2 | | CENTRAL AFRICAN | RATE,ESTIMATED mL/min/1.54o6Wgxl than | | | | 60 Chronic kidney disease,if found over | | | | a 3-month period.Less than 15 Kidney | | | | failureFor Americans,multiply the | | | | calculated GFR by 1.21. | | | | | | | | | | + + + + | CALCIUM | 7.8 (L) | 8.3 - 10.5 mg/dL | + + + + | ALBUMIN | 2.2 (L) | 3.2 - 5.0 g/dL | + + + + | Bilirubin Total | 0.6Comment: This is an appended report. | 0.1 - 1.5 mg/dL | | | These results have been appended to a | | | | previously preliminary verified report. | | + + + + | Total protein | 4.8 (L) | 6.0 - 7.8 g/dL | + + + + | AST | 19Comment: This is an appended report. | 10 - 42 U/L | | | These results have been appended to a | | | | previously preliminary verified report. | | + + + + | ALT | 17Comment: This is an appended report. | 6 - 45 U/L | | | These results have been appended to a | | | | previously preliminary verified report. | | + + + + | ALK PHOS | 131 (H)Comment: This is an appended report. | 40 - 110 U/L | | | These results have been appended to a | | | | previously preliminary verified report. | | + + + + | GLOBULIN | 2.6 | 2.1 - 3.8 g/dL | + + + + | Albumin/Globulin | 0.8 | 0.8 - 2.0 | | ratio | | | + + + + | BUN/CREA | 4.8 | | + + + + + + + | Specimen | Performing Laboratory | + + + | Blood | [facility] [address] | | | [place] [address] | + + + CBC w/ Auto Differential (08/12/2017 1122) + + + + | Component | Value | Ref Range | + + + + | WBC | 0.3 (LL)Comment: Critical Result called to | 4.0 - 11.0 K/uL | | | and read back by Nancy Leon RN on | | | | 08/12/2017 at 11:54 by Kolton Cisse. | | + + + + | RBC | 3.09 (L) | 3.70 - 5.20 M/uL | + + + + | Hgb | 8.7 (L) | 11.5 - 16.0 g/dL | + + + + | Hct | 25.4 (L) | 34.0 - 47.0 % | + + + + | MCV | 82.1 (L) | 83.0 - 101.0 fL | + + + + | MCH | 28.1 | 28.0 - 35.0 pg | + + + + | MCHC | 34.2 | 32.0 - 36.0 g/dL | + + + + | RDW-CV | 13.1 | <15.0 % | + + + + | Platelet Count | 1 (LL)Comment: Critical Result called to | 140 - 440 K/uL | | | and read back by Nancy Leon RN on | | | | 08/12/2017 at 11:54 by Kolton Cisse. | | + + + + | MPV | 13.0 | fL | + + + + | % Neutrophils | 11.9 (L) | 45.0 - 82.0 % | + + + + | % Lymphocytes | 3.4 (L) | 20.0 - 45.0 % | + + + + | % Monocytes | 83.9 (H) | 4.0 - 12.0 % | + + + + | % Eosinophils | 0.6 | 0.0 - 5.0 % | + + + + | % Basophils | 0.2 | 0.0 - 1.0 % | + + + + | Absolute Neutrophils | 0.00 (L) | 1.80 - 8.50 K/uL | + + + + | Absolute Lymphocytes | 0.00 (L) | 0.60 - 3.20 K/uL | + + + + | Absolute Monocytes | 0.30 | 0.00 - 1.00 K/uL | + + + + | Absolute Eosinophils | 0.00 | 0.00 - 0.40 K/uL | + + + + | Absolute Basophils | 0.00 | 0.00 - 0.10 K/uL | + + + + + + + | Specimen | Performing Laboratory | + + + | Blood | [facility] [address] | | | [place] [address] | + + + in this encounter Visit Diagnoses + + | Diagnosis | + + | 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
--- OUTSIDE RECORDS SUMMARY | ~2017-08-27 | XMS | Clinical Summary ---
Demographics + + + | Address | [address] | | | [place] [address] | + + + | Home Phone | | + + + | Preferred Language | Unknown | + + + | Marital Status | | + + + | Sabianism Affiliation | Unknown | + + + | Race | Unknown | + + + | Ethnic Group | Unknown | + + + Author + + + | Author | [facility] | | | and [place] | + + + | Organization | [facility] | | | and [place] | + + + | Address | Unknown | + + + | Phone | Unavailable | + + + Support + + + + + | Name | Relationship | Address | Phone | + + + + + | Jhony Hutchison | ECON | [address] [place] [address] | | | | | [address] | | | | | [address] | | + + + + + | Florin Pantoja | ECON | Unknown | | + + + + + Care Team Providers + +------+ + | Care Showroom Salesperson Name | Role | Phone | + +------+ + | Saurav De Los Santos NP | PP | | + +------+ + Allergies + + + + + + | Active Allergy | Reactions | Severity | Noted | Comments | | | | | Date | | + + + + + + | Cefepime | Rash | Low | 03/22/20 | | | | | | 17 | | + + + + + + | Morphine | Swelling, Rash | Medium | 02/15/20 | Other reaction(s): | | | | | 16 | No Reaction | | | | | | Indicated Rash and | | | | | | facial swelling | | | | | | Rash and facial | | | | | | swelling | + + + + + + Current Medications + + +--------+---------+------+------+-------+ | Prescription | Sig. | Disp. | Refills | Star | End | Statu | | | | | | t | Date | s | | | | | | Date | | | + + +--------+---------+------+------+-------+ | oxybutynin | Take 10 mg by mouth | | | 12/29 | | Activ | | (DITROPAN-XL) 10 MG | Daily. | | | 10/16 | | e | | 24 hr tablet | | | | 16 | | | + + +--------+---------+------+------+-------+ | ondansetron | Take 4 mg by mouth | | | 02/27 | | Activ | | (ZOFRAN) 4 mg tablet | every 12 hours as | | | 09/15 | | e | | | needed. | | | 16 | | | + + +--------+---------+------+------+-------+ | levothyroxine | Take 50 mcg by mouth | | | | | Activ | | (SYNTHROID, | every morning | | | | | e | | LEVOTHROID) 50 mcg | (before breakfast). | | | | | | | tablet | | | | | | | + + +--------+---------+------+------+-------+ | traZODone | Take 100 mg by mouth | | | | | Activ | | (DESYREL) 100 mg | nightly. | | | | | e | | tablet | | | | | | | + + +--------+---------+------+------+-------+ | hydrocortisone 1% | Apply topically 3 | | | | | Activ | | cream | times daily as | | | | | e | | | needed (hemorrhoid | | | | | | | | pain). | | | | | | + + +--------+---------+------+------+-------+ | acyclovir | Take 800 mg by mouth | | | 01/2 | | Activ | | (ZOVIRAX) 800 mg | Daily. | | | 11/15 | | e | | tablet | | | | 17 | | | + + +--------+---------+------+------+-------+ | DULoxetine | Take 90 mg by mouth | | | | | Activ | | (CYMBALTA) [address] | Daily. | | | | | e | | capsule | | | | | | | + + +--------+---------+------+------+-------+ | acetaminophen | Take 500 mg by mouth | | | | | Activ | | (TYLENOL) 500 mg | every 6 hours as | | | | | e | | tablet | needed for Pain | | | | | | | | (Takes PRN with | | | | | | | | opiod). | | | | | | + + +--------+---------+------+------+-------+ | tiotropium | Inhale 18 mcg into | | | | | Activ | | (SPIRIVA) 18 mcg | the lungs Daily. | | | | | e | | inhalation capsule | | | | | | | + + +--------+---------+------+------+-------+ | albuterol | Inhale into the | | | 02/27 | | Activ | | (VENTOLIN HFA) 90 | lungs. | | | 5/20 | | e | | mcg/puff inhaler | | | | 16 | | | + + +--------+---------+------+------+-------+ | calcium carbonate | Take 1 tablet by | | | | | Activ | | (TUMS) 500 mg | mouth as needed for | | | | | e | | chewable tablet | Heartburn. | | | | | | + + +--------+---------+------+------+-------+ | tiZANidine | TAKE ONE TABLET BY | 30 | 1 | 10/0 | | Activ | | (ZANAFLEX) 4 mg | MOUTH EVERY 8 HOURS | tablet | | 2/20 | | e | | tablet | NEEDED FOR MUSCLE | | | 17 | | | | | SPASMS | | | | | | + + +--------+---------+------+------+-------+ | LORazepam (ATIVAN) | Take 1 tablet by | 60 | 0 | 02/0 | | Activ | | 0.5 mg | mouth every 8 hours | tablet | | 5/20 | | e | | tabletIndications: | as needed for | | | 18 | | | | Nausea | Anxiety or Insomnia | | | | | | | | (nausea). | | | | | | + + +--------+---------+------+------+-------+ | amLODIPine | Take 1 tablet by | | | 02/0 | | Activ | | (NORVASC) 10 MG | mouth Daily. | | | 09/15 | | e | | tablet | | | | 18 | | | + + +--------+---------+------+------+-------+ | levoFLOXacin | Take 1 tablet by | | | 07/28 | | Activ | | (LEVAQUIN) 500 mg | mouth Daily. | | | 020 | | e | | tablet | | | | 18 | | | + + +--------+---------+------+------+-------+ | lisinopril | Take 1 tablet by | | | /2 | | Activ | | (PRINIVIL, ZESTRIL) | mouth Daily. | | | 10/16 | | e | | 5 mg tablet | | | | 18 | | | + + +--------+---------+------+------+-------+ | loratadine | Take 1 tablet by | | | 07/28 | | Activ | | (CLARITIN) 10 mg | mouth Daily. | | | 020 | | e | | tablet | | | | 18 | | | + + +--------+---------+------+------+-------+ | omeprazole | Take 1 capsule by | | | 05/30 | | Activ | | (PRILOSEC) 20 mg | mouth Daily. | | | 07/16 | | e | | capsule | | | | 18 | | | + + +--------+---------+------+------+-------+ | oxyCODONE | Take 1-3 tablets by | | | 05/31 | | Activ | | (ROXICODONE) 5 mg | mouth every 6 hours | | | 05/18 | | e | | tablet | as needed. | | | 18 | | | + + +--------+---------+------+------+-------+ | NOXAFIL [address] | Take by mouth. | | | 05/30 | | Activ | | tablet | | | | 01/16 | | e | | | | | | 18 | | | + + +--------+---------+------+------+-------+ | potassium chloride | Take 2 tablets by | | | 07/28 | | Activ | | (KLOR-CON) 10 MEQ | mouth 2 times daily. | | | 0 | | e | | ER tablet | | | | 18 | | | + + +--------+---------+------+------+-------+ | prochlorperazine | Take 1-2 tablets by | | | 01/2 | | Activ | | (COMPAZINE) 5 mg | mouth 4 times daily | | | 6/20 | | e | | tablet | as needed. | | | 18 | | | + + +--------+---------+------+------+-------+ | salmeterol | Inhale 1 puff into | | | 04/1 | | Activ | | (SEREVENT DISKUS) 50 | the lungs Daily. | | | 3/20 | | e | | mcg/puff diskus | | | | 16 | | | | inhaler | | | | | | | + + +--------+---------+------+------+-------+ | SORAfenib | Take 2 tablets by | | | 03/0 | | Activ | | (NEXAVAR) 200 mg | mouth 2 times daily. | | | 3/20 | | e | | tablet | | | | 18 | | | + + +--------+---------+------+------+-------+ | dronabinol | Take by mouth. | | | 12/0 | 04/1 | Disco | | (MARINOL) 10 MG | | | | 2/20 | 6/20 | ntinu | | capsule | | | | 16 | 18 | ed | + + +--------+---------+------+------+-------+ | | Take 1 tablet by | | | | 04/1 | Disco | | sulfamethoxazole-tri | mouth 2 times daily. | | | | 620 | ntinu | | methoprim (BACTRIM | | | | | 18 | ed | | DS) 800-160 mg per | | | | | | | | tablet | | | | | | | + + +--------+---------+------+------+-------+ Active Problems + + + | Problem | Noted Date | + + + | Thyroid nodule | 06/22/2016 | + + + + + | Overview: Left thyroid nodule, discovered incidentally on | | June 21, 2016 CT scan; 3.9 cm x 3.1 cm. Last Assessment & | | Plan: Plan; observation. Elective ENT evaluation following | | hematopoietic recovery from consolidation chemotherapy for AML. | + + + + + | Chronic constipation | 05/28/2016 | + + + + + | Last Assessment & Plan: Daily laxative. 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 Presentation | | to the [facility] emergency room in [facility] on | | February 14, 2016 with complaints of cough and odynophagia. | | Complete blood count was notable for a white count of 117,000, | | hemoglobin 10.7 g/dL, platelet count of 51,000. She was | | emergently transferred to the [facility] and science | | [place] were bone marrow biopsy and aspiration at [facility] on | | February 15, 2016 confirmed acute myelogenous leukemia, diploid, | | positive for FLT-3 tyrosine kinase domain mutation (also positive | | for NPM1, DNMT3A, NRAS, NPM1 and TET2 mutations).2. Induction | | chemotherapy with conventional 7+3 cytarabine/idarubicin January | 2015 with continuous daily dasatinib (Sprycel) complicated by | | fungal pneumonia, neutropenic fever, hidradenitis suppurativa, | | and Clostridium Difficile colitis. Repeat bone marrow biopsy on | | March 14, 2016 (day 28); First complete remission.3. Cycle#1 | | MiDaC (1500 mg/m Cytarabine) consolidation at [facility] on February | | 2015.4. Cycle#2 MiDaC (1500 mg/m Cytarabine) consolidation | | at [facility] on May 01, 2016.5. Cycle#3 MiDaC (1200 mg/m | | Cytarabine) consolidation at [facility] on May 28, 2016.6. Cycle#4 | | MiDaC (1000 mg/m Cytarabine ) consolidation at [facility] on | | June 25, 2016.7. Bone Marrow Biopsy and Aspiration July 23 | | 2016 at the [facility] in [facility] | | [place], [place] specimen # [id number] demonstrated ongoing complete | | remission. Molecular analysis was negative for any residual NPM1 | | mutation positive cells and negative for any FLT-3 mutation | | positive cells (sensitivity is 1 in 20,000).8. CBC on December 25, | | 2016; WBC 5,000, Hgb 14.6 gm/dl, Hct 42.7, Platelet 138,000.9. | | MRI of right hip on January 25, 2017 in anticipation of right | | hip replacement; numerous subcentimeter round marrow repacing | | lesions within the visualized lower lumbar spine, pelvis, and | | femurs.10. CT Chest/Abdomen/Pelvis on February 06, 2017; 3 cm left | | thyroid mass, no other suggestion of primary neoplasm.11. Bone | | scan February 08, 2017; Normal.12. PET/CT scan on February 27 | | 2016; diffuse uptake about the spleen and bone marrow.13. CBC on | | March 01, 2017; WBC 103,5000 (92% blasts) Hgb 13.8, Hct 41.8%, | | Platelet count 10,000. [id number] U/L, BUN 14 mg/dL, Scr 0.82 | | mg/dL.14. Admit [facility] | | [place] 03/01/2017; Chest X-ray consistent with pulmonary leukostasis. | | Hydroxyurea 2 grams po q 4 hours x 3 doses with no change in | | WBC.15. Transfer to [facility]; bone marrow biopsy and aspiration were | | performed on February 15, 2016, and confirmed acute myelogenous | | leukemia, diploid, positive for FLT-3 tyrosine kinase domain | | mutation, positive for NPM1 mutation, positive for DNMT3A | | mutation, positive for NRAS mutation, positive for TET | | mutation.16. Induction chemotherapy with conventional 7+3 | | cytarabine/idarubicin chemotherapy, February 24, 2016, with | | continuous daily dasatinib (Sprycel) complicated by fungal | | pneumonia, neutropenic fever, hidradenitis suppurativa, and | | Clostridium difficile colitis.17. Bone marrow biopsy performed on | | day 28, February 12, 2016, demonstrated a first complete | | remission.18. Cycle #1 of high-dose cytarabine consolidation at | | the [facility] on March 26, 2016.19. | | Cycle #2 of cytarabine consolidation at the [facility] and | | [facility] on May 01, 2016.20. Cycle #3 of cytarabine | | consolidation at the [facility] | | in [place], [place], May 28, 2016.21. Cycle #4 of | | cytarabine consolidation chemotherapy at the [facility] | | [facility] in [place], [place], June 25 | | 2016.22. Repeat bone marrow biopsy and aspiration on July 23, | | 2016, at the [facility] in [facility] | [place], [place], specimen #[id number] demonstrating ongoing | | complete remission. Molecular analysis was negative for any | | residual NPM1 mutation positive cells and negative for any FLT-3 | | mutation positive cells (sensitivity is 1 in 20,000).23. Complete | | blood count on December 25, 2016, hemoglobin 14.6, hematocrit | | 42.7%, platelet count 138,000, white count 5000.24. Repeat | | complete blood count on March 01, 2017, white count 103,500 | | with 92% blasts. Hemoglobin 13.8 g/dL, hematocrit 41.8%, platelet | | count 10,000. BUN was 14, creatinine 0.82, estimated GFR 73. | | LDH was 4427 units/L (upper limits of normal 215 units/L). Repeat | | [employer] analysis; NPM1 mut positive, DNMT3A mut positive, | | NRAS mut positive, FLT3 TKD mut positive (both D835A and N841K), | | TET2 mut positive.25. Status post FLAG-SAL + midostaurin | | reinduction March 02, 2017, with second complete remission.26. | | One Cycle of maintenance azacytidine (Vidaza) on May 06, 2017 | | with midostaurin, complicated by prolonged pancytopenia.27. | | Repeat bone marrow biopsy only (dry tap) June 21, 2017 | | ([facility] [id number]); Hypercellular marrow (90%) | | with relapsed acute myelogenous leukemia (60%); Blasts positive | | for CD117 and CD 33, negative for CD34, CD71, CD61, CD3 and | | PAX-5.28. Admitted to [facility], June 28, 2017. Status post | | Idarubicin/Cytarabine re-induction chemotherapy.29. Repeat bone | | marrow biopsy July 29, 2017; 80% myeloblasts, discharged from | | [facility] on August 08, 2017, Last Assessment & Plan: Rhea Rogers | | Foster returned to clinic on 08/12/2017 with her , Jhony, for | | follow up, six weeks after failed re-induction chemotherapy with | | idarubicin/cytarabine at [facility].Review of systems includes fevers, | | nausea, vomiting, weight loss and diffuse bone pain.Clinical | | exam is notable for diffuse cutaneous and mucosal | | petechiae.Laboratory exam is notable for grade 4 thrombocytopenia | | and grade 4 neutropenia.Assessment; 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 | + + Resolved Problems + + + + | Problem | Noted | Resolved | | | Date | Date | + + + + | Right buttock pain | 12/13/19 | | | | 17 | 7 | + + + + | Liver enzyme elevation | 04/05/20 | | | | 16 | 7 | + + + + + + | Overview: Improved after stopping voriconazole.Hepatitis | | screen negative. Last Assessment & Plan: Improved following a | | dose reduction of voriconazole. | + + + + + + | Aspergillus pneumonia (HCC) | 04/03/20 | | | | 16 | 7 | + + + + + + | Overview: Unconfirmed, diagnosed during induction | | chemotherapy at [facility].Repeat CT scan on June 21, 2016 at [facility] | | "Interval complete resolution of previously described pulmonary | | infectiousProcess."Voriconizole therapy completed May 2016. | | Last Assessment & Plan: CT of chest was performed today and | | images were reviewed with the patient and her spouse.Assessment: | | there are no signs of aspergillus pneumonia on today's CT | | scan.PLAN; I instructed the patient to exhaust her current supply | | of voriconazole, then discontinue. | + + Encounters +--------+ + + + + | Date | Type | Specialty | Care Team | Description | +--------+ + + + + | 08/12/ | Hospital | | Gian, | AML (acute myeloid | | 2018 | Encounter | | Manuel French MD | leukemia) in relapse | | | | | | (HCC) (Primary Dx) | +--------+ + + + + | 08/12/ | Hospital | | Gian, | AML (acute myeloid | | 2017 | Encounter | | Manuel French MD | leukemia) in relapse | | | | | | (HCC) (Primary Dx) | +--------+ + + + + | 06/28/ | Telephone | | Gian, | | | 2017 | | | Manuel French MD | | +--------+ + + + + | 06/28/ | Orders Only | | Tammy Donald, | | | 2017 | | | RN | | +--------+ + + + + | 06/27/ | Telephone | | Gian | Other | | 2017 | | | Manuel French MD | | +--------+ + + + + | 06/26/ | Hospital | | Gian, | AML (acute myeloid | | 2018 - | Encounter | | Manuel French MD | leukemia) in relapse | | | | | Kar Delgado | (HCC) | | 06/28/ | | | Horacio Malik MD | | | 2018 | | | | | +--------+ + + + + +---+ + | | Discharge | | | Summaries | | | - | | | Gian | | | , Manuel French | | | - | | | 06/28/2017 | | | 1541 PST | | | Formatting | | | of this | | | note may be | | | different | | | from the | | | original.He | | | matology/On | | | cology | | | Transfer | | | NoteProvide | | | [facility] [place] | | [place] | | | Name/Age/DO | | | B: Rhea | | | Meme Peak | | | 51 y.o. | | | 1965 | | | Med. | | | Record | | | Number: | | | [id number] | | | Date of | | | admission: | | | 06/26/2017 | | | Date of | | | Transer: | | | 06/28/17Acc | | | epting | | | Facility: | | | [facility], Unit | | | 14K, bed | | | 11Accepting | | | provider; | | | Dr. Lorenzana | | | Sandy. | | | e patient's | | | primary | | | care | | | provider is | | | Saurav R. | | | Filiberto, | | | GOLD MARKER.Identify | | | ing | | | Statement: | | | Rhea Staleyn | | | Peak is a | | | 51 y.o. | | | female from | | | [address] | | | [address] | | | [address] | | | [place] [address] | | | with Second | | | Relapse of | | | Acute | | | Myelogenous | | | | | | Leukemia.Th | | | e patient | | | chart and | | | medications | | | were | | | reviewed in | | | detail and | | | the | | | patient was | | | seen and | | | examined. | | | History of | | | Present | | | Illnesses, | | | their | | | Current | | | Assessments | | | and Plans: | | | Problem | | | List * | | | (Principal) | | | AML (acute | | | myeloid | | | leukemia) | | | in relapse | | | Overview | | | ACTIVE | | | DIAGNOSIS: | | | Acute | | | Myelogenous | | | Leukemia, | | | diploid, | | | FLT-3 | | | tyrosine | | | kinase | | | domain | | | mutation | | | positive, | | | NPM1 | | | mutation | | | positive, | | | in first | | | complete | | | remission.1 | | | . | | | Presentatio | | | n to the | | | [facility] | | emergency | | | room in | | | [place] | | | [place] on | | | February 13, | | | 2015 with | | | complaints | | | of cough | | | and | | | odynophagia | | | . Complete | | | blood | | | count was | | | notable for | | | a white | | | count of | | | 117,000, | | | hemoglobin | | | 10.7 g/dL, | | | platelet | | | count of | | | 51,000. | | | She was | | | emergently | | | transferred | | | to the | | | [place] [facility] | | | were bone | | | marrow | | | biopsy and | | | aspiration | | | at [facility] on | | | February 14, | | | 2016 | | | confirmed | | | acute | | | myelogenous | | | leukemia, | | | diploid, | | | positive | | | for FLT-3 | | | tyrosine | | | kinase | | | domain | | | mutation | | | (also | | | positive | | | for NPM1, | | | DNMT3A, | | | NRAS, NPM1 | | | and TET2 | | | mutations). | | | 2. | | | Induction | | | chemotherap | | | y with | | | conventiona | | | l 7+3 | | | cytarabine/ | | | idarubicin | | | February 15, | | | 2016 with | | | continuous | | | daily | | | dasatinib | | | (Sprycel) | | | complicated | | | by fungal | | | pneumonia, | | | neutropenic | | | fever, | | | hidradeniti | | | s | | | suppurativa | | | , and | | | Clostridium | | | Difficile | | | colitis. | | | Repeat bone | | | marrow | | | biopsy on | | | February | | | 2015 | | | (day 28); | | | First | | | complete | | | remission.3 | | | . Cycle#1 | | | MiDaC (1500 | | | mg/m | | | Cytarabine) | | | | | | consolidati | | | on at [facility] | | | on February | | | , | | | 2015.4. | | | Cycle#2 | | | MiDaC (1500 | | | mg/m | | | Cytarabine) | | | | | | consolidati | | | on at [facility] | | | on April | | | 3, 2016.5. | | | Cycle#3 | | | MiDaC (1200 | | | mg/m | | | Cytarabine) | | | | | | consolidati | | | on at [facility] | | | on April | | | 30, | | | 2016.6. | | | Cycle#4 | | | MiDaC (1000 | | | mg/m | | | Cytarabine | | | ) | | | consolidati | | | on at [facility] | | | on | | | May | | | 2016.7. | | | Bone | | | Marrow | | | Biopsy and | | | Aspiration | | | July 23, | | | 2017 at the | | | [facility] [place] | | | specimen # | | | [id number] | | | | | | demonstrate | | | d ongoing | | | complete | | | remission. | | | Molecular | | | analysis | | | was | | | negative | | | for any | | | residual | | | NPM1 | | | mutation | | | positive | | | cells and | | | negative | | | for any | | | FLT-3 | | | mutation | | | positive | | | cells | | | (sensitivit | | | y is 1 in | | | 20,000).8. | | | CBC on | | | December 25, | | | 2016; WBC | | | 5,000, Hgb | | | 14.6 gm/dl, | | | Hct 42.7, | | | Platelet | | | 138,000.9. | | | MRI of | | | right hip | | | on | | | December | | | 2016 in | | | | | | anticipatio | | | n of right | | | hip | | | replacement | | | ; numerous | | | subcentimet | | | er round | | | marrow | | | repacing | | | lesions | | | within the | | | visualized | | | lower | | | lumbar | | | spine, | | | pelvis, and | | | femurs.10. | | | CT | | | Chest/Abdom | | | en/Pelvis | | | on January | | | 2016; 3 | | | cm left | | | thyroid | | | mass, no | | | other | | | suggestion | | | of primary | | | neoplasm.11 | | | . Bone scan | | | January | | | 2016; | | | Normal.12. | | | PET/CT scan | | | on | | | February 27, | | | 2016; | | | diffuse | | | uptake | | | about the | | | spleen and | | | bone | | | marrow.13. | | | CBC on | | | March 01, | | | 2017; WBC | | | 103,5000 | | | (92% | | | blasts) Hgb | | | 13.8, Hct | | | 41.8%, | | | Platelet | | | count | | | 10,000. | | | [id number] | | | U/L, BUN 14 | | | mg/dL, Scr | | | 0.82 | | | mg/dL.14. | | | Admit | | | [facility] | | | [place] | | | 03/01/2017; | | | Chest | | | X-ray | | | consistent | | | with | | | pulmonary | | | leukostasis | | | . | | | Hydroxyurea | | | 2 grams po | | | q 4 hours | | | x 3 doses | | | with no | | | change in | | | WBC.15. | | | Transfer to | | | [facility]; | | | bone marrow | | | biopsy and | | | aspiration | | | were | | | performed | | | on January | | | 2015, | | | and | | | confirmed | | | acute | | | myelogenous | | | leukemia, | | | diploid, | | | positive | | | for FLT-3 | | | tyrosine | | | kinase | | | domain | | | mutation, | | | positive | | | for NPM1 | | | mutation, | | | positive | | | for DNMT3A | | | mutation, | | | positive | | | for NRAS | | | mutation, | | | positive | | | for TET | | | mutation.16 | | | . Induction | | | | | | chemotherap | | | y with | | | conventiona | | | l 7+3 | | | cytarabine/ | | | idarubicin | | | chemotherap | | | y, January | | | 2015, | | | with | | | continuous | | | daily | | | dasatinib | | | (Sprycel) | | | complicated | | | by fungal | | | pneumonia, | | | neutropenic | | | fever, | | | hidradeniti | | | s | | | suppurativa | | | , and | | | Clostridium | | | difficile | | | colitis.17. | | | Bone | | | marrow | | | biopsy | | | performed | | | on day 28, | | | February 11, | | | 2015, | | | demonstrate | | | d a first | | | complete | | | remission.1 | | | 8. Cycle #1 | | | of | | | high-dose | | | cytarabine | | | consolidati | | | on at the | | | [place] [facility] | | | on February | | | , | | | 2015.19. | | | Cycle #2 of | | | cytarabine | | | | | | consolidati | | | on at the | | | [place] [facility] | | | on April | | | 2016.20. | | | Cycle #3 | | | of | | | cytarabine | | | consolidati | | | on at the | | | [facility] | [facility] [place] | | [place] | | | [place], | | | April | | | , | | | 2016.21. | | | Cycle #4 of | | | cytarabine | | | | | | consolidati | | | on | | | chemotherap | | | y at the | | | [facility] [place] | [place] | | | [place], | | | May | | | , | | | 2017.22. | | | Repeat bone | | | marrow | | | biopsy and | | | aspiration | | | on June | | | 2016, | | | at the | | | [facility] in | | | [place] | | | [place], | | | specimen | | | #[id number] | | | 1 | | | demonstrati | | | ng ongoing | | | complete | | | remission. | | | Molecular | | | analysis | | | was | | | negative | | | for any | | | residual | | | NPM1 | | | mutation | | | positive | | | cells and | | | negative | | | for any | | | FLT-3 | | | mutation | | | positive | | | cells | | | (sensitivit | | | y is 1 in | | | 20,000).23. | | | Complete | | | blood count | | | on November | | | 2016, | | | hemoglobin | | | 14.6, | | | hematocrit | | | 42.7%, | | | platelet | | | count | | | 138,000, | | | white count | | | 5000.24. | | | Repeat | | | complete | | | blood count | | | on | | | March 01, | | | 2016, | | | white count | | | 103,500 | | | with 92% | | | blasts. | | | Hemoglobin | | | 13.8 g/dL, | | | hematocrit | | | 41.8%, | | | platelet | | | count | | | 10,000. | | | BUN was 14, | | | creatinine | | | 0.82, | | | estimated | | | GFR 73. | | | LDH was | | | 4427 | | | units/L | | | (upper | | | limits of | | | normal 215 | | | units/L). | | | Repeat | | | [facility] | | | analysis; | | | NPM1 mut | | | positive, | | | DNMT3A mut | | | positive, | | | NRAS mut | | | positive, | | | FLT3 TKD | | | mut | | | positive | | | (both [id number] | | | and | | | [id number]), | | | TET2 mut | | | positive.25 | | | . Status | | | post | | | FLAG-SAL + | | | midostaurin | | | | | | reinduction | | | November | | | 2016, | | | with second | | | complete | | | remission.2 | | | 6. One | | | Cycle of | | | maintenance | | | | | | azacytidine | | | (Vidaza) | | | on April | | | 2017 | | | with | | | midostaurin | | | , | | | complicated | | | by | | | prolonged | | | pancytopeni | | | a.27. | | | Repeat bone | | | marrow | | | biopsy only | | | (dry tap) | | | May | | | 2017 | | | ([facility] | | | Oncology | | | [id number] | | | 7); | | | Hypercellul | | | [...] | | CD3 and | | | PAX-5. 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 | | | Communicati | | | ons were | | | made | | | slightly | | | more | | | complicated | | | by the | | | fact that | | | Rhea | | | reported | | | finding her | | | | | | certificate | | | 10 days | | | ago and | | | discovered | | | that her | | | birthday is | | | actually | | | 61. | | | This was | | | corrected | | | in the | | | [facility] | | | electronic | | | record, | | | however | | | Rhea is | | | still | | | listed as | | | | | | 61 in | | | the [facility] | | | electronic | | | record. I | | | notified | | | both Toshia | | | Salinas, RN | | | at [facility] and | | | the [facility] | | | transfer | | | center of | | | this issue. | | | Dr. Lorenzana | | | Sandy | | | has | | | accepted | | | Rhea Meme | | | Peak as | | | the | | | attending | | | physician | | | for | | | hospital to | | | hospital | | | transfer to | | | [facility] when | | | a bed is | | | available | | | on either | | | the 14th or | | | 13th | | | floor. | | | Rhea's | | | status:Ana | | | f complaint | | | today is | | | dyspnea, | | | cough and | | | pleuritic | | | left sided | | | chest pain. | | | Clinical | | | exam is | | | notable for | | | the fact | | | that she is | | | now | | | requiring | | | supplementa | | | l | | | oxygen.Labo | | | ratory exam | | | is notable | | | for WBC | | | 24,200-cell | | | s flagged | | | as | | | monocytes | | | are likely | | | blasts.CT | | | chest shows | | | left | | | basilar | | | atelectasis | | | . No | | | infiltrates | | | are seen | | | to suggest | | | pulmonary | | | leukostasis | | | .Assessment | | | : Relapsed | | | acute | | | myelogenous | | | | | | leukemia.Pl | | | an; | | | Transfer to | | | [facility], Unit | | | 14K, Bed | | | 11. Dr. | | | Salomón | | | Sandy | | | attending. | | | Review | | | of Systems: | | | | | | Constitutio | | | nal: denies | | | high fever | | | or shaking | | | chills; | | | positive | | | for | | | fatigue, | | | denies | | | anorexia, | | | nausea, | | | vomiting, | | | or weight | | | lossEars, | | | Nose, | | | Mouth, | | | throat: | | | Denies | | | odynophagia | | | , | | | dysphagia, | | | or tinnitus | | | | | | Respiratory | | | : positive | | | for cough, | | | positive | | | for left | | | sided | | | pleuritic | | | chest | | | pain.Cardio | | | vascular: | | | positive | | | for dyspnea | | | on | | | exertion, | | | negative | | | for | | | orthopnea, | | | negative | | | for | | | palpitation | | | s, positive | | | for | | | shortness | | | of | | | breathGI: | | | positive | | | for | | | constipatio | | | n.: no | | | dysuria, | | | trouble | | | voiding, or | | | | | | hematuriaMu | | | sculoskelet | | | al: | | | positive | | | for diffuse | | | bone | | | pain.Neurol | | | ogic: | | | negative | | | for - | | | headaches, | | | numbness/ti | | | ngling or | | | visual | | | changesEndo | | | crine: | | | negative | | | for - | | | edemaHemato | | | logic: | | | Denies | | | bruising or | | | | | | bleeding. | | | Review of | | | systems as | | | above | | | otherwise | | | negativeSch | | | eduled | | | Medications | | | : Current | | | Facility-Ad | | | ministered | | | Medications | | | Medication | | | Dose Route | | | Frequency | | | Provider | | | Last Rate | | | Last Dose | | | | | | | | | acetaminoph | | | en | | | (TYLENOL) | | | tablet | | | 487.5 mg | | | 487.5 mg | | | Oral Q6H | | | PRN Manuel | | | C | | | Gian | | | , MD | | | 487.5 mg at | | | 06/27/17 | | | 1236 | | | acyclovir | | | (ZOVIRAX) | | | tablet 800 | | | mg 800 mg | | | Oral Daily | | | Manuel C | | | Gian | | | , MD 800 | | | mg at | | | 06/28/17 | | | 0846 | | | albuterol | | | 2.5 mg/3 | | | mL | | | nebulizer | | | solution | | | 2.5 mg 2.5 | | | mg | | | Nebulizatio | | | n RT Q4H | | | PRN Manuel | | | C | | | Gian | | | , MD | | | calcium | | | carbonate | | | (TUMS) | | | chewable | | | tablet 500 | | | mg 500 mg | | | Oral PRN | | | Manuel C | | | Gian | | | , MD | | | | | | cefTAZidime | | | (FORTAZ, | | | TAZICEF) 2 | | | g in sodium | | | chloride | | | 0.9% 50 mL | | | IVPB 2 g | | | Intravenous | | | 3 times | | | per day | | | Manuel C | | | Gian | | | , MD 140 | | | mL/hr at | | | 06/28/17 | | | 1423 2 g at | | | 06/28/17 | | | 1423 | | | docusate | | | sodium | | | (COLACE) | | | capsule 100 | | | mg 100 mg | | | Oral BID | | | PRN Manuel | | | C | | | Gian | | | , MD 100 | | | mg at | | | 06/28/17 | | | 0848 | | | | | | dronabinol | | | (MARINOL) | | | capsule 10 | | | mg 10 mg | | | Oral Daily | | | Manuel C | | | Gian | | | , MD 10 | | | mg at | | | 06/28/17 | | | 0845 | | | | | | DULoxetine | | | (CYMBALTA) | | | DR capsule | | | 90 mg 90 | | | mg Oral | | | Daily | | | Manuel C | | | Gian | | | , MD 90 | | | mg at | | | 06/28/17 | | | 0846 | | | | | | hydrocortis | | | one 1% | | | cream | | | Topical TID | | | PRN Manuel | | | C | | | Gian | | | , MD | | | | | | HYDROmorpho | | | ne | | | (DILAUDID) | | | injection | | | 0.25-1 mg | | | 0.25-1 mg | | | Intravenous | | | Q2H PRN | | | Manuel C | | | Gian | | | , MD 0.5 | | | mg at | | | 06/27/17 | | | 0139 | | | | | | hydroxyurea | | | (HYDREA) | | | capsule | | | 2,000 mg | | | 2,000 mg | | | Oral 2 | | | times per | | | day Manuel | | | C | | | Gian | | | , MD | | | 2,000 mg at | | | 06/28/17 | | | 0848 | | | | | | ipratropium | | | (ATROVENT) | | | 500 | | | mcg/2.5 mL | | | nebulizer | | | solution | | | 500 mcg | | | 500 mcg | | | Nebulizatio | | | n RT Q6H | | | Manuel C | | | Gian | | | , MD 500 | | | mcg at | | | 06/28/17 | | | 1435 | | | | | | levothyroxi | | | ne | | | (SYNTHROID) | | | tablet 50 | | | mcg 50 mcg | | | Oral QAM | | | AC Manuel C | | | | | | Gian | | | , MD 50 | | | mcg at | | | 06/28/17 | | | 0630 | | | LORazepam | | | (ATIVAN) | | | tablet 0.5 | | | mg 0.5 mg | | | Oral Q8H | | | PRN Manuel | | | C | | | Gian | | | , MD | | | magnesium | | | hydroxide | | | (MILK OF | | | MAGNESIA) | | | 400 mg/5 mL | | | suspension | | | 30 mL 30 | | | mL Oral | | | Nightly PRN | | | Manuel C | | | Gian | | | , MD 30 | | | mL at | | | 06/27/17 | | | 2135 | | | | | | micafungin | | | (MYCAMINE) | | | 100 mg in | | | sodium | | | chloride | | | 0.9% 100 mL | | | IVPB 100 | | | mg | | | Intravenous | | | Q24H | | | Manuel C | | | Gian | | | , 110 | | | mL/hr at | | | 06/28/17 | | | 1316 100 mg | | | at | | | 06/28/17 | | | 1316 | | | | | | ondansetron | | | (ZOFRAN | | | ODT) | | | disintegrat | | | ing tablet | | | 4 mg 4 mg | | | Oral Q12H | | | PRN Manuel | | | C | | | Gian | | | , 4 mg | | | at | | | 06/27/17 | | | 0136 | | | | | | oxybutynin | | | (DITROPAN | | | XL) ER | | | tablet 10 | | | mg 10 mg | | | Oral Daily | | | Manuel C | | | Gian | | | , 10 | | | mg at | | | 06/28/17 | | | 0846 | | | oxyCODONE | | | | | | (ROXICODONE | | | ) tablet | | | 5-15 mg | | | 5-15 mg | | | Oral Q3H | | | PRN Manuel | | | C | | | Gian | | | , MD 10 | | | mg at | | | 06/28/17 | | | 1431 | | | | | | polyethylen | | | e glycol | | | (MIRALAX) | | | powder 17 g | | | 17 g Oral | | | Daily PRN | | | Manuel C | | | Gian | | | , MD 17 g | | | at | | | 06/28/17 | | | 0843 | | | senna | | | (SENOKOT) | | | tablet 8.6 | | | mg 8.6 mg | | | Oral BID | | | PRN Manuel | | | C | | | Gian | | | , MD 8.6 | | | mg at | | | 06/28/17 | | | 0848 | | | sodium | | | chloride | | | 0.9% (NS) | | | infusion | | | Intravenous | | | Continuous | | | Manuel C | | | Gian | | | , 50 | | | mL/hr at | | | 06/28/17 | | | 1016 | | | | | | tiZANidine | | | (ZANAFLEX) | | | tablet 4 mg | | | 4 mg Oral | | | Q6H PRN | | | Manuel C | | | Gian | | | , MD | | | traZODone | | | (DESYREL) | | | tablet 100 | | | mg 100 mg | | | Oral | | | Nightly | | | Manuel C | | | Gian | | | , MD 100 | | | mg at | | | 06/27/17 | | | 2134 | | | Allergies: | | | Allergy: | | | Allergies | | | Allergen | | | Reactions | | | | | | Morphine | | | Swelling | | | and Rash | | | Other | | | reaction(s) | | | : No | | | Reaction | | | IndicatedRa | | | sh and | | | facial | | | swellingRas | | | h and | | | facial | | | swelling | | | Cefepime | | | Rash Past | | | Medical and | | | Surgical | | | History, | | | Social | | | History and | | | Problems: | | | Past | | | Medical | | | History: | | | Diagnosis | | | Date | | | Anxiety | | | | | | | | | Bronchitis | | | | | | Cancer | | | (HCC) | | | Chronic | | | constipatio | | | n | | | COPD | | | (chronic | | | obstructive | | | pulmonary | | | disease) | | | (HCC) | | | | | | Depression | | | | | | | | | Hyperinflat | | | ion of | | | lungs | | | | | | Hypothyroid | | | ism | | | Insomnia | | | | | | Leukemia | | | in | | | remission | | | (HCC) | | | | | | 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 | | | [facility]; | | | [place] | | | Or | | | | | | CHOLECYSTEC | | | SEAMUS | | | 06/2013 | | | St. | | | [facility]; | | | [place] | | | Or. | | | JOINT | | | REPLACEMENT | | | 01/2014 | | | Knee | | | replacement | | | | | | KNEE | | | ARTHROPLAST | | | Y Right | | | 01/2014 | | | St. | | | [facility]; | | | [facility] | | | Or. | | | PARTIAL | | | HYSTERECTOM | | | Y 1990 | | | [facility] | | | [facility]; | | | [facility] | | | Or. 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 | | | Social | | | History | | | Main Topics | | | | | | Smoking | | | status: | | | Former | | | Smoker | | | Packs/day: | | | 1.50 | | | Years: | | | 35.00 | | | Start date: | | | 04/29/1980 | | | Quit date: | | | 01/28/2016 | | | | | | Smokeless | | | tobacco: | | | Never Used | | | | | | Alcohol | | | use Yes | | | Comment: | | | Social | | | Drug use: | | | No | | | Sexual | | | activity: | | | Yes | | | Partners: | | | Male Other | | | Topics | | | Concern | | | Not on | | | file Social | | | History | | | Narrative | | | | | | No | | | narrative | | | on file | | | Patient | | | Active | | | Problem | | | List | | | Diagnosis | | | | | | AML | | | (acute | | | myeloid | | | leukemia) | | | in relapse | | | | | | Chronic | | | constipatio | | | n | | | | | | Depression | | | | | | Thyroid | | | nodule | | | Family | | | History | | | Problem | | | Relation | | | Age of | | | Onset | | | Cancer | | | Mother | | | colon, | | | brain | | | Arthritis | | | Mother | | | Gout | | | Mother | | | Heart | | | disease | | | Mother | | | | | | Hypertensio | | | n Mother | | | | | | Alcohol | | | abuse | | | Father | | | High | | | blood | | | pressure | | | Father | | | Gout | | | Father | | | Heart | | | disease | | | Father | | | High | | | blood | | | pressure | | | Paternal | | | Grandmother | | | | | | Diabetes | | | Paternal | | | Grandmother | | | | | | Gout | | | Paternal | | | Grandmother | | | | | | No Known | | | Problems | | | Maternal | | | Grandmother | | | | | | No Known | | | Problems | | | Maternal | | | Grandfather | | | | | | No Known | | | Problems | | | Paternal | | | Grandfather | | | | | | Objectives: | | | Temp: 37.1 | | | C (98.8 | | | F) BP: | | | 118/67 | | | Pulse: 99 | | | Resp: 17 | | | SpO2: 92 % | | | on | | | Min/Max | | | Temp past | | | 24 | | | hours:Temp | | | Av.9 | | | C (98.4 | | | F) Min: | | | 36.3 C | | | (97.3 F) | | | Max: 37.4 | | | C (99.3 | | | F)Intake/ | | | Output | | | Summary | | | (Last 24 | | | hours) at | | | 06/28/17 | | | 1541Last | | | data filed | | | at 06/28/17 | | | 1400 Gross | | | per 24 | | | hour Intake | | | | | | 2035 ml | | | Output | | | | | | 2200 ml Net | | | | | | -165 ml | | | Wt. | | | Admission: | | | Weight: | | | 86.2 kg | | | (190 lb 0.6 | | | oz) | | | Wt. | | | Current: | | | Weight: | | | 88.2 kg | | | (194 lb 7.1 | | | oz) Wt | | | Readings | | | from Last 3 | | | | | | Encounters: | | | 06/27/17 | | | 88.2 kg | | | (194 lb 7.1 | | | oz) | | | 03/02/17 | | | 91.4 kg | | | (201 lb 8 | | | oz) | | | 12/12/16 | | | 88.5 kg | | | (195 lb) | | | Physical | | | Exam: | | | General: | | | The patient | | | is alert | | | and | | | oriented. | | | No acute | | | distress. | | | Eyes: There | | | is a left | | | sub-conjunc | | | tival | | | hemorrhage, | | | improved. | | | Sclera are | | | otherwise | | | anicteric.E | | | NMT: | | | Oropharynx | | | fee of | | | lesions, | | | mucous | | | membranes | | | moist. | | | There are | | | no mucosal | | | petechiae. | | | There is | | | generalized | | | erythema | | | of the | | | face.Cardio | | | vascular: | | | Rapid rate | | | and regular | | | rhythm, no | | | rubs, | | | gallops, or | | | | | | murmurs.Derrell | | | gs: Left | | | basilar | | | rales.Chest | | | : Patient | | | does not | | | have a | | | port-a-cath | | | .Abdomen: | | | Soft, | | | nontender, | | | no | | | hepatospeno | | | megaly. No | | | palpable | | | masses. | | | Bowel | | | sounds | | | present. | | | Extremities | | | : | | | Nontender, | | | no | | | erythema, | | | no edema. | | | Her right | | | upper | | | extremity | | | double | | | lumen PICC | | | line is | | | clean, dry | | | and | | | intact.Skin | | | : | | | Ecchymoses | | | on the | | | inner right | | | thigh, | | | stable. | | | Bilateral | | | lower | | | extremity | | | petechiae, | | | stable.Lymp | | | h: No | | | palpable | | | nodes in | | | the neck, | | | supraclavic | | | ular fossa, | | | axilla or | | | groin.Neuro | | | logical: | | | Cranial | | | nerves are | | | intact. | | | Voice is | | | articulate. | | | Muscular/Sk | | | eletal: No | | | acute bony | | | tenderness. | | | No | | | evidence of | | | | | | sarcopenia. | | | Psychiatric | | | : Normal | | | mood and | | | affect. | | | ECOG | | | | | | Performance | | | Status [] | | | 0 [] 1 | | | [x] 2 | | | []3 [] 4 | | | ECOG | | | PERFORMANCE | | | | | | STATUS*Grad | | | e ECOG | | | Karnofsky | | | 0 Fully | | | active, | | | able to | | | carry on | | | all | | | pre-disease | | | | | | performance | | | without | | | restriction | | | . 90 | | | - 100 | | | 1 | | | Restricted | | | in | | | physically | | | strenuous | | | activity | | | but | | | ambulatory | | | and able to | | | carry out | | | work of a | | | light or | | | sedentary | | | nature, | | | e.g., light | | | house | | | work, | | | office work | | | 70 | | | - 80 | | | 2 | | | Ambulatory | | | and capable | | | of all | | | selfcare | | | but unable | | | to carry | | | out any | | | work | | | activities. | | | Up and | | | about more | | | than 50% of | | | waking | | | hours | | | 50 - 60 | | | | | | 3 Capable | | | of only | | | limited | | | selfcare, | | | confined to | | | bed or | | | chair more | | | than 50% of | | | waking | | | hours | | | 30 - 40 | | | | | | 4 | | | Completely | | | disabled. | | | Cannot | | | carry on | | | any | | | selfcare. | | | Totally | | | confined to | | | bed or | | | chair | | | 10 - 20 * | | | As | | | published | | | in Am. J. | | | Clin. | | | Oncol.:Oken | | | , M.M., | | | Devorah, | | | R.H., | | | Tormey, | | | D.C., | | | Tom Zurita, | | | Manohar, | | | T.E., | | | Horton, | | | E.T., | | | Chica, | | | P.P.: | | | Toxicity | | | And | | | Response | | | Criteria Of | | | The | | | [facility] | | | [facility]operative | | | Oncology | | | Group. Am J | | | Clin Oncol | | | [phone], | | | 1981. The | | | ECOG | | | Performance | | | Status is | | | in the | | | public | | | domain | | | therefore | | | available | | | for public | | | use. To | | | duplicate | | | the scale, | | | please cite | | | the | | | reference | | | above and | | | credit the | | | [facility] | | | Cooperative | | | Oncology | | | Group, | | | Manuel | | | Comis M.D., | | | Group | | | ChairDiagno | | | stic | | | studies: | | | Available | | | data and | | | images were | | | reviewed | | | personally. | | | See | | | reports. | | | Significant | | | results | | | and | | | findings | | | are | | | addressed | | | here or in | | | the | | | Assessment | | | and Plan. | | | Results for | | | PEAK, | | | RHEA STALEYN | | | (MRN | | | [id number] | | | ) as of | | | 06/28/2017 | | | 15:41 Ref. | | | Range | | | 06/28/2017 | | | 03:31 WBC | | | Latest Ref | | | Range: 4.0 | | | - 11.0 K/uL | | | 24.2 (H) | | | WBC | | | morphology | | | Unknown | | | Normal RBC | | | COUNT | | | Latest Ref | | | Range: 3.70 | | | - 5.20 | | | M/uL 2.68 | | | (L) Hgb | | | Latest Ref | | | Range: 11.5 | | | - 16.0 | | | g/dL 7.8 | | | (L) Hct, | | | Final | | | Latest Ref | | | Range: 34.0 | | | - 47.0 % | | | 24.3 (L) | | | MCV Latest | | | Ref Range: | | | 83.0 - | | | 101.0 fL | | | 90.5 MCH | | | Latest Ref | | | Range: 28.0 | | | - 35.0 pg | | | 29.1 MCHC | | | Latest Ref | | | Range: 32.0 | | | - 36.0 | | | g/dL 32.2 | | | RDW-CV | | | Latest Ref | | | Range: | | | <15.0 % | | | 19.3 (H) | | | Platelet | | | Count | | | Latest Ref | | | Range: 140 | | | - 440 K/uL | | | 13 (LL) PLT | | | MORPHOLOGY | | | Unknown | | | Normal MPV | | | Latest | | | Units: fL | | | 10.0 | | | Absolute | | | Neutrophils | | | Latest Ref | | | Range: | | | 1.80 - 8.50 | | | K/uL 1.00 | | | (L) | | | Absolute | | | Lymphocytes | | | Latest Ref | | | Range: | | | 0.60 - 3.20 | | | K/uL 1.00 | | | Absolute | | | Monocytes | | | Latest Ref | | | Range: 0.00 | | | - 1.00 | | | K/uL 22.20 | | | (H) | | | Absolute | | | Eosinophils | | | Latest Ref | | | Range: | | | 0.00 - 0.40 | | | K/uL 0.00 | | | Absolute | | | Basophils | | | Latest Ref | | | Range: 0.00 | | | - 0.10 | | | K/uL 0.00 % | | | | | | Neutrophils | | | Latest Ref | | | Range: | | | 45.0 - 82.0 | | | % 4.3 (L) | | | % | | | Lymphocytes | | | Latest Ref | | | Range: | | | 20.0 - 45.0 | | | % 4.0 (L) | | | % Monocytes | | | Latest Ref | | | Range: 4.0 | | | - 12.0 % | | | 91.5 (H) % | | | Eosinophils | | | Latest Ref | | | Range: 0.0 | | | - 5.0 % | | | 0.0 % | | | Basophils | | | Latest Ref | | | Range: 0.0 | | | - 1.0 % 0.2 | | | RBC | | | morphology | | | Unknown | | | Normal NA | | | Latest Ref | | | Range: 136 | | | - 149 | | | mmol/L 134 | | | (L) K | | | Latest Ref | | | Range: 3.5 | | | - 5.1 | | | mmol/L 3.6 | | | Chloride | | | Latest Ref | | | Range: 98 - | | | 109 mmol/L | | | 99 Carbon | | | dioxide | | | Latest Ref | | | Range: 24 - | | | 31 mmol/L | | | 30 ANION | | | GAP Latest | | | Ref Range: | | | 3 - 16 | | | mmol/L 5 | | | GLUCOSE | | | Latest Ref | | | Range: 70 - | | | 109 mg/dL | | | 120 (H) BUN | | | Latest Ref | | | Range: 7 - | | | 18 mg/dL 3 | | | (L) | | | Creatinine | | | Latest Ref | | | Range: 0.60 | | | - 1.30 | | | mg/dL 0.66 | | | BUN/CREA | | | Unknown 4.5 | | | EGFR IF | | | NOT | | | [employer] [employer] | | | Latest Ref | | | Range: >=60 | | | | | | mL/min/1.73 | | | m2 >60 | | | Calcium | | | Latest Ref | | | Range: 8.3 | | | - 10.5 | | | mg/dL 8.2 | | | (L) | | | PHOSPHORUS | | | Latest Ref | | | Range: 2.5 | | | - 4.6 mg/dL | | | 3.5 URIC | | | ACID Latest | | | Ref Range: | | | 2.6 - 7.2 | | | mg/dL 5.3 | | | UNENHANCED | | | CHEST CT | | | 06/28/2017 | | | 11:53 | | | AM CLINICA | | | L HISTORY: | | | AML, oxygen | | | | | | dependence, | | | eval for | | | pulmonary | | | leukostasis | | | orfungal | | | pneumonia | | | | | | COMPARI | | | SON: CT | | | May | | | 2017 and | | | more remote | | | | | | exams TECH | | | NIQUE: | | | Axial | | | unenhanced | | | images are | | | performed | | | through the | | | chest, | | | along | | | withmultipl | | | radha | | | reformation | | | s. FINDING | | | S: A 2.9 | | | cm rounded | | | hypoattenua | | | ting lesion | | | is again | | | visible in | | | the | | | leftthyroid | | | lobe and | | | is similar | | | to | | | previous. | | | A right | | | upper | | | extremity | | | PICCtermina | | | lisa near | | | the | | | cavoatrial | | | junction. | | | Trace | | | pericardial | | | fluid is | | | againvisibl | | | e. The | | | mediastinum | | | otherwise | | | has an | | | unremarkabl | | | e | | | unenhanced | | | appearance. | | | No | | | pathologic | | | lymph node | | | enlargement | | | is | | | evident.A | | | very small | | | partially | | | loculated | | | appearing | | | left | | | basilar | | | pleural | | | effusion | | | ispresent. | | | There is | | | atelectasis | | | /consolidat | | | ion within | | | the lingula | | | and mid | | | tobasilar | | | left lower | | | lobe. | | | Minimal | | | dependent | | | density and | | | bandlike | | | opacity in | | | theright | | | lower lobe | | | and also | | | involving | | | the right | | | middle lobe | | | favors | | | atelectasis | | | . The upper | | | lungs are | | | clear. No | | | nodule or | | | airway | | | abnormality | | | is | | | evident. | | | Thereis | | | no | | | pneumothora | | | x.A rounded | | | calcific | | | density | | | persists | | | along the | | | posterior | | | aspect of | | | the | | | rightglenoh | | | umeral | | | joint, | | | potentially | | | reflecting | | | a loose | | | body. 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 The | | | imaged | | | spleen is | | | now | | | enlarged, | | | measuring | | | at least | | | 13cm long | | | axis. | | | Imaged | | | upper | | | abdomen is | | | otherwise | | | unremarkabl | | | e. IMPRESS | | | ION - 1. | | | VERY | | | SMALL BUT | | | PARTIALLY | | | LOCULATED | | | APPEARING | | | LEFT | | | PLEURAL | | | EFFUSION | | | WITHATELECT | | | ASIS/CONSOL | | | IDATION | | | INVOLVING | | | THE LINGULA | | | AND LEFT | | | LOWER | | | LOBE.2. | | | SPLENOMEG | | | OSCAR.3. | | | CHRONIC | | | LEFT | | | THYROID | | | LESION.Dict | | | ated and | | | Signed by: | | | Jacob | | | Shaheen, MD | | | | | | Electroni | | | vaishali | | | signed: | | | 06/28/2017 | | | 12:59 | | | PMResults | | | for PEAK, | | | RHEA MEME | | | (MRN | | | [id number] | | | ) as of | | | 06/28/2017 | | | 15:41 Ref. | | | Range | | | 06/26/2017 | | | 17:46 | | | Color, UA | | | Latest Ref | | | Range: | | | Light | | | Yellow, | | | Yellow, | | | Straw | | | Yellow | | | Clarity, UA | | | Latest Ref | | | Range: | | | Clear Hazy | | | (A) | | | Specific | | | [place] | | | Latest Ref | | | Range: | | | 1.001 - | | | 1.030 | | | 1.017 PH UA | | | Latest Ref | | | Range: 5.0 | | | - 8.0 7.0 | | | Glucose, | | | UA Latest | | | Ref Range: | | | Negative | | | Negative | | | Ketones, UA | | | Latest Ref | | | Range: | | | Negative | | | Negative | | | Protein, UA | | | Latest Ref | | | Range: | | | Negative | | | Negative | | | Blood, UA | | | Latest Ref | | | Range: | | | Negative | | | Negative | | | Bilirubin, | | | UA Latest | | | Ref Range: | | | Negative | | | Negative | | | Nitrite, UA | | | Latest Ref | | | Range: | | | Negative | | | Negative | | | UROBILINOGE | | | N UA Latest | | | Ref Range: | | | 0.2 mg/dL, | | | 1.0 mg/dL, | | | Negative | | | Negative | | | Leukocyte | | | esterase, | | | UA Latest | | | Ref Range: | | | Negative | | | Negative | | | WBC UA | | | Latest Ref | | | Range: 0 - | | | 2 /HPF 0-2 | | | RBC UA | | | Latest Ref | | | Range: 0 - | | | 2 /HPF 0-2 | | | Squamous | | | epithelial, | | | UA Latest | | | Ref Range: | | | 0 - 2 /LPF | | | 5-10 (A) | | | BACTERIA UA | | | Latest Ref | | | Range: | | | Negative | | | /HPF | | | Negative | | | Mucus, UA | | | Latest Ref | | | Range: | | | Negative | | | /LPF | | | Present (A) | | | URINE | | | COMMENT | | | Unknown | | | Urine | | | Culture | | | Not... | | | Pharmacovig | | | ilance: | | | Palliative | | | Care: | | | Procedure: | | | MANUEL C. | | | GIAN | | | , MD | | | Portions of | | | this chart | | | may have | | | been | | | created | | | with Dragon | | | voice | | | recognition | | | software. | | | Occasional | | | wrong-word | | | or | | | | | | sound-alike | | | | | | | | | substitutio | | | ns may have | | | occurred | | | due to the | | | inherent | | | limitations | | | of voice | | | recognition | | | software. | | | Please read | | | the chart | | | carefully | | | and | | | recognize, | | | using | | | context, | | | where these | | | | | | substitutio | | | ns have | | | occurred. | +---+ + +--------+--------+---+ + + | 06/03/ | Refill | | Gian, | Medication Refill | | 2018 | | | Manuel French MD | | +--------+--------+---+ + + from Last 3 Months Family History + + +------+ + | Medical History | Relation | Name | Comments | + + +------+ + | Alcohol abuse | Father | | | + + +------+ + | Gout | Father | | | + + +------+ + | Heart disease | Father | | | + + +------+ + | High blood pressure | Father | | | + + +------+ + | No Known Problems | Maternal | | | | | Grandfath | | | | | er | | | + + +------+ + | No Known Problems | Maternal | | | | | Grandmoth | | | | | er | | | + + +------+ + | Arthritis | Mother | | | + + +------+ + | Cancer | Mother | | colon, brain | + + +------+ + | Gout | Mother | | | + + +------+ + | Heart disease | Mother | | | + + +------+ + | Hypertension | Mother | | | + + +------+ + | No Known Problems | Paternal | | | | | Grandfath | | | | | er | | | + + +------+ + | Diabetes | Paternal | | | | | Grandmoth | | | | | er | | | + + +------+ + | Gout | Paternal | | | | | Grandmoth | | | | | er | | | + + +------+ + | High blood pressure | Paternal | | | | | Grandmoth | | | | | er | | | + + +------+ + + +------+ + + | Relation | Name | Status | Comments | + +------+ + + | Brother | | Alive | | + +------+ + + | Daughter | | Alive | | + +------+ + + | Father | | | | + +------+ + + | Maternal Grandfather | | | | + +------+ + + | Maternal Grandmother | | | | + +------+ + + | Mother | | | | + +------+ + + | Paternal Grandfather | | | | + +------+ + + | Paternal Grandmother | | | | + +------+ + + | Sister | | Alive | | + +------+ + + | Son | | Alive | | + +------+ + + Social History + +-------+ +--------+ [...] + + + | Blood Pressure | 75/50 | 08/12/20171415 PDT | + + + + | Pulse | 74 | 08/12/20171415 PDT | + + + + | Temperature | 36.5 C (97.7 F) | 08/12/20171415 PDT | + + + + | Respiratory Rate | 18 | 08/12/2017 1416 PDT | + + + + | [...] Height | 160 cm (5' 2.99") | 06/26/2017 1610 PST | + + + + | Body Mass Index | 32.15 | 08/12/2017 1111 PDT | + + + + Plan of Treatment + + + + + | Health Maintenance | Due Date | Last Done | Comments | + + + + + | Vaccine: | | | | | Dtap/Tdap/Td (1 - | 3 | | | | Tdap) | | | | + + + + + | Vaccine: | | | | | Pneumococcal - | 3 | | | | Highest Risk (1 of 3 | | | | | - PCV13) | | | | + + + + + | CERVICAL CANCER | | | | | SCREENING (PAP EVERY | 5 | | | | 3 YEARS 21-64 ) | | | | + + + + + | BREAST CANCER | | | | | SCREENING (MAMM Q2 | 4 | | | | YEARS 50-74) | | | | + + + + + | COLON CANCER | | | | | SCREENING | 4 | | | | (COLONOSCOPY EVERY | | | | | 10 YEARS 50-75) | | | | + + + + + | Vaccine: Influenza | | | | | (Season Ended) | 8 | | | + + + + + | Hepatitis C | Completed | 04/09/2016 | | | Screening | | | | + + + + + Results Product: Platelet Pheresis, Leukoreduced (08/13/2017 0115) + + + + | Component | Value | Ref Range | + + + + | Product Code | [id number] | | + + + + | UNIT # | [id number] | | + + + + | UNIT ABO | O | | + + + + | UNIT RH | POS | | + + + + | Unit Status | Transfused | | + + + + | Blood Product ABORh | OPOS | | + + + + | Blood Product | [id number] | | | Expiration Date and | | | | Time | | | + + + + | Product Blood Type | 5100 | | | Barcode | | | + + + + + + + | Specimen | Performing Laboratory | + + + | Blood Product | [facility] [address] | | | [place] [address] | + + + Platelet Count (08/12/2017 1523) + + + + | Component | Value | Ref Range | + + + + | Platelet Count | 9 (LL)Comment: Critical Result called to | 140 - 440 K/uL | | | and read back by sarika fitzgerald RN on | | | | 08/12/2017 at 15:38 by Kolton Queen. | | + + + + | MPV | 8.5 | fL | + + + + + + + | Specimen | Performing Laboratory | + + + | Blood | [facility] [address] | | | [place] [address] | + + + Platelets (PLT) - Transfuse (08/12/2017 1416)Only the most recent of 2 results within the t rishi period is included.Type and Screen (08/12/2017 1213) + + + + | Component | Value | Ref Range | + + + + | ABO | O | | + + + + | Rh Type | Positive | | + + + + | Antibody Screen | Negative | | + + + + + + + | Specimen | Performing Laboratory | + + + | Blood | [facility] [address] | | | [place] [address] | + + + Slide Review, Peripheral Smear (08/12/2017 1122)Only the most recent of 2 results within th e time period is included. + + + [...] | + + + | Blood | [facility] [address] | | | [place] [address] | + + + + + | Narrative | + + | Consistent with Automated results | + + CBC w/ Auto Differential (08/12/2017 1122) + + + + | Component | Value | Ref Range | + + + + | WBC | 0.3 (LL)Comment: Critical Result called to | 4.0 - 11.0 K/uL | | | and read back by Sarika Fitzgerald RN on | | | | 08/12/2017 at 11:54 by Kolton D Cisse. | | + + + + [...] | | | and read back by Sarika Fitzgerald RN on | | | | 08/12/2017 [...] + + + | Blood | [facility] [address] | | | [place] [address] | + + + Extra Plain Red Top Tube (08/12/2017 1122) + +-------+ + | Component | Value | Ref Range | + +-------+ + | Extra Plain Red Top | Done | | | Tube | | | + +-------+ + + + + | Specimen | Performing Laboratory | + + + | Blood | [facility] [address] | | | [place] [address] | + + + Lactate Dehydrogenase (08/12/20171121) + +---------+ + | Component | Value | Ref Range | + +---------+ + | LDH TOTAL | 208 (H) | 91 - 180 U/L | + +---------+ + + + + | Specimen | Performing Laboratory | + + + | Blood | [facility] [address] | | | [place] [address] | + + + Comprehensive Metabolic Panel [...] GLOMERULAR FILTRATION | >=60 mL/min/1.73m2 | | [place] | RATE,ESTIMATED mL/min/1.99w4Cmdh than | | | | 60 Chronic [...] + + + | Blood | [facility] [address] | | | [place] [address] | + + + CT Chest wo Contrast (06/28/2017 1202) + [...] signed: 06/28/2017 12:59 PM | + + [facility] Referral (06/28/2017 1107) + + + + | Component | Value | Ref Range | + + + + | Miscellaneous Lab | COMMENTComment: Test Ordered: [id number] | | | Test Result | IDH1/IDH2 [...] amino | | | | acids 140 gcy735 of | | | | IDH2.Method | [...] in IDH1 and | | | | [id number]: R100Q, R100L, R100P, R132C, | | | | R132S, R132G, R132H, R132L, | | | | R132P, R132V, | | | | [id number]: R172K, R172M, R172T, R172W, | | | | R172G, R172S, R140G, R140W, | | | | R140L, R140Q, | | | | [id number] | | | | | | | | Comment | | | | 01 (1) Clin Cancer Res. 2016 Jul | | | | 15;22(8):1837-42. Molecular | | | | Pathways:Isocitrate Dehydrogenase Mutations | | | | in Cancer. Sachin O, Valentina KAmbar | | | | IK.(2) Clin Cancer Res. 2013 May | | | | 15;19(4):764-72. The definition | | | | ofprimary and secondary | | | | gliobastoma. Pepe H1, Susanna P.(3) | | | | Fátima Oncol. 2016 Jul;27(4):599-608. IDH | | | | mutations in cancer andprogress toward | | | | development of targeted | | | | therapeutics. Bonny L, Valentina K,Gordon EC.(4) | | | | Leukemia. 2017 | | | | Fe;31(2):272-281. Isocitrate | | | | dehydrogenasemutations in myeloid | | | | malignancies. Carmelina BC, Christoph AT, | | | | Erica CD,Padmini DA, Patterson SM, Swsebastián | | | | R.(5) N Engl J Med. 2008 | | | | 19;360(8):142-73. IDH1 and IDH2 | | | | mutationsin gliomas. Cordell H, Emy DW, | | | | Reed G, Alden R, Miguel BA, Moreno W,Kos | | | | I, Sydney I, Jude S, Yancy GJ, | | | | Susanne H, Susanne A,Jun D, Du Pont | | | | J, Magdiel KW, Dara VE, Vogelstein | | | | B,Fernando DD.(6) | | | | https://www.fda.gov/Drugs/InformationonDrug | | | | s/ApprovedDrugs/[email or web address].htmDirector | | | | Review Comme | | | | nt | | | | 01 Jacque Levy, PhD, | | | | [facility] Director, | | | | Molecular | | | | Genetics | | | | [facility] | | | | Molecular | | | | Biology and | | | | Pathology | | | | [facility], | | | | [place] | | | | Microdissection | | | | Performed TNP | | | | 02 Test not | | | | performed | | + + + + + + + | Specimen | Performing Laboratory | + + + | Blood - Peripheral | [facility] [address] [facility] | | Blood | [place] [address] | + + + + + | Narrative | + + | Performed at: 03 - [facility] [address] [place], [place] [id number] | | Household Manager: Anish Anderson MD, Phone: [phone] | + + CBC with Differential (06/28/2017330)Only the most recent of 2 results within the time mayda garcia is [...] + + + | Blood | [facility] [address] | | | [place] [address] | + + + Uric Acid (06/28/2017 0331)Only the most recent of 2 results within the time period is incl uded. + +-------+ + | Component | Value | Ref Range | + +-------+ + | URIC ACID | 5.3 | 2.6 - 7.2 mg/dL | + +-------+ + + + + | Specimen | Performing Laboratory | + + + | Blood | [facility] [address] | | | [place] [address] | + + + Phosphorus (06/28/2017 0331)Only the most recent of 2 results within the time period is inc luded. + +-------+ + | Component | Value | Ref Range | + +-------+ + | PHOSPHORUS | 3.5 | 2.5 - 4.6 mg/dL | + +-------+ + + + + | Specimen | Performing Laboratory | + + + | Blood | [facility] [address] | | | [place] [address] | + + + Basic Metabolic Panel (06/28/2017 0331)Only the most recent of 2 results within the time mayda garcia is [...] GLOMERULAR FILTRATION | >=60 mL/min/1.73m2 | | [place] | RATE,ESTIMATED mL/min/1.88u5Cyaw than | | | | 60 Chronic [...] | + + + | Blood | [facility] [address] | | | [place] [address] | + + + Urinalysis with Microscopic [...] | + + + + | Specific [place] | 1.017 | 1.001 - 1.030 | [...] + + + | Urine | [facility] [address] | | | [place] [address] | + + + Extra Blood Bank Tube (06/26/2017 1700) + + + + | Component | Value | Ref Range | + + + + | Hold BB | Hold Specimen | | + + + + + + + | Specimen | Performing Laboratory | + + + | Blood | [facility] [address] | | | [place] [address] | + + + Wei, Manual (06/26/2017 [...] + + + | Blood | [facility] [address] | | | [place] [address] | + + + from Last 3 Months Insurance + +--------+ +--------+ +---------+ | Payer | Benefi | Subscriber | Type | Phone | Address | | | t Plan | ID | | | | | | / | | | | | | | Group | | | | | + +--------+ +--------+ +---------+ | [employer] | MODA | [phone] | Medica | [phone] | | | MEDICAID HMO | HEALTH | | id | [id number] | | | | [place] | | | | | | | [place]MO [place] | | | | | + +--------+ +--------+ +---------+ + +--------+ +--------+ + + | Guarantor Name | Accoun | Relation to | Date | Phone | Billing Address | | | t Type | Patient | of | | | | | | | | | | + +--------+ +--------+ + + | RHEA HUTCHISON | Person | Self [birth year] Home: | [address] | | | al/Fam | | 1966 | [phone] [address] [place], | | | eric | | | [address] | [place] [address] | + +--------+ +--------+ + +
--- OUTSIDE RECORDS SUMMARY | ~2017-08-27 | XMS | Encounter Summary ---
Demographics + + + | Address | [address] | | | [place] [address] | + + + | Home Phone | | + + + | Preferred Language | Unknown | + + + | Marital Status | | + + + | Gnosticism Affiliation | NON | + + + | Race | White | + + + | Ethnic Group | Not or | + + + Author + + + | Author | [facility] | + + + | Organization | [facility] | + + + [...] Team Providers + +------+ + | Care Operations Research Analyst Name | Role | Phone | + +------+ + | Saurav De Los Santos NP | PCP | | + +------+ + Encounter Details +--------+ + + + + | Date | Type | Department | Care Team | Description | +--------+ + + + + | 07/03/ | Pharmacy | Specialty Pharmacy | | | | 2017 | Visit | Services [address] | | | | | | [address] | | | | | | [place], [place] | | | | | | [address] | | | | | | [phone] | | | +--------+ + + + [...]
--- OUTSIDE RECORDS SUMMARY | ~2017-08-27 | XMS | Encounter Summary ---
Demographics + + + | Address | [address] | | | [place] [address] | + + + | Home Phone | | + + + | Preferred Language | Unknown | + + + | Marital Status | | + + + | Baptism Affiliation | NON | + + + | Race | White | + + + | Ethnic Group | Not or | + + + Author + + + | Author | [facility] | + + + | Organization | [facility] | + + + | Address [...] Team Providers + +------+ + | Care Operator Assistant I Cementing Name | Role | Phone | + [...] 2018 | Visit | Hematologic | M, TIN WORKER [address] [facility] | leukemia not having | | | | Malignancies at | [facility] | achieved remission | | | | [facility] | [place], [place] | (HCC) (Primary Dx) | | | | [address] [facility] | [address] | | | | | [address] | [phone] | | | | | Mailcode: [id number] | | | | | | [facility] | Adrián Singer MD | | | | | [place], [place] | [address] [facility] | | | | | [address] | [address] [place], | | | | | [phone] | [place] [address] | | | | | | [phone] | | | | | | | | | | | | Glenna Shah, | | | | | | EMPLOYMENT INTERVIEWER [address] [facility] | | | | | | [facility] | | | | | | [place], [place] | | | | | | [address] | | | | | | [phone] | | | | | | | [...]
--- OUTSIDE RECORDS SUMMARY | ~2017-08-27 | XMS | Encounter Summary ---
Demographics + + + | Address | [address] | | | [place] [address] | + + + | Home Phone | | + + + | Preferred Language | Unknown | + + + | Marital Status | | + + + | Sabianism Affiliation | NON | + + + | Race | White | + + + | Ethnic Group | Not or | + + + Author + + + | Author | [facility] | + + + | Organization | [facility] | + + + | Address | [...] Team Providers + +------+ + | Care Telephone Directory Distributor Driver Name | Role | Phone | + [...] | Family results) | | | | [facility] | [facility] | | | | | Mailcode: PP262 | [place], [place] | | | | | [address] | [address] | | | | | [address] [place], | [phone] | | | | | [place] [address] | | | | | | [phone] | | | +--------+ + + + [...]
--- OUTSIDE RECORDS SUMMARY | ~2017-08-27 | XMS | Encounter Summary ---
Demographics + + + | Address | [address] | | | [place] [address] | + + + | Home Phone | | + + + | Preferred Language | Unknown | + + + | Marital Status | | + + + | Anglican Affiliation | NON | + + + | Race | White | + + + | Ethnic Group | Not or | + + + Author + + + | Author | [facility] | + + + | Organization | [facility] | + + + | Address [...] Team Providers + +------+ + | Care Oil Field Worker Name | Role | Phone | [...] [address] | | | | | | [place], [place] | | | | | | [address] | | | | | | [phone] | | | +--------+ + + + [...]
--- OUTSIDE RECORDS SUMMARY | ~2017-08-27 | XMS | Encounter Summary ---
Demographics + + + | Address | [address] | | | [place] [address] | + + + | Home Phone | | + + + | Preferred Language | Unknown | + + + | Marital Status | | + + + | Methodist Affiliation | NON | + + + | Race | White | + + + | Ethnic Group | Not or | + + + Author + + + | Author | [facility] | + + + | Organization | [facility] | + + + | Address [...] Team Providers + +------+ + | Care Office Associate Name | Role | Phone | + [...] | Family results) | | | | [facility] | [facility] | | | | | Mailcode: PP[address] | [place], [place] | | | | | [address] | [address] | | | | | [address] [place], | [phone] | | | | | [place] [address] | | | | | | [phone] | | | +--------+ + + + [...]
--- OUTSIDE RECORDS SUMMARY | ~2017-08-27 | XMS | Encounter Summary ---
Demographics + + + | Address | [address] | | | [place] [address] | + + + | Home Phone | | + + + | Preferred Language | Unknown | + + + | Marital Status | | + + + | Sikhism Affiliation | NON | + + + [...] Team Providers + +------+ + | Care Water Truck Driver Name | Role | Phone | + +------+ + | Saurav De Los Santos NP | PCP | | + +------+ + Encounter Details +--------+ + + + + | Date | Type | Department | Care Team | Description | +--------+ + + + + | 06/29/ | Pharmacy | Specialty Pharmacy | | | | 2017 | Visit | Services [address] | | | | | | [address] | | | | | | [place], [place] | | | | | | [address] | | | | | | [phone] | | | +--------+ + + + [...]
--- OUTSIDE RECORDS SUMMARY | ~2017-08-27 | XMS | Encounter Summary ---
Demographics + + + | Address | [address] | | | [place] [address] | + + + | Home Phone | | + + + | Preferred Language | Unknown | + + + | Marital Status | | + + + | Voodoo Affiliation | NON | + + + | Race | White | + + + | Ethnic Group | Not or | + + + Author + + + | Author | [facility] | + + + | Organization | 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
--- OUTSIDE RECORDS SUMMARY | ~2017-08-27 | XMS | Encounter Summary ---
Demographics + + + | Address | [address] | | | [place] [address] | + + + | Home Phone | | + + + | Preferred Language | Unknown | + + + | Marital Status | | + + + | Hinduism Affiliation | NON | + + + | Race | White | + + + | Ethnic Group | Not or | + + + Author + + + | Author | [facility] | + + + | Organization | [facility] | + + + | [...] Team Providers + +------+ + | Care Certified Legal Secretary Specialist Name | Role | Phone | + +------+ + | Saurav De Los Santos NP | PCP | | + +------+ + Encounter Details +--------+ + + + + | Date | Type | Department | Care Team | Description | +--------+ + + + + | 08/08/ | Pharmacy | Outpatient Retail | | | | 2017 | Visit | Clinic Pharmacy | | | | | | [address] | | | | | | [facility] | | | | | | [place], [place] | | | | | | [address] | | | +--------+ + + + [...]
--- OUTSIDE RECORDS SUMMARY | ~2017-08-27 | XMS | Encounter Summary ---
Demographics + + + | Address | [address] | | | [place] [address] | + + + | Home Phone [...] Team Providers + +------+ + | Care Chief Clinical Officer Name | Role | Phone | + +------+ + | Saurav De Los Santos NP | PCP | | + +------+ + Encounter Details +--------+ + + + + | Date | Type | Department | Care Team | Description | +--------+ + + + + | 06/30/ | Pharmacy | Specialty Pharmacy | | | | 2017 | Visit | Services [address] | | | | | | [address] | | | | | | [place], [place] | | | | | | [address] | | | | | | [phone] | | | +--------+ + + + [...]
--- OUTSIDE RECORDS SUMMARY | ~2017-08-27 | XMS | Encounter Summary ---
Demographics + + + | Address | [address] | | | [place] [address] | + + + | Home Phone | | + + + | Preferred Language | Unknown | + + + | Marital Status | | + + + | Bahai Affiliation | Unknown | + + + | Race | Unknown | + + + | Ethnic Group | Unknown | + + + Author + + + | Author | [facility] | | | and [place] | + + + | Organization | [facility] | | | and [place] | + + + | Address | Unknown | + + + | Phone | Unavailable | + + + Support + + + + + | Name | Relationship | Address | Phone | + + + + + | Jhony Hutchison | ECON | [address] | | | | | [address] [place] | | | | | [address] | | + + + + + | Florni Pantoja | ECON | Unknown | | + + + + + Care Team Providers + +------+ + | Care Pulp Roller Name | Role | Phone | + [...] + + | 06/26/ | Hospital | [facility] | Leonardo, | AML (acute myeloid | | 2018 - | Encounter | [facility] | Manuel French MD [address] | leukemia) in relapse | | | | [address] [place] | [address] [place] | (HCC) | | 03/02/ | | [place] [address] | [place] [address] | | | 2017 | | [phone] | [phone] | | | | | | | | | | | | Kar Delgado | | | | | | Horacio Malik MD | | | | | | [address] | | | | | | [id number] | | | | | | [place] [address] | | | | | | [phone] | | | | | | | [...] fro m the original. Hematology/Oncology Transfer Note [place], [place] Pt. Name/Age/: Rhea Hutchison 51 y.o. 1965 Med. Record Number: [id number] Date of admission: 06/26/2017 Date of Transer: 06/28/17 Accepting Facility: [facility], Unit 14K, bed 11 Accepting provider; Dr. Salomón Delgado. The patient's primary care provider is Saurav De Los Santos NP. Identifying Statement: Rhea Hutchison is a 51 y.o. female from [address] [place] [address] with Second Relapse of Acute Myelogenous Leukemia. [...] first complete remission. 1. Presentation to the [facility] emergency room in [facility] on January 272015 with complaints of cough and odynophagia. Complete blood count was notable for a wh ite count of 117,000, hemoglobin 10.7 g/dL, platelet count of 51,000. She was emergently tr ansferred to the [facility] were bone marrow biopsy and aspiration at [facility] on February 15, 2016 confirmed acute myelogenous [...] Cycle#1 MiDaC (1500 mg/m Cytarabine) consolidation at [facility] on March 27, 2016. 4. Cycle#2 MiDaC (1500 mg/m Cytarabine) consolidation at [facility] on May 01, 2016. 5. Cycle#3 MiDaC (1200 mg/m Cytarabine) consolidation at [facility] on May 28, 2016. 6. Cycle#4 MiDaC (1000 mg/m Cytarabine ) consolidation at [facility] on June 25, 2016. 7. Bone Marrow Biopsy and Aspiration July 23, 2016 at the [facility] in [place], [place] specimen # [id number] demonstrated ongoing complete remissio n. Molecular analysis [...] Hgb 13.8, Hct 41.8%, Platelet count 10,000. [id number] U/L, BUN 14 mg/dL, Scr 0.82 mg/dL. 14. Admit [facility] 03/01/2017; Chest X-ray consis tent with pulmonary leukostasis. Hydroxyurea 2 grams po q 4 hours x 3 doses with no change i n WBC. 15. Transfer to [facility]; bone marrow biopsy and aspiration were performed [...] #1 of high-dose cytarabine consolidation at the [facility] on March 26, 2016. 19. Cycle #2 of cytarabine consolidation at the [facility] on Apr. 20. Cycle #3 of cytarabine consolidation at the [facility] in [place], [place], May 28, 2016. 21. Cycle #4 of cytarabine consolidation chemotherapy at the [facility] in [place], [place], June 25, 2016. 22. Repeat bone marrow biopsy and aspiration on July 23, 2016, at the [facility] in [place], [place], specimen #[id number] demonstrating ongo ing complete remission. Molecular analysis [...] tap) June 21, 2017 ([facility] BM-18-0 02283); 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 myelogenous leukemia (60%); Blasts po sitive for CD117 and CD 33, negative for CD34, CD71, CD61, CD3 and PAX-5. Current Assessment & Plan Rhea Hutchison was admitted on June 26, 2017 for management of her second relapse o f acute myelogenous leukemia. Extended bedside encounter with Rhea and her , Jhony, with included communications with [facility] provider Denisha Reno (covering for Salomón Delgado MD) as well as two communicat ions with the [facility] transfer center . Communications were made slightly more co mplicated by the fact that Rhea reported finding her certificate 10 days ago and dis covered that her birthday is actually [birth year]. This was corrected in the [facility] electronic r ecord, however Rhea is still listed as 61 in the [facility] electronic record. I notif ied both Toshia Salinas RN at [facility] and the [facility] transfer center of this issue. Dr. Salomón Delgado has accepted Rhea Hutchison as the attending physician for hospital t o hospital transfer to [facility] when a bed is available on either [...] Relapsed acute myelogenous leukemia. Plan; Transfer to [facility], Unit 14K, Bed 11. Dr. Salomón Delgado [...] tablet 800 mg 800 mg Oral Daily Maunel Springer MD 800 mg at 06/28/17 0846 [...] hydrocortisone 1% cream Topical TID PRN Manuel Sprniger MD HYDROmorphone (DILAUDID) injection 0.25-1 mg 0.25-1 [...] of lungs Hypothyroidism Insomnia Leukemia in remission ([facility]) Posttraumatic stress disorder Right buttock pain 12/12/2016 Sciatica Thyroid disorder Past Surgical History: Procedure Laterality Date BONE MARROW BIOPSY N/A 07/23/2016 Procedure: BIOPSY / ASPIRATION BONE MARROW; Surgeon: Manuel Springer MD; Location: [facility] SHORT STAY CARPAL TUNNEL RELEASE 2004 [facility]; [place] CHOLECYSTECTOMY 06/2013 [facility]; [place] [facility]. JOINT REPLACEMENT 01/2014 Knee replacement KNEE ARTHROPLASTY Right 01/2014 [facility]; [place] PARTIAL HYSTERECTOMY 1989 [facility]; [place] [facility]. Social History Social History [...] RDanielH., Yariel Arevalo., Leonel Zurita., Manohar, TMarcelina., [place], JeromyT., [place], P .P.: Toxicity And Response [...] Latest Ref Range: Clear Hazy (A) Specific [place] Latest Ref Range: 1.001 - 1.030 1.017 [...] this chart may have been created with RuckPack voice recognition software. Occasi onal wrong-word or [...] m the original. Hematology/Oncology Daily Progress Note [facility] [place] Pt. Name/Age/: Rhea Hutchison 51 y.o. 1965 Med. Record Number: [id number] Date of admission: 06/26/2017 Today's Date: 06/28/17 Location: [address] [place] [address] The patient's primary care provider is Saurav De Los Santos NP. Identifying Statement: Rhea Hutchison is a 51 y.o. female from [address] [place] [address] with a second relapse of acute myelogenous [...] first complete remission. 1. Presentation to the [facility] emergency room in [facility] on January 272015 with complaints of cough and odynophagia. Complete blood count was notable for a wh ite count of 117,000, hemoglobin 10.7 g/dL, platelet count of 51,000. She was emergently tr ansferred to the [facility] [place] were bone marrow biopsy and aspiration at [facility] on February 15, 2016 confirmed acute myelogenous [...] Cycle#1 MiDaC (1500 mg/m Cytarabine) consolidation at [facility] on March 27, 2016. 4. Cycle#2 MiDaC (1500 mg/m Cytarabine) consolidation at [facility] on May 01, 2016. 5. Cycle#3 MiDaC (1200 mg/m Cytarabine) consolidation at [facility] on May 28, 2016. 6. Cycle#4 MiDaC (1000 mg/m Cytarabine ) consolidation at [facility] on June 25, 2016. 7. Bone Marrow Biopsy and Aspiration July 23, 2016 at the [facility] in [place], [place] specimen # [id number] demonstrated ongoing complete remissio n. Molecular analysis [...] Hgb 13.8, Hct 41.8%, Platelet count 10,000. [id number] U/L, BUN 14 mg/dL, Scr 0.82 mg/dL. 14. Admit [facility] 03/01/2017; Chest X-ray consis tent with pulmonary leukostasis. Hydroxyurea 2 grams po q 4 hours x 3 doses with no change i n WBC. 15. Transfer to [facility]; bone marrow biopsy and aspiration were performed [...] #1 of high-dose cytarabine consolidation at the [facility] on March 26, 2016. 19. Cycle #2 of cytarabine consolidation at the [facility] on Apr. 20. Cycle #3 of cytarabine consolidation at the [facility] in [place], [place], May 28, 2016. 21. Cycle #4 of cytarabine consolidation chemotherapy at the [facility] in [place], [place], June 25, 2016. 22. Repeat bone marrow biopsy and aspiration on July 23, 2016, at the [facility] in [place], [place], specimen #[id number] demonstrating ongo ing complete remission. Molecular analysis [...] tap) June 21, 2017 (Integrated On[facility] BM-18-0 08222); 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 myelogenous leukemia (60%); Blasts po sitive for CD117 and CD 33, negative for CD34, CD71, CD61, CD3 and PAX-5. Current Assessment & Plan Rhea Hutchison was admitted on June 26, 2017 for management of her second relapse o f acute myelogenous leukemia. Extended bedside encounter with Rhea and her , Jhony, with included communications with [facility] provider Denisah Reno (covering for Salomón Delgado MD) as well as two communicat ions with the [facility] transfer center . Communications were made slightly more co mplicated by the fact that Rhea reported finding her certificate 10 days ago and dis covered that her birthday is actually 61. This was corrected in the [facility] electronic r ecord, however Rhea is still listed as 61 in the [facility] electronic record. I notif ied both Toshia Salinas RN at [facility] and the [facility] transfer center of this issue. Dr. Salomón Delgado has accepted Rhea Hutchison as the attending physician for hospital t o hospital transfer to [facility] when a bed is available on either the 14th or 13th floor. Commun ications with the [facility] transfer center and Dr. Denisha Reno confirm that there are no beds av ailable at [facility] today. Dr. Reno was updated on Rhea's [...] Care discussed with Dr. Denisha Reno at [facility] (covering for Dr. Delgado, who has accep sharon patient in transfer). Patient will receive hydroxyurea 2000 mg orally twice a day today. She will otherwise carlita nue on full supportive care with fluids, antibiotics, antifungals, anti-virals and blood pro ducts until a bed is available for her at [facility]. The overall treatment plan in to try [...] Chronic constipation COPD (chronic obstructive pulmonary disease) ([facility]) Depression Hyperinflation of lungs Hypothyroidism Insomnia Leukemia in remission ([facility]) Posttraumatic stress disorder Right buttock pain 12/12/2016 Sciatica Thyroid disorder Past Surgical History: Procedure Laterality Date BONE MARROW BIOPSY N/A 07/23/2016 Procedure: BIOPSY / ASPIRATION BONE MARROW; Surgeon: Manuel Springer MD; Location: [facility] SHORT STAY CARPAL TUNNEL RELEASE 2004 [facility]; [place] CHOLECYSTECTOMY 06/2013 [facility]; [place]. JOINT REPLACEMENT 01/2014 Knee replacement KNEE ARTHROPLASTY Right 01/2014 [facility]; [place] PARTIAL HYSTERECTOMY 1989 [facility]; [place]. Social History Social History Marital status: [...] this chart may have been created with RuckPack voice recognition software. Occasi onal wrong-word or [...] from the original. Hematology/Oncology Daily Progress Note [facility] [place] Pt. Name/Age/: Rhea Hutchison 51 y.o. 1965 Med. Record Number: [id number] Date of admission: 06/26/2017 Today's Date: 06/27/17 Location: [address] [place] [address] The patient's primary care provider is Saurav De Los Santos NP. Identifying Statement: Rhea Hutchison is a 51 y.o. female from [address] [place] [address] with a second relapse of acute myelogenous [...] first complete remission. 1. Presentation to the [facility] emergency room in [facility] on January 272015 with complaints of cough and odynophagia. Complete blood count was notable for a wh ite count of 117,000, hemoglobin 10.7 g/dL, platelet count of 51,000. She was emergently tr ansferred to the [facility] were bone marrow biopsy and aspiration at [facility] on February 15, 2016 confirmed acute myelogenous [...] Cycle#1 MiDaC (1500 mg/m Cytarabine) consolidation at [facility] on March 27, 2016. 4. Cycle#2 MiDaC (1500 mg/m Cytarabine) consolidation at [facility] on May 01, 2016. 5. Cycle#3 MiDaC (1200 mg/m Cytarabine) consolidation at [facility] on May 28, 2016. 6. Cycle#4 MiDaC (1000 mg/m Cytarabine ) consolidation at [facility] on June 25, 2016. 7. Bone Marrow Biopsy and Aspiration July 23, 2016 at the [facility] in [place], [place] specimen # [id number] demonstrated ongoing complete remissio n. Molecular analysis [...] Hgb 13.8, Hct 41.8%, Platelet count 10,000. [id number] U/L, BUN 14 mg/dL, Scr 0.82 mg/dL. 14. Admit [facility] 03/01/2017; Chest X-ray consis tent with pulmonary leukostasis. Hydroxyurea 2 grams po q 4 hours x 3 doses with no change i n WBC. 15. Transfer to [facility]; bone marrow biopsy and aspiration were performed [...] #1 of high-dose cytarabine consolidation at the [facility] on March 26, 2016. 19. Cycle #2 of cytarabine consolidation at the [facility] on Apr. 20. Cycle #3 of cytarabine consolidation at the [facility] in [place], [place], May 28, 2016. 21. Cycle #4 of cytarabine consolidation chemotherapy at the [facility] in [place], [place], June 25, 2016. 22. Repeat bone marrow biopsy and aspiration on July 23, 2016, at the [facility] in [place], [place], specimen #[id number] demonstrating ongo ing complete remission. Molecular analysis [...] tap) June 21, 2017 (Integrated Oncology BM-18-0 70410); 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 myelogenous leukemia (60%); Blasts po sitive for CD117 and CD 33, negative for CD34, CD71, CD61, CD3 and PAX-5. Current Assessment & Plan Rhea Hutchison was admitted on June 26, 2017 for management of her second relapse o f acute myelogenous leukemia. Extended bedside encounter with Rhea and her , Jhony, with included communications from [facility] providers Renea Bell MD, Salomón Delgado MD and Toshia Salinas RN , as well as two communications with the [facility] transfer center . Communications were made slightly more complicated by the fact that Rhea reported finding her cert ificate nine days ago and discovered that her birthday is actually [birth year]. This was correc sharon in the [facility] electronic record, however Rhea is still listed as 61 in the [facility] electronic record. I notified both Toshia Salinas RN and the [facility] transfer center of this i ssue. Dr. Salomón Delgado has accepted Rhea Hutchison as the attending physician for hospital t o hospital transfer to [facility] when a bed is available on either [...] BONE MARROW; Surgeon: Manuel Springer MD; Location: [facility] SHORT STAY CARPAL TUNNEL RELEASE 2004 [facility]; [place] CHOLECYSTECTOMY 06/2013 [facility]; [place] [facility]. JOINT REPLACEMENT 01/2014 Knee replacement KNEE ARTHROPLASTY Right 01/2014 [facility]; [place] [facility] PARTIAL HYSTERECTOMY 1989 [facility]; [place]. Social History Social History Marital status: [...] Latest Ref Range: Clear Hazy (A) Specific [place] Latest Ref Range: 1.001 - 1.030 1.017 [...] this chart may have been created with RuckPack voice recognition software. Occasi onal wrong-word or [...] | Miscellaneous Lab | COMMENTComment: Test Ordered: [id number] | | | Test Result | IDH1/IDH2 [...] amino | | | | acids 140 wia660 of | | | | IDH2.Method | [...] in IDH1 and | | | | [id number]: R100Q, R100L, R100P, R132C, | | | | R132S, R132G, R132H, R132L, | | | | R132P, R132V, | | | | [id number]: R172K, R172M, R172T, R172W, | | | | R172G, R172S, R140G, R140W, | | | | R140L, R140Q, | | | | [id number] | | | | | | | [...] | | | mutationsin gliomas. Cordell Vazquez, mEy DW, | | | | Reed G, Alden R, Miguel BA, Moreno W,Kos | | | | I, Sydney I, Jude S, Yancy GJ, | | | | Susanne H, Susanne A,Jun D, Wilmer | | | | J, Magdiel RUSSELL, Dara VE, Heath | | | | B,Fernando CURRY.(6) | | | | https://www.fda.gov/Drugs/InformationonDrug | | | | [email or web address] | | | | Review Comme | | | | nt | | | | 01 Jacque Levy, PhD, | | | | [facility] Director, | | | | Molecular | | | | Genetics | | | | [facility] | | | | Molecular | | | | Biology and | | | | Pathology | | | | [facility], | | | | [place] | | | | [phone] | | | | Performed TNP | | | | 02 Test not | | | | performed | | + + + + + + + | Specimen | Performing Laboratory | + + + | Blood - Peripheral | [facility] [place] [address] [facility] | | Blood | [place], [place] [address] | + + + + + | Narrative | + + | Performed at: 03 - [facility] [address] [id number] | | Mud Grinder: Anish Anderson MD, Phone: [phone] | + + Slide Review, Peripheral Smear [...] + + + | Blood | [facility] [address] | | | [place] [address] | + + + + + | [...] | + + + | Blood | [facility] [address] | | | [place] [address] | + + + Phosphorus (06/28/2017330) + +-------+ + | Component | Value | Ref Range | + +-------+ + | PHOSPHORUS | 3.5 | 2.5 - 4.6 mg/dL | + +-------+ + + + + | Specimen | Performing Laboratory | + + + | Blood | [facility] [address] | | | [place] [address] | + + + Basic Metabolic Panel [...] GLOMERULAR FILTRATION | >=60 mL/min/1.73m2 | | ARMENIAN | RATE,ESTIMATED mL/min/1.53u2Wtxu than | | | | 60 Chronic [...] | + + + | Blood | [facility] [address] | | | [place] [address] | + + + CBC with Differential [...] | + + + | Blood | [facility] [address] | | | [place] [address] | + + + Urinalysis with Microscopic [...] | + + + + | Specific [place] | 1.017 | 1.001 - 1.030 | [...] + + + | Urine | [facility] [address] | | | [place] [address] | + + + Extra Blood Bank Tube (06/26/2017 1700) + + + + | Component | Value | Ref Range | + + + + | Hold BB | Hold Specimen | | + + + + + + + | Specimen | Performing Laboratory | + + + | Blood | [facility] [address] | | | [place] [address] | + + + Wei, Manual (06/26/2017 [...] | + + + | Blood | [facility] [address] | | | [place] [address] | + + + Phosphorus (06/26/2017 1648) + +-------+ + | Component | Value | Ref Range | + +-------+ + | PHOSPHORUS | 2.7 | 2.5 - 4.6 mg/dL | + +-------+ + + + + | Specimen | Performing Laboratory | + + + | Blood | [facility] [address] | | | [place] [address] | + + + Uric Acid (06/26/2017 1648) + +-------+ + | Component | Value | Ref Range | + +-------+ + | URIC ACID | 7.1 | 2.6 - 7.2 mg/dL | + +-------+ + + + + | Specimen | Performing Laboratory | + + + | Blood | [facility] [address] | | | [place] [address] | + + + CBC with Differential [...] + + + | Blood | [facility] [address] | | | [place] [address] | + + + Basic Metabolic Panel [...] GLOMERULAR FILTRATION | >=60 mL/min/1.73m2 | | ARMENIAN | RATE,ESTIMATED mL/min/1.81b9Keil than | | | | 60 Chronic [...] | + + + | Blood | [facility] [address] | | | [place] [address] | + + + in this encounter [...]
--- OUTSIDE RECORDS SUMMARY | ~2017-08-27 | XMS | Encounter Summary ---
Demographics + + + | Address | [address] | | | [place] [address] | + + + | Home Phone | | + + + | Preferred Language | Unknown | + + + | Marital Status | | + + + | Orthodox Affiliation | NON | + + + | Race | White | + + + | Ethnic Group | Not or | + + + Author + + + | Author | [facility] | + + + | Organization | [facility] | + + + | [...] Team Providers + +------+ + | Care Furnace Reliner Name | Role | Phone | + [...] [address] | | | | | | [place], [place] | | | | | | [address] | | | | | | [phone] | | | +--------+ + + + [...]
--- OUTSIDE RECORDS SUMMARY | ~2017-08-27 | XMS | Encounter Summary ---
Demographics + + + | Address | [address] | | | [place] [address] | + + + | Home Phone | | + + + | Preferred Language | Unknown | + + + | Marital Status | | + + + | Rastafari Affiliation | NON | + + + | Race | White | + + + | Ethnic Group | Not or | + + + Author + + + | Author | [facility] | + + + | Organization | [facility] | + + + | [...] Team Providers + +------+ + | Care Weld Lay Out Worker Name | Role | Phone | [...] [address] | | | | | | [place], [place] | | | | | | [address] | | | | | | [phone] | | | +--------+ + + + [...]
--- OUTSIDE RECORDS SUMMARY | ~2017-08-27 | XMS | Encounter Summary ---
Demographics + + + | Address | [address] | | | [place] [address] | + + + | Home Phone | | + + + | Preferred Language | Unknown | + + + | Marital Status | | + + + | Mormonism Affiliation | NON | + + + [...] Team Providers + +------+ + | Care Employment Attorney Name | Role | Phone | + +------+ + | Saurav De Los Santos NP | PCP | | + +------+ + Encounter Details +--------+ + + + + | Date | Type | Department | Care Team | Description | +--------+ + + + + | 07/01/ | Pharmacy | Outpatient Retail | | | | 2017 | Visit | [facility] | | | | | | [address] | | | | | | [facility] | | | | | | [place], [place] | | | | | | [address] | | | +--------+ + + + [...]
--- OUTSIDE RECORDS SUMMARY | ~2017-08-27 | XMS | Encounter Summary ---
Demographics + + + | Address | [address] | | | [place] [address] | + + + | Home Phone | | + + + | Preferred Language | Unknown | + + + | Marital Status | | + + + | Holiness Affiliation | NON | + + + [...] Team Providers + +------+ + | Care Floor Winder Name | Role | Phone | + [...] | | | [address] | [facility] | | | | | [facility] | [place], [place] | | | | | [place], [place] | [address] | | | | | [address] | [phone] | | | | | | | [...] | + + + | Blood | [facility] [address] [place] [address] [address] | | | [address] [place] [address] | + + + LIT HLA-DQ HIGH RES (06/03/2017 1:47 PM) + + + | Specimen | Performing Laboratory | + + + | Blood | [facility] [address] [place] [address] [address] | | | [address] [place] [address] | + + + LIT HLA-DR HIGH RES (06/03/2017 1:47 PM) + + + | Specimen | Performing Laboratory | + + + | Blood | [facility] [address] | | | [address] [place] [address] | + + + LIT HLA-C HIGH RES (06/03/2017 1:47 PM) + + + | Specimen | Performing Laboratory | + + + | Blood | [place] [facility] [address] | | | [address] [place] [address] | + + + LIT HLA-B HIGH RES (06/03/2017 1:47 PM) + + + | Specimen | Performing Laboratory | + + + | Blood | [facility] [address] [place] [address] [address] | | | [address] [place] [address] | + + + LIT HLA-A HIGH RES (06/03/2017 1:47 PM) + + + + | Component | Value | Ref Range | + + + + | LABEL ONLY - LIT | Please see lab report for result. | | + + + + + + + | Specimen | Performing Laboratory | + + + | Blood | [facility] [address] | | | [address] [place] [address] | + + + LIT HLA-DP HIGH RES (06/03/2017 1:47 PM) + + + | Specimen | Performing Laboratory | + + + | Blood | [facility] [address] [facility] [address] | | | [address] [place] [address] | + + + BMR/MUD PANEL (06/03/2017 [...] | ------ LIT HLA-A HIGH | | RES[[id number]] Final | | result LIT HLA-B HIGH | | RES[[id number]] Final | | result LIT HLA-C HIGH | | RES[[id number]] Final | | result LIT HLA-DR HIGH | | RES[[id number]] Final | | result LIT HLA-DQ HIGH | | RES[[id number]] Final | | result LIT HLA-DRB 3,4,5 HIGH | | RES[[id number]] Final | | result Please view results for these tests on the | | individual orders. 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
--- OUTSIDE RECORDS SUMMARY | ~2017-08-27 | XMS | Encounter Summary ---
Demographics + + + | Address | [address] | | | [place] [address] | + + + | Home Phone | | + + + | Preferred Language | Unknown | + + + | Marital Status | | + + + | Taoism Affiliation | Unknown | + + + | Race | Unknown | + + + | Ethnic Group | Unknown | + + + Author + + + | Author | [facility] | | | and [place] | + + + | Organization | [facility] | | | and [place] | + + + | Address | Unknown | + + + | Phone | Unavailable | + + + Support + + + + + | Name | Relationship | Address | Phone | + + + + + | Jhony Hutchison | ECON | [address] | | | | | [address] [place] | | | | | [address] | | + + + + + | lForin Pantoja | ECON | Unknown | | + + + + + Care Team Providers + +------+ + | Care Rn Surgery Name | Role | Phone | + [...] [place], | | | | | | [place] [address] | | | | | | [phone] | | | +--------+ + + + [...]
--- OUTSIDE RECORDS SUMMARY | ~2017-08-27 | XMS ---
Demographics + + + | Address | [address] | | | [address] | | | [place] [address] | + + + | Preferred Language | Unknown | + + + | Marital Status | Unknown | + + + | Scientologist Affiliation | Unknown | + + + | Race | Unknown | + + + | Ethnic Group | Unknown | + + + Author + + + | Author | [facility] | + + + | Organization | [facility] | + + + | Address | [address] | | | [place] [address] | + + + | Phone | | + + + Care Team Providers + + + + | Care Service Agent Name | Role | Phone | + + + + Unavailable | Unavailable | + + + + PROBLEMS +---------+ + + +--------+ + + | Type | Condition | ICD9-CM | GUN35-XL | Onset | Condition | SNOMED | | | | Code | Code | Dates | Status | Code | +---------+ + + +--------+ + + | Problem | Acute | C92.00 | | | Active | 46438316 | | | myeloid | | | | | | | | leukemia | | | | | | +---------+ + + +--------+ + + | Problem | Weakness | | R53.1 | | Active | 40224188 | +---------+ + + +--------+ + + | Problem | Fall | | W19.XXXA | | Active | 1355436 | +---------+ + + +--------+ + + | Problem | SUICIDAL | V62.84 | | | Active | 1501279 | | | IDEATION | | | [...] | 575.10 | | | Active | 09119377 | | | | | | | | | | | cholecysti | | | | | | | | tis | | | | | | +---------+ + + +--------+ + + | Problem | Radiculopa | | M54.17 | | Active | 1051260 | | | thy, | | | | | | | | lumbosacra | | | | | | | | l region | | | | | | +---------+ + + +--------+ + + | Problem | Tobacco | V65.42 | | | Active | 082702499 | | | abuse | | | | | | | | counseling | | | | | | +---------+ + + +--------+ + + | Problem | 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 | | | | | | | | hip | | | | | | +---------+ + + +--------+ + + | Problem | Family | V16.0 | | | Active | 754936848 | | | history of | | [...] | | N39.3 | | Active | 00480250 | | | incontinen | | | | | | | | ce | | | | | | | | (female) | | | | | | | | (male) | | | | | | +---------+ + + +--------+ + + | Problem | Facet | M46.96 | | | Active | 780758337 | | | arthropath | | | | | | | | y, lumbar | | | | | | +---------+ + + +--------+ + + | Problem | Radiculopa | | M54.12 | | Active | 55295033 | | | thy, | | | | | | | | cervical | | | | | | | | region | | | | | | +---------+ + + +--------+ + + | Problem | At high | Z91.81 | | | Active | 055011016 | | | risk for | | | | | | | | falls | | | | | | +---------+ + + +--------+ + + | Problem | Mobility | Z74.09 | | | Active | 45521775 | | | impaired | | | | | | +---------+ + + +--------+ + + | Problem | 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 | 34357004 | | | 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 | | | | | | +---------+ + + +--------+ + + | Problem | Lump of | 611.72 | | | Active | 82139185 | | | left | | | | | | | | breast | | | | | | +---------+ + + +--------+ + + | Problem | History of | V12.29 | | | Active | 1993547081 | | | goiter | | | | | [address] | +---------+ + + +--------+ + + | Problem | Obesity | | E66.9 | | Active | 600294732 | +---------+ + + +--------+ + + | Problem | Tobacco | | Z72.0 | | Active | 855805214 | | | use | | | | | | +---------+ + + +--------+ + + | Problem | Status | Z96.651 | | | Active | 8750006447 | | | post total | | | | | 02 | | | knee | | | | | | | | replacemen | | | | | | | | t, right | | | | | | +---------+ + + +--------+ + + | Problem | Elevated | | D72.829 | | Active | 560618345 | | | white | | | [...] | F33.9 | | | Active | 20639359 | | | depressive | | | [...] | G89.29 | | | Active | 05793512 | | | chronic | | | | | | | | pain | | | | | | +---------+ + + +--------+ + + | Problem | Radiculopa | | M54.16 | | Active | 597908478 | | | thy, | | | | | | | | lumbar | | | | | | | | region | | | | | | +---------+ + + +--------+ + + | Problem | COPD | | J44.9 | | Active | 09343530 | | | (chronic | | | | | | | | obstructiv | | | | | | | | e | | | | | | | | pulmonary | | | | | | | | disease) | | | | | | +---------+ + + +--------+ + + | Problem | Hypothyroi | | E03.9 | | Active | 15437266 | | | dism | | | | | | +---------+ + + +--------+ + + | Problem | Stress | N39.3 | | | Active | 67601286 | | | incontinen | | | | | | | | ce | | | | | | +---------+ + + +--------+ + + | Problem | Pain in | | M25.551 | | Active | 898206806 | | | right hip | | | | | | +---------+ + + +--------+ + + | Problem | Degenerati | M47.816 | | | Active | 83071727 | | | ve | | | [...]
--- OUTSIDE RECORDS SUMMARY | ~2017-08-27 | XMS ---
Demographics + + + | Address | [address] | | | [address] | | | [place] [address] | + + + | Preferred Language | Unknown | + + + | Marital Status | Unknown | + + + | Uatsdin Affiliation | Unknown | + + + | Race | Unknown | + + + | Ethnic Group | Unknown | + + + Author + + + | Author | [facility] | + + + | Organization | [facility] | + + + | Address | [address] | | | [place] [address] | + + + | Phone | | + + + Care Team Providers + + + + | Care Network Associate Name | Role | Phone | + + + + Unavailable | Unavailable | + + + + PROBLEMS +---------+ + + +--------+ + + | Type | Condition | ICD9-CM | POK21-VF | Onset | Condition | SNOMED | | | | Code | Code | Dates | Status | Code | +---------+ + + +--------+ + + | Problem | Acute | C92.00 | | | Active | 96565645 | | | myeloid | | | | | | | | leukemia | | | | | | +---------+ + + +--------+ + + | Problem | Weakness | | R53.1 | | Active | 14339754 | +---------+ + + +--------+ + + | Problem | Fall | | W19.XXXA | | Active | 8284773 | +---------+ + + +--------+ + + | Problem | SUICIDAL | V62.84 | | | Active | 2997602 | | | IDEATION | | | [...] | 575.10 | | | Active | 68596096 | | | | | | | | | | | cholecysti | | | | | | | | tis | | | | | | +---------+ + + +--------+ + + | Problem | Radiculopa | | M54.17 | | Active | 5829605 | | | thy, | | | | | | | | lumbosacra | | | | | | | | l region | | | | | | +---------+ + + +--------+ + + | Problem | Tobacco | V65.42 | | | Active | 064880651 | | | abuse | | | | | | | | counseling | | | | | | +---------+ + + +--------+ + + | Problem | Degenerati | M16.9 | | | Active | 497865321 | | | ve joint | | | | | | | | disease | | | | | | | | (DJD) of | | | | | | | | hip | | | | | | +---------+ + + +--------+ + + | Problem | Family | V16.0 | | | Active | 049086636 | | | history of | | [...] | | N39.3 | | Active | 10344871 | | | incontinen | | | | | | | | ce | | | | | | | | (female) | | | | | | | | (male) | | | | | | +---------+ + + +--------+ + + | Problem | Facet | M46.96 | | | Active | 726266191 | | | arthropath | | | | | | | | y, lumbar | | | | | | +---------+ + + +--------+ + + | Problem | Radiculopa | | M54.12 | | Active | 70048224 | | | thy, | | | | | | | | cervical | | | | | | | | region | | | | | | +---------+ + + +--------+ + + | Problem | At high | Z91.81 | | | Active | 122072265 | | | risk for | | | | | | | | falls | | | | | | +---------+ + + +--------+ + + | Problem | Mobility | Z74.09 | | | Active | 47142067 | | | impaired | | | | | | +---------+ + + +--------+ + + | Problem | 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 | 22124892 | | | 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 | | | | | | +---------+ + + +--------+ + + | Problem | Lump of | 611.72 | | | Active | 92524348 | | | left | | | | | | | | breast | | | | | | +---------+ + + +--------+ + + | Problem | History of | V12.29 | | | Active | 4475554 | | | goiter | | | | | | +---------+ + + +--------+ + + | Problem | Obesity | | E66.9 | | Active | 324219729 | +---------+ + + +--------+ + + | Problem | Tobacco | | Z72.0 | | Active | 209660243 | | | use | | | | | | +---------+ + + +--------+ + + | Problem | Status | Z96.651 | | | Active | 8864664743 | | | post total | | | | | 02 | | | knee | | | | | | | | replacemen | | | | | | | | t, right | | | | | | +---------+ + + +--------+ + + | Problem | Elevated | | D72.829 | | Active | 884871592 | | | white | | | [...] | F33.9 | | | Active | 22681796 | | | depressive | | | [...] | G89.29 | | | Active | 91114516 | | | chronic | | | | | | | | pain | | | | | | +---------+ + + +--------+ + + | Problem | Radiculopa | | M54.16 | | Active | 201494554 | | | thy, | | | | | | | | lumbar | | | | | | | | region | | | | | | +---------+ + + +--------+ + + | Problem | COPD | | J44.9 | | Active | 05446339 | | | (chronic | | | | | | | | obstructiv | | | | | | | | e | | | | | | | | pulmonary | | | | | | | | disease) | | | | | | +---------+ + + +--------+ + + | Problem | Hypothyroi | | E03.9 | | Active | 69575753 | | | dism | | | | | | +---------+ + + +--------+ + + | Problem | Stress | N39.3 | | | Active | 40948258 | | | incontinen | | | | | | | | ce | | | | | | +---------+ + + +--------+ + + | Problem | Pain in | | M25.551 | | Active | 937355422 | | | right hip | | | | | | +---------+ + + +--------+ + + | Problem | Degenerati | M47.816 | | | Active | 65326593 | | | ve | | | [...]
--- OUTSIDE RECORDS SUMMARY | ~2017-08-27 | XMS | Encounter Summary ---
Demographics + + + | Address | [address] | | | [place] [address] | + + + | Home Phone | | + + + | Preferred Language | Unknown | + + + | Marital Status | | + + + | Baptist Affiliation | NON | + + + [...] Team Providers + +------+ + | Care Music Publisher Name | Role | Phone | + [...] | | | | | | [place], | | | | | | [place] [address] | | | | | | [phone] | | | +--------+ + + + [...]
--- OUTSIDE RECORDS SUMMARY | ~2017-08-27 | XMS | Encounter Summary ---
Demographics + + + | Address | [address] | | | [place] [address] | + + + | Home Phone | | + + + | Preferred Language | Unknown | + + + | Marital Status | | + + + | Catholic Affiliation | Unknown | + + + | Race | Unknown | + + + | Ethnic Group | Unknown | + + + Author + + + | Author | [facility] | | | and [place] | + + + | Organization | [facility] | | | and [place] | + + + | Address | Unknown | + + + | Phone | Unavailable | + + + Support + + + + + | Name | Relationship | Address | Phone | + + + + + | Jhony Hutchison | ECON | [address] | | | | | [address] [place] | | | | | [address] | | + + + + + | Florin Pantoja | ECON | Unknown | | + + + + + Care Team Providers + +------+ + | Care Hair Specialist Name | Role | Phone | [...] | | | in relapse | [address] [place] | [facility] | | | | | (HCC) AML | [place], | [place], [place] | | | | | (acute | [place] | [address] Phone: | | | | | myeloid | [address] | [phone] | | | | | leukemia) in | Phone: | Fax: | | | | | relapse | [phone] | [phone] | | | | | (HCC) | Fax: | | | | | | Procedures | [phone] | | | | | | [place] OFFICE | | | | | | | OUTPATIENT | | | | | | | VISIT 25 | | | | | | | MINUTES | | | | | | | [address] | | | + +--------+ + + + + Encounter Details +--------+ + + + + | Date | Type | Department | Care Team | Description | +--------+ + + + + | 08/12/ | Hospital | [facility] | [facility], | AML (acute myeloid | | 2018 | Encounter | [facility] | Daniel French MD [address] | leukemia) in relapse | | | | [facility]COL[facility] CLIN[facility] [address] | [facility] | (HCC) (Primary Dx) | | | | [facility] | [place] [address] | | | | | [place] [address] | [phone] | | | | | [phone] | | | +--------+ + + + [...] m the original. Hematology/Oncology Daily Progress Note [facility] [place] Pt. Name/Age/: Jessy Hutchison 51 y.o. 1965 Med. Record Number: [id number] Date of admission: 08/12/2017 Today's Date: 08/12/17 Location: Room/bed info not found The patient's primary care provider is Saurav De Los Santos NP. Identifying Statement: Jessy Hutchison is a 51 y.o. female from [address] [place] [address] with a second relapse of acute myelogenous [...] first complete remission. 1. Presentation to the [facility] emergency room in [facility] on January 272015 with complaints of cough and odynophagia. Complete blood count was notable for a wh ite count of 117,000, hemoglobin 10.7 g/dL, platelet count of 51,000. She was emergently tr ansferred to the [facility] and [facility] [place] were bone marrow biopsy and aspiration at [facility] on February 15, 2016 confirmed acute myelogenous [...] Cycle#1 MiDaC (1500 mg/m Cytarabine) consolidation at [facility] on March 27, 2016. 4. Cycle#2 MiDaC (1500 mg/m Cytarabine) consolidation at [facility] on May 01, 2016. 5. Cycle#3 MiDaC (1200 mg/m Cytarabine) consolidation at [facility] on May 28, 2016. 6. Cycle#4 MiDaC (1000 mg/m Cytarabine ) consolidation at [facility] on June 25, 2016. 7. Bone Marrow Biopsy and Aspiration July 23, 2016 at the [facility] in [place], [place] specimen # [id number] demonstrated ongoing complete remissio n. Molecular analysis [...] Hgb 13.8, Hct 41.8%, Platelet count 10,000. QRN5225 U/L, BUN 14 mg/dL, Scr 0.82 mg/dL. 14. Admit [facility] 03/01/2017; Chest X-ray consis tent with pulmonary leukostasis. Hydroxyurea 2 grams po q 4 hours x 3 doses with no change i n WBC. 15. Transfer to [facility]; bone marrow biopsy and aspiration were performed [...] #1 of high-dose cytarabine consolidation at the [facility] on March 26, 2016. 19. Cycle #2 of cytarabine consolidation at the [facility] and [facility] [place] on Apr. 20. Cycle #3 of cytarabine consolidation at the [facility] in [place], [place], May 28, 2016. 21. Cycle #4 of cytarabine consolidation chemotherapy at the [facility] in [place], [place], June 25, 2016. 22. Repeat bone marrow biopsy and aspiration on July 23, 2016, at the [facility] in [place], [place], specimen #[id number] demonstrating ongo ing complete remission. Molecular analysis [...] tap) June 21, 2017 ([facility] [id number]); 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 myelogenous leukemia (60%); Blasts po sitive for CD117 and CD 33, negative for CD34, CD71, CD61, CD3 and PAX-5. 28. Admitted to [facility], June 28, 2017. Status post Idarubicin/Cytarabine re-induction chemoth erapy. 29. Repeat bone marrow biopsy July 29, 2017; 80% myeloblasts, discharged from [facility] on August 08, 2017, Current Assessment & Plan Jessy Hutchison returned to clinic on 08/12/2017 with her , Jhony, for follow up, six weeks after failed re-induction chemotherapy with idarubicin/cytarabine at [facility]. Review of systems includes fevers, nausea, vomiting, [...] Chronic constipation COPD (chronic obstructive pulmonary disease) ([facility]) Depression Hyperinflation of lungs Hypothyroidism Insomnia Leukemia in remission ([facility]) Posttraumatic stress disorder Right buttock pain 12/12/2016 Sciatica Thyroid disorder Past Surgical History: Procedure Laterality Date BONE MARROW BIOPSY N/A 07/23/2016 Procedure: BIOPSY / ASPIRATION BONE MARROW; Surgeon: Daniel Patterson MD; Location: [facility] SHORT STAY CARPAL TUNNEL RELEASE 2004 [facility]; [place] CHOLECYSTECTOMY 06/2013 [facility]; [place]. JOINT REPLACEMENT 01/2014 Knee replacement KNEE ARTHROPLASTY Right 01/2014 [facility]; [place]. PARTIAL HYSTERECTOMY 1989 [facility]; [place]. Social History Social History Marital status: [...] this chart may have been created with Hot Dot recognition software. Occasi onal wrong-word or sound-alike [...] | + + + | Blood | [facility] [address] | | | [place] [address] | + + + + + | [...] | + + + | Blood | [facility] [address] | | | [place] [address] | + + + Lactate Dehydrogenase (08/12/20171121) + +---------+ + | Component | Value | Ref Range | + +---------+ + | LDH TOTAL | 208 (H) | 91 - 180 U/L | + +---------+ + + + + | Specimen | Performing Laboratory | + + + | Blood | [facility] [address] | | | [place] [address] | + + + Comprehensive Metabolic Panel [...] GLOMERULAR FILTRATION | >=60 mL/min/1.73m2 | | HUNGARIAN | RATE,ESTIMATED mL/min/1.27i0Ccfp than | | | | 60 Chronic [...] + + + | Blood | [facility] [address] | | | [place] [address] | + + + CBC w/ Auto [...] | + + + | Blood | [facility] [address] | | | [place] [address] | + + + in this encounter Visit Diagnoses + + | Diagnosis | + + | 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
--- OUTSIDE RECORDS SUMMARY | ~2017-08-27 | XMS | Encounter Summary ---
Demographics + + + | Address | [address] | | | [place] [address] | + + + | Home Phone | | + + + | Preferred Language | Unknown | + + + | Marital Status | | + + + | Zoroastrian Affiliation | NON | + + + [...] Team Providers + +------+ + | Care Multi Share Program Coordinator Name | Role | Phone | + [...] | | | | | | [place], | | | | | | [place] [address] | | | | | | [phone] | | | +--------+ + + + [...]
--- OUTSIDE RECORDS SUMMARY | ~2017-08-27 | XMS | Encounter Summary ---
Demographics + + + | Address | [address] | | | [place] [address] | + + + | Home Phone | | + + + | Preferred Language | Unknown | + + + | Marital Status | | + + + | Faith Affiliation | NON | + + + | Race | White | + + + | Ethnic Group | Not or | + + + Author + + + | Author | [facility] | + + + | Organization | [facility] | + + + | [...] Providers + +------+ + | Care Senior Solutions Consultant Name | Role | Phone | + [...] | | | | | | Road [place], [place] | | | | | | [address] | | | +--------+ + + + [...]
--- OUTSIDE RECORDS SUMMARY | ~2017-08-27 | XMS | Encounter Summary ---
Demographics + + + | Address | [address] | | | [place] [address] | + + + | Home Phone | | + + + | Preferred Language | Unknown | + + + | Marital Status | | + + + | Yarsanism Affiliation | NON | + + + | Race | White | + + + | Ethnic Group | Not or | + + + Author + + + | Author | [facility] | + + + | Organization | [facility] | + + + | [...] Team Providers + +------+ + | Care Referral Manager Name | Role | Phone | + [...] [place] | | | | | | [facility] | | | | | | [place], [place] | | | | | | [address] | | | +--------+ + + + [...]
--- OUTSIDE RECORDS SUMMARY | ~2017-08-27 | XMS | Encounter Summary ---
Demographics + + + | Address | [address] | | | [place] [address] | + + + | Home Phone | | + + + | Preferred Language | Unknown | + + + | Marital Status | | + + + | Yarsanism Affiliation | NON | + + + | Race | White | + + + | Ethnic Group | Not or | + + + Author + + + | Author | [facility] | + + + | Organization | [facility] | + + + | Address [...] | | + + +---------+ + | Dva[place] | ECON | Unknown | | + + +---------+ + | Florin Pantoja | ECON | Unknown | | + + +---------+ + Care Team Providers + +------+ + | Care Home Management Supervisor Name | Role | Phone | [...] [place] | | | | | | [facility] | | | | | | [place], [place] | | | | | | [address] | | | +--------+ + + + [...]
--- OUTSIDE RECORDS SUMMARY | ~2017-08-27 | XMS | Encounter Summary ---
Demographics + + + | Address | [address] | | | [place] [address] | + + + | Home Phone [...] + + + | Author | [facility] | + + + | Organization | [facility] | + + + | Address [...] Team Providers + +------+ + | Care Allergist/Immunologist Physician Name | Role | Phone | + [...] | | | Road Mailcode: | Ave [place], [place] | | | 08/08/ | | [address] | [address] | | | 2018 | | [facility] [place], | [phone] | | | | | [place] [address] | | | | | | [phone] | Pepe Chavis MD | | | | | | [address] | | | | | | [place], | | | | | | [place] [address] | | | | | | [phone] | | | | | | | | | | | | Kay Duarte MD | | | | | | [address] | | | | | | [place], | | | | | | [place] [address] | | | | | | [phone] | | | | | | | | | | | | Angelia Thompson, | | | | | | [address] | | | | | | [address] | | | | | | [place], [place] | | | | | | [address] | | | | | | [phone] | | | | | | | [...] note may be different from the original. Formerly [facility], [facility] Discharge Summary Discharging Provider: KIMMIE BOSE [...] state Chemotherapy induced diarrhea Procedures: Hospital Course: [facility] Physician: Pepe Chavis MD Local Oncologist: Daniel [...] trying to get Sorafanib approval from her [employer], but so far they have denied all [...] have fevers within 24 hours of leaving. Meraux to be most c/w disease fevers . 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 [...] that I, or Nurse Practitioner or Physician Bariatric Coordinator working with me, had a face to face encounter with this patient on 08/06/2017 On behalf of Attending Physician: Pepe Chavis MD I am ordering and certify that the following services are medically necessary [facility] Usp Evaluate and Treat I am ordering and certify that the following services are medically necessary [facility] Physical Therapy Evaluate and Treat I certify that the patient is homebound based on the following clinical findings Post-hospi tyler weakness, decreased strength and endurance, and tires easily with minimal exertion Follow Up: Schedule the following appointment(s) when you get home Daniel Patterson MD. Go on 08/12/2017. Specialty: Hematology & Oncology Why: You have an appointment at 10:30am to see Dr. Patterson at [facility] . Further appointments will be arranged by you as necessary Contact information [facility] [address] [place] [address] SAURAV SMALL NP . Specialty: Nurse Practitioner Adult Health Contact information [facility] [address] [place] [address] Daniel Patterson MD . Specialty: Hematology & Oncology Contact information [facility] [address] [facility] [address] [place] [address] Greater than 35 minutes spent arranging discharge, medications and follow up NORIS BANEGAS [address] [facility] Mailcode: [address] [place], [place] [id number] in this encounter Discharge Instructions Cierra Adair [...] | | | | | | | ([facility]) | | | | | | + [...] for Hematologic Malignancies Attending: Pepe Chavis MD [facility] Physician: Pepe Chavis MD Local Oncologist: Daniel [...] support locally through Dr. Patterson's office in [place]. Dr. Chavis spoke with Dr. Patterson 08/07. 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 KIMMIE BOSE [facility] [address] [facility] Mailcode: [address] [place] [address] Pepe Chavis MD - 08/07/2017 12:57 PM [...] for Hematologic Malignancies Attending: Pepe Chavis MD [facility] Physician: Pepe Chavis MD Local Oncologist: Daniel [...] support locally through Dr. Patterson's office in [place]. -Pancytopenia secondary to chemotherapy: standard transfusion parameters. 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 LUKASZ HOOD [facility] [address] [facility] Mailcode: [address] [place] [address] Pepe Chavis MD - 08/05/2017 10:04 PM PDTFormatting of this note may be different from lj cary. 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 LUKASZ HOOD [facility] [address] [facility] Mailcode: [address] [place] [address] Kay Duarte MD - 08/02/2017 2:36 PM PDTFormatting of this note may be different from [facility] original. Hematologic Malignancies/Blood and marrow Transplant Attending Note I have reviewed and agree with the previously summarized HPI, PMH, FH, SH, and ROS as docum ented in the detailed note of the NICOLE provider. I also performed a history and physical examination of the patient myself and agree with [facility] documented findings and plan of care. Subjective: [...] orders for today. Kay Duarte MD, MS [facility] for Hematologic Malignancies Attending physician s total time is 35 minutes, >50% spent counseling and coordination of care. [facility] DEPARTMENT: [id number] - [facility] FACULTY MPV Place of Service: [id number] - Inpatient Date of Service: 08/02/2017 Modifiers: None Suggested CPT: 41559 - Subsequent, Detailed/High complex 35 min ######################################################### [...] for Hematologic Malignancies Attending: Kay Duarte MD [facility] Physician: Pepe Chavis MD Local Oncologist: Daniel [...] presents as a transfer from outside hospital ([facility]) where she pres ented with body [...] Pertinent Diagnostics: -BM Bx 06/21/17 ([facility] [id number]): -Results: 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 LEATHA TAPIA NP [facility] [address] [facility] Mailcode: [address] [place] [address] Kay Duarte MD - 08/01/2017 [...] orders for today. Kay Duarte MD, MS [facility] for Hematologic Malignancies Attending physician s total time is 35 minutes, >50% spent counseling and coordination of care. [facility] DEPARTMENT: [id number] - [facility] FACULTY MPV Place of Service: - Inpatient Date of Service: 08/01/2017 Modifiers: None Suggested CPT: 26343 - Subsequent, Detailed/High complex 35 min ######################################################### [...] for Hematologic Malignancies Attending: Kay Duarte MD [facility] Physician: Pepe Chavis MD Local Oncologist: Daniel [...] presents as a transfer from outside hospital ([facility]) where she pres ented with body [...] Pertinent Diagnostics: -BM Bx 06/21/17 ([facility] On[facility] [id number]): -Results: 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 LEATHA TAPIA NP [place] [id number] [place] [address] Mailcode: [address] [place] [address] Kay Duarte MD - 07/31/2017 2:40 PM PDTFormatting of this note may be different from [facility] original. 07/31/2017 Hematologic Malignancies/Blood and marrow Transplant Attending Note I have reviewed and agree with the previously summarized HPI, PMH, FH, SH, and ROS as docum ented in the detailed note of the NICOLE provider. I also performed a history and physical examination of the patient myself and agree with [facility] documented findings and plan of care. Subjective: [...] and orders for today. Kay Duarte MD, [facility] for Hematologic Malignancies Attending physician s total time is 35 minutes, >50% spent counseling and coordination of care. [facility] DEPARTMENT: [id number] - [facility] FACULTY MPRamiro Place of Service: - Inpatient Date of Service: 07/31/2017 Modifiers: None Suggested CPT: 27876 - Subsequent, Detailed/High complex 35 min ######################################################### [...] 07/29/2017 FIBRINOGEN 631 (H) 07/29/2017 Leatha Tapia, [employer] - 07/31/2017 12:28 PM PDTFormatting of this note may be different f rom the original. 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 LEATHA TAPIA NP [facility] [address] [facility] Mailcode: [facility] [place] [address] Shayna Gardiner PA - 07/30/2017 3:59 PM PDTFormatting of this note may be different fro m the original. 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 Anticipate 4-6 week hospitalization. LUKASZ HOOD [facility] [address] [facility] Mailcode: [address] [place] [address] Kay Duarte MD - 07/30/2017 1:01 PM [...] of the patient myself and agree with [facility] documented findings and plan of care. Subjective: [...] dying.Offered support and merline ntact with MARKUS rBitton to process her feelings. Today, we will continue the current level of support. Please refer to the NICOLE's note dated today for additional details on the specific plan and orders for today. Kay Duarte MD, MS [facility] for Hematologic Malignancies Attending physician s total time is 35 minutes, >50% spent counseling and coordination of care. [facility] DEPARTMENT: [id number] - [facility] FACULTY MPV Place of Service: - Inpatient Date of Service: 07/30/2017 Modifiers: None Suggested CPT: 70932 - Subsequent, Detailed/High complex 35 min ######################################################### [...] the specific plan and orders for today. Kya Duarte MD, MS [facility] for Hematologic Malignancies Attending physician s total time is 35 minutes, >50% spent counseling and coordination of care. [facility] DEPARTMENT: [id number] - [facility] FACULTY MPV Place of Service: - Inpatient Date of Service: 07/29/2017 Modifiers: None Suggested CPT: 52317 - Subsequent, Detailed/High complex 35 min ######################################################### [...] for Hematologic Malignancies Attending: Kar Aggarwal MD [facility] Physician: Pepe Chavis MD Local Oncologist: Daniel [...] presents as a transfer from outside hospital ([facility]) where she pres ented with body [...] Pertinent Diagnostics: -BM Bx 06/21/17 ([facility] [id number]): -Results: 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 Anticipate 4-6 week hospitalization LUKASZ HOOD [facility] [address] [facility] Mailcode: [address] [place] [address] Leatha Tapia NP - 07/28/2017 2:45 PM PDTFormatting of this note may be different f rom the original. 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 CODE: FULL KAR AGGARWAL MD steam press tender [facility] Center for Hematologic Malignancies [email or web address] [phone] Leatah Tapia NP - 07/27/2017 1:18 PM PDTFormatting of this note may be different f rom the original. Daily NICOLE Note - Chemotherapy Admit Center for Hematologic Malignancies Attending: Kar Aggarwal MD [facility] Physician: Pepe Chavis MD Local Oncologist: Daniel [...] Subjective: Disappointed she won't be home for [facility]. Slept in this morning. 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 Daily NICOLE Note - Chemotherapy Admit Center for Hematologic Malignancies Attending: Angelai Thompson MD [facility] Physician: Pepe Chavis MD Local Oncologist: Daniel [...] subsequently relapsed in February 2017 started on FLAG-Areltte salvage-->CR2. 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 She underwent re-induction with FLAG-Arltete; midostaurin added at day +8. A BMBx [...] inhaler 1 puff, 1 puff, inhalation, Q6H AZ N alteplase (CATHFLO ACTIVASE) injection 2 mg, 2 mg, Intracatheter, PRN aluminum-magnesium hydroxide-simethicone (MAALOX; MYLANTA) 200-200-20 mg/5 mL suspension 30 mL, 30 mL, oral, QID PRN amLODIPine (NORVASC) tablet 10 mg, 10 mg, oral, DAILY dextrose 50 % in water IV 25 mL, 25 mL, intravenous, PRN [id number]-[id number] (SPECIAL MOUTHWASH) suspension (compound) 5-10 mL, 5-10 [...] for Hematologic Malignancies Attending: Angelia Thompson MD [facility] Physician: Pepe Chavis MD Local Oncologist: Daniel [...] presents as a transfer from outside hospital ([facility]) where she pres ented with body [...] Pertinent Diagnostics: -BM Bx 06/21/17 ([facility] On[facility] [id number]): -Results: 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 Went to [employer] yesterday, was nice to be up on [...] inhaler 1 puff, 1 puff, inhalation, Q6H AZ N alteplase (CATHFLO ACTIVASE) injection 2 mg, 2 mg, Intracatheter, PRN aluminum-magnesium hydroxide-simethicone (MAALOX; MYLANTA) 200-200-20 mg/5 mL suspension 30 mL, 30 mL, oral, QID PRN amLODIPine (NORVASC) tablet 10 mg, 10 mg, oral, DAILY dextrose 50 % in water IV 25 mL, 25 mL, intravenous, PRN [id number] (SPECIAL MOUTHWASH) suspension (compound) 5-10 mL, 5-10 [...] mg, oral, HS PRN Sharif Felisha Castaneda, TECHNOLOGY INTEGRATION SPECIALIST - 07/24/2017 4:08 PM PDTName:Rhea Hutchison Date: td : 1965 Problem Identified: housing [...] and assistance as needed. FELISHA Castaneda SHARIF, TECHNOLOGY INTEGRATION SPECIALISTHealdsburg [facility] [address] [facility] Mailcode: [facility] [place] [address] Leatha Tapia NP - 07/24/2017 12:53 PM PDTFormatting of this note may be different f rom the original. 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 [...] Anticipate 4-6 week hospitalization LEATHA TAPIA NP [facility] [address] [facility] Mailcode: [address] [place] [address] Angelia Thompson MD - 07/24/2017 10:13 AM [...] inhaler 1 puff, 1 puff, inhalation, Q6H AZ N alteplase (CATHFLO ACTIVASE) injection 2 mg, 2 mg, Intracatheter, PRN aluminum-magnesium hydroxide-simethicone (MAALOX; MYLANTA) 200-200-20 mg/5 mL suspension 30 mL, 30 mL, oral, QID PRN amLODIPine (NORVASC) tablet 10 mg, 10 mg, oral, DAILY dextrose 50 % in water IV 25 mL, 25 mL, intravenous, PRN [id number]-syykyjlwe-NSWXZV (SPECIAL MOUTHWASH) suspension (compound) 5-10 mL, 5-10 [...] for Hematologic Malignancies Attending: Angelia Thompson MD [facility] Physician: Pepe Chavis MD Local Oncologist: Daniel [...] presents as a transfer from outside hospital ([facility]) where she pres ented with body [...] Pertinent Diagnostics: -BM Bx 06/21/17 ([facility] [id number]): -Results: 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 [...] 4-6 week hospitalization LUKASZ HOOD [place] [address] [facility] Mailcode: [facility] [place] [address] Angelia Thompson MD - 07/23/2017 9:32 AM [...] inhaler 1 puff, 1 puff, inhalation, Q6H AZ N alteplase (CATHFLO ACTIVASE) injection 2 mg, 2 mg, Intracatheter, PRN aluminum-magnesium hydroxide-simethicone (MAALOX; MYLANTA) 200-200-20 mg/5 mL suspension 30 mL, 30 mL, oral, QID PRN amLODIPine (NORVASC) tablet 10 mg, 10 mg, oral, DAILY dextrose 50 % in water IV 25 mL, 25 mL, intravenous, PRN [id number]-rsuwezxsb-VBBOVC (SPECIAL MOUTHWASH) suspension (compound) 5-10 mL, 5-10 [...] for Hematologic Malignancies Attending: Angelia Thompson MD [facility] Physician: Pepe Chavis MD Local Oncologist: Daniel [...] presents as a transfer from outside hospital ([facility]) where she pres ented with body [...] Pertinent Diagnostics: -BM Bx 06/21/17 ([facility] On[facility] [id number]): -Results: 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 Anticipate 4-6 week hospitalization LUKASZ HOOD [facility] [address] [facility] Mailcode: [address] [place] [address] Angelia Thompson MD - 07/22/2017 9:08 AM [...] therapy planned. [facility] count recovery. She completed therapy [...] inhaler 1 puff, 1 puff, inhalation, Q6H AZ N alteplase (CATHFLO ACTIVASE) injection 2 mg, 2 mg, Intracatheter, PRN aluminum-magnesium hydroxide-simethicone (MAALOX; MYLANTA) 200-200-20 mg/5 mL suspension 30 mL, 30 mL, oral, QID PRN amLODIPine (NORVASC) tablet 10 mg, 10 mg, oral, DAILY dextrose 50 % in water IV 25 mL, 25 mL, intravenous, PRN [id number]-exqywjnih-[id number] (SPECIAL MOUTHWASH) suspension (compound) 5-10 mL, 5-10 [...] for Hematologic Malignancies Attending: Angelia Thompson MD [facility] Physician: Pepe Chavis MD Local Oncologist: Daniel [...] Requires potassium, phos and magnesium today. 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 Anticipate 4-6 week hospitalization LUKASZ HOOD [facility] [address] [facility] Mailcode: [address] [place] [address] Angelia Thompson MD - 07/21/2017 10:00 AM [...] inhaler 1 puff, 1 puff, inhalation, Q6H AZ N alteplase (CATHFLO ACTIVASE) injection 2 mg, 2 mg, Intracatheter, PRN aluminum-magnesium hydroxide-simethicone (MAALOX; MYLANTA) 200-200-20 mg/5 mL suspension 30 mL, 30 mL, oral, QID PRN amLODIPine (NORVASC) tablet 10 mg, 10 mg, oral, DAILY dextrose 50 % in water IV 25 mL, 25 mL, intravenous, PRN mveearwqljXZRLH-pcbrhihkx-CQDXNI (SPECIAL MOUTHWASH) suspension (compound) 5-10 mL, 5-10 [...] for Hematologic Malignancies Attending: Kay Duarte MD [facility] Physician: Pepe Chavis MD Local Oncologist: Daniel [...] subsequently relapsed in February 2017 started on FLAG-Ralette salvage-->CR2. 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 Anticipate 4-6 week hospitalization LUKASZ HOOD [facility] [address] [facility] Mailcode: [address] [place] [address] Angelia Thompson MD - 07/20/2017 9:25 AM [...] inhaler 1 puff, 1 puff, inhalation, Q6H [place] N alteplase (CATHFLO ACTIVASE) injection 2 mg, 2 mg, Intracatheter, PRN aluminum-magnesium hydroxide-simethicone (MAALOX; MYLANTA) 200-200-20 mg/5 mL suspension 30 mL, 30 mL, oral, QID PRN amLODIPine (NORVASC) tablet 10 mg, 10 mg, oral, DAILY dextrose 50 % in water IV 25 mL, 25 mL, intravenous, PRN ulbpmtkifwUXHKS-zveymaspk-GVDYJH (SPECIAL MOUTHWASH) suspension (compound) 5-10 mL, 5-10 [...] for Hematologic Malignancies Attending: Kay Duarte MD [facility] Physician: Pepe Chavis MD Local Oncologist: Daniel [...] presents as a transfer from outside hospital ([facility]) where she pres ented with body [...] Pertinent Diagnostics: -BM Bx 06/21/17 ([facility] [id number]): -Results: 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 07/19/2017 Hematologic Malignancies/Blood and marrow Transplant Attending Note I have reviewed and agree with the previously summarized HPI, PMH, FH, SH, and ROS as docum ented in the detailed note of the NICOLE provider. I also performed a history and physical examination of the patient myself and agree with [facility] documented findings and plan of care. Subjective: [...] orders for today. Kay Duarte MD, MS [facility] for Hematologic Malignancies Attending physician s total time is 35 minutes, >50% spent counseling and coordination of care. [facility] DEPARTMENT: [id number] - [facility] FACULTY MPV Place of Service: [id number] - Inpatient Date of Service: 07/19/2017 Modifiers: None Suggested CPT: 71046 - Subsequent, Detailed/High complex 35 min ######################################################### [...] of this note may be different from [facility] original. 07/18/2017 Hematologic Malignancies/Blood and marrow Transplant Attending Note I have reviewed and agree with the previously summarized HPI, PMH, FH, SH, and ROS as docum ented in the detailed note of the NICOLE provider. I also performed a history and physical examination of the patient myself and agree with [facility] documented findings and plan of care. Subjective: [...] orders for today. Kay Duarte MD, MS [facility] for Hematologic Malignancies Attending physician s total time is 35 minutes, >50% spent counseling and coordination of care. [facility] DEPARTMENT: [phone] - [facility] FACULT[facility] MPV Place of Service: - Inpatient Date of Service: 07/18/2017 Modifiers: None Suggested CPT: 07578 - Subsequent, Detailed/High complex 35 min ######################################################### [...] for Hematologic Malignancies Attending: Kay Duarte MD [facility] Physician: Pepe Chavis MD Local Oncologist: Daniel [...] presents as a transfer from outside hospital ([facility]) where she pres ented with body [...] Pertinent Diagnostics: -BM Bx 06/21/17 ([facility] [id number]): -Results: 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 [...] Anticipate 4-6 week hospitalization Emily Galdamez PA-C [facility] [address] [facility] Mailcode: [address]pv[address] [place] [address] Emily Galdamez PA-C - 07/17/2017 2:24 PM PDTFormatting of this note may be different from the original. Daily NICOLE Note - Chemotherapy Admit Center for Hematologic Malignancies Attending: Kay Duarte MD [facility] Physician: Pepe Chavis MD Local Oncologist: Daniel [...] Already ate breakfast and walked the halls [facility]. Objective: Last Vitals: BP 140/88 | Pulse [...] presents as a transfer from outside hospital ([facility]) where she pres ented with body [...] Pertinent Diagnostics: -BM Bx 06/21/17 ([facility] [id number]): -Results: 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 [...] Anticipate 4-6 week hospitalization Emily Galdamez PA-C [facility] [address] [facility] Mailcode: [address] [place] [address] Kay Duarte MD - 07/17/2017 11:10 AM PDTFormatting of this note may be different from [facility] original. 07/17/2017 Hematologic Malignancies/Blood and marrow Transplant Attending Note I have reviewed and agree with the previously summarized HPI, PMH, FH, SH, and ROS as docum ented in the detailed note of the NICOLE provider. I also performed a history and physical examination of the patient myself and agree with [facility] documented findings and plan of care. Subjective: [...] orders for today. Kay Duarte MD, MS [facility] for Hematologic Malignancies Attending physician s total time is 35 minutes, >50% spent counseling and coordination of care. [facility] DEPARTMENT: [phone] - [facility]ACULT[facility] MPV Place of Service: - Inpatient Date of Service: 07/17/2017 Modifiers: None Suggested CPT: 55969 - Subsequent, Detailed/High complex 35 min ######################################################### [...] orders for today. Kay Duarte MD, MS [facility] for Hematologic Malignancies Attending physician s total time is 35 minutes, >50% spent counseling and coordination of care. [facility] DEPARTMENT: [phone] - [facility]AC[facility] MPV Place of Service: - Inpatient Date of Service: 07/16/2017 Modifiers: None Suggested CPT: 18356 - Subsequent, Detailed/High complex 35 min ######################################################### [...] for Hematologic Malignancies Attending: Allyson Duarte MD [facility] Physician: Pepe Chavis MD Local Oncologist: Daniel [...] presents as a transfer from outside hospital ([facility]) where she pres ented with body [...] Pertinent Diagnostics: -BM Bx 06/21/17 ([facility] [id number]): -Results: 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 [...] 4-6 week hospitalization Ellis Mejia PA-C, MPAS [facility] [address] [facility] Mailcode: [address] [place] [address] Kay Duarte MD - 07/15/2017 3:34 PM PDTFormatting of this note may be different from [facility] original. 07/15/2017 Hematologic Malignancies/Blood and marrow Transplant Attending Note I have reviewed and agree with the previously summarized HPI, PMH, FH, SH, and ROS as docum ented in the detailed note of NICOLE provider. I also performed a history and physical examination of the patient myself and agree with [facility] documented findings and plan of care. Subjective: [...] orders for today. Kay Duarte MD, MS [facility] for Hematologic Malignancies Attending physician s total time is 35 minutes, >50% spent counseling and coordination of care. [facility] DEPARTMENT: [phone] - [facility] FACULT[facility] MPV Place of Service: - Inpatient Date of Service: 07/15/2017 Modifiers: None Suggested CPT: 69313 - Subsequent, Detailed/High complex 35 min ######################################################### [...] 07/15/2017 FIBRINOGEN 503 (H) 07/15/2017 Ellis Mejia PA-C,[facility] - 07/15/2017 10:11 AM PDTFormatting of this note may be different f rom the original. Daily NICOLE Note - Chemotherapy Admit Center for Hematologic Malignancies Attending: Allyson Montero [facility] Physician: Pepe Chavis MD Local Oncologist: Daniel [...] presents as a transfer from outside hospital ([facility]) where she pres ented with body [...] Pertinent Diagnostics: -BM Bx 06/21/17 ([facility] [id number]): -Results: 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 [...] Anticipate 4-6 week hospitalization Ellis Mejia PA-C, [facility] [address] Mailcode: [facility] [place] [address] Emily Galdamez PA-C - 07/14/2017 12:02 PM PDTFormatting of this note may be different from the original. Daily NICOLE Note - Chemotherapy Admit Center for Hematologic Malignancies Attending: Pepe Chavis MD [facility] Physician: Pepe Chavis MD Local Oncologist: Daniel [...] presents as a transfer from outside hospital ([facility]) where she pres ented with body [...] Pertinent Diagnostics: -BM Bx 06/21/17 ([facility] [id number]): -Results: 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 [...] chemo -Monitor daily labs -Consider switching to Marei if continues to increase #SWAPNIL, no emesis: [...] Anticipate 4-6 week hospitalization Emily Galdamez PA-C [address] [facility] Mailcode: [address] [place] [address] Pepe Chavis MD - 07/14/2017 10:49 AM PDTFormatting of this note may be different from th e original. 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 Was in CR2 and then relapsed. June 21, 2017 ([facility] [id number]); Hypercellular marrow (90%) with relap sed acute myelogenous leukemia (60%); Blasts positive for CD117 and CD 33, negative for CD34 , CD71, CD61, CD3 and PAX-5. - remains FLT3 ITD by [facility] (very elevated allelic burden, full panel pending) [...] for Hematologic Malignancies Attending: Kay Duarte MD [facility] Physician: Pepe Chavis MD Local Oncologist: Daniel [...] presents as a transfer from outside hospital ([facility]) where she pres ented with body [...] Pertinent Diagnostics: -BM Bx 06/21/17 ([facility] [id number]): -Results: 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 Emily Galdamez PA-C [facility] [address] [facility] Mailcode: [facility] [place], [place] [id number] Kay Duarte MD - 07/13/2017 11:21 AM PDTFormatting of this note may be different from e original. 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 Was in CR2 and then relapsed. June 21, 2017 ([facility] [id number]); Hypercellular marrow (90%) with relap sed acute myelogenous leukemia (60%); Blasts positive for CD117 and CD 33, negative for CD34 , CD71, CD61, CD3 and PAX-5. - remains FLT3 ITD by [facility] (full panel pending) I rounded today in [...] including goals of care and treatment expectations. [facility] for Hematologic Malignancies [facility] [place] Emily Galdamez PA-C - 07/12/2017 1:23 PM PDTFormatting of this note may be different from the original. Daily NICOLE Note - Chemotherapy Admit Center for Hematologic Malignancies Attending: Kar Aggarwal MD [facility] Physician: Pepe Chavis MD Local Oncologist: Daniel [...] presents as a transfer from outside hospital ([facility]) where she pres ented with body [...] Pertinent Diagnostics: -BM Bx 06/21/17 ([facility] [id number]): -Results: 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 Emily Galdamez PA-C [address] [facility] Mailcode: [address] [place] [address] Kar Aggarwal MD - 07/12/2017 11:00 AM PDTFormatting of this note may be different fro m the original. 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 Was in CR2 and then relapsed. June 21, 2017 ([facility] [id number]); Hypercellular marrow (90%) with relap sed acute myelogenous leukemia (60%); Blasts positive for CD117 and CD 33, negative for CD34 , CD71, CD61, CD3 and PAX-5. - remains FLT3 ITD by [facility] (full panel pending) I rounded today in [...] care and treatment expectations. KAR AGGARWAL MD steam press tender [facility] Center for Hematologic Malignancies [facility] [place] [email or web address] [phone] Galdamez PA-C - 07/11/2017 12:55 PM PDTFormatting of this note may be different from the original. Daily NICOLE Note - Chemotherapy Admit Center for Hematologic Malignancies Attending: Kar Aggarwal MD [facility] Physician: Pepe Chavis MD Local Oncologist: Daniel [...] presents as a transfer from outside hospital ([facility]) where she pres ented with body [...] Pertinent Diagnostics: -BM Bx 06/21/17 ([facility] [id number]): -Results: 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 Emily Galdamez PA-C [facility] [address] [facility] Mailcode: [address] [place] [address] Kar Aggarwal MD - 07/11/2017 10:55 AM PDTFormatting of this note may be different fro m the original. 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 Was in CR2 and then relapsed. June 21, 2017 ([facility] [id number]); Hypercellular marrow (90%) with relap sed acute myelogenous leukemia (60%); Blasts positive for CD117 and CD 33, negative for CD34 , CD71, CD61, CD3 and PAX-5. - remains FLT3 ITD by [facility] (full panel pending) I rounded today in [...] care and treatment expectations. KAR AGGARWAL MD steam press tender [facility] Center for Hematologic Malignancies [facility] [place] [email or web address] [phone], KimberlyVESTA - 07/10/2017 4:25 PM PDTFormatting of this note may be di fferent from the original. Daily NICOLE Note - Chemotherapy Admit Center for Hematologic Malignancies Attending: Kar Aggarwal MD [facility] Physician: Pepe Chavis MD Local Oncologist: Daniel [...] presents as a transfer from outside hospital ([facility]) where she pres ented with body [...] Pertinent Diagnostics: -BM Bx 06/21/17 ([facility] [id number]): -Results: 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 [...] days. -Sorafenib 400 mg daily (sent to [employer], awaiting auth) -Chemo Day: 10 Patient is [...] 4-6 week hospitalization. Malena Foster, VESTA KIDD [facility] [address] [facility] Mailcode: [facility] [place] [address] Kar Aggarwal MD - 07/10/2017 11:19 AM PDTFormatting of this note may be different fro m the original. 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 Was in CR2 and then relapsed. June 21, 2017 ([facility] [id number]); Hypercellular marrow (90%) with relap sed acute myelogenous leukemia (60%); Blasts positive for CD117 and CD 33, negative for CD34 , CD71, CD61, CD3 and PAX-5. - remains FLT3 ITD by [facility] (full panel pending) I rounded today in [...] care and treatment expectations. KAR AGGARWAL MD steam press tender [facility] Center for Hematologic Malignancies [facility] [place] [email or web address] [phone] Foster ANP - 07/09/2017 3:15 PM PDTFormatting of this note may be di fferent from the original. Daily NICOLE Note - Chemotherapy Admit Center for Hematologic Malignancies Attending: Kar Aggarwal MD [facility] Physician: Pepe Chavis MD Local Oncologist: Daniel [...] presents as a transfer from outside hospital ([facility]) where she pres ented with body [...] Pertinent Diagnostics: -BM Bx 06/21/17 ([facility] [id number]): -Results: 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 [...] days. -Sorafenib 400 mg daily (sent to [employer], awaiting auth) -Chemo Day: 9 Patient is [...] week hospitalization. Malena Foster, VESTA FOSTER, VESTA [facility] [address] [facility] Mailcode: [address] [place], [place] [id number] Kar Aggarwal MD - 07/09/2017 10:30 AM PDTFormatting of this note may be different fro m the original. 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 Was in CR2 and then relapsed. June 21, 2017 ([facility] [id number]); Hypercellular marrow (90%) with relap sed acute myelogenous leukemia (60%); Blasts positive for CD117 and CD 33, negative for CD34 , CD71, CD61, CD3 and PAX-5. - remains FLT3 ITD by [facility] (full panel pending) I rounded today in [...] care and treatment expectations. KAR AGGARWAL MD steam press tender [facility] Center for Hematologic Malignancies [facility] [place] [email or web address] [phone] Foster ANP - 07/08/2017 6:40 PM PDTFormatting of this note may be di fferent from the original. Daily NICOLE Note - Chemotherapy Admit Center for Hematologic Malignancies Attending: Kar Aggarwal MD [facility] Physician: Pepe Chvais MD Local Oncologist: Daniel Patterson MD PCP: [...] presents as a transfer from outside hospital ([facility]) where she pres ented with body [...] Pertinent Diagnostics: -BM Bx 06/21/17 ([facility] [id number]): -Results: 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 [...] days. -Sorafenib 400 mg daily (sent to [employer], awaiting auth) -Chemo Day: 8 Patient is [...] Anticipate 4-6 week hospitalization. VESTA Sexton ANP [facility] [address] [facility] Mailcode: v14 [place] [address] Kar Aggarwal MD - 07/08/2017 4:09 PM PDTFormatting of this note may be different fro m the original. 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 Was in CR2 and then relapsed. June 21, 2017 ([facility] [id number]); Hypercellular marrow (90%) with relap sed acute myelogenous leukemia (60%); Blasts positive for CD117 and CD 33, negative for CD34 , CD71, CD61, CD3 and PAX-5. - remains FLT3 ITD by [facility] (full panel pending) I rounded today in [...] the assessment and plan. KAR AGGARWAL MD steam press tender [facility] Center for Hematologic Malignancies [facility] [place] [email or web address] [phone], Stephen, MD - 07/07/2017 2:01 PM PDTFormatting of this note may be d ifferent from the original. 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 Was in CR2 and then relapsed. June 21, 2017 ([facility] [id number]); Hypercellular marrow (90%) with relap sed acute myelogenous leukemia (60%); Blasts positive for CD117 and CD 33, negative for CD34 , CD71, CD61, CD3 and PAX-5. - remains FLT3 ITD by [facility] (full panel pending) I rounded today in [...] the assessment and plan. KAR AGGARWAL MD steam press tender [facility] Center for Hematologic Malignancies [facility] [place] [email or web address] [phone], Kaitlyn M, [employer] - 07/07/2017 1:26 PM PDTFormatting of this note may be different from the original. Daily NICOLE Note - Chemotherapy Admit Center for Hematologic Malignancies Attending: Kar Aggarwal MD [facility] Physician: Pepe Chavis MD Local Oncologist: Daniel [...] presents as a transfer from outside hospital ([facility]) where she pres ented with body [...] Pertinent Diagnostics: -BM Bx 06/21/17 ([facility] [id number]): -Results: 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 [...] days. -Sorafenib 400 mg daily (sent to [employer], awaiting auth) -Chemo Day: 7 Patient is [...] Anticipate 4-6 week hospitalization. LEATHA TAPIA NP [facility] [address] [facility] Mailcode: [facility] [place] [address] Kar Aggarwal MD - 07/06/2017 3:09 PM PSTFormatting of this note may be different marlee lazar the original. 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 Was in CR2 and then relapsed. June 21, 2017 ([facility] [id number]); Hypercellular marrow (90%) with relap sed acute myelogenous leukemia (60%); Blasts positive for CD117 and CD 33, negative for CD34 , CD71, CD61, CD3 and PAX-5. - remains FLT3 ITD by [facility] (full panel pending) I rounded today in [...] the assessment and plan. KAR AGGARWAL MD steam press tender [facility] for Hematologic Malignancies [facility] [place] [email or web address] [phone] Tapia NP - 07/06/2017 9:24 AM PSTFormatting of this note may be different from the original. Daily NICOLE Note - Chemotherapy Admit Center for Hematologic Malignancies Attending: Kar Aggarwal MD [facility] Physician: Pepe Chavis MD Local Oncologist: Daniel [...] presents as a transfer from outside hospital ([facility]) where she pres ented with body [...] Pertinent Diagnostics: -BM Bx 06/21/17 ([facility] [id number]): -Results: 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 LEATHA TAPIA NP [place] [id number] [facility] Mailcode: [facility] [place] [address] Pepe Chavis MD - 07/05/2017 6:28 PM PSTFormatting of this note may be different from e original. 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 Was in CR2 and then relapsed. Would like to pursue chemotherapy. June 21, 2017 ([facility] [id number]); Hypercellular marrow (90%) with relap sed acute [...] this evening - remains FLT3 ITD by [facility] (full panel pending) - zosyn for proctitis/pain [...] for Hematologic Malignancies Attending: Pepe Chavis MD [facility] Physician: Pepe Chavis MD Local Oncologist: Daniel [...] presents as a transfer from outside hospital ([facility]) where she pres ented with body [...] Pertinent Diagnostics: -BM Bx 06/21/17 ([facility] [id number]): -Results: 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 Anticipate 4-6 week hospitalization. ISIDRO Rod [address] [facility] Mailcode: [facility] [place] [address] Wrhiyxyx, Reeshma S, FNP - 07/04/2017 1:06 PM PSTFormatting of this note may b e different from the original. Daily NICOLE Note - Chemotherapy Admit Center for Hematologic Malignancies Attending: Pepe Chavis MD [facility] Physician: Pepe Chavis MD Local Oncologist: Daniel [...] presents as a transfer from outside hospital ([facility]) where she pres ented with body [...] Pertinent Diagnostics: -BM Bx 06/21/17 ([facility] [id number]): -Results: 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 [...] and prognostic feature. [facility] #Pancytopenia: -See supportive care #Coagulopathy: with [...] hospitalization. ISIDRO Rod [facility] [address] [facility] Mailcode: [address] [place] [address] Pepe Chavis MD - 07/04/2017 11:43 AM PSTFormatting of this note may be diffe rent from the original. 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 Was in CR2 and then relapsed. Would like to pursue chemotherapy. June 21, 2017 ([facility] [id number]); Hypercellular marrow (90%) with relap sed acute [...] arlette + cytarabine + sorefenib (appealed to [employer]) - WBC now <1 with IV chemo [...] blood counts, transfusions and plan. Sarah Katz, WARP SPOOLER - 07/03/2017 3:35 PM PSTFormatting of this note may be different from the original. Daily NICOLE Note - Chemotherapy Admit [facility] Attending: Pepe Chavis MD [facility] Physician: Pepe Chavis MD Local Oncologist: Daniel [...] presents as a transfer from outside hospital ([facility]) where she pres ented with body [...] Pertinent Diagnostics: -BM Bx 06/21/17 ([facility] [id number]): -Results: 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 [...] and prognostic feature. Brother is a m [facility]. #Pancytopenia: -See supportive care #Coagulopathy: with prolonged [...] TBD. Anticipate 4-6 week hospitalization. ISIDRO Rod [facility] 14K [address] [facility] Mailcode: [facility] [place] [address] Rcprf, Elie A, MD - 07/03/2017 11:40 AM PSTFormatting of this note may be diffe rent from the original. 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 Was in CR2 and then relapsed. Would like to pursue chemotherapy. June 21, 2017 ([facility] [id number]); Hypercellular marrow (90%) with relap sed acute [...] arlette + cytarabine + sorefenib (appealed to [employer]) - WBC dropping rapidly with IV chemo [...] WBC, edema, fluids and plan. Clarke Aguirre, WARP SPOOLER - 07/02/2017 2:08 PM PSTFormatting of this note may be different fro m the original. Daily NICOLE Note - Chemotherapy Admit [facility] Attending: Pepe Chavis MD [facility] Physician: Pepe Chavis MD Local Oncologist: Daniel [...] presents as a transfer from outside hospital ([facility]) where she pres ented with body [...] Pertinent Diagnostics: -BM Bx 06/21/17 ([facility] [id number]): -Results: 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 [...] and prognostic feature. [facility] #Leukocytosis, Anemia, Thrombocytopenia: -See supportive care [...] TBD. Anticipate 4-6 week hospitalization. ISIDRO LLANES [facility] [address]K [address] [facility] Mailcode: [address] [place] [address] Pepe Chavis MD - 07/02/2017 10:50 AM PSTFormatting of this note may be different from jl cary. 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 Was in CR2 and then relapsed. Would like to pursue chemotherapy. June 21, 2017 ([facility] [id number]); Hypercellular marrow (90%) with relap sed acute [...] infx risk, abx, and plan. Clarke Aguirre, W[employer] SPOOLER - 07/01/2017 11:16 AM PSTFormatting of this note may be different fro m the original. Daily NICOLE Note - Chemotherapy Admit [facility] Attending: Pepe Chavis MD [facility] Physician: Pepe Chavis MD Local Oncologist: Daniel Patterson MD PCP: Saurav Small NP Date of Admission: 06/28/17 Hematologic Malignancy: AML Reason for admission: Relapsed AML, transfer from [facility] ID: 51 yo woman with relapsed AML, [...] L>R. 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 -Bowel regimen: [...] presents as a transfer from outside hospital ([facility]) where she pres ented with body [...] Pertinent Diagnostics: -BM Bx 06/21/17 ([facility] [id number]): -Results: 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 [...] and prognostic feature. [facility] #Leukocytosis, Anemia, Thrombocytopenia: -See supportive care [...] TBD. Anticipate 4-6 week hospitalization. ISIDRO LLANES [address] Mailcode: [facility] [place] [address] Pepe Chavis MD - 07/01/2017 8:56 AM PSTFormatting of this note may be different from th e original. 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 Was in CR2 and then relapsed. Would like to pursue chemotherapy. June 21, 2017 ([facility] [id number]); Hypercellular marrow (90%) with relap sed acute [...] side effects, risks/benefits and plan. Sarah Katz, [facility] - 06/30/2017 1:13 PM PSTFormatting of this note may be different from the original. Daily NICOLE Note - Chemotherapy Admit [facility] Attending: Pepe Chavis MD [facility] Physician: Pepe Chavis MD Local Oncologist: Daniel [...] L>R. 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 -Started miralax, [...] today as a transfer from outside hospital ([facility]) where sh olivia presented with body [...] Pertinent Diagnostics: -BM Bx 06/21/17 ([facility] [id number]) -Results: 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 [...] L>R. 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 -Started miralax, [...] TBD. Anticipate 4-6 week hospitalization. ISIDRO Arvizu [address] [facility] Mailcode: [facility] [place] [address] Pepe Chavis MD - 06/30/2017 9:26 AM PSTFormatting of this note may be different from jl baker original. 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 Was in CR2 and then relapsed. Would like to pursue chemotherapy. June 21, 2017 ([facility] [id number]); Hypercellular marrow (90%) with relap sed acute [...] paged twice. Awaiting response. Hand off to [employer] i[employer] city[employer]. [employer] العراقي to monitor closely.Nathaniel Steele - [...] | | | | | | type ([facility]) | | | | | | Immunocompromised | | | | | | state ([facility]) | | | | | | Pneumonia with the | | | | | | fungal infection | | | | | | aspergillosis ([facility]) | | | | | | Abnormal [...] + + | Blood - Antecubital | [facility]OR[facility] SERVICES, CORE [address] | | - right | [place], [place] [address] | + + + CULTURE, BLOOD BACTI [...] ------ CULTURE, BLOOD | | BACTI & Y...[[id number]] Final | | result Please view results [...] | + + + | Blood | [facility], CORE [address] | | | [place] [address] | + + + CULTURE, BLOOD BACTI [...] ------ CULTURE, BLOOD | | BACTI & Y...[[id number]] Final | | result Please view results [...] | + + + | Blood | [facility], CORE [address] [facility] | | | [place] [address] | + + + + + | [...] | + + + | Blood | [facility] LABORATORY [facility], CORE [address] [facility] | | | [place] [address] | + + + + + | [...] | + + + | Blood | [facility], CORE [address] [place] [address] | | | [place], [place] [address] | + + + URIC ACID, PLASMA (08/07/2017 11:57 PM) + +---------+ + | Component | Value | Ref Range | + +---------+ + | URIC ACID, PLASMA | 1.0 (L) | 2.5 - 6.2 mg/dL | | (LAB) | | | + +---------+ + + + + | Specimen | Performing Laboratory | + + + | Blood | [facility], CORE [address] [place] [address] | | | [place] [address] | + + + PHOSPHORUS, PLASMA (08/07/2017 11:57 PM) + +-------+ + | Component | Value | Ref Range | + +-------+ + | PHOSPHORUS, PLASMA | 2.7 | 2.4 - 4.7 mg/dL | | (LAB) | | | + +-------+ + + + + | Specimen | Performing Laboratory | + + + | Blood | [facility], CORE [address] [facility] | | | [place] [address] | + + + MAGNESIUM, PLASMA (08/07/2017 11:57 PM) + +-------+ + | Component | Value | Ref Range | + +-------+ + | MAGNESIUM,PLASMA | 1.8 | 1.6 - 2.6 mg/dL | + +-------+ + + + + | Specimen | Performing Laboratory | + + + | Blood | [facility], CORE [address] [facility] | | | [place] [address] | + + + + + | [...] | ------ CBC AND AUTO | | DIFF[[id number]] Abnormal Final | | result Please view [...] | >60 | >60 mL/min | | VINCENTIAN | | | + + + + | EGFR NON | >60 | >60 mL/min | | -VINCENTIAN | | | + + + + [...] + + + | Blood | [facility], CORE [address] | | | [place] [address] | + + + + + | [...] + + + | Blood | [facility] SERVICES, TRANSFUSION MEDICINE [address] [facility] | | | [place] [address] | + + + ABO & RH [...] | + + + | Blood | [facility], TRANSFUSION MEDICINE [address] [facility] | | | [place] [address] | + + + TYPE AND SCREEN [...] | ------ ABO & RH | | TYPE[[id number]] F | | inal result ANTIBODY | | SCREEN[[id number]] Fin | | al result Please view [...] + + | PRODUCT UNIT # | [id number] | | + + + + | UNIT ABO | O | | + + + + | UNIT RH | POS | | + + + + | STATUS OF UNIT | Presumed Transfused | | + + + + | EXPIRATION DATE | [id number] | | + + + + | BLOOD TYPE BARCODE | 5100 | | + + + + | BLOOD PRODUCT CODE | [id number] | | + + + + + + + | Specimen | Performing Laboratory | + + + | | [facility], TRANSFUSION MEDICINE [address] | | | [place] [address] | + + + CBC AND AUTO [...] | + + + | Blood | [facility], CORE [address] [place] [address] | | | [place] [address] | + + + PHOSPHORUS, PLASMA (08/06/2017 11:30 PM) + +---------+ + | Component | Value | Ref Range | + +---------+ + | PHOSPHORUS, PLASMA | 2.1 (L) | 2.4 - 4.7 mg/dL | | (LAB) | | | + +---------+ + + + + | Specimen | Performing Laboratory | + + + | Blood | [facility], CORE [address] [place] [address] | | | [place] [address] | + + + MAGNESIUM, PLASMA (08/06/2017 11:30 PM) + +-------+ + | Component | Value | Ref Range | + +-------+ + | MAGNESIUM,PLASMA | 1.8 | 1.6 - 2.6 mg/dL | + +-------+ + + + + | Specimen | Performing Laboratory | + + + | Blood | [facility], CORE [address] [facility] | | | [place] [address] | + + + + + | [...] | ------ CBC AND AUTO | | DIFF[[id number]] Abnormal Final | | result Please view [...] | >60 | >60 mL/min | | VINCENTIAN | | | + + + + | EGFR NON | >60 | >60 mL/min | | -VINCENTIAN | | | + + + + [...] | + + + | Blood | [facility], CORE [address] [facility] | | | [place] [address] | + + + + + | [...] + + + | Blood | [facility], CORE [address] [place] [address] | | | [place] [address] | + + + PHOSPHORUS, PLASMA (08/05/2017 11:59 PM) + +---------+ + | Component | Value | Ref Range | + +---------+ + | PHOSPHORUS, PLASMA | 2.2 (L) | 2.4 - 4.7 mg/dL | | (LAB) | | | + +---------+ + + + + | Specimen | Performing Laboratory | + + + | Blood | [facility], CORE [address] [facility] | | | [place] [address] | + + + MAGNESIUM, PLASMA (08/05/2017 11:59 PM) + +-------+ + | Component | Value | Ref Range | + +-------+ + | MAGNESIUM,PLASMA | 1.9 | 1.6 - 2.6 mg/dL | + +-------+ + + + + | Specimen | Performing Laboratory | + + + | Blood | [facility], CORE [address] [facility] | | | [place] [address] | + + + + + | [...] | ------ CBC AND AUTO | | DIFF[[id number]] Abnormal Final | | result Please view [...] | >60 | >60 mL/min | | VINCENTIAN | | | + + + + | EGFR NON | >60 | >60 mL/min | | -VINCENTIAN | | | + + + + [...] | + + + | Blood | [facility] SERVICES, CORE [address] [facility] | | | [place] [address] | + + + + + | [...] | + + + | Blood | [facility], CORE [address] [place] [address] | | | [place] [address] | + + + + + | [...] + + | PRODUCT UNIT # | [id number] | | + + + + | UNIT ABO | O | | + + + + | UNIT RH | NEG | | + + + + | STATUS OF UNIT | Presumed Transfused | | + + + + | EXPIRATION DATE | [id number] | | + + + + | BLOOD TYPE BARCODE | | | + + + + | BLOOD PRODUCT CODE | [id number] | | + + + + + + + | Specimen | Performing Laboratory | + + + | | [facility] SERVICES, TRANSFUSION MEDICINE [address] | | | [place] [address] | + + + CBC AND AUTO [...] | + + + | Blood | [facility], CORE [address] | | | [facility] [address] | + + + COAGULOPATHY PANEL (INR,APTT,FIBRINOGEN) [...] + + + | Blood | [facility], CORE [address] | | | [place] [address] | + + + + + | [...] + + | Swab - Rectum | [facility], CORE [address] [place] [address] RD | | | [place] [address] | + + + LDH TOTAL, PLASMA (08/04/2017 11:30 PM) + +---------+ + | Component | Value | Ref Range | + +---------+ + | LD TOTAL, PLASMA | 119 | <=250 U/L | + +---------+ + | LD CMNT | No Hemo | | + +---------+ + + + + | Specimen | Performing Laboratory | + + + | Blood | [facility], CORE [address] | | | [place] [address] | + + + URIC ACID, PLASMA (08/04/2017 11:30 PM) + +---------+ + | Component | Value | Ref Range | + +---------+ + | URIC ACID, PLASMA | 0.8 (L) | 2.5 - 6.2 mg/dL | | (LAB) | | | + +---------+ + + + + | Specimen | Performing Laboratory | + + + | Blood | [facility], CORE [address] [facility] | | | [place] [address] | + + + PHOSPHORUS, PLASMA (08/04/2017 11:30 PM) + +-------+ + | Component | Value | Ref Range | + +-------+ + | PHOSPHORUS, PLASMA | 2.5 | 2.4 - 4.7 mg/dL | | (LAB) | | | + +-------+ + + + + | Specimen | Performing Laboratory | + + + | Blood | [facility], CORE [address] [facility] [address] | | | [place] [address] | + + + MAGNESIUM, PLASMA (08/04/2017 11:30 PM) + +-------+ + | Component | Value | Ref Range | + +-------+ + | MAGNESIUM,PLASMA | 2.0 | 1.6 - 2.6 mg/dL | + +-------+ + + + + | Specimen | Performing Laboratory | + + + | Blood | [facility], CORE [address] [place] [address] | | | [place] [address] | + + + + + | [...] | ------ CBC AND AUTO | | DIFF[[id number]] Abnormal Final | | result Please view [...] | >60 | >60 mL/min | | VINCENTIAN | | | + + + + | EGFR NON | >60 | >60 mL/min | | -VINCENTIAN | | | + + + + [...] | + + + | Blood | [facility], CORE [address] | | | [place] [address] | + + + + + | [...] | + + + | Blood | [facility], CORE [address] [facility] | | | [place] [address] | + + + + + | [...] + + | PRODUCT UNIT # | [id number] | | + + + + | UNIT ABO | O | | + + + + | UNIT RH | POS | | + + + + | STATUS OF UNIT | Presumed Transfused | | + + + + | EXPIRATION DATE | [id number] | | + + + + | BLOOD TYPE BARCODE | 5100 | | + + + + | BLOOD PRODUCT CODE | [id number] | | + + + + + + + | Specimen | Performing Laboratory | + + + | | [facility], TRANSFUSION MEDICINE [address] | | | [place] [address] | + + + PRODUCT - RED CELLS LEUKOREDUCED (08/04/2017 12:13 AM) + + + + | Component | Value | Ref Range | + + + + | PRODUCT DESCRIPTION | -1 RED BLOOD CELLS ADENINE-SALINE ADDED | | | | LEUKOCYT | | + + + + | PRODUCT UNIT # | [id number] | | + + + + | UNIT ABO | O | | + + + + | UNIT RH | POS | | + + + + | STATUS OF UNIT | Presumed Transfused | | + + + + | EXPIRATION DATE | [id number] | | + + + + | BLOOD TYPE BARCODE | 5100 | | + + + + | BLOOD PRODUCT CODE | [id number] | | + + + + + + + | Specimen | Performing Laboratory | + + + | | [facility] SERVICES, TRANSFUSION MEDICINE [address] | | | [place] [address] | + + + CBC AND AUTO [...] | + + + | Blood | [facility], CORE [address] [facility] | | | [place] [address] | + + + PHOSPHORUS, PLASMA (08/03/2017 11:46 PM) + +-------+ + | Component | Value | Ref Range | + +-------+ + | PHOSPHORUS, PLASMA | 2.8 | 2.4 - 4.7 mg/dL | | (LAB) | | | + +-------+ + + + + | Specimen | Performing Laboratory | + + + | Blood | [facility], CORE [address] [facility] | | | [place] [address] | + + + MAGNESIUM, PLASMA (08/03/2017 11:46 PM) + +-------+ + | Component | Value | Ref Range | + +-------+ + | MAGNESIUM,PLASMA | 2.3 | 1.6 - 2.6 mg/dL | + +-------+ + + + + | Specimen | Performing Laboratory | + + + | Blood | [facility], CORE [address] [facility] | | | [place] [address] | + + + + + | [...] | ------ CBC AND AUTO | | DIFF[[id number]] Abnormal Final | | result Please view [...] | >60 | >60 mL/min | | VINCENTIAN | | | + + + + | EGFR NON | >60 | >60 mL/min | | -VINCENTIAN | | | + + + + [...] | + + + | Blood | [facility], CORE [address] [facility] | | | [place] [address] | + + + + + | [...] | + + + | Blood | [facility], CORE [address] [facility] [address] | | | [place] [address] | + + + MAGNESIUM, PLASMA (08/03/2017 1:55 AM) + +-------+ + | Component | Value | Ref Range | + +-------+ + | MAGNESIUM,PLASMA | 1.6 | 1.6 - 2.6 mg/dL | + +-------+ + + + + | Specimen | Performing Laboratory | + + + | Blood | [facility], CORE [address] [place] [address] [place] | | | [place] [address] | + + + + + | [...] | >60 | >60 mL/min | | VINCENTIAN | | | + + + + | EGFR NON | >60 | >60 mL/min | | -VINCENTIAN | | | + + + + [...] | + + + | Blood | [facility], CORE [address] [place] [address] | | | [place] [address] | + + + + + | [...] | + + + | Blood | [facility], CORE [address] [facility] | | | [place] [address] | + + + CBC, WITH DIFFERENTIAL [...] | ------ CBC AND AUTO | | DIFF[[id number]] Abnormal Final | | result Please view [...] | + + + | Blood | [facility], CORE [address] [facility] | | | [place] [address] | + + + + + | [...] | + + + | Blood | [facility] SERVICES, TRANSFUSION MEDICINE [address] [facility] | | | [place] [address] | + + + ABO & RH [...] | + + + | Blood | [facility], TRANSFUSION MEDICINE [address] [facility] | | | [place] [address] | + + + TYPE AND SCREEN [...] | ------ ABO & RH | | TYPE[[id number]] F | | inal result ANTIBODY | | SCREEN[[id number]] Fin | | al result Please view [...] + + | PRODUCT UNIT # | [id number] | | + + + + | UNIT ABO | O | | + + + + | UNIT RH | POS | | + + + + | STATUS OF UNIT | Presumed Transfused | | + + + + | EXPIRATION DATE | [id number] | | + + + + | BLOOD TYPE BARCODE | 5100 | | + + + + | BLOOD PRODUCT CODE | [id number] | | + + + + + + + | Specimen | Performing Laboratory | + + + | | [facility], TRANSFUSION MEDICINE [address] [facility] | | | [place] [address] | + + + PRODUCT - RED CELLS LEUKOREDUCED (08/02/2017 1:50 AM) + + + + | Component | Value | Ref Range | + + + + | PRODUCT DESCRIPTION | -1 RED BLOOD CELLS ADENINE-SALINE ADDED | | | | LEUKOCYT | | + + + + | PRODUCT UNIT # | [id number] | | + + + + | UNIT ABO | O | | + + + + | UNIT RH | POS | | + + + + | STATUS OF UNIT | Presumed Transfused | | + + + + | EXPIRATION DATE | [id number] | | + + + + | BLOOD TYPE BARCODE | 5100 | | + + + + | BLOOD PRODUCT CODE | [id number] | | + + + + + + + | Specimen | Performing Laboratory | + + + | | [facility] SERVICES, TRANSFUSION MEDICINE [address] | | | [place] [address] | + + + PHOSPHORUS, PLASMA (08/01/2017 11:55 PM) + +---------+ + | Component | Value | Ref Range | + +---------+ + | PHOSPHORUS, PLASMA | 2.3 (L) | 2.4 - 4.7 mg/dL | | (LAB) | | | + +---------+ + + + + | Specimen | Performing Laboratory | + + + | Blood | [facility] SERVICES, CORE [address] [place] [address] | | | [place] [address] | + + + MAGNESIUM, PLASMA (08/01/2017 11:55 PM) + +-------+ + | Component | Value | Ref Range | + +-------+ + | MAGNESIUM,PLASMA | 1.7 | 1.6 - 2.6 mg/dL | + +-------+ + + + + | Specimen | Performing Laboratory | + + + | Blood | [facility], CORE [address] [place] [address] | | | [place] [address] | + + + + + | [...] | >60 | >60 mL/min | | VINCENTIAN | | | + + + + | EGFR NON | >60 | >60 mL/min | | -VINCENTIAN | | | + + + + [...] | + + + | Blood | [facility], CORE [address] [facility] | | | [place] [address] | + + + + + | [...] | + + + | Blood | [facility], CORE [address] [facility] | | | [place] [address] | + + + CBC, WITH DIFFERENTIAL [...] | ------ CBC AND AUTO | | DIFF[[id number]] Abnormal Final | | result Please view [...] w/medications for | | anxiolysis Equipment Description: [employer] Animal [employer]elty Investigation Supervisor Serial ID: [id number] | | Indications: 51 y.o. female with [...] needle was inserted with | | the [employer] driver guide. The first aspirate was noted to have spicules and was submitted | | for morphology studies. A second aspirate was obtained in a heparinized syringe | | and submitted for FISH as per previous abnormalities, flow cytometry and | | cytogenetics. A total of 15 mL of bone marrow was aspirated. The [employer] 4 | | inch needle was advanced using the [employer] driver guide. A core biopsy measuring | | approximately [...] 24 to 48 hours. ELLIS MEJIA PA-C,NAOMY [facility] 13K [address] | | [facility] Mailcode: [address] [place] [address] | + + LESS COMMON INDIVIDUAL FISH PROBES, BONE MARROW/CORE (08/01/2017 3:04 PM) + + + + | Component | Value | Ref Range | + + + + | PREVIOUS | Rodriguez 5q EGR1 (5q31) (SO) / D5S23, H9O839 | | | ABNORMALITIES PROBE | (5p15.2) () | | | NAME ONE | | | + + + + | CELLS SCORED PROBE | 200 | | | ONE | | | + + + + + + + | Specimen | Performing Laboratory | + + + | Bone marrow | [facility] [address] | | | [address] [place] [address] | + + + AML FISH PANEL, BONE MARROW/CORE (08/01/2017 3:04 PM) + +--------+ + | Component | Value | Ref Range | + +--------+ + | AML FISH PANEL | Normal | | + +--------+ + | CS METASYSTEMS | 200 | | | [id number] (7Q31) (SO) / | | | | [...] SCORED RODRIGUEZ | 200 | | | TPST4E1 (8Q21.3) | | | | (SO) / [...] CS METASYSTEMS | 200 | | | DEK(6P22)(SG)/TQR173 | | | | (9Q34)(SO)T(6;9)DC,D | | | + +--------+ + + + + | Specimen | Performing Laboratory | + + + | Bone marrow | [address] | | [address] [place] [address] | + + + FLT3 ITD, BONE [...] clinical trial | | | | (CALGB [id number]) has led to the FDA approval | | | | in July 2016 of the multitargeted kinase | | | | inhibitor midostaurin for the treatment of | | | | adult patients with newly diagnosed AML | | | | harboring either the FLT3-ITD or FLT3-TKD | | | | mutations (Shade Prado, Blood, 2017, | | | | 129:6129-2763). The quantitative reporting | | | | [...] | | | characteristics determined by the [facility] | | | | [facility] [...] 1988 | | | | (CLIA). The [facility] | | | | Laboratories are fully licensed by the | | | | [facility] under CLIA and are | | | | accredited by the [employer] | | | | Pathologists (CAP). Laboratory | | | | Director: Edy Vang M.D., | | | | Ph.D | | + + + + + + + | Specimen | Performing Laboratory | + + + | Bone marrow | [facility] [address] | | [address] [place] [address] | + + + COMPREHENSIVE HEME PANEL [...] | | | | Sequencing Specimen ID: [id number] | | | | Type: Bone Marrow [...] | | | | (Tier I) Gene: MUT0Eahnbfx: | | | | p.C798ickrpfPDTRFKKGKXMVVTRXulxvgb allele | | | | frequency (VAF): 22%Variant allele ratio: | | | | 0.58 Variant ID: NAFLT3 (VTTY51942.1): | | | | c.1784_1782insGTGACCGGCTCCTCAGATAATGAGTACTT | | | | CTACGTTGATTTC; | | | | chr13:[id number]>TGAAATCAACGTAGAAGTACTCATTAT | | | | CTGAGGAGCCGGTCACLast Observed: 04/04/2017; | | | | Allele frequency: 0%03/03/2017; Allele | | | | frequency: 75%03/14/2016; Allele frequency: | | | | 0%02/15/2016; Allele frequency: 0% Gene: | | | | LNFZ5BKkwysbo: p.K177IZtfxrnm allele | | | | frequency (VAF): 16%Variant ID: | | | | [id number]; [id number], [id number] | | | | (COLL25976.1):c.2644C>T; | | | | chr2:46363532Q>ALast Observed: 04/04/2017; | | | | Allele frequency: 19%03/03/2017; Allele | | | | frequency: 46%03/14/2016; Allele frequency: | | | | 14%02/15/2016; Allele frequency: 45% Gene: | | | | OLW5Yqpwykw: p.W288fs*12Variant allele | | | | frequency (VAF): 14%Variant ID: | | | | [id number]; [id number] | | | | (FHTU8643.1):c.859_860insTCTG; | | | | chr5:086598733A>CTCTGLast Observed: | | | | 04/04/2017; Allele frequency: 0%03/03/2017; | | | | Allele frequency: 44%03/14/2016; Allele | | | | frequency: 0%02/15/2016; Allele frequency: | | | | 46% Variant(s) of Potential Clinical | | | | Significance (Tier II) Gene: ZU5Vwmlyae: | | | | p.V362fs*69Variant allele frequency (VAF): | | | | 12%Variant ID: [id number] | | | | (BMJV36896.1):c.1083_1088TGTACG>GA; | | | | chr11:72293216YRKNMVB>CTCLast Observed: | | | | 04/04/2017; Allele [...] 2009; Gilda, | | | | Blood 115:00017, 2009). No targeted therapy | | | [...] | | | | | | | genes:WLE5WLFVABCRTQIRNTO2VINP6QVROD9GDK7WY | | | | HT2JEI74ADQOMR1QTLJ9YYO1YHD3NDVHNRUYCVDLY43 | | | | VEUDJ6WUJII2FVTWJDFG2JCAL2DFXO40 | | | | Chromatin-modifying | | | | genes:DERO8LRCPYVEX949LGF9YWF1EKICZJRG73 | | | | DNA methylation-associated | | | | genes:DDNH6JVRB9RWW9QMT0 Hand Mold Maker | | | | factors:VDJVDJT5TZYXEYBAFYCPWXN6PEVF7TOXR4H | | | | MSL4CS7VLTB3HGK2BXOE2MOZLVPS1VXHI1JEKX7HQZ2 | | | | Spliceosome-complex | | | | genes:TOLM5DG0B8P7SX8MFNJ5 Cohesion-complex | | | | genes:MSO7USIS3HONZ9NFG93 Tumor suppressor | | | | genes:OI68JK5QON6 and | | | | others:PMQ8TMDN4HPTU67MD20ZVLJ1SNRSX0BDDBRR | | | | HID5BTPDBB5HGBNVC05GCQAD7 All the coding | | | | [...] multiplexed PCR (customized | | | | Implisit targeted DNA panel with molecular | | | | barcodes) and sequencing on an Illumina | | | | platform ([id number]). Sequencing data is | | | | [...] classification: Blood. 2016; | | | | 127(20):2374-320. 7.Catalogue Of Somatic | | | | Mutations In Cancer: | | | | http://cancer.julia.ac.uk/cosmic8.ClinVar: | | | | | | | | https://www.ncbi.nlm.nih.gov/clinvar/9.SHIRLEY- | | | | Clinical Knowledgebase (CKB): | | | | https://ckb.Nexercise.org/10.CIViC: | | | | https://civicdb.org/home | | + + + + | DISCLAIMER | This test was developed and its performance | | | | characteristics determined by the [facility] | | | | [facility]. It has | | | [...] 1988 | | | | (CLIA). The [facility] | | | | Laboratories are fully licensed by the | | | | [facility] under CLIA and are | | | | accredited by the [employer] | | | | Pathologists (CAP). Laboratory | | | | Director: Edy Vang M.D., | | | | Ph.D | | + + + + + + + | Specimen | Performing Laboratory | + + + | Bone marrow | [facility] [address] [facility] [address] | | | [address] [place] [address] | + + + GENETRAILS COMPREHENSIVE HEME [...] | | ------ COMPREHENSIVE | | HEME PANEL...[[id number]] Final | | result FLT3 ITD, BONE | | MARROW[[id number]] Final | | result Please view results [...] | | was made by the clinical air traffic control manager. | | | | | | | [...] | | | characteristics determined by the [facility] | | | | [facility]. It has | | | [...] 1988 | | | | (CLIA). The [facility] | | | | Laboratories are fully licensed by the | | | | [facility] under CLIA and are | | | | accredited by the [employer] | | | | Pathologists (CAP). Laboratory | | | | Director: Edy Vang M.D., | | | | Ph.D Electronically reviewed and signed | | | | by:Kar Mckeon, PhD, [facility] HEALTHClinical | | | | Concrete Mixing Truck Driver Clinical Molecular | | | | Geneticist08/12/2017 at 8:15 AM Reviewed | | | | and electronically signed by OLIVIA | | | | MD RENAY,[facility]08/12/2017 2:19 PM | | + + + + + + + | Specimen | Performing Laboratory | + + + | Bone marrow | [facility] [address] [facility] [address] | | | [address] [place] [address] | + + + LEUKEMIA/LYMPHOMA MARKERS - [...] characteristics | | | | determined by [facility]. It has | | | | not [...] + + + | Bone marrow | [facility] DEPARTMENT OF PATHOLOGY [address] | | | [place] [address] | + + + CBC AND AUTO [...] | + + + | Blood | [facility] LABORATORY SERVICES, CORE [address] [facility] | | | [place], [place] [address] | + + + CBC, WITH DIFFERENTIAL [...] | ------ CBC AND AUTO | | DIFF[[id number]] Abnormal Final | | result Please view [...] + + + | Blood | [facility], CORE [address] [facility] | | | [place] [address] | + + + + + | [...] | + + + | Blood | [facility] LABORATORY SERVICES, CORE [address] [facility] | | | [place] [address] | + + + URIC ACID, PLASMA (08/01/2017 12:15 AM) + +---------+ + | Component | Value | Ref Range | + +---------+ + | URIC ACID, PLASMA | 1.2 (L) | 2.5 - 6.2 mg/dL | | (LAB) | | | + +---------+ + + + + | Specimen | Performing Laboratory | + + + | Blood | [facility], CORE [address] [place] [address] | | | [place] [address] | + + + PHOSPHORUS, PLASMA (08/01/2017 12:15 AM) + +-------+ + | Component | Value | Ref Range | + +-------+ + | PHOSPHORUS, PLASMA | 2.9 | 2.4 - 4.7 mg/dL | | (LAB) | | | + +-------+ + + + + | Specimen | Performing Laboratory | + + + | Blood | [facility] LABORATORY SERVICES, CORE [address] [facility] | | | [place] [address] | + + + MAGNESIUM, PLASMA (08/01/2017 12:15 AM) + +-------+ + | Component | Value | Ref Range | + +-------+ + | MAGNESIUM,PLASMA | 1.7 | 1.6 - 2.6 mg/dL | + +-------+ + + + + | Specimen | Performing Laboratory | + + + | Blood | [facility] LABORATORY [facility], CORE [address] | | | [place] [address] | + + + + + | [...] | >60 | >60 mL/min | | VINCENTIAN | | | + + + + | EGFR NON | >60 | >60 mL/min | | -VINCENTIAN | | | + + + + [...] | + + + | Blood | [facility] LABORATORY [facility], CORE [address] | | | [place] [address] | + + + + + | [...] as fungal & bacterial PCR - see Swank for pending labs. | | Cytology done [...] Laboratory | + + + | | [facility] RADIOLOGY VOICE RECOGNITION | + + + + + | Narrative | + + | EXAM: AZ CHEST 1 VIEW 07/31/17 07:58:13 HISTORY: Post [...] Interface - 07/31/2017 9:02 AM PDT EXAM: AZ CHEST 1 | | VIEW 07/31/17 07:58:13 [...] + + + | Blood | [facility], CORE [address] [place] [address] | | | [place] [address] | + + + CBC, WITH DIFFERENTIAL [...] | ------ CBC AND AUTO | | DIFF[[id number]] Abnormal Final | | result Please view [...] non-specific staining. | | | | Antibodies HreuevLL18 CD14 CD16 CD33 CD34 | | | [...] characteristics | | | | determined by [facility]. It has | | | | not [...] | + + + | Bronchoalveolar | [facility] DEPARTMENT OF PATHOLOGY [address] [place] [address] RD | | lavage fluid - | [place] [address] | | Broncheoalveolar | | | Lavage [...] performed by : | | | | [facility] | | | | [address] [facility] | | | | [place] [address] | | + + + + + [...] | + + + | Bronchoalveolar | [facility] LABORATORY SERVICES, [facility] [address] [facility] | | lavage fluid - | [place] [address] | | Broncheoalveolar | | | Lavage [...] characteristics determined by | | | | [facility]. See Compliance | | | | Statement B: [facility]/CSPerformed by | | | | [facility],[address] [place] [address] | | | | [phone] mii.[facility]elesisKelton | | | | MD Darren, Lab. Director | | + + + + | SOURCE, INF SER/PCR | BAL | | + + + + + + + | Specimen | Performing Laboratory | + + + | Bronchoalveolar | [facility] PTH - INT [address] [facility] | | lavage fluid - Lung | [place] [address] | + + + NON SWISS MACHINIST CYTOLOGY (07/31/2017 7:47 AM) + + + [...] + + | Fluid - Lung | [facility] DEPARTMENT OF PATHOLOGY [address] [facility] [address] | | | [place] [address] | + + + CULTURE, FUNGAL EXCEPT BLOOD, SKIN, HAIR, NAIL (07/31/2017 7:46 AM) + + + | Specimen | Performing Laboratory | + + + | Bronchoalveolar | [facility] [place] [address] [place], [place] | | lavage fluid - Lung | [address] | + + + + + | Narrative | + + | Culture Report: No fungus isolated at 3 weeks. | + + NOCARDIA CULTURE, RULE OUT (07/31/2017 7:46 AM) + + + | Specimen | Performing Laboratory | + + + | Bronchoalveolar | [facility] [place] [address] [place], [place] | | lavage fluid - Lung | [address] | + + + + + | Narrative | + + | Culture Report: Nocardia not isolated | + + CULTURE, BRONCHIAL LAVAGE (07/31/2017 7:46 AM) + + + | Specimen | Performing Laboratory | + + + | Bronchoalveolar | [facility] [address] [place], [place] | | lavage fluid - Lung | [address] | + + + + + | [...] [facility] | | | | [facility],[address] [place] [address],[place] [address] | | | | [phone].[facility], Kelton Banks, | | | | Olive ANTUNEZ. Director | | + + + + + + + | Specimen | Performing Laboratory | + + + | Bronchoalveolar | [facility] P[facility] - INT [address] [facility] | | lavage fluid - Lung | [facility] [place] [address] | + + + + + | Narrative | + + | Test performed by [facility] Syed Hern[facility] [address] | | [phone] www.[facility] | | | | | + + FLEXIBLE BRONCHOSCOPY (07/31/2017 7:32 AM) + + + | Specimen | Performing Laboratory | + + + | | [facility] | + + + + + | Narrative | + + | Procedure Date: 07/31/2017 Patient Name: Rhea Hutchison Order #: [id number] | | Date of : 1965 CSN: [id number] Admit Type: Inpatient Room: OR | | Procedure: Bronchoscopy | | Indications: Diagnostic bronchoalveolar lavage, Bilateral | | infiltrate, Immune compromised with | | pneumonia, Abnormal CT scan of chest | | Providers: BENNY FOWLER MD, ANTONINO YBARRA MD (Fellow), | | KAR AGGARWAL MD, [facility] | | Referring MD: ANTONINO YBARRA [...] and soft palate visualized). | | - [place] Protocol: | | - Pre-procedure Verification: Prior [...] by | | the physician and the floor care technician in the | | procedure room [...] continuously. The Olympus | | BF-Q190 S/N [id number] bronchoscope was | | introduced through the [...] + + | PRODUCT UNIT # | [id number] | | + + + + | UNIT ABO | O | | + + + + | UNIT RH | POS | | + + + + | STATUS OF UNIT | Presumed Transfused | | + + + + | EXPIRATION DATE | [id number] | | + + + + | BLOOD TYPE BARCODE | 5100 | | + + + + | BLOOD PRODUCT CODE | [id number] | | + + + + + + + | Specimen | Performing Laboratory | + + + | | [facility] LABORATORY SERVICES, TRANSFUSION MEDICINE [address] | | | [address] [place] [address] | + + + PRODUCT - RED CELLS LEUKOREDUCED (07/31/2017 12:47 AM) + + + + | Component | Value | Ref Range | + + + + | PRODUCT DESCRIPTION | -1 RED BLOOD CELLS ADENINE-SALINE ADDED | | | | LEUKOCYT | | + + + + | PRODUCT UNIT # | [id number] | | + + + + | UNIT ABO | O | | + + + + | UNIT RH | POS | | + + + + | STATUS OF UNIT | Presumed Transfused | | + + + + | EXPIRATION DATE | [id number] | | + + + + | BLOOD TYPE BARCODE | 5100 | | + + + + | BLOOD PRODUCT CODE | [id number] | | + + + + + + + | Specimen | Performing Laboratory | + + + | | [facility] SERVICES, [facility] MEDICINE [address] [facility] | | | [place] [address] | + + + CBC AND AUTO [...] | + + + | Blood | [facility] LABORATORY SERVICES, CORE [address] [facility] | | | [place] [address] | + + + PHOSPHORUS, PLASMA (07/31/2017 12:14 AM) + +-------+ + | Component | Value | Ref Range | + +-------+ + | PHOSPHORUS, PLASMA | 2.9 | 2.4 - 4.7 mg/dL | | (LAB) | | | + +-------+ + + + + | Specimen | Performing Laboratory | + + + | Blood | [facility] LABORATORY SERVICES, CORE [address] | | | [place] [address] | + + + MAGNESIUM, PLASMA (07/31/2017 12:14 AM) + +-------+ + | Component | Value | Ref Range | + +-------+ + | MAGNESIUM,PLASMA | 1.7 | 1.6 - 2.6 mg/dL | + +-------+ + + + + | Specimen | Performing Laboratory | + + + | Blood | [facility] LABORATORY SERVICES, CORE [address] | | | [place] [address] | + + + + + | [...] | ------ CBC AND AUTO | | DIFF[[id number]] Abnormal Final | | result Please view [...] | >60 | >60 mL/min | | VINCENTIAN | | | + + + + | EGFR NON | >60 | >60 mL/min | | -VINCENTIAN | | | + + + + [...] + + + | Blood | [facility] SERVICES, CORE [address] [place] [address] | | | [facility] [address] | + + + + + | [...] + + | Sputum - Lung | [facility] [address] [place], [place] | | | [address] | + + + + + | Narrative | + + | Culture Report: No mould isolated at 3 weeks | + + CULTURE, SPUTUM CYSTIC FIBROSIS (07/31/2017 12:13 AM) + + + | Specimen | Performing Laboratory | + + + | Sputum - Lung | [facility] [place] [address] [place], [place] | | | [address] | + + + + + | [...] + | Blood - PICC red | [facility] LABORATORY SERVICES, CORE [address] | | port | [place] [address] | + + + ASPERGILLUS GALACTOMANNAN ANTIGEN, [...] | + + + | Blood | [facility]ATORY SERVICES, [facility] [address] [facility] | | | [place] [address] | + + + + + | [...] ------ CULTURE, BLOOD | | BACTI & Y...[[id number]] Final | | result Please view results [...] + + | Swab - Nasal | [facility] LABORATORY [facility], CORE [address] [place] [address] | | | [place] [address] | + + + POSACONAZOLE, QUANT (07/30/2017 [...] | | | | characteristics determined by [employer] | | | | [facility]. See Compliance Statement B: | | | | [facility]/CSPerformed by [facility] | | | | [facility],[address] [place] [address] | | | | [phone].[facility], Kelton Banks | | | | MD Lab. Director | | | |www.[facility], Kelton Banks MD, Lab. Director | | + + + + + + + | Specimen | Performing Laboratory | + + + | Blood | [facility] PTH - INT [address] [facility] | | | [place] [address] | + + + CBC AND AUTO [...] | + + + | Blood | [facility] LABORATORY SERVICES, CORE [address] [facility] | | | [place] [address] | + + + CBC, WITH DIFFERENTIAL [...] | ------ CBC AND AUTO | | DIFF[[id number]] Abnormal Final | | result Please view [...] | + + + | Blood | [facility] LABORATORY SERVICES, CORE [address] [facility] | | | [place] [address] | + + + MAGNESIUM, PLASMA (07/30/2017 12:25 AM) + +-------+ + | Component | Value | Ref Range | + +-------+ + | MAGNESIUM,PLASMA | 1.8 | 1.6 - 2.6 mg/dL | + +-------+ + + + + | Specimen | Performing Laboratory | + + + | Blood | [facility] LABORATORY SERVICES, CORE [address] [facility] | | | [place] [address] | + + + + + | [...] | >60 | >60 mL/min | | VINCENTIAN | | | + + + + | EGFR NON | >60 | >60 mL/min | | -VINCENTIAN | | | + + + + [...] + + + | Blood | [facility], CORE [address] [facility] | | | [place] [address] | + + + + + | [...] + + | Swab - Rectum | [facility] LABORATORY SERVICES, CORE [address] [facility] | | | [place] [address] | + + + PRODUCT - PLATELET PHERESIS LEUKOREDUCED (07/29/2017 1:58 AM) + + + + | Component | Value | Ref Range | + + + + | PRODUCT DESCRIPTION | PLATELETS PHERESIS, LEUKOCYTE REDUCED, | | | | IRRADIATED | | + + + + | PRODUCT UNIT # | [id number] | | + + + + | UNIT ABO | O | | + + + + | UNIT RH | POS | | + + + + | STATUS OF UNIT | Presumed Transfused | | + + + + | EXPIRATION DATE | [id number] | | + + + + | BLOOD TYPE BARCODE | 5100 | | + + + + | BLOOD PRODUCT CODE | [id number] | | + + + + + + + | Specimen | Performing Laboratory | + + + | | [facility] LABORATORY SERVICES, TRANSFUSION MEDICINE [address] [facility] | | | [place] [address] | + + + PRODUCT - RED CELLS LEUKOREDUCED (07/29/2017 1:58 AM) + + + + | Component | Value | Ref Range | + + + + | PRODUCT DESCRIPTION | -1 RED BLOOD CELLS ADENINE-SALINE ADDED | | | | LEUKOCYT | | + + + + | PRODUCT UNIT # | [id number] | | + + + + | UNIT ABO | O | | + + + + | UNIT RH | POS | | + + + + | STATUS OF UNIT | Presumed Transfused | | + + + + | EXPIRATION DATE | [id number] | | + + + + | BLOOD TYPE BARCODE | 5100 | | + + + + | BLOOD PRODUCT CODE | [id number] | | + + + + + + + | Specimen | Performing Laboratory | + + + | | [facility] LABORATORY SERVICES, TRANSFUSION MEDICINE [address] | | | [address] [place] [address] | + + + ANTIBODY SCREEN (07/29/2017 1:58 AM) + + + + | Component | Value | Ref Range | + + + + | Antibody Screen | Negative | | + + + + + + + | Specimen | Performing Laboratory | + + + | Blood | [facility] LABORATORY SERVICES, TRANSFUSION MEDICINE [address] [facility] | | | [place] [address] | + + + ABO & RH [...] | + + + | Blood | [facility] LABORATORY SERVICES, TRANSFUSION MEDICINE [address] [facility] | | | [place] [address] | + + + TYPE AND SCREEN [...] | ------ ABO & RH | | TYPE[[id number]] F | | inal result ANTIBODY | | SCREEN[[id number]] Fin | | al result Please view [...] | + + + | Blood | [facility] LABORATORY SERVICES, CORE [address] [place] [address] | | | [place] [address] | + + + COAGULOPATHY PANEL (INR,APTT,FIBRINOGEN) [...] | + + + | Blood | [facility] LABORATORY [facility], CORE [address] [facility] | | | [place] [address] | + + + + + | [...] | + + + | Blood | [facility] LABORATORY SERVICES, CORE [address] [place] [address] | | | [place] [address] | + + + URIC ACID, PLASMA (07/29/2017 1:10 AM) + +---------+ + | Component | Value | Ref Range | + +---------+ + | URIC ACID, PLASMA | 1.0 (L) | 2.5 - 6.2 mg/dL | | (LAB) | | | + +---------+ + + + + | Specimen | Performing Laboratory | + + + | Blood | [facility], CORE [address] [place] [address] | | | [place] [address] | + + + PHOSPHORUS, PLASMA (07/29/2017 1:10 AM) + +-------+ + | Component | Value | Ref Range | + +-------+ + | PHOSPHORUS, PLASMA | 3.3 | 2.4 - 4.7 mg/dL | | (LAB) | | | + +-------+ + + + + | Specimen | Performing Laboratory | + + + | Blood | [facility] LABORATORY SERVICES, CORE [address] | | | [place] [address] | + + + MAGNESIUM, PLASMA (07/29/2017 1:10 AM) + +-------+ + | Component | Value | Ref Range | + +-------+ + | MAGNESIUM,PLASMA | 1.8 | 1.6 - 2.6 mg/dL | + +-------+ + + + + | Specimen | Performing Laboratory | + + + | Blood | [facility] LABORATORY SERVICES, CORE [address] [facility] | | | [place] [address] | + + + + + | [...] | ------ CBC AND AUTO | | DIFF[[id number]] Abnormal Final | | result Please view [...] | >60 | >60 mL/min | | VINCENTIAN | | | + + + + | EGFR NON | >60 | >60 mL/min | | -VINCENTIAN | | | + + + + [...] + + + | Blood | [facility], CORE [address] [facility] [address] | | | [place] [address] | + + + + + | [...] | + + + | Blood | [facility] LABORATORY SERVICES, CORE [address] [facility] | | | [place] [address] | + + + PHOSPHORUS, PLASMA (07/28/2017 12:14 AM) + +-------+ + | Component | Value | Ref Range | + +-------+ + | PHOSPHORUS, PLASMA | 3.4 | 2.4 - 4.7 mg/dL | | (LAB) | | | + +-------+ + + + + | Specimen | Performing Laboratory | + + + | Blood | [facility] LABORATORY SERVICES, CORE [address] | | | [place] [address] | + + + MAGNESIUM, PLASMA (07/28/2017 12:14 AM) + +-------+ + | Component | Value | Ref Range | + +-------+ + | MAGNESIUM,PLASMA | 1.8 | 1.6 - 2.6 mg/dL | + +-------+ + + + + | Specimen | Performing Laboratory | + + + | Blood | [facility], CORE [address] | | | [place] [address] | + + + + + | [...] | ------ CBC AND AUTO | | DIFF[[id number]] Abnormal Final | | result Please view [...] | >60 | >60 mL/min | | VINCENTIAN | | | + + + + | EGFR NON | >60 | >60 mL/min | | -VINCENTIAN | | | + + + + [...] + + + | Blood | [facility] [address] | | | [place] [address] | + + + + + | [...] | + + + | Blood | [facility], [address] [facility] [address] [facility] | | | [place] [address] | + + + PHOSPHORUS, PLASMA (07/27/2017 12:19 AM) + +-------+ + | Component | Value | Ref Range | + +-------+ + | PHOSPHORUS, PLASMA | 3.1 | 2.4 - 4.7 mg/dL | | (LAB) | | | + +-------+ + + + + | Specimen | Performing Laboratory | + + + | Blood | [facility], CORE [address] | | | [place] [address] | + + + MAGNESIUM, PLASMA (07/27/2017 12:19 AM) + +-------+ + | Component | Value | Ref Range | + +-------+ + | MAGNESIUM,PLASMA | 1.8 | 1.6 - 2.6 mg/dL | + +-------+ + + + + | Specimen | Performing Laboratory | + + + | Blood | [facility], [facility]ORE [address] | | | [place] [address] | + + + + + | [...] | ------ CBC AND AUTO | | DIFF[[id number]] Abnormal Final | | result Please view [...] | >60 | >60 mL/min | | VINCENTIAN | | | + + + + | EGFR NON | >60 | >60 mL/min | | -VINCENTIAN | | | + + + + [...] + + + | Blood | [facility], CORE [address] | | | [place] [address] | + + + + + | [...] + + | PRODUCT UNIT # | [id number] | | + + + + | UNIT ABO | O | | + + + + | UNIT RH | POS | | + + + + | STATUS OF UNIT | Presumed Transfused | | + + + + | EXPIRATION DATE | [id number] | | + + + + | BLOOD TYPE BARCODE | 5100 | | + + + + | BLOOD PRODUCT CODE | [id number] | | + + + + + + + | Specimen | Performing Laboratory | + + + | | [facility], TRANSFUSION MEDICINE [address] | | | [address] [address] [address] | + + + PRODUCT - RED CELLS LEUKOREDUCED (07/26/2017 1:39 AM) + + + + | Component | Value | Ref Range | + + + + | PRODUCT DESCRIPTION | -1 RED BLOOD CELLS ADENINE-SALINE ADDED | | | | LEUKOCYT | | + + + + | PRODUCT UNIT # | [id number] | | + + + + | UNIT ABO | O | | + + + + | UNIT RH | POS | | + + + + | STATUS OF UNIT | Presumed Transfused | | + + + + | EXPIRATION DATE | [id number] | | + + + + | BLOOD TYPE BARCODE | 5100 | | + + + + | BLOOD PRODUCT CODE | [id number] | | + + + + + + + | Specimen | Performing Laboratory | + + + | | [facility], TRANSFUSION MEDICINE [address] | | | [place] [address] | + + + ANTIBODY SCREEN (07/26/2017 1:36 AM) + + + + | Component | Value | Ref Range | + + + + | Antibody Screen | Negative | | + + + + + + + | Specimen | Performing Laboratory | + + + | Blood | [facility], TRANSFUSION MEDICINE [address] [place] [address] | | | [place] [address] | + + + ABO & RH [...] | + + + | Blood | [facility], TRANSFUSION MEDICINE [address] [facility] | | | [place] [address] | + + + TYPE AND SCREEN [...] | ------ ABO & RH | | TYPE[[id number]] F | | inal result ANTIBODY | | SCREEN[[id number]] Fin | | al result Please view [...] + + + | Blood | [facility], CORE [address] [place] [address] | | | [place], [place] [address] | + + + PHOSPHORUS, PLASMA (07/26/2017 12:40 AM) + +-------+ + | Component | Value | Ref Range | + +-------+ + | PHOSPHORUS, PLASMA | 4.1 | 2.4 - 4.7 mg/dL | | (LAB) | | | + +-------+ + + + + | Specimen | Performing Laboratory | + + + | Blood | [facility], CORE [address] [facility] | | | [place] [address] | + + + MAGNESIUM, PLASMA (07/26/2017 12:40 AM) + +-------+ + | Component | Value | Ref Range | + +-------+ + | MAGNESIUM,PLASMA | 1.9 | 1.6 - 2.6 mg/dL | + +-------+ + + + + | Specimen | Performing Laboratory | + + + | Blood | [facility], CORE [address] [facility] | | | [place] [address] | + + + + + | [...] | ------ CBC AND AUTO | | DIFF[[id number]] Abnormal Final | | result Please view [...] | >60 | >60 mL/min | | VINCENTIAN | | | + + + + | EGFR NON | >60 | >60 mL/min | | -VINCENTIAN | | | + + + + [...] + + + | Blood | [facility], [facility] [address] | | | [place] [address] | + + + + + | [...] Procedure Note | | Indications:Chemo Procedure location: Unit:critical access hospital Room: 20 Providers: Attending name: | | Attending physically present: No PICC Nurse name: Laine Patel, RNAssisted by | | Pre-Procedure Consent: written consent obtained Consent given by: Patient | | Patient identity confirmed per protocol: Yes Team Pause: Immediatly prior to the | | procedure a pause per protocol was called. A pause verifies correct patient, | | procedure, equipment, ict customer support officer and site/side marked as required. CLABSI | [...] Arm area Cephalic vein. Catheter lot number: [id number] with a length of 55 cm | [...] Laboratory | + + + | | [facility] VOICE RECOGNITION | + + + + + | Narrative | + + | STUDY: AZ CHEST 1 VIEW 07/25/17 09:31:38 COMPARISON: 07/20/17 [...] Note | + + | Service Account, MoveE[employer] Res In Interface - 07/25/2017 10:38 AM PDT STUDY: AZ CHEST 1 | | VIEW 07/25/17 09:31:38COMPARISON: [...] | + + + | Blood | [facility], CORE [address] [place] [address] | | | [place] [address] | + + + COAGULOPATHY PANEL (INR,APTT,FIBRINOGEN) [...] + + + | Blood | [facility], CORE [address] [facility] | | | [place] [address] | + + + + + | [...] | + + + | Blood | [facility], CORE [address] | | | [place] [address] | + + + + + | [...] | + + + | Blood | [facility], CORE [address] [facility] | | | [place] [address] | + + + PHOSPHORUS, PLASMA (07/24/2017 11:47 PM) + +-------+ + | Component | Value | Ref Range | + +-------+ + | PHOSPHORUS, PLASMA | 3.4 | 2.4 - 4.7 mg/dL | | (LAB) | | | + +-------+ + + + + | Specimen | Performing Laboratory | + + + | Blood | [facility], CORE [address] [place] [address] | | | [place] [address] | + + + MAGNESIUM, PLASMA (07/24/2017 11:47 PM) + +-------+ + | Component | Value | Ref Range | + +-------+ + | MAGNESIUM,PLASMA | 1.8 | 1.6 - 2.6 mg/dL | + +-------+ + + + + | Specimen | Performing Laboratory | + + + | Blood | [facility] LABORATORY [facility], CORE [address] [facility] | | | [place] [address] | + + + + + | [...] | ------ CBC AND AUTO | | DIFF[[id number]] Abnormal Final | | result Please view [...] | >60 | >60 mL/min | | VINCENTIAN | | | + + + + | EGFR NON | >60 | >60 mL/min | | -VINCENTIAN | | | + + + + [...] | + + + | Blood | [facility], [facility] [address] | | | [place] [address] | + + + + + | [...] | + + + | Blood | [facility], CORE [address] [place] [address] | | | [place] [address] | + + + MAGNESIUM, PLASMA (07/23/2017 11:30 PM) + +-------+ + | Component | Value | Ref Range | + +-------+ + | MAGNESIUM,PLASMA | 1.8 | 1.6 - 2.6 mg/dL | + +-------+ + + + + | Specimen | Performing Laboratory | + + + | Blood | [facility], CORE [address] [place] [address] | | | [place] [address] | + + + + + | [...] | >60 | >60 mL/min | | VINCENTIAN | | | + + + + | EGFR NON | >60 | >60 mL/min | | -VINCENTIAN | | | + + + + [...] | + + + | Blood | [facility], [facility] [address] [facility] | | | [place] [address] | + + + + + | [...] + + + | Blood | [facility], CORE [address] [facility] | | | [place] [address] | + + + CBC ONLY (07/23/2017 8:20 PM) + + + | Specimen | Performing Laboratory | + + + | Blood | | + + + + + | Narrative | + + | The following orders were created for panel order CBC ONLY. | | Procedure | | Abnormality Status | | --------- | | ------ CBC (HEMOGRAM) | | ONLY[[id number]] Abnormal Final | | result Please view [...] | + + + | Blood | [facility] [address] [place] [address] | | | [place] [address] | + + + CBC ONLY (07/23/2017 4:00 AM) + + + | Specimen | Performing Laboratory | + + + | Blood | | + + + + + | Narrative | + + | The following orders were created for panel order CBC ONLY. | | Procedure | | Abnormality Status | | --------- | | ------ CBC (HEMOGRAM) | | ONLY[[id number]] Abnormal Final | | result Please view [...] + + | PRODUCT UNIT # | [id number] | | + + + + | UNIT ABO | O | | + + + + | UNIT RH | POS | | + + + + | STATUS OF UNIT | Presumed Transfused | | + + + + | EXPIRATION DATE | [id number] | | + + + + | BLOOD TYPE BARCODE | 5100 | | + + + + | BLOOD PRODUCT CODE | [id number] | | + + + + + + + | Specimen | Performing Laboratory | + + + | | [facility], TRANSFUSION MEDICINE [address] [facility] | | | [place] [address] | + + + CBC AND AUTO [...] | + + + | Blood | [facility], CORE [address] [facility] | | | [place] [address] | + + + INR (07/22/2017 10:50 PM) + +-------+ + | Component | Value | Ref Range | + +-------+ + | INR | 1.13 | 0.90 - 1.20 INR | + +-------+ + + + + | Specimen | Performing Laboratory | + + + | Blood | [facility], CORE [address] [facility] | | | [place] [address] | + + + + + | [...] | + + + | Blood | [facility], CORE [address] [facility] | | | [place] [address] | + + + MAGNESIUM, PLASMA (07/22/2017 10:50 PM) + +-------+ + | Component | Value | Ref Range | + +-------+ + | MAGNESIUM,PLASMA | 2.0 | 1.6 - 2.6 mg/dL | + +-------+ + + + + | Specimen | Performing Laboratory | + + + | Blood | [facility], CORE [address] [facility] | | | [place] [address] | + + + + + | [...] | ------ CBC AND AUTO | | DIFF[[id number]] Abnormal Final | | result Please view [...] | >60 | >60 mL/min | | VINCENTIAN | | | + + + + | EGFR NON | >60 | >60 mL/min | | -VINCENTIAN | | | + + + + [...] | + + + | Blood | [facility] [address] | | | [place] [address] | + + + + + | [...] + + | Swab - Rectum | [facility], CORE [address] [facility] [address] | | | [place] [address] | + + + PRODUCT - RED CELLS LEUKOREDUCED (07/22/2017 2:36 AM) + + + + | Component | Value | Ref Range | + + + + | PRODUCT DESCRIPTION | -1 RED BLOOD CELLS ADENINE-SALINE ADDED | | | | LEUKOCYT | | + + + + | PRODUCT UNIT # | [id number] | | + + + + | UNIT ABO | O | | + + + + | UNIT RH | POS | | + + + + | STATUS OF UNIT | Presumed Transfused | | + + + + | EXPIRATION DATE | [id number] | | + + + + | BLOOD TYPE BARCODE | 5100 | | + + + + | BLOOD PRODUCT CODE | [id number] | | + + + + + + + | Specimen | Performing Laboratory | + + + | | [facility] SERVICES, TRANSFUSION MEDICINE [address] [facility] [address] | | | [place] [address] | + + + PRODUCT - PLATELET PHERESIS LEUKOREDUCED (07/22/2017 2:36 AM) + + + + | Component | Value | Ref Range | + + + + | PRODUCT DESCRIPTION | PLATELETS PHERESIS, LEUKOCYTE REDUCED, | | | | IRRADIATED | | + + + + | PRODUCT UNIT # | [id number] | | + + + + | UNIT ABO | O | | + + + + | UNIT RH | POS | | + + + + | STATUS OF UNIT | Presumed Transfused | | + + + + | EXPIRATION DATE | [id number] | | + + + + | BLOOD TYPE BARCODE | 5100 | | + + + + | BLOOD PRODUCT CODE | [id number] | | + + + + + + + | Specimen | Performing Laboratory | + + + | | [facility] [address] [place] [address] | | | [place] [address] | + + + ANTIBODY SCREEN (07/22/2017 12:35 AM) + + + + | Component | Value | Ref Range | + + + + | Antibody Screen | Negative | | + + + + + + + | Specimen | Performing Laboratory | + + + | Blood | [facility] SERVICES, TRANSFUSION MEDICINE [address] [facility] | | | [place] [address] | + + + ABO & RH [...] | + + + | Blood | [facility], TRANSFUSION MEDICINE [address] [facility] | | | [place] [address] | + + + TYPE AND SCREEN [...] | ------ ABO & RH | | TYPE[[id number]] F | | inal result ANTIBODY | | SCREEN[[id number]] Fin | | al result Please view [...] | + + + | Blood | [facility], CORE [address] | | | [place] [address] | + + + COAGULOPATHY PANEL (INR,APTT,FIBRINOGEN) [...] | + + + | Blood | [facility], CORE [address] | | | [place] [address] | + + + + + | [...] | + + + | Blood | [facility], CORE [address] [facility] | | | [place], [place] [address] | + + + URIC ACID, PLASMA (07/22/2017 12:35 AM) + +---------+ + | Component | Value | Ref Range | + +---------+ + | URIC ACID, PLASMA | 2.2 (L) | 2.5 - 6.2 mg/dL | | (LAB) | | | + +---------+ + + + + | Specimen | Performing Laboratory | + + + | Blood | [facility], CORE [address] [facility] | | | [place] [address] | + + + PHOSPHORUS, PLASMA (07/22/2017 12:35 AM) + +-------+ + | Component | Value | Ref Range | + +-------+ + | PHOSPHORUS, PLASMA | 3.2 | 2.4 - 4.7 mg/dL | | (LAB) | | | + +-------+ + + + + | Specimen | Performing Laboratory | + + + | Blood | [facility], CORE [address] [place] [address] | | | [place] [address] | + + + MAGNESIUM, PLASMA (07/22/2017 12:35 AM) + +-------+ + | Component | Value | Ref Range | + +-------+ + | MAGNESIUM,PLASMA | 2.2 | 1.6 - 2.6 mg/dL | + +-------+ + + + + | Specimen | Performing Laboratory | + + + | Blood | [facility], CORE [address] [place] [address] | | | [place] [address] | + + + + + | [...] | ------ CBC AND AUTO | | DIFF[[id number]] Abnormal Final | | result Please view [...] | >60 | >60 mL/min | | VINCENTIAN | | | + + + + | EGFR NON | >60 | >60 mL/min | | -VINCENTIAN | | | + + + + [...] | + + + | Blood | [facility], [facility] [address] [facility] | | | [place] [address] | + + + + + | [...] + | Blood - PICC purple | [facility], CORE [address] [facility] | | port | [place] [address] | + + + CULTURE, BLOOD BACTI [...] ------ CULTURE, BLOOD | | BACTI & Y...[[id number]] Final | | result Please view results [...] | + + + | Blood | [facility], CORE [address] | | | [place] [address] | + + + + + | [...] + + + | Blood | [facility], CORE [address] [place] [address] | | | [place] [address] | + + + INR (07/20/2017 11:00 PM) + +-------+ + | Component | Value | Ref Range | + +-------+ + | INR | 1.14 | 0.90 - 1.20 INR | + +-------+ + + + + | Specimen | Performing Laboratory | + + + | Blood | [facility], CORE [address] | | | [place] [address] | + + + + + | [...] | + + + | Blood | [facility], CORE [address] [place] [address] | | | [place] [address] | + + + MAGNESIUM, PLASMA (07/20/2017 11:00 PM) + +-------+ + | Component | Value | Ref Range | + +-------+ + | MAGNESIUM,PLASMA | 1.6 | 1.6 - 2.6 mg/dL | + +-------+ + + + + | Specimen | Performing Laboratory | + + + | Blood | [facility], CORE [address] [facility] | | | [place], [place] [address] | + + + + + | [...] | ------ CBC AND AUTO | | DIFF[[id number]] Abnormal Final | | result Please view [...] | >60 | >60 mL/min | | VINCENTIAN | | | + +---------+ + | EGFR NON | >60 | >60 mL/min | | -VINCENTIAN | | | + +---------+ + | [...] | + + + | Blood | [facility], CORE [address] [facility] [address] | | | [place] [address] | + + + + + | [...] Laboratory | + + + | | [facility] RAD[facility]OLOG[facility] VOICE RECOGNITION | + + [...] | + + + | Urine | [facility], CORE [address] [facility] [address] | | | [place], [place] [address] | + + + URINE SCREEN FOR CULTURE (07/20/2017 8:00 PM) + + + + | Component | Value | Ref Range | + + + + | CULT, URINE SCREEN | Negative | Negative | + + + + + + + | Specimen | Performing Laboratory | + + + | Urine | [facility], [facility] [address] [facility] [address] [address] | | | [place] [address] | + + + + + | [...] + + | Blood - Peripheral | [facility], CORE [address] [facility] | | | [place] [address] | + + + CULTURE, BLOOD BACTI [...] ------ CULTURE, BLOOD | | BACTI & Y...[[id number]] Final | | result Please view results [...] + | Blood - Blue port | [facility] [place] [address] [place] [address] | | lumen | [id number] | + + + + + | [...] + | Blood - Blue port | [facility], CORE [address] | | lumen | [place] [address] | + + + + + | [...] | | ------ BLOOD CULTURE | | WORKUP[[id number]] Abnormal Final | | result CULTURE, BLOOD BACTI & | | Y...[[id number]] Abnormal Final result | | Please view [...] + + | PRODUCT UNIT # | [id number] | | + + + + | UNIT ABO | O | | + + + + | UNIT RH | POS | | + + + + | STATUS OF UNIT | Presumed Transfused | | + + + + | EXPIRATION DATE | [id number] | | + + + + | BLOOD TYPE BARCODE | 5100 | | + + + + | BLOOD PRODUCT CODE | [id number] | | + + + + + + + | Specimen | Performing Laboratory | + + + | | [facility] SERVICES, TRANSFUSION MEDICINE [address] [facility] | | | [address] [place] [address] | + + + CBC AND AUTO [...] + + + | Blood | [facility], [facility] [facility] [address] | | | [place] [address] | + + + INR (07/19/2017 11:05 PM) + +-------+ + | Component | Value | Ref Range | + +-------+ + | INR | 1.08 | 0.90 - 1.20 INR | + +-------+ + + + + | Specimen | Performing Laboratory | + + + | Blood | [facility] LAB[facility]ATORY [facility], CORE [address] [facility] | | | [place] [address] | + + + + + | [...] | + + + | Blood | [facility] SERVICES, CORE [address] [place] [address] | | | [place] [address] | + + + MAGNESIUM, PLASMA (07/19/2017 11:05 PM) + +-------+ + | Component | Value | Ref Range | + +-------+ + | MAGNESIUM,PLASMA | 2.3 | 1.6 - 2.6 mg/dL | + +-------+ + + + + | Specimen | Performing Laboratory | + + + | Blood | [facility], CORE [address] [facility] | | | [place] [address] | + + + + + | [...] | ------ CBC AND AUTO | | DIFF[[id number]] Abnormal Final | | result Please view [...] | >60 | >60 mL/min | | VINCENTIAN | | | + + + + | EGFR NON | >60 | >60 mL/min | | -VINCENTIAN | | | + + + + [...] | + + + | Blood | [facility], CORE [address] [facility] | | | [place] [address] | + + + + + | [...] | + + + | Blood | [facility], CORE [address] [facility] | | | [place] [address] | + + + INR (07/18/2017 11:05 PM) + +-------+ + | Component | Value | Ref Range | + +-------+ + | INR | 1.10 | 0.90 - 1.20 INR | + +-------+ + + + + | Specimen | Performing Laboratory | + + + | Blood | [facility] LAB[facility]ATORY [facility], CORE [address] | | | [place] [address] | + + + + + | [...] | + + + | Blood | [facility] SERVICES, CORE [address] [facility] | | | [place] [address] | + + + MAGNESIUM, PLASMA (07/18/2017 11:05 PM) + +-------+ + | Component | Value | Ref Range | + +-------+ + | MAGNESIUM,PLASMA | 1.6 | 1.6 - 2.6 mg/dL | + +-------+ + + + + | Specimen | Performing Laboratory | + + + | Blood | [facility], CORE [address] | | | [place] [address] | + + + + + | [...] | ------ CBC AND AUTO | | DIFF[[id number]] Abnormal Final | | result Please view [...] | >60 | >60 mL/min | | VINCENTIAN | | | + + + + | EGFR NON | >60 | >60 mL/min | | -VINCENTIAN | | | + + + + [...] + + + | Blood | [facility], CORE [address] [facility] [address] | | | [place] [address] | + + + + + | [...] + + | PRODUCT UNIT # | [id number] | | + + + + | UNIT ABO | O | | + + + + | UNIT RH | POS | | + + + + | STATUS OF UNIT | Presumed Transfused | | + + + + | EXPIRATION DATE | [id number] | | + + + + | BLOOD TYPE BARCODE | 5100 | | + + + + | BLOOD PRODUCT CODE | [id number] | | + + + + + + + | Specimen | Performing Laboratory | + + + | | [facility] SERVICES, TRANSFUSION MEDICINE [address] [facility] | | | [place] [address] | + + + PRODUCT - RED CELLS LEUKOREDUCED (07/18/2017 12:50 AM) + + + + | Component | Value | Ref Range | + + + + | PRODUCT DESCRIPTION | -1 RED BLOOD CELLS ADENINE-SALINE ADDED | | | | LEUKOCYT | | + + + + | PRODUCT UNIT # | [id number] | | + + + + | UNIT ABO | O | | + + + + | UNIT RH | POS | | + + + + | STATUS OF UNIT | Presumed Transfused | | + + + + | EXPIRATION DATE | [id number] | | + + + + | BLOOD TYPE BARCODE | 5100 | | + + + + | BLOOD PRODUCT CODE | [id number] | | + + + + + + + | Specimen | Performing Laboratory | + + + | | [facility] SERVICES, TRANSFUSION MEDICINE [address] | | | [place] [address] | + + + FIBRINOGEN (07/17/2017 11:47 PM) + +---------+ + | Component | Value | Ref Range | + +---------+ + | FIBRINOGEN LEVEL | 478 (H) | 200 - 450 mg/dL | + +---------+ + + + + | Specimen | Performing Laboratory | + + + | Blood | [facility] LABORATORY [facility], CORE [address] | | | [place] [address] | + + + APTT (ACT. PART. THROMBO TIME) (07/17/2017 11:47 PM) + + + + | Component | Value | Ref Range | + + + + | APTT | 37.5 (H) | 26.0 - 36.0 seconds | + + + + + + + | Specimen | Performing Laboratory | + + + | Blood | [facility], CORE [address] [facility] | | | [place] [address] | + + + + + | [...] + + + | Blood | [facility], CORE [address] [place] [address] | | | [place], [place] [address] | + + + URIC ACID, PLASMA (07/17/2017 11:47 PM) + +---------+ + | Component | Value | Ref Range | + +---------+ + | URIC ACID, PLASMA | 2.2 (L) | 2.5 - 6.2 mg/dL | | (LAB) | | | + +---------+ + + + + | Specimen | Performing Laboratory | + + + | Blood | [facility], CORE [address] [facility] | | | [place] [address] | + + + CBC AND AUTO [...] | + + + | Blood | [facility], CORE [address] | | | [place] [address] | + + + INR (07/17/2017 11:47 PM) + +-------+ + | Component | Value | Ref Range | + +-------+ + | INR | 1.10 | 0.90 - 1.20 INR | + +-------+ + + + + | Specimen | Performing Laboratory | + + + | Blood | [facility], CORE [address] | | | [place] [address] | + + + + + | [...] | + + + | Blood | [facility], CORE [address] [facility] | | | [place] [address] | + + + MAGNESIUM, PLASMA (07/17/2017 11:47 PM) + +-------+ + | Component | Value | Ref Range | + +-------+ + | MAGNESIUM,PLASMA | 1.7 | 1.6 - 2.6 mg/dL | + +-------+ + + + + | Specimen | Performing Laboratory | + + + | Blood | [facility], CORE [address] [facility] | | | [place] [address] | + + + + + | [...] | ------ CBC AND AUTO | | DIFF[[id number]] Abnormal Final | | result Please view [...] | >60 | >60 mL/min | | VINCENTIAN | | | + + + + | EGFR NON | >60 | >60 mL/min | | -VINCENTIAN | | | + + + + [...] | + + + | Blood | [facility], CORE [address] | | | [place] [address] | + + + + + | [...] | + + + | Blood | [facility], [facility] MEDICINE [address] [facility] | | | [place] [address] | + + + ABO & RH [...] + + + | Blood | [facility], TRANSF[facility]ION MEDICINE [address] [place] [address] | | | [place] [address] | + + + TYPE AND SCREEN [...] | ------ ABO & RH | | TYPE[[id number]] F | | inal result ANTIBODY | | SCREEN[[id number]] Fin | | al result Please view [...] | + + + | Blood | [facility], CORE [address] | | | [place] [address] | + + + INR (07/16/2017 11:48 PM) + +-------+ + | Component | Value | Ref Range | + +-------+ + | INR | 1.09 | 0.90 - 1.20 INR | + +-------+ + + + + | Specimen | Performing Laboratory | + + + | Blood | [facility] LABORATORY SERVICES, CORE [address] [facility] | | | [place] [address] | + + + + + | [...] | + + + | Blood | [facility] LABORATORY SERVICES, CORE [address] [place] [address] | | | [place] [address] | + + + MAGNESIUM, PLASMA (07/16/2017 11:48 PM) + +-------+ + | Component | Value | Ref Range | + +-------+ + | MAGNESIUM,PLASMA | 1.7 | 1.6 - 2.6 mg/dL | + +-------+ + + + + | Specimen | Performing Laboratory | + + + | Blood | [facility] LABORATORY [facility], CORE [address] [place] [address] | | | [place] [address] | + + + + + | [...] | ------ CBC AND AUTO | | DIFF[[id number]] Abnormal Final | | result Please view [...] | >60 | >60 mL/min | | VINCENTIAN | | | + + + + | EGFR NON | >60 | >60 mL/min | | -VINCENTIAN | | | + + + + [...] | + + + | Blood | [facility] LABORATORY SERVICES, CORE [address] | | | [place] [address] | + + + + + | [...] | + + + | Blood | [facility] LABORATORY SERVICES, CORE [address] [place] [address] [place] | | | [place] [address] | + + + CBC AND AUTO [...] | + + + | Blood | [facility] LABORATORY SERVICES, CORE [address] [facility] | | | [place] [address] | + + + INR (07/15/2017 11:51 PM) + +-------+ + | Component | Value | Ref Range | + +-------+ + | INR | 1.05 | 0.90 - 1.20 INR | + +-------+ + + + + | Specimen | Performing Laboratory | + + + | Blood | [facility] LABORATORY SERVICES, CORE [address] [facility] | | | [place] [address] | + + + + + | [...] | + + + | Blood | [facility] LABORATORY SERVICES, CORE [address] | | | [place] [address] | + + + MAGNESIUM, PLASMA (07/15/2017 11:51 PM) + +-------+ + | Component | Value | Ref Range | + +-------+ + | MAGNESIUM,PLASMA | 1.7 | 1.6 - 2.6 mg/dL | + +-------+ + + + + | Specimen | Performing Laboratory | + + + | Blood | [facility] LABORATORY SERVICES, CORE [address] | | | [place] [address] | + + + + + | [...] | ------ CBC AND AUTO | | DIFF[[id number]] Abnormal Final | | result Please view [...] | >60 | >60 mL/min | | VINCENTIAN | | | + + + + | EGFR NON | >60 | >60 mL/min | | -VINCENTIAN | | | + + + + [...] + + + | Blood | [facility], CORE [address] | | | [place] [address] | + + + + + | [...] + + | Swab - Rectum | [facility] LABORATORY SERVICES, CORE [address] [facility] [address] | | | [place] [address] | + + + PRODUCT - RED CELLS LEUKOREDUCED (07/15/2017 1:12 AM) + + + + | Component | Value | Ref Range | + + + + | PRODUCT DESCRIPTION | -1 RED BLOOD CELLS ADENINE-SALINE ADDED | | | | LEUKOCYT | | + + + + | PRODUCT UNIT # | [id number] | | + + + + | UNIT ABO | O | | + + + + | UNIT RH | POS | | + + + + | STATUS OF UNIT | Presumed Transfused | | + + + + | EXPIRATION DATE | [id number] | | + + + + | BLOOD TYPE BARCODE | 5100 | | + + + + | BLOOD PRODUCT CODE | [id number] | | + + + + + + + | Specimen | Performing Laboratory | + + + | | [facility] LABORATORY SERVICES, TRANSFUSION MEDICINE [address] [facility] | | | [place] [address] | + + + PRODUCT - PLATELET PHERESIS LEUKOREDUCED (07/15/2017 1:12 AM) + + + + | Component | Value | Ref Range | + + + + | PRODUCT DESCRIPTION | PLATELETS PHERESIS, LEUKOCYTE REDUCED, | | | | IRRADIATED | | + + + + | PRODUCT UNIT # | [id number] | | + + + + | UNIT ABO | O | | + + + + | UNIT RH | POS | | + + + + | STATUS OF UNIT | Presumed Transfused | | + + + + | EXPIRATION DATE | [id number] | | + + + + | BLOOD TYPE BARCODE | 5100 | | + + + + | BLOOD PRODUCT CODE | [id number] | | + + + + + + + | Specimen | Performing Laboratory | + + + | | [facility] LABORATORY SERVICES, TRANSFUSION MEDICINE [address] [facility] | | | [place] [address] | + + + COAGULOPATHY PANEL (INR,APTT,FIBRINOGEN) [...] | + + + | Blood | [facility] LABORATORY [facility], CORE [address] [facility] | | | [place] [address] | + + + + + | [...] | + + + | Blood | [facility] LABORATORY SERVICES, CORE [address] | | | [place] [address] | + + + URIC ACID, PLASMA (07/15/2017) + +---------+ + | Component | Value | Ref Range | + +---------+ + | URIC ACID, PLASMA | 1.3 (L) | 2.5 - 6.2 mg/dL | | (LAB) | | | + +---------+ + + + + | Specimen | Performing Laboratory | + + + | Blood | [facility] LABORATORY SERVICES, CORE [address] [facility] | | | [place] [address] | + + + CBC AND AUTO [...] | + + + | Blood | [facility] LABORATORY SERVICES, CORE [address] [place] [address] | | | [place] [address] | + + + PHOSPHORUS, PLASMA (07/15/2017) + +-------+ + | Component | Value | Ref Range | + +-------+ + | PHOSPHORUS, PLASMA | 2.6 | 2.4 - 4.7 mg/dL | | (LAB) | | | + +-------+ + + + + | Specimen | Performing Laboratory | + + + | Blood | [facility] LABORATORY SERVICES, CORE [address] [facility] | | | [place] [address] | + + + MAGNESIUM, PLASMA (07/15/2017) + +-------+ + | Component | Value | Ref Range | + +-------+ + | MAGNESIUM,PLASMA | 1.8 | 1.6 - 2.6 mg/dL | + +-------+ + + + + | Specimen | Performing Laboratory | + + + | Blood | [facility] LABORATORY [facility], CORE [address] [facility] | | | [place] [address] | + + + + + | [...] | ------ CBC AND AUTO | | DIFF[[id number]] Abnormal Final | | result Please view [...] | >60 | >60 mL/min | | VINCENTIAN | | | + + + + | EGFR NON | >60 | >60 mL/min | | -VINCENTIAN | | | + + + + [...] | + + + | Blood | [facility] LABORATORY SERVICES, [place] | | | [place] [address] | + + + + + | [...] | + + + | Blood | [facility] LABORATORY SERVICES, CORE [address] [facility] | | | [place] [address] | + + + INR (07/13/2017 11:30 PM) + +-------+ + | Component | Value | Ref Range | + +-------+ + | INR | 1.05 | 0.90 - 1.20 INR | + +-------+ + + + + | Specimen | Performing Laboratory | + + + | Blood | [facility], CORE [address] [place] [address] | | [facility] [address] | + + + + + | [...] | + + + | Blood | [facility] LABORATORY SERVICES, CORE [address] [facility] | | | [place] [address] | + + + MAGNESIUM, PLASMA (07/13/2017 11:30 PM) + +-------+ + | Component | Value | Ref Range | + +-------+ + | MAGNESIUM,PLASMA | 1.8 | 1.6 - 2.6 mg/dL | + +-------+ + + + + | Specimen | Performing Laboratory | + + + | Blood | [facility] LABORATORY SERVICES, CORE [address] | | | [place] [address] | + + + + + | [...] | ------ CBC AND AUTO | | DIFF[[id number]] Abnormal Final | | result Please view [...] | >60 | >60 mL/min | | VINCENTIAN | | | + + + + | EGFR NON | >60 | >60 mL/min | | -VINCENTIAN | | | + + + + [...] | + + + | Blood | [facility] LABORATORY SERVICES, CORE [address] [facility] | | | [place] [address] | + + + + + | [...] | + + + | Blood | [facility] LABORATORY SERVICES, TRANSFUSION MEDICINE [address] [place] [address] | | | [place] [address] | + + + ABO & RH [...] | + + + | Blood | [facility] LABORATORY SERVICES, TRANSFUSION MEDICINE [address] [facility] | | | [place] [address] | + + + TYPE AND SCREEN [...] | ------ ABO & RH | | TYPE[[id number]] F | | inal result ANTIBODY | | SCREEN[[id number]] Fin | | al result Please view [...] + + | PRODUCT UNIT # | [id number] | | + + + + | UNIT ABO | O | | + + + + | UNIT RH | POS | | + + + + | STATUS OF UNIT | Presumed Transfused | | + + + + | EXPIRATION DATE | [id number] | | + + + + | BLOOD TYPE BARCODE | 5100 | | + + + + | BLOOD PRODUCT CODE | [id number] | | + + + + + + + | Specimen | Performing Laboratory | + + + | | [facility] LABORATORY SERVICES, TRANSFUSION MEDICINE [address] [place] [address] | | | [place] [address] | + + + CBC AND AUTO [...] | + + + | Blood | [facility] LABORATORY SERVICES, CORE [address] | | | [place] [address] | + + + INR (07/12/2017 11:31 PM) + +-------+ + | Component | Value | Ref Range | + +-------+ + | INR | 1.05 | 0.90 - 1.20 INR | + +-------+ + + + + | Specimen | Performing Laboratory | + + + | Blood | [facility] LABORATORY SERVICES, CORE [address] | | | [place] [address] | + + + + + | [...] + + + | Blood | [facility] SERVICES, CORE [address] [place] [address] | | | [place] [address] | + + + MAGNESIUM, PLASMA (07/12/2017 11:31 PM) + +-------+ + | Component | Value | Ref Range | + +-------+ + | MAGNESIUM,PLASMA | 1.8 | 1.6 - 2.6 mg/dL | + +-------+ + + + + | Specimen | Performing Laboratory | + + + | Blood | [facility], CORE [address] [facility] | | | [place] [address] | + + + + + | [...] | ------ CBC AND AUTO | | DIFF[[id number]] Abnormal Final | | result Please view [...] | >60 | >60 mL/min | | VINCENTIAN | | | + + + + | EGFR NON | >60 | >60 mL/min | | -VINCENTIAN | | | + + + + [...] | + + + | Blood | [facility] LABORATORY [facility], [place] [address] | | | [place] [address] | + + + + + | [...] + + | PRODUCT UNIT # | [id number] | | + + + + | UNIT ABO | A | | + + + + | UNIT RH | POS | | + + + + | STATUS OF UNIT | Presumed Transfused | | + + + + | EXPIRATION DATE | [id number] | | + + + + | BLOOD TYPE BARCODE | 6200 | | + + + + | BLOOD PRODUCT CODE | [id number] | | + + + + + + + | Specimen | Performing Laboratory | + + + | | [facility] LABORATORY SERVICES, TRANSFUSION MEDICINE [address] [facility] | | | [place] [address] | + + + CBC AND AUTO [...] | + + + | Blood | [facility] LABORATORY SERVICES, CORE [address] | | | [place] [address] | + + + INR (07/12/2017 1:04 AM) + +-------+ + | Component | Value | Ref Range | + +-------+ + | INR | 1.04 | 0.90 - 1.20 INR | + +-------+ + + + + | Specimen | Performing Laboratory | + + + | Blood | [facility] LABORATORY SERVICES, CORE [address] [facility] [address] | | | [place] [address] | + + + + + | [...] | + + + | Blood | [facility] LABORATORY SERVICES, CORE [address] [place] [address] | | | [place] [address] | + + + URIC ACID, PLASMA (07/12/2017 1:04 AM) + +---------+ + | Component | Value | Ref Range | + +---------+ + | URIC ACID, PLASMA | 1.3 (L) | 2.5 - 6.2 mg/dL | | (LAB) | | | + +---------+ + + + + | Specimen | Performing Laboratory | + + + | Blood | [facility] SERVICES, CORE [address] [facility] | | | [place] [address] | + + + PHOSPHORUS, PLASMA (07/12/2017 1:04 AM) + +-------+ + | Component | Value | Ref Range | + +-------+ + | PHOSPHORUS, PLASMA | 3.1 | 2.4 - 4.7 mg/dL | | (LAB) | | | + +-------+ + + + + | Specimen | Performing Laboratory | + + + | Blood | [facility] LABORATORY SERVICES, CORE [address] | | | [place] [address] | + + + MAGNESIUM, PLASMA (07/12/2017 1:04 AM) + +-------+ + | Component | Value | Ref Range | + +-------+ + | MAGNESIUM,PLASMA | 2.0 | 1.6 - 2.6 mg/dL | + +-------+ + + + + | Specimen | Performing Laboratory | + + + | Blood | [facility] LABORATORY SERVICES, CORE [address] [facility] | | | [place], [place] [address] | + + + + + | [...] | ------ CBC AND AUTO | | DIFF[[id number]] Abnormal Final | | result Please view [...] | >60 | >60 mL/min | | VINCENTIAN | | | + + + + | EGFR NON | >60 | >60 mL/min | | -VINCENTIAN | | | + + + + [...] | + + + | Blood | [facility] LABORATORY SERVICES, CORE [address] [facility] | | | [place] [address] | + + + + + | [...] + + | PRODUCT UNIT # | [id number] | | + + + + | UNIT ABO | O | | + + + + | UNIT RH | POS | | + + + + | STATUS OF UNIT | Presumed Transfused | | + + + + | EXPIRATION DATE | [id number] | | + + + + | BLOOD TYPE BARCODE | 5100 | | + + + + | BLOOD PRODUCT CODE | [id number] | | + + + + + + + | Specimen | Performing Laboratory | + + + | | [facility] LABORATORY SERVICES, TRANSFUSION MEDICINE [address] [facility] | | | [place] [address] | + + + INR (07/10/2017 11:54 PM) + +-------+ + | Component | Value | Ref Range | + +-------+ + | INR | 1.14 | 0.90 - 1.20 INR | + +-------+ + + + + | Specimen | Performing Laboratory | + + + | Blood | [facility] LABORATORY SERVICES, CORE [address] [facility] | | | [place] [address] | + + + + + | [...] | + + + | Blood | [facility] LABORATORY SERVICES, CORE [address] [place] [address] | | | [place] [address] | + + + LDH TOTAL, PLASMA [...] | + + + | Blood | [facility] LABORATORY SERVICES, CORE [address] [facility] [address] | | | [place] [address] | + + + URIC ACID, PLASMA (07/10/2017 11:53 PM) + +---------+ + | Component | Value | Ref Range | + +---------+ + | URIC ACID, PLASMA | 1.4 (L) | 2.5 - 6.2 mg/dL | | (LAB) | | | + +---------+ + + + + | Specimen | Performing Laboratory | + + + | Blood | [facility] LABORAT[facility] SERVICES, CORE [address] [facility] | | | [place] [address] | + + + PHOSPHORUS, PLASMA (07/10/2017 11:53 PM) + +-------+ + | Component | Value | Ref Range | + +-------+ + | PHOSPHORUS, PLASMA | 2.8 | 2.4 - 4.7 mg/dL | | (LAB) | | | + +-------+ + + + + | Specimen | Performing Laboratory | + + + | Blood | [facility] LABORATORY SERVICES, CORE [address] | | | [place] [address] | + + + MAGNESIUM, PLASMA (07/10/2017 11:53 PM) + +-------+ + | Component | Value | Ref Range | + +-------+ + | MAGNESIUM,PLASMA | 2.0 | 1.6 - 2.6 mg/dL | + +-------+ + + + + | Specimen | Performing Laboratory | + + + | Blood | [facility] LABORATORY SERVICES, CORE [address] [place] [address] | | | [place] [address] | + + + + + | [...] | ------ CBC AND AUTO | | DIFF[[id number]] Abnormal Final | | result Please view [...] | >60 | >60 mL/min | | VINCENTIAN | | | + + + + | EGFR NON | >60 | >60 mL/min | | -VINCENTIAN | | | + + + + [...] | + + + | Blood | [facility] LABORATORY SERVICES, CORE [address] [place] [address] | | | [place] [address] | + + + + + | [...] | + + + | Blood | [facility] LABORATORY SERVICES, CORE [address] [facility] [address] | | | [place] [address] | + + + INR (07/10/2017 12:12 AM) + +-------+ + | Component | Value | Ref Range | + +-------+ + | INR | 1.07 | 0.90 - 1.20 INR | + +-------+ + + + + | Specimen | Performing Laboratory | + + + | Blood | [facility] LABORATORY SERVICES, CORE [address] | | | [place] [address] | + + + + + | [...] | + + + | Blood | [facility] LABORATORY SERVICES, CORE [address] [place] [address] | | | [place] [address] | + + + URIC ACID, PLASMA (07/10/2017 12:12 AM) + +---------+ + | Component | Value | Ref Range | + +---------+ + | URIC ACID, PLASMA | 1.4 (L) | 2.5 - 6.2 mg/dL | | (LAB) | | | + +---------+ + + + + | Specimen | Performing Laboratory | + + + | Blood | [facility], [address] | | | [place] [address] | + + + PHOSPHORUS, PLASMA (07/10/2017 12:12 AM) + +-------+ + | Component | Value | Ref Range | + +-------+ + | PHOSPHORUS, PLASMA | 2.9 | 2.4 - 4.7 mg/dL | | (LAB) | | | + +-------+ + + + + | Specimen | Performing Laboratory | + + + | Blood | [facility] LABORATORY [facility], CORE [address] [facility] | | | [place] [address] | + + + MAGNESIUM, PLASMA (07/10/2017 12:12 AM) + +-------+ + | Component | Value | Ref Range | + +-------+ + | MAGNESIUM,PLASMA | 2.1 | 1.6 - 2.6 mg/dL | + +-------+ + + + + | Specimen | Performing Laboratory | + + + | Blood | [facility], CORE [address] [facility] | | | [place] [address] | + + + + + | [...] | ------ CBC AND AUTO | | DIFF[[id number]] Abnormal Final | | result Please view [...] | >60 | >60 mL/min | | VINCENTIAN | | | + + + + | EGFR NON | >60 | >60 mL/min | | -VINCENTIAN | | | + + + + [...] | + + + | Blood | [facility] LABORATORY [facility], CORE [address] [facility] [address] | | | [place] [address] | + + + + + | [...] + + | PRODUCT UNIT # | [id number] | | + + + + | UNIT ABO | O | | + + + + | UNIT RH | POS | | + + + + | STATUS OF UNIT | Presumed Transfused | | + + + + | EXPIRATION DATE | [id number] | | + + + + | BLOOD TYPE BARCODE | 5100 | | + + + + | BLOOD PRODUCT CODE | [id number] | | + + + + + + + | Specimen | Performing Laboratory | + + + | | [facility] LABORATORY SERVICES, TRANSFUSION MEDICINE [address] [facility] | | | [place] [address] | + + + PRODUCT - RED CELLS LEUKOREDUCED (07/09/2017 3:33 AM) + + + + | Component | Value | Ref Range | + + + + | PRODUCT DESCRIPTION | -1 RED BLOOD CELLS ADENINE-SALINE ADDED | | | | LEUKOCYT | | + + + + | PRODUCT UNIT # | [id number] | | + + + + | UNIT ABO | O | | + + + + | UNIT RH | POS | | + + + + | STATUS OF UNIT | Presumed Transfused | | + + + + | EXPIRATION DATE | [id number] | | + + + + | BLOOD TYPE BARCODE | 5100 | | + + + + | BLOOD PRODUCT CODE | [id number] | | + + + + + + + | Specimen | Performing Laboratory | + + + | | [facility] LABORATORY SERVICES, TRANSFUSION MEDICINE [address] | | | [place] [address] | + + + ANTIBODY SCREEN (07/09/2017 1:56 AM) + + + + | Component | Value | Ref Range | + + + + | Antibody Screen | Negative | | + + + + + + + | Specimen | Performing Laboratory | + + + | Blood | [facility] LABORATORY SERVICES, TRANSFUSION MEDICINE [address] | | | [address] [place] [address] | + + + ABO & RH [...] | + + + | Blood | [facility] LABORATORY SERVICES, TRANSFUSION MEDICINE [address] [facility] | | | [place] [address] | + + + TYPE AND SCREEN [...] | ------ ABO & RH | | TYPE[[id number]] F | | inal result ANTIBODY | | SCREEN[[id number]] Fin | | al result Please view [...] | + + + | Blood | [facility] LABORATORY SERVICES, CORE [address] [place] [address] | | | [place] [address] | + + + INR (07/09/2017 1:20 AM) + +-------+ + | Component | Value | Ref Range | + +-------+ + | INR | 1.08 | 0.90 - 1.20 INR | + +-------+ + + + + | Specimen | Performing Laboratory | + + + | Blood | [facility], CORE [address] [facility] | | | [place] [address] | + + + + + | [...] | + + + | Blood | [facility] LABORATORY SERVICES, CORE [address] | | | [place] [address] | + + + URIC ACID, PLASMA (07/09/2017 1:20 AM) + +---------+ + | Component | Value | Ref Range | + +---------+ + | URIC ACID, PLASMA | 1.3 (L) | 2.5 - 6.2 mg/dL | | (LAB) | | | + +---------+ + + + + | Specimen | Performing Laboratory | + + + | Blood | [facility] LABORATORY SERVICES, CORE [address] | | | [place] [address] | + + + PHOSPHORUS, PLASMA (07/09/2017 1:20 AM) + +-------+ + | Component | Value | Ref Range | + +-------+ + | PHOSPHORUS, PLASMA | 2.8 | 2.4 - 4.7 mg/dL | | (LAB) | | | + +-------+ + + + + | Specimen | Performing Laboratory | + + + | Blood | [facility] LABORATORY SERVICES, [facility] [address] [facility] | | | [place] [address] | + + + MAGNESIUM, PLASMA (07/09/2017 1:20 AM) + +-------+ + | Component | Value | Ref Range | + +-------+ + | MAGNESIUM,PLASMA | 2.0 | 1.6 - 2.6 mg/dL | + +-------+ + + + + | Specimen | Performing Laboratory | + + + | Blood | [facility] LABORATORY SERVICES, CORE [address] | | | [place] [address] | + + + + + | [...] | ------ CBC AND AUTO | | DIFF[[id number]] Abnormal Final | | result Please view [...] | >60 | >60 mL/min | | VINCENTIAN | | | + + + + | EGFR NON | >60 | >60 mL/min | | -VINCENTIAN | | | + + + + [...] | + + + | Blood | [facility] LABORATORY SERVICES, CORE [address] [facility] | | | [place] [address] | + + + + + | [...] + + | Swab - Rectum | [facility] LAB[facility] SERVICES, CORE [address] [facility] | | | [place] [address] | + + + CAPILLARY BLOOD GLUCOSE [...] [address] | | | [place] [address] | + + + CAPILLARY BLOOD GLUCOSE [...] [address] | | | [place] [address] | + + + PRODUCT - PLATELET PHERESIS LEUKOREDUCED (07/08/2017 3:39 AM) + + + + | Component | Value | Ref Range | + + + + | PRODUCT DESCRIPTION | APHERESIS | | | | PLATELETS,PAS,LEUKOREDUCED,IRRADIATED | | + + + + | PRODUCT UNIT # | [id number] | | + + + + | UNIT ABO | A | | + + + + | UNIT RH | POS | | + + + + | STATUS OF UNIT | Presumed Transfused | | + + + + | EXPIRATION DATE | [id number] | | + + + + | BLOOD TYPE BARCODE | 6200 | | + + + + | BLOOD PRODUCT CODE | [id number] | | + + + + + + + | Specimen | Performing Laboratory | + + + | | [facility], TRANSFUSION MEDICINE [address] [facility] | | | [place] [address] | + + + INR (07/08/2017 1:19 AM) + +-------+ + | Component | Value | Ref Range | + +-------+ + | INR | 1.07 | 0.90 - 1.20 INR | + +-------+ + + + + | Specimen | Performing Laboratory | + + + | Blood | [facility], CORE [address] [facility] | | | [facility] [address] | + + + + + | [...] | + + + | Blood | [facility], CORE [address] [facility] | | | [place], [place] [address] | + + + URIC ACID, PLASMA (07/08/2017 1:19 AM) + +---------+ + | Component | Value | Ref Range | + +---------+ + | URIC ACID, PLASMA | 1.4 (L) | 2.5 - 6.2 mg/dL | | (LAB) | | | + +---------+ + + + + | Specimen | Performing Laboratory | + + + | Blood | [facility], CORE [address] [facility] [address] | | | [facility] [place] [address] | + + + PHOSPHORUS, PLASMA (07/08/2017 1:19 AM) + +-------+ + | Component | Value | Ref Range | + +-------+ + | PHOSPHORUS, PLASMA | 3.1 | 2.4 - 4.7 mg/dL | | (LAB) | | | + +-------+ + + + + | Specimen | Performing Laboratory | + + + | Blood | [facility], CORE [address] [facility] | | | [place] [address] | + + + MAGNESIUM, PLASMA (07/08/2017 1:19 AM) + +-------+ + | Component | Value | Ref Range | + +-------+ + | MAGNESIUM,PLASMA | 2.0 | 1.6 - 2.6 mg/dL | + +-------+ + + + + | Specimen | Performing Laboratory | + + + | Blood | [facility], CORE [address] [facility] | | | [place], [place] [address] | + + + + + | [...] | >60 | >60 mL/min | | VINCENTIAN | | | + + + + | EGFR NON | >60 | >60 mL/min | | -VINCENTIAN | | | + + + + [...] Blood | [facility], CORE [address] [facility] | | | [place] [address] | + + + + + | [...] | + + + | Blood | [facility], CORE [address] [facility] | | | [facility] [address] | + + + CBC, WITH DIFFERENTIAL [...] | ------ CBC AND AUTO | | DIFF[[id number]] Abnormal Final | | result Please view [...] [address] | | | [place] [address] | + + + CAPILLARY BLOOD GLUCOSE (NO CHG), POC (07/07/2017 2:27 PM) + +---------+ + | Component | Value | Ref Range | + +---------+ + | BLOOD GLUCOSE, POC | 115 (H) | 70 - 99 mg/dL | + +---------+ + + + + | Specimen | Performing Laboratory | + + + | | [facility] [address] | | | [place] [address] | + + + CAPILLARY BLOOD GLUCOSE [...] [address] | | | [place] [address] | + + + PRODUCT - RED CELLS LEUKOREDUCED (07/07/2017 12:28 AM) + + + + | Component | Value | Ref Range | + + + + | PRODUCT DESCRIPTION | -1 RED BLOOD CELLS ADENINE-SALINE ADDED | | | | LEUKOCYT | | + + + + | PRODUCT UNIT # | [id number] | | + + + + | UNIT ABO | O | | + + + + | UNIT RH | POS | | + + + + | STATUS OF UNIT | Presumed Transfused | | + + + + | EXPIRATION DATE | [id number] | | + + + + | BLOOD TYPE BARCODE | 5100 | | + + + + | BLOOD PRODUCT CODE | [id number] | | + + + + + + + | Specimen | Performing Laboratory | + + + | | [facility], TRANSFUSION MEDICINE [address] | | | [place] [address] | + + + CBC AND AUTO [...] | + + + | Blood | [facility], CORE [address] [facility] | | | [facility] [address] | + + + CBC, WITH DIFFERENTIAL [...] | ------ CBC AND AUTO | | DIFF[[id number]] Abnormal Final | | result Please view [...] | + + + | Blood | [facility], CORE [address] [facility] | | | [place] [address] | + + + + + | [...] | + + + | Blood | [facility]OR[facility], CORE [address] | | | [place] [address] | + + + URIC ACID, PLASMA (07/06/2017 11:03 PM) + +---------+ + | Component | Value | Ref Range | + +---------+ + | URIC ACID, PLASMA | 1.4 (L) | 2.5 - 6.2 mg/dL | | (LAB) | | | + +---------+ + + + + | Specimen | Performing Laboratory | + + + | Blood | [facility], CORE [address] | | | [facility] [place] [address] | + + + PHOSPHORUS, PLASMA (07/06/2017 11:03 PM) + +-------+ + | Component | Value | Ref Range | + +-------+ + | PHOSPHORUS, PLASMA | 2.7 | 2.4 - 4.7 mg/dL | | (LAB) | | | + +-------+ + + + + | Specimen | Performing Laboratory | + + + | Blood | [facility], CORE [address] | | | [facility] [address] | + + + MAGNESIUM, PLASMA (07/06/2017 11:03 PM) + +-------+ + | Component | Value | Ref Range | + +-------+ + | MAGNESIUM,PLASMA | 2.1 | 1.6 - 2.6 mg/dL | + +-------+ + + + + | Specimen | Performing Laboratory | + + + | Blood | [facility]OR[facility], [facility] [address] | | | [place] [address] | + + + + + | [...] | >60 | >60 mL/min | | VINCENTIAN | | | + + + + | EGFR NON | >60 | >60 mL/min | | -VINCENTIAN | | | + + + + [...] | + + + | Blood | [facility] [employer] SERVICES, CORE [address] [facility] | | | [place] [address] | + + + + + | [...] [address] | | | [place] [address] | + + + CAPILLARY BLOOD GLUCOSE (NO CHG), POC (07/06/2017 6:44 PM) + +---------+ + | Component | Value | Ref Range | + +---------+ + | BLOOD GLUCOSE, POC | 131 (H) | 70 - 99 mg/dL | + +---------+ + + + + | Specimen | Performing Laboratory | + + + | | [facility], POINT OF CARE TESTS [address] | | | [place] [address] | + + + CAPILLARY BLOOD GLUCOSE (NO CHG), POC (07/06/2017 12:50 PM) + +---------+ + | Component | Value | Ref Range | + +---------+ + | BLOOD GLUCOSE, POC | 150 (H) | 70 - 99 mg/dL | + +---------+ + + + + | Specimen | Performing Laboratory | + + + | | [facility], POINT OF CARE TESTS [address] | | | [place] [address] | + + + CAPILLARY BLOOD GLUCOSE [...] [address] | | | [facility] [address] | + + + PRODUCT - PLATELET PHERESIS LEUKOREDUCED (07/06/2017 12:47 AM) + + + + | Component | Value | Ref Range | + + + + | PRODUCT DESCRIPTION | APHERESIS | | | | PLATELETS,PAS,LEUKOREDUCED,IRRADIATED | | + + + + | PRODUCT UNIT # | [id number] | | + + + + | UNIT ABO | O | | + + + + | UNIT RH | POS | | + + + + | STATUS OF UNIT | Presumed Transfused | | + + + + | EXPIRATION DATE | [id number] | | + + + + | BLOOD TYPE BARCODE | 5100 | | + + + + | BLOOD PRODUCT CODE | [id number] | | + + + + + + + | Specimen | Performing Laboratory | + + + | | [facility] SERVICES, TRANSFUSION MEDICINE [address] [place] [address] | | | [place] [address] | + + + CBC AND AUTO [...] | + + + | Blood | [facility] LABOR[facility] SERVICES, CORE [address] | | | [place] [address] | + + + INR (07/05/2017 11:25 PM) + +-------+ + | Component | Value | Ref Range | + +-------+ + | INR | 1.09 | 0.90 - 1.20 INR | + +-------+ + + + + | Specimen | Performing Laboratory | + + + | Blood | [facility] SERVICES, CORE [address] | | | [place] [address] | + + + + + | [...] | + + + | Blood | [facility] SERVICES, CORE [address] [place] [address] | | | [place] [address] | + + + URIC ACID, PLASMA (07/05/2017 11:25 PM) + +---------+ + | Component | Value | Ref Range | + +---------+ + | URIC ACID, PLASMA | 2.0 (L) | 2.5 - 6.2 mg/dL | | (LAB) | | | + +---------+ + + + + | Specimen | Performing Laboratory | + + + | Blood | [facility], CORE [address] [facility] | | | [place] [address] | + + + PHOSPHORUS, PLASMA (07/05/2017 11:25 PM) + +-------+ + | Component | Value | Ref Range | + +-------+ + | PHOSPHORUS, PLASMA | 2.6 | 2.4 - 4.7 mg/dL | | (LAB) | | | + +-------+ + + + + | Specimen | Performing Laboratory | + + + | Blood | [facility] SERVICES, CORE [address] [place] [address] | | | [place] [address] | + + + MAGNESIUM, PLASMA (07/05/2017 11:25 PM) + +-------+ + | Component | Value | Ref Range | + +-------+ + | MAGNESIUM,PLASMA | 2.2 | 1.6 - 2.6 mg/dL | + +-------+ + + + + | Specimen | Performing Laboratory | + + + | Blood | [facility], CORE [address] [facility] | | | [place] [address] | + + + + + | [...] | ------ CBC AND AUTO | | DIFF[[id number]] Abnormal Final | | result Please view [...] | >60 | >60 mL/min | | VINCENTIAN | | | + + + + | EGFR NON | >60 | >60 mL/min | | -VINCENTIAN | | | + + + + [...] | + + + | Blood | [facility] LABORATORY [facility], [facility] [address] | | | [place] [address] | + + + + + | [...] Laboratory | + + + | | [facility] POINT OF CARE TESTS [address] | | | [place] [address] | + + + CAPILLARY BLOOD GLUCOSE (NO CHG), POC (07/05/2017 7:46 PM) + +---------+ + | Component | Value | Ref Range | + +---------+ + | BLOOD GLUCOSE, POC | 177 (H) | 70 - 99 mg/dL | + +---------+ + + + + | Specimen | Performing Laboratory | + + + | | [facility], POINT OF CARE TESTS [address] | | | [place] [address] | + + + CAPILLARY BLOOD GLUCOSE [...] [address] | | | [place] [address] | + + + CBC AND AUTO [...] + + + | Blood | [facility], CORE [address] [facility] | | | [place] [address] | + + + LDH TOTAL, PLASMA [...] + + + | Blood | [facility], CORE [address] [place] [address] | | | [place] [address] | + + + URIC ACID, PLASMA (07/05/2017 12:31 AM) + +---------+ + | Component | Value | Ref Range | + +---------+ + | URIC ACID, PLASMA | 2.3 (L) | 2.5 - 6.2 mg/dL | | (LAB) | | | + +---------+ + + + + | Specimen | Performing Laboratory | + + + | Blood | [facility] SERVICES, CORE [address] [facility] | | | [place] [address] | + + + PHOSPHORUS, PLASMA (07/05/2017 12:31 AM) + +-------+ + | Component | Value | Ref Range | + +-------+ + | PHOSPHORUS, PLASMA | 2.9 | 2.4 - 4.7 mg/dL | | (LAB) | | | + +-------+ + + + + | Specimen | Performing Laboratory | + + + | Blood | [facility]OR[facility] SERVICES, CORE [address] | | | [place] [address] | + + + MAGNESIUM, PLASMA (07/05/2017 12:31 AM) + +-------+ + | Component | Value | Ref Range | + +-------+ + | MAGNESIUM,PLASMA | 2.5 | 1.6 - 2.6 mg/dL | + +-------+ + + + + | Specimen | Performing Laboratory | + + + | Blood | [facility], CORE [address] | | | [facility] [address] | + + + + + | [...] | ------ CBC AND AUTO | | DIFF[[id number]] Abnormal Final | | result Please view [...] | >60 | >60 mL/min | | VINCENTIAN | | | + + + + | EGFR NON | >60 | >60 mL/min | | -VINCENTIAN | | | + + + + [...] + + + | Blood | [facility], [facility] [address] [facility] | | | [place] [address] | + + + + + | [...] | + + + | Blood | [facility] SERVICES, TRANSFUSION MEDICINE [address] | | | [place] [address] | + + + ABO & RH [...] | [facility] LABORAT[facility] SERVICES, TRANSFUSION MEDICINE [address] | | | [place] [address] | + + + TYPE AND SCREEN [...] | ------ ABO & RH | | TYPE[[id number]] F | | inal result ANTIBODY | | SCREEN[[id number]] Fin | | al result Please view [...] + + | PRODUCT UNIT # | [id number] | | + + + + | UNIT ABO | O | | + + + + | UNIT RH | POS | | + + + + | STATUS OF UNIT | Presumed Transfused | | + + + + | EXPIRATION DATE | [id number] | | + + + + | BLOOD TYPE BARCODE | 5100 | | + + + + | BLOOD PRODUCT CODE | [id number] | | + + + + + + + | Specimen | Performing Laboratory | + + + | | [facility] SERVICES, TRANSFUSION MEDICINE [address] | | | [place] [address] | + + + PRODUCT - RED CELLS LEUKOREDUCED (07/04/2017 4:07 AM) + + + + | Component | Value | Ref Range | + + + + | PRODUCT DESCRIPTION | -1 RED BLOOD CELLS ADENINE-SALINE ADDED | | | | LEUKOCYT | | + + + + | PRODUCT UNIT # | [id number] | | + + + + | UNIT ABO | O | | + + + + | UNIT RH | POS | | + + + + | STATUS OF UNIT | Presumed Transfused | | + + + + | EXPIRATION DATE | [id number] | | + + + + | BLOOD TYPE BARCODE | 5100 | | + + + + | BLOOD PRODUCT CODE | [id number] | | + + + + + + + | Specimen | Performing Laboratory | + + + | | [facility], TRANSFUSION MEDICINE [address] | | | [place] [address] | + + + RBC MORPHOLOGY (07/04/2017 12:40 AM) + + + + | Component | Value | Ref Range | + + + + | ANISOCYTOSIS | 2+(25-100cells/HPF) | | + + + + | MICROCYTOSIS | 2+(25-100cells/HPF) | | + + + + + + + | Specimen | Performing Laboratory | + + + | Blood | [facility]OR[facility] SERVICES, CORE [address] [facility] [address] | | | [place] [address] | + + + MANUAL DIFFERENTIAL (07/04/2017 [...] | + + + | Blood | [facility] LABORAT[facility] SERVICES, CORE [address] | | | [place] [address] | + + + + + | [...] | + + + | Blood | [facility] SERVICES, CORE [address] [facility] | | | [place], [place] [address] | + + + LDH TOTAL, PLASMA [...] | + + + | Blood | [facility] LABORAT[facility] SERVICES, CORE [address] [place] [address] | | | [place], [place] [address] | + + + URIC ACID, PLASMA (07/04/2017 12:40 AM) + +-------+ + | Component | Value | Ref Range | + +-------+ + | URIC ACID, PLASMA | 2.7 | 2.5 - 6.2 mg/dL | | (LAB) | | | + +-------+ + + + + | Specimen | Performing Laboratory | + + + | Blood | [facility] LABORATORY [facility], CORE [address] [facility] | | | [place] [address] | + + + PHOSPHORUS, PLASMA (07/04/2017 12:40 AM) + +-------+ + | Component | Value | Ref Range | + +-------+ + | PHOSPHORUS, PLASMA | 3.7 | 2.4 - 4.7 mg/dL | | (LAB) | | | + +-------+ + + + + | Specimen | Performing Laboratory | + + + | Blood | [facility]OR[facility] SERVICES, CORE [address] | | | [place] [address] | + + + MAGNESIUM, PLASMA (07/04/2017 12:40 AM) + +---------+ + | Component | Value | Ref Range | + +---------+ + | MAGNESIUM,PLASMA | 2.7 (H) | 1.6 - 2.6 mg/dL | + +---------+ + + + + | Specimen | Performing Laboratory | + + + | Blood | [facility] SERVICES, CORE [address] [facility] | | | [place] [address] | + + + + + | [...] | ------ CBC AND AUTO | | DIFF[[id number]] Abnormal Final | | result MANUAL | | DIFFERENTIAL[[id number]] Abnormal Final | | result RBC | | MORPHOLOGY[[id number]] | | Final result Please view results [...] | >60 | >60 mL/min | | VINCENTIAN | | | + + + + | EGFR NON | >60 | >60 mL/min | | -VINCENTIAN | | | + + + + [...] | + + + | Blood | [facility] LABORATORY [facility] [address] [facility] | | | [place] [address] | + + + + + | [...] | + + + | Blood | [facility], [address] | | | [place] [address] | + + + URIC ACID, PLASMA (07/03/2017 5:03 AM) + +-------+ + | Component | Value | Ref Range | + +-------+ + | URIC ACID, PLASMA | 2.9 | 2.5 - 6.2 mg/dL | | (LAB) | | | + +-------+ + + + + | Specimen | Performing Laboratory | + + + | Blood | [facility] LAB[facility] SERVICES, [facility] [address] [facility] | | | [place] [address] | + + + PHOSPHORUS, PLASMA (07/03/2017 5:03 AM) + +-------+ + | Component | Value | Ref Range | + +-------+ + | PHOSPHORUS, PLASMA | 3.4 | 2.4 - 4.7 mg/dL | | (LAB) | | | + +-------+ + + + + | Specimen | Performing Laboratory | + + + | Blood | [facility] LABOR[facility] SERVICES, CORE [address] | | | [place] [address] | + + + CBC ONLY (07/03/2017 5:03 AM) + + + | Specimen | Performing Laboratory | + + + | Blood | | + + + + + | Narrative | + + | The following orders were created for panel order CBC ONLY. | | Procedure | | Abnormality Status | | --------- | | ------ CBC (HEMOGRAM) | | ONLY[[id number]] Abnormal Final | | result Please view [...] | >60 | >60 mL/min | | VINCENTIAN | | | + + + + | EGFR NON | >60 | >60 mL/min | | -VINCENTIAN | | | + + + + [...] + + + | Blood | [facility] SERVICES, CORE [address] [facility] | | | [place] [address] | + + + + + | [...] + + + | Blood | [facility], CORE [address] [facility] | | | [place] [address] | + + + + + | [...] + + | PRODUCT UNIT # | [id number] | | + + + + | UNIT ABO | O | | + + + + | UNIT RH | POS | | + + + + | STATUS OF UNIT | Presumed Transfused | | + + + + | EXPIRATION DATE | [id number] | | + + + + | BLOOD TYPE BARCODE | 5100 | | + + + + | BLOOD PRODUCT CODE | [id number] | | + + + + + + + | Specimen | Performing Laboratory | + + + | | [facility]ORAT[facility] SERVICES, TRANSFUSION MEDICINE [address] | | | [address] [place] [address] | + + + D-DIMER, (PE OR DIC) (07/02/2017 11:37 PM) + + + + | Component | Value | Ref Range | + + + + | D-DIMER (PE OR DIC) | >4.00 (H) | <0.50 ug/mLFEU | + + + + + + + | Specimen | Performing Laboratory | + + + | Blood | [facility]OR[facility] SERVICES, CORE [address] [facility] | | | [place] [address] | + + + + + | [...] + + + | Blood | [facility], CORE [address] [facility] | | | [place] [address] | + + + MANUAL DIFFERENTIAL (07/02/2017 [...] + + + | Blood | [facility], CORE [address] | | | [place] [address] | + + + + + | [...] | + + + | Blood | [facility] LABORATORY SERVICES, CORE [address] [facility] | | | [place] [address] | + + + URIC ACID, PLASMA (07/02/2017 11:36 PM) + +-------+ + | Component | Value | Ref Range | + +-------+ + | URIC ACID, PLASMA | 2.6 | 2.5 - 6.2 mg/dL | | (LAB) | | | + +-------+ + + + + | Specimen | Performing Laboratory | + + + | Blood | [facility] LABORAT[facility] SERVICES, CORE [address] [place] [address] | | | [place] [address] | + + + PHOSPHORUS, PLASMA (07/02/2017 11:36 PM) + +-------+ + | Component | Value | Ref Range | + +-------+ + | PHOSPHORUS, PLASMA | 3.5 | 2.4 - 4.7 mg/dL | | (LAB) | | | + +-------+ + + + + | Specimen | Performing Laboratory | + + + | Blood | [facility] LABOR[facility] SERVICES, CORE [address] [facility] | | | [place] [address] | + + + LDH TOTAL, PLASMA [...] | + + + | Blood | [facility]OR[facility] SERVICES, CORE [address] [facility] | | | [place] [address] | + + + MAGNESIUM, PLASMA (07/02/2017 11:36 PM) + +---------+ + | Component | Value | Ref Range | + +---------+ + | MAGNESIUM,PLASMA | 2.8 (H) | 1.6 - 2.6 mg/dL | + +---------+ + + + + | Specimen | Performing Laboratory | + + + | Blood | [facility], CORE [address] [facility] | | | [place] [address] | + + + + + | [...] | ------ CBC AND AUTO | | DIFF[[id number]] Abnormal Final | | result MANUAL | | DIFFERENTIAL[[id number]] Abnormal Final | | result RBC | | MORPHOLOGY[[id number]] | | Final result Please view results [...] | >60 | >60 mL/min | | VINCENTIAN | | | + + + + | EGFR NON | >60 | >60 mL/min | | -VINCENTIAN | | | + + + + [...] | + + + | Blood | [facility] LABORAT[facility] SERVICES, CORE [address] [facility] | | | [place] [address] | + + + + + | [...] | + + + | Blood | [facility] LABORATORY [facility], CORE [address] | | | [place] [address] | + + + + + | [...] | + + + | Blood | [facility] LABORAT[facility] SERVICES, CORE [address] [place] [address] | | | [place] [address] | + + + URIC ACID, PLASMA (07/02/2017 6:39 PM) + +---------+ + | Component | Value | Ref Range | + +---------+ + | URIC ACID, PLASMA | 2.2 (L) | 2.5 - 6.2 mg/dL | | (LAB) | | | + +---------+ + + + + | Specimen | Performing Laboratory | + + + | Blood | [facility] SERVICES, CORE [address] [facility] | | | [place] [address] | + + + PHOSPHORUS, PLASMA (07/02/2017 6:39 PM) + +-------+ + | Component | Value | Ref Range | + +-------+ + | PHOSPHORUS, PLASMA | 3.4 | 2.4 - 4.7 mg/dL | | (LAB) | | | + +-------+ + + + + | Specimen | Performing Laboratory | + + + | Blood | [facility] SERVICES, CORE [address] [facility] | | | [place] [address] | + + + CBC ONLY (07/02/2017 6:39 PM) + + + | Specimen | Performing Laboratory | + + + | Blood | | + + + + + | Narrative | + + | The following orders were created for panel order CBC ONLY. | | Procedure | | Abnormality Status | | --------- | | ------ CBC (HEMOGRAM) | | ONLY[[id number]] Abnormal Final | | result Please view [...] | >60 | >60 mL/min | | VINCENTIAN | | | + + + + | EGFR NON | >60 | >60 mL/min | | -VINCENTIAN | | | + + + + [...] | + + + | Blood | [facility] LABORATORY [facility], CORE [address] | | | [place] [address] | + + + + + | [...] | + + + | Blood | [facility] LABORAT[facility] SERVICES, CORE [address] [facility] | | | [place] [address] | + + + + + | [...] | + + + | Blood | [facility] SERVICES, CORE [address] [facility] | | | [place] [address] | + + + URIC ACID, PLASMA (07/02/2017 12:38 PM) + +-------+ + | Component | Value | Ref Range | + +-------+ + | URIC ACID, PLASMA | 3.0 | 2.5 - 6.2 mg/dL | | (LAB) | | | + +-------+ + + + + | Specimen | Performing Laboratory | + + + | Blood | [facility] LABORAT[facility] SERVICES, CORE [address] [place] [address] | | | [place] [address] | + + + PHOSPHORUS, PLASMA (07/02/2017 12:38 PM) + +-------+ + | Component | Value | Ref Range | + +-------+ + | PHOSPHORUS, PLASMA | 3.8 | 2.4 - 4.7 mg/dL | | (LAB) | | | + +-------+ + + + + | Specimen | Performing Laboratory | + + + | Blood | [facility] LABORAT[facility] SERVICES, CORE [address] [place] [address] | | | [place], [place] [address] | + + + CBC ONLY (07/02/2017 12:38 PM) + + + | Specimen | Performing Laboratory | + + + | Blood | | + + + + + | Narrative | + + | The following orders were created for panel order CBC ONLY. | | Procedure | | Abnormality Status | | --------- | | ------ CBC (HEMOGRAM) | | ONLY[[id number]] Abnormal Final | | result Please view [...] | >60 | >60 mL/min | | VINCENTIAN | | | + + + + | EGFR NON | >60 | >60 mL/min | | -VINCENTIAN | | | + + + + [...] | + + + | Blood | [facility] LABORAT[facility] SERVICES, CORE [address] [facility] | | | [place] [address] | + + + + + | [...] + + + | Blood | [facility], CORE [address] [facility] [address] | | | [place] [address] | + + + D-DIMER, (PE OR DIC) (07/02/2017 12:38 PM) + + + + | Component | Value | Ref Range | + + + + | D-DIMER (PE OR DIC) | >4.00 (H) | <0.50 ug/mLFEU | + + + + + + + | Specimen | Performing Laboratory | + + + | Blood | [facility], [address] [facility] | | | [place] [address] | + + + + + | [...] | + + + | Blood | [facility], CORE [address] [place] [address] | | | [place] [address] | + + + + + | [...] + + | PRODUCT UNIT # | [id number] | | + + + + | UNIT ABO | O | | + + + + | UNIT RH | POS | | + + + + | STATUS OF UNIT | Returned to Blood Bank | | + + + + | EXPIRATION DATE | [id number] | | + + + + | BLOOD TYPE BARCODE | 5100 | | + + + + | BLOOD PRODUCT CODE | [id number] | | + + + + + + + | Specimen | Performing Laboratory | + + + | | [facility], TRANSFUSION MEDICINE [address] [facility] | | | [place] [address] | + + + PRODUCT - PLATELET PHERESIS LEUKOREDUCED (07/02/2017 7:08 AM) + + + + | Component | Value | Ref Range | + + + + | PRODUCT DESCRIPTION | PLATELETS PHERESIS, LEUKOCYTE REDUCED, | | | | IRRADIATED | | + + + + | PRODUCT UNIT # | [id number] | | + + + + | UNIT ABO | A | | + + + + | UNIT RH | NEG | | + + + + | STATUS OF UNIT | Presumed Transfused | | + + + + | EXPIRATION DATE | [id number] | | + + + + | BLOOD TYPE BARCODE | 0600 | | + + + + | BLOOD PRODUCT CODE | [id number] | | + + + + + + + | Specimen | Performing Laboratory | + + + | | [facility], TRANSFUSION MEDICINE [address] [facility] | | | [place] [address] | + + + CBC (HEMOGRAM) ONLY [...] | + + + | Blood | [facility], [address]ORE [address] [facility] | | | [place] [address] | + + + D-DIMER, (PE OR DIC) (07/02/2017 6:26 AM) + + + + | Component | Value | Ref Range | + + + + | D-DIMER (PE OR DIC) | >4.00 (H) | <0.50 ug/mLFEU | + + + + + + + | Specimen | Performing Laboratory | + + + | Blood | [facility], [address] [facility] [address] | | | [place] [address] | + + + + + | [...] | | ------ CBC (HEMOGRAM) | | ONLY[[id number]] Abnormal Final | | result Please view [...] + + + | Blood | [facility], [facility] [address] [facility] [address] | | | [place] [address] | + + + + + | [...] | + + + | Blood | [facility], [address] | | | [place] [address] | + + + URIC ACID, PLASMA (07/02/2017 6:26 AM) + +-------+ + | Component | Value | Ref Range | + +-------+ + | URIC ACID, PLASMA | 3.4 | 2.5 - 6.2 mg/dL | | (LAB) | | | + +-------+ + + + + | Specimen | Performing Laboratory | + + + | Blood | [facility], [address] [facility] | | | [place] [address] | + + + BASIC METABOLIC SET [...] | >60 | >60 mL/min | | VINCENTIAN | | | + + + + | EGFR NON | >60 | >60 mL/min | | -VINCENTIAN | | | + + + + [...] | + + + | Blood | [facility], CORE [address] | | | [place] [address] | + + + + + | [...] | + + + | Blood | [facility] LAB[facility]ATORY [facility], CORE [address] [facility] | | | [place] [address] | + + + MANUAL DIFFERENTIAL (07/01/2017 [...] | + + + | Blood | [facility], CORE [address] [facility] [address] [address] | | | [place] [address] | + + + + + | [...] + + + | Blood | [facility], CORE [address] [place] [address] | | | [place] [address] | + + + URIC ACID, PLASMA (07/01/2017 11:18 PM) + +---------+ + | Component | Value | Ref Range | + +---------+ + | URIC ACID, PLASMA | 2.0 (L) | 2.5 - 6.2 mg/dL | | (LAB) | | | + +---------+ + + + + | Specimen | Performing Laboratory | + + + | Blood | [facility], CORE [address] [facility] | | | [place] [address] | + + + PHOSPHORUS, PLASMA (07/01/2017 11:18 PM) + +-------+ + | Component | Value | Ref Range | + +-------+ + | PHOSPHORUS, PLASMA | 3.5 | 2.4 - 4.7 mg/dL | | (LAB) | | | + +-------+ + + + + | Specimen | Performing Laboratory | + + + | Blood | [facility], CORE [address] [facility] | | | [place] [address] | + + + LDH TOTAL, PLASMA [...] + + + | Blood | [facility] SERVICES, CORE [address] [place] [address] | | | [place] [address] | + + + MAGNESIUM, PLASMA (07/01/2017 11:18 PM) + +---------+ + | Component | Value | Ref Range | + +---------+ + | MAGNESIUM,PLASMA | 2.8 (H) | 1.6 - 2.6 mg/dL | + +---------+ + + + + | Specimen | Performing Laboratory | + + + | Blood | [facility], CORE [address] [facility] | | | [place] [address] | + + + + + | [...] | ------ CBC AND AUTO | | DIFF[[id number]] Abnormal Final | | result MANUAL | | DIFFERENTIAL[[id number]] Abnormal Final | | result RBC | | MORPHOLOGY[[id number]] | | Final result Please view results [...] | >60 | >60 mL/min | | VINCENTIAN | | | + + + + | EGFR NON | >60 | >60 mL/min | | -VINCENTIAN | | | + + + + [...] | + + + | Blood | [facility], [place] [address] | | | [place] [address] | + + + + + | [...] | + + + | Blood | [facility], CORE [address] [facility] | | | [place] [address] | + + + CBC ONLY (07/01/2017 6:19 PM) + + + | Specimen | Performing Laboratory | + + + | Blood | | + + + + + | Narrative | + + | The following orders were created for panel order CBC ONLY. | | Procedure | | Abnormality Status | | --------- | | ------ CBC (HEMOGRAM) | | ONLY[[id number]] Abnormal Final | | result Please view [...] | + + + | Blood | [facility], CORE [address] [facility] | | | [place] [address] | + + + + + | [...] | + + + | Blood | [facility], CORE [address] [place] [address] | | | [place] [address] | + + + URIC ACID, PLASMA (07/01/2017 6:19 PM) + +---------+ + | Component | Value | Ref Range | + +---------+ + | URIC ACID, PLASMA | 1.1 (L) | 2.5 - 6.2 mg/dL | | (LAB) | | | + +---------+ + + + + | Specimen | Performing Laboratory | + + + | Blood | [facility], CORE [address] [facility] | | | [place] [address] | + + + BASIC METABOLIC SET [...] | >60 | >60 mL/min | | VINCENTIAN | | | + + + + | EGFR NON | >60 | >60 mL/min | | -VINCENTIAN | | | + + + + [...] | + + + | Blood | [facility], CORE [address] | | | [place] [address] | + + + + + | [...] + + + + | URINE CULTURE [facility] | No growth (<1000 cfu/mL) after 24 hours | | + + + + + + + | Specimen | Performing Laboratory | + + + | Urine | [facility], CORE [address] [facility] | | | [place] [address] | + + + URINE SCREEN FOR CULTURE (07/01/2017 4:13 PM) + + + + | Component | Value | Ref Range | + + + + | CULT, URINE SCREEN | Positive (A) | Negative | + + + + + + + | Specimen | Performing Laboratory | + + + | Urine | [facility], [facility] [address] [facility] | | | [place] [address] | + + + + + | [...] | + + + | Urine | [facility], CORE [address] [facility] | | | [place] [address] | + + + RAYMOND PRESLEY ONLY [...] + | SPECIFIC GRAVITY | 1.021Comment: Specific [place] performed by | 1.005 - 1.030 | | | refractometry | | + + + + + + + | Specimen | Performing Laboratory | + + + | Urine | [facility], [facility] [address] [facility] | | | [place] [address] | + + + CULTURE, BLOOD BACTI [...] + + | Blood - Peripheral | [facility], CORE [address] [facility] | | | [place] [address] | + + + CULTURE, BLOOD BACTI [...] ------ CULTURE, BLOOD | | BACTI & Y...[[id number]] Final | | result Please view results [...] | + + + | Blood | [facility], CORE [address] [facility] | | | [place] [address] | + + + D-DIMER, (PE OR DIC) (07/01/2017 12:30 PM) + + + + | Component | Value | Ref Range | + + + + | D-DIMER (PE OR DIC) | 3.25 (H) | <0.50 ug/mLFEU | + + + + + + + | Specimen | Performing Laboratory | + + + | Blood | [facility], [facility] [address] [facility] | | | [place] [address] | + + + + + | [...] | | ------ CBC (HEMOGRAM) | | ONLY[[id number]] Abnormal Final | | result Please view [...] | + + + | Blood | [facility], CORE [address] [facility] [address] | | | [place] [address] | + + + + + | [...] | + + + | Blood | [facility], CORE [address] [facility] | | | [place] [address] | + + + BASIC METABOLIC SET [...] | >60 | >60 mL/min | | VINCENTIAN | | | + + + + | EGFR NON | >60 | >60 mL/min | | -VINCENTIAN | | | + + + + [...] | + + + | Blood | [facility], CORE [address] [facility] [address] [address] | | | [place] [address] | + + + + + | [...] | + + + | Blood | [facility], CORE [address] [facility] | | | [place] [address] | + + + URIC ACID, PLASMA (07/01/2017 12:30 PM) + +---------+ + | Component | Value | Ref Range | + +---------+ + | URIC ACID, PLASMA | 1.2 (L) | 2.5 - 6.2 mg/dL | | (LAB) | | | + +---------+ + + + + | Specimen | Performing Laboratory | + + + | Blood | [facility], CORE [address] | | | [place] [address] | + + + RBC MORPHOLOGY (06/30/2017 11:00 PM) + + + + | Component | Value | Ref Range | + + + + | ANISOCYTOSIS | 1+(10-25cells/HPF) | | + + + + + + + | Specimen | Performing Laboratory | + + + | Blood | [facility], CORE [address] [facility] | | | [place] [address] | + + + MANUAL DIFFERENTIAL (06/30/2017 [...] | + + + | Blood | [facility], CORE [address] [facility] | | | [place] [address] | + + + + + | [...] + + + | Blood | [facility], CORE [address] [place] [address] | | | [place] [address] | + + + COAGULOPATHY PANEL (INR,APTT,FIBRINOGEN) [...] | + + + | Blood | [facility], CORE [address] | | | [place] [address] | + + + + + | [...] + + + | Blood | [facility], CORE [address] [facility] | | | [place] [address] | + + + LDH TOTAL, PLASMA [...] + + + | Blood | [facility], CORE [address] [place] [address] RD | | | [place] [address] | + + + URIC ACID, PLASMA (06/30/2017 11:00 PM) + +---------+ + | Component | Value | Ref Range | + +---------+ + | URIC ACID, PLASMA | 1.4 (L) | 2.5 - 6.2 mg/dL | | (LAB) | | | + +---------+ + + + + | Specimen | Performing Laboratory | + + + | Blood | [facility], CORE [address] [facility] | | | [place] [address] | + + + MAGNESIUM, PLASMA (06/30/2017 11:00 PM) + +-------+ + | Component | Value | Ref Range | + +-------+ + | MAGNESIUM,PLASMA | 2.3 | 1.6 - 2.6 mg/dL | + +-------+ + + + + | Specimen | Performing Laboratory | + + + | Blood | [facility], CORE [address] | | | [place] [address] | + + + + + | [...] | ------ CBC AND AUTO | | DIFF[[id number]] Abnormal Final | | result MANUAL | | DIFFERENTIAL[[id number]] Abnormal Final | | result RBC | | MORPHOLOGY[[id number]] | | Final result Please view results [...] | >60 | >60 mL/min | | VINCENTIAN | | | + + + + | EGFR NON | >60 | >60 mL/min | | -VINCENTIAN | | | + + + + [...] | + + + | Blood | [facility], CORE [address] [facility] | | | [place] [address] | + + + + + | [...] | + + + | Blood | [facility], CORE [address] [facility] | | | [place] [address] | + + + MANUAL DIFFERENTIAL (06/30/2017 [...] | + + + | Blood | [facility], CORE [address] [facility] | | | [place] [address] | + + + + + | [...] | + + + | Blood | [facility], CORE [address] | | | [place] [address] | + + + CBC, WITH DIFFERENTIAL [...] | ------ CBC AND AUTO | | DIFF[[id number]] Abnormal Final | | result MANUAL | | DIFFERENTIAL[[id number]] Abnormal Final | | result RBC | | MORPHOLOGY[[id number]] | | Final result Please view results [...] + + | Swab - Rectum | [facility], CORE [address] [facility] | | | [place] [address] | + + + PHOSPHORUS, PLASMA (06/30/2017 11:36 AM) + +-------+ + | Component | Value | Ref Range | + +-------+ + | PHOSPHORUS, PLASMA | 2.4 | 2.4 - 4.7 mg/dL | | (LAB) | | | + +-------+ + + + + | Specimen | Performing Laboratory | + + + | Blood | [facility], CORE [address] [facility] | | | [place] [address] | + + + BASIC METABOLIC SET [...] | >60 | >60 mL/min | | VINCENTIAN | | | + + + + | EGFR NON | >60 | >60 mL/min | | -VINCENTIAN | | | + + + + [...] | + + + | Blood | [facility], CORE [address] [facility] | | | [place] [address] | + + + + + | [...] | + + + | Blood | [facility], CORE [address] [place] [address] | | | [place] [address] | + + + URIC ACID, PLASMA (06/30/2017 11:36 AM) + +---------+ + | Component | Value | Ref Range | + +---------+ + | URIC ACID, PLASMA | 1.7 (L) | 2.5 - 6.2 mg/dL | | (LAB) | | | + +---------+ + + + + | Specimen | Performing Laboratory | + + + | Blood | [facility], CORE [address] [facility] | | | [place] [address] | + + + FLT3 ITD, BLOOD [...] clinical trial | | | | (CALGB 31985) has led to the FDA approval | | | | in July 2016 of the multitargeted kinase | | | | inhibitor midostaurin for the treatment of | | | | adult patients with newly diagnosed AML | | | | harboring either the FLT3-ITD or FLT3-TKD | | | | mutations (Shade Prado, Blood, 2017, | | | | 129:4794-9862). The quantitative reporting | | | | [...] | | | characteristics determined by the [facility] | | | | [facility] [...] 1988 | | | | (CLIA). The [facility] | | | | Laboratories are fully licensed by the | | | | [facility] under CLIA and are | | | | accredited by the [employer] | | | | Pathologists (CAP). Laboratory | | | | Director: Edy Vang M.D., | | | | Ph.D Reviewed and electronically signed | | | | by DEANGELO JOLLY MD,PhD3/12/2017 12:00 | | | | PM | | + + + + + + + | Specimen | Performing Laboratory | + + + | Blood | [facility] [address] | [address] [place] [address] | + + + COMPREHENSIVE HEME PANEL [...] Sequencing Specimen ID: | | | | [id number] Type: BloodCollection | | | | Date: [...] | | bpVariant: | | | | p.N228onfisfYKHRIBYCJLIWVWPOlswgmv allele | | | | frequency (VAF): 71%Allelic ratio = 23FLT3 | | | | (TWRC88935.1):c.1782_1783insGTGACCGGCTCCTCA | | | | GATAATGAGTACTTCTACGTTGATTTC; | | | | chr13:[id number]>TGAAATCAACGTAGAAGTACTCATTAT | | | | CTGAGGAGCCGGTCACLast Observed: 04/04/2017; [...] | | | (Shade Prado, Blood, 2017, 129:6051-3148). | | | | The FLT3 kinase is also specific target of | | | | several other tyrosine kinase inhibitors | | | | that may be recruiting patients for | | | | clinical trials (including quizartinib, | | | | lestaurtinib, midostaurin, sorefenib, | | | | sunitinib, ponatinib, etc Gene: | | | | AUL9Rvbixzv: p.W288fs*12Variant allele | | | | frequency (VAF): 51%Variant ID: | | | | [id number]; [id number] | | | | (LHIW9363.1):c.859_860insTCTG; | | | | chr5:070126819P>CTCTGLast Observed: | | | | 04/04/2017; Allele frequency: 0%03/03/2017; | | | | Allele frequency: 44%03/14/2016; Allele | | | | frequency: 0%02/15/2016; Allele frequency: | | | | 46% Gene: KSQI5EVatxbmo: p.S442DAogyimp | | | | allele frequency (VAF): 48%Variant ID: | | | | [id number]; [id number], OWVC24203QCJK1N | | | | (ROPL83072.1):c.2644C>T; | | | | chr2:83588564B>ALast Observed: 04/04/2017; | | | | Allele frequency: 19%03/03/2017; Allele | | | | frequency: 46%03/14/2016; Allele frequency: | | | | 14%02/15/2016; Allele frequency: 45% | | | | Variant(s) of Potential Clinical | | | | Significance (Tier II) Gene: MQ6Chrimfl: | | | | p.V362fs*69 (not detected in prior | | | | samples)Variant allele frequency (VAF): | | | | 41%Variant ID: WT1 | | | | (JYFN08048.1):c.1083_1088TGTACG>GA; | | | | chr11:19212675ZAABYOH>CTC The WT1 gene | | | | encodes a zinc-finger heavy duty mechanic farm equipment factor | | | | that plays [...] | | | 116(5):788-92, 2009; Gilda, Blood 115:63448, | | | | 2009). Case reviewed by:Dora | | | | Ranjit/Molecular TechnologistDeangelo | | | | MD Ruperto, PhD/Molecular [...] | | | | | | | genes:EAT4OPNQORYJPNOGRIR6IXOV1HTYPZ8MFL6PS | | | | DY5MQL51MQFYHX3PVKO2SST3MPA5IRUGAGIRJSMJS46 | | | | AKGWM9VSRZH1EJKHIHTO8PTRA3TMQE13 | | | | Chromatin-modifying | | | | genes:ZOYS2DLVDXPOK198XTT6MYH0RCYSULYW37 | | | | DNA methylation-associated | | | | genes:KFGS8EVBN3ALX3PHM8 Hand Mold Maker | | | | factors:HSSGHLF0RRGGMEZICCYKTYE9IIVT2MSCS7O | | | | DTN9AW4DART5XYJ9QJWL8FHYSWFD4CRWH4QVAB8YLK3 | | | | Spliceosome-complex | | | | genes:GJFP7KD2E1N8OO3BEJX4 Cohesion-complex | | | | genes:WSD3IFHO5IYPC5BQJ94 Tumor suppressor | | | | genes:QI68YP0KKQ6 and | | | | others:KZP6ODBG8RFYM96AZ81NEYH9BLIHQ3SLSMGI | | | | YVA4FKEDXE8PBKMAR26UCVVI8 All the coding | | | | [...] multiplexed PCR (customized | | | | Implisit targeted DNA panel with molecular | | | | barcodes) and sequencing on an Illumina | | | | platform ([employer]). Sequencing data is | | | | [...] + + + + | REFERENCES | 1.Jacqeu MM, et al; 2017, J Mol Diagn. [...] classification: Blood. 2016; | | | | 127(20):2378-486. 7.Catalogue Of Somatic | | | | Mutations In Cancer: | | | | http://cancer.julia.ac.uk/cosmic8.ClinVar: | | | | | | | | https://www.ncbi.nlm.nih.gov/clinvar/9.SHIRLEY- | | | | Clinical Knowledgebase (CKB): | | | | https://ckb.Nexercise.org/10.CIViC: | | | | https://civicdb.org/home | | + + + + | DISCLAIMER | This test was developed and its performance | | | | characteristics determined by the [facility] | | | | [facility]. It has | | | [...] 1988 | | | | (CLIA). The [facility] | | | | Laboratories are fully licensed by the | | | | state of [place] under CLIA and are | | | | accredited by the [employer] | | | | Pathologists (CAP). Laboratory | | | | Director: Edy Vang M.D., | | | | Ph.D Reviewed and electronically signed | | | | by DEANGELO JOLLY MD,PhD3 4:49 | | | | PM | | + + + + + + + | Specimen | Performing Laboratory | + + + | Blood | [facility] [address] | | [address] [place] [address] | + + + LEUKEMIA/LYMPHOMA MARKER - [...] MANUAL DIFFERENTIAL | | | | Order: [id number] - Part of Panel Order | | | | [id number] Collected: 06/29/2017 23:01 | | | | [...] characteristics | | | | determined by [facility] [employer]. It has | | | | not [...] | + + + | Blood | [facility] DEPARTMENT OF PATHOLOGY [address] | | | [place] [address] | + + + PRODUCT - PLATELET PHERESIS LEUKOREDUCED (06/30/2017 12:33 AM) + + + + | Component | Value | Ref Range | + + + + | PRODUCT DESCRIPTION | PLATELETS PHERESIS, LEUKOCYTE REDUCED, | | | | IRRADIATED | | + + + + | PRODUCT UNIT # | [id number] | | + + + + | UNIT ABO | O | | + + + + | UNIT RH | POS | | + + + + | STATUS OF UNIT | Presumed Transfused | | + + + + | EXPIRATION DATE | [id number] | | + + + + | BLOOD TYPE BARCODE | 5100 | | + + + + | BLOOD PRODUCT CODE | [id number] | | + + + + + + + | Specimen | Performing Laboratory | + + + | | [facility] LABORATORY SERVICES, TRANSFUSION MEDICINE [address] [facility] | | | [place] [address] | + + + ANTIBODY SCREEN (06/30/2017 12:33 AM) + + + + | Component | Value | Ref Range | + + + + | Antibody Screen | Negative | | + + + + + + + | Specimen | Performing Laboratory | + + + | Blood | [facility] LAB[facility]ORY SERVICES, TRANSFUSION MEDICINE [address] [facility] | | | [place] [address] | + + + ABO & RH [...] | + + + | Blood | [facility] SERVICES, TRANSFUSION MEDICINE [address] [facility] | | | [place] [address] | + + + TYPE AND SCREEN [...] | ------ ABO & RH | | TYPE[[id number]] F | | inal result ANTIBODY | | SCREEN[[id number]] Fin | | al result Please view [...] | + + + | Blood | [facility]AT[facility] SERVICES, CORE [address] [facility] | | | [place] [address] | + + + + + | [...] + + + | Blood | [facility], CORE [address] [place] [address] | | | [place] [address] | + + + PHOSPHORUS, PLASMA (06/29/2017 11:01 PM) + +-------+ + | Component | Value | Ref Range | + +-------+ + | PHOSPHORUS, PLASMA | 2.6 | 2.4 - 4.7 mg/dL | | (LAB) | | | + +-------+ + + + + | Specimen | Performing Laboratory | + + + | Blood | [facility]AT[facility] SERVICES, CORE [address] [facility] | | | [place] [address] | + + + LDH TOTAL, PLASMA [...] | + + + | Blood | [facility]ORAT[facility] SERVICES, CORE [address] [facility] | | | [place] [address] | + + + URIC ACID, PLASMA (06/29/2017 11:01 PM) + +-------+ + | Component | Value | Ref Range | + +-------+ + | URIC ACID, PLASMA | 3.0 | 2.5 - 6.2 mg/dL | | (LAB) | | | + +-------+ + + + + | Specimen | Performing Laboratory | + + + | Blood | [facility] LABORATORY SERVICES, CORE [address] | | | [place] [address] | + + + MAGNESIUM, PLASMA (06/29/2017 11:01 PM) + +-------+ + | Component | Value | Ref Range | + +-------+ + | MAGNESIUM,PLASMA | 2.4 | 1.6 - 2.6 mg/dL | + +-------+ + + + + | Specimen | Performing Laboratory | + + + | Blood | [facility] LABORATORY SERVICES, CORE [address] | | | [place] [address] | + + + + + | [...] | ------ CBC AND AUTO | | DIFF[[id number]] Abnormal Final | | result MANUAL | | DIFFERENTIAL[[id number]] Abnormal Final | | result Please view [...] | >60 | >60 mL/min | | VINCENTIAN | | | + + + + | EGFR NON | >60 | >60 mL/min | | -VINCENTIAN | | | + + + + [...] + + + | Blood | [facility], [facility] [address] [facility] [address] | | | [place] [address] | + + + + + | [...] + | Blood - Antecubital | [facility], CORE [address] [facility] | | - right | [facility] [address] | + + + CULTURE, BLOOD BACTI [...] ------ CULTURE, BLOOD | | BACTI & Y...[[id number]] Final | | result Please view results [...] + | Blood - Red port | [facility] LABORATORY SERVICES, CORE [address] [facility] | | lumen | [place] [address] | + + + CULTURE, BLOOD BACTI [...] ------ CULTURE, BLOOD | | BACTI & Y...[[id number]] Final | | result Please view results [...] + | | [facility] [address] [place] [address] | | | [place] [address] | + + + + + | Narrative | + + | [facility] Adult Echocardiography Laboratory | | [address] [place] [address] Ph: | | Pt Name: RHEA HUTCHISON Study | | Date/Time 06/29/2017 / 3:49:49 PM | | Most recent prior: 03/04/2017 Acc #: [id number] No. previous | | echos: 2 : 1965 51 years Heart Rate: 107 bpm | | Height: 62.0 in Blood Pressure: 140/77 mm/Hg | | Weight: 199.0 lb Gender: F | | BSA: 1.91 m2 Order ID: [id number] | | Presser Hand: Nathaniel BRANTLEY Referring Provider: Sarah Katz Patient [...] values Report electronically | | signed by: [id number] Hector Khoury MD (06/29/2017, 6:21:10 PM) Final | + + + + | Procedure Note | + + | Interface, Ecg Results - 06/29/2017 6:21 PM [facility] | | [facility] Echocardiography Laboratory [address] [place] [address] | | [place], [place] [address] Pt Name: RHEA HUTCHISON | | Study Date/Time 06/29/2017 / 3:49:49 PMMRN: [id number] Most | | recent prior: 03/04/2017Acc #: [id number] No. previous echos: 2DOB: | | 1965 51 years Heart Rate: 107 bpmHeight: 62.0 in Blood | | Pressure: 140/77 mm/HgWeight: 199.0 lb Gender: FBSA: | | 1.91 m2 Order ID: [id number] Presser Hand: Nathaniel Steele [facility]erring | | Provider: Sarah KatzPatient Location: [...] Ao 3.20 16.8 | | (prox) cm mm/e0Fwbunlfior of chamber size and | | geometry is accomplished through the incorporation of linear, volumetric, and indexed | | values Report electronically signed by: [id number] Hector Khoury MD (06/29/2017, 6:21:10 | | [...] | | | |Report electronically signed by: [id number] Hector Khoury MD (06/29/2017, 6:21:10 PM) | | | | | | | | Final | + + CT ABDOMEN AND PELVIS W IV CONTRAST (06/29/2017 2:58 PM) + + + | Specimen | Performing Laboratory | + + + | | [facility] RADIOLOGY VOICE RECOGNITION | + + [...] | + + + | Blood | [facility], [facility] [address] [facility] | | | [place] [address] | + + + BASIC METABOLIC SET [...] | >60 | >60 mL/min | | VINCENTIAN | | | + + + + | EGFR NON | >60 | >60 mL/min | | -VINCENTIAN | | | + + + + [...] | + + + | Blood | [facility], [place] [address] | | | [place] [address] | + + + + + | [...] + + + | Blood | [facility], [place] [address] [place] [address] | | | [facility] [address] | + + + URIC ACID, PLASMA (06/29/2017 2:31 PM) + +-------+ + | Component | Value | Ref Range | + +-------+ + | URIC ACID, PLASMA | 3.7 | 2.5 - 6.2 mg/dL | | (LAB) | | | + +-------+ + + + + | Specimen | Performing Laboratory | + + + | Blood | [facility], [place] [address] [facility] | | | [place] [address] | + + + RESPIRATORY PATHOGEN PANEL [...] + + | Washing - Nasal | [facility], [place] [address] [place] [address] | | | [place] [address] | + + + 12 LEAD ECG [...] Laboratory | + + + | | [facility] [address] [place] [address] | | | [place] [address] | + + + X-RAY PORTABLE CHEST TUBE OR CATH EVAL X-RAY (06/29/2017 8:20 AM) + + + | Specimen | Performing Laboratory | + + + | | [facility] VOICE RECOGNITION | + + + + + | Narrative | + + | EXAM: [place] CHEST TUBE OR CATH EVAL X-RAY 06/29/17 [...] Interface - 06/29/2017 11:21 AM PST EXAM: [place] CHEST | | TUBE OR CATH EVAL [...] + + + | Blood | [facility], CORE [address] [place] [address] | | | [place] [address] | + + + MANUAL DIFFERENTIAL (06/28/2017 [...] | + + + | Blood | [facility], CORE [address] [facility] | | | [place] [address] | + + + + + | [...] | + + + | Blood | [facility], CORE [address] [place] [address] | | | [place] [address] | + + + CBC, WITH DIFFERENTIAL [...] | ------ CBC AND AUTO | | DIFF[[id number]] Abnormal Final | | result MANUAL | | DIFFERENTIAL[[id number]] Abnormal Final | | result RBC | | MORPHOLOGY[[id number]] | | Final result Please view results [...] | + + + | Blood | [facility], CORE [address] [facility] | | | [place] [address] | + + + BILIRUBIN DIRECT (06/28/2017 [...] | + + + | Blood | [facility], CORE [address] [facility] | | | [place] [address] | + + + URIC ACID, PLASMA (06/28/2017 10:30 PM) + +-------+ + | Component | Value | Ref Range | + +-------+ + | URIC ACID, PLASMA | 4.7 | 2.5 - 6.2 mg/dL | | (LAB) | | | + +-------+ + + + + | Specimen | Performing Laboratory | + + + | Blood | [facility], CORE [address] | | | [place] [address] | + + + PHOSPHORUS, PLASMA (06/28/2017 10:30 PM) + +-------+ + | Component | Value | Ref Range | + +-------+ + | PHOSPHORUS, PLASMA | 3.6 | 2.4 - 4.7 mg/dL | | (LAB) | | | + +-------+ + + + + | Specimen | Performing Laboratory | + + + | Blood | [facility], CORE [address] [facility] | | | [place] [address] | + + + MAGNESIUM, PLASMA (06/28/2017 10:30 PM) + +-------+ + | Component | Value | Ref Range | + +-------+ + | MAGNESIUM,PLASMA | 2.6 | 1.6 - 2.6 mg/dL | + +-------+ + + + + | Specimen | Performing Laboratory | + + + | Blood | [facility], CORE [address] | | | [place] [address] | + + + + + | [...] | >60 | >60 mL/min | | VINCENTIAN | | | + +---------+ + | EGFR NON | >60 | >60 mL/min | | -VINCENTIAN | | | + +---------+ + | [...] | + + + | Blood | [facility], CORE [address] [facility] | | | [place] [address] | + + + + + | [...] | | | | Until [facility] 08/08/17 at 1835, per | | | [...] | | | | Until [facility] 08/08/17 at 1835, | | | | [...] 0758, | | | Until [facility] 08/08/17 at 1835, CBG | | | less than 70 mg/dL if patient | | | unable to take PO, per Adult | | | Hypoglycemia Protocol | | + +---+ | | | + +---+ + +-------+ +-------+---+---+ | | Given | | 10 mL | | | | [id number] | | 8 06:43 | | | [...] 13:21 | | | | | dose, [facility] 08/04/17 at 1100 | | PDT | | | | + +-------+ +-------+---+---+ +---+---+ | | | +---+---+ + +-------+ +-------+---+---+ | furosemide (LASIX) injection 20 | Given | 08/05/2017 | 20 mg | | | | mg 20 mg, intravenous, ONCE, 1 | | 11:32 | | | | | dose, [facility] 08/05/17 at 1130 | | PDT | | | | + +-------+ +-------+---+---+ +---+---+ | | | +---+---+ + +-------+ +-------+---+---+ | furosemide (LASIX) injection 40 | Given | | 40 mg | | | | mg 40 mg, intravenous, ONCE, 1 | | 8 15:58 | | | | | dose, [facility] 08/06/17 at 1530 | | PDT | | | | + +-------+ +-------+---+---+ + +---+ | | | + +---+ | glucagon (GLUCAGEN) injection 1 | | | mg 1 mg, intramuscular, | | | NEEDED, Starting Sat07/05/17 at | | | 0758, Until [facility] 08/08/17 at 1835, | | | CBG [...] | 07/02/17 at 1057, Until [facility] 08/08/17 | | | at 1835, constipation, [...] 07:36 | | | | | dose, [facility] 07/07/17 at 2245 | | PDT | [...] | | | 1015, Until [facility] 08/08/17 at 1835, | | | | [...] | | | 0010, Until [facility] 08/08/17 at 1835, | | | | [...] | | | | Until [facility] 08/08/17 at 1835, | | | | [...] 0531, | | | Until [facility] 08/08/17 at 1835, | | | Potassium [...] 1100, | | | Until [facility] 08/08/17 at 1835, | | | constipation [...] | 07/02/17 at 1508, Until [facility] | | | | | | | [...] | | | CONTINUOUS, Starting [facility] 08/01/17 | | PDT | | | | | at 0815, Until [facility] 08/01/17 at 1456 | | | | | | + +---------+ +-------+-------+---+ +---+---+ | | | +---+---+ + +---------+ + +---+---+ | sodium chloride 0.9% IV | New Bag | 08/01/2017 | 1,000 mL | | | | infusion 1,000 mL, intravenous, | | 23:10 | | | | | NEEDED, Starting [facility] 08/01/17 at | | PDT | | | | | 1455, Until [facility] 08/04/17 at 1216, | | | | [...] | | | | Until [facility] 08/08/17 at 1835, | | | | [...]
--- OUTSIDE RECORDS SUMMARY | ~2017-08-27 | XMS | Encounter Summary ---
Demographics + + + | Address | [address] | | | [place] [address] | + + + | Home Phone | | + + + | Preferred Language | Unknown | + + + | Marital Status | | + + + | Orthodoxy Affiliation | NON | + + + | Race | White | + + + | Ethnic Group | Not or | + + + Author + + + | Author | [facility] | + + + | Organization | [facility] | + + + | Address [...] Team Providers + +------+ + | Care Rag Cutting Machine Tender Name | Role | Phone | + [...] [address] | | | | | | [place], [place] | | | | | | [address] | | | | | | [phone] | | | +--------+ + + + [...]
--- OUTSIDE RECORDS SUMMARY | ~2017-08-27 | XMS | Encounter Summary ---
Demographics + + + | Address | [address] | | | [place] [address] | + + + | Home Phone [...] Team Providers + +------+ + | Care Endband Sizer Name | Role | Phone | + [...] [address] | | | | | | [place], [place] | | | | | | [address] | | | | | | [phone] | | | +--------+ + + + [...]
--- OUTSIDE RECORDS SUMMARY | ~2017-08-27 | XMS | Encounter Summary ---
Demographics + + + | Address | [address] | | | [place] [address] | + + + | Home Phone | | + + + | Preferred Language | Unknown | + + + | Marital Status | | + + + | Synagogue Affiliation | Unknown | + + + [...] [place] | ECON | [address] [place] | | | | | [address] [place] | | | | | [address] | | + + + + + | Florin Pantoja | ECON | Unknown | | + + + + + Care Team Providers + +------+ + | Care Firmware Manager Name | Role | Phone | + +------+ + | Saurav De Los Santos NP | PCP | | + +------+ + Encounter Details +--------+ + + + + | Date | Type | Department | Care Team | Description | +--------+ + + + + | 08/12/ | Hospital | [facility] | Leon[place], | AML (acute myeloid | | 2018 | Encounter | MED [facility] CHE[facility] | Daniel French MD [address] | leukemia) in relapse | | | | INFUSION [address] | [address] [place] | (HCC) (Primary Dx) | | | | [place], | [place] [address] | | | | | [place] [address] | [phone] | | | | | [phone] | | | +--------+ + + + [...] + | Respiratory Rate | 18 | 08/12/20171415 PDT | + + + + | Oxygen Saturation | - | - | + + + + | Inhaled [...] + as of this encounter Progress Notes Macey Hansen RN - 08/12/2017 1526 PDTPatient finished with wait time after transfusi on of platelets. Platelet count drawn and hep locked. Patient will be going to hospital in [facility], [place] tomorrow for repeat labs. She will be following up with Dr. Patterson there. She denies any further questions or concerns. Discharged to waiting room with , they are waiting for ride. Macey Hansen RN - 08/12/2017 1418 PDTPatient finished with plat elet infusion, sleeping soundly. Vitals charted. She will wait here 30 minutes for repeat CB C. NS infusing at 100 ml/hr during this time. in this encounter Plan of Treatment Not on fileas of this encounter Results Product: Platelet Pheresis, Leukoreduced (08/13/2017 0115) + + + + | Component | Value | Ref Range | + + + + | Product Code | [id number] | | + + + + | UNIT # | [id number] | | + + + + | UNIT ABO | O | | + + + + | UNIT RH | POS | | + + + + | Unit Status | Transfused | | + + + + | Blood Product ABORh | OPOS | | + + + + | Blood Product | [id number] | | | Expiration Date and | | | | Time | | | + + + + | Product Blood Type | 5100 | | | Barcode | | | + + + + + + + | Specimen | Performing Laboratory | + + + | Blood Product | [facility] [address] | | | [place] [address] | + + + Platelet Count (08/12/2017 [...] | + + + | Blood | [facility] [address] | | | [place] [address] | + + + Type and Screen (08/12/2017 1213) + + + [...] | + + + | Blood | [facility] [address] | | | [place] [address] | + + + in this encounter Visit Diagnoses + + | Diagnosis | + + | 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 | | | | | | + +--------+ +--------+------+------+ +---+---+ | | | +---+---+ + +-------+ +-------+---+---+ | diphenhydrAMINE (BENADRYL) | Given | | 25 mg | | | | tablet 25 mg 25 mg, Oral, ONCE, | | 8 12:35 | | | | | 08/12/17 at 1230, For 1 dose | | PDT | | | | + +-------+ +-------+---+---+ +---+---+ | | | +---+---+ + +-------+ +-------+---+---+ | heparin 100 units/mL flush | Given | | 500 | | | | injection 500 Units 500 Units (5 | | 8 11:36 | Units | | | | mL), Intercatheter, PRN, Line | | PDT | | | | | Care, Starting 08/12/17 at | | | | | | | 1127 | | | | | | + +-------+ +-------+---+---+ +-------+ +-------+---+---+ | Given | | 500 | | | | | 8 14:52 | Units | | | | | PDT | | | | +-------+ +-------+---+---+ | Given | | 500 | | | | | 8 15:25 | Units | | | | | PDT | | | | +-------+ +-------+---+---+ +---+---+ | | | +---+---+ in this encounter"
--- OUTSIDE RECORDS SUMMARY | ~2017-08-27 | XMS | Encounter Summary ---
Demographics + + + | Address | [address] | | | [place] [address] | + + + | Home Phone | | + + + | Preferred Language | Unknown | + + + | Marital Status | | + + + | Amish Affiliation | NON | + + + [...] Team Providers + +------+ + | Care Director Acute Name | Role | Phone | + [...] Rd | | | | | | [place], [place] | | | | | | [address] | | | | | | [phone] | | | +--------+ + + + [...]
--- OUTSIDE RECORDS SUMMARY | ~2017-08-27 | XMS | Encounter Summary ---
Demographics + + + | Address | [address] | | | [place] [address] | + + + | Home Phone | | + + + | Preferred Language | Unknown | + + + | Marital Status | | + + + | Mandaen Affiliation | NON | + + + [...] Team Providers + +------+ + | Care Air Saw Operator Name | Role | Phone | [...] | | | [place] | [place] [address] | | | | | [place], [place] | | | | | | [address] | | | +--------+ + + + [...]
--- OUTSIDE RECORDS SUMMARY | ~2017-08-27 | XMS ---
Demographics + + + | Address | [address] | | | [address] | | | [place] [address] | + + + | Preferred Language [...] | + + + | Organization | [facility] | + + + | Address | [address] | | | [place] [address] | + + + | Phone | | + + + Care Team Providers + + + + | Care Picture Frame Maker Name | Role | Phone | + + + + Unavailable | Unavailable | + + + + PROBLEMS +---------+ + + +--------+ + + | Type | Condition | ICD9-CM | FVD96-DP | Onset | Condition | SNOMED | | | | Code | Code | Dates | Status | Code | +---------+ + + +--------+ + + | Problem | Acute | C92.00 | | | Active | 04017584 | | | myeloid | | | | | | | | leukemia | | | | | | +---------+ + + +--------+ + + | Problem | Weakness | | R53.1 | | Active | 03722840 | +---------+ + + +--------+ + + | Problem | Fall | | W19.XXXA | | Active | 5186925 | +---------+ + + +--------+ + + | Problem | SUICIDAL | V62.84 | | | Active | 5331518 | | | IDEATION | | | [...] | 575.10 | | | Active | 75107691 | | | | | | | | | | | cholecysti | | | | | | | | tis | | | | | | +---------+ + + +--------+ + + | Problem | Radiculopa | | M54.17 | | Active | 2001780 | | | thy, | | | | | | | | lumbosacra | | | | | | | | l region | | | | | | +---------+ + + +--------+ + + | Problem | Tobacco | V65.42 | | | Active | 210285289 | | | abuse | | | | | | | | counseling | | | | | | +---------+ + + +--------+ + + | Problem | 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 | | | | | | | | hip | | | | | | +---------+ + + +--------+ + + | Problem | Family | V16.0 | | | Active | 565744762 | | | history of | | [...] | | N39.3 | | Active | 67243330 | | | incontinen | | | | | | | | ce | | | | | | | | (female) | | | | | | | | (male) | | | | | | +---------+ + + +--------+ + + | Problem | Facet | M46.96 | | | Active | 222157274 | | | arthropath | | | | | | | | y, lumbar | | | | | | +---------+ + + +--------+ + + | Problem | Radiculopa | | M54.12 | | Active | 09573790 | | | thy, | | | | | | | | cervical | | | | | | | | region | | | | | | +---------+ + + +--------+ + + | Problem | At high | Z91.81 | | | Active | 664175630 | | | risk for | | | | | | | | falls | | | | | | +---------+ + + +--------+ + + | Problem | Mobility | Z74.09 | | | Active | 68783365 | | | impaired | | | | | | +---------+ + + +--------+ + + | Problem | 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 | | | | | | +---------+ + + +--------+ + + | Problem | Lump of | 611.72 | | | Active | 39536968 | | | left | | | | | | | | breast | | | | | | +---------+ + + +--------+ + + | Problem | History of | V12.29 | | | Active | 7290324789 | | | goiter | | | | | [address] | +---------+ + + +--------+ + + | Problem | Obesity | | E66.9 | | Active | 452946126 | +---------+ + + +--------+ + + | Problem | Tobacco | | Z72.0 | | Active | 990220212 | | | use | | | | | | +---------+ + + +--------+ + + | Problem | Status | Z96.651 | | | Active | 9359839849 | | | post total | | | | | 02 | | | knee | | | | | | | | replacemen | | | | | | | | t, right | | | | | | +---------+ + + +--------+ + + | Problem | Elevated | | D72.829 | | Active | 085966153 | | | white | | | [...] | F33.9 | | | Active | 71678845 | | | depressive | | | [...] | G89.29 | | | Active | 61466780 | | | chronic | | | | | | | | pain | | | | | | +---------+ + + +--------+ + + | Problem | Radiculopa | | M54.16 | | Active | 733780406 | | | thy, | | | | | | | | lumbar | | | | | | | | region | | | | | | +---------+ + + +--------+ + + | Problem | COPD | | J44.9 | | Active | 61486084 | | | (chronic | | | | | | | | obstructiv | | | | | | | | e | | | | | | | | pulmonary | | | | | | | | disease) | | | | | | +---------+ + + +--------+ + + | Problem | Hypothyroi | | E03.9 | | Active | 06755498 | | | dism | | | | | | +---------+ + + +--------+ + + | Problem | Stress | N39.3 | | | Active | 22563992 | | | incontinen | | | | | | | | ce | | | | | | +---------+ + + +--------+ + + | Problem | Pain in | | M25.551 | | Active | 492617303 | | | right hip | | | | | | +---------+ + + +--------+ + + | Problem | Degenerati | M47.816 | | | Active | 19729132 | | | ve | | | [...]
--- OUTSIDE RECORDS SUMMARY | ~2017-08-27 | XMS ---
Demographics + + + | Address | [address] | | | [address] | | | [place] [address] | + + + | Preferred Language | Unknown | + + + | Marital Status | Unknown | + + + | Orthodox Affiliation | Unknown | + + + | Race | Unknown | + + + | Ethnic Group | Unknown | + + + Author + + + | Author | [facility] | + + + | Organization | [facility] | + + + | Address | [address] | | | [place] [address] | + + + | Phone | | + + + Care Team Providers + + + + | Care Molder Machine Tender Name | Role | Phone | + + + + Unavailable | Unavailable | + + + + PROBLEMS +---------+ + + +--------+ + + | Type | Condition | ICD9-CM | UVJ63-HH | Onset | Condition | SNOMED | | | | Code | Code | Dates | Status | Code | +---------+ + + +--------+ + + | Problem | Acute | C92.00 | | | Active | 70601316 | | | myeloid | | | | | | | | leukemia | | | | | | +---------+ + + +--------+ + + | Problem | Weakness | | R53.1 | | Active | 21964709 | +---------+ + + +--------+ + + | Problem | Fall | | W19.XXXA | | Active | 4840436 | +---------+ + + +--------+ + + | Problem | SUICIDAL | V62.84 | | | Active | 5493103 | | | IDEATION | | | [...] | 575.10 | | | Active | 82942323 | | | | | | | | | | | cholecysti | | | | | | | | tis | | | | | | +---------+ + + +--------+ + + | Problem | Radiculopa | | M54.17 | | Active | 7348379 | | | thy, | | | | | | | | lumbosacra | | | | | | | | l region | | | | | | +---------+ + + +--------+ + + | Problem | Tobacco | V65.42 | | | Active | 246181106 | | | abuse | | | | | | | | counseling | | | | | | +---------+ + + +--------+ + + | Problem | Degenerati | M16.9 | | | Active | 159144128 | | | ve joint | | | | | | | | disease | | | | | | | | (DJD) of | | | | | | | | hip | | | | | | +---------+ + + +--------+ + + | Problem | Family | V16.0 | | | Active | 090946524 | | | history of | | [...] | | N39.3 | | Active | 65902598 | | | incontinen | | | | | | | | ce | | | | | | | | (female) | | | | | | | | (male) | | | | | | +---------+ + + +--------+ + + | Problem | Facet | M46.96 | | | Active | 987269977 | | | arthropath | | | | | | | | y, lumbar | | | | | | +---------+ + + +--------+ + + | Problem | Radiculopa | | M54.12 | | Active | 81902787 | | | thy, | | | | | | | | cervical | | | | | | | | region | | | | | | +---------+ + + +--------+ + + | Problem | At high | Z91.81 | | | Active | 242458999 | | | risk for | | | | | | | | falls | | | | | | +---------+ + + +--------+ + + | Problem | Mobility | Z74.09 | | | Active | 98369963 | | | impaired | | | | | | +---------+ + + +--------+ + + | Problem | 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 | 08206715 | | | 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 | | | | | | +---------+ + + +--------+ + + | Problem | Lump of | 611.72 | | | Active | 28943643 | | | left | | | | | | | | breast | | | | | | +---------+ + + +--------+ + + | Problem | History of | V12.29 | | | Active | 3174265 | | | goiter | | | | | | +---------+ + + +--------+ + + | Problem | Obesity | | E66.9 | | Active | 485283735 | +---------+ + + +--------+ + + | Problem | Tobacco | | Z72.0 | | Active | 573137231 | | | use | | | | | | +---------+ + + +--------+ + + | Problem | Status | Z96.651 | | | Active | 5617230288 | | | post total | | | | | 02 | | | knee | | | | | | | | replacemen | | | | | | | | t, right | | | | | | +---------+ + + +--------+ + + | Problem | Elevated | | D72.829 | | Active | 870156748 | | | white | | | [...] | F33.9 | | | Active | 36055429 | | | depressive | | | [...] | G89.29 | | | Active | 66433476 | | | chronic | | | | | | | | pain | | | | | | +---------+ + + +--------+ + + | Problem | Radiculopa | | M54.16 | | Active | 390623757 | | | thy, | | | | | | | | lumbar | | | | | | | | region | | | | | | +---------+ + + +--------+ + + | Problem | COPD | | J44.9 | | Active | 29705782 | | | (chronic | | | | | | | | obstructiv | | | | | | | | e | | | | | | | | pulmonary | | | | | | | | disease) | | | | | | +---------+ + + +--------+ + + | Problem | Hypothyroi | | E03.9 | | Active | 58104499 | | | dism | | | | | | +---------+ + + +--------+ + + | Problem | Stress | N39.3 | | | Active | 88233279 | | | incontinen | | | | | | | | ce | | | | | | +---------+ + + +--------+ + + | Problem | Pain in | | M25.551 | | Active | 728599249 | | | right hip | | | | | | +---------+ + + +--------+ + + | Problem | Degenerati | M47.816 | | | Active | 21095129 | | | ve | | | [...]
--- OUTSIDE RECORDS SUMMARY | ~2017-08-27 | XMS | Encounter Summary ---
Demographics + + + | Address | [address] | | | [place] [address] | + + + | Home Phone | | + + + | Preferred Language | Unknown | + + + | Marital Status | | + + + | Amish Affiliation | NON | + + + | Race | White | + + + | Ethnic Group | Not or | + + + Author + + + | Author | [facility] | + + + | Organization | [facility] | + + + | [...] Team Providers + +------+ + | Care Clerk Of Court Name | Role | Phone | + +------+ + | Saurav De Los Santos NP | PCP | | + +------+ + Encounter Details +--------+ + + + + | Date | Type | Department | Care Team | Description | +--------+ + + + + | 08/01/ | Anesthesia | [facility] | Gl[place], | | | 2018 | Event | Hematologic | [facility] [address] | | | | | Malignancies at | [address] [place] | | | | | [place] | [place], [place] | | | | | [address] | [address] | | | | | [facility] | [phone] | | | | | Mailcode: [id number] | | | | | | [place] | | | | | | [place], [place] | | | | | | [address] | | | | | | [phone] | | | +--------+ + + + [...] | | | Lumen | 2:Purple; Yes; [id number] | | | +--------+ + +---------+ in [...]
--- OUTSIDE RECORDS SUMMARY | ~2017-08-27 | XMS | Encounter Summary ---
Demographics + + + | Address | [address] | | | [place] [address] | + + + | Home Phone | | + + + | Preferred Language | Unknown | + + + | Marital Status | | + + + | Denominational Affiliation | Unknown | + + + | Race | Unknown | + + + | Ethnic Group | Unknown | + + + Author + + + | Author | [facility] | | | and [place] | + + + | Organization | [facility] | | | and [place] | + + + | Address | Unknown | + + + | Phone | Unavailable | + + + Support + + + + + | Name | Relationship | Address | Phone | + + + + + | Jhony Hutchison | ECON | [address] [place] | | | | | [address] [place] | | | | | [address] | | + + + + + | Florin Pantoja | ECON | Unknown | | + + + + + Care Team Providers + +------+ + | Care Vector Control Specialist Name | Role | Phone | [...] | | | in relapse | [address] | [facility] | | | | | (HCC) AML | [place], | [place], [place] | | | | | (acute | [place] | [address] Phone: | | | | | myeloid | [address] | [phone] | | | | | leukemia) in | Phone: | Fax: | | | | | relapse | [phone] | [phone] | | | | | (HCC) | Fax: | | | | | | Procedures | [phone] | | | | | | CO OFFICE | | | | | | | OUTPATIENT | | | | | | | VISIT 25 | | | | | | | MINUTES | | | | | | | [address] | | | + +--------+ + + + + Encounter Details +--------+ + + + + | Date | Type | Department | Care Team | Description | +--------+ + + + + | 08/12/ | Hospital | [facility] | [facility], | AML (acute myeloid | | 2018 | Encounter | [facility] | Daniel French MD [address] | leukemia) in relapse | | | | ONCOLOGY CLINIC [address] | [facility] | (HCC) (Primary Dx) | | | | [facility] | [place] [address] | | | | | [place] [address] | [phone] | | | | | [phone] | | | +--------+ + + + [...] m the original. Hematology/Oncology Daily Progress Note [facility] [place] Pt. Name/Age/: Jessy Hutchison 51 y.o. 1965 Med. Record Number: [id number] Date of admission: 08/12/2017 Today's Date: 08/12/17 Location: Room/bed info not found The patient's primary care provider is Saurav De Los Santos NP. Identifying Statement: Jessy Hutchison is a 51 y.o. female from [address] [place] [address] with a second relapse of acute myelogenous [...] first complete remission. 1. Presentation to the [facility] emergency room in [facility] on January 272015 with complaints of cough and odynophagia. Complete blood count was notable for a wh ite count of 117,000, hemoglobin 10.7 g/dL, platelet count of 51,000. She was emergently tr ansferred to the [facility] and [facility] [place] were bone marrow biopsy and aspiration at [facility] on February 15, 2016 confirmed acute [...] Cycle#1 MiDaC (1500 mg/m Cytarabine) consolidation at [facility] on March 27, 2016. 4. Cycle#2 MiDaC (1500 mg/m Cytarabine) consolidation at [facility] on May 01, 2016. 5. Cycle#3 MiDaC (1200 mg/m Cytarabine) consolidation at [facility] on May 28, 2016. 6. Cycle#4 MiDaC (1000 mg/m Cytarabine ) consolidation at [facility] on June 25, 2016. 7. Bone Marrow Biopsy and Aspiration July 23, 2016 at the [facility] in [place], [place] specimen # [id number] demonstrated ongoing complete remissio n. Molecular analysis [...] Hgb 13.8, Hct 41.8%, Platelet count 10,000. [id number] U/L, BUN 14 mg/dL, Scr 0.82 mg/dL. 14. Admit [facility] 03/01/2017; Chest X-ray consis tent with pulmonary leukostasis. Hydroxyurea 2 grams po q 4 hours x 3 doses with no change i n WBC. 15. Transfer to [facility]; bone marrow biopsy and aspiration were [...] #1 of high-dose cytarabine consolidation at the [facility] on March 26, 2016. 19. Cycle #2 of cytarabine consolidation at the [facility] [place] on Apr. 20. Cycle #3 of cytarabine consolidation at the [facility] in [place], [place], May 28, 2016. 21. Cycle #4 of cytarabine consolidation chemotherapy at the [facility] in [place], [place], June 25, 2016. 22. Repeat bone marrow biopsy and aspiration on July 23, 2016, at the [facility] in [place], [place], specimen #[id number] demonstrating ongo ing complete remission. 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 28. Admitted to [facility], June 28, 2017. Status post Idarubicin/Cytarabine re-induction chemoth erapy. 29. Repeat bone marrow biopsy July 29, 2017; 80% myeloblasts, discharged from [facility] on August 08, 2017, Current Assessment & Plan Jessy Hutchison returned to clinic on 08/12/2017 with her , Jhony, for follow up, six weeks after failed re-induction chemotherapy with idarubicin/cytarabine at [facility]. Review of systems includes fevers, nausea, vomiting, [...] Chronic constipation COPD (chronic obstructive pulmonary disease) ([facility]) Depression Hyperinflation of lungs Hypothyroidism Insomnia Leukemia in remission ([facility]) Posttraumatic stress disorder Right buttock pain 12/12/2016 Sciatica Thyroid disorder Past Surgical History: Procedure Laterality Date BONE MARROW BIOPSY N/A 07/23/2016 Procedure: BIOPSY / ASPIRATION BONE MARROW; Surgeon: Daniel Patterson MD; Location: [facility] SHORT STAY CARPAL TUNNEL RELEASE 2004 [facility] [place] CHOLECYSTECTOMY 06/2013 [facility]; [place] JOINT REPLACEMENT 01/2014 Knee replacement KNEE ARTHROPLASTY Right 01/2014 [facility]; [place]. PARTIAL HYSTERECTOMY 1989 [facility]; [place]. Social History Social History Marital status: [...] this chart may have been created with [employer] recognition software. Occasi onal wrong-word or sound-alike [...] | + + + | Blood | [facility] [address] | | | [place] [address] | + + + + + | [...] | + + + | Blood | [facility] [address] | | | [place] [address] | + + + Lactate Dehydrogenase (08/12/20171121) + +---------+ + | Component | Value | Ref Range | + +---------+ + | LDH TOTAL | 208 (H) | 91 - 180 U/L | + +---------+ + + + + | Specimen | Performing Laboratory | + + + | Blood | [facility] [address] | | | [place] [address] | + + + Comprehensive Metabolic Panel [...] GLOMERULAR FILTRATION | >=60 mL/min/1.73m2 | | MAURITIAN | RATE,ESTIMATED mL/min/1.28r9Ydoy than | | | | 60 Chronic [...] + + + | Blood | [facility] [address] | | | [place] [address] | + + + CBC w/ Auto [...] | + + + | Blood | [facility] [address] | | | [place] [address] | + + + in this encounter Visit Diagnoses + + | Diagnosis | + + | 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
--- OUTSIDE RECORDS SUMMARY | ~2017-08-27 | XMS | Encounter Summary ---
Demographics + + + | Address | [address] | | | [place] [address] | + + + | Home Phone | | + + + | Preferred Language | Unknown | + + + | Marital Status | | + + + | Mandaen Affiliation | Unknown | + + + | Race | Unknown | + + + | Ethnic Group | Unknown | + + + Author + + + | Author | [facility] | | | and [place] | + + + | Organization | [facility] | | | and [place] | + + + | Address | Unknown | + + + | Phone | Unavailable | + + + Support + + + + + | Name | Relationship | Address | Phone | + + + + + | Jhony Hutchison | ECON | [address] | | | | | [address] | | | | | [address] | | + + + + + | Florin Pantoja | ECON | Unknown | | + + + + + Care Team Providers + +------+ + | Care Personal Clothing Laundry Aide Name | Role | Phone | + +------+ + | Saurav De Los Santos NP | PCP | | + +------+ + Reason for Visit +--------+ + | Reason | Comments | +--------+ + | Other | | +--------+ + Encounter Details +--------+ + + + + | Date | Type | Department | Care Team | Description | +--------+ + + + + | 06/27/ | Telephone | [facility] | Leonardo, | Other | | 2017 | | [facility] | Daniel French MD [address] | | | | | ONCOLOGY CLINIC [address] | [facility] | | | | | [address] | [place] [address] | | | | | [place] [address] | [phone] | | | | | [phone] | | | +--------+ + + + [...]
--- OUTSIDE RECORDS SUMMARY | ~2017-08-27 | XMS | Encounter Summary ---
Demographics + + + | Address | [address] | | | [place] [address] | + + + | Home Phone | | + + + | Preferred Language | Unknown | + + + | Marital Status | | + + + | Roman Catholic Affiliation | NON | + + + | Race | White | + + + | Ethnic Group | Not or | + + + Author + + + | Author | [facility] | + + + | Organization | [facility] | + + + | [...] Team Providers + +------+ + | Care Side Trimmer Name | Role | Phone | + [...] [place] | | | | | | [facility] | | | | | | [place], [place] | | | | | | [address] | | | +--------+ + + + [...]
--- OUTSIDE RECORDS SUMMARY | ~2017-08-27 | XMS | Encounter Summary ---
Demographics + + + | Address | [address] | | | [place] [address] | + + + | Home Phone | | + + + | Preferred Language | Unknown | + + + | Marital Status | | + + + | Latter Day Affiliation | NON | + + + | Race | White | + + + | Ethnic Group | Not or | + + + Author + + + | Author | [facility] | + + + | Organization | [facility] | + + + | Address [...] Providers + +------+ + | Care Truck Safety Inspector Name | Role | Phone | + [...] Typing - Family | | | | [facility] | [address] | Results ) | | | | Mailcode: [id number] | [place], [place] | | | | | [address] | [address] | | | | | [address] [place], | [phone] | | | | | [place] [address] | | | | | | [phone] | | | +--------+ + + + [...]
--- OUTSIDE RECORDS SUMMARY | ~2017-08-27 | XMS | Encounter Summary ---
Demographics + + + | Address | [address] | | | [place] [address] | + + + | Home Phone [...] Team Providers + +------+ + | Care Creel Selector Name | Role | Phone | + [...] | | | | [place] | [place], [place] | | | | | [address] | [address] | | | | | [facility] | [phone] | | | | | Mailcode: [id number] | | | | | | [place] | | | | | | [place], [place] | | | | | | [address] | | | | | | [phone] | | | +--------+ + + + [...]
--- OUTSIDE RECORDS SUMMARY | ~2017-08-27 | XMS | Encounter Summary ---
Demographics + + + | Address | [address] | | | [place] [address] | + + + | Home Phone | | + + + | Preferred Language | Unknown | + + + | Marital Status | | + + + | Shinto Affiliation | NON | + + + [...] Team Providers + +------+ + | Care Back Grinder Name | Role | Phone | + [...] | | | | | | [place], | | | | | | [place] [address] | | | | | | [phone] | | | +--------+ + + + [...]
--- OUTSIDE RECORDS SUMMARY | ~2017-08-27 | XMS | Encounter Summary ---
Demographics + + + | Address | [address] | | | [place] [address] | + + + | Home Phone | | + + + | Preferred Language | Unknown | + + + | Marital Status | | + + + | Mosque Affiliation | Unknown | + + + | Race | Unknown | + + + | Ethnic Group | Unknown | + + + Author + + + | Author | [facility] | | | and [place] | + + + | Organization | [facility] | | | and [place] | + + + | Address | Unknown | + + + | Phone | Unavailable | + + + Support + + + + + | Name | Relationship | Address | Phone | + + + + + | Jhony Hutchison | ECON | [address] | | | | | [place] | | | | | [address] | | + + + + + | Florin Pantoja | ECON | Unknown | | + + + + + Care Team Providers + +------+ + | Care Podiatrist Orthopedic Name | Role | Phone | + [...] + + | 06/27/ | Telephone | [facility] | Leonardo, | Other | | 2017 | | MED [facility] | Daniel French MD [address] | | | | | ONCOLOGY CLINIC [address] | [facility] | | | | | [address] | [place] [address] | | | | | [place] [address] | [phone] | | | | | [phone] | | | +--------+ + + + [...]
--- OUTSIDE RECORDS SUMMARY | ~2017-08-27 | XMS | Encounter Summary ---
Demographics + + + | Address | [address] | | | [place] [address] | + + + | Home Phone | | + + + | Preferred Language | Unknown | + + + | Marital Status | | + + + | Evangelical Affiliation | Unknown | + + + | Race | Unknown | + + + | Ethnic Group | Unknown | + + + Author + + + | Author | [facility] | | | and [place] | + + + | Organization | [facility] | | | and [place] | + + + | Address | Unknown | + + + | Phone | Unavailable | + + + Support + + + + + | Name | Relationship | Address | Phone | + + + + + | Jhony Hutchison | ECON | [address] | | | | | [place] | | | | | [address] | | + + + + + | Florin Pantoja | ECON | Unknown | | + + + + + Care Team Providers + +------+ + | Care Parking Meter Collector Name | Role | Phone | + [...] + + | 06/27/ | Telephone | [facility] | Leonardo, | Other | | 2017 | | MED [facility] | Daniel French MD [address] | | | | | ONCOLOGY CLINIC [address] | [facility] | | | | | [address] | [place] [address] | | | | | [place] [address] | [phone] | | | | | [phone] | | | +--------+ + + + [...]
--- OUTSIDE RECORDS SUMMARY | ~2017-08-27 | XMS | Encounter Summary ---
Demographics + + + | Address | [address] | | | [place] [address] | + + + | Home Phone | | + + + | Preferred Language | Unknown | + + + | Marital Status | | + + + | Islam Affiliation | NON | + + + | Race | White | + + + | Ethnic Group | Not or | + + + Author + + + | Author | [facility] | + + + | Organization | [facility] | + + + | Address [...] Team Providers + +------+ + | Care Serging Machine Operator Automatic Name | Role | Phone | + [...] | | | Road Mailcode: | [address] [place], [place] | | | 08/08/ | | [address] | [address] | | | 2018 | | [facility] [place], | [phone] | | | | | [place] [address] | | | | | | [phone] | Pepe Chavis MD | | | | | | [address] | | | | | | [place], | | | | | | [place] [address] | | | | | | [phone] | | | | | | | | | | | | Kay Duarte MD | | | | | | [address] | | | | | | [place], | | | | | | [place] [address] | | | | | | [phone] | | | | | | | | | | | | Angelia Thompson, | | | | | | [address] | | | | | | [address] | | | | | | [place], [place] | | | | | | [address] | | | | | | [phone] | | | | | | | [...] note may be different from the original. [facility] Discharge Summary Discharging Provider: KIMMIE BOSE [...] state Chemotherapy induced diarrhea Procedures: Hospital Course: [facility] Physician: Pepe Chavis MD Local Oncologist: Daniel [...] trying to get Sorafanib [facility], but so far they have denied all [...] have fevers within 24 hours of leaving. [place] to be most c/w disease fevers . [...] presents as a transfer from outside hospital ([facility]) where she pres ented with body [...] Pertinent Diagnostics: -BM Bx 06/21/17 ([facility] On[facility] [id number]): -Results: 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 [...] that I, or Nurse Practitioner or Physician Assembly Lead Person working with me, had a face to face encounter with this patient on 08/06/2017 On behalf of Attending Physician: Pepe Chavis MD I am ordering and certify that the following services are medically necessary [facility] Assisted Evaluate and Treat I am ordering and certify that the following services are medically necessary [facility] Physical Therapy Evaluate and Treat I certify that the patient is homebound based on the following clinical findings Post-hospi tyler weakness, decreased strength and endurance, and tires easily with minimal exertion Follow Up: Schedule the following appointment(s) when you get home Daniel Patterson MD. Go on 08/12/2017. Specialty: Hematology & Oncology Why: You have an appointment at 10:30am to see Dr. Patterson at [facility] . Further appointments will be arranged by you as necessary Contact information [facility] [address] [place] [address] SAURAV SMALL NP . Specialty: Nurse Practitioner Adult Health Contact information [facility] [address] [place] [address] Daniel Patterson MD . Specialty: Hematology & Oncology Contact information [facility] [address] [facility] [address] [place] [address] Greater than 35 minutes spent arranging discharge, medications and follow up NORIS BANEGAS [address] [facility] Mailcode: [address] [place], [place] [id number] in this encounter Discharge Instructions Cierra Adair [...] | | | | | | | ([facility]) | | | | | | + [...] for Hematologic Malignancies Attending: Pepe Chavis MD [facility] Physician: Pepe Chavis MD Local Oncologist: Daniel [...] support locally through Dr. Patterson's office in [place]. Dr. Chavis spoke with Dr. Patterson 08/07. [...] presents as a transfer from outside hospital ([facility]) where she pres ented with body [...] Pertinent Diagnostics: -BM Bx 06/21/17 ([facility]ated On[facility] [id number]): -Results: 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 [...] aggressive chemo will be offered. KIMMIE BOSE [facility] [address]K [address] [facility] Mailcode: [address] [place] [address] Pepe Chavis MD - 08/07/2017 12:57 PM [...] for Hematologic Malignancies Attending: Pepe Chavis MD [facility] Physician: Pepe Chavis MD Local Oncologist: Daniel [...] support locally through Dr. Patterson's office in [place]. -Pancytopenia secondary to chemotherapy: standard transfusion parameters. [...] presents as a transfer from outside hospital ([facility]) where she pres ented with body [...] Pertinent Diagnostics: -BM Bx 06/21/17 ([facility]ated On[facility] [id number]): -Results: 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 [...] aggressive chemo will be offered. LUKASZ HOOD [facility] [address]K [address] [facility] Mailcode: [address] [place] [address] Pepe Chavis MD - 08/05/2017 10:04 PM [...] for Hematologic Malignancies Attending: Pepe Chavis MD [facility] Physician: Pepe Chavis MD Local Oncologist: Daniel [...] presents as a transfer from outside hospital ([facility]) where she pres ented with body [...] Pertinent Diagnostics: -BM Bx 06/21/17 (Integrated Oncology [id number]): -Results: 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 [...] aggressive chemo will be offered. LUKASZ HOOD [facility] [address] [facility] Mailcode: [address] [place] [address] Pepe Chavis MD - 08/04/2017 12:26 PM [...] for Hematologic Malignancies Attending: Pepe Chavis MD [facility] Physician: Pepe Chavis MD Local Oncologist: Daniel [...] presents as a transfer from outside hospital ([facility]) where she pres ented with body [...] Pertinent Diagnostics: -BM Bx 06/21/17 (Integrated Oncology [id number]): -Results: 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 [...] aggressive chemo will be offered. LUKASZ HOOD [facility] [address]A [address] [facility] Mailcode: [address] [place], [place] [id number] Pepe Chavis MD - 08/03/2017 11:59 AM [...] for Hematologic Malignancies Attending: Pepe Chavis MD [facility] Physician: Pepe Chavis MD Local Oncologist: Daniel [...] presents as a transfer from outside hospital ([facility]) where she pres ented with body [...] Pertinent Diagnostics: -BM Bx 06/21/17 (Integrated Oncology [id number]): -Results: 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 [...] Disposition: Anticipate 4-6 week hospitalization. LUKASZ HOOD [facility] [address] [facility] Mailcode: [address] [place] [address] Kay Duarte MD - 08/02/2017 2:36 PM PDTFormatting of this note may be different from [facility] original. Hematologic Malignancies/Blood and marrow Transplant Attending Note I have reviewed and agree with the previously summarized HPI, PMH, FH, SH, and ROS as docum ented in the detailed note of the NICOLE provider. I also performed a history and physical examination of the patient myself and agree with [facility] documented findings and plan of care. [...] orders for today. Kay Duarte MD, MS [facility] for Hematologic Malignancies Attending physician s total time is 35 minutes, >50% spent counseling and coordination of care. [facility] DEPARTMENT: [id number] - [facility] FACULTY MPV Place of Service: [id number] - Inpatient Date of Service: 08/02/2017 Modifiers: None Suggested CPT: 88614 - Subsequent, Detailed/High complex 35 min ######################################################### [...] for Hematologic Malignancies Attending: Kay Duarte MD [facility] Physician: Pepe Chavis MD Local Oncologist: Daniel [...] presents as a transfer from outside hospital ([facility]) where she pres ented with body [...] Pertinent Diagnostics: -BM Bx 06/21/17 (Integrated Oncology [id number]): -Results: 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 LEATHA TAPIA NP [facility] [address]K [address] [facility] Mailcode: [address] [place] [address] Kay Duarte MD - 08/01/2017 [...] orders for today. Kay Duarte MD, MS [facility] for Hematologic Malignancies Attending physician s total time is 35 minutes, >50% spent counseling and coordination of care. [facility] DEPARTMENT: [id number] - [facility] FACULTY MPV Place of Service: - Inpatient Date of Service: 08/01/2017 Modifiers: None Suggested CPT: 69414 - Subsequent, Detailed/High complex 35 min ######################################################### [...] for Hematologic Malignancies Attending: Kay Duarte MD [facility] Physician: Pepe Chavis MD Local Oncologist: Daniel [...] presents as a transfer from outside hospital ([facility]) where she pres ented with body [...] Pertinent Diagnostics: -BM Bx 06/21/17 (Integrated Oncology [id number]): -Results: 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 LEATHA TAPIA NP [place] [address] [place] [address] Mailcode: [address]13 [place] [address] Kay Duarte MD - 07/31/2017 2:40 PM PDTFormatting of this note may be different from [facility] original. 07/31/2017 Hematologic Malignancies/Blood and marrow Transplant Attending Note I have reviewed and agree with the previously summarized HPI, PMH, FH, SH, and ROS as docum ented in the detailed note of the NICOLE provider. I also performed a history and physical examination of the patient myself and agree with [facility] documented findings and plan of care. [...] and orders for today. Kay Duarte MD, [facility] for Hematologic Malignancies Attending physician s total time is 35 minutes, >50% spent counseling and coordination of care. [facility] DEPARTMENT: [id number] - [facility] FACULTY M[address]ro Place of Service: - Inpatient Date of Service: 07/31/2017 Modifiers: None Suggested CPT: 99291 - Subsequent, Detailed/High complex 35 min ######################################################### [...] 07/29/2017 FIBRINOGEN 631 (H) 07/29/2017 Leatha Tapia, SAMPLE FINISHER - 07/31/2017 12:28 PM PDTFormatting of this note may be different f rom the original. Daily NICOLE Note - Chemotherapy Admit Center for Hematologic Malignancies Attending: Kay Duarte MD [facility] Physician: Pepe Chavis MD Local Oncologist: Daniel [...] presents as a transfer from outside hospital ([facility]) where she pres ented with body [...] Pertinent Diagnostics: -BM Bx 06/21/17 ([facility] On[facility] [id number]): -Results: 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 LEATHA TAPIA NP [facility] [address]Y [address] [facility] Mailcode: [facility] [place] [address] Shayna Gardiner PA - 07/30/2017 3:59 PM PDTFormatting of this note may be different fro m the original. Daily NICOLE Note - Chemotherapy Admit Center for Hematologic Malignancies Attending: Kay Duarte MD [facility] Physician: Pepe Chavis MD Local Oncologist: Daniel [...] presents as a transfer from outside hospital ([facility]) where she pres ented with body [...] Pertinent Diagnostics: -BM Bx 06/21/17 ([facility] On[facility] [id number]): -Results: 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 Anticipate 4-6 week hospitalization. LUKASZ HOOD [facility] [address] [facility] Mailcode: [address] [place] [address] Kay Duarte MD - 07/30/2017 1:01 PM [...] of the patient myself and agree with [facility] documented findings and plan of care. [...] orders for today. Kay Duarte MD, MS [facility] for Hematologic Malignancies Attending physician s total time is 35 minutes, >50% spent counseling and coordination of care. [facility] DEPARTMENT: [id number] - [facility] FACULTY MPV Place of Service: - Inpatient Date of Service: 07/30/2017 Modifiers: None Suggested CPT: 81213 - Subsequent, Detailed/High complex 35 min ######################################################### [...] orders for today. Kay Duarte MD, MS [facility] for Hematologic Malignancies Attending physician s total time is 35 minutes, >50% spent counseling and coordination of care. [facility] DEPARTMENT: [id number] - [facility] FACULTY MPV Place of Service: - Inpatient Date of Service: 07/29/2017 Modifiers: None Suggested CPT: 48293 - Subsequent, Detailed/High complex 35 min ######################################################### [...] for Hematologic Malignancies Attending: Kar Aggarwal MD [facility] Physician: Pepe Chavis MD Local Oncologist: Daniel [...] presents as a transfer from outside hospital ([facility]) where she pres ented with body [...] Pertinent Diagnostics: -BM Bx 06/21/17 (Integrated Oncology [id number]): -Results: 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 Anticipate 4-6 week hospitalization LUKASZ HOOD [facility] [address]W [address] [facility] Mailcode: [address] [place] [address] Leatha Tapia NP - 07/28/2017 2:45 PM PDTFormatting of this note may be different f rom the original. 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 Mailcode: [address] [place] [address] Kar Aggarwal MD - 07/28/2017 10:00 AM [...] -prophylactic antimicrobials CODE: FULL KAR AGGARWAL MD cook pie [facility] Center for Hematologic Malignancies [email or web address] [email or web address] [phone] Kar Aggarwal MD - 07/27/2017 4:22 PM [...] complete details. CODE: FULL KAR AGGARWAL MD cook pie [facility] Center for Hematologic Malignancies [facility] [email or web address] [phone] Leatha Tapia NP - 07/27/2017 1:18 PM PDTFormatting of this note may be different f rom the original. Daily NICOLE Note - Chemotherapy Admit Center for Hematologic Malignancies Attending: Kar Aggarwal MD [facility] Physician: Pepe Chavis MD Local Oncologist: Daniel [...] Subjective: Disappointed she won't be home for [facility]. Slept in this morning. Feeling well with [...] presents as a transfer from outside hospital ([facility]) where she pres ented with body [...] Pertinent Diagnostics: -BM Bx 06/21/17 (Integrated Oncology [id number]): -Results: 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 [...] Anticipate 4-6 week hospitalization LEATHA TAPIA NP [place] [address] [facility] Mailcode: [address] [place], [place] [id number] Leatha Tapia NP - 07/26/2017 2:46 PM PDTFormatting of this note may be different f rom the original. Daily NICOLE Note - Chemotherapy Admit Center for Hematologic Malignancies Attending: Angelia Thompson MD [facility] Physician: Pepe Chavis MD Local Oncologist: Daniel [...] presents as a transfer from outside hospital ([facility]) where she pres ented with body [...] Pertinent Diagnostics: -BM Bx 06/21/17 (Integrated Oncology [id number]): -Results: 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 [...] Anticipate 4-6 week hospitalization LEATHA TAPIA NP [facility] [address] [facility] Mailcode: [address] [place], [place] [id number] Angelia Thompson MD - 07/26/2017 12:14 PM [...] inhaler 1 puff, 1 puff, inhalation, Q6H CA N alteplase (CATHFLO ACTIVASE) injection 2 mg, 2 mg, Intracatheter, PRN aluminum-magnesium hydroxide-simethicone (MAALOX; MYLANTA) 200-200-20 mg/5 mL suspension 30 mL, 30 mL, oral, QID PRN amLODIPine (NORVASC) tablet 10 mg, 10 mg, oral, DAILY dextrose 50 % in water IV 25 mL, 25 mL, intravenous, PRN rkyitzkbdkDSYMO-wqglarqbz-ZIHTKS (SPECIAL MOUTHWASH) suspension (compound) 5-10 mL, 5-10 [...] for Hematologic Malignancies Attending: Angelia Thompson MD [facility] Physician: Pepe Chavis MD Local Oncologist: Daniel [...] presents as a transfer from outside hospital ([facility]) where she pres ented with body [...] Pertinent Diagnostics: -BM Bx 06/21/17 (Integrated Oncology [id number]): -Results: 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 [...] Anticipate 4-6 week hospitalization LEATHA TAPIA NP [facility] [address] [facility] Mailcode: [address] [place], [place] [id number] Angelia Thompson MD - 07/25/2017 9:58 AM [...] Feels well today. Went to [employer] yesterday, was nice to be up on [...] inhaler 1 puff, 1 puff, inhalation, Q6H CA N alteplase (CATHFLO ACTIVASE) injection 2 mg, 2 mg, Intracatheter, PRN aluminum-magnesium hydroxide-simethicone (MAALOX; MYLANTA) 200-200-20 mg/5 mL suspension 30 mL, 30 mL, oral, QID PRN amLODIPine (NORVASC) tablet 10 mg, 10 mg, oral, DAILY dextrose 50 % in water IV 25 mL, 25 mL, intravenous, PRN lmeqlxniexKREUT-iwyfionoz-OSEFHB (SPECIAL MOUTHWASH) suspension (compound) 5-10 mL, 5-10 [...] mg, oral, HS PRN Sharif Felisha Castaneda, OBSTETRICS SCRUB NURSE - 07/24/2017 4:08 PM PDTName:Rhea Hutchison Date: [...] and assistance as needed. FELISHA Castaneda SHARIF, [facility]ETRICS [facility]CRUB [facility] [address] [facility] Mailcode: [facility] [place] [address] Leatha Tapia NP - 07/24/2017 12:53 PM PDTFormatting of this note may be different f rom the original. 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 Mailcode: [address] [place] [address] Angelia Thompson MD - 07/24/2017 10:13 AM [...] inhaler 1 puff, 1 puff, inhalation, Q6H CA N alteplase (CATHFLO ACTIVASE) injection 2 mg, 2 mg, Intracatheter, PRN aluminum-magnesium hydroxide-simethicone (MAALOX; MYLANTA) 200-200-20 mg/5 mL suspension 30 mL, 30 mL, oral, QID PRN amLODIPine (NORVASC) tablet 10 mg, 10 mg, oral, DAILY dextrose 50 % in water IV 25 mL, 25 mL, intravenous, PRN ddmilabyomVHZRB-crxgrpptm-IVFAVX (SPECIAL MOUTHWASH) suspension (compound) 5-10 mL, 5-10 [...] for Hematologic Malignancies Attending: Angelia Thompson MD [facility] Physician: Pepe Chavis MD Local Oncologist: Daniel [...] presents as a transfer from outside hospital ([facility]) where she pres ented with body [...] Pertinent Diagnostics: -BM Bx 06/21/17 (Integrated Oncology [id number]): -Results: 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 [...] 4-6 week hospitalization [facility] [place] [address] [facility] Mailcode: [facility] [place] [address] Angelia Thompson MD - 07/23/2017 9:32 AM [...] inhaler 1 puff, 1 puff, inhalation, Q6H CA N alteplase (CATHFLO ACTIVASE) injection 2 mg, 2 mg, Intracatheter, PRN aluminum-magnesium hydroxide-simethicone (MAALOX; MYLANTA) 200-200-20 mg/5 mL suspension 30 mL, 30 mL, oral, QID PRN amLODIPine (NORVASC) tablet 10 mg, 10 mg, oral, DAILY dextrose 50 % in water IV 25 mL, 25 mL, intravenous, PRN aslzlkcihcPYGJQ-chmlsadlg-NBOKLI (SPECIAL MOUTHWASH) suspension (compound) 5-10 mL, 5-10 [...] for Hematologic Malignancies Attending: Angelia Thompson MD [facility] Physician: Pepe Chavis MD Local Oncologist: Daniel [...] presents as a transfer from outside hospital ([facility]) where she pres ented with body [...] Pertinent Diagnostics: -BM Bx 06/21/17 ([facility]ated Oncology [id number]): -Results: 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 Anticipate 4-6 week hospitalization LUKAS[facility] HOOD [facility] [address] [facility] Mailcode: [address] [place] [address] Angelia Thompson MD - 07/22/2017 9:08 AM [...] therapy planned. [facility]. She completed therapy [...] inhaler 1 puff, 1 puff, inhalation, Q6H CA N alteplase (CATHFLO ACTIVASE) injection 2 mg, 2 mg, Intracatheter, PRN aluminum-magnesium hydroxide-simethicone (MAALOX; MYLANTA) 200-200-20 mg/5 mL suspension 30 mL, 30 mL, oral, QID PRN amLODIPine (NORVASC) tablet 10 mg, 10 mg, oral, DAILY dextrose 50 % in water IV 25 mL, 25 mL, intravenous, PRN jtoolpteamYZERQ-vojdvscwd-IADQSF (SPECIAL MOUTHWASH) suspension (compound) 5-10 mL, 5-10 [...] for Hematologic Malignancies Attending: Angelia Thompson MD [facility] Physician: Pepe Chavis MD Local Oncologist: Daniel [...] Requires potassium, phos and magnesium today. Subjective: [place] more tired yesterday and then very cold [...] presents as a transfer from outside hospital ([facility]) where she pres ented with body [...] Pertinent Diagnostics: -BM Bx 06/21/17 (Integrated Oncology [id number]): -Results: 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 Anticipate 4-6 week hospitalization [facility]AS[facility] HOOD [facility] [address] [facility] Mailcode: [address] [place] [address] Angelia Thompson MD - 07/21/2017 10:00 AM [...] inhaler 1 puff, 1 puff, inhalation, Q6H CA N alteplase (CATHFLO ACTIVASE) injection 2 mg, 2 mg, Intracatheter, PRN aluminum-magnesium hydroxide-simethicone (MAALOX; MYLANTA) 200-200-20 mg/5 mL suspension 30 mL, 30 mL, oral, QID PRN amLODIPine (NORVASC) tablet 10 mg, 10 mg, oral, DAILY dextrose 50 % in water IV 25 mL, 25 mL, intravenous, PRN intjvgpfcrTVAZK-wlowgrlde-IWGUFH (SPECIAL MOUTHWASH) suspension (compound) 5-10 mL, 5-10 [...] for Hematologic Malignancies Attending: Kay Duarte MD [facility] Physician: Pepe Chavis MD Local Oncologist: Daniel [...] presents as a transfer from outside hospital ([facility]) where she pres ented with body [...] Pertinent Diagnostics: -BM Bx 06/21/17 (Integrated Oncology [id number]): -Results: 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 Anticipate 4-6 week hospitalization LUKASZ HOOD [facility] [address] [facility] Mailcode: [address] [place] [address] Angelia Thompson MD - 07/20/2017 9:25 AM [...] inhaler 1 puff, 1 puff, inhalation, Q6H CA N alteplase (CATHFLO ACTIVASE) injection 2 mg, 2 mg, Intracatheter, PRN aluminum-magnesium hydroxide-simethicone (MAALOX; MYLANTA) 200-200-20 mg/5 mL suspension 30 mL, 30 mL, oral, QID PRN amLODIPine (NORVASC) tablet 10 mg, 10 mg, oral, DAILY dextrose 50 % in water IV 25 mL, 25 mL, intravenous, PRN tzykupffslWTQGO-kqzgzhrrd-SUKAYP (SPECIAL MOUTHWASH) suspension (compound) 5-10 mL, 5-10 [...] for Hematologic Malignancies Attending: Kay Duarte MD [facility] Physician: Pepe Chavis MD Local Oncologist: Daniel [...] presents as a transfer from outside hospital ([facility]) where she pres ented with body [...] Pertinent Diagnostics: -BM Bx 06/21/17 ([facility] [id number]): -Results: 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 [...] Anticipate 4-6 week hospitalization Emily Galdamez PA-C [facility] [address] [facility] Mailcode: Kpv[address] [place] [address] Kay Duarte MD - 07/19/2017 10:42 AM PDTFormatting of this note may be different from [facility] original. 07/19/2017 Hematologic Malignancies/Blood and marrow Transplant Attending Note I have reviewed and agree with the previously summarized HPI, PMH, FH, SH, and ROS as docum ented in the detailed note of the NICOLE provider. I also performed a history and physical examination of the patient myself and agree with [facility] documented findings and plan of care. [...] orders for today. Kay Duarte MD, MS [facility] for Hematologic Malignancies Attending physician s total time is 35 minutes, >50% spent counseling and coordination of care. [facility] DEPARTMENT: [id number] - [facility]ACULT[facility] MPV Place of Service: [id number] - Inpatient Date of Service: 07/19/2017 Modifiers: None Suggested CPT: 77698 - Subsequent, Detailed/High complex 35 min ######################################################### [...] of this note may be different from [facility] original. 07/18/2017 Hematologic Malignancies/Blood and marrow Transplant Attending Note I have reviewed and agree with the previously summarized HPI, PMH, FH, SH, and ROS as docum ented in the detailed note of the NICOLE provider. I also performed a history and physical examination of the patient myself and agree with [facility] documented findings and plan of care. [...] orders for today. Kay Duarte MD, MS [facility] for Hematologic Malignancies Attending physician s total time is 35 minutes, >50% spent counseling and coordination of care. [facility] DEPARTMENT: [id number] - [facility] MPV Place of Service: - Inpatient Date of Service: 07/18/2017 Modifiers: None Suggested CPT: 86210 - Subsequent, Detailed/High complex 35 min ######################################################### [...] for Hematologic Malignancies Attending: Kay Duarte MD [facility] Physician: Pepe Chavis MD Local Oncologist: Daniel [...] presents as a transfer from outside hospital ([facility]) where she pres ented with body [...] Pertinent Diagnostics: -BM Bx 06/21/17 ([facility] [id number]): -Results: 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 [...] Anticipate 4-6 week hospitalization Emily Galdamez PA-C [facility] [address] [facility] Mailcode: K[address] [place] [address] Emily Galdamez PA-C - 07/17/2017 2:24 PM PDTFormatting of this note may be different from the original. Daily NICOLE Note - Chemotherapy Admit Center for Hematologic Malignancies Attending: Kay Duarte MD [facility] Physician: Pepe Chavis MD Local Oncologist: Daniel [...] [facility] Objective: Last Vitals: BP 140/88 | Pulse [...] presents as a transfer from outside hospital ([facility]) where she pres ented with body [...] Pertinent Diagnostics: -BM Bx 06/21/17 ([facility] [id number]): -Results: 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 [...] Anticipate 4-6 week hospitalization Emily Galdamez PA-C [facility] [address]K [address] [facility] Mailcode: [address] [place] [address] Kay Duarte MD - 07/17/2017 11:10 AM PDTFormatting of this note may be different from [facility] original. 07/17/2017 Hematologic Malignancies/Blood and marrow Transplant Attending Note I have reviewed and agree with the previously summarized HPI, PMH, FH, SH, and ROS as docum ented in the detailed note of the NICOLE provider. I also performed a history and physical examination of the patient myself and agree with [facility] documented findings and plan of care. [...] orders for today. Kay Duarte MD, MS [facility] for Hematologic Malignancies Attending physician s total time is 35 minutes, >50% spent counseling and coordination of care. [facility] DEPARTMENT: [id number] - [facility] MPV Place of Service: - Inpatient Date of Service: 07/17/2017 Modifiers: None Suggested CPT: 15714 - Subsequent, Detailed/High complex 35 min ######################################################### [...] orders for today. Kay Duarte MD, MS [facility] for Hematologic Malignancies Attending physician s total time is 35 minutes, >50% spent counseling and coordination of care. [facility] DEPARTMENT: [id number] - [facility] MPV Place of Service: - Inpatient Date of Service: 07/16/2017 Modifiers: None Suggested CPT: 39716 - Subsequent, Detailed/High complex 35 min ######################################################### [...] for Hematologic Malignancies Attending: Allyson Duarte MD [facility] Physician: Pepe Chavis MD Local Oncologist: Daniel [...] presents as a transfer from outside hospital ([facility]) where she pres ented with body [...] Pertinent Diagnostics: -BM Bx 06/21/17 ([facility] [id number]): -Results: 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 [...] 4-6 week hospitalization Ellis Mejia PA-C, [facility] [address]K [address] [facility] Mailcode: [address] [place] [address] Kay Duarte MD - 07/15/2017 3:34 PM PDTFormatting of this note may be different from [facility] original. 07/15/2017 Hematologic Malignancies/Blood and marrow Transplant Attending Note I have reviewed and agree with the previously summarized HPI, PMH, FH, SH, and ROS as docum ented in the detailed note of NICOLE provider. I also performed a history and physical examination of the patient myself and agree with [facility] documented findings and plan of care. [...] orders for today. Kay Duarte MD, MS [facility] for Hematologic Malignancies Attending physician s total time is 35 minutes, >50% spent counseling and coordination of care. [facility] DEPARTMENT: [id number] - [facility] MPV Place of Service: - Inpatient Date of Service: 07/15/2017 Modifiers: None Suggested CPT: 22887 - Subsequent, Detailed/High complex 35 min ######################################################### [...] 07/15/2017 FIBRINOGEN 503 (H) 07/15/2017 Ellis Mejia PA-C,[facility] - 07/15/2017 10:11 AM PDTFormatting of this note may be different f rom the original. Daily NICOLE Note - Chemotherapy Admit Center for Hematologic Malignancies Attending: Allyson Montero [facility] Physician: Pepe Chavis MD Local Oncologist: Daniel [...] presents as a transfer from outside hospital ([facility]) where she pres ented with body [...] Pertinent Diagnostics: -BM Bx 06/21/17 ([facility] [id number]): -Results: 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 [...] proctitis, HSM with scattered areas of li amria m AML infiltration, extramedullary hematopoiesis or microabscesses [...] Anticipate 4-6 week hospitalization Ellis Mejia PA-C, [facility] [address] Mailcode: [facility] [place] [address] Emily Galdamez PA-C - 07/14/2017 12:02 PM PDTFormatting of this note may be different from the original. Daily NICOLE Note - Chemotherapy Admit Center for Hematologic Malignancies Attending: Pepe Chavis MD [facility] Physician: Pepe Chavis MD Local Oncologist: Daniel [...] presents as a transfer from outside hospital ([facility]) where she pres ented with body [...] Pertinent Diagnostics: -BM Bx 06/21/17 ([facility] [id number]): -Results: 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 [...] Anticipate 4-6 week hospitalization Emily Galdamez PA-C [address] [facility] Mailcode: [address] [place] [address] Pepe Chavis MD - 07/14/2017 10:49 AM PDTFormatting of this note may be different from th e original. 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 Was in CR2 and then relapsed. June 21, 2017 ([facility] [id number]); Hypercellular marrow (90%) with relap sed acute myelogenous leukemia (60%); Blasts positive for CD117 and CD 33, negative for CD34 , CD71, CD61, CD3 and PAX-5. - remains FLT3 ITD by [employer] (very elevated allelic burden, full panel pending) [...] for Hematologic Malignancies Attending: Kay Duarte MD [facility] Physician: Pepe Chavis MD Local Oncologist: Daniel [...] presents as a transfer from outside hospital ([facility]) where she pres ented with body [...] Pertinent Diagnostics: -BM Bx 06/21/17 ([facility] [id number]): -Results: 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 Emily Galdamez PA-C [facility] [address] [facility] Mailcode: [facility] [place], [place] [id number] Kay Duarte MD - 07/13/2017 11:21 AM PDTFormatting of this note may be different from e original. 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 Was in CR2 and then relapsed. June 21, 2017 ([facility] [id number]); Hypercellular marrow (90%) with relap sed acute myelogenous leukemia (60%); Blasts positive for CD117 and CD 33, negative for CD34 , CD71, CD61, CD3 and PAX-5. - remains FLT3 ITD by [employer] (full panel pending) I rounded today in [...] including goals of care and treatment expectations. [facility] for Hematologic Malignancies [facility] Emily Galdamez PA-C - 07/12/2017 1:23 PM PDTFormatting of this note may be different from the original. Daily NICOLE Note - Chemotherapy Admit Center for Hematologic Malignancies Attending: Kar Aggarwal MD [facility] Physician: Pepe Chavis MD Local Oncologist: Daniel [...] presents as a transfer from outside hospital ([facility]) where she pres ented with body [...] Pertinent Diagnostics: -BM Bx 06/21/17 ([facility] [id number]): -Results: 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 Emily Galdamez PA-C [address] [facility] Mailcode: [address] [place] [address] Kar Aggarwal MD - 07/12/2017 11:00 AM PDTFormatting of this note may be different fro m the original. 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 Was in CR2 and then relapsed. June 21, 2017 ([facility] [id number]); Hypercellular marrow (90%) with relap sed acute myelogenous leukemia (60%); Blasts positive for CD117 and CD 33, negative for CD34 , CD71, CD61, CD3 and PAX-5. - remains FLT3 ITD by [employer] (full panel pending) I rounded today in [...] care and treatment expectations. KAR AGGARWAL MD cook pie [facility] Center for Hematologic Malignancies [facility] [email or web address] [phone] Galdamez PA-C - 07/11/2017 12:55 PM PDTFormatting of this note may be different from the original. Daily NICOLE Note - Chemotherapy Admit Center for Hematologic Malignancies Attending: Kar Aggarwal MD [facility] Physician: Pepe Chavis MD Local Oncologist: Daniel [...] presents as a transfer from outside hospital ([facility]) where she pres ented with body [...] Pertinent Diagnostics: -BM Bx 06/21/17 ([facility] [id number]): -Results: 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 Emily Galdamez PA-C [facility] [address] [facility] Mailcode: [address] [place] [address] Kar Aggarwal MD - 07/11/2017 10:55 AM PDTFormatting of this note may be different fro m the original. 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 Was in CR2 and then relapsed. June 21, 2017 ([facility] [id number]); Hypercellular marrow (90%) with relap sed acute myelogenous leukemia (60%); Blasts positive for CD117 and CD 33, negative for CD34 , CD71, CD61, CD3 and PAX-5. - remains FLT3 ITD by [employer] (full panel pending) I rounded today in [...] care and treatment expectations. KAR AGGARWAL MD cook pie [facility] Center for Hematologic Malignancies [facility] [email or web address] [phone], KimberlyVESTA - 07/10/2017 4:25 PM PDTFormatting of this note may be di fferent from the original. Daily NICOLE Note - Chemotherapy Admit Center for Hematologic Malignancies Attending: Kar Aggarwal MD [facility] Physician: Pepe Chavis MD Local Oncologist: Daniel [...] presents as a transfer from outside hospital ([facility]) where she pres ented with body [...] Pertinent Diagnostics: -BM Bx 06/21/17 ([facility] [id number]): -Results: 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 [...] days. -Sorafenib 400 mg daily (sent to [facility], awaiting auth) -Chemo Day: 10 Patient is [...] 4-6 week hospitalization. Malena Foster, VESTA KIDD [facility] [address] [facility] Mailcode: [facility] [place] [address] Kar Aggarwal MD - 07/10/2017 11:19 AM PDTFormatting of this note may be different fro m the original. 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 Was in CR2 and then relapsed. June 21, 2017 ([facility] [id number]); Hypercellular marrow (90%) with relap sed acute myelogenous leukemia (60%); Blasts positive for CD117 and CD 33, negative for CD34 , CD71, CD61, CD3 and PAX-5. - remains FLT3 ITD by [employer] (full panel pending) I rounded today in [...] care and treatment expectations. KAR AGGARWAL MD cook pie [facility] Center for Hematologic Malignancies [facility] [email or web address] [phone] Foster ANP - 07/09/2017 3:15 PM PDTFormatting of this note may be di fferent from the original. Daily NICOLE Note - Chemotherapy Admit Center for Hematologic Malignancies Attending: Kar Aggarwal MD [facility] Physician: Pepe Chavis MD Local Oncologist: Daniel [...] presents as a transfer from outside hospital ([facility]) where she pres ented with body [...] Pertinent Diagnostics: -BM Bx 06/21/17 ([facility] [id number]): -Results: 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 [...] days. -Sorafenib 400 mg daily (sent to [facility], awaiting auth) -Chemo Day: 9 Patient is [...] week hospitalization. Malena Foster, VESTA FOSTER, VESTA [facility] [address]T [address] [facility] Mailcode: [address] [place], [place] [id number] Kar Aggarwal MD - 07/09/2017 10:30 AM PDTFormatting of this note may be different fro m the original. 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 Was in CR2 and then relapsed. June 21, 2017 ([facility] [id number]); Hypercellular marrow (90%) with relap sed acute myelogenous leukemia (60%); Blasts positive for CD117 and CD 33, negative for CD34 , CD71, CD61, CD3 and PAX-5. - remains FLT3 ITD by [employer] (full panel pending) I rounded today in [...] care and treatment expectations. KAR AGGARWAL MD cook pie [facility] Center for Hematologic Malignancies [facility] [email or web address] [phone] Foster ANP - 07/08/2017 6:40 PM PDTFormatting of this note may be di fferent from the original. Daily NICOLE Note - Chemotherapy Admit Center for Hematologic Malignancies Attending: Kar Aggarwal MD [facility] Physician: Pepe Chavis MD Local Oncologist: Daniel [...] presents as a transfer from outside hospital ([facility]) where she pres ented with body [...] Pertinent Diagnostics: -BM Bx 06/21/17 ([facility] [id number]): -Results: 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 [...] days. -Sorafenib 400 mg daily (sent to [facility], awaiting auth) -Chemo Day: 8 Patient is [...] Anticipate 4-6 week hospitalization. VESTA Sexton ANP [facility] [address] [facility] Mailcode: [address] [place] [address] Kar Aggarwal MD - 07/08/2017 4:09 PM PDTFormatting of this note may be different fro m the original. 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 Was in CR2 and then relapsed. June 21, 2017 ([facility] [id number]); Hypercellular marrow (90%) with relap sed acute myelogenous leukemia (60%); Blasts positive for CD117 and CD 33, negative for CD34 , CD71, CD61, CD3 and PAX-5. - remains FLT3 ITD by [employer] (full panel pending) I rounded today in [...] the assessment and plan. KAR AGGARWAL MD cook pie [facility] Center for Hematologic Malignancies [facility] [email or web address] [phone], Stephen, MD - 07/07/2017 2:01 PM PDTFormatting of this note may be d ifferent from the original. 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 Was in CR2 and then relapsed. June 21, 2017 ([facility] [id number]); Hypercellular marrow (90%) with relap sed acute myelogenous leukemia (60%); Blasts positive for CD117 and CD 33, negative for CD34 , CD71, CD61, CD3 and PAX-5. - remains FLT3 ITD by [employer] (full panel pending) I rounded today in [...] the assessment and plan. KAR AGGARWAL MD cook pie [facility] Center for Hematologic Malignancies [facility] [email or web address] [phone], Kaitlyn M, SAMPLE FINISHER - 07/07/2017 1:26 PM PDTFormatting of this note may be different from the original. Daily NICOLE Note - Chemotherapy Admit Center for Hematologic Malignancies Attending: Kar Aggarwal MD [facility] Physician: Pepe Chavis MD Local Oncologist: Daniel [...] presents as a transfer from outside hospital ([facility]) where she pres ented with body [...] Pertinent Diagnostics: -BM Bx 06/21/17 ([facility] [id number]): -Results: 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 [...] days. -Sorafenib 400 mg daily (sent to [facility], awaiting auth) -Chemo Day: 7 Patient is [...] Anticipate 4-6 week hospitalization. LEATHA TAPIA NP [facility] [address] [facility] Mailcode: [facility] [place] [address] Kar Aggarwal MD - 07/06/2017 3:09 PM PSTFormatting of this note may be different marlee lazar the original. 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 Was in CR2 and then relapsed. June 21, 2017 ([facility] [id number]); Hypercellular marrow (90%) with relap sed acute myelogenous leukemia (60%); Blasts positive for CD117 and CD 33, negative for CD34 , CD71, CD61, CD3 and PAX-5. - remains FLT3 ITD by [employer] (full panel pending) I rounded today in [...] the assessment and plan. KAR AGGARWAL MD cook pie [facility] for Hematologic Malignancies [facility] [email or web address] [phone] Tapia NP - 07/06/2017 9:24 AM PSTFormatting of this note may be different from the original. Daily NICOLE Note - Chemotherapy Admit Center for Hematologic Malignancies Attending: Kar Aggarwal MD [facility] Physician: Pepe Chavis MD Local Oncologist: Daniel [...] presents as a transfer from outside hospital ([facility]) where she pres ented with body [...] Pertinent Diagnostics: -BM Bx 06/21/17 ([facility] [id number]): -Results: 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 [...] chemo. -Monitor daily labs. -Consider switching to Mraie if continues to increase -Ordered daily INR [...] Anticipate 4-6 week hospitalization. LEATHA TAPIA NP [place] [id number] [facility] Mailcode: [facility] [place] [address] Pepe Chavis MD - 07/05/2017 6:28 PM PSTFormatting of this note may be different from e original. 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 Was in CR2 and then relapsed. Would like to pursue chemotherapy. June 21, 2017 ([facility] [id number]); Hypercellular marrow (90%) with relap sed acute [...] this evening - remains FLT3 ITD by [employer] (full panel pending) - zosyn for proctitis/pain [...] for Hematologic Malignancies Attending: Pepe Chavis MD [facility] Physician: Pepe Chavis MD Local Oncologist: Daniel [...] presents as a transfer from outside hospital ([facility]) where she pres ented with body [...] Pertinent Diagnostics: -BM Bx 06/21/17 ([facility] [id number]): -Results: 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 Anticipate 4-6 week hospitalization. ISIDRO Rod [address] [facility] Mailcode: [facility] [place] [address] Hahjtzgi, Reeshma S, FNP - 07/04/2017 1:06 PM PSTFormatting of this note may b e different from the original. Daily NICOLE Note - Chemotherapy Admit Center for Hematologic Malignancies Attending: Pepe Chavis MD [facility] Physician: Pepe Chavis MD Local Oncologist: Daniel [...] presents as a transfer from outside hospital ([facility]) where she pres ented with body [...] Pertinent Diagnostics: -BM Bx 06/21/17 ([facility] [id number]): -Results: 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 [...] and prognostic feature. [facility] #Pancytopenia: -See supportive care #Coagulopathy: with [...] hospitalization. ISIDRO Rod [facility] [address] [facility] Mailcode: [address] [place] [address] Pepe Chavis MD - 07/04/2017 11:43 AM PSTFormatting of this note may be diffe rent from the original. 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 Was in CR2 and then relapsed. Would like to pursue chemotherapy. June 21, 2017 ([facility] [id number]); Hypercellular marrow (90%) with relap sed acute [...] arlette + cytarabine + sorefenib (appealed to [facility]) - WBC now <1 with IV chemo [...] blood counts, transfusions and plan. Sarah Katz, EDUCATIONAL ADVISER - 07/03/2017 3:35 PM PSTFormatting of this note may be different from the original. Daily NICOLE Note - Chemotherapy Admit Center for Hematologic Malignancies Attending: Pepe Chavis MD [facility] Physician: Pepe Chavis MD Local Oncologist: Daniel [...] presents as a transfer from outside hospital ([facility]) where she pres ented with body [...] Pertinent Diagnostics: -BM Bx 06/21/17 ([facility] [id number]): -Results: 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 [...] and prognostic feature. Brother is a m [facility]. #Pancytopenia: -See supportive care #Coagulopathy: with prolonged [...] TBD. Anticipate 4-6 week hospitalization. ISIDRO Rod [facility] 14K [address] [facility] Mailcode: [facility] [place] [address] Niqyc, Elie A, MD - 07/03/2017 11:40 AM PSTFormatting of this note may be diffe rent from the original. 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 Was in CR2 and then relapsed. Would like to pursue chemotherapy. June 21, 2017 ([facility] [id number]); Hypercellular marrow (90%) with relap sed acute [...] arlette + cytarabine + sorefenib (appealed to mmCHANNEL) - WBC dropping rapidly with IV chemo [...] WBC, edema, fluids and plan. Clarke Aguirre, EDUCATIONAL ADVISER - 07/02/2017 2:08 PM PSTFormatting of this note may be different fro m the original. Daily NICOLE Note - Chemotherapy Admit [facility] Attending: Pepe Chavis MD [facility] Physician: Pepe Chavis MD Local Oncologist: Daniel [...] presents as a transfer from outside hospital ([facility]) where she pres ented with body [...] Pertinent Diagnostics: -BM Bx 06/21/17 ([facility] [id number]): -Results: 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 [...] and prognostic feature. [facility] #Leukocytosis, Anemia, Thrombocytopenia: -See supportive care [...] TBD. Anticipate 4-6 week hospitalization. ISIDRO LLANES [facility] 14K [address] [facility] Mailcode: [address] [place] [address] Pepe Chavis MD - 07/02/2017 10:50 AM PSTFormatting of this note may be different from jl cary. 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 Was in CR2 and then relapsed. Would like to pursue chemotherapy. June 21, 2017 ([facility] [id number]); Hypercellular marrow (90%) with relap sed acute [...] infx risk, abx, and plan. Clarke Aguirre, EDUCATIONAL ADVISER - 07/01/2017 11:16 AM PSTFormatting of this note may be different fro m the original. Daily NICOLE Note - Chemotherapy Admit [facility] Attending: Pepe Chavis MD [facility] Physician: Pepe Chavis MD Local Oncologist: Daniel Patterson MD PCP: Saurav Small NP Date of Admission: 06/28/17 Hematologic Malignancy: AML Reason for admission: Relapsed AML, transfer from [facility] ID: 51 yo woman with relapsed AML, [...] L>R. Also reports LBM about 5 days [employer] & has had hard stools. -Bowel regimen: [...] presents as a transfer from outside hospital ([facility]) where she pres ented with body [...] Pertinent Diagnostics: -BM Bx 06/21/17 ([facility] [id number]): -Results: 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 [...] and prognostic feature. [facility] #Leukocytosis, Anemia, Thrombocytopenia: -See supportive care [...] TBD. Anticipate 4-6 week hospitalization. ISIDRO LLANES [address] Mailcode: [facility] [place] [address] Pepe Chavis MD - 07/01/2017 8:56 AM PSTFormatting of this note may be different from th e original. 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 Was in CR2 and then relapsed. Would like to pursue chemotherapy. June 21, 2017 ([facility] [id number]); Hypercellular marrow (90%) with relap sed acute [...] side effects, risks/benefits and plan. Sarah Katz, [facility] - 06/30/2017 1:13 PM PSTFormatting of this note may be different from the original. Daily NICOLE Note - Chemotherapy Admit [facility]ancies Attending: Pepe Chavis MD [facility] Physician: Pepe Chavis MD Local Oncologist: Daniel [...] L>R. Also reports LBM about 5 days [employer] & has had hard stools. -Started miralax, [...] today as a transfer from outside hospital ([facility]) where sh olivia presented with body [...] Pertinent Diagnostics: -BM Bx 06/21/17 ([facility] [id number]) -Results: 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 [...] L>R. Also reports LBM about 5 days [employer]URAL [employer] & has had hard stools. -Started miralax, [...] TBD. Anticipate 4-6 week hospitalization. ISIDRO Arvizu [address] [facility] Mailcode: [facility] [place] [address] Pepe Chavis MD - 06/30/2017 9:26 AM PSTFormatting of this note may be different from jl baker original. 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 Was in CR2 and then relapsed. Would like to pursue chemotherapy. June 21, 2017 ([facility] [id number]); Hypercellular marrow (90%) with relap sed acute [...] paged twice. Awaiting response. Hand off to Stack Exchangecraw[facility] hospitaler. Armani العراقي to monitor closely.Nathaniel Steele [...] | | | | | | type ([facility]) | | | | | | Immunocompromised | | | | | | state ([facility]) | | | | | | Pneumonia with the | | | | | | fungal infection | | | | | | aspergillosis ([facility]) | | | | | | Abnormal [...] + + | Blood - Antecubital | [facility], CORE [address] | | - right | [place], [place] [address] | + + + CULTURE, BLOOD BACTI [...] ------ CULTURE, BLOOD | | BACTI & Y...[[id number]] Final | | result Please view results [...] | + + + | Blood | [facility], CORE [address] | | | [place] [address] | + + + CULTURE, BLOOD BACTI [...] ------ CULTURE, BLOOD | | BACTI & Y...[[id number]] Final | | result Please view results [...] | + + + | Blood | [facility], CORE [address] | | | [place] [address] | + + + + + | [...] | + + + | Blood | [facility], CORE [address] | | | [place] [address] | + + + + + | [...] | + + + | Blood | [facility], CORE [address] [place] [address] | | | [place], [place] [address] | + + + URIC ACID, PLASMA (08/07/2017 11:57 PM) + +---------+ + | Component | Value | Ref Range | + +---------+ + | URIC ACID, PLASMA | 1.0 (L) | 2.5 - 6.2 mg/dL | | (LAB) | | | + +---------+ + + + + | Specimen | Performing Laboratory | + + + | Blood | [facility], CORE [address] [place] [address] | | | [place] [address] | + + + PHOSPHORUS, PLASMA (08/07/2017 11:57 PM) + +-------+ + | Component | Value | Ref Range | + +-------+ + | PHOSPHORUS, PLASMA | 2.7 | 2.4 - 4.7 mg/dL | | (LAB) | | | + +-------+ + + + + | Specimen | Performing Laboratory | + + + | Blood | [facility], CORE [address] [facility] | | | [place] [address] | + + + MAGNESIUM, PLASMA (08/07/2017 11:57 PM) + +-------+ + | Component | Value | Ref Range | + +-------+ + | MAGNESIUM,PLASMA | 1.8 | 1.6 - 2.6 mg/dL | + +-------+ + + + + | Specimen | Performing Laboratory | + + + | Blood | [facility], CORE [address] | | | [place] [address] | + + + + + | [...] | ------ CBC AND AUTO | | DIFF[[id number]] Abnormal Final | | result Please view [...] | >60 | >60 mL/min | | TURKMEN | | | + + + + | EGFR NON | >60 | >60 mL/min | | -TURKMEN | | | + + + + [...] | + + + | Blood | [facility], CORE [address] | | | [place] [address] | + + + + + | [...] | + + + | Blood | [facility], TRANSFUSION MEDICINE [address] | | | [place] [address] | + + + ABO & RH [...] | + + + | Blood | [facility], TRANSFUSION MEDICINE [address] | | | [place] [address] | + + + TYPE AND SCREEN [...] | ------ ABO & RH | | TYPE[[id number]] F | | inal result ANTIBODY | | SCREEN[[id number]] Fin | | al result Please view [...] + + | PRODUCT UNIT # | [id number] | | + + + + | UNIT ABO | O | | + + + + | UNIT RH | POS | | + + + + | STATUS OF UNIT | Presumed Transfused | | + + + + | EXPIRATION DATE | [id number] | | + + + + | BLOOD TYPE BARCODE | 5100 | | + + + + | BLOOD PRODUCT CODE | [id number] | | + + + + + + + | Specimen | Performing Laboratory | + + + | | [facility], TRANSFUSION MEDICINE [address] | | | [place] [address] | + + + CBC AND AUTO [...] | + + + | Blood | [facility], CORE [address] [place] [address] | | | [place] [address] | + + + PHOSPHORUS, PLASMA (08/06/2017 11:30 PM) + +---------+ + | Component | Value | Ref Range | + +---------+ + | PHOSPHORUS, PLASMA | 2.1 (L) | 2.4 - 4.7 mg/dL | | (LAB) | | | + +---------+ + + + + | Specimen | Performing Laboratory | + + + | Blood | [facility], CORE [address] [place] [address] | | | [place] [address] | + + + MAGNESIUM, PLASMA (08/06/2017 11:30 PM) + +-------+ + | Component | Value | Ref Range | + +-------+ + | MAGNESIUM,PLASMA | 1.8 | 1.6 - 2.6 mg/dL | + +-------+ + + + + | Specimen | Performing Laboratory | + + + | Blood | [facility], CORE [address] [facility] | | | [place] [address] | + + + + + | [...] | ------ CBC AND AUTO | | DIFF[[id number]] Abnormal Final | | result Please view [...] | >60 | >60 mL/min | | TURKMEN | | | + + + + | EGFR NON | >60 | >60 mL/min | | -TURKMEN | | | + + + + [...] | + + + | Blood | [facility], CORE [address] | | | [place] [address] | + + + + + | [...] | + + + | Blood | [facility], CORE [address] [place] [address] | | | [place] [address] | + + + PHOSPHORUS, PLASMA (08/05/2017 11:59 PM) + +---------+ + | Component | Value | Ref Range | + +---------+ + | PHOSPHORUS, PLASMA | 2.2 (L) | 2.4 - 4.7 mg/dL | | (LAB) | | | + +---------+ + + + + | Specimen | Performing Laboratory | + + + | Blood | [facility], CORE [address] | | | [place] [address] | + + + MAGNESIUM, PLASMA (08/05/2017 11:59 PM) + +-------+ + | Component | Value | Ref Range | + +-------+ + | MAGNESIUM,PLASMA | 1.9 | 1.6 - 2.6 mg/dL | + +-------+ + + + + | Specimen | Performing Laboratory | + + + | Blood | [facility], CORE [address] | | | [place] [address] | + + + + + | [...] | ------ CBC AND AUTO | | DIFF[[id number]] Abnormal Final | | result Please view [...] | >60 | >60 mL/min | | TURKMEN | | | + + + + | EGFR NON | >60 | >60 mL/min | | -TURKMEN | | | + + + + [...] | + + + | Blood | [facility], CORE [address] | | | [place] [address] | + + + + + | [...] | + + + | Blood | [facility], CORE [address] [place] [address] | | | [place] [address] | + + + + + | [...] + + | PRODUCT UNIT # | [id number] | | + + + + | UNIT ABO | O | | + + + + | UNIT RH | NEG | | + + + + | STATUS OF UNIT | Presumed Transfused | | + + + + | EXPIRATION DATE | [id number] | | + + + + | BLOOD TYPE BARCODE | | | + + + + | BLOOD PRODUCT CODE | [id number] | | + + + + + + + | Specimen | Performing Laboratory | + + + | | [facility], TRANSFUSION MEDICINE [address] | | | [place] [address] | + + + CBC AND AUTO [...] | + + + | Blood | [facility], CORE [address] | | | [facility] [place] [address] | + + + COAGULOPATHY PANEL (INR,APTT,FIBRINOGEN) [...] | + + + | Blood | [facility], CORE [address] | | | [place] [address] | + + + + + | [...] + + | Swab - Rectum | [facility], CORE [address] [place] [address] RD | | | [place] [address] | + + + LDH TOTAL, PLASMA (08/04/2017 11:30 PM) + +---------+ + | Component | Value | Ref Range | + +---------+ + | LD TOTAL, PLASMA | 119 | <=250 U/L | + +---------+ + | LD CMNT | No Hemo | | + +---------+ + + + + | Specimen | Performing Laboratory | + + + | Blood | [facility], CORE [address] | | | [place] [address] | + + + URIC ACID, PLASMA (08/04/2017 11:30 PM) + +---------+ + | Component | Value | Ref Range | + +---------+ + | URIC ACID, PLASMA | 0.8 (L) | 2.5 - 6.2 mg/dL | | (LAB) | | | + +---------+ + + + + | Specimen | Performing Laboratory | + + + | Blood | [facility], CORE [address] | | | [place] [address] | + + + PHOSPHORUS, PLASMA (08/04/2017 11:30 PM) + +-------+ + | Component | Value | Ref Range | + +-------+ + | PHOSPHORUS, PLASMA | 2.5 | 2.4 - 4.7 mg/dL | | (LAB) | | | + +-------+ + + + + | Specimen | Performing Laboratory | + + + | Blood | [facility], CORE [address] | | | [place] [address] | + + + MAGNESIUM, PLASMA (08/04/2017 11:30 PM) + +-------+ + | Component | Value | Ref Range | + +-------+ + | MAGNESIUM,PLASMA | 2.0 | 1.6 - 2.6 mg/dL | + +-------+ + + + + | Specimen | Performing Laboratory | + + + | Blood | [facility], CORE [address] [place] [address] | | | [place] [address] | + + + + + | [...] | ------ CBC AND AUTO | | DIFF[[id number]] Abnormal Final | | result Please view [...] | >60 | >60 mL/min | | TURKMEN | | | + + + + | EGFR NON | >60 | >60 mL/min | | -TURKMEN | | | + + + + [...] | + + + | Blood | [facility], CORE [address] | | | [place] [address] | + + + + + | [...] | + + + | Blood | [facility], CORE [address] | | | [place] [address] | + + + + + | [...] + + | PRODUCT UNIT # | [id number] | | + + + + | UNIT ABO | O | | + + + + | UNIT RH | POS | | + + + + | STATUS OF UNIT | Presumed Transfused | | + + + + | EXPIRATION DATE | [id number] | | + + + + | BLOOD TYPE BARCODE | 5100 | | + + + + | BLOOD PRODUCT CODE | [id number] | | + + + + + + + | Specimen | Performing Laboratory | + + + | | [facility], TRANSFUSION MEDICINE [address] | | | [place] [address] | + + + PRODUCT - RED CELLS LEUKOREDUCED (08/04/2017 12:13 AM) + + + + | Component | Value | Ref Range | + + + + | PRODUCT DESCRIPTION | -1 RED BLOOD CELLS ADENINE-SALINE ADDED | | | | LEUKOCYT | | + + + + | PRODUCT UNIT # | [id number] | | + + + + | UNIT ABO | O | | + + + + | UNIT RH | POS | | + + + + | STATUS OF UNIT | Presumed Transfused | | + + + + | EXPIRATION DATE | [id number] | | + + + + | BLOOD TYPE BARCODE | 5100 | | + + + + | BLOOD PRODUCT CODE | [id number] | | + + + + + + + | Specimen | Performing Laboratory | + + + | | [facility], TRANSFUSION MEDICINE [address] | | | [place] [address] | + + + CBC AND AUTO [...] | + + + | Blood | [facility], CORE [address] | | | [place] [address] | + + + PHOSPHORUS, PLASMA (08/03/2017 11:46 PM) + +-------+ + | Component | Value | Ref Range | + +-------+ + | PHOSPHORUS, PLASMA | 2.8 | 2.4 - 4.7 mg/dL | | (LAB) | | | + +-------+ + + + + | Specimen | Performing Laboratory | + + + | Blood | [facility], CORE [address] | | | [place] [address] | + + + MAGNESIUM, PLASMA (08/03/2017 11:46 PM) + +-------+ + | Component | Value | Ref Range | + +-------+ + | MAGNESIUM,PLASMA | 2.3 | 1.6 - 2.6 mg/dL | + +-------+ + + + + | Specimen | Performing Laboratory | + + + | Blood | [facility], CORE [address] | | | [place] [address] | + + + + + | [...] | ------ CBC AND AUTO | | DIFF[[id number]] Abnormal Final | | result Please view [...] | >60 | >60 mL/min | | TURKMEN | | | + + + + | EGFR NON | >60 | >60 mL/min | | -TURKMEN | | | + + + + [...] | + + + | Blood | [facility], CORE [address] | | | [place] [address] | + + + + + | [...] | + + + | Blood | [facility], CORE [address] [facility] [address] | | | [place] [address] | + + + MAGNESIUM, PLASMA (08/03/2017 1:55 AM) + +-------+ + | Component | Value | Ref Range | + +-------+ + | MAGNESIUM,PLASMA | 1.6 | 1.6 - 2.6 mg/dL | + +-------+ + + + + | Specimen | Performing Laboratory | + + + | Blood | [facility], CORE [address] [place] [address] [place] | | | [place] [address] | + + + + + | [...] | >60 | >60 mL/min | | TURKMEN | | | + + + + | EGFR NON | >60 | >60 mL/min | | -TURKMEN | | | + + + + [...] | + + + | Blood | [facility], CORE [address] [place] [address] | | | [place] [address] | + + + + + | [...] | + + + | Blood | [facility], CORE [address] | | | [place] [address] | + + + CBC, WITH DIFFERENTIAL [...] | ------ CBC AND AUTO | | DIFF[[id number]] Abnormal Final | | result Please view [...] | + + + | Blood | [facility], CORE [address] | | | [place] [address] | + + + + + | [...] | + + + | Blood | [facility], TRANSFUSION MEDICINE [address] [facility] | | | [place] [address] | + + + ABO & RH [...] | + + + | Blood | [facility], TRANSFUSION MEDICINE [address] [facility] | | | [place] [address] | + + + TYPE AND SCREEN [...] | ------ ABO & RH | | TYPE[[id number]] F | | inal result ANTIBODY | | SCREEN[[id number]] Fin | | al result Please view [...] + + | PRODUCT UNIT # | [id number] | | + + + + | UNIT ABO | O | | + + + + | UNIT RH | POS | | + + + + | STATUS OF UNIT | Presumed Transfused | | + + + + | EXPIRATION DATE | [id number] | | + + + + | BLOOD TYPE BARCODE | 5100 | | + + + + | BLOOD PRODUCT CODE | [id number] | | + + + + + + + | Specimen | Performing Laboratory | + + + | | [facility], TRANSFUSION MEDICINE [address] [facility] | | | [place] [address] | + + + PRODUCT - RED CELLS LEUKOREDUCED (08/02/2017 1:50 AM) + + + + | Component | Value | Ref Range | + + + + | PRODUCT DESCRIPTION | -1 RED BLOOD CELLS ADENINE-SALINE ADDED | | | | LEUKOCYT | | + + + + | PRODUCT UNIT # | [id number] | | + + + + | UNIT ABO | O | | + + + + | UNIT RH | POS | | + + + + | STATUS OF UNIT | Presumed Transfused | | + + + + | EXPIRATION DATE | [id number] | | + + + + | BLOOD TYPE BARCODE | 5100 | | + + + + | BLOOD PRODUCT CODE | [id number] | | + + + + + + + | Specimen | Performing Laboratory | + + + | | [facility], TRANSFUSION MEDICINE [address] | | | [place] [address] | + + + PHOSPHORUS, PLASMA (08/01/2017 11:55 PM) + +---------+ + | Component | Value | Ref Range | + +---------+ + | PHOSPHORUS, PLASMA | 2.3 (L) | 2.4 - 4.7 mg/dL | | (LAB) | | | + +---------+ + + + + | Specimen | Performing Laboratory | + + + | Blood | [facility], CORE [address] [place] [address] | | | [place] [address] | + + + MAGNESIUM, PLASMA (08/01/2017 11:55 PM) + +-------+ + | Component | Value | Ref Range | + +-------+ + | MAGNESIUM,PLASMA | 1.7 | 1.6 - 2.6 mg/dL | + +-------+ + + + + | Specimen | Performing Laboratory | + + + | Blood | [facility], CORE [address] [place] [address] | | | [place] [address] | + + + + + | [...] | >60 | >60 mL/min | | TURKMEN | | | + + + + | EGFR NON | >60 | >60 mL/min | | -TURKMEN | | | + + + + [...] | + + + | Blood | [facility], CORE [address] | | | [place] [address] | + + + + + | [...] | + + + | Blood | [facility], CORE [address] | | | [place] [address] | + + + CBC, WITH DIFFERENTIAL [...] | ------ CBC AND AUTO | | DIFF[[id number]] Abnormal Final | | result Please view [...] w/medications for | | anxiolysis Equipment Description: [employer] Test Technician Serial ID: [id number] | | Indications: 51 y.o. female with [...] needle was inserted with | | the [employer] ready mix truck driver. The first aspirate was noted [...] | inch needle was advanced using the [employer] ready mix truck driver. A core biopsy measuring | [...] 24 to 48 hours. ELLIS MEJIA PA-C,NAOMY [facility] 13K [address] | | [facility] Mailcode: [id number] [place] [address] | + + LESS COMMON INDIVIDUAL FISH PROBES, BONE MARROW/CORE (08/01/2017 3:04 PM) + + + + | Component | Value | Ref Range | + + + + | PREVIOUS | Rodriguez 5q EGR1 (5q31) (SO) / D5S23, [id number] | | | ABNORMALITIES PROBE | (5p15.2) () | | | NAME ONE | | | + + + + | CELLS SCORED PROBE | 200 | | | ONE | | | + + + + + + + | Specimen | Performing Laboratory | + + + | Bone marrow | [facility] [address] | | | [address] [place] [address] | + + + AML FISH PANEL, BONE MARROW/CORE (08/01/2017 3:04 PM) + +--------+ + | Component | Value | Ref Range | + +--------+ + | AML FISH PANEL | Normal | | + +--------+ + | CS METASYSTEMS | 200 | | | T4I278 (7Q31) (SO) / | | | | [...] SCORED RODRIGUEZ | 200 | | | QFNQ0X1 (8Q21.3) | | | | (SO) / [...] CS METASYSTEMS | 200 | | | DEK(6P22)(SG)/KFM079 | | | | (9Q34)(SO)T(6;9)DC,D | | | + +--------+ + + + + | Specimen | Performing Laboratory | + + + | Bone marrow | [address] | | [address] [place] [address] | + + + FLT3 ITD, BONE [...] clinical trial | | | | (CALGB [id number]) has led to the FDA approval | | | | in July 2016 of the multitargeted kinase | | | | inhibitor midostaurin for the treatment of | | | | adult patients with newly diagnosed AML | | | | harboring either the FLT3-ITD or FLT3-TKD | | | | mutations (Shade Prado, Blood, 2017, | | | | [phone]). The quantitative reporting | | | | [...] | | | characteristics determined by the [facility] | | | | [place] [...] 1990 | | | | (CLIA). The [facility] | | | | Laboratories are fully licensed by the | | | | [facility] under CLIA and are | | | | accredited by the [employer] | | | | [employer] ([employer]). Laboratory | | | | Director: Edy Vang M.D., | | | | Ph.D | | + + + + + + + | Specimen | Performing Laboratory | + + + | Bone marrow | [facility] [address] | [address] [place] [address] | + + + COMPREHENSIVE HEME PANEL [...] | | | | Sequencing Specimen ID: [id number] | | | | Type: Bone Marrow [...] | | | | (Tier I) Gene: [id number]: | | | | p.[id number]frim allele | | | | frequency (VAF): 22%Variant allele ratio: | | | | 0.58 Variant ID: [id number] ([id number]): | | | | c.[id number]_[id number]GAGTACTT | | | | CTACGTTGATTTC; | | | | [id number]>TGAAATCAACGTAGAAGTACTCATTAT | | | | CTGAGGAGCCGGTCACLast Observed: 04/04/2017; | | | | Allele frequency: 0%03/03/2017; Allele | | | | frequency: 75%03/14/2016; Allele frequency: | | | | 0%02/15/2016; Allele frequency: 0% Gene: | | | | [id number]: p.P679YCifmbso allele | | | | frequency (VAF): 16%Variant ID: | | | | [id number]; [id number], [id number] | | | | (MFLE28514.1):c.2644C>T; | | | | chr2:[id number]>ALast Observed: 04/04/2017; | | | | Allele frequency: 19%03/03/2017; Allele | | | | frequency: 46%03/14/2016; Allele frequency: | | | | 14%02/15/2016; Allele frequency: 45% Gene: | | | | IWJ6Csejsdx: p.W288fs*12Variant allele | | | | frequency (VAF): 14%Variant ID: | | | | [id number]; [id number] | | | | (KITM6445.1):c.859_860insTCTG; | | | | chr5:[id number]>CTCTGLast Observed: | | | | 04/04/2017; Allele frequency: 0%03/03/2017; | | | | Allele frequency: 44%03/14/2016; Allele | | | | frequency: 0%02/15/2016; Allele frequency: | | | | 46% Variant(s) of Potential Clinical | | | | Significance (Tier II) Gene: OK5Aqbcbtz: | | | | p.V362fs*69Variant allele frequency (VAF): | | | | 12%Variant ID: [id number] | | | | (APHU23291.1):c.1083_1088TGTACG>GA; | | | | chr11:[id number]>CTCLast Observed: | | | | 04/04/2017; Allele [...] 2009; Gilda, | | | | Blood 115:98647, 2009). No targeted therapy | | | [...] | | | | | | | genes:CYK8NUJJIXDOBOQYIGG9YBXI5AXDZP3BDT6DN | | | | ES2XPR30QWPTIH5TJCJ0YED7QOT8FASOVXBNDZHHU62 | | | | IYNKU4NFTKB8GFTIZUOX5OPUB1CSPF69 | | | | Chromatin-modifying | | | | genes:KCGP1WPOYNFJR345CIA5DNM1PYDKGJCG38 | | | | DNA methylation-associated | | | | genes:RKAM7RLKY6QHP7HIK6 Filler Blender | | | | factors:PLPVJMD3NAARMNYSLKIBUUL5BJMK7YAFO2K | | | | VAY6LF1GDYG1KKL6IMNX8XWCEVRI4DCOL6VWQE9OPV3 | | | | Spliceosome-complex | | | | genes:MJML7EE1R8E8VT2MQMA2 Cohesion-complex | | | | genes:UAU9HZBD0ZFCI1SKD64 Tumor suppressor | | | | genes:DB64JZ0DIF1 and | | | | others:LTI2ABLZ2EAPO77FF59BNZD3OVPZJ9JPZBPA | | | | TMT6HQJCYQ6BPHVSK48BKLLQ2 All the coding | | | | [...] multiplexed PCR (customized | | | | [employer] targeted DNA panel with molecular | | | | barcodes) and sequencing on an Illumina | | | | platform ([id number]). Sequencing data is | | | | [...] classification: Blood. 2016; | | | | 127(20):2373-217. 7.Catalogue Of Somatic | | | | Mutations In Cancer: | | | | http://cancer.julia.ac.uk/cosmic8.ClinVar: | | | | | | | | https://www.ncbi.nlm.nih.gov/clinvar/9.SHIRLEY- | | | | Clinical Knowledgebase (CKB): | | | | https://ckb.My Mega Bookstore.org/10.CIViC: | | | | https://civicdb.org/home | | + + + + | DISCLAIMER | This test was developed and its performance | | | | characteristics determined by the [facility] | | | | [facility]. It has | | | [...] 1988 | | | | (CLIA). The [facility] | | | | Laboratories are fully licensed by the | | | | [facility] under CLIA and are | | | | accredited by the [employer] | | | | Pathologists (CAP). Laboratory | | | | Director: Edy Vang M.D., | | | | Ph.D | | + + + + + + + | Specimen | Performing Laboratory | + + + | Bone marrow | [facility] [address] | | | [address] [place] [address] | + + + GENETRAILS COMPREHENSIVE HEME [...] | | ------ COMPREHENSIVE | | HEME PANEL...[[id number]] Final | | result FLT3 ITD, BONE | | MARROW[[id number]] Final | | result Please view results [...] | | was made by the clinical executive chairman of the board. | | | | | | | [...] | | | characteristics determined by the [facility] | | | | [facility]. It has | | | [...] 1988 | | | | (CLIA). The [facility] | | | | Laboratories are fully licensed by the | | | | [facility] under CLIA and are | | | | accredited by the [employer] | | | | Pathologists (CAP). Laboratory | | | | Director: Edy Vang M.D., | | | | Ph.D Electronically reviewed and signed | | | | by:Kar Mckeon, PhD, [facility] | | | | Loan Inspector Clinical Molecular | | | | Geneticist08/12/2017 at 8:15 AM Reviewed | | | | and electronically signed by OLIVIA | | | | MD RENAY,[facility]08/12/2017 2:19 PM | | + + + + + + + | Specimen | Performing Laboratory | + + + | Bone marrow | [facility] [address] | | | [address] [place] [address] | + + + LEUKEMIA/LYMPHOMA MARKERS - [...] characteristics | | | | determined by shopp. It has | | | | not [...] + + + | Bone marrow | [facility] DEPARTMENT OF PATHOLOG[facility] [address] | | | [place] [address] | + + + CBC AND AUTO [...] | + + + | Blood | [facility], CORE [address] | | | [place], [place] [address] | + + + CBC, WITH DIFFERENTIAL [...] | ------ CBC AND AUTO | | DIFF[[id number]] Abnormal Final | | result Please view [...] | + + + | Blood | [facility], CORE [address] | | | [place] [address] | + + + + + | [...] | + + + | Blood | [facility], CORE [address] | | | [place] [address] | + + + URIC ACID, PLASMA (08/01/2017 12:15 AM) + +---------+ + | Component | Value | Ref Range | + +---------+ + | URIC ACID, PLASMA | 1.2 (L) | 2.5 - 6.2 mg/dL | | (LAB) | | | + +---------+ + + + + | Specimen | Performing Laboratory | + + + | Blood | [facility], CORE [address] [place] [address] | | | [place] [address] | + + + PHOSPHORUS, PLASMA (08/01/2017 12:15 AM) + +-------+ + | Component | Value | Ref Range | + +-------+ + | PHOSPHORUS, PLASMA | 2.9 | 2.4 - 4.7 mg/dL | | (LAB) | | | + +-------+ + + + + | Specimen | Performing Laboratory | + + + | Blood | [facility], CORE [address] | | | [place] [address] | + + + MAGNESIUM, PLASMA (08/01/2017 12:15 AM) + +-------+ + | Component | Value | Ref Range | + +-------+ + | MAGNESIUM,PLASMA | 1.7 | 1.6 - 2.6 mg/dL | + +-------+ + + + + | Specimen | Performing Laboratory | + + + | Blood | [facility], CORE [address] | | | [place] [address] | + + + + + | [...] | >60 | >60 mL/min | | TURKMEN | | | + + + + | EGFR NON | >60 | >60 mL/min | | -TURKMEN | | | + + + + [...] | + + + | Blood | [facility], CORE [address] | | | [place] [address] | + + + + + | [...] as fungal & bacterial PCR - see SpectraLinear for pending labs. | | Cytology done [...] Laboratory | + + + | | [facility] VOICE RECOGNITION | + + + + + | Narrative | + + | EXAM: CA CHEST 1 VIEW 07/31/17 07:58:13 HISTORY: Post [...] Interface - 07/31/2017 9:02 AM PDT EXAM: CA CHEST 1 | | VIEW 07/31/17 07:58:13 [...] | + + + | Blood | [facility], CORE [address] [place] [address] | | | [place] [address] | + + + CBC, WITH DIFFERENTIAL [...] | ------ CBC AND AUTO | | DIFF[[id number]] Abnormal Final | | result Please view [...] non-specific staining. | | | | Antibodies [id number] CD14 CD16 CD33 CD34 | | | [...] characteristics | | | | determined by [facility]. It has | | | | not [...] | + + + | Bronchoalveolar | [facility] DEPARTMENT OF PATHOLOGY [address] [place] [address] RD | | lavage fluid - | [place] [address] | | Broncheoalveolar | | | Lavage [...] performed by : | | | | [facility] | | | | [address] [facility] | | | | [place] [address] | | + + + + + [...] | + + + | Bronchoalveolar | [facility], [facility] [address] | | lavage fluid - | [place] [address] | | Broncheoalveolar | | | Lavage [...] characteristics determined by | | | | [employer]. See Compliance | | | | Statement B: [employer]/CSPerformed by | | | | gopogo,[address] [place] [address] | | | | [phone] ffj.NuGEN TechnologiesKelton | | | | MD Darren, Lab. Director | | + + + + | SOURCE, INF SER/PCR | BAL | | + + + + + + + | Specimen | Performing Laboratory | + + + | Bronchoalveolar | [facility] - INT [address] [facility] | | lavage fluid - Lung | [place] [address] | + + + NON RUSSIAN LANGUAGE PROFESSOR CYTOLOGY (07/31/2017 7:47 AM) + + + [...] + + | Fluid - Lung | [facility] DE[facility] PATHOLOG[facility] [address] | | | [place] [address] | + + + CULTURE, FUNGAL EXCEPT BLOOD, SKIN, HAIR, NAIL (07/31/2017 7:46 AM) + + + | Specimen | Performing Laboratory | + + + | Bronchoalveolar | [facility] [place] [address] [address] [place], [place] | | lavage fluid - Lung | [address] | + + + + + | Narrative | + + | Culture Report: No fungus isolated at 3 weeks. | + + NOCARDIA CULTURE, RULE OUT (07/31/2017 7:46 AM) + + + | Specimen | Performing Laboratory | + + + | Bronchoalveolar | [place] [place] [facility] [place] [address] [place], [place] | | lavage fluid - Lung | [address] | + + + + + | Narrative | + + | Culture Report: Nocardia not isolated | + + CULTURE, BRONCHIAL LAVAGE (07/31/2017 7:46 AM) + + + | Specimen | Performing Laboratory | + + + | Bronchoalveolar | [facility] [address] [place], [place] | | lavage fluid - Lung | [address] | + + + + + | [...] | | | | radiographic imaging).Performed by [facility] | | | | [facility],[address] [place] [address],[place] [address] | | | | [phone].[employer], Kelton Banks, | | | | Olive ANTUNEZ. Director | | + + + + + + + | Specimen | Performing Laboratory | + + + | Bronchoalveolar | [facility] - INT [address] [facility] | | lavage fluid - Lung | [place] [address] | + + + + + | Narrative | + + | Test performed by [facility] Syed [facility] [address] | | [phone] www.[employer] | | | | | + + FLEXIBLE BRONCHOSCOPY (07/31/2017 7:32 AM) + + + | Specimen | Performing Laboratory | + + + | | [facility] | + + + + + | Narrative | + + | Procedure Date: 07/31/2017 Patient Name: Rhea Hutchison Order #: [id number] | | Date of : 1965 CSN: [id number] Admit Type: Inpatient Room: OR | | Procedure: Bronchoscopy | | Indications: Diagnostic bronchoalveolar lavage, Bilateral | | infiltrate, Immune compromised with | | pneumonia, Abnormal CT scan of chest | | Providers: BENNY FOWLER MD, ANTONINO YBARRA MD (Fellow), | | KAR AGGARWAL MD, SHERRY JOHN [facility] | | Referring MD: ANTONINO YBARRA [...] and soft palate visualized). | | - [place] Protocol: | | - Pre-procedure Verification: Prior [...] by | | the physician and the irrigation service technician in the | | procedure room [...] continuously. The Olymp[employer] | | BF-Q190 S/N [id number] bronchoscope was | | introduced through the [...] + + | PRODUCT UNIT # | [id number] | | + + + + | UNIT ABO | O | | + + + + | UNIT RH | POS | | + + + + | STATUS OF UNIT | Presumed Transfused | | + + + + | EXPIRATION DATE | [id number] | | + + + + | BLOOD TYPE BARCODE | 5100 | | + + + + | BLOOD PRODUCT CODE | [id number] | | + + + + + + + | Specimen | Performing Laboratory | + + + | | [facility], TRANSFUSION MEDICINE [address] | | | [address] [place] [address] | + + + PRODUCT - RED CELLS LEUKOREDUCED (07/31/2017 12:47 AM) + + + + | Component | Value | Ref Range | + + + + | PRODUCT DESCRIPTION | -1 RED BLOOD CELLS ADENINE-SALINE ADDED | | | | LEUKOCYT | | + + + + | PRODUCT UNIT # | [id number] | | + + + + | UNIT ABO | O | | + + + + | UNIT RH | POS | | + + + + | STATUS OF UNIT | Presumed Transfused | | + + + + | EXPIRATION DATE | [id number] | | + + + + | BLOOD TYPE BARCODE | 5100 | | + + + + | BLOOD PRODUCT CODE | [id number] | | + + + + + + + | Specimen | Performing Laboratory | + + + | | [facility], [facility] [address] | | | [place] [address] | + + + CBC AND AUTO [...] | + + + | Blood | [facility], CORE [address] | | | [place] [address] | + + + PHOSPHORUS, PLASMA (07/31/2017 12:14 AM) + +-------+ + | Component | Value | Ref Range | + +-------+ + | PHOSPHORUS, PLASMA | 2.9 | 2.4 - 4.7 mg/dL | | (LAB) | | | + +-------+ + + + + | Specimen | Performing Laboratory | + + + | Blood | [facility], CORE [address] | | | [facility] [place] [place] [address] | + + + MAGNESIUM, PLASMA (07/31/2017 12:14 AM) + +-------+ + | Component | Value | Ref Range | + +-------+ + | MAGNESIUM,PLASMA | 1.7 | 1.6 - 2.6 mg/dL | + +-------+ + + + + | Specimen | Performing Laboratory | + + + | Blood | [facility], CORE [address] | | | [place] [address] | + + + + + | [...] | ------ CBC AND AUTO | | DIFF[[id number]] Abnormal Final | | result Please view [...] | >60 | >60 mL/min | | TURKMEN | | | + + + + | EGFR NON | >60 | >60 mL/min | | -TURKMEN | | | + + + + [...] | + + + | Blood | [facility], CORE [address] [place] [address] | | | [facility] [place] [address] | + + + + + | [...] + + | Sputum - Lung | [facility] [address] [address] [place], [place] | | | [address] | + + + + + | Narrative | + + | Culture Report: No mould isolated at 3 weeks | + + CULTURE, SPUTUM CYSTIC FIBROSIS (07/31/2017 12:13 AM) + + + | Specimen | Performing Laboratory | + + + | Sputum - Lung | [facility] [place] [address] [place], [place] | | | [address] | + + + + + | [...] + | Blood - PICC red | [facility], CORE [address] | | port | [place] [address] | + + + ASPERGILLUS GALACTOMANNAN ANTIGEN, [...] | + + + | Blood | [facility], SPECIAL IMM + [facility] [address] | | | [place] [address] | + + + + + | [...] ------ CULTURE, BLOOD | | BACTI & Y...[[id number]] Final | | result Please view results [...] + + | Swab - Nasal | [facility], CORE [address] [place] [address] | | | [place] [address] | + + + POSACONAZOLE, QUANT (07/30/2017 [...] | | | | characteristics determined by [employer] | | | | [employer]. See Compliance Statement B: | | | | [employer]/CSPerformed by [employer] | | | | [employer],[address] [place] [address] | | | | [phone].[employer], Keltno Banks | | | | MD Lab. Director | | | |www.[employer], Kelton Banks MD, Lab. Director | | + + + + + + + | Specimen | Performing Laboratory | + + + | Blood | [facility] PTH - INT [address] [facility] | | | [place] [address] | + + + CBC AND AUTO [...] | + + + | Blood | [facility], CORE [address] | | | [place] [address] | + + + CBC, WITH DIFFERENTIAL [...] | ------ CBC AND AUTO | | DIFF[[id number]] Abnormal Final | | result Please view [...] | + + + | Blood | [facility], CORE [address] | | | [place] [address] | + + + MAGNESIUM, PLASMA (07/30/2017 12:25 AM) + +-------+ + | Component | Value | Ref Range | + +-------+ + | MAGNESIUM,PLASMA | 1.8 | 1.6 - 2.6 mg/dL | + +-------+ + + + + | Specimen | Performing Laboratory | + + + | Blood | [facility], CORE [address] | | | [place] [address] | + + + + + | [...] | >60 | >60 mL/min | | TURKMEN | | | + + + + | EGFR NON | >60 | >60 mL/min | | -TURKMEN | | | + + + + [...] | + + + | Blood | [facility], CORE [address] | | | [place] [address] | + + + + + | [...] + + | Swab - Rectum | [facility], CORE [address] [facility] | | | [place] [address] | + + + PRODUCT - PLATELET PHERESIS LEUKOREDUCED (07/29/2017 1:58 AM) + + + + | Component | Value | Ref Range | + + + + | PRODUCT DESCRIPTION | PLATELETS PHERESIS, LEUKOCYTE REDUCED, | | | | IRRADIATED | | + + + + | PRODUCT UNIT # | [id number] | | + + + + | UNIT ABO | O | | + + + + | UNIT RH | POS | | + + + + | STATUS OF UNIT | Presumed Transfused | | + + + + | EXPIRATION DATE | [id number] | | + + + + | BLOOD TYPE BARCODE | 5100 | | + + + + | BLOOD PRODUCT CODE | [id number] | | + + + + + + + | Specimen | Performing Laboratory | + + + | | [facility], TRANSFUSION MEDICINE [address] | | | [place] [address] | + + + PRODUCT - RED CELLS LEUKOREDUCED (07/29/2017 1:58 AM) + + + + | Component | Value | Ref Range | + + + + | PRODUCT DESCRIPTION | -1 RED BLOOD CELLS ADENINE-SALINE ADDED | | | | LEUKOCYT | | + + + + | PRODUCT UNIT # | [id number] | | + + + + | UNIT ABO | O | | + + + + | UNIT RH | POS | | + + + + | STATUS OF UNIT | Presumed Transfused | | + + + + | EXPIRATION DATE | [id number] | | + + + + | BLOOD TYPE BARCODE | 5100 | | + + + + | BLOOD PRODUCT CODE | [id number] | | + + + + + + + | Specimen | Performing Laboratory | + + + | | [facility], TRANSFUSION MEDICINE [address] | | | [address] [address] | + + + ANTIBODY SCREEN (07/29/2017 1:58 AM) + + + + | Component | Value | Ref Range | + + + + | Antibody Screen | Negative | | + + + + + + + | Specimen | Performing Laboratory | + + + | Blood | [facility], TRANSFUSION MEDICINE [address] [facility] | | | [place] [address] | + + + ABO & RH [...] | + + + | Blood | [facility], TRANSFUSION MEDICINE [address] [facility] | | | [place] [address] | + + + TYPE AND SCREEN [...] | ------ ABO & RH | | TYPE[[id number]] F | | inal result ANTIBODY | | SCREEN[[id number]] Fin | | al result Please view [...] | + + + | Blood | [facility], CORE [address] [place] [address] | | | [place] [address] | + + + COAGULOPATHY PANEL (INR,APTT,FIBRINOGEN) [...] | + + + | Blood | [facility], CORE [address] | | | [place] [address] | + + + + + | [...] | + + + | Blood | [facility], CORE [address] [place] [address] | | | [place] [address] | + + + URIC ACID, PLASMA (07/29/2017 1:10 AM) + +---------+ + | Component | Value | Ref Range | + +---------+ + | URIC ACID, PLASMA | 1.0 (L) | 2.5 - 6.2 mg/dL | | (LAB) | | | + +---------+ + + + + | Specimen | Performing Laboratory | + + + | Blood | [facility], CORE [address] [place] [address] | | | [place] [address] | + + + PHOSPHORUS, PLASMA (07/29/2017 1:10 AM) + +-------+ + | Component | Value | Ref Range | + +-------+ + | PHOSPHORUS, PLASMA | 3.3 | 2.4 - 4.7 mg/dL | | (LAB) | | | + +-------+ + + + + | Specimen | Performing Laboratory | + + + | Blood | [facility], CORE [address] | | | [place] [address] | + + + MAGNESIUM, PLASMA (07/29/2017 1:10 AM) + +-------+ + | Component | Value | Ref Range | + +-------+ + | MAGNESIUM,PLASMA | 1.8 | 1.6 - 2.6 mg/dL | + +-------+ + + + + | Specimen | Performing Laboratory | + + + | Blood | [facility], CORE [address] | | | [place] [address] | + + + + + | [...] | ------ CBC AND AUTO | | DIFF[[id number]] Abnormal Final | | result Please view [...] | >60 | >60 mL/min | | TURKMEN | | | + + + + | EGFR NON | >60 | >60 mL/min | | -TURKMEN | | | + + + + [...] | + + + | Blood | [facility], CORE [address] [address] [address] | | | [place] [address] | + + + + + | [...] | + + + | Blood | [facility], CORE [address] [facility] | | | [place] [address] | + + + PHOSPHORUS, PLASMA (07/28/2017 12:14 AM) + +-------+ + | Component | Value | Ref Range | + +-------+ + | PHOSPHORUS, PLASMA | 3.4 | 2.4 - 4.7 mg/dL | | (LAB) | | | + +-------+ + + + + | Specimen | Performing Laboratory | + + + | Blood | [facility], CORE [address] | | | [place] [address] | + + + MAGNESIUM, PLASMA (07/28/2017 12:14 AM) + +-------+ + | Component | Value | Ref Range | + +-------+ + | MAGNESIUM,PLASMA | 1.8 | 1.6 - 2.6 mg/dL | + +-------+ + + + + | Specimen | Performing Laboratory | + + + | Blood | [facility], CORE [address] | | | [place] [address] | + + + + + | [...] | ------ CBC AND AUTO | | DIFF[[id number]] Abnormal Final | | result Please view [...] | >60 | >60 mL/min | | TURKMEN | | | + + + + | EGFR NON | >60 | >60 mL/min | | -TURKMEN | | | + + + + [...] | + + + | Blood | [facility], [facility] [address] [facility] [address] | | | [place] [address] | + + + + + | [...] | + + + | Blood | [facility], [facility] [address] [facility] | | | [place] [address] | + + + PHOSPHORUS, PLASMA (07/27/2017 12:19 AM) + +-------+ + | Component | Value | Ref Range | + +-------+ + | PHOSPHORUS, PLASMA | 3.1 | 2.4 - 4.7 mg/dL | | (LAB) | | | + +-------+ + + + + | Specimen | Performing Laboratory | + + + | Blood | [facility], CORE [address] | | | [place] [address] | + + + MAGNESIUM, PLASMA (07/27/2017 12:19 AM) + +-------+ + | Component | Value | Ref Range | + +-------+ + | MAGNESIUM,PLASMA | 1.8 | 1.6 - 2.6 mg/dL | + +-------+ + + + + | Specimen | Performing Laboratory | + + + | Blood | [facility], [facility] [address] | | | [place] [address] | + + + + + | [...] | ------ CBC AND AUTO | | DIFF[[id number]] Abnormal Final | | result Please view [...] | >60 | >60 mL/min | | TURKMEN | | | + + + + | EGFR NON | >60 | >60 mL/min | | -TURKMEN | | | + + + + [...] | + + + | Blood | [facility], [facility] [address] | | | [place] [address] | + + + + + | [...] + + | PRODUCT UNIT # | [id number] | | + + + + | UNIT ABO | O | | + + + + | UNIT RH | POS | | + + + + | STATUS OF UNIT | Presumed Transfused | | + + + + | EXPIRATION DATE | [id number] | | + + + + | BLOOD TYPE BARCODE | 5100 | | + + + + | BLOOD PRODUCT CODE | [id number] | | + + + + + + + | Specimen | Performing Laboratory | + + + | | [facility], [facility] [address] | | | [place] [address] | + + + PRODUCT - RED CELLS LEUKOREDUCED (07/26/2017 1:39 AM) + + + + | Component | Value | Ref Range | + + + + | PRODUCT DESCRIPTION | -1 RED BLOOD CELLS ADENINE-SALINE ADDED | | | | LEUKOCYT | | + + + + | PRODUCT UNIT # | [id number] | | + + + + | UNIT ABO | O | | + + + + | UNIT RH | POS | | + + + + | STATUS OF UNIT | Presumed Transfused | | + + + + | EXPIRATION DATE | [id number] | | + + + + | BLOOD TYPE BARCODE | 5100 | | + + + + | BLOOD PRODUCT CODE | [id number] | | + + + + + + + | Specimen | Performing Laboratory | + + + | | [facility], [facility] [address] | | | [place] [address] | + + + ANTIBODY SCREEN (07/26/2017 1:36 AM) + + + + | Component | Value | Ref Range | + + + + | Antibody Screen | Negative | | + + + + + + + | Specimen | Performing Laboratory | + + + | Blood | [facility] [address] [place] [address] | | | [place] [address] | + + + ABO & RH [...] | + + + | Blood | [facility] [address] | | | [place] [address] | + + + TYPE AND SCREEN [...] | ------ ABO & RH | | TYPE[[id number]] F | | inal result ANTIBODY | | SCREEN[[id number]] Fin | | al result Please view [...] | + + + | Blood | [facility], [facility] [address] [place] [place] [address] | | | [place] [address] | + + + PHOSPHORUS, PLASMA (07/26/2017 12:40 AM) + +-------+ + | Component | Value | Ref Range | + +-------+ + | PHOSPHORUS, PLASMA | 4.1 | 2.4 - 4.7 mg/dL | | (LAB) | | | + +-------+ + + + + | Specimen | Performing Laboratory | + + + | Blood | [facility], CORE [address] | | | [place] [address] | + + + MAGNESIUM, PLASMA (07/26/2017 12:40 AM) + +-------+ + | Component | Value | Ref Range | + +-------+ + | MAGNESIUM,PLASMA | 1.9 | 1.6 - 2.6 mg/dL | + +-------+ + + + + | Specimen | Performing Laboratory | + + + | Blood | [facility], CORE [address] | | | [place] [address] | + + + + + | [...] | ------ CBC AND AUTO | | DIFF[[id number]] Abnormal Final | | result Please view [...] | >60 | >60 mL/min | | TURKMEN | | | + + + + | EGFR NON | >60 | >60 mL/min | | -TURKMEN | | | + + + + [...] | + + + | Blood | [facility], [facility] [address] | | | [place] [address] | + + + + + | [...] Procedure Note | | Indications:Chemo Procedure location: Unit:[facility] Room: 20 Providers: Attending name: | | Attending physically present: No PICC Nurse name: Laine Patel, RNAssisted by | | Pre-Procedure Consent: written consent obtained Consent given by: Patient | | Patient identity confirmed per protocol: Yes Team Pause: Immediatly prior to the | | procedure a pause per protocol was called. A pause verifies correct patient, | | procedure, equipment, learning support aide and site/side marked as required. CLABSI | [...] Arm area Cephalic vein. Catheter lot number: [id number] with a length of 55 cm | [...] | Narrative | + + | STUDY: CA CHEST 1 VIEW 07/25/17 09:31:38 COMPARISON: 07/20/17 [...] Note | + + | Service Account, [employer] Res In Interface - 07/25/2017 10:38 AM PDT STUDY: CA CHEST 1 | | VIEW 07/25/17 09:31:38COMPARISON: [...] | + + + | Blood | [facility], CORE [address] [place] [address] | | | [place] [address] | + + + COAGULOPATHY PANEL (INR,APTT,FIBRINOGEN) [...] | + + + | Blood | [facility], CORE [address] | | | [place] [address] | + + + + + | [...] | + + + | Blood | [facility], CORE [address] | | | [place] [address] | + + + + + | [...] | + + + | Blood | [facility], CORE [address] | | | [place] [address] | + + + PHOSPHORUS, PLASMA (07/24/2017 11:47 PM) + +-------+ + | Component | Value | Ref Range | + +-------+ + | PHOSPHORUS, PLASMA | 3.4 | 2.4 - 4.7 mg/dL | | (LAB) | | | + +-------+ + + + + | Specimen | Performing Laboratory | + + + | Blood | [facility], CORE [address] [place] [address] | | | [place] [address] | + + + MAGNESIUM, PLASMA (07/24/2017 11:47 PM) + +-------+ + | Component | Value | Ref Range | + +-------+ + | MAGNESIUM,PLASMA | 1.8 | 1.6 - 2.6 mg/dL | + +-------+ + + + + | Specimen | Performing Laboratory | + + + | Blood | [facility], CORE [address] | | | [place] [address] | + + + + + | [...] | ------ CBC AND AUTO | | DIFF[[id number]] Abnormal Final | | result Please view [...] | >60 | >60 mL/min | | T[place]KMEN | | | + + + + | EGFR NON | >60 | >60 mL/min | | -TURKMEN | | | + + + + [...] | + + + | Blood | [facility], [facility] [address] | | | [place] [address] | + + + + + | [...] | + + + | Blood | [facility], CORE [address] [place] [address] | | | [place] [address] | + + + MAGNESIUM, PLASMA (07/23/2017 11:30 PM) + +-------+ + | Component | Value | Ref Range | + +-------+ + | MAGNESIUM,PLASMA | 1.8 | 1.6 - 2.6 mg/dL | + +-------+ + + + + | Specimen | Performing Laboratory | + + + | Blood | [facility], CORE [address] [place] [address] | | | [place] [address] | + + + + + | [...] | >60 | >60 mL/min | | T[place]KMEN | | | + + + + | EGFR NON | >60 | >60 mL/min | | -TURKMEN | | | + + + + [...] | + + + | Blood | [facility], [facility] [address] | | | [place] [address] | + + + + + | [...] | + + + | Blood | [facility], CORE [address] | | | [place] [address] | + + + CBC ONLY (07/23/2017 8:20 PM) + + + | Specimen | Performing Laboratory | + + + | Blood | | + + + + + | Narrative | + + | The following orders were created for panel order CBC ONLY. | | Procedure | | Abnormality Status | | --------- | | ------ CBC (HEMOGRAM) | | ONLY[[id number]] Abnormal Final | | result Please view [...] | + + + | Blood | [facility], [facility] [address] [place] [address] | | | [place] [address] | + + + CBC ONLY (07/23/2017 4:00 AM) + + + | Specimen | Performing Laboratory | + + + | Blood | | + + + + + | Narrative | + + | The following orders were created for panel order CBC ONLY. | | Procedure | | Abnormality Status | | --------- | | ------ CBC (HEMOGRAM) | | ONLY[[id number]] Abnormal Final | | result Please view [...] + + | PRODUCT UNIT # | [id number] | | + + + + | UNIT ABO | O | | + + + + | UNIT RH | POS | | + + + + | STATUS OF UNIT | Presumed Transfused | | + + + + | EXPIRATION DATE | [id number] | | + + + + | BLOOD TYPE BARCODE | 5100 | | + + + + | BLOOD PRODUCT CODE | [id number] | | + + + + + + + | Specimen | Performing Laboratory | + + + | | [facility], TRANSFUSION MEDICINE [address] [facility] | | | [place] [address] | + + + CBC AND AUTO [...] | + + + | Blood | [facility], CORE [address] | | | [place] [address] | + + + INR (07/22/2017 10:50 PM) + +-------+ + | Component | Value | Ref Range | + +-------+ + | INR | 1.13 | 0.90 - 1.20 INR | + +-------+ + + + + | Specimen | Performing Laboratory | + + + | Blood | [facility], CORE [address] | | | [place] [address] | + + + + + | [...] | + + + | Blood | [facility], CORE [address] | | | [place] [address] | + + + MAGNESIUM, PLASMA (07/22/2017 10:50 PM) + +-------+ + | Component | Value | Ref Range | + +-------+ + | MAGNESIUM,PLASMA | 2.0 | 1.6 - 2.6 mg/dL | + +-------+ + + + + | Specimen | Performing Laboratory | + + + | Blood | [facility], CORE [address] | | | [place] [address] | + + + + + | [...] | ------ CBC AND AUTO | | DIFF[[id number]] Abnormal Final | | result Please view [...] | >60 | >60 mL/min | | [place]EN | | | + + + + | EGFR NON | >60 | >60 mL/min | | -TURKMEN | | | + + + + [...] | + + + | Blood | [facility], [facility] [address] | | | [place] [address] | + + + + + | [...] + + | Swab - Rectum | [facility], CORE [address] | | | [place] [address] | + + + PRODUCT - RED CELLS LEUKOREDUCED (07/22/2017 2:36 AM) + + + + | Component | Value | Ref Range | + + + + | PRODUCT DESCRIPTION | -1 RED BLOOD CELLS ADENINE-SALINE ADDED | | | | LEUKOCYT | | + + + + | PRODUCT UNIT # | [id number] | | + + + + | UNIT ABO | O | | + + + + | UNIT RH | POS | | + + + + | STATUS OF UNIT | Presumed Transfused | | + + + + | EXPIRATION DATE | [id number] | | + + + + | BLOOD TYPE BARCODE | 5100 | | + + + + | BLOOD PRODUCT CODE | [id number] | | + + + + + + + | Specimen | Performing Laboratory | + + + | | [facility], TRANSFUSION MEDICINE [address] [facility] [address] | | | [place] [address] | + + + PRODUCT - PLATELET PHERESIS LEUKOREDUCED (07/22/2017 2:36 AM) + + + + | Component | Value | Ref Range | + + + + | PRODUCT DESCRIPTION | PLATELETS PHERESIS, LEUKOCYTE REDUCED, | | | | IRRADIATED | | + + + + | PRODUCT UNIT # | [id number] | | + + + + | UNIT ABO | O | | + + + + | UNIT RH | POS | | + + + + | STATUS OF UNIT | Presumed Transfused | | + + + + | EXPIRATION DATE | [id number] | | + + + + | BLOOD TYPE BARCODE | 5100 | | + + + + | BLOOD PRODUCT CODE | [id number] | | + + + + + + + | Specimen | Performing Laboratory | + + + | | [facility], [facility] [address] [place] [address] | | | [address] [address] | + + + ANTIBODY SCREEN (07/22/2017 12:35 AM) + + + + | Component | Value | Ref Range | + + + + | Antibody Screen | Negative | | + + + + + + + | Specimen | Performing Laboratory | + + + | Blood | [facility], TRANSFUSION MEDICINE [address] [facility] | | | [place] [address] | + + + ABO & RH [...] | + + + | Blood | [facility], TRANSFUSION MEDICINE [address] [facility] | | | [place] [address] | + + + TYPE AND SCREEN [...] | ------ ABO & RH | | TYPE[[id number]] F | | inal result ANTIBODY | | SCREEN[[id number]] Fin | | al result Please view [...] | + + + | Blood | [facility], CORE [address] | | | [place] [address] | + + + COAGULOPATHY PANEL (INR,APTT,FIBRINOGEN) [...] | + + + | Blood | [facility], CORE [address] | | | [place] [address] | + + + + + | [...] | + + + | Blood | [facility], CORE [address] | | | [place] [address] | + + + URIC ACID, PLASMA (07/22/2017 12:35 AM) + +---------+ + | Component | Value | Ref Range | + +---------+ + | URIC ACID, PLASMA | 2.2 (L) | 2.5 - 6.2 mg/dL | | (LAB) | | | + +---------+ + + + + | Specimen | Performing Laboratory | + + + | Blood | [facility], CORE [address] | | | [place] [address] | + + + PHOSPHORUS, PLASMA (07/22/2017 12:35 AM) + +-------+ + | Component | Value | Ref Range | + +-------+ + | PHOSPHORUS, PLASMA | 3.2 | 2.4 - 4.7 mg/dL | | (LAB) | | | + +-------+ + + + + | Specimen | Performing Laboratory | + + + | Blood | [facility], CORE [address] [place] [address] | | | [place] [address] | + + + MAGNESIUM, PLASMA (07/22/2017 12:35 AM) + +-------+ + | Component | Value | Ref Range | + +-------+ + | MAGNESIUM,PLASMA | 2.2 | 1.6 - 2.6 mg/dL | + +-------+ + + + + | Specimen | Performing Laboratory | + + + | Blood | [facility], CORE [address] [place] [address] | | | [place] [address] | + + + + + | [...] | ------ CBC AND AUTO | | DIFF[[id number]] Abnormal Final | | result Please view [...] | >60 | >60 mL/min | | [place]EN | | | + + + + | EGFR NON | >60 | >60 mL/min | | -TURKMEN | | | + + + + [...] | + + + | Blood | [facility], [facility] [address] | | | [place] [address] | + + + + + | [...] + | Blood - PICC purple | [facility], CORE [address] | | port | [place] [address] | + + + CULTURE, BLOOD BACTI [...] ------ CULTURE, BLOOD | | BACTI & Y...[[id number]] Final | | result Please view results [...] | + + + | Blood | [facility], CORE [address] | | | [place] [address] | + + + + + | [...] | + + + | Blood | [facility], CORE [address] [place] [address] | | | [place] [address] | + + + INR (07/20/2017 11:00 PM) + +-------+ + | Component | Value | Ref Range | + +-------+ + | INR | 1.14 | 0.90 - 1.20 INR | + +-------+ + + + + | Specimen | Performing Laboratory | + + + | Blood | [facility], CORE [address] | | | [place] [address] | + + + + + | [...] | + + + | Blood | [facility], CORE [address] [place] [address] | | | [place] [address] | + + + MAGNESIUM, PLASMA (07/20/2017 11:00 PM) + +-------+ + | Component | Value | Ref Range | + +-------+ + | MAGNESIUM,PLASMA | 1.6 | 1.6 - 2.6 mg/dL | + +-------+ + + + + | Specimen | Performing Laboratory | + + + | Blood | [facility], CORE [address] | | | [place], [place] [address] | + + + + + | [...] | ------ CBC AND AUTO | | DIFF[[id number]] Abnormal Final | | result Please view [...] | >60 | >60 mL/min | | T[place]KMEN | | | + +---------+ + | EGFR NON | >60 | >60 mL/min | | -TURKMEN | | | + +---------+ + | [...] | + + + | Blood | [facility], CORE [address] [facility] | | | [place] [address] | + + + + + | [...] Laboratory | + + + | | [facility]ICE RECOGNITION | + [...] | + + + | Urine | [facility], CORE [address] | | | [place], [place] [address] | + + + URINE SCREEN FOR CULTURE (07/20/2017 8:00 PM) + + + + | Component | Value | Ref Range | + + + + | CULT, URINE SCREEN | Negative | Negative | + + + + + + + | Specimen | Performing Laboratory | + + + | Urine | [facility], [facility] [address] | | | [place] [address] | + + + + + | [...] + + | Blood - Peripheral | [facility], CORE [address] | | | [place] [address] | + + + CULTURE, BLOOD BACTI [...] ------ CULTURE, BLOOD | | BACTI & Y...[[id number]] Final | | result Please view results [...] + | Blood - Blue port | [facility] [place] [id number] [place] [address] | | lumen | [address] | + + + + + | [...] + | Blood - Blue port | [facility], CORE [address] | | lumen | [place] [address] | + + + + + | [...] | | ------ BLOOD CULTURE | | WORKUP[[id number]] Abnormal Final | | result CULTURE, BLOOD BACTI & | | Y...[[id number]] Abnormal Final result | | Please view [...] + + | PRODUCT UNIT # | [id number] | | + + + + | UNIT ABO | O | | + + + + | UNIT RH | POS | | + + + + | STATUS OF UNIT | Presumed Transfused | | + + + + | EXPIRATION DATE | [id number] | | + + + + | BLOOD TYPE BARCODE | 5100 | | + + + + | BLOOD PRODUCT CODE | [id number] | | + + + + + + + | Specimen | Performing Laboratory | + + + | | [facility], TRANSFUSION MEDICINE [address] [facility] | | | [address] [place] [address] | + + + CBC AND AUTO [...] | + + + | Blood | [facility], [address] [address] | | | [place] [address] | + + + INR (07/19/2017 11:05 PM) + +-------+ + | Component | Value | Ref Range | + +-------+ + | INR | 1.08 | 0.90 - 1.20 INR | + +-------+ + + + + | Specimen | Performing Laboratory | + + + | Blood | [facility], CORE [address] | | | [place] [address] | + + + + + | [...] | + + + | Blood | [facility], CORE [address] [place] [address] | | | [place] [address] | + + + MAGNESIUM, PLASMA (07/19/2017 11:05 PM) + +-------+ + | Component | Value | Ref Range | + +-------+ + | MAGNESIUM,PLASMA | 2.3 | 1.6 - 2.6 mg/dL | + +-------+ + + + + | Specimen | Performing Laboratory | + + + | Blood | [facility], CORE [address] | | | [place] [address] | + + + + + | [...] | ------ CBC AND AUTO | | DIFF[[id number]] Abnormal Final | | result Please view [...] | >60 | >60 mL/min | | [place] | | | + + + + | EGFR NON | >60 | >60 mL/min | | -TURKMEN | | | + + + + [...] | + + + | Blood | [facility], CORE [address] | | | [place] [address] | + + + + + | [...] | + + + | Blood | [facility], CORE [address] | | | [place] [address] | + + + INR (07/18/2017 11:05 PM) + +-------+ + | Component | Value | Ref Range | + +-------+ + | INR | 1.10 | 0.90 - 1.20 INR | + +-------+ + + + + | Specimen | Performing Laboratory | + + + | Blood | [facility], CORE [address] | | | [place] [address] | + + + + + | [...] | + + + | Blood | [facility], CORE [address] | | | [place] [address] | + + + MAGNESIUM, PLASMA (07/18/2017 11:05 PM) + +-------+ + | Component | Value | Ref Range | + +-------+ + | MAGNESIUM,PLASMA | 1.6 | 1.6 - 2.6 mg/dL | + +-------+ + + + + | Specimen | Performing Laboratory | + + + | Blood | [facility], CORE [address] | | | [place] [address] | + + + + + | [...] | ------ CBC AND AUTO | | DIFF[[id number]] Abnormal Final | | result Please view [...] | >60 | >60 mL/min | | TURKMEN | | | + + + + | EGFR NON | >60 | >60 mL/min | | -TURKMEN | | | + + + + [...] | + + + | Blood | [facility], CORE [address] [facility] [address] | | | [place] [address] | + + + + + | [...] + + | PRODUCT UNIT # | [id number] | | + + + + | UNIT ABO | O | | + + + + | UNIT RH | POS | | + + + + | STATUS OF UNIT | Presumed Transfused | | + + + + | EXPIRATION DATE | [id number] | | + + + + | BLOOD TYPE BARCODE | 5100 | | + + + + | BLOOD PRODUCT CODE | [id number] | | + + + + + + + | Specimen | Performing Laboratory | + + + | | [facility], TRANSFUSION MEDICINE [address] [facility] | | | [place] [address] | + + + PRODUCT - RED CELLS LEUKOREDUCED (07/18/2017 12:50 AM) + + + + | Component | Value | Ref Range | + + + + | PRODUCT DESCRIPTION | -1 RED BLOOD CELLS ADENINE-SALINE ADDED | | | | LEUKOCYT | | + + + + | PRODUCT UNIT # | [id number] | | + + + + | UNIT ABO | O | | + + + + | UNIT RH | POS | | + + + + | STATUS OF UNIT | Presumed Transfused | | + + + + | EXPIRATION DATE | [id number] | | + + + + | BLOOD TYPE BARCODE | 5100 | | + + + + | BLOOD PRODUCT CODE | [id number] | | + + + + + + + | Specimen | Performing Laboratory | + + + | | [facility], TRANSFUSION MEDICINE [address] | | | [place] [address] | + + + FIBRINOGEN (07/17/2017 11:47 PM) + +---------+ + | Component | Value | Ref Range | + +---------+ + | FIBRINOGEN LEVEL | 478 (H) | 200 - 450 mg/dL | + +---------+ + + + + | Specimen | Performing Laboratory | + + + | Blood | [facility], CORE [address] | | | [place] [address] | + + + APTT (ACT. PART. THROMBO TIME) (07/17/2017 11:47 PM) + + + + | Component | Value | Ref Range | + + + + | APTT | 37.5 (H) | 26.0 - 36.0 seconds | + + + + + + + | Specimen | Performing Laboratory | + + + | Blood | [facility], CORE [address] | | | [place] [address] | + + + + + | [...] | + + + | Blood | [facility], CORE [address] [place] [address] | | | [place] [address] | + + + URIC ACID, PLASMA (07/17/2017 11:47 PM) + +---------+ + | Component | Value | Ref Range | + +---------+ + | URIC ACID, PLASMA | 2.2 (L) | 2.5 - 6.2 mg/dL | | (LAB) | | | + +---------+ + + + + | Specimen | Performing Laboratory | + + + | Blood | [facility], CORE [address] | | | [place] [address] | + + + CBC AND AUTO [...] | + + + | Blood | [facility], CORE [address] | | | [place] [address] | + + + INR (07/17/2017 11:47 PM) + +-------+ + | Component | Value | Ref Range | + +-------+ + | INR | 1.10 | 0.90 - 1.20 INR | + +-------+ + + + + | Specimen | Performing Laboratory | + + + | Blood | [facility], CORE [address] | | | [place] [address] | + + + + + | [...] | + + + | Blood | [facility], CORE [address] | | | [place] [address] | + + + MAGNESIUM, PLASMA (07/17/2017 11:47 PM) + +-------+ + | Component | Value | Ref Range | + +-------+ + | MAGNESIUM,PLASMA | 1.7 | 1.6 - 2.6 mg/dL | + +-------+ + + + + | Specimen | Performing Laboratory | + + + | Blood | [facility], CORE [address] | | | [place] [address] | + + + + + | [...] | ------ CBC AND AUTO | | DIFF[[id number]] Abnormal Final | | result Please view [...] | >60 | >60 mL/min | | [place]EN | | | + + + + | EGFR NON | >60 | >60 mL/min | | -TURKMEN | | | + + + + [...] | + + + | Blood | [facility], CORE [address] | | | [place] [address] | + + + + + | [...] | + + + | Blood | [facility], TRANSFUSION MEDICINE [address] [facility] | | | [place] [address] | + + + ABO & RH [...] | + + + | Blood | [facility], TRANSFUSION MEDICINE [address] [place] [address] | | | [place] [address] | + + + TYPE AND SCREEN [...] | ------ ABO & RH | | TYPE[[id number]] F | | inal result ANTIBODY | | SCREEN[[id number]] Fin | | al result Please view [...] | + + + | Blood | [facility], CORE [address] | | | [place] [address] | + + + INR (07/16/2017 11:48 PM) + +-------+ + | Component | Value | Ref Range | + +-------+ + | INR | 1.09 | 0.90 - 1.20 INR | + +-------+ + + + + | Specimen | Performing Laboratory | + + + | Blood | [facility], CORE [address] | | | [place] [address] | + + + + + | [...] | + + + | Blood | [facility], CORE [address] [place] [address] | | | [place] [address] | + + + MAGNESIUM, PLASMA (07/16/2017 11:48 PM) + +-------+ + | Component | Value | Ref Range | + +-------+ + | MAGNESIUM,PLASMA | 1.7 | 1.6 - 2.6 mg/dL | + +-------+ + + + + | Specimen | Performing Laboratory | + + + | Blood | [facility], CORE [address] [place] [address] | | | [place] [address] | + + + + + | [...] | ------ CBC AND AUTO | | DIFF[[id number]] Abnormal Final | | result Please view [...] | >60 | >60 mL/min | | TURKMEN | | | + + + + | EGFR NON | >60 | >60 mL/min | | -TURKMEN | | | + + + + [...] | + + + | Blood | [facility], CORE [address] | | | [place] [address] | + + + + + | [...] | + + + | Blood | [facility], CORE [address] [place] [address] [place] | | | [place] [address] | + + + CBC AND AUTO [...] | + + + | Blood | [facility], CORE [address] | | | [place] [address] | + + + INR (07/15/2017 11:51 PM) + +-------+ + | Component | Value | Ref Range | + +-------+ + | INR | 1.05 | 0.90 - 1.20 INR | + +-------+ + + + + | Specimen | Performing Laboratory | + + + | Blood | [facility], CORE [address] | | | [place] [address] | + + + + + | [...] | + + + | Blood | [facility], CORE [address] | | | [place] [address] | + + + MAGNESIUM, PLASMA (07/15/2017 11:51 PM) + +-------+ + | Component | Value | Ref Range | + +-------+ + | MAGNESIUM,PLASMA | 1.7 | 1.6 - 2.6 mg/dL | + +-------+ + + + + | Specimen | Performing Laboratory | + + + | Blood | [facility], CORE [address] | | | [place] [address] | + + + + + | [...] | ------ CBC AND AUTO | | DIFF[[id number]] Abnormal Final | | result Please view [...] | >60 | >60 mL/min | | TURKMEN | | | + + + + | EGFR NON | >60 | >60 mL/min | | -TURKMEN | | | + + + + [...] | + + + | Blood | [facility], CORE [address] | | | [place] [address] | + + + + + | [...] + + | Swab - Rectum | [facility], CORE [address] [facility] [address] | | | [place] [address] | + + + PRODUCT - RED CELLS LEUKOREDUCED (07/15/2017 1:12 AM) + + + + | Component | Value | Ref Range | + + + + | PRODUCT DESCRIPTION | -1 RED BLOOD CELLS ADENINE-SALINE ADDED | | | | LEUKOCYT | | + + + + | PRODUCT UNIT # | [id number] | | + + + + | UNIT ABO | O | | + + + + | UNIT RH | POS | | + + + + | STATUS OF UNIT | Presumed Transfused | | + + + + | EXPIRATION DATE | [id number] | | + + + + | BLOOD TYPE BARCODE | 5100 | | + + + + | BLOOD PRODUCT CODE | [id number] | | + + + + + + + | Specimen | Performing Laboratory | + + + | | [facility], TRANSFUSION MEDICINE [address] [facility] | | | [place] [address] | + + + PRODUCT - PLATELET PHERESIS LEUKOREDUCED (07/15/2017 1:12 AM) + + + + | Component | Value | Ref Range | + + + + | PRODUCT DESCRIPTION | PLATELETS PHERESIS, LEUKOCYTE REDUCED, | | | | IRRADIATED | | + + + + | PRODUCT UNIT # | [id number] | | + + + + | UNIT ABO | O | | + + + + | UNIT RH | POS | | + + + + | STATUS OF UNIT | Presumed Transfused | | + + + + | EXPIRATION DATE | [id number] | | + + + + | BLOOD TYPE BARCODE | 5100 | | + + + + | BLOOD PRODUCT CODE | [id number] | | + + + + + + + | Specimen | Performing Laboratory | + + + | | [facility], TRANSFUSION MEDICINE [address] [facility] | | | [place] [address] | + + + COAGULOPATHY PANEL (INR,APTT,FIBRINOGEN) [...] | + + + | Blood | [facility], CORE [address] [facility] | | | [place] [address] | + + + + + | [...] | + + + | Blood | [facility], CORE [address] | | | [place] [address] | + + + URIC ACID, PLASMA (07/15/2017) + +---------+ + | Component | Value | Ref Range | + +---------+ + | URIC ACID, PLASMA | 1.3 (L) | 2.5 - 6.2 mg/dL | | (LAB) | | | + +---------+ + + + + | Specimen | Performing Laboratory | + + + | Blood | [facility], CORE [address] | | | [place] [address] | + + + CBC AND AUTO [...] | + + + | Blood | [facility], CORE [address] [place] [address] | | | [place] [address] | + + + PHOSPHORUS, PLASMA (07/15/2017) + +-------+ + | Component | Value | Ref Range | + +-------+ + | PHOSPHORUS, PLASMA | 2.6 | 2.4 - 4.7 mg/dL | | (LAB) | | | + +-------+ + + + + | Specimen | Performing Laboratory | + + + | Blood | [facility], CORE [address] | | | [place] [address] | + + + MAGNESIUM, PLASMA (07/15/2017) + +-------+ + | Component | Value | Ref Range | + +-------+ + | MAGNESIUM,PLASMA | 1.8 | 1.6 - 2.6 mg/dL | + +-------+ + + + + | Specimen | Performing Laboratory | + + + | Blood | [facility], CORE [address] | | | [place] [address] | + + + + + | [...] | ------ CBC AND AUTO | | DIFF[[id number]] Abnormal Final | | result Please view [...] | >60 | >60 mL/min | | TURKMEN | | | + + + + | EGFR NON | >60 | >60 mL/min | | -TURKMEN | | | + + + + [...] | + + + | Blood | [facility], [address] | | | [place] [address] | + + + + + | [...] | + + + | Blood | [facility], CORE [address] | | | [place] [address] | + + + INR (07/13/2017 11:30 PM) + +-------+ + | Component | Value | Ref Range | + +-------+ + | INR | 1.05 | 0.90 - 1.20 INR | + +-------+ + + + + | Specimen | Performing Laboratory | + + + | Blood | [facility], CORE [address] [place] [address] | | | [facility] [address] | + + + + + | [...] | + + + | Blood | [facility], CORE [address] | | | [place] [address] | + + + MAGNESIUM, PLASMA (07/13/2017 11:30 PM) + +-------+ + | Component | Value | Ref Range | + +-------+ + | MAGNESIUM,PLASMA | 1.8 | 1.6 - 2.6 mg/dL | + +-------+ + + + + | Specimen | Performing Laboratory | + + + | Blood | [facility], CORE [address] | | | [place] [address] | + + + + + | [...] | ------ CBC AND AUTO | | DIFF[[id number]] Abnormal Final | | result Please view [...] | >60 | >60 mL/min | | T[place]KMEN | | | + + + + | EGFR NON | >60 | >60 mL/min | | -TURKMEN | | | + + + + [...] | + + + | Blood | [facility], CORE [address] | | | [place] [address] | + + + + + | [...] | + + + | Blood | [facility], TRANSFUSION MEDICINE [address] [place] [address] | | | [place] [address] | + + + ABO & RH [...] | + + + | Blood | [facility], TRANSFUSION MEDICINE [address] [facility] | | | [place] [address] | + + + TYPE AND SCREEN [...] | ------ ABO & RH | | TYPE[[id number]] F | | inal result ANTIBODY | | SCREEN[[id number]] Fin | | al result Please view [...] + + | PRODUCT UNIT # | [id number] | | + + + + | UNIT ABO | O | | + + + + | UNIT RH | POS | | + + + + | STATUS OF UNIT | Presumed Transfused | | + + + + | EXPIRATION DATE | [id number] | | + + + + | BLOOD TYPE BARCODE | 5100 | | + + + + | BLOOD PRODUCT CODE | [id number] | | + + + + + + + | Specimen | Performing Laboratory | + + + | | [facility], TRANSFUSION MEDICINE [address] [place] [address] | | | [place] [address] | + + + CBC AND AUTO [...] | + + + | Blood | [facility], CORE [address] | | | [place] [address] | + + + INR (07/12/2017 11:31 PM) + +-------+ + | Component | Value | Ref Range | + +-------+ + | INR | 1.05 | 0.90 - 1.20 INR | + +-------+ + + + + | Specimen | Performing Laboratory | + + + | Blood | [facility], CORE [address] | | | [place] [address] | + + + + + | [...] | + + + | Blood | [facility], CORE [address] [place] [address] | | | [place] [address] | + + + MAGNESIUM, PLASMA (07/12/2017 11:31 PM) + +-------+ + | Component | Value | Ref Range | + +-------+ + | MAGNESIUM,PLASMA | 1.8 | 1.6 - 2.6 mg/dL | + +-------+ + + + + | Specimen | Performing Laboratory | + + + | Blood | [facility], CORE [address] | | | [place] [address] | + + + + + | [...] | ------ CBC AND AUTO | | DIFF[[id number]] Abnormal Final | | result Please view [...] | >60 | >60 mL/min | | TURKMEN | | | + + + + | EGFR NON | >60 | >60 mL/min | | -TURKMEN | | | + + + + [...] | + + + | Blood | [facility], [address] | | | [place] [address] | + + + + + | [...] + + | PRODUCT UNIT # | [id number] | | + + + + | UNIT ABO | A | | + + + + | UNIT RH | POS | | + + + + | STATUS OF UNIT | Presumed Transfused | | + + + + | EXPIRATION DATE | [id number] | | + + + + | BLOOD TYPE BARCODE | 6200 | | + + + + | BLOOD PRODUCT CODE | [id number] | | + + + + + + + | Specimen | Performing Laboratory | + + + | | [facility], TRANSFUSION MEDICINE [address] [facility] | | | [place] [address] | + + + CBC AND AUTO [...] | + + + | Blood | [facility], CORE [address] | | | [place] [address] | + + + INR (07/12/2017 1:04 AM) + +-------+ + | Component | Value | Ref Range | + +-------+ + | INR | 1.04 | 0.90 - 1.20 INR | + +-------+ + + + + | Specimen | Performing Laboratory | + + + | Blood | [facility], CORE [address] [facility] [address] | | | [place] [address] | + + + + + | [...] | + + + | Blood | [facility], CORE [address] [place] [address] | | | [place] [address] | + + + URIC ACID, PLASMA (07/12/2017 1:04 AM) + +---------+ + | Component | Value | Ref Range | + +---------+ + | URIC ACID, PLASMA | 1.3 (L) | 2.5 - 6.2 mg/dL | | (LAB) | | | + +---------+ + + + + | Specimen | Performing Laboratory | + + + | Blood | [facility], CORE [address] | | | [place] [address] | + + + PHOSPHORUS, PLASMA (07/12/2017 1:04 AM) + +-------+ + | Component | Value | Ref Range | + +-------+ + | PHOSPHORUS, PLASMA | 3.1 | 2.4 - 4.7 mg/dL | | (LAB) | | | + +-------+ + + + + | Specimen | Performing Laboratory | + + + | Blood | [facility], CORE [address] | | | [place] [address] | + + + MAGNESIUM, PLASMA (07/12/2017 1:04 AM) + +-------+ + | Component | Value | Ref Range | + +-------+ + | MAGNESIUM,PLASMA | 2.0 | 1.6 - 2.6 mg/dL | + +-------+ + + + + | Specimen | Performing Laboratory | + + + | Blood | [facility], CORE [address] | | | [place], [place] [address] | + + + + + | [...] | ------ CBC AND AUTO | | DIFF[[id number]] Abnormal Final | | result Please view [...] | >60 | >60 mL/min | | TURKMEN | | | + + + + | EGFR NON | >60 | >60 mL/min | | -TURKMEN | | | + + + + [...] | + + + | Blood | [facility], CORE [address] | | | [place] [address] | + + + + + | [...] + + | PRODUCT UNIT # | [id number] | | + + + + | UNIT ABO | O | | + + + + | UNIT RH | POS | | + + + + | STATUS OF UNIT | Presumed Transfused | | + + + + | EXPIRATION DATE | [id number] | | + + + + | BLOOD TYPE BARCODE | 5100 | | + + + + | BLOOD PRODUCT CODE | [id number] | | + + + + + + + | Specimen | Performing Laboratory | + + + | | [facility], TRANSFUSION MEDICINE [address] [facility] | | | [place] [address] | + + + INR (07/10/2017 11:54 PM) + +-------+ + | Component | Value | Ref Range | + +-------+ + | INR | 1.14 | 0.90 - 1.20 INR | + +-------+ + + + + | Specimen | Performing Laboratory | + + + | Blood | [facility], CORE [address] | | | [place] [address] | + + + + + | [...] | + + + | Blood | [facility], CORE [address] [place] [address] | | | [place] [address] | + + + LDH TOTAL, PLASMA [...] | + + + | Blood | [facility], CORE [address] [facility] [address] | | | [place] [address] | + + + URIC ACID, PLASMA (07/10/2017 11:53 PM) + +---------+ + | Component | Value | Ref Range | + +---------+ + | URIC ACID, PLASMA | 1.4 (L) | 2.5 - 6.2 mg/dL | | (LAB) | | | + +---------+ + + + + | Specimen | Performing Laboratory | + + + | Blood | [facility], CORE [address] | | | [place] [address] | + + + PHOSPHORUS, PLASMA (07/10/2017 11:53 PM) + +-------+ + | Component | Value | Ref Range | + +-------+ + | PHOSPHORUS, PLASMA | 2.8 | 2.4 - 4.7 mg/dL | | (LAB) | | | + +-------+ + + + + | Specimen | Performing Laboratory | + + + | Blood | [facility], CORE [address] | | | [place] [address] | + + + MAGNESIUM, PLASMA (07/10/2017 11:53 PM) + +-------+ + | Component | Value | Ref Range | + +-------+ + | MAGNESIUM,PLASMA | 2.0 | 1.6 - 2.6 mg/dL | + +-------+ + + + + | Specimen | Performing Laboratory | + + + | Blood | [facility], CORE [address] [place] [address] | | | [place] [address] | + + + + + | [...] | ------ CBC AND AUTO | | DIFF[[id number]] Abnormal Final | | result Please view [...] | >60 | >60 mL/min | | TURKMEN | | | + + + + | EGFR NON | >60 | >60 mL/min | | -TURKMEN | | | + + + + [...] | + + + | Blood | [facility], CORE [address] [place] [address] | | | [place] [address] | + + + + + | [...] | + + + | Blood | [facility], CORE [address] | | | [place] [address] | + + + INR (07/10/2017 12:12 AM) + +-------+ + | Component | Value | Ref Range | + +-------+ + | INR | 1.07 | 0.90 - 1.20 INR | + +-------+ + + + + | Specimen | Performing Laboratory | + + + | Blood | [facility], CORE [address] | | | [place] [address] | + + + + + | [...] | + + + | Blood | [facility], CORE [address] [place] [address] | | | [place] [address] | + + + URIC ACID, PLASMA (07/10/2017 12:12 AM) + +---------+ + | Component | Value | Ref Range | + +---------+ + | URIC ACID, PLASMA | 1.4 (L) | 2.5 - 6.2 mg/dL | | (LAB) | | | + +---------+ + + + + | Specimen | Performing Laboratory | + + + | Blood | [facility], [address] | | | [place] [address] | + + + PHOSPHORUS, PLASMA (07/10/2017 12:12 AM) + +-------+ + | Component | Value | Ref Range | + +-------+ + | PHOSPHORUS, PLASMA | 2.9 | 2.4 - 4.7 mg/dL | | (LAB) | | | + +-------+ + + + + | Specimen | Performing Laboratory | + + + | Blood | [facility], CORE [address] [facility] | | | [place] [address] | + + + MAGNESIUM, PLASMA (07/10/2017 12:12 AM) + +-------+ + | Component | Value | Ref Range | + +-------+ + | MAGNESIUM,PLASMA | 2.1 | 1.6 - 2.6 mg/dL | + +-------+ + + + + | Specimen | Performing Laboratory | + + + | Blood | [facility], CORE [address] [facility] | | | [place] [address] | + + + + + | [...] | ------ CBC AND AUTO | | DIFF[[id number]] Abnormal Final | | result Please view [...] | >60 | >60 mL/min | | T[place]KMEN | | | + + + + | EGFR NON | >60 | >60 mL/min | | -TURKMEN | | | + + + + [...] | + + + | Blood | [facility], CORE [address] [facility] [address] | | | [place] [address] | + + + + + | [...] + + | PRODUCT UNIT # | [id number] | | + + + + | UNIT ABO | O | | + + + + | UNIT RH | POS | | + + + + | STATUS OF UNIT | Presumed Transfused | | + + + + | EXPIRATION DATE | [id number] | | + + + + | BLOOD TYPE BARCODE | 5100 | | + + + + | BLOOD PRODUCT CODE | [id number] | | + + + + + + + | Specimen | Performing Laboratory | + + + | | [facility], TRANSFUSION MEDICINE [address] [facility] | | | [place] [address] | + + + PRODUCT - RED CELLS LEUKOREDUCED (07/09/2017 3:33 AM) + + + + | Component | Value | Ref Range | + + + + | PRODUCT DESCRIPTION | -1 RED BLOOD CELLS ADENINE-SALINE ADDED | | | | LEUKOCYT | | + + + + | PRODUCT UNIT # | [id number] | | + + + + | UNIT ABO | O | | + + + + | UNIT RH | POS | | + + + + | STATUS OF UNIT | Presumed Transfused | | + + + + | EXPIRATION DATE | [id number] | | + + + + | BLOOD TYPE BARCODE | 5100 | | + + + + | BLOOD PRODUCT CODE | [id number] | | + + + + + + + | Specimen | Performing Laboratory | + + + | | [facility], TRANSFUSION MEDICINE [address] | | | [place] [address] | + + + ANTIBODY SCREEN (07/09/2017 1:56 AM) + + + + | Component | Value | Ref Range | + + + + | Antibody Screen | Negative | | + + + + + + + | Specimen | Performing Laboratory | + + + | Blood | [facility], TRANSFUSION MEDICINE [address] | | | [address] [place] [address] | + + + ABO & RH [...] | + + + | Blood | [facility], TRANSFUSION MEDICINE [address] [facility] | | | [place] [address] | + + + TYPE AND SCREEN [...] | ------ ABO & RH | | TYPE[[id number]] F | | inal result ANTIBODY | | SCREEN[[id number]] Fin | | al result Please view [...] | + + + | Blood | [facility], CORE [address] [place] [address] | | | [place] [address] | + + + INR (07/09/2017 1:20 AM) + +-------+ + | Component | Value | Ref Range | + +-------+ + | INR | 1.08 | 0.90 - 1.20 INR | + +-------+ + + + + | Specimen | Performing Laboratory | + + + | Blood | [facility], CORE [address] | | | [place] [address] | + + + + + | [...] | + + + | Blood | [facility], CORE [address] | | | [place] [address] | + + + URIC ACID, PLASMA (07/09/2017 1:20 AM) + +---------+ + | Component | Value | Ref Range | + +---------+ + | URIC ACID, PLASMA | 1.3 (L) | 2.5 - 6.2 mg/dL | | (LAB) | | | + +---------+ + + + + | Specimen | Performing Laboratory | + + + | Blood | [facility], CORE [address] | | | [place] [address] | + + + PHOSPHORUS, PLASMA (07/09/2017 1:20 AM) + +-------+ + | Component | Value | Ref Range | + +-------+ + | PHOSPHORUS, PLASMA | 2.8 | 2.4 - 4.7 mg/dL | | (LAB) | | | + +-------+ + + + + | Specimen | Performing Laboratory | + + + | Blood | [facility], [facility] [address] | | | [place] [address] | + + + MAGNESIUM, PLASMA (07/09/2017 1:20 AM) + +-------+ + | Component | Value | Ref Range | + +-------+ + | MAGNESIUM,PLASMA | 2.0 | 1.6 - 2.6 mg/dL | + +-------+ + + + + | Specimen | Performing Laboratory | + + + | Blood | [facility], CORE [address] | | | [place] [address] | + + + + + | [...] | ------ CBC AND AUTO | | DIFF[[id number]] Abnormal Final | | result Please view [...] | >60 | >60 mL/min | | TURKMEN | | | + + + + | EGFR NON | >60 | >60 mL/min | | -TURKMEN | | | + + + + [...] | + + + | Blood | [facility], CORE [address] | | | [place] [address] | + + + + + | [...] + + | Swab - Rectum | [facility], CORE [address] | | | [place] [address] | + + + CAPILLARY BLOOD GLUCOSE [...] [address] | | | [place] [address] | + + + CAPILLARY BLOOD GLUCOSE [...] [address] | | | [place] [address] | + + + PRODUCT - PLATELET PHERESIS LEUKOREDUCED (07/08/2017 3:39 AM) + + + + | Component | Value | Ref Range | + + + + | PRODUCT DESCRIPTION | APHERESIS | | | | PLATELETS,PAS,LEUKOREDUCED,IRRADIATED | | + + + + | PRODUCT UNIT # | [id number] | | + + + + | UNIT ABO | A | | + + + + | UNIT RH | POS | | + + + + | STATUS OF UNIT | Presumed Transfused | | + + + + | EXPIRATION DATE | [id number] | | + + + + | BLOOD TYPE BARCODE | 6200 | | + + + + | BLOOD PRODUCT CODE | [id number] | | + + + + + + + | Specimen | Performing Laboratory | + + + | | [facility], TRANSFUSION MEDICINE [address] [facility] | | | [place] [address] | + + + INR (07/08/2017 1:19 AM) + +-------+ + | Component | Value | Ref Range | + +-------+ + | INR | 1.07 | 0.90 - 1.20 INR | + +-------+ + + + + | Specimen | Performing Laboratory | + + + | Blood | [facility], CORE [address] | | | [facility] [place] [address] | + + + + + | [...] | + + + | Blood | [facility], CORE [address] | | | [place], [place] [address] | + + + URIC ACID, PLASMA (07/08/2017 1:19 AM) + +---------+ + | Component | Value | Ref Range | + +---------+ + | URIC ACID, PLASMA | 1.4 (L) | 2.5 - 6.2 mg/dL | | (LAB) | | | + +---------+ + + + + | Specimen | Performing Laboratory | + + + | Blood | [facility], CORE [address] [facility] [address] | | | [facility] [address] | + + + PHOSPHORUS, PLASMA (07/08/2017 1:19 AM) + +-------+ + | Component | Value | Ref Range | + +-------+ + | PHOSPHORUS, PLASMA | 3.1 | 2.4 - 4.7 mg/dL | | (LAB) | | | + +-------+ + + + + | Specimen | Performing Laboratory | + + + | Blood | [facility], CORE [address] | | | [place] [address] | + + + MAGNESIUM, PLASMA (07/08/2017 1:19 AM) + +-------+ + | Component | Value | Ref Range | + +-------+ + | MAGNESIUM,PLASMA | 2.0 | 1.6 - 2.6 mg/dL | + +-------+ + + + + | Specimen | Performing Laboratory | + + + | Blood | [facility], CORE [address] | | | [place], [place] [address] | + + + + + | [...] | >60 | >60 mL/min | | TURKMEN | | | + + + + | EGFR NON | >60 | >60 mL/min | | -TURKMEN | | | + + + + [...] [facility], CORE [address] | | | [place] [address] | + + + + + | [...] | + + + | Blood | [facility], CORE [address] | | | [facility] [place] [address] | + + + CBC, WITH DIFFERENTIAL [...] | ------ CBC AND AUTO | | DIFF[[id number]] Abnormal Final | | result Please view [...] [address] | | | [place] [address] | + + + CAPILLARY BLOOD GLUCOSE (NO CHG), POC (07/07/2017 2:27 PM) + +---------+ + | Component | Value | Ref Range | + +---------+ + | BLOOD GLUCOSE, POC | 115 (H) | 70 - 99 mg/dL | + +---------+ + + + + | Specimen | Performing Laboratory | + + + | | [facility] [address] | | | [place] [address] | + + + CAPILLARY BLOOD GLUCOSE [...] [address] | | | [place] [address] | + + + PRODUCT - RED CELLS LEUKOREDUCED (07/07/2017 12:28 AM) + + + + | Component | Value | Ref Range | + + + + | PRODUCT DESCRIPTION | -1 RED BLOOD CELLS ADENINE-SALINE ADDED | | | | LEUKOCYT | | + + + + | PRODUCT UNIT # | [id number] | | + + + + | UNIT ABO | O | | + + + + | UNIT RH | POS | | + + + + | STATUS OF UNIT | Presumed Transfused | | + + + + | EXPIRATION DATE | [id number] | | + + + + | BLOOD TYPE BARCODE | 5100 | | + + + + | BLOOD PRODUCT CODE | [id number] | | + + + + + + + | Specimen | Performing Laboratory | + + + | | [facility], TRANSFUSION MEDICINE [address] | | | [place] [address] | + + + CBC AND AUTO [...] | + + + | Blood | [facility], CORE [address] | | | [facility] [place] [address] | + + + CBC, WITH DIFFERENTIAL [...] | ------ CBC AND AUTO | | DIFF[[id number]] Abnormal Final | | result Please view [...] | + + + | Blood | [facility], [address]ORE [address] | | | [place] [address] | + + + + + | [...] | + + + | Blood | [facility], CORE [address] | | | [place] [address] | + + + URIC ACID, PLASMA (07/06/2017 11:03 PM) + +---------+ + | Component | Value | Ref Range | + +---------+ + | URIC ACID, PLASMA | 1.4 (L) | 2.5 - 6.2 mg/dL | | (LAB) | | | + +---------+ + + + + | Specimen | Performing Laboratory | + + + | Blood | [facility], CORE [address] | | | [facility] [address] | + + + PHOSPHORUS, PLASMA (07/06/2017 11:03 PM) + +-------+ + | Component | Value | Ref Range | + +-------+ + | PHOSPHORUS, PLASMA | 2.7 | 2.4 - 4.7 mg/dL | | (LAB) | | | + +-------+ + + + + | Specimen | Performing Laboratory | + + + | Blood | [facility], CORE [address] | | | [facility] [place] [address] | + + + MAGNESIUM, PLASMA (07/06/2017 11:03 PM) + +-------+ + | Component | Value | Ref Range | + +-------+ + | MAGNESIUM,PLASMA | 2.1 | 1.6 - 2.6 mg/dL | + +-------+ + + + + | Specimen | Performing Laboratory | + + + | Blood | [facility], [facility] [address] | | | [place] [address] | + + + + + | [...] | >60 | >60 mL/min | | [facility] | | | + + + + | EGFR NON | >60 | >60 mL/min | | -TURKMEN | | | + + + + [...] | + + + | Blood | [facility], [address] | | | [place] [address] | + + + + + | [...] [address] [address] | | | [place] [address] | + + + CAPILLARY BLOOD GLUCOSE (NO CHG), POC (07/06/2017 6:44 PM) + +---------+ + | Component | Value | Ref Range | + +---------+ + | BLOOD GLUCOSE, POC | 131 (H) | 70 - 99 mg/dL | + +---------+ + + + + | Specimen | Performing Laboratory | + + + | | [facility], POINT OF CARE TESTS [address] | | | [place] [address] | + + + CAPILLARY BLOOD GLUCOSE (NO CHG), POC (07/06/2017 12:50 PM) + +---------+ + | Component | Value | Ref Range | + +---------+ + | BLOOD GLUCOSE, POC | 150 (H) | 70 - 99 mg/dL | + +---------+ + + + + | Specimen | Performing Laboratory | + + + | | [facility] PO[facility]ARE TESTS [address] | | | [place] [address] | + + + CAPILLARY BLOOD GLUCOSE [...] [address] | | | [place] [address] | + + + PRODUCT - PLATELET PHERESIS LEUKOREDUCED (07/06/2017 12:47 AM) + + + + | Component | Value | Ref Range | + + + + | PRODUCT DESCRIPTION | APHERESIS | | | | PLATELETS,PAS,LEUKOREDUCED,IRRADIATED | | + + + + | PRODUCT UNIT # | [id number] | | + + + + | UNIT ABO | O | | + + + + | UNIT RH | POS | | + + + + | STATUS OF UNIT | Presumed Transfused | | + + + + | EXPIRATION DATE | [id number] | | + + + + | BLOOD TYPE BARCODE | 5100 | | + + + + | BLOOD PRODUCT CODE | [id number] | | + + + + + + + | Specimen | Performing Laboratory | + + + | | [facility], TRANSFUSION MEDICINE [address] [place] [address] | | | [place] [address] | + + + CBC AND AUTO [...] | + + + | Blood | [facility], CORE [address] | | | [place] [address] | + + + INR (07/05/2017 11:25 PM) + +-------+ + | Component | Value | Ref Range | + +-------+ + | INR | 1.09 | 0.90 - 1.20 INR | + +-------+ + + + + | Specimen | Performing Laboratory | + + + | Blood | [facility], CORE [address] | | | [place] [address] | + + + + + | [...] | + + + | Blood | [facility], CORE [address] [place] [address] | | | [facility] [place] [address] | + + + URIC ACID, PLASMA (07/05/2017 11:25 PM) + +---------+ + | Component | Value | Ref Range | + +---------+ + | URIC ACID, PLASMA | 2.0 (L) | 2.5 - 6.2 mg/dL | | (LAB) | | | + +---------+ + + + + | Specimen | Performing Laboratory | + + + | Blood | [facility], CORE [address] | | | [place] [address] | + + + PHOSPHORUS, PLASMA (07/05/2017 11:25 PM) + +-------+ + | Component | Value | Ref Range | + +-------+ + | PHOSPHORUS, PLASMA | 2.6 | 2.4 - 4.7 mg/dL | | (LAB) | | | + +-------+ + + + + | Specimen | Performing Laboratory | + + + | Blood | [facility], CORE [address] [place] [address] | | | [place] [address] | + + + MAGNESIUM, PLASMA (07/05/2017 11:25 PM) + +-------+ + | Component | Value | Ref Range | + +-------+ + | MAGNESIUM,PLASMA | 2.2 | 1.6 - 2.6 mg/dL | + +-------+ + + + + | Specimen | Performing Laboratory | + + + | Blood | [facility], CORE [address] | | | [place] [address] | + + + + + | [...] | ------ CBC AND AUTO | | DIFF[[id number]] Abnormal Final | | result Please view [...] | >60 | >60 mL/min | | TURKMEN | | | + + + + | EGFR NON | >60 | >60 mL/min | | -TURKMEN | | | + + + + [...] | + + + | Blood | [facility], [facility] [address] | | | [place] [address] | + + + + + | [...] Laboratory | + + + | | [facility] POINT OF CARE TESTS [address] | | | [place] [address] | + + + CAPILLARY BLOOD GLUCOSE (NO CHG), POC (07/05/2017 7:46 PM) + +---------+ + | Component | Value | Ref Range | + +---------+ + | BLOOD GLUCOSE, POC | 177 (H) | 70 - 99 mg/dL | + +---------+ + + + + | Specimen | Performing Laboratory | + + + | | [facility], POINT OF CARE TESTS [address] | | | [place] [address] | + + + CAPILLARY BLOOD GLUCOSE [...] [address] | | | [place] [address] | + + + CBC AND AUTO [...] | + + + | Blood | [facility], CORE [address] | | | [place] [address] | + + + LDH TOTAL, PLASMA [...] | + + + | Blood | [facility], CORE [address] [place] [address] | | | [place] [address] | + + + URIC ACID, PLASMA (07/05/2017 12:31 AM) + +---------+ + | Component | Value | Ref Range | + +---------+ + | URIC ACID, PLASMA | 2.3 (L) | 2.5 - 6.2 mg/dL | | (LAB) | | | + +---------+ + + + + | Specimen | Performing Laboratory | + + + | Blood | [facility], CORE [address] | | | [place] [address] | + + + PHOSPHORUS, PLASMA (07/05/2017 12:31 AM) + +-------+ + | Component | Value | Ref Range | + +-------+ + | PHOSPHORUS, PLASMA | 2.9 | 2.4 - 4.7 mg/dL | | (LAB) | | | + +-------+ + + + + | Specimen | Performing Laboratory | + + + | Blood | [facility], CORE [address] | | | [place] [address] | + + + MAGNESIUM, PLASMA (07/05/2017 12:31 AM) + +-------+ + | Component | Value | Ref Range | + +-------+ + | MAGNESIUM,PLASMA | 2.5 | 1.6 - 2.6 mg/dL | + +-------+ + + + + | Specimen | Performing Laboratory | + + + | Blood | [facility], CORE [address] | | | [facility] [place] [address] | + + + + + | [...] | ------ CBC AND AUTO | | DIFF[[id number]] Abnormal Final | | result Please view [...] | >60 | >60 mL/min | | TURKMEN | | | + + + + | EGFR NON | >60 | >60 mL/min | | -TURKMEN | | | + + + + [...] | + + + | Blood | [facility], [facility] [address] | | | [place] [address] | + + + + + | [...] | + + + | Blood | [facility], TRANSFUSION MEDICINE [address] [facility] | | | [place] [address] | + + + ABO & RH [...] | [facility], TRANSFUSION MEDICINE [address] [facility] | | | [place] [address] | + + + TYPE AND SCREEN [...] | ------ ABO & RH | | TYPE[[id number]] F | | inal result ANTIBODY | | SCREEN[[id number]] Fin | | al result Please view [...] + + | PRODUCT UNIT # | [id number] | | + + + + | UNIT ABO | O | | + + + + | UNIT RH | POS | | + + + + | STATUS OF UNIT | Presumed Transfused | | + + + + | EXPIRATION DATE | [id number] | | + + + + | BLOOD TYPE BARCODE | 5100 | | + + + + | BLOOD PRODUCT CODE | [id number] | | + + + + + + + | Specimen | Performing Laboratory | + + + | | [facility], TRANSFUSION MEDICINE [address] [facility] [address] | | | [place] [address] | + + + PRODUCT - RED CELLS LEUKOREDUCED (07/04/2017 4:07 AM) + + + + | Component | Value | Ref Range | + + + + | PRODUCT DESCRIPTION | -1 RED BLOOD CELLS ADENINE-SALINE ADDED | | | | LEUKOCYT | | + + + + | PRODUCT UNIT # | [id number] | | + + + + | UNIT ABO | O | | + + + + | UNIT RH | POS | | + + + + | STATUS OF UNIT | Presumed Transfused | | + + + + | EXPIRATION DATE | [id number] | | + + + + | BLOOD TYPE BARCODE | 5100 | | + + + + | BLOOD PRODUCT CODE | [id number] | | + + + + + + + | Specimen | Performing Laboratory | + + + | | [facility], TRANSFUSION MEDICINE [address] [facility] | | | [place] [address] | + + + RBC MORPHOLOGY (07/04/2017 12:40 AM) + + + + | Component | Value | Ref Range | + + + + | ANISOCYTOSIS | 2+(25-100cells/HPF) | | + + + + | MICROCYTOSIS | 2+(25-100cells/HPF) | | + + + + + + + | Specimen | Performing Laboratory | + + + | Blood | [facility], CORE [address] [facility] [address] | | | [place] [address] | + + + MANUAL DIFFERENTIAL (07/04/2017 [...] | + + + | Blood | [facility], CORE [address] | | | [place] [address] | + + + + + | [...] | + + + | Blood | [facility], CORE [address] | | | [place], [place] [address] | + + + LDH TOTAL, PLASMA [...] | + + + | Blood | [facility], CORE [address] [place] [address] | | | [place], [place] [address] | + + + URIC ACID, PLASMA (07/04/2017 12:40 AM) + +-------+ + | Component | Value | Ref Range | + +-------+ + | URIC ACID, PLASMA | 2.7 | 2.5 - 6.2 mg/dL | | (LAB) | | | + +-------+ + + + + | Specimen | Performing Laboratory | + + + | Blood | [facility], CORE [address] | | | [place] [address] | + + + PHOSPHORUS, PLASMA (07/04/2017 12:40 AM) + +-------+ + | Component | Value | Ref Range | + +-------+ + | PHOSPHORUS, PLASMA | 3.7 | 2.4 - 4.7 mg/dL | | (LAB) | | | + +-------+ + + + + | Specimen | Performing Laboratory | + + + | Blood | [facility], CORE [address] | | | [place] [address] | + + + MAGNESIUM, PLASMA (07/04/2017 12:40 AM) + +---------+ + | Component | Value | Ref Range | + +---------+ + | MAGNESIUM,PLASMA | 2.7 (H) | 1.6 - 2.6 mg/dL | + +---------+ + + + + | Specimen | Performing Laboratory | + + + | Blood | [facility], CORE [address] | | | [place] [address] | + + + + + | [...] | ------ CBC AND AUTO | | DIFF[[id number]] Abnormal Final | | result MANUAL | | DIFFERENTIAL[[id number]] Abnormal Final | | result RBC | | MORPHOLOGY[[id number]] | | Final result Please view results [...] | >60 | >60 mL/min | | TURKMEN | | | + + + + | EGFR NON | >60 | >60 mL/min | | -TURKMEN | | | + + + + [...] | + + + | Blood | [facility], [facility] [address] | | | [place] [address] | + + + + + | [...] | + + + | Blood | [facility], CORE [address] [address] | | | [place] [address] | + + + URIC ACID, PLASMA (07/03/2017 5:03 AM) + +-------+ + | Component | Value | Ref Range | + +-------+ + | URIC ACID, PLASMA | 2.9 | 2.5 - 6.2 mg/dL | | (LAB) | | | + +-------+ + + + + | Specimen | Performing Laboratory | + + + | Blood | [facility], [facility] [address] | | | [place] [address] | + + + PHOSPHORUS, PLASMA (07/03/2017 5:03 AM) + +-------+ + | Component | Value | Ref Range | + +-------+ + | PHOSPHORUS, PLASMA | 3.4 | 2.4 - 4.7 mg/dL | | (LAB) | | | + +-------+ + + + + | Specimen | Performing Laboratory | + + + | Blood | [facility], CORE [address] | | | [place] [address] | + + + CBC ONLY (07/03/2017 5:03 AM) + + + | Specimen | Performing Laboratory | + + + | Blood | | + + + + + | Narrative | + + | The following orders were created for panel order CBC ONLY. | | Procedure | | Abnormality Status | | --------- | | ------ CBC (HEMOGRAM) | | ONLY[[id number]] Abnormal Final | | result Please view [...] | >60 | >60 mL/min | | TURKMEN | | | + + + + | EGFR NON | >60 | >60 mL/min | | -TURKMEN | | | + + + + [...] | + + + | Blood | [facility], CORE [address] | | | [place] [address] | + + + + + | [...] | + + + | Blood | [facility], CORE [address] | | | [place] [address] | + + + + + | [...] + + | PRODUCT UNIT # | [id number] | | + + + + | UNIT ABO | O | | + + + + | UNIT RH | POS | | + + + + | STATUS OF UNIT | Presumed Transfused | | + + + + | EXPIRATION DATE | [id number] | | + + + + | BLOOD TYPE BARCODE | 5100 | | + + + + | BLOOD PRODUCT CODE | [id number] | | + + + + + + + | Specimen | Performing Laboratory | + + + | | [facility], TRANSFUSION MEDICINE [address] [facility] | | | [address] [place] [address] | + + + D-DIMER, (PE OR DIC) (07/02/2017 11:37 PM) + + + + | Component | Value | Ref Range | + + + + | D-DIMER (PE OR DIC) | >4.00 (H) | <0.50 ug/mLFEU | + + + + + + + | Specimen | Performing Laboratory | + + + | Blood | [facility], CORE [address] | | | [place] [address] | + + + + + | [...] | + + + | Blood | [facility], CORE [address] | | | [place] [address] | + + + MANUAL DIFFERENTIAL (07/02/2017 [...] | + + + | Blood | [facility], CORE [address] | | | [place] [address] | + + + + + | [...] | + + + | Blood | [facility], CORE [address] | | | [place] [address] | + + + URIC ACID, PLASMA (07/02/2017 11:36 PM) + +-------+ + | Component | Value | Ref Range | + +-------+ + | URIC ACID, PLASMA | 2.6 | 2.5 - 6.2 mg/dL | | (LAB) | | | + +-------+ + + + + | Specimen | Performing Laboratory | + + + | Blood | [facility], CORE [address] [place] [address] | | | [place] [address] | + + + PHOSPHORUS, PLASMA (07/02/2017 11:36 PM) + +-------+ + | Component | Value | Ref Range | + +-------+ + | PHOSPHORUS, PLASMA | 3.5 | 2.4 - 4.7 mg/dL | | (LAB) | | | + +-------+ + + + + | Specimen | Performing Laboratory | + + + | Blood | [facility], CORE [address] | | | [place] [address] | + + + LDH TOTAL, PLASMA [...] | + + + | Blood | [facility], CORE [address] | | | [place] [address] | + + + MAGNESIUM, PLASMA (07/02/2017 11:36 PM) + +---------+ + | Component | Value | Ref Range | + +---------+ + | MAGNESIUM,PLASMA | 2.8 (H) | 1.6 - 2.6 mg/dL | + +---------+ + + + + | Specimen | Performing Laboratory | + + + | Blood | [facility], CORE [address] | | | [place] [address] | + + + + + | [...] | ------ CBC AND AUTO | | DIFF[[id number]] Abnormal Final | | result MANUAL | | DIFFERENTIAL[[id number]] Abnormal Final | | result RBC | | MORPHOLOGY[[id number]] | | Final result Please view results [...] | >60 | >60 mL/min | | TURKMEN | | | + + + + | EGFR NON | >60 | >60 mL/min | | -TURKMEN | | | + + + + [...] | + + + | Blood | [facility], CORE [address] | | | [place] [address] | + + + + + | [...] | + + + | Blood | [facility], CORE [address] | | | [place] [address] | + + + + + | [...] | + + + | Blood | [facility], CORE [address] [place] [address] | | | [place] [address] | + + + URIC ACID, PLASMA (07/02/2017 6:39 PM) + +---------+ + | Component | Value | Ref Range | + +---------+ + | URIC ACID, PLASMA | 2.2 (L) | 2.5 - 6.2 mg/dL | | (LAB) | | | + +---------+ + + + + | Specimen | Performing Laboratory | + + + | Blood | [facility], CORE [address] [facility] | | | [place] [address] | + + + PHOSPHORUS, PLASMA (07/02/2017 6:39 PM) + +-------+ + | Component | Value | Ref Range | + +-------+ + | PHOSPHORUS, PLASMA | 3.4 | 2.4 - 4.7 mg/dL | | (LAB) | | | + +-------+ + + + + | Specimen | Performing Laboratory | + + + | Blood | [facility], CORE [address] | | | [place] [address] | + + + CBC ONLY (07/02/2017 6:39 PM) + + + | Specimen | Performing Laboratory | + + + | Blood | | + + + + + | Narrative | + + | The following orders were created for panel order CBC ONLY. | | Procedure | | Abnormality Status | | --------- | | ------ CBC (HEMOGRAM) | | ONLY[[id number]] Abnormal Final | | result Please view [...] | >60 | >60 mL/min | | TURKMEN | | | + + + + | EGFR NON | >60 | >60 mL/min | | -TURKMEN | | | + + + + [...] | + + + | Blood | [facility], CORE [address] | | | [place] [address] | + + + + + | [...] | + + + | Blood | [facility], CORE [address] | | | [place] [address] | + + + + + | [...] | + + + | Blood | [facility], CORE [address] | | | [place] [address] | + + + URIC ACID, PLASMA (07/02/2017 12:38 PM) + +-------+ + | Component | Value | Ref Range | + +-------+ + | URIC ACID, PLASMA | 3.0 | 2.5 - 6.2 mg/dL | | (LAB) | | | + +-------+ + + + + | Specimen | Performing Laboratory | + + + | Blood | [facility], CORE [address] [place] [address] | | | [place] [address] | + + + PHOSPHORUS, PLASMA (07/02/2017 12:38 PM) + +-------+ + | Component | Value | Ref Range | + +-------+ + | PHOSPHORUS, PLASMA | 3.8 | 2.4 - 4.7 mg/dL | | (LAB) | | | + +-------+ + + + + | Specimen | Performing Laboratory | + + + | Blood | [facility], CORE [address] [place] [address] | | | [place], [place] [address] | + + + CBC ONLY (07/02/2017 12:38 PM) + + + | Specimen | Performing Laboratory | + + + | Blood | | + + + + + | Narrative | + + | The following orders were created for panel order CBC ONLY. | | Procedure | | Abnormality Status | | --------- | | ------ CBC (HEMOGRAM) | | ONLY[[id number]] Abnormal Final | | result Please view [...] | >60 | >60 mL/min | | TURKMEN | | | + + + + | EGFR NON | >60 | >60 mL/min | | -TURKMEN | | | + + + + [...] | + + + | Blood | [facility], CORE [address] | | | [place] [address] | + + + + + | [...] | + + + | Blood | [facility], CORE [address] [facility] [address] | | | [place] [address] | + + + D-DIMER, (PE OR DIC) (07/02/2017 12:38 PM) + + + + | Component | Value | Ref Range | + + + + | D-DIMER (PE OR DIC) | >4.00 (H) | <0.50 ug/mLFEU | + + + + + + + | Specimen | Performing Laboratory | + + + | Blood | [facility], CORE [address] | | | [place] [address] | + + + + + | [...] | + + + | Blood | [facility], CORE [address] [place] [address] | | | [place] [address] | + + + + + | [...] + + | PRODUCT UNIT # | [id number] | | + + + + | UNIT ABO | O | | + + + + | UNIT RH | POS | | + + + + | STATUS OF UNIT | Returned to Blood Bank | | + + + + | EXPIRATION DATE | [id number] | | + + + + | BLOOD TYPE BARCODE | 5100 | | + + + + | BLOOD PRODUCT CODE | [id number] | | + + + + + + + | Specimen | Performing Laboratory | + + + | | [facility], TRANSFUSION MEDICINE [address] [facility] | | | [place] [address] | + + + PRODUCT - PLATELET PHERESIS LEUKOREDUCED (07/02/2017 7:08 AM) + + + + | Component | Value | Ref Range | + + + + | PRODUCT DESCRIPTION | PLATELETS PHERESIS, LEUKOCYTE REDUCED, | | | | IRRADIATED | | + + + + | PRODUCT UNIT # | [id number] | | + + + + | UNIT ABO | A | | + + + + | UNIT RH | NEG | | + + + + | STATUS OF UNIT | Presumed Transfused | | + + + + | EXPIRATION DATE | [id number] | | + + + + | BLOOD TYPE BARCODE | 0600 | | + + + + | BLOOD PRODUCT CODE | [id number] | | + + + + + + + | Specimen | Performing Laboratory | + + + | | [facility], TRANSFUSION MEDICINE [address] [facility] | | | [place] [address] | + + + CBC (HEMOGRAM) ONLY [...] | + + + | Blood | [facility], CORE [address] | | | [place] [address] | + + + D-DIMER, (PE OR DIC) (07/02/2017 6:26 AM) + + + + | Component | Value | Ref Range | + + + + | D-DIMER (PE OR DIC) | >4.00 (H) | <0.50 ug/mLFEU | + + + + + + + | Specimen | Performing Laboratory | + + + | Blood | [facility], CORE [address] [facility] [address] | | | [place] [address] | + + + + + | [...] | | ------ CBC (HEMOGRAM) | | ONLY[[id number]] Abnormal Final | | result Please view [...] | + + + | Blood | [facility], [facility] [address] [facility] [address] | | | [place] [address] | + + + + + | [...] | + + + | Blood | [facility], CORE [address] | | | [place] [address] | + + + URIC ACID, PLASMA (07/02/2017 6:26 AM) + +-------+ + | Component | Value | Ref Range | + +-------+ + | URIC ACID, PLASMA | 3.4 | 2.5 - 6.2 mg/dL | | (LAB) | | | + +-------+ + + + + | Specimen | Performing Laboratory | + + + | Blood | [facility], CORE [address] | | | [place] [address] | + + + BASIC METABOLIC SET [...] | >60 | >60 mL/min | | [facility] | | | + + + + | EGFR NON | >60 | >60 mL/min | | -[facility] | | | + + + + [...] | + + + | Blood | [facility], [address] | | | [place] [address] | + + + + + | [...] | + + + | Blood | [facility], [address] | | | [place] [address] | + + + MANUAL DIFFERENTIAL (07/01/2017 [...] | + + + | Blood | [facility], [address] [facility] [address] [address] | | | [place] [address] | + + + + + | [...] | + + + | Blood | [facility], [address]ORE [address] [place] [address] | | | [place] [address] | + + + URIC ACID, PLASMA (07/01/2017 11:18 PM) + +---------+ + | Component | Value | Ref Range | + +---------+ + | URIC ACID, PLASMA | 2.0 (L) | 2.5 - 6.2 mg/dL | | (LAB) | | | + +---------+ + + + + | Specimen | Performing Laboratory | + + + | Blood | [facility], [address] | | | [place] [address] | + + + PHOSPHORUS, PLASMA (07/01/2017 11:18 PM) + +-------+ + | Component | Value | Ref Range | + +-------+ + | PHOSPHORUS, PLASMA | 3.5 | 2.4 - 4.7 mg/dL | | (LAB) | | | + +-------+ + + + + | Specimen | Performing Laboratory | + + + | Blood | [facility], [address] | | | [place] [address] | + + + LDH TOTAL, PLASMA [...] | + + + | Blood | [facility], [address]ORE [address] [place] [address] | | | [place] [address] | + + + MAGNESIUM, PLASMA (07/01/2017 11:18 PM) + +---------+ + | Component | Value | Ref Range | + +---------+ + | MAGNESIUM,PLASMA | 2.8 (H) | 1.6 - 2.6 mg/dL | + +---------+ + + + + | Specimen | Performing Laboratory | + + + | Blood | [facility], [address]ORE [address] | | | [place] [address] | + + + + + | [...] | ------ CBC AND AUTO | | DIFF[[id number]] Abnormal Final | | result MANUAL | | DIFFERENTIAL[[id number]] Abnormal Final | | result RBC | | MORPHOLOGY[[id number]] | | Final result Please view results [...] | >60 | >60 mL/min | | [facility] | | | + + + + | EGFR NON | >60 | >60 mL/min | | -[facility] | | | + + + + [...] | + + + | Blood | [facility], [place] [address] | | | [place] [address] | + + + + + | [...] | + + + | Blood | [facility], [address] | | | [place] [address] | + + + CBC ONLY (07/01/2017 6:19 PM) + + + | Specimen | Performing Laboratory | + + + | Blood | | + + + + + | Narrative | + + | The following orders were created for panel order CBC ONLY. | | Procedure | | Abnormality Status | | --------- | | ------ CBC (HEMOGRAM) | | ONLY[[id number]] Abnormal Final | | result Please view [...] | + + + | Blood | [facility], [address] | | | [place] [address] | + + + + + | [...] | + + + | Blood | [facility], [address]ORE [address] [place] [address] | | | [place] [address] | + + + URIC ACID, PLASMA (07/01/2017 6:19 PM) + +---------+ + | Component | Value | Ref Range | + +---------+ + | URIC ACID, PLASMA | 1.1 (L) | 2.5 - 6.2 mg/dL | | (LAB) | | | + +---------+ + + + + | Specimen | Performing Laboratory | + + + | Blood | [facility], [address] [address] | | | [place] [address] | + + + BASIC METABOLIC SET [...] | >60 | >60 mL/min | | TURKMEN | | | + + + + | EGFR NON | >60 | >60 mL/min | | -TURKMEN | | | + + + + [...] | + + + | Blood | [facility], CORE [address] | | | [place] [address] | + + + + + | [...] + + + + | URINE CULTURE [facility] | No growth (<1000 cfu/mL) after 24 hours | | + + + + + + + | Specimen | Performing Laboratory | + + + | Urine | [facility], CORE [address] | | | [place] [address] | + + + URINE SCREEN FOR CULTURE (07/01/2017 4:13 PM) + + + + | Component | Value | Ref Range | + + + + | CULT, URINE SCREEN | Positive (A) | Negative | + + + + + + + | Specimen | Performing Laboratory | + + + | Urine | [facility], [facility] [address] | | | [place] [address] | + + + + + | [...] | + + + | Urine | [facility], CORE [address] | | | [place] [address] | + + + RAYMOND PRESLEY ONLY [...] + | SPECIFIC GRAVITY | 1.021Comment: Specific [place] performed by | 1.005 - 1.030 | | | refractometry | | + + + + + + + | Specimen | Performing Laboratory | + + + | Urine | [facility], [facility] [address] | | | [place] [address] | + + + CULTURE, BLOOD BACTI [...] + + | Blood - Peripheral | [facility], CORE [address] | | | [place] [address] | + + + CULTURE, BLOOD BACTI [...] ------ CULTURE, BLOOD | | BACTI & Y...[[id number]] Final | | result Please view results [...] | + + + | Blood | [facility], CORE [address] | | | [place] [address] | + + + D-DIMER, (PE OR DIC) (07/01/2017 12:30 PM) + + + + | Component | Value | Ref Range | + + + + | D-DIMER (PE OR DIC) | 3.25 (H) | <0.50 ug/mLFEU | + + + + + + + | Specimen | Performing Laboratory | + + + | Blood | [facility], [facility] [address] | | | [place] [address] | + + + + + | [...] | | ------ CBC (HEMOGRAM) | | ONLY[[id number]] Abnormal Final | | result Please view [...] | + + + | Blood | [facility], CORE [address] [facility] [address] | | | [place] [address] | + + + + + | [...] | + + + | Blood | [facility], CORE [address] | | | [place] [address] | + + + BASIC METABOLIC SET [...] | >60 | >60 mL/min | | TURKMEN | | | + + + + | EGFR NON | >60 | >60 mL/min | | -TURKMEN | | | + + + + [...] | + + + | Blood | [facility], CORE [address] | | | [place] [address] | + + + + + | [...] | + + + | Blood | [facility], CORE [address] | | | [place] [address] | + + + URIC ACID, PLASMA (07/01/2017 12:30 PM) + +---------+ + | Component | Value | Ref Range | + +---------+ + | URIC ACID, PLASMA | 1.2 (L) | 2.5 - 6.2 mg/dL | | (LAB) | | | + +---------+ + + + + | Specimen | Performing Laboratory | + + + | Blood | [facility], CORE [address] | | | [place] [address] | + + + RBC MORPHOLOGY (06/30/2017 11:00 PM) + + + + | Component | Value | Ref Range | + + + + | ANISOCYTOSIS | 1+(10-25cells/HPF) | | + + + + + + + | Specimen | Performing Laboratory | + + + | Blood | [facility], CORE [address] | | | [place] [address] | + + + MANUAL DIFFERENTIAL (06/30/2017 [...] | + + + | Blood | [facility], CORE [address] | | | [place] [address] | + + + + + | [...] | + + + | Blood | [facility], CORE [address] [place] [address] | | | [place] [address] | + + + COAGULOPATHY PANEL (INR,APTT,FIBRINOGEN) [...] | + + + | Blood | [facility], CORE [address] | | | [place] [address] | + + + + + | [...] | + + + | Blood | [facility], CORE [address] | | | [place] [address] | + + + LDH TOTAL, PLASMA [...] | + + + | Blood | [facility], CORE [address] [place] [address] RD | | | [place] [address] | + + + URIC ACID, PLASMA (06/30/2017 11:00 PM) + +---------+ + | Component | Value | Ref Range | + +---------+ + | URIC ACID, PLASMA | 1.4 (L) | 2.5 - 6.2 mg/dL | | (LAB) | | | + +---------+ + + + + | Specimen | Performing Laboratory | + + + | Blood | [facility], CORE [address] | | | [place] [address] | + + + MAGNESIUM, PLASMA (06/30/2017 11:00 PM) + +-------+ + | Component | Value | Ref Range | + +-------+ + | MAGNESIUM,PLASMA | 2.3 | 1.6 - 2.6 mg/dL | + +-------+ + + + + | Specimen | Performing Laboratory | + + + | Blood | [facility], CORE [address] | | | [place] [address] | + + + + + | [...] | ------ CBC AND AUTO | | DIFF[[id number]] Abnormal Final | | result MANUAL | | DIFFERENTIAL[[id number]] Abnormal Final | | result RBC | | MORPHOLOGY[[id number]] | | Final result Please view results [...] | >60 | >60 mL/min | | TURKMEN | | | + + + + | EGFR NON | >60 | >60 mL/min | | -TURKMEN | | | + + + + [...] | + + + | Blood | [facility], CORE [address] | | | [place] [address] | + + + + + | [...] | + + + | Blood | [facility], CORE [address] | | | [place] [address] | + + + MANUAL DIFFERENTIAL (06/30/2017 [...] | + + + | Blood | [facility], CORE [address] | | | [place] [address] | + + + + + | [...] | + + + | Blood | [facility], CORE [address] | | | [place] [address] | + + + CBC, WITH DIFFERENTIAL [...] | ------ CBC AND AUTO | | DIFF[[id number]] Abnormal Final | | result MANUAL | | DIFFERENTIAL[[id number]] Abnormal Final | | result RBC | | MORPHOLOGY[[id number]] | | Final result Please view results [...] + + | Swab - Rectum | [facility], CORE [address] [facility] | | | [place] [address] | + + + PHOSPHORUS, PLASMA (06/30/2017 11:36 AM) + +-------+ + | Component | Value | Ref Range | + +-------+ + | PHOSPHORUS, PLASMA | 2.4 | 2.4 - 4.7 mg/dL | | (LAB) | | | + +-------+ + + + + | Specimen | Performing Laboratory | + + + | Blood | [facility], CORE [address] | | | [place] [address] | + + + BASIC METABOLIC SET [...] | >60 | >60 mL/min | | TURKMEN | | | + + + + | EGFR NON | >60 | >60 mL/min | | -TURKMEN | | | + + + + [...] | + + + | Blood | [facility], CORE [address] | | | [place] [address] | + + + + + | [...] | + + + | Blood | [facility], CORE [address] [place] [address] | | | [place] [address] | + + + URIC ACID, PLASMA (06/30/2017 11:36 AM) + +---------+ + | Component | Value | Ref Range | + +---------+ + | URIC ACID, PLASMA | 1.7 (L) | 2.5 - 6.2 mg/dL | | (LAB) | | | + +---------+ + + + + | Specimen | Performing Laboratory | + + + | Blood | [facility], CORE [address] | | | [place] [address] | + + + FLT3 ITD, BLOOD [...] clinical trial | | | | (CALGB [id number]) has led to the FDA approval | | | | in July 2016 of the multitargeted kinase | | | | inhibitor midostaurin for the treatment of | | | | adult patients with newly diagnosed AML | | | | harboring either the FLT3-ITD or FLT3-TKD | | | | mutations (Shade Prado, Blood, 2017, | | | | 129:3901-5232). The quantitative reporting | | | | [...] | | | characteristics determined by the [facility] | | | | Dorsey [...] 1988 | | | | (CLIA). The [facility] | | | | Laboratories are fully licensed by the | | | | [facility] under CLIA and are | | | | accredited by the [employer] | | | | Path[employer] (CAP). Laboratory | | | | Director: Edy Vang M.D., | | | | Ph.D Reviewed and electronically signed | | | | by DEANGELO JOLLY MD,PhD3/12/2017 12:00 | | | | PM | | + + + + + + + | Specimen | Performing Laboratory | + + + | Blood | [facility] [address] | | [address] [place] [address] | + + + COMPREHENSIVE HEME PANEL [...] Sequencing Specimen ID: | | | | [id number] Type: BloodCollection | | | | Date: [...] | | bpVariant: | | | | p.V553rkxsrqNPEBKWDAZHUDOIXFrxemjt allele | | | | frequency (VAF): 71%Allelic ratio = 23FLT3 | | | | (VLTR44734.1):c.1782_1783insGTGACCGGCTCCTCA | | | | GATAATGAGTACTTCTACGTTGATTTC; | | | | chr13:00970308P>TGAAATCAACGTAGAAGTACTCATTAT | | | | CTGAGGAGCCGGTCACLast Observed: 04/04/2017; [...] | | | (Shade Prado, Blood, 2017, 129:7280-4075). | | | | The FLT3 kinase is also specific target of | | | | several other tyrosine kinase inhibitors | | | | that may be recruiting patients for | | | | clinical trials (including quizartinib, | | | | lestaurtinib, midostaurin, sorefenib, | | | | sunitinib, ponatinib, etc Gene: | | | | NEY6Amedhfd: p.W288fs*12Variant allele | | | | frequency (VAF): 51%Variant ID: | | | | [id number]; [id number] | | | | (JDDC1538.1):c.859_860insTCTG; | | | | chr5:069289291K>CTCTGLast Observed: | | | | 04/04/2017; Allele frequency: 0%03/03/2017; | | | | Allele frequency: 44%03/14/2016; Allele | | | | frequency: 0%02/15/2016; Allele frequency: | | | | 46% Gene: ZULD2IRukwfku: p.S044XEwrtvne | | | | allele frequency (VAF): 48%Variant ID: | | | | [id number]; [id number], [id number] | | | | (AMQH62858.1):c.2644C>T; | | | | chr2:65615669Z>ALast Observed: 04/04/2017; | | | | Allele frequency: 19%03/03/2017; Allele | | | | frequency: 46%03/14/2016; Allele frequency: | | | | 14%02/15/2016; Allele frequency: 45% | | | | Variant(s) of Potential Clinical | | | | Significance (Tier II) Gene: VJ0Nzwgtvy: | | | | p.V362fs*69 (not detected in prior | | | | samples)Variant allele frequency (VAF): | | | | 41%Variant ID: WT1 | | | | (ZMSX60920.1):c.1083_1088TGTACG>GA; | | | | chr11:11684752HZJRZLK>CTC The WT1 gene | | | | encodes a zinc-finger merchant mariner factor | | | | that plays [...] | | | 116(5):788-92, 2009; Gilda, Blood 115:57297, | | | | 2009). Case reviewed [...] | | | | | | | genes:PGJ9KCUKMWPEDXQEXVZ9IDVY5NKPQQ2XSN9HM | | | | OZ4MFT45PWDEHR9UAYP9UHC8MGD0LDQNKZOGWEHNZ13 | | | | IODDF3PKNMA8OJTHLDCW9TYGX7VTIX74 | | | | Chromatin-modifying | | | | genes:BAUJ6MWUXZTIV780TXN8GVN7WICLBFZF22 | | | | DNA methylation-associated | | | | genes:RGZT0YTKJ1YIR4LDR2 Filler Blender | | | | factors:TXWPHIX9NDQEXQMLWWNKGJE2PBRZ1SIXO7Z | | | | KJD5WS1RXOZ8BTR7FFHD2BVCGVSZ7LNAY0VIZB2CLW1 | | | | Spliceosome-complex | | | | genes:TUUF0HK9C9J4LR3DCAZ2 Cohesion-complex | | | | genes:QUZ1QCRA5TQON5UPI72 Tumor suppressor | | | | genes:IU14HH9VLU3 and | | | | others:UJI4OEEM9XASW71LL45ETZD7ZTABQ2KGQTFV | | | | TIR3FFSMVU1HJTYIQ56QOCLI5 All the coding | | | | [...] multiplexed PCR (customized | | | | [employer] targeted DNA panel with molecular | | | | barcodes) and sequencing on an Illumina | | | | platform (Apptimate). Sequencing data is | | | | [...] classification: Blood. 2016; | | | | 127(20):2370-607. 7.Catalogue Of Somatic | | | | Mutations In Cancer: | | | | http://cancer.julia.ac.uk/cosmic8.ClinVar: | | | | | | | | https://www.ncbi.nlm.nih.gov/clinvar/9.SHIRLEY- | | | | Clinical Knowledgebase (CKB): | | | | https://ckb.My Mega Bookstore.org/10.CIViC: | | | | https://civicdb.org/home | | + + + + | DISCLAIMER | This test was developed and its performance | | | | characteristics determined by the [facility] | | | | [facility]. It has | | | [...] 1988 | | | | (CLIA). The [facility] | | | | Laboratories are fully licensed by the | | | | state of [place] under CLIA and are | | | | accredited by the [employer] | | | | Pathologists (CAP). Laboratory | | | | Director: Edy Vang M.D., | | | | Ph.D Reviewed and electronically signed | | | | by DEANGELO JOLLY MD,PhD3 4:49 | | | | PM | | + + + + + + + | Specimen | Performing Laboratory | + + + | Blood | [facility] [address] | | [address] [place] [address] | + + + LEUKEMIA/LYMPHOMA MARKER - [...] MANUAL DIFFERENTIAL | | | | Order: [id number] - Part of Panel Order | | | | [id number] Collected: 06/29/2017 23:01 | | | | [...] characteristics | | | | determined by [facility] [employer]. It has | | | | not [...] | + + + | Blood | [facility] OF PATHOLOGY [address] | | | [place] [address] | + + + PRODUCT - PLATELET PHERESIS LEUKOREDUCED (06/30/2017 12:33 AM) + + + + | Component | Value | Ref Range | + + + + | PRODUCT DESCRIPTION | PLATELETS PHERESIS, LEUKOCYTE REDUCED, | | | | IRRADIATED | | + + + + | PRODUCT UNIT # | [id number] | | + + + + | UNIT ABO | O | | + + + + | UNIT RH | POS | | + + + + | STATUS OF UNIT | Presumed Transfused | | + + + + | EXPIRATION DATE | [id number] | | + + + + | BLOOD TYPE BARCODE | 5100 | | + + + + | BLOOD PRODUCT CODE | [id number] | | + + + + + + + | Specimen | Performing Laboratory | + + + | | [facility], TRANSFUSION MEDICINE [address] [facility] [address] | | | [place] [address] | + + + ANTIBODY SCREEN (06/30/2017 12:33 AM) + + + + | Component | Value | Ref Range | + + + + | Antibody Screen | Negative | | + + + + + + + | Specimen | Performing Laboratory | + + + | Blood | [facility], TRANSFUSION MEDICINE [address] [facility] [address] | | | [place] [address] | + + + ABO & RH [...] | + + + | Blood | [facility], TRANSFUSION MEDICINE [address] [facility] | | | [place] [address] | + + + TYPE AND SCREEN [...] | ------ ABO & RH | | TYPE[[id number]] F | | inal result ANTIBODY | | SCREEN[[id number]] Fin | | al result Please view [...] | + + + | Blood | [facility], CORE [address] | | | [place] [address] | + + + + + | [...] | + + + | Blood | [facility], CORE [address] [place] [address] | | | [place] [address] | + + + PHOSPHORUS, PLASMA (06/29/2017 11:01 PM) + +-------+ + | Component | Value | Ref Range | + +-------+ + | PHOSPHORUS, PLASMA | 2.6 | 2.4 - 4.7 mg/dL | | (LAB) | | | + +-------+ + + + + | Specimen | Performing Laboratory | + + + | Blood | [facility], CORE [address] [facility] | | | [place] [address] | + + + LDH TOTAL, PLASMA [...] | + + + | Blood | [facility], CORE [address] [facility] | | | [place] [address] | + + + URIC ACID, PLASMA (06/29/2017 11:01 PM) + +-------+ + | Component | Value | Ref Range | + +-------+ + | URIC ACID, PLASMA | 3.0 | 2.5 - 6.2 mg/dL | | (LAB) | | | + +-------+ + + + + | Specimen | Performing Laboratory | + + + | Blood | [facility], CORE [address] | | | [place] [address] | + + + MAGNESIUM, PLASMA (06/29/2017 11:01 PM) + +-------+ + | Component | Value | Ref Range | + +-------+ + | MAGNESIUM,PLASMA | 2.4 | 1.6 - 2.6 mg/dL | + +-------+ + + + + | Specimen | Performing Laboratory | + + + | Blood | [facility], CORE [address] | | | [place] [address] | + + + + + | [...] | ------ CBC AND AUTO | | DIFF[[id number]] Abnormal Final | | result MANUAL | | DIFFERENTIAL[[id number]] Abnormal Final | | result Please view [...] | >60 | >60 mL/min | | TURKMEN | | | + + + + | EGFR NON | >60 | >60 mL/min | | -TURKMEN | | | + + + + [...] | + + + | Blood | [facility], [facility] [address] | | | [place] [address] | + + + + + | [...] + + | Blood - Antecubital | [facility], CORE [address] | | - right | [facility] [address] | + + + CULTURE, BLOOD BACTI [...] ------ CULTURE, BLOOD | | BACTI & Y...[[id number]] Final | | result Please view results [...] + | Blood - Red port | [facility], CORE [address] | | lumen | [place] [address] | + + + CULTURE, BLOOD BACTI [...] ------ CULTURE, BLOOD | | BACTI & Y...[[id number]] Final | | result Please view results [...] + | | [facility] [address] [place] [address] | | | [place] [address] | + + + + + | Narrative | + + | [facility] Adult Echocardiography [facility] | | [address] [place] [id number] Ph: | | Pt Name: RHEA HUTCHISON Study | | Date/Time 06/29/2017 / 3:49:49 PM | | Most recent prior: 03/04/2017 Acc #: [id number] No. previous | | echos: 2 : 1965 51 years Heart Rate: 107 bpm | | Height: 62.0 in Blood Pressure: 140/77 mm/Hg | | Weight: 199.0 lb Gender: F | | BSA: 1.91 m2 Order ID: [id number] | | Signals Intelligence Analysis Manager: Nathaniel BRANTLEY Referring Provider: Sarah Katz Patient [...] values Report electronically | | signed by: [id number] Hector Khoury MD (06/29/2017, 6:21:10 PM) Final | + + + + | Procedure Note | + + | Interface, Ecg Results - 06/29/2017 6:21 PM [facility] | | [facility] Echocardiography Laboratory [address] [place] [address] | | [place], [place] [address] Pt Name: RHEA HUTCHISON | | Study Date/Time 06/29/2017 / 3:49:49 PMMRN: [id number] Most | | recent prior: 03/04/2017Acc #: [id number] No. previous echos: 2DOB: | | 1965 51 years Heart Rate: 107 bpmHeight: 62.0 in Blood | | Pressure: 140/77 mm/HgWeight: 199.0 lb Gender: FBSA: | | 1.91 m2 Order ID: [id number] Signals Intelligence Analysis Manager: Nathaniel Steele [facility] | | Provider: Sarah KatzPatient Location: 14KModalities [...] Ao 3.20 16.8 | | (prox) cm mm/q7Pfyfcgdyoe of chamber size and | | geometry is accomplished through the incorporation of linear, volumetric, and indexed | | values Report electronically signed by: [id number] Hector Khoury MD (06/29/2017, 6:21:10 | | [...] | | | |Report electronically signed by: [id number] Hector Khoury MD (06/29/2017, 6:21:10 PM) | | | | | | | | Final | + + CT ABDOMEN AND PELVIS W IV CONTRAST (06/29/2017 2:58 PM) + + + | Specimen | Performing Laboratory | + + + | | [facility] VOICE RECOGNITION | + [...] | + + + | Blood | [facility], [facility] [address] | | | [place] [address] | + + + BASIC METABOLIC SET [...] | >60 | >60 mL/min | | TURKMEN | | | + + + + | EGFR NON | >60 | >60 mL/min | | -TURKMEN | | | + + + + [...] | + + + | Blood | [facility], CORE [address] | | | [place] [address] | + + + + + | [...] | + + + | Blood | [facility], CORE [address] [place] [address] | | | [facility] [place] [address] | + + + URIC ACID, PLASMA (06/29/2017 2:31 PM) + +-------+ + | Component | Value | Ref Range | + +-------+ + | URIC ACID, PLASMA | 3.7 | 2.5 - 6.2 mg/dL | | (LAB) | | | + +-------+ + + + + | Specimen | Performing Laboratory | + + + | Blood | [facility], CORE [address] | | | [place] [address] | + + + RESPIRATORY PATHOGEN PANEL [...] + + | Washing - Nasal | [facility], CORE [address] [place] [address] | | | [place] [address] | + + + 12 LEAD ECG [...] Laboratory | + + + | | [facility] [address] [place] [address] | | | [place] [address] | + + + X-RAY PORTABLE CHEST TUBE OR CATH EVAL X-RAY (06/29/2017 8:20 AM) + + + | Specimen | Performing Laboratory | + + + | | [facility] VOICE RECOGNITION | + + + + + | Narrative | + + | EXAM: CA CHEST TUBE OR CATH EVAL X-RAY 06/29/17 [...] Interface - 06/29/2017 11:21 AM PST EXAM: CA CHEST | | TUBE OR CATH EVAL [...] | + + + | Blood | [facility], CORE [address] [place] [address] | | | [place] [address] | + + + MANUAL DIFFERENTIAL (06/28/2017 [...] | + + + | Blood | [facility], CORE [address] | | | [place] [address] | + + + + + | [...] | + + + | Blood | [facility], CORE [address] [place] [address] | | | [place] [address] | + + + CBC, WITH DIFFERENTIAL [...] | ------ CBC AND AUTO | | DIFF[[id number]] Abnormal Final | | result MANUAL | | DIFFERENTIAL[[id number]] Abnormal Final | | result RBC | | MORPHOLOGY[[id number]] | | Final result Please view results [...] | + + + | Blood | [facility], CORE [address] | | | [place] [address] | + + + BILIRUBIN DIRECT (06/28/2017 [...] | + + + | Blood | [facility], [address] | | | [place] [address] | + + + URIC ACID, PLASMA (06/28/2017 10:30 PM) + +-------+ + | Component | Value | Ref Range | + +-------+ + | URIC ACID, PLASMA | 4.7 | 2.5 - 6.2 mg/dL | | (LAB) | | | + +-------+ + + + + | Specimen | Performing Laboratory | + + + | Blood | [facility], [address] | | | [place] [address] | + + + PHOSPHORUS, PLASMA (06/28/2017 10:30 PM) + +-------+ + | Component | Value | Ref Range | + +-------+ + | PHOSPHORUS, PLASMA | 3.6 | 2.4 - 4.7 mg/dL | | (LAB) | | | + +-------+ + + + + | Specimen | Performing Laboratory | + + + | Blood | [facility], [address] | | | [place] [address] | + + + MAGNESIUM, PLASMA (06/28/2017 10:30 PM) + +-------+ + | Component | Value | Ref Range | + +-------+ + | MAGNESIUM,PLASMA | 2.6 | 1.6 - 2.6 mg/dL | + +-------+ + + + + | Specimen | Performing Laboratory | + + + | Blood | [facility], [address] | | | [place] [address] | + + + + + | [...] | >60 | >60 mL/min | | [facility] | | | + +---------+ + | EGFR NON | >60 | >60 mL/min | | -[facility] | | | + +---------+ + | [...] | + + + | Blood | [facility], [address] | | | [place] [address] | + + + + + | [...] | | | | | | Until [facility] 08/08/17 at 1835, per | | [...] | | | | | | Until [facility] 08/08/17 at 1835, | | | [...] Sat07/05/17 at 0758, | | | Until [facility] 08/08/17 at 1835, [facility]G | | | less than 70 mg/dL if patient | | | unable to take PO, per Adult | | | Hypoglycemia Protocol | | + +---+ | | | + +---+ + +-------+ +-------+---+---+ | | Given | | 10 mL | | | | [id number] | | 8 06:43 | | | [...] 13:21 | | | | | dose, [facility] 08/04/17 at 1100 | | PDT | | | | + +-------+ +-------+---+---+ +---+---+ | | | +---+---+ + +-------+ +-------+---+---+ | furosemide (LASIX) injection 20 | Given | 08/05/2017 | 20 mg | | | | mg 20 mg, intravenous, ONCE, 1 | | 11:32 | | | | | dose, [facility] 08/05/17 at 1130 | | PDT | | | | + +-------+ +-------+---+---+ +---+---+ | | | +---+---+ + +-------+ +-------+---+---+ | furosemide (LASIX) injection 40 | Given | | 40 mg | | | | mg 40 mg, intravenous, ONCE, 1 | | 8 15:58 | | | | | dose, [facility] 08/06/17 at 1530 | | PDT | | | | + +-------+ +-------+---+---+ + +---+ | | | + +---+ | glucagon (GLUCAGEN) injection 1 | | | mg 1 mg, intramuscular, | | | NEEDED, Starting Sat07/05/17 at | | | 0758, Until [facility] 08/08/17 at 1835, | | | [...] | | | 07/02/17 at 1057, Until [facility] 08/08/17 | | | at 1835, [...] 07:36 | | | | | dose, [place] 07/07/17 at 2245 | | PDT | [...] | | | | | 1015, Until [facility] 08/08/17 at 1835, | | | [...] | | | | | 0010, Until [facility] 08/08/17 at 1835, | | | [...] PDT | | | | | Until [facility] 08/08/17 at 1835, | | | [...] 08/02/17 at 0531, | | | Until [facility] 08/08/17 at 1835, | | | [...] 07/06/17 at 1100, | | | Until [facility] 08/08/17 at 1835, | | | [...] | | | 07/02/17 at 1508, Until [facility] | | | | | | [...] | mL/hr | | | CONTINUOUS, Starting [facility] 08/01/17 | | PDT | | | | | at 0815, Until [facility] 08/01/17 at 1456 | | | | | | + +---------+ +-------+-------+---+ +---+---+ | | | +---+---+ + +---------+ + +---+---+ | sodium chloride 0.9% IV | New Bag | 08/01/2017 | 1,000 mL | | | | infusion 1,000 mL, intravenous, | | 23:10 | | | | | NEEDED, Starting [facility] 08/01/17 at | | PDT | | | | | 1455, Until [facility] 08/04/17 at 1216, | | | | [...] PDT | | | | | Until [facility] 08/08/17 at 1835, | | | [...]
--- OUTSIDE RECORDS SUMMARY | ~2017-08-27 | XMS | Encounter Summary ---
Demographics + + + | Address | [address] | | | [place] [address] | + + + | Home Phone | | + + + | Preferred Language | Unknown | + + + | Marital Status | | + + + | Restorationist Affiliation | Unknown | + + + | Race | Unknown | + + + | Ethnic Group | Unknown | + + + Author + + + | Author | [facility] | | | and [place] | + + + | Organization | [facility] | | | and [place] | + + + | Address | Unknown | + + + | Phone | Unavailable | + + + Support + + + + + | Name | Relationship | Address | Phone | + + + + + | Jhony Hutchison | ECON | [address] [place] | | | | | [address] [place] | | | | | [address] | | + + + + + | Florin Pantoja | ECON | Unknown | | + + + + + Care Team Providers + +------+ + | Care Circuit Recorder Name | Role | Phone | + [...] CES[facility] | | | | | [address] [place] | [place] [address] | | | | | [place] [address] | [phone] | | | | | [phone] | | | +--------+ + + + [...]
--- OUTSIDE RECORDS SUMMARY | ~2017-08-27 | XMS | Clinical Summary ---
Demographics + + + | Address | [address] | | | [place] [address] | + + + | Home Phone | | + + + | Preferred Language | Unknown | + + + | Marital Status | | + + + | Lutheran Affiliation | Unknown | + + + | Race | Unknown | + + + | Ethnic Group | Unknown | + + + Author + + + | Author | [facility] | | | and [place] | + + + | Organization | [facility] | | | and [place] | + + + | Address | Unknown | + + + | Phone | Unavailable | + + + Support + + + + + | Name | Relationship | Address | Phone | + + + + + | Jhony Hutchison | ECON | [address] [place] [address] | | | | | [address] | | | | | [address] | | + + + + + | Florin Pantoja | ECON | Unknown | | + + + + + Care Team Providers + +------+ + | Care Permit Coordinator Name | Role | Phone | [...] complete remission.1. Presentation | | to the [facility] emergency room in [facility] on | | February 14, 2016 with complaints of cough and odynophagia. | | Complete blood count was notable for a white count of 117,000, | | hemoglobin 10.7 g/dL, platelet count of 51,000. She was | | emergently transferred to the [facility] and science | | [place] were bone marrow biopsy and aspiration at [facility] on | | February 15, [...] | MiDaC (1500 mg/m Cytarabine) consolidation at [facility] on February | | 2015.4. Cycle#2 MiDaC (1500 mg/m Cytarabine) consolidation | | at [facility] on May 01, 2016.5. Cycle#3 MiDaC (1200 mg/m | | Cytarabine) consolidation at [facility] on May 28, 2016.6. Cycle#4 | | MiDaC (1000 mg/m Cytarabine ) consolidation at [facility] on | | June 25, 2016.7. Bone Marrow Biopsy and Aspiration July 23 | | 2016 at the [facility] in [facility] | | [place], [place] specimen # [id number] demonstrated ongoing complete | | remission. Molecular [...] Hct 41.8%, | | Platelet count 10,000. [id number] U/L, BUN 14 mg/dL, Scr 0.82 | | mg/dL.14. Admit [facility] [place] | | [place] 03/01/2017; Chest X-ray consistent with pulmonary leukostasis. | | Hydroxyurea 2 grams po q 4 hours x 3 doses with no change in | | WBC.15. Transfer to [facility]; bone marrow biopsy and aspiration [...] high-dose cytarabine consolidation at | | the [facility] on March 26, 2016.19. | | Cycle #2 of cytarabine consolidation at the [facility] and | | [facility] on May 01, 2016.20. Cycle #3 of cytarabine | | consolidation at the [facility] | | in [place], [place], May 28, 2016.21. Cycle #4 of | | cytarabine consolidation chemotherapy at the [facility] | | [facility] in [place], [place], June 25 | | 2016.22. Repeat bone marrow biopsy and aspiration on July 23, | | 2016, at the [facility] in [facility] | [place], [place], specimen #[id number] demonstrating ongoing | | complete remission. 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 Admitted to [facility], June 28, 2017. Status post | | Idarubicin/Cytarabine re-induction chemotherapy.29. Repeat bone | | marrow biopsy July 29, 2017; 80% myeloblasts, discharged from | | [facility] on August 08, 2017, Last Assessment & Plan: Rhea Rogers | | Foster returned to clinic on 08/12/2017 with her , Jhony, for | | follow up, six weeks after failed re-induction chemotherapy with | | idarubicin/cytarabine at [facility].Review of systems includes fevers, | [...] diagnosed during induction | | chemotherapy at [facility].Repeat CT scan on June 21, 2016 at [facility] | | "Interval complete resolution of previously [...] | | | [facility] | | [facility] | | [place] | | | [place]. | | | Name/Age/DO | | | B: Rhea | | | Meme Peak | | | 51 y.o. | | | 1965 | | | Med. | | | Record | | | Number: | | | [id number] | | | Date of | | [...] | | | Filiberto, | | | AFFILIATE MANAGER.Identify | | | ing | | | Statement: | | | Rhea Staleyn | | | Peak is a | | | 51 y.o. | | | female from | | | [address] | | | [address] | | | [address] | | | [place] [address] | | | with [facility] | | [...] | n to the | | | [facility] | | | emergency | | | room in | | | [place] | | | [place] on | | | February 13, | [...] | | to the | | | [place] | | | health and | | [...] | consolidati | | | on at [facility] | | | on April | | | 30, | | | 2016.6. | | | Cycle#4 | | | MiDaC (1000 | | | mg/m | | | Cytarabine | | | ) | | | consolidati | | | on at [facility] | | | on | | | May | | | 2016.7. | | | Bone | | | Marrow | | | Biopsy and | | | Aspiration | | | July 23, | | | 2017 at the | | | [facility] | | | [place] [facility] | | | [facility] in | | | [place] | | | [place], [place] | | | specimen # | | | [id number] | | | | | | demonstrate [...] | | | 10,000. | | | [id number] | | | U/L, BUN 14 | | | mg/dL, Scr | | | 0.82 | | | mg/dL.14. | | | Admit | | | [facility] | | | [place] | | | [facility] | | | [facility], | | | [place] | | | [place] | | | [...] | on at the | | | [place] | | | Health and | | | Science | | | University | | | on February | | | , | | | 2015.19. | | | Cycle #2 of | | | cytarabine | | | | | | consolidati | | | on at the | | | [place] | | | Health and | | | Science | | | University | | | on April | | | 2016.20. | | | Cycle #3 | | | of | | | cytarabine | | | consolidati | | | on at the | | | [facility] | | | [place] [facility] | [facility] | | | [...] | y at the | | | [facility] | | | [place] [facility] | | | [...] | | at the | | | [facility] | | | [place] | | | [facility] | | | [...] | | | Oncology | | | [id number] | | | 7); | | | [...] | | | [facility]; | | | [place] | | | Or | | | | | | CHOLECYSTEC | | | SEAMUS | | | 06/2013 | | | St. | | | [facility]; | | | [place] | | | Or. | | | JOINT | | | REPLACEMENT | | | 01/2014 | | | Knee | | | replacement | | | | | | KNEE | | | ARTHROPLAST | | | Y Right | | | 01/2014 | | | St. | | | [facility]; | | | [place] | | | Or. | | | [...] | | | (MRN | | | [id number] | | | ) as of | [...] | | | NOT | | | [place] | | | Latest Ref | | [...] | | | (MRN | | | [id number] | | | ) as of | [...] | | | Specific | | | [place] | | | Latest Ref | | [...] + + + | Product Code | [id number] | | + + + + | UNIT # | [id number] | | + + + + | UNIT ABO | O | | + + + + | UNIT RH | POS | | + + + + | Unit Status | Transfused | | + + + + | Blood Product ABORh | OPOS | | + + + + | Blood Product | [id number] | | | Expiration Date and | | | | Time | | | + + + + | Product Blood Type | 5100 | | | Barcode | | | + + + + + + + | Specimen | Performing Laboratory | + + + | Blood Product | [facility] [address] | | | [place] [address] | + + + Platelet Count (08/12/2017 [...] | + + + | Blood | [facility] [address] | | | [place] [address] | + + + Platelets (PLT) - [...] + + | Blood | [facility] [address] | | | [place] [address] | + + + Slide Review, Peripheral [...] | + + + | Blood | [facility] [address] | | | [place] [address] | + + + + + | [...] + + | Blood | [facility] [address] | | | [place] [address] | + + + Extra Plain Red Top Tube (08/12/2017 1122) + +-------+ + | Component | Value | Ref Range | + +-------+ + | Extra Plain Red Top | Done | | | Tube | | | + +-------+ + + + + | Specimen | Performing Laboratory | + + + | Blood | [facility] [address] | | | [place] [address] | + + + Lactate Dehydrogenase (08/12/20171121) + +---------+ + | Component | Value | Ref Range | + +---------+ + | LDH TOTAL | 208 (H) | 91 - 180 U/L | + +---------+ + + + + | Specimen | Performing Laboratory | + + + | Blood | [facility] [address] | | | [place] [address] | + + + Comprehensive Metabolic Panel [...] GLOMERULAR FILTRATION | >=60 mL/min/1.73m2 | | [place] | RATE,ESTIMATED mL/min/1.33e0Zcbc than | | | | 60 Chronic [...] + + | Blood | [facility] [address] | | | [place] [address] | + + + CT Chest wo [...] signed: 06/28/2017 12:59 PM | + + [facility] Referral (06/28/2017 1107) + + + + | Component | Value | Ref Range | + + + + | Miscellaneous Lab | COMMENTComment: Test Ordered: 142345 | | | Test Result | IDH1/IDH2 [...] amino | | | | acids 140 lts120 of | | | | IDH2.Method | [...] in IDH1 and | | | | [id number]: R100Q, R100L, R100P, R132C, | | | | R132S, R132G, R132H, R132L, | | | | R132P, R132V, | | | | [id number]: R172K, R172M, R172T, R172W, | | | | R172G, R172S, R140G, R140W, | | | | R140L, R140Q, | | | | [id number] | | | | | | | [...] J Med. 2008 | | | | 19;360(8):432-73. IDH1 and IDH2 | | | | mutationsin gliomas. Cordell H, Emy DW, | | | | Reed G, Alden R, Miguel BA, Moreno W,Kos | | | | I, Sydney I, Jude S, Yancy GJ, | | | | Susanne H, Susanne A,Jun D, Thib[place]aux | | | | J, Magdiel KW, Dara VE, Vogelstein | | | | B,Fernando DD.(6) | | | | https://www.fda.gov/Drugs/InformationonDrug | | | | s/ApprovedDrugs/[email or web address].htmDirector | | | | Review Comme | | | | nt | | | | 01 Jacque Levy, PhD, | | | | [facility] Director, | | | | Molecular | | | | Genetics | | | | [facility] | | | | Molecular | | | | Biology and | | | | Pathology | | | | [facility], | | | | [place] | | | | Microdissection | | | | Performed TNP | | | | 02 Test not | | | | performed | | + + + + + + + | Specimen | Performing Laboratory | + + + | Blood - Peripheral | REFERENCE LAB [facility] [address] [facility] | | Blood | [place] [address] | + + + + + | Narrative | + + | Performed at: 03 - [facility] [address] [place], [place] [address] | | Manager Medical Affairs: Anish Anderson MD, Phone: [phone] | + + CBC with Differential (06/28/2017330)Only [...] | + + + | Blood | [facility] [address] | | | [place] [address] | + + + Uric Acid (06/28/2017 [...] | + + + | Blood | [facility] [address] [place] | | | [address] [place] [address] | + + + Phosphorus (06/28/2017 0331)Only the most recent of 2 results within the time period is inc luded. + +-------+ + | Component | Value | Ref Range | + +-------+ + | PHOSPHORUS | 3.5 | 2.5 - 4.6 mg/dL | + +-------+ + + + + | Specimen | Performing Laboratory | + + + | Blood | [facility] [address] | | | [place] [address] | + + + Basic Metabolic Panel [...] GLOMERULAR FILTRATION | >=60 mL/min/1.73m2 | | [place] | RATE,ESTIMATED mL/min/1.33k7Dcco than | | | | 60 Chronic [...] | + + + | Blood | [facility] | | | [place] [address] | + + + Urinalysis with Microscopic [...] | + + + + | Specific [place] | 1.017 | 1.001 - 1.030 | [...] + + | Urine | [facility] [address] | | | [place] [address] | + + + Extra Blood Bank Tube (06/26/2017 1700) + + + + | Component | Value | Ref Range | + + + + | Hold BB | Hold Specimen | | + + + + + + + | Specimen | Performing Laboratory | + + + | Blood | [facility] [address] | | | [place] [address] | + + + Wei, Manual (06/26/2017 [...] | + + + | Blood | [facility] [address] [place] | | | [place] [address] | + + + from Last 3 [...] | MODA | [phone] | Medica | [phone] | | MEDICAID HMO | HEALTH [...] Self | [birth year] | Home: | [address] | | | al/Fam | | 1966 | [phone] | [address] [place], | | | eric | | | [address] | [place] [address] | + +--------+ +--------+ + +
--- OUTSIDE RECORDS SUMMARY | ~2017-08-27 | XMS | Encounter Summary ---
Demographics + + + | Address | [address] | | | [place] [address] | + + + | Home Phone | | + + + | Preferred Language | Unknown | + + + | Marital Status | | + + + | Lutheran Affiliation | Unknown | + + + | Race | Unknown | + + + | Ethnic Group | Unknown | + + + Author + + + | Author | [facility] | | | and [place] | + + + | Organization | [facility] | | | and [place] | + + + | Address | Unknown | + + + | Phone | Unavailable | + + + Support + + + + + | Name | Relationship | Address | Phone | + + + + + | Jhony Hutchison | ECON | [address] [place] | | | | | [address] [place] | | | | | [address] | | + + + + + | Florin Pantoja | ECON | Unknown | | + + + + + Care Team Providers + +------+ + | Care Erp Business Analyst Name | Role | Phone | [...] [facility] | | | | | [address] [place] | [place] [address] | | | | | [place] [address] | [phone] | | | | | [phone] | | | +--------+ + + + [...]
--- OUTSIDE RECORDS SUMMARY | ~2017-08-27 | XMS | Encounter Summary ---
Demographics + + + | Address | [address] | | | [place] [address] | + + + | Home Phone | | + + + | Preferred Language | Unknown | + + + | Marital Status | | + + + | Uatsdin Affiliation | Unknown | + + + | Race | Unknown | + + + | Ethnic Group | Unknown | + + + Author + + + | Author | [facility] | | | and [place] | + + + | Organization | [facility] | | | and [place] | + + + | Address | Unknown | + + + | Phone | Unavailable | + + + Support + + + + + | Name | Relationship | Address | Phone | + + + + + | Jhony Hutchison | ECON | [address] | | | | | [address] [place] | | | | | [address] | | + + + + + | Florin Pantoja | ECON | Unknown | | + + + + + Care Team Providers + +------+ + | Care Plush Finisher Name | Role | Phone | + [...] | 06/03/ | Refill | [facility] | Leonardo, | Medication Refill | | 2018 | | [facility] | Daniel French MD [address] | | | | | [facility] [address] | [facility] | | | | | [facility] | [place] [address] | | | | | [place] [address] | [phone] | | | | | [phone] | | | +--------+--------+ + + + [...]
--- OUTSIDE RECORDS SUMMARY | ~2017-08-27 | XMS | Encounter Summary ---
Demographics + + + | Address | [address] | | | [place] [address] | + + + | Home Phone [...] Team Providers + +------+ + | Care Gold Nib Grinder Name | Role | Phone | [...] | | | [place] | [place] [address] | | | | | [place], [place] | | | | | | [address] | | | +--------+ + + + [...]
--- OUTSIDE RECORDS SUMMARY | ~2017-08-27 | XMS | Encounter Summary ---
Demographics + + + | Address | [address] | | | [place] [address] | + + + | Home Phone | | + + + | Preferred Language | Unknown | + + + | Marital Status | | + + + | Cheondoism Affiliation | NON | + + + [...] Team Providers + +------+ + | Care Psychiatric Secretary Name | Role | Phone | + [...] [address] | | | | | | [place], [place] | | | | | | [address] | | | | | | [phone] | | | +--------+ + + + [...]
--- OUTSIDE RECORDS SUMMARY | ~2017-08-27 | XMS | Encounter Summary ---
Demographics + + + | Address | [address] | | | [place] [address] | + + + | Home Phone | | + + + | Preferred Language | Unknown | + + + | Marital Status | | + + + | Druze Affiliation | NON | + + + | Race | White | + + + | Ethnic Group | Not or | + + + Author + + + | Author | [facility] | + + + | Organization | [facility] | + + + | Address [...] Team Providers + +------+ + | Care Revenue Tax Specialist Name | Role | Phone | [...] | | | [address] | [facility] | | | | | [facility] | [place], [place] | | | | | [place], [place] | [address] | | | | | [address] | [phone] | | | | | | | [...] | + + + | Blood | [facility] [address] [place] [address] [address] | | | [address] [place] [address] | + + + LIT HLA-DQ HIGH RES (06/03/2017 1:47 PM) + + + | Specimen | Performing Laboratory | + + + | Blood | [facility] [address] [place] [address] [address] | | | [address] [place] [address] | + + + LIT HLA-DR HIGH RES (06/03/2017 1:47 PM) + + + | Specimen | Performing Laboratory | + + + | Blood | [facility] [address] | | | [address] [place] [address] | + + + LIT HLA-C HIGH RES (06/03/2017 1:47 PM) + + + | Specimen | Performing Laboratory | + + + | Blood | [facility] [address] | | | [address] [place] [address] | + + + LIT HLA-B HIGH RES (06/03/2017 1:47 PM) + + + | Specimen | Performing Laboratory | + + + | Blood | [facility] [address] [place] [address] [address] | | | [address] [place] [address] | + + + LIT HLA-A HIGH RES (06/03/2017 1:47 PM) + + + + | Component | Value | Ref Range | + + + + | LABEL ONLY - LIT | Please see lab report for result. | | + + + + + + + | Specimen | Performing Laboratory | + + + | Blood | [facility] [address] | | | [address] [place] [address] | + + + LIT HLA-DP HIGH RES (06/03/2017 1:47 PM) + + + | Specimen | Performing Laboratory | + + + | Blood | [facility] [address] [facility] [address] | | | [address] [place] [address] | + + + BMR/MUD PANEL (06/03/2017 [...] | ------ LIT HLA-A HIGH | | RES[[id number]] Final | | result LIT HLA-B HIGH | | RES[[id number]] Final | | result LIT HLA-C HIGH | | RES[[id number]] Final | | result LIT HLA-DR HIGH | | RES[[id number]] Final | | result LIT HLA-DQ HIGH | | RES[[id number]] Final | | result LIT HLA-DRB 3,4,5 HIGH | | RES[[id number]] Final | | result Please view results for these tests on the | | individual orders. 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
--- OUTSIDE RECORDS SUMMARY | ~2017-08-27 | XMS | Encounter Summary ---
Demographics + + + | Address | [address] | | | [place] [address] | + + + | Home Phone [...] + + + | Author | [facility] | + + + | Organization | [facility] | + + + | Address | [...] Team Providers + +------+ + | Care Wildlife Removal Specialist Name | Role | Phone | [...] Rd | | | | | | [place], [place] | | | | | | [address] | | | | | | [phone] | | | +--------+ + + + [...]
--- OUTSIDE RECORDS SUMMARY | ~2017-08-27 | XMS | Encounter Summary ---
Demographics + + + | Address | [address] | | | [place] [address] | + + + | Home Phone | | + + + | Preferred Language | Unknown | + + + | Marital Status | | + + + | Sikh Affiliation | NON | + + + [...] Providers + +------+ + | Care Lead Laying And Gluing Machine Operator Name | Role | Phone [...] 2018 | Visit | Hematologic | M, PERSONNEL PLACEMENT SPECIALIST [address] [facility] | leukemia not having | | | | Malignancies at | [facility] | achieved remission | | | | [facility] | [place], [place] | (HCC) (Primary Dx) | | | | [address] [facility] | [address] | | | | | [address] | [phone] | | | | | Mailcode: [id number] | | | | | | [facility] | Adrián Singer MD | | | | | [place], [place] | [address] [facility] | | | | | [address] | [address] [place], | | | | | [phone] | [place] [address] | | | | | | [phone] | | | | | | | | | | | | Glenna Shah, | | | | | | DEPUTY BRAND INSPECTOR [address] [facility] | | | | | | [facility] | | | | | | [place], [place] | | | | | | [address] | | | | | | [phone] | | | | | | | [...]
--- OUTSIDE RECORDS SUMMARY | ~2017-08-27 | XMS | Clinical Summary ---
Demographics + + + | Address | [address] | | | [place] [address] | + + + | Home Phone | | + + + | Preferred Language | Unknown | + + + | Marital Status | | + + + | Baptist Affiliation | Unknown | + + + | Race | Unknown | + + + | Ethnic Group | Unknown | + + + Author + + + | Author | [facility] | | | and [place] | + + + | Organization | [facility] | | | and [place] | + + + | Address | Unknown | + + + | Phone | Unavailable | + + + Support + + + + + | Name | Relationship | Address | Phone | + + + + + | Jhony Hutchison | ECON | [address] [place] [address] | | | | | [address] | | | | | [address] | | + + + + + | Florin Pantoja | ECON | Unknown | | + + + + + Care Team Providers + +------+ + | Care Podiatric Technician Name | Role | Phone | [...] complete remission.1. Presentation | | to the [facility] emergency room in [facility] [place], [place] on | | February 14, 2016 with complaints of cough and odynophagia. | | Complete blood count was notable for a white count of 117,000, | | hemoglobin 10.7 g/dL, platelet count of 51,000. She was | | emergently transferred to the [facility] and science | | [place] were bone marrow biopsy and aspiration at [facility] on | | February 15, 2016 [...] | MiDaC (1500 mg/m Cytarabine) consolidation at [facility] on February | | 2015.4. Cycle#2 MiDaC (1500 mg/m Cytarabine) consolidation | | at [facility] on May 01, 2016.5. Cycle#3 MiDaC (1200 mg/m | | Cytarabine) consolidation at [facility] on May 28, 2016.6. Cycle#4 | | MiDaC (1000 mg/m Cytarabine ) consolidation at [facility] on | | June 25, 2016.7. Bone Marrow Biopsy and Aspiration July 23 | | 2016 at the [facility] in [facility] | | [place], [place] specimen # [id number] demonstrated ongoing complete | | remission. Molecular [...] Hct 41.8%, | | Platelet count 10,000. [id number] U/L, BUN 14 mg/dL, Scr 0.82 | | mg/dL.14. Admit [facility] [place] | | [place] 03/01/2017; Chest X-ray consistent with pulmonary leukostasis. | | Hydroxyurea 2 grams po q 4 hours x 3 doses with no change in | | WBC.15. Transfer to [facility]; bone marrow biopsy and aspiration were [...] high-dose cytarabine consolidation at | | the [facility] on March 26, 2016.19. | | Cycle #2 of cytarabine consolidation at the [facility] and | | [facility] on May 01, 2016.20. Cycle #3 of cytarabine | | consolidation at the [facility] | | in [place], [place], May 28, 2016.21. Cycle #4 of | | cytarabine consolidation chemotherapy at the [facility] | | [facility] in [place], [place], June 25 | | 2016.22. Repeat bone marrow biopsy and aspiration on July 23, | | 2016, at the [facility] in [facility] | [place], [place], specimen #[id number] demonstrating ongoing | | complete remission. 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 Admitted to [facility], June 28, 2017. Status post | | Idarubicin/Cytarabine re-induction chemotherapy.29. Repeat bone | | marrow biopsy July 29, 2017; 80% myeloblasts, discharged from | | [facility] on August 08, 2017, Last Assessment & Plan: Rhea Rogers | | Foster returned to clinic on 08/12/2017 with her , Jhony, for | | follow up, six weeks after failed re-induction chemotherapy with | | idarubicin/cytarabine at [facility].Review of systems includes fevers, | | [...] diagnosed during induction | | chemotherapy at [facility].Repeat CT scan on June 21, 2016 at [facility] | | "Interval complete resolution of [...] | | | Cancer | | | [facility] | | | [place] | | | [place] | | | Name/Age/DO | | | B: Rhea | | | Meme Peak | | | 51 y.o. | | | 1965 | | | Med. 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 | | | female from | | | [address] | | | [address]pt | | | [address] | | | [place] [address] | | | with [facility] | | [...] | n to the | | | [facility] | | | emergency | | | room in | | | Story | | | [place] on | | | February 13, | [...] | | to the | | | [place] | | | health and | | [...] | consolidati | | | on at [facility] | | | on April | | | 30, | | | 2016.6. | | | Cycle#4 | | | MiDaC (1000 | | | mg/m | | | Cytarabine | | | ) | | | consolidati | | | on at [facility] | | | on | | | May | | | 2016.7. | | | Bone | | | Marrow | | | Biopsy and | | | Aspiration | | | July 23, | | | 2017 at the | | | [facility] | [facility] in | | | [place] | | | [place] | | | specimen # | | | [id number] | | | | | | demonstrate [...] | | | 10,000. | | | [id number] | | | U/L, BUN 14 | | | mg/dL, Scr | | | 0.82 | | | mg/dL.14. | | | Admit | | | [facility] | [facility] | | | [facility], | | | [place] | | | [place] | | | [...] | on at the | | | [place] | | [facility] and | | | Science | | | University | | | on February | | | , | | | 2015.19. | | | Cycle #2 of | | | cytarabine | | | | | | consolidati | | | on at the | | | [place] | | | [facility] | | | Science | | | University | | | on April | | | 2016.20. | | | Cycle #3 | | | of | | | cytarabine | | | consolidati | | | on at the | | | [facility] [place] [facility] | | | [...] | y at the | | | [facility] [place] [facility] | | | [...] | | at the | | | [facility] [place] [facility] | | | [...] | | | Oncology | | | [id number] | | | 7); | | | [...] | | | [facility]; | | | Story | | | Or | | | | | | CHOLECYSTEC | | | SEAMUS | | | 06/2013 | | | St. | | | [facility]; | | | Story | | | Or. | | | JOINT | | | REPLACEMENT | | | 01/2014 | | | Knee | | | replacement | | | | | | KNEE | | | ARTHROPLAST | | | Y Right | | | 01/2014 | | | St. | | | [facility]; | | | Story | | | Or. | | | [...] | | | (MRN | | | [id number] | | | ) as of | [...] | | | NOT | | | MACEDONIAN | | | Latest Ref | | [...] | | | (MRN | | | [id number] | | | ) as of | [...] | | | Specific | | | [place] | | | Latest Ref | | [...] + + + | Product Code | [id number] | | + + + + | UNIT # | [id number] | | + + + + | UNIT ABO | O | | + + + + | UNIT RH | POS | | + + + + | Unit Status | Transfused | | + + + + | Blood Product ABORh | OPOS | | + + + + | Blood Product | [id number] | | | Expiration Date and | | | | Time | | | + + + + | Product Blood Type | 5100 | | | Barcode | | | + + + + + + + | Specimen | Performing Laboratory | + + + | Blood Product | [facility] [address] | | | [place] [address] | + + + Platelet Count (08/12/2017 [...] | + + + | Blood | [facility] [address] | | | [place] [address] | + + + Platelets (PLT) - [...] + + + | Blood | [facility] [address] | | | [place] [address] | + + + Slide Review, Peripheral [...] | + + + | Blood | [facility] [address] | | | [place] [address] | + + + + + | [...] + + + | Blood | [facility] [address] | | | [place] [address] | + + + Extra Plain Red Top Tube (08/12/2017 1122) + +-------+ + | Component | Value | Ref Range | + +-------+ + | Extra Plain Red Top | Done | | | Tube | | | + +-------+ + + + + | Specimen | Performing Laboratory | + + + | Blood | [facility] [address] | | | [place] [address] | + + + Lactate Dehydrogenase (08/12/20171121) + +---------+ + | Component | Value | Ref Range | + +---------+ + | LDH TOTAL | 208 (H) | 91 - 180 U/L | + +---------+ + + + + | Specimen | Performing Laboratory | + + + | Blood | [facility] [address] | | | [place] [address] | + + + Comprehensive Metabolic Panel [...] GLOMERULAR FILTRATION | >=60 mL/min/1.73m2 | | MACEDONIAN | RATE,ESTIMATED mL/min/1.46h5Xgtw than | | | | 60 Chronic [...] + + + | Blood | [facility] [address] | | | [place] [address] | + + + CT Chest wo [...] signed: 06/28/2017 12:59 PM | + + [facility] (06/28/2017 1107) + + + + | Component | Value | Ref Range | + + + + | Miscellaneous Lab | COMMENTComment: Test Ordered: 650961 | | | Test Result | IDH1/IDH2 [...] amino | | | | acids 140 guc098 of | | | | IDH2.Method | [...] in IDH1 and | | | | PVI9FLH1: R100Q, R100L, R100P, R132C, | | | | R132S, R132G, R132H, R132L, | | | | R132P, R132V, | | | | [id number]: R172K, R172M, R172T, R172W, | | | | R172G, R172S, R140G, R140W, | | | | R140L, R140Q, | | | | [id number] | | | | | | | [...] J Med. 2008 | | | | 19;360(8):597-73. IDH1 and IDH2 | | | | mutationsin gliomas. Cordell H, Emy DW, | | | | Reed G, Alden R, Miguel BA, Moreno W,Kos | | | | I, Sydney I, Jude S, Yancy GJ, | | | | Susanne H, Susanne A,Jun D, Bronx | | | | J, Magdiel KW, Dara VE, Vogelstein | | | | B,Fernando DD.(6) | | | | https://www.fda.gov/Drugs/InformationonDrug | | | | s/ApprovedDrugs/qtn727483.htmDirector | | | | Review Comme | | | | nt | | | | 01 Jacque Levy, PhD, | | | | [facility] Director, | | | | Molecular | | | | Genetics | | | | [facility] | | | | Molecular | | | | Biology and | | | | Pathology | | | | [facility], | | | | [place] | | | | Microdissection | | | | Performed TNP | | | | 02 Test not | | | | performed | | + + + + + + + | Specimen | Performing Laboratory | + + + | Blood - Peripheral | [facility] [address] | | Blood | [place] [address] | + + + + + | Narrative | + + | Performed at: 03 - [facility] [address] [place], [place] [id number] | | Patent Leather Sorter: Anish Anderson MD, Phone: [phone] | + + CBC with Differential (06/28/2017330)Only [...] | + + + | Blood | [facility] [address] | | | [place] [address] | + + + Uric Acid (06/28/2017 [...] | + + + | Blood | [facility] [address] | | | [place] [address] | + + + Phosphorus (06/28/2017 0331)Only the most recent of 2 results within the time period is inc luded. + +-------+ + | Component | Value | Ref Range | + +-------+ + | PHOSPHORUS | 3.5 | 2.5 - 4.6 mg/dL | + +-------+ + + + + | Specimen | Performing Laboratory | + + + | Blood | [facility] [address] | | | [place] [address] | + + + Basic Metabolic Panel [...] GLOMERULAR FILTRATION | >=60 mL/min/1.73m2 | | MAC[place]ONIAN | RATE,ESTIMATED mL/min/1.58e1Vxsc than | | | | 60 Chronic [...] | + + + | Blood | [facility] | | | [place] [address] | + + + Urinalysis with Microscopic [...] | + + + + | Specific [place] | 1.017 | 1.001 - 1.030 | [...] + + + | Urine | [facility] [address] | | | [place] [address] | + + + Extra Blood Bank Tube (06/26/2017 1700) + + + + | Component | Value | Ref Range | + + + + | Hold BB | Hold Specimen | | + + + + + + + | Specimen | Performing Laboratory | + + + | Blood | [facility] [address] | | | [place] [address] | + + + Wei, Manual (06/26/2017 [...] | + + + | Blood | [facility] [address] | | | [place] [address] | + + + from Last 3 [...] | MODA | [id number] | Medica | [phone] | | | MEDICAID HMO | HEALTH [...] Self | [birth year] | Home: | [address] | | | al/Fam | | 1966 | [phone] [address] [place], | | | eric | | | [address] | [place] [address] | + +--------+ +--------+ + +
--- OUTSIDE RECORDS SUMMARY | ~2017-08-27 | XMS | Encounter Summary ---
Demographics + + + | Address | [address] | | | [place] [address] | + + + | Home Phone [...] Team Providers + +------+ + | Care Front Desk Specialist Name | Role | Phone | [...] [address] | | | | | | [place], [place] | | | | | | [address] | | | | | | [phone] | | | +--------+ + + + [...]
--- OUTSIDE RECORDS SUMMARY | ~2017-08-27 | XMS | Encounter Summary ---
Demographics + + + | Address | [address] | | | [place] [address] | + + + | Home Phone | | + + + | Preferred Language | Unknown | + + + | Marital Status | | + + + | Congregation Affiliation | NON | + + + | Race | White | + + + | Ethnic Group | Not or | + + + Author + + + | Author | [facility] | + + + | Organization | [facility] | + + + | Address [...] Providers + +------+ + | Care Director Digital Strategy Name | Role | Phone | + +------+ + | Saurav De Los Santos NP | PCP | | + +------+ + Encounter Details +--------+ + + + + | Date | Type | Department | Care Team | Description | +--------+ + + + + | 08/06/ | [facility] | [facility] for | Shayna Gardiner, | 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
--- OUTSIDE RECORDS SUMMARY | ~2017-08-27 | XMS | Encounter Summary ---
Demographics + + + | Address | [address] | | | [place] [address] | + + + | Home Phone [...] Author + + + | Author | [facility] | + + + | Organization | [facility] | + + + | [...] Team Providers + +------+ + | Care Crop Farm Workers Name | Role | Phone | + [...] | | | | | | [place], | | | | | | [place] [address] | | | | | | [phone] | | | +--------+ + + + [...]
--- OUTSIDE RECORDS SUMMARY | ~2017-08-27 | XMS | Encounter Summary ---
Demographics + + + | Address | [address] | | | [place] [address] | + + + | Home Phone | | + + + | Preferred Language | Unknown | + + + | Marital Status | | + + + | Uatsdin Affiliation | NON | + + + | Race | White | + + + | Ethnic Group | Not or | + + + Author + + + | Author | [facility] | + + + | Organization | [facility] | + + + | [...] Team Providers + +------+ + | Care Special Service Representative Name | Role | Phone | + [...] [address] | | | | | | [facility] | | | | | | [place], [place] | | | | | | [address] | | | +--------+ + + + [...]
--- OUTSIDE RECORDS SUMMARY | ~2017-08-27 | XMS | Encounter Summary ---
Demographics + + + | Address | [address] | | | [place] [address] | + + + | Home Phone | | + + + | Preferred Language | Unknown | + + + | Marital Status | | + + + | Scientologist Affiliation | NON | + + + [...] Team Providers + +------+ + | Care Contracts Law Professor Name | Role | Phone | [...] [address] | | | | | | [facility] | | | | | | [place], [place] | | | | | | [address] | | | +--------+ + + + [...]
--- OUTSIDE RECORDS SUMMARY | ~2017-08-27 | XMS | Encounter Summary ---
Demographics + + + | Address | [address] | | | [place] [address] | + + + | Home Phone [...] Team Providers + +------+ + | Care Shift Mechanic Name | Role | Phone | [...] [address] | | | | | | [facility] | | | | | | [place], [place] | | | | | | [address] | | | +--------+ + + + [...]
--- OUTSIDE RECORDS SUMMARY | ~2017-08-27 | XMS | Encounter Summary ---
Demographics + + + | Address | [address] | | | [place] [address] | + + + | Home Phone | | + + + | Preferred Language | Unknown | + + + | Marital Status | | + + + | Yarsanism Affiliation | NON | + + + | Race | White | + + + | Ethnic Group | Not or | + + + Author + + + | Author | [facility] | + + + | Organization | [facility] | + + + | [...] Team Providers + +------+ + | Care Oyster Sorter Name | Role | Phone | + +------+ + | Saurav De Los Santos NP | PCP | | + +------+ + Encounter Details +--------+ + + + + | Date | Type | Department | Care Team | Description | +--------+ + + + + | 08/01/ | Anesthesia | Center | Glenna Shah, | | | 2018 | Event | Hematologic | OCEANOGRAPHIC METEOROLOGIST [address] | | | | | Malignancies at | [address] | | | | | [address] | [place], [place] | | | | | [address] | [address] | | | | | [facility] | [phone] | | | | | Mailcode: [id number] | | | | | | [address] [place] | | | | | | [place], [place] | | | | | | [address] | | | | | | [phone] | | | +--------+ + + + [...] | | | Lumen | 2:Purple; Yes; [id number] | | | +--------+ + +---------+ in [...]
--- OUTSIDE RECORDS SUMMARY | ~2017-08-27 | XMS | Clinical Summary ---
Demographics + + + | Address | [address] | | | [place] [address] | + + + | Home Phone [...] Team Providers + +------+ + | Care Piece Work Inspector Name | Role | Phone | + +------+ + | Saurav De Los Santos NP | PP | | + +------+ + Source Comments CARARMANDO is fully live on both EpicCare Ambulatory and EpicCare InPatient.[facility] Allergies + + + + + + [...] | | | | | | | (FORMERLY [facility]) | | | | | | | [...] | 03/05/2016 | + + + | [facility] RESEARCH PROTOCOL PATIENT (SUNNY) | [...] + + + + | 08/06/ | Barrel Assembler | | Shayna Gardiner, | Acute myeloid [...] | | 2017 | Event | | LANDSCAPE ARCHITECT | | +--------+ + + + + [...] | | - Bassam, | | | Norsi, ACNP | | | - | | [...] | | | Staci, | | | ENRICHMENT DIRECTOR Brief | | | hospital | | [...] | | Was given | | | Alrette + | | | modified | | [...] | | and Dr. | | | Woodburn did | | | speak with | | | Dr. | | | Leonardo | | | | | | immediately | | | before | | | discharge. | | | Of note, | | | she did | | | have fevers | | | within 24 | | | hours of | | | leaving. | | | [place] to be | | | most c/w [...] | | | hospital | | | ([facility] | | | St. | | | [...] | CR 15 mg | | | Gc39Uulnprg | | | y known as: | [...] | | | Physician | | | Audio Technician | | | working | | | with me, | | | had a face | | | to face | | | encounter | | | with this | | | patient on | | | 08/06/2017On | | | behalf of | | | Attending | | | Physician: | | | Pepe A | | | Woodburn, MDI | | | am ordering | [...] | | | Cancer | | | [id number] | | [address] | | | [place] | | | [phone] | | | [phone] | | | SAURAV | | | STACI, | | | ENRICHMENT DIRECTOR . | | | Specialty: | | | Nurse | | | Practitione | | | r Adult | | | Health[facility]a | | | ct | | | information | | | [facility] | | | CARE | | | [id number] | | | [address] | | | [place] | | | [place] | | | [phone] | | | [phone] | | | Daniel C | | | Leonardo | | | , MD Sanchez | | | Specialty: | | | Hematology | | | & | | | OncologyCon | | | tact | | | information | | | [facility] | [facility] | | | Cancer | | | [id number] | | | [facility] | | | [address] | | | [address] | | | n [place] | | | [phone] | | | [phone] | | | Greater | | | than 35 | | | minutes | | | spent | | | arranging | | | discharge, | | | medications | | | and follow | | | up NORIS | | | BASSAM, | | | ACNPOHSU | | | [id number] | | | [address] | | | Antione | | | Kendra | | | RoadMailcod | | | e: | | | [id number] | | | [place], [place] | | | [phone] | | | [phone] | +---+ + [...] | | | | | | type ([facility]ERLY [facility]) | | | | | | Immunocompromised | | | | | | state ([facility]ER[facility]) | | | | | | Pneumonia with the | | | | | | fungal infection | | | | | | aspergillosis ([facility]) | | | | | | Abnormal [...] Months Results CULTURE, BLOOD BACTI & YEAST [facility] (08/08/2017 1:02 AM)Only the most [...] + + | Blood - Antecubital | [facility] LABORATORY SERVICES, CORE [address] [place] [address] | | - right | [place] [address] | + + + CULTURE, BLOOD BACTI [...] ------ CULTURE, BLOOD | | BACTI & Y...[[id number]] Final | | result Please view results [...] + + + | Blood | [facility], CORE [address] | | | [place] [address] | + + + + + | [...] | ------ CBC AND AUTO | | DIFF[[id number]] Abnormal Final | | result Please view [...] | >60 | >60 mL/min | | MOZAMBICAN | | | + + + + | EGFR NON | >60 | >60 mL/min | | -MOZAMBICAN | | | + + + + [...] + + + | Blood | [facility], CORE [address] | | | [place] [address] | + + + + + | [...] | + + + | Blood | [facility] LABORATORY SERVICES, CORE [address] | | | [place] [address] | + + + + + | [...] | + + + | Blood | [facility] LABORATORY SERVICES, CORE [address] [place] [address] | | | [place] [address] | + + + URIC ACID, PLASMA [...] | + + + | Blood | [facility] SERVICES, CORE [address] | | | [place] [address] | + + + MAGNESIUM, PLASMA (08/07/2017 [...] | + + + | Blood | [facility]OR[facility]ORY SERVICES, CORE [address] | | | [place] [address] | + + + + + | [...] | + + + | Blood | [facility] LABORATORY SERVICES, CORE [address] [place] [address] | | | [place] [address] | + + + TRANSFUSE RED CELLS, [...] | + + + | Blood | [facility] LABORATORY SERVICES, TRANSFUSION MEDICINE [address] [place] [address] | | | [place] [address] | + + + TYPE AND SCREEN [...] | ------ ABO & RH | | TYPE[[id number]] F | | inal result ANTIBODY | | SCREEN[[id number]] Fin | | al result Please view [...] | + + + | Blood | [facility] LABORATORY SERVICES, TRANSFUSION MEDICINE [address] [place] [address] | | | [place] [address] | + + + PRODUCT - RED [...] + + | PRODUCT UNIT # | [id number] | | + + + + | UNIT ABO | O | | + + + + | UNIT RH | POS | | + + + + | STATUS OF UNIT | Presumed Transfused | | + + + + | EXPIRATION DATE | [id number] | | + + + + | BLOOD TYPE BARCODE | 5100 | | + + + + | BLOOD PRODUCT CODE | [id number] | | + + + + + + + | Specimen | Performing Laboratory | + + + | | [facility] LABORATORY SERVICES, TRANSFUSION MEDICINE [address] [facility] | | | [place] [address] | + + + TRANSFUSE PLATELET PHERESIS, [...] | + + + | Blood | [facility] LABORATORY SERVICES, [facility] [address] | | | [place] [address] | + + + + + | [...] + + | PRODUCT UNIT # | [id number] | | + + + + | UNIT ABO | O | | + + + + | UNIT RH | NEG | | + + + + | STATUS OF UNIT | Presumed Transfused | | + + + + | EXPIRATION DATE | [id number] | | + + + + | BLOOD TYPE BARCODE | | | + + + + | BLOOD PRODUCT CODE | [id number] | | + + + + + + + | Specimen | Performing Laboratory | + + + | | [facility] LABORATORY SERVICES, TRANSFUSION MEDICINE [address] [place] [address] | | | [place] [address] | + + + VRE (FRANCISCO) BY PCR (08/04/2017 11:30 PM)Only the most recent of 6 results within the time madya garcia is included. + + + + | Component | Value | Ref Range | + + + + | VRE BY PCR | Negative for van A gene | Negative for van A | | | | gene | + + + + + + + | Specimen | Performing Laboratory | + + + | Swab - Rectum | [facility] LABORATORY SERVICES, CORE [address] [place] [address] | | | [place] [address] | + + + PROCEDURE NOTE (08/01/2017 11:44 PM)BIOPSY AND ASPIRATION OF BONE MARROW (08/01/2017 5:45 PM) + + | Narrative | + + | Ellis Bone PA-C,NAOMY 08/01/2017 5:47 PM 06/27/2017 Procedure Note | | PCP: Saurav De Los Santos NP Procedure: Bone marrow aspirate and biopsy w/medications for | | anxiolysis Equipment Description: OnCiwi Product Tester Serial ID: [id number] | | Indications: 51 y.o. female with [...] needle was inserted with | | the OnCiwi ross carrier driver. The first aspirate was noted to have spicules and was submitted | | for morphology studies. A second aspirate was obtained in a heparinized syringe | | and submitted for FISH as per previous abnormalities, flow cytometry and | | cytogenetics. A total of 15 mL of bone marrow was aspirated. The OnControl 4 | | inch needle was advanced using the OnCiwi ross carrier driver. A core biopsy measuring | | [...] 24 to 48 hours. ELLIS BONE PA-C,NAOMY [facility] [address]K [address] | | [facility] Mailcode: Kpv13 [place] [address] [phone] | + + FLT3 ITD, BONE MARROW [...] clinical trial | | | | (CALGB 50345) has led to the FDA approval | | | | in July 2016 of the multitargeted kinase | | | | inhibitor midostaurin for the treatment of | | | | adult patients with newly diagnosed AML | | | | harboring either the FLT3-ITD or FLT3-TKD | | | | mutations (Shade Prado, Blood, 2017, | | | | 129:[phone]). The quantitative reporting | | | | [...] | | | characteristics determined by the [facility] | | | | [facility]. It has | | | [...] 1988 | | | | (CLIA). The [facility] | | | | Laboratories are fully licensed by the | | | | state [facility] under CLIA and are | | | | accredited by the [employer] | | | | Pathologists (CAP). Laboratory | | | | Director: Edy Vang M.D., | | | | Ph.D | | + + + + + + + | Specimen | Performing Laboratory | + + + | Bone marrow | [facility] [employer] [facility] [address] [facility] | | | [address] [place] [address] | + + + COMPREHENSIVE HEME PANEL SEQ, BONE MARROW (08/01/2017 3:04 PM) + + + + | Component | Value | Ref Range | + + + + | COMPREHENSIVE HEME | See Interpretation. | | | PANEL SEQ | | | + + + + | INTERPRETATION | [facility] Comprehensive Hem[facility] Sequencing: | | | | Mutation Screening by Next-Generation | | | | Sequencing Specimen ID: [id number] | | | | Type: Bone Marrow [...] | | | | (Tier I) Gene: KZY6Fltzbfq: | | | | p.S625wwbmxzGOTHBMOLMXMFDXJArynhaz allele | | | | frequency (VAF): 22%Variant allele ratio: | | | | 0.58 Variant ID: NAFLT3 (WLRY20429.1): | | | | c.1782_1783insGTGACCGGCTCCTCAGATAATGAGTACTT | | | | CTACGTTGATTTC; | | | | chr13:16174564H>TGAAATCAACGTAGAAGTACTCATTAT | | | | CTGAGGAGCCGGTCACLast Observed: 04/04/2017; | | | | Allele frequency: 0%03/03/2017; Allele | | | | frequency: 75%03/14/2016; Allele frequency: | | | | 0%02/15/2016; Allele frequency: 0% Gene: | | | | ZPSJ1YAiagaah: p.Z475GLagdcrc allele | | | | frequency (VAF): 16%Variant ID: | | | | [id number]; [id number], QCDC65340DBUW5D | | | | (UEZA44333.1):c.2644C>T; | | | | chr2:02410016O>ALast Observed: 04/04/2017; | | | | Allele frequency: 19%03/03/2017; Allele | | | | frequency: 46%03/14/2016; Allele frequency: | | | | 14%02/15/2016; Allele frequency: 45% Gene: | | | | GFF7Qxsfamh: p.W288fs*12Variant allele | | | | frequency (VAF): 14%Variant ID: | | | | [id number]; [id number] | | | | (EMKT9139.1):c.859_860insTCTG; | | | | chr5:974563504J>CTCTGLast Observed: | | | | 04/04/2017; Allele frequency: 0%03/03/2017; | | | | Allele frequency: 44%03/14/2016; Allele | | | | frequency: 0%02/15/2016; Allele frequency: | | | | 46% Variant(s) of Potential Clinical | | | | Significance (Tier II) Gene: HQ3Idgbuix: | | | | p.V362fs*69Variant allele frequency (VAF): | | | | 12%Variant ID: [id number] | | | | (BFKY20755.1):c.1083_1088TGTACG>GA; | | | | chr11:39738902TEJXFIT>CTCLast Observed: | | | | 04/04/2017; Allele [...] 2010; Gilda, | | | | Blood 115:46093, 2010). No targeted therapy | | | [...] | | | | | | | genes:QQU9ODCZAVLRMLHDSJW6NUJN5LABJW9RIU6YR | | | | WD5FVE19OKFNMS8SUCQ1SCJ2XXM7HCJXBSZEAIFWB07 | | | | MYEQI9XKESV4UYHGSGIZ0BSIP3IIDM05 | | | | Chromatin-modifying | | | | genes:BCSW6CUWFWQQS627ERL5OKC3BCOUCWNS62 | | | | DNA methylation-associated | | | | genes:LGRD6KXCE6RVF6DDY1 Engine Test Cell Technician | | | | factors:UVKJFOG8VGMPWJDAJISQFSB3CKOK1IUKP1R | | | | XUU7LX4DZGR6LZR6ZHPK1TSTWPOY1LAZT3YPFP1SSY6 | | | | Spliceosome-complex | | | | genes:IJFA3QG4E1T3ZS0EXVU4 Cohesion-complex | | | | genes:FYL4PYOK8STMS8MQT93 Tumor suppressor | | | | genes:CZ79VR4ORC5 and | | | | others:HGL8IUUQ1NHEY85RU59VQZO5RIJQD5TAQIEO | | | | NIY6WNVZOK5UNPJMQ30UJCST1 All the coding | | | | [...] multiplexed PCR (customized | | | | Gousto targeted DNA panel with molecular | | | | barcodes) and sequencing on an Illumina | | | | platform ([employer]). Sequencing data is | | | | [...] classification: Blood. 2016; | | | | 127(20):3806-061. 7.Catalogue Of Somatic | | | | Mutations In Cancer: | | | | http://cancer.julia.ac.uk/cosmic8.ClinVar: | | | | | | | | https://www.ncbi.nlm.nih.gov/clinvar/9.SHIRLEY- | | | | Clinical Knowledgebase (CKB): | | | | https://Novatekb.Neterion.org/10.Psychiatric: | | | | https://Beyond Gamingicdb.org/home | | + + + + | DISCLAIMER | This test was developed and its performance | | | | characteristics determined by the [facility] | | | | [employer]. It has | | | | not [...] 1988 | | | | (CLIA). The [facility] | | | | Laboratories are fully licensed by the | | | | state [facility] under CLIA and are | | | | accredited by the [employer] | | | | Pathologists (CAP). Laboratory | | | | Director: Edy Vang M.D., | | | | Ph.D | | + + + + + + + | Specimen | Performing Laboratory | + + + | Bone marrow | [facility] [address] | [address] [place] [address] | + + + GENETRAILS COMPREHENSIVE HEME [...] | | ------ COMPREHENSIVE | | HEME PANEL...[[id number]] Final | | result FLT3 ITD, BONE | | MARROW[[id number]] Final | | result Please view results for these tests on the | | individual orders. | + + LESS COMMON INDIVIDUAL FISH PROBES, BONE MARROW/CORE (08/01/2017 3:04 PM) + + + + | Component | Value | Ref Range | + + + + | PREVIOUS | Perez 5q EGR1 (5q31) (SO) / D5S23, Z5F103 | | | ABNORMALITIES PROBE | (5p15.2) () | | | NAME ONE | | | + + + + | CELLS SCORED PROBE | 200 | | | ONE | | | + + + + + + + | Specimen | Performing Laboratory | + + + | Bone marrow | [facility] [address] | | | [address] [place] [address] | + + + AML FISH PANEL, BONE MARROW/CORE (08/01/2017 3:04 PM) + +--------+ + | Component | Value | Ref Range | + +--------+ + | AML FISH PANEL | Normal | | + +--------+ + | CS METASYSTEMS | 200 | | | R1D395 (7Q31) (SO) / | | | | [...] SCORED PEREZ | 200 | | | AUVI5B9 (8Q21.3) | | | | (SO) / [...] CS METASYSTEMS | 200 | | | DEK(6P22)(SG)/TFU309 | | | | (9Q34)(SO)T(6;9)DC,D | | | + +--------+ + + + + | Specimen | Performing Laboratory | + + + | Bone marrow | [facility] [employer] [facility] [address] | | [address] [place] [address] | + + + CYTOGENETICS BONE MARROW [...] | | was made by the clinical elevator operator service. | | | | | | | [...] | | | characteristics determined by the [facility] | | | | Dorsey [...] 1988 | | | | (CLIA). The [facility] Chef[employer]ru | | | | Laboratories are fully licensed by the | | | | [facility] under CLIA and are | | | | accredited by the [employer] | | | | Pathologists (CAP). Laboratory | | | | Director: Edy Vang M.D., | | | | Ph.D Electronically reviewed and signed | | | | by:Kar Mckeon, PhD, [facility] | | | | Strip Winder Clinical Molecular | | | | Geneticist08/12/2017 at 8:15 AM Reviewed | | | | and electronically signed by OLIVIA | | | | MD RENAY,[facility]08/12/2017 2:19 PM | | + + + + + + + | Specimen | Performing Laboratory | + + + | Bone marrow | [facility] [address] | | | [address] [place] [address] | + + + LEUKEMIA/LYMPHOMA MARKERS - [...] characteristics | | | | determined by [employer]. It has | | | | not [...] + + + | Bone marrow | [facility] DEPARTMENT OF PATHOLOGY [address] | | | [place] [address] | + + + BRONCHOSCOPY WITH BRONCHOALVEOLAR [...] as fungal & bacterial PCR - see [employer] for pending labs. | | Cytology done [...] Laboratory | + + + | | [facility] RADIOLOGY VOICE RECOGNITION | + + + + + | Narrative | + + | EXAM: GA CHEST 1 VIEW 07/31/17 07:58:13 HISTORY: Post [...] Interface - 07/31/2017 9:02 AM PDT EXAM: GA CHEST 1 | | VIEW 04/04/18 07:58:13 [...] | + + + | Bronchoalveolar | [facility] LABORATORY SERVICES, CORE [address] | | lavage fluid - | [place] [address] | | Broncheoalveolar | | | Lavage [...] performed by : | | | | Merged with [facility] | | | | [address] [facility] | | | | [place] [address] | | + + + + + [...] characteristics determined by | | | | [employer]. See Compliance | | | | Statement B: ClauseMatch/CSPerformed by | | | | [employer],[address] [facility],[place] | | | | [phone] mog.[employer]ause[employer], Kelton | | | | MD Darren, Lab. Director | | + + + + | SOURCE, INF SER/PCR | BAL | | + + + + + + + | Specimen | Performing Laboratory | + + + | Bronchoalveolar | [facility] [address] [facility] | | lavage fluid - Lung | [facility] [place] [address] | + + + LEUKEMIA/LYMPHOMA MARKER - [...] non-specific staining. | | | | Antibodies LvgbplSV71 CD14 CD16 CD33 CD34 | | | [...] characteristics | | | | determined by [employer]. It has | | | | not [...] | + + + | Bronchoalveolar | [facility] DEPARTMENT OF PATHOLOGY [address] [facility] [address] | | lavage fluid - | [place] [address] | | Broncheoalveolar | | | Lavage | | + + + NON HOME STAGING SPECIALIST CYTOLOGY (07/31/2017 7:47 AM) + + + [...] + + | Fluid - Lung | [facility] DEPARTMENT OF PATHOLOGY [address] | | | [place] [address] | + + + CULTURE, BRONCHIAL LAVAGE (07/31/2017 7:46 AM) + + + | Specimen | Performing Laboratory | + + + | Bronchoalveolar | [facility] - [place] [address] [place], [place] | | lavage fluid - Lung | [address] | + + + + + | [...] | + + + | Bronchoalveolar | [facility] [place] [address] [place], [place] | | lavage fluid - Lung | [address] | + + + + + | Narrative | + + | Culture Report: No fungus isolated at 3 weeks. | + + NOCARDIA CULTURE, RULE OUT (07/31/2017 7:46 AM) + + + | Specimen | Performing Laboratory | + + + | Bronchoalveolar | [facility] [place] [address] [place], [place] | | lavage fluid - Lung | [address] | + + + + + | [...] | | | | radiographic imaging).Performed by [facility] | | | | Culture Kitchen,[address] [place] [address],[place] [address] | | | | [phone].ClauseMatch, Kelton Banks, | | | | Olive ANTUNEZ. Director | | + + + + + + + | Specimen | Performing Laboratory | + + + | Bronchoalveolar | [address] | | lavage fluid - Lung | [place] [address] | + + + + + | Narrative | + + | Test performed by [employer] [address] [place] [address] | | [phone] [email or web address].ClauseMatch | | | | | + + FLEXIBLE BRONCHOSCOPY (07/31/2017 7:32 AM) + + + | Specimen | Performing Laboratory | + + + | | [facility] BRONCHOSCOPY [facility] | + + + + + | Narrative | + + | Procedure Date: 07/31/2017 Patient Name: Rhea Hutchison Order #: [id number] | | Date of : 1965 CSN: [id number] Admit Type: Inpatient Room: OR | | Procedure: Bronchoscopy | | Indications: Diagnostic bronchoalveolar lavage, Bilateral | | infiltrate, Immune compromised with | | pneumonia, Abnormal CT scan of chest | | Providers: NIDHI FOWLER MD, ANTONINO YBARRA MD (Fellow), | | KAR DELGADO MD, SHERRY JOHN, [facility] | | Referring MD: ANTONINO [...] and soft palate visualized). | | - Dawn Protocol: | | - Pre-procedure Verification: Prior [...] by | | the physician and the plant technician/control room operator in the | | procedure room in [...] continuously. The Olympus | | BF-Q190 S/N [id number] bronchoscope was | | introduced through the [...] + + | Sputum - Lung | [place] [facility] [place] [address] [address] [facility] [place] | | | [address] | + + + + + | [...] | + + + | Blood | [facility] LABORATORY SERVICES, SPECIAL IMM + COAG [address] [facility] | | | [place] [address] | + + + + + | [...] | | | | characteristics determined by [facility] | | | | [facility]. See Compliance Statement B: | | | | ClauseMatch/CSPerformed by [facility] | | | | Formerly [facility],[address] [place] [address] | | | | [phone].ClauseMatch, Kelton Banks, | | | | , Lab. Director | | | |www.ClauseMatch, Kelton Bansk MD, Lab. Director | | + + + + + + + | Specimen | Performing Laboratory | + + + | Blood | [facility] [address] [facility] | | | [place] [address] | + + + CT CHEST WO [...] Laboratory | + + + | | [facility] RADIOLOGY VOICE RECOGNITION | + [...] verifies correct patient, | | procedure, equipment, phlebotomy support tech and site/side marked as required. CLABSI | [...] Arm area Cephalic vein. Catheter lot number: [id number] with a length of 55 cm | [...] | + + + | Blood | [facility] LABORATORY SERVICES, CORE [address] [place] [address] | | | [place] [address] | + + + CBC ONLY (07/23/2017 [...] | | ------ CBC (HEMOGRAM) | | ONLY[[id number]] Abnormal Final | | result Please view [...] | + + + | Blood | [facility] LABORATORY SERVICES, CORE [address] | | | [facility] [address] | + + + + + | [...] | + + + | Urine | [facility] LABORATORY SERVICES, CORE [address] [place] [address] | | | [place] [address] | + + + URINE SCREEN FOR [...] + + + | Urine | [facility], CORE [address] | | | [place], [place] [address] | + + + + + | [...] + | Blood - Blue port | [facility] [place] [address] [place], [place] | | lumen | [address] | + + + + + | [...] | + + + | Blood | [facility] LABORATORY SERVICES, CORE [address] [facility] [address] | | | [place] [address] | + + + APTT (ACT. PART. THROMBO TIME) (07/17/2017 11:47 PM) + + + + | Component | Value | Ref Range | + + + + | APTT | 37.5 (H) | 26.0 - 36.0 seconds | + + + + + + + | Specimen | Performing Laboratory | + + + | Blood | [facility] LABORATORY SERVICES, CORE [address] [place] [address] | | | [place] [address] | + + + + + | [...] + + | | [place] [facility] [place], POINT OF CARE TESTS [address] | | | [place] [address] | + + + RBC MORPHOLOGY (07/04/2017 [...] | + + + | Blood | [facility] LABORATORY SERVICES, CORE [address] | | | [place] [address] | + + + MANUAL DIFFERENTIAL (07/04/2017 [...] | + + + | Blood | [facility] LABORATORY [facility], CORE [address] | | | [place] [address] | + + + + + | [...] | >60 | >60 mL/min | | MOZAMBICAN | | | + + + + | EGFR NON | >60 | >60 mL/min | | -MOZAMBICAN | | | + + + + [...] | + + + | Blood | [facility], [address] | | | [place] [address] | + + + + + | [...] | + + + | Blood | [facility], [address] [facility] [address] | | | [place] [address] | + + + + + | [...] + + + + | URINE CULTURE [facility] | No growth (<1000 cfu/mL) after 24 hours | | + + + + + + + | Specimen | Performing Laboratory | + + + | Urine | [facility], [address] | | | [place] [address] | + + + UA, DIPSTICK ONLY [...] + | SPECIFIC GRAVITY | 1.021Comment: Specific [place] performed by | 1.005 - 1.030 | | | refractometry | | + + + + + + + | Specimen | Performing Laboratory | + + + | Urine | [facility], [address] | | | [place] [address] | + + + FLT3 ITD, BLOOD [...] clinical trial | | | | (CALGB [id number]) has led to the FDA approval | | | | in July 2016 of the multitargeted kinase | | | | inhibitor midostaurin for the treatment of | | | | adult patients with newly diagnosed AML | | | | harboring either the FLT3-ITD or FLT3-TKD | | | | mutations (Shade Prado, Blood, 2017, | | | | [id number]). The quantitative reporting | | | | [...] | | | characteristics determined by the [facility] | | | | [facility]. It has | | | [...] 1988 | | | | (CLIA). The [facility] | | | | Laboratories are fully licensed by the | | | | state [facility] under CLIA and are | | | | accredited by the [employer] | | | | Pathologists (CAP). Laboratory | | | | Director: Edy Vang M.D., | | | | Ph.D Reviewed and electronically signed | | | | by DEANGELO JOLLY MD,PhD3 12:00 | | | | PM | | + + + + + + + | Specimen | Performing Laboratory | + + + | Blood | [facility] [place] [address] [address] | | | [address] [place] [address] | + + + COMPREHENSIVE HEME PANEL [...] Sequencing Specimen ID: | | | | [id number] Type: BloodCollection | | | | Date: [...] | | bpVariant: | | | | p.E264itxcrcHJCGBOAYBSHIXZKAzgufci allele | | | | frequency (VAF): 71%Allelic ratio = 23FLT3 | | | | (RWQF65918.1):c.1782_1783insGTGACCGGCTCCTCA | | | | GATAATGAGTACTTCTACGTTGATTTC; | | | | chr13:54432523M>TGAAATCAACGTAGAAGTACTCATTAT | | | | CTGAGGAGCCGGTCACLast Observed: 04/04/2017; [...] | | | (Shade Esparzais, Blood, 2017, 129:0562-6444). | | | | The FLT3 kinase is also specific target of | | | | several other tyrosine kinase inhibitors | | | | that may be recruiting patients for | | | | clinical trials (including quizartinib, | | | | lestaurtinib, midostaurin, sorefenib, | | | | sunitinib, ponatinib, etc Gene: | | | | NMD9Pofmjpv: p.W288fs*12Variant allele | | | | frequency (VAF): 51%Variant ID: | | | | [id number]; [id number] | | | | (TLCI8611.1):c.859_860insTCTG; | | | | chr5:622515076M>CTCTGLast Observed: | | | | 04/04/2017; Allele frequency: 0%03/03/2017; | | | | Allele frequency: 44%03/14/2016; Allele | | | | frequency: 0%02/15/2016; Allele frequency: | | | | 46% Gene: VNUQ2UJjjzzdp: p.Z914QNasijxn | | | | allele frequency (VAF): 48%Variant ID: | | | | [id number]; [id number], JWRI93318DLQW2F | | | | (GSET04825.1):c.2644C>T; | | | | chr2:12067740Y>ALast Observed: 04/04/2017; | | | | Allele frequency: 19%03/03/2017; Allele | | | | frequency: 46%03/14/2016; Allele frequency: | | | | 14%02/15/2016; Allele frequency: 45% | | | | Variant(s) of Potential Clinical | | | | Significance (Tier II) Gene: OV5Zcnshbe: | | | | p.V362fs*69 (not detected in prior | | | | samples)Variant allele frequency (VAF): | | | | 41%Variant ID: WT1 | | | | (YKMK72223.1):c.1083_1088TGTACG>GA; | | | | chr11:18189536QIOZCOK>CTC The WT1 gene | | | | encodes a zinc-finger it application support analyst factor | | | | that plays [...] | | | 116(5):788-92, 2010; Gilda, Blood 115:49770, | | | | 2009). Case reviewed [...] | | | | | | | genes:GKQ3HTYIWWUYQLYEIOA7YOPZ4HROOU9YMF3NL | | | | PM8FIJ78NSGGYZ1ALQX9HXS9UGG3UPYQDHEXKPLIZ85 | | | | DNFJN5VANKR3RCVDKRQV8YCUG5ESBK04 | | | | Chromatin-modifying | | | | genes:RHQM6XLUIKZYC439SZQ0NTB7LCXSWEQP27 | | | | DNA methylation-associated | | | | genes:DJOF6QRIB4THQ1BIG9 Engine Test Cell Technician | | | | factors:FAXPYAN4VJQMICHEPBTFIXH8LXYF5TLDR2Z | | | | OML0TJ4NKGG2UEQ6OZYY4GHBIHQT8CIIT6ZUDP2KJJ6 | | | | Spliceosome-complex | | | | genes:GAMO5FU9S6G9HQ3KYIH5 Cohesion-complex | | | | genes:IHC4NAPI1IIRT3XPC06 Tumor suppressor | | | | genes:GD65GV9KJW2 and | | | | others:OVR1HTNY6ITVD45VK76BEBP8UDOTW8ORDOQK | | | | IXN0PVPWLI2QIJANY22DNVLJ7 All the coding | | | | [...] multiplexed PCR (customized | | | | [place]ousto targeted DNA panel with molecular | | | | barcodes) and sequencing on an Illumina | | | | platform (KsbbYph445). Sequencing data is | | | | [...] classification: Blood. 2016; | | | | 127(20):0044-492. 7.Catalogue Of Somatic | | | | Mutations In Cancer: | | | | http://cancer.julia.ac.uk/cosmic8.ClinVar: | | | | | | | | https://www.ncbi.nlm.nih.gov/clinvar/9.[facility]IRLEY- | | | | Clinical Knowledgebase (CKB): | | | | https://ckb.shirley.org/10.[facility]: | | | | https://civicdb.org/home | | + + + + | DISCLAIMER | This test was developed and its performance | | | | characteristics determined by the [facility] | | | | [facility]. It has | | | [...] 1988 | | | | (CLIA). The [facility] | | | | Laboratories are fully licensed by the | | | | [facility] under CLIA and are | | | | accredited by the [employer] | | | | Pathologists (CAP). Laboratory | | | | Director: Edy Vang M.D., | | | | Ph.D Reviewed and electronically signed | | | | by DEANGELO JOLLY MD,PhD3/ 4:49 | | | | PM | | + + + + + + + | Specimen | Performing Laboratory | + + + | Blood | [facility] [place] [address] | | [address] [place] [address] | + + + LEUKEMIA/LYMPHOMA MARKER - [...] MANUAL DIFFERENTIAL | | | | Order: [id number] - Part of Panel Order | | | | [id number] Collected: 06/29/2017 23:01 | | | | [...] characteristics | | | | determined by [employer]. It has | | | | not [...] | + + + | Blood | [facility] DEPARTMENT OF PATHOLOGY [address] | | | [place] [address] | + + + TRANSTHORACIC ECHOCARDIOGRAM, ADULT [...] Laboratory | + + + | | [facility] DEPT OF CARDIOLOGY [address] [place] [address] | | | [place] [address] | + + + + + | Narrative | + + | [facility] Adult Echocardiography Laboratory | | [address] [place] [address] Ph: | | Pt Name: RHEA HUTCHISON Study | | Date/Time 06/29/2017 / 3:49:49 PM | | Most recent prior: 03/04/2017 Acc #: [id number] No. previous | | echos: 2 : 1965 51 years Heart Rate: 107 bpm | | Height: 62.0 in Blood Pressure: 140/77 mm/Hg | | Weight: 199.0 lb Gender: F | | BSA: 1.91 m2 Order ID: [id number] | | Food Analyst: Nathaniel BRANTLEY Referring Provider: Sarah Katz Patient [...] Patient history has been obtained from the [facility] Transthoracic | | Echocardiographic Report | | [...] values Report electronically | | signed by: [id number] Hector Khoury MD (06/29/2017, 6:21:10 PM) Final | + + + + | Procedure Note | + + | Interface, Ecg Results - 06/29/2017 6:21 PM [facility] | | [facility] Echocardiography Laboratory [address] [place] [address] | | [place], [place] [address] Pt Name: RHEA HUTCHISON | | Study Date/Time 06/29/2017 / 3:49:49 PMMRN: [id number] [facility] | | recent prior: 03/04/2017Acc #: [id number] No. previous echos: 2DOB: | | 1965 51 years Heart Rate: 107 bpmHeight: 62.0 in Blood | | Pressure: 140/77 mm/HgWeight: 199.0 lb Gender: FBSA: | | 1.91 m2 Order ID: [id number] Food Analyst: Nathaniel Steele RCSReferring | | Provider: Sarah [...] Ao 3.20 16.8 | | (prox) cm mm/m0Cmbdvjtywk of chamber size and | | geometry is accomplished through the incorporation of linear, volumetric, and indexed | | values Report electronically signed by: [id number] Hector Khoury MD (06/29/2017, 6:21:10 | | [...] | | | |Report electronically signed by: [id number] Hector Khoury MD (06/29/2017, 6:21:10 PM) | [...] Note | + + | Service Account, SwiftPayMD(TM) by [employer] Res In Interface - 06/29/2017 7:16 PM [...] | + + + | | [facility] [address] [place] [address] | | | [place] [address] | + + + X-RAY PORTABLE CHEST TUBE OR CATH EVAL X-RAY (06/29/2017 8:20 AM) + + + | Specimen | Performing Laboratory | + + + | | [facility] VOICE RECOGNITION | + + + + + | Narrative | + + | EXAM: GA CHEST TUBE OR CATH EVAL X-RAY 06/29/17 [...] Note | + + | Service Account, SwiftPayMD(TM) by [employer] Res In Interface - 06/29/2017 11:21 AM PST EXAM: GA CHEST | | TUBE OR CATH EVAL [...] | + + + | Blood | [facility] SERVICES, CORE [address] | | | [place] [address] | + + + BMR/MUD PANEL (06/03/2017 [...] | ------ LIT HLA-A HIGH | | RES[[id number]] Final | | result LIT HLA-B HIGH | | RES[[id number]] Final | | result LIT HLA-C HIGH | | RES[[id number]] Final | | result LIT HLA-DR HIGH | | RES[[id number]] Final | | result LIT HLA-DQ HIGH | | RES[[id number]] Final | | result LIT HLA-DRB 3,4,5 HIGH | | RES[[id number]] Final | | result Please view results for these tests on the | | individual orders. | + + LIT HLA-DP HIGH RES (06/03/2017 1:47 PM) + + + | Specimen | Performing Laboratory | + + + | Blood | [facility] - IMMUNOGENETICS/TRANSPLANT LABORATORY [address] [place] [address] [address] | | | [address] [place] [address] | + + + LIT HLA-DRB 3,4,5 HIGH RES (06/03/2017 1:47 PM) + + + + | Component | Value | Ref Range | + + + + | LABEL ONLY - LIT | Please see lab report for result. | | + + + + + + + | Specimen | Performing Laboratory | + + + | Blood | [facility] - IMMUNOGENETICS/TRANSPLANT LABORATORY [address] | | | [address] [place] [address] | + + + LIT HLA-DQ HIGH RES (06/03/2017 1:47 PM) + + + | Specimen | Performing Laboratory | + + + | Blood | [facility] - IMMUNOGENETICS/TRANSPLANT LABORATORY [address] | | | [address] [place] [address] | + + + LIT HLA-DR HIGH RES (06/03/2017 1:47 PM) + + + | Specimen | Performing Laboratory | + + + | Blood | [facility] - IMMUNOGENETICS/TRANSPLANT LABORATORY [address] | | | [address] [place] [address] | + + + LIT HLA-C HIGH RES (06/03/2017 1:47 PM) + + + | Specimen | Performing Laboratory | + + + | Blood | [facility] LABOR[facility] [address] [place] [address] , | | | [address] [place] [address] | + + + LIT HLA-B HIGH RES (06/03/2017 1:47 PM) + + + | Specimen | Performing Laboratory | + + + | Blood | [facility] - IMMUNOGENETICS/TRANSPLANT LABORATORY [address] | | | [address] [place] [address] | + + + LIT HLA-A HIGH RES (06/03/2017 1:47 PM) + + + + | Component | Value | Ref Range | + + + + | LABEL ONLY - LIT | Please see lab report for result. | | + + + + + + + | Specimen | Performing Laboratory | + + + | Blood | [facility] - IMMUNOGENETICS/TRANSPLANT LABORATORY [address] , | | | [address] [address] | + + + from Last 3 Months
--- OUTSIDE RECORDS SUMMARY | ~2017-08-27 | XMS | Encounter Summary ---
Demographics + + + | Address | [address] | | | [place] [address] | + + + | Home Phone [...] Team Providers + +------+ + | Care Leg Assembler Name | Role | Phone | [...] [address] | | | | | | [place], [place] | | | | | | [address] | | | | | | [phone] | | | +--------+ + + + [...]
--- OUTSIDE RECORDS SUMMARY | ~2017-08-27 | XMS | Encounter Summary ---
Demographics + + + | Address | [address] | | | [place] [address] | + + + | Home Phone | | + + + | Preferred Language | Unknown | + + + | Marital Status | | + + + | Restorationism Affiliation | Unknown | + + + | Race | Unknown | + + + | Ethnic Group | Unknown | + + + Author + + + | Author | [facility] | | | and [place] | + + + | Organization | [facility] | | | and [place] | + + + | Address | Unknown | + + + | Phone | Unavailable | + + + Support + + + + + | Name | Relationship | Address | Phone | + + + + + | Jhony Hutchison | ECON | [address] [place] | | | | | [address] [place] | | | | | [address] | | + + + + + | Florin Pantoja | ECON | Unknown | | + + + + + Care Team Providers + +------+ + | Care Flake Or Shred Roll Operator Name | Role | Phone | + +------+ + | Saurav De Los Santos NP | PCP | | + +------+ + Encounter Details +--------+ + + + + | Date | Type | Department | Care Team | Description | +--------+ + + + + | 08/12/ | Hospital | [facility] | [place], | 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 She will [...] + + + | Product Code | [id number] | | + + + + | UNIT # | [id number] | | + + + + | UNIT ABO | O | | + + + + | UNIT RH | POS | | + + + + | Unit Status | Transfused | | + + + + | Blood Product ABORh | OPOS | | + + + + | Blood Product | [id number] | | | Expiration Date and | | | | Time | | | + + + + | Product Blood Type | 5100 | | | Barcode | | | + + + + + + + | Specimen | Performing Laboratory | + + + | Blood Product | [facility] [address] | | | [place] [address] | + + + Platelet Count (08/12/2017 [...] | + + + | Blood | [facility] - LAB[facility]ATORY [address] | | | [place] [address] | + + + Type and Screen [...] | + + + | Blood | [facility] [address] | | | [place] [address] | + + + in this encounter [...]
--- OUTSIDE RECORDS SUMMARY | ~2017-08-27 | XMS | Encounter Summary ---
Demographics + + + | Address | [address] | | | [place] [address] | + + + | Home Phone | | + + + | Preferred Language | Unknown | + + + | Marital Status | | + + + | Church Affiliation | NON | + + + [...] Team Providers + +------+ + | Care Wired Music Operator Name | Role | Phone | [...] [address] | | | | | | [place], [place] | | | | | | [address] | | | | | | [phone] | | | +--------+ + + + [...]
--- OUTSIDE RECORDS SUMMARY | ~2017-08-27 | XMS | Encounter Summary ---
Demographics + + + | Address | [address] | | | [place] [address] | + + + | Home Phone | | + + + | Preferred Language | Unknown | + + + | Marital Status | | + + + | Temple Affiliation | Unknown | + + + | Race | Unknown | + + + | Ethnic Group | Unknown | + + + Author + + + | Author | [facility] | | | and [place] | + + + | Organization | [facility] | | | and [place] | + + + | Address | Unknown | + + + | Phone | Unavailable | + + + Support + + + + + | Name | Relationship | Address | Phone | + + + + + | Jhony Hutchison | ECON | [address] [place] | | | | | [address] [place] | | | | | [address] | | + + + + + | Florin Pantoja | ECON | Unknown | | + + + + + Care Team Providers + +------+ + | Care Expert Medical Writer Name | Role | Phone | + [...] [place], | | | | | | [place] [address] | | | | | | [phone] | | | +--------+ + + + [...]
--- OUTSIDE RECORDS SUMMARY | ~2017-08-27 | XMS | Encounter Summary ---
Demographics + + + | Address | [address] | | | [place] [address] | + + + | Home Phone | | + + + | Preferred Language | Unknown | + + + | Marital Status | | + + + | Mosque Affiliation | NON | + + + [...] Providers + +------+ + | Care Steel Fitter Name | Role | Phone | + [...] | | | | | | [place], | | | | | | [place] [address] | | | | | | [phone] | | | +--------+ + + + [...]
--- OUTSIDE RECORDS SUMMARY | ~2017-08-27 | XMS | Encounter Summary ---
Demographics + + + | Address | [address] | | | [place] [address] | + + + | Home Phone | | + + + | Preferred Language | Unknown | + + + | Marital Status | | + + + | Judaism Affiliation | NON | + + + | Race | White | + + + | Ethnic Group | Not or | + + + Author + + + | Author | [facility] | + + + | Organization | [facility] | + + + | [...] Team Providers + +------+ + | Care Academic Affairs Dean Name | Role | Phone | + [...] Rd | | | | | | [place], [place] | | | | | | [address] | | | | | | [phone] | | | +--------+ + + + [...]
--- OUTSIDE RECORDS SUMMARY | ~2017-08-27 | XMS | Encounter Summary ---
Demographics + + + | Address | [address] | | | [place] [address] | + + + | Home Phone [...] Team Providers + +------+ + | Care Radiation Control Worker Name | Role | Phone | [...] Typing - Family | | | | [facility] | [address] | Results ) | | | | Mailcode: PP262 | [place], [place] | | | | | [address] | [address] | | | | | [address] [place], | [phone] | | | | | [place] [address] | | | | | | [phone] | | | +--------+ + + + [...]
--- OUTSIDE RECORDS SUMMARY | ~2017-08-27 | XMS | Encounter Summary ---
Demographics + + + | Address | [address] | | | [place] [address] | + + + | Home Phone | | + + + | Preferred Language | Unknown | + + + | Marital Status | | + + + | Confucianism Affiliation | NON | + + + [...] Providers + +------+ + | Care Rn L And D Name | Role | Phone | + [...] Rd | | | | | | [place], [place] | | | | | | [address] | | | | | | [phone] | | | +--------+ + + + [...]
--- OUTSIDE RECORDS SUMMARY | ~2017-08-27 | XMS | Encounter Summary ---
Demographics + + + | Address | [address] | | | [place] [address] | + + + | Home Phone | | + + + | Preferred Language | Unknown | + + + | Marital Status | | + + + | Oriental Orthodox Affiliation | Unknown | + + + | Race | Unknown | + + + | Ethnic Group | Unknown | + + + Author + + + | Author | [facility] | | | and [place] | + + + | Organization | [facility] | | | and [place] | + + + | Address | Unknown | + + + | Phone | Unavailable | + + + Support + + + + + | Name | Relationship | Address | Phone | + + + + + | Jhony Hutchison | ECON | [address] | | | | | [address] [place] | | | | | [address] | | + + + + + | Florin Pantoja | ECON | Unknown | | + + + + + Care Team Providers + +------+ + | Care Scale Adjuster Name | Role | Phone | + [...] | 06/03/ | Refill | [facility] | [place], | Medication Refill | | 2018 | | MED CTR MEDICAL | Daniel French MD [address] | | | | | ONCOLOGY CL[facility] [address] | [facility] | | | | | [address] [facility] | [place] [address] | | | | | [place] [address] | [phone] | | | | | [phone] | | | +--------+--------+ + + + [...]
--- OUTSIDE RECORDS SUMMARY | ~2017-08-27 | XMS | Encounter Summary ---
Demographics + + + | Address | [address] | | | [place] [address] | + + + | Home Phone | | + + + | Preferred Language | Unknown | + + + | Marital Status | | + + + | Zoroastrianism Affiliation | Unknown | + + + | Race | Unknown | + + + | Ethnic Group | Unknown | + + + Author + + + | Author | [facility] | | | and [place] | + + + | Organization | [facility] | | | and [place] | + + + | Address | Unknown | + + + | Phone | Unavailable | + + + Support + + + + + | Name | Relationship | Address | Phone | + + + + + | Jhony Hutchison | ECON | [address] [place] | | | | | [address] [place] | | | | | [address] | | + + + + + | Florin Pantoja | ECON | Unknown | | + + + + + Care Team Providers + +------+ + | Care Binder Stripper Hand Name | Role | Phone | + +------+ + | Saurav De Los Santos NP | PCP | | + +------+ + Encounter Details +--------+ + + + + | Date | Type | Department | Care Team | Description | +--------+ + + + + | 08/12/ | Hospital | [facility] | [place], | 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 [...] + + + | Product Code | [id number] | | + + + + | UNIT # | [id number] | | + + + + | UNIT ABO | O | | + + + + | UNIT RH | POS | | + + + + | Unit Status | Transfused | | + + + + | Blood Product ABORh | OPOS | | + + + + | Blood Product | [id number] | | | Expiration Date and | | | | Time | | | + + + + | Product Blood Type | 5100 | | | Barcode | | | + + + + + + + | Specimen | Performing Laboratory | + + + | Blood Product | [facility] [address] | | | [place] [address] | + + + Platelet Count (08/12/2017 [...] | + + + | Blood | [facility] [address] | | | [place] [address] | + + + Type and Screen [...] | + + + | Blood | [facility] [address] | | | [place] [address] | + + + in this encounter [...]
--- OUTSIDE RECORDS SUMMARY | ~2017-08-27 | XMS | Encounter Summary ---
Demographics + + + | Address | [address] | | | [place] [address] | + + + | Home Phone | | + + + | Preferred Language | Unknown | + + + | Marital Status | | + + + | Buddhist Affiliation [...] Hutchison | ECON | [address] | | | | | [address] [place] | | | | | [address] | | + + + + + | Florin Pantoja | ECON | Unknown | | + + + + + Care Team Providers + +------+ + | Care Special Events Coordinator Name | Role | Phone | [...] + + | 06/26/ | Hospital | [facility] | Leonardo, | AML (acute myeloid | | 2018 - | Encounter | [facility] | Manuel French MD [address] | leukemia) in relapse | | | | [address] [place] | [address] [place] | (HCC) | | 03/02/ | | [place] [address] | [place] [address] | | | 2017 | | [phone] | [phone] | | | | | | | | | | | | Kar Delgado | | | | | | Horacio Malik MD | | | | | | [address] | | | | | | [id number] | | | | | | [place] [address] | | | | | | [phone] | | | | | | | [...] fro m the original. Hematology/Oncology Transfer Note [place], [place] Pt. Name/Age/: Rhea Hutchison 51 y.o. 1965 Med. Record Number: [id number] Date of admission: 06/26/2017 Date of Transer: 06/28/17 Accepting Facility: [facility], Unit 14K, bed 11 Accepting provider; Dr. Salomón Delgado. The patient's primary care provider is Saurav De Los Santos NP. Identifying Statement: Rhea Hutchison is a 51 y.o. female from [address] [place] [address] with Second Relapse of Acute Myelogenous Leukemia. [...] first complete remission. 1. Presentation to the [facility] emergency room in [facility] on January 272015 with complaints of cough and odynophagia. Complete blood count was notable for a wh ite count of 117,000, hemoglobin 10.7 g/dL, platelet count of 51,000. She was emergently tr ansferred to the [facility] were bone marrow biopsy and aspiration at [facility] on February 15, 2016 confirmed acute [...] Cycle#1 MiDaC (1500 mg/m Cytarabine) consolidation at [facility] on March 27, 2016. 4. Cycle#2 MiDaC (1500 mg/m Cytarabine) consolidation at [facility] on May 01, 2016. 5. Cycle#3 MiDaC (1200 mg/m Cytarabine) consolidation at [facility] on May 28, 2016. 6. Cycle#4 MiDaC (1000 mg/m Cytarabine ) consolidation at [facility] on June 25, 2016. 7. Bone Marrow Biopsy and Aspiration July 23, 2016 at the [facility] in [place], [place] specimen # [id number] demonstrated ongoing complete remissio n. Molecular analysis [...] Hgb 13.8, Hct 41.8%, Platelet count 10,000. [id number] U/L, BUN 14 mg/dL, Scr 0.82 mg/dL. 14. Admit [facility], [facility] 03/01/2017; Chest X-ray consis tent with pulmonary leukostasis. Hydroxyurea 2 grams po q 4 hours x 3 doses with no change i n WBC. 15. Transfer to [facility]; bone marrow biopsy and aspiration were [...] #1 of high-dose cytarabine consolidation at the [facility] on March 26, 2016. 19. Cycle #2 of cytarabine consolidation at the [facility] on Apr. 20. Cycle #3 of cytarabine consolidation at the [facility] in [place], [place], May 28, 2016. 21. Cycle #4 of cytarabine consolidation chemotherapy at the [facility] in [place], [place], June 25, 2016. 22. Repeat bone marrow biopsy and aspiration on July 23, 2016, at the [facility] in [place], [place], specimen #[id number] demonstrating ongo ing complete remission. Molecular analysis [...] tap) June 21, 2017 ([facility] BM-18-0 46794); 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 myelogenous leukemia (60%); Blasts po sitive for CD117 and CD 33, negative for CD34, CD71, CD61, CD3 and PAX-5. Current Assessment & Plan Rhea Hutchison was admitted on June 26, 2017 for management of her second relapse o f acute myelogenous leukemia. Extended bedside encounter with Rhea and her , Jhony, with included communications with [facility] provider Denisha Reno (covering for Salomón Delgado MD) as well as two communicat ions with the [facility] transfer center . Communications were made slightly more co mplicated by the fact that Rhea reported finding her certificate 10 days ago and dis covered that her birthday is actually [birth year]. This was corrected in the [facility] electronic r ecord, however Rhea is still listed as 61 in the [facility] electronic record. I notif ied both Toshia Salinas RN at [facility] and the [facility] transfer center of this issue. Dr. Salomón Delgado has accepted Rhea Hutchison as the attending physician for hospital t o hospital transfer to [facility] when a bed is available on [...] Relapsed acute myelogenous leukemia. Plan; Transfer to [facility], Unit 14K, Bed 11. Dr. Salomón [...] of lungs Hypothyroidism Insomnia Leukemia in remission ([facility]) Posttraumatic stress disorder Right buttock pain 12/12/2016 Sciatica Thyroid disorder Past Surgical History: Procedure Laterality Date BONE MARROW BIOPSY N/A 07/23/2016 Procedure: BIOPSY / ASPIRATION BONE MARROW; Surgeon: Manuel Springer MD; Location: [facility] SHORT STAY CARPAL TUNNEL RELEASE 2004 [facility]; [facility] CHOLECYSTECTOMY 06/2013 [facility]; [facility]. JOINT REPLACEMENT 01/2014 Knee replacement KNEE ARTHROPLASTY Right 01/2014 [facility]; [facility]. PARTIAL HYSTERECTOMY 1989 [facility]; [facility]. Social History Social History [...] Latest Ref Range: Clear Hazy (A) Specific [place] Latest Ref Range: 1.001 - 1.030 1.017 [...] this chart may have been created with ShareThis voice recognition software. Occasi onal wrong-word or [...] [facility] [place] Pt. Name/Age/: Rhea Hutchison 51 y.o. 1965 Med. Record Number: [id number] Date of admission: 06/26/2017 Today's Date: 06/28/17 Location: [address] [place] [address] The patient's primary care provider is Saurav De Los Santos NP. Identifying Statement: Rhea Hutchison is a 51 y.o. female from [address] [place] [address] with a second relapse of acute myelogenous [...] first complete remission. 1. Presentation to the [facility] emergency room in [facility] on January 272015 with complaints of cough and odynophagia. Complete blood count was notable for a wh ite count of 117,000, hemoglobin 10.7 g/dL, platelet count of 51,000. She was emergently tr ansferred to the [facility] [place] were bone marrow biopsy and aspiration at [facility] on February 15, 2016 confirmed acute [...] Cycle#1 MiDaC (1500 mg/m Cytarabine) consolidation at [facility] on March 27, 2016. 4. Cycle#2 MiDaC (1500 mg/m Cytarabine) consolidation at [facility] on May 01, 2016. 5. Cycle#3 MiDaC (1200 mg/m Cytarabine) consolidation at [facility] on May 28, 2016. 6. Cycle#4 MiDaC (1000 mg/m Cytarabine ) consolidation at [facility] on June 25, 2016. 7. Bone Marrow Biopsy and Aspiration July 23, 2016 at the [facility] in [place], [place] specimen # [id number] demonstrated ongoing complete remissio n. Molecular analysis [...] Hgb 13.8, Hct 41.8%, Platelet count 10,000. [id number] U/L, BUN 14 mg/dL, Scr 0.82 mg/dL. 14. Admit [facility] 03/01/2017; Chest X-ray consis tent with pulmonary leukostasis. Hydroxyurea 2 grams po q 4 hours x 3 doses with no change i n WBC. 15. Transfer to [facility]; bone marrow biopsy and aspiration were [...] #1 of high-dose cytarabine consolidation at the [facility] on March 26, 2016. 19. Cycle #2 of cytarabine consolidation at the [facility] on Apr. 20. Cycle #3 of cytarabine consolidation at the [facility] in [place], [place], May 28, 2016. 21. Cycle #4 of cytarabine consolidation chemotherapy at the [facility] in [place], [place], June 25, 2016. 22. Repeat bone marrow biopsy and aspiration on July 23, 2016, at the [facility] in [place], [place], specimen #[id number] demonstrating ongo ing complete remission. Molecular analysis [...] tap) June 21, 2017 ([facility] BM-18-0 36050); 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 myelogenous leukemia (60%); Blasts po sitive for CD117 and CD 33, negative for CD34, CD71, CD61, CD3 and PAX-5. Current Assessment & Plan Rhea Hutchison was admitted on June 26, 2017 for management of her second relapse o f acute myelogenous leukemia. Extended bedside encounter with Rhea and her , Jhony, with included communications with [facility] provider Denisha Reno (covering for Salomón Delgado MD) as well as two communicat ions with the [facility] transfer center . Communications were made slightly more co mplicated by the fact that Rhea reported finding her certificate 10 days ago and dis covered that her birthday is actually 61. This was corrected in the [facility] electronic r ecord, however Rhea is still listed as 61 in the [facility] electronic record. I notif ied both Toshia Salinas RN at [facility] and the [facility] transfer center of this issue. Dr. Salomón Delgado has accepted Rhea Hutchison as the attending physician for hospital t o hospital transfer to [facility] when a bed is available on either the 14th or 13th floor. Commun ications with the [facility] transfer center and Dr. Denisha Reno confirm that there are no beds av ailable at [facility] today. Dr. Reno was updated on [...] Care discussed with Dr. Denisha Reno at [facility] (covering for Dr. Delgado, who has accep sharon patient in transfer). Patient will receive hydroxyurea 2000 mg orally twice a day today. She will otherwise carlita nue on full supportive care with fluids, antibiotics, antifungals, anti-virals and blood pro ducts until a bed is available for her at [facility]. The overall treatment plan in to [...] Chronic constipation COPD (chronic obstructive pulmonary disease) ([facility]) Depression Hyperinflation of lungs Hypothyroidism Insomnia Leukemia in remission ([facility]) Posttraumatic stress disorder Right buttock pain 12/12/2016 Sciatica Thyroid disorder Past Surgical History: Procedure Laterality Date BONE MARROW BIOPSY N/A 07/23/2016 Procedure: BIOPSY / ASPIRATION BONE MARROW; Surgeon: Manuel Springer MD; Location: [facility] SHORT STAY CARPAL TUNNEL RELEASE 2004 [facility]; [facility] CHOLECYSTECTOMY 06/2013 [facility]; [facility]. JOINT REPLACEMENT 01/2014 Knee replacement KNEE ARTHROPLASTY Right 01/2014 [facility]; [facility]. PARTIAL HYSTERECTOMY 1989 [facility]; [facility]. Social History Social History Marital status: [...] this chart may have been created with ShareThis voice recognition software. Occasi onal wrong-word or [...] from the original. Hematology/Oncology Daily Progress Note [facility] [place] Pt. Name/Age/: Rhea Hutchison 51 y.o. 1965 Med. Record Number: [id number] Date of admission: 06/26/2017 Today's Date: 06/27/17 Location: [address] [place] [address] The patient's primary care provider is Saurav De Los Santos NP. Identifying Statement: Rhea Hutchison is a 51 y.o. female from [address] [place] [address] with a second relapse of acute myelogenous [...] first complete remission. 1. Presentation to the [facility] emergency room in [facility] on January 272015 with complaints of cough and odynophagia. Complete blood count was notable for a wh ite count of 117,000, hemoglobin 10.7 g/dL, platelet count of 51,000. She was emergently tr ansferred to the [facility] were bone marrow biopsy and aspiration at [facility] on February 15, 2016 confirmed acute [...] Cycle#1 MiDaC (1500 mg/m Cytarabine) consolidation at [facility] on March 27, 2016. 4. Cycle#2 MiDaC (1500 mg/m Cytarabine) consolidation at [facility] on May 01, 2016. 5. Cycle#3 MiDaC (1200 mg/m Cytarabine) consolidation at [facility] on May 28, 2016. 6. Cycle#4 MiDaC (1000 mg/m Cytarabine ) consolidation at [facility] on June 25, 2016. 7. Bone Marrow Biopsy and Aspiration July 23, 2016 at the [facility] in [place], [place] specimen # [id number] demonstrated ongoing complete remissio n. Molecular analysis [...] Hgb 13.8, Hct 41.8%, Platelet count 10,000. [id number] U/L, BUN 14 mg/dL, Scr 0.82 mg/dL. 14. Admit [facility] 03/01/2017; Chest X-ray consis tent with pulmonary leukostasis. Hydroxyurea 2 grams po q 4 hours x 3 doses with no change i n WBC. 15. Transfer to [facility]; bone marrow biopsy and aspiration were [...] #1 of high-dose cytarabine consolidation at the [facility] on March 26, 2016. 19. Cycle #2 of cytarabine consolidation at the [facility] on Apr. 20. Cycle #3 of cytarabine consolidation at the [facility] in [place], [place], May 28, 2016. 21. Cycle #4 of cytarabine consolidation chemotherapy at the [facility] in [place], [place], June 25, 2016. 22. Repeat bone marrow biopsy and aspiration on July 23, 2016, at the [facility] in [place], [place], specimen #[id number] demonstrating ongo ing complete remission. Molecular analysis [...] tap) June 21, 2017 ([facility] BM-18-0 43838); 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 myelogenous leukemia (60%); Blasts po sitive for CD117 and CD 33, negative for CD34, CD71, CD61, CD3 and PAX-5. Current Assessment & Plan Rhea Hutchison was admitted on June 26, 2017 for management of her second relapse o f acute myelogenous leukemia. Extended bedside encounter with Rhea and her , Jhony, with included communications from [facility] providers Renea Bell MD, Salomón Delgado MD and Toshia Salinas RN , as well as two communications with the [facility] transfer center . Communications were made slightly more complicated by the fact that Rhea reported finding her cert ificate nine days ago and discovered that her birthday is actually 61. This was correc sharon in the [facility] electronic record, however Rhea is still listed as 61 in the [facility] electronic record. I notified both Toshia Salinas RN and the [facility] transfer center of this i ssue. Dr. Salomón Delgado has accepted Rhea Hutchison as the attending physician for hospital t o hospital transfer to [facility] when a bed is available on [...] BONE MARROW; Surgeon: Manuel Springer MD; Location: [facility] SHORT STAY CARPAL TUNNEL RELEASE 2004 [facility]; [facility] CHOLECYSTECTOMY 06/2013 [facility]; [facility]. JOINT REPLACEMENT 01/2014 Knee replacement KNEE ARTHROPLASTY Right 01/2014 [facility]; [facility]. PARTIAL HYSTERECTOMY 1989 [facility]; [facility]. Social History Social History Marital status: [...] Latest Ref Range: Clear Hazy (A) Specific [place] Latest Ref Range: 1.001 - 1.030 1.017 [...] this chart may have been created with ShareThis voice recognition software. Occasi onal wrong-word or [...] | Miscellaneous Lab | COMMENTComment: Test Ordered: [id number] | | | Test Result | IDH1/IDH2 [...] amino | | | | acids 140 plj403 of | | | | IDH2.Method | [...] in IDH1 and | | | | [id number]: R100Q, R100L, R100P, R132C, | | | | R132S, R132G, R132H, R132L, | | | | R132P, R132V, | | | | [id number]: R172K, R172M, R172T, R172W, | | | | R172G, R172S, R140G, R140W, | | | | R140L, R140Q, | | | | [id number] | | | | | | | [...] | | [email or web address]://www.fda.gov/Drugs/InformationonDrug | | | | [email or web address] | | | | Review Comme | | | | nt | | | | 01 Jacque Levy, PhD, | | | | [facility] Director, | | | | Molecular | | | | Genetics | | | | [facility] | | | | Molecular | | | | Biology and | | | | Pathology | | | | [facility], | | | | [place] | | | | [phone] | | | | Performed TNP | | | | 02 Test not | | | | performed | | + + + + + + + | Specimen | Performing Laboratory | + + + | Blood - Peripheral | [place] [place] [facility] [place] [address] [facility] | | Blood | [place], [place] [address] | + + + + + | Narrative | + + | Performed at: 03 - [facility] [address] [id number] | | Mud Trucker: Anish Anderson MD, Phone: [phone] | + + Slide Review, Peripheral Smear [...] + + + | Blood | [facility] [address] | | | [place] [address] | + + + + + | [...] | + + + | Blood | [facility] [address] | | | [place] [address] | + + + Phosphorus (06/28/2017330) + +-------+ + | Component | Value | Ref Range | + +-------+ + | PHOSPHORUS | 3.5 | 2.5 - 4.6 mg/dL | + +-------+ + + + + | Specimen | Performing Laboratory | + + + | Blood | [facility] [address] | | | [place] [address] | + + + Basic Metabolic Panel [...] GLOMERULAR FILTRATION | >=60 mL/min/1.73m2 | | EMIRATI | RATE,ESTIMATED mL/min/1.14u0Omvo than | | | | 60 Chronic [...] | + + + | Blood | [facility] [address] | | | [place] [address] | + + + CBC with Differential [...] | + + + | Blood | [facility] [address] | | | [place] [address] | + + + Urinalysis with Microscopic [...] | + + + + | Specific [place] | 1.017 | 1.001 - 1.030 | [...] + + + | Urine | [facility] [address] | | | [place] [address] | + + + Extra Blood Bank Tube (06/26/2017 1700) + + + + | Component | Value | Ref Range | + + + + | Hold BB | Hold Specimen | | + + + + + + + | Specimen | Performing Laboratory | + + + | Blood | [facility] [address] | | | [place] [address] | + + + Wei, Manual (06/26/2017 [...] | + + + | Blood | [facility] [address] | | | [place] [address] | + + + Phosphorus (06/26/2017 1648) + +-------+ + | Component | Value | Ref Range | + +-------+ + | PHOSPHORUS | 2.7 | 2.5 - 4.6 mg/dL | + +-------+ + + + + | Specimen | Performing Laboratory | + + + | Blood | [facility] [address] | | | [place] [address] | + + + Uric Acid (06/26/2017 1648) + +-------+ + | Component | Value | Ref Range | + +-------+ + | URIC ACID | 7.1 | 2.6 - 7.2 mg/dL | + +-------+ + + + + | Specimen | Performing Laboratory | + + + | Blood | [facility] [address] | | | [place] [address] | + + + CBC with Differential [...] + + + | Blood | [facility] [address] | | | [place] [address] | + + + Basic Metabolic Panel [...] GLOMERULAR FILTRATION | >=60 mL/min/1.73m2 | | EMIRATI | RATE,ESTIMATED mL/min/1.79o8Yljg than | | | | 60 Chronic [...] | + + + | Blood | [facility] [address] | | | [place] [address] | + + + in this encounter [...]
[~2017-08-27 00:55] MED LIST changes: +CLARITIN10 M2 PO; +KLOR-CON 1010 MEQ PO; +LEVAQUIN500 MG PO; +MEGACE ES625 MG/5 M PO; +NEXAVAR200 MG PO
[2017-08-27] MEDS ORDERED: OXYCODONE H5 MG/5 ML PO (09:27)
[2017-08-27] MEDS ORDERED: LORAZEPAM INT2 MG/ML PO (09:28)
[2017-08-27] MEDS ORDERED: HALOPERIDOL2 MG/1 ML PO (09:30)
[2017-08-27] MEDS ORDERED: NYSTATIN100000 UN1 PO (09:31)
== END 2017-08-27 09:20 ==
LOC: ED 00:55 → MS 00:56
PROVIDERS: ADMIT Internal Medicine
DX: A41.9 Sepsis, unspecified organism (principal); J15.9 Unspecified bacterial pneumonia; R65.20 Severe sepsis without septic shock; Z51.5 Encounter for palliative care; N17.9 Acute kidney failure, unspecified; C92.02 Acute myeloblastic leukemia, in relapse; R40.2432 Glasgow coma scale score 3-8, at arrival to emergency department; E03.9 Hypothyroidism, unspecified; F41.8 Other specified anxiety disorders; F42.9 Obsessive-compulsive disorder, unspecified; F43.10 Post-traumatic stress disorder, unspecified; J44.0 Chronic obstructive pulmonary disease with (acute) lower respiratory infection; Z87.891 Personal history of nicotine dependence; Z88.5 Allergy status to narcotic agent; Z79.891 Long term (current) use of opiate analgesic; Z79.899 Other long term (current) drug therapy
CPT/HCPCS: 51702; 71045; 80053; 83605; 85025; 85610; 85730; 87040; 87077; 87181; 87186; 96361; 96365; 96366; 96375; 99285; G0378; J0131; J0692; J1170; J2060; J7030